=== PATIENT | male | born 1950 | race Caucasian/White ===

== ENCOUNTER 2017-10-23 15:07 | Observation (INO) | payer OTHER ==
[~2017-10-23] VITALS: Ht 180.3 cm; Wt 133.0 kg
[~2017-10-23 15:07] MED LIST: ASPEC325 PO; HYDR-3714 PO; IPRA1AER2 INH; METH500T37 PO; TAMS0.4C38 PO; TEMA30CA4 PO
--- NOTE | 2017-10-23 15:58 | DIAGNOSTIC IMAGING REPORT ---
CHEST ONE VIEW PORTABLE CLINICAL HISTORY: Atypical chest pain COMPARISON STUDY: 08/13/2015 FINDINGS: The heart is mildly enlarged. There is no focal pulmonary consolidation. Slight interstitial prominence is likely accentuated by the patient's large body habitus. There is no overt failure. There are no pleural effusions.[ IMPRESSION: Technically limited study due to the patient's large body habitus. No acute findings. Electronically signed by: Benitez Givens M.D. 10/23/2017 3:57 PM Dictated Date/Time: 10/23/2017 3:56 PM
[2017-10-23 16:03] LABS: BASO % 0.2 %; BASO ABS # 0.01 K/uL (0-0.2); EOS % 2.3 %; EOS ABS # 0.14 K/uL (0-0.5); HEMATOCRIT 43.6 % (42-52); HEMOGLOBIN 14.8 g/dL (14.0-18.0); IG# 0.01 K/uL (0.00-0.02); LYMPH % 30.2 %; LYMPH ABS # 1.87 K/uL (1.2-3.4); MEAN CORPUSCULAR HEMOGLOBIN 31.2 pg (25-34); MEAN CORPUSCULAR HGB CONC 33.9 g/dl (32-36); MEAN PLATELET VOLUME 11.4 fL (7.4-10.4); MONO % 8.1 %; NEUT ABS # 3.66 K/uL (1.4-6.5); PLATELET COUNT 179 K/uL (130-400); RED CELL DISTRIBUTION WIDTH CV 14.1 % (11.5-14.5); RED CELL DISTRIBUTION WIDTH SD 47.6 fL (36.4-46.3); WHITE BLOOD COUNT 6.19 K/uL (4.8-10.8)
[2017-10-23 16:21] LABS: BLOOD UREA NITROGEN 14 mg/dl (7-18); CALCIUM 8.6 mg/dl (8.5-10.1); CARBON DIOXIDE 26 mmol/L (21-32); GLUCOSE 87 mg/dl (70-99); POTASSIUM 4.2 mmol/L (3.5-5.1); SODIUM 138 mmol/L (136-145)
[2017-10-23 16:26] LABS: CKMB 2.1 ng/ml (0.5-3.6)
[2017-10-23] MEDS ORDERED: ALUMINUM/MAGNESIUM/SIMETH (MAALOX MAX) 30 ML UDC PO PRN (17:30)
[2017-10-23] MEDS ORDERED: ONDANSETRON INJ 2 MG/ML 2 ML VIAL IV PRN (17:30)
[2017-10-23] MEDS ORDERED: NITROGLYCERIN 0.4 MG SL PER TAB CHARGE SL PRN (17:30)
[2017-10-23] MEDS ORDERED: POLYETHYLENE (MIRALAX) 17 GM PACK PO PRN (17:30)
[2017-10-23] MEDS ORDERED: MAGNESIUM HYDROXIDE SUSP 30 ML UDC PO PRN (17:30)
[2017-10-23] MEDS ORDERED: ACETAMINOPHEN 325 MG TAB PO PRN (17:30)
[2017-10-23] MEDS ORDERED: METH500T PO (17:56)
[2017-10-23] MEDS ORDERED: ALBU18002 INH (17:56)
[2017-10-23] MEDS ORDERED: NYSS/ PO (17:56)
[2017-10-23] MEDS ORDERED: TRAM-10 PO (17:56)
[2017-10-23] MEDS ORDERED: IPRASOL4 INH (17:56)
[2017-10-23] MEDS ORDERED: ALBUT/IPRATROP 3MG/0.5MG NEB 3 ML VIAL INH PRN (18:00)
[2017-10-23] MEDS ORDERED: TRAMADOL HCL 50 MG TAB PO PRN (18:00)
[2017-10-23] MEDS ORDERED: METHOCARBAMOL 500 MG TAB PO PRN (18:00)
[2017-10-23] MEDS ORDERED: ALBUTEROL HFA 8 GM INHALER INH PRN (18:00)
[2017-10-23] MEDS ORDERED: FUROSEMIDE 40 MG TAB PO ONE (18:00)
--- NOTE | 2017-10-23 18:04 | History and Physical ---
History & Physical Date & Time of Service: Oct 23, 2017 at 17:57 Chief Complaint: Shortness Of Breath - Referred By Dr. Barker Primary Care Physician: Larry Saravia History of Present Illness Source: patient This is a 67-year-old male with a past medical history of CAD (s/p stent in 2011 ), COPD, morbid obesity, tobacco use disorder and other medical problems listed below who presents with worsening shortness of breath 1 month. Patient was evaluated by cardiology clinic today and was sent over for further workup. States that he was short of breath earlier this month, when he was diagnosed with bronchitis and treated with an IM steroid dose, a course of azithromycin and oral prednisone. Patient continued to experience worsening shortness of breath at rest as well as a productive cough with clear sputum. Endorses orthopnea and PND as well as a 15 lb weight gain over the past month. Has been sleeping upright in his recliner at night. Noticed swelling in his legs recently. Endorses a high sodium diet. Has over 50 pack years and continues to smoke 1 pack a day. Has a history of BRIAN but was not able to tolerate CPAP. Sleep study was performed over 6 years ago. Per girlfriend, patient is very tired during the day and sometimes falls asleep mid-conversation. Denies any history of DVT/PE. Denies fever, chills, headache, lightheadedness, chest pain , palpitations, abdominal pain, nausea, vomiting, bowel or bladder changes, or numbness numbness/tingling in extremities. Follows with Dr. Luciano for pulm and Dr. Barker for cardiology. In ED, CXR was without evidence of pulmonary edema or infiltrate. BNP was within normal limits at 440. D dimer was elevated to 990. Chest/thorax CTA pending. Past Medical/Surgical History Medical Problems: (1) BPH (benign prostatic hyperplasia) Status: Chronic (2) CAD (coronary artery disease) Permanent Comment: s/p stent in 2011 Status: Chronic (3) Chronic back pain Status: Chronic (4) COPD (chronic obstructive pulmonary disease) Status: Chronic (5) HLD (hyperlipidemia) Status: Chronic (6) Morbid obesity Status: Chronic (7) BRIAN (obstructive sleep apnea) Status: Chronic (8) Tobacco abuse disorder Status: Chronic Surgical Problems: (1) Presence of coronary angioplasty implant and graft Status: Chronic Family History Cancer Social History Smoking Status: Current Every Day Smoker Marital Status: in relationship Allergies Coded Allergies: Simvastatin (Verified Allergy, Mild, MUSCLE ACHES, 10/23/17) Home Medications Scheduled Nystatin (Nystatin Suspension), 5 ML PO QID Tamsulosin Hcl (Flomax), 0.4 MG PO QPM Scheduled PRN Albuterol Sulfate (Proair Respiclick), 2 PUFFS INH Q4 PRN for SOB/Wheezing Ipratropium-Albuterol (Duoneb), 1 TREATMENT INH Q4H PRN for SOB/Wheezing Methocarbamol (Robaxin), 1 TAB PO QID PRN for Muscle Spasms Tramadol (Ultram), 50 MG PO Q6 PRN for Pain Review of Systems Ten systems reviewed and negative except as noted in the HPI. Physical Exam Vital Signs Date Time Temp Pulse Resp B/P (MAP) Pulse Ox O2 Delivery O2 Flow Rate FiO2 10/23/17 17:37 72 28 98 10/23/17 17:07 60 18 95 10/23/17 16:37 68 21 95 10/23/17 16:28 64 10/23/17 16:07 65 19 97 10/23/17 15:55 93 Room Air 10/23/17 15:55 95 Room Air 10/23/17 15:15 36.6 56 19 148/75 95 Room Air General Appearance: no apparent distress, + obese Head: normocephalic, atraumatic Eyes: normal inspection, PERRL, sclerae normal ENT: normal ENT inspection, hearing grossly normal, pharynx normal, + nasal congestion Neck: thyroid normal, trachea midline Respiratory/Chest: chest non-tender, no respiratory distress, no accessory muscle use, + wheezing (scattered expiratory wheezes) Cardiovascular: regular rate, rhythm, no murmur, normal peripheral pulses, + pertinent finding (Trace BLE edema ) Abdomen/GI: non tender, soft, no organomegaly Back: normal inspection Extremities/Musculoskelatal: normal inspection, no calf tenderness, no pedal edema, non-tender Neurologic/Psych: no motor/sensory deficits, alert, normal mood/affect, oriented x 3 Skin: normal color, warm/dry Diagnostics Laboratory Results Results Past 24 Hours Test 10/23/17 15:45 Range/Units White Blood Count 6.19 4.8-10.8 K/uL Red Blood Count 4.74 4.7-6.1 M/uL Hemoglobin 14.8 14.0-18.0 g/dL Hematocrit 43.6 42-52 % Mean Corpuscular Volume 92.0 80-100 fL Mean Corpuscular Hemoglobin 31.2 25-34 pg Mean Corpuscular Hemoglobin Concent 33.9 32-36 g/dl Platelet Count 179 130-400 K/uL Mean Platelet Volume 11.4 7.4-10.4 fL Neutrophils (%) (Auto) 59.0 % Lymphocytes (%) (Auto) 30.2 % Monocytes (%) (Auto) 8.1 % Eosinophils (%) (Auto) 2.3 % Basophils (%) (Auto) 0.2 % Neutrophils # (Auto) 3.66 1.4-6.5 K/uL Lymphocytes # (Auto) 1.87 1.2-3.4 K/uL Monocytes # (Auto) 0.50 0.11-0.59 K/uL Eosinophils # (Auto) 0.14 0-0.5 K/uL Basophils # (Auto) 0.01 0-0.2 K/uL RDW Standard Deviation 47.6 36.4-46.3 fL RDW Coefficient of Variation 14.1 11.5-14.5 % Immature Granulocyte % (Auto) 0.2 % Immature Granulocyte # (Auto) 0.01 0.00-0.02 K/uL D-Dimer 990 0-500 ug/L FEU Sodium Level 138 136-145 mmol/L Potassium Level 4.2 3.5-5.1 mmol/L Chloride Level 106 98-107 mmol/L Carbon Dioxide Level 26 21-32 mmol/L Anion Gap 6.0 3-11 mmol/L Blood Urea Nitrogen 14 7-18 mg/dl Creatinine 0.80 0.60-1.40 mg/dl Est Creatinine Clear Calc Drug Dose 124.6 ml/min Estimated GFR () 106.4 Estimated GFR (Non- 91.8 BUN/Creatinine Ratio 17.5 10-20 Random Glucose 87 70-99 mg/dl Calcium Level 8.6 8.5-10.1 mg/dl Total Creatine Kinase 152 39-308 U/L Creatine Kinase MB 2.1 0.5-3.6 ng/ml Creatine Kinase MB Ratio 1.4 0-3.0 Troponin I < 0.015 0-0.045 ng/ml Pro-B-Type Natriuretic Peptide 440 0-900 pg/ml Diagnostic Radiology CXR: IMPRESSION: Technically limited study due to the patient's large body habitus. No acute findings. EKG Sinus rhythm with Premature atrial complexes Left anterior fascicular block Left axis deviation Abnormal ECG When compared with ECG of 09-FEB-2008 15:18, Premature atrial complexes are now Present Confirmed by cardiology Impression Assessment and Plan This is a 67-year-old male with a past medical history of CAD (s/p stent in 2011 ), COPD, morbid obesity, tobacco use disorder and other medical problems listed below who presents with worsening shortness of breath 1 month. SOB/dyspnea on exertion: -Productive cough, 15lb weight gain, orthopnea, fatigue -Likely multifactorial: COPD, obesity hypoventilation syndrome, BRIAN (cannot tolerate cpap) -Does not appear volume overloaded on exam -CXR without evidence of effusion or infiltrate -BNP normal at 440. Troponin negative -No leukocytosis -D dimer positive -Work up: -Chest/thorax CTA pending to r/o PE -Resting echo to assess for CHF -Nocturnal pulse ox to assess BRIAN -Consulted pulm, cardio -Low Na diet -Lasix 40mg daily -Strict weights, I&Os -Home nebs PRN CAD (s/p stent to RCA in 2011): -Denies chest pain -EKG with normal sinus with occasional PACs. Left anterior fascicular block previously noted -Initial troponin negative. Cycle enzymes COPD: -Scattered wheezing on exam -Cont home inhaler, nebs -O2 saturations in 90s on room air BRIAN: -Sleep study performed >6 yrs prior -Instructed to wear cpap but unable to tolerate -Nocurnal pulse ox -Plan for out-patient sleep study Tobacco use disorder: -Smoking cessation counseling provided Chronic back pain: -Cont methocarbamol, tramadol PRN -Encouraged ambulation Oral thrush: -2/2 recent antibiotics -Cont nystatin swish and swallow BPH: -Cont tamsulosin DVT Ppx: SQ heparin Code status: FULL PCP: Emanuel Dispo: Telemetry for observation. Plan to return home once medically stable. Patient seen in collaboration with Dr. Hudson. Please see addendum. ATTENDING ADDENDUM Patient seen and examined, care coordinated with Yesika Harper PA-C 67-year-old patient with history of tobacco abuse disorder [id number], history of chronic ischemic heart disease, was seen at cardiology officeDr. Barker today for symptoms of dyspnea on exertion/orthopnea/increased weight gain Chest x-ray in the ER shows no evidence of effusion or infiltrate ProBNP was within normal limit D-dimer was elevated to 990 CT chest with contrast ordered by ER physician report still pending PHYSICAL EXAM: Please refer physical exam done by Trice Harper PA-C ASSESSMENT AND PLAN 1. SHORTNESS OF BREATH/DYSPNEA ON EXERTION/ORTHOPNEA: -Patient does not appear to be in acute CHF Although very difficult to assess volume status secondary to morbid obesity/ body habitus -Images and lab proBNP negative for heart failure -Patient had left and right cardiac cath done in April 2012.at [facility] Normal left and right heart filling pressure noted -Patient reports of sleeping on a recliner, waking up multiple times at night gasping for air patient's reports, increased daytime somnolence, patient noted to fall asleep during conversation. -Had a sleep study done a few years back, was prescribed CPAP Which has been discontinued as-patient could not tolerate CPAP mask, -Pulmonology eval requested -Ordered for nocturnal pulse oximetry to assess for obstructive sleep apnea HISTORY OF CORONARY ARTERY DISEASE: History of RCA [place] with total proximal occlusion of right coronary arterychronic occlusion cardiac cath in 2011 Showed 50% stenosis of small obtuse marginal branch which was not amenable to PCI -Patient been on medical management -Denies of any anginal symptoms -Twelve-lead EKG shows normal sinus with occasional PAC, unchanged from prior -Initial cardiac marker negative -Serial troponin will be checked every 6 hours -Resting echo ordered -Cardiology requested TOBACCO ABUSE DISORDER Smoking cessation counseling provided Full code DVT prophylaxis: Moderate to high risk secondary to body habitus Subcu heparin Please refer to refer to documentation by Yesika Harper PA-C for discussion of other chronic issues Estefanía Hudson MD :: Resuscitation Status VTE Prophylaxis Will order VTE Prophylaxis: Yes
--- NOTE | 2017-10-23 18:08 | Progress Note ---
Progress Note Date of Service Oct 23, 2017. Progress Note ATTENDING ADDENDUM Patient seen and examined, care coordinated with Yesika Harper PA-C 67-year-old patient with history of tobacco abuse disorder [id number], history of chronic ischemic heart disease, was seen at cardiology officeDr. Barker today for symptoms of dyspnea on exertion/orthopnea/increased weight gain Chest x-ray in the ER shows no evidence of effusion or infiltrate ProBNP was within normal limit D-dimer was elevated to 990 CT chest with contrast ordered by ER physician report still pending PHYSICAL EXAM: Please refer physical exam done by Trice Harper PA-C ASSESSMENT AND PLAN 1. SHORTNESS OF BREATH/DYSPNEA ON EXERTION/ORTHOPNEA: -Patient does not appear to be in acute CHF Although very difficult to assess volume status secondary to morbid obesity/ body habitus -Images and lab proBNP negative for heart failure -Patient had left and right cardiac cath done in April 2012.at [facility] Normal left and right heart filling pressure noted -Patient reports of sleeping on a recliner, waking up multiple times at night gasping for air patient's reports, increased daytime somnolence, patient noted to fall asleep during conversation. -Had a sleep study done a few years back, was prescribed CPAP Which has been discontinued as-patient could not tolerate CPAP mask, -Pulmonology eval requested -Ordered for nocturnal pulse oximetry to assess for obstructive sleep apnea HISTORY OF CORONARY ARTERY DISEASE: History of RCA [place] with total proximal occlusion of right coronary arterychronic occlusion cardiac cath in 2011 Showed 50% stenosis of small obtuse marginal branch which was not amenable to PCI -Patient been on medical management -Denies of any anginal symptoms -Twelve-lead EKG shows normal sinus with occasional PAC, unchanged from prior -Initial cardiac marker negative -Serial troponin will be checked every 6 hours -Resting echo ordered -Cardiology requested TOBACCO ABUSE DISORDER Smoking cessation counseling provided Full code DVT prophylaxis: Moderate to high risk secondary to body habitus Subcu heparin Please refer to refer to documentation by Yesika Harper PA-C for discussion of other chronic issues Estefanía Hudson MD ::
[2017-10-23] MEDS ORDERED: OPTIRAY 320 IV PRN (18:15)
--- NOTE | 2017-10-23 18:41 | DIAGNOSTIC IMAGING REPORT ---
CT ANGIOGRAM OF THE CHEST CLINICAL HISTORY: Atypical chest pain and shortness of breath COMPARISON STUDY: Chest x-ray dated 10/23/2017, chest CT dated 01/09/2008 TECHNIQUE: Following the IV administration of 94 mL of Optiray-320, CT angiogram of the thorax was performed from the thoracic inlet to the lung bases utilizing the pulmonary embolus protocol. Images are reviewed in the axial, sagittal, and coronal planes. IV contrast was administered without complication. MIP imaging was performed. A dose lowering technique was utilized adhering to the principles of ALARA. CT DOSE: 835.10 mGy.cm FINDINGS: There is a stable thyroid goiter Minimally enlarged mediastinal lymph nodes remain stable. There was no evidence of thoracic aortic dilatation. There were no pulmonary artery filling defects to indicate acute pulmonary embolism. No pleural effusions are visualized. There are mild dependent atelectatic changes. There is mild respiratory motion artifact. There is no focal pulmonary consolidation. The trachea is favored shaped, and there is diffuse narrowing of the left mainstem bronchus. 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 There is a solid 8 mm right lower lobe pulmonary nodule as visualized in image #[id number]. This nodule measured 3 mm in 2008. A slowly growing neoplasm is the diagnosis of exclusion. Nonemergent pelvic consultation is recommended. IMPRESSION: 1. No evidence of acute pulmonary embolism 2. Slowly growing 8 mm solid right lower lobe pulmonary nodule. A slowly growing neoplasm is the diagnosis of exclusion 3. Stable mild mediastinal lymphadenopathy 4. Thyroid goiter 5. Saber shaped trachea. Narrowing of the AP diameter of the left mainstem bronchus, possibly secondary to bronchomalacia Electronically signed by: Benitez Givens M.D. 10/23/2017 6:39 PM Dictated Date/Time: 10/23/2017 6:27 PM
[2017-10-23 19:02] VITALS: BP 155/79; PULSE 55; TEMP 36.8; O2SAT 95
[2017-10-23 19:53] VITALS: BP 155/79; PULSE 55; TEMP 36.8; O2SAT 95; Ht 180.3 cm; Wt 133.0 kg
--- NOTE | 2017-10-23 19:54 | EMERGENCY ROOM VISIT NOTE ---
History Report prepared by Sonia: Trice Smart Under the Supervision of: Dr. Domo Pelayo D.O. First contact with patient: 15:11 Chief Complaint: SHORTNESS OF BREATH Stated Complaint: SHORTNESS OF BREATH - REFERRED BY DR. NUNEZ History of Present Illness The patient is a 67 year old male who presents to the Emergency Room with complaints of worsening shortness of breath for the past month. He has been following up with pulmonology and cardiology for his symptoms and they are unsure if the problem is his heart or his lungs. He was seen by the energy efficiency finance manager , Dr. Nunez, today and sent to the ED for further evaluation. The patient reports shortness of breath that is worsened with exertion. His symptoms are worsened with laying down and he states that he has been sleeping sitting up in his recliner because he cannot lay flat. He has had a recent 15 pound weight gain over the past two months. He also reports some swelling to his legs bilaterally. He has had a chronic cough for years and denies any changes to his cough or new sputum. The patient denies shortness of breath with rest. Pt denies headache, change in vision, fevers, chest pain, nausea, vomiting, diarrhea, pain with urination, and melena. The patient has a history of an NH with stents. He spokes 1 pack per day. Source of History: patient Onset: 1 month ago Position: chest Quality: other (shortness of breath) Timing: worsening Modifying Factors (Worsening): exertion, other (laying flat) Associated Symptoms: No fevers, No headache, No chest pain, No nausea, No vomiting, No melena, No diarrhea, No urinary symptoms Note: Pt notes recent weight gain. Pt c/o bilateral leg swelling. Review of Systems See HPI for pertinent positives & negatives. A total of 10 systems reviewed and were otherwise negative. Past Medical & Surgical Medical Problems: (1) BPH (benign prostatic hyperplasia) (2) CAD (coronary artery disease) (3) Chronic back pain (4) COPD (chronic obstructive pulmonary disease) (5) HLD (hyperlipidemia) (6) Morbid obesity (7) BRIAN (obstructive sleep apnea) (8) Tobacco abuse disorder Surgical Problems: (1) Presence of coronary angioplasty implant and graft Family History Cancer Social History Smoking Status: Current Every Day Smoker Marital Status: Housing Status: lives with significant other Occupation Status: retired Current/Historical Medications Scheduled Nystatin (Nystatin Suspension), 5 ML PO QID Tamsulosin Hcl (Flomax), 0.4 MG PO QPM Scheduled PRN Albuterol Sulfate (Proair Respiclick), 2 PUFFS INH Q4 PRN for SOB/Wheezing Ipratropium-Albuterol (Duoneb), 1 TREATMENT INH Q4H PRN for SOB/Wheezing Methocarbamol (Robaxin), 1 TAB PO QID PRN for Muscle Spasms Tramadol (Ultram), 50 MG PO Q6 PRN for Pain Allergies Coded Allergies: Simvastatin (Verified Allergy, Mild, MUSCLE ACHES, 10/23/17) Physical Exam Vital Signs Date Time Temp Pulse Resp B/P (MAP) Pulse Ox O2 Delivery O2 Flow Rate FiO2 10/23/17 17:07 60 18 95 10/23/17 16:37 68 21 95 10/23/17 16:28 64 10/23/17 16:07 65 19 97 10/23/17 15:55 93 Room Air 10/23/17 15:55 95 Room Air 10/23/17 15:15 36.6 56 19 148/75 95 Room Air Physical Exam GENERAL: Sitting up in bed, alert, well appearing, morbidly obese, no distress, non-toxic, talking in full sentences. EYE EXAM: normal conjunctiva. OROPHARYNX: no exudate, no erythema, lips, buccal mucosa, and tongue normal and mucous membranes are moist NECK: supple, no nuchal rigidity, no adenopathy, non-tender, no JVD. LUNGS: Diminished bilaterally. Normal chest wall mechanics HEART: no murmurs, S1 normal and S2 normal ABDOMEN: abdomen soft, non-tender, normo-active bowel sounds, no masses, no rebound or guarding. BACK: Back is symmetrical on inspection and there is no deformity, no midline tenderness, no CVA tenderness. SKIN: no rashes and no bruising UPPER EXTREMITIES: upper extremities are grossly normal. LOWER EXTREMITIES: Pedal edema bilaterally, calves equal bilaterally. NEURO EXAM: Normal sensorium, cranial nerves II-XII grossly intact, normal speech, no gross weakness of arms, no gross weakness of legs. Medical Decision & Procedures ER Provider Diagnostic Interpretation: Radiology results as stated below per my review and the radiologist's interpretation: CHEST ONE VIEW PORTABLE CLINICAL HISTORY: Atypical chest pain COMPARISON STUDY: 08/13/2015 FINDINGS: The heart is mildly enlarged. There is no focal pulmonary consolidation. Slight interstitial prominence is likely accentuated by the patient's large body habitus. There is no overt failure. There are no pleural effusions.[ IMPRESSION: Technically limited study due to the patient's large body habitus. No acute findings. Electronically signed by: Benitez Givens M.D. 10/23/2017 3:57 PM Dictated Date/Time: 10/23/2017 3:56 PM Laboratory Results 10/23/17 15:45 Red Blood Count 4.74, Mean Corpuscular Volume 92.0, Mean Corpuscular Hemoglobin 31.2, Mean Corpuscular Hemoglobin Concent 33.9, Mean Platelet Volume 11.4, Neutrophils (%) (Auto) 59.0, Lymphocytes (%) (Auto) 30.2, Monocytes (%) (Auto) 8.1, Eosinophils (%) (Auto) 2.3, Basophils (%) (Auto) 0.2, Neutrophils # (Auto) 3.66, Lymphocytes # (Auto) 1.87, Monocytes # (Auto) 0.50, Eosinophils # (Auto) 0.14, Basophils # (Auto) 0.01 10/23/17 15:45 Test 10/23/17 15:45 White Blood Count 6.19 K/uL (4.8-10.8) Red Blood Count 4.74 M/uL (4.7-6.1) Hemoglobin 14.8 g/dL (14.0-18.0) Hematocrit 43.6 % (42-52) Mean Corpuscular Volume 92.0 fL (80-100) Mean Corpuscular Hemoglobin 31.2 pg (25-34) Mean Corpuscular Hemoglobin Concent 33.9 g/dl (32-36) Platelet Count 179 K/uL (130-400) Mean Platelet Volume 11.4 fL (7.4-10.4) Neutrophils (%) (Auto) 59.0 % Lymphocytes (%) (Auto) 30.2 % Monocytes (%) (Auto) 8.1 % Eosinophils (%) (Auto) 2.3 % Basophils (%) (Auto) 0.2 % Neutrophils # (Auto) 3.66 K/uL (1.4-6.5) Lymphocytes # (Auto) 1.87 K/uL (1.2-3.4) Monocytes # (Auto) 0.50 K/uL (0.11-0.59) Eosinophils # (Auto) 0.14 K/uL (0-0.5) Basophils # (Auto) 0.01 K/uL (0-0.2) RDW Standard Deviation 47.6 fL (36.4-46.3) RDW Coefficient of Variation 14.1 % (11.5-14.5) Immature Granulocyte % (Auto) 0.2 % Immature Granulocyte # (Auto) 0.01 K/uL (0.00-0.02) Prothrombin Time 10.1 SECONDS (9.0-12.0) Prothromb Time International Ratio 1.0 (0.9-1.1) D-Dimer 990 ug/L FEU (0-500) Anion Gap 6.0 mmol/L (3-11) Est Creatinine Clear Calc Drug Dose 124.6 ml/min Estimated GFR () 106.4 Estimated GFR (Non- 91.8 BUN/Creatinine Ratio 17.5 (10-20) Calcium Level 8.6 mg/dl (8.5-10.1) Total Creatine Kinase 152 U/L (39-308) Creatine Kinase MB 2.1 ng/ml (0.5-3.6) Creatine Kinase MB Ratio 1.4 (0-3.0) Troponin I < 0.015 ng/ml (0-0.045) Pro-B-Type Natriuretic Peptide 440 pg/ml (0-900) Laboratory results per my review. ECG Per My Interpretation Indication: SOB/dyspnea Rate (beats per minute): 63 Rhythm: sinus rhythm Findings: PAC, Q waves (Inferior), left axis deviation ED Course ED COURSE: Vital signs were reviewed and showed normal vitals. The patients medical record was reviewed The above diagnostic studies were performed and reviewed. ED treatments and interventions as stated above. 1530: The patient was evaluated in room B2. A complete history and physical examination was performed. 1645: Upon reevaluation, the patient is resting comfortably. I discussed my findings with the patient and he understands and agrees with the treatment plan. Based on the patients age, coexisting illnesses, exam and lab findings the decision to treat as an inpatient was made. The patient remained stable while under my care. The patient will be evaluated for further management. 1659: I spoke with Dr. Hudson. We discussed the patient's case. [facility]. Medical Decision Differential diagnoses includes but is not limited to pneumonia, bronchitis, COPD/Asthma exacerbation, pneumothorax, pulmonary embolism, congestive heart failure, acute coronary syndrome. Patient is a 59-year-old male that presents to ER for dyspnea on exertion. Patient has been worked up extensively by pulmonology and cardiology. He was sent over by cardiology's office for admission and further workup. EKG appears to be a sinus rhythm with sinus arrhythmia. Upon presentation to the ER had no chest pain. He was asymptomatic at rest. CBC along with BMP, and troponin were negative. D-dimer was elevated consummately CT PE was performed just following admission. It did result and showed likely cancer. Medication Reconcilliation Current Medication List: was personally reviewed by me Blood Pressure Screening Patient's blood pressure: Normal blood pressure Consults Time Called: 1655 Consulting Physician: Dr. Hudson Returned Call: [address] Hudson. We discussed the patient's case. [facility]. Impression Primary Impression: WAY (dyspnea on exertion) Scribe Attestation The scribe's documentation has been prepared under my direction and personally reviewed by me in its entirety. I confirm that the note above accurately reflects all work, treatment, procedures, and medical decision making performed by me. Departure Information Dispostion Being Evaluated By Hospitalist Referrals De Castellanos M.D. (PCP) Patient Instructions My [facility]
[2017-10-23 20:00] VITALS: O2SAT 95
[2017-10-23] MEDS ORDERED: IV FLUIDS COMPLETED PRN (20:15)
--- NOTE | 2017-10-23 20:34 | Progress Note ---
Progress Note Date of Service Oct 23, 2017. Progress Note CT CHEST WITH CONTRAST RESULT REVIEWED : There is a solid 8 mm right lower lobe pulmonary nodule as visualized in image #[id number]. This nodule measured 3 mm in 2007. A slowly growing neoplasm is the diagnosis of exclusion -pulmonology consulted already -given hx of heaving smoking 50 pk/yr may benefit with bronchoscopic biopsy
[2017-10-23] MEDS ORDERED: TAMSULOSIN HCL 0.4 MG CAP PO SCH (21:00)
[2017-10-23] MEDS: NYSTATIN SUSP 500,000 U/5 ML UDC PO SCH (21:54)
[2017-10-23] MEDS: HEPARIN SOD 5000 UNIT/0.5 ML CARP SQ SCH (21:57)
[2017-10-23 23:11] VITALS: BP 134/73; PULSE 81; TEMP 36.4; O2SAT 91
[2017-10-24 02:45] VITALS: BP 106/67; PULSE 55; TEMP 36.5; O2SAT 96
[2017-10-24 05:27] LABS: HEMATOCRIT 45.7 % (42-52); HEMOGLOBIN 15.4 g/dL (14.0-18.0); MEAN CELL VOLUME 91.2 fL (80-100); MEAN CORPUSCULAR HEMOGLOBIN 30.7 pg (25-34); MEAN CORPUSCULAR HGB CONC 33.7 g/dl (32-36); MEAN PLATELET VOLUME 11.7 fL (7.4-10.4); PLATELET COUNT 169 K/uL (130-400); RED CELL DISTRIBUTION WIDTH CV 13.9 % (11.5-14.5); RED CELL DISTRIBUTION WIDTH SD 46.8 fL (36.4-46.3); WHITE BLOOD COUNT 5.87 K/uL (4.8-10.8)
[2017-10-24] MEDS: HEPARIN SOD 5000 UNIT/0.5 ML CARP SQ SCH ×2 (05:30→13:15)
[2017-10-24 05:34] VITALS: PULSE 58; O2SAT 94
[2017-10-24 05:53] LABS: BLOOD UREA NITROGEN 12 mg/dl (7-18); CALCIUM 8.4 mg/dl (8.5-10.1); CARBON DIOXIDE 27 mmol/L (21-32); CREATININE 0.78 mg/dl (0.60-1.40); GLUCOSE 95 mg/dl (70-99); POTASSIUM 3.7 mmol/L (3.5-5.1); SODIUM 137 mmol/L (136-145)
[2017-10-24 05:58] LABS: CHOLESTEROL 196 mg/dl (0-200); LDL CHOLESTEROL CALCULATED 122 mg/dl
[2017-10-24 06:02] VITALS: BP 128/93; PULSE 54; TEMP 36.6; O2SAT 92
[2017-10-24] MEDS: NYSTATIN SUSP 500,000 U/5 ML UDC PO SCH ×3 (08:41→17:00)
[2017-10-24] MEDS ORDERED: PERFLUTREN LIPID MICROSPHERE (DEFINITY) IV ONE (08:59)
[2017-10-24] MEDS ORDERED: FUROSEMIDE 40 MG TAB PO SCH (09:00)
[2017-10-24] MEDS ORDERED: ASPIRIN 81 MG ECTAB PO SCH (09:00)
[2017-10-24 11:22] VITALS: BP 119/80; PULSE 89; TEMP 36.6; O2SAT 93
--- NOTE | 2017-10-24 11:35 | Cardiology Consultation ---
Cardiology Consultation Date of Consultation: Oct 24, 2017 Requesting Physician: Tristan Attending Granite Setter: Piotr (Yaakov Garner PA-C) History of Present Illness Mr. Gunter is a 67-year-old male who is being seen at the request of Dr. Hudson. Reason for consultation is shortness of breath. Mr. Gunter notes chronic shortness of breath for at least the last 2 years. He notes previously following with Dr. Luciano, undergoing bronchoscopy as well as PFTs with only mild pulmonary disease reported. He is now being followed by Dr. Vincent. Patient describes having long-standing exertional dyspnea. He notes that there are days that he can walk around [employer] without any difficulty and there are other days it is not able to walk to the back of the store without having to stop and rest. 2 weeks ago he describes having a bad cold, symptoms sounding like a COPD exacerbation, requiring 2 courses of antibiotic and steroids with eventual improvement. Yesterday, he was evaluated by Dr. Barker and complained of progressive dyspnea for which he was referred to the ER for further evaluation and treatment. Should also be noted the patient's EKG was abnormal when evaluated by Dr. Barker, findings consistent with sinus rhythm with frequent premature atrial complexes. Chest x-ray was described as being technically limited though without acute findings. An elevated d-dimer led to a CT scan of the chest which was negative for acute PE. A slow-growing 8 mm solid right lower lobe pulmonary nodule was observed with stable mild mediastinal lymphadenopathy, thyroid goiter, and a saber- shaped trachea with narrowing of the AP diameter of the left mainstem bronchus, possibly secondary to bronchomalacia. EKG on presentation to the emergency room revealed sinus rhythm with premature atrial complexes, left anterior fascicular block. Complete blood count was without evidence of infection or significant anemia. Metabolic panel was within normal limits. Propine atretic peptide was normal at 440. Troponin I negative 3. Lipids demonstrated the following: Total cholesterol 196. LDL 122. HDL 39. Triglycerides 174. The patient denies chest pain. No palpitations. He has nocturnal symptoms suggestive of significant sleep apnea and not congestive heart failure. He denies abdominal bloating. He denies scrotal/penile edema. He denies lower extremity peripheral edema. (Yaakov Garner PA-C) Past Medical/Surgical History Problem List: ASCVD History of prior RCA infarct Total proximal RCA occlusion. Diagnostic cardiac catheterization last performed in April 2012 also revealed an 80% stenosis of the small obtuse marginal branch that was not felt to be amenable to PCI. Hemodynamic assessment at that time revealed normal left and right heart filling pressures Untreated obstructive sleep apnea, nocturnal hypoxemia COPD Chronic tobacco abuse Hypertension Dyslipidemia BPH Depression Anxiety (Yaakov Garner PA-C) Family History Cancer Mother of 89. Father at 67 from what the patient describes his complications of diabetes. One sister without cardiac issues. (Yaakov Garner PA-C) Cancer (Mayank Saldaña DO) Social History Smoker since his early teenage years, currently 1 pack per day. No smokeless tobacco use/abuse. Social alcohol, typically whiskey. 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 Smoking Status: Current Every Day Smoker Marital Status: Occupation: retired (Yaakov Garner PA-C) Review Of Systems Weight gain. Chronic back pain. Skin cancer. Colonic polyp. Complete review of system is otherwise as stated above, negative, noncontributory. (Yaakov Garner PA-C) Allergies Coded Allergies: Simvastatin (Verified Allergy, Mild, MUSCLE ACHES, 10/23/17) Medications Reported Home Medications Medications Dose Route/Sig Max Daily Dose Days Date Category Ultram (Tramadol HCl) 50 Mg Tab 50 Mg PO Q6 PRN 10/23/17 Reported Nystatin Suspension (Nystatin) 1 Ml Susp 5 Ml PO QID 10/23/17 Reported Robaxin (Methocarbamol) 500 Mg Tab 1 Tab PO QID PRN 30 10/23/17 Reported Duoneb (Ipratropium-Albuterol) 3 Ml Nebu 1 Treatment INH Q4H PRN 10/23/17 Reported Proair Respiclick (Albuterol Sulfate) 108 Mcg/Act Aer 2 Puffs INH Q4 PRN 10/23/17 Reported Flomax (Tamsulosin Hcl) 0.4 Mg Cap 0.4 Mg PO QPM 09/30/15 Reported (Yaakov Garner PA-C) Physical Exam Vital Signs (Last 8hrs): Last 8 Hrs Date Time Temp Pulse Resp B/P (MAP) Pulse Ox O2 Delivery O2 Flow Rate FiO2 10/24/17 08:00 Room Air 10/24/17 06:02 36.6 54 18 128/93 (105) 92 Room Air 10/24/17 05:34 58 16 94 Room Air 10/24/17 04:00 Room Air General Appearance: Alert and Oriented x3. NAD. Elevated BMI HEENT: Normocephalic Atraumatic. PER, EOMI, conjunctiva and sclera clear Neck: Quite thick. No carotid bruits. No JVD. No HJD. Respiratory: Diminished. Decreased. Expiratory wheezing. No rales. No dullness to percussion. Cardiovascular: Distant heart sounds. Irregular with ectopy. No murmurs appreciated. PMI not found. Abdomen: Obese. +BS. Soft. Nontender. Extremities: Trivial edema on the right. No edema on the left. No clubbing. No cyanosis. Distal pulses 1/4 bilaterally. Neuro: No focal deficits. Psychiatric: Normal affect. (Yaakov Garner, PAKellieC) Data Last 24 Hours Test 10/23/17 15:45 10/23/17 23:10 10/24/17 05:15 White Blood Count 6.19 K/uL 5.87 K/uL Red Blood Count 4.74 M/uL 5.01 M/uL Hemoglobin 14.8 g/dL 15.4 g/dL Hematocrit 43.6 % 45.7 % Mean Corpuscular Volume 92.0 fL 91.2 fL Mean Corpuscular Hemoglobin 31.2 pg 30.7 pg Mean Corpuscular Hemoglobin Concent 33.9 g/dl 33.7 g/dl Platelet Count 179 K/uL 169 K/uL Mean Platelet Volume 11.4 fL 11.7 fL Neutrophils (%) (Auto) 59.0 % Lymphocytes (%) (Auto) 30.2 % Monocytes (%) (Auto) 8.1 % Eosinophils (%) (Auto) 2.3 % Basophils (%) (Auto) 0.2 % Neutrophils # (Auto) 3.66 K/uL Lymphocytes # (Auto) 1.87 K/uL Monocytes # (Auto) 0.50 K/uL Eosinophils # (Auto) 0.14 K/uL Basophils # (Auto) 0.01 K/uL RDW Standard Deviation 47.6 fL 46.8 fL RDW Coefficient of Variation 14.1 % 13.9 % Immature Granulocyte % (Auto) 0.2 % Immature Granulocyte # (Auto) 0.01 K/uL Prothrombin Time 10.1 SECONDS Prothromb Time International Ratio 1.0 D-Dimer 990 ug/L FEU Sodium Level 138 mmol/L 137 mmol/L Potassium Level 4.2 mmol/L 3.7 mmol/L Chloride Level 106 mmol/L 103 mmol/L Carbon Dioxide Level 26 mmol/L 27 mmol/L Anion Gap 6.0 mmol/L 7.0 mmol/L Blood Urea Nitrogen 14 mg/dl 12 mg/dl Creatinine 0.80 mg/dl 0.78 mg/dl Est Creatinine Clear Calc Drug Dose 124.6 ml/min 127.6 ml/min Estimated GFR () 106.4 107.5 Estimated GFR (Non- 91.8 92.8 BUN/Creatinine Ratio 17.5 14.8 Random Glucose 87 mg/dl 95 mg/dl Calcium Level 8.6 mg/dl 8.4 mg/dl Total Creatine Kinase 152 U/L Creatine Kinase MB 2.1 ng/ml Creatine Kinase MB Ratio 1.4 Troponin I < 0.015 ng/ml < 0.015 ng/ml < 0.015 ng/ml Pro-B-Type Natriuretic Peptide 440 pg/ml Magnesium Level 2.4 mg/dl Triglycerides Level 174 mg/dl Cholesterol Level 196 mg/dl HDL Cholesterol 39 mg/dl LDL Cholesterol, Calculated 122 mg/dl VLDL Cholesterol, Calculated 35 mg/dl Cholesterol/HDL Ratio 5.0 Imaging: See above. EKG: See above. Telemetry: Sinus with frequent atrial ectopy in singles as well as couplets. Intermittent bradycardia down to 39 bpm during anticipated hours of sleep. Telemetry monitoring concerning for possible significant sleep apnea Nocturnal pulse oximetry demonstrated basal SPO2 of 94.4%. Time spent with SPO2 less than 88% was 24.1 minutes. There were 126 events less than 88%. Minimum SPO2 81%. Average to low SPO2 89.0%. Average low SPO2 less than 88% 85.5%. Low pulse rate 35 bpm. Average pulse rate 58.2 bpm. (Yaakov Garner PA-C) Assessment & Plan Admission with progressive exertional dyspnea. Symptoms suggest pulmonary etiology. Chest x-ray, BNP, and examination without evidence of acute decompensated heart failure. Chronic ASCVD, as detailed above. Frequent atrial ectopy, daytime and nocturnal bradycardia. COPD with ongoing tobacco abuse Untreated obstructive sleep apnea and nocturnal hypoxemia RECOMMENDATIONS: Await TTE interpretation Avoid beta-norm/rate lowering therapy. Trial Imdur 30 mg/day given symptoms and prior catheterization findings Add low dose Losartan, 12.5 mg/day given hypertension, ectopy, underlying CAD. No overt indication for permanent pacemaker implantation. Recommend further evaluation and treatment of the untreated sleep apnea and nocturnal hypoxemia (? BiPAP) Tobacco sensation (Yaakov Garner, ZAHIRA) Cardiology Attending Physician: Patient seen and examined at the bedside. Requesting discharge. No edema, orthopnea, or paroxysmal nocturnal dyspnea. Reports long-standing history of obstructive sleep apnea although he is intolerant to CPAP. Reports daytime somnolence and fatigue. Denies chest heaviness or tightness. Resting 2D transthoracic echo stable compared to prior study. No evidence of acute coronary syndrome. Patient reports lower extremity edema yesterday which is not apparent on exam currently. Daughter is present at bedside. Telemetry demonstrates sinus rhythm, PACs, short bursts of asymptomatic PAT as well as sinus bradycardia during presumed hours of sleep. No significant pauses or heart block recorded. PE: VSS. General: NAD, obese, awake alert oriented 3. Neck: Unable to assess JVD secondary to body habitus. Heart: Regular, normal S1, S2, no murmur, rub, gallop. Lungs: Clear bilateral, no rales, rhonchi, wheeze. Extremities: Trace pedal edema. A/P: Agree with above ZAHIRA history, physical exam, assessment and plan. Results of nocturnal pulse oximetry reviewed with patient. More than 24 minutes of hypoxia recorded. Recommend outpatient sleep medicine evaluation and possible repeat polysomnography. We will add low-dose ARB to improve blood pressure control in the setting of chronic coronary artery disease. Given nighttime bradycardia and hypoxemia will avoid beta-norm therapy currently. No further inpatient cardiac testing at this time. Thank you for allowing us to participate in the care of your patient. Vimal Saldaña DO, [facility] WITH [facility] (Mayank Saldaña DO)
[2017-10-24] MEDS ORDERED: ISOSORBIDE MONONITRATE 30 MG TABCR PO ONE (12:00)
--- NOTE | 2017-10-24 12:07 | ECHOCARDIOGRAM REPORT ---
*NOTICE TO RECEIVING [employer] This information is strictly Confidential and protected under [place] law. [place] law prohibits you from making any further disclosure of this information unless further disclosure is expressly permitted by the written consent of the person to whom it pertains or is authorized by law. A general authorization for the release of medical or other information is not sufficient for this purpose. Hospital accepts no responsibility if the information is made available to any other person, INCLUDING THE PATIENT. Interpretation Summary * Name: FELICITAS MEYER Study Date: 10/24/2017 07:46 AM BP: 128/93 mmHg * Patient Location: [facility]\S\N289\S\2 HR: 53 * : 1950 (M/d/yyyy) Gender: Male Height: 70 in * Age: 67 yrs Ethnicity: [place] Weight: 300 lb * Ordering Physician: Estefanía Hudson * Referring Physician: Donavan Barker D.O. * Performed By: Lucita Rodriguez RDCS * * Reason For Study: Dyspnea on Exertion * BSA: 2.5 m2 * The study was technically limited. * The study was technically difficult. * -- Conclusions -- * Ejection Fraction = 50-55%. * Regional wall motion abnormalities cannot be excluded due to limited visualization. * There is mild concentric left ventricular hypertrophy. * The right ventricular cavity size is normal (basal dimension <4.2 cm in right ventricular apical 4-chamber view). * The right ventricular systolic function is normal as assessed by tricuspid annular plane systolic excursion (TAPSE) (normal >1.5 cm). * Aortic valve sclerosis mild, without significant aortic valvular stenosis. * Diastolic dysfunction, Grade II (pseudonormalization pattern). Procedure Details * A complete two-dimensional transthoracic echocardiogram was performed (2D, M-mode, Doppler and color flow Doppler). * The study was technically difficult. * The study was technically difficult, but visualization was adequate with the administration of Definity ultrasound contrast. * There were technical limitations due to patient'sbody habitus * A contrast injection of Definity was performed to improve assessment of LV function. * Contrast was injected into an intravenous site in the right arm. * One vial of Definity ultrasound contrast was diluted in normal saline to a total volume of 10 ml. A total of '2' ml of solution was administered during imaging. * Lot # [id number] of Definity utilized for procedure. * Expiration date . * The attending nurse who injected the contrast agent was Francine Goldman RN. Left Ventricle * The left ventricle is normal in size. * There is no thrombus. * There is mild concentric left ventricular hypertrophy. * Ejection Fraction = 50-55%. * Left ventricular systolic function is normal. * Regional wall motion abnormalities cannot be excluded due to limited visualization. Right Ventricle * The right ventricular cavity size is normal (basal dimension <4.2 cm in right ventricular apical 4-chamber view). * The right ventricular systolic function is normal as assessed by tricuspid annular plane systolic excursion (TAPSE) (normal >1.5 cm). Atria * The left atrium is mildly dilated. * Right atrium not well visualized. * There is no evidence of atrial septal defect, but resolution does not allow assessment for a patent foramen ovale. Mitral Valve * There is mild to moderate mitral annular calcification. * There is no mitral valve stenosis. * Significant mitral regurgitation is absent. Tricuspid Valve * The tricuspid valve is not well visualized. * There is no tricuspid stenosis. * Significant tricuspid regurgitation is absent. Aortic Valve * The aortic valve is not well visualized. * Aortic valve sclerosis mild, without significant aortic valvular stenosis. * Aortic stenosis is absent. * There is no significant aortic regurgitation. Pulmonic Valve * The pulmonary valve is not well seen, but the Doppler examination is normal without significant regurgitation or stenosis. Great Vessels * The aortic root is normal size. Pericardium/Pleural * There is no pericardial effusion. Great Vessels * Normal inferior vena cava size and collapsability with sniff indicates a normal right atrial pressure of 3 mmHg Left Ventricular Diastolic Function * Diastolic dysfunction, Grade II (pseudonormalization pattern). MMode 2D Measurements and Calculations IVSd 1.2 cm IVSs 1.6 cm LVIDd 5.4 cm LVIDs 4.1 cm LVPWd 1.4 cm LVPWs 1.7 cm IVS/LVPW 0.91 FS 24.2 % EDV(Teich) 141.9 ml ESV(Teich) 74.1 ml EF(Teich) 47.8 % EDV(cubed) 158.2 ml ESV(cubed) 68.8 ml EF(cubed) 56.5 % % IVS thick 29.9 % % LVPW thick 25.8 % LV mass(C)d 300.3 grams LV mass(C)dI 121.1 grams/m\S\2 LV mass(C)s 287.5 grams LV mass(C)sI 116.0 grams/m\S\2 SV(Teich) 67.7 ml SI(Teich) 27.3 ml/m\S\2 SV(cubed) 89.5 ml SI(cubed) 36.1 ml/m\S\2 Ao root diam 3.6 cm Ao root area 10.0 cm\S\2 ACS 2.4 cm LA dimension 4.4 cm LA/Ao 1.2 LVAd ap4 41.1 cm\S\2 LVLd ap4 9.0 cm EDV(MOD-sp4) 156.0 ml EDV(sp4-el) 158.4 ml LVAs ap4 25.0 cm\S\2 LVLs ap4 8.2 cm ESV(MOD-sp4) 65.9 ml ESV(sp4-el) 64.8 ml EF(MOD-sp4) 57.7 % EF(sp4-el) 59.1 % LVAd ap2 38.5 cm\S\2 LVLd ap2 9.1 cm EDV(MOD-sp2) 136.8 ml EDV(sp2-el) 138.0 ml LVAs ap2 27.3 cm\S\2 LVLs ap2 7.7 cm ESV(MOD-sp2) 81.2 ml ESV(sp2-el) 82.0 ml EF(MOD-sp2) 40.6 % EF(sp2-el) 40.6 % LVLd %diff 1.1 % EDV(MOD-bp) 147.6 ml LVLs %diff -6.17 % ESV(MOD-bp) 74.9 ml EF(MOD-bp) 49.2 % SV(MOD-sp4) 90.0 ml SI(MOD-sp4) 36.3 ml/m\S\2 SV(MOD-sp2) 55.5 ml SI(MOD-sp2) 22.4 ml/m\S\2 SV(MOD-bp) 72.6 ml SI(MOD-bp) 29.3 ml/m\S\2 SV(sp4-el) 93.6 ml SI(sp4-el) 37.8 ml/m\S\2 SV(sp2-el) 56.0 ml SI(sp2-el) 22.6 ml/m\S\2 Doppler Measurements and Calculations MV E max licha 117.8 cm/sec MV A max licha 66.2 cm/sec MV E/A 1.8 MV dec time 0.22 sec Ao V2 max 153.6 cm/sec Ao max PG 9.4 mmHg Ao max PG (full) 6.5 mmHg LV V1 max PG 3.0 mmHg LV V1 max 86.2 cm/sec PA V2 max 99.2 cm/sec PA max PG 4.0 mmHg TR max licha 140.1 cm/sec
[2017-10-24 15:21] VITALS: BP 132/67; PULSE 68; TEMP 36.6; O2SAT 94
[2017-10-24] MEDS ORDERED: IMDSR30 PO (16:32)
[2017-10-24] MEDS ORDERED: ASPEC81 PO (16:32)
[2017-10-24] MEDS ORDERED: CZR25 PO (16:32)
--- NOTE | 2017-10-24 16:33 | Consultant Recommendations ---
Contracts Intern Recommendations Date of Service Oct 24, 2017. Contracts Intern Recommendations Pulmonary Follow up with Dr. Vincent November 26, 2017 at 3:30PM. [address], [place], [place]. [phone]
--- NOTE | 2017-10-24 16:33 | Discharge Instructions ---
Discharge Instructions Date of Service Oct 24, 2017. Admission Reason for Admission: WAY Discharge Discharge Diagnosis / Problem: Dyspnea on exertion Discharge Goals Goal(s): Therapeutic intervention Activity Recommendations Activity Limitations: resume your previous activity . Instructions / Follow-Up Instructions / Follow-Up Please follow up with Cardiology and Pulmonology as scheduled. Please see Dr. Jeong on October 31 at 2:15 PM for hospital follow up Please mention to your primary care physician the need for referral to a Sleep Medicine physician and to scheduled a polysomnogram/sleep study Current Hospital Diet Patient's current hospital diet: AHA Diet (Heart Healthy) Discharge Diet Recommended Diet: AHA Diet (Heart Healthy) Pending Studies Studies pending at discharge: no Laboratory Results Lipid Panel Test 10/24/17 05:15 Range/Units Triglycerides Level 174 H 0-150 mg/dl Cholesterol Level 196 0-200 mg/dl HDL Cholesterol 39 mg/dl Cholesterol/HDL Ratio 5.0 LDL Cholesterol, Calculated 122 mg/dl Medical Emergencies . Who to Call and When: Medical Emergencies: If at any time you feel your situation is an emergency, please call 911 immediately. . Non-Emergent Contact Non-Emergency issues call your: Primary Care Provider, [employer] . . "Provider Documentation" section prepared by Ruthy Vance. . Manager Mountain Recommendations Manager Mountain Recommendations: Pulmonary Follow up with Dr. Vincent November 26, 2017 at 3:30PM. [address], [place], [place]. [phone]
[2017-10-24 16:46] VITALS: BP 132/67; PULSE 68; TEMP 36.6; O2SAT 94
--- NOTE | 2017-10-24 18:45 | Pulmonary Consultation ---
History General Date of Service: Oct 24, 2017. Chief Complaint: Pulmonary nodule Stated Complaint: WAY HPI The patient is a 67 year old male who presents to [facility] with complaints of WAY. The patient's primary care provider is Larry Saravia. This is a pleasant male that presented with dyspnea with exertion. He has moderate to severe COPD and is followed with the pulmonary clinic outpatient. His last visit July [address] Vincent. He has had similar complaints of dyspnea with exertion that is chronic with progressive changes. Most recent FEV1 was 74% and patient was continued on Breo Ellipta. Patient was scheduled for follow-up within 4 months but was not in to see the pulmonary clinic in 2017. 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 We were consulted to comment on an 8 mm right lower lobe pulmonary nodule. Patient denies prior knowledge of a nodule. Review of CT scans show that there was a 3 mm nodule in the location of the right lower lobe in 2007. Patient did undergo bronchoscopy with Dr. Luciano in 2015 for shortness of breath. He was found to have considerable mucopurulent secretions in the left lung and also in the right lung but to a lesser extent. Pathology at that time was negative for malignancy. Patient has not undergone any further evaluation. The patient's home has never been tested for radon and he does not have a rate on mitigation system minutes at home. He also reports his home has never been tested for radon. He does have exposure to diesel fumes in addition to his chronic tobacco abuse. There is no family history of lung cancer however there is family history of breast cancer. The patient denies any prior history of thromboembolic disease or malignancy. 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 Luciano in 2016 Family History Cancer Social History Hx Tobacco Use In Past Year?: Yes Smoking Status: Current Every Day Smoker Drug Use: none Marital status: Housing status: lives with family, lives with significant other Occupational Status: retired History of MDRO History of MDRO: No Allergies Coded Allergies: Simvastatin (Verified Allergy, Mild, MUSCLE ACHES, 10/23/17) Current Medications Reported Home Medications Medications Dose Route/Sig Max Daily Dose Days Date Category Losartan Potassium 25 Mg Tab 12.5 Mg PO QPM 10/24/17 Rx Isosorbide Mononitrate ER (Isosorbide Mononitrate) 30 Mg Tabcr 30 Mg PO QAM 10/24/17 Rx Aspirin EC Low Dose (Aspirin) 81 Mg Ectab 81 Mg PO QAM 10/24/17 Rx Ultram (Tramadol HCl) 50 Mg Tab 50 Mg PO Q6 PRN 10/23/17 Reported Nystatin Suspension (Nystatin) 1 Ml Susp 5 Ml PO QID 10/23/17 Reported Robaxin (Methocarbamol) 500 Mg Tab 1 Tab PO QID PRN 30 10/23/17 Reported Duoneb (Ipratropium-Albuterol) 3 Ml Nebu 1 Treatment INH Q4H PRN 10/23/17 Reported Proair Respiclick (Albuterol Sulfate) 108 Mcg/Act Aer 2 Puffs INH Q4 PRN 10/23/17 Reported Flomax (Tamsulosin Hcl) 0.4 Mg Cap 0.4 Mg PO QPM 09/30/15 Reported Physical Physical Exam Vital Signs: Date Time Temp Pulse Resp B/P (MAP) Pulse Ox O2 Delivery O2 Flow Rate FiO2 10/24/17 16:46 36.6 68 20 94 Room Air 10/24/17 15:21 36.6 68 20 132/67 (88) 94 Room Air 10/24/17 12:00 Room Air 10/24/17 11:22 36.6 89 20 119/80 (93) 93 10/24/17 08:00 Room Air 10/24/17 06:02 36.6 54 18 128/93 (105) 92 Room Air 10/24/17 05:34 58 16 94 Room Air 10/24/17 04:00 Room Air 10/24/17 02:45 36.5 55 18 106/67 (80) 96 Room Air 10/24/17 00:00 Room Air 10/23/17 23:11 36.4 81 18 134/73 (93) 91 Room Air 10/23/17 20:00 95 Room Air 10/23/17 19:53 36.8 55 20 155/79 95 Room Air 10/23/17 19:02 36.8 55 20 155/79 (104) 95 Room Air Weight in Kilograms: 133 GENERAL : No acute distress EYES: No icterus, gaze conjugate NOSE: No evidence of epistaxis MOUTH: No lesions or candidiasis NECK: Supple LUNGS: Decreased breath sounds globally. Minimal wheezes. No significant rhonchi or rales HEART: Regular, rate controlled. No tachycardia or ectopy appreciated ABDOMEN: Soft, NT, ND, BS Present EXTREMITIES: No LE edema, pedal pulses intact NEURO: A&OX3 Diagnostics Labs Results Past 24 Hours Test 10/23/17 23:10 10/24/17 05:15 10/24/17 11:28 Range/Units Troponin I < 0.015 < 0.015 < 0.015 0-0.045 ng/ml White Blood Count 5.87 4.8-10.8 K/uL Red Blood Count 5.01 4.7-6.1 M/uL Hemoglobin 15.4 14.0-18.0 g/dL Hematocrit 45.7 42-52 % Mean Corpuscular Volume 91.2 80-100 fL Mean Corpuscular Hemoglobin 30.7 25-34 pg Mean Corpuscular Hemoglobin Concent 33.7 32-36 g/dl RDW Standard Deviation 46.8 36.4-46.3 fL RDW Coefficient of Variation 13.9 11.5-14.5 % Platelet Count 169 130-400 K/uL Mean Platelet Volume 11.7 7.4-10.4 fL Sodium Level 137 136-145 mmol/L Potassium Level 3.7 3.5-5.1 mmol/L Chloride Level 103 98-107 mmol/L Carbon Dioxide Level 27 21-32 mmol/L Anion Gap 7.0 3-11 mmol/L Blood Urea Nitrogen 12 7-18 mg/dl Creatinine 0.78 0.60-1.40 mg/dl Est Creatinine Clear Calc Drug Dose 127.6 ml/min Estimated GFR () 107.5 Estimated GFR (Non- 92.8 BUN/Creatinine Ratio 14.8 10-20 Random Glucose 95 70-99 mg/dl Calcium Level 8.4 8.5-10.1 mg/dl Magnesium Level 2.4 1.8-2.4 mg/dl Triglycerides Level 174 0-150 mg/dl Cholesterol Level 196 0-200 mg/dl HDL Cholesterol 39 mg/dl LDL Cholesterol, Calculated 122 mg/dl VLDL Cholesterol, Calculated 35 mg/dl Cholesterol/HDL Ratio 5.[address] ANGIOGRAM OF THE CHEST CLINICAL HISTORY: Atypical chest pain and shortness of breath COMPARISON STUDY: Chest x-ray dated 10/23/2017, chest CT dated 01/09/2008 TECHNIQUE: Following the IV administration of 94 mL of Optiray-320, CT angiogram of the thorax was performed from the thoracic inlet to the lung bases utilizing the pulmonary embolus protocol. Images are reviewed in the axial, sagittal, and coronal planes. IV contrast was administered without complication. MIP imaging was performed. A dose lowering technique was utilized adhering to the principles of ALARA. CT DOSE: 835.10 mGy.cm FINDINGS: There is a stable thyroid goiter Minimally enlarged mediastinal lymph nodes remain stable. There was no evidence of thoracic aortic dilatation. There were no pulmonary artery filling defects to indicate acute pulmonary embolism. No pleural effusions are visualized. There are mild dependent atelectatic changes. There is mild respiratory motion artifact. There is no focal pulmonary consolidation. The trachea is favored shaped, and there is diffuse narrowing of the left mainstem bronchus. 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 There is a solid 8 mm right lower lobe pulmonary nodule as visualized in image #[id number]. This nodule measured 3 mm in 2007. A slowly growing neoplasm is the diagnosis of exclusion. Nonemergent pelvic consultation is recommended. IMPRESSION: 1. No evidence of acute pulmonary embolism 2. Slowly growing 8 mm solid right lower lobe pulmonary nodule. A slowly growing neoplasm is the diagnosis of exclusion 3. Stable mild mediastinal lymphadenopathy 4. Thyroid goiter 5. Saber shaped trachea. Narrowing of the AP diameter of the left mainstem bronchus, possibly secondary to bronchomalacia Electronically signed by: Benitez Givens M.D. 10/23/2017 6:39 PM Impression Assessment and Plan 8 MM RIGHT LOWER LOBE LUNG NODULE * Previous CT scan with 3 mm right lower lobe nodule * Follows with Dr. Vincent in the [facility] [place] pulmonary office * Referred to the lung nodule program * Follow per Fleischner criteria * Follow-up with Dr. Vincent 11/26/2017 at 3:30 PM COPD * Follow-up with Dr. Vincent as above * Patient appears to be at baseline * Continue home bronchodilators TOBACCO ABUSE * Discussed need for cessation DVT PROPHYLAXIS * Anticipated discharge today * Ambulate as tolerated Thank you for including us in the care of this patient. There is no further pulmonary workup to do inpatient. Patient has been established with Dr. Vincent and has a follow-up appointment 11/26/2017 at 3:30 PM.
[2017-10-24] MEDS ORDERED: LOSARTAN POTASSIUM 25 MG TAB PO SCH (21:00)
[2017-10-25] MEDS ORDERED: ISOSORBIDE MONONITRATE 30 MG TABCR PO SCH (09:00)
== END 2017-10-24 17:12 | disposition home or self-care (01) ==
LOC: C.EDB 15:08 → C.MED 17:07 → ENRESERV 17:54
PROVIDERS: ADMIT Hospitalist; ATTEND Internal Medicine
DX: R06.00 Dyspnea, unspecified (principal); R91.1 Solitary pulmonary nodule; B37.0 Candidal stomatitis; R94.31 Abnormal electrocardiogram [ECG] [EKG]; J44.9 Chronic obstructive pulmonary disease, unspecified; F17.200 Nicotine dependence, unspecified, uncomplicated; N40.0 Benign prostatic hyperplasia without lower urinary tract symptoms; I25.10 Atherosclerotic heart disease of native coronary artery without angina pectoris; M54.9 Dorsalgia, unspecified; G89.29 Other chronic pain; E78.5 Hyperlipidemia, unspecified; E66.01 Morbid (severe) obesity due to excess calories; F32.9 Major depressive disorder, single episode, unspecified; Z68.41 Body mass index [BMI] 40.0-44.9, adult

== ENCOUNTER → 2017-12-11 | Outpatient (CLI) | payer OTHER ==
[~2017-12-11] MED LIST changes: +ALBU18002 INH; -ASPEC325 PO; +ASPI-320 PO; +CZR25 PO; -HYDR-3714 PO; +IMDSR30 PO; -IPRA1AER2 INH; +IPRASOL4 INH; +METH500T PO; -METH500T37 PO; +NYSS/ PO; -TEMA30CA4 PO; +TRAM-10 PO
--- NOTE | 2017-12-12 06:14 | SPLIT NIGHT TECHNICIAN REPORT ---
[facility] Split Night Polysomnogram - Director Product Report Study date: 12/11/2017 Referring Physician: Larry Durant M.D. Name: FELICITAS MEYER Director Product: [facility]. Date of : 1950 Height: 67 years, Height 5' 10" Sex: Male Weight: 293 lbs Age: 67 Neck Circum: 23 IN BMI: Medications: 42.04 ASPIRIN 325 MG, BREO ELLIPTA 200-25 MCG/INH, COMBIVENT 18-103 MCG/ACT, FLOMAX 0.4 MG, FUROSEMIDE 20 MG, HYDROCODONE-ACETAMINOPHEN 7.5-325 MG, IPRATROPIUM-ALBUTEROL, METHOCARBAMOL 500 MG, OMEPRAZOLE 20 MG, POTASSIUM CHLORIDE 20 MEQ, PREDNISONE 10 MG, SPRIVA RESPIMAT 2.5 MCG/ACT, TEMAZEPAM 30 MG Patient History 67 yr-old male here for a baseline/split study. He has had previous sleep testing was found to be positive for BRIAN. He was then set up with CPAP and eventually BiPAP but could not tolerate the treatment. He states he has been trying to but will rip the mask off in his sleep and throw it aside. He is back to try CPAP or BiPAP again. His Philadelphia scale is 10. He requested to get up at 5:10 am for work. The test was started on room air. ETOC2 testing was not utilized during this study. Room 1 Parameters Monitored NPSG: E1-M2, E2-M1, Fp1-M2, Fp2-M1, F3-M2, F4-M2, F4-M1, C3-M2, C4-M2, C4-M1, O1-M2, O2-M2, O2-M1, T3-M2, T4-M1, P3-M2, P4-M1, CHIN1, CHIN2, HR, EKG, Legs, PFLOW, SNOR, FLOW, CFLOW, Tidal Volume, THOR, ABDO, SpO2, PLTH, CPRESS, ETCO2 Wave, ETCO2, pH SLEEP SUMMARY DATA DIAGNOSTIC TREATMENT Lights Out: 9:54:35 PM 1:31:05 AM Lights On: 1:02:35 AM 4:55:05 AM Total Recording Time (TRT): 188.0 min. 204.0 min. Total Sleep Time (TST): 124.5 min. 172.5 min. NREM Time: 124.5 min. 146.0 min. REM Time: 0.0 min. 26.5 min. Sleep Period Time (SPT): 186.5 min. 190.0 min. Sleep Efficiency (SE): 66 % 85 % Sleep Latency: 1.5 min. 2.5 min. Arousal Index: 91.1 26.1 PAP Treatment Levels: 8/4, 9/5, 11/7, 12/8, 13/9, 15/9, 17/9 * Optimal Pressure(s) SLEEP STAGING DATA DIAGNOSTIC TREATMENT Duration (min) TST % Duration (min) TST % Stage Wake: 63.5 min. -- 31.5 min. -- WASO: 62.0 min. -- 17.5 min. -- NREM: 124.5 min. 100 % 146.0 min. 85 % Stage N1: 123.5 min. 99 % 48.0 min. 28 % Stage N2: 1.0 min. 1 % 77.5 min. 45 % Stage N3: 0.0 min. 0 % 20.5 min. 12 % REM: 0.0 min. 0 % 26.5 min. 15 % POSITIONAL DATA Event Count Index Event Count Index Supine: N/A N/A 24 31.6 Supine NREM: N/A N/A 24 31.6 Supine REM: N/A N/A N/A N/A Non-Supine: 174 80.0 53 22.5 Non-Supine NREM: 174 80.0 51 27.1 Non-Supine REM: N/A N/A 2 4.5 AROUSAL SUMMARY DATA: Event Count Index Event Count Index Apnea Arousals: 44 40.5 20 16.7 Hypopnea Arousals: 62 29.9 7 2.4 Snore Arousals: 30 14.5 6 2.1 PLM Arousals: 32 15.4 17 5.9 Non-Specific Arousals: 19 9.2 22 7.7 Total Arousals: 189 91.1 75 26.1 MYOCLONUS (PLM) Event Count Index Event Count Index PLM: 210 101.2 408 141.9 PLM AROUSAL: 32 15.4 17 5.9 PLM W/O AROUSAL 210 101.2 391 136.0 PLM W/RESP EVENT 39 0.0 33 0.0 MYOCLONUS (PLM) Event Count Index Event Count Index LM: 3 37.6 30 10.4 LM AROUSAL: 3 1.4 4 1.4 LM W/O AROUSAL LM W/RESP EVENT LM NON SPECIFIC 192 92.5 386 134.3 HEART RATE DATA DIAGNOSTIC TREATMENT Sleep (bpm): 62 55 REM (bpm): N/A 92 NREM (bpm): 94 93 Tachycardia Count: 0 0 Tachycardia Duration: 0.00 0 Bradycardia Count: 0 0 Bradycardia Duration: 0.00 0 DIAGNOSTIC PORTION TREATMENT PORTION RESPIRATORY DATA Event Count Index Event Count Index AHI: -- 80.0 -- 24.7 RDI: -- 83.9 -- 27 Obstructive Apnea: 62 29.9 42 14.6 Central Apnea: 18 8.7 6 2.1 Mixed Apnea: 4 1.9 0 0.0 Hypopnea: 82 39.5 23 8.0 RERA: 8 3.9 6 2.1 Total Apneas: 84 40.5 48 16.7 RESPIRATORY DATA REM NREM SLEEP REM NREM SLEEP Supine Position: Obstructive Apneas: N/A N/A N/A N/A 3 3 Central Apneas: N/A N/A N/A N/A 2 2 Mixed Apneas: N/A N/A N/A N/A 0 0 Hypopneas: N/A N/A N/A N/A 17 17 RERA N/A N/A N/A N/A 2 2 Total Supine Events: N/A N/A N/A N/A 24 24 Supine AHI: N/A N/A N/A N/A 31.6 31.6 Supine RDI: N/A N/A N/A N/A 34.5 34.5 REM NREM SLEEP REM NREM SLEEP Non-Supine Position: Obstructive Apneas: N/A 62 62 2 37 39 Central Apneas: N/A 18 18 0 4 4 Mixed Apneas: N/A 4 4 0 0 0 Hypopneas: N/A 82 82 0 6 6 RERA N/A 8 8 0 4 4 Total Supine Events: N/A 174 174 2 51 53 Supine AHI: N/A 80.0 80.0 4.5 27.1 22.5 Supine RDI: N/A 83.9 83.9 4.5 29.4 24.3 OXYGEN DESTAURATION DATA: Event Count Index Event Count Index REM Desaturations: N/A N/A 1 2.3 NREM Desaturations: 143 68.9 50 20.5 SNORE DATA DIAGNOSTIC TREATMENT Snore Time: 24.1 1:33:35 AM Snore TST%: 34 22 Snore Arousal Count: 30 6 Snore Arousal Index: 14.5 2.1 Desaturation Event Summary: Minimum %SpO2 Event Count Mean/Min/Max Duration(sec.) Desaturation Index % Time In Bed > 90 232 21.0 / 5.5 / 60.0 41.0 94.2 86 - 90 0 N/A 0.0 5.7 81 - 85 0 N/A 0.0 0.1 76 - 80 0 N/A 0.0 0.0 71 - 75 0 N/A 0.0 0.0 66 - 70 0 N/A 0.0 0.0 61 - 65 0 N/A 0.0 0.0 56 - 60 0 N/A 0.0 0.0 51 - 55 0 N/A 0.0 0.0 < 50 0 N/A 0.0 0.0 OXYGEN SATURATION DATA DIAGNOSTIC TREATMENT SpO2 Mean Sleep: 94 % 93 % SpO2 Mean REM: N/A % 92 % SpO2 Mean NREM: 94 % 93 % SpO2 Minimum Sleep: 87 % 85 % SpO2 Minimum REM: N/A % 90 % SpO2 Minimum NREM: 87 % 85 % Time Below 90% (TST): 5.4 3.5 Time Below 88% (TST): 0.4 0.3 Total REM NREM Awake <50% 0.0 min. 0.0 min. 0.0 min. 0.0 min. 51 - 60% 0.0 min. 0.0 min. 0.0 min. 0.0 min. 61 - 70% 0.0 min. 0.0 min. 0.0 min. 0.0 min. 71 - 80% 0.0 min. 0.0 min. 0.0 min. 0.0 min. 81 - 90% 20.9 min. 0.4 min. 18.1 min. 2.4 min. 91 - 100% 339.5 min. 26.1 min. 246.3 min. 67.1 min. Average 94 92 94 94 Minimum SpO2 85 90 85 85 Desaturation Event Index 35.5 2.3 42.8 26.5 # Desat. Events below 89% 24 N/A 23 1 Time(%) with Saturation below 89% 1.1 0.0 0.9 0.2 Time(min.) with Saturation below 89% 3.9 0.0 3.1 0.9 Recording Director Product Comments: Mr. Meyer slept in the right, left, and supine positions. Cardiac arrhythmias were noted in almost every epoch (please refer to the printouts). PLMs were noted at times when he was not having BRIAN. No bruxism noted. Snoring was noted and scored as a 3-4 on a scale of 1 through 5. (0=no snoring, 5=snoring loud enough to be heard through a closed door or down the goins way) At 1:29, he met specific Split-Night criteria during the diagnostic portion of this study. CPAP was initiated at +4 CMH2O and was then increased to +7 CMH2O at his request for more air. He started to feel anxious about the pressure, so he was switched to BiPAP at +8/4 CMH2O and up-titrated to a level of +17/9 CMH2O. He took his mask off while mostly asleep about three times. The last time he took the mask off, he stated that he was done with the test. A Dreamwear full face mask from [employer] was used during titration. He awoke to use the restroom two times during the night. Mr. Meyer stated that he thinks he got a little more sleep than usual. The final report will be interpreted and signed by a sleep physician. The completed physician report will then be placed in the patient medical record. Therapy Event: Therapy (cm H20) 0 03/09 04/10 06/12 07/13 13 159 17/9 Total Time at Pressure (min.) 188.0 11.0 19.9 26.4 47.6 53.1 31.4 14.6 TST at Pressure (min.) 124.5 6.5 11.4 25.9 47.6 48.1 29.9 3.1 # Periods 1 1 1 1 1 1 1 1 Sleep Onset (min.) 1.5 2.5 0.0 0.0 0.0 0.0 0.0 0.0 REM Onset (min.) N/A N/A N/A 21.6 0.0 33.6 N/A N/A Sleep Efficiency % 66 59 57 98 100 90 95 21 Wakefulness (%) 33.8 40.9 42.6 1.9 0.0 9.4 4.8 78.8 Wakefulness (min.) 63.5 4.5 8.5 0.5 0.0 5.0 1.5 11.5 NREM 1 (%) 65.7 59.1 47.3 19.2 11.6 16.9 38.2 3.4 NREM 1 (min.) 123.5 6.5 9.4 5.1 5.5 9.0 12.0 0.5 NREM 2 (%) 0.5 0.0 10.0 53.1 57.6 25.7 57.0 17.8 NREM 2 (min.) 1.0 0.0 2.0 14.0 27.4 13.6 17.9 2.6 NREM 3 (%) 0.0 0.0 0.0 7.6 0.0 34.8 0.0 0.0 NREM 3 (min.) 0.0 0.0 0.0 2.0 0.0 18.5 0.0 0.0 REM (%) 0.0 0.0 0.0 18.3 30.9 13.2 0.0 0.0 REM (min.) 0.0 0.0 0.0 4.8 14.7 7.0 0.0 0.0 # Arousals 189 9 12 8 12 13 20 1 Arousal Index 91.1 82.9 63.0 18.6 15.1 16.2 40.2 19.4 # Snore 682 37 78 251 476 83 121 26 Snore Index 328.7 340.8 409.3 582.2 600.2 103.5 243.0 504.7 AHI 80.0 92.1 63.0 23.2 18.9 11.2 30.1 0.0 AHI Supine N/A N/A N/A N/A N/A 47.6 30.1 0.0 AHI Non-Supine 80.0 92.1 63.0 23.2 18.9 3.1 N/A N/A NREM AHI 80.0 92.1 63.0 28.5 23.7 13.1 30.1 0.0 REM AHI N/A N/A N/A 0.0 8.2 0.0 N/A N/A RDI 83.9 92.1 73.5 25.5 20.2 11.2 34.1 0.0 # Obstructive 62 7 10 8 12 2 3 0 # Central Ap 18 2 1 1 0 1 1 0 # Mixed 4 0 0 0 0 0 0 0 # Hypopneas 82 1 1 1 3 6 11 0 RERAS 8 0 2 1 1 0 2 0 Total Respiratory Events 174 10 14 11 16 9 17 0 Time Below SpO2 89.00% (min.) 2.0 0.0 0.0 0.0 1.0 0.1 0.0 0.0 Mean NREM SpO2 (%) 94 95 95 93 92 94 94 92 Mean REM SpO2 (%) N/A N/A N/A 92 92 94 N/A N/A Mean Sleep SpO2 (%) 94 95 95 93 92 94 94 92 Min NREM SpO2 (%) 87 91 91 90 86 85 90 91 Min REM SpO2 (%) N/A N/A N/A 90 90 92 N/A N/A Position Supine (min.) 0.0 0.0 0.0 0.0 0.0 8.8 29.9 3.1 Position Non-supine (min.) 124.5 6.5 11.4 25.9 47.6 39.3 0.0 0.0 LM Index Sleep 138.8 156.6 162.7 187.9 155.1 172.0 92.4 38.8 LM Index NREM 138.8 156.6 162.7 210.9 189.7 169.2 92.4 38.8 LM Index REM N/A N/A N/A 87.2 77.6 188.6 N/A N/A Mean Heart Rate (bpm) 62 58 57 57 55 55 54 52 Min Heart Rate (bpm) 37 52 46 41 32 40 42 46 CPAP REPORT Therapy Detail Time / Page # Comment BiLevel 8/4 cm H2O Full Face Mask Flex Pressure Relief Humidifier on 1:29:56 AM / pg. 550 HE WAS ASLEEP FOR OVER 2 HOURS AND HIS AHI WAS ABOVE 40. TRIED TO START ON CPAP OF 4 AND HE STATED HE WAS NOT GETTING ENOUGH AIR SO IT WAS INCREASED TO 7 AND THEN HE STATED THAT HE COULD NOT BREATHE OUT AGAINST THE PRESSURE. HE WAS THEN PLACED ON BIPAP AT 8/4 BiLevel 9/5 cm H2O Full Face Mask Flex Pressure Relief Humidifier on 1:42:06 AM / pg. 575 INCREASED EPAP FOR OBSTRUCTIVE APNEAS AND INCREASED IPAP TO KEEP THE PRESSURE DIFFERENTIAL OF 4 BiLevel 11/7 cm H2O Full Face Mask Flex Pressure Relief Humidifier on 2:02:02 AM / pg. 614 INCREASED EPAP FOR OBSTRUCTIVE APNEAS AND INCREASED IPAP TO KEEP THE PRESSURE DIFFERNTIAL OF 4 BiLevel 12/8 cm H2O Full Face Mask Flex Pressure Relief Humidifier on 2:28:24 AM / pg. 667 INCREASED EPAP FOR OBSTRUCTIVE APNEAS AND INCREASED IPAP TO KEEP THE PRESSURE DIFFERENTIAL OF 4 BiLevel 13/9 cm H2O Full Face Mask Flex Pressure Relief Humidifier on 3:15:59 AM / pg. 762 INCREASED EPAP FOR OBSTRUCTIVE APNEAS AND INCREASED IPAP TO KEEP THE PRESSURE DIFFERENTIAL OF 4 BiLevel 15/9 cm H2O Full Face Mask Flex Pressure Relief Humidifier on 4:09:07 AM / pg. 869 INCREASED IPAP FOR HYPOPNEAS BiLevel 17/9 cm H2O Full Face Mask Flex Pressure Relief Humidifier on 4:40:30 AM / pg. 931 INCREASED IPAP FOR HYPOPNEAS
--- NOTE | 2017-12-13 11:49 | POLYSOMNOGRAPH REPORT ---
CLINICAL DATA: A 67-year-old male with BMI of [address] Jeong and myself for a split night sleep study. He had been diagnosed with sleep apnea and started CPAP and eventually BiPAP, but could not tolerate it. He is back to reassess his sleep apnea and his response to PAP therapy. His Truxton sleepiness score is 10/24. This was a split night study. SLEEP ARCHITECTURE: Total sleep period was 186.5 minutes. Total sleep time was 124.5 minutes all non-REM sleep. Sleep latency was 1.5 minutes. Sleep efficiency was 66%. Sleep consisted of stage N1 99% and stage N2 1%. During treatment, sleep period was 190 minutes. Total sleep time was 172.5 minutes divided 146 minutes of non-REM sleep and 26.5 minutes of REM sleep. Sleep latency was 2.5 minutes. Sleep efficiency was 85%. Sleep consisted of stage N1 28%, stage N2 45%, stage N3 12%, and REM 15%. AROUSAL DATA: Prior to treatment, 189 arousals were recorded for an index of 91.1 per hour. During treatment, 75 arousals were recorded for an index of 26.1 per hour. PLM DATA: Prior to treatment, 210 limb movements during sleep were noted for an index of 101 per hour. During treatment, 408 limb movements during sleep were noted for an index of 141.9 per hour. EKG: Heart rates ranged from 55-93 beats per minute. The patient was noted to have an irregular heart rhythm throughout the entire study possibly consistent with multifocal atrial tachycardia or atrial fibrillation. RESPIRATORY DATA: Very severe sleep apnea was documented prior to treatment. The AHI was 80. The RDI was 83.9. There were 62 obstructive, 18 central, and 4 mixed apneic episodes. There were 82 hypopneic episodes. There were 8 RERAs. The AHI during treatment was 24.7. There were 42 obstructive apneic episodes and 6 central apneic episodes. There were 23 hypopneic episodes. OXIMETRY DATA: Mild nocturnal hypoxemia was seen. Oxygen barney was 85% during non-REM sleep during treatment. Mean saturation during treatment was 93%. 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 PLMs were noted throughout the entire night even when the patient was not having sleep apnea. Snoring was severe rated 3-4 on a scale of 1-5. At 1:29 a.m., he met split night criteria. CPAP was started, but the patient was not getting enough air, so he was switched to BiPAP. He was started on 03/09 and was eventually titrated up to 17/. He took his mask off while asleep 3 different times. A DreamWear full face mask from [employer] was used. At his final pressure setting of BiPAP 17/9, the patient slept for 3.1 minutes with an AHI of 0. IMPRESSION: Very severe sleep apnea/hypopnea with diagnostic AHI of 80, improved with BiPAP 17/9 with the above noted interface. RECOMMENDATIONS: The patient should be seen back in followup to initiate PAP therapy. If he continues to have symptoms in spite of adequate treatment with BiPAP, treatment for PLMD may be of benefit. Consideration of a baseline EKG or a 24-hour Holter monitor may be of benefit due to the irregularly irregular rhythm seen during the patient's sleep study. LIDYA
== END | disposition home or self-care (01) ==
LOC: C.NEUR 21:00
PROVIDERS: ATTEND Internal Medicine Pulmonary Disease
DX: G47.33 Obstructive sleep apnea (adult) (pediatric) (principal); G47.61 Periodic limb movement disorder; E66.9 Obesity, unspecified

== ENCOUNTER 2020-10-28 21:02 | Inpatient (IN) ==
[2020-10-28 22:02] LABS: Basophils # (auto) 0.01 K/uL (0-0.2); Basophils % (auto) 0.1 %; Eosinophils # (auto) 0.11 K/uL (0-0.5); Eosinophils % (auto) 1.3 %; Hematocrit (blood only) 37.3 % (42-52); Hemoglobin 12.3 g/dL (14.0-18.0); Immature Granulocytes # (auto) 0.02 K/uL (0.00-0.02); Immature Granulocytes % (auto) 0.2 %; Lymphocytes # (auto) 1.35 K/uL (1.2-3.4); Lymphocytes % (auto) 16.3 %; Mean Corpuscular Hemoglobin 29.3 pg (25-34); Mean Corpuscular Volume 88.8 fL (80-100); Mean Platelet Volume 10.9 fL (7.4-10.4); Monocytes # (auto) 0.66 K/uL (0.11-0.59); Neutrophils # (auto) 6.12 K/uL (1.4-6.5); Neutrophils % (auto) 74.1 %; Platelet Count 270 K/uL (130-400); RDW Coefficient of Variation 15.8 % (11.5-14.5); RDW Standard Deviation 50.9 fL (36.4-46.3); White Blood Count 8.27 K/uL (4.8-10.8)
[2020-10-28 22:25] LABS: Partial Thromboplastin Time 25.7 Seconds (21.0-31.0)
[2020-10-28 22:26] LABS: Alanine Aminotransferase 25 U/L (12-78); Albumin Level 3.5 gm/dl (3.4-5.0); Aspartate Aminotransferase 17 U/L (15-37); BUN Creatinine Ratio 16.9 (10-20); Blood Urea Nitrogen 22 mg/dl (7-18); Calcium 9.2 mg/dl (8.5-10.1); Carbon Dioxide 30 mmol/L (21-32); Chloride 101 mmol/L (98-107); Creatinine Clr Calc Pharmacy 67.2 ml/min; Est GFR (African American) 64.8; Est GFR (Non-African American) 55.9; Glucose 93 mg/dl (70-99); Lipase 238 U/L (73-393); Magnesium 2.2 mg/dl (1.8-2.4); Potassium 3.4 mmol/L (3.5-5.1); Sodium 136 mmol/L (136-145)
[2020-10-28] MEDS ORDERED: POTASSIUM CHLORIDE CRTAB 20 MEQ TABCR PO STA (22:28)
[2020-10-28 22:31] LABS: Albumin Globulin Ratio 0.9 (0.9-2); Alkaline Phosphatase 83 U/L (45-117); Bilirubin,Total 0.5 mg/dl (0.2-1); NT Pro B Type Natriuretic Pept 1707 pg/ml (0-900); Total Protein 7.5 gm/dl (6.4-8.2); Troponin I < 0.015 ng/ml (0-0.045)
--- NOTE | 2020-10-28 22:38 | Emergency Department Note ---
ED Visit Note The patient was seen and examined with jana. I agree with the history, physical and findings. Please see the note for disposition and details. .
[2020-10-28 22:49] LABS: Influenza A virus by PCR Negative (Neg); Influenza B virus by PCR Negative (Neg); RSV by PCR Negative (Neg); SARS CoV2 RNA(COVID-19) InHosp NEGATIVE (Negative)
[2020-10-28] MEDS ORDERED: methylPREDNISolone 40 MG in SYRINGE 0 ML IV STA (23:04)
[2020-10-28] MEDS ORDERED: DOXYCYCLINE HYCLATE 100 MG in DEXTROSE 5% 100 ML IV STA (23:05)
[2020-10-28] MEDS ORDERED: XOPENEX/ATROVENT 1.25mg/0.5MG NEB COMBO NEB STA (23:05)
[2020-10-28] MEDS ORDERED: IPRATROPIUM BROMIDE NEB SOLN 0.02% 2.5 ML VIAL INH STA (23:10)
[2020-10-28] MEDS ORDERED: LEVALBUTEROL 1.25MG/0.5ML NEB INH STA (23:10)
[2020-10-28] MEDS ORDERED: METOPROLOL TARTRATE 50 MG TAB PO STA (23:19)
[2020-10-28] MEDS ORDERED: MELATONIN 3 MG TAB PO PRN (23:19)
--- NOTE | 2020-10-28 23:19 | History & Physical Report ---
Date of Service October 28, 2020 Assessment & Plan (1) COPD exacerbation: Complicated bronchitis chronic systolic heart failure secondary to ischemic cardiomyopathy (EF 20%, TTE 2020), mild congestion on x-ray hx CAD status post stent PVD status post surgery A. fib on Eliquis, rate slightly elevated Hypokalemia secondary diuretic Rx BRIAN (CPAP intolerance as per records) ongoing tobacco abuse anxiety/mood disorder, at baseline OBS PCU Doxycycline, steroid course, nebs RTC Inpatient Pulmonology consult if without improvement. Outpatient follow-up with patient [facility] food specialist. Continue home beta-norm for rate control Continue home diuretic Rx Cardiology consult Re: Follow-up eval for shortness of breath (Patient directed to the hospital by Dr. Barker.) PT OT eval Nicotine patch as needed DVT prophylaxis. Eliquis Full code Text document was generated using JetSuite voice recognition software. It may contain grammatical or spelling errors. Kindly contact undersigned for clarification of any documentation item in question. History of Present Illness Chief Complaint: Shortness of breath Primary Care Provider: Larry Saravia PA-C History obtained from patient, family, and records. Medical history significant for chronic systolic heart failure secondary to ischemic cardiomyopathy (EF 20%, TTE 2020), CAD status post stent, PVD status post surgery, A. fib on Eliquis, COPD, ongoing tobacco abuse, BRIAN (CPAP intolerance as per records), anxiety/mood disorder. Last confinement October 2017 for shortness of breath. Patient noted worsening shortness of breath on exertion, fatigue in the last month. No chest pain, weight stable as per patient. Stable CAD on cardiac catheterization done at [facility] 2 weeks ago. Worsening shortness of breath, junky cough symptoms in the last week without chest pain. No fever, no chills. No aspiration. No recent COVID-19 contacts. Patient seen at [facility] wire steward's office yesterday afternoon. Patient advised by wire steward to go to the hospital. 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 Allergies Allergy/AdvReac Type Severity Reaction Status Date / Time simvastatin Allergy Mild MUSCLE Verified 10/28/20 23:03 ACHES Home Medications Medication Instructions Recorded Confirmed Type clopidogrel 75 mg tablet 75 mg PO DAILY 05/04/19 10/28/20 History ipratropium 0.5 mg-albuterol 3 mg 3 ml INH QID PRN 05/04/19 10/28/20 History (2.5 mg base)/3 mL nebulization soln tamsulosin 0.4 mg capsule 0.4 mg PO DAILY 05/04/19 10/28/20 History apixaban [Eliquis] 5 mg PO BID 10/28/20 10/28/20 History evolocumab [Repatha SureClick] 140 mg SUBCUT MONTHLY 10/28/20 10/28/20 History ztxnjsilqbs-ykbojuufy-praewrth 1 inh INHALATION DAILY 10/28/20 10/28/20 History [Trelegy Ellipta] losartan 25 mg PO DAILY 10/28/20 10/28/20 History metoprolol succinate 100 mg PO DAILY 10/28/20 10/28/20 History montelukast 10 mg PO DAILY 10/28/20 10/28/20 History potassium chloride 20 meq PO DAILY 10/28/20 10/28/20 History quetiapine 25 mg PO HS 10/28/20 10/28/20 History spironolactone 25 mg PO DAILY 10/28/20 10/28/20 History torsemide 100 mg PO DAILY 10/28/20 10/28/20 History Past Med/Surg History Social History Smoking Status: Current every day smoker Second Hand Exposure: Yes; Do You Dip or Chew Tobacco: No; Hx Alcohol Use: Yes Hx Substance Use: No Preferred Language: Tuvaluan Communication Ability: Effective Solution Maker Required: No Beliefs That Will Affect Care: None Current Living Situation: Spouse Other Information That Helps Us Care for You: No Feels Safe at Home: Yes Safety Concerns: Feels Safe At This Time Assistive Devices: Glasses Review of Systems Review of Systems: As per HPI, all 10 systems reviewed, all other ROS negative Physical Exam Physical Exam: GENERAL: Slightly uncomfortable, episodic tachypnea, obese SKIN: Normal color, warm HEENT: [place] palpebral conjunctivae, no ptosis, moist buccal mucosa NECK : Supple, short neck, no tenderness CHEST : Decreased breath sounds, no tenderness HEART : Diminished S1-S2, irregular, no obvious murmurs ABDOMEN: Some distention, nontender EXTREMITIES : Minimal LE swelling, no LE tenderness, no other conspicuous deformities noted NEUROLOGIC : Coherent, no facial asymmetry, no other gross focality Results & Data Results & Data ([facility]) Vital Signs (Past 12 Hours) Vital Signs Temp Pulse Pulse Resp BP Pulse Ox 10/28/20 23:17 108 H 18 93 10/28/20 23:00 94 H 28 H 93 10/28/20 22:38 95 H 22 122/35 L 91 10/28/20 22:30 16 91 10/28/20 22:00 105 H 22 94 10/28/20 21:59 105 H 22 92 10/28/20 21:51 97 H 29 H 116/66 96 10/28/20 21:45 93 10/28/20 21:13 36.2 C L 102 H 22 94/61 L 98 Laboratory Results Laboratory Results WBC 8.27 K/uL (4.8-10.8) 10/28/20 21:40 RBC 4.20 M/uL (4.7-6.1) L 10/28/20 21:40 Hgb 12.3 g/dL (14.0-18.0) L 10/28/20 21:40 Hct 37.3 % (42-52) L 10/28/20 21:40 MCV 88.8 fL (80-100) 10/28/20 21:40 MCH 29.3 pg (25-34) 10/28/20 21:40 MCHC 33.0 g/dL (32-36) 10/28/20 21:40 RDW Std Deviation 50.9 fL (36.4-46.3) H 10/28/20 21:40 RDW Coeff of Minnie 15.8 % (11.5-14.5) H 10/28/20 21:40 Plt Count 270 K/uL (130-400) 10/28/20 21:40 MPV 10.9 fL (7.4-10.4) H 10/28/20 21:40 Immature Gran % (Auto) 0.2 % 10/28/20 21:40 Neut % (Auto) 74.1 % 10/28/20 21:40 Lymph % (Auto) 16.3 % 10/28/20 21:40 Whiteside % (Auto) 8.0 % 10/28/20 21:40 Eos % (Auto) 1.3 % 10/28/20 21:40 Baso % (Auto) 0.1 % 10/28/20 21:40 Neut # (Auto) 6.12 K/uL (1.4-6.5) 10/28/20 21:40 Lymph # (Auto) 1.35 K/uL (1.2-3.4) 10/28/20 21:40 Whiteside # (Auto) 0.66 K/uL (0.11-0.59) H 10/28/20 21:40 Eos # (Auto) 0.11 K/uL (0-0.5) 10/28/20 21:40 Baso # (Auto) 0.01 K/uL (0-0.2) 10/28/20 21:40 Immature Gran # (Auto) 0.02 K/uL (0.00-0.02) 10/28/20 21:40 APTT 25.7 Seconds (21.0-31.0) 10/28/20 21:40 PTT Ratio 1.0 10/28/20 21:40 Sodium 136 mmol/L (136-145) 10/28/20 21:40 Potassium 3.4 mmol/L (3.5-5.1) L 10/28/20 21:40 Chloride 101 mmol/L (98-107) 10/28/20 21:40 Carbon Dioxide 30 mmol/L (21-32) 10/28/20 21:40 Anion Gap 5.0 (3-11) 10/28/20 21:40 BUN 22 mg/dl (7-18) H 10/28/20 21:40 Creatinine 1.28 mg/dl (0.6-1.4) 10/28/20 21:40 Est Cr Clr Drug Dosing 67.2 ml/min 10/28/20 21:40 Est GFR ( Amer) 64.8 10/28/20 21:40 Est GFR (Non-Af Amer) 55.9 10/28/20 21:40 BUN/Creatinine Ratio 16.9 (10-20) 10/28/20 21:40 Glucose 93 mg/dl (70-99) 10/28/20 21:40 Calcium 9.2 mg/dl (8.5-10.1) 10/28/20 21:40 Magnesium 2.2 mg/dl (1.8-2.4) 10/28/20 21:40 Total Bilirubin 0.5 mg/dl (0.2-1) 10/28/20 21:40 AST 17 U/L (15-37) 10/28/20 21:40 ALT 25 U/L (12-78) 10/28/20 21:40 Alkaline Phosphatase 83 U/L (45-117) 10/28/20 21:40 Troponin I < 0.015 ng/ml (0-0.045) 10/28/20 21:40 NT-Pro-B Natriuret Pep 1707 pg/ml (0-900) H 10/28/20 21:40 Total Protein 7.5 gm/dl (6.4-8.2) 10/28/20 21:40 Albumin 3.5 gm/dl (3.4-5.0) 10/28/20 21:40 Globulin 4.0 gm/dl (2.5-4.0) 10/28/20 21:40 Albumin/Globulin Ratio 0.9 (0.9-2) 10/28/20 21:40 Lipase 238 U/L (73-393) 10/28/20 21:40 COVID-19 Eval Order CovFluRsv at [facility] 10/28/20 22:01 SARS-CoV-2 (PCR) NEGATIVE (Negative) 10/28/20 22:01 Influenza Type A (PCR) Negative (Neg) 10/28/20 22:01 Influenza Type B (PCR) Negative (Neg) 10/28/20 22:01 RSV (RT-PCR) Negative (Neg) 10/28/20 22:01 Diagnostic Findings Chest x-ray as per my interpretation cardiomegaly, minimal congestion EKG as per my interpretation : Rate 95, A. fib, LAD, LAFB, inferior infarct, T wave abnormalities lateral leads Code Status & VTE Plan VTE Prophylaxis Plan VTE Prophylaxis will be ordered: Yes
[2020-10-29] MEDS ORDERED: PROMETHAZINE HCL 12.5 MG in SODIUM CHLORIDE 0.9% 50 ML IV PRN (00:25)
[2020-10-29] MEDS ORDERED: ALBUMIN 25% 12.5 GM/50 ML VIAL IV ONE ×2 (00:25→02:00)
[2020-10-29] MEDS ORDERED: ACETAMINOPHEN 325 MG TAB PO PRN (00:25)
[2020-10-29] MEDS ORDERED: traMADol HCL 50 MG TABLET PO PRN (00:25)
[2020-10-29] MEDS: QUEtiapine FUMARATE 25 MG TABLET PO SCH ×2 (01:22→20:11)
[2020-10-29 04:50] LABS: Basophils # (auto) 0.01 K/uL (0-0.2); Basophils % (auto) 0.1 %; Eosinophils # (auto) 0.02 K/uL (0-0.5); Eosinophils % (auto) 0.3 %; Hematocrit (blood only) 35.8 % (42-52); Hemoglobin 11.9 g/dL (14.0-18.0); Lymphocytes # (auto) 0.48 K/uL (1.2-3.4); Lymphocytes % (auto) 6.6 %; Mean Corpuscular Hemoglobin 29.4 pg (25-34); Mean Corpuscular Hgb Conc 33.2 g/dL (32-36); Mean Corpuscular Volume 88.4 fL (80-100); Mean Platelet Volume 10.6 fL (7.4-10.4); Monocytes # (auto) 0.13 K/uL (0.11-0.59); Monocytes % (auto) 1.8 %; Neutrophils # (auto) 6.59 K/uL (1.4-6.5); Neutrophils % (auto) 91.2 %; Platelet Count 240 K/uL (130-400); RDW Coefficient of Variation 15.6 % (11.5-14.5); RDW Standard Deviation 50.3 fL (36.4-46.3); Red Blood Count 4.05 M/uL (4.7-6.1); White Blood Count 7.23 K/uL (4.8-10.8)
[2020-10-29 05:15] LABS: Calcium 8.8 mg/dl (8.5-10.1); Creatinine Clr Calc Pharmacy 73.7 ml/min; Est GFR (African American) 66.1; Potassium 4.3 mmol/L (3.5-5.1)
[2020-10-29] MEDS ORDERED: IPRATROPIUM BROMIDE NEB SOLN 0.02% 2.5 ML VIAL INH SCH (07:00)
[2020-10-29] MEDS ORDERED: LEVALBUTEROL 1.25MG/0.5ML NEB INH SCH (07:00)
[2020-10-29] MEDS ORDERED: XOPENEX/ATROVENT 1.25mg/0.5MG NEB COMBO NEB SCH (07:00)
--- NOTE | 2020-10-29 07:52 | XRay Report ---
XR chest 1V portable CLINICAL HISTORY: Atypical chest pain COMPARISON STUDY: 10/23/2017 FINDINGS: The heart is enlarged. There is slight elevation of interstitium suggesting mild pulmonary vascular congestion. There is no lobar consolidation. There are no significant pleural effusions[ IMPRESSION: Cardiomegaly and suspected mild pulmonary vascular congestion. No evidence of focal pulmo nary consolidation ACT 112: Negative or not required by law. Electronically signed by: Benitez Givens M.D. 10/29/2020 7:51 AM
[2020-10-29] MEDS: DOXYCYCLINE HYCLATE 100 MG CAP PO SCH ×2 (08:13→20:11)
[2020-10-29] MEDS: TAMSULOSIN HCL 0.4 MG CAP PO SCH (08:14)
[2020-10-29] MEDS: MONTELUKAST SODIUM 10 MG TABLET PO SCH (08:14)
[2020-10-29] MEDS: SPIRONOLACTONE 25 MG TAB PO SCH (08:14)
[2020-10-29] MEDS: METOPROLOL SUCC 50MG EXT REL TAB PO SCH (08:14)
[2020-10-29] MEDS: predniSONE 20 MG TAB PO SCH (08:14)
[2020-10-29] MEDS: POTASSIUM CHLORIDE CRTAB 20 MEQ TABCR PO SCH ×2 (08:14→20:11)
[2020-10-29] MEDS: LOSARTAN POTASSIUM 25 MG TAB PO SCH (08:15)
[2020-10-29] MEDS: CLOPIDOGREL BISULFATE 75 MG TAB PO SCH (08:15)
[2020-10-29] MEDS: APIXABAN 5 MG TABLET PO SCH ×2 (08:51→20:11)
[2020-10-29] MEDS ORDERED: TORSEMIDE 100 MG TAB PO SCH (09:00)
--- NOTE | 2020-10-29 11:52 | Cardiology Consultation ---
Date of Consultation October 29, 2020 Assessment & Plan (1) COPD exacerbation: (2) CAD (coronary artery disease): (3) NICM (nonischemic cardiomyopathy): (4) Atrial fibrillation with rapid ventricular response: (5) BRIAN (obstructive sleep apnea): He is responding very well to initial treatment for possible COPD exacerbation and I recommend this be continued. He does examine as little volume overloaded and his chest x-ray does reveal some interstitial edema so I will also start him on Lasix 40 mg IV twice daily for now. We will then continue to follow his volume status clinically. No other medication changes will be made at this time nor is any further cardiac testing necessary at this time. History of Present Illness Reason for Consultation: sob Requesting Physician: Dr. Jon Attending Physician: Xochitl Jon, History of Present Illness The patient is a very pleasant 70-year-old gentleman who normally follows with Dr. Barker of our Cardiology practice. He was seen in the office on the with Dr. Donavan Barker and he was complaining of still being short of breath with minimal exertion. He states he has had not had any energy ever since undergoing cardiac catheterization a little over week ago. He denies any chest pain or palpitations. He has been taking his medications as directed without issue. However, his Entresto was discontinued due to throat swelling. He was found to have new onset atrial fibrillation in September and is being treated for it since then. Recent echocardiogram did show a significant drop of his EF from 50 to 20%. Unfortunately does continue to smoke. Inpatient treatment was recommended yesterday however the patient declined the did present to the emergency department a ventrally. He states he is feeling much better now after receiving steroids and antibiotics for possible COPD exacerbation. Allergies Allergy/AdvReac Type Severity Reaction Status Date / Time simvastatin Allergy Mild MUSCLE Verified 10/28/20 23:03 ACHES Home Medications Medication Instructions Recorded Confirmed Type clopidogrel 75 mg tablet 75 mg PO DAILY 05/04/19 10/28/20 History ipratropium 0.5 mg-albuterol 3 mg 3 ml INH QID PRN 05/04/19 10/28/20 History (2.5 mg base)/3 mL nebulization soln tamsulosin 0.4 mg capsule 0.4 mg PO DAILY 05/04/19 10/28/20 History apixaban [Eliquis] 5 mg PO BID 10/28/20 10/28/20 History evolocumab [Repatha SureClick] 140 mg SUBCUT MONTHLY 10/28/20 10/28/20 History tynekolwbun-bmoguggjh-tepbkygc 1 inh INHALATION DAILY 10/28/20 10/28/20 History [Trelegy Ellipta] losartan 25 mg PO DAILY 10/28/20 10/28/20 History metoprolol succinate 100 mg PO DAILY 10/28/20 10/28/20 History montelukast 10 mg PO DAILY 10/28/20 10/28/20 History potassium chloride 20 meq PO DAILY 10/28/20 10/28/20 History quetiapine 25 mg PO HS 10/28/20 10/28/20 History spironolactone 25 mg PO DAILY 10/28/20 10/28/20 History torsemide 100 mg PO DAILY 10/28/20 10/28/20 History Patient History Social History Smoking Status: Current every day smoker Second Hand Exposure: Yes; Do You Dip or Chew Tobacco: No; Hx Alcohol Use: Yes Hx Substance Use: No Preferred Language: Turkmen Communication Ability: Effective Telecommunications Sales Representative Required: No Beliefs That Will Affect Care: None Current Living Situation: Spouse Other Information That Helps Us Care for You: No Feels Safe at Home: Yes Safety Concerns: Feels Safe At This Time Assistive Devices: Glasses Review of Systems Review of Systems: All systems reviewed & are unremarkable except as noted in HPI & below Physical Exam Physical Exam: General: Awake, alert and oriented x 3. No acute distress. HEENT: Normocephalic, atraumatic. Pupils equal, round and reactive to light and accommodation. Extraocular muscles are intact. Anicteric sclera. Moist mucous membranes. Neck: No JVD. No bruit. Cardiovascular: irregularly irregular, unable to appreciate murmur, rub or gallop. Pulmonary: Clear to auscultation bilaterally. No rales, rhonchi, or wheezing. Abdomen: Bowel sounds x 4, soft. No rebound, guarding or tenderness. No organomegaly. Extremities: No clubbing, cyanosis or edema. +2 pedal pulses bilaterally. Skin: Warm and dry. Results & Data ([facility]) Vital Signs (Past 12 Hours) Vital Signs Temp Pulse Pulse Resp BP BP Pulse Ox 10/29/20 11:12 10/29/20 08:02 119 H 17 125/67 96 10/29/20 08:00 36.8 C 91 H 10/29/20 07:22 103 H 20 94 10/29/20 04:00 36.9 C 101 H 22 137/84 94 Pulse Ox Pulse Ox 10/29/20 11:12 94 91 10/29/20 08:02 10/29/20 08:00 10/29/20 07:22 10/29/20 04:00
[2020-10-29] MEDS ORDERED: IPRATROPIUM BROMIDE NEB SOLN 0.02% 2.5 ML VIAL INH PRN (12:21)
[2020-10-29] MEDS ORDERED: LEVALBUTEROL 1.25MG/0.5ML NEB INH PRN (12:21)
[2020-10-29] MEDS: FUROSEMIDE 40 MG in SYRINGE 0 ML IV SCH ×2 (13:45→17:24)
--- NOTE | 2020-10-29 15:55 | Electrocardiogram Report ---
Test Reason : Blood Pressure : / mmHG Vent. Rate : 096 BPM Atrial Rate : 096 BPM P-R Int : 000 ms QRS Dur : 136 ms QT Int : 380 ms P-R-T Axes : 000 -57 091 degrees QTc Int : 480 ms Atrial fibrillation Left axis deviation Non-specific intra-ventricular conduction block Inferior infarct (cited on or before 28-OCT-2020) Cannot rule out Anterior infarct , age undetermined T wave abnormality, consider lateral ischemia Abnormal ECG When compared with ECG of 24-OCT-2017 06:09, Atrial fibrillation has replaced Sinus rhythm QRS duration has increased Minimal criteria for Anterior infarct are now Present Confirmed by Leonardo Green ([id number]) on 10/29/2020 3:55:01 PM Referred By: Donavan Barker Confirmed By:Raheel Green
[2020-10-29 20:35] LABS: BUN Creatinine Ratio 21.2 (10-20); Calcium 8.9 mg/dl (8.5-10.1); Creatinine Clr Calc Pharmacy 64.3 ml/min; Est GFR (African American) 56.2; Est GFR (Non-African American) 48.5; Magnesium 2.2 mg/dl (1.8-2.4); Potassium 4.1 mmol/L (3.5-5.1)
--- NOTE | 2020-10-29 21:51 | Hospitalist Progress Note ---
Date of Service October 29, 2020 Assessment & Plan (1) Acute on chronic systolic heart failure: Patient with worsening dyspnea and known low EF per recent echo. Diuretics started per Cardiology. Monitor daily weights, strict I/Os and continue low salt diet. (2) COPD exacerbation: ongoing tobacco use with chronic cough, no change in sputum purulence per his report today. Cont prednisone and doxycycline with nebs as needed. He is breathing well without wheezing on lung exam. Encouraged to quit smoking. (3) Atrial fibrillation with rapid ventricular response: cont Eliquis and beta norm. Heart rate is improved (4) CAD (coronary artery disease): stents received in 2019, cont medical management of coronary disease per home regimen. (5) Tobacco abuse disorder: still smoking, contemplative phase. (6) Morbid obesity: Lifestyle modifications advised (7) BRIAN (obstructive sleep apnea): CPAP intolerance per records. (8) DVT prophylaxis: Eliquis Full Code Dispo-to home when improved. DO Torres [facility] Hospitalist Admission and Anticipated Discharge Date Admission Date: October 28, 2020 Subjective 70 yo M who presented to the ER as a referral from Results & Data Results & Data ([facility]) Vital Signs (Past 12 Hours) Vital Signs Temp Pulse Pulse Resp BP Pulse Ox Pulse Ox 10/29/20 19:12 37.2 C 101 H 20 95/57 L 95 10/29/20 18:06 99 H 10/29/20 18:00 36.6 C 107 H 18 115/76 96 10/29/20 16:50 95 10/29/20 16:00 101 H 10/29/20 11:12 94 Pulse Ox 10/29/20 19:12 10/29/20 18:06 10/29/20 18:00 10/29/20 16:50 10/29/20 16:00 10/29/20 11:12 91 Laboratory Results Short CBC 10/28/20 10/29/20 Range/Units 21:40 04:37 WBC 8.27 7.23 (4.8-10.8) K/uL Hgb 12.3 L 11.9 L (14.0-18.0) g/dL Hct 37.3 L 35.8 L (42-52) % Plt Count 270 240 (130-400) K/uL BMP 10/28/20 10/29/20 10/29/20 21:40 04:37 20:02 Sodium 136 136 137 Potassium 3.4 L 4.3 D 4.1 Chloride 101 106 103 Carbon Dioxide 30 26 28 BUN 22 H 24 H 31 H Creatinine 1.28 1.26 1.44 H Glucose 93 154 H 124 H Calcium 9.2 8.8 8.9 Cardiac Enzymes 10/28/20 Range/Units 21:40 Troponin I < 0.015 (0-0.045) ng/ml Liver Function 10/28/20 Range/Units 21:40 Total Bilirubin 0.5 (0.2-1) mg/dl AST 17 (15-37) U/L ALT 25 (12-78) U/L Alkaline Phosphatase 83 (45-117) U/L Albumin 3.5 (3.4-5.0) gm/dl Medications Administered Current Inpatient Medications Acetaminophen (Acetaminophen 325 Mg Tab) 650 mg PO Q4H PRN PRN Reason: Pain or Fever Stop: 11/28/20 00:24 Apixaban (Apixaban 5 Mg Tablet) 5 mg PO BID [facility] Stop: 11/28/20 08:59 Last Admin: 10/29/20 20:11 Dose: 5 mg Documented by: Clopidogrel Bisulfate (Clopidogrel Bisulfate 75 Mg Tab) 75 mg PO DAILY [facility] Stop: 11/28/20 08:59 Last Admin: 10/29/20 08:15 Dose: 75 mg Documented by: Doxycycline Hyclate (Doxycycline Hyclate 100 Mg Cap) 100 mg PO BID [facility] Stop: 11/05/20 08:59 Last Admin: 10/29/20 20:11 Dose: 100 mg Documented by: Promethazine HCl 12.5 mg/ (Sodium Chloride) 50.5 mls @ 202 mls/hr IV Q6H PRN PRN Reason: Nausea And Vomiting Stop: 11/28/20 00:24 Furosemide 40 mg/ Syringe 4 mls @ 4 mls/min IV [id number] [facility] Stop: 11/28/20 13:09 Last Admin: 10/29/20 17:24 Dose: 4 mls/min Documented by: Ipratropium Mcmechen (Ipratropium [place] Neb Soln 0.02% 2.5 Ml Vial) 0.5 mg INH Q6R PRN PRN Reason: Shortness Of Breath Or Wheezin Stop: 11/28/20 06:59 Levalbuterol HCl (Levalbuterol 1.25mg/0.5ml Neb) 1.25 mg INH Q6R PRN PRN Reason: Shortness Of Breath Or Wheezin Stop: 11/28/20 06:59 Losartan Potassium (Losartan Potassium 25 Mg Tab) 25 mg PO DAILY BRITTANY Stop: 11/28/20 08:59 Last Admin: 10/29/20 08:15 Dose: 25 mg Documented by: Melatonin (Melatonin 3 Mg Tab) 3 mg PO HS PRN PRN Reason: Sleep Stop: 11/27/20 23:18 Last Admin: 10/29/20 01:21 Dose: 3 mg Documented by: Metoprolol Succinate (Metoprolol Succ 50mg Ext Rel Tab) 100 mg PO DAILY BRITTANY Stop: 11/28/20 08:59 Last Admin: 10/29/20 08:14 Dose: 100 mg Documented by: Montelukast Sodium (Montelukast Sodium 10 Mg Tablet) 10 mg PO DAILY BRITTANY Stop: 11/28/20 08:59 Last Admin: 10/29/20 08:14 Dose: 10 mg Documented by: Potassium Chloride (Potassium Chloride Crtab 20 Meq Tabcr) 20 meq PO BID BRITTANY Stop: 11/28/20 08:59 Last Admin: 10/29/20 20:11 Dose: 20 meq Documented by: Prednisone (Prednisone 20 Mg Tab) 40 mg PO DAILY BRITTANY Stop: 11/02/20 08:59 Last Admin: 10/29/20 08:14 Dose: 40 mg Documented by: Quetiapine Fumarate (Quetiapine Fumarate 25 Mg Tablet) 25 mg PO HS BRITTANY Stop: 11/28/20 20:59 Last Admin: 10/29/20 20:11 Dose: 25 mg Documented by: Spironolactone (Spironolactone 25 Mg Tab) 25 mg PO DAILY BRITTANY Stop: 11/28/20 08:59 Last Admin: 10/29/20 08:14 Dose: 25 mg Documented by: Tamsulosin HCl (Tamsulosin Hcl 0.4 Mg Cap) 0.4 mg PO DAILY BRITTANY Stop: 11/28/20 08:59 Last Admin: 10/29/20 08:14 Dose: 0.4 mg Documented by: Torsemide (Torsemide 100 Mg Tab) 100 mg PO DAILY BRITTANY Stop: 11/28/20 08:59 Last Admin: 10/29/20 08:14 Dose: 100 mg Documented by: Tramadol HCl (Tramadol Hcl 50 Mg Tablet) 25 - 50 mg PO Q4H PRN PRN Reason: Pain Stop: 11/28/20 00:24
[2020-10-30 07:15] LABS: Hemoglobin 12.5 g/dL (14.0-18.0); Mean Corpuscular Hemoglobin 29.1 pg (25-34); Mean Corpuscular Hgb Conc 32.9 g/dL (32-36); Mean Corpuscular Volume 88.4 fL (80-100); Mean Platelet Volume 10.6 fL (7.4-10.4); Platelet Count 268 K/uL (130-400); RDW Coefficient of Variation 15.8 % (11.5-14.5); RDW Standard Deviation 50.1 fL (36.4-46.3); White Blood Count 9.02 K/uL (4.8-10.8)
[2020-10-30 07:52] LABS: BUN Creatinine Ratio 25.6 (10-20); Creatinine Clr Calc Pharmacy 72.2 ml/min; Est GFR (African American) 65.4; Est GFR (Non-African American) 56.5; Potassium 3.6 mmol/L (3.5-5.1)
[2020-10-30] MEDS: DOXYCYCLINE HYCLATE 100 MG CAP PO SCH (08:30)
[2020-10-30] MEDS: METOPROLOL SUCC 50MG EXT REL TAB PO SCH (08:31)
[2020-10-30] MEDS: predniSONE 20 MG TAB PO SCH (08:31)
[2020-10-30] MEDS: POTASSIUM CHLORIDE CRTAB 20 MEQ TABCR PO SCH (08:31)
[2020-10-30] MEDS: APIXABAN 5 MG TABLET PO SCH (08:31)
[2020-10-30] MEDS: TAMSULOSIN HCL 0.4 MG CAP PO SCH (08:32)
[2020-10-30] MEDS: LOSARTAN POTASSIUM 25 MG TAB PO SCH (08:32)
[2020-10-30] MEDS: SPIRONOLACTONE 25 MG TAB PO SCH (08:32)
[2020-10-30] MEDS: MONTELUKAST SODIUM 10 MG TABLET PO SCH (08:32)
[2020-10-30] MEDS: CLOPIDOGREL BISULFATE 75 MG TAB PO SCH (08:33)
--- NOTE | 2020-10-30 11:19 | Cardiology Progress Note ---
Date of Service October 30, 2020 Assessment & Plan (1) COPD exacerbation: (2) CAD (coronary artery disease): (3) NICM (nonischemic cardiomyopathy): (4) Atrial fibrillation with rapid ventricular response: (5) BRIAN (obstructive sleep apnea): The patient is currently clinically stable. I believe if he wishes that he could return home at this time. I would continue his current medications and have him follow-up with Dr. Barker his outpatient loss prevention analyst. Admission and Anticipated Discharge Date Admission Date: October 29, 2020 Subjective Patient is anxious to return home. He does not understand why he needs to stay in the hospital. He feels well and has multiple visits of the run. Review of Systems Review of Systems: All systems reviewed & are unremarkable except as noted in Subjective Physical Exam Physical Exam: General: no acute distress and stated age Head: normocephalic, no masses, lesions, tenderness or abnormalities Eyes: conjunctiva are pink and non-injected, sclera clear Neck: supple, no adenopathy, no bruits, normal jugular venous pulse, no hepatojugular reflux Chest: normal shape and normal respiratory effort Lungs: clear to auscultation and percussion Cardiac Exam: - irregular rate & rhythm, no murmurs gallops or rubs - normal S1, normal S2 Pulses: 2(+) throughout Abdomen: abdomen soft, non-tender, no abnormal masses and no hepatosplenomegaly Musculoskeletal: no gait disturbance, no joint inflammation, no deforming arthritis Extremities: no edema and no cyanosis Neuro: grossly normal exam Results & Data ([facility]) Vital Signs (Past 12 Hours) Vital Signs Temp Pulse Pulse Resp BP Pulse Ox 10/30/20 07:13 36.3 C L 93 H 19 108/74 96 10/30/20 03:20 36.3 C L 85 25 H 100/50 L 94 10/30/20 00:15 80 10/29/20 23:33 36.7 C 96 H 16 119/68 91 Laboratory Results Laboratory Results - last 24 hr 10/29/20 10/30/20 10/30/20 20:02 06:41 06:41 WBC 9.02 RBC 4.30 L Hgb 12.5 L Hct 38.0 L MCV 88.4 MCH 29.1 MCHC 32.9 RDW Std Deviation 50.1 H RDW Coeff of Minnie 15.8 H Plt Count 268 MPV 10.6 H Sodium 137 139 Potassium 4.1 3.6 Chloride 103 104 Carbon Dioxide 28 29 Anion Gap 6.0 6.0 BUN 31 H 33 H Creatinine 1.44 H 1.27 Est Cr Clr Drug Dosing 64.3 72.2 Est GFR ( Amer) 56.2 65.4 Est GFR (Non-Af Amer) 48.5 56.5 BUN/Creatinine Ratio 21.2 H 25.6 H Glucose 124 H 102 H Calcium 8.9 9.0 Magnesium 2.2 Diagnostic Findings Telemetry indicates atrial fibrillation with controlled heart rates at rest. Some elevation with activity. Medications Administered Current Inpatient Medications Acetaminophen (Acetaminophen 325 Mg Tab) 650 mg PO Q4H PRN PRN Reason: Pain or Fever Stop: 11/28/20 00:24 Apixaban (Apixaban 5 Mg Tablet) 5 mg PO BID [facility] Stop: 11/28/20 08:59 Last Admin: 10/30/20 08:31 Dose: 5 mg Documented by: Clopidogrel Bisulfate (Clopidogrel Bisulfate 75 Mg Tab) 75 mg PO DAILY [facility] Stop: 11/28/20 08:59 Last Admin: 10/30/20 08:33 Dose: 75 mg Documented by: Doxycycline Hyclate (Doxycycline Hyclate 100 Mg Cap) 100 mg PO BID [facility] Stop: 11/05/20 08:59 Last Admin: 10/30/20 08:30 Dose: 100 mg Documented by: Promethazine HCl 12.5 mg/ (Sodium Chloride) 50.5 mls @ 202 mls/hr IV Q6H PRN PRN Reason: Nausea And Vomiting Stop: 11/28/20 00:24 Furosemide 40 mg/ Syringe 4 mls @ 4 mls/min IV [id number] [facility] Stop: 11/28/20 13:09 Last Admin: 10/29/20 17:24 Dose: 4 mls/min Documented by: Ipratropium [place] (Ipratropium [place] Neb Soln 0.02% 2.5 Ml Vial) 0.5 mg INH Q6R PRN PRN Reason: Shortness Of Breath Or Wheezin Stop: 11/28/20 06:59 Levalbuterol HCl (Levalbuterol 1.25mg/0.5ml Neb) 1.25 mg INH Q6R PRN PRN Reason: Shortness Of Breath Or Wheezin Stop: 11/28/20 06:59 Losartan Potassium (Losartan Potassium 25 Mg Tab) 25 mg PO DAILY BRITTAYN Stop: 11/28/20 08:59 Last Admin: 10/30/20 08:32 Dose: 25 mg Documented by: Melatonin (Melatonin 3 Mg Tab) 3 mg PO HS PRN PRN Reason: Sleep Stop: 11/27/20 23:18 Last Admin: 10/29/20 01:21 Dose: 3 mg Documented by: Metoprolol Succinate (Metoprolol Succ 50mg Ext Rel Tab) 100 mg PO DAILY BRITTANY Stop: 11/28/20 08:59 Last Admin: 10/30/20 08:31 Dose: 100 mg Documented by: Montelukast Sodium (Montelukast Sodium 10 Mg Tablet) 10 mg PO DAILY BRITTANY Stop: 11/28/20 08:59 Last Admin: 10/30/20 08:32 Dose: 10 mg Documented by: Potassium Chloride (Potassium Chloride Crtab 20 Meq Tabcr) 20 meq PO BID BRITTANY Stop: 11/28/20 08:59 Last Admin: 10/30/20 08:31 Dose: 20 meq Documented by: Prednisone (Prednisone 20 Mg Tab) 40 mg PO DAILY BRITTANY Stop: 11/02/20 08:59 Last Admin: 10/30/20 08:31 Dose: 40 mg Documented by: Quetiapine Fumarate (Quetiapine Fumarate 25 Mg Tablet) 25 mg PO HS BRITTANY Stop: 11/28/20 20:59 Last Admin: 10/29/20 20:11 Dose: 25 mg Documented by: Spironolactone (Spironolactone 25 Mg Tab) 25 mg PO DAILY BRITTANY Stop: 11/28/20 08:59 Last Admin: 10/30/20 08:32 Dose: 25 mg Documented by: Tamsulosin HCl (Tamsulosin Hcl 0.4 Mg Cap) 0.4 mg PO DAILY BRITTANY Stop: 11/28/20 08:59 Last Admin: 10/30/20 08:32 Dose: 0.4 mg Documented by: Torsemide (Torsemide 100 Mg Tab) 100 mg PO DAILY BRITTANY Stop: 11/28/20 08:59 Last Admin: 10/29/20 08:14 Dose: 100 mg Documented by: Tramadol HCl (Tramadol Hcl 50 Mg Tablet) 25 - 50 mg PO Q4H PRN PRN Reason: Pain Stop: 11/28/20 00:24
--- NOTE | 2020-10-30 12:13 | Discharge Summary ---
Date of Service October 30, 2020 Admission HPI Per Admitting Provider History obtained from patient, family, and records. Medical history significant for chronic systolic heart failure secondary to ischemic cardiomyopathy (EF 20%, TTE 2020), CAD status post stent, PVD status post surgery, A. fib on Eliquis, COPD, ongoing tobacco abuse, BRIAN (CPAP intolerance as per records), anxiety/mood disorder. Last confinement October 2017 for shortness of breath. Patient noted worsening shortness of breath on exertion, fatigue in the last month. No chest pain, weight stable as per patient. Stable CAD on cardiac catheterization done at [facility] 2 weeks ago. Worsening shortness of breath, junky cough symptoms in the last week without chest pain. No fever, no chills. No aspiration. No recent COVID-19 contacts. Patient seen at [facility] sterile processing manager's office yesterday afternoon. Patient advised by sterile processing manager to go to the hospital. 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 Admission Exam Per Admitting Provider GENERAL: Slightly uncomfortable, episodic tachypnea, obese SKIN: Normal color, warm HEENT: [place] palpebral conjunctivae, no ptosis, moist buccal mucosa NECK : Supple, short neck, no tenderness CHEST : Decreased breath sounds, no tenderness HEART : Diminished S1-S2, irregular, no obvious murmurs ABDOMEN: Some distention, nontender EXTREMITIES : Minimal LE swelling, no LE tenderness, no other conspicuous deformities noted NEUROLOGIC : Coherent, no facial asymmetry, no other gross focality Principal Diagnosis COPD exacerbation Acute on chronic systolic heart failure Atrial fibrillation with rapid ventricular response Tobacco dependence on cigarettes Discharge Exam CONSTITUTIONAL: obese, vitals as above, generally well-appearing, NAD EYES: normal conjunctivae, no scleral icterus ENT: external ear and nose normal, MMM RESPIRATORY: clear to auscultation bilaterally, no crackles, rales or wheezes, normal respiratory effort CARDIOVASCULAR: regular rate and rhythm, S1 and 2 heard without murmurs, gallops or rubs, no JVD, no peripheral edema GASTROINTESTINAL: soft, nontender, nondistended, no guarding MUSCULOSKELETAL: strength 5/5 throughout, head is normocephalic and atraumatic SKIN: warm and dry NEUROLOGIC: CN 2-12 grossly intact, normal cognition, normal speech, no gross focal deficits. PSYCHIATRIC: alert cooperative and oriented to person, place and time. Discharge Data Allergies Allergy/AdvReac Type Severity Reaction Status Date / Time sacubitril [From Entresto] Allergy Severe THROAT Verified 11/04/20 12:17 SWELLING valsartan [From Entresto] Allergy Severe THROAT Verified 11/04/20 12:17 SWELLING simvastatin AdvReac Mild MUSCLE Verified 11/04/20 12:16 ACHES Consultations 10/28/20 22:20 ED Decision to Admit Stat 10/29/20 00:25 Consult Cardiology Routine Hospital Course (1) COPD exacerbation: ongoing tobacco use with chronic cough, no change in sputum purulence per his report today. Cont prednisone and doxycycline with nebs as needed. He is breathing well without wheezing on lung exam. Encouraged to quit smoking. (2) Acute on chronic systolic heart failure: Received intravenous furosemide during his stay with good response. Denies significant shortness of breath or other symptoms at time of discharge and reports feeling well. Very anxious to get home. Noted to have EF 25% on recent echo at [facility]. Cardiology will follow up with him in next few weeks for repeat echocardiogram and evaluation. (3) Atrial fibrillation with rapid ventricular response: cont Eliquis and beta norm. Heart rate is in the 90s-low 100s today but he is asymptomatic and very anxious to return home. Advised to continue his beta norm. (4) CAD (coronary artery disease): stents received in 2019, cont medical management of c oronary disease per home regimen. (5) Tobacco abuse disorder: Contemplative phase (6) Morbid obesity: Lifestyle modifications recommended (7) BRIAN (obstructive sleep apnea): CPAP intolerance per records. Total Time Total Time Spent Total Time Spent (In Minutes): 60 Total Time Includes: Examination of the Patient, Discharge Planning, Medication Reconciliation and Communication With Other Providers Discharge Plan Discharge Items Patient Disposition: Home - Self-Care Reason For Visit: SOB, AF Discharge Diagnosis: COPD exacerbation Acute on chronic systolic heart failure Atrial fibrillation with rapid ventricular response Tobacco dependence on cigarettes Activity: Resume your previous activity Non-emergency contact: Primary Care Provider Call non-emergency contact if: you have any medication questions, your symptoms worsen, your pain is not controlled, your pain is worsening, your pain is unusual for you, your pain is concerning for you and you have a fever Follow-up/Referrals: Larry Saravia PA-C [Primary Care Provider] - 11/04/20 2:20 pm Diet: Heart Healthy Chao Attending Provider Instructions: Please take all medications as instructed on discharge list below. Please follow up with Dr. Barker in the [facility] Cardiology clinic within the next couple of months or as otherwise instructed. It is recommended that you follow-up with your primary care provider within one week of hospital discharge. This visit is important to ensure your breathing is improving, help you work on quitting smoking altogether, ensure you are doing well on all your medications and make sure things are generally going well post- hospital discharge. It is strongly recommended that you quit smoking completely as this is very bad for your health. [facility] has a smoking cessation course available, and other options include using a quit line for some additional counseling. The hotline number is 6-198 QUIT NOW. Please strongly consider lifestyle changes that will help you decrease your overall percent body fat and improve your lean muscle mass, as this will also lead to good health and feeling well. It was a pleasure taking care of you! Please call if you have any questions or problems. You can reach a [facility] hospitalist on duty at [facility] 24 hours a day by calling [phone]. Take care of yourself. Xochitl Jon DO [facility] [employer] Valve Technician Provider Instructions: Call 911 and go to the Emergency Room if: * You have tightness or pain in your chest that does not go away with rest or Nitroglycerin * You are very short of breath even with rest Call your doctor if any of the following symptoms or problems start or get worse: * Shortness of breath or difficulty breathing * Wake up at night short of breath * Chest pain * Cough * Swelling of your hands, fee, or legs * More fatigued or tired with your normal activity * Palpitations - sudden fast heart beats WEIGHT * Weigh yourself every morning after using the bathroom. * Use the same scale. * Wear the same amount of clothing. * Write your weight down on your chart. * Call your doctor if you gain more than 2-3 pounds in 1-2 days. MEDICATIONS * Use this discharge instruction sheet for instructions. * Take your medications at the time your doctor ordered. * Do not skip a dose of your medicines. * If you miss a dose of medicine, take as soon as possible, but DO NOT DOUBLE A DOSE. * Read your medicine information when you get home. * Know all of the side effects of your medicine. * Call your doctor's office if you have any side effects. * Be sure all of your doctors know what medicine and herbs you take (including cold, flu, and herbal medicine). * Pain Medicine: If you do not get relief from your pain, please call your doctor for help. Take the following with you to your follow-up doctor appointments: * Weight Chart * Medication List * List of questions Do not drink excessive alcohol, beer or wine. Pending Studies at Discharge: No Stand-Alone Forms: My [facility] [place], Smoking Cessation Medications and DC Order Prescriptions: Continued ipratropium-albuterol 0.5 mg-3 mg(2.5 mg base)/3 mL solution for nebulization 3 ml INH QID PRN (Reason: Shortness Of Breath Or Wheezing) RF: 0 tamsulosin [Flomax] 0.4 mg capsule 0.4 mg PO DAILY RF: 0 clopidogrel [Plavix] 75 mg tablet 75 mg PO DAILY RF: 0 quetiapine 25 mg tablet 25 mg PO HS PRN (Reason: Sleep) RF: 0 metoprolol succinate 100 mg tablet extended release 24 hr 100 mg PO DAILY RF: 0 potassium chloride 10 mEq tablet extended release 20 meq PO DAILY RF: 0 spironolactone 25 mg tablet 25 mg PO DAILY RF: 0 torsemide 100 mg tablet 100 mg PO DAILY RF: 0 losartan 25 mg tablet 25 mg PO DAILY RF: 0 montelukast 10 mg tablet 10 mg PO DAILY RF: 0 Eliquis 5 mg tablet 5 mg PO BID RF: 0 Trelegy Ellipta 100-62.5-25 mcg blister with device 1 inh INHALATION DAILY RF: 0 Repatha SureClick 140 mg/mL Pen Injector 140 mg SUBCUT MONTHLY RF: 0 Discharge Orders: Discharge Order (Routine); Ordered 10/30/20 Ordered By: Xochitl Jon Admission Data Admit Date/Time: 10/29/20 19:51 Attending Provider: Xochitl Jon Admit Provider: Armando San Primary Care Provider: Larry Saravia Other Providers: Armando San ; Wayne Bowie ; Jayesh Youngblood Other Interventions: Discharge Summary Assessment (RN) Last Done: 10/30/20 13:43
--- NOTE | 2020-11-15 03:57 | Emergency Department Note ---
History of Present Illness General Chief complaint: Shortness of Breath/Dyspnea Stated complaint: SOB Time Seen by Provider: 10/28/20 21:27 History of Present Illness This 70-year-old presents to the ER complaining of increasing shortness of breath who was referred by his manager shipping Location: Chest Quality: Hard to breathe Severity: Moderate Duration: Past few days Timing: Started few days ago Context: Patient was sent in by the manager shipping Modifying factors: better with rest; worse with exertion Patient denies fever, chills, abdominal pain, flulike illness. Home Medications Medication Instructions Recorded Confirmed Type clopidogrel 75 mg tablet 75 mg PO DAILY 05/04/19 11/04/20 History ipratropium 0.5 mg-albuterol 3 mg 3 ml INH QID PRN 05/04/19 11/04/20 History (2.5 mg base)/3 mL nebulization soln tamsulosin 0.4 mg capsule 0.4 mg PO DAILY 05/04/19 11/04/20 History Eliquis 5 mg PO BID 10/28/20 11/04/20 History Repatha SureClick 140 mg SUBCUT MONTHLY 10/28/20 11/04/20 History Trelegy Ellipta 1 inh INHALATION DAILY 10/28/20 11/04/20 History losartan 25 mg PO DAILY 10/28/20 11/04/20 History metoprolol succinate 100 mg PO DAILY 10/28/20 11/04/20 History montelukast 10 mg PO DAILY 10/28/20 11/04/20 History potassium chloride 20 meq PO DAILY 10/28/20 11/04/20 History quetiapine 25 mg PO HS PRN 10/28/20 11/04/20 History spironolactone 25 mg PO DAILY 10/28/20 11/04/20 History torsemide 100 mg PO DAILY 10/28/20 11/04/20 History Allergies Allergy/AdvReac Type Severity Reaction Status Date / Time sacubitril [From Entresto] Allergy Severe THROAT Verified 11/04/20 12:17 SWELLING valsartan [From Entresto] Allergy Severe THROAT Verified 11/04/20 12:17 SWELLING simvastatin AdvReac Mild MUSCLE Verified 11/04/20 12:16 ACHES Past Med/Surg History Medical History Atrial fibrillation NEW ONSET On Eliquis CAD (coronary artery disease) PCI of OM2 and diagonal February 2019 Chronic obstructive pulmonary disease Admitted for exacerbation 10/28/20-10/30/20 Chronic systolic heart failure secondary to ischemic cardiomyopathy (EF 20% on 2020 CLAIRE) Claustrophobia History of skin cancer Hyperlipidemia Hypertension Myocardial Infarction 1997 PVD (peripheral vascular disease) S/p AAA repair Restless leg syndrome Sleep apnea BIPAP (STATES DOES NOT USE) Surgical History Stephen's cyst of knee X 2 REMOVED H/O abdominal surgery INTESTINAL POLYP REMOVAL AT AGE 5 History of cardiac cath MULTIPLE (LAST ONE LAST WEEK AT [facility]/NO STENTS) History of cataract surgery RT/LEFT History of colonoscopy History of esophagogastroduodenoscopy (EGD) History of heart artery stent 1997 >2 STENTS PLACED TOTAL 4 STENTS (LAST ONE PLACED 1-2 YEARS AGO AT [facility]) History of open reduction and internal fixation (ORIF) procedure RT LEG (TIB/FIB) History of tooth extraction Hx of melanoma excision LEFT SHOULDER S/P AAA repair 2 YEARS AGO AT [facility] Family History Father Family history of diabetes mellitus Other No family history of adverse response to anesthesia Social History Smoking Status: Current every day smoker Cigarettes Per Day: 20 CIG DAILY; Second Hand Exposure: Yes; Do You Dip or Chew Tobacco: No; Tobacco Cessation Education Requested by Patient: No Hx Alcohol Use: Yes Alcohol type: beer and hard liquor Hx Substance Use: No Preferred Language: Faroese Communication Ability: Effective Vascular Surgery Physician Required: No Beliefs That Will Affect Care: None Current Living Situation: Spouse Feels Safe at Home: Yes Safety Concerns: Feels Safe At This Time Assistive Devices: Glasses and Hearing Aid - Bilateral Assistive Devices Comment: READING GLASSES Review of Systems A total of 10 systems reviewed and were otherwise negative Physical Exam VITALS: Vitals are noted on the nurse's note and reviewed by myself. Vital signs stable. GENERAL: Pleasant male, in no acute distress, nondiaphoretic, well-developed well-nourished. SKIN: Capillary reflex less than 2 seconds. HEENT: Normocephalic. PERRLA. EOMI. Nares patent. Mucous membranes moist. Neck is supple without nuchal rigidity. HEART: Regular rate and rhythm LUNGS: Bibasilar rales. No retractions or accessory muscle use. ABDOMEN: Positive bowel sounds x 4. Normal tympanic percussion. Soft, nontender, without masses or organomegaly. Dai sign negative. No guarding or rebound tenderness. MUSCULOSKELETAL: No gross musculoskeletal defects. NEURO: Patient was alert and oriented to person place and time. No focal neurological deficits. Course Administered Medications Discontinued Medications Apixaban (Apixaban 5 Mg Tablet) 5 mg PO BID BRITTANY Stop: 11/28/20 08:59 Last Admin: 10/30/20 08:31 Dose: 5 mg Documented by: [id number] Admin: 10/29/20 20:11 Dose: 5 mg Documented by: [id number] Admin: 10/29/20 08:51 Dose: 5 mg Documented by: [id number] Clopidogrel Bisulfate (Clopidogrel Bisulfate 75 Mg Tab) 75 mg PO DAILY BRITTANY Stop: 11/28/20 08:59 Last Admin: 10/30/20 08:33 Dose: 75 mg Documented by: [id number] Admin: 10/29/20 08:15 Dose: 75 mg Documented by: [id number] Doxycycline Hyclate (Doxycycline Hyclate 100 Mg Cap) 100 mg PO BID BRITTANY Stop: 11/05/20 08:59 Last Admin: 10/30/20 08:30 Dose: 100 mg Documented by: [id number] Admin: 10/29/20 20:11 Dose: 100 mg Documented by: [id number] Admin: 10/29/20 08:13 Dose: 100 mg Documented by: [id number] Methylprednisolone 40 mg/ (Syringe) 0.64 mls @ 1.5 mls/min IV NOW STA Stop: 10/28/20 23:05 Last Admin: 10/28/20 23:33 Dose: 1.5 mls/min Documented by: [id number] Doxycycline Hyclate 100 mg/ (Dextrose) 110 mls @ 50 mls/hr IV NOW STA Stop: 10/29/20 01:16 Last Infusion: 10/29/20 01:45 Dose: 0 mls/hr Documented by: [id number] Admin: 10/28/20 23:33 Dose: 50 mls/hr Documented by: [id number] Albumin Human (Albumin 25%) 12.5 gm in 50 mls @ 50 mls/hr IV Q1H ONE Stop: 10/29/20 01:24 Last Infusion: 10/29/20 02:22 Dose: 0 mls/hr Documented by: [id number] Admin: 10/29/20 01:22 Dose: 50 mls/hr Documented by: [id number] Albumin Human (Albumin 25%) 12.5 gm in 50 mls @ 50 mls/hr IV Q1H ONE Stop: 10/29/20 02:59 Last Infusion: 10/29/20 02:54 Dose: 0 mls/hr Documented by: [id number] Admin: 10/29/20 01:54 Dose: 50 mls/hr Documented by: [id number] Furosemide 40 mg/ Syringe 4 mls @ 4 mls/min IV [id number] BRITTANY Stop: 11/28/20 13:09 Last Admin: 10/29/20 17:24 Dose: 4 mls/min Documented by: [id number] Admin: 10/29/20 13:45 Dose: 4 mls/min Documented by: [id number] Ipratropium [place] (Ipratropium [place] Neb Soln 0.02% 2.5 Ml Vial) 0.5 mg INH NOW STA Stop: 10/28/20 23:11 Last Admin: 10/28/20 23:16 Dose: 0.5 mg Documented by: [id number] Ipratropium [place] (Ipratropium [place] Neb Soln 0.02% 2.5 Ml Vial) 0.5 mg INH Q6R BRITTANY Stop: 11/28/20 06:59 Last Admin: 10/29/20 07:21 Dose: 0.5 mg Documented by: [id number] Levalbuterol HCl (Levalbuterol 1.25mg/0.5ml Neb) 1.25 mg INH NOW STA Stop: 10/28/20 23:11 Last Admin: 10/28/20 23:16 Dose: 1.25 mg Documented by: [id number] Levalbuterol HCl (Levalbuterol 1.25mg/0.5ml Neb) 1.25 mg INH Q6R BRITTANY Stop: 11/28/20 06:59 Last Admin: 10/29/20 07:21 Dose: 1.25 mg Documented by: [id number] Losartan Potassium (Losartan Potassium 25 Mg Tab) 25 mg PO DAILY BRITTANY Stop: 11/28/20 08:59 Last Admin: 10/30/20 08:32 Dose: 25 mg Documented by: [id number] Admin: 10/29/20 08:15 Dose: 25 mg Documented by: [id number] Melatonin (Melatonin 3 Mg Tab) 3 mg PO HS PRN PRN Reason: Sleep Stop: 11/27/20 23:18 Last Admin: 10/29/20 01:21 Dose: 3 mg Documented by: [id number] Metoprolol Succinate (Metoprolol Succ 50mg Ext Rel Tab) 100 mg PO DAILY BRITTANY Stop: 11/28/20 08:59 Last Admin: 10/30/20 08:31 Dose: 100 mg Documented by: [id number] Admin: 10/29/20 08:14 Dose: 100 mg Documented by: [id number] Metoprolol Tartrate (Metoprolol Tartrate 50 Mg Tab) 12.5 mg PO NOW STA Stop: 10/28/20 23:20 Last Admin: 10/29/20 01:20 Dose: 12.5 mg Documented by: [id number] Montelukast Sodium (Montelukast Sodium 10 Mg Tablet) 10 mg PO DAILY BRITTANY Stop: 11/28/20 08:59 Last Admin: 10/30/20 08:32 Dose: 10 mg Documented by: [id number] Admin: 10/29/20 08:14 Dose: 10 mg Documented by: [id number] Potassium Chloride (Potassium Chloride Crtab 20 Meq Tabcr) 60 meq PO NOW STA Stop: 10/28/20 22:29 Last Admin: 10/28/20 22:38 Dose: 60 meq Documented by: [id number] Potassium Chloride (Potassium Chloride Crtab 20 Meq Tabcr) 20 meq PO BID BRITTANY Stop: 11/28/20 08:59 Last Admin: 10/30/20 08:31 Dose: 20 meq Documented by: [id number] Admin: 10/29/20 20:11 Dose: 20 meq Documented by: [id number] Admin: 10/29/20 08:14 Dose: 20 meq Documented by: [id number] Prednisone (Prednisone 20 Mg Tab) 40 mg PO DAILY BRITTANY Stop: 11/02/20 08:59 Last Admin: 10/30/20 08:31 Dose: 40 mg Documented by: [id number] Admin: 10/29/20 08:14 Dose: 40 mg Documented by: [id number] Quetiapine Fumarate (Quetiapine Fumarate 25 Mg Tablet) 25 mg PO HS BRITTANY Stop: 11/28/20 20:59 Last Admin: 10/29/20 20:11 Dose: 25 mg Documented by: [id number] Admin: 10/29/20 01:22 Dose: 25 mg Documented by: [id number] Spironolactone (Spironolactone 25 Mg Tab) 25 mg PO DAILY BRITTANY Stop: 11/28/20 08:59 Last Admin: 10/30/20 08:32 Dose: 25 mg Documented by: [id number] Admin: 10/29/20 08:14 Dose: 25 mg Documented by: [id number] Tamsulosin HCl (Tamsulosin Hcl 0.4 Mg Cap) 0.4 mg PO DAILY BRITTANY Stop: 11/28/20 08:59 Last Admin: 10/30/20 08:32 Dose: 0.4 mg Documented by: [id number] Admin: 10/29/20 08:14 Dose: 0.4 mg Documented by: [id number] Torsemide (Torsemide 100 Mg Tab) 100 mg PO DAILY BRITTANY Stop: 11/28/20 08:59 Last Admin: 10/29/20 08:14 Dose: 100 mg Documented by: [id number] Medical Decision Making Medical Records Attestation: I reviewed the patient's medical records. Home Medications Current Medication List: was personally reviewed by me Laboratory Data Attestation: I reviewed the patient's lab results. Result diagrams: 10/30/20 06:41 10/30/20 06:41 Lab Results 10/28/20 10/28/20 10/28/20 Range/Units 21:40 21:40 21:40 WBC 8.27 (4.8-10.8) K/uL RBC 4.20 L (4.7-6.1) M/uL Hgb 12.3 L (14.0-18.0) g/dL Hct 37.3 L (42-52) % MCV 88.8 (80-100) fL MCH 29.3 (25-34) pg MCHC 33.0 (32-36) g/dL RDW Std Deviation 50.9 H (36.4-46.3) fL RDW Coeff of Minnie 15.8 H (11.5-14.5) % Plt Count 270 (130-400) K/uL MPV 10.9 H (7.4-10.4) fL Immature Gran % (Auto) 0.2 % Neut % (Auto) 74.1 % Lymph % (Auto) 16.3 % [place] % (Auto) 8.0 % Eos % (Auto) 1.3 % Baso % (Auto) 0.1 % Neut # (Auto) 6.12 (1.4-6.5) K/uL Lymph # (Auto) 1.35 (1.2-3.4) K/uL [place] # (Auto) 0.66 H (0.11-0.59) K/uL Eos # (Auto) 0.11 (0-0.5) K/uL Baso # (Auto) 0.01 (0-0.2) K/uL Immature Gran # (Auto) 0.02 (0.00-0.02) K/uL APTT 25.7 (21.0-31.0) Seconds PTT Ratio 1.0 Sodium 136 (136-145) mmol/L Potassium 3.4 L (3.5-5.1) mmol/L Chloride 101 (98-107) mmol/L Carbon Dioxide 30 (21-32) mmol/L Anion Gap 5.0 (3-11) BUN 22 H (7-18) mg/dl Creatinine 1.28 (0.6-1.4) mg/dl Est Cr Clr Drug Dosing 67.2 ml/min Est GFR ( Amer) 64.8 Est GFR (Non-Af Amer) 55.9 BUN/Creatinine Ratio 16.9 (10-20) Glucose 93 (70-99) mg/dl Lactate (0.4-2.0) mmol/L Calcium 9.2 (8.5-10.1) mg/dl Magnesium 2.2 (1.8-2.4) mg/dl Total Bilirubin 0.5 (0.2-1) mg/dl AST 17 (15-37) U/L ALT 25 (12-78) U/L Alkaline Phosphatase 83 (45-117) U/L Troponin I < 0.015 (0-0.045) ng/ml NT-Pro-B Natriuret Pep 1707 H (0-900) pg/ml Total Protein 7.5 (6.4-8.2) gm/dl Albumin 3.5 (3.4-5.0) gm/dl Globulin 4.0 (2.5-4.0) gm/dl Albumin/Globulin Ratio 0.9 (0.9-2) Lipase 238 (73-393) U/L COVID-19 Eval Order SARS-CoV-2 (PCR) (Negative) Influenza Type A (PCR) (Neg) Influenza Type B (PCR) (Neg) RSV (RT-PCR) (Neg) 10/28/20 10/28/20 10/28/20 Range/Units 22:01 22:01 22:51 WBC (4.8-10.8) K/uL RBC (4.7-6.1) M/uL Hgb (14.0-18.0) g/dL Hct (42-52) % MCV (80-100) fL MCH (25-34) pg MCHC (32-36) g/dL RDW Std Deviation (36.4-46.3) fL RDW Coeff of Minnie (11.5-14.5) % Plt Count (130-400) K/uL MPV (7.4-10.4) fL Immature Gran % (Auto) % Neut % (Auto) % Lymph % (Auto) % [place] % (Auto) % Eos % (Auto) % Baso % (Auto) % Neut # (Auto) (1.4-6.5) K/uL Lymph # (Auto) (1.2-3.4) K/uL [place] # (Auto) (0.11-0.59) K/uL Eos # (Auto) (0-0.5) K/uL Baso # (Auto) (0-0.2) K/uL Immature Gran # (Auto) (0.00-0.02) K/uL APTT (21.0-31.0) Seconds PTT Ratio Sodium (136-145) mmol/L Potassium (3.5-5.1) mmol/L Chloride (98-107) mmol/L Carbon Dioxide (21-32) mmol/L Anion Gap (3-11) BUN (7-18) mg/dl Creatinine (0.6-1.4) mg/dl Est Cr Clr Drug Dosing ml/min Est GFR ( Amer) Est GFR (Non-Af Amer) BUN/Creatinine Ratio (10-20) Glucose (70-99) mg/dl Lactate 1.9 (0.4-2.0) mmol/L Calcium (8.5-10.1) mg/dl Magnesium (1.8-2.4) mg/dl Total Bilirubin (0.2-1) mg/dl AST (15-37) U/L ALT (12-78) U/L Alkaline Phosphatase (45-117) U/L Troponin I (0-0.045) ng/ml NT-Pro-B Natriuret Pep (0-900) pg/ml Total Protein (6.4-8.2) gm/dl Albumin (3.4-5.0) gm/dl Globulin (2.5-4.0) gm/dl Albumin/Globulin Ratio (0.9-2) Lipase (73-393) U/L COVID-19 Eval Order Cov[facility]Rsv at [facility] SARS-CoV-2 (PCR) NEGATIVE (Negative) Influenza Type A (PCR) Negative (Neg) Influenza Type B (PCR) Negative (Neg) RSV (RT-PCR) Negative (Neg) 10/29/20 10/29/20 Range/Units 04:37 04:37 WBC 7.23 (4.8-10.8) K/uL RBC 4.05 L (4.7-6.1) M/uL Hgb 11.9 L (14.0-18.0) g/dL Hct 35.8 L (42-52) % MCV 88.4 (80-100) fL MCH 29.4 (25-34) pg MCHC 33.2 (32-36) g/dL RDW Std Deviation 50.3 H (36.4-46.3) fL RDW Coeff of Minnie 15.6 H (11.5-14.5) % Plt Count 240 (130-400) K/uL MPV 10.6 H (7.4-10.4) fL Immature Gran % (Auto) 0.0 % Neut % (Auto) 91.2 % Lymph % (Auto) 6.6 % [place] % (Auto) 1.8 % Eos % (Auto) 0.3 % Baso % (Auto) 0.1 % Neut # (Auto) 6.59 H (1.4-6.5) K/uL Lymph # (Auto) 0.48 L (1.2-3.4) K/uL [place] # (Auto) 0.13 (0.11-0.59) K/uL Eos # (Auto) 0.02 (0-0.5) K/uL Baso # (Auto) 0.01 (0-0.2) K/uL Immature Gran # (Auto) 0.00 (0.00-0.02) K/uL APTT (21.0-31.0) Seconds PTT Ratio Sodium 136 (136-145) mmol/L Potassium 4.3 D (3.5-5.1) mmol/L Chloride 106 (98-107) mmol/L Carbon Dioxide 26 (21-32) mmol/L Anion Gap 4.0 (3-11) BUN 24 H (7-18) mg/dl Creatinine 1.26 (0.6-1.4) mg/dl Est Cr Clr Drug Dosing 73.7 ml/min Est GFR ( Amer) 66.1 Est GFR (Non-Af Amer) 57.0 BUN/Creatinine Ratio 19.0 (10-20) Glucose 154 H (70-99) mg/dl Lactate (0.4-2.0) mmol/L Calcium 8.8 (8.5-10.1) mg/dl Magnesium (1.8-2.4) mg/dl Total Bilirubin (0.2-1) mg/dl AST (15-37) U/L ALT (12-78) U/L Alkaline Phosphatase (45-117) U/L Troponin I (0-0.045) ng/ml NT-Pro-B Natriuret Pep (0-900) pg/ml Total Protein (6.4-8.2) gm/dl Albumin (3.4-5.0) gm/dl Globulin (2.5-4.0) gm/dl Albumin/Globulin Ratio (0.9-2) Lipase (73-393) U/L COVID-19 Eval Order SARS-CoV-2 (PCR) (Negative) Influenza Type A (PCR) (Neg) Influenza Type B (PCR) (Neg) RSV (RT-PCR) (Neg) Imaging Data Attestation: I personally reviewed and interpreted this imaging study as follows: MDM Narrative Prior records/ancillary studies reviewed. Triage Nursing notes reviewed. Additional history obtained from family. The patient's history was concerning for distal Differential diagnosis: Etiologies such as cardiac ischemia, aortic dissection, pulmonary embolism, pneumonia, pneumothorax, musculoskeletal, infections, pericarditis, myocarditis, esophageal rupture, gastrointestinal, as well as others were entertained. Physical examination: As above. ER treatment provided: An order was placed for continuous cardiac monitoring. The monitor shows a rate of 60-150 with a sinus rhythm. On reassessment the patient felt better. Diagnostic interpretation by me: The electrocardiogram was irregularly irregular with a left axis deviation rate of 96. Impression atrial fibrillation rate controlled left axis deviation interpreted by myself EKG ordered for dyspnea The labs revealed mild anemia, elevated BNP Imaging studies: Chest x-ray with mild pulmonary congestion per my interpretation Consultation: A consultation was placed with the hospitalist. The case was discussed and diagnostics were reviewed. The patient was evaluated in the ER for further treatment. Exam and history are concerning for CHF. Patient was sent in by the manager shipping for admission. Medicine was consulted. Patient is agreeable treatment plan of admission. By the evaluation outlined above emergent etiologies such as cardiac ischemia, aortic dissection, pulmonary embolism, pneumonia, pneumothorax, infections, pericarditis, myocarditis, gastrointestinal, as well as others were deemed relatively unlikely. The pt informed about the findings as listed above. All questions were answered and pleased with the treatment. The chart was completed utilizing [employer] Speech voice recognition software. Gr ammatical errors, random word insertions, pronoun errors, and incomplete sentences are an occassional consequence of this system due to software limitations, ambient noise, and hardware issues. Any formal questions or concerns about the content, text, or information contained within the body of this dictation should be directly addressed to the physician laundry assistant for clarification. Impression & Plan CHF (congestive heart failure), COPD exacerbation Discharge Plan Visit Data Chief Complaint: Shortness of Breath/Dyspnea Stated Complaint: SOB ED Provider: Marco Feliz ED Midlevel Provider: Comfort Clark Discharge Problem: CHF (congestive heart failure), COPD exacerbation Patient Disposition: Admitted As Inpatient Discharge Instructions Interventions: ED Discharge Assessment Last Done: 10/28/20 23:52
== END 2020-10-30 14:33 | disposition home or self-care (01) | DRG 190 ==
LOC: 1E 21:02 → ED 21:02 → 1E 23:52 → 2S 10-29 18:09

== ENCOUNTER 2020-12-06 11:09 | Inpatient (IN) ==
--- NOTE | 2020-12-06 12:15 | XRay Report ---
XR chest 1V portable CLINICAL HISTORY: Congestive failure COMPARISON STUDY: October 28, 2020 FINDINGS: The heart remains enlarged. There is persistent mild interstitial thickening. The findings likely represent mild chronic congestive failure or underlying interstitial lung disease.[There is no lobar consolidation. There are no pleural effusions. IMPRESSION: Cardiomegaly and stable mild interstitial thickening, likely representing mild chronic co ngestive failure or underlying interstitial lung disease. ACT 112: Negative or not required by law. Electronically signed by: Benitez Givens M.D. 12/06/2020 12:13 PM
--- NOTE | 2020-12-06 12:18 | History & Physical Report ---
Date of Service December 06, 2020 Assessment & Plan (1) Chronic HFrEF (heart failure with reduced ejection fraction): (2) CAD (coronary artery disease): (3) Atrial fibrillation: (4) COPD (chronic obstructive pulmonary disease): (5) Chronic back pain: Chronic HFref CAD LBBB Admit to PCU Consult cardiology discussed case with Dr. Barker prior to arrival Plan for BiV AICD device implantation on 12/[address] Avila Admitted for medical optimization ahead of procedure Continue metoprolol, torsemide, aldactone, losartan, plavix Daily weights, strict I and Os Heart healthy low sodium diet Echo 11/22 EF less than 20%, left ventricular cavity severely enlarged, left atrium severely enlarged, grade 3 diastolic dysfunction, mild aortic valve sclerosis, mild MR, mild pulmonary pretension, PASP 46 mmHg Heart Cath 10/20 due to interval decline in LV finding stable chronic CAD with no culprit lesion to explain reduced LVEF. He has chronic occlusion to RCA and previously placed stents to OM, patent. Afib s/p DCCV on 11/[address] Barker EKG Continue metoprolol for rate control Eliquis for stroke prevention - will await Dr. Avila recommendations for hold prior to procedure Monitor on tele L foot cellulitis improved, redness and pain subsided continue keflex, to complete end of day 12/08 COPD Tobacco abuse Follows Matt Mendoza Continue trelegy, duoneb, singulair Encourage incentive spirometry while in house Encourage smoking cessation Pt declines nicotine patch at this time BRIAN Pt intolerant to cpap/bipap PAD Continue Plavix, eliquis On repatha for HLD BPH Continue Flomax DVT ppx Eliquis - will await Dr. Avila recommendation for hold prior to procedure Dispo: PCU, plan for BiV AICD on 12/[address] Avila PCP: Larry Saravia PA-C FULL CODE Pt was seen and evaluated in collaboration with Dr. Underwood, please see addendum History of Present Illness Chief Complaint: Referred by cardiology for medical optimization for planned BiVAICD. Primary Care Provider: Larry Saravia PA-C This is a 70-year-old male who has significant past medical history for CAD, chronic HFrEF, L BBB,Afib on eliquis, BRIAN on BiPAP, COPD, tobacco abuse, abdominal aortic aneurysm and thoracic aortic aneurysm without rupture, PAD, BPH, depression with anxiety who presents to ED at recommendation of cardiology for medical optimization for biventricular AICD placement on 12/08. Patient has recent hospitalization in October 2020 secondary to COPD exacerbation as well as acute on chronic HFrEF. He was treated with IV steroids, doxycycline, nebs as well as IV diuretics. He was discharged home on torsemide 100 mg daily and spironolactone 25 mg daily. He also had episode of atrial fibrillation in which he underwent DCCV on 11/[address] Barker achieving NSR. Also of significance patient had recent cardiac catheterization on 10/20/2020 due to interval decline in LV systolic function with findings of stable chronic coronary artery disease with no culprit lesions for recent decline in LVEF. He has a chronic occlusion of the right coronary artery and a previously placed OM stents were patent. Patient has longstanding history of multifactorial is to be secondary to severe COPD, continued tobacco abuse and CAD. Due to decline in EF He was seen and evaluated by EP for device implant. He was last seen in cardiology clinic on 11/22 with a weight of 276 pounds which was -10 pounds since admission. Echocardiogram at that visit revealed persistently severely reduced LV systolic function despite medication. Also to note patient has been seen recently by [facility] ED and diagnosed with a left foot cellulitis. He was prescribed Keflex and. He was seen and followed by PCP on 12/03 and feels redness subsiding. In ED he feels well. He states ever since having cardioversion his shortness of breath has proved significantly. He is able to ambulate up to 22 steps without getting short of breath or stopping. He denies fever, chills, sweats, lightheadedness, chest pain, palpitations, WAY, nausea, vomiting, abdominal pain, change in bowel or urinary habits. His weight has been staying stable around 275 pounds. He does complain of dizziness described as a, "spinning sensation," with movement. He denies any falls or loss of consciousness. His is at bedside. He continues to smoke 1 pack a day. Allergies Allergy/AdvReac Type Severity Reaction Status Date / Time sacubitril [From Entresto] Allergy Severe THROAT Verified 12/06/20 11:48 SWELLING valsartan [From Entresto] Allergy Severe THROAT Verified 12/06/20 11:48 SWELLING simvastatin AdvReac Mild MUSCLE Verified 12/06/20 11:48 ACHES Home Medications Medication Instructions Recorded Confirmed Type clopidogrel 75 mg tablet 75 mg PO DAILY 05/04/19 12/06/20 History ipratropium 0.5 mg-albuterol 3 mg 3 ml INH QID PRN 05/04/19 12/06/20 History (2.5 mg base)/3 mL nebulization soln tamsulosin 0.4 mg capsule 0.4 mg PO DAILY 05/04/19 12/06/20 History Eliquis 5 mg PO BID 10/28/20 12/06/20 History Repatha SureClick 140 mg SUBCUT MONTHLY 10/28/20 12/06/20 History Trelegy Ellipta 1 inh INHALATION DAILY 10/28/20 12/06/20 History losartan 25 mg PO DAILY 10/28/20 12/06/20 History metoprolol succinate 100 mg PO DAILY 10/28/20 12/06/20 History montelukast 10 mg PO PM 10/28/20 12/06/20 History potassium chloride 20 meq PO DAILY 10/28/20 12/06/20 History quetiapine 25 mg PO HS PRN 10/28/20 12/06/20 History spironolactone 25 mg PO DAILY 10/28/20 12/06/20 History torsemide 100 mg PO DAILY 10/28/20 12/06/20 History cephalexin 500 mg PO QID 12/06/20 12/06/20 History famotidine 20 mg PO BID 12/06/20 12/06/20 History mometasone [Nasonex] 2 spray INTRANASAL DAILY 12/06/20 12/06/20 History senna 8.6 mg PO HS 12/06/20 12/06/20 History tramadol 50 mg PO Q6H PRN 12/06/20 12/06/20 History Past Med/Surg History Medical History Atrial fibrillation NEW ONSET On Eliquis CAD (coronary artery disease) PCI of OM2 and diagonal February 2019 Chronic obstructive pulmonary disease Admitted for exacerbation 10/28/20-10/30/20 Chronic systolic heart failure secondary to ischemic cardiomyopathy (EF 20% on 2020 CLAIRE) Claustrophobia History of skin cancer Hyperlipidemia Hypertension Myocardial Infarction 1997 PVD (peripheral vascular disease) S/p AAA repair Restless leg syndrome Sleep apnea BIPAP (STATES DOES NOT USE) Surgical History Stephen's cyst of knee X 2 REMOVED H/O abdominal surgery INTESTINAL POLYP REMOVAL AT AGE 5 History of cardiac cath MULTIPLE (LAST ONE LAST WEEK AT [facility]/NO STENTS) History of cataract surgery RT/LEFT History of colonoscopy History of esophagogastroduodenoscopy (EGD) History of heart artery stent 1997 >2 STENTS PLACED TOTAL 4 STENTS (LAST ONE PLACED 1-2 YEARS AGO AT [facility]) History of open reduction and internal fixation (ORIF) procedure RT LEG (TIB/FIB) History of tooth extraction Hx of melanoma excision LEFT SHOULDER S/P AAA repair 2 YEARS AGO AT [facility] Family History Father Family history of diabetes mellitus Other No family history of adverse response to anesthesia Social History Smoking Status: Current every day smoker Tobacco Type: Cigarettes Years Smoked: 50; Cigarettes Per Day: 20 CIG DAILY; Second Hand Exposure: Yes; Hx Alcohol Use: Yes Alcohol type: beer and hard liquor Alcohol Intake Freq uency: Monthly or Less Hx Substance Use: No Preferred Language: Syrian Communication Ability: Effective Structural Engineering Technician Required: No Beliefs That Will Affect Care: None marital status: Current Living Situation: Spouse Feels Safe at Home: Yes Assistive Devices: Glasses and Hearing Aid - Bilateral Review of Systems Review of Systems: All systems reviewed & are unremarkable except as noted in HPI & below Physical Exam Physical Exam: Constitutional: WD/WN, M, vitals as above, NAD, sitting up in bed, pleasant, conversing easily Head: Normocephalic, Atraumatic Eyes: PERRL, conjunctivae normal, anicteric sclerae ENMT: external ear and nose normal, oropharynx normal Neck: trachea midline, no thyromegaly normal visual inspection Respiratory: normal respiratory effort, lungs clear to auscultation, no wheeze, rales, rhonchi. Normal insp/exp effort, no accessory muscle use Cardiovascular: RRR, no murmur, no edema Vessels: no JVD or carotid bruit Chest: normal inspection of chest Abdomen: normal bowel sounds, soft, nontender, no hepatosplenomegaly Musculoskeletal: no cyanosis or clubbing, extremities motor strength 5/5 Skin: no rashes, warm and dry normal turgor, previous area of L foot dorsum cellulitis with residual pink hue no warmth or neil erythema Neurologic: PERRL, EOMI, accommodation nl, no face palsy, no dysarthria CN's II-XI intact bilaterally and moves all extremities Psychiatric: A+Ox3, euthymic affect Lymphatic: no cervical or axillary lymphadenopathy : deferred Results & Data Results & Data ([facility]) Vital Signs (Past 12 Hours) Vital Signs Temp Pulse Pulse Resp BP BP Pulse Ox 12/06/20 12:00 62 17 115/68 97 12/06/20 11:57 63 23 96 12/06/20 11:55 62 20 127/75 97 12/06/20 11:53 65 18 127/57 L 95 12/06/20 11:17 37.4 C 62 20 118/62 97 Diagnostic Findings Chest X-Ray 12/06/20 11:47 XR chest 1V portable CLINICAL HISTORY: Congestive failure COMPARISON STUDY: October 28, 2020 FINDINGS: The heart remains enlarged. There is persistent mild interstitial thickening. The findings likely represent mild chronic congestive failure or underlying interstitial lung disease.[There is no lobar consolidation. There are no pleural effusions. IMPRESSION: Cardiomegaly and stable mild interstitial thickening, likely representing mild chronic congestive failure or underlying interstitial lung disease. ACT 112: Negative or not required by law. Electronically signed by: Benitez Givens M.D. 12/06/2020 12:13 PM ECG Rate (beats per minute): 62 Rhythm: normal sinus Findings: + LBBB Code Status & VTE Plan Code Status Full Code VTE Prophylaxis Plan VTE Prophylaxis will be ordered: No Reason for no VTE drug order: Treatment not indicated Reason for no VTE mechanical prophylaxis: Treatment not indicated Supervising Physician Co-Signing Physician Notes I saw this patient with the physician statistical assistant, I participated in the history, physical, review of systems, and physical exam. I reviewed the medications with the patient and the physician statistical assistant and helped reconcile the medications. I helped take a detailed family and social history as well. I formulated the assessment and plan personally with the physician statistical assistant and went over it with the patient. ROS-No Headache, No Visual Changes, No Nausea, No Vomiting, No Fever, No Chills, No Neck Pain or Stiffness, No Chest Pain, No Palpitations, No SOB, No WAY, No Cough, No Sputum, No Wheezing, No Abdominal Pain, No Diarrhea, No Hematemesis, No Hemoptysis, No Unexpected Weight Loss, No Flank pain, No Melena, No Hematochezia, No Frequency, No Urgency, No Burning, No Hematuria, No Rashes, No Diaphoresis. Appetite is Normal Physical Exam Gen-AAO x 3, NAD, Afebrile Head-NCAT, EOMI, PERRLA, Anicteric Sclera, No Posterior Pharyngeal Erythema Neck-Supple, No JVD, No Thyromegaly, No Masses, No LAD, No Bruits Lungs-Clear to Auscultation Bilaterally, No Rales, No Rhonchi, No Wheezing, No Crepitus Chest-No S4, +S1, +S2, No S3, No Murmurs, No Rubs, No Gallops, No Ectopy Abdomen-Soft, Bowel Sounds Present, Non Tender, Non Distended, No Hepatomegaly, No Splenomegaly, No Palpable Masses, No Rebound, No Rigidity, No Guarding Musculoskeletal-Full Range of Motion Bilaterally, No CVAT Extremities-No Cyanosis, No Clubbing, No Edema Nuero-Cranial Nerves II-XII grossly intact, Motor WNL, DTRs WNL, Strength WNL, Non Focal Psych-Normal Mood
[2020-12-06 12:24] LABS: Basophils # (auto) 0.01 K/uL (0-0.2); Basophils % (auto) 0.1 %; Eosinophils # (auto) 0.14 K/uL (0-0.5); Hematocrit (blood only) 38.5 % (42-52); Hemoglobin 12.9 g/dL (14.0-18.0); Immature Granulocytes # (auto) 0.02 K/uL (0.00-0.02); Immature Granulocytes % (auto) 0.3 %; Lymphocytes # (auto) 1.48 K/uL (1.2-3.4); Lymphocytes % (auto) 21.1 %; Mean Corpuscular Hemoglobin 29.1 pg (25-34); Mean Corpuscular Hgb Conc 33.5 g/dL (32-36); Mean Corpuscular Volume 86.9 fL (80-100); Mean Platelet Volume 11.2 fL (7.4-10.4); Monocytes # (auto) 0.75 K/uL (0.11-0.59); Monocytes % (auto) 10.7 %; Neutrophils # (auto) 4.61 K/uL (1.4-6.5); Neutrophils % (auto) 65.8 %; Platelet Count 255 K/uL (130-400); RDW Coefficient of Variation 15.8 % (11.5-14.5); RDW Standard Deviation 50.2 fL (36.4-46.3); Red Blood Count 4.43 M/uL (4.7-6.1); White Blood Count 7.01 K/uL (4.8-10.8)
[2020-12-06 12:31] LABS: Partial Thromboplastin Time 26.4 Seconds (21.0-31.0); Prothrombin Time 10.4 Seconds (9.0-12.0)
[2020-12-06 12:41] LABS: Albumin Level 3.2 gm/dl (3.4-5.0); BUN Creatinine Ratio 15.7 (10-20); Calcium 9.3 mg/dl (8.5-10.1); Creatinine Clr Calc Pharmacy 87.5 ml/min; Est GFR (African American) 81.4; Est GFR (Non-African American) 70.3; Magnesium 2.3 mg/dl (1.8-2.4); Potassium 3.4 mmol/L (3.5-5.1)
[2020-12-06] MEDS ORDERED: POTASSIUM CHLORIDE CRTAB 20 MEQ TABCR PO STA (12:42)
[2020-12-06 12:44] LABS: Albumin Globulin Ratio 0.7 (0.9-2); Bilirubin,Total 0.6 mg/dl (0.2-1); Globulin 4.6 gm/dl (2.5-4.0); Total Protein 7.8 gm/dl (6.4-8.2)
--- NOTE | 2020-12-06 12:46 | Electrocardiogram Report ---
Test Reason : Blood Pressure : / mmHG Vent. Rate : 062 BPM Atrial Rate : 062 BPM P-R Int : 204 ms QRS Dur : 136 ms QT Int : 448 ms P-R-T Axes : 116 -53 070 degrees QTc Int : 454 ms Poor data quality, interpretation may be adversely affected Sinus rhythm with Premature atrial complexes Left axis deviation Left bundle branch block Abnormal ECG When compared with ECG of 09-NOV-2020 07:50, Premature ventricular complexes are no longer Present Vent. rate has decreased BY 31 BPM Confirmed by Abdirahman Em ([id number]) on 12/06/2020 12:46:05 PM Referred By: Confirmed By:Abdirahman Em
--- NOTE | 2020-12-06 12:52 | Cardiology Consultation ---
Date of Consultation December 06, 2020 Assessment & Plan (1) Chronic HFrEF (heart failure with reduced ejection fraction): (2) Ischemic cardiomyopathy: (3) First degree AV block: (4) LBBB (left bundle branch block): (5) Atrial fibrillation: Patient with longstanding history of severe underlying COPD, as well as progressive symptoms due to ischemic cardiomyopathy with severe left ventricular systolic dysfunction, left bundle branch block. EKG performed today reveals ongoing sinus rhythm having had direct current cardioversion about a month ago. Although he describes mild subjective improvement since cardioversion, his ejection fraction remains severely diminished. Patient [facility] be [facility] further [facility] prior to proposed ICD/ cardiac resynchronization capable device tentatively planned for Sunday12/08/2020. Will discuss case with electrophysiology refer with regards to plans for holding Eliquis pre procedure. Transition from oral torsemide to IV furosemide while hospitalized. Potassium to be replaced. Left foot cellulitis to be reassessed in person by the undersigned tomorrow 12/07/2020. History of Present Illness History of Present Illness Dago Gunter ( Bud) is a 70-year-old male seen in cardiology consultation per the request of Queta Martinez PA[facility] for ongoing managment of chronic systolic heart failure, persistent atrial fibrillation with recent direct current cardioversion, left bundle branch block. The patient is well known to the undersigned as I have followed him on an outpatient inpatient basis for several years now. He has a long-standing history of cigarette smoking, COPD, and chronic bronchitis. New onset severe systolic heart failure had been noted in September 2020, with transthoracic echocardiogram performed at [facility] 09/22/2020 revealing severe left ventricular systolic dysfunction, LVEF less than 20% at that time, with noted atrial fibrillation first documented on 09/17/2020. For assessment of systolic heart failure he underwent cardiac catheterization at [facility] on 10/21/2020 with findings of known 100% proximal chronic total occlusion of the right coronary artery, mild diffuse disease in the mid LAD, and patent OM 2 and diagonal stents. There is no culprit lesion identified to explain his decline in LVEF. He subsequently underwent direct current cardioversion performed by the undersigned at [facility] on 11/09/2020. Overall, he notes today that his breathing has been somewhat improved. Since his cardioversion, his torsemide dose had been increased from 100 milligrams p.o. daily in the morning, to an extra dose of 50 milligrams several days per week and then daily in the afternoon. About a week ago however the p.m. dose was discontinued per my advice as the patient experienced dizziness. He describes an interval improvement in his exercise capacity seemingly since cardioversion, he is able to walk the 22 steps to his bedroom without perceived limitation. He denies any wheezing. He had been seen twice at the [facility] Emergency Department on 11/14/2020 and that on 11/28/2020 for concerns of left foot cellulitis. He remains on a course of Keflex. He believes his foot is much improved. He denies any fevers or chills. Allergies Allergy/AdvReac Type Severity Reaction Status Date / Time sacubitril [From Entresto] Allergy Severe THROAT Verified 12/06/20 11:48 SWELLING valsartan [From Entresto] Allergy Severe THROAT Verified 12/06/20 11:48 SWELLING simvastatin AdvReac Mild MUSCLE Verified 12/06/20 11:48 ACHES Home Medications Medication Instructions Recorded Confirmed Type clopidogrel 75 mg tablet 75 mg PO DAILY 05/04/19 12/06/20 History ipratropium 0.5 mg-albuterol 3 mg 3 ml INH QID PRN 05/04/19 12/06/20 History (2.5 mg base)/3 mL nebulization soln tamsulosin 0.4 mg capsule 0.4 mg PO DAILY 05/04/19 12/06/20 History Eliquis 5 mg PO BID 10/28/20 12/06/20 History Repatha SureClick 140 mg SUBCUT MONTHLY 10/28/20 12/06/20 History Trelegy Ellipta 1 inh INHALATION DAILY 10/28/20 12/06/20 History losartan 25 mg PO DAILY 10/28/20 12/06/20 History metoprolol succinate 100 mg PO DAILY 10/28/20 12/06/20 History montelukast 10 mg PO PM 10/28/20 12/06/20 History potassium chloride 20 meq PO DAILY 10/28/20 12/06/20 History quetiapine 25 mg PO HS PRN 10/28/20 12/06/20 History spironolactone 25 mg PO DAILY 10/28/20 12/06/20 History torsemide 100 mg PO DAILY 10/28/20 12/06/20 History cephalexin 500 mg PO QID 12/06/20 12/06/20 History famotidine 20 mg PO BID 12/06/20 12/06/20 History mometasone [Nasonex] 2 spray INTRANASAL DAILY 12/06/20 12/06/20 History senna 8.6 mg PO HS 12/06/20 12/06/20 History tramadol 50 mg PO Q6H PRN 12/06/20 12/06/20 History Patient History Medical History Atrial fibrillation NEW ONSET On Eliquis CAD (coronary artery disease) PCI of OM2 and diagonal February 2019 Chronic obstructive pulmonary disease Admitted for exacerbation 10/28/20-10/30/20 Chronic systolic heart failure secondary to ischemic cardiomyopathy (EF 20% on 2020 CLAIRE) Claustrophobia History of skin cancer Hyperlipidemia Hypertension Myocardial Infarction 1997 PVD (peripheral vascular disease) S/p AAA repair Restless leg syndrome Sleep apnea BIPAP (STATES DOES NOT USE) Surgical History Stephen's cyst of knee X 2 REMOVED H/O abdominal surgery INTESTINAL POLYP REMOVAL AT AGE 5 History of cardiac cath MULTIPLE (LAST ONE LAST WEEK AT [facility]/NO STENTS) History of cataract surgery RT/LEFT History of colonoscopy History of esophagogastroduodenoscopy (EGD) History of heart artery stent 1997 >2 STENTS PLACED TOTAL 4 STENTS (LAST ONE PLACED 1-2 YEARS AGO AT [facility]) History of open reduction and internal fixation (ORIF) procedure RT LEG (TIB/FIB) History of tooth extraction Hx of melanoma excision LEFT SHOULDER S/P AAA repair 2 YEARS AGO AT [place] Family History Father Family history of diabetes mellitus Other No family history of adverse response to anesthesia Social History Smoking Status: Current every day smoker Tobacco Type: Cigarettes Years Smoked: 50; Cigarettes Per Day: 20 CIG DAILY; Second Hand Exposure: Yes; Hx Alcohol Use: Yes Alcohol type: beer and hard liquor Alcohol Intake Frequency: Monthly or Less Hx Substance Use: No Preferred Language: Mohawk Communication Ability: Effective Senior Attorney Required: No Beliefs That Will Affect Care: None marital status: Current Living Situation: Spouse Feels Safe at Home: Yes Assistive Devices: Glasses and Hearing Aid - Bilateral Review of Systems Review of Systems: All systems reviewed & are unremarkable except as noted in HPI & below Physical Exam Physical Exam: Temp Pulse Resp BP Pulse Ox 37.4 C 66 16 108/67 96 12/06/20 11:17 12/06/20 12:30 12/06/20 12:30 12/06/20 12:30 12/06/20 12:30 Constitutional: Chronically ill in appearance without acute distress Respiratory: normal respiratory effort, lungs clear to auscultation Cardiovascular: RRR, no murmur, no edema Skin: the patient was seen by the undersigned in the waiting room, he still had issues on, his skin could not be examined with regards to the cellulitis, no ankle edema noted Neurologic: PERRL, EOMI, accommodation nl, no face palsy, no dysarthria Results & Data ([facility]) Vital Signs (Past 12 Hours) Vital Signs Temp Pulse Pulse Resp BP BP Pulse Ox 12/06/20 12:30 66 16 108/67 96 12/06/20 12:00 62 17 115/68 97 12/06/20 11:57 63 23 96 12/06/20 11:55 62 20 127/75 97 12/06/20 11:53 65 18 127/57 L 95 12/06/20 11:17 37.4 C 62 20 118/62 97 Laboratory Results Cardiac Enzymes 12/06/20 Range/Units 12:00 AST 16 (15-37) U/L Coagulation 12/06/20 Range/Units 12:00 PT 10.4 (9.0-12.0) Seconds APTT 26.4 (21.0-31.0) Seconds CBC 12/06/20 Range/Units 12:00 WBC 7.01 (4.8-10.8) K/uL RBC 4.43 L (4.7-6.1) M/uL Hgb 12.9 L (14.0-18.0) g/dL Hct 38.5 L (42-52) % Plt Count 255 (130-400) K/uL Neut # (Auto) 4.61 (1.4-6.5) K/uL Lymph # (Auto) 1.48 (1.2-3.4) K/uL Ware # (Auto) 0.75 H (0.11-0.59) K/uL Eos # (Auto) 0.14 (0-0.5) K/uL Baso # (Auto) 0.01 (0-0.2) K/uL Comprehensive Metabolic Panel 12/06/20 Range/Units 12:00 Sodium 137 (136-145) mmol/L Potassium 3.4 L (3.5-5.1) mmol/L Chloride 103 (98-107) mmol/L Carbon Dioxide 27 (21-32) mmol/L BUN 17 (7-18) mg/dl Creatinine 1.06 (0.6-1.4) mg/dl Glucose 104 H (70-99) mg/dl Calcium 9.3 (8.5-10.1) mg/dl AST 16 (15-37) U/L ALT 21 (12-78) U/L Alkaline Phosphatase 85 (45-117) U/L Total Protein 7.8 (6.4-8.2) gm/dl Albumin 3.2 L (3.4-5.0) gm/dl Intake and Output 12/05/20 12/06/20 12/06/20 22:59 06:59 14:59 Other: Weight 128.9 kg Weight Measurement Method Built in [facility] Patient Weight 12/07/20 06:59 Weight 128.9 kg Diagnostic Findings EKG performed today 12/06/2020 reviewed independently 11:52 a.m. revealed sinus rhythm at 60 beats per minute with first-degree AV block, WA interval 204 milliseconds, occasional premature atrial contractions, left bundle branch block, QRS duration 136 milliseconds summary of transthoracic echocardiogram performed 11/22/2020 with images reviewed by the undersigned at that time: Sinus rhythm with frequent premature ventricular contraction was present during the echocardiogram. The left ventricular cavity size is severely enlarged. The remaining left ventricular wall segments are severely hypokinetic. The qualitative LV ejection fraction is <20% (severely reduced). The left atrium is severely enlarged. The left ventricular diastolic function is severely abnormal (grade III). Mild aortic valve sclerosis is present. Aortic stenosis is absent. Mild mitral regurgitation is present. Mild pulmonary hypertension is present. The estimated pulmonary artery systolic pressure is 46mm Hg. Compared to the prior study dated 09/22/20, there has been no significant interval change.
[2020-12-06 13:04] LABS: Influenza A virus by PCR Negative (Neg); Influenza B virus by PCR Negative (Neg); RSV by PCR Negative (Neg); SARS CoV2 RNA(COVID-19) InHosp NEGATIVE (Negative)
[2020-12-06] MEDS: cephALEXin 500 MG CAP PO SCH ×3 (13:15→21:07)
[2020-12-06] MEDS ORDERED: ALBUT/IPRATROP 3MG/0.5MG NEB 3 ML VIAL INH PRN (14:40)
[2020-12-06] MEDS ORDERED: MAGNESIUM HYDROXIDE SUSP 30 ML UDC PO PRN (14:40)
[2020-12-06] MEDS ORDERED: ONDANSETRON INJ 2 MG/ML 2 ML VIAL IV PRN (14:40)
[2020-12-06] MEDS ORDERED: FUROSEMIDE 40 MG/4 ML VIAL IV STA (14:40)
[2020-12-06] MEDS ORDERED: POLYETHYLENE (MIRALAX) 17 GM PACK PO PRN (14:40)
[2020-12-06] MEDS ORDERED: NON-FORMULARY MEDICATION (Fluticasone-Umeclidin-Vilanter [Trelegy Ellipta] 100-62.5-25 mcg INH SCH (14:40)
[2020-12-06] MEDS ORDERED: ALUMINUM/MAGNESIUM SUSP 30 ML UDC PO PRN (14:40)
[2020-12-06] MEDS ORDERED: traMADol HCL 50 MG TABLET PO PRN (14:40)
[2020-12-06] MEDS ORDERED: FUROSEMIDE 40 MG in SYRINGE 0 ML IV STA (14:58)
[2020-12-06] MEDS: UMECLIDINIUM BROMIDE 62.5MCG/BLISTER 7 PUFFS/INHALER INH SCH (16:00)
[2020-12-06] MEDS: FLUTICASONE/VILANTEROL 100/25MCG 14 PUFFS/INHALER INH SCH (16:01)
[2020-12-06] MEDS ORDERED: POTASSIUM CHLORIDE CRTAB 20 MEQ TABCR PO ONE (18:00)
[2020-12-06] MEDS ORDERED: APIXABAN 5 MG TABLET PO SCH (21:00)
[2020-12-06] MEDS: FAMOTIDINE 20 MG TAB PO SCH (21:07)
[2020-12-06] MEDS: QUEtiapine FUMARATE 25 MG TABLET PO PRN (21:07)
[2020-12-06] MEDS: MONTELUKAST SODIUM 10 MG TABLET PO SCH (21:08)
[2020-12-06] MEDS: SENNA 8.6 MG TAB PO SCH (21:08)
[2020-12-07 04:05] LABS: Basophils # (auto) 0.01 K/uL (0-0.2); Basophils % (auto) 0.2 %; Eosinophils # (auto) 0.15 K/uL (0-0.5); Eosinophils % (auto) 2.9 %; Hematocrit (blood only) 34.7 % (42-52); Hemoglobin 11.5 g/dL (14.0-18.0); Immature Granulocytes # (auto) 0.01 K/uL (0.00-0.02); Immature Granulocytes % (auto) 0.2 %; Lymphocytes # (auto) 1.43 K/uL (1.2-3.4); Lymphocytes % (auto) 27.3 %; Mean Corpuscular Hemoglobin 29.2 pg (25-34); Mean Corpuscular Hgb Conc 33.1 g/dL (32-36); Mean Corpuscular Volume 88.1 fL (80-100); Monocytes # (auto) 0.49 K/uL (0.11-0.59); Monocytes % (auto) 9.4 %; Neutrophils # (auto) 3.15 K/uL (1.4-6.5); Platelet Count 205 K/uL (130-400); RDW Coefficient of Variation 15.7 % (11.5-14.5); RDW Standard Deviation 50.7 fL (36.4-46.3); Red Blood Count 3.94 M/uL (4.7-6.1); White Blood Count 5.24 K/uL (4.8-10.8)
[2020-12-07 04:29] LABS: BUN Creatinine Ratio 18.7 (10-20); Blood Urea Nitrogen 20 mg/dl (7-18); Calcium 8.4 mg/dl (8.5-10.1); Carbon Dioxide 31 mmol/L (21-32); Chloride 108 mmol/L (98-107); Creatinine Clr Calc Pharmacy 84.2 ml/min; Est GFR (African American) 78.7; Est GFR (Non-African American) 67.9; Glucose 104 mg/dl (70-99); Magnesium 2.4 mg/dl (1.8-2.4); Potassium 3.7 mmol/L (3.5-5.1); Sodium 141 mmol/L (136-145)
[2020-12-07 04:34] LABS: Troponin I < 0.015 ng/ml (0-0.045)
[2020-12-07] MEDS ORDERED: SODIUM CHLORIDE 0.9% 500 ML IV SCH (05:15)
--- NOTE | 2020-12-07 06:46 | Hospitalist Progress Note ---
Date of Service December 07, 2020 Assessment & Plan Admission and Anticipated Discharge Date Admission Date: December 06, 2020 Subjective Patient having on and off bradycardia. At one time went to 20's. Happening when sleeping. When awoken patient asymptomatic and heart rates goes up. Does not like to use cpap. SBP high 80's and 90's. Labs ok. Gave 250cc fluid bolus. Held Toprol xl.Will notify am providers. Results & Data Results & Data ([facility]) Vital Signs (Past 12 Hours) Vital Signs Temp Pulse Resp BP Pulse Ox 12/07/20 05:51 109/67 12/07/20 04:52 36.5 C 59 L 18 89/36 L 99 12/07/20 03:18 99/58 L 12/06/20 23:32 36.5 C 55 L 18 104/44 L 95 12/06/20 19:57 36.7 C 64 18 117/66 95
[2020-12-07] MEDS: UMECLIDINIUM BROMIDE 62.5MCG/BLISTER 7 PUFFS/INHALER INH SCH (08:24)
[2020-12-07] MEDS: FLUTICASONE/VILANTEROL 100/25MCG 14 PUFFS/INHALER INH SCH (08:24)
[2020-12-07] MEDS: LOSARTAN POTASSIUM 25 MG TAB PO SCH (08:25)
[2020-12-07] MEDS: FAMOTIDINE 20 MG TAB PO SCH ×2 (08:25→21:13)
[2020-12-07] MEDS: SPIRONOLACTONE 25 MG TAB PO SCH (08:25)
[2020-12-07] MEDS: CLOPIDOGREL BISULFATE 75 MG TAB PO SCH (08:25)
[2020-12-07] MEDS: cephALEXin 500 MG CAP PO SCH ×4 (08:25→21:13)
[2020-12-07] MEDS: POTASSIUM CHLORIDE CRTAB 20 MEQ TABCR PO SCH (08:26)
[2020-12-07] MEDS: TAMSULOSIN HCL 0.4 MG CAP PO SCH (08:26)
[2020-12-07] MEDS: FLUTICASONE PROPIONATE NA SPR 16 GM BTL SCH (08:31)
--- NOTE | 2020-12-07 09:26 | Cardiology Progress Note ---
Date of Service December 07, 2020 Assessment & Plan (1) Chronic HFrEF (heart failure with reduced ejection fraction): (2) Ischemic cardiomyopathy: (3) First degree AV block: (4) LBBB (left bundle branch block): (5) Atrial fibrillation: Patient with longstanding history of severe underlying COPD, as well as progressive symptoms due to ischemic cardiomyopathy with severe left ventricular systolic dysfunction, left bundle branch block. The hospitalist on-call was asked to assist the patient earlier this morning due to intermittent bradycardia with ventricular rates ranging from 20 bpm to 40 bpm during sleep. Patient has known severe obstructive sleep apnea, but has been intolerant to positive pressure ventilation due to claustrophobia and therefore he is not treated. At present, EKG this morning reveals sinus rhythm at 66 bpm with first-degree AV block and left bundle branch block. Systolic blood pressure was mildly low this morning in the 80s, this is improved after a 250 mL fluid bolus. He did have significant urine output yesterday after 40 mg of IV furosemide. His morning metoprolol dose of metoprolol succinate 100 mg daily was held. At present, I think it is prudent to administer this medication in an effort to try to keep the patient from reverting back to atrial fibrillation. The noted issues with his bradycardia are chronic, and these are the precise indications for why he is to undergo [employer]/ICD device placement tomorrow. He is well compensated from both a COPD and heart failure standpoint. We will hold additional loop diuretic therapy today. Continue potassium supplementation and chronic spironolactone. Eliquis on hold as of this morning pending procedure. In terms of the recent concerns of left foot cellulitis. His foot is nonerythematous and nonswollen today. It is not painful, and there are no signs of infection on physical exam. N.p.o. after midnight. Admission and Anticipated Discharge Date Admission Date: December 06, 2020 Subjective Patient seen in follow-up of his chief complaint of exertional shortness of breath. He feels like his energy levels are little bit worse yesterday. His most significant subjective complaint is that he does not like being "closed" while in the hospital. He did go for a walk in the hallway of the unit yesterday with his mask. He typically smokes approximately 10 cigarettes/day. He does not feel he needs a nicotine patch. Events from overnight/this morning noted as described in the assessment and plan. Review of Systems Review of Systems: All systems reviewed & are unremarkable except as noted in HPI & below Physical Exam Physical Exam: Temp Pulse Resp BP Pulse Ox 36.5 C 52 L 21 115/68 97 12/07/20 08:08 12/07/20 08:34 12/07/20 08:08 12/07/20 08:08 12/07/20 08:34 Constitutional: WD/WN, vitals as above Respiratory: normal respiratory effort, lungs clear to auscultation Cardiovascular: RRR, no murmur, no edema Gastrointestinal (Abdomen): normal bowel sounds, soft, nontender, no hepatosplenomegaly Skin: no rashes, warm and dry Neurologic: PERRL, EOMI, accommodation nl, no face palsy, no dysarthria Results & Data ([facility]) Vital Signs (Past 12 Hours) Vital Signs Temp Pulse Pulse Resp BP Pulse Ox Pulse Ox 12/07/20 08:34 52 L 97 12/07/20 08:08 36.5 C 61 21 115/68 98 12/07/20 05:51 109/67 12/07/20 04:52 36.5 C 59 L 18 89/36 L 99 12/07/20 03:18 99/58 L 12/06/20 23:32 36.5 C 55 L 18 104/44 L 95
--- NOTE | 2020-12-07 09:31 | Electrocardiogram Report ---
Test Reason : Blood Pressure : / mmHG Vent. Rate : 066 BPM Atrial Rate : 066 BPM P-R Int : 202 ms QRS Dur : 130 ms QT Int : 458 ms P-R-T Axes : 088 -53 086 degrees QTc Int : 480 ms Sinus rhythm with Premature atrial complexes Left axis deviation Left bundle branch block Abnormal ECG When compared with ECG of 06-DEC-2020 11:52, No significant change was found Confirmed by Abdirahman Em ([id number]) on 12/07/2020 9:31:27 AM Referred By: Donavan Barker Confirmed By:Abdirahman Em
--- NOTE | 2020-12-07 09:55 | Communication Note ---
Date of Service: December 07, 2020 I called spouse, Ganesh, and updated her with regards to today's findings and plan.
--- NOTE | 2020-12-07 10:06 | Hospitalist Progress Note ---
Date of Service December 07, 2020 Assessment & Plan (1) Chronic HFrEF (heart failure with reduced ejection fraction): (2) CAD (coronary artery disease): (3) Atrial fibrillation: (4) COPD (chronic obstructive pulmonary disease): (5) Chronic back pain: Chronic HFref CAD LBBB Cardiology discussed case with Dr. Barker prior to arrival Plan for BiV AICD device implantation today c Dr. Avila Admitted for medical optimization ahead of procedure Continue metoprolol, torsemide, aldactone, losartan, plavix Daily weights, strict I and Os Heart healthy low sodium diet Echo 11/22 EF less than 20%, left ventricular cavity severely enlarged, left atrium severely enlarged, grade 3 diastolic dysfunction, mild aortic valve sclerosis, mild MR, mild pulmonary pretension, PASP 46 mmHg Heart Cath 10/20 due to interval decline in LV finding stable chronic CAD with no culprit lesion to explain reduced LVEF. He has chronic occlusion to RCA and previously placed stents to OM, patent. Had bradycardia during sleep last PM Afib s/p DCCV on 11/[address] Barker EKG Continue metoprolol for rate control Eliquis for stroke prevention - will await Dr. Avila recommendations for hold prior to procedure Monitor on tele L foot cellulitis improved, redness and pain subsided continue keflex, to complete end of day 12/08 COPD Tobacco abuse Follows Matt Mendoza Continue trelegy, manishaoneb, singulair Encourage incentive spirometry while in house Encourage smoking cessation Pt declines nicotine patch at this time BRIAN Pt intolerant to cpap/bipap PAD Continue Plavix, eliquis On repatha for HLD BPH Continue Flomax DVT ppx Eliquis - will await Dr. Avila recommendation periop Dispo: PCU, plan for BiV AICD today by Dr. Avila PCP: Larry Saravia PA-C FULL CODE Labs checked ROS-No Headache, No Visual Changes, No Nausea, No Vomiting, No Fever, No Chills, No Neck Pain or Stiffness, No Chest Pain, No Palpitations, No SOB, No WAY, No Cough, No Sputum, No Wheezing, No Abdominal Pain, No Diarrhea, No Hematemesis, No Hemoptysis, No Unexpected Weight Loss, No Flank pain, No Melena, No Hematochezia, No Frequency, No Urgency, No Burning, No Hematuria, No Rashes, No Diaphoresis. Appetite is Normal Physical Exam Gen-AAO x 3, NAD, Afebrile Head-NCAT, EOMI, PERRLA, Anicteric Sclera, No Posterior Pharyngeal Erythema Neck-Supple, No JVD, No Thyromegaly, No Masses, No LAD, No Bruits Lungs-Clear to Auscultation Bilaterally, No Rales, No Rhonchi, No Wheezing, No Crepitus Chest-No S4, +S1, +S2, No S3, No Murmurs, No Rubs, No Gallops, No Ectopy Abdomen-Soft, Bowel Sounds Present, Non Tender, Non Distended, No Hepatomegaly, No Splenomegaly, No Palpable Masses, No Rebound, No Rigidity, No Guarding Musculoskeletal-Full Range of Motion Bilaterally, No CVAT Extremities-No Cyanosis, No Clubbing, No Edema Nuero-Cranial Nerves II-XII grossly intact, Motor WNL, DTRs WNL, Strength WNL, Non Focal Psych-Normal Mood Admission and Anticipated Discharge Date Admission Date: December 06, 2020 Results & Data Results & Data ([facility]) Vital Signs (Past 12 Hours) Vital Signs Temp Pulse Pulse Resp BP Pulse Ox Pulse Ox 12/07/20 08:34 52 L 97 12/07/20 08:08 36.5 C 61 21 115/68 98 12/07/20 05:51 109/67 12/07/20 04:52 36.5 C 59 L 18 89/36 L 99 12/07/20 03:18 99/58 L 12/06/20 23:32 36.5 C 55 L 18 104/44 L 95
[2020-12-07] MEDS ORDERED: METOPROLOL SUCC 50MG EXT REL TAB PO STA (10:20)
--- NOTE | 2020-12-07 16:37 | Anesthesiology Consultation ---
Date of Service December 07, 2020 Assessment & Plan (1) Encounter for pre-operative examination: Chart Review Chart Review: Acceptable Risk for Surgery Consults Requested none ASA ASA4 History Surgery Operation Date: 12/08/20 10:00 Proposed Procedures p ICD Biventricular Implant Anesthesia - Ev Avila DO Height/Weight Height: 5 ft 11 in Weight: 125.3 kg Allergies Allergy/AdvReac Type Severity Reaction Status Date / Time sacubitril [From Entresto] Allergy Severe THROAT Verified 12/06/20 11:48 SWELLING valsartan [From Entresto] Allergy Severe THROAT Verified 12/06/20 11:48 SWELLING simvastatin AdvReac Mild MUSCLE Verified 12/06/20 11:48 ACHES Medications Home Medications Medication Instructions Recorded Confirmed Last Taken clopidogrel 75 mg tablet 75 mg PO DAILY 05/04/19 12/06/20 12/06/20 11:48 ipratropium 0.5 mg-albuterol 3 mg 3 ml INH QID PRN 05/04/19 12/06/20 Unknown (2.5 mg base)/3 mL nebulization soln tamsulosin 0.4 mg capsule 0.4 mg PO DAILY 05/04/19 12/06/20 12/06/20 11:50 Eliquis 5 mg PO BID 10/28/20 12/06/20 12/06/20 11:49 Repatha SureClick 140 mg SUBCUT MONTHLY 10/28/20 12/06/20 11/18/20 Trelegy Ellipta 1 inh INHALATION DAILY 10/28/20 12/06/20 12/05/20 losartan 25 mg PO DAILY 10/28/20 12/06/20 12/06/20 11:49 metoprolol succinate 100 mg PO DAILY 10/28/20 12/06/20 12/06/20 11:49 montelukast 10 mg PO PM 10/28/20 12/06/20 10/28/20 potassium chloride 20 meq PO DAILY 10/28/20 12/06/20 12/06/20 11:49 quetiapine 25 mg PO HS PRN 10/28/20 12/06/20 10/27/20 spironolactone 25 mg PO DAILY 10/28/20 12/06/20 12/06/20 11:50 torsemide 100 mg PO DAILY 10/28/20 12/06/20 12/06/20 11:50 cephalexin 500 mg PO QID 12/06/20 12/06/20 12/06/20 11:52 famotidine 20 mg PO BID 12/06/20 12/06/20 12/06/20 11:52 mometasone [Nasonex] 2 spray INTRANASAL DAILY 12/06/20 12/06/20 Unknown senna 8.6 mg PO HS 12/06/20 12/06/20 Unknown tramadol 50 mg PO Q6H PRN 12/06/20 12/06/20 Unknown Active Medications Generic Name Dose Route Start Last Admin Trade Name Freq PRN Reason Stop Dose Admin Cephalexin HCl 500 mg 12/06/20 13:00 12/07/20 14:21 Cephalexin 500 Mg Cap PO 12/08/20 21:01 500 mg QID BRITTANY Administration Clopidogrel Bisulfate 75 mg 12/07/20 09:00 12/07/20 08:25 Clopidogrel Bisulfate 75 Mg Tab PO 01/06/21 08:59 75 mg DAILY BRITTANY Administration Famotidine 20 mg 12/06/20 21:00 12/07/20 08:25 Famotidine 20 Mg Tab PO 01/05/21 20:59 20 mg BID BRITTANY Administration Fluticasone Propionate 2 sprays 12/07/20 09:00 12/07/20 08:31 Fluticasone Propionate Na Spr 16 Gm Btl NA 01/06/21 08:59 Not Given DAILY BRITTANY Fluticasone/Vilanterol 1 puffs 12/06/20 15:30 12/07/20 08:24 Fluticasone/Vilanterol 100/25mcg 14 Puffs/Inhaler INH 01/05/21 15:29 1 puffs DAILY BRITTANY Administration Losartan Potassium 25 mg 12/07/20 09:00 12/07/20 08:25 Losartan Potassium 25 Mg Tab PO 01/06/21 08:59 25 mg DAILY BRITTANY Administration Montelukast Sodium 10 mg 12/06/20 21:00 12/06/20 21:08 Montelukast Sodium 10 Mg Tablet PO 01/05/21 20:59 10 mg PM BRITTANY Administration Potassium Chloride 20 meq 12/07/20 09:00 12/07/20 08:26 Potassium Chloride Crtab 20 Meq Tabcr PO 01/06/21 08:59 20 meq DAILY BRITTANY Administration Quetiapine Fumarate 25 mg 12/06/20 14:40 12/06/20 21:07 Quetiapine Fumarate 25 Mg Tablet PO 01/05/21 14:39 25 mg HS PRN Administration Sleep Sennosides 8.6 mg 12/06/20 21:00 12/06/20 21:08 Senna 8.6 Mg Tab PO 01/05/21 20:59 8.6 mg HS BRITTANY Administration Spironolactone 25 mg 12/07/20 09:00 12/07/20 08:25 Spironolactone 25 Mg Tab PO 01/06/21 08:59 25 mg DAILY BRITTANY Administration Tamsulosin HCl 0.4 mg 12/07/20 09:00 12/07/20 08:26 Tamsulosin Hcl 0.4 Mg Cap PO 01/06/21 08:59 0.4 mg DAILY BRITTANY Administration Umeclidinium [place] 1 puffs 12/06/20 15:30 12/07/20 08:24 Umeclidinium [place] 62.5mcg/Blister 7 Puffs/Inhaler INH 01/05/21 15:29 1 puffs DAILY BRITTANY Administration Past Medical History Medical History Atrial fibrillation NEW [place]ET On Eliquis CAD (coronary artery disease) PCI of OM2 and diagonal February 2019 Chronic obstructive pulmonary disease Admitted for exacerbation 10/28/20-10/30/20 Chronic systolic heart failure secondary to ischemic cardiomyopathy (EF 20% on 2020 CLAIRE) Claustrophobia History of skin cancer Hyperlipidemia Hypertension Myocardial Infarction 1997 PVD (peripheral vascular disease) S/p AAA repair Restless leg syndrome Sleep apnea BIPAP (STATES DOES NOT USE) Exercise / Class Metabolic Activity II 4-5 Yardwork/Stairs/Walk up hill Past Family History Family History Father Family history of diabetes mellitus Other No family history of adverse response to anesthesia Past Surgical History Surgical History Stephen's cyst of knee X 2 REMOVED H/O abdominal surgery INTESTINAL POLYP REMOVAL AT AGE 5 History of cardiac cath MULTIPLE (LAST ONE LAST WEEK AT [facility]/NO STENTS) History of cataract surgery RT/LEFT History of colonoscopy History of esophagogastroduodenoscopy (EGD) History of heart artery stent 1997 >2 STENTS PLACED TOTAL 4 STENTS (LAST ONE PLACED 1-2 YEARS AGO AT [facility]) History of open reduction and internal fixation (ORIF) procedure RT LEG (TIB/FIB) History of tooth extraction Hx of melanoma excision LEFT SHOULDER S/P AAA repair 2 YEARS AGO AT [facility] Past Anesthesia History No Hx of Anesthesia Complications and No Family Hx of Anesthesia Complications History of PONV No Hx of PONV and No Hx of Motion Sickness Social History Smoking Status: Current every day smoker tobacco type: cigarettes Smoking cigarettes per day: 1PPD Hx Alcohol Use: Yes Alcohol type: beer and hard liquor alcohol intake frequency: holidays/special occasions only Hx Substance Use: No substance use type: does not use Physical Exam Vital Signs Last Vital Signs Temp 97.3 F L 12/07/20 15:57 Pulse 88 12/07/20 15:57 Resp 18 12/07/20 15:57 BP 135/64 12/07/20 15:57 Pulse Ox 95 12/07/20 15:57 ENMT Mouth: no dentition abnormality Thyromental Distance: > or= 3.5 Finger Breadths Mallampati Class: II Neck normal visual inspection Respiratory normal respiratory effort Auscultation: + diminished lung sounds Cardiovascular Rate/Rhythm: regular rate and regular rhythm Testing Laboratory Results 12/07/20 03:50 12/07/20 03:50 PT 10.4 Seconds (9.0-12.0) 12/06/20 12:00 INR 1.0 (0.9-1.1) 12/06/20 12:00 APTT 26.4 Seconds (21.0-31.0) 12/06/20 12:00 Electrocardiogram Date: 12/07/20 Sinus rhythm with Premature atrial complexes, rate 66 bpm Left axis deviation Left bundle branch block Abnormal ECG When compared with ECG of 06-DEC-2020 11:52, No significant change was found Confirmed by Abdirahman Em ([id number]) on 12/07/2020 9:31:27 AM Chest X-Ray Date: 12/06/20 IMPRESSION: Cardiomegaly and stable mild interstitial thickening, likely representing mild chronic congestive failure or underlying interstitial lung disease. Echocardiogram Date: 09/22/20 LV EF is <20%. LV cavity is severely enlarged. There is diffuse severe hypokinesis. No significant valvular disease is present. Cardiac Catheterization Date: 10/20/20 LM: No evidence of disease LAD: Mildly diseasedfirst diagonal is mildly diseased and has existing stent. Circumflex: Mid circumflex has existing stent. First marginal is moderately diseased. 60% lesion in first marginalthis vessel is jailed and has not changed since prior catheterization. Second marginal has an existing stent. RCA: 100% known lesion in proximal RCA with good [id number] collaterals. Conclusions: Did not find a culprit lesion to explain worsening LV dysfunction. Recommendations: Continue medical therapy for cardiomyopathy.
[2020-12-07] MEDS: QUEtiapine FUMARATE 25 MG TABLET PO PRN (21:11)
[2020-12-07] MEDS: NICOTINE 21 MG/24 HR TDSY TD SCH (21:11)
[2020-12-07] MEDS: MONTELUKAST SODIUM 10 MG TABLET PO SCH (21:13)
[2020-12-07] MEDS: SENNA 8.6 MG TAB PO SCH (21:13)
[2020-12-08 06:18] LABS: Hematocrit (blood only) 34.2 % (42-52); Hemoglobin 11.2 g/dL (14.0-18.0); Mean Corpuscular Hemoglobin 28.8 pg (25-34); Mean Corpuscular Hgb Conc 32.7 g/dL (32-36); Mean Corpuscular Volume 87.9 fL (80-100); Mean Platelet Volume 10.9 fL (7.4-10.4); Platelet Count 200 K/uL (130-400); RDW Coefficient of Variation 15.8 % (11.5-14.5); RDW Standard Deviation 50.8 fL (36.4-46.3); Red Blood Count 3.89 M/uL (4.7-6.1); White Blood Count 5.73 K/uL (4.8-10.8)
[2020-12-08 06:45] LABS: BUN Creatinine Ratio 18.8 (10-20); Bilirubin Direct 0.1 mg/dl (0-0.2); Calcium 8.9 mg/dl (8.5-10.1); Creatinine Clr Calc Pharmacy 101.2 ml/min; Est GFR (African American) 99.2; Est GFR (Non-African American) 85.6
[2020-12-08 06:48] LABS: Albumin Globulin Ratio 0.8 (0.9-2); Bilirubin,Total 0.4 mg/dl (0.2-1); Globulin 3.8 gm/dl (2.5-4.0); Total Protein 6.8 gm/dl (6.4-8.2)
[2020-12-08] MEDS: NICOTINE 21 MG/24 HR TDSY TD SCH (07:55)
[2020-12-08] MEDS: FAMOTIDINE 20 MG TAB PO SCH ×2 (07:56→20:44)
[2020-12-08] MEDS: cephALEXin 500 MG CAP PO SCH ×4 (07:56→20:44)
[2020-12-08] MEDS: TAMSULOSIN HCL 0.4 MG CAP PO SCH (07:57)
[2020-12-08] MEDS: POTASSIUM CHLORIDE CRTAB 20 MEQ TABCR PO SCH (07:57)
[2020-12-08] MEDS: CLOPIDOGREL BISULFATE 75 MG TAB PO SCH (07:58)
[2020-12-08] MEDS: FLUTICASONE PROPIONATE NA SPR 16 GM BTL SCH (08:00)
[2020-12-08] MEDS: SPIRONOLACTONE 25 MG TAB PO SCH (08:00)
[2020-12-08] MEDS: FLUTICASONE/VILANTEROL 100/25MCG 14 PUFFS/INHALER INH SCH (08:00)
[2020-12-08] MEDS: UMECLIDINIUM BROMIDE 62.5MCG/BLISTER 7 PUFFS/INHALER INH SCH (08:00)
[2020-12-08] MEDS: METOPROLOL SUCC 50MG EXT REL TAB PO SCH (08:34)
[2020-12-08] MEDS: LOSARTAN POTASSIUM 25 MG TAB PO SCH (08:34)
--- NOTE | 2020-12-08 09:06 | Electrocardiogram Report ---
Test Reason : Blood Pressure : / mmHG Vent. Rate : 057 BPM Atrial Rate : 057 BPM P-R Int : 242 ms QRS Dur : 128 ms QT Int : 478 ms P-R-T Axes : 072 -52 016 degrees QTc Int : 465 ms Sinus bradycardia with 1st degree A-V block with occasional Premature ventricular complexes Left axis deviation Left bundle branch block Abnormal ECG When compared with ECG of 07-DEC-2020 05:58, Premature ventricular complexes are now Present Premature atrial complexes are no longer Present CO interval has increased Confirmed by Abdirahman Em ([id number]) on 12/08/2020 9:06:49 AM Referred By: Donavan Barker Confirmed By:Abdirahman Em
[2020-12-08] MEDS ORDERED: LIDOCAINE HCL 2% 2 ML VIAL/AMP(20MG/ML) INFIL ONE (09:48)
[2020-12-08] MEDS ORDERED: PROPOFOL IV EMULSION 10 MG/ML 20 ML VIAL IV ONE (09:48)
[2020-12-08] MEDS ORDERED: fentaNYL citrate 100 MCG/2 ML VIAL ONE ×3 (09:48→14:03)
[2020-12-08] MEDS ORDERED: MIDAZOLAM HCL 1 MG/ML 2ML VIAL ONE (09:49)
--- NOTE | 2020-12-08 10:13 | Cardiology Progress Note ---
Date of Service December 08, 2020 Assessment & Plan (1) Chronic HFrEF (heart failure with reduced ejection fraction): (2) Ischemic cardiomyopathy: (3) First degree AV block: (4) LBBB (left bundle branch block): (5) Atrial fibrillation: Patient with longstanding history of severe underlying COPD, as well as progressive symptoms due to ischemic cardiomyopathy with severe left ventricular systolic dysfunction, left bundle branch block. Continue to hold oral/IV loop diuretic at present. Continue spironolactone and potassium chloride supplementation, kidney function and electrolyte levels stable today. Proceed with implantation of [employer] capable ICD device. Eliquis is on hold for the procedure. We will likely resume it tomorrow. We will avoid bridge therapy with Lovenox or IV heparin in order to reduce risk of pocket hematoma. Continue chronic clopidogrel given history of CAD, coronary stents, PAD with history of endovascular abdominal aortic aneurysm repair. Admission and Anticipated Discharge Date Admission Date: December 06, 2020 Subjective Mr Gunter is seen in cardiology follow-up of his chief complaint of exertional shortness of breath and easy fatigability. He had a restful night. Sinus rhythm with long first-degree AV block and left bundle branch block, frequent PVCs observed on telemetry. With sleep, as observed previously, he becomes bradycardic, with ventricular rates as low as 20 to 40 bpm, intermittent junctional bradycardia observed. He feels well and he is eager to proceed with EP procedure as planned today. Review of Systems Review of Systems: All systems reviewed & are unremarkable except as noted in HPI & below Physical Exam Physical Exam: Temp Pulse Resp BP Pulse Ox 36.3 C L 57 L 19 105/55 L 94 12/08/20 07:22 12/08/20 08:15 12/08/20 07:22 12/08/20 07:22 12/08/20 07:22 Constitutional: Chronically ill in appearance without acute distress Respiratory: normal respiratory effort, lungs clear to auscultation Cardiovascular: RRR, no murmur, no edema Skin: No left foot edema/erythema Neurologic: PERRL, EOMI, accommodation nl, no face palsy, no dysarthria Results & Data ([facility]) Vital Signs (Past 12 Hours) Vital Signs Temp Pulse Pulse Resp BP BP Pulse Ox 12/08/20 08:15 57 L 12/08/20 07:22 36.3 C L 55 L 19 105/55 L 94 12/08/20 03:32 36.4 C L 54 L 14 114/54 L 98 12/07/20 23:06 36.3 C L 67 18 112/55 L 97
[2020-12-08] MEDS ORDERED: ePHEDrine sulfate 50 MG/ML AMP IV PRN ×2 (11:30→16:16)
[2020-12-08] MEDS ORDERED: fentaNYL citrate 100 MCG/2 ML VIAL IV PRN ×2 (11:30→16:16)
[2020-12-08] MEDS ORDERED: ATROPINE SULFATE 0.1 MG/ML 10ML SYR IV PRN ×2 (11:30→16:16)
[2020-12-08] MEDS ORDERED: ONDANSETRON INJ 2 MG/ML 2 ML VIAL IV PRN ×2 (11:30→16:16)
[2020-12-08] MEDS ORDERED: BUPIVACAINE 0.25% 30 ML VIAL ONE (12:12)
[2020-12-08] MEDS ORDERED: LIDOCAINE HCL 1% 20 ML VIAL ONE (12:12)
[2020-12-08] MEDS ORDERED: BACITRACIN INJ 50,000 UNIT VIAL ONE ×3 (12:13→15:26)
--- NOTE | 2020-12-08 12:24 | History & Physical Bridge Note ---
Date of Service December 08, 2020 History & Physical Bridge Note I have examined the patient, reviewed the History & Physical and in the interval since the performance of the History & Physical I have noted the following changes of clinical significance: Pt with CHF, LBBB, ICM for a BIV ICD today; re-dicussed the procedure and the potential risks with the patient; consents signed
[2020-12-08] MEDS ORDERED: PHENYLEPHRINE HCL 10 MG/ML VIAL ONE (13:20)
[2020-12-08] MEDS ORDERED: ETOMIDATE 2 MG/ML 20 ML VIAL IV ONE (13:20)
[2020-12-08] MEDS ORDERED: ONDANSETRON INJ 2 MG/ML 2 ML VIAL ONE (13:20)
[2020-12-08] MEDS ORDERED: ePHEDrine sulfate 50 MG/ML AMP ONE (13:20)
[2020-12-08] MEDS ORDERED: PHENYLEPHRINE 100MCG/ML 5ML SYR ONE (13:20)
[2020-12-08] MEDS ORDERED: ePHEDrine sulfate 50 MG/ML SYR ONE (13:20)
--- NOTE | 2020-12-08 13:54 | Hospitalist Progress Note ---
Date of Service December 08, 2020 Assessment & Plan (1) Chronic HFrEF (heart failure with reduced ejection fraction): Planning for BiV ICD placement today. EF <20%. Patient appears euvolemic at this time. Holding lasix currently per cardiology. Daily weights, strict I and Os. Heart healthy low sodium diet. Continue metoprolol, torsemide, aldactone, losartan, plavix (2) CAD (coronary artery disease): Heart Cath 10/20 due to interval decline in LV finding stable chronic CAD with no culprit lesion to explain reduced LVEF. He has chronic occlusion to RCA and previously placed stents to OM, patent. Currently free of chest pain and appears stable. Cont medical management per home regimen including plavix, losartan, toprol XL. (3) Atrial fibrillation: s/p DCCV on 11/[address] Barker. Intermittent sinus bradycardia and atrial fibrillation on telemetry review. Cont Toprol. Eliquis on hold for procedure. (4) COPD (chronic obstructive pulmonary disease): chronic, stable. Patient is an active smoker- encouraged to quit. Follows with Matt Christensen-Dr. Mendoza. Cont Trelegy, Singulair. Not in exacerbation at this time. (5) LBBB (left bundle branch block): chronic. BiV ICD placement as above. (6) Cellulitis of left foot: completing a course of Keflex today. (7) Tobacco use: Nicoderm patch-encourage smoking cessation. (8) BRIAN (obstructive sleep apnea): Intolerant of CPAP (9) DVT prophylaxis: SCDs Eliquis on hold for procedure Full Code Dispo-cont PCU monitoring. To home post-procedure. [facility] Admission and Anticipated Discharge Date Admission Date: December 06, 2020 Subjective 70 yo M with exertional SOB and fatigue, admitted for placement of ICD, planned for today. He denies any SOB, chest pain or other issues today. He expresses a desire to go home cristy. Review of Systems Review of Systems: All systems reviewed & are unremarkable except as noted in Subjective Physical Exam Physical Exam: CONSTITUTIONAL: obese, vitals as above, generally well- appearing EYES: normal conjunctivae, no scleral icterus ENT: external ear and nose normal, MMM RESPIRATORY: clear to auscultation bilaterally, no crackles, rales or wheezes, normal respiratory effort CARDIOVASCULAR: regular rate and rhythm, S1 and 2 heard without murmurs, gallops or rubs, no JVD, no peripheral edema GASTROINTESTINAL: soft, nontender, obese, nondistended. MUSCULOSKELETAL: head NC/AT, moves all extremities with ease. SKIN: warm and dry NEUROLOGIC: CN 2-12 grossly intact, normal cognition, normal speech, no gross focal deficits. PSYCHIATRIC: alert cooperative and oriented to person, place and time. Results & Data Results & Data ([facility]) Vital Signs (Past 12 Hours) Vital Signs Temp Pulse Pulse Resp BP BP Pulse Ox 12/08/20 11:33 64 18 97 12/08/20 11:20 49 L 16 130/60 97 12/08/20 08:15 57 L 12/08/20 07:22 36.3 C L 55 L 19 105/55 L 94 12/08/20 03:32 36.4 C L 54 L 14 114/54 L 98 Laboratory Results Short CBC 12/08/20 Range/Units 05:48 WBC 5.73 (4.8-10.8) K/uL Hgb 11.2 L (14.0-18.0) g/dL Hct 34.2 L (42-52) % Plt Count 200 (130-400) K/uL BMP 12/08/20 05:48 Sodium 139 Potassium 4.0 Chloride 108 H Carbon Dioxide 29 BUN 17 Creatinine 0.90 Glucose 88 Calcium 8.9 Liver Function 12/08/20 Range/Units 05:48 Total Bilirubin 0.4 (0.2-1) mg/dl Direct Bilirubin 0.1 (0-0.2) mg/dl AST 15 (15-37) U/L ALT 19 (12-78) U/L Alkaline Phosphatase 71 (45-117) U/L Albumin 3.0 L (3.4-5.0) gm/dl Medications Administered Current Inpatient Medications Acetaminophen (Acetaminophen 325 Mg Tab) 650 mg PO Q4H PRN PRN Reason: Pain or Fever Stop: 01/05/21 14:39 Al Hydrox/Mg Hydrox/Simethicone (Aluminum/Magnesium Susp 30 Ml Udc) 15 ml PO Q4H PRN PRN Reason: Dyspepsia Stop: 01/05/21 14:39 Albuterol (Albut/Ipratrop 3mg/0.5mg Neb 3 Ml Vial) 3 ml INH QID PRN PRN Reason: Shortness Of Breath Or Wheezing Stop: 01/05/21 14:39 Last Admin: 12/08/20 11:34 Dose: 3 ml Documented by: Atropine Sulfate (Atropine Sulfate 0.1 Mg/Ml 10ml Syr) 0.5 mg IV Q1M PRN PRN Reason: PACU Use-HR<40 &/or Bradycardi Stop: 12/08/20 19:30 Cephalexin HCl (Cephalexin 500 Mg Cap) 500 mg PO QID [facility] Stop: 12/08/20 21:01 Last Admin: 12/08/20 07:56 Dose: 500 mg Documented by: Clopidogrel Bisulfate (Clopidogrel Bisulfate 75 Mg Tab) 75 mg PO DAILY [facility] Stop: 01/06/21 08:59 Last Admin: 12/08/20 07:58 Dose: 75 mg Documented by: Ephedrine Sulfate (Ephedrine Sulfate 50 Mg/Ml Amp) 5 mg IV Q5M PRN PRN Reason: PACU Use Only-SBP<90 mmHg Stop: 12/08/20 19:30 Famotidine (Famotidine 20 Mg Tab) 20 mg PO BID [facility] Stop: 01/05/21 20:59 Last Admin: 12/08/20 07:56 Dose: 20 mg Documented by: Fentanyl Citrate (Fentanyl Citrate 100 Mcg/2 Ml Vial) 25 mcg IV Q5M PRN PRN Reason: PACU Use Only-Pain Stop: 12/08/20 19:30 Fluticasone Propionate (Fluticasone Propionate Na Spr 16 Gm Btl) 2 sprays NA DAILY [facility] Stop: 01/06/21 08:59 Last Admin: 12/08/20 08:00 Dose: 2 sprays Documented by: Fluticasone/Vilanterol (Fluticasone/Vilanterol 100/25mcg 14 Puffs/Inhaler) 1 puffs INH DAILY [facility] Stop: 01/05/21 15:29 Last Admin: 12/08/20 08:00 Dose: 1 puffs Documented by: Losartan Potassium (Losartan Potassium 25 Mg Tab) 25 mg PO DAILY [facility] Stop: 01/06/21 08:59 Last Admin: 12/08/20 08:34 Dose: 25 mg Documented by: Magnesium Hydroxide (Magnesium Hydroxide Susp 30 Ml Udc) 30 ml PO Q12H PRN PRN Reason: Constipation Stop: 01/05/21 14:39 Metoprolol Succinate (Metoprolol Succ 50mg Ext Rel Tab) 100 mg PO DAILY [facility] Stop: 01/06/21 08:59 Last Admin: 12/08/20 08:34 Dose: Not Given Documented by: Miscellaneous (Remove Nicoderm Patch) 1 ea N/A DAILY@0859 [facility] Stop: 01/07/21 08:58 Last Admin: 12/08/20 07:58 Dose: 1 ea Documented by: Montelukast Sodium (Montelukast Sodium 10 Mg Tablet) 10 mg PO PM [facility] Stop: 01/05/21 20:59 Last Admin: 12/07/20 21:13 Dose: 10 mg Documented by: Nicotine (Nicotine 21 Mg/24 Hr Tdsy) 21 mg TD DAILY [facility] Stop: 01/06/21 20:39 Last Admin: 12/08/20 07:55 Dose: 21 mg Documented by: Ondansetron HCl (Ondansetron Inj 2 Mg/Ml 2 Ml Vial) 4 mg IV Q6H PRN PRN Reason: Nausea Stop: 01/05/21 14:39 Ondansetron HCl (Ondansetron Inj 2 Mg/Ml 2 Ml Vial) 4 mg IV ONCE PRN PRN Reason: PACU Use Only-Nausea/Vomiting Stop: 12/08/20 19:30 Polyethylene Glycol (Polyethylene (Miralax) 17 Gm Pack) 17 gm PO DAILY PRN PRN Reason: Constipation Stop: 01/05/21 14:39 Potassium Chloride (Potassium Chloride Crtab 20 Meq Tabcr) 20 meq PO DAILY [facility] Stop: 01/06/21 08:59 Last Admin: 12/08/20 07:57 Dose: 20 meq Documented by: Quetiapine Fumarate (Quetiapine Fumarate 25 Mg Tablet) 25 mg PO HS PRN PRN Reason: Sleep Stop: 01/05/21 14:39 Last Admin: 12/07/20 21:11 Dose: 25 mg Documented by: Sennosides (Senna 8.6 Mg Tab) 8.6 mg PO HS [facility] Stop: 01/05/21 20:59 Last Admin: 12/07/20 21:13 Dose: 8.6 mg Documented by: Spironolactone (Spironolactone 25 Mg Tab) 25 mg PO DAILY [facility] Stop: 01/06/21 08:59 Last Admin: 12/08/20 08:00 Dose: 25 mg Documented by: Tamsulosin HCl (Tamsulosin Hcl 0.4 Mg Cap) 0.4 mg PO DAILY [facility] Stop: 01/06/21 08:59 Last Admin: 12/08/20 07:57 Dose: 0.4 mg Documented by: Tramadol HCl (Tramadol Hcl 50 Mg Tablet) 50 mg PO Q6H PRN PRN Reason: Pain Stop: 01/05/21 14:39 Umeclidinium Lowell (Umeclidinium Lowell 62.5mcg/Blister 7 Puffs/Inhaler) 1 puffs INH DAILY [facility] Stop: 01/05/21 15:29 Last Admin: 12/08/20 08:00 Dose: 1 puffs Documented by:
--- NOTE | 2020-12-08 16:02 | Operative Report ---
Post Operative Report Pre & Post Diagnosis ICM, LBBB, CHF Operation Date: 12/08/20 10:00 <No data on this case meets the specified criteria> I identified the patient and participated in the time-out.: Yes Procedure Operation Date: 12/08/20 10:00 Actual Procedures BiV ICD- Ev Avila DO Surgeon Ev Avila, Certified Legal Secretary Specialist none Estimated Blood Loss 30 Findings Consistent with Post-Op Diagnosis Specimens none Description of Procedure see official report I attest to the content of the Intraoperative Record and any orders documented therein. Any exceptions are noted below.
[2020-12-08] MEDS ORDERED: FLUMAZENIL 0.1 MG/1 ML 10 ML VIAL IV PRN (16:16)
[2020-12-08] MEDS ORDERED: LABETALOL HCL IV 5 MG/ML 20ML IV PRN (16:16)
[2020-12-08] MEDS ORDERED: PROMETHAZINE HCL 12.5 MG in SODIUM CHLORIDE 0.9% 50 ML IV PRN (16:16)
[2020-12-08] MEDS ORDERED: NALOXONE HCL 0.4 MG/1 ML VIAL/CARP IV PRN (16:16)
[2020-12-08] MEDS: ACETAMINOPHEN 325 MG TAB PO PRN (16:48)
[2020-12-08] MEDS ORDERED: MoRPHine SULFATE 4 MG/ML 1 ML CARP\\VIAL IV PRN (20:04)
[2020-12-08] MEDS: oxyCODONE HCL IR 5 MG TAB (IMMEDIATE RELEASE) PO PRN (20:38)
[2020-12-08] MEDS: MONTELUKAST SODIUM 10 MG TABLET PO SCH (20:44)
[2020-12-08] MEDS: SENNA 8.6 MG TAB PO SCH (20:44)
--- NOTE | 2020-12-09 06:35 | Anesthesiology Progress Note ---
Date of Service December 09, 2020 Anesthesia Post Procedure Vital Signs Vital Signs: Temp Pulse Pulse Resp BP BP Pulse Ox 12/09/20 03:06 97.7 F 66 24 104/63 94 12/08/20 23:01 97.3 F L 67 13 107/64 92 12/08/20 18:59 97.5 F L 59 L 115/64 96 12/08/20 17:51 97.7 F 61 16 105/54 L 94 12/08/20 17:10 67 16 112/65 94 12/08/20 16:52 63 16 125/61 92 12/08/20 16:40 97.3 F L 70 18 103/54 L 94 12/08/20 16:30 62 18 124/64 95 12/08/20 16:13 97.9 F 70 18 129/62 98 12/08/20 11:33 64 18 97 12/08/20 11:20 49 L 16 130/60 97 12/08/20 08:15 57 L 12/08/20 07:22 97.3 F L 55 L 19 105/55 L 94 Transfer of Care Handoff Completed per policy Notes Mental Status: alert / awake / arousable and participated in evaluation Patient Amnestic to Procedure: Yes Nausea / Vomiting: adequately controlled Pain: adequately controlled Airway Patency, RR, SpO2: stable & adequate BP & HR: stable & adequate Hydration State: stable & adequate Anesthetic Complications: no major complications apparent and Pt Satisfied with anesthetic care
[2020-12-09] MEDS: ACETAMINOPHEN 325 MG TAB PO PRN (07:40)
[2020-12-09] MEDS: oxyCODONE HCL IR 5 MG TAB (IMMEDIATE RELEASE) PO PRN (07:40)
[2020-12-09] MEDS: TAMSULOSIN HCL 0.4 MG CAP PO SCH (07:41)
[2020-12-09] MEDS: POTASSIUM CHLORIDE CRTAB 20 MEQ TABCR PO SCH (07:41)
[2020-12-09] MEDS: LOSARTAN POTASSIUM 25 MG TAB PO SCH (07:41)
[2020-12-09] MEDS: FAMOTIDINE 20 MG TAB PO SCH (07:41)
[2020-12-09] MEDS: NICOTINE 21 MG/24 HR TDSY TD SCH (07:41)
[2020-12-09] MEDS: SPIRONOLACTONE 25 MG TAB PO SCH (07:41)
[2020-12-09] MEDS: METOPROLOL SUCC 50MG EXT REL TAB PO SCH (07:41)
[2020-12-09] MEDS: UMECLIDINIUM BROMIDE 62.5MCG/BLISTER 7 PUFFS/INHALER INH SCH (07:42)
[2020-12-09] MEDS: CLOPIDOGREL BISULFATE 75 MG TAB PO SCH (07:42)
[2020-12-09] MEDS: FLUTICASONE/VILANTEROL 100/25MCG 14 PUFFS/INHALER INH SCH (07:42)
--- NOTE | 2020-12-09 07:42 | XRay Report ---
XR chest 2V PA/lateral CLINICAL HISTORY: Chest x-ray status post pacemaker placement. COMPARISON STUDY: 12/06/2020 FINDINGS: The heart is enlarged. There is a left subclavian biventricular pacer/defibrillator. There is no pneumothorax. There is no failure. Increased basilar markings are likely atelectatic. These are most pronounced on the lateral view posteriorly. As other pathologic processes cannot be excluded, i t would seem prudent to obtain a follow-up chest x-ray in 2 months time.[There is partial visualizati on of aortic stent IMPRESSION: 1. No evidence of pneumothorax 2. Increased posterior basilar markings statistically atelectatic. A follow-up chest x-ray in 2 month s time is suggested. ACT 112: Negative or not required by law. Electronically signed by: Benitez Givens M.D. 12/09/2020 7:40 AM
[2020-12-09] MEDS: FLUTICASONE PROPIONATE NA SPR 16 GM BTL SCH (07:43)
--- NOTE | 2020-12-09 07:56 | Electrocardiogram Report ---
Test Reason : Blood Pressure : / mmHG Vent. Rate : 069 BPM Atrial Rate : 030 BPM P-R Int : 146 ms QRS Dur : 152 ms QT Int : 592 ms P-R-T Axes : 000 -81 063 degrees QTc Int : 634 ms AV dual-paced rhythm with frequent Premature ventricular complexes Biventricular pacemaker detected Abnormal ECG When compared with ECG of 08-DEC-2020 06:02, Electronic ventricular pacemaker has replaced Sinus rhythm Confirmed by Abdirahman Em ([id number]) on 12/09/2020 7:56:56 AM Referred By: Donavan Barker Confirmed By:Abdirahman Em
[2020-12-09] MEDS ORDERED: APIXABAN 5 MG TABLET PO SCH (09:00)
--- NOTE | 2020-12-09 10:17 | Cardiology Progress Note ---
Date of Service December 09, 2020 Assessment & Plan (1) Biventricular ICD (implantable cardioverter-defibrillator) in place: (2) Chronic HFrEF (heart failure with reduced ejection fraction): (3) Ischemic cardiomyopathy: (4) First degree AV block: (5) LBBB (left bundle branch block): (6) Atrial fibrillation: Patient with longstanding history of severe underlying COPD, as well as progressive symptoms due to ischemic cardiomyopathy with severe left ventricular systolic dysfunction, left bundle branch block. Patient underwent successful biventricular pacemaker ICD, device is functioning appropriately. He is stable for discharge from a cardiac perspective on his prior to hospital medications. Eliquis 5 mg twice daily has been resumed. He is already on chronic clopidogrel due to his history of coronary heart disease with past PCI, as well as peripheral arterial disease. Discharge on prior to hospital dose of torsemide 100 mg by mouth daily in the morning. For now, hold off on the previously prescribed extra dose of 50 mg of torsemide in the afternoon. Discharge on prior to hospital dose of spironolactone. Has follow up visit on 12/23/20 with Bella Albright PA-C at [facility]. I have contacted office to arrange wound check and device check within 10 days at [facility] and EP follow up. Wound care and instructions as per Dr Avila's note in the DC document. Admission and Anticipated Discharge Date Admission Date: December 06, 2020 Subjective Patient seen in follow-up of his history of exertional shortness of breath. He feels well today. He underwent implantation of a biventricular pacemaker ICD yesterday. Post procedure chest x-ray today reveals normal lead position and no evidence of pneumothorax. Device interrogation reveals stable findings, basal rate increased to 75 bpm, with hopes that overdrive pacing may suppress the frequent supraventricular and ventricular ectopy. Ongoing sinus rhythm noted. Review of Systems Review of Systems: All systems reviewed & are unremarkable except as noted in HPI & below Physical Exam Physical Exam: Temp Pulse Resp BP Pulse Ox 36.5 C 67 19 126/74 95 12/09/20 07:29 12/09/20 07:29 12/09/20 07:29 12/09/20 07:29 12/09/20 07:29 Constitutional: WD/WN, vitals as above Respiratory: normal respiratory effort, lungs clear to auscultation Cardiovascular: Left infraclavicular device site clean dry and intact, mild amount of dried blood noted on his bandage, with well approximated incision, no bleeding, no hematoma Gastrointestinal (Abdomen): normal bowel sounds, soft, nontender, no hepatosplenomegaly Neurologic: PERRL, EOMI, accommodation nl, no face palsy, no dysarthria Results & Data ([facility]) Vital Signs (Past 12 Hours) Vital Signs Temp Pulse Resp BP Pulse Ox 12/09/20 07:29 36.5 C 67 19 126/74 95 12/09/20 03:06 36.5 C 66 24 104/63 94 12/08/20 23:01 36.3 C L 67 13 107/64 92
--- NOTE | 2020-12-09 11:35 | Discharge Summary ---
Date of Service December 09, 2020 Admission HPI Per Admitting Provider This is a 70-year-old male who has significant past medical history for CAD, chronic HFrEF, L BBB,Afib on eliquis, BRIAN on BiPAP, COPD, tobacco abuse, abdominal aortic aneurysm and thoracic aortic aneurysm without rupture, PAD, BPH, depression with anxiety who presents to ED at recommendation of cardiology for medical optimization for biventricular AICD placement on 12/08. Patient has recent hospitalization in October 2020 secondary to COPD exacerbation as well as acute on chronic HFrEF. He was treated with IV steroids, doxycycline, nebs as well as IV diuretics. He was discharged home on torsemide 100 mg daily and sp ironolactone 25 mg daily. He also had episode of atrial fibrillation in which he underwent DCCV on 11/[address] Barker achieving NSR. Also of significance patient had recent cardiac catheterization on 10/20/2020 due to interval decline in LV systolic function with findings of stable chronic coronary artery disease with no culprit lesions for recent decline in LVEF. He has a chronic occlusion of the right coronary artery and a previously placed OM stents were patent. Patient has longstanding history of multifactorial is to be secondary to severe COPD, continued tobacco abuse and CAD. Due to decline in EF He was seen and evaluated by EP for device implant. He was last seen in cardiology clinic on 11/22 with a weight of 276 pounds which was -10 pounds since admission. Echocardiogram at that visit revealed persistently severely reduced LV systolic function despite medication. Also to note patient has been seen recently by [facility] ED and diagnosed with a left foot cellulitis. He was prescribed Keflex and. He was seen and followed by PCP on 12/03 and feels redness subsiding. In ED he feels well. He states ever since having cardioversion his shortness of breath has proved significantly. He is able to ambulate up to 22 steps without getting short of breath or stopping. He denies fever, chills, sweats, lightheadedness, chest pain, palpitations, WAY, nausea, vomiting, abdominal pain, change in bowel or urinary habits. His weight has been staying stable around 275 pounds. He does complain of dizziness described as a, "spinning sensation," with movement. He denies any falls or loss of consciousness. His is at bedside. He continues to smoke 1 pack a day. Admission Exam Per Admitting Provider Constitutional: WD/WN, M, vitals as above, NAD, sitting up in bed, pleasant, conversing easily Head: Normocephalic, Atraumatic Eyes: PERRL, conjunctivae normal, anicteric sclerae ENMT: external ear and nose normal, oropharynx normal Neck: trachea midline, no thyromegaly normal visual inspection Respiratory: normal respiratory effort, lungs clear to auscultation, no wheeze, rales, rhonchi. Normal insp/exp effort, no accessory muscle use Cardiovascular: RRR, no murmur, no edema Vessels: no JVD or carotid bruit Chest: normal inspection of chest Abdomen: normal bowel sounds, soft, nontender, no hepatosplenomegaly Musculoskeletal: no cyanosis or clubbing, extremities motor strength 5/5 Skin: no rashes, warm and dry normal turgor, previous area of L foot dorsum c ellulitis with residual pink hue no warmth or neil erythema Neurologic: PERRL, EOMI, accommodation nl, no face palsy, no dysarthria CN's II-XI intact bilaterally and moves all extremities Psychiatric: A+Ox3, euthymic affect Lymphatic: no cervical or axillary lymphadenopathy : deferred Principal Diagnosis Chronic heart failure with reduced ejection fraction Ischemic cardiomyopathy First-degree AV block Left bundle branch block Atrial fibrillation Status post biventricular ICD Discharge Exam CONSTITUTIONAL: obese, vitals as above, generally well-appearing EYES: normal conjunctivae, no scleral icterus ENT: external ear and nose normal, MMM RESPIRATORY: clear to auscultation bilaterally, no crackles, rales or wheezes, normal respiratory effort CARDIOVASCULAR: regular rate and rhythm, S1 and 2 heard without murmurs, gallops or rubs, no JVD, no peripheral edema GASTROINTESTINAL: soft, nontender, obese, nondistended. MUSCULOSKELETAL: head NC/AT, moves all extremities with ease. SKIN: warm and dry NEUROLOGIC: CN 2-12 grossly intact, normal cognition, normal speech, no gross f ocal deficits. PSYCHIATRIC: alert cooperative and oriented to person, place and time. Discharge Data Allergies Allergy/AdvReac Type Severity Reaction Status Date / Time sacubitril [From Entresto] Allergy Severe THROAT Verified 12/06/20 11:48 SWELLING valsartan [From Entresto] Allergy Severe THROAT Verified 12/06/20 11:48 SWELLING atorvastatin [From Lipitor] Allergy Unknown Verified 12/08/20 11:34 simvastatin AdvReac Mild MUSCLE Verified 12/06/20 11:48 ACHES Consultations 12/06/20 11:21 Consult Cardiology Routine Procedures Performed Operation Date: 12/08/20 10:00 Actual Procedures p ICD Insertion Single or Dual - Ev Avila DO s Lead LV (No Priopr Implant) - Ev Avila DO s Venogram, Unilateral - Ev Avila DO Ordered Studies Laboratory Results WBC 5.73 K/uL (4.8-10.8) 12/08/20 05:48 RBC 3.89 M/uL (4.7-6.1) L 12/08/20 05:48 Hgb 11.2 g/dL (14.0-18.0) L 12/08/20 05:48 Hct 34.2 % (42-52) L 12/08/20 05:48 MCV 87.9 fL (80-100) 12/08/20 05:48 MCH 28.8 pg (25-34) 12/08/20 05:48 MCHC 32.7 g/dL (32-36) 12/08/20 05:48 RDW Std Deviation 50.8 fL (36.4-46.3) H 12/08/20 05:48 RDW Coeff of Minnie 15.8 % (11.5-14.5) H 12/08/20 05:48 Plt Count 200 K/uL (130-400) 12/08/20 05:48 MPV 10.9 fL (7.4-10.4) H 12/08/20 05:48 Immature Gran % (Auto) 0.2 % 12/07/20 03:50 Neut % (Auto) 60.0 % 12/07/20 03:50 Lymph % (Auto) 27.3 % 12/07/20 03:50 Haines % (Auto) 9.4 % 12/07/20 03:50 Eos % (Auto) 2.9 % 12/07/20 03:50 Baso % (Auto) 0.2 % 12/07/20 03:50 Neut # (Auto) 3.15 K/uL (1.4-6.5) 12/07/20 03:50 Lymph # (Auto) 1.43 K/uL (1.2-3.4) 12/07/20 03:50 Haines # (Auto) 0.49 K/uL (0.11-0.59) 12/07/20 03:50 Eos # (Auto) 0.15 K/uL (0-0.5) 12/07/20 03:50 Baso # (Auto) 0.01 K/uL (0-0.2) 12/07/20 03:50 Immature Gran # (Auto) 0.01 K/uL (0.00-0.02) 12/07/20 03:50 PT 10.4 Seconds (9.0-12.0) 12/06/20 12:00 INR 1.0 (0.9-1.1) 12/06/20 12:00 APTT 26.4 Seconds (21.0-31.0) 12/06/20 12:00 PTT Ratio 1.0 12/06/20 12:00 Sodium 139 mmol/L (136-145) 12/08/20 05:48 Potassium 4.0 mmol/L (3.5-5.1) 12/08/20 05:48 Chloride 108 mmol/L (98-107) H 12/08/20 05:48 Carbon Dioxide 29 mmol/L (21-32) 12/08/20 05:48 Anion Gap 2.0 (3-11) L 12/08/20 05:48 BUN 17 mg/dl (7-18) 12/08/20 05:48 Creatinine 0.90 mg/dl (0.6-1.4) 12/08/20 05:48 Est Cr Clr Drug Dosing 101.2 ml/min 12/08/20 05:48 Est GFR ( Amer) 99.2 12/08/20 05:48 Est GFR (Non-Af Amer) 85.6 12/08/20 05:48 BUN/Creatinine Ratio 18.8 (10-20) 12/08/20 05:48 Glucose 88 mg/dl (70-99) 12/08/20 05:48 POC Glucose 108 mg/dl (70-99) H 12/08/20 17:58 Calcium 8.9 mg/dl (8.5-10.1) 12/08/20 05:48 Magnesium 2.4 mg/dl (1.8-2.4) 12/07/20 03:50 Total Bilirubin 0.4 mg/dl (0.2-1) 12/08/20 05:48 Direct Bilirubin 0.1 mg/dl (0-0.2) 12/08/20 05:48 AST 15 U/L (15-37) 12/08/20 05:48 ALT 19 U/L (12-78) 12/08/20 05:48 Alkaline Phosphatase 71 U/L (45-117) 12/08/20 05:48 Troponin I < 0.015 ng/ml (0-0.045) 12/07/20 03:50 Total Protein 6.8 gm/dl (6.4-8.2) 12/08/20 05:48 Albumin 3.0 gm/dl (3.4-5.0) L 12/08/20 05:48 Globulin 3.8 gm/dl (2.5-4.0) 12/08/20 05:48 Albumin/Globulin Ratio 0.8 (0.9-2) L 12/08/20 05:48 COVID-19 Eval Order CovFluRsv at [facility] 12/06/20 11:55 SARS-CoV-2 (PCR) NEGATIVE (Negative) 12/06/20 11:55 Influenza Type A (PCR) Negative (Neg) 12/06/20 11:55 Influenza Type B (PCR) Negative (Neg) 12/06/20 11:55 RSV (RT-PCR) Negative (Neg) 12/06/20 11:55 Impressions Chest X-Ray 12/09/20 07:00 XR chest 2V PA/lateral CLINICAL HISTORY: Chest x-ray status post pacemaker placement. COMPARISON STUDY: 12/06/2020 FINDINGS: The heart is enlarged. There is a left subclavian biventricular pacer/defibrillator. There is no pneumothorax. There is no failure. Increased basilar markings are likely atelectatic. These are most pronounced on the lateral view posteriorly. As other pathologic processes cannot be excluded, it would seem prudent to obtain a follow-up chest x-ray in 2 months time.[There is partial visualization of aortic stent IMPRESSION: 1. No evidence of pneumothorax 2. Increased posterior basilar markings statistically atelectatic. A follow-up chest x-ray in 2 months time is suggested. ACT 112: Negative or not required by law. Electronically signed by: Benitez Givens M.D. 12/09/2020 7:40 AM Hospital Course (1) Chronic HFrEF (heart failure with reduced ejection fraction): (2) Ischemic cardiomyopathy: (3) First degree AV block: (4) LBBB (left bundle branch block): (5) CAD (coronary artery disease): (6) Atrial fibrillation: (7) COPD (chronic obstructive pulmonary disease): (8) Cellulitis of left foot: (9) Tobacco use: Mr. Cornell is a 70-year-old man with a significant past medical history for coronary artery disease, chronic heart failure with reduced ejection fraction, chronic left bundle branch block, chronic atrial fibrillation on Eliquis, obstructive sleep apnea, COPD, ongoing tobacco abuse, peripheral arter ial disease who presented to this hospital at the recommendation of cardiology for medical optimization for biventricular ICD placement on 12/08. His Eliquis was held preprocedure and he was transitioned to oral torsemide to IV furosemide while hospitalized. Potassium was continually replaced as needed. He presented with left foot cellulitis which was present on admission and Keflex was continued per outpatient regimen. This ultimately resolved during his hospital stay and he completed his antibiotic course prior to discharge. He remained compensated from both of COPD and heart failure standpoint. He subsequently underwent placement of a BiV ICD by Dr. Avila on 12/08/2020 without complications. The following day the postoperative chest x-ray was unremarkable aside from bibasilar atelectasis. A follow-up CXR in two months for re-evaluation was considered as a suggestion by the radiologist. He was stable for discharge from a cardiac perspective. He was advised to avoid previously prescribed extra dose of 50 mg of torsemide in the afternoon. He verbalized understanding of this with intent to comply. Wound instructions and follow-ups were reviewed with him at time of discharge. Physical exam at time of discharge was unremarkable with complete resolution of left foot cellulitis. He was discharged home in stable condition with close primary care and cardiology follow-up recommended. Total Time Total Time Spent Total Time Spent (In Minutes): 60 Total Time Includes: Examination of the Patient, Discharge Planning, Medication Reconciliation and Communication With Other Providers Discharge Plan Discharge Items Patient Disposition: Home - Self-Care Reason For Visit: CHRONIC HFREF, AICD TO BE PLACED Discharge Diagnosis: Chronic heart failure with reduced ejection fraction Ischemic cardiomyopathy First-degree AV block Left bundle branch block Atrial fibrillation Status post biventricular ICD Left foot cellulitis-present on admission Tobacco use Condition on Discharge: Good Activity: As commented below Activity Comment: do not raise the left elbow over the left shoulder for 1 month Lifting: No more than 10 pounds Lifting Comment: do not lift more than 10 pounds with the left arm for 2 weeks Bathing: Keep incision dry Bathing Comment: keep dressing on and dry until wound check next week Sexual Activity: After two weeks Non-emergency contact: Primary Care Provider Call non-emergency contact if: you have any medication questions and your symptoms worsen Follow-up/Referrals: Larry Saravia PA-C [Primary Care Provider] - (Date & Time 12/13/2020 2:20 PM Provider Larry Saravia Jr., PA-C Department [facility] ([place], [place]) ) Diet: Heart Healthy and Low Sodium (2gm) Addtl Attending Provider Instructions: Please take all medications as instructed on discharge list below. Please follow-up with [facility] cardiology for device check and wound check in 7 to 10 days as instructed Please [facility] It is recommended that you follow-up with your primary care doctor within 1 week of this hospital stay to ensure you are still doing well after going home. It is recommended that you hold on taking any further torsemide in the afternoon and continue with the daily dose of 100 mg every morning. Please follow all activity restrictions and postoperative instructions as listed above by Dr. Saucedo. It is strongly recommended that you quit smoking as this is terrible for your h ealth and may increase your risk of a heart attack or stroke. You have been provided with nicotine supplementation in the form of NicoDerm patches to help you in this endeavor. It was a pleasure taking care of you! Please call if you have any questions or problems. You can reach a [facility] hospitalist on duty at [facility] 24 hours a day by calling [phone]. Take care of yourself. Xochitl Jon DO [facility] Hospitalist Addtl Life Skills Worker Provider Instructions: Device and wound check next week as scheduled at [facility] Cardiology Pending Studies at Discharge: No Stand-Alone Forms: My [facility], Smoking Cessation Medications and DC Order Prescriptions: New nicotine [Nicoderm CQ] 21 mg/24 hr Patch 24 Hour 21 mg transdermal DAILY Qty: 14 RF: 0 Continued ipratropium-albuterol 0.5 mg-3 mg(2.5 mg base)/3 mL solution for nebulization 3 ml INH QID PRN (Reason: Shortness Of Breath Or Wheezing) RF: 0 tamsulosin [Flomax] 0.4 mg capsule 0.4 mg PO DAILY RF: 0 clopidogrel [Plavix] 75 mg tablet 75 mg PO DAILY RF: 0 famotidine 20 mg Tablet 20 mg PO BID RF: 0 mometasone [Nasonex] 50 mcg/actuation [place],Non-Aerosol 2 spray INTRANASAL DAILY RF: 0 senna 8.6 mg Capsule 8.6 mg PO HS RF: 0 tramadol 50 mg Tablet 50 mg PO Q6H PRN (Reason: Pain) RF: 0 quetiapine 25 mg tablet 25 mg PO HS PRN (Reason: Sleep) RF: 0 metoprolol succinate 100 mg tablet extended release 24 hr 100 mg PO DAILY RF: 0 potassium chloride 10 mEq tablet extended release 20 meq PO DAILY RF: 0 spironolactone 25 mg tablet 25 mg PO DAILY RF: 0 torsemide 100 mg tablet 100 mg PO DAILY RF: 0 losartan 25 mg tablet 25 mg PO DAILY RF: 0 montelukast 10 mg tablet 10 mg PO PM RF: 0 Eliquis 5 mg tablet 5 mg PO BID RF: 0 Trelegy Ellipta 100-62.5-25 mcg blister with device 1 inh INHALATION DAILY RF: 0 Repatha SureClick 140 mg/mL Pen Injector 140 mg SUBCUT MONTHLY RF: 0 Discontinued cephalexin 500 mg Capsule 500 mg PO QID RF: 0 Discharge Orders: Discharge Order (Routine); Ordered 12/09/20 Ordered By: Xochitl Jon Admission Data Admit Date/Time: 12/06/20 11:21 Attending Provider: Xochitl Jon Admit Provider: Chapo Underwood Primary Care Provider: Larry Saravia Other Providers: Jayesh Youngblood Other Interventions: Discharge Summary Assessment (RN) Last Done: 12/09/20 12:01
--- NOTE | 2020-12-11 23:27 | Operative Report (OR) ---
DATE OF OPERATION: 12/08/2020 PREOPERATIVE DIAGNOSES: Ischemic cardiomyopathy, left bundle branch block, chronic heart failure. POSTOPERATIVE DIAGNOSES: Ischemic cardiomyopathy, left bundle branch block, chronic heart failure. PROCEDURE: Biventricular rate responsive implantable cardiac defibrillator along with peripheral and coronary sinus venogram. SURGEON: Ev Avila DO ASSISTANTS: None. ANESTHESIA: Monitored anesthetic care given by anesthesiology. Start time 1301, end time 1555. A total of 2 mg of Versed, 300 mcg of fentanyl. INTRAVENOUS FLUIDS: 350 mL. ANTIBIOTICS: 3 grams of Ancef. BLOOD LOSS: 30 mL. CONTRAST: 30 mL. URINE OUTPUT: Not applicable. SPECIMENS: None. FINDINGS: See below. DRAINS: None. INDICATIONS: This is a 70-year-old gentleman with a past medical history for ischemic cardiomyopathy, first degree AV block, left bundle branch block, paroxysmal atrial fibrillation, on Eliquis and high-dose metoprolol, chronic heart failure with reduced ejection fraction, coronary artery disease, status post an TX in 1997 as well as PCI to the OM and diagonal in 02/2019, hyperlipidemia, peripheral vascular disease, status post AAA repair, COPD, obstructive sleep apnea, on BiPAP and restless leg syndrome. The patient was recommended biventricular ICD given his worsening congestive heart failure, ischemic cardiomyopathy and left bundle branch block. CONSENT: Consent was obtained prior to the patient going into electrophysiology lab. The patient was informed of risks, benefits and alternative procedure. Risks include but not limited to sudden cardiac , cardiac arrhythmias, cerebrovascular accident, myocardial infarction, injury to the blood vessels, chamber of the heart, lung, bleeding, and infection. The patient understood these risks and agreed to procedure as planned. Informed consent was obtained. DESCRIPTION OF THE PROCEDURE: The patient was brought into the electrophysiology lab in a fasting state. He was connected to continuous manager monitoring. Timeout was performed to ensure patient identity and procedure correctly. He was prepped and draped over the left infraclavicular space in normal surgical standard fashion. Monitored anesthetic care was given throughout the procedure for patient's comfort level. Hunker precautions maintained throughout the procedure. He received prophylactic antibiotics prior to incision. 10 mL of 1% lidocaine, bupivacaine mixture were given in the left deltopectoral groove. Incision was made in left deltopectoral groove. Blunt dissection performed down to identify cephalic vein; however, none could be identified, so peripheral venogram was performed to identify the axillary vein. Venous axillary access was obtained through a needlestick 2 different times. In the more lateral needle stick, an 8-[place] sheath was inserted over the guidewire. The dilator was removed and a second guidewire was inserted through the sheath to allow for retained venous access. Sheath was removed. Then, a 9.5-[place] SafeSheath was advanced through one of the guidewires through the more lateral stick. The guidewire and dilator removed. The right ventricular lead was then advanced into right ventricle, positioned in intraventricular apex under fluoroscopic guidance. There was adequate pacing and sensing thresholds and no diaphragmatic stimulation in high output pacing. The 9.5-[place] sheath was peeled away and lead was fixated to pectoralis muscle using 0 silk suture. An 8-[place] SafeSheath was then advanced over the retained guidewire in the more lateral stick. The guidewire and dilator removed. The right atrial lead was advanced into right atrium and positioned in the interatrial appendage under fluoroscopic guidance. There was adequate pacing and sensing thresholds and no diaphragmatic stimulation after pacing. The 8-[place] sheath was peeled away and lead was fixated to pectoralis muscle using 0 silk suture. Through the more medial stick over the guidewire, a 9.5-[place] SafeSheath was advanced. The guidewire and dilator were removed. Then an MPX sheath was advanced over a Glidewire. The Glidewire and dilator were removed. Then the diagnostic coronary sinus Decapolar catheter was advanced and the coronary sinus was cannulated. It was more inferior than expected and there seemed to be a high turn or takeoff tortuosity at the CSF. I ultimately actually had to use an extended hook instead of an MPX. Venogram was then performed of the coronary sinus, which did show a nice posterolateral branch. I was able to wire this with a Whisper with the extended hook and I advanced the S-shaped pacing lead out; however, it ultimately pulled back when I had slit the extended hook as well as I had already peeled away the 9.5-[place] sheath. So what I did was, I put a wire back down through the lead, tracked the lead back and advanced an OptiSeal 9-[place] sheath down. Then, I tried first using the MPX sheath that we still had on the table to cannulate the coronary sinus. I was able to do this again and get a Whisper wire down the branch; however, I could not track the lead back down, so then I swapped the lead out for a straight, but I still had difficulties with this. Then, I added an inner 90 and I still had difficulty, so then I went back with a new extended hook and re-Whisper'd the branch and was able to get it without the inner 90. The Whisper wire went down and then I was able to track the straight lead down into the branch. There was adequate pacing and sensing thresholds and no diaphragmatic stimulation with high output pacing. Then, the extended hook was slit under fluoroscopic guidance and a 9-[place] OptiSeal sheath was peeled away. The lead was then fixated to pectoralis muscle using 0 silk suture. A pursestring was placed around the venous puncture site to prevent any further backbleeding. The pocket was created using blunt dissection over the pectoralis muscle within the pectoralis fascia. The pocket was flushed with copious amounts of bacitracin saline wash and inspected for hemostasis. Pulse generator was then attached to the leads making sure the pins were in appropriate position, passed set screw and set screws were all tightened. Pulse generator was then placed in antibiotic pouch followed then by being placed in the pocket, making sure that the leads were lying flat beneath the device. Incision was closed in a 3-layer fashion with 2-0 Vicryl interrupted suture followed by 3-0 Vicryl interrupted suture, followed by 4-0 Monocryl running stitch and Dermabond was applied followed by Telfa and micropore dressing. EQUIPMENT: 1. The generator is a Medtronic [id number] was the model number. The Q-Layer Quad [employer]ER [employer]-D SureScan, serial #[id number]. 2. Tyrx pouch is reference [id number], lot number [id number]. 3. Right atrial lead Medtronic 5076-53 cm, serial number [id number]. 4. Right ventricular lead, Medtronic 6935-62 cm, serial number #[id number]. 5. Coronary sinus lead is a 4398-88 cm, Medtronic, serial number #[id number]. INTRAOPERATIVE TESTIN. Right atrial lead: P wave is 1.2 millivolts, impedance 418 ohms, threshold 0.6 volts at 0.4 milliseconds. 2. Right ventricular lead: R wave is 5.2 millivolts, impedance 720 ohms, threshold 0.75 volts at 0.4 milliseconds. 3. Left bundle lead: Impedance 1845. It was programmed LV 1 to 2 and the threshold was 1.25 volts at 0.4 milliseconds. FINAL MEASUREMENTS THROUGH THE DEVICE: 1. Right atrial lead: P wave is 1.6 millivolts, impedance 437 ohms, threshold 0.5 volts at 0.4 milliseconds. 2. Right ventricular lead: R wave is 5 millivolts, impedance 589 ohms, threshold 0.5 volts at 0.4 milliseconds. 3. Left bundle lead impedance 361 ohms, threshold 0.5 volts at 0.4 milliseconds. Of note, it was programmed LV3 to RV coil. FINAL PARAMETERS: DDDR 60/120. Right atrial and right ventricular amplitude 3.5 volts, pulse width 0.4 milliseconds, sensitivity 0.3 millivolts. Left ventricular amplitude 3.5 volts, pulse width 0.4 milliseconds. VT monitor zone 150 beats per minute with a 32 detection interval, VT zone at 167 beats per minute for a 16 detection interval and a VF zone at 200 beats per minute for a 30/40 detection interval. IMPRESSION: Successful biventricular rate responsive implantable cardiac defibrillator along with peripheral venogram and coronary sinus venogram under fluoroscopic guidance secondary to ischemic cardiomyopathy, congestive heart failure, and left bundle branch block. PLAN: Monitor patient overnight, 12-lead ECG, chest x-ray. He cannot lift left elbow or left shoulder for 1 month. He cannot lift more than 10 pounds with the left arm for 2 weeks. He is to keep the dressing on and dry until his wound check next week. We will check it tomorrow as he is staying overnight in the hospital and he can start his Eliquis tomorrow and he will follow up with general cardiology as scheduled. I attest to the content of the Intraoperative Record and any orders documented therein. Any exception s are noted below.
== END 2020-12-09 13:40 | disposition home or self-care (01) | DRG 227 ==
LOC: ED 11:09 → 2S 11:21 → SUATTDRO 11:21 → 2S 14:24
PROC: EPB.ICD (2020-12-08 10:00)
DX: I73.9 Peripheral vascular disease, unspecified; Z79.01 Long term (current) use of anticoagulants; I25.10 Atherosclerotic heart disease of native coronary artery without angina pectoris; F17.210 Nicotine dependence, cigarettes, uncomplicated; J44.9 Chronic obstructive pulmonary disease, unspecified; G89.29 Other chronic pain; I48.20 Chronic atrial fibrillation, unspecified; N40.0 Benign prostatic hyperplasia without lower urinary tract symptoms; L03.116 Cellulitis of left lower limb; M54.9 Dorsalgia, unspecified; I50.22 Chronic systolic (congestive) heart failure; G47.33 Obstructive sleep apnea (adult) (pediatric); I25.5 Ischemic cardiomyopathy; I44.0 Atrioventricular block, first degree

== ENCOUNTER 2023-12-10 21:56 | Observation (INO) ==
[2023-12-10 22:28] LABS: Hematocrit (blood only) 30.4 % (42.0-52.0); Mean Corpuscular Hemoglobin 28.7 pg (25.0-34.0); Mean Corpuscular Hgb Conc 32.9 g/dL (32.0-36.0); Mean Corpuscular Volume 87.4 fL (80.0-100.0); Mean Platelet Volume 10.7 fL (9.4-12.4); Platelet Count 241 K/uL (130-400); RDW Coefficient of Variation 16.1 % (11.5-14.5); RDW Standard Deviation 51.2 fL (36.4-46.3); Red Blood Count 3.48 M/uL (4.70-6.10); White Blood Count 10.27 K/ul (4.8-10.8)
[2023-12-10 22:33] LABS: Appearance Urine Clear (Clear); Bilirubin Urine Negative (Negative); Blood Urine Negative (Negative); Color Urine Yellow; Glucose Urine UA Negative (Negative); Ketones Urine Trace (Negative); Leukocyte Esterase Urine Negative (Negative); Nitrite Urine Negative (Negative); Protein Urine Negative (Negative); Specific Gravity Urine 1.013 (1.000-1.030); Urobilinogen Urine Negative (Negative); pH Urine 5.5 (4.5-7.5)
[2023-12-10 22:43] LABS: INR 1.1 (0.9-1.1); Partial Thromboplastin Ratio 1.2; Partial Thromboplastin Time 31 Seconds (21-31)
[2023-12-10 23:18] LABS: Albumin Globulin Ratio 1.1 (0.9-2); Albumin Level 3.5 gm/dl (3.4-5.0); BUN Creatinine Ratio 12.4 (10-20); Bilirubin,Total 0.6 mg/dl (0.2-1.0); Calcium 8.5 mg/dl (8.6-10.3); Creatinine Clr Calc Pharmacy 54.5 ml/min; Est GFR (African American) 54.6 ml/min; Est GFR (Non-African American) 47.1 ml/min; Globulin 3.3 gm/dl (2.5-4.0); Magnesium 1.7 mg/dl (1.7-2.4); Potassium 3.9 mmol/L (3.5-5.1); Total Protein 6.8 gm/dl (6.0-8.3)
[2023-12-11] MEDS: OPTIRAY 320 100ml IV ONE (00:07)
--- NOTE | 2023-12-11 00:48 | CT Scan Report ---
Exam(s): CT HEAD Without Contrast EXAM: CT Head Without Intravenous Contrast CLINICAL HISTORY: Reason for exam: Confusion, falls. TECHNIQUE: Axial computed tomography images of the head/brain without intravenous contrast. CTDI is 35.51 mGy and DLP is 234.15 mGy-cm. Automated exposure control was utilized for the study. A dose lowering technique was utilized adhering to the principles of ALARA. Moderate to severe motion artifact COMPARISON: None. FINDINGS: Brain: No mass effect or acute infarct. No acute hemorrhage. Mild atrophy and chronic white matter disease. Ventricles: No hydrocephalus or midline shift. Bones/joints: No acute bony lesion. Soft tissues: No scalp hematoma. Visualized Sinuses: Clear. Mastoid air cells: No mastoid effusion. IMPRESSION: 1. Mild age-related findings. 2. No acute infarct, bleed, or acute intracranial abnormality. 3. Significant motion artifact limits evaluation. Electronically signed by: Sharri Loyd M.D. 12/11/23 00:47 AM
[2023-12-11] MEDS: SODIUM CHLORIDE 0.9% 1,000 ML IV SCH (00:49)
--- NOTE | 2023-12-11 01:00 | Emergency Department Note ---
Impression & Plan Acute hypotension, Acute alteration in mental status ED Provider Note NAME: FELICITAS MEYER AGE: 73 SEX: M : 1950 ARRIVES VIA: Walk-In INFORMANT: Patient, ED PROVIDER(S): Erin Sorto MD CHIEF COMPLAINT: Hypotension, confusion HPI: This is a 73-year-old male history of persistent atrial fibrillation, PVD, CHF, COPD presenting for hypotension and confusion. Patient is currently resting in the stretcher, mildly hypotensive. His provides most of the history stating that he was recently seen for hypotension in outside facility where he had a trauma workup that was negative. They are unclear why he had hypotension. He then presents here and states that he has had episodes where he just "spaces out ". He notes he is in no current pain except for his left upper extremity because he had fallen on it previously. This is new since his discharge from the hospital. Otherwise no recent fevers or chills. No nausea or vomiting. No pain in the rest of his body. ROS: See above HPI for pertinent positives & negatives. A total of 10 systems reviewed and were otherwise negative. PHYSICAL EXAMINATION: General: Chronically ill-appearing, morbidly obese, disheveled Head: Normocephalic delete Eyes: Normal inspection, extraocular muscles intact Ear, nose, throat: Normal external exam Neck: Normal range of motion Respiratory: Distant lung sounds Cardiovascular: Regular rate/rhythm GI: soft, nontender, no guarding or rebound Extremities: Left upper extremity swelling, scattered abrasions on all extremities Neuro: The patient awake and alert, appropriately conversive, no focal deficits, symmetric faces Skin: Warm, dry, and intact MEDICAL DECISION MAKING: This is a 73-year-old male history of atrial fibrillation, PVD, CHF, COPD presented for hypotension and confusion. Patient appears clinically well with reassuring neurologic exam however does have episodes where he is less responsive. Transiently for few seconds. Is not very consistent with absence seizure clinically. Otherwise he is hypotensive, will give fluid resuscitation. Low concern for sepsis without fever or tachycardia. However still consider cardiogenic shock, hypovolemic shock, sepsis -Lab reviewed showing no leukocytosis, show anemia. Normal electrolytes with creatinine around baseline. Overall patient appears well with reassuring CT imaging that shows no acute process head or abdomen. -Chest Xray independently interpreted by me showing no pneumothorax, focal opacity, or pleural effusions. -Elbow x-ray independently interpreted by me showing no acute fracture or dislocation. -Ultrasound report shows no DVT. -Will require admission for further etiology of patient's appendicitis and hypotension. Differential diagnosis: See above ER treatment provided: See below Diagnostics interpreted by me: ECG: ECG independently interpreted by me with ventricular paced rhythm, rate of 91, intraventricular conduction delay normal QTc, no ST segment elevations consistent with STEMI criteria Cardiac Monitoring: An order was placed for continuous cardiac monitoring. The monitor shows a rate of 87 with sinus rhythm. Laboratory studies: As stated above and show below. Imaging studies: See below. Past Med/Surg History Medical History On anticoagulant therapy Tobacco use Biventricular ICD (implantable cardioverter-defibrillator) in place LBBB (left bundle branch block) Ischemic cardiomyopathy PVD (peripheral vascular disease) S/p AAA repair - FEVAR with bilateral renal stents 2017 History of skin cancer Restless leg syndrome Atrial fibrillation On Eliquis Myocardial Infarction 1997, taken to [facility] Hypertension Hyperlipidemia Claustrophobia Sleep apnea BIPAP (STATES DOES NOT USE) Chronic systolic heart failure secondary to ischemic cardiomyopathy (EF 20% on 2020 CLAIRE)- s/p ICD placement 12/2020 EF 45-49% on 02/2023 ECHO NICM (nonischemic cardiomyopathy) Chronic back pain BPH (benign prostatic hyperplasia) COPD (chronic obstructive pulmonary disease) CAD (coronary artery disease) PSYCHOLOGIST COUNSELING of RCA 2011 PCI of OM2 and diagonal February 2019 Repeat cath October 2020- revealed patent stents with PSYCHOLOGIST COUNSELING of RCA with left to right collaterals Surgical History History of cardioversion 06/2022, [facility], f/u dr christine, s History of open reduction and internal fixation (ORIF) procedure RT LEG (TIB/FIB) Stephen's cyst of knee X 2 REMOVED History of esophagogastroduodenoscopy (EGD) History of colonoscopy H/O abdominal surgery INTESTINAL POLYP REMOVAL AT AGE 5 S/P AAA repair ~2019 AT [facility] Hx of melanoma excision LEFT SHOULDER History of tooth extraction History of cataract surgery RT/LEFT History of cardiac cath MULTIPLE History of heart artery stent 1997 >2 STENTS PLACED TOTAL 4 STENTS (LAST 2 PLACED ~2019 AT [facility]) Family History Father Family history of diabetes mellitus Other No family history of adverse response to anesthesia Social History Smoking Status: Never smoker Tobacco Type: Cigarettes Cigarettes Per Day: 20 per day - advised; Second Hand Exposure: Yes (in the past); Do You Dip or Chew Tobacco: No; Hx Alcohol Use: Yes Alcohol type: hard liquor Alcohol Intake Frequency: Monthly or Less Hx Substance Use: No Preferred Language: Serbian Communication Ability: Effective Vulcanizer Operator Required: No Beliefs That Will Affect Care: None marital status: Current Living Situation: Spouse Other Information That Helps Us Care for You: No Feels Safe at Home: Yes Safety Concerns: Feels Safe At This Time Assistive Devices: Nebulizer Allergies Allergies Allergy/AdvReac Type Severity Reaction Status Date / Time sacubitril [From Entresto] Allergy Severe THROAT Verified 12/10/23 23:28 SWELLING valsartan [From Entresto] Allergy Severe THROAT Verified 12/10/23 23:28 SWELLING atorvastatin [From Lipitor] AdvReac Intermediate Muscle Pain Verified 12/10/23 23:28 simvastatin AdvReac Intermediate Muscle Pain Verified 12/10/23 23:28 Home Meds Home Medications Medication Instructions Recorded Confirmed clopidogrel 75 mg tablet (Plavix) 75 mg PO QAM 05/04/19 12/10/23 tamsulosin 0.4 mg capsule (Flomax) 0.8 mg PO QPM 05/04/19 12/10/23 apixaban 5 mg tablet (Eliquis) 5 mg PO BID 10/28/20 12/10/23 losartan 25 mg tablet 25 mg PO QAM 10/28/20 12/10/23 metoprolol succinate 100 mg 100 mg PO QAM 10/28/20 12/10/23 tablet,extended release 24 hr potassium chloride 10 mEq 20 meq PO QAM 10/28/20 12/10/23 tablet,extended release spironolactone 25 mg tablet 25 mg PO QAM 10/28/20 12/10/23 famotidine 20 mg tablet 20 mg PO BID 12/06/20 12/10/23 evolocumab 140 mg/mL subcutaneous 140 mg subcut UD 06/23/22 12/10/23 pen injector (Matthew Tapia) fluticasone 250 mcg-salmeterol 50 1 inh inhalation Q12H 06/13/23 12/10/23 mcg/dose blistr powdr for inhalation aripiprazole 2 mg tablet 2 mg PO QAM 10/03/23 12/10/23 desvenlafaxine succinate 100 mg 100 mg PO QAM 10/03/23 12/10/23 tablet,extended release 24 hr digoxin 125 mcg (0.125 mg) tablet 125 mcg PO QAM 10/03/23 12/10/23 metoprolol succinate 50 mg 50 mg PO HS 10/03/23 12/10/23 tablet,extended release 24 hr albuterol sulfate 2.5 mg/3 mL 2.5 mg inhalation Q4H PRN Wheezing 12/10/23 12/10/23 (0.083 %) solution for nebulization allopurinol 100 mg tablet 200 mg PO QAM 12/10/23 12/10/23 ascorbic acid (vitamin C) 1,000 mg 1 g PO QAM 12/10/23 12/10/23 tablet (Vitamin C) baclofen 20 mg tablet 20 mg PO TID PRN MUSCLE SPASMS 12/10/23 12/10/23 hydrocodone 7.5 mg-acetaminophen 1 tab PO Q6H PRN Pain 12/10/23 12/10/23 325 mg tablet naloxone 4 mg/actuation nasal spray 4 mg intranasal DIRECTED PRN 12/10/23 12/10/23 Opioid Overdose omega-3 acid ethyl esters 1 gram 2 cap PO BID 12/10/23 12/10/23 capsule torsemide 10 mg tablet 50 mg PO QAM 12/10/23 12/10/23 Results & Data (ED) Vital Signs Vital Signs - 24 hr 12/10/23 22:01 12/10/23 22:27 12/10/23 22:52 Temperature 37.1 C Temperature Source Temporal Artery Scan Pulse Rate 95 H 86 Pulse Rate [Radial] 84 Pulse Rhythm Regular Pulse Strength Normal Respiratory Rate 18 18 Respiratory Effort / Characteristics Non-Labored Spontaneous Non-Labored Spontaneous Respiratory Depth Normal Normal Respiratory Pattern Regular Regular Blood Pressure 77/45 L Blood Pressure [Left Arm] 106/51 L Blood Pressure Mean 55 Blood Pressure Mean [Left Arm] 69 Blood Pressure Position Sitting Pulse Oximetry 96 98 Oxygen Delivery Method Room Air Room Air Sepsis Recent Fever Within 48 Hours No Sepsis New/Unexplained Change in Mental Status N/A Sepsis Action Taken by Nursing No Action Required Laboratory Data 12/12/23 05:20 12/12/23 05:20 Lab Results 12/10/23 12/10/23 12/10/23 Range/Units 22:11 22:12 22:23 WBC 10.27 (4.8-10.8) K/ul RBC 3.48 L (4.70-6.10) M/uL Hgb 10.0 L (14.0-18.0) g/dl Hct 30.4 L (42.0-52.0) % MCV 87.4 (80.0-100.0) fL MCH 28.7 (25.0-34.0) pg MCHC 32.9 (32.0-36.0) g/dL RDW Std Deviation 51.2 H (36.4-46.3) fL RDW Coeff of Minnie 16.1 H (11.5-14.5) % Plt Count 241 (130-400) K/uL MPV 10.7 (9.4-12.4) fL PT 12.0 (9.0-12.0) Seconds INR 1.1 (0.9-1.1) APTT 31 (21-31) Seconds PTT Ratio 1.2 Sodium 135 L (136-145) mmol/L Potassium 3.9 (3.5-5.1) mmol/L Chloride 98 (98-107) mmol/L Carbon Dioxide 26 (21-32) mmol/L Anion Gap 11 (3-11) BUN 18 (6-23) mg/dl Creatinine 1.45 H (0.6-1.4) mg/dl Est Cr Clr Drug Dosing 54.5 ml/min Est GFR ( Amer) 54.6 ml/min Est GFR (Non-Af Amer) 47.1 ml/min BUN/Creatinine Ratio 12.4 (10-20) Glucose 112 H (70-99(Fasting)) mg/dl POC Glucose 124 H (70-99) mg/dl Lactate (0.4-2.0) mmol/L Calcium 8.5 L (8.6-10.3) mg/dl Magnesium 1.7 (1.7-2.4) mg/dl Total Bilirubin 0.6 (0.2-1.0) mg/dl AST 13 (13-39) U/L ALT 11 (7-52) U/L Alkaline Phosphatase 52 (34-104) U/L Total Protein 6.8 (6.0-8.3) gm/dl Albumin 3.5 (3.4-5.0) gm/dl Globulin 3.3 (2.5-4.0) gm/dl Albumin/Globulin Ratio 1.1 (0.9-2) Vitamin B12 (180-914) pg/ml Folate (>5.38) ng/ml Random Cortisol mcg/dl Urine Color Yellow Urine Appearance Clear (Clear) Urine pH 5.5 (4.5-7.5) Ur Specific [place] 1.013 (1.000-1.030) Urine Protein Negative (Negative) Urine Glucose (UA) Negative (Negative) Urine Ketones Trace H (Negative) Urine Blood Negative (Negative) Urine Nitrite Negative (Negative) Urine Bilirubin Negative (Negative) Urine Urobilinogen Negative (Negative) Ur Leukocyte Esterase Negative (Negative) 12/10/23 12/11/23 Range/Units 23:06 02:38 WBC (4.8-10.8) K/ul RBC (4.70-6.10) M/uL Hgb (14.0-18.0) g/dl Hct (42.0-52.0) % MCV (80.0-100.0) fL MCH (25.0-34.0) pg MCHC (32.0-36.0) g/dL RDW Std Deviation (36.4-46.3) fL RDW Coeff of Minnie (11.5-14.5) % Plt Count (130-400) K/uL MPV (9.4-12.4) fL PT (9.0-12.0) Seconds INR (0.9-1.1) APTT (21-31) Seconds PTT Ratio Sodium (136-145) mmol/L Potassium (3.5-5.1) mmol/L Chloride (98-107) mmol/L Carbon Dioxide (21-32) mmol/L Anion Gap (3-11) BUN (6-23) mg/dl Creatinine (0.6-1.4) mg/dl Est Cr Clr Drug Dosing ml/min Est GFR ( Amer) ml/min Est GFR (Non-Af Amer) ml/min BUN/Creatinine Ratio (10-20) Glucose (70-99(Fasting)) mg/dl POC Glucose (70-99) mg/dl Lactate 1.7 (0.4-2.0) mmol/L Calcium (8.6-10.3) mg/dl Magnesium (1.7-2.4) mg/dl Total Bilirubin (0.2-1.0) mg/dl AST (13-39) U/L ALT (7-52) U/L Alkaline Phosphatase (34-104) U/L Total Protein (6.0-8.3) gm/dl Albumin (3.4-5.0) gm/dl Globulin (2.5-4.0) gm/dl Albumin/Globulin Ratio (0.9-2) Vitamin B12 228 (180-914) pg/ml Folate 8.01 (>5.38) ng/ml Random Cortisol 11.27 mcg/dl Urine Color Urine Appearance (Clear) Urine pH (4.5-7.5) Ur Specific [place] (1.000-1.030) Urine Protein (Negative) Urine Glucose (UA) (Negative) Urine Ketones (Negative) Urine Blood (Negative) Urine Nitrite (Negative) Urine Bilirubin (Negative) Urine Urobilinogen (Negative) Ur Leukocyte Esterase (Negative) Administered Medications Allopurinol (Allopurinol 100 Mg Tab) 200 mg PO [facility] Stop: 01/10/24 08:59 Last Admin: 12/12/23 08:56 Dose: 200 mg Documented By: Admin: 12/11/23 08:58 Dose: 200 mg Documented By: ADRIENNE Aripiprazole (Aripiprazole 1 Mg/Ml Oral Soln 150 Ml Btl) 2 mg PO [facility] Stop: 01/10/24 08:59 Last Admin: 12/12/23 08:56 Dose: 2 mg Documented By: Admin: 12/11/23 08:57 Dose: 2 mg Documented By: ADRIENNE Clopidogrel Bisulfate (Clopidogrel Bisulfate 75 Mg Tab) 75 mg PO [facility] Stop: 01/11/24 08:59 Last Admin: 12/12/23 08:56 Dose: 75 mg Documented By: AMANDO Famotidine (Famotidine 20 Mg Tab) 20 mg PO BID [facility] Stop: 01/10/24 08:59 Last Admin: 12/12/23 08:56 Dose: 20 mg Documented By: Admin: 12/11/23 20:47 Dose: 20 mg Documented By: Admin: 12/11/23 08:57 Dose: 20 mg Documented By: ADRIENNE Fluticasone/Vilanterol (Fluticasone/Vilanterol 100/25mcg 14 Puffs/Inhaler) 1 puffs INH DAILY [facility] Stop: 01/10/24 08:59 Last Admin: 12/12/23 08:56 Dose: 1 puffs Documented By: Admin: 12/11/23 08:59 Dose: 1 puffs Documented By: ADRIENNE Metoprolol Succinate (Metoprolol Succ 25mg Ext Rel Tab) 25 mg PO BID [facility] Stop: 01/10/24 08:59 Last Admin: 12/12/23 08:56 Dose: 25 mg Documented By: Admin: 12/11/23 20:47 Dose: 25 mg Documented By: Admin: 12/11/23 08:58 Dose: 25 mg Documented By: ADRIENNE Miscellaneous (*Desvenlafaxine*Order Awaiting Action) 1 each N/A QS [facility] Stop: 01/10/24 07:59 Last Admin: 12/12/23 07:52 Dose: Not Given Documented By: Admin: 12/12/23 00:08 Dose: Not Given Documented By: Admin: 12/11/23 15:46 Dose: Not Given Documented By: Admin: 12/11/23 07:09 Dose: Not Given Documented By: ADRIENNE Tamsulosin HCl (Tamsulosin Hcl 0.4 Mg Cap) 0.8 mg PO QPM [facility] Stop: 01/10/24 20:59 Last Admin: 12/11/23 20:47 Dose: 0.8 mg Documented By: GENARO Discontinued Medications Dexamethasone Sodium Phosphate (DexamethasonePf 10 Mg/Ml Vial) 4 mg IV NOW ONE Stop: 12/11/23 02:35 Last Admin: 12/11/23 02:55 Dose: 4 mg Documented By: CLEMENTE Sodium Chloride (Nss) 1,000 mls @ 999 mls/hr IV .Q1H1M [facility] Stop: 12/11/23 00:45 Last Infusion: 12/11/23 02:23 Dose: Infused Documented By: Admin: 12/11/23 01:20 Dose: 999 mls/hr Documented By: Infusion: 12/11/23 01:20 Dose: Infused Documented By: Admin: 12/11/23 00:49 Dose: 999 mls/hr Documented By: CLEMENTE Albumin Human (Albumin 25%) 25 gm in 100 mls @ 50 mls/hr IV ONE ONE Stop: 12/11/23 04:33 Last Infusion: 12/11/23 05:02 Dose: Infused Documented By: Admin: 12/11/23 02:57 Dose: 50 mls/hr Documented By: CLEMENTE Ioversol (Optiray 320 100ml) 92 ml IV ONCE ONE Stop: 12/11/23 00:06 Last Admin: 12/11/23 00:07 Dose: 92 ml Documented By: RAND Potassium Chloride (Potassium Chloride Crtab 20 Meq Tabcr) 40 meq PO NOW ONE Stop: 12/11/23 09:29 Last Admin: 12/11/23 10:06 Dose: 40 meq Documented By: ADRIENNE Imaging Data Radiologist's Impression: Head CT 12/10/23 22:45 Exam(s): CT HEAD Without Contrast EXAM: CT Head Without Intravenous Contrast CLINICAL HISTORY: Reason for exam: Confusion, falls. TECHNIQUE: Axial computed tomography images of the head/brain without intravenous contrast. CTDI is 35.51 mGy and DLP is 234.15 mGy-cm. Automated exposure control was utilized for the study. A dose lowering technique was utilized adhering to the principles of ALARA. Moderate to severe motion artifact COMPARISON: None. FINDINGS: Brain: No mass effect or acute infarct. No acute hemorrhage. Mild atrophy and chronic white matter disease. Ventricles: No hydrocephalus or midline shift. Bones/joints: No acute bony lesion. Soft tissues: No scalp hematoma. Visualized Sinuses: Clear. Mastoid air cells: No mastoid effusion. IMPRESSION: 1. Mild age-related findings. 2. No acute infarct, bleed, or acute intracranial abnormality. 3. Significant motion artifact limits evaluation. Electronically signed by: Sharri Loyd M.D. 12/11/23 00:47 AM Discharge Plan Visit Data Chief Complaint: Neuro Symptoms/Deficit Stated Complaint: HYPOTENTION, NUMBNESS IN HANDS ED Provider: Erin Sorto Discharge Problem: Acute hypotension, Acute alteration in mental status Patient Disposition: Admitted As Inpatient Discharge Instructions Interventions: ED Discharge Assessment Last Done: 12/11/23 14:58
--- NOTE | 2023-12-11 01:02 | CT Scan Report ---
Exam(s): CT ABDOMEN + PELVIS With Contrast IV Amt: 92 cc opti 320 EXAM: CT Abdomen and Pelvis With Intravenous Contrast CLINICAL HISTORY: Reason for exam: multiple falls, ecchymosis. TECHNIQUE: Axial computed tomography images of the abdomen and pelvis with intravenous contrast. CTDI is 28.14 mGy and DLP is 1471.68 mGy-cm. Automated exposure control was utilized for the study. A dose lowering technique was utilized adhering to the principles of ALARA. Moderate artifact from arms in the field of view, patient and breathing motion. CONTRAST: Patient received 92 cc opti 320 of IV contrast COMPARISON: CTA abdomen pelvis 12/17/18. FINDINGS: Lung bases: Clear. Moderate cardiomegaly. Liver: Mild fatty infiltration. Gallbladder and bile ducts: Cholecystectomy. No ductal dilation. Pancreas: No ductal dilation. Spleen: Unremarkable. Adrenals: Unremarkable. Kidneys and ureters: No pyelonephritis or hydronephrosis. Stomach and bowel: No obstruction. No diverticulosis or diverticulitis. Appendix: Normal. Intraperitoneal space: No free air or fluid. Bones/joints: No pelvic or vertebral fracture, with moderate motion artifact limiting evaluation. Soft tissues: Unremarkable. Vasculature: Endoluminal stent graft again noted transfixing mild diffuse abdominal aneurysm. No significant interval change. Lymph nodes: No enlarged lymph nodes. Bladder: Probable new or better seen/distended diverticulum of the bladder dome. No stones. Reproductive: Unremarkable as visualized. IMPRESSION: 1. New or better seen diverticulum of the bladder dome. 2. Stable endoluminal stent graft of the aorta. 3. Stable cardiomegaly, fatty liver, and cholecystectomy. 4. No definite acute abnormality or acute vertebral/pelvic fracture. 5. Moderate motion artifact limits evaluation. Electronically signed by: Sharri Loyd M.D. 12/11/23 01:01 AM
--- NOTE | 2023-12-11 01:10 | Ultrasound Report ---
Exam(s): US VENOUS LEFT UPPER EXTREMITY EXAM: US Duplex Left Upper Extremity Veins CLINICAL HISTORY: Reason for exam: DVT. TECHNIQUE: Real-time duplex ultrasound scan of the left upper extremity veins integrating B-mode two-dimensional vascular structure, Doppler spectral analysis, color flow Doppler imaging and compression. COMPARISON: No relevant prior studies available. FINDINGS: Deep veins: Unremarkable. No DVT in the internal jugular, subclavian, axillary, or brachial veins. The veins demonstrate normal color flow, are normally compressible, with normal phasic flow and/or augmentation response. Superficial veins: Unremarkable. No thrombus in the visualized basilic and cephalic veins. Soft tissues: Mild superficial edema. IMPRESSION: 1. Mild superficial edema. 2. No venous thrombosis. Electronically signed by: Sharri Loyd M.D. 12/11/23 01:09 AM
--- NOTE | 2023-12-11 02:47 | History & Physical Report ---
Date of Service December 11, 2023 Assessment & Plan (1) Hypotension: Plan: Multifactorial: Possible adrenal insufficiency, multiple steroid courses over the last 2 months for gout attack Blood loss, acute on chronic anemia, traumatic left forearm bruising secondary to fall from bed Multiple home medications contributory Encephalopathy Multifactorial low BP untreated BRIAN home medications such as baclofen and Vicodin possibly contributory chronic systolic heart failure secondary to ischemic cardiomyopathy (EF 35%, TTE 2023) status post ICD, fluid retention on exam hx CAD status post stent/ PVD status post surgery history LBBB A. fib on Eliquis COPD, lung status at baseline anxiety/mood disorder, stable Recurrent admissions/deconditioning ongoing tobacco abuse PCU Decadron 1 dose now Random cortisol level Cosyntropin stim test if hypotension recurs Appropriate to decrease maintenance beta-norm dose for now given relatively high doses for patient's BP since [facility] last week. Hold losartan and home diuretics for now Cardiology consult Re: Hypotension, cardiac medication management CT left forearm re: traumatic ecchymosis, worsening anemia Hold Eliquis for now until H&H stable Transfuse PRBC if hemoglobin less than 8 and or for symptomatic anemia Hold baclofen for now, utilize tramadol in place of Vicodin for pain not relieved by Tylenol Patient and counseled regarding increased risk for sedation by taking ba clofen and Vicodin together at the same time. outpatient follow-up evaluation with Sleep medicine PT OT eval once medically stable Nicotine patch as needed DVT prophylaxis. SCDs while Eliquis on hold given traumatic forearm ecchymosis Full code Patient requesting updates providers. Ms. Ganesh Gunter, contact #[phone]. Total critical time was 50 minutes. Text document was generated using [employer] voice recognition software. It may contain grammatical or spelling errors. Kindly contact undersigned for clarification of any documentation item in question. History of Present Illness Chief Complaint: Low BP, sleeping a lot as per Primary Care Provider: Buster Anguiano MD History obtained from patient, family, and records. Limited history from patient secondary to lethargy and hearing impairment. Medical history significant for chronic systolic heart failure secondary to ischemic cardiomyopathy (EF 35%, TTE 2023) status post ICD, CAD status post stent, trace TR, history LBBB, PVD status post surgery, A. fib on Eliquis, COPD, BRIAN (BiPAP intolerance as per records), chronic anemia (baseline hemoglobin of 11), anxiety/mood disorder, gout, sacroiliitis, skin cancer as per records, ongoing tobacco abuse Multiple admissions in the last 3 months. 10/03-10/04 [facility] confinement for COPD exacerbation, finger gout status post steroid Rx. 11/01-11/02 [facility] admission for gout attack. Patient discharged on steroid course. 12/04 -12/06 [facility] admission for hypotension, diarrhea, and weakness, and ARF. Serum creatinine on admission noted to be 2. Blood pressure and kidney function improved with IVF. Patient prednisone and Zaroxolyn discontinued on discharge. Patient discharged on new torsemide prescription. Patient intermittently sleepy and spacing out at home as per . Noted to be weak and pale by family. No witnessed seizures. Patient denies headache, chest pain, SOB, abdominal pain. Denies black/bloody stools. Chronic back pain for which patient takes baclofen. Fall from bed resulting in bruising on the left forearm. Patient taking leftover Vicodin and baclofen at home for left forearm pain as per . Patient combines medications without checking with the physicians as per . Intermittently sleepy and spacing out at home as per family. Patient still hypotensive at home as per home nurse account. Patient brought to ER for evaluation. SBP 70s upon arrival at the ER. 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 Allergies Allergy/AdvReac Type Severity Reaction Status Date / Time sacubitril [From Entresto] Allergy Severe THROAT Verified 12/10/23 23:28 SWELLING valsartan [From Entresto] Allergy Severe THROAT Verified 12/10/23 23:28 SWELLING atorvastatin [From Lipitor] AdvReac Intermediate Muscle Pain Verified 12/10/23 23:28 simvastatin AdvReac Intermediate Muscle Pain Verified 12/10/23 23:28 Home Medications Medication Instructions Recorded Confirmed Type clopidogrel 75 mg tablet (Plavix) 75 mg PO QAM 05/04/19 12/10/23 History tamsulosin 0.4 mg capsule (Flomax) 0.8 mg PO QPM 05/04/19 12/10/23 History apixaban 5 mg tablet (Eliquis) 5 mg PO BID 10/28/20 12/10/23 History losartan 25 mg tablet 25 mg PO QAM 10/28/20 12/10/23 History metoprolol succinate 100 mg 100 mg PO QAM 10/28/20 12/10/23 History tablet,extended release 24 hr potassium chloride 10 mEq 20 meq PO QAM 10/28/20 12/10/23 History tablet,extended release spironolactone 25 mg tablet 25 mg PO QAM 10/28/20 12/10/23 History famotidine 20 mg tablet 20 mg PO BID 12/06/20 12/10/23 History evolocumab 140 mg/mL subcutaneous 140 mg subcut UD 06/23/22 12/10/23 History pen injector (Matthew Tapia) fluticasone 250 mcg-salmeterol 50 1 inh inhalation Q12H 06/13/23 12/10/23 History mcg/dose blistr powdr for inhalation aripiprazole 2 mg tablet 2 mg PO QAM 10/03/23 12/10/23 History desvenlafaxine succinate 100 mg 100 mg PO QAM 10/03/23 12/10/23 History tablet,extended release 24 hr digoxin 125 mcg (0.125 mg) tablet 125 mcg PO QAM 10/03/23 12/10/23 History metoprolol succinate 50 mg 50 mg PO HS 10/03/23 12/10/23 History tablet,extended release 24 hr albuterol sulfate 2.5 mg/3 mL 2.5 mg inhalation Q4H PRN Wheezing 12/10/23 12/10/23 History (0.083 %) solution for nebulization allopurinol 100 mg tablet 200 mg PO QAM 12/10/23 12/10/23 History ascorbic acid (vitamin C) 1,000 mg 1 g PO QAM 12/10/23 12/10/23 History tablet (Vitamin C) baclofen 20 mg tablet 20 mg PO TID PRN MUSCLE SPASMS 12/10/23 12/10/23 History hydrocodone 7.5 mg-acetaminophen 1 tab PO Q6H PRN Pain 12/10/23 12/10/23 History 325 mg tablet naloxone 4 mg/actuation nasal spray 4 mg intranasal DIRECTED PRN 12/10/23 12/10/23 History Opioid Overdose omega-3 acid ethyl esters 1 gram 2 cap PO BID 12/10/23 12/10/23 History capsule torsemide 10 mg tablet 50 mg PO QAM 12/10/23 12/10/23 History Past Med/Surg History Medical History On anticoagulant therapy Tobacco use Biventricular ICD (implantable cardioverter-defibrillator) in place LBBB (left bundle branch block) Ischemic cardiomyopathy PVD (peripheral vascular disease) S/p AAA repair - FEVAR with bilateral renal stents 2017 History of skin cancer Restless leg syndrome Atrial fibrillation On Eliquis Myocardial Infarction 1997, taken to [place] Hypertension Hyperlipidemia Claustrophobia Sleep apnea BIPAP (STATES DOES NOT USE) Chronic systolic heart failure secondary to ischemic cardiomyopathy (EF 20% on 2020 CLAIRE)- s/p ICD placement 12/2020 EF 45-49% on 02/2023 ECHO NICM (nonischemic cardiomyopathy) Chronic back pain BPH (benign prostatic hyperplasia) COPD (chronic obstructive pulmonary disease) CAD (coronary artery disease) ACID PATROLLER of RCA 2011 PCI of OM2 and diagonal February 2019 Repeat cath October 2020- revealed patent stents with ACID PATROLLER of RCA with left to right collaterals Surgical History History of cardioversion 06/2022, [facility], f/u dr christine, s History of open reduction and internal fixation (ORIF) procedure RT LEG (TIB/FIB) Stephen's cyst of knee X 2 REMOVED History of esophagogastroduodenoscopy (EGD) History of colonoscopy H/O abdominal surgery INTESTINAL POLYP REMOVAL AT AGE 5 S/P AAA repair ~2019 AT [place] Hx of melanoma excision LEFT SHOULDER History of tooth extraction History of cataract surgery RT/LEFT History of cardiac cath MULTIPLE History of heart artery stent 1997 >2 STENTS PLACED TOTAL 4 STENTS (LAST 2 PLACED ~2019 AT [facility]) Family History Father Family history of diabetes mellitus Other No family history of adverse response to anesthesia Social History Smoking Status: Never smoker Tobacco Type: Cigarettes Cigarettes Per Day: 20 per day - advised; Second Hand Exposure: Yes (in the past); Do You Dip or Chew Tobacco: No; Hx Alcohol Use: Yes Alcohol type: hard liquor Alcohol Intake Frequency: Monthly or Less Hx Substance Use: No Preferred Language: Citizen Of [place] Communication Ability: Effective Drug Coordinator Required: No Beliefs That Will Affect Care: None marital status: Current Living Situation: Spouse Other Information That Helps Us Care for You: No Feels Safe at Home: Yes Safety Concerns: Feels Safe At This Time Assistive Devices: None Review of Systems Review of Systems: Could not be reliably obtained secondary to lethargy and hearing impairment. Physical Exam Physical Exam: GENERAL: Slightly uncomfortable, lethargic, restless, hard of hearing, morbidly obese SKIN: Pallor, warm HEENT: Alopecia, pale palpebral conjunctivae, no ptosis, dry buccal mucosa NECK : Supple, short neck, no tenderness CHEST : Decreased breath sounds, no tenderness HEART : Diminished S1-S2, RRR, no obvious murmurs ABDOMEN: Some distention, nontender RECTAL : Intact sphincter, dark stool (FOBT negative) EXTREMITIES : Bilateral l LE swelling, no LE tenderness, tender ecchymosis left forearm NEUROLOGIC : Lethargic, no facial asymmetry, hard of hearing, gait and stance not assessed Results & Data Results & Data Vital Signs (Past 12 Hours) Vital Signs Temp Pulse Pulse Resp BP BP Pulse Ox 12/11/23 02:00 84 18 130/81 94 12/11/23 00:00 81 18 124/91 95 12/10/23 22:52 84 18 106/51 L 98 12/10/23 22:27 86 12/10/23 22:01 37.1 C 95 H 18 77/45 L 96 O2 Del Method 12/11/23 02:00 Room Air 12/11/23 00:00 Room Air 12/10/23 22:52 Room Air 12/10/23 22:27 12/10/23 22:01 Room Air Laboratory Results Laboratory Results WBC 10.27 K/ul (4.8-10.8) 12/10/23 22:11 RBC 3.48 M/uL (4.70-6.10) L 12/10/23 22:11 Hgb 10.0 g/dl (14.0-18.0) L 12/10/23 22:11 Hct 30.4 % (42.0-52.0) L 12/10/23 22:11 MCV 87.4 fL (80.0-100.0) 12/10/23 22:11 MCH 28.7 pg (25.0-34.0) 12/10/23 22:11 MCHC 32.9 g/dL (32.0-36.0) 12/10/23 22:11 RDW Std Deviation 51.2 fL (36.4-46.3) H 12/10/23 22:11 RDW Coeff of Minnie 16.1 % (11.5-14.5) H 12/10/23 22:11 Plt Count 241 K/uL (130-400) 12/10/23 22:11 MPV 10.7 fL (9.4-12.4) 12/10/23 22:11 PT 12.0 Seconds (9.0-12.0) 12/10/23 22:11 INR 1.1 (0.9-1.1) 12/10/23 22:11 APTT 31 Seconds (21-31) 12/10/23 22:11 PTT Ratio 1.2 12/10/23 22:11 Sodium 135 mmol/L (136-145) L 12/10/23 22:11 Potassium 3.9 mmol/L (3.5-5.1) 12/10/23 22:11 Chloride 98 mmol/L (98-107) 12/10/23 22:11 Carbon Dioxide 26 mmol/L (21-32) 12/10/23 22:11 Anion Gap 11 (3-11) 12/10/23 22:11 BUN 18 mg/dl (6-23) 12/10/23 22:11 Creatinine 1.45 mg/dl (0.6-1.4) H 12/10/23 22:11 Est Cr Clr Drug Dosing 54.5 ml/min 12/10/23 22:11 Est GFR ( Amer) 54.6 ml/min 12/10/23 22:11 Est GFR (Non-Af Amer) 47.1 ml/min 12/10/23 22:11 BUN/Creatinine Ratio 12.4 (10-20) 12/10/23 22:11 Glucose 112 mg/dl (70-99(Fasting)) H 12/10/23 22:11 POC Glucose 124 mg/dl (70-99) H 12/10/23 22:23 Lactate 1.7 mmol/L (0.4-2.0) 12/10/23 23:06 Calcium 8.5 mg/dl (8.6-10.3) L 12/10/23 22:11 Magnesium 1.7 mg/dl (1.7-2.4) 12/10/23 22:11 Total Bilirubin 0.6 mg/dl (0.2-1.0) 12/10/23 22:11 AST 13 U/L (13-39) 12/10/23 22:11 ALT 11 U/L (7-52) 12/10/23 22:11 Alkaline Phosphatase 52 U/L (34-104) 12/10/23 22:11 Total Protein 6.8 gm/dl (6.0-8.3) 12/10/23 22:11 Albumin 3.5 gm/dl (3.4-5.0) 12/10/23 22:11 Globulin 3.3 gm/dl (2.5-4.0) 12/10/23 22:11 Albumin/Globulin Ratio 1.1 (0.9-2) 12/10/23 22:11 Urine Color Yellow 12/10/23 22:12 Urine Appearance Clear (Clear) 12/10/23 22:12 Urine pH 5.5 (4.5-7.5) 12/10/23 22:12 Ur Specific [place]arrison 1.013 (1.000-1.030) 12/10/23 22:12 Urine Protein Negative (Negative) 12/10/23 22:12 Urine Glucose (UA) Negative (Negative) 12/10/23 22:12 Urine Ketones Trace (Negative) H 12/10/23 22:12 Urine Blood Negative (Negative) 12/10/23 22:12 Urine Nitrite Negative (Negative) 12/10/23 22:12 Urine Bilirubin Negative (Negative) 12/10/23 22:12 Urine Urobilinogen Negative (Negative) 12/10/23 22:12 Ur Leukocyte Esterase Negative (Negative) 12/10/23 22:12 Impressions Abdomen/Pelvis CT 12/10/23 22:45 Exam(s): CT ABDOMEN + PELVIS With Contrast IV Amt: 92 cc opti 320 EXAM: CT Abdomen and Pelvis With Intravenous Contrast CLINICAL HISTORY: Reason for exam: multiple falls, ecchymosis. TECHNIQUE: Axial computed tomography images of the abdomen and pelvis with intravenous contrast. CTDI is 28.14 mGy and DLP is 1471.68 mGy-cm. Automated exposure control was utilized for the study. A dose lowering technique was utilized adhering to the principles of ALARA. Moderate artifact from arms in the field of view, patient and breathing motion. CONTRAST: Patient received 92 cc opti 320 of IV contrast COMPARISON: CTA abdomen pelvis 12/17/18. FINDINGS: Lung bases: Clear. Moderate cardiomegaly. Liver: Mild fatty infiltration. Gallbladder and bile ducts: Cholecystectomy. No ductal dilation. Pancreas: No ductal dilation. Spleen: Unremarkable. Adrenals: Unremarkable. Kidneys and ureters: No pyelonephritis or hydronephrosis. Stomach and bowel: No obstruction. No diverticulosis or diverticulitis. Appendix: Normal. Intraperitoneal space: No free air or fluid. Bones/joints: No pelvic or vertebral fracture, with moderate motion artifact limiting evaluation. Soft tissues: Unremarkable. Vasculature: Endoluminal stent graft again noted transfixing mild diffuse abdominal aneurysm. No significant interval change. Lymph nodes: No enlarged lymph nodes. Bladder: Probable new or better seen/distended diverticulum of the bladder dome. No stones. Reproductive: Unremarkable as visualized. IMPRESSION: 1. New or better seen diverticulum of the bladder dome. 2. Stable endoluminal stent graft of the aorta. 3. Stable cardiomegaly, fatty liver, and cholecystectomy. 4. No definite acute abnormality or acute vertebral/pelvic fracture. 5. Moderate motion artifact limits evaluation. Electronically signed by: Sharri Loyd M.D. 12/11/23 01:01 AM Extremity Venous Study 12/10/23 22:45 Exam(s): US VENOUS LEFT UPPER EXTREMITY EXAM: US Duplex Left Upper Extremity Veins CLINICAL HISTORY: Reason for exam: DVT. TECHNIQUE: Real-time duplex ultrasound scan of the left upper extremity veins integrating B-mode two-dimensional vascular structure, Doppler spectral analysis, color flow Doppler imaging and compression. COMPARISON: No relevant prior studies available. FINDINGS: Deep veins: Unremarkable. No DVT in the internal jugular, subclavian, axillary, or brachial veins. The veins demonstrate normal color flow, are normally compressible, with normal phasic flow and/or augmentation response. Superficial veins: Unremarkable. No thrombus in the visualized basilic and cephalic veins. Soft tissues: Mild superficial edema. IMPRESSION: 1. Mild superficial edema. 2. No venous thrombosis. Electronically signed by: Sharri Loyd M.D. 12/11/23 01:[address] 12/10/23 22:45 Exam(s): CT HEAD Without Contrast EXAM: CT Head Without Intravenous Contrast CLINICAL HISTORY: Reason for exam: Confusion, falls. TECHNIQUE: Axial computed tomography images of the head/brain without intravenous contrast. CTDI is 35.51 mGy and DLP is 234.15 mGy-cm. Automated exposure control was utilized for the study. A dose lowering technique was utilized adhering to the principles of ALARA. Moderate to severe motion artifact COMPARISON: None. FINDINGS: Brain: No mass effect or acute infarct. No acute hemorrhage. Mild atrophy and chronic white matter disease. Ventricles: No hydrocephalus or midline shift. Bones/joints: No acute bony lesion. Soft tissues: No scalp hematoma. Visualized Sinuses: Clear. Mastoid air cells: No mastoid effusion. IMPRESSION: 1. Mild age-related findings. 2. No acute infarct, bleed, or acute intracranial abnormality. 3. Significant motion artifact limits evaluation. Electronically signed by: Sharri Loyd M.D. 12/11/23 00:47 AM Diagnostic Findings Chest x-ray as per my interpretation cardiomegaly, minimal congestion EKG as per my interpretation : Rate 90, paced rhythm Code Status & VTE Plan VTE Prophylaxis Plan VTE Prophylaxis will be ordered: Yes
[2023-12-11] MEDS: dexAMETHasone**PF** 10 MG/ML VIAL IV ONE (02:55)
[2023-12-11] MEDS: ALBUMIN 25% 25 GM/100 ML VIAL IV ONE (02:57)
[2023-12-11 03:05] LABS: Base Excess VBG 2.9 mEq/L; HCO3 VBG 28 mmol/L; Oxygen Saturation VBG 92.3 %; PCO2 VBG 43 mmHg (38-50); PO2 VBG 61 mmHg; pH VBG 7.42 (7.36-7.41)
[2023-12-11 03:24] LABS: Cortisol Random 11.27 mcg/dl
[2023-12-11] MEDS ORDERED: PROMETHAZINE HCL 6.25 MG in SODIUM CHLORIDE 0.9% 50 ML IV PRN (03:25)
[2023-12-11] MEDS ORDERED: traMADol HCL 50 MG TABLET PO PRN (03:25)
[2023-12-11] MEDS ORDERED: ACETAMINOPHEN 325 MG TAB PO PRN (03:25)
[2023-12-11 03:26] LABS: BUN Creatinine Ratio 14.4 (10-20); Creatinine Clr Calc Pharmacy 66.9 ml/min; Est GFR (Non-African American) 60.4 ml/min; Potassium 3.5 mmol/L (3.5-5.1)
[2023-12-11 03:30] LABS: Basophils # (auto) 0.01 K/uL (0.00-0.20); Basophils % (auto) 0.1 %; Eosinophils # (auto) 0.07 K/uL (0.00-0.50); Eosinophils % (auto) 0.9 %; Hematocrit (blood only) 28.1 % (42.0-52.0); Hemoglobin 9.2 g/dl (14.0-18.0); Immature Granulocytes # (auto) 0.04 K/uL (0.01-0.20); Immature Granulocytes % (auto) 0.5 %; Lymphocytes # (auto) 1.17 K/uL (1.20-3.40); Lymphocytes % (auto) 14.8 %; Mean Corpuscular Hemoglobin 28.8 pg (25.0-34.0); Mean Corpuscular Hgb Conc 32.7 g/dL (32.0-36.0); Mean Corpuscular Volume 88.1 fL (80.0-100.0); Mean Platelet Volume 10.7 fL (9.4-12.4); Monocytes # (auto) 0.73 K/uL (0.11-0.59); Monocytes % (auto) 9.3 %; Neutrophils # (auto) 5.86 K/uL (1.40-6.50); Neutrophils % (auto) 74.4 %; Platelet Count 198 K/uL (130-400); RDW Coefficient of Variation 16.2 % (11.5-14.5); RDW Standard Deviation 52.1 fL (36.4-46.3); Red Blood Count 3.19 M/uL (4.70-6.10); White Blood Count 7.88 K/ul (4.8-10.8)
[2023-12-11 03:41] LABS: Thyroid Stimulating Hormone 0.736 uIu/ml (0.300-4.500)
[2023-12-11 03:47] LABS: Ferritin 995.5 ng/ml (8-388)
[2023-12-11 06:06] LABS: Folate (Folic Acid),Ser orPlas 8.01 ng/ml (>5.38)
--- NOTE | 2023-12-11 06:47 | CT Scan Report ---
Exam(s): CT EXTREMITY LEFT UPPER Without Contrast EXAM: CT Left Upper Extremity Without Intravenous Contrast CLINICAL HISTORY: Reason for exam: pain/swelling, eliquis. TECHNIQUE: Axial computed tomography images of the left upper extremity without intravenous contrast. Automated exposure control was utilized for the study. A dose lowering technique was utilized adhering to the principles of ALARA. COMPARISON: No relevant prior studies available. FINDINGS: Limitations: The study is limited due to motion artifact. Bones/joints: There is elbow joint effusion. No acute fracture. No dislocation. Soft tissues: Diffuse subcutaneous soft tissue edema demonstrated throughout the arm greatest along the dorsal aspect of the proximal forearm and elbow. There is no formed fluid collection. Vasculature: Some minor vascular calcifications are present. IMPRESSION: Moderate edema or possible nonformed blood product throughout the subcutaneous structures of the forearm. Joint effusion as well. Limited due to motion artifact. Electronically signed by: Magdi Orellana MD 12/11/23 06:46 AM
--- NOTE | 2023-12-11 06:58 | XRay Report ---
XR elbow LT 2V CLINICAL HISTORY: fall, trauma COMPARISON STUDY: None. FINDINGS: Soft tissue swelling within the left elbow. There is a left elbow effusion. No definite elb ow fractures. No dislocation. IMPRESSION: Left elbow effusion without definite fracture. This can be seen in the setting of an occ ult fracture. 2 week radiograph follow-up recommended for further evaluation. ACT 112: Negative or not required by law. Electronically signed by: Ethan Rodriguez M.D. 12/11/2023 6:57 AM
[2023-12-11] MEDS: [UNRECOGNIZED DRUG - OTHER] SCH (07:09)
--- NOTE | 2023-12-11 08:49 | Cardiology Consultation ---
Date of Consultation December 11, 2023 Assessment & Plan (1) Hypotension: (2) Persistent atrial fibrillation: (3) Tobacco abuse disorder: (4) Chronic systolic heart failure: (5) Ischemic cardiomyopathy with implantable cardioverter-defibrillator (ICD): Plan Complex 73-year-old male with multiple recent hospitalizations, presenting to [facility] on December 10, 2023 with weakness and intermittent confusion appearing to be multifactorial in etiology (medications, hypovolemia, ? underlying sepsis). Blood pressures have improved following initial fluid resuscitation. Patient maintaining oxygen saturation on 2 L/min via nasal cannula. Heart rates controlled on telemetry. Hypotension. Improved following fluid resuscitation. Volume status appears normovolemic to mildly hypovolemic. Continue to hold diuretics (torsemide, spironolactone). Hold losartan. Persistent atrial fibrillation. Rate controlled overnight. Utilize lower dose metoprolol succinate, 25 mg twice per day for now. No digoxin. Resume Eliquis anticoagulation when able from an anemia/bleeding standpoint. Maintain telemetry. Status post biventricular pacemaker defibrillator. Interrogate device (Medtronic) Ischemic cardiomyopathy. Catheterization in October 2023 with her chronic total occlusion of the RCA, patent stents, luminal irregularities. Resting echocardiography at [place] on December 06, 2023 was limited in quality, revealing moderately reduced LVEF, 35 to 39%, with mildly dilated RV with normal RV function. Resume clopidogrel when able. Recommend reducing/discontinuing medications with sedating effects (baclofen, Vicodin, Abilify, Pristiq) Supervising Physician Co-Signing Physician Notes Patient was seen and personally examined. Chart inpatient and outpatient reviewed. Full assessment and plan as outlined by advanced provider above. Agree and endorse with plans and recommendations At time of examination patient somnolent, confused. There are no signs of acute cardiac deterioration. No evidence of congestive heart failure or ischemia. No evidence of arrhythmia although pacemaker will be interrogated. Baseline atrial fibrillation present Medical evaluation as ongoing History of Present Illness Reason for Consultation: "Hypotension, med mx" Requesting Physician: Dr. San Attending Physician: Dr. Georgia Ambriz MD History of Present Illness 73-year-old female seen at the request of Dr. San. Reasons for consultation include "hypotension, med mx." Information obtained via chart review. Patient is not a reliable source of information at this time (confusion). Patient was brought to the hospital by his -fatigue, spacing out, weakness, pallor. Reported fall from bed with resultant left forearm ecchymosis. Patient reportedly took Vicodin and baclofen for the left forearm pain in addition to multiple other medications. Patient also prescribed Pristiq and Abilify Initial blood pressure at presentation to the [facility] was 77/45, receiving 1 L fluid resuscitation. White blood cell count was normal. Blood cultures obtained, pending. H&H were 10.0 and 30.4. Sodium was 135. Creatinine was 1.45. Glucose was 112. Patient recently hospitalized at [facility] earlier this month with hypotension, acute renal dysfunction, hypokalemia, and hyponatremia. Patient was hypovolemic following 2-day bout of significant stomach flu/massive diarrhea per report. Diuretics decreased on discharge with torsemide decreased to 50 mg/day, metolazone discontinued Patient denies chest pain, palpitations, unusual shortness of breath, orthopnea, PND, peripheral edema, or syncope. Problem list: Systolic congestive heart failure, ischemic cardiomyopathy, LVEF previously 20% Left bundle branch block status post Medtronic biventricular pacemaker defibrillator implantation on December 08, 2020 Status post February 2019 catheterization, PCI of the obtuse marginal branch and first diagonal branch October 08, 2023 [place] cardiac [place] [facility] [place] a chronic total occlusion of the RCA with left to right collaterals, patent prior stents, luminal irregularities. Past paroxysmal atrial fibrillation status post multiple cardioversions, currently with persistent atrial fibrillation Abdominal aortic aneurysm status post FEVAR in 2018 Severe COPD with ongoing tobacco use Untreated obstructive sleep apnea Hypertension Dyslipidemia BPH Gout Chronic back pain Family History: Father in his 60's with throat cancer. Social History: Every day smoker, 1 pack/day x 50+ years Allergies Allergy/AdvReac Type Severity Reaction Status Date / Time sacubitril [From Entresto] Allergy Severe THROAT Verified 12/10/23 23:28 SWELLING valsartan [From Entresto] Allergy Severe THROAT Verified 12/10/23 23:28 SWELLING atorvastatin [From Lipitor] AdvReac Intermediate Muscle Pain Verified 12/10/23 23:28 simvastatin AdvReac Intermediate Muscle Pain Verified 12/10/23 23:28 Home Medications Medication Instructions Recorded Confirmed Type clopidogrel 75 mg tablet (Plavix) 75 mg PO QAM 05/04/19 12/10/23 History tamsulosin 0.4 mg capsule (Flomax) 0.8 mg PO QPM 05/04/19 12/10/23 History apixaban 5 mg tablet (Eliquis) 5 mg PO BID 10/28/20 12/10/23 History losartan 25 mg tablet 25 mg PO QAM 10/28/20 12/10/23 History metoprolol succinate 100 mg 100 mg PO QAM 10/28/20 12/10/23 History tablet,extended release 24 hr potassium chloride 10 mEq 20 meq PO QAM 10/28/20 12/10/23 History tablet,extended release spironolactone 25 mg tablet 25 mg PO QAM 10/28/20 12/10/23 History famotidine 20 mg tablet 20 mg PO BID 12/06/20 12/10/23 History evolocumab 140 mg/mL subcutaneous 140 mg subcut UD 06/23/22 12/10/23 History pen injector (Matthew Tapia) fluticasone 250 mcg-salmeterol 50 1 inh inhalation Q12H 06/13/23 12/10/23 History mcg/dose blistr powdr for inhalation aripiprazole 2 mg tablet 2 mg PO QAM 10/03/23 12/10/23 History desvenlafaxine succinate 100 mg 100 mg PO QAM 10/03/23 12/10/23 History tablet,extended release 24 hr digoxin 125 mcg (0.125 mg) tablet 125 mcg PO QAM 10/03/23 12/10/23 History metoprolol succinate 50 mg 50 mg PO HS 10/03/23 12/10/23 History tablet,extended release 24 hr albuterol sulfate 2.5 mg/3 mL 2.5 mg inhalation Q4H PRN Wheezing 12/10/23 12/10/23 History (0.083 %) solution for nebulization allopurinol 100 mg tablet 200 mg PO QAM 12/10/23 12/10/23 History ascorbic acid (vitamin C) 1,000 mg 1 g PO QAM 12/10/23 12/10/23 History tablet (Vitamin C) baclofen 20 mg tablet 20 mg PO TID PRN MUSCLE SPASMS 12/10/23 12/10/23 History hydrocodone 7.5 mg-acetaminophen 1 tab PO Q6H PRN Pain 12/10/23 12/10/23 History 325 mg tablet naloxone 4 mg/actuation nasal spray 4 mg intranasal DIRECTED PRN 12/10/23 12/10/23 History Opioid Overdose omega-3 acid ethyl esters 1 gram 2 cap PO BID 12/10/23 12/10/23 History capsule torsemide 10 mg tablet 50 mg PO QAM 12/10/23 12/10/23 History Patient History Medical History On anticoagulant therapy Tobacco use Biventricular ICD (implantable cardioverter-defibrillator) in place LBBB (left bundle branch block) Ischemic cardiomyopathy PVD (peripheral vascular disease) S/p AAA repair - FEVAR with bilateral renal stents 2017 History of skin cancer Restless leg syndrome Atrial fibrillation On Eliquis Myocardial Infarction 1997, taken to [place] Hypertension Hyperlipidemia Claustrophobia Sleep apnea BIPAP (STATES DOES NOT USE) Chronic systolic heart failure secondary to ischemic cardiomyopathy (EF 20% on 2020 CLAIRE)- s/p ICD placement 12/2020 EF 45-49% on 02/2023 ECHO NICM (nonischemic cardiomyopathy) Chronic back pain BPH (benign prostatic hyperplasia) COPD (chronic obstructive pulmonary disease) CAD (coronary artery disease) DIE BAKER of RCA 2011 PCI of OM2 and diagonal February 2019 Repeat cath October 2020- revealed patent stents with DIE BAKER of RCA with left to right collaterals Surgical History History of cardioversion 06/2022, [facility], f/u dr christine, s History of open reduction and internal fixation (ORIF) procedure RT LEG (TIB/FIB) Stephen's cyst of knee X 2 REMOVED History of esophagogastroduodenoscopy (EGD) History of colonoscopy H/O abdominal surgery INTESTINAL POLYP REMOVAL AT AGE 5 S/P AAA repair ~2019 AT [place] Hx of melanoma excision LEFT SHOULDER History of tooth extraction History of cataract surgery RT/LEFT History of cardiac cath MULTIPLE History of heart artery stent 1997 >2 STENTS PLACED TOTAL 4 STENTS (LAST 2 PLACED ~2019 AT [facility]) Family History Father Family history of diabetes mellitus Other No family history of adverse response to anesthesia Social History Smoking Status: Never smoker Tobacco Type: Cigarettes Cigarettes Per Day: 20 per day - advised; Second Hand Exposure: Yes (in the past); Do You Dip or Chew Tobacco: No; Hx Alcohol Use: Yes Alcohol type: hard liquor Alcohol Intake Frequency: Monthly or Less Hx Substance Use: No Preferred Language: Serbian Communication Ability: Effective Power Grader Operator Required: No Beliefs That Will Affect Care: None marital status: Current Living Situation: Spouse Other Information That Helps Us Care for You: No Feels Safe at Home: Yes Safety Concerns: Feels Safe At This Time Assistive Devices: None Review of Systems Review of Systems: Complete review of systems: Unable to be obtained due to patient's current status, confusion Physical Exam Physical Exam: General: Alert to person but not to place ("I'm in [place]) or time. HENT: Normocephalic. Atraumatic. Eyes: PER. Conjunctiva pink, sclera pale. Neck: THick. No JVD. No HJR. Heart: Irregularly irregular at 80 bpm. No murmur appreciated. No rub. Lungs: Diminished. Clear to auscultation. No wheeze. Abdomen: +BS. Soft. Nontender. No masses or organomegaly. Extremities: No significant lower extremity edema. Neuro: Confused. No focal deficits. Pulses: posterior tibial=0-1/4. Results & Data Vital Signs (Past 12 Hours) Vital Signs Temp Pulse Pulse Resp BP BP Pulse Ox 12/11/23 07:36 77 12 117/66 93 12/11/23 07:07 81 12/11/23 06:03 78 20 119/73 92 12/11/23 03:41 85 12/11/23 03:34 12/11/23 03:34 85 20 93/59 L 95 12/11/23 03:06 81 12/11/23 02:00 84 18 130/81 94 12/11/23 00:00 81 18 124/91 95 12/10/23 22:52 84 18 106/51 L 98 12/10/23 22:27 86 12/10/23 22:01 37.1 C 95 H 18 77/45 L 96 Pulse Ox O2 Del Method O2 Del Method O2 Flow Rate 12/11/23 07:36 Nasal Cannula 2 12/11/23 07:07 12/11/23 06:03 Nasal Cannula 2 12/11/23 03:41 12/11/23 03:34 95 Room Air 12/11/23 03:34 Room Air 12/11/23 03:06 12/11/23 02:00 Room Air 12/11/23 00:00 Room Air 12/10/23 22:52 Room Air 12/10/23 22:27 12/10/23 22:01 Room Air Laboratory Results Cardiac Enzymes 12/10/23 Range/Units 22:11 AST 13 (13-39) U/L Coagulation 12/10/23 Range/Units 22:11 PT 12.0 (9.0-12.0) Seconds APTT 31 (21-31) Seconds CBC 12/10/23 12/11/23 Range/Units 22:11 02:58 WBC 10.27 7.88 (4.8-10.8) K/ul RBC 3.48 L 3.19 L (4.70-6.10) M/uL Hgb 10.0 L 9.2 L (14.0-18.0) g/dl Hct 30.4 L 28.1 L (42.0-52.0) % Plt Count 241 198 (130-400) K/uL Neut # (Auto) 5.86 (1.40-6.50) K/uL Lymph # (Auto) 1.17 L (1.20-3.40) K/uL [place] # (Auto) 0.73 H (0.11-0.59) K/uL Eos # (Auto) 0.07 (0.00-0.50) K/uL Baso # (Auto) 0.01 (0.00-0.20) K/uL Comprehensive Metabolic Panel 12/10/23 12/11/23 Range/Units 22:11 02:58 Sodium 135 L 137 (136-145) mmol/L Potassium 3.9 3.5 (3.5-5.1) mmol/L Chloride 98 101 (98-107) mmol/L Carbon Dioxide 26 27 (21-32) mmol/L BUN 18 17 (6-23) mg/dl Creatinine 1.45 H 1.18 (0.6-1.4) mg/dl Glucose 112 H 117 H (70-99(Fasting)) mg/dl Calcium 8.5 L 8.0 L (8.6-10.3) mg/dl AST 13 (13-39) U/L ALT 11 (7-52) U/L Alkaline Phosphatase 52 (34-104) U/L Total Protein 6.8 (6.0-8.3) gm/dl Albumin 3.5 (3.4-5.0) gm/dl Intake and Output 12/10/23 12/11/23 12/11/23 22:59 06:59 14:59 Intake Total 2099 Balance 2099 Intake: IV 2099 Albumin 25% 25 gm In 100 ml @ 100 / 100 50 mls/hr IV ONE ONE Rx#: [id number] Sodium Chloride 0.9% 1,000 ml @ 1999 / 1999 999 mls/hr IV .Q1H1M [facility] Rx#: [id number] Oral 0 / 0 Other: Weight 116.3 kg 116.3 kg Weight Measurement Method Chair Scale Built in [facility] Diagnostic Findings EKG on presentation revealed a ventricular paced rhythm with underlying atrial fibrillation, ventricular rate 91 bpm Telemetry: Ventricular paced, underlying atrial fibrillation with a controlled ventricular response
[2023-12-11] MEDS: FAMOTIDINE 20 MG TAB PO SCH (08:57)
[2023-12-11] MEDS: ARIPIprazole 1 MG/ML ORAL SOLN 150 ML BTL PO SCH (08:57)
[2023-12-11] MEDS: allopurinoL 100 MG TAB PO SCH (08:58)
[2023-12-11] MEDS: METOPROLOL SUCC 25MG EXT REL TAB PO SCH (08:58)
[2023-12-11] MEDS: FLUTICASONE/VILANTEROL 100/25MCG 14 PUFFS/INHALER INH SCH (08:59)
[2023-12-11] MEDS ORDERED: METOPROLOL SUCC 25MG EXT REL TAB PO SCH (09:00)
--- NOTE | 2023-12-11 09:08 | XRay Report ---
XR chest 1V portable CLINICAL HISTORY: stroke alert TECHNIQUE: Single frontal radiograph of the chest was obtained. Comparison: Comparison is made to chest radiograph 10/03/2023 FINDINGS: Pacemaker defibrillator is seen. Cardiomegaly is noted. The aortic arch is calcified. The lungs are c lear. No evidence of pleural effusion or pneumothorax. IMPRESSION: No acute chest disease. Cardiomegaly is noted. ACT 112: Negative or not required by law. Electronically signed by: Ruben Subramanian M.D. 12/11/2023 9:07 AM
[2023-12-11] MEDS: POTASSIUM CHLORIDE CRTAB 20 MEQ TABCR PO ONE (10:06)
--- NOTE | 2023-12-11 13:30 | Communication Note ---
Date of Service: December 11, 2023 Patient was seen and examined at bedside. 73-year-old male with PMH of CAD status post stent, ischemic cardiomyopathy[EF 35% TTE 2023] status post ICD, chronic systolic congestive heart failure, persistent atrial fibrillation on Eliquis, LBBB, HLD, COPD, ongoing tobacco use, obesity, BRIAN [BiPAP intolerance as per records], PAD status post surgery, anxiety/mood disorder, gout, sacroiliitis, skin cancer presented to the ED 12/10 with complaint of intermittently sleepy and is spacing out at home as per patient's at presentation. Noted to be weak and pale by the family. No witnessed seizure. No bloody or black stools noted. Had fall from the bed resulting in bruising on the left forearm. Patient noted to be hypotensive at home. SBP in 70s upon arrival at the ED. He is being managed for the following: Admitting labs: WBC WNL, hemoglobin 10.0 [baseline around 11], VBG fairly WNL, creatinine 1.45 [baseline around 1], iron profile suggestive of iron deficiency with low normal vitamin B12 and folate levels. UA negative for infection. Admitting imagings: CXR with no acute findings. CTAP: Diverticulum of the bladder dome. No acute findings. Left elbow x-ray:Left elbow effusion without definite fracture. This can be seen in the setting of an occult fracture. 2 week radiograph follow-up recommended for further evaluation. US venous left upper extremity : No DVT. Mild superficial edema. CT head: No acute finding. CT LUE: Moderate edema or possible nonformed blood product throughout the subcutaneous structures of the forearm. Joint effusion as well. Limited due to motion artifact. Likely metabolic encephalopathy Multifactorial, rule out adrenal insufficiency given multiple steroid courses in the recent past for gout flares; Hypotension; multiple home medications. Patient alert and oriented x 3 at bedside exam, seems to have improved Random cortisol level WNL, TSH WNL, ammonia level WNL, no source of infection. Follow admitting blood culture. Continue to manage underlying cause as able. Acute on chronic anemia Traumatic left forearm bruising secondary to fall from bed Baseline hemoglobin around 11, admitting hemoglobin of 10, hemoglobin dropped to 9.2 today. Imagings of the left upper extremity, see above. Repeat imaging in 2 weeks. Monitor H&H, pain management, PT/OT when able. Eliquis on hold until H&H deemed stable, likely resume tomorrow after H&H. Transfuse PRBC if hemoglobin less than 8 and or for symptomatic anemia Hold baclofen for now, utilize tramadol in place of Vicodin for pain not re lieved by Tylenol Patient and counseled regarding increased risk for sedation by taking baclofen and Vicodin together at the same time. Hypotension: patient noted to be encephalopathic and hypotensive at presentation. Various cardiac medications are on hold, cardiology to help with medication management. Losartan & Home diuretics on hold. Random cortisol level WNL,No source of infection so far. Continue to monitor off antibiotic. Home medications such as baclofen and Vicodin possibly contributory. BP improving. Other chronic medical conditions: Continue with/resume home meds as and when able. chronic systolic heart failure secondary to ischemic cardiomyopathy (EF 35%, TTE 2023) status post ICD, fluid retention on exam hx CAD status post stent/ PVD status post surgery history LBBB A. fib on Eliquis COPD, lung status at baseline anxiety/mood disorder, stable Recurrent admissions/deconditioning ongoing tobacco abuse, Tobacco cessation encouraged. Nicotine patch. BRIAN: outpatient follow-up evaluation with Sleep medicine DVT prophylaxis: SCDs while Eliquis on hold given traumatic forearm ecchymosis Full code Disposition: PT/OT, CM to assist with DC planning. Patient Ms. Ganesh Gunter, contact #[phone]. Text document was generated using [email or web address] voice recognition software. It may contain grammatical or spelling errors. Kindly contact undersigned for clarification of any documentation item in question.
--- OUTSIDE RECORDS SUMMARY | 2023-12-11 18:38 | External Medical Summary | Summary of Care ---
Author Name Unknown Organization [facility] Address [address] [place] [address] Phone [phone] Care Team Providers Care Apron Worker Name Role Phone Buster Jessica MD Primary Care P [facility] Reason for Visit * Reason Onset Date Comments [facility]: Maintenance 12/10/2023 Encounter Details Date Type Department Care Team (Late st Contact Info) Description 12/10/2023 Telephone [facility], [facility] [address] [place], [place] [phone] [facility], Nurse [facility] [address] [place] [address] [facility]: Maintenance Allergies Active Allergy Reactions Criticality Noted Date Comments Atorvastatin Muscle pain,Unknown 01/18/2015 Medication intolerance, not an allergy Sacubitril-Valsartan Other (Please comment) 09/17/2020 Throat swelled Sacubitril High 07/20/2023 Other Reaction(s): THROAT SWELLING Simvastatin Low 06/23/2022 Other reaction(s): MUSCLE ACHES Valsartan High 07/20/2023 Other Reaction(s): THROAT SWELLING documented as of this encounter (statuses as of 12/10/2023) Medications Medication Sig Dispensed Refills Start Date End Date Status Vitamin C 1000 MG Oral Tablet Take 1 Tablet by mouth in the morning. 0 Active Metoprolol Succinate ER 100 MG Oral Tablet Extended Release 24 Hour (toPROL XL) TAKE ONE TABLET BY MOUTH ONCE DAILY 90 Tablet 3 03/08/2023 Active Clopidogrel Bisulfate 75 MG Oral Tablet (pLAVix)Indications: PAD (peripheral artery disease) (HCC),Coronary artery disease involving wrangell coronary artery of wrangell heart without angina pectoris TAKE ONE TABLET BY MOUTH ONCE DAILY 90 Tablet 3 03/13/2023 Active Famotidine 20 MG Oral Tablet (Pepcid) TAKE 1 TABLET BY MOUTH TWICE DAILY (MORNING AND AT BEDTIME) 180 Tablet 3 04/30/2023 Active Spironolactone 25 MG Oral Tablet (Aldactone)Indicatio ns:Coronary artery disease involving wrangell coronary artery of wrangell heart without angina pectoris,Heart failure, systolic, due to CAD ([facility]),Chronic ischemic heart disease,HTN, goal below 140/90 TAKE ONE TABLET BY MOUTH ONCE DAILY 90 Tablet 3 05/14/2023 Active Losartan Potassium 25 MG Oral Tablet (Cozaar)Indications: PAD (peripheral artery disease) ([facility]),Coronary artery disease involving wrangell coronary artery of wrangell heart without angina pectoris TAKE ONE TABLET BY MOUTH ONCE DAILY 90 Tablet 3 06/04/2023 Active Baclofen 20 MG Oral TabletIndications:Ch ronic bilateral low back pain without sciatica Take 1 Tablet by mouth 3 times a day as needed for Muscle spasms. 90 Tablet 5 06/06/2023 Active Repatha SureClick 140 MG/ML Subcutaneous Solution Auto-injector (evolocumab)Indicati ons:Obstructive sleep apnea,Heart failure, systolic, due to CAD (HCC),Dyslipidemia, goal LDL below 70,Chronic ischemic heart disease,Tobacco use disorder,Coronary artery disease involving wrangell coronary artery of wrangell heart without angina pectoris Inject 140 mg (1 pen) under the skin every 14 days. 6 mL 3 07/02/2023 Active Metoprolol Succinate ER 50 MG Oral Tablet Extended Release 24 Hour (Toprol XL)Indications:Persi stent atrial fibrillation (HCC),Acute on chronic systolic (congestive) heart failure (HCC) One tablet by mouth daily at bedtime, this is in addition to the previous prescription for 100 milligrams daily in the morning. 90 Tablet 3 08/23/2023 Active Digoxin 125 MCG Oral Tablet (Lanoxin) Take 1 Tablet by mouth in the morning. 90 Tablet 3 08/23/2023 Active ARIPiprazole 2 MG Oral Tablet (Abilify)Indications :Moderate episode of recurrent major depressive disorder (HCC) Take 1 Tablet by mouth in the morning. 30 Tablet 1 09/06/2023 Active Naloxone HCl 4 MG/0.1ML Nasal Liquid (Narcan Nasal) Administer 1 spray into 1 nostril for suspected opioid overdose. Seek immediate medical attention. [email or web address] 1 Each 3 09/15/2023 Active Desvenlafaxine Succinate ER 100 MG Oral Tablet Extended Release 24 Hour (Pristiq)Indications :Moderate episode of recurrent major depressive disorder (HCC) Take 1 Tablet by mouth in the morning. 30 Tablet 11 09/21/2023 Active Fluticasone-Salmeter ol 250-50 MCG/ACT Inhalation Aerosol Powder Breath Activated (Wixela Inhub)Indications:CO PD, group D, by GOLD 2017 classification ([facility]) Inhale 1 Puff by mouth in the morning and 1 Puff before bedtime. 180 Each 12 10/29/2023 Active Albuterol Sulfate (2.5 MG/3ML) 0.083% Inhalation Nebulization Solution (Proventil)Indicatio ns:COPD, group D, by GOLD 2017 classification ([facility]) Inhale 1 Vial via nebulizer every 4 hours as needed for Wheezing. 75 mL 1 10/29/2023 Active Eliquis 5 MG Oral Tablet (Apixaban)Indication s:Persistent atrial fibrillation (HCC) TAKE 1 TABLET BY MOUTH TWICE DAILY 60 Tablet 11 10/30/2023 Active Tamsulosin HCl 0.4 MG Oral Capsule (Flomax)Indications: Benign prostatic hyperplasia (BPH) with post-void dribbling Take 2 Capsules by mouth every evening. 180 Capsule 1 10/31/2023 Active Allopurinol 100 MG Oral Tablet (Zyloprim)Indication s:Acute drug-induced gout of multiple sites Take 2 Tablets by mouth in the morning. 60 Tablet 5 11/14/2023 Active HYDROcodone-Acetamin ophen 7.5-325 MG Oral TabletIndications:Ch ronic bilateral low back pain without sciatica,Acute drug-induced gout of right ankle Take 1 Tablet by mouth every 6 hours as needed for Pain, Severe. 120 Tablet 0 11/14/2023 Active Qptfe-1-paad Ethyl Esters 1 GM Oral Capsule (Lovaza)Indications: Dyslipidemia, goal LDL below 70 Take 2 Capsules by mouth in the morning and 2 Capsules before bedtime. 120 Capsule 5 11/14/2023 Active Torsemide 10 MG Oral Tablet (Demadex) Take 5 Tablets by mouth in the morning. Do not start before December 08, 2023. 150 Tablet 0 12/08/2023 Active Potassium Chloride ER 10 MEQ Oral Tablet Extended ReleaseIndications:H TN, goal below 140/90,Paroxysmal atrial fibrillation (HCC),LBBB (left bundle branch block) Take 2 Tablets by mouth in the morning. 360 Tablet 1 12/07/2023 Active documented as of this encounter (statuses as of 12/10/2023) Active Problems Problem Noted Date Diagnosed Date WALDEMAR (acute kidney injury) 12/06/2023 Hypovolemia 12/06/2023 Hyponatremia 12/06/2023 Hypokalemia 12/06/2023 Leukocytosis 12/06/2023 Generalized weakness 12/06/2023 Hypotension 12/06/2023 Ambulatory dysfunction 11/03/2023 Leukocytosis 11/03/2023 Hypokalemia 11/03/2023 Hypertension 10/12/2023 Difficulty using continuous positive airway pressure (CPAP) device 10/12/2023 Chronic systolic congestive heart failure 2023 Cardiomyopathy 09/06/2023 Last Assessment & Plan: Torsemide- BB and barbara- Metolazone weekly Has DTP in place Neuropathic pain of both feet 09/06/2023 Positive colorectal cancer screening using Colog uard test 11/16/2022 Claustrophobia 09/11/2022 Presence of coronary angioplasty implant and gra ft 08/28/2022 Chronic bilateral low back pain without sciatica 08/28/2022 Juxtarenal abdominal aortic aneurysm (AAA) witho ut rupture 08/28/2022 Last Assessment & Plan: Stable Other persistent atrial fibrillation 08/28/2022 Alcohol consumption binge drinking 08/28/2022 Right lower lobe pulmonary nodule 05/25/2022 Moderate episode of recurrent major depressive d isorder 09/26/2021 Last Assessment & Plan: Controlled with abilify Having increased depressive mood from lack of pain control denies SI Elevated uric acid in blood 09/26/2021 Pulmonary emphysema 09/22/2021 PAF (paroxysmal atrial fibrillation) 09/22/2021 Atherosclerotic heart diseas e of wrangell coronary artery with other forms of angina pectoris 09/22/2021 Last Assessment & Plan: Rate controlled with digoxin Eliquis and plavix Has statin intolerance Tobacco dependence 03/07/2021 Last Assessment & Plan: Continues 1 PPD- not interested in cessation Adjustment disorder with anxious mood 03/07/2021 Biventricular ICD (implantab le cardioverter-defibrillator) in place 12/23/2020 LBBB (left bundle branch block) 11/22/2020 Controlled substance agreement signed 09/02/2020 PVD (peripheral vascular disease) 12/16/2019 Closed fracture of right ankle with routine heal ing 11/15/2019 Basal cell carcinoma (BCC) of right nasal tip COPD, group D, by GOLD 2017 classification 01/13 Overview: Per COPD GOLD Classification Last Assessment & Plan: Continues wixela and nebs PRN Basal cell carcinoma (BCC) of right ala nasi Squamous cell carcinoma of ala nasi 08/29/2018 Thoracic aortic aneurysm without rupture 018 Hx of nonmelanoma skin cancer 09/14/2016 Overview: basal cell carcinoma (R sideburn, L side of nose, R upper abdomen) H/O dysplastic nevus 09/14/2016 Overview: atypical nevus (L upper back) Obstructive sleep apnea 05/31/2010 Overview: 05/31/10 - untreated, BMI 43.71 kg/m, NECK: 21 inches, [place] 624, sent for bipap titration study 01/11/11 case per [facility] completed ICD-10 update of inactive term Last Assessment & Plan: Waiting for new bipap machine BMI 35-39 ISOLATED (SEE ACTUAL BMI) 01/17/2010 Overview: Per Obesity Protocol, #19 BPH without obstruction/lower urinary tract symp toms 08/19/2009 Dyslipidemia, goal LDL below 70 07/21/2009 Overview: Per Lipid Taxonomy. documented as of this encounter (statuses as of 12/10/2023) Resolved Problems Problem Noted Date Diagnosed Date Resolved Date Gout attack 11/03/2023 11/14/2023 Acute on chronic systolic (c ongestive) heart failure 09/06/2023 10/12/2023 Atrial fibrillation 08/14/2023 10/12/19 24 Body mass index (BMI) of 40. 0 to 44.9 in adult 02/12/2023 03/14/2023 Overview: Per Obesity protocol Class 2 severe obesity due t o excess calories with serious comorbidity and body mass index (BMI) of 38.0 to 38.9 in adult 08/28/2022 Overview: Per Obesity protocol Prediabetes 10/17/2021 08/16/2023 Overview: Per Prediabetes protocol Chronic systolic HF (heart failure) 11/22/2020 10/12/2023 Coronary artery disease invo lving wrangell coronary artery of wrangell heart without angina pectoris 07/06/2020 10/12/2023 Chronic systolic heart failure 07/06/2020 10/12/2023 Heart failure, systolic, due to CAD 06/04/2019 10/12/2023 Depression with anxiety 01/10/201809/07 Morbid (severe) obesity due to excess calories 05/17/2017 03/14/2023 Sacroiliitis, not elsewhere classified 05/17/2017 01/10/2018 COPD, severity to be determined 08/18/2015 01/15/2019 Overview: Per COPD GOLD Classification Encounter for surveillance of abnormal nevi 04/06/2015 05/17/2017 Osteoarthritis of knee 09/23/201305/17 Claudication 05/13/2013 10/12/2023 [employer] Other*[id number] 04/23/2012 09/12/2016 Overview: Study Title: Genomic Markers for Patients with Cardiovascular Disease Project # [id number] [place]etier: Comfort Aviles MD [phone] Impotence of organic origin 02/16/2011 01/10/2018 Shortness of breath 08/09/2010 05/17/20 17 Sleep apnea 05/24/2010 05/31/2010 Displacement of lumbar inter vertebral disc without myelopathy 08/19/2009 05/17/2017 Tobacco use disorder 10/02/2007 023 Benign prostatic hyperplasia 12/11/2001 08/19/2009 Overview: ICD-10 update of inactive term ICD-10 update of inactive term SCREEN MAL NEOP-RECTUM 12/11/200110/14 Overview: Resolved per Screening Diagnosis Protocol #6 Malignant neoplasm of skin of parts of face 05/09/2001 09/14/2016 Overview: ICD-10 update of inactive term Malignant neoplasm of scalp and skin of neck 1 05/17/2017 Overview: ICD-10 update of inactive term Dyslipidemia, goal to be determined 07/21/2009 Overview: Per Lipid Taxonomy. Major depressive disorder Overview: ICD-10 update of inactive term MALIG MELANOMA SKIN NEC 05/06 documented as of this encounter (statuses as of 12/10/2023) Immunizations Name Administration Dates Next Due COVID-19 mRNA, LNP-s, No Pre serve, 2-Dose Series (Moderna) 11/08/2020,10/08/2020 Pneumococcal Conjugate Vacc, 13 Valent (Prevnar) 12/02/2018 Pneumococcal Polysaccharide PPV23 (Pneumovax) 05/27/2020,09/10/2008 Season Influenza, Quad, PF, Adjuvanted, 65+ Yrs, IM (FLUAD) 04/13/2020 Seasonal Influenza, PF, 6 M & above, IM , (FluLaval or Fluzone) 05/08/2019 Seasonal Influenza, Quadriva lent Hd (Fluzone Hd) 05/11/2022,06/09/2021 Seasonal Influenza, Quadriva lent,with Preserve, 3 yr & above, IM 05/15/2016 Seasonal Influenza, Split, I IV3, With Preserve, Inj 06/02/2014,05/13/2013,06/12/2012,07/18,08/19/2009,09/10/2008(Deferred: Patient Refused - pt does not get flu) TDAP (age 11 and older)(Adacel) 08/19/19,09/10/2008(Deferred: Patient Refused) documented as of this encounter Social History Tobacco Use Types Packs/Day Years Used Date Smoking Tobacco: Every Day Cigarettes 1 52 Smokeless Tobacco: Never Comments:pack per day. 4 Alcohol Use Standard Drinks/Week Comments Yes 0 (1 standard drink = 0.6 oz pur e alcohol) rare PHQ-2 Answer Date Recorded PHQ Adult Total Score 13 08/29/2023 Hunger Vital Sign Answer Date Recorded Within the past 12 months, y ou worried that your food would run out before you got the money to buy more. Never true 08/29/19 24 Within the past 12 months, t he food you bought just didn't last and you didn't have money to get more. Never true 08/29/2023 Sex and Gender Information Value Date Recorded Sex Assigned at Male 11/05/2018 2:28 PM EDT Gender Identity Male 11/05/2018 2:28 PM EDT Sexual Orientation Straight 11/05/2018 2: 28 PM EDT Job Start Date Occupation Industry Not on file Not on file Not on file documented as of this encounter Functional Status Functional Status Response Date of Assess ment Are you deaf or do you have serious difficulty h earing? No 12/06/2023 Are you blind or do you have serious difficulty seeing, even when wearing glasses? No 12/06/2023 Do you have serious difficul ty walking or climbing stairs? (5 years old or older) No 12/06/2023 Do you have difficulty dress ing or bathing? (5 years old or older) No 12/06/2023 Because of a physical, menta l, or emotional condition, do you have difficulty doing errands alone such as visiting a doctor s office or shopping? (15 years old or older) No 12/06/19 24 Cognitive Status Response Date of Assessm ent Because of a physical, menta l, or emotional condition, do you have serious difficulty concentrating, remembering, or making decisions? 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 to schedule OCTAVIO RRs 18% documented in this encounter Plan of Treatment Upcoming Encounters Date Type Department Care Team ([facility] Contact Info) Description 12/12/2023 10:00 AM EDT Rehab Services Physical Therapy [address] [place] [address] Valorie Valdivia, DIMPLE [address] [place] [address] [address]imitri [address] [place] [address] 12/12/2023 12:15 PM EDT Home Visit [facility] [place] [address] [place] [address] Xochitl Marina, [facility] [address] [place] [address] 12/13/2023 9:50 AM EDT Office Visit Family Practice [address] [phone] Buster Jessica MD [address] [place] [address] 12/14/2023 11:30 AM EDT Rehab Services Physical Therapy [address] [phone] Valorie Valdivia, [address] [address] 12/17/2023 11:30 AM EDT Rehab Services Physical Therapy [address] [phone] Valorie Valdivia, DIESEL LUBE TECH [address] [place] [address] 12/19/2023 10:45 AM EDT Rehab Services [address] [phone] Valorie Valdivia, [address] [address] 12/20/2023 1:30 PM EDT Telemedicine [facility] [place] [address] [place] [address] Grisel Richter, MAYRA [address] [place] [address] Clary Eastman, [facility] Tray Line Worker [address] [place] [address] 12/24/2023 10:45 AM EDT Rehab Services Physical [address] [phone] Marleni Quarles, PT [address] [place] [address] 12/26/2023 10:00 AM EDT Rehab Services Physical Therapy [address] [phone] Valorie Valdivia, DIESEL LUBE TECH [address] [address] 01/01/2024 10:00 AM EDT Home Visit [facility] [place] [address] [place] [address] Lisa Tenorio RN [address] [place] [address] 01/02/2024 10:45 AM EDT Rehab Services Physical Therapy [address] [phone] Marleni Quarles, PT [address] [place] [address] 01/04/2024 8:25 AM EDT Hospital Encounter [facility], Operating Room [facility] [address] [place] [address] Freeman Beaulieu, [address] [place] [phone] 01/04/2024 8:25 AM EDT - 01/04/2024 8:50 AM EDT Surgery OR [facility], Operating Room [facility] [address] [place] [address] Freeman Beaulieu, [address] [place] [address] INJECTION SACROILIAC JOINT 01/04/2024 10:45 AM EDT Rehab Services Physical Therapy [address] [phone] Valorie Valdivia, DIESEL LUBE TECH [address] [address] 01/15/2024 10:40 AM EDT Office Visit Sleep Disorders Ctr [facility] [address] [facility] [place] [phone] Clair Quarles DO [address] [place] [address] 04/22/2024 9:30 AM EDT Cardiac Studies Cardiology, [facility] [address] [facility] [place] [address] [place], Pacer Clinic [facility] [address] [facility] [place] [address] 05/19/2024 9:30 AM EDT Appointment Radiology, [place] [address] [place] [address] Scheduled Procedures Name Priority Associated Diagnoses Date/Ti me INJECTION SACROILIAC JOINT Inflammation of sacroiliac joint (HCC) 01/04/2024 8:25 AM EDT COLONOSCOPY FLEXIBLE PROXIMAL DIAGNOSTIC Recall History of colon polyps Health Maintenance Due Date Last Done Comments Sigmoidoscopy 1994 Fecal Occult Blood Test 08/20/2010 08/20/2009 *ADVANCE DIRECTIVE NOT ON FILE 05/28/2019 COVID-19 Vaccine ( season) 2023 11/08/2020, 10/08/2020 DISCUSS TOBACCO CESSATION (REFER TO SMARTSET #0202) 06/02/2023 06/02/2022, 07/21/2020 Depression, Most Recent Score >= 10 (will fire each visit until score < 10) 08/30/2023 08/29/2023 Influenza Vaccine (FLU shot) (Season Ended) 2024 05/11/2022, 06/09/2021, 04/13/2020, Additional history exists GFR 12/06/2024 12/07/2023, 09/2023, 12/05/2023, Additional history exists O2 ASSESSMENT COMPLETED IN PAST YEAR FOR COPD 12/06/2024 12/07/2023 Cologuard 10/10/2025 10/10/2022, 3, 10/04/2022, Additional history exists Albumin/Creatinine Ratio 06/06/2026 06/06/2023 Colonoscopy 10/28/2027 10/27/2022, 04/06, 04/21/2014, Additional history exists Colorectal Cancer Screening 10/28/2027 DTaP,Tdap,and Td Vaccines (3 - Td or Tdap) 04/13/2030 04/13/2020 (Declined), 08/19/2009 Alpha-1 Antitrypsin Completed 02/19/2020 Pneumococcal Vaccine: 65+ Years Completed 05/27/2020, 12/02/2018, 09/10/2008 Lung Cancer Screening Completed 08/22/2022 , 05/22/2022, 02/21/2021, Additional history exists RETIRED - COLONOSCOPY-EVERY 5 YRS AGES 18-100 Discontinued 10/27/2022, 04/21/2014, 04/21/2014, Additional history exists GARDASIL-HPV IMMUNIZATION SERIES Aged Out No longer eligible based on patient's age to complete this topic Hepatitis B Aged Out No longer eligi ble based on patient's age to complete this topic MENINGOCOCCAL (MENACTRA/MENVEO) Aged Out No longer eligible based on patient's age to complete this topic Zoster Vaccines Discontinued documented as of this encounter Medical Devices Implanted Type Area Catalog Specialist Device Identifier Shelf Expiration Date Model / Serial / Lot 32mm X 109mm, Zenith Fenestrated Aaa Endovascular Proximal Body Graft, Two Proximal Internal Stent Implanted:Qty: 1 on 04/15/2018 by Eevns Hoyt MD [place] [facility] N/A: Aorta [employer] 03/20/2021 ZFEN-P-[id number]- [id number] / / [id number] Stent Graft [id number] - [id number] - [id number] Implanted:Qty: 1 on 04/15/2018 by Evens Hoyt MD at [place] [facility] Right: Renal Artery GETINGE : MAQUET 11/30/2020 [id number] / [id number] / [id number] Stent Graft [id number] - [id number] - [id number] Implanted:Qty: 1 on 04/15/2018 by Evens Hoyt MD at [place] [facility] Right: Renal Artery GETINGE : MAQUET 11/30/2020 [id number] / [id number] / [id number] 28mm X 76mm Distal, 12mm Ipsilateral Leg, Zenith Fenestrated Aaa Endovascular Distal Bifurcated Body Graft Implanted:Qty: 1 on 04/15/2018 by Evens Hoyt MD at [place] [facility] [place] N/A: Aorta [employer] 03/20/2021 [id number]-D-12 -[id number] / / [id number] Graft Iliac Leg Spirlz [id number] - [id number] Implanted:Qty: 1 on 04/15/2018 by Evens Hoyt MD at [place] [facility] Left: Iliac [employer] 09/14/2020 [id number] / / [id number] Graft Iliac Leg Spirlz [id number] - [id number] Implanted:Qty: 1 on 04/15/2018 by Evens Hoyt MD at [place] [facility] Right: Iliac [employer] 11/09/2020 [id number] / / [id number] Transfixation Pin 6mm 294.950 - [id number] Implanted:Qty: 1 on 11/14/2019 by Mayank Friedman MD at OR [facility] Right: Ankle SYNTHES 294.950 / / Description:transfixation pi n Screw Schanz [id number] - [id number] Implanted:Qty: 2 on 11/14/2019 by Mayank Friedman MD at OR [facility] Right: Leg Lower SYNTHES 294.786SH A / / Description:self drilling sh antz screws 5.0mm x 200mm [place] Trauma 2.7 Lock Screw 16mm Implanted:Qty: 2 on 11/27/2019 by Donavan Ramirez Jr., MD at [place] [facility] [place] Right: Ankle ESTHELA : TRAUMA [id number] / / Description:hardware set Esthela Trauma 2.7 Lock Screw 14mm Implanted:Qty: 1 on 11/27/2019 by Donavan Ramirez Jr., MD at [place] [facility] Right: Ankle ESTHELA : TRAUMA [id number] / / Esthela Trauma 3.5 Screw 14mm Implanted:Qty: 1 on 11/27/2019 by Donavan Ramirez Jr., MD at [place] [facility] [place] Right: Ankle ESTHELA : TRAUMA [id number] / / Description:hardware set Esthela Trauma 3.5 Screw 18mm Implanted:Qty: 1 on 11/27/2019 by Donavan Ramirez Jr., MD at [place] [facility] Right: Ankle ESTHELA : TRAUMA [id number] / / Description:hardware set Esthela 3.5 Lockscrew 16mm Implanted:Qty: 1 on 11/27/2019 by Donavan Ramirez Jr., MD at [place] [facility] Right: Ankle [id number] / / Esthela 2.0 Plate Implanted:Qty: 1 on 11/27/2019 by Donavan Ramirez Jr., MD at [place] [facility] Right: Ankle [id number] / / Esthela 2.0 Lock Screw Implanted:Qty: 2 on 11/27/2019 by Donavan Ramirez Jr., MD at [facility] Right: Ankle [id number] / / Esthela 2.0 Lock Screw Implanted:Qty: 1 on 11/27/2019 by Donavan Ramirez Jr., MD at [place] [facility] Right: Ankle [id number] / / [place] 2.0 Lock Screw Implanted:Qty: 1 on 11/27/2019 by Donavan Ramirez Jr., MD at [place] [facility] [place] Right: Ankle [id number] / / Plate Fib 5h 40 - [id number] Implanted:Qty: 1 on 11/27/2019 by Donavan Ramirez Jr., MD at [place] [facility] [place] Right: Ankle ESTHELA : TRAUMA / / Description:hardware set documented as of this encounter Additional Health Concerns Infection Onset Date Last Indicated Resolved Time Gastrointestinal Rule-Out 12/05/2023 12/05/2023 documented as of this encounter Advance Directives Latest Code Status on File Code Status Date Activated Date Inactivated Comments Full Code 12/06/2023 12:43 AM 12/07/2023 9:38 PM This o rder reflects the patients wishes and were consensually agreed upon. Question Answer Comments Discussion of Advance Directives occurred with: Patient Prior Does the patient have a Living Will? No Does the patient have Health Care Power of Engraving Supervisor? No Code Status History Code Status Date Activated Date Inactivated Comments Full Code 11/03/2023 12:54 AM 11/03/2023 9:39 PM This order reflects the patients wishes and were consensually agreed upon. Question Answer Comments Discussion of Advance Directives occurred with: Patient Does the patient have a Living Will? No Does the patient have Health Care Power of Engraving Supervisor? No Full Code 11/27/2019 11:36 AM 11/27/2019 4:45 PM Thi s order reflects the patients wishes and were consensually agreed upon. Full Code 11/14/2019 1:19 PM 11/17/2019 7:24 PM This order reflects the patients wishes and were consensually agreed upon. Full Code 11/14/2019 8:16 AM 11/14/2019 1:19 PM This order reflects the patients wishes and were consensually agreed upon. Question Answer Comments Discussion of Advance Directives occurred with: Patient Does the patient have a Living Will? No Does the patient have Health Care Power of Engraving Supervisor? No Care Teams Apron Worker Relationship Specialty Start Date End Date Buster Jessica MD [address] [place] [phone] PCP - General Family Medicine 09/11/22 documented as of this encounter
--- OUTSIDE RECORDS SUMMARY | 2023-12-11 18:38 | External Medical Summary | Summary of Care ---
Author Name Unknown Organization [facility] Address [address] [place] [address] Phone [phone] Care Team Providers Care Supervisor [place] Name Role Phone Buster Jessica MD Primary Care P [facility] Reason for Visit * Reason Onset Date Comments Appointment 12/10/2023 Encounter Details Date Type Department Care Team (Late st Contact Info) Description 12/10/2023 Telephone [facility] [place] [facility] [place] [address] Services, Scheduling [address] [place] [address] Appointment (//) Allergies Active Allergy Reactions Criticality Noted Date [...] Oral Tablet (pLAVix)Indications: PAD (peripheral artery disease) ([facility]),Coronary artery disease involving quileute coronary artery of quileute heart without angina pectoris TAKE ONE TABLET BY MOUTH ONCE DAILY 90 Tablet 3 03/13/2023 Active Famotidine 20 MG Oral Tablet (Pepcid) TAKE 1 TABLET BY MOUTH TWICE DAILY (MORNING AND AT BEDTIME) 180 Tablet 3 04/30/2023 Active Spironolactone 25 MG Oral Tablet (Aldactone)Indicatio ns:Coronary artery disease involving quileute coronary artery of quileute heart without angina pectoris,Heart failure, systolic, due to CAD ([facility]),Chronic ischemic heart disease,HTN, goal below 140/90 TAKE ONE TABLET BY MOUTH ONCE DAILY 90 Tablet 3 05/14/2023 Active Losartan Potassium 25 MG Oral Tablet (Cozaar)Indications: PAD (peripheral artery disease) ([facility]),Coronary artery disease involving quileute coronary artery of quileute heart without angina pectoris TAKE ONE TABLET BY MOUTH ONCE DAILY 90 Tablet 3 06/04/2023 Active Baclofen 20 MG Oral TabletIndications:Ch ronic bilateral low back pain without sciatica Take 1 Tablet by mouth 3 times a day as needed for Muscle spasms. 90 Tablet 5 06/06/2023 Active Repatha SureClick 140 MG/ML Subcutaneous Solution Auto-injector (evolocumab)Indicati ons:Obstructive sleep apnea,Heart failure, systolic, due to CAD ([facility]),Dyslipidemia, goal LDL below 70,Chronic ischemic heart disease,Tobacco use disorder,Coronary artery disease involving quileute coronary artery of quileute heart without angina pectoris Inject 140 mg [...] suspected opioid overdose. Seek immediate medical attention. [email or web address] 1 Each 3 09/15/2023 Active Desvenlafaxine Succinate ER 100 MG Oral Tablet Extended Release 24 Hour (Pristiq)Indications :Moderate episode of recurrent major depressive disorder (HCC) Take 1 Tablet by mouth in the morning. 30 Tablet 11 09/21/2023 Active Fluticasone-Salmeter ol 250-50 MCG/ACT Inhalation Aerosol Powder Breath Activated (Wixela Inhub)Indications:CO PD, group D, by GOLD 2017 classification ([facility]) Inhale 1 Puff by mouth in the morning and 1 Puff before bedtime. 180 Each 12 10/29/2023 Active Albuterol Sulfate (2.5 MG/3ML) 0.083% Inhalation Nebulization Solution (Proventil)Indicatio ns:COPD, group D, by GOLD 2017 classification ([facility]) Inhale 1 Vial via nebulizer every 4 [...] Pain, Severe. 120 Tablet 0 11/14/2023 Active Vslti-7-bumi Ethyl Esters 1 GM Oral Capsule (Lovaza)Indications: [...] fibrillation) 09/22/2021 Atherosclerotic heart diseas e of quileute coronary artery with other forms of angina [...] Last Assessment & Plan: Continues wixela and edils PRN Basal cell carcinoma (BCC) of right [...] untreated, BMI 43.71 kg/m, NECK: 21 inches, [place] 6/24, sent for bipap titration study 01/11/11 case [...] 11/22/2020 10/12/2023 Coronary artery disease invo lving quileute coronary artery of quileute heart without angina pectoris 07/06/2020 10/12/2023 Chronic [...] 09/23/201305/17 Claudication 05/13/2013 10/12/2023 [employer] Other*[id number] 04/23/2012 09/12/2016 Overview: Study Title: Genomic Markers for Patients with Cardiovascular Disease Project # [id number] Preassembler And Inspector: Comfort Aviles MD [phone] Impotence of organic origin 02/16/2011 01/10/2018 Shortness [...] neoplasm of scalp and skin of neck 05/17/2017 Overview: ICD-10 update of inactive term [...] get flu) TDAP (age 11 and older)(Adacel) 08/19/19 10,09/10/2008(Deferred: Patient Refused) documented as of this encounter [...] encounter Miscellaneous Notes * Telephone Encounter - Sabi Licona OSA - 12/10/2023 8:51 AM EDT Request to schedule OCTAVIO I called and he was able to accept appt today at 230 with [place] documented in this encounter Plan of Treatment Upcoming Encounters Date Type Department Care Team ([facility] Contact Info) Description 12/10/2023 2:30 PM EDT Home Visit [facility] [place] [address] [place] [address] Erlinda Clark PA-C [address] [place] [address] 12/12/2023 10:00 AM EDT Rehab Services Physical Therapy [address] [place] [phone] Valorie Valdivia, [address] [place] [address] 12/12/2023 12:15 PM EDT Home Visit [facility] [place] [address] [place] [address] Xochitl Marina, CELIO [address] [place] [address] 12/13/2023 9:50 AM EDT Office Visit Family [address] [phone] Buster Jessica MD [address] [place] [address] 12/14/2023 11:30 AM EDT Rehab Services Physical Therapy [address] [phone] Valorie Valdivia, OUTDOOR STUDIES PROFESSOR [address] [place] [address] 12/17/2023 11:30 AM EDT Rehab Services Physical Therapy [address] [phone] Valorie Valdivia, OUTDOOR STUDIES PROFESSOR [address] [place] [address] 12/19/2023 10:45 AM EDT Rehab Services Physical Therapy [address] [phone] Valorie Valdivia, OUTDOOR STUDIES PROFESSOR [address] [place] [address] 12/20/2023 1:30 PM EDT Telemedicine [facility] [place] [address] [place] [address] Grisel Richter CRNP [address] [place] [address] Clary Eastman, [facility] [address] [place] [address] 12/24/2023 10:45 AM EDT Rehab Services Physical Therapy [address] [phone] Marleni Quarles, PT [address] [place] [address] 12/26/2023 10:00 AM EDT Rehab Services Physical Therapy [address] [place] [phone] Valorie Valdivia, OUTDOOR STUDIES PROFESSOR [address] [facility] [address] [place] [address] 01/01/2024 10:00 AM EDT Home Visit [facility] [place] [address] [place] [address] Lisa Tenorio RN [address] [place] [address] 01/02/2024 10:45 AM EDT Rehab Services Physical [address] [phone] Marleni Quarles, PT [address] [place] [address] 01/04/2024 8:25 AM EDT Hospital Encounter OR [facility], Operating Room [facility] [address] [place] [phone] Freeman Beaulieu, DO [address] [place] [phone] 01/04/2024 8:25 AM EDT - 01/04/2024 8:50 AM EDT Surgery OR O[facility], Operating Room O[facility] [address] [place] [phone] Freeman Beaulieu, DO [address] [place] [phone] INJECTION SACROILIAC JOINT 01/04/2024 10:45 AM EDT Rehab Services Physical [address] [place] [phone] Valorie Valdivia, OUTDOOR STUDIES PROFESSOR [address] [facility] [address] [place] [address] 01/15/2024 10:40 AM EDT Office Visit [facility] [address] [facility] [place] [phone] Clair Quarles DO [address] [facility] [place] [address] 04/22/2024 9:30 AM EDT Cardiac Studies Cardiology, [facility] [address] [facility] [place] [address] [facility] [address] [facility] [address] 05/19/2024 9:30 AM EDT Appointment Radiology, [facility] [address] [place] [address] Scheduled Procedures Name Priority Associated [...] 10/08/2020 DISCUSS TOBACCO CESSATION (REFER TO SMARTSET #3291) 06/02/2023 06/02/2022, 07/21/2020 Depression, Most Recent Score >= 10 (will fire each visit until score < 10) 08/30/2023 08/29/2023 Influenza Vaccine (FLU shot) (Season Ended) 2024 05/11/2022, 06/09/2021, 04/13/2020, Additional history exists GFR 12/06/2024 12/07/2023, 09/2023, 12/05/2023, Additional history exists O2 ASSESSMENT COMPLETED IN PAST YEAR FOR COPD 12/06/2024 12/07/2023 Cologuard 10/10/2025 10/10/2022, 08/2022, 10/04/2022, Additional history exists Albumin/Creatinine Ratio 06/06/2026 [...] this encounter Medical Devices Implanted Type Area Waste Machine Tender Device Identifier Shelf Expiration Date Model / Serial / Lot 32mm X 109mm, Zenith Fenestrated Aaa Endovascular Proximal Body Graft, Two Proximal Internal Stent Implanted:Qty: 1 on 04/15/2018 by Evens Hoty MD [place] [facility]/A: Aorta [employer] 03/20/2021 ZFEN-P-2- [id number] / / [id number] Stent Graft [id number] - [id number] - [id number] Implanted:Qty: 1 on 04/15/2018 by Evens Hoyt MD at [place] [facility] Right: Renal Artery GETINGE : MAQUET 11/30/2020 [id number] / [id number] / [id number] Stent Graft [id number] - [id number] - [id number] Implanted:Qty: 1 on 04/15/2018 by Evens Hoyt MD at [place] [facility] Right: Renal Artery GETINGE : GENET 11/30/2020 [id number] / [id number] / [id number] 28mm X 76mm Distal, 12mm Ipsilateral Leg, Zenith Fenestrated Aaa Endovascular Distal Bifurcated Body Graft Implanted:Qty: 1 on 04/15/2018 by Evens Hoyt MD at [place] [facility] N/A: Aorta [employer] 03/20/2021 ZFEN-D-12 -28-76-C / / [id number] Graft Iliac Leg Spirlz [id number] - [id number] Implanted:Qty: 1 on 04/15/2018 by Evens Hoyt MD at [place] [facility] Left: Iliac [employer] 09/14/2020 [id number] / / [id number] Graft Iliac Leg Spirlz [id number] - [id number] Implanted:Qty: 1 on 04/15/2018 by Evens Hoyt MD at [place] [facility] Right: Iliac [employer] 11/09/2020 [id number] / / [id number] Transfixation Pin 6mm 294.950 - [id number] Implanted:Qty: 1 on 11/14/2019 by Mayank Friedman MD at OR [facility] Right: Ankle SYNTHES 294.950 / / Description:transfixation pi n Screw Schanz [id number] - [id number] Implanted:Qty: 2 on 11/14/2019 by Mayank Friedman MD at OR [facility] Right: Leg Lower SYNTHES 294.786SH A / / Description:self drilling sh antz screws 5.0mm x 200mm Esthela Trauma 2.7 Lock Screw 16mm Implanted:Qty: 2 on 11/27/2019 by Donavan Ramirez Jr., MD at [place] [facility] Right: Ankle ESTHELA : TRAUMA [id number] / / Description:hardware set Esthela Trauma 2.7 Lock Screw 14mm Implanted:Qty: 1 on 11/27/2019 by Donavan Ramirez Jr., MD at [place] [facility] Right: Ankle ESTHELA : TRAUMA [id number] / / Junior Trauma 3.5 Screw 14mm Implanted:Qty: 1 on 11/27/2019 by Donavan Ramirez Jr., MD at [place] [facility] Right: Ankle ESTHELA : TRAUMA [id number] / / Description:hardware set Esthela Trauma 3.5 Screw 18mm Implanted:Qty: 1 on 11/27/2019 by Donavan Ramirez Jr., MD at [place] [facility] Right: Ankle ESTHELA : TRAUMA [id number] / / Description:hardware set Junior 3.5 Lockscrew 16mm Implanted:Qty: 1 on 11/27/2019 by Donavan Ramirez Jr., MD at [place] [facility] Right: Ankle [id number] / / Junior 2.0 Plate Implanted:Qty: 1 on 11/27/2019 by Donavan Ramirez Jr., MD at [place] [facility] Right: Ankle [id number] / / Junior 2.0 Lock Screw Implanted:Qty: 2 on 11/27/2019 by Donavan Ramirez Jr., MD at [place] [facility] Right: Ankle [id number] / / Junior 2.0 Lock Screw Implanted:Qty: 1 on 11/27/2019 by Donavan Ramirez Jr., MD at [place] [facility] Right: Ankle [id number] / / Esthela 2.0 Lock Screw Implanted:Qty: 1 on 11/27/2019 by Donavan Ramirez Jr., MD at [place] [facility] Right: Ankle [id number] / / Plate Fib 5h - [id number] Implanted:Qty: 1 on 11/27/2019 by Donavan Ramirez Jr., MD at [place] [facility] Right: Ankle ESTHELA : TRAUMA / / [...] the patient have Health Care Power of Ornamental Machine Operator? No Code Status History Code Status Date Activated Date Inactivated Comments Full Code 11/03/2023 12:54 AM 11/03/2023 9:39 PM This order reflects the patients wishes and were consensually agreed upon. Question Answer Comments Discussion of Advance Directives occurred with: Patient Does the patient have a Living Will? No Does the patient have Health Care Power of Ornamental Machine Operator? No Full Code 11/27/2019 11:36 AM 11/27/2019 4:45 PM This order reflects the patients wishes [...] the patient have Health Care Power of Ornamental Machine Operator? No Care Teams Supervisor [place] Relationship Specialty Start Date End Date Buster Jessica MD [address] [place] [address] PCP - General Family Medicine 09/11/22 documented as of this encounter
--- OUTSIDE RECORDS SUMMARY | 2023-12-11 18:39 | External Medical Summary ---
Author Name Unknown Address Unknown Organization [id number]:[facility] - [address] [place] [phone] Laboratory Report Ordering Provider Test Date Status SEVEN HARMAN 12/06/2023 05:48:00 Final Observation Date Value Abnormality Reference (Units ) Status WBC, Total 12/06/2023 05:48:00 8.71 4.00-10.8 0 (K/uL) Final RBC 12/06/2023 05:48:00 4.07 4.50-5.25 (M/uL) Final Hemoglobin 12/06/2023 05:48:00 11.7 Below low normal 14 .0-16.8 (g/dL) Final HCT 12/06/2023 05:48:00 36.0 Below low normal 40. 0-48.4 (%) Final MCV 12/06/2023 05:48:00 88.5 82.0-99.5 (fL) Final MCH 12/06/2023 05:48:00 28.7 27.0-34.0 (pg) Final MCHC 12/06/2023 05:48:00 32.5 32.0-36.0 (g/dL) Final RDW 12/06/2023 05:48:00 16.1 11.5-15.5 (%) Final Platelets 12/06/2023 05:48:00 296 140-400 (K /uL) Final MPV 12/06/2023 05:48:00 10.5 6.6-11.1 ( fL) Final Performing Location [facility] [address] [facility] [phone]
--- OUTSIDE RECORDS SUMMARY | 2023-12-11 18:39 | External Medical Summary | Summary of Care ---
Author Name Unknown Organization [facility] Address [address] [place] [address] Phone [phone] Care Team Providers Care Handbell Choir Director Name Role Phone Buster Jessica MD Primary Care [facility] Reason for Referral * Evaluate & Treat - Unlimited Visits (Within 10 days (routine)) - Authorized Specialty Diagnoses / Procedures Referred By Contact Referred To Contact Cardiovascular Medicine / Cardiology Diagnoses Heart failure (HCC) Kalani Lynn MD [address] [place] [address] Referral ID Status Reason Start Date Expiration Date Visits Requested Visits Authorized [id number] Authorized Specialty Services Required 12/07/2023 999 [id number] Question Answer Referral Priority Within 10 days (routine) Where should this appointment be scheduled? [facility] To which of the following clinics are you referring your patient? General Cardiology Clinic Comments Discharge Order Reason for Visit * Reason Comments Hypotension * Auth/Cert Specialty Diagnoses / Procedures Referred By Contac t Referred To Contact [facility] [address] [place] [address] Phone: [phone] Emergency Medicine [address] [address] Referral ID Status Reason Start Date Expiration Date Visits Re quested Visits Authorized [id number] Encounter Details Date Type Department Care Team (Latest Contact Info) Description 12/05/2023 4:51 PM EDT - 12/07/2023 5:18 PM EDT Hospital Encounter CCU [facility], Critical Care Unit, [facility] 2nd Floor [address] [place] [address] María Castaneda DO [address] [place] [address] Kalani Lynn MD [address] [place], [place] [id number] Various: EKG,KRAVS Discharge Disposition: Home - Self Care Allergies Active Allergy Reactions Criticality Noted Date Comments Atorvastatin Muscle pain,Unknown 01/18/2015 Medication intolerance, not an allergy Sacubitril-Valsartan Other (Please comment) 09/17/2020 Throat swelled Sacubitril High 07/20/2023 Other Reaction(s): THROAT SWELLING Simvastatin Low 06/23/2022 Other reaction(s): MUSCLE ACHES Valsartan High 07/20/2023 Other Reaction(s): THROAT SWELLING documented as of this encounter (statuses as of 12/08/2023) Medications Medication Sig Dispensed Refills Start Date End Date Status Vitamin C 1000 MG Oral Tablet Take 1 Tablet by mouth in the morning. 0 Active Metoprolol Succinate ER 100 MG Oral Tablet Extended Release 24 Hour (toPROL XL) TAKE ONE TABLET BY MOUTH ONCE DAILY 90 Tablet 3 3 Active Clopidogrel Bisulfate 75 MG Oral Tablet (pLAVix)Indication s:PAD (peripheral artery disease) (HCC),Coronary artery disease involving zuni coronary artery of zuni heart without angina pectoris TAKE ONE TABLET BY MOUTH ONCE DAILY 90 Tablet 3 3 Active Famotidine 20 MG Oral Tablet (Pepcid) TAKE 1 TABLET BY MOUTH TWICE DAILY (MORNING AND AT BEDTIME) 180 Tablet 3 3 Active Spironolactone 25 MG Oral Tablet (Aldactone)Indicat ions:Coronary artery disease involving zuni coronary artery of zuni heart without angina pectoris,Heart failure, systolic, due to CAD ([facility]),Chronic ischemic heart disease,HTN, goal below 140/90 TAKE ONE TABLET BY MOUTH ONCE DAILY 90 Tablet 3 3 Active Losartan Potassium 25 MG Oral Tablet (Cozaar)Indication s:PAD (peripheral artery disease) ([facility]),Coronary artery disease involving zuni coronary artery of zuni heart without angina pectoris TAKE ONE TABLET BY MOUTH ONCE DAILY 90 Tablet 3 3 Active Baclofen 20 MG Oral TabletIndications: Chronic bilateral low back pain without sciatica Take 1 Tablet by mouth 3 times a day as needed for Muscle spasms. 90 Tablet 5 3 Active Repatha SureClick 140 MG/ML Subcutaneous Solution Auto-injector (evolocumab)Indica tions:Obstructive sleep apnea,Heart failure, systolic, due to CAD ([facility]),Dyslipidemia , goal LDL below 70,Chronic ischemic heart disease,Tobacco use disorder,Coronary artery disease involving zuni coronary artery of zuni heart without angina pectoris Inject 140 mg (1 pen) under the skin every 14 days. 6 mL 3 3 Active Metoprolol Succinate ER 50 MG Oral Tablet Extended Release 24 Hour (Toprol XL)Indications:Per sistent atrial fibrillation (HCC),Acute on chronic systolic (congestive) heart failure (HCC) One tablet by mouth daily at bedtime, this is in addition to the previous prescription for 100 milligrams daily in the morning. 90 Tablet 3 4 Active Digoxin 125 MCG Oral Tablet (Lanoxin) Take 1 Tablet by mouth in the morning. 90 Tablet 3 4 Active ARIPiprazole 2 MG Oral Tablet (Abilify)Indicatio ns:Moderate episode of recurrent major depressive disorder (HCC) Take 1 Tablet by mouth in the morning. 30 Tablet 1 4 Active Naloxone HCl 4 MG/0.1ML Nasal Liquid (Narcan Nasal) Administer 1 spray into 1 nostril for suspected opioid overdose. Seek immediate medical attention. [email or web address] 1 Each 3 4 Active Desvenlafaxine Succinate ER 100 MG Oral Tablet Extended Release 24 Hour (Pristiq)Indicatio ns:Moderate episode of recurrent major depressive disorder (HCC) Take 1 Tablet by mouth in the morning. 30 Tablet 11 4 Active Fluticasone-Salmet sixto 250-50 MCG/ACT Inhalation Aerosol Powder Breath Activated (Wixela Inhub)Indications: COPD, group D, by GOLD 2017 classification ([facility]) Inhale 1 Puff by mouth in the morning and 1 Puff before bedtime. 180 Each 12 4 Active Albuterol Sulfate (2.5 MG/3ML) 0.083% Inhalation Nebulization Solution (Proventil)Indicat ions:COPD, group D, by GOLD 2017 classification ([facility]) Inhale 1 Vial via nebulizer every 4 hours as needed for Wheezing. 75 mL 1 4 Active Eliquis 5 MG Oral Tablet (Apixaban)Indicati ons:Persistent atrial fibrillation (HCC) TAKE 1 TABLET BY MOUTH TWICE DAILY 60 Tablet 11 4 Active Tamsulosin HCl 0.4 MG Oral Capsule (Flomax)Indication s:Benign prostatic hyperplasia (BPH) with post-void dribbling Take 2 Capsules by mouth every evening. 180 Capsule 1 4 Active Allopurinol 100 MG Oral Tablet (Zyloprim)Indicati ons:Acute drug-induced gout of multiple sites Take 2 Tablets by mouth in the morning. 60 Tablet 5 4 Active HYDROcodone-Acetam inophen 7.5-325 MG Oral TabletIndications: Chronic bilateral low back pain without sciatica,Acute drug-induced gout of right ankle Take 1 Tablet by mouth every 6 hours as needed for Pain, Severe. 120 Tablet 0 4 Active Bscfc-4-gmoa Ethyl Esters 1 GM Oral Capsule (Lovaza)Indication s:Dyslipidemia, goal LDL below 70 Take 2 Capsules by mouth in the morning and 2 Capsules before bedtime. 120 Capsule 5 4 Active Torsemide 10 MG Oral Tablet (Demadex) Take 5 Tablets by mouth in the morning. Do not start before December 08, 2023. 150 Tablet 0 4 01/07/20 24 Active Potassium Chloride ER 10 MEQ Oral Tablet Extended ReleaseIndications :HTN, goal below 140/90,Paroxysmal atrial fibrillation (HCC),LBBB (left bundle branch block) Take 2 Tablets by mouth in the morning. 360 Tablet 1 4 Active metOLazone 2.5 MG Oral Tablet (Zaroxolyn)Indicat ions:Ischemic cardiomyopathy Take 1 Tablet by mouth once a week. take 30 minutes prior to torsemide 4 Tablet 5 4 12/07/19 24 Discontinued Potassium Chloride ER 10 MEQ Oral Tablet Extended ReleaseIndications :HTN, goal below 140/90,Paroxysmal atrial fibrillation (HCC),LBBB (left bundle branch block) Take 2 Tablets by mouth in the morning and 2 Tablets before bedtime. 360 Tablet 1 4 12/07/19 24 Discontinued predniSONE 20 MG Oral Tablet (Deltasone)Indicat ions:Acute drug-induced gout of multiple sites Take 2 Tablets by mouth daily for 5 days, THEN 1 Tablet daily for 7 days, THEN 0.5 Tablets daily for 8 days. 21 Tablet 0 4 12/07/19 24 Discontinued Cephalexin 500 MG Oral Capsule (Keflex)Indication s:COPD, group D, by GOLD 2017 classification ([facility]) Take 1 Capsule by mouth in the morning and 1 Capsule at noon and 1 Capsule before bedtime. Do all this for 10 days. COPD rescue kit. 30 Capsule 0 4 12/07/19 24 Discontinued Torsemide 100 MG Oral Tablet (Demadex)Indicatio ns:Heart failure, systolic, due to CAD ([facility]) Take 1 tablet by mouth every morning. Take an additional tablet on Sunday, Sunday and Sunday afternoon only. 150 Tablet 3 4 12/07/19 24 Discontinued documented as of this encounter (statuses as of 12/08/2023) Active Problems Problem Noted Date Diagnosed Date [...] fibrillation) 09/22/2021 Atherosclerotic heart diseas e of zuni coronary artery with other forms of angina [...] untreated, BMI 43.71 kg/m, NECK: 21 inches, [place] 01/27, sent for bipap titration study 01/11/11 case per [facility] completed ICD-10 update of inactive term Last Assessment & Plan: Waiting for new bipap machine BMI 35-39 ISOLATED (SEE ACTUAL BMI) 01/17/2010 Overview: Per Obesity Protocol, #19 BPH without obstruction/lower urinary tract symp toms 08/19/2009 Dyslipidemia, goal LDL below 70 07/21/2009 Overview: Per Lipid Taxonomy. documented as of this encounter (statuses as of 12/08/2023) Resolved Problems Problem Noted Date Diagnosed Date [...] 11/22/2020 10/12/2023 Coronary artery disease invo lving zuni coronary artery of zuni heart without angina pectoris 07/06/2020 10/12/2023 Chronic [...] 09/23/201305/17 Claudication 05/13/2013 10/12/2023 [employer] Other*[id number] 04/23/2012 09/12/2016 Overview: Study Title: Genomic Markers for Patients with Cardiovascular Disease Project # [id number] Youth Advocate: Comfort Aviles MD [phone] Impotence of organic origin 02/16/2011 01/10/2018 Shortness [...] as of this encounter (statuses as of 12/08/2023) Immunizations Name Administration Dates Next Due COVID-19 [...] on file documented as of this encounter Last Filed Vital Signs Vital Sign Reading Time Taken Comments Blood Pressure 116/90 12/07/2023 2:00 PM EDT Pulse 86 12/07/2023 2:00 PM EDT Temperature 36.4 C (97.6 F) 12/07/2023 1:00 PM ED T Respiratory Rate 17 12/07/2023 2:00 PM EDT Oxygen Saturation 96% 12/07/2023 2:00 PM EDT Inhaled Oxygen Concentration - - Weight 116.1 kg (255 lb 15.3 oz) 12/07/2023 7:20 AM EDT Height 170.2 cm (5' 7") 12/06/2023 2:00 PM EDT Body Mass Index 40.09 12/06/2023 2:00 PM EDT documented in this encounter Functional Status Functional Status Response [...] (15 years old or older) No 12/06/19 Cognitive Status Response Date of Assessm ent Because of a physical, menta l, or emotional condition, do you have serious difficulty concentrating, remembering, or making decisions? (5 years old or older) No 12/06/2023 documented as of this encounter Discharge Summaries * Kalani Lynn MD - 12/07/2023 4:54 PM EDT Images from the original note were not included. [place] [id number] [facility] [id number] Admission Date: 12/05/2023 Discharge Date: 12/07/2023 RECOMMENDED TO DO FOR NEXT PROVIDER(S): Post hospital follow-up for acute on chronic systolic heart failure with hypovolemia from diarrhea REASON(S) FOR MEDICATION CHANGE(S): Discharging on 50 mg dose of torsemide daily Discharging on 20 mEq of potassium daily Discontinuing metolazone, prednisone, and cephalexin. DISPOSITION ON DISCHARGE: Home - Self Care Active Hospital Problems Diagnosis *Principal Diagnosis - Hypotension WALDEMAR (acute kidney injury) (HCC) Hypovolemia Hyponatremia Hypokalemia Leukocytosis Generalized weakness Resolved Hospital Problems No resolved problems to display. ADMISSION HISTORY & PHYSICAL EXAM (focused): HPI: Patient is a 73-year-old male with significant past medical history of CAD, atrial fibrillation on Eliquis, HFmrEF, cardiomyopathy, biventricular AICD in- situ, LBBB, hypertension, hyperlipidemia, thoracic aortic aneurysm, BRIAN and COPD. He presents to our facility with complaints weakness and low blood pressure. Patient presents as described above. He tells me he was in his normal state of health until 3 days ago when he began feel weak and fatigued with generalized muscle aches and pains. He had a cough of brownish colored sputum and wheezing. He admitted to shortness of breath on exertion, but denied fevers or chills. He states he laid down to sleep Sunday afternoon proximally 3:00 p.m. and slept the rest of the day and all the way into the following evening. He reports that he has had poor oral intake due to a decreased appetite. He suggests an average of 40 oz of fluids in the last 2 days. He also notes a thick, loose stool for the past 2 days. There was no nausea or vomiting. There is no abdominal pain. Because of his ongoing symptoms, he called [facility] who sent a health nurse visit him. During this visit, his blood pressure was noted to be in the 70s systolic. He was brought tothe emergency room for further evaluation and treatment. Patient reports that he does not always take his prescribed medications as directed. He also continues to smoke. Activity and ambulation seem to worsen his symptoms while rest seems to relieve them. Aside from the above-mentioned symptoms, the patient has no further complaints. Subsequent workup at our facility included a chest x-ray that is pending at this time. Routine labsrevealed leukocytosis at 13.85. Initial lactic acid was 2.9, however, improved to 1.9 with fluid resuscitation. PH was alkalotic at 7.513. Procalcitonin and CRP are pending. There is an acute kidney injury with a BUN of 31, creatinine of 2.0 and GFR 34. Renal function is normal at baseline. There is mild hyponatremia at 129. There is mild hypokalemia at 3.0. Initial high sensitivity troponin is. BNP is. EKG suggests a ventricular paced rhythm at 80 beats per minute with frequent PVCs. [id number] is negative. Urinalysis is negative. Remaining workup is essentially unremarkable. Vital signs reveal an afebrile patient at 36.8 C. Heart rate has fluctuated from 45-90 and is currently 81 and ventricularly paced. Respirations have fluctuated from 14-28 and are currently 28 and nonlabored saturating 97% on room air. Blood pressure has fluctuated from 68/44 to 108/74 and is currently 103/36.MAP has fluctuated from the mid 50's to the high 60's. Most recent MAP is 53. While in the emergency room, the patient received 2 L of normal saline. Patient responds well whilefluid is running, however, tends to dip when fluids are stopped. HOSPITAL COURSE (focused): / At this time difficult to assess whether this is a cardiogenic induced hypotension versus a hypovolemic hypotension. We will continue to hydrate patient's as he stated he recently had a diarrheal episode and we will place a Cardiology consultation while we await echocardiogram to be done to evaluate patient's cardiac status. 5/3 Patient appears euvolemic any tolerated restarting metoprolol, we will restart losartan as well as his torsemide as lower dose. Patient required potassium repletion this morning in on repeat his potassium was 3.6 and he was given another dose of potassium prior to discharge. Discussed plan of care with Cardiology who agreed with changing of medications above and patient will follow up in the outpatient setting as he has had a decrease in his EF from 45% 10 months ago to 35% yesterday. Physical Exam General: Not in acute distress HEENT: Normocephalic, atraumatic. EOMI Cardiac: Normal rhythm and rate. Normal S1-S2. Murmur appreciated Respiratory: Coarse breath sounds heard bilaterally Abdomen: Soft flat abdomen without tenderness on palpation at all 4 quadrants. Normoactive bowel sounds Extremities: No pitting edema bilaterally noted Neuro/Psych: The patient is awake, alert and oriented to person, place, and time with normal speech. Appropriate mood and affect. Operations & Procedures: none Complications: none applicable Significant Lab and Imaging Results: As mentioned above Results Pending at Discharge: Lab Results Pending at Discharge: PT INR Routine BASIC METABOLIC PANEL Routine CBC Routine TROPONIN T, HIGH SENSITIVITY Routine GASTROINTESTINAL PATHOGEN PANEL, STOOL Routine See [facility] for full Linked Orders Report. GASTROINTESTINAL PATHOGEN PANEL PCR Routine GASTROINTESTINAL PATHOGEN PANEL CULTURE Routine MEDICATION UPDATES AT DISCHARGE START taking these medications INSTRUCTIONS naloxone 4 MG/0.1ML Liqd Commonly known as: Narcan Nasal Administer 1 spray into 1 nostril for suspected opioid overdose. Seek immediate medical attention. [email or web address] CHANGE how you take these medications INSTRUCTIONS potassium chloride ER 10 MEQ Tbcr What changed: when to take this Take 2 Tablets by mouth in the morning. Torsemide 10 MG Tablet Commonly known as: Demadex Start taking on: December 08, 2023 What changed: medication strength how much to take how to take this when to take this additional instructions Take 5 Tablets by mouth in the morning. Do not start before December 08, 2023. CONTINUE taking these medications INSTRUCTIONS Albuterol Sulfate (2.5 MG/3ML) 0.083% nebulizer solution Commonly known as: Proventil Notes to patient: Helps open airways Inhale 1 Vial via nebulizer every 4 hours as needed for Wheezing. Allopurinol 100 MG Tablet Commonly known as: Zyloprim Notes to patient: Reduces uric acid that may cause gout or kidney stones Take 2 Tablets by mouth in the morning. ARIPiprazole 2 MG Tablet Commonly known as: Abilify Notes to patient: Helps treat depression, bipolar disorder, and/or other mental health conditions. Take 1 Tablet by mouth in the morning. Baclofen 20 MG Tablet Notes to patient: Helps reduce muscle spasms. Take 1 Tablet by mouth 3 times a day as needed for Muscle spasms. clopidogrel 75 MG Tablet Commonly known as: pLAVix Notes to patient: Helps reduce risk of forming blood clots. TAKE ONE TABLET BY MOUTH ONCE DAILY Desvenlafaxine Succinate ER 100 MG Tb24 Commonly known as: Pristiq Notes to patient: Used to treat depression Take 1 Tablet by mouth in the morning. Digoxin 125 mcg Tablet Commonly known as: Lanoxin Notes to patient: Used to treat cardiac dysrhythmias and heart failure Take 1 Tablet by mouth in the morning. Eliquis 5 MG Tablet Generic drug: Apixaban Notes to patient: Used to minimize risk of forming blood clots TAKE 1 TABLET BY MOUTH TWICE DAILY Famotidine 20 MG Tablet Commonly known as: Pepcid Notes to patient: Helps reduce gastric reflux and treats ulcers. TAKE 1 TABLET BY MOUTH TWICE DAILY (MORNING AND AT BEDTIME) Fluticasone-Salmeterol 250-50 MCG/ACT inhaler Commonly known as: Wixela Inhub Notes to patient: Used to open airway, for the treatment of asthma. Inhale 1 Puff by mouth in the morning and 1 Puff before bedtime. HYDROcodone-Acetaminophen 7.5-325 MG per tablet Notes to patient: Helps reduce severe pain. Take 1 Tablet by mouth every 6 hours as needed for Pain, Severe. losartan 25 MG Tablet Commonly known as: Cozaar Notes to patient: Treats high blood pressure and can reduce the risk of stroke. TAKE ONE TABLET BY MOUTH ONCE DAILY * metoprolol succinate XL 100 MG Tb24 Commonly known as: toPROL XL Notes to patient: Used to treat high blood pressure. TAKE ONE TABLET BY MOUTH ONCE DAILY * metoprolol succinate XL 50 MG Tb24 Commonly known as: Toprol XL Notes to patient: Used to treat high blood pressure and heart failure One tablet by mouth daily at bedtime, this is in addition to the previous prescription for 100 milligrams daily in the morning. [id number] Ethyl Esters 1 g Capsule Commonly known as: Lovaza Notes to patient: supplement Take 2 Capsules by mouth in the morning and 2 Capsules before bedtime. Repatha SureClick 140 MG/ML Soaj Generic drug: evolocumab Notes to patient: Helps reduce risk of heart attack and stroke, lowers cholesterol Inject 140 mg (1 pen) under the skin every 14 days. Spironolactone 25 MG Tablet Commonly known as: Aldactone Notes to patient: Treatment of high blood pressure and fluid retention. TAKE ONE TABLET BY MOUTH ONCE DAILY tamsulosin 0.4 MG Capsule Commonly known as: Flomax Notes to patient: Treatment for enlarged prostate. Take 2 Capsules by mouth every evening. Vitamin C 1000 MG Tablet Notes to patient: supplement Take 1 Tablet by mouth in the morning. * This list has 2 medication(s) that are the same as other medications prescribed for you. Read thedirections carefully, and ask your doctor or other care provider to review them with you. STOP taking these medications Cephalexin 500 MG Capsule Commonly known as: Keflex metOLazone 2.5 MG Tablet Commonly known as: Zaroxolyn predniSONE 20 MG Tabs Tablet Commonly known as: Deltasone SCHEDULED FOLLOW-UP: Future Appointments Appt Date/Time Provider Department 12/12/2023 10:00 AM Valorie Valdivia, [facility] Physical Therapy [facility], [place] 12/12/2023 12:15 PM Xochitl Marina LCSW [facility], [facility] 12/13/2023 9:50 AM Buster Jessica MD [facility] 12/14/2023 11:30 AM Valorie Valdivia, [employer] Physical Therapy [facility], [place] 12/17/2023 11:30 AM Valorie Valdivia, [employer] Physical Therapy [facility], [place] 12/19/2023 10:45 AM Valorie Valdivia, [employer] Physical Therapy [facility], [place] 12/20/2023 1:30 PM Clary Eastman, [facility]; Grisel Richter CRNP [facility], [facility] 12/24/2023 10:45 AM Marleni Quarles, PT Physical Therapy [facility], [place] 12/26/2023 10:00 AM Valorie Valdivia, [employer] Physical Therapy [facility], [place] 01/01/2024 10:00 AM Lisa Tenorio RN [facility] 01/02/2024 10:45 AM Marleni Quarles, PT Physical Therapy [facility], [place] 01/04/2024 10:45 AM Valorie Valdivia, [employer] Physical Therapy [facility], [place] 01/15/2024 10:40 AM Clair Quarles DO [facility] 04/22/2024 9:30 AM [facility] Cardiology, [facility] 05/19/2024 9:30 AM CT1 [facility] Radiology, [facility] Outpatient Follow Up Cardiology Referral OP Other Information Indwelling Devices: LINES ALL Duration Peripheral Line Left;Lower;Posterior Arm 20 Gauge 1 day Vital Signs (last recorded): Most Recent Systolic BP: 103 mmHg (12/07/23 1300) Most Recent Diastolic BP: 49 mmHg (12/07/23 1300) Pulse: 90 (12/07/23 1300) Resp: 22 (12/07/23 1300) Most Recent Temperature: 36.44 C (12/07/23 1300) Weight: 116.1 kg (255 lb 15.3 oz) (12/07/23 0720) SpO2: 96 % (12/07/23 1300) Allergies: Sacubitril, Valsartan, Atorvastatin, Entresto [sacubitril-valsartan], and Simvastatin Activity: as tolerated Diet: age appropriate diet, cardiac diet, and with fluid restriction Code Status: Full Code Condition on Discharge: stable Isolation status: None Cognition: normal HOSPITAL CONSULTS ORDERED: ADULT PHYSICAL THERAPY CONSULT IP ADULT OCCUPATIONAL THERAPY CONSULT IP CARE MANAGEMENT CONSULT IP ADULT PHYSICAL THERAPY CONSULT IP ADULT OCCUPATIONAL THERAPY CONSULT IP CARE MANAGEMENT CONSULT IP CARDIOLOGY CONSULT IP REFERRING PHYSICIAN: Ref: [id number]] NO STREET ADDRESS AVAILABLE None (office) None (fax) PRIMARY CARE PROVIDER: PCP: Buster Anguiano MD [address] [place] [address] (office) [phone] (fax) Note: To contact a physician responsible for this patients hospital care, please call [facility] [phone]. I certify this patient is confined to the home and needs intermittent care home care, physical therapy and/or speech therapy, or continues to need occupational therapy. The patient is under my care and I have authorized services on this plan of care. The clinical findings of decrease in functional mobility secondary to decreased strength, decreased balance, and decreased endurance due to recent hospitalization and overall medical condition support the need for home health, and the patientdemonstrates a considerable and taxing effort when attempting to leave the home. The patient had a [id number] encounter with an allowed provider type on 12/07/2023 and the encounter was related to the primary reason for home health care. Under situations in which I am an acute/post acute facility physician who will not be following the patient's plan of care, I authorized services on this plan ofcare and I transfer the patient for plan of care certification to the primary care physician named below who will follow the patient and update the plan of care. Primary care physician Buster Anguiano MD I spent a total of 45 minutes coordinating, documenting, and providing care for this patient excluding time spent in the performance of separately billed services. documented in this encounter Discharge Instructions * Discharge Instr - AVS* Kalani Lynn MD - 12/07/2023 4:54 PM EDT Your Care Instructions One or more doctors have given you a physical exam, reviewed your symptoms, and asked about your past medical problems. You have had tests as needed. At this time, the doctors feel it is safe for you to go home. It is very important that you follow up with your doctor as directed. If you continue to have symptoms, you may need more tests or treatment. The doctor has checked you carefully, but problems can develop later. If you notice any problems ornew symptoms, get medical treatment right away. Follow-up care is a yip part of your treatment and safety. Be sure to make and go to all appointments, and call your doctor if you are having problems. It's also a good idea to know your test resultsand keep a list of the medicines you take. How can you care for yourself at home? Keep track of any new symptoms or changes in your symptoms. Rest until you feel better. Be safe with medicines. Take your medicines exactly as prescribed. Call your doctor if you think you are having a problem with your medicine. Do not drive after taking a prescription pain medicine. When should you call for help? Call 911 anytime you think you may need emergency care. For example, call if: You passed out (lost consciousness). Call your doctor now or seek immediate medical care if: You have new symptoms like fever, difficulty breathing, vomiting, or rash. You have new or different pain. You are confused and are having trouble thinking clearly. Your symptoms are getting worse. Watch closely for changes in your health, and be sure to contact your doctor if: You do not get better as expected. documented in this encounter H&P Notes * Sundar Temple PA-C - 12/06/2023 12:51 AM EDT Images from the original note were not included. [facility] PRESENTING PROBLEM: Weakness, low blood pressure HPI: Patient is a 73-year-old male with significant past medical history of CAD, atrial fibrillation on Eliquis, HFmrEF, cardiomyopathy, biventricular AICD in- situ, LBBB, hypertension, hyperlipidemia, thoracic aortic aneurysm, BRIAN and COPD. He presents to our facility with complaints weakness and low blood pressure. Patient presents as described above. He tells me he was in his normal state of health until 3 days ago when he began feel weak and fatigued with generalized muscle aches and pains. He had a cough of brownish colored sputum and wheezing. He admitted to shortness of breath on exertion, but denied fevers or chills. He states he laid down to sleep Sunday afternoon proximally 3:00 p.m. and slept the rest of the day and all the way into the following evening. He reports that he has had poor oral intake due to a decreased appetite. He suggests an average of 40 oz of fluids in the last 2 days. He also notes a thick, loose stool for the past 2 days. There was no nausea or vomiting. There is no abdominal pain. Because of his ongoing symptoms, he called [facility] who sent a health nurse visit him. During this visit, his blood pressure was noted to be in the 70s systolic. He was brought tot emergency room for further evaluation and treatment. Patient reports that he does not always take his prescribed medications as directed. He also continues to smoke. Activity and ambulation seem to worsen his symptoms while rest seems to relieve them. Aside from the above-mentioned symptoms, the patient has no further complaints. Subsequent workup at our facility included a chest x-ray that is pending at this time. Routine labsrevealed leukocytosis at 13.85. Initial lactic acid was 2.9, however, improved to 1.9 with fluid resuscitation. PH was alkalotic at 7.513. Procalcitonin and CRP are pending. There is an acute kidney injury with a BUN of 31, creatinine of 2.0 and GFR 34. Renal function is normal at baseline. There is mild hyponatremia at 129. There is mild hypokalemia at 3.0. Initial high sensitivity troponin is. BNP is. EKG suggests a ventricular paced rhythm at 80 beats per minute with frequent PVCs. TNMJ-LTPPD-4 is negative. Urinalysis is negative. Remaining workup is essentially unremarkable. Vital signs reveal an afebrile patient at 36.8 C. Heart rate has fluctuated from 45-90 and is currently 81 and ventricularly paced. Respirations have fluctuated from 14-28 and are currently 28 and nonlabored saturating 97% on room air. Blood pressure has fluctuated from 68/44 to 108/74 and is currently 103/36.MAP has fluctuated from the mid 50's to the high 60's. Most recent MAP is 53. While in the emergency room, the patient received 2 L of normal saline. Patient responds well whilefluid is running, however, tends to dip when fluids are stopped. Subjective Past Medical History: Diagnosis Date AAA (abdominal aortic aneurysm) ([facility]) Anxiety state claustraphobia Atrial fibrillation (HCC) Benign neoplasm of colon BPH (benign prostatic hyperplasia) CAD (coronary artery disease) Cardiomyopathy (HCC) COPD (chronic obstructive pulmonary disease) (HCC) Depressive disorder, not elsewhere classified Dyslipidemia, goal to be determined Heart failure with mildly reduced ejection fraction (HFmrEF) ([facility]) History of tobacco abuse HTN, goal to be determined LBBB (left bundle branch block) Lumbago Malignant melanoma of skin (HCC) Melanoma of Skin Obstructive sleep apnea (adult) (pediatric) severe with hypoxia Peripheral neuropathy Presence of biventricular AICD Pulmonary nodule PVD (peripheral vascular disease) ([facility]) Past Surgical History: Procedure Laterality Date APPLY BONE FIXATION DEVICE,UNIPLANE Right 11/14/2019 APPLICATION OF EXTERNAL FIXATOR UNIPLANE performed by Mayank Friedman MD at OR [facility] BIMALLEOLAR ANKLE FX W/ FIXATION Right 11/27/2019 OPEN TREATMENT BIMALLEOLAR ANKLE FRACTURE performed by Donavan Ramirez Jr., MD at OR [facility] COLONOSCOPY THRU STOMA, W/BIOPSY 03/06/2011 fair prep, polyps x4, path shows adenomatous tissue repeat in 3 years COLONOSCOPY, DIAGNOSTIC (RECTUM) 04/21/2014 hyperplastic polyp, multiple cecal AVM's, repeat 5 yrs/COLONOSCOPY FLEXIBLE PROXIMAL DIAGNOSTIC performed by Jake Montoya MD at ENDOSCOPY [facility] COLONOSCOPY, DIAGNOSTIC (RECTUM) N/A 10/27/2022 [facility], Colonoscopy, multi polyps in cecum, transverse, recto-sigmoid / biopsies benign adenomatous polyp and serrated adenomatous polyps / 3 year recall CORONARY ANGIOGRAPHY W/LEFT HEART CATH Right 02/17/2019 CORONARY ANGIOGRAPHY W/LEFT HEART CATH performed by Winston Mckeon MD at CARDIAC LABS [facility] CORONARY ANGIOGRAPHY W/LEFT HEART CATH Right 10/20/2020 CORONARY ANGIOGRAPHY W/LEFT HEART CATH performed by Winston Mckeon MD at CARDIAC LABS [facility] CORONARY ANGIOGRAPHY W/LEFT HEART CATH Right 10/08/2023 CORONARY ANGIOGRAPHY W/LEFT HEART CATH performed by Thea Wilkes MD at CARDIAC LABS [facility] CORONARY ANGIOGRAPHY W/RIGHT+LEFT CATH 04/23/2012 CORONARY ANGIOGRAPHY W/RIGHT+LEFT CATH performed by Donavan Egan MD at CARDIAC LABS [facility] ENDOVASCULAR REPAIR AORTA/INFRARENAL 2 PROSTHESES N/A 04/15/2018 fenestrated endovascular aortic aneurysm repair, 2 vessel fenestrations (bilateral renal) and SMA scallop performed by Evens Hoyt MD at [facility] INTRAVASCULAR STENT, PERC, FIRST VESSEL OPEN FEMORAL ARTERY EXPOSURE FOR ENDOVASCULAR PROSTHESIS, UNILAT Bilateral 04/15/2018 bilateral femoral artery cutdowns performed by Evens Hoyt MD at OR [facility] REMOVE BONE FIXATION DEVICE Right 11/27/2019 REMOVAL OF EXTERNAL FIXATION performed by Donavan Ramirez Jr., MD at [facility] SACROILIAC JOINT INJECT W/GUIDANCE 02/14/2023 INJECTION SACROILIAC JOINT performed by Rajinder Corado DO at OR [facility] SACROILIAC JOINT INJECT W/GUIDANCE 07/11/2023 INJECTION SACROILIAC JOINT performed by Rajinder Corado DO at OR [facility] Family History Problem Relation Age of Onset Cancer Mother basal cell Cancer Father throat Other (SLEEP) Sister BRIAN Social History Tobacco Use Smoking status: Every Day Current packs/day: 1.00 Average packs/day: 1 pack/day for 52.0 years (52.0 ttl pk-yrs) Types: Cigarettes Smokeless tobacco: Never Tobacco comments: pack per day.10/29/23 Vaping Use Vaping Use: Never used Substance Use Topics Alcohol use: Yes Comment: rare Drug use: No Review of patient's allergies indicates: Allergen Reactions Sacubitril Other Reaction(s): THROAT SWELLING Valsartan Other Reaction(s): THROAT SWELLING Atorvastatin Muscle pain and Unknown Medication intolerance, not an allergy Entresto [Sacubitril-Valsartan] Other (Please comment) Throat swelled Simvastatin Other reaction(s): MUSCLE ACHES MEDICATIONS Torsemide 100 MG Oral Tablet (Demadex) Take 1 tablet by mouth every morning. Take an additional tablet on Sunday, Sunday and Sunday afternoon only. Buster Jessica MD Needs Review Cephalexin 500 MG Oral Capsule (Keflex) Take 1 Capsule by mouth in the morning and 1 Capsule at noon and 1 Capsule before bedtime. Do all this for 10 days. COPD rescue kit. Buster Jessica MD Needs Review Patient not taking: Reported on 11/21/2023 Allopurinol 100 MG Oral Tablet (Zyloprim) Take 2 Tablets by mouth in the morning. Buster Jessica MD Needs Review HYDROcodone-Acetaminophen 7.5-325 MG Oral Tablet Take 1 Tablet by mouth every 6 hours as needed forPain, Severe. Buster Jessica MD Needs Review Igmks-[id number] Ethyl Esters 1 GM Oral Capsule (Lovaza) Take 2 Capsules by mouth in the morning and 2 Capsules before bedtime. Buster Jessica MD Needs Review predniSONE 20 MG Oral Tablet (Deltasone) Take 2 Tablets by mouth daily for 5 days, THEN 1 Tablet daily for 7 days, THEN 0.5 Tablets daily for 8 days. Buster Jessica MD Needs Review Potassium Chloride ER 10 MEQ Oral Tablet Extended Release Take 2 Tablets by mouth in the morning and 2 Tablets before bedtime. Buster Jessica MD Needs Review Tamsulosin HCl 0.4 MG Oral Capsule (Flomax) Take 2 Capsules by mouth every evening. Buster Jessica MD Needs Review Eliquis 5 MG Oral Tablet (Apixaban) TAKE 1 TABLET BY MOUTH TWICE DAILY Donavan Barker DO Needs Review Albuterol Sulfate (2.5 MG/3ML) 0.083% Inhalation Nebulization Solution (Proventil) Inhale 1 Vial via nebulizer every 4 hours as needed for Wheezing. jE Noble MD Needs Review Fluticasone-Salmeterol 250-50 MCG/ACT Inhalation Aerosol Powder Breath Activated (Wixela Inhub) Inhale 1 Puff by mouth in the morning and 1 Puff before bedtime. Ej Noble MD Needs Review metOLazone 2.5 MG Oral Tablet (Zaroxolyn) Take 1 Tablet by mouth once a week. take 30 minutes priorto torsemide Buster Jessica MD Needs Review Desvenlafaxine Succinate ER 100 MG Oral Tablet Extended Release 24 Hour (Pristiq) Take 1 Tablet by mouth in the morning. Buster Jessica MD Needs Review Naloxone HCl 4 MG/0.1ML Nasal Liquid (Narcan Nasal) Administer 1 spray into 1 nostril for suspectedopioid overdose. Seek immediate medical attention. [email or web address] Octavio Hawthorne MD Needs Review Patient not taking: Reported on 10/31/2023 ARIPiprazole 2 MG Oral Tablet (Abilify) Take 1 Tablet by mouth in the morning. Buster Jessica MD Needs Review Digoxin 125 MCG Oral Tablet (Lanoxin) Take 1 Tablet by mouth in the morning. Donavan Barker DO Needs Review Metoprolol Succinate ER 50 MG Oral Tablet Extended Release 24 Hour (Toprol XL) One tablet by mouth daily at bedtime, this is in addition to the previous prescription for 100 milligrams daily in the morning. Donavan Barker DO Needs Review Repatha SureClick 140 MG/ML Subcutaneous Solution Auto-injector (evolocumab) Inject 140 mg (1 pen) under the skin every 14 days. Donavan Barker, DO Needs Review Baclofen 20 MG Oral Tablet Take 1 Tablet by mouth 3 times a day as needed for Muscle spasms. Buster Jessica MD Needs Review Losartan Potassium 25 MG Oral Tablet (Cozaar) TAKE ONE TABLET BY MOUTH ONCE DAILY Mahi Albright PA-C Needs Review Spironolactone 25 MG Oral Tablet (Aldactone) TAKE ONE TABLET BY MOUTH ONCE DAILY Mahi Albright PA-C Needs Review Famotidine 20 MG Oral Tablet (Pepcid) TAKE 1 TABLET BY MOUTH TWICE DAILY (MORNING AND AT BEDTIME) Buster Jessica MD Needs Review Clopidogrel Bisulfate 75 MG Oral Tablet (pLAVix) TAKE ONE TABLET BY MOUTH ONCE DAILY Mahi Albright PA-C Needs Review Metoprolol Succinate ER 100 MG Oral Tablet Extended Release 24 Hour (toPROL XL) TAKE ONE TABLET BY MOUTH ONCE DAILY Buster Jessica MD Needs Review Vitamin C 1000 MG Oral Tablet Take 1 Tablet by mouth in the morning. Patient, History Per Needs Review Patient's past history, medications, and allergies were reviewed. Review of Systems Constitutional: Positive for activity change, appetite change and fatigue. Negative for chills and fever. HENT: Negative. Eyes: Negative. Respiratory: Positive for cough, shortness of breath and wheezing. Brownish colored phlegm Cardiovascular: Negative for chest pain. Gastrointestinal: Positive for diarrhea. Negative for abdominal pain, nausea and vomiting. Endocrine: Negative. Genitourinary: Negative. Musculoskeletal: Positive for arthralgias and myalgias. Skin: Negative. Allergic/Immunologic: Negative. Neurological: Positive for weakness. Hematological: Negative. Psychiatric/Behavioral: Negative. All other systems reviewed and are negative. Objective Physical Exam Most Recent Vital Signs: BP: 103 mmHg/36 mmHg (12/06/23 0000) Pulse: 81 (12/06/23 0000) Temp: 36.78 C (12/05/23 1652) Temp Summary: Temp Min: 36.8 C (98.2 F) Max: 36.8 C (98.2 F) SpO2: 97 % (12/06/23) O2 flow rate: Supplemental O2 Delivery: Room Air, None (12/06/23) Physical Exam Vitals and nursing note reviewed. Constitutional: Appearance: He is obese. He is ill-appearing. HENT: Head: Normocephalic and atraumatic. Right Ear: External ear normal. Left Ear: External ear normal. Nose: Nose normal. Mouth/Throat: Mouth: Mucous membranes are dry. Pharynx: Oropharynx is clear. Eyes: Extraocular Movements: Extraocular movements intact. Conjunctiva/sclera: Conjunctivae normal. Pupils: Pupils are equal, round, and reactive to light. Cardiovascular: Rate and Rhythm: Normal rate and regular rhythm. Pulses: Normal pulses. Heart sounds: Murmur heard. Pulmonary: Effort: Pulmonary effort is normal. Breath sounds: Wheezing present. No rhonchi. Comments: Lung sounds diminished occasional wheezes Abdominal: General: Bowel sounds are normal. Palpations: Abdomen is soft. Musculoskeletal: General: Normal range of motion. Cervical back: Neck supple. Right lower leg: No edema. Left lower leg: No edema. Skin: General: Skin is warm and dry. Neurological: General: No focal deficit present. Mental Status: He is alert and oriented to person, place, and time. Mental status is at baseline. Cranial Nerves: No cranial nerve deficit. Sensory: No sensory deficit. Psychiatric: Mood and Affect: Mood normal. Behavior: Behavior normal. Thought Content: Thought content normal. Judgment: Judgment normal. STUDIES: Encounter Orders Labs and other studies reviewed with pertinent findings noted below: Basic Metabolic Panel [[id number]] (Abnormal) Collected: 12/05/23 2344 Updated: 12/06/23 0005 Specimen Source: Blood, Venous BUN 29 High mg/dL Creatinine 1.7 High mg/dL Estimated Glomerular Filtration Rate 41 Low mL/min Sodium 129 Low mmol/L Potassium 3.0 Low mmol/L Chloride 89 Low mmol/L CO2 24 mmol/L Anion Gap 16 High mmol/L Glucose 112 mg/dL Calcium 7.9 Low mg/dL Lactate, Whole Blood [[id number]] (Normal) Collected: 12/05/23 2233 Updated: 12/05/23 2250 Specimen Source: Blood, Venous Lactate, Whole Blood 1.9 mmol/L Urinalysis with Microcopic Exam [[id number]] (Normal) Collected: 12/05/231999 Updated: 12/05/232027 Specimen Type: Urine Color, Urine Yellow Clarity, Urine Clear Glucose, Urine Negative mg/dL Bilirubin, Urine Negative Ketone, Urine Negative mg/dL Specific [place], Urine 1.009 Blood, Urine Negative pH, Urine 5.5 Units Protein, Urine Negative mg/dL Urobilinogen, Urine 0.2 mg/dL Nitrite, Urine Negative Esterase, Urine Negative RBC, Urine 0-2 /HPF WBC, Urine 0-2 /HPF Bacteria, Urine 0-25 /HPF SARS-CoV-2 (COVID-19), NAAT : [[id number]] (Normal) Collected: 12/05/231807 Updated: 12/05/231852 Specimen Type: Upper Respiratory Specimen Source: Nasal Turbinate SARS-CoV-2 (COVID-19) Result Negative Blood Gas, Venous [[id number]] (Abnormal) Collected: 12/05/231818 Updated: 12/05/23 184 Specimen Source: Blood, Venous Temperature 37.0 C pH, Venous 7.513 High units pCO2, Venous 36.8 Low mmHg pO2, Venous 62.3 High mmHg Base Excess, Venous 6.3 High mmol/L HGB 11.9 Low g/dL Oxyhemoglobin, Venous 86.8 High % total Hgb Carboxyhemoglobin, Whole Blood 4.2 High % total Hgb Methemoglobin, Whole Blood 0.6 % total Hgb Reduced Hemoglobin, Venous 8.4 % total Hgb O2 Content, Venous 14.6 %vol Bicarbonate, Whole Blood 29.5 mmol/L Comprehensive Metabolic Panel [[id number]] (Abnormal) Collected: 12/05/231722 Updated: 12/05/231751 Specimen Source: Blood, Venous BUN 31 High mg/dL Creatinine 2.0 High mg/dL Estimated Glomerular Filtration Rate 34 Low mL/min Sodium 127 Low mmol/L Potassium 3.1 Low mmol/L Chloride 83 Low mmol/L CO2 26 mmol/L Anion Gap 18 High mmol/L Glucose 134 High mg/dL Albumin 3.9 g/dL AST 15 U/L Alkaline Phosphatase 70 U/L Bilirubin, Total 0.6 mg/dL Calcium 9.2 mg/dL Protein 7.2 g/dL ALT 13 U/L Lipase [[id number]] (Normal) Collected: 12/05/231722 Updated: 12/05/231751 Specimen Source: Blood, Venous Lipase 37 U/L CBC with WBC Differential [[id number]] (Abnormal) Collected: 12/05/231722 Updated: 12/05/231737 Specimen Source: Blood, Venous Narrative: The following orders were created for panel order CBC WITH WBC DIFFERENTIAL. Procedure Abnormality Status --------- ------ CBC[[id number]] Abnormal Final result DIFFERENTIAL, AUTOMATED[[id number]] Abnormal Final result Please view results for these tests on the individual orders. CBC [[id number]] (Abnormal) Collected: 12/05/231722 Updated: 12/05/231737 Specimen Source: Blood, Venous WBC 13.85 High K/uL RBC 4.41 M/uL HGB 12.7 Low g/dL HCT 38.4 Low % MCV 87.1 fL MCH 28.8 pg MCHC 33.1 g/dL RDW 16.1 % PLT 348 K/uL MPV 10.3 fL Differential, Automated [[id number]] (Abnormal) Collected: 12/05/231722 Updated: 12/05/231737 Specimen Source: Blood, Venous WBC 13.85 High K/uL Neutrophils % 81.7 High % Lymphocytes % 9.0 Low % Monocytes % 8.8 % Eosinophils % 0.4 % Basophils % 0.1 % Absolute Neutrophils 11.32 High K/uL Absolute Lymphocytes 1.24 K/ul Absolute Monocytes 1.22 High K/uL Absolute Eosinophils 0.06 K/uL Absolute Basophils 0.01 K/uL Lactate, Whole Blood [[id number]] (Abnormal) Collected: 12/05/231722 Updated: 12/05/231735 Specimen Source: Blood, Venous Lactate, Whole Blood 2.9 High Assessment and Plan IMPRESSION: Principal Problem: Hypotension Active Problems: Hypovolemia WALDEMAR (acute kidney injury) (HCC) Hyponatremia Hypokalemia Leukocytosis Generalized weakness Resolved Problems: * No resolved hospital problems. * DIFFERENTIAL AND PLAN: Admit to inpatient, telemetry, CCU Hypotension with hypovolemia and acute kidney injury in the setting of HFmrEF -as per HPI -greater than 0.3 mg/dL worsening of renal function -renal function normal at baseline -current renal function BUN 31, creatinine 2.0 and GFR 34 -blood pressure remains soft, fluctuating from the 60s over 40s to 108/74. Currently 103/36 with a MAP of 53 status post 2LNS resuscitation -patient with HFmrEF and ejection fraction of 45%. Has evidence of inferior/posterior wall motion abnormality / hypokinesis consistent with his known occlusion of the RCA. Left atrium is moderately enlarged -continue with gentle IV fluid hydration for now -hold blood pressure medications for now. Restart when medically appropriate -given the patient's fluid resuscitation, he maybe diuresis -BNP 1080 -cardiac echo for the morning to guide therapy -heart failure quality measures -consider pressor support -q.1 hour vital signs -monitor urine output -daily weight -strict I&Os -consider Rangel catheter -monitor electrolytes -avoid nephrotoxic agents when possible Hyponatremia, hypokalemia -potassium 3.0, replenish -sodium 127 -urine osmolality, urine sodium, serum osmolality -monitor electrolytes -likely secondary to over-diuresis and poor oral intake Leukocytosis -WBCs 13.85 -initial lactic acid 2.9 with follow-up of 1.9 after fluid resuscitation -pH 7.5 -CRP 55 -afebrile -urinalysis negative for infection -chest x-ray pending -holding antibiotic coverage for now Generalized weakness -as per HPI -PT/OT -care management consult -cardiac echo for the morning -supportive care CHRONIC PROBLEMS CAD Paroxysmal atrial fibrillation HFmrEF Cardiomyopathy Biventricular AICD in-situ LBBB Hypertension Hyperlipidemia PVD Thoracic aortic aneurysm BRIAN Pulmonary nodule COPD History is tobacco use BPH Gout Osteoarthritis Chronic low back pain Peripheral neuropathy History skin cancer Anxiety Depression All other pre-hospital problems at baseline. Diet: Heart healthy, 1800 mL fluid restricted GI prophylaxis: Omeprazole DVT/PE prophylaxis: Continue Eliquis Code status: Full code Patient was seen and evaluated bedside. Plan of care established in collaboration with Dr. Lynn. I spent a total of 63 minutes coordinating, documenting, and providing care for this patient excluding time spent in the performance of separately billed services or time spent by another provider/QHP. PHARMACOLOGIC VTE PROPHYLAXIS: Eliquis Tabs CODE STATUS: Full Code EXPECTED DISCHARGE DATE: No information available Associated attestation - Kalani Lynn MD - 12/06/2023 6:22 PM EDT ASSESSMENT Hypotension Hypokalemia Acute kidney injury History CAD Atrial fibrillation on Eliquis Biventricular AICD Hypertension Hyperlipidemia Thoracic aortic aneurysm BRIAN COPD PLAN At this time difficult to assess whether this is a cardiogenic induced hypotension versus a hypovolemic hypotension. We will continue to hydrate patient's as he stated he recently had a diarrheal episode and we will place a Cardiology consultation while we await echocardiogram to be done to evaluate patient's cardiac status. documented in this encounter Procedure Notes * Marek Shell MD - 12/05/2023 5:18 PM EDTAssociated Order(s): EKG REASON FOR STUDY: Weakness CONCLUSIONS: Warning: interpretation of this ECG, although attempted, may be adversely affected by data quality Ventricular-paced rhythm with frequent Premature ventricular complexes Biventricular pacemaker detected Abnormal ECG When compared with ECG of 03-Nov-2023 02:02, Premature ventricular complexes are now Present Vent. rate has increased by 8 bpm Ventricular Rate: 88 Atrial Rate: 441 QRS Duration: 148 QT/QTc: 438/529 ms P-R-T [place]: 0 : -75 : 86 degrees documented in this encounter Consult Notes * Adelso Oh, PT - 12/06/2023 3:24 PM EDTAssociated Order(s): ADULT PHYSICAL THERAPY CONSULT IP; ADULT PHYSICAL THERAPY CONSULT IP GENERAL EVALUATION - Physical Therapy [address] [id number] Name: Dago Gunter Location: [facility] MH2 [id number] Date: 12/06/2023 Time: 4:58 PM Dago Gunter is a/an 73 year old male. Patient Status: Inpatient Insurance: Payor: MEDICARE Plan: MEDICARE A AND B Product Type: *No Product type* Payor: [employer] Plan: [id number] Product Type: *No Product type* Patient Seen: at bedside, nursing cleared patient for therapy Patient Identified By: Name, ID Band and Date Diagnosis: hypotension (12/06/231511) Status of treatment: Evaluation completed (12/06/231511) Orders: PT evaluation and treatment (12/06/231511) Weight Bearing Status: Weight bearing as tolerated (12/06/231511) Precautions: Safety (12/06/231511) Total Treatment Time--free text: 11 (12/06/231511) Past Medical History: Past Medical History: Diagnosis Date AAA (abdominal aortic aneurysm) (HCC) Anxiety state claustraphobia Atrial fibrillation (HCC) Benign neoplasm of colon BPH (benign prostatic hyperplasia) CAD (coronary artery disease) Cardiomyopathy (HCC) COPD (chronic obstructive pulmonary disease) (HCC) Depressive disorder, not elsewhere classified Dyslipidemia, goal to be determined Heart failure with mildly reduced ejection fraction (HFmrEF) (HCC) History of tobacco abuse HTN, goal to be determined LBBB (left bundle branch block) Lumbago Malignant melanoma of skin (HCC) Melanoma of Skin Obstructive sleep apnea (adult) (pediatric) severe with hypoxia Peripheral neuropathy Presence of biventricular AICD Pulmonary nodule PVD (peripheral vascular disease) (HCC) Past Surgical History: Past Surgical History: Procedure Laterality Date APPLY BONE FIXATION DEVICE,UNIPLANE Right 11/14/2019 APPLICATION OF EXTERNAL FIXATOR UNIPLANE performed by Mayank Friedman MD at [facility] BIMALLEOLAR ANKLE FX W/ FIXATION Right 11/27/2019 OPEN TREATMENT BIMALLEOLAR ANKLE FRACTURE performed by Donavan Ramirez Jr., MD at [place] [facility] COLONOSCOPY THRU STOMA, W/BIOPSY 03/06/2011 fair prep, polyps x4, path shows adenomatous tissue repeat in 3 years COLONOSCOPY, DIAGNOSTIC (RECTUM) 04/21/2014 hyperplastic polyp, multiple cecal AVM's, repeat 5 yrs/COLONOSCOPY FLEXIBLE PROXIMAL DIAGNOSTIC performed by Jake Montoya MD at ENDOSCOPY [facility] COLONOSCOPY, DIAGNOSTIC (RECTUM) N/A 10/27/2022 [facility], Colonoscopy, multi polyps in cecum, transverse, recto-sigmoid / biopsies benign adenomatous polyp and serrated adenomatous polyps / 3 year recall CORONARY ANGIOGRAPHY W/LEFT HEART CATH Right 02/17/2019 CORONARY ANGIOGRAPHY W/LEFT HEART CATH performed by Winston Mckeon MD at [facility] CORONARY ANGIOGRAPHY W/LEFT HEART CATH Right 10/20/2020 CORONARY ANGIOGRAPHY W/LEFT HEART CATH performed by Winston Mckeon MD at [facility] CORONARY ANGIOGRAPHY W/LEFT HEART CATH Right 10/08/2023 CORONARY ANGIOGRAPHY W/LEFT HEART CATH performed by Thea Wilkes MD at [facility] CORONARY ANGIOGRAPHY W/RIGHT+LEFT CATH 04/23/2012 CORONARY ANGIOGRAPHY W/RIGHT+LEFT CATH performed by Donavan Egan MD at [facility] ENDOVASCULAR REPAIR AORTA/INFRARENAL 2 PROSTHESES N/A 04/15/2018 fenestrated endovascular aortic aneurysm repair, 2 vessel fenestrations (bilateral renal) and SMA scallop performed by Evens Hoyt MD at OR [facility] INTRAVASCULAR STENT, PERC, FIRST VESSEL OPEN FEMORAL ARTERY EXPOSURE FOR ENDOVASCULAR PROSTHESIS, UNILAT Bilateral 04/15/2018 bilateral femoral artery cutdowns performed by Evens Hoyt MD at OR [facility] REMOVE BONE FIXATION DEVICE Right 11/27/2019 REMOVAL OF EXTERNAL FIXATION performed by Donavan Ramirez Jr., MD at OR [facility] SACROILIAC JOINT INJECT W/GUIDANCE 02/14/2023 INJECTION SACROILIAC JOINT performed by Rajinder Corado DO at OR [facility] SACROILIAC JOINT INJECT W/GUIDANCE 07/11/2023 INJECTION SACROILIAC JOINT performed by Rajinder Corado DO at OR [facility] Subjective: Dago is seen in room and is found sitting at edge of bed, awake, alert, willing to participate. He reports he is eager to go home. Social History/Disposition Lives with: Spouse (12/06/231511) Assistance available: Yes (12/06/231511) Dwelling type: Multi-story home (12/06/231511) Entry steps: Other - Describe (lives in 3rd floor of his hotel) (12/06/231511) Inside steps: 10 - 15 (12/06/231511) Bedroom location: 3rd floor (12/06/231511) Bath location: 2nd floor shower (donw 8 steps to get to bathroom.) (12/06/231511) Prior Level of Function Reported by: Patient (12/06/231511) Ambulation: Ambulatory without device (12/06/231511) Devices at home: No device (12/06/231511) Observations Consciousness: Alert (12/06/231511) Orientation: Oriented times 4 (12/06/231511) Psychosocial: Patient can communicate basic needs;Patient can converse in a social setting (12/06/231511) Sitting Posture: Forward head;Rounded shoulders (12/06/231511) Standing Posture: Forward head;Rounded shoulders (12/06/231511) Pain: No complaints of pain Range of Motion Range of Motion: WFL (12/06/231511) Strength Assessment Strength Assessment: WNL (12/06/231511) P.T. Bed Mobility Supine-Sit: Modified Independent (12/06/231511) Sit-Supine: Modified Independent (12/06/231511) Transfers Sit-Stand: Modified Independent (12/06/231511) Stand-Sit: Modified Independent (12/06/231511) W/C-Bed/Mat: Modified Independent (12/06/231511) Ambulation: Distance ambulated (feet): 30' Assistive Device: No device Assist: Modified Independent Balance Sit (Static): Normal (12/06/231511) Sit (Dynamic): Good (12/06/231511) Stand (Static): Normal (stable against sternal and lateral nudges. Negatvie posterior release test.) (12/06/231511) Stand (Dynamic): Good (able to reach across center of gravity without loss of balance.) (12/06/231511) Patient and or Family Goal(s): to get well and to return home Patient Education Safety Awareness: Patient verbalizes insight of current deficits;Patient demonstrates carryover of insight during functional tasks;Patient can communicate basic needs (12/06/231511) Topic of Education: Safety with mobility and Use of assistive device Method of Education: Verbal discussion and explanation provided to patient: demonstrated the exercise and or task Treatment Provided: Evaluation Low Complexity 12 minutes - 45213: Patient was cooperative, motivated, and alert during treatment session. Low complexity evaluation performed with indication of no personal factors or comorbidities that impact plan of care. Alarm Status Patient positioned in: Bed (12/06/231511) With: Call griffin in reach (12/06/231511) Treatment Status: Treatment at bedside (12/06/231511) Assessment: Dago is a 73 y.o. male who is admitted with hypoxia. He demonstrates independence with bed mobility, transfers and ambulation. He should be safe to return to his familiar home environment. No skilled inpatient PT services necessary at this time. Treatment Plan: Discontinue from Physical Therapy Services AM PAC Score with Stairs: 23 15:12 - 15:24 * Mayank Huang, OT - 12/06/2023 1:38 PM EDTAssociated Order(s): ADULT OCCUPATIONAL THERAPY CONSULT IP PROGRESS NOTE - OT Service [address] [id number] Name: Dago Gunter Location: [address] Date: 12/06/2023 Time: 1:38 PM Duplicate orders, OT eval has been completed. * Mayank Huang, OT - 12/06/2023 1:31 PM EDTAssociated Order(s): ADULT OCCUPATIONAL THERAPY CONSULT IP GENERAL EVALUATION - Occupational Therapy [address] [address] Name: Dago Gunter Location: [address] Date: 12/06/2023 Time: 1:31 PM Dago Gunter is a 73 year old male. Patient Status: Inpatient Insurance: Payor: MEDICARE Plan: MEDICARE A AND B Product Type: *No Product type* Payor: [employer] Plan: [id number] Product Type: *No Product type* Patient Seen: at bedside, nursing cleared patient for therapy Patient Identified By: Name, ID Band and Date Diagnosis: hypotension (12/06/23 1308) Status of treatment: Evaluation completed (12/06/23 1308) Orders: OT evaluation and treatment (12/06/23 1308) Weight Bearing Status: Weight bearing as tolerated (12/06/23 1308) Precautions: Safety (12/06/23 1308) Total Treatment Time: 16 (12/06/23 130) Past Medical History: Past Medical History: Diagnosis Date AAA (abdominal aortic aneurysm) ([facility]) Anxiety state claustraphobia Atrial fibrillation (HCC) Benign neoplasm of colon BPH (benign prostatic hyperplasia) CAD (coronary artery disease) Cardiomyopathy (HCC) COPD (chronic obstructive pulmonary disease) (HCC) Depressive disorder, not elsewhere classified Dyslipidemia, goal to be determined Heart failure with mildly reduced ejection fraction (HFmrEF) (HCC) History of tobacco abuse HTN, goal to be determined LBBB (left bundle branch block) Lumbago Malignant melanoma of skin (HCC) Melanoma of Skin Obstructive sleep apnea (adult) (pediatric) severe with hypoxia Peripheral neuropathy Presence of biventricular AICD Pulmonary nodule PVD (peripheral vascular disease) (HCC) Past Surgical History: Past Surgical History: Procedure Laterality Date APPLY BONE FIXATION DEVICE,UNIPLANE Right 11/14/2019 APPLICATION OF EXTERNAL FIXATOR UNIPLANE performed by Mayank Friedman MD at OR [facility] BIMALLEOLAR ANKLE FX W/ FIXATION Right 11/27/2019 OPEN TREATMENT BIMALLEOLAR ANKLE FRACTURE performed by Donavan Ramirez Jr., MD at OR [facility] COLONOSCOPY THRU STOMA, W/BIOPSY 03/06/2011 fair prep, polyps x4, path shows adenomatous tissue repeat in 3 years COLONOSCOPY, DIAGNOSTIC (RECTUM) 04/21/2014 hyperplastic polyp, multiple cecal AVM's, repeat 5 yrs/COLONOSCOPY FLEXIBLE PROXIMAL DIAGNOSTIC performed by Jake Montoya MD at [facility]OSCOPY [facility] COLONOSCOPY, DIAGNOSTIC (RECTUM) N/A 10/27/2022 [facility], Colonoscopy, multi polyps in cecum, transverse, recto-sigmoid / biopsies benign adenomatous polyp and serrated adenomatous polyps / 3 year recall CORONARY ANGIOGRAPHY W/LEFT HEART CATH Right 02/17/2019 CORONARY ANGIOGRAPHY W/LEFT HEART CATH performed by Winston Mckeon MD at [facility] CORONARY ANGIOGRAPHY W/LEFT HEART CATH Right 10/20/2020 CORONARY ANGIOGRAPHY W/LEFT HEART CATH performed by Winston Mckeon MD at [facility] CORONARY ANGIOGRAPHY W/LEFT HEART CATH Right 10/08/2023 CORONARY ANGIOGRAPHY W/LEFT HEART CATH performed by Thea Wilkes MD at [facility] CORONARY ANGIOGRAPHY W/RIGHT+LEFT CATH 04/23/2012 CORONARY ANGIOGRAPHY W/RIGHT+LEFT CATH performed by Donavan Egan MD at [facility] ENDOVASCULAR REPAIR AORTA/INFRARENAL 2 PROSTHESES N/A 04/15/2018 fenestrated endovascular aortic aneurysm repair, 2 vessel fenestrations (bilateral renal) and SMA scallop performed by Evens Hoyt MD at [facility] INTRAVASCULAR STENT, PERC, FIRST VESSEL OPEN FEMORAL ARTERY EXPOSURE FOR ENDOVASCULAR PROSTHESIS, UNILAT Bilateral 04/15/2018 bilateral femoral artery cutdowns performed by Evens Hoyt MD at OR [facility] REMOVE BONE FIXATION DEVICE Right 11/27/2019 REMOVAL OF EXTERNAL FIXATION performed by Donavan Ramirez Jr., MD at OR [facility] SACROILIAC JOINT INJECT W/GUIDANCE 02/14/2023 INJECTION SACROILIAC JOINT performed by Rajinder Corado DO at [facility] SACROILIAC JOINT INJECT W/GUIDANCE 07/11/2023 INJECTION SACROILIAC JOINT performed by Rajinder Corado DO at OR [facility] Social History/Disposition Lives with: Spouse (12/06/23 130) Assistance available: Yes (12/06/23 130) Dwelling type: Multi-story home (12/06/231307) Entry steps: Other - Describe (lives in 3rd floor of his hotel) (12/06/231307) Inside steps: 10 - 15 (12/06/231307) Bedroom location: 3rd floor (12/06/23 130) Bath location: 2nd floor shower (12/06/231307) Prior Level of Function Reported by: Patient (12/06/23 130) Ambulation: Ambulatory without device (12/06/23 130) Grooming: Independent (12/06/23 130) Bathing: Independent (12/06/231307) Dressing: Independent (12/06/231307) Feeding: Independent (12/06/231307) Toileting: Independent (12/06/231307) Meal Prep: Independent (12/06/23 130) Homemaking: Independent (12/06/231307) Shopping: Independent (12/06/23 130) Medication Management: Assistance (12/06/23 130) Money Management: Independent (12/06/23 130) Occupation/Leisure Skills: Employed (12/06/23 130) Driving: Yes (12/06/231307) Durable Medical Equipment at home: No device (12/06/231307) Subjective: patient seen for OT eval, dx hypotension Pain: No complaints of pain Observations Consciousness: Alert (12/06/23 130) Orientation: Oriented times 4 (12/06/23 130) Psychosocial: Patient can converse in a social setting (12/06/23 130) Sitting posture: Forward head (12/06/231307) Standing posture: Forward head (12/06/231307) Safety awareness: The Patient verbalizes insight of current deficits. (12/06/231307) Other Findings Endurance: Fair (12/06/231307) Light touch sensation: Intact (12/06/231307) Proprioception: Intact (12/06/231307) Coordination: Intact (12/06/231307) Tone: Normal tone (12/06/231307) Current Functional Status: Bilateral Upper Extremity Range of Motion: WNL (12/06/231307) Strength Assessment: WNL (12/06/231307) Self Care Feeding: Independent (12/06/231307) Dressing Lower Body: Supervision (Please comment) (12/06/231307) Functional Ambulation Assistive Device: No device (12/06/231307) Distance in feet:: 75 (12/06/231307) Level of Assistance: Modified Independent (12/06/231307) Bed Mobility Supine-Sit: Modified Independent (12/06/231307) Sit-Supine: Modified Independent (12/06/231307) OT Transfers Sit-Stand: Modified Independent (12/06/231307) Stand-Sit: Modified Independent (12/06/231307) Balance Sit (Static): Good (12/06/231307) Sit (Dynamic): Good (12/06/231307) Stand (Static): Good (12/06/231307) Stand (Dynamic): Not Tested (12/06/231307) Alarm Status Patient positioned in: Bed (12/06/231307) With: Call griffin in reach (12/06/231307) Patient and Family Goals: to get well and to return home Patient Education Education Topic: Role of OT (12/06/231307) Method of Education: Verbalized to patient (12/06/231307) Education Provided to: Patient (12/06/231307) Response to Education: Receptive and agreeable to education (12/06/231307) Preferred learning method: Combination (12/06/231307) Treatment Provided: Evaluation Moderate Complexity 16 minutes - 86622: Patient was cooperative and pleasant during treatment session. Moderate complexity evaluation performed and 3-5 activity limitations were identified, including no current needs. Minimal or moderate modification of the functionaltask was necessary to complete the evaluation. Deficits Requiring O.T. Treatment: Goals: 1x eval Goal Time Frame: 1x eval Assessment: patient seen for OT reinier, dx hypotension. Patient was able to complete bed mobility andtransfers without assistance. He was able to don grippy socks. He ambulated approximately 75 feet without assistance. UE strength and AROM are intact. Patient states that he is at his baseline for functional tasks. No OT needs at this time. Would consider home with post-acute care services which may include outpatient therapy or home health. The level of care will be determined in collaboration with the patient, family/caregiver, and care team members. Treatment Plan: Discontinue Occupational Therapy services Anticipated Frequency (on eval): 1 to 3 times per week (12/06/231307) AM-PAC Help From Another Person Eating Meals: None (12/06/231307) Help From Another Person Taking Care of Personal Grooming: None (12/06/231307) Help From Another Person To Put On/Take Off Upper Body Clothing: None (12/06/231307) Help From Another Person To Put On/Take Off Lower Body Clothing: None (12/06/231307) Help From Another Person Toileting: None (12/06/231307) Help From Another Person Bathing: A little (12/06/23 130) OT AM-PAC Score: 23 (12/06/23 130) OT AM-PAC t-Scale Score: 51.12 (12/06/231307) HLM (Highest Level of Mobility) Goal: Level 7 walk 25 feet or more (12/06/23 0800) A portion of this AM-PAC assessment not scored based on functional assessment due to full ADL not assessed upon evaluation; rather clinical decision making utilized based on current findings and/or prior level of function. Please refer to future AM-PAC calculations of functional ability as they become available. documented in this encounter Nursing Notes * Manolo Thompson RN - 12/06/2023 2:02 AM EDT Dual Licensed Skin Assessment completed by Manolo LIMA and Glo RN. The patient is/has a N/A Skin Breakdown (includes non blanchable erythema): No Patient refused to take his shorts off. Bruising of different stages of healing on his upper extremities. Old Abrasion on right elbow. documented in this encounter ED Notes * María Castaneda DO - 12/06/2023 1:23 AM EDT HISTORY OF PRESENT ILLNESS Dago Gunter is a 73 year old male who presents to the ED for evaluation of Hypotension. The patient was seen at 12/05/23 165. The patient is a 73-year-old male with a extensive past medical history including AAA, AFib, CAD, COPD, heart failure with mildly reduced EF, hypertension, LBBB presenting to the ED via his daughter after home health nurse found to be hypotensive. The patient endorses he has had diarrhea over the past couple of days. The patient reported generalized fatigue. Otherwise, the patient denied any other acute symptoms. The patient denies headaches, lightheadedness, dizziness, visual changes, chest pain, nausea, vomiting, abdominal pain, melena, hematochezia, recentillness or fevers. No recent antibiotics. Review of Systems Constitutional: Positive for fatigue. Negative for appetite change, chills, diaphoresis and fever. HENT: Negative for congestion. Eyes: Negative for visual disturbance. Respiratory: Negative for chest tightness and shortness of breath. Cardiovascular: Negative for chest pain and palpitations. Gastrointestinal: Positive for diarrhea. Negative for abdominal distention, abdominal pain, blood in stool, nausea and vomiting. Genitourinary: Negative for dysuria. Musculoskeletal: Negative for neck pain and neck stiffness. Skin: Negative for color change and pallor. Neurological: Negative for weakness, light-headedness and headaches. Hematological: Negative for adenopathy. The patient's allergies, past history, and medications were reviewed. PHYSICAL EXAM Initial Vitals (see all): BP 88/56 | Pulse 80 | Resp 18 | Temp 98.2 | O2 95 %, Room Air, None | Weight 112.04 kg | Height 180.3 cm | BMI 34.45 kg/m2 Initial Pain Assessment (see all): 0 (no pain)/10 ([facility] Adult Scale 0-10) Physical Exam Vitals and nursing note reviewed. Constitutional: General: He is not in acute distress. Appearance: Normal appearance. He is not ill-appearing, toxic-appearing or diaphoretic. HENT: Head: Normocephalic and atraumatic. Right Ear: External ear normal. Left Ear: External ear normal. Nose: Nose normal. Mouth/Throat: Mouth: Mucous membranes are dry. Eyes: General: Right eye: No discharge. Left eye: No discharge. Conjunctiva/sclera: Conjunctivae normal. Cardiovascular: Rate and Rhythm: Normal rate. Pulses: Normal pulses. Heart sounds: No friction rub. Pulmonary: Effort: Pulmonary effort is normal. Breath sounds: Normal breath sounds. Abdominal: General: Abdomen is protuberant. There is no distension. Tenderness: There is no abdominal tenderness. There is no guarding or rebound. Musculoskeletal: General: No swelling or tenderness. Normal range of motion. Cervical back: Normal range of motion and neck supple. Right lower leg: No edema. Left lower leg: No edema. Skin: General: Skin is warm. Capillary Refill: Capillary refill takes less than 2 seconds. Neurological: General: No focal deficit present. Mental Status: He is alert and oriented to person, place, and time. Psychiatric: Mood and Affect: Mood normal. Behavior: Behavior normal. PROCEDURES AND TREATMENTS ED Orders | ED Results MEDICAL DECISION MAKING Nursing notes and vital signs were reviewed. ED consults were placed. ED Course as of 12/06/23 0136 SunDecember 05, 2023 171 EKG revealed a ventricular paced rhythm at 88bpm, frequent PVCs. Left axis deviation, no acuteischemic changes. When compared to prior EKG PVCs are now present, otherwise no acute changes. [BC] 1744 Lactate, Whole Blood(!) Elevated at 2.9 [BC] 1744 CBC with WBC Differential(!) Mild leukocytosis, hgb 12.7, normal platelets. No acute change from prior labs. [BC] 1758 Lipase normal [BC] 1759 Comprehensive Metabolic Panel(!) Acute kidney injury present, hyponatremia at 127 , hypochloremia at 83, anion gap elevated at 18, no transaminitis, normal bilirubin. [BC] 1854 Blood Gas, Venous(!) Respiratory alkalosis noted on VBG presented [BC] 1999 CT Chest/Abdomen/Pelvis without IV Contrast without Oral Contrast 1. No acute findings on noncontrast imaging. 2. Mild cardiomegaly, similar to prior. 3. 11 mm superior segment right lower lobe nodule is stable since recent imaging however increased since the PET-CT in 2017, continued follow-up recommended. 4. Additional findings as described. [BC] 2035 Called transfer center to speak with hospitalist at [facility], for transfer to [facility]. [BC] 2036 Urinalysis with Microcopic Exam No signs of infection [BC] 2301 Lactate, Whole Blood normal [BC] ED Course User Index [BC] Son Desouza PA-C Differential Diagnoses Based on my history, physical exam, and evaluation, the differential includes, but is not limited, to the following diagnoses: anemia, dehydration, dysrhythmia, electrolyte disorder, orthostatic hypotension and Diarrhea illness, acute kidney injury, sepsis, pneumonia, UTI. The patient is a 73-year-old male with a extensive past medical history including AAA, AFib, CAD, COPD, heart failure with mildly reduced EF, hypertension, LBBB presenting to the ED via his daughter after home health nurse found to be hypotensive. The patient endorses he has had diarrhea over the past couple of days. Upon exam the patient was in no acute distress. The patient was hypotensive but otherwise had stable vitals. Initial blood pressure 88/56. He was afebrile at this time. Physical exam was largely unremarkable. Please see physical exam as above. Labs and imaging were obtained to assess for acute pathology regarding the patient's hypotension. EKG revealed a ventricular paced rhythm at 88bpm, frequent PVCs. Left axis deviation, no acute ischemic changes. When compared to prior EKG PVCs are now present, otherwise no acute changes. CT Chest/Abdomen/Pelvis revealed: 1. No acute findings on noncontrast imaging. 2. Mild cardiomegaly, similar to prior. 3. 11 mm superior segment right lower lobe nodule is stable since recent imaging however increased since the PET-CT in 2017, continued follow-up recommended. Mild leukocytosis, hgb 12.7, normal platelets. No acute change from prior labs 1 month ago. The patient also had acute kidney injury with electrolyte derangements including hyponatremia with her 27, hypokalemia hypokalemia at 3.1 and hypochloremia at 83, no transaminitis, normal bilirubin. In the ED the patient received 2 L of IV fluids and started on 75 mL IV fluids per hour. Initial lactate was elevated at 2.9, repeat lactate had improved to 1.9 after fluids. Blood pressure also showed modest improvement after the administration of the fluids. Based on the patient's history of present illness and workup thus far it appears the patient has a prerenal kidney injury and hypotension subsequent to hypovolemia via GI losses. The patient was discussed with the hospitalist Sundar Temple PA-C who was agreeable to admit the patient to the CCU. Patient was agreeable with the plan and all questions were answered prior to the patient. Amount and/or Complexity of Data Reviewed Labs: ordered. Decision-making details documented in ED Course. Radiology: ordered. Decision-making details documented in ED Course. ECG/medicine tests: ordered. Risk Decision regarding hospitalization. Clinical Impressions Hypovolemia WALDEMAR (acute kidney injury) (HCC) Disposition Admitted. I discussed the management of this patient with the admitting provider and I made a decision to admit the patient. Admission Order Ordered Status . 12/06/23 0030 Admit for Inpatient Services (incl ZPO) ONCE Ordered María Castaneda was the attending physician who supervised the care of this patient. Son Desouza PA-C ATTENDING ATTESTATION I have discussed the patient's management with the provider listed above and agree with the note, findings, and plan of care. I personally made/approved the management plan and take responsibility for patient management. * Moshe Lee RN - 12/05/2023 4:53 PM EDT Patient sent by home health nurse for hypotension documented in this encounter Miscellaneous Notes * Pt Handout (on AVS) - Charlette Sol RN - 12/07/2023 4:59 PM EDT Images from the original note were not included. [id number] Naloxone Nasal [place] [employer]: Kloxxado, Narcan Uses For drug overdose. Instructions Alternate nostrils each time you use the medicine. Keep the medicine at room temperature. Avoid heat and direct light. This medicine should only be used by a person who has been trained to recognize when and how it should be used. Ask your doctor, nurse or pharmacist to show you how to use this medicine correctly. Family, friends, and coworkers should all learn how to give this medicine to the patient. Read and carefully follow package instructions for preparing, using and cleaning the pump. Leave the container in the box until a dose is needed. Get medical help right away after giving the first dose. If symptoms return, use another dose in the other nostril every 2-3 minutes. Change sides of the nose with each dose. Drug interactions can change how medicines work or increase risk for side effects. Tell your healthcare providers about all medicines taken. Include prescription and grih-agd-njajijb medicines, vitamins, and herbal medicines. Speak with your doctor or pharmacist before starting or stopping any medicine. Do not share this medicine with anyone who has not been prescribed this medicine. Cautions Tell your doctor and pharmacist if you ever had an allergic reaction to a medicine. Your ability to stay alert or to react quickly may be impaired by this medicine. Do not drive or operate machinery until you know how this medicine will affect you. Do not drink beverages with alcohol while on this medicine. Tell the doctor or pharmacist if you are , planning to be , or . Side Effects The following is a list of some common side effects from this medicine. Please speak with your doctor about what you should do if you experience these or other side effects. diarrhea dry nose fever or chills headaches high blood pressure pain in the joints irritation inside the nose nausea rapid heartbeat runny nose shakiness sneezing stomach pain Call your doctor or get medical help right away if you notice any of these more serious side effects: seizures A few people may have an allergic reaction to this medicine. Symptoms can include difficulty breathing, skin rash, itching, swelling, or severe dizziness. If you notice any of these symptoms, seek medical help quickly. Extra Please speak with your doctor, nurse, or pharmacist if you have any questions about this medicine. [email or web address] IMPORTANT NOTE: This document tells you briefly how to take your medicine, but it does not tell youall there is to know about it. Your doctor or pharmacist may give you other documents about your medicine. Please talk to them if you have any questions. Always follow their advice. There is a more complete description of this medicine available in [place]. Scan this code on your smartphone or tablet or use the web address below. You can also ask your pharmacist for a printout. If you have any questions, please ask your pharmacist. The display and use of this drug information is subject to Terms of Use. Copyright(c) 2023 [employer]. The [employer]. All rights reserved. This information is not intended as a substitute for professional medical care. Always follow your healthcare professional's instructions. * Communication - Tulio Aguilar MD - 12/07/2023 4:22 PM EDT Mr. Gunter is a 73-year-old male with significant past medical history of CAD, atrial fibrillation on Eliquis, HFrEF, biventricular AICD, hypertension, hyperlipidemia, thoracic aortic aneurysm, OSAand COPD. He presented with complaints of weakness and low blood pressure accompanied by acute renal insufficiency. This episode was preceded by diarrheal illness and non compliance with meds. Since his admission he has received IVF and his renal function and hypotension have improved. And he has no angina or other cardiac symptoms per review of chart. Review of recent cardiac investigations: Echo from 12/06/23 showed unchanged LVEF with similar WMA as study from 09/2023. Differences in reported LVEF are part of interobserver variability but actual imaging is similar. 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 Debby are 48 and 46 The patient likely had dehydration-induced hypotension and SILVIA that has now resolved with fluids. His vitals are stable and there are no data that suggest that he is in cardiogenic shock. Once he is euvolemic, his home HF medications can be resumed. Please arrange outpatient cardiology follow up. Ipaged the attending provider to discuss these recommendations. * Ancillary Progress Note - Sophia Sheffield BSW - 12/07/2023 4:15 PM EDT CARE MANAGEMENT - ADULT DISCHARGE NOTE [facility] [address] [facility] [address] Name: Dago Gunter Location: [place] [address] CCU- Date: 12/07/2023 Time: 4:15 PM The following coordination of care and discharge plan has been coordinated with the care team, patient, family and/or caregiver according to the patients needs and preferences. Discharge Discharge Second Notice Important Message from Medicare delivered: No (12/07/231540) Discharge Transportation: Family/Friends drive (12/07/231540) Date of scheduled discharge transportation: 12/07/23 (12/07/23 154) Time of scheduled discharge transportation: 1630 (12/07/23 154) Patient declined post-hospital transition of care recommendation: N/A (12/07/23 154) Final Discharge Plan (Complete only at time of Discharge): Home - Self Care (12/07/23 154) Per discussion with Hospitalist, pt is slated to DC home this date with no new needs identified by the Tx Team for justowriter operator to arrange. Pt reports to owning a CPAP/BIPAP but not utilizing. Pt report to owning and using a nebulizer. Pt is expected to resume same at discharge. [employer] will be mailing a rolling walker directly to the Pt's home. Pt reports to being active with OP PT of which is provided by [facility] and is expected to resume same upon DC. Pt has an appointment scheduled for 12/11. Pt is aware of the DC plans and is in agreement with same. Utility Lineman will continue to follow for any additional DC needs not yet identified. * Pt Handout (on AVS) - Gina Cuevas RN - 12/07/2023 3:04 PM EDT [id number] Discharge Instructions for Low Blood Pressure (Hypotension) You have been diagnosed with low blood pressure (hypotension). When you have hypotension, your blood pressure is lower than normal. Low blood pressure can make you feel dizzy or faint. This conditionis sometimes a side effect of taking certain medicines, including medicines for high blood pressure(hypertension). It can also result from medical conditions such as dehydration. Hypotension has many possible causes. Sometimes the cause is unknown, and you will need follow- up visits and tests. Home care These steps can help manage your condition: Follow your healthcare provider?s instructions. Go to all your follow up appointments. Rest in bed and ask for help with daily activities until you feel better. You may need to slowlyincrease the amount of time you spend sitting or doing light activity. Don?t drive while your blood pressure is not controlled. Be careful when you get up from sitting or lying down. o Take your time. Sudden movements can cause dizziness or fainting. o When you first sit up after lying down, be sure to sit up for at least 30 seconds or so before getting up to walk. o Place your feet on the floor before standing. Tell your healthcare provider about the medicines you are taking. Many kinds of medicines trigger low blood pressure. Limit your alcohol intake to no more than 2 drinks a day for men and 1 drink a day for women. Alcohol can dehydrate you even further. It can also interfere with the effectiveness of medicines. Prevent dehydration by drinking plenty of fluids, unless otherwise instructed by your healthcareprovider. Learn to take your own blood pressure. Keep a record of your results. Ask your healthcare provider which readings mean that you need medical attention. Tell your family members to call an ambulance if you become unconscious. Ask them to learn CPR. Follow-up care Make a follow-up appointment, or as advised. Call 911 Call 911 right away if you have: Chest pain Shortness of breath When to call your healthcare provider Call your healthcare provider right away if you have any of the following: Dizziness or fainting spells Black, maroon, or tarry stools Irregular heartbeat Neck pain or stiffness Severe upper back pain Diarrhea or vomiting that doesn?t go away Inability to eat or drink Burning sensation when you pee Urine with a strong, unpleasant odor Fainting with exercise Last Reviewed Date: 10/04/202119996381-2537 The [employer]. All rights reserved. This information is not intended as a substitute for professional medical care. Always follow your healthcare professional's instructions. * Pt Handout (on AVS) - Gina Cuevas RN - 12/07/2023 3:01 PM EDT Images from the original note were not included. 54982 Coping with Heart Failure It?s normal to feel sad or down at times when you?re living with heart failure. Some medicines can also affect your mood. Following your treatment plan may seem difficult at times. If you feel overwhelmed, just focus on one day at a time. Don?t be afraid to ask others for help when you need it. Ways to feel better Try not to withdraw from family and friends, even if you're finding it hard to talk to them. They can still be a good source of support. To feel better, you can also: Spend time doing things you enjoy. This may include taking part in a favorite hobby, meditating,praying, or spending time with people you care about. Find activities that make you happy. And makethose a priority. Share what you learn about heart failure with the people in your life. Invite family members along when you visit your healthcare provider. This will help you feel supported. And it will help you discuss the care plan you've agreed upon with your provider. Think about joining a support group for people with heart failure. It may be easier to talk to people who know firsthand what you?re going through. They can offer advice and share stories. You maywant to ask loved ones to join you for a meeting. Asking for help Having heart failure doesn?t mean that you have to feel bad all the time. Think about talking to your healthcare provider or a therapist if: You feel worthless or helpless, or are thinking about suicide. These are warning signs of depression. Treatment can help you feel better. When depression is under control, your overall health may also improve. You feel anxious about what will happen to your loved ones if your health gets worse. Taking care of legal arrangements, such as a living will and durable power of insurance attorney, can help you feel moresecure about the future. You feel stressed or alone. Social support helps reduce stress and helps you stick with your healthy lifestyle changes. Without social support, you may end up back in the hospital. Last Reviewed Date: 11/05/202319990528-2041 The [employer]. All rights reserved. This information is not intended as a substitute for professional medical care. Always follow your healthcare professional's instructions. * Ancillary Progress Note - Dunia Easton RDN - 12/07/2023 9:31 AM EDT CLINICAL NUTRITION ADULT RISK ASSESSMENT [place] [id number] [facility] [address] Name: Dago Gunter Location: [address] Date: 12/07/2023 Time: 9:31 AM How patient was identified (select 2): date and Name BRENDA Gunter is a 73 year old male being assessed for clinical nutrition risk related to reduced dietary intake and unintentional weight loss Primary diagnosis: Hypotension Other pertinent information: Patient was seen during rounds, per MST interview , decreased po intake and weight loss. The patients po intake has improved. Tolerating 75% of meals per I & O flow sheet. No significant weight loss.Reports does not care for heart healthy diet. No nutritional intervention is indicated at this time. Anthropometrics Measurements Admission weight (for dietitians): 255 lb 15.3 oz. Height: 170.2 cm (5' 7") (12/06/23 1400) Weight: 116.1 kg (255 lb 15.3 oz) (12/07/23 0720) BMI: 40.32 (12/06/23 1400) Usual Body Weight or EDW for Dialysis Patients: 255 - 260 lb Diet: Heart Healthy, 2 gm Sodium Previously followed diet: Regular Food Allergies/Intolerances: none Oral Nutrition Supplement (ONS): N/A Pertinent medications/vitamins/minerals/supplements: pertinent medications reviewed RISK FACTORS: Adult Energy Intake: No significant decrease Interpretation of Weight Change: No recent/significant weight change Skin: Intact- per skin integumentary / NUTRITION RISK CATEGORY: Nutrition Risk Category: Low/Moderate (0-1 factors) Clinical Nutrition Recommendations: Diet: Continue current nutrition plan NUTRITION INTERVENTION/PLAN: Continue current care plan Will follow and adjust nutritional plan as medical condition requires. Please contact for change(s)in patient condition requiring earlier intervention. Dunia Easton RDN,LDN Clinical Dietitian II [facility][note 3] * Care Plan - Promise Tenorio RN - 12/07/2023 6:52 AM EDT Clinical Goal(s): Patient will maintain SBP of 90 or greater this shift. (12/06/23 2300) Possible barriers to meeting goal(s)/advancing plan of care: hypotension; hypovolemia; hypertensivemeds Stability of the patient: Moderately stable - low risk of patient condition declining or worsening Summary regarding today's goal(s): Not Met: Only once was SBP < 90 @ 85/55 with recheck 125/81. Patient was given Toprol XL last evening, so BP was affected by that. Recommendations: Continue to monitor VS as ordered. Restart meds as tolerated. * Care Plan - Gina Cuevas RN - 12/06/2023 6:46 PM EDT Clinical Goal(s): Pt will remain free from falls during this shift. (12/06/23 0700) Possible barriers to meeting goal(s)/advancing plan of care: decline in condition Stability of the patient: Moderately stable - low risk of patient condition declining or worsening Summary regarding today's goal(s): Met: . Recommendations: Continue fall risk interventions. * Ancillary Progress Note - Hailey Manjarrez RN - 12/06/2023 1:47 PM EDT CARE MANAGEMENT - ADULT INITIAL SCREENING [place] [id number] [facility] [address] Name: Dago Gunter Location: [address] Date: 12/06/2023 Time: 1:47 PM Discussed patient with the interdisciplinary care team. This Flight Operations Engineer performed a chart review and met with patient at bedside to complete admission screen and assessed needs for transition planning. The account executive healthcare role and services were explained and emotional support was provided. Chief Complaint: Hypotension Pt describes having an intact family support system. Pt's medical decision maker has been identified as being Ganesh, who is involved with the DC planning process. Pt denies a Hx of MH. Pt denies being followed by psychiatrist or any prior Hx of behavioral health. Pt denies any current or prior Hx of substance abuse. Pt reports being able to read and write. Pt denies difficulty managing own medications. Pt's primary pharmacy has been identified as being [facility]. Pt denies difficulty completing ADLs prior to admission. Pt reports to owning a CPAP/BIPAP but not utilizing. Pt report to owning and using a nebulizer. Pt is expected to resume same at discharge. Prior Living Arrangements What was your living situation prior to admission/observation?: With Spouse (12/06/23139) Living Quarters: House (12/06/231322) Number of steps to enter living quarters:: 20 (12/06/231322) Do you have serious difficulty walking or climbing stairs? (5 years old or older): No (12/06/23139) History of falling: No (12/06/23 0800) Prior Level of Functioning Describe the patient's ability prior to admission/observation to perform ADLs: Performs independently (12/06/23139) Describe the patient's mobility status prior to admission: Patient ambulates independently (12/06/23139) Patient uses assistive device: No (12/06/23139) Caregiver Information Patient Contacts Name Relation Home Work Mobile Ganesh Gunter S Spouse [phone] Lili Gunter Adult Child [phone] Mary Gunter Adult Child [phone] Risk Stratification/Psychosocial/Care Gaps Risk Stratification Psycho Social / Medical Concerns Identified: Adjustment to illness/injury;Multiple Comorbidities (12/06/231322) Accessed Neighborly to connect patients to social care resources: No (12/06/231322) OBRA or OPTIONS needed for placement: No (12/06/231322) Readmission Risk Score: 16.52 (12/06/23 1201) AM-PAC Score With Stairs : 23 (12/06/23 0800) Prior to Admission Services Services Prior to Admission SILK OPENER Services (Services received within the last 30 days with exception, Psych within last two years): Durable Medical Equipment;[facility] (12/06/23 132) SILK OPENER Durable Medical Equipment (DME) in home: CPAP/BiPAP/Home Vent;Nebulizer;Other - Comment (Urinal) (12/06/23 132) DME Name: [facility] (12/06/23 132) [place] Dept[employer] of Aging (PDA) Waiver Program: N/A (12/06/231322) SILK OPENER Transportation (Services received within the last 30 days): Patient drives self;Family/Friends Personal Vehicle (12/06/231322) Outpatient Flight Operations Engineer: Patient Care Team: Lisa Tenorio RN as Er Physician ([facility]) Patient/Family Expectations: To return home Once deemed medically appropriate, it is anticipated patient will DC home with needs pending continued medical work-up/evaluations/findings. Pt reports to owning a CPAP/BIPAP but not utilizing. Pt report to owning and using a nebulizer. Pt is expected to resume same at discharge. Per the recommendation of the Tx Team, the Pt is agreeable to HH/PT/OT services of which the Pt wasagreeable and chose [facility]. [facility] will be mailing a rolling walker directly to the Pt's home. Utility Lineman will continue to meet with treatment team in order to discuss DC planning/needs. Utility Lineman will continue to follow for any identified needs and or concerns which may arise. For further screening information, please refer to the Care Management flow document. * Care Plan - Manolo Thompson RN - 12/06/2023 3:03 AM EDT Clinical Goal(s): Patient will remain free from falls (12/06/23 0145) Possible barriers to meeting goal(s)/advancing plan of care: Patient moves a lot independently, Stability of the patient: Moderately stable - low risk of patient condition declining or worsening Summary regarding today's goal(s): Met: Recommendations: use three side rails at all times, Remind patient to use call griffin when he needs something * Ancillary Progress Note - Toro Regan. CHRISTINA Oden - 12/06/2023 2:44 AM EDT PATIENT DRIVEN PROTOCOL - Respiratory Care Services [facility] [address] [facility] [address] Name: Dago Gunter Location: [place] [address] CCU- Date: 12/06/2023 Time: 2:44 AM Patient Driven Protocol Summary: Initial evaluation performed. This Treatment Plan and medications will be reviewed by the Primary Care Team for any contraindications. Respiratory Care Treatment Plan Aerosol Therapy Treatment:: Hand Held Nebulizer Tx PRN with Albuterol Sulfate: Unit dose 0.083%. to reduce work of breathing and improve pulmonary gas exchange. Additional Aerosolized Treatments: Inhaler(s) PRN with Breo Ellipta (Fluticasone furoate 200 mcg and Vilanterol 25 mcg inhalation powder) / 1 inhalation . to suppress bronchial inflammation and edema by the use of systemic steroid sparing therapy. . The patient will be re-evaluated: within 48 hours. The Triage Level is: (Assessment Score = 6 -10) Level 4. Triage Level Definitions: Level 1 Severe Respiratory/Airway Compromise Level 2 Moderate Respiratory/Airway Compromise or high risk for pulmonary complications Level 3 Mild Respiratory/Airway Compromise or moderate risk for pulmonary complications Level 4 Episodic Respiratory/Airway Compromise or low risk for pulmonary complications Level 5 No Respiratory/Airway Compromise Triage 1 Triage 2 Triage 3 Triage 4 Triage 5 greater than 20 16 - 20 11 - 15 6 - 10 0 - 5 Medical Record Assessment Clinical Findings Pulmonary Status: 2 - Smoking more than or equal to 1 pack/day Surgical Status: 0 - No Surgical History Chest X-Ray: 1 - Chronic Changes or CHF Assessment Score: 3 Patient Assessment Clinical Findings Respiratory Pattern: 0 - RR 12 - 20; Patient only gets breathless with strenuous exercise. Breath Sounds: 2 - Diminished bilaterally Cough Effectiveness: 0 - Strong non-productive Sputum Production: 0 - No sputum production Level of Activity: 1 - Ambulatory with assist O2 needed to keep SpO2 greater than or equal to 92%: 0 - Room Air Assessment Score: 3 Total Assessment Score: 6 Breath Sounds: Inspiratory and expiratory diminished bilaterally.. Cough and Sputum: No cough was present.. CXR: IMPRESSION: 1. No acute findings on noncontrast imaging. 2. Mild cardiomegaly, similar to prior. 3. 11 mm superior segment right lower lobe nodule is stable since recent imaging however increased since the PET-CT in 2017, continued follow-up recommended. 4. Additional findings as described. Vital Signs: Resp: 15 (12/06/23139) Pulse: 86 (12/06/23139) Temp: 36.4 C (97.5 F) (12/06/23139) BP: 102/56 (12/06/23139) SpO2: 97 % (12/06/23139) Primary Service: Hospitalists. Admitting Diagnosis: Hypovolemia [E86.1] Pulmonary Diagnosis: COPD. Prescriptions/Home Medications/Durable Medical Equipment: Patient takes Albuterol mdi prn and wixela 250/ 50 ordered bid for patient . Recommended New home medications/durable medical equipment/outpatient pulmonary/sleep referral tbd. * ED Scrap Iron Loader Note - Kae Mccann RN - 12/06/2023 12:31 AM EDT Pt is admitted but the inpatient ccu bed is not ready * ED Scrap Iron Loader Note - Hannah Li RN - 12/05/2023 5:31 PM EDT Pt aware a urine sample is ordered and will make staff aware when he can void. documented in this encounter Plan of Treatment Upcoming Encounters Date Type Department Care Team (Late st Contact Info) Description 12/12/2023 10:00 AM EDT Rehab Services Physical Therapy [address] [phone] Valorie Valdivia, SILK OPENER [address] [place] [phone] 12/12/2023 12:15 PM EDT Home Visit [facility], [facility] [address] [place] [address] Xochitl Mraina, [facility] [address] [place] [address] 12/13/2023 9:50 AM EDT Office Visit [address] [phone] Buster Jessica MD [address] [place] [phone] 12/14/2023 11:30 AM EDT Rehab Services Physical Therapy [address] [phone] Valorie Valdivia, SILK OPENER [address] [place] [phone] 12/17/2023 11:30 AM EDT Rehab Services Physical Therapy [address] [phone] Valorie Valdivia, SILK OPENER [address] [place] [address] 12/19/2023 10:45 AM EDT Rehab Services Physical Therapy [address] [phone] Valorie Valdivia, SILK OPENER [address] [place] [address] 12/20/2023 1:30 PM EDT Telemedicine [facility], [address] [place] [address] Grisel Richter CRNP [address] [place] [address] Clary Eastman, Community Health Floor Renovator [address] [place] [address] 12/24/2023 10:45 AM EDT Rehab Services Physical Therapy [address] [phone] Marleni Quarles, PT [address] [place] [phone] 12/26/2023 10:00 AM EDT Rehab Services Physical Therapy [address] [phone] Valorie Valdivia, SILK OPENER [address] [place] [address] 01/01/2024 10:00 AM EDT Home [facility], [facility] [address] [place] [address] Lisa Tenorio RN [address] [place] [address] 01/02/2024 10:45 AM EDT Rehab Services Physical Therapy [address] [phone] Marleni Quarles, PT [address] [place] [address] 01/04/2024 8:25 AM EDT Hospital Encounter OR [facility], Operating Room [facility] [address] [place] [phone] Freeman Beaulieu DO [address] [place] [phone] 01/04/2024 8:25 AM EDT - 01/04/2024 8:50 AM EDT Surgery OR [facility], Operating Room [facility] [address] [place] [phone] Freeman Beaulieu, DO [address] [place] [phone] INJECTION SACROILIAC JOINT 01/04/2024 10:45 AM EDT Rehab Services Physical Therapy [address] [place] [phone] Valorie Valdivia, [address] [place] [address] 01/15/2024 10:40 AM EDT Office Visit [facility] [address] [place] [phone] Clair Quarles, DO [address] [place] [address] 04/22/2024 9:30 AM EDT Cardiac Studies Cardiology, [facility] [address] [place] [address] [facility] [address] [place] [address] 05/19/2024 9:30 AM EDT Appointment Radiology, [id number] [place] [address] Scheduled Orders Name Type Priority Associated Diagnoses Orde r Schedule GASTROINTESTINAL PATHOGEN PANEL, STOOL Lab Routine One Time for 1 Occurrences starting 12/05/2023 until 12/05/2023 GASTROINTESTINAL PATHOGEN PANEL PCR Lab Routine Once for 1 Occur rences starting 12/05/2023 until 12/05/2023 GASTROINTESTINAL PATHOGEN PANEL CULTURE Lab Routine Once for 1 Occur rences starting 12/05/2023 until 12/05/2023 TROPONIN T, HIGH SENSITIVITY Lab Routine Perform Now for 1 Occurrences starting 12/05/2023 until 12/05/2023 Scheduled Procedures Name Priority Associated Diagnoses Date/Ti me INJECTION SACROILIAC JOINT Inflammation of sacroiliac joint (HCC) 01/04/2024 8:25 AM EDT COLONOSCOPY FLEXIBLE PROXIMAL DIAGNOSTIC Recall History of colon polyps Scheduled Referrals Name Type Priority Associated Diagnoses Orde r Schedule CARDIOLOGY REFERRAL OP Referral Within 10 days (routine) Heart failure (HCC) Ordered: 12/07/2023 Health Maintenance Due Date Last Done Comments Sigmoidoscopy 1994 Fecal Occult Blood Test 08/20/2010 08/20/2009 *ADVANCE DIRECTIVE NOT ON FILE 05/28/2019 COVID-19 Vaccine ( season) 2023 11/08/2020, 10/08/2020 DISCUSS TOBACCO CESSATION (REFER TO SMARTSET #1710) 06/02/2023 06/02/2022, 07/21/2020 Depression, Most Recent Score >= 10 (will fire each visit until score < 10) 08/30/2023 08/29/2023 Influenza Vaccine (FLU shot) (Season Ended) 2024 05/11/2022, 06/09/2021, 04/13/2020, Additional history exists GFR 12/06/2024 12/07/2023, 09/2023, 12/05/2023, Additional history exists O2 ASSESSMENT COMPLETED IN PAST YEAR FOR COPD 12/06/2024 12/07/2023 Cologuard 10/10/2025 10/10/2022, 0308/2022, 10/04/2022, Additional history exists Albumin/Creatinine Ratio 06/06/2026 [...] this encounter Medical Devices Implanted Type Area Distributed Generation Project Manager Device Identifier Shelf Expiration Date Model / Serial / Lot 32mm X 109mm, Zenith Fenestrated Aaa Endovascular Proximal Body Graft, Two Proximal Internal Stent Implanted:Qty: 1 on 04/15/2018 by Evens Hoyt MD at [place] [facility] N/A: Aorta [facility] 03/20/2021 LISA-P-2- [id number] / / [id number] Stent Graft [id number] - [id number] - [id number] Implanted:Qty: 1 on 04/15/2018 by Evens Hoyt MD at OR [facility] Right: Renal Artery GETINGE : MAQUET 11/30/2020 [id number] / [id number] / [id number] Stent Graft [id number] - [id number] - [id number] Implanted:Qty: 1 on 04/15/2018 by Evens Hoyt MD at OR [facility] Right: Renal Artery GETINGE : MAQUET 11/30/2020 [id number] / [id number] / [id number] 28mm X 76mm Distal, 12mm Ipsilateral Leg, Zenith Fenestrated Aaa Endovascular Distal Bifurcated Body Graft Implanted:Qty: 1 on 04/15/2018 by Evens Hoyt MD at OR [facility] N/A: Aorta [employer] 03/20/2021 LISA-D-12 -28-76-C / / [id number] Graft Iliac Leg Spirlz [id number] - [id number] Implanted:Qty: 1 on 04/15/2018 by Evens Hoyt MD at OR [facility] Left: Iliac [employer] 09/14/2020 [id number] / / [id number] Graft Iliac Leg Spirlz [id number] - [id number] Implanted:Qty: 1 on 04/15/2018 by Evens Hoyt MD at OR [facility] Right: Iliac [employer] 11/09/2020 [id number] / / [id number] Transfixation Pin 6mm 294.950 - [id number] Implanted:Qty: 1 on 11/14/2019 by Mayank Friedman MD at OR [facility] Right: Ankle SYNTHES 294.950 / / Description:transfixation pi n Screw Schanz [id number] - [id number] Implanted:Qty: 2 on 11/14/2019 by Mayank Friedman MD at OR [facility] Right: Leg Lower SYNTHES 294.786SH A / / Description:self drilling sh antz screws 5.0mm x 200mm [place] Trauma 2.7 Lock Screw 16mm Implanted:Qty: 2 on 11/27/2019 by Donavan Ramirez Jr., MD at OR [facility] Right: Ankle ESTHELA : TRAUMA [id number] / / Description:hardware set Esthela Trauma 2.7 Lock Screw 14mm Implanted:Qty: 1 on 11/27/2019 by Donavan Ramirez Jr., MD at OR [facility] Right: Ankle ESTHELA : TRAUMA [id number] / / [place]hela Trauma 3.5 Screw 14mm Implanted:Qty: 1 on 11/27/2019 by Donavan Ramirez Jr., MD at OR [facility] Right: Ankle ESTHELA : TRAUMA [id number] / / Description:hardware set [place] Trauma 3.5 Screw 18mm Implanted:Qty: 1 on 11/27/2019 by Donavan Ramirez Jr., MD at OR [facility] Right: Ankle ESTHELA : TRAUMA [id number] / / Description:hardware set [place] 3.5 Lockscrew 16mm Implanted:Qty: 1 on 11/27/2019 by oDnavan Ramirez Jr., MD at OR [facility] Right: Ankle [id number] / / Esthela 2.0 Plate Implanted:Qty: 1 on 11/27/2019 by Donavan Ramirez Jr., MD at OR [facility] Right: Ankle [id number] / / [place] 2.0 Lock Screw Implanted:Qty: 2 on 11/27/2019 by Donavan Ramirez Jr., MD at OR [facility] Right: Ankle [id number] / / [place] 2.0 Lock Screw Implanted:Qty: 1 on 11/27/2019 by Donavan Ramirez Jr., MD at OR [facility] Right: Ankle [id number] / / Esthela 2.0 Lock Screw Implanted:Qty: 1 on 11/27/2019 by Donavan Ramirez Jr., MD at OR [facility] Right: Ankle [id number] / / Plate Fib 5h - [id number] Implanted:Qty: 1 on 11/27/2019 by Donavan Ramirez Jr., MD at OR [facility] Right: Ankle ESTHELA : TRAUMA / / Description:hardware set documented as of this encounter Procedures Procedure Name Priority Date/Time Associated Diagnosis Comments POTASSIUM Routine 12/07/2023 12:50 PM EDT BASIC METABOLIC PANEL Routine 12/07/2023 6:05 AM EDT PT INR Routine 12/07/2023 6:05 AM EDT CBC Routine 12/07/2023 6:05 AM EDT ECHO, COMPLETE (2D), TRANS-THORACIC Routine 12/06/2023 2:58 PM EDT Heart failure (HCC) TROPONIN T, HIGH SENSITIVITY Routine 12/06/2023 5:48 AM EDT BASIC METABOLIC PANEL Routine 12/06/2023 5:48 AM EDT PT INR Routine 12/06/2023 5:48 AM EDT PHOSPHORUS Routine 12/06/2023 5:48 AM EDT CBC Routine 12/06/2023 5:48 AM EDT MAGNESIUM Routine 12/06/2023 5:48 AM EDT XR CHEST 1 VIEW STAT 12/06/2023 4:52 AM EDT OSMOLALITY, SERUM Routine 12/06/2023 1:2 0 AM EDT TROPONIN T, HIGH SENSITIVITY Add-on 12/05/2023 11:44 PM EDT PROCALCITONIN Add-on 12/05/2023 11:44 PM EDT CRP (INFLAMMATORY MARKER) Add-on 12/05/2023 11:44 PM EDT BNP (NT-PROBNP) Add-on 12/05/2023 11:44 PM EDT HEPATIC FUNCTION PANEL Add-on 11:44 PM EDT BASIC METABOLIC PANEL STAT 12/05/2023 11:44 PM EDT CK Add-on 12/05/2023 11:44 PM EDT PHOSPHORUS Add-on 12/05/2023 11:44 PM EDT TSH Add-on 12/05/2023 11:44 PM EDT MAGNESIUM Add-on 12/05/2023 11:44 PM EDT DIGOXIN LEVEL Add-on 12/05/2023 11:44 PM EDT LACTATE,WHOLE BLOOD STAT 12/05/2023 1 0:33 PM EDT URINALYSIS WITH MICROSCOPIC EXAM STAT 12/05/2023 8:00 PM EDT SODIUM, RANDOM URINE Add-on 12/05/2023 8:00 PM EDT OSMOLALITY, URINE Add-on 12/05/2023 8:[address] CHEST/ABDOMEN/PELVIS WITHOUT IV CONTRAST WITHOUT ORAL CONTRAST Routine 12/05/2023 7:10 PM EDT BLOOD GAS, VENOUS STAT 12/05/2023 6:1 9 PM EDT SARS-COV-2 (COVID-19), NAAT STAT 12/05/2023 6:08 PM EDT DIFFERENTIAL, AUTOMATED STAT 12/05/2023 5:23 PM EDT COMPREHENSIVE METABOLIC PANEL STAT 12/05/2023 5:23 PM EDT CBC STAT 12/05/2023 5:23 PM EDT LIPASE STAT 12/05/2023 5:23 PM EDT LACTATE,WHOLE BLOOD Routine 12/05/2023 5 :23 PM EDT CBC STAT 12/05/2023 5:23 PM EDT HC ECG TRACING ONLY STAT 12/05/2023 5 :18 PM EDT documented in this encounter Results * POTASSIUM (12/07/2023 12:50 PM EDT) [facility] Potassium 3.6 3.5 - 5.1 mmol/L 12/07/2023 1:42 PM EDT LABORATORY [facility] Blood Venous blood specimen / Unknown Venipuncture / Unknown 12/07/2023 12:50 PM EDT 12/07/2023 1:26 PM EDT Kalani Lynn MD LAB BLOOD ORDERABLES LABORATORY [address] [address] * PT INR (12/07/2023 6:05 AM EDT) Prothrombin Time 14.5 11.6 - 15.2 seconds 12/07/2023 6:58 AM EDT LABORATORY [facility] INR 1.1 0.8 - 1.2 12/07/2023 6:58 AM EDT LAB[facility]ATORY [facility] Blood Venous blood specimen / Unknown Venipuncture / Unknown 12/07/2023 6:05 AM EDT 12/07/2023 6:46 AM EDT Narrative LABORATORY [facility] - 12/07/2023 6:58 AM EDT Warfarin Therapy INR: 2.0-3.0 conventional anticoagulation INR: 2.5-3.5 high intensity anticoagulation Sundar Temple PA-C LAB BLOOD ORDERABLE S LABORATORY [address] [address] * (ABNORMAL) BASIC METABOLIC PANEL (12/07/2023 6:05 AM EDT) Pathologist [facility] BUN 19 6 - 20 mg/dL 12/07/2023 7:15 AM EDT LABORATORY [facility] Creatinine 0.9 0.6 - 1.2 mg/dL 12/07/2023 7:15 AM EDT LAB[facility]ATORY [facility] Estimated Glomerular Filtration Rate 86 >=60 mL/min 12/07/2023 7:15 AM EDT LAB[facility]ATORY [facility] Comment:eGFR is calculated b ased on the CKD-EPI 2020 equation Sodium 135 135 - 146 mmol/L 12/07/2023 7:15 AM EDT LAB[facility]ATORY [facility] Potassium 3.3(L) 3.5 - 5.1 mmol/L 12/07/2023 7:15 AM EDT [facility] Chloride 96(L) 98 - 107 mmol/L 12/07/2023 7:15 AM EDT [facility]ATORY [facility] CO2 25 22 - 32 mmol/L 12/07/2023 7:15 AM EDT [facility] Anion Gap 14 7 - 15 mmol/L 12/07/2023 7:15 AM EDT [facility] Glucose 145(H) 70 - 120 mg/dL 12/07/2023 7:15 AM EDT [facility] Calcium 8.9 8.4 - 10.2 mg/dL 12/07/2023 7:15 AM EDT [facility]ORY [facility] Blood Venous blood specimen / Unknown Venipuncture / Unknown 12/07/2023 6:05 AM EDT 12/07/2023 6:47 AM EDT Sundar Temple PA-C LAB BLOOD ORDERABLE S LABORATORY [place] [id number] [place] [address] * (ABNORMAL) CBC (12/07/2023 6:05 AM EDT) [facility] WBC 8.02 4.00 - 10.80 K/uL 12/07/2023 6:58 AM EDT LAB[facility]ATORY [facility] RBC 3.79 4.50 - 5.25 M/uL 12/07/2023 6:58 AM EDT LAB[facility]ATORY [facility] HGB 11.0(L) 14.0 - 16.8 g/dL 12/07/2023 6:58 AM EDT [facility] HCT 34.0(L) 40.0 - 48.4 % 12/07/2023 6:58 AM EDT LAB[facility]ATORY [facility] MCV 89.7 82.0 - 99.5 fL 12/07/2023 6:58 AM EDT LAB[facility]ATORY [facility] MCH 29.0 27.0 - 34.0 pg 12/07/2023 6:58 AM EDT LAB[facility]ATORY [facility] MCHC 32.4 32.0 - 36.0 g/dL 12/07/2023 6:58 AM EDT LAB[facility]ORY [facility] RDW 15.9 11.5 - 15.5 % 12/07/2023 6:58 AM EDT LAB[facility]ATORY [facility] PLT 251 140 - 400 K/uL 12/07/2023 6:58 AM EDT LAB[facility]ATORY [facility] MPV 10.7 6.6 - 11.1 fL 12/07/2023 6:58 AM EDT LAB[facility]ORY [facility] Blood Venous blood specimen / Unknown Venipuncture / Unknown 12/07/2023 6:05 AM EDT 12/07/2023 6:46 AM EDT Sundar Temple PA-C LAB BLOOD ORDERABLE S Performing Organization Address [facility] Co de Phone Number LABORATORY [address] [address] * ECHO, COMPLETE (2D), TRANS-THORACIC (12/06/2023 2:58 PM EDT) Pathologist [facility] LEFT VENTRICULAR EJECTION FRACTION 35 % [facility] CARDIOLOGY 12/06/2023 2:23 PM EDT Sundar Temple PA-C ECHOCARDIOLOGY Performing Organization Address [facility] de Phone Number [facility] CARDIOLOGY * PT INR (12/06/2023 5:48 AM EDT) Pathologist [facility] Prothrombin Time 14.7 11.6 - 15.2 seconds 12/06/2023 7:19 AM EDT LAB[facility]ATORY [facility] INR 1.1 0.8 - 1.2 12/06/2023 7:19 AM EDT LAB[facility] Blood Venous blood specimen / Unknown Venipuncture / Unknown 12/06/2023 5:48 AM EDT 12/06/2023 6:26 AM EDT Narrative LABORATORY [facility] - 12/06/2023 7:19 AM EDT Warfarin Therapy INR: 2.0-3.0 conventional anticoagulation INR: 2.5-3.5 high intensity anticoagulation Sundar Temple PA-C LAB BLOOD ORDERABLE S Performing Organization Address [facility]/ZIP Co de Phone Number LABORATORY [address] [address] * (ABNORMAL) BASIC METABOLIC PANEL (12/06/2023 5:48 AM EDT) Pathologist [facility] BUN 30(H) 6 - 20 mg/dL 12/06/2023 7:00 AM EDT LAB[facility]ATORY [facility] Creatinine 1.6(H) 0.6 - 1.2 mg/dL 12/06/2023 7:00 AM EDT LAB[facility]ATORY [facility] Estimated Glomerular Filtration Rate 45(L) >=60 mL/min 12/06/2023 7:00 AM EDT LAB[facility]ORY [facility] Comment:eGFR is calculated b ased on the CKD-EPI 2020 equation Sodium 133(L) 135 - 146 mmol/L 12/06/2023 7:00 AM EDT LAB[facility]ATORY [facility] Potassium 3.0(L) 3.5 - 5.1 mmol/L 12/06/2023 7:00 AM EDT LAB[facility]ORY [facility] Chloride 92(L) 98 - 107 mmol/L 12/06/2023 7:00 AM EDT LAB[facility]ATORY [facility] CO2 28 22 - 32 mmol/L 12/06/2023 7:00 AM EDT LAB[facility]ORY [facility] Anion Gap 13 7 - 15 mmol/L 12/06/2023 7:00 AM EDT LAB[facility]ORY [facility] Glucose 113 70 - 120 mg/dL 12/06/2023 7:00 AM EDT LAB[facility] Calcium 8.7 8.4 - 10.2 mg/dL 12/06/2023 7:00 AM EDT LAB[facility]ORY [facility] Blood Venous blood specimen / Unknown Venipuncture / Unknown 12/06/2023 5:48 AM EDT 12/06/2023 6:26 AM EDT Sundar Temple PA-C LAB BLOOD ORDERABLE S Performing Organization Address City/State/[facility] Co de Phone Number LABORATORY [place] [id number] [place] [address] * (ABNORMAL) CBC (12/06/2023 5:48 AM EDT) WBC 8.71 4.00 - 10.80 K/uL 12/06/2023 6:32 AM EDT LABORATORY [facility] RBC 4.07 4.50 - 5.25 M/uL 12/06/2023 6:32 AM EDT LAB[facility]ATORY [facility] HGB 11.7(L) 14.0 - 16.8 g/dL 12/06/2023 6:32 AM EDT LAB[facility]ORY [facility] HCT 36.0(L) 40.0 - 48.4 % 12/06/2023 6:32 AM EDT LABORATORY [facility] MCV 88.5 82.0 - 99.5 fL 12/06/2023 6:32 AM EDT LAB[facility]ATORY [facility] MCH 28.7 27.0 - 34.0 pg 12/06/2023 6:32 AM EDT LAB[facility]ATORY [facility] MCHC 32.5 32.0 - 36.0 g/dL 12/06/2023 6:32 AM EDT LAB[facility]ATORY [facility] RDW 16.1 11.5 - 15.5 % 12/06/2023 6:32 AM EDT LAB[facility]ATORY [facility] PLT 296 140 - 400 K/uL 12/06/2023 6:32 AM EDT LAB[facility]ATORY [facility] MPV 10.5 6.6 - 11.1 fL 12/06/2023 6:32 AM EDT LAB[facility]ORY [facility] Blood Venous blood specimen / Unknown Venipuncture / Unknown 12/06/2023 5:48 AM EDT 12/06/2023 6:26 AM EDT Sundar Temple PA-C LAB BLOOD ORDERABLE S Performing Organization Address City/[facility]/ZIP Co de Phone Number LABORATORY [address] [address] * (ABNORMAL) TROPONIN T, HIGH SENSITIVITY (12/06/2023 5:48 AM EDT) Troponin T, High Sensitivity 46(H) <=22 ng/L 12/06/2023 7:14 AM EDT LAB[facility]ORY [facility] Blood Venous blood specimen / Unknown Venipuncture / Unknown 12/06/2023 5:48 AM EDT 12/06/2023 6:26 AM EDT Sundar Temple PA-C LAB BLOOD ORDERABLE S LABORATORY [address] [address] * PHOSPHORUS (12/06/2023 5:48 AM EDT) Phosphorus 3.1 2.5 - 4.8 mg/dL 12/06/2023 7:00 AM EDT LAB[facility]ATORY [facility] Blood Venous blood specimen / Unknown Venipuncture / Unknown 12/06/2023 5:48 AM EDT 12/06/2023 6:26 AM EDT Sundar Temple PA-C LAB BLOOD ORDERABLE S Performing Organization Address City/[facility]/ZIP Co de Phone Number LABORATORY [facility] [address] [place] [address] * MAGNESIUM (12/06/2023 5:48 AM EDT) Magnesium 2.2 1.5 - 2.6 mg/dL 12/06/2023 7:00 AM EDT LAB[facility]ORY [facility] Blood Venous blood specimen / Unknown Venipuncture / Unknown 12/06/2023 5:48 AM EDT 12/06/2023 6:26 AM EDT Sundar Temple PA-C LAB BLOOD ORDERABLE S Performing Organization Address [facility] Co de Phone Number LABORATORY [address] [address] * XR CHEST 1 VIEW (12/06/2023 4:52 AM EDT) Anatomical Region Laterality Modality Chest Computed Radiogr aphy 12/06/2023 4:46 AM EDT Impressions 12/06/2023 6:44 AM EDT IMPRESSION: Increasing heart size THIS DOCUMENT HAS BEEN ELECTRONICALLY SIGNED BY BONNY TROTTER MD Narrative 12/06/2023 6:44 AM EDT PROCEDURE INFORMATION: Exam: XR Chest Exam date and time: 12/06/2023 4:46 AM Age: 73 years old Clinical indication: Cough; Prior surgery; Surgery date: 6+ months; Surgery type: Pacemaker; Additional info: Wheezing, productive cough brown sputum, leukocytosis TECHNIQUE: Imaging protocol: Radiologic exam of the chest. Views: 1 view. COMPARISON: CT CHEST/ABDOMEN/PELVIS WO IV CONTRAST WO ORAL CONTRAST 12/05/2023 7:02 PM FINDINGS: Tubes, catheters and devices: A cardiac pacemaker is identified Lungs: There is some nonspecific ground-glass density within the lungs Pleural spaces: No pleural effusion is identified Heart/Mediastinum: There is mild cardiomegaly. The heart size has increased since September Bones/joints: No acute abnormality is seen within the bones Procedure Note Bonny Trotter MD - 12/06/2023 PROCEDURE INFORMATION: Exam: XR Chest Exam date and time: 12/06/2023 4:46 AM Age: 73 years old Clinical indication: Cough; Prior surgery; Surgery date: 6+ months;Surgery type: Pacemaker; Additional info: Wheezing, productive cough brown sputum, leukocytosis TECHNIQUE: Imaging protocol: Radiologic exam of the chest. Views: 1 view. COMPARISON: CT CHEST/ABDOMEN/PELVIS WO IV CONTRAST WO ORAL CONTRAST 12/05/2023 7:02 PM FINDINGS: Tubes, catheters and devices: A cardiac pacemaker is identified Lungs: There is some nonspecific ground-glass density within the lungs Pleural spaces: No pleural effusion is identified Heart/Mediastinum: There is mild cardiomegaly. The heart size hasincreased since September Bones/joints: No acute abnormality is seen within the bones IMPRESSION IMPRESSION: Increasing heart size THIS DOCUMENT HAS BEEN ELECTRONICALLY SIGNED BY BONNY TROTTER MD Sundar Temple PA-C RADIOLOGY ([facility]) * OSMOLALITY, SERUM (12/06/2023 1:20 AM EDT) Osmolality, Serum 282 278 - 305 mOsm/kg 12/06/2023 11:21 AM EDT LABORATORY [facility] Blood Venous blood specimen / Unknown Venipuncture / Unknown 12/06/2023 1:20 AM EDT 12/06/2023 1:29 AM EDT Sundar Temple PA-C LAB BLOOD ORDERABLE S LABORATORY [facility] [address] [place] [address] * (ABNORMAL) TROPONIN T, HIGH SENSITIVITY (12/05/2023 11:44 PM EDT) Troponin T, High Sensitivity 48(H) <=22 ng/L 12/06/2023 1:58 AM EDT LAB[facility]ORY [facility] Blood Venous blood specimen / Unknown Venipuncture / Unknown 12/05/2023 11:44 PM EDT 12/05/2023 11:47 PM EDT Sundar Temple PA-C LAB BLOOD ORDERABLE S Performing Organization Address [facility] Co de Phone Number LABORATORY [address] [phone] * (ABNORMAL) HEPATIC FUNCTION PANEL (12/05/2023 11:44 PM EDT) Albumin 3.2(L) 3.8 - 5.0 g/dL 12/06/2023 1:14 AM EDT LAB[facility]ATORY [facility] AST 12 10 - 50 U/L 12/06/2023 1:14 AM EDT LABORATORY [facility] Alkaline Phosphatase 55 35 - 130 U/L 12/06/2023 1:14 AM EDT [facility] ALT 11 10 - 50 U/L 12/06/2023 1:14 AM EDT LABORATORY [facility] Bilirubin, Total 0.5 <=1.2 mg/dL 12/06/2023 1:14 AM EDT [facility] Bilirubin, Direct <0.2 0.0 - 0.3 mg/dL 12/06/2023 1:14 AM EDT [facility] Protein 5.8(L) 6.0 - 8.3 g/dL 12/06/2023 1:14 AM EDT LAB[facility]ATORY [facility] Blood Venous blood specimen / Unknown Venipuncture / Unknown 12/05/2023 11:44 PM EDT 12/05/2023 11:47 PM EDT Sundar Temple PA-C LAB BLOOD ORDERABLE S Performing Organization Address City/[facility]/ZIP Co de Phone Number LABORATORY [address] [address] * (ABNORMAL) CRP (INFLAMMATORY MARKER) (12/05/2023 11:44 PM EDT) Pathologist [facility] CRP (Inflammatory Marker) 55(H) <=5 mg/L 12/06/2023 1:14 AM EDT LAB[facility]ATORY [facility] Blood Venous blood specimen / Unknown Venipuncture / Unknown 12/05/2023 11:44 PM EDT 12/05/2023 11:47 PM EDT Sundar Temple PA-C LAB BLOOD ORDERABLE S LABORATORY [facility] [address] [place] [address] * (ABNORMAL) PROCALCITONIN (12/05/2023 11:44 PM EDT) Procalcitonin 0.13(H) <0.10 ng/mL 12/06/2023 11:32 AM EDT LABORATORY [facility] Blood Venous blood specimen / Unknown Venipuncture / Unknown 12/05/2023 11:44 PM EDT 12/05/2023 11:47 PM EDT Narrative LABORATORY [facility] - 12/06/2023 11:32 AM EDT Less than 0.5 ng/mL: Low risk for progression to sepsis. Review patients condition for localized infections. 0.5 to 2.0 ng/mL: Intermediate risk for progresion to sepsis. Review underlying conditions. Recommend repeat PCT after 6 hours has elapsed. Greater than 2.0 ng/mL: high risk for progression to sepsis unless other causes are known. Sundar Temple PA-C LAB BLOOD ORDERABLE S Performing Organization Address [facility]/ZIP Co de Phone Number LABORATORY [facility] [address] [place] [address] * CK (12/05/2023 11:44 PM EDT) Pathologist [facility] CK 56 39 - 308 U/L 12/06/2023 1:01 AM EDT LAB[facility]ATORY [facility] Blood Venous blood specimen / Unknown Venipuncture / Unknown 12/05/2023 11:44 PM EDT 12/05/2023 11:47 PM EDT Sundar Temple PA-C LAB BLOOD ORDERABLE S Performing Organization Address City/[facility]/ZIP Co de Phone Number LABORATORY [facility] [address] [place] [address] * TSH (12/05/2023 11:44 PM EDT) TSH 0.79 0.27 - 4.20 uIU/mL 12/06/2023 1:04 AM EDT LABORATORY [facility] Blood Venous blood specimen / Unknown Venipuncture / Unknown 12/05/2023 11:44 PM EDT 12/05/2023 11:47 PM EDT Sundar Temple PA-C LAB BLOOD ORDERABLE S Performing Organization Address City/[facility]/ZIP Co de Phone Number LABORATORY [address] [phone] * (ABNORMAL) BNP, NT-PRO (12/05/2023 11:44 PM EDT) Pathologist [facility] [place] BNP, NT-Pro 1,080(H) <300 pg/mL 12/06/2023 1:04 AM EDT LABORATORY [facility] Blood Venous blood specimen / Unknown Venipuncture / Unknown 12/05/2023 11:44 PM EDT 12/05/2023 11:47 PM EDT Narrative LABORATORY [facility] - 12/06/2023 1:04 AM EDT Exclude Heart Failure: <300 pg/mL Diagnose Heart Failure: Age <50 yr: >450 pg/mL 50-75 yr: >900 pg/mL >75 yr: >1800 pg/mL GFR is 30-59 mL/min: >1200 pg/mL or Age-adjusted values GFR <30 mL/min: do not use, not reliable Prognostic threshold: 1000 pg/mL Sundar Temple PA-C LAB BLOOD ORDERABLE S Performing Organization Address City/[facility]/ZIP Co de Phone Number LABORATORY [address] [phone] * DIGOXIN LEVEL (12/05/2023 11:44 PM EDT) Digoxin Level 1.0 0.5 - 1.1 ng/mL 12/06/2023 11:32 AM EDT LABORATORY [facility] Blood Venous blood specimen / Unknown Venipuncture / Unknown 12/05/2023 11:44 PM EDT 12/05/2023 11:47 PM EDT Narrative LABORATORY [facility] - 12/06/2023 11:32 AM EDT Recommended trough therapeutic ranges: 0.5 to 0.8 for heart failure 0.5 to 1.1 for atrial fibrillation Sundar Temple PA-C LAB BLOOD ORDERABLE S LABORATORY [facility] [address] [place] [address] * PHOSPHORUS (12/05/2023 11:44 PM EDT) Phosphorus 3.5 2.5 - 4.8 mg/dL 12/06/2023 1:01 AM EDT LABORATORY [facility] Blood Venous blood specimen / Unknown Venipuncture / Unknown 12/05/2023 11:44 PM EDT 12/05/2023 11:47 PM EDT Sundar Temple PA-C LAB BLOOD ORDERABLE S Performing Organization Address [facility]/ZIP Co de Phone Number LABORATORY [address] [address] * MAGNESIUM (12/05/2023 11:44 PM EDT) Magnesium 1.7 1.5 - 2.6 mg/dL 12/06/2023 1:01 AM EDT LABORATORY [facility] Blood Venous blood specimen / Unknown Venipuncture / Unknown 12/05/2023 11:44 PM EDT 12/05/2023 11:47 PM EDT Sundar Temple PA-C LAB BLOOD ORDERABLE S Performing Organization Address City/[facility]/ZIP Co de Phone Number LABORATORY [address] [address] * (ABNORMAL) BASIC METABOLIC PANEL (12/05/2023 11:44 PM EDT) BUN 29(H) 6 - 20 mg/dL 12/06/2023 12:05 AM EDT LABORATORY [facility] Creatinine 1.7(H) 0.6 - 1.2 mg/dL 12/06/2023 12:05 AM EDT LABORATORY [facility] Estimated Glomerular Filtration Rate 41(L) >=60 mL/min 12/06/2023 12:05 AM EDT LABORATORY [facility] Comment:eGFR is calculated b ased on the CKD-EPI 2020 equation Sodium 129(L) 135 - 146 mmol/L 12/06/2023 12:05 AM EDT LABORATORY [facility] Potassium 3.0(L) 3.5 - 5.1 mmol/L 12/06/2023 12:05 AM EDT LABORATORY [facility] Chloride 89(L) 98 - 107 mmol/L 12/06/2023 12:05 AM EDT LABORATORY [facility] CO2 24 22 - 32 mmol/L 12/06/2023 12:05 AM EDT LABORATORY [facility] Anion Gap 16(H) 7 - 15 mmol/L 12/06/2023 12:05 AM EDT LABORATORY SH Glucose 112 70 - 120 mg/dL 12/06/2023 12:05 AM EDT LABORATORY [facility] Calcium 7.9(L) 8.4 - 10.2 mg/dL 12/06/2023 12:05 AM EDT LABORATORY [facility] Blood Venous blood specimen / Unknown Venipuncture / Unknown 12/05/2023 11:44 PM EDT 12/05/2023 11:47 PM EDT Son Desouza PA-C LAB BLOOD ORDERA BLES LABORATORY [address] [address] * LACTATE,WHOLE BLOOD (12/05/2023 10:33 PM EDT) [facility] Lactate, Whole Blood 1.9 0.4 - 2.0 mmol/L 12/05/2023 10:50 PM EDT LABORATORY [facility] Blood Venous blood specimen / Unknown Venipuncture / Unknown 12/05/2023 10:33 PM EDT 12/05/2023 10:37 PM EDT Son Desouza PA-C LAB BLOOD ORDERA BLES LABORATORY [facility] [address] [place] [address] * SODIUM, RANDOM URINE (12/05/2023 8:00 PM EDT) Sodium, Random Urine 42 mmol/L 12/06/2023 11:31 AM EDT LABORATORY [facility] Urine Non-blood Collection / Unknown 12/05/2023 8:00 PM EDT 12/05/2023 8:14 PM EDT Sundar Temple PA-C LAB URINE ORDERABLE S Performing Organization Address [facility]/ZIP Co de Phone Number LABORATORY [facility] [address] [place] [address] * OSMOLALITY, URINE (12/05/2023 8:00 PM EDT) Osmolality, Urine 259 50 - 1,200 mOsm/kg 12/06/2023 11:22 AM EDT LABORATORY [facility] Urine Non-blood Collection / Unknown 12/05/2023 8:00 PM EDT 12/05/2023 8:14 PM EDT Sundar Temple PA-C LAB URINE ORDERABLE S Performing Organization Address [facility]/ZIP Co de Phone Number LABORATORY [place] [address] [place] [address] * URINALYSIS WITH MICROSCOPIC EXAM (12/05/2023 8:00 PM EDT) Color, Urine Yellow Light Yellow, Yellow, Dark Yellow 12/05/2023 8:28 PM EDT LABORATORY [facility] Clarity, Urine Clear Clear 12/05/2023 8:28 PM EDT LABORATORY [facility] Glucose, Urine Negative Negative mg/dL 12/05/2023 8:28 PM EDT LABORATORY [facility] Bilirubin, Urine Negative Negative 12/05/2023 8:28 PM EDT LABORATORY [facility] Ketone, Urine Negative Negative mg/dL 12/05/2023 8:28 PM EDT LABORATORY [facility] Specific [place], Urine 1.009 1.003 - 1.030 12/05/2023 8:28 PM EDT LABORATORY [facility] Blood, Urine Negative Negative 12/05/2023 8:28 PM EDT LABORATORY [facility] pH, Urine 5.5 5.0 - 7.5 Units 12/05/2023 8:28 PM EDT LABORATORY [facility] Protein, Urine Negative Negative mg/dL 12/05/2023 8:28 PM EDT LABORATORY [facility] Urobilinogen, Urine 0.2 0.2, 1.0 mg/dL 12/05/2023 8:28 PM EDT LABORATORY SH Nitrite, Urine Negative Negative 12/05/2023 8:28 PM EDT LABORATORY SH Esterase, Urine Negative Negative 12/05/2023 8:28 PM EDT LABORATORY [facility] RBC, Urine 0-2 0 - 2 /HPF 12/05/2023 8:28 PM EDT LABORATORY [facility] WBC, Urine 0-2 0 - 2 /HPF 12/05/2023 8:28 PM EDT LABORATORY [facility] Bacteria, Urine 0-25 0 - 25 /HPF 12/05/2023 8:28 PM EDT LABORATORY [facility] Urine Non-blood Collection / Unknown 12/05/2023 8:00 PM EDT 12/05/2023 8:14 PM EDT Son Desouza PA-C LAB URINE ORDERA BLES LABORATORY [place] [id number] [place] [address] * CT CHEST/ABDOMEN/PELVIS WO IV CONTRAST WO ORAL CONTRAST (12/05/2023 7:10 PM EDT) Anatomical Region Laterality Modality Body, Chest, Abdomen, Pelvis, Cardio Computed Tomography 12/05/2023 7:02 PM EDT Impressions 12/05/2023 7:45 PM EDT IMPRESSION: 1. No acute findings on noncontrast imaging. 2. Mild cardiomegaly, similar to prior. 3. 11 mm superior segment right lower lobe nodule is stable since recent imaging however increased since the PET-CT in 2017, continued follow-up recommended. 4. Additional findings as described. PROCEDURE INFORMATION: Exam: CT Abdomen And Pelvis Without Contrast Exam date and time: 12/05/2023 19:02 Age: 73 years old Clinical indication: Other: Low BP; Cough; Additional info: Cough, diarrhea, elevated lactate, acute kidney injury, leukocytosis TECHNIQUE: Imaging protocol: Computed tomography of the abdomen and pelvis without contrast. 3D rendering (Not supervised by radiologist): MIP and/or 3D reconstructed images were created by the technologist. Radiation optimization: All CT scans at this facility use at least one of these dose optimization techniques: automated exposure control; mA and/or kV adjustment per patient size (includes targeted exams where dose is matched to clinical indication); or iterative reconstruction. COMPARISON: CT PET^[facility] (Adult) 08/22/2022 08:38 FINDINGS: Lungs: There are benign, calcified pulmonary granulomas. Liver: 11 mm right hepatic lesion probably new since prior PET-CT indeterminate on these noncontrast images. Gallbladder and bile ducts: Cholecystectomy. Pancreas: No gross pathology in the pancreas on noncontrast imaging. Spleen: No splenomegaly or focal lesions. Adrenal glands: No mass. Kidneys and ureters: No nephrolithiasis or collecting system obstruction. Stomach and bowel: Submucosal fat deposition in the colon, likely habitus and or diet related. No colitis or diverticular disease. Scattered left-sided small bowel air-fluid levels, mild dilation of the few bowel loops, no transition point. No significant small bowel wall thickening is appreciated on noncontrast imaging. Appendix: No evidence of appendicitis. Intraperitoneal space: No free air. No significant fluid collection. Vasculature: Aortic bi-iliac stent graft, satisfactory appearance. Right and left renal arteries stents satisfactory noncontrast appearance. Excluded infrarenal 39 mm aortic aneurysm is stable Lymph nodes: No significantly enlarged lymph nodes. Urinary bladder: Probable chronic outlet obstructive changes of the urinary bladder, similar to prior. Reproductive: diminutive prostate gland, similar to prior. . Bones/joints: Mild lumbar levoscoliosis. Degenerative changes in the spine. No acute fracture or subluxation. Soft tissues: No suspicious lesions. IMPRESSION: 1. Minor left-sided small bowel ileus or dysmotility. 2. 11 mm right hepatic lesion probably new since prior PET-CT indeterminate on these noncontrast images. Pre- and post-contrast, multiphasic MRI of the abdomen is recommended for further characterization when clinically appropriate. 3. Aortic bi-iliac stent graft, satisfactory noncontrast appearance. 4. Incidental findings as described. THIS DOCUMENT HAS BEEN ELECTRONICALLY SIGNED BY LIZET COLE MD Narrative 12/05/2023 7:45 PM EDT PROCEDURE INFORMATION: Exam: CT Chest Without Contrast; Diagnostic Exam date and time: 12/05/2023 19:02 Age: 73 years old Clinical indication: Other: Low BP; Cough; Additional info: Cough, diarrhea, elevated lactate, acute kidney injury, leukocytosis TECHNIQUE: Imaging protocol: Diagnostic computed tomography of the chest without contrast. 3D rendering (Not supervised by radiologist): MIP and/or 3D reconstructed images were created by the technologist. Radiation optimization: All CT scans at this facility use at least one of these dose optimization techniques: automated exposure control; mA and/or kV adjustment per patient size (includes targeted exams where dose is matched to clinical indication); or iterative reconstruction. COMPARISON: CT LOW DOSE SCREENING(Adult) 10/29/2023 14:18 FINDINGS: Tubes, catheters and devices: Left chest wall pacemaker, satisfactory appearance. Thyroid: Click panic 0 mild thyromegaly, similar to prior. Lungs: Motion artifact in the lungs. 11 mm superior segment right lower lobe nodule is stable. No airspace consolidation. Pleural spaces: No pneumothorax. No pleural effusion. Heart: Mild cardiomegaly, similar to prior. Coronary arteries: Coronary artery calcification typical for age. Lymph nodes: No enlarged lymph nodes. Vasculature: No aortic aneurysm. Bones/joints: No acute fracture or subluxation. Soft tissues: No suspicious lesions. Procedure Note Lizet Cole MD - 12/05/2023 PROCEDURE INFORMATION: Exam: CT Chest Without Contrast; Diagnostic Exam date and time: 12/05/2023 19:02 Age: 73 years old Clinical indication: Other: Low BP; Cough; Additional info: Cough,diarrhea, elevated lactate, acute kidney injury, leukocytosis TECHNIQUE: Imaging protocol: Diagnostic computed tomography of the chest withoutcontrast. 3D rendering (Not supervised by radiologist): MIP and/or 3D reconstructed images were created by the technologist. Radiation optimization: All CT scans at this facility use at least one ofthese dose optimization techniques: automated exposure control; mA and/or kV adjustment per patient size (includes targeted exams where dose is matchedto clinical indication); or iterative reconstruction. COMPARISON: CT LOW DOSE SCREENING(Adult) 10/29/2023 14:18 FINDINGS: Tubes, catheters and devices: Left chest wall pacemaker, satisfactory appearance. Thyroid: Click panic 0 mild thyromegaly, similar to prior. Lungs: Motion artifact in the lungs. 11 mm superior segment right lowerlobe nodule is stable. No airspace consolidation. Pleural spaces: No pneumothorax. No pleural effusion. Heart: Mild cardiomegaly, similar to prior. Coronary arteries: Coronary artery calcification typical for age. Lymph nodes: No enlarged lymph nodes. Vasculature: No aortic aneurysm. Bones/joints: No acute fracture or subluxation. Soft tissues: No suspicious lesions. IMPRESSION IMPRESSION: 1. No acute findings on noncontrast imaging. 2. Mild cardiomegaly, similar to prior. 3. 11 mm superior segment right lower lobe nodule is stable since recent imaging however increased since the PET-CT in 2017, continued follow-up recommended. 4. Additional findings as described. PROCEDURE INFORMATION: Exam: CT Abdomen And Pelvis Without Contrast Exam date and time: 12/05/2023 19:02 Age: 73 years old Clinical indication: Other: Low BP; Cough; Additional info: Cough,diarrhea, elevated lactate, acute kidney injury, leukocytosis TECHNIQUE: Imaging protocol: Computed tomography of the abdomen and pelvis without contrast. 3D rendering (Not supervised by radiologist): MIP and/or 3D reconstructed images were created by the technologist. Radiation optimization: All CT scans at this facility use at least one ofthese dose optimization techniques: automated exposure control; mA and/or kV adjustment per patient size (includes targeted exams where dose is matchedto clinical indication); or iterative reconstruction. COMPARISON: [facility] (Adult) 08/22/2022 08:38 FINDINGS: Lungs: There are benign, calcified pulmonary granulomas. Liver: 11 mm right hepatic lesion probably new since prior PET-CTindeterminate on these noncontrast images. Gallbladder and bile ducts: Cholecystectomy. Pancreas: No gross pathology in the pancreas on noncontrast imaging. Spleen: No splenomegaly or focal lesions. Adrenal glands: No mass. Kidneys and ureters: No nephrolithiasis or collecting system obstruction. Stomach and bowel: Submucosal fat deposition in the colon, likely habitusand or diet related. No colitis or diverticular disease. Scattered left-sidedsmall bowel air-fluid levels, mild dilation of the few bowel loops, notransition point. No significant small bowel wall thickening is appreciated onnoncontrast imaging. Appendix: No evidence of appendicitis. Intraperitoneal space: No free air. No significant fluid collection. Vasculature: Aortic bi-iliac stent graft, satisfactory appearance. Rightand left renal arteries stents satisfactory noncontrast appearance. Excluded infrarenal 39 mm aortic aneurysm is stable Lymph nodes: No significantly enlarged lymph nodes. Urinary bladder: Probable chronic outlet obstructive changes of theurinary bladder, similar to prior. Reproductive: diminutive prostate gland, similar to prior. . Bones/joints: Mild lumbar levoscoliosis. Degenerative changes in thespine. No acute fracture or subluxation. Soft tissues: No suspicious lesions. IMPRESSION: 1. Minor left-sided small bowel ileus or dysmotility. 2. 11 mm right hepatic lesion probably new since prior PET-CTindeterminate on these noncontrast images. Pre- and post-contrast, multiphasic MRI ofthe abdomen is recommended for further characterization when clinically appropriate. 3. Aortic bi-iliac stent graft, satisfactory noncontrast appearance. 4. Incidental findings as described. THIS DOCUMENT HAS BEEN ELECTRONICALLY SIGNED BY LIZET COLE MD Son SIEGEL-Raegan RAD CT * (ABNORMAL) BLOOD GAS, VENOUS (12/05/2023 6:19 PM EDT) Temperature 37.0 C 12/05/2023 6:41 PM EDT LABORATORY [facility] pH, Venous 7.513(H) 7.320 - 7.430 units 12/05/2023 6:41 PM EDT LABORATORY [facility] pCO2, Venous 36.8(L) 40.0 - 60.0 mmHg 12/05/2023 6:41 PM EDT LABORATORY [facility] pO2, Venous 62.3(H) 25.0 - 50.0 mmHg 12/05/2023 6:41 PM EDT LABORATORY [facility] Base Excess, Venous 6.3(H) -2.0 - 2.0 mmol/L 12/05/2023 6:41 PM EDT LABORATORY [facility] HGB 11.9(L) 14.0 - 16.8 g/dL 12/05/2023 6:41 PM EDT LABORATORY [facility] Oxyhemoglobin, Venous 86.8(H) 40.0 - 85.0 % total Hgb 12/05/2023 6:41 PM EDT LABORATORY [facility] Carboxyhemoglobi n, Whole Blood 4.2(H) <=1.5 % total Hgb 12/05/2023 6:41 PM EDT LABORATORY [facility] Comment:Smokers: 0-9.0 % Methemoglobin, Whole Blood 0.6 <=1.5 % total Hgb 12/05/2023 6:41 PM EDT LABORATORY [facility] Reduced Hemoglobin, Venous 8.4 % total Hgb 12/05/2023 6:41 PM EDT LABORATORY [facility] O2 Content, Venous 14.6 7.0 - 18.0 %vol 12/05/2023 6:41 PM EDT LABORATORY [facility] Bicarbonate, Whole Blood 29.5 23.0 - 31.0 mmol/L 12/05/2023 6:41 PM EDT LABORATORY [facility] Blood Venous blood specimen / Unknown Venipuncture / Unknown 12/05/2023 6:19 PM EDT 12/05/2023 6:38 PM EDT Son Desouza PA-C LAB BLOOD ORDERA BLES LABORATORY [address] [address] * SARS-COV-2 (COVID-19), NAAT (12/05/2023 6:08 PM EDT) SARS-CoV-2 (COVID-19) Result Negative Negative 12/05/2023 6:53 PM EDT LABORATORY [facility] Comment: 2019 Novel Coronavirus not detected. This express test was developed and its performance characteristics determined by [facility]. It has not been cleared or approved by the U.S. Food and Drug Administration (FDA). FDA does not require this test to go thru premarket FDA review. This test is used for clinical purposes. It should not be regarded as investigational or for research. This laboratory is certified under the Clinical Laboratory Improvement Amendments (CLIA) as qualified to perform high complexity clinical laboratory testing. This test is a nucleic acid amplification test (NAAT), a reverse transcriptase polymerase chain reaction (RT-PCR) test, or a Centers for Disease Control- acceptable equivalent. The test is performed in a high complexity Clinical Laboratory Improvement Amendments-(CLIA) certified laboratory. The test is acceptable for SARS-CoV-2 diagnosis, surveillance, and travel within the [place] and to most countries. Please check with local testing authorities about requirements before travel. The validation of bronchial specimens, tracheal aspirates, and sputum for this assay was developed and performance characteristics determined by [facility]. The validation of alternate specimen types has not been cleared or approved by the U.S. Food and Drug Administration (FDA). It has been determined that such clearance is not necessary. Upper Respiratory Mid-turbinate nasal swab / Unknown Non-blood Collection / Unknown 12/05/2023 6:08 PM EDT 12/05/2023 6:10 PM EDT Son Desouza PA-C LAB MICRO - GENE [facility] ORDERABLES LABORATORY [place] [address] [place] [address] * (ABNORMAL) DIFFERENTIAL, AUTOMATED (12/05/2023 5:23 PM EDT) WBC 13.85(H) 4.00 - 10.80 K/uL 12/05/2023 5:38 PM EDT LABORATORY [facility] Neutrophils % 81.7(H) 40.0 - 75.0 % 12/05/2023 5:38 PM EDT LABORATORY [facility] Lymphocytes % 9.0(L) 18.0 - 42.0 % 12/05/2023 5:38 PM EDT LABORATORY [facility] Monocytes % 8.8 1.0 - 11.0 % 12/05/2023 5:38 PM EDT LABORATORY [facility] Eosinophils % 0.4 0.0 - 6.0 % 12/05/2023 5:38 PM EDT LABORATORY [facility] Basophils % 0.1 0.0 - 2.0 % 12/05/2023 5:38 PM EDT LABORATORY [facility] Absolute Neutrophils 11.32(H) 1.80 - 7.70 K/uL 12/05/2023 5:38 PM EDT LABORATORY [facility] Absolute Lymphocytes 1.24 1.00 - 4.80 K/ul 12/05/2023 5:38 PM EDT LABORATORY [facility] Absolute Monocytes 1.22(H) 0.00 - 1.10 K/uL 12/05/2023 5:38 PM EDT LABORATORY [facility] Absolute Eosinophils 0.06 0.00 - 0.70 K/uL 12/05/2023 5:38 PM EDT LABORATORY [facility] Absolute Basophils 0.01 0.00 - 0.20 K/uL 12/05/2023 5:38 PM EDT LABORATORY [facility] Blood Venous blood specimen / Unknown Venipuncture / Unknown 12/05/2023 5:23 PM EDT 12/05/2023 5:33 PM EDT Son Desouza PA-C LAB BLOOD ORDERA BLES LABORATORY [place] [address] [place] [address] * (ABNORMAL) CBC (12/05/2023 5:23 PM EDT) WBC 13.85(H) 4.00 - 10.80 K/uL 12/05/2023 5:38 PM EDT LABORATORY [facility] RBC 4.41 4.50 - 5.25 M/uL 12/05/2023 5:38 PM EDT LABORATORY [facility] HGB 12.7(L) 14.0 - 16.8 g/dL 12/05/2023 5:38 PM EDT LABORATORY [facility] HCT 38.4(L) 40.0 - 48.4 % 12/05/2023 5:38 PM EDT LABORATORY [facility] MCV 87.1 82.0 - 99.5 fL 12/05/2023 5:38 PM EDT LABORATORY [facility] MCH 28.8 27.0 - 34.0 pg 12/05/2023 5:38 PM EDT LABORATORY [facility] MCHC 33.1 32.0 - 36.0 g/dL 12/05/2023 5:38 PM EDT LABORATORY [facility] RDW 16.1 11.5 - 15.5 % 12/05/2023 5:38 PM EDT LABORATORY [facility] PLT 348 140 - 400 K/uL 12/05/2023 5:38 PM EDT LABORATORY [facility] MPV 10.3 6.6 - 11.1 fL 12/05/2023 5:38 PM EDT LABORATORY [facility] Blood Venous blood specimen / Unknown Venipuncture / Unknown 12/05/2023 5:23 PM EDT 12/05/2023 5:33 PM EDT Son Desouza PA-C LAB BLOOD ORDERA BLES Performing Organization Address City/[facility]/ZIP Co de Phone Number LABORATORY [address] [address] * (ABNORMAL) LACTATE,WHOLE BLOOD (12/05/2023 5:23 PM EDT) Lactate, Whole Blood 2.9(H) 0.4 - 2.0 mmol/L 12/05/2023 5:36 PM EDT LABORATORY [facility] Blood Venous blood specimen / Unknown Venipuncture / Unknown 12/05/2023 5:23 PM EDT 12/05/2023 5:33 PM EDT Son Desouza PA-C LAB BLOOD ORDERA BLES LABORATORY [address] [address] * LIPASE (12/05/2023 5:23 PM EDT) Lipase 37 13 - 60 U/L 12/05/2023 5:52 PM EDT LABORATORY [facility] Blood Venous blood specimen / Unknown Venipuncture / Unknown 12/05/2023 5:23 PM EDT 12/05/2023 5:33 PM EDT Son Desouza PA-C LAB BLOOD ORDERA BLES LABORATORY [facility] [address] [place] [address] * (ABNORMAL) COMPREHENSIVE METABOLIC PANEL (12/05/2023 5:23 PM EDT) BUN 31(H) 6 - 20 mg/dL 12/05/2023 5:52 PM EDT LABORATORY [facility] Creatinine 2.0(H) 0.6 - 1.2 mg/dL 12/05/2023 5:52 PM EDT LABORATORY [facility] Estimated Glomerular Filtration Rate 34(L) >=60 mL/min 12/05/2023 5:52 PM EDT LABORATORY [facility] Comment:eGFR is calculated b ased on the CKD-EPI 2020 equation Sodium 127(L) 135 - 146 mmol/L 12/05/2023 5:52 PM EDT LABORATORY [facility] Potassium 3.1(L) 3.5 - 5.1 mmol/L 12/05/2023 5:52 PM EDT LABORATORY [facility] Chloride 83(L) 98 - 107 mmol/L 12/05/2023 5:52 PM EDT LABORATORY [facility] CO2 26 22 - 32 mmol/L 12/05/2023 5:52 PM EDT LABORATORY [facility] Anion Gap 18(H) 7 - 15 mmol/L 12/05/2023 5:52 PM EDT LABORATORY [facility] Glucose 134(H) 70 - 120 mg/dL 12/05/2023 5:52 PM EDT LABORATORY [facility] Albumin 3.9 3.8 - 5.0 g/dL 12/05/2023 5:52 PM EDT LABORATORY [facility] AST 15 10 - 50 U/L 12/05/2023 5:52 PM EDT LABORATORY [facility] Alkaline Phosphatase 70 35 - 130 U/L 12/05/2023 5:52 PM EDT LABORATORY [facility] Bilirubin, Total 0.6 <=1.2 mg/dL 12/05/2023 5:52 PM EDT LABORATORY [facility] Calcium 9.2 8.4 - 10.2 mg/dL 12/05/2023 5:52 PM EDT LABORATORY [facility] Protein 7.2 6.0 - 8.3 g/dL 12/05/2023 5:52 PM EDT LABORATORY [facility] ALT 13 10 - 50 U/L 12/05/2023 5:52 PM EDT LABORATORY [facility] Blood Venous blood specimen / Unknown Venipuncture / Unknown 12/05/2023 5:23 PM EDT 12/05/2023 5:33 PM EDT Son Desouza PA-C LAB BLOOD ORDERA BLES Performing Organization Address [facility] Co de Phone Number LABORATORY [facility] [address] [place] [address] * EKG (12/05/2023 5:18 PM EDT) 12/05/2023 5:18 PM EDT Narrative Procedure Note Marek hSell MD - 12/05/2023 5:18 PM EDT REASON FOR STUDY: Weakness CONCLUSIONS: Warning: interpretation of this ECG, although attempted, may be adverselyaffected by data quality Ventricular-paced rhythm with frequent Premature ventricular complexes Biventricular pacemaker detected Abnormal ECG When compared with ECG of 03-Nov-2023 02:02, Premature ventricular complexes are now Present Vent. rate has increased by 8 bpm Ventricular Rate: 88 Atrial Rate: 441 QRS Duration: 148 QT/QTc: 438/529 ms P-R-T [place]: 0 : -75 : 86 degrees Son Desouza PA-C EKG Performing Organization Address [facility] Co de Phone Number [facility] documented in this encounter Visit Diagnoses Diagnosis Hypotension- Primary Hypotension, unspecified Hypovolemia WALDEMAR (acute kidney injury) (HCC) Acute kidney failure, unspecified Chest pain Chest pain, unspecified Heart failure (HCC) Heart failure, unspecified Other ill-defined heart diseases HTN, goal below 140/90 Unspecified essential hypertension Paroxysmal atrial fibrillation (HCC) Atrial fibrillation LBBB (left bundle branch block) Other left bundle branch block Hypotension due to hypovolemia WALDEMAR (acute kidney injury) (HCC) Acute kidney failure, unspecified Hypovolemia Hyponatremia Hyposmolality and/or hyponatremia Hypokalemia Hypopotassemia Leukocytosis Leukocytosis, unspecified Generalized weakness Other malaise and fatigue Inflammation of sacroiliac joint (HCC) Sacroiliitis, not elsewhere classified documented in this encounter Administered Medications Inactive Administered Medications - up to 3 most recent administrations Medication Order MAR Action Action Date Dose Rate Site Albuterol Sulfate (Proventil) (2.5 MG/3ML) 0.083% inhalation solution 2.5 mg 2.5 mg, Nebulizer, Q4H PRN Dyspnea, Starting on Sun12/06/23 at 0255, Until Sun12/07/23 at 2138 Allopurinol (Zyloprim) tab 200 mg 200 mg, Oral, Daily(AM), First dose on Sun12/07/23 at 0900, Until Discontinued Given 12/07/2023 8:28 AM EDT 200 mg Apixaban (Eliquis) tab 5 mg 5 mg, Oral, BID (.AM/PM), First dose on Sun12/06/23 at 2100, Until Discontinued Given 12/07/2023 8:25 AM EDT 5 mg Given 12/06/2023 7:49 PM EDT 5 mg ARIPiprazole (Abilify) tab 2 mg 2 mg, Oral, Daily(AM), First dose on Sun12/07/23 at 0900, Until Discontinued Given 12/07/2023 8:30 AM EDT 2 mg clopidogrel (pLAVix) tab 75 mg 75 mg, Oral, Daily(AM), First dose on Sun12/07/23 at 0900, Until Discontinued Given 12/07/2023 8:25 AM EDT 75 mg Famotidine (Pepcid) tab 20 mg 20 mg, Oral, Q12H, First dose on Sun12/06/23 at 2100, Until Discontinued Given 12/07/2023 8:25 AM EDT 20 mg Given 12/06/2023 7:49 PM EDT 20 mg fluticasone furoate-vilanterol (BREO ellipta) 200-25 MCG/ACT inhaler 1 Puff 1 Puff, Inhalation, RESPDAILY, First dose on Sun12/06/23 at 0800, Until Discontinued Given 12/07/2023 7:23 AM EDT 1 Puf f Given 12/06/2023 1:34 PM EDT 1 Puff losartan (Cozaar) tab 25 mg 25 mg, Oral, Daily(AM), First dose on Sun12/07/23 at 0930, Until Discontinued Given 12/07/2023 9:46 AM EDT 25 mg magnesium sulfate 1 g in d5w 100mL LOCKED DOSE 1 g, IV Piggyback, ONCE, 1 dose, On Sun12/06/23 at 0145, Administer over 60 Minutes New Bag 12/06/2023 1:27 AM EDT 1 g 100 mL/hr melatonin tab 3 mg 3 mg, Oral, HS PRN Sleep, Starting on Sun12/06/23 at 2049, Until Sun12/07/23 at 2138 Given 12/06/2023 9:18 PM EDT 3 mg metoprolol succinate XL (toPROL XL) tab 50 mg 50 mg, Oral, BID (.AM/PM), First dose on Sun12/06/23 at 2100, Until Discontinued, Hold for HR less than 60 or SBP below 100 and notify service if dose is held This med should NOT be Crushed or Chewed. Given 12/07/2023 8:25 AM EDT 50 mg Given 12/06/2023 7:49 PM EDT 50 mg metoprolol succinate XL (toPROL XL) tab 50 mg 50 mg, Oral, ONCE, On Sun12/07/23 at 0915, For 1 dose, Hold for HR less than 60 or SBP below 100 and notify service if dose is held This med should NOT be Crushed or Chewed. Given 12/07/2023 9:46 AM EDT 50 mg NSS 0.9% 1,000 mL bolus infusion Intravenous, at 1,000 mL/hr Administer over 60 Minutes, Administer entire volume within 60 minutes or less., ONCE, 1 dose, On Sun12/05/23 at 2115 New Bag 12/05/2023 8:43 PM EDT 1,000 mL 1000 mL/hr NSS 0.9% 500 mL bolus infusion Intravenous, at 500 mL/hr Administer over 60 Minutes, Administer entire volume within 60 minutes or less., ONCE, 1 dose, On Sun12/05/23 at 1745 Rate Verify 12/05/2023 6:14 PM EDT 500 mL/hr New Bag 12/05/2023 5:22 PM EDT 500 mL 500 mL/hr NSS 0.9% 500 mL bolus infusion Intravenous, at 500 mL/hr Administer over 60 Minutes, Administer entire volume within 60 minutes or less., ONCE, 1 dose, On Sun12/05/23 at 1830 Rate Verify 12/05/2023 7:02 PM EDT 500 mL/hr New Bag 12/05/2023 6:20 PM EDT 500 mL 500 mL/hr NSS infusion Intravenous, at 75 mL/hr, CONTINUOUS, Starting on Sun12/06/23 at 0030, Until Sun12/06/23 at 0051 New Bag 12/05/2023 11:51 PM EDT 75 mL/hr NSS infusion Intravenous, at 75 mL/hr, CONTINUOUS, Starting on Sun12/06/23 at 0130, Until Sun12/06/23 at 1129 New Bag 12/06/2023 1:21 AM EDT 75 mL/hr perflutren lipid microsphere inj SUSP 1.956 mg 1.956 mg, Intravenous, ONCE PRN Other, For Echo Only - Suboptimal Echo Images, Starting on Sun12/06/23 at 1445, Until Sun12/06/23 at 1644, For 2 hours, Administer IVP over 45 seconds, Cardiac Studies_HODHOV Given 12/06/2023 2:46 PM EDT 1.956 mg potassium chloride ER tab 20 mEq 20 mEq, Oral, ONCE, On Sun12/07/23 at 1700, For 1 dose, This med should NOT be Crushed or Chewed Given 12/07/2023 4:33 PM EDT 20 mEq potassium chloride ER tab 40 mEq 40 mEq, Oral, ONCE, On Sun12/06/23 at 0115, For 1 dose, This med should NOT be Crushed or Chewed Given 12/06/2023 12:49 AM EDT 40 mEq potassium chloride ER tab 40 mEq 40 mEq, Oral, ONCE, On Sun12/06/23 at 0930, For 1 dose, This med should NOT be Crushed or Chewed Given 12/06/2023 9:55 AM EDT 40 mEq potassium chloride ER tab 40 mEq 40 mEq, Oral, ONCE, On Sun12/07/23 at 0930, For 1 dose, This med should NOT be Crushed or Chewed Given 12/07/2023 9:45 AM EDT 40 mEq sodium chloride 0.9 % flush peripheral maria fernanda 3 mL 3 mL, IV Push, Q8H, First dose on Sun12/06/23 at 0600, Until Discontinued, Do not flush if lock, PICC, or central line not in place; IV infusing or unable to flush. Given 12/07/2023 6:14 AM EDT 3 mL Given 12/06/2023 9:18 PM EDT 3 mL Given 12/06/2023 1:51 PM EDT 3 mL tamsulosin (Flomax) cap 0.8 mg 0.8 mg, Oral, QPM-1999, First dose on Sun12/06/23 at 1999, Until Discontinued, Administer 30 min after meal. This med should NOT be Crushed or Chewed or opened! ORAL administration only!! Given 12/06/2023 7:49 PM EDT 0.8 mg Torsemide (Demadex) tab 100 mg 100 mg, Oral, Daily(AM), First dose on Sun12/07/23 at 0930, Until Discontinued Given 12/07/2023 9:45 AM EDT 100 mg Torsemide (Demadex) tab 50 mg 50 mg, Oral, Daily(AM), First dose (after last modification) on Sun12/08/23 at 0900, Until Discontinued Vitamin C (Ascorbic Acid) tab 1,000 mg 1,000 mg, Oral, Daily(AM), First dose on Sun12/07/23 at 0900, Until Discontinued Given 12/07/2023 8:26 AM EDT 1,000 mg documented in this encounter Active and Recently Administered Medications Times are shown in EDT. Scheduled Medication Order 12/05/2023 12/06/2023 12/07/2023 Allopurinol (Zyloprim) tab 200 mg 200 mg, Oral, Daily(AM), First dose on Sun12/07/23 at 0900, Until Discontinued 827 (Given - Provider: Gina Cuevas, CLARENCE) Apixaban (Eliquis) tab 5 mg 5 mg, Oral, BID (.AM/PM), First dose on Sun12/06/23 at 2100, Until Discontinued 1948 (Given - Provider: Promise Tenorio, CLARENCE) 824 (Given - Provider: Gina Cuevas, CLARENCE) ARIPiprazole (Abilify) tab 2 mg 2 mg, Oral, Daily(AM), First dose on Sun12/07/23 at 0900, Until Discontinued 829 (Given - Provider: Gina Cuevas RN) clopidogrel (pLAVix) tab 75 mg 75 mg, Oral, Daily(AM), First dose on Sun12/07/23 at 0900, Until Discontinued 824 (Given - Provider: Gina Cuevas RN) Digoxin (Lanoxin) tab 125 mcg 125 mcg, Oral, Daily(AM), First dose on Sun12/08/23 at 0900, Until Discontinued, Hold For HR Less than 60 and notify service if dose is held Famotidine (Pepcid) tab 20 mg 20 mg, Oral, Q12H, First dose on Sun12/06/23 at 2100, Until Discontinued 1948 (Given - Provider: Promise Tenorio, CLARENCE) 824 (Given - Provider: Gina Cuevas RN) fluticasone furoate-vilanterol (BREO ellipta) 200-25 MCG/ACT inhaler 1 Puff 1 Puff, Inhalation, RESPDAILY, First dose on Sun12/06/23 at 0800, Until Discontinued 1333 (Given - Provider: Leeann Rai, CHRISTINA) 722 (Given - Provider: Lena Teague, CHRISTINA) losartan (Cozaar) tab 25 mg 25 mg, Oral, Daily(AM), First dose on Sun12/07/23 at 0930, Until Discontinued 945 (Given - Provider: Gina Cuevas RN) magnesium sulfate 1 g in d5w 100mL LOCKED DOSE (COMPLETED) 1 g, IV Piggyback, ONCE, 1 dose, On Naomi 12/06/23 at 0145, Administer over 60 Minutes 0127 (New Bag - Provider: Miryam Mcneal LPN) metoprolol succinate XL (toPROL XL) tab 50 mg 50 mg, Oral, BID (.AM/PM), First dose on Sun12/06/23 at 2100, Until Discontinued, Hold for HR less than 60 or SBP below 100 and notify service if dose is held This med should NOT be Crushed or Chewed. 1948 (Given - Provider: Promise Tenorio, CLARENCE) 824 (Given - Provider: Gnia Cuevas RN) metoprolol succinate XL (toPROL XL) tab 50 mg (COMPLETED) 50 mg, Oral, ONCE, On Sun12/07/23 at 0915, For 1 dose, Hold for HR less than 60 or SBP below 100 and notify service if dose is held This med should NOT be Crushed or Chewed. 0946 (Given - Provider: Gina Cuevas RN) NSS 0.9% 1,000 mL bolus infusion (COMPLETED) Intravenous, at 1,000 mL/hr Administer over 60 Minutes, Administer entire volume within 60 minutes or less., ONCE, 1 dose, On Sun12/05/23 at 2115 2043 (New Bag - Provider: Hannah Li RN)2200 (Stopped - Provider: Hannah Li RN) NSS 0.9% 500 mL bolus infusion (COMPLETED) Intravenous, at 500 mL/hr Administer over 60 Minutes, Administer entire volume within 60 minutes or less., ONCE, 1 dose, On Sun12/05/23 at 1745 1722 (New Bag - Provider: Hannah Li RN)1814 (Rate Verify - Provider: Alejandra Jimenez LPN)1820 (Stopped - Provider: Alejandra Jimenez LPN) NSS 0.9% 500 mL bolus infusion (COMPLETED) Intravenous, at 500 mL/hr Administer over 60 Minutes, Administer entire volume within 60 minutes or less., ONCE, 1 dose, On Sun12/05/23 at 1830 1820 (New Bag - Provider: Alejandra Jimenez LPN)1902 (Rate Verify - Provider: Alejandra Jimenez LPN)1921 (Stopped - Provider: Hannah Li RN) potassium chloride ER tab 20 mEq (COMPLETED) 20 mEq, Oral, ONCE, On Sun12/07/23 at 1700, For 1 dose, This med should NOT be Crushed or Chewed 1633 (Given - Provider: Charlette Sol RN) potassium chloride ER tab 40 mEq (COMPLETED) 40 mEq, Oral, ONCE, On Sun12/06/23 at 0115, For 1 dose, This med should NOT be Crushed or Chewed 0049 (Given - Provider: Miryam Mcneal LPN) potassium chloride ER tab 40 mEq (COMPLETED) 40 mEq, Oral, ONCE, On Sun12/06/23 at 0930, For 1 dose, This med should NOT be Crushed or Chewed 0955 (Given - Provider: Rochelle Davidson LPN) potassium chloride ER tab 40 mEq (COMPLETED) 40 mEq, Oral, ONCE, On Sun12/07/23 at 0930, For 1 dose, This med should NOT be Crushed or Chewed 0945 (Given - Provider: Gina Cuevas RN) sodium chloride 0.9 % flush peripheral maria fernanda 3 mL 3 mL, IV Push, Q8H, First dose on Naomi 12/06/23 at 0600, Until Discontinued, Do not flush if lock, PICC, or central line not in place; IV infusing or unable to flush. 0600 (Not Given - Provider: Manolo Thompson RN - Reason: Parameter(s) Not Met - Comment: fluids infusing)1351 (Given - Provider: Rochelle Davidson LPN)2118 (Given - Provider: Promise Tenorio RN) 0614 (Given - Provider: Promise Tenorio RN)1400 (Not Given - Provider: Gina Cuevas RN - Reason: Other-Notify Provider - Comment: pt being discharged.) Spironolactone (Aldactone) tab 25 mg 25 mg, Oral, Daily(AM), First dose on 12/08/23 at 0900, Until Discontinued tamsulosin (Flomax) cap 0.8 mg 0.8 mg, Oral, QPM-1999, First dose on Naomi 12/06/23 at 2000, Until Discontinued, Administer 30 min after meal. This med should NOT be Crushed or Chewed or opened! ORAL administration only!! 194 (Given - Provider: Promise Tenoiro, CLARENCE) Torsemide (Demadex) tab 100 mg (CANCELED) 100 mg, Oral, Daily(AM), First dose on Sun12/07/23 at 0930, Until Discontinued 0945 (Given - Provider: Gina Cuevas, CLARENCE) Torsemide (Demadex) tab 50 mg 50 mg, Oral, Daily(AM), First dose (after last modification) on 12/08/23 at 0900, Until Discontinued Vitamin C (Ascorbic Acid) tab 1,000 mg 1,000 mg, Oral, Daily(AM), First dose on Sun12/07/23 at 0900, Until Discontinued 0826 (Given - Provider: Gina Cuevas, CLARENCE) Continuous Medication Order 12/05/2023 12/06/2023 12/07/2023 NSS infusion (CANCELED) Intravenous, at 75 mL/hr, CONTINUOUS, Starting on Naomi 12/06/23 at 0030, Until Naomi 12/06/23 at 0051 2351 (New Bag - Provider: Miryam Mcneal LPN) 0121 (Stopped - Provider: Miryam Mcneal LPN) NSS infusion () Intravenous, at 75 mL/hr, CONTINUOUS, Starting on Naomi 12/06/23 at 0130, Until Naomi 12/06/23 at 1129 0121 (New Bag - Provider: Miryam Mcneal LPN) PRN Medication Order 12/05/2023 12/06/2023 12/07/2023 Albuterol Sulfate (Proventil) (2.5 MG/3ML) 0.083% inhalation solution 2.5 mg 2.5 mg, Nebulizer, Q4H PRN Dyspnea, Starting on Naomi 12/06/23 at 0255, Until Sun12/07/23 at 2138 melatonin tab 3 mg 3 mg, Oral, HS PRN Sleep, Starting on Naomi 12/06/23 at 2049, Until Sun12/07/23 at 2138 2118 (Given - Provider: Virginie Tenorio RN) perflutren lipid microsphere inj SUSP 1.956 mg () 1.956 mg, Intravenous, ONCE PRN Other, For Echo Only - Suboptimal Echo Images, Starting on Naomi 12/06/23 at 1445, Until Naomi 12/06/23 at 1644, For 2 hours, Administer IVP over 45 seconds, Cardiac Studies_HODHOV 1446 (Given - Provider: Cherelle Thompson LPN - Comment: 5,5ml) documented in this encounter Additional Health Concerns Infection Onset Date Last Indicated Resolved Time Gastrointestinal Rule-Out 12/05/2023 12/05/2023 C. difficile Rule-Out 12/05/2023 12/05/20232023 7:07 AM EDT documented as of this encounter Advance Directives [...] the patient have Health Care Power of Kerrick Kleaner Operator? No Code Status History Code Status Date Activated Date Inactivated Comments Full Code 11/03/2023 12:54 AM 11/03/2023 9:39 PM This order reflects the patients wishes and were consensually agreed upon. Question Answer Comments Discussion of Advance Directives occurred with: Patient Does the patient have a Living Will? No Does the patient have Health Care Power of Kerrick Kleaner Operator? No Full Code 11/27/2019 11:36 AM [...] the patient have Health Care Power of Kerrick Kleaner Operator? No Care Teams [employer] Director Relationship Specialty Start Date End Date Buster Jessica MD [address] [place] [address] PCP - General Family Medicine 09/11/22 documented as of this encounter
--- OUTSIDE RECORDS SUMMARY | 2023-12-11 18:39 | External Medical Summary ---
Author Name Unknown Address Unknown Organization K1G:LABORATORY [facility] - [address] [place] [id number] Laboratory Report Ordering Provider Test Date Status SEVEN HARMAN 12/07/2023 06:05:00 Final Observation Date Value Abnormality Reference (Units ) Status WBC, Total 12/07/2023 06:05:00 8.02 4.00-10.8 0 (K/uL) Final RBC 12/07/2023 06:05:00 3.79 4.50-5.25 (M/uL) Final Hemoglobin 12/07/2023 06:05:00 11.0 Below low normal 14 .0-16.8 (g/dL) Final HCT 12/07/2023 06:05:00 34.0 Below low normal 40. 0-48.4 (%) Final MCV 12/07/2023 06:05:00 89.7 82.0-99.5 (fL) Final MCH 12/07/2023 06:05:00 29.0 27.0-34.0 (pg) Final MCHC 12/07/2023 06:05:00 32.4 32.0-36.0 (g/dL) Final RDW 12/07/2023 06:05:00 15.9 11.5-15.5 (%) Final Platelets 12/07/2023 06:05:00 251 140-400 (K /uL) Final MPV 12/07/2023 06:05:00 10.7 6.6-11.1 ( fL) Final Performing Location LABORATORY [facility] - [facility] [address]
--- OUTSIDE RECORDS SUMMARY | 2023-12-11 18:39 | External Medical Summary ---
Author Name Unknown Address Unknown Organization K1G:LABORATORY [facility] - [address] [place] [id number] Laboratory Report Ordering Provider Test Date Status SEVEN HARMAN 12/05/2023 23:44:45 Final Observation Date Value Abnormality Reference (Units ) Status TSH 12/05/2023 23:44:45 0.79 0.27-4.20 (uIU/mL) Final Performing Location LABORATORY [facility] - [address] [facility] [address]
--- OUTSIDE RECORDS SUMMARY | 2023-12-11 18:39 | External Medical Summary ---
Author Name Unknown Address Unknown Organization K01:LABORATORY [facility] [place] [place] - [address] [address] Laboratory Report Ordering Provider Test Date Status SEVEN HARMAN 12/05/2023 23:44:45 Final Recommended trough therapeut ic ranges:
0.5 to 0.8 for heart failure
0.5 to 1.1 for atrial fibrillation Observation Date Value Abnormality Reference (Units ) Status Digoxin 12/05/2023 23:44:45 1.0 0.5-1.1 (n g/mL) Final Performing Location LABORATORY [facility] [place], [place] - [address] [place] [address]
--- OUTSIDE RECORDS SUMMARY | 2023-12-11 18:39 | External Medical Summary ---
Author Name Unknown Address Unknown Organization K1G:LABORATORY [facility] - [address] [facility] [address] Laboratory Report Ordering Provider Test Date Status SEVEN HARMAN 12/07/2023 06:05:00 Final Warfarin Therapy
INR: 2 .0-3.0 conventional anticoagulation
INR: 2.5- 3.5 high intensity anticoagulation Observation Date Value Abnormality Reference (Units ) Status PT 12/07/2023 06:05:00 14.5 11.6-15.2 (seconds) Final INR 12/07/2023 06:05:00 1.1 0.8-1.2 Final Performing Location LABORATORY [facility] - [address] [facility] [address]
--- OUTSIDE RECORDS SUMMARY | 2023-12-11 18:39 | External Medical Summary ---
Author Name Unknown Address Unknown Organization K1G:LABORATORY [facility] - [address] [facility] [address] Laboratory Report Ordering Provider Test Date Status SEVEN HARMAN 12/06/2023 05:48:00 Final Warfarin Therapy
INR: 2 .0-3.0 conventional anticoagulation
INR: 2.5- 3.5 high intensity anticoagulation Observation Date Value Abnormality Reference (Units ) Status PT 12/06/2023 05:48:00 14.7 11.6-15.2 (seconds) Final INR 12/06/2023 05:48:00 1.1 0.8-1.2 Final Performing Location LABORATORY [facility] - [address] [facility] [address]
--- OUTSIDE RECORDS SUMMARY | 2023-12-11 18:39 | External Medical Summary ---
Author Name Unknown Address Unknown Organization K1G:LABORATORY [facility] - [address] [place] [id number] Laboratory Report Ordering Provider Test Date Status SEVEN HARMAN 12/06/2023 05:48:00 Final Observation Date Value Abnormality Reference (Units ) Status BUN 12/06/2023 05:48:00 30 Above high normal 6-20 (mg/dL) Final Creatinine 12/06/2023 05:48:00 1.6 Above high normal 0.6-1.2 (mg/dL) Final Glomerular filtration rate/1.73 sq M.predicted [Volume Rate/Area] in Serum, Plasma or Blood by Creatinine-based formula (CKD-EPI) 12/06/2023 05:48:00 45 Below low normal >=60 (mL/min) Final eGFR is calculated based on the CKD-EPI 2020 equation Sodium 12/06/2023 05:48:00 133 Below low normal 135 -146 (mmol/L) Final Potassium 12/06/2023 05:48:00 3.0 Below low normal 3.5 -5.1 (mmol/L) Final Cl 12/06/2023 05:48:00 92 Below low normal 98- 107 (mmol/L) Final CO2 12/06/2023 05:48:00 28 22-32 (mmo l/L) Final Anion gap 12/06/2023 05:48:00 13 7-15 (mmol /L) Final Glucose 12/06/2023 05:48:00 113 70-120 (mg /dL) Final Calcium 12/06/2023 05:48:00 8.7 8.4-10.2 ( mg/dL) Final Performing Location LABORATORY [facility] - [address] [facility] [address]
--- OUTSIDE RECORDS SUMMARY | 2023-12-11 18:39 | External Medical Summary | Summary of Care ---
Author Name Unknown Organization [facility] Address [address] [place] [address] Phone [phone] Care Team Providers Care Farm Operations Technical Director Name Role Phone Buster Jessica MD Primary Care P formerly [facility] Reason for Visit * Reason Onset Date Comments [facility]: Maintenance 12/05/2023 Encounter Details Date Type Department Care Team (Late st Contact Info) Description 12/05/2023 Telephone [facility], [facility] Region [address] [place] [address] Region, Nurse [address] [place] [address] [facility]: Maintenance Allergies Active Allergy Reactions Criticality Noted Date Comments Atorvastatin Muscle pain,Unknown 01/18/2015 Medication intolerance, not an allergy Sacubitril-Valsartan Other (Please comment) 09/17/2020 Throat swelled Sacubitril High 07/20/2023 Other Reaction(s): THROAT SWELLING Simvastatin Low 06/23/2022 Other reaction(s): MUSCLE ACHES Valsartan High 07/20/2023 Other Reaction(s): THROAT SWELLING documented as of this encounter (statuses as of 12/06/2023) Medications Medication Sig Dispensed Refills Start Date End Date Status Vitamin C 1000 MG Oral Tablet Take 1 Tablet by mouth in the morning. 0 Suspended Metoprolol Succinate ER 100 MG Oral Tablet Extended Release 24 Hour (toPROL XL) TAKE ONE TABLET BY MOUTH ONCE DAILY 90 Tablet 3 3 Suspended Additional Information Clopidogrel Bisulfate 75 MG Oral Tablet (pLAVix)Indications :PAD (peripheral artery disease) ([facility]),Coronary artery disease involving lower brule coronary artery of lower brule heart without angina pectoris TAKE ONE TABLET BY MOUTH ONCE DAILY 90 Tablet 3 3 Suspended Additional Information Famotidine 20 MG Oral Tablet (Pepcid) TAKE 1 TABLET BY MOUTH TWICE DAILY (MORNING AND AT BEDTIME) 180 Tablet 3 3 Suspended Additional Information Spironolactone 25 MG Oral Tablet (Aldactone)Indicati ons:Coronary artery disease involving lower brule coronary artery of lower brule heart without angina pectoris,Heart failure, systolic, due to CAD ([facility]),Chronic ischemic heart disease,HTN, goal below 140/90 TAKE ONE TABLET BY MOUTH ONCE DAILY 90 Tablet 3 3 Suspended Additional Information Losartan Potassium 25 MG Oral Tablet (Cozaar)Indications :PAD (peripheral artery disease) ([facility]),Coronary artery disease involving lower brule coronary artery of lower brule heart without angina pectoris TAKE ONE TABLET BY MOUTH ONCE DAILY 90 Tablet 3 3 Suspended Additional Information Baclofen 20 MG Oral TabletIndications:C hronic bilateral low back pain without sciatica Take 1 Tablet by mouth 3 times a day as needed for Muscle spasms. 90 Tablet 5 3 Suspended Additional Information Matthew Truongick 140 MG/ML Subcutaneous Solution Auto-injector (evolocumab)Indicat ions:Obstructive sleep apnea,Heart failure, systolic, due to CAD ([facility]),Dyslipidemia, goal LDL below 70,Chronic ischemic heart disease,Tobacco use disorder,Coronary artery disease involving lower brule coronary artery of lower brule heart without angina pectoris Inject 140 mg (1 pen) under the skin every 14 days. 6 mL 3 3 Suspended Additional Information Metoprolol Succinate ER 50 MG Oral Tablet Extended Release 24 Hour (Toprol XL)Indications:Pers istent atrial fibrillation (HCC),Acute on chronic systolic (congestive) heart failure (HCC) One tablet by mouth daily at bedtime, this is in addition to the previous prescription for 100 milligrams daily in the morning. 90 Tablet 3 4 Suspended Additional Information Digoxin 125 MCG Oral Tablet (Lanoxin) Take 1 Tablet by mouth in the morning. 90 Tablet 3 4 Suspended Additional Information ARIPiprazole 2 MG Oral Tablet (Abilify)Indication s:Moderate episode of recurrent major depressive disorder (HCC) Take 1 Tablet by mouth in the morning. 30 Tablet 1 4 Suspended Additional Information Naloxone HCl 4 MG/0.1ML Nasal Liquid (Narcan Nasal) Administer 1 spray into 1 nostril for suspected opioid overdose. Seek immediate medical attention. [email or web address] 1 Each 3 4 Suspended Additional Information Patient not taking.Reported on 10/31/2023 Desvenlafaxine Succinate ER 100 MG Oral Tablet Extended Release 24 Hour (Pristiq)Indication s:Moderate episode of recurrent major depressive disorder (HCC) Take 1 Tablet by mouth in the morning. 30 Tablet 11 4 Suspended Additional Information metOLazone 2.5 MG Oral Tablet (Zaroxolyn)Indicati ons:Ischemic cardiomyopathy Take 1 Tablet by mouth once a week. take 30 minutes prior to torsemide 4 Tablet 5 4 Suspended Additional Information Fluticasone-Salmete rol 250-50 MCG/ACT Inhalation Aerosol Powder Breath Activated (Wixela Inhub)Indications:C OPD, group D, by GOLD 2017 classification ([facility]) Inhale 1 Puff by mouth in the morning and 1 Puff before bedtime. 180 Each 12 4 Suspended Additional Information Albuterol Sulfate (2.5 MG/3ML) 0.083% Inhalation Nebulization Solution (Proventil)Indicati ons:COPD, group D, by GOLD 2017 classification ([facility]) Inhale 1 Vial via nebulizer every 4 hours as needed for Wheezing. 75 mL 1 4 Suspended Additional Information Eliquis 5 MG Oral Tablet (Apixaban)Indicatio ns:Persistent atrial fibrillation (HCC) TAKE 1 TABLET BY MOUTH TWICE DAILY 60 Tablet 11 4 Suspended Additional Information Tamsulosin HCl 0.4 MG Oral Capsule (Flomax)Indications :Benign prostatic hyperplasia (BPH) with post-void dribbling Take 2 Capsules by mouth every evening. 180 Capsule 1 4 Suspended Additional Information Potassium Chloride ER 10 MEQ Oral Tablet Extended ReleaseIndications: HTN, goal below 140/90,Paroxysmal atrial fibrillation (HCC),LBBB (left bundle branch block) Take 2 Tablets by mouth in the morning and 2 Tablets before bedtime. 360 Tablet 1 4 Suspended Additional Information Allopurinol 100 MG Oral Tablet (Zyloprim)Indicatio ns:Acute drug-induced gout of multiple sites Take 2 Tablets by mouth in the morning. 60 Tablet 5 4 Suspended Additional Information HYDROcodone-Acetami nophen 7.5-325 MG Oral TabletIndications:C hronic bilateral low back pain without sciatica,Acute drug-induced gout of right ankle Take 1 Tablet by mouth every 6 hours as needed for Pain, Severe. 120 Tablet 0 4 Suspended Additional Information Nivdf-7-lkmh Ethyl Esters 1 GM Oral Capsule (Lovaza)Indications :Dyslipidemia, goal LDL below 70 Take 2 Capsules by mouth in the morning and 2 Capsules before bedtime. 120 Capsule 5 4 Suspended Additional Information Torsemide 100 MG Oral Tablet (Demadex)Indication s:Heart failure, systolic, due to CAD (HCC) Take 1 tablet by mouth every morning. Take an additional tablet on Sunday, Sunday and Sunday afternoon only. 150 Tablet 3 4 Suspended Additional Information documented as of this encounter (statuses as of 12/06/2023) Active Problems Problem Noted Date Diagnosed Date [...] fibrillation) 09/22/2021 Atherosclerotic heart diseas e of lower brule coronary artery with other forms of angina [...] untreated, BMI 43.71 kg/m, NECK: 21 inches, [place] 6/24, sent for bipap titration study 01/11/11 case per [facility] completed ICD-10 update of inactive term Last Assessment & Plan: Waiting for new bipap machine BMI 35-39 ISOLATED (SEE ACTUAL BMI) 01/17/2010 Overview: Per Obesity Protocol, #19 BPH without obstruction/lower urinary tract symp toms 08/19/2009 Dyslipidemia, goal LDL below 70 07/21/2009 Overview: Per Lipid Taxonomy. documented as of this encounter (statuses as of 12/06/2023) Resolved Problems Problem Noted Date Diagnosed Date [...] 11/22/2020 10/12/2023 Coronary artery disease invo lving lower brule coronary artery of lower brule heart without angina pectoris 07/06/2020 10/12/2023 Chronic [...] 09/23/201305/17 Claudication 05/13/2013 10/12/2023 [employer] Other*[id number] 04/23/2012 09/12/2016 Overview: Study Title: Genomic Markers for Patients with Cardiovascular Disease Project # [id number] Web Pressman: Comfort Aviles MD [phone] Impotence of organic origin 02/16/2011 01/10/2018 Shortness [...] as of this encounter (statuses as of 12/06/2023) Immunizations Name Administration Dates Next Due COVID-19 [...] Patient Refused - pt does not get flu),07/22/2002 TDAP (age 11 and older)(Adacel) 08/19/19 10,09/10/2008(Deferred: [...] deaf or do you have serious difficulty hearing? Yes-very [place] 11/03/2023 Are you blind or do you have serious difficulty seeing, even when wearing glasses? No 11/03/2023 Do you have serious difficul ty walking or climbing stairs? (5 years old or older) Yes 11/03/2023 Do you have difficulty dress ing or bathing? (5 years old or older) No 11/03/2023 Because of a physical, menta l, or emotional condition, do you have difficulty doing errands alone such as visiting a doctor s office or shopping? (15 years old or older) No 11/03/19 Cognitive Status Response Date of Assessm ent Because of a physical, menta l, or emotional condition, do you have serious difficulty concentrating, remembering, or making decisions? (5 years old or older) No 11/03/2023 documented as of this encounter Miscellaneous Notes * Telephone Encounter - Bridget Ray RN - 12/06/2023 7:09 AM EDT [facility] ED [facility] Notification Date: 12/06/2023 Time: 7:09 AM [facility] Subprogram: Focused Care Management (3-9 months) [facility] Episode Start Date: No linked episodes [facility] Enrollment Status: Currently Enrolled Action Taken on [employer] Alert and Outcome of ED Visit: Review ONLY: Admitted to Inpatient Bridget Ray RN * Telephone Encounter - Miryam Patel RN - 12/05/2023 4:49 PM EDT TT notification of patient arrival to [facility] ED, Increased weakness and Fatigue Pending Dx and Disposition Follow up call set Sabi Patel RN, BSN [facility] Intake Triage Coordinator [phone] documented in this encounter Plan of Treatment Upcoming Encounters Date Type Department Care Team (Late st Contact Info) Description 12/10/2023 9:15 AM EDT Hospital Encounter [facility], Operating Room [facility] [address] [place] [phone] Freeman Beaulieu, DO [address] [place] [phone] 12/10/2023 9:15 AM EDT - 12/10/2023 9:40 AM EDT Surgery OR [facility], Operating Room [facility] [address] [place] [phone] Freeman Beaulieu, DO [address] [place] [phone] INJECTION SACROILIAC JOINT 12/12/2023 10:00 AM EDT Rehab Services Physical Therapy [address] [place] [phone] Valorie Valdivia, [address] Dimitri [address] [place] [address] 12/12/2023 12:15 PM EDT [facility] [place] [address] [place] [address] Xochitl Marina, [facility] [address] [place] [address] 12/13/2023 9:50 AM EDT Office Visit Family Practice [address] [phone] Buster Jessica MD [address] [place] [address] 12/14/2023 11:30 AM EDT Rehab Services Physical Therapy [address] [phone] Valorie Valdivia, [address] [address] 12/17/2023 11:30 AM EDT Rehab Services Physical Therapy [address] [phone] Valorie Valdivia, ELECTRIC METER TECHNICIAN [address] [place] [address] 12/19/2023 10:45 AM EDT Rehab Services [address] [phone] Valorie Valdivia, [address] [address] 12/20/2023 1:30 PM EDT Telemedicine [facility] [place], [place] [address] [place] [address] Grisel Richter, MAYRA [address] [place] [address] Clary Eastman, Community Health Programming Manager [address] [place] [address] 12/24/2023 10:45 AM EDT Rehab Services [address] [phone] Marleni Quarles, PT [address] [place] [address] 12/26/2023 10:00 AM EDT Rehab Services Physical Therapy [address] [phone] Valorie Valdivia, ELECTRIC METER TECHNICIAN 68 [facility] [address] [place] [address] 01/01/2024 10:00 AM EDT Home Visit [facility] [place], [facility] [address] [place] [address] Lisa Tenorio RN [address] [place] [address] 01/02/2024 10:45 AM EDT Rehab Services Physical Therapy [facility] [address] [phone] Marleni Quarles, PT [address] [place] [address] 01/04/2024 10:45 AM EDT Rehab Services Physical Therapy [facility] [address] [phone] Valorie Valdivia, ELECTRIC METER TECHNICIAN [address] [address] 01/15/2024 10:40 AM EDT Office Visit Sleep Disorders Ctr [facility] 132 [facility] [place] [phone] Clair Quarles DO 132 [facility] [place] [address] 04/22/2024 9:30 AM EDT Cardiac Studies Cardiology, [facility] [address] [facility] [place] [address] [facility] [address] [facility] [place] [address] 05/19/2024 9:30 AM EDT Appointment Radiology, [facility] [address] [phone] Scheduled Procedures Name Priority Associated Diagnoses Date/Ti me INJECTION SACROILIAC JOINT Inflammation of sacroiliac joint (HCC) 12/10/2023 9:15 AM EDT COLONOSCOPY FLEXIBLE PROXIMAL DIAGNOSTIC Recall History of colon polyps Health Maintenance Due Date Last Done Comments Sigmoidoscopy 1994 Fecal Occult Blood Test 08/20/2010 08/20/2009 *ADVANCE DIRECTIVE NOT ON FILE 05/28/2019 COVID-19 Vaccine ( - season) 2023 11/08/2020, 10/08/2020 DISCUSS TOBACCO CESSATION (REFER TO SMARTSET #3298) 06/02/2023 06/02/2022, 07/21/2020 Depression, Most Recent Score >= 10 (will fire each visit until score < 10) 08/30/2023 08/29/2023 Influenza Vaccine (FLU shot) (Season Ended) 2024 05/11/2022, 06/09/2021, 04/13/2020, Additional history exists GFR 12/05/2024 12/06/2023, 08/2023, 12/05/2023, Additional history exists O2 ASSESSMENT COMPLETED IN PAST YEAR FOR COPD 12/05/2024 12/06/2023 Cologuard 10/10/2025 10/10/2022, 08/2022, 10/04/2022, Additional history [...] this encounter Medical Devices Implanted Type Area Belt Picker Device Identifier Shelf Expiration Date Model / Serial / Lot 32mm X 109mm, Zenith Fenestrated Aaa Endovascular Proximal Body Graft, Two Proximal Internal Stent Implanted:Qty: 1 on 04/15/2018 by Evens Hoyt MD at OR [facility] N/A: Aorta [employer] 03/20/2021 LISA-P-2- 32-109-R / / [id number] Stent Graft [id number] - [id number] - [id number] Implanted:Qty: 1 on 04/15/2018 by Evens Hoyt MD at OR [facility] Right: Renal Artery GETINGE : MAQUET 11/30/2020 33247 / [id number] / [id number] Stent Graft [id number] - [id number] - [id number] Implanted:Qty: 1 on 04/15/2018 by Evens Hoyt MD at OR [facility] Right: Renal Artery GETINGE : MAQUET 11/30/2020 94308 / [id number] / [id number] 28mm X 76mm Distal, 12mm Ipsilateral Leg, Zenith Fenestrated Aaa Endovascular Distal Bifurcated Body Graft Implanted:Qty: 1 on 04/15/2018 by Evens Hoyt MD at OR [facility] N/A: Aorta [employer] 03/20/2021 LISA-D-12 -28-76-C / / [id number] Graft Iliac Leg Spirlz [id number] - [id number] Implanted:Qty: 1 on 04/15/2018 by Evens Hoyt MD at OR [facility] Left: Iliac [employer] 09/14/2020 [id number] / / [id number] Graft Iliac Leg Spirlz 93j48ge - [id number] Implanted:Qty: 1 on 04/15/2018 by Evens Hoyt MD at OR [facility] Right: Iliac [employer] 11/09/2020 [id number] / / [id number] Transfixation Pin 6mm 294.950 - [id number] Implanted:Qty: 1 on 11/14/2019 by Mayank Friedman MD at OR [facility] Right: Ankle SYNTHES 294.950 / / Description:transfixation pi n Screw Schanz 5.7hrb962kg - [id number] Implanted:Qty: 2 on 11/14/2019 by Mayank Friedman MD at OR [facility] Right: Leg Lower SYNTHES 294.786SH A / / Description:self drilling sh antz screws 5.0mm x 200mm [place] Trauma 2.7 Lock Screw 16mm Implanted:Qty: 2 on 11/27/2019 by Donavan Ramirez Jr., MD at OR [facility] Right: Ankle ESTHELA : TRAUMA [id number] / / Description:hardware set [place] Trauma 2.7 Lock Screw 14mm Implanted:Qty: 1 on 11/27/2019 by Donavan Ramirez Jr., MD at OR [facility] Right: Ankle ESTHELA : TRAUMA [id number] / / [place] Trauma 3.5 Screw 14mm Implanted:Qty: 1 on 11/27/2019 by Donavan Ramirez Jr., MD at OR [facility] Right: Ankle ESTHELA : TRAUMA [id number] / / Description:hardware set [place] Trauma 3.5 Screw 18mm Implanted:Qty: 1 on 11/27/2019 by Donavan Ramirez Jr., MD at OR [facility] Right: Ankle ESTHELA : TRAUMA [id number] / / Description:hardware set [place] 3.5 Lockscrew 16mm Implanted:Qty: 1 on 11/27/2019 by Donavan Ramirez Jr., MD at OR [facility] Right: Ankle [id number] / / [place]hela 2.0 Plate Implanted:Qty: 1 on 11/27/2019 by Donavan Ramirez Jr., MD at OR [facility] Right: Ankle [id number] / / [place] 2.0 Lock Screw Implanted:Qty: 2 on 11/27/2019 by Donavan Ramirez Jr., MD at OR [facility] Right: Ankle [id number] / / [place]a 2.0 Lock Screw Implanted:Qty: 1 on 11/27/2019 by Donavan Ramirez Jr., MD at OR [facility] Right: Ankle [id number] / / [place] 2.0 Lock Screw Implanted:Qty: 1 on 11/27/2019 by Donavan Ramirez Jr., MD at OR [facility] Right: Ankle [id number] / / Plate Fib 5h - [id number] Implanted:Qty: 1 on 11/27/2019 by Donavan Ramirez Jr., MD at OR [facility] Right: Ankle ESTHELA : TRAUMA / / Description:hardware set documented as of this encounter Additional Health Concerns Infection Onset Date Last Indicated Resolved Time Gastrointestinal Rule-Out 12/05/2023 12/05/2023 C. difficile Rule-Out 12/05/2023 12/05/2023 documented as of this encounter Advance Directives Latest Code Status on File Code Status Date Activated Date Inactivated Comments Full Code 12/06/2023 12:43 AM This order reflects the patients wishes and were consensually agreed upon. Question Answer Comments Discussion of Advance Directives occurred with: Patient Prior Does the patient have a Living Will? No Does the patient have Health Care Power of Die Designer? No Code Status History Code Status Date Activated Date Inactivated Comments Full Code 11/03/2023 12:54 AM 11/03/2023 9:39 PM This order reflects the patients wishes and were consensually agreed upon. Question Answer Comments Discussion of Advance Directives occurred with: Patient Does the patient have a Living Will? No Does the patient have Health Care Power of Die Designer? No Full Code 11/27/2019 11:36 AM 11/27/2019 [...] the patient have Health Care Power of Die Designer? No Care Teams Farm Operations Technical Director Relationship Specialty Start Date End Date Buster Jessica MD [address] [place] [address] PCP - General Family Medicine 09/11/22 documented as of this encounter
--- OUTSIDE RECORDS SUMMARY | 2023-12-11 18:39 | External Medical Summary ---
Author Name Unknown Address Unknown Organization K1G:LABORATORY [facility] - [facility] [address] Laboratory Report Ordering Provider Test Date Status SEVEN HARMAN 12/06/2023 05:48:00 Final Observation Date Value Abnormality Reference (Units ) Status Phosphate 12/06/2023 05:48:00 3.1 2.5-4.8 (m g/dL) Final Performing Location LABORATORY [facility] - [address] [facility] [address]
--- OUTSIDE RECORDS SUMMARY | 2023-12-11 18:39 | External Medical Summary ---
Author Name Unknown Address Unknown Organization K1G:LABORATORY [facility] - [address] [place] [phone] Laboratory Report Ordering Provider Test Date Status LINSEY LEON 12/07/2023 12:50:00 Final Observation Date Value Abnormality Reference (Units ) Status Potassium 12/07/2023 12:50:00 3.6 3.5-5.1 (m mol/L) Final Performing Location LABORATORY [facility] - [address] [facility] [phone]
--- OUTSIDE RECORDS SUMMARY | 2023-12-11 18:39 | External Medical Summary | Summary of Care ---
Author Name Unknown Organization [facility] Address [address] [place] [address] Phone [phone] Care Team Providers Care Arresting Gear Operator Name Role Phone Buster Jessica MD Primary Care P [facility] Encounter Details Date Type Department Care Team (Late st Contact Info) Description 12/10/2023 Population Health External Data Unspecified Department Allergies Active Allergy Reactions Criticality Noted Date [...] Oral Tablet (pLAVix)Indications: PAD (peripheral artery disease) ([facility]),Coronary artery disease involving cherokee coronary artery of cherokee heart without angina pectoris TAKE ONE TABLET BY MOUTH ONCE DAILY 90 Tablet 3 03/13/2023 Active Famotidine 20 MG Oral Tablet (Pepcid) TAKE 1 TABLET BY MOUTH TWICE DAILY (MORNING AND AT BEDTIME) 180 Tablet 3 04/30/2023 Active Spironolactone 25 MG Oral Tablet (Aldactone)Indicatio ns:Coronary artery disease involving cherokee coronary artery of cherokee heart without angina pectoris,Heart failure, systolic, due to CAD ([facility]),Chronic ischemic heart disease,HTN, goal below 140/90 TAKE ONE TABLET BY MOUTH ONCE DAILY 90 Tablet 3 05/14/2023 Active Losartan Potassium 25 MG Oral Tablet (Cozaar)Indications: PAD (peripheral artery disease) ([facility]),Coronary artery disease involving cherokee coronary artery of cherokee heart without angina pectoris TAKE ONE TABLET BY MOUTH ONCE DAILY 90 Tablet 3 06/04/2023 Active Baclofen 20 MG Oral TabletIndications:Ch ronic bilateral low back pain without sciatica Take 1 Tablet by mouth 3 times a day as needed for Muscle spasms. 90 Tablet 5 06/06/2023 Active Repatha SureClick 140 MG/ML Subcutaneous Solution Auto-injector (evolocumab)Indicati ons:Obstructive sleep apnea,Heart failure, systolic, due to CAD ([facility]),Dyslipidemia, goal LDL below 70,Chronic ischemic heart disease,Tobacco use disorder,Coronary artery disease involving cherokee coronary artery of cherokee heart without angina pectoris Inject 140 mg (1 pen) under the skin every 14 days. 6 mL 3 07/02/2023 Active Metoprolol Succinate ER 50 MG Oral Tablet Extended Release 24 Hour (Toprol XL)Indications:Persi stent atrial fibrillation ([facility]),Acute on chronic systolic (congestive) heart failure ([facility]) One tablet by mouth daily at bedtime, this is in addition to the previous prescription for 100 milligrams daily in the morning. 90 Tablet 3 08/23/2023 Active Digoxin 125 MCG Oral Tablet (Lanoxin) Take 1 Tablet by mouth in the morning. 90 Tablet 3 08/23/2023 Active ARIPiprazole 2 MG Oral Tablet (Abilify)Indications :Moderate episode of recurrent major depressive disorder ([facility]) Take 1 Tablet by mouth in the morning. 30 Tablet 1 09/06/2023 Active Naloxone HCl 4 MG/0.1ML Nasal Liquid (Narcan Nasal) Administer 1 spray into 1 nostril for suspected opioid overdose. Seek immediate medical attention. [email or web address] 1 Each 3 09/15/2023 Active Desvenlafaxine Succinate ER 100 MG Oral Tablet Extended Release 24 Hour (Pristiq)Indications :Moderate episode of recurrent major depressive disorder (HCC) Take 1 Tablet by mouth in the morning. 30 Tablet 11 09/21/2023 Active Fluticasone-Salmeter ol 250-50 MCG/ACT Inhalation Aerosol Powder Breath Activated (Wixela Inhub)Indications:CO PD, group D, by GOLD 2017 classification ([facility]) Inhale 1 Puff by mouth in the morning and 1 Puff before bedtime. 180 Each 12 10/29/2023 Active Albuterol Sulfate (2.5 MG/3ML) 0.083% Inhalation Nebulization Solution (Proventil)Indicatio ns:COPD, group D, by GOLD 2017 classification ([facility]) Inhale 1 Vial via nebulizer every [...] Pain, Severe. 120 Tablet 0 11/14/2023 Active Zcnyz-1-boks Ethyl Esters 1 GM Oral Capsule (Lovaza)Indications: [...] fibrillation) 09/22/2021 Atherosclerotic heart diseas e of cherokee coronary artery with other forms of angina [...] untreated, BMI 43.71 kg/m, NECK: 21 inches, [place] 6/24, sent for bipap titration study 01/11/11 [...] failure 09/06/2023 10/12/2023 Atrial fibrillation 08/14/2023 10/12/19 Body mass index (BMI) of 40. 0 [...] 11/22/2020 10/12/2023 Coronary artery disease invo lving cherokee coronary artery of cherokee heart without angina pectoris 07/06/2020 10/12/2023 Chronic [...] 09/23/201305/17 Claudication 05/13/2013 10/12/2023 [employer] Other*[id number] 04/23/2012 09/12/2016 Overview: Study Title: Genomic Markers for Patients with Cardiovascular Disease Project # [id number] Graphic Design Teacher: Comfort Aviles MD [phone] Impotence of organic origin 02/16/2011 01/10/2018 Shortness [...] money to buy more. Never true 08/29/19 Within the past 12 months, t he [...] No 12/06/2023 documented as of this encounter Plan of Treatment Upcoming Encounters Date Type Department Care Team ([facility] Contact Info) Description 12/12/2023 10:00 AM EDT Rehab Services Physical Therapy [address] [phone] Valorie Valdivia, [address] [address] 12/12/2023 12:15 PM EDT [facility] [place] [address] [place] [address] Xochitl Marina, [facility] [address] [place] [address] 12/13/2023 9:50 AM EDT Office Visit Family [address] [phone] Buster Jessica MD [address] [place] [address] 12/14/2023 11:30 AM EDT Rehab Services Physical [address] [phone] Valorie Valdivia, [address] [address] 12/17/2023 11:30 AM EDT Rehab Services Physical [address] [phone] Valorie Valdivia, ZIPPER SETTER LOCKSTITCH [address] [place] [address] 12/19/2023 10:45 AM EDT Rehab Services Physical Therapy [address] [phone] Valorie Valdivia, ZIPPER SETTER LOCKSTITCH [address] [place] [address] 12/20/2023 1:30 PM EDT Telemedicine [facility], [facility] [address] [place] [address] Grisel Richter CRNP [address] [place] [address] Clary Eastman, [facility] Grinder [facility][note 2] [place] [address] 12/24/2023 10:45 AM EDT Rehab Services Physical [address] [phone] Marleni Quarles, PT [address] [place] [address] 12/26/2023 10:00 AM EDT Rehab Services Physical [address] [phone] Valorie Valdivia, ZIPPER SETTER LOCKSTITCH [address] [place] [address] 01/01/2024 10:00 AM EDT Home Visit [facility], [facility] [address] [place] [address] Lisa Tenorio, [place] [address] [place] [address] 01/02/2024 10:45 AM EDT Rehab Services Physical [address] [phone] Marleni Quarles, PT [address] [place] [address] 01/04/2024 8:25 AM EDT Hospital Encounter [facility], Operating Room [facility] [address] [place] [phone] Freeman Beaulieu, DO [address] [place] [phone] 01/04/2024 8:25 AM EDT - 01/04/2024 8:50 AM EDT Surgery OR [facility], Operating Room [facility] [address] [place] [phone] Freeman Beaulieu, DO [address] [place] [phone] INJECTION SACROILIAC JOINT 01/04/2024 10:45 AM EDT Rehab Services Physical Therapy [facility] [address] [facility] [address] [place] [address] Valorie Valdivia, ZIPPER SETTER LOCKSTITCH [address] [facility] [address] [place] [address] 01/15/2024 10:40 AM EDT Office Visit [facility] [address] [place] [phone] Clair Quarles, DO [address] [place] [address] 04/22/2024 9:30 AM EDT Cardiac Studies Cardiology, [facility] [address] [place] [address] [facility] [address] [place] [address] 05/19/2024 9:30 AM EDT Appointment Radiology, [facility] [address] [place] [address] Scheduled Procedures Name Priority Associated [...] 04/13/2020, Additional history exists GFR 12/06/2024 12/07/2023, 05/0 09/2023, 12/05/2023, Additional history exists O2 ASSESSMENT COMPLETED IN PAST YEAR FOR COPD 12/06/2024 12/07/2023 Cologuard 10/10/2025 10/10/2022, 03/0 08/2022, 10/04/2022, Additional history exists Albumin/Creatinine Ratio [...] this encounter Medical Devices Implanted Type Area Oracle Erp Developer Device Identifier Shelf Expiration Date Model / Serial / Lot 32mm X 109mm, Zenith Fenestrated Aaa Endovascular Proximal Body Graft, Two Proximal Internal Stent Implanted:Qty: 1 on 04/15/2018 by Evens Hoyt MD at OR [facility] N/A: Aorta [employer] 03/20/2021 ZFKEDAR-P-2- 32-109-R / / [id number] Stent Graft [id number] - [id number] - [id number] Implanted:Qty: 1 on 04/15/2018 by Evens Hoyt MD at OR [facility] Right: Renal Artery GETINGE : MAQUET 11/30/2020 [id number] / [id number] / [id number] Stent Graft [id number] - [id number] - [id number] Implanted:Qty: 1 on 04/15/2018 by Evens Hoyt MD at OR [facility] Right: Renal Artery GETINGE : MAQUET 11/30/2020 [id number] / [id number] / [id number] 28mm X 76mm Distal, 12mm Ipsilateral Leg, Zenith Fenestrated Aaa Endovascular Distal Bifurcated Body Graft Implanted:Qty: 1 on 04/15/2018 by Evens Hoyt MD at OR [facility] N/A: Aorta [employer] 03/20/2021 ZFKEDAR-D-12 -28-76-C / / [id number] Graft Iliac Leg Spirlz [id number] - [id number] Implanted:Qty: 1 on 04/15/2018 by Evens Hoyt MD at OR [facility] Left: Iliac [employer] 09/14/2020 [id number] / / [id number] Graft Iliac Leg Spirlz [id number] - [id number] Implanted:Qty: 1 on 04/15/2018 by Evens Hoyt MD at OR [facility] Right: Iliac [employer] 11/09/2020 [id number] / / [id number] Transfixation Pin 6mm 294.950 - [id number] Implanted:Qty: 1 on 11/14/2019 by Mayank Friedman MD at OR [facility] Right: Ankle SYNTHES 294.950 / / Description:transfixation pi n Screw Schanz 5.7lzn456kb - [id number] Implanted:Qty: 2 on 11/14/2019 by Mayank Friedman MD at OR [facility] Right: Leg Lower SYNTHES 294.786SH A / / Description:self drilling sh antz screws 5.0mm x 200mm Esthela Trauma 2.7 Lock Screw 16mm Implanted:Qty: 2 on 11/27/2019 by Donavan Ramirez Jr., MD at OR [facility] Right: Ankle ESTHELA : TRAUMA [id number] / / Description:hardware set [place] Trauma 2.7 Lock Screw 14mm Implanted:Qty: 1 on 11/27/2019 by Donavan Ramirez Jr., MD at OR [facility] Right: Ankle ESTHELA : TRAUMA [id number] / / Esthela Trauma 3.5 Screw 14mm Implanted:Qty: 1 on 11/27/2019 by Donavan Ramirez Jr., MD at OR [facility] Right: Ankle ESTHELA : TRAUMA [id number] / / Description:hardware set [place] Trauma 3.5 Screw 18mm Implanted:Qty: 1 on 11/27/2019 by Donavan Ramirez Jr., MD at OR [facility] Right: Ankle ESTHELA : TRAUMA [id number] / / Description:hardware set [place] 3.5 Lockscrew 16mm Implanted:Qty: 1 on 11/27/2019 by Donavan Ramirez Jr., MD at OR [facility] Right: Ankle [id number] / / [place] 2.0 Plate Implanted:Qty: 1 on 11/27/2019 by Donavan Ramirez Jr., MD at OR [facility] Right: Ankle [id number] / / [place] 2.0 Lock Screw Implanted:Qty: 2 on 11/27/2019 by Donavan Ramirez Jr., MD at OR [facility] Right: Ankle [id number] / / [place] 2.0 Lock Screw Implanted:Qty: 1 on 11/27/2019 by Donavan Ramirez Jr., MD at [facility] Right: Ankle [id number] / / [place] 2.0 Lock Screw Implanted:Qty: 1 on 11/27/2019 by Donavan Ramirez Jr., MD at OR [facility] Right: Ankle [id number] / / Plate Fib 5h - [id number] Implanted:Qty: 1 on 11/27/2019 by Donavan Ramirez Jr., MD at OR [facility] Right: Ankle ESTHELA : TRAUMA [...] the patient have Health Care Power of Handmade Tile Artist? No Code Status History Code Status Date Activated Date Inactivated Comments Full Code 11/03/2023 12:54 AM 11/03/2023 9:39 PM This order reflects the patients wishes and were consensually agreed upon. Question Answer Comments Discussion of Advance Directives occurred with: Patient Does the patient have a Living Will? No Does the patient have Health Care Power of Handmade Tile Artist? No Full Code 11/27/2019 11:36 AM 11/27/2019 [...] the patient have Health Care Power of Handmade Tile Artist? No Care Teams Arresting Gear Operator Relationship Specialty Start Date End Date Buster Jessica MD [address] [place] [address] [place] [address] PCP - General Family Medicine 09/11/22 documented as of this encounter
--- OUTSIDE RECORDS SUMMARY | 2023-12-11 18:39 | External Medical Summary ---
Author Name Unknown Address Unknown Organization [id number]:LABORATORY [facility] - [address] [place] [id number] Laboratory Report Ordering Provider Test Date Status SEVEN HARMAN 12/07/2023 06:05:00 Final Observation Date Value Abnormality Reference (Units ) Status BUN 12/07/2023 06:05:00 19 6-20 (mg/dL) Final Creatinine 12/07/2023 06:05:00 0.9 0.6-1.2 (mg/dL) Final Glomerular filtration rate/1.73 sq M.predicted [Volume Rate/Area] in Serum, Plasma or Blood by Creatinine-based formula (CKD-EPI) 12/07/2023 06:05:00 86 >=60 (mL/min) Final eGFR is calculated based on the CKD-EPI 2020 equation Sodium 12/07/2023 06:05:00 135 135-146 (m mol/L) Final Potassium 12/07/2023 06:05:00 3.3 Below low normal 3.5 -5.1 (mmol/L) Final Cl 12/07/2023 06:05:00 96 Below low normal 98- 107 (mmol/L) Final CO2 12/07/2023 06:05:00 25 22-32 (mmo l/L) Final Anion gap 12/07/2023 06:05:00 14 7-15 (mmol /L) Final Glucose 12/07/2023 06:05:00 145 Above high normal 70 -120 (mg/dL) Final Calcium 12/07/2023 06:05:00 8.9 8.4-10.2 ( mg/dL) Final Performing Location LABORATORY [facility] - [address] [facility] [address]
--- OUTSIDE RECORDS SUMMARY | 2023-12-11 18:39 | External Medical Summary ---
Author Name Unknown Address Unknown Organization [id number]:[facility] [address] [place] [address] Laboratory Report Ordering Provider Test Date Status SEVEN HARMAN 12/06/2023 01:20:47 Final Observation Date Value Abnormality Reference (Units ) Status Osmolality 12/06/2023 01:20:47 282 278-305 ( mOsm/kg) Final Performing Location LABORATORY [facility] - [address] [place] [address]
--- OUTSIDE RECORDS SUMMARY | 2023-12-11 18:39 | External Medical Summary | Summary of Care ---
Author Name Unknown Organization [facility] Address [address] [place] [address] Phone [phone] Care Team Providers Care Solar Energy Sales Specialist Name Role Phone Buster Jessica MD Primary Care P [facility] Encounter Details Date Type Department Care Team (Late st Contact Info) Description 12/06/2023 Population Health External Data Unspecified Department Allergies [...] Oral Tablet (pLAVix)Indications :PAD (peripheral artery disease) ([facility]),Coronary artery disease involving alatna coronary artery of alatna heart without angina pectoris TAKE ONE TABLET BY MOUTH ONCE DAILY 90 Tablet 3 3 Suspended Additional Information Famotidine 20 MG Oral Tablet (Pepcid) TAKE 1 TABLET BY MOUTH TWICE DAILY (MORNING AND AT BEDTIME) 180 Tablet 3 3 Suspended Additional Information Spironolactone 25 MG Oral Tablet (Aldactone)Indicati ons:Coronary artery disease involving alatna coronary artery of alatna heart without angina pectoris,Heart failure, systolic, due to CAD ([facility]),Chronic ischemic heart disease,HTN, goal below 140/90 TAKE ONE TABLET BY MOUTH ONCE DAILY 90 Tablet 3 3 Suspended Additional Information Losartan Potassium 25 MG Oral Tablet (Cozaar)Indications :PAD (peripheral artery disease) ([facility]),Coronary artery disease involving alatna coronary artery of alatna heart without angina pectoris TAKE ONE TABLET BY MOUTH ONCE DAILY 90 Tablet 3 3 Suspended Additional Information Baclofen 20 MG Oral TabletIndications:C hronic bilateral low back pain without sciatica Take 1 Tablet by mouth 3 times a day as needed for Muscle spasms. 90 Tablet 5 3 Suspended Additional Information Repatha SureClick 140 MG/ML Subcutaneous Solution Auto-injector (evolocumab)Indicat ions:Obstructive sleep apnea,Heart failure, systolic, due to CAD ([facility]),Dyslipidemia, goal LDL below 70,Chronic ischemic heart disease,Tobacco use disorder,Coronary artery disease involving alatna coronary artery of alatna heart without angina pectoris Inject 140 mg (1 pen) under the skin every 14 days. 6 mL 3 3 Suspended Additional Information Metoprolol Succinate ER 50 MG Oral Tablet Extended Release 24 Hour (Toprol XL)Indications:Pers istent atrial fibrillation ([facility]),Acute on chronic systolic (congestive) heart failure ([facility]) One tablet by mouth daily at bedtime, this is in addition to the previous prescription for 100 milligrams daily in the morning. 90 Tablet 3 4 Suspended Additional Information Digoxin 125 MCG Oral Tablet (Lanoxin) Take 1 Tablet by mouth in the morning. 90 Tablet 3 4 Suspended Additional Information ARIPiprazole 2 MG Oral Tablet (Abilify)Indication s:Moderate episode of recurrent major depressive disorder ([facility]) Take 1 Tablet by mouth in the morning. 30 Tablet 1 4 Suspended Additional Information Naloxone HCl 4 MG/0.1ML Nasal Liquid (Narcan Nasal) Administer 1 spray into 1 nostril for suspected opioid overdose. Seek immediate medical attention. [email or web address] 1 Each 3 4 Suspended Additional Information [...] OPD, group D, by GOLD 2017 classification ([facility]) Inhale 1 Puff by mouth in the morning and 1 Puff before bedtime. 180 Each 12 4 Suspended Additional Information Albuterol Sulfate (2.5 MG/3ML) 0.083% Inhalation Nebulization Solution (Proventil)Indicati ons:COPD, group D, by GOLD 2017 classification ([facility]) Inhale 1 Vial via nebulizer every 4 hours as needed for Wheezing. 75 mL 1 4 Suspended Additional Information Eliquis 5 MG Oral Tablet (Apixaban)Indicatio ns:Persistent atrial fibrillation (HCC) TAKE 1 TABLET BY MOUTH TWICE DAILY 60 Tablet 4 Suspended Additional Information Tamsulosin HCl 0.4 [...] 120 Tablet 0 4 Suspended Additional Information Drybe-4-vhcb Ethyl Esters 1 GM Oral Capsule (Lovaza)Indications [...] fibrillation) 09/22/2021 Atherosclerotic heart diseas e of alatna coronary artery with other forms of angina [...] untreated, BMI 43.71 kg/m, NECK: 21 inches, [place] 6/24, sent for bipap titration study 01/11/11 [...] 11/22/2020 10/12/2023 Coronary artery disease invo lving alatna coronary artery of alatna heart without angina pectoris 07/06/2020 10/12/2023 Chronic [...] 09/23/201305/17 Claudication 05/13/2013 10/12/2023 [employer] Other*[id number] 04/23/2012 09/12/2016 Overview: Study Title: Genomic Markers for Patients with Cardiovascular Disease Project # [id number] Spool Fixer: Comfort Aviles MD [phone] Impotence of organic origin 02/16/2011 01/10/2018 Shortness [...] 12/10/2023 9:15 AM EDT Hospital Encounter [facility], Operating Room [facility] [address] [place] [address] Freeman Beaulieu, DO [address] [place] [address] 12/10/2023 9:15 AM EDT - 12/10/2023 9:40 AM EDT Surgery OR [facility], Operating Room [facility] [address] [place] [address] Freeman Beaulieu, [address] [place] [address] INJECTION SACROILIAC JOINT 12/12/2023 10:00 AM EDT Rehab Services Physical Therapy [address] [place] [phone] Valorie Valdivia, [address] [place] [address] 12/12/2023 12:15 PM EDT [facility] [place] [address] [place] [address] [place] [address] Xochitl Marina, CELIO [address] [place] [address] 12/13/2023 9:50 AM EDT Office Visit [address] [phone] Buster Jessica MD [address] [place] [address] 12/14/2023 11:30 AM EDT Rehab Services Physical Therapy [address] [phone] Valorie Valdivia, [address] [address] 12/17/2023 11:30 AM EDT Rehab Services Physical Therapy [address] [phone] Valorie Valdivia, MACHINE MAINTENANCE SERVICER [address] [place] [address] 12/19/2023 10:45 AM EDT Rehab Services Physical [address] [phone] Valorie Valdivia, MACHINE MAINTENANCE SERVICER [address] [place] [address] 12/20/2023 1:30 PM EDT Telemedicine [facility] [place] [address] [place] [address] Grisel Richter CRNP [address] [place] [address] Clary Eastman, [employer] [facility] [employer] Ax Developer [address] [place] [address] 12/24/2023 10:45 AM EDT Rehab Services Physical Therapy [address] [address] Marleni Quarles, PT [address] [place] [address] 12/26/2023 10:00 AM EDT Rehab Services Physical Therapy [address] [address] Valorie Valdivia, MACHINE MAINTENANCE SERVICER [address] [place] [address] 01/01/2024 10:00 AM EDT Home Visit [facility] [place], [facility] [address] [place] [address] Lisa Tenorio RN [address] [place] [address] 01/02/2024 10:45 AM EDT Rehab Services Physical Therapy [address] [address] Marleni Quarles, PT [address] [place] [address] 01/04/2024 10:45 AM EDT Rehab Services Physical Therapy [address] [address] Valorie Valdivia, MACHINE MAINTENANCE SERVICER [address] [place] [address] 01/15/2024 10:40 AM EDT Office Visit [facility] [place] [phone] Clair Quarles, DO [address] [place] [address] 04/22/2024 9:30 AM EDT Cardiac Studies Cardiology, [facility] [address] [place] [address] [place], Pac[facility] [address] [place] [address] 05/19/2024 9:30 AM EDT Appointment Radiology, [place] [address] [place] [address] Scheduled Procedures Name Priority Associated [...] this encounter Medical Devices Implanted Type Area Cipher Expert Device Identifier Shelf Expiration Date Model / Serial / Lot 32mm X 109mm, Zenith Fenestrated Aaa Endovascular Proximal Body Graft, Two Proximal Internal Stent Implanted:Qty: 1 on 04/15/2018 by Evens Hoyt MD at OR [facility] [place] [place] N/A: Aorta [employer] 03/20/2021 ZFEN-P-2- [id number] / / [id number] Stent Graft [id number] - [id number] - [id number] Implanted:Qty: 1 on 04/15/2018 by Evens Hoyt MD at OR [facility] [place] [place] Right: Renal Artery GETINGE : MAQUET 11/30/2020 89843 / [id number] / [id number] Stent Graft [id number] - [id number] - [id number] Implanted:Qty: 1 on 04/15/2018 by Evens Hoyt MD at OR [facility] [place] [place] Right: Renal Artery GETINGE : MAQUET 11/30/2020 32969 / [id number] / [id number] 28mm X 76mm Distal, 12mm Ipsilateral Leg, Zenith Fenestrated Aaa Endovascular Distal Bifurcated Body Graft Implanted:Qty: 1 on 04/15/2018 by Evens Hoyt MD at OR [facility] [place] [place] N/A: Aorta [employer] 03/20/2021 ZFEN-D-12 -28-76-C / / [id number] Graft Iliac Leg Spirlz 82l60mz - [id number] Implanted:Qty: 1 on 04/15/2018 by Evens Hoyt MD at OR [facility] [place] [place] Left: Iliac [employer] 09/14/2020 [id number] / / [id number] Graft Iliac Leg Spirlz [id number] - [id number] Implanted:Qty: 1 on 04/15/2018 by Evens Hoyt MD at OR [facility] [place] [place] Right: Iliac [employer] 11/09/2020 [id number] / / [id number] Transfixation Pin 6mm 294.950 - [id number] Implanted:Qty: 1 on 11/14/2019 by Mayank Friedman MD at OR [facility] Right: Ankle SYNTHES 294.950 / / Description:transfixation pi n Screw Schanz [id number] - [id number] Implanted:Qty: 2 on 11/14/2019 by Mayank Friedman MD at OR [facility] Right: Leg Lower SYNTHES 294.786SH A / / Description:self drilling sh antz screws 5.0mm x 200mm [place] Trauma 2.7 Lock Screw 16mm Implanted:Qty: 2 on 11/27/2019 by Donavan Ramirez Jr., MD at OR [facility] [place] [place] Right: Ankle ESTHELA : TRAUMA [id number] / / Description:hardware set [place] Trauma 2.7 Lock Screw 14mm Implanted:Qty: 1 on 11/27/2019 by Donavan Ramirez Jr., MD at OR [facility] [place] [place] Right: Ankle ESTHELA : TRAUMA [id number] / / Esthela Trauma 3.5 Screw 14mm Implanted:Qty: 1 on 11/27/2019 by Donavan Ramirez Jr., MD at OR [facility] [place] [place] Right: Ankle ESTHELA : TRAUMA [id number] / / Description:hardware set Esthela Trauma 3.5 Screw 18mm Implanted:Qty: 1 on 11/27/2019 by Donavan Ramirez Jr., MD at OR [facility] [place] [place] Right: Ankle ESTHELA : TRAUMA [id number] / / Description:hardware set [place] 3.5 Lockscrew 16mm Implanted:Qty: 1 on 11/27/2019 by Donavan Ramirez Jr., MD at [facility] Right: Ankle [id number] / / Esthela 2.0 Plate Implanted:Qty: 1 on 11/27/2019 by Donavan Ramirez Jr., MD at [facility] Right: Ankle [id number] / / Esthela 2.0 Lock Screw Implanted:Qty: 2 on 11/27/2019 by Donavan Ramirez Jr., MD at [facility] Right: Ankle [id number] / / Esthela 2.0 Lock Screw Implanted:Qty: 1 on 11/27/2019 by Donavan Ramirez Jr., MD at [facility] Right: Ankle [id number] / / Esthela 2.0 Lock Screw Implanted:Qty: 1 on 11/27/2019 by Donavan Ramirez Jr., MD at OR [facility] [place] [place] Right: Ankle [id number] / / Plate Fib 5h - [id number] Implanted:Qty: 1 on 11/27/2019 by Donavan Ramirez Jr., MD at OR [facility] [place] [place] Right: Ankle ESTHELA : TRAUMA / / [...] the patient have Health Care Power of Data Sme? No Code Status History Code Status Date Activated Date Inactivated Comments Full Code 11/03/2023 12:54 AM 11/03/2023 9:39 PM This order reflects the patients wishes and were consensually agreed upon. Question Answer Comments Discussion of Advance Directives occurred with: Patient Does the patient have a Living Will? No Does the patient have Health Care Power of Data Sme? No Full Code 11/27/2019 11:36 AM 11/27/2019 [...] the patient have Health Care Power of Data Sme? No Care Teams Solar Energy Sales Specialist Relationship Specialty Start Date End Date Buster Jessica MD [address] [place] [phone] PCP - General Family Medicine 09/11/22 documented as of this encounter
--- OUTSIDE RECORDS SUMMARY | 2023-12-11 18:39 | External Medical Summary ---
Author Name Unknown Address Unknown Organization K1G:LABORATORY [facility] - [facility] [address] Laboratory Report Ordering Provider Test Date Status SEVEN HARMAN 12/06/2023 05:48:00 Final Observation Date Value Abnormality Reference (Units ) Status Magnesium 12/06/2023 05:48:00 2.2 1.5-2.6 (m g/dL) Final Performing Location LABORATORY [facility] - [address] [facility] [address]
--- OUTSIDE RECORDS SUMMARY | 2023-12-11 18:40 | External Medical Summary ---
Author Name Unknown Address Unknown Organization K1G:LABORATORY [facility] - [facility] [address] Laboratory Report Ordering Provider Test Date Status SWETA ENGLISH 12/05/2023 23:44:45 Final Observation Date Value Abnormality Reference (Units ) Status BUN 12/05/2023 23:44:45 29 Above high normal 6-20 (mg/dL) Final Creatinine 12/05/2023 23:44:45 1.7 Above high normal 0.6-1.2 (mg/dL) Final Glomerular filtration rate/1.73 sq M.predicted [Volume Rate/Area] in Serum, Plasma or Blood by Creatinine-based formula (CKD-EPI) 12/05/2023 23:44:45 41 Below low normal >=60 (mL/min) Final eGFR is calculated based on the CKD-EPI 2020 equation Sodium 12/05/2023 23:44:45 129 Below low normal 135 -146 (mmol/L) Final Potassium 12/05/2023 23:44:45 3.0 Below low normal 3.5 -5.1 (mmol/L) Final Cl 12/05/2023 23:44:45 89 Below low normal 98- 107 (mmol/L) Final CO2 12/05/2023 23:44:45 24 22-32 (mmo l/L) Final Anion gap 12/05/2023 23:44:45 16 Above high normal 7- 15 (mmol/L) Final Glucose 12/05/2023 23:44:45 112 70-120 (mg /dL) Final Calcium 12/05/2023 23:44:45 7.9 Below low normal 8.4 -10.2 (mg/dL) Final Performing Location LABORATORY [facility] - [address] [facility] [address]
--- OUTSIDE RECORDS SUMMARY | 2023-12-11 18:40 | External Medical Summary ---
Author Name Unknown Address Unknown Organization K01:LABORATORY [facility] [place] - [address] [place] [address] Laboratory Report Ordering Provider Test Date Status SEVEN HARMAN 12/05/2023 23:44:45 Final Less than 0.5 ng/mL: Low ris k for progression to sepsis. Review patients condition for localized infections.

0.5 to 2.0 ng/mL: Intermediate risk for progresion to sepsis. Review underlying conditions. Recommend repeat PCT after 6 hours has elapsed.

Greater than 2.0 ng/mL: high risk for progression to sepsis unless other causes are known. Observation Date Value Abnormality Reference (Units ) Status Procalcitonin [Mass/volume] in Serum or Plasma by Immunoassay 12/05/2023 23:44:45 0.13 Above high normal <0.10 (ng/mL) Final Performing Location LABORATORY [facility] - [address] [place] [address]
--- OUTSIDE RECORDS SUMMARY | 2023-12-11 18:40 | External Medical Summary ---
Author Name Unknown Address Unknown Organization K1G:LABORATORY [facility] - [address] [place] [phone] Laboratory Report Ordering Provider Test Date Status SEVEN HARMAN 12/05/2023 23:44:45 Final Observation Date Value Abnormality Reference (Units ) Status LORETTA 12/05/2023 23:44:45 56 39-308 (U/ L) Final Performing Location LABORATORY [facility] - [address] [facility] [address]
--- OUTSIDE RECORDS SUMMARY | 2023-12-11 18:40 | External Medical Summary ---
Author Name Unknown Address Unknown Organization K1G:LABORATORY [facility] - [address] [facility] [address] Laboratory Report Ordering Provider Test Date Status GHAZALSEVEN 12/05/2023 23:44:45 Final Observation Date Value Abnormality Reference (Units ) Status Albumin 12/05/2023 23:44:45 3.2 Below low normal 3.8-5.0 (g/dL) Final AST (Aspartate aminotransferase) 12/05/2023 23:44:45 12 10-50 (U/L) Final Alk Phos 12/05/2023 23:44:45 55 35-130 (U/L) Final ALT (Alanine aminotransferase) 12/05/2023 23:44:45 11 10-50 (U/L) Final Bilirubin, Total 12/05/2023 23:44:45 0.5 <=1.2 (mg/dL) Final Bilirubin, Direct 12/05/2023 23:44:45 <0.2 0.0-0.3 (mg/dL) Final Protein 12/05/2023 23:44:45 5.8 Below low normal 6.0-8.3 (g/dL) Final Performing Location LABORATORY [facility] [address] [facility] [address]
--- OUTSIDE RECORDS SUMMARY | 2023-12-11 18:40 | External Medical Summary ---
Author Name Unknown Address Unknown Organization K1G:LABORATORY [facility] - [address] [place] [id number] Laboratory Report Ordering Provider Test Date Status SEVEN HARMAN 12/05/2023 23:44:45 Final Exclude Heart Failure: <300 pg/mL
Diagnose Heart Failure:
Age <50 yr: >450 pg/mL
50-75 yr: >900 pg/mL
>75 yr: >1800 pg/mL
GFR is 30-59 mL/min: >1200 pg/mL or Age- adjusted values
GFR <30 mL/min: do not use, not reliable

Prognostic threshold: 1000 pg/mL Observation Date Value Abnormality Reference (Units ) Status BNP, Pro-hormone 12/05/2023 23:44:45 1080 Above high no rmal <300 (pg/mL) Final Performing Location LABORATORY [facility] - [address] [place] [address]
--- OUTSIDE RECORDS SUMMARY | 2023-12-11 18:40 | External Medical Summary ---
Author Name Unknown Address Unknown Organization K1G:LABORATORY [facility] - [address] [place] [address] Laboratory Report Ordering Provider Test Date Status SEVEN HARMAN 12/05/2023 23:44:45 Final Observation Date Value Abnormality Reference (Units ) Status Troponin T 12/05/2023 23:44:45 48 Above high normal < =22 (ng/L) Final Performing Location LABORATORY [facility] - [address] [place] [address]
--- OUTSIDE RECORDS SUMMARY | 2023-12-11 18:40 | External Medical Summary ---
Author Name Unknown Address Unknown Organization K1G:LABORATORY [facility] - [facility] [address] Laboratory Report Ordering Provider Test Date Status SEVEN HARMAN 12/05/2023 23:44:45 Final Observation Date Value Abnormality Reference (Units ) Status Magnesium 12/05/2023 23:44:45 1.7 1.5-2.6 (m g/dL) Final Performing Location LABORATORY [facility] - [address] [facility] [address]
--- OUTSIDE RECORDS SUMMARY | 2023-12-11 18:40 | External Medical Summary | Summary of Care ---
Author Name Unknown Organization [facility] Address [address] [place] [address] Phone [phone] Care Team Providers Care Certified Medical Assistant Name Role Phone Buster Jessica MD Primary Care [facility] Reason for Visit * Reason Onset Date Comments [facility]: Maintenance 12/05/2023 Encounter Details Date Type Department Care Team (Late st Contact Info) Description 12/05/2023 Telephone [facility], [facility] [address] [place] [address] [place], Nurse [address] [place] [address] [facility]: Maintenance Allergies Active Allergy Reactions Criticality Noted Date Comments Atorvastatin Muscle pain,Unknown 01/18/2015 Medication intolerance, not an allergy Sacubitril-Valsartan Other (Please comment) 09/17/2020 Throat swelled Sacubitril High 07/20/2023 Other Reaction(s): THROAT SWELLING Simvastatin Low 06/23/2022 Other reaction(s): MUSCLE ACHES Valsartan High 07/20/2023 Other Reaction(s): THROAT SWELLING documented as of this encounter (statuses as of 12/05/2023) Medications Medication Sig Dispensed Refills Start Date [...] (peripheral artery disease) (HCC),Coronary artery disease involving yomba shoshone coronary artery of yomba shoshone heart without angina pectoris TAKE ONE TABLET BY MOUTH ONCE DAILY 90 Tablet 3 03/13/2023 Active Famotidine 20 MG Oral Tablet (Pepcid) TAKE 1 TABLET BY MOUTH TWICE DAILY (MORNING AND AT BEDTIME) 180 Tablet 3 04/30/2023 Active Spironolactone 25 MG Oral Tablet (Aldactone)Indicatio ns:Coronary artery disease involving yomba shoshone coronary artery of yomba shoshone heart without angina pectoris,Heart failure, systolic, due to CAD ([facility]),Chronic ischemic heart disease,HTN, goal below 140/90 TAKE ONE TABLET BY MOUTH ONCE DAILY 90 Tablet 3 05/14/2023 Active Losartan Potassium 25 MG Oral Tablet (Cozaar)Indications: PAD (peripheral artery disease) ([facility]),Coronary artery disease involving yomba shoshone coronary artery of yomba shoshone heart without angina pectoris TAKE ONE TABLET [...] heart disease,Tobacco use disorder,Coronary artery disease involving yomba shoshone coronary artery of yomba shoshone heart without angina pectoris Inject 140 mg [...] suspected opioid overdose. Seek immediate medical attention. [email or web address] 1 Each 3 09/15/2023 Active Additional Information Patient not taking.Reported on 10/31/2023 Desvenlafaxine Succinate ER 100 MG Oral Tablet Extended Release 24 Hour (Pristiq)Indications :Moderate episode of recurrent major depressive disorder (HCC) Take 1 Tablet by mouth in the morning. 30 Tablet 11 09/21/2023 Active metOLazone 2.5 MG Oral Tablet (Zaroxolyn)Indicatio ns:Ischemic cardiomyopathy Take 1 Tablet by mouth once a week. take 30 minutes prior to torsemide 4 Tablet 5 10/22/2023 Active Fluticasone-Salmeter ol 250-50 MCG/ACT Inhalation Aerosol Powder Breath Activated (Wixela Inhub)Indications:CO PD, group D, by GOLD 2017 classification ([facility]) Inhale 1 Puff by mouth in the morning and 1 Puff before bedtime. 180 Each 12 10/29/2023 Active Albuterol Sulfate (2.5 MG/3ML) 0.083% Inhalation Nebulization Solution (Proventil)Indicatio ns:COPD, group D, by GOLD 2017 classification ([facility]) Inhale 1 Vial via nebulizer [...] every evening. 180 Capsule 1 10/31/2023 Active Potassium Chloride ER 10 MEQ Oral Tablet Extended ReleaseIndications:H TN, goal below 140/90,Paroxysmal atrial fibrillation (HCC),LBBB (left bundle branch block) Take 2 Tablets by mouth in the morning and 2 Tablets before bedtime. 360 Tablet 1 10/31/2023 Active Allopurinol 100 MG Oral [...] Pain, Severe. 120 Tablet 0 11/14/2023 Active Hcodt-9-rken Ethyl Esters 1 GM Oral Capsule (Lovaza)Indications: Dyslipidemia, goal LDL below 70 Take 2 Capsules by mouth in the morning and 2 Capsules before bedtime. 120 Capsule 5 11/14/2023 Active Torsemide 100 MG Oral Tablet (Demadex)Indications :Heart failure, systolic, due to CAD (HCC) Take 1 tablet by mouth every morning. Take an additional tablet on Sunday, Sunday and Sunday afternoon only. 150 Tablet 3 11/22/2023 Active documented as of this encounter (statuses as of 12/05/2023) Active Problems Problem Noted Date Diagnosed Date Ambulatory dysfunction 11/03/2023 Leukocytosis 11/03/2023 Hypokalemia 11/03/2023 [...] fibrillation) 09/22/2021 Atherosclerotic heart diseas e of yomba shoshone coronary artery with other forms of angina [...] untreated, BMI 43.71 kg/m, NECK: 21 inches, [place] 01/27, sent for bipap titration study 01/11/11 case per [facility] completed ICD-10 update of inactive term Last Assessment & Plan: Waiting for new bipap machine BMI 35-39 ISOLATED (SEE ACTUAL BMI) 01/17/2010 Overview: Per Obesity Protocol, #19 BPH without obstruction/lower urinary tract symp toms 08/19/2009 Dyslipidemia, goal LDL below 70 07/21/2009 Overview: Per Lipid Taxonomy. documented as of this encounter (statuses as of 12/05/2023) Resolved Problems Problem Noted Date Diagnosed Date [...] 11/22/2020 10/12/2023 Coronary artery disease invo lving yomba shoshone coronary artery of yomba shoshone heart without angina pectoris 07/06/2020 10/12/2023 Chronic [...] 09/23/201305/17 Claudication 05/13/2013 10/12/2023 [employer] Other*[id number] 04/23/2012 09/12/2016 Overview: Study Title: Genomic Markers for Patients with Cardiovascular Disease Project # [id number] Toddler Lead Teacher: Comfort Aviles MD [phone] Impotence of organic origin 02/16/2011 01/10/2018 Shortness [...] as of this encounter (statuses as of 12/05/2023) Immunizations Name Administration Dates Next Due COVID-19 [...] do you have serious difficulty hearing? Yes-very YUHAAVIATAM 11/03/2023 Are you blind or do you [...] (15 years old or older) No 11/03/19 24 Cognitive Status Response Date of Assessm ent Because of a physical, menta l, or emotional condition, do you have serious difficulty concentrating, remembering, or making decisions? (5 years old or older) No 11/03/2023 documented as of this encounter Miscellaneous Notes * Telephone Encounter - Miryam Patel, CLARENCE - 12/05/2023 4:49 PM EDT TT notification of patient arrival to [facility] ED, Increased weakness and Fatigue Pending Dx and Disposition Follow up call set Sabi Patel RN, BSN [facility] Intake Triage Coordinator [phone] documented in this encounter Plan of Treatment Upcoming Encounters Date Type Department Care Team (Late st Contact Info) Description 12/06/2023 12:30 PM EDT Scheduled Telephone [facility], [facility] [address] [place] [address] Coordinator, [facility] [address] [place] [address] 12/06/2023 5:15 PM EDT Scheduled Telephone [facility], [facility] [address] [place] [address] Coordinator, [facility] [address] [place] [address] 12/10/2023 9:15 AM EDT Hospital Encounter [facility], Operating Room [facility] [address] [place] [phone] Freeman Beaulieu DO [address] [place] [address] 12/10/2023 9:15 AM EDT - 12/10/2023 9:40 AM EDT Surgery OR [facility], Operating Room [facility] [address] [place] [phone] Freeman Beaulieu, DO [address] [place] [address] INJECTION SACROILIAC JOINT 12/12/2023 10:00 AM EDT Rehab Services Physical Therapy [address] [phone] Valorie Valdivia, [address] [address] 12/12/2023 12:15 PM EDT Home Visit [facility] [place], [facility] [address] [place] [address] Xochitl Marina, [facility] [address] [place] [address] 12/13/2023 9:50 AM EDT Office Visit Family [address] [phone] Buster Jessica MD [address] [place] [address] 12/14/2023 11:30 AM EDT Rehab Services Physical Therapy [address] [phone] Valorie Valdivia, [employer] [address] [place] [address] 12/17/2023 11:30 AM EDT Rehab Services Physical Therapy [address] [phone] Valorei Valdivia, [employer] [address] [place] [address] 12/19/2023 10:45 AM EDT Rehab Services Physical Therapy [address] [phone] Valorie Valdivia, [employer] [address] [place] [address] 12/20/2023 1:30 PM EDT Telemedicine [facility], [facility] [address] [place] [address] Grisel Richter CRNP [address] [place] [address] Clary Eastman, [facility] Work[facility] [address] [place] [address] 12/24/2023 10:45 AM EDT Rehab Services Physical Therapy [address] [phone] Marleni Quarles, PT [address] [place] [address] 12/26/2023 10:00 AM EDT Rehab Services Physical Therapy [address] [phone] Valorie Valdivia, [address] [address] 01/01/2024 10:00 AM EDT Home Visit [facility], [facility] [address] [place] [address] Lisa Tenorio RN [address] [place] [address] 01/02/2024 10:45 AM EDT Rehab Services Physical Therapy [facility] 68 [facility] [address] [place] [phone] Marleni Quarles, PT [address] [place] [address] 01/04/2024 10:45 AM EDT Rehab Services Physical Therapy [facility] 68 [facility] [address] [place] [address] Valorie Valdivia, [employer] 68 [facility] [address] [place] [address] 01/15/2024 10:40 AM EDT Office Visit [facility] [phone] Clair Quarles DO 132 [facility] [place] [address] 04/22/2024 9:30 AM EDT Cardiac Studies Cardiology, [facility] 132 [facility] [place] [address] [facility] 132 [facility] [place] [address] 05/19/2024 9:30 AM EDT Appointment Radiology, [id number] [place] [address] Scheduled Procedures Name Priority Associated Diagnoses Date/Ti me INJECTION SACROILIAC JOINT Inflammation of sacroiliac joint (HCC) 12/10/2023 9:15 AM EDT COLONOSCOPY FLEXIBLE PROXIMAL DIAGNOSTIC Recall History of colon polyps Health Maintenance Due Date Last Done Comments Sigmoidoscopy 1994 Fecal Occult Blood Test 08/20/2010 08/20/2009 *ADVANCE DIRECTIVE NOT ON FILE 05/28/2019 COVID-19 Vaccine (3 - season) 2023 11/08/2020, 10/08/2020 DISCUSS TOBACCO CESSATION (REFER TO SMARTSET #4779) 06/02/2023 06/02/2022, 07/21/2020 Depression, Most Recent Score >= 10 (will fire each visit until score < 10) 08/30/2023 08/29/2023 Influenza Vaccine (FLU shot) (Season Ended) 2024 05/11/2022, 06/09/2021, 04/13/2020, Additional history exists GFR 11/02/2024 11/03/2023, 10/05, 10/30/2023, Additional history exists O2 ASSESSMENT COMPLETED IN PAST YEAR FOR COPD 12/04/2024 12/05/2023 Cologuard 10/10/2025 10/10/2022, 03/0 08/2022, 10/04/2022, Additional [...] this encounter Medical Devices Implanted Type Area Activities Assistant Device Identifier Shelf Expiration Date Model / Serial / Lot 32mm X 109mm, Zenith Fenestrated Aaa Endovascular Proximal Body Graft, Two Proximal Internal Stent Implanted:Qty: 1 on 04/15/2018 by Evens Hoyt MD at [facility] N/A: Aorta [employer] 03/20/2021 ZFEN-P-2- [id number] / / [id number] Stent Graft [id number] - [id number] - [id number] Implanted:Qty: 1 on 04/15/2018 by Evens Hoyt MD at OR [facility] Right: Renal Artery GETINGE : MAQUET 11/30/2020 34452 / [id number] / [id number] Stent Graft [id number] - [id number] - [id number] Implanted:Qty: 1 on 04/15/2018 by Evens Hoyt MD at OR [facility] Right: Renal Artery GETINGE : MAQUET 11/30/2020 45206 / [id number] / [id number] 28mm X 76mm Distal, 12mm Ipsilateral Leg, Zenith Fenestrated Aaa Endovascular Distal Bifurcated Body Graft Implanted:Qty: 1 on 04/15/2018 by Evens Hoyt MD at OR [facility] N/A: Aorta [employer] 03/20/2021 [id number]-D-12 -28-76-C / / [id number] Graft Iliac Leg Spirlz 45s27rl - [id number] Implanted:Qty: 1 on 04/15/2018 by Evens Hoyt MD at OR [facility] Left: Iliac [employer] 09/14/2020 [id number] / / [id number] Graft Iliac Leg Spirlz 79n90zu - [id number] Implanted:Qty: 1 on 04/15/2018 by Evens Hoyt MD at OR [facility] Right: Iliac [employer] 11/09/2020 [id number] / / [id number] Transfixation Pin 6mm 294.950 - [id number] Implanted:Qty: 1 on 11/14/2019 by Mayank Friedman MD at OR [facility] Right: Ankle SYNTHES 294.950 / / Description:transfixation pi n Screw Schanz [id number] - [id number] Implanted:Qty: 2 on 11/14/2019 by Mayank Friedman MD at OR [facility] Right: Leg Lower SYNTHES 294.786SH A / / Description:self drilling sh antz screws 5.0mm x 200mm Thornton Trauma 2.7 Lock Screw 16mm Implanted:Qty: 2 on 11/27/2019 by Donavan Ramirez Jr., MD at OR [facility] Right: Ankle ESTHELA : TRAUMA [id number] / / Description:hardware set Esthela Trauma 2.7 Lock Screw 14mm Implanted:Qty: 1 on 11/27/2019 by Donavan Ramirez Jr., MD at OR [facility] Right: Ankle ESTHELA : TRAUMA [id number] / / Thornton Trauma 3.5 Screw 14mm Implanted:Qty: 1 on 11/27/2019 by Donavan Ramirez Jr., MD at OR [facility] Right: Ankle ESTHELA : TRAUMA [id number] / / Description:hardware set Thornton Trauma 3.5 Screw 18mm Implanted:Qty: 1 on 11/27/2019 by Donavan Ramirez Jr., MD at OR [facility] Right: Ankle ESTHELA : TRAUMA [id number] / / Description:hardware set Esthela 3.5 Lockscrew 16mm Implanted:Qty: 1 on 11/27/2019 by Donavan Ramirez Jr., MD at OR [facility] Right: Ankle [id number] / / Thornton 2.0 Plate Implanted:Qty: 1 on 11/27/2019 by Donavan Ramirez Jr., MD at OR [facility] Right: Ankle [id number] / / Esthela 2.0 Lock Screw Implanted:Qty: 2 on 11/27/2019 by Donavan Ramirez Jr., MD at OR [facility] Right: Ankle [id number] / / Thornton 2.0 Lock Screw Implanted:Qty: 1 on 11/27/2019 by Donavan Ramirez Jr., MD at OR [facility] Right: Ankle [id number] / / Esthela 2.0 Lock Screw Implanted:Qty: 1 on 11/27/2019 by Donavan Ramirez Jr., MD at OR [facility] Right: Ankle [id number] / / Plate Fib - [id number] Implanted:Qty: 1 on 11/27/2019 by James Espino, Donavan Carlin MD at [facility] Right: Ankle ESTHELA : TRAUMA / / Description:hardware set documented as of this encounter Advance Directives [...] the patient have Health Care Power of Contact Center Manager? No Code Status History Code Status Date Activated Date Inactivated Comments Full Code 11/27/2019 11:36 AM 11/27/2019 4:45 [...] the patient have Health Care Power of Contact Center Manager? No Full Code 02/17/2019 12:06 PM 02/18/2019 1:09 PM This order reflects the patients wishes and were consensually agreed upon. Question Answer Comments Discussion of Advance Directives occurred with: Not Discussed Does the patient have a Living Will? No Does the patient have Health Care Power of Contact Center Manager? No Care Teams Certified Medical Assistant Relationship Specialty Start Date End Date Buster Jessica MD [address] [place] [address] PCP - General Family Medicine 09/11/22 documented as of this encounter
--- OUTSIDE RECORDS SUMMARY | 2023-12-11 18:40 | External Medical Summary ---
Author Name Unknown Address Unknown Organization K1G:LABORATORY [facility] - [facility] [address] Laboratory Report Ordering Provider Test Date Status SEVEN HARMAN 12/05/2023 23:44:45 Final Observation Date Value Abnormality Reference (Units ) Status Phosphate 12/05/2023 23:44:45 3.5 2.5-4.8 (m g/dL) Final Performing Location [facility] [address]
--- OUTSIDE RECORDS SUMMARY | 2023-12-11 18:40 | External Medical Summary | Summary of Care ---
Author Name Unknown Organization [facility] Address [address] [place] [address] Phone [phone] Care Team Providers Care Painter Hand Name Role Phone Buster Jessica MD Primary Care P formerly [facility] Encounter Details Date Type Department Care Team (Late st Contact Info) Description 12/05/2023 3:30 PM EDT Home Visit Care Coordination and Integration [address], [place] [phone] Kaitlyn Ivy, Community Health Metal Engraver [address], [place] [phone] Allergies Active Allergy Reactions Criticality Noted Date [...] Oral Tablet (pLAVix)Indications: PAD (peripheral artery disease) ([facility]),Coronary artery disease involving [place] coronary artery of [place] heart without angina pectoris TAKE ONE TABLET BY MOUTH ONCE DAILY 90 Tablet 3 03/13/2023 Active Famotidine 20 MG Oral Tablet (Pepcid) TAKE 1 TABLET BY MOUTH TWICE DAILY (MORNING AND AT BEDTIME) 180 Tablet 3 04/30/2023 Active Spironolactone 25 MG Oral Tablet (Aldactone)Indicatio ns:Coronary artery disease involving [place] coronary artery of [place] heart without angina pectoris,Heart failure, systolic, due to CAD ([facility]),Chronic ischemic heart disease,HTN, goal below 140/90 TAKE ONE TABLET BY MOUTH ONCE DAILY 90 Tablet 3 05/14/2023 Active Losartan Potassium 25 MG Oral Tablet (Cozaar)Indications: PAD (peripheral artery disease) ([facility]),Coronary artery disease involving [place] coronary artery of [place] heart without angina pectoris TAKE ONE TABLET BY MOUTH ONCE DAILY 90 Tablet 3 06/04/2023 Active Baclofen 20 MG Oral TabletIndications:Ch ronic bilateral low back pain without sciatica Take 1 Tablet by mouth 3 times a day as needed for Muscle spasms. 90 Tablet 5 06/06/2023 Active Repatha SureClick 140 MG/ML Subcutaneous Solution Auto-injector (evolocumab)Indicati ons:Obstructive sleep apnea,Heart failure, systolic, due to CAD ([facility]),Dyslipidemia, goal LDL below 70,Chronic ischemic heart disease,Tobacco use disorder,Coronary artery disease involving [place] coronary artery of [place] heart without angina pectoris Inject 140 mg (1 pen) under the skin every 14 days. 6 mL 3 07/02/2023 Active Metoprolol Succinate ER 50 MG Oral Tablet Extended Release 24 Hour (Toprol XL)Indications:Persi stent atrial fibrillation (HCC),Acute on chronic systolic (congestive) heart failure ([facility]) One tablet by mouth daily at bedtime, [...] suspected opioid overdose. Seek immediate medical attention. [email or web address] 1 Each 3 09/15/2023 Active Additional Information [...] PD, group D, by GOLD 2017 classification ([facility]) Inhale 1 Puff by mouth in the morning and 1 Puff before bedtime. 180 Each 12 10/29/2023 Active Albuterol Sulfate (2.5 MG/3ML) 0.083% Inhalation Nebulization Solution (Proventil)Indicatio ns:COPD, group D, by GOLD 2017 classification ([facility]) Inhale 1 Vial via nebulizer every 4 [...] Pain, Severe. 120 Tablet 0 11/14/2023 Active Vhxlr-8-rcgs Ethyl Esters 1 GM Oral Capsule (Lovaza)Indications: [...] fibrillation) 09/22/2021 Atherosclerotic heart diseas e of [place] coronary artery with other forms of angina [...] untreated, BMI 43.71 kg/m, NECK: 21 inches, [place] 6/24, sent for bipap titration study 01/11/11 case per P completed ICD-10 update of inactive term Last [...] 11/22/2020 10/12/2023 Coronary artery disease invo lving [place] coronary artery of [place] heart without angina pectoris 07/06/2020 10/12/2023 Chronic [...] 09/23/201305/17 Claudication 05/13/2013 10/12/2023 [employer] Other*[id number] 04/23/2012 09/12/2016 Overview: Study Title: Genomic Markers for Patients with Cardiovascular Disease Project # [id number] Care Technician: Comfort Aviles MD [phone] Impotence of organic origin 02/16/2011 01/10/2018 Shortness [...] Sign Reading Time Taken Comments Blood Pressure 78/40 12/05/2023 4:02 PM EDT Pulse 60 12/05/2023 4:01 PM EDT Temperature - - Respiratory Rate 16 12/05/2023 4:01 PM EDT Oxygen Saturation 99% 12/05/2023 4:01 PM EDT Inhaled Oxygen Concentration - - Weight - - Height - - Body Mass Index - - documented in this encounter Functional Status Functional Status Response Date of Assess ment Are you deaf or do you have serious difficulty hearing? Yes-very [place] 11/03/2023 Are you blind or do you [...] No 11/03/2023 documented as of this encounter Progress Notes * Kaitlyn Ivy, Community Health Metal Engraver - 12/05/2023 4:03 PM EDT Telemedicine visit: No Community Health Metal Engraver (JESSICA) documentation: Arrived at pts home. Checked pt bp. BP 78/40 (BP Site: Left Arm, BP Position: Sitting, BP Cuff Size: Large) | Pulse 60 | Resp 16 | SpO2 99% TT to RN, advised pt to go to ED for fluids and labs. Pt will go pov Pt is feeling weak and has diarrhea x 2 days. Kaitlyn Ivy Community Health Worker [phone] [email or web address] documented in this encounter Plan of Treatment Upcoming Encounters Date Type Department Care Team (Late st Contact Info) Description 12/06/2023 5:15 PM EDT Scheduled Telephone [facility] at Home, [place] [address] [place] [phone] Coordinator, [facility] [address] [place] [address] 12/10/2023 9:15 AM EDT Hospital Encounter OR [facility], Operating Room [facility] [address] [place] [phone] Freeman Beaulieu, DO [address] [place] [phone] 12/10/2023 9:15 AM EDT - 12/10/2023 9:40 AM EDT Surgery OR O[facility], Operating Room [facility] [address] [place] [phone] Freeman Beaulieu, DO [address] [place] [phone] INJECTION SACROILIAC JOINT 12/12/2023 10:00 AM EDT Rehab Services Physical Therapy [address] [phone] Valorie Valdivia, RUBBER PRODUCTION MACHINE OPERATOR [address] [place] [address] 12/12/2023 12:15 PM EDT Home Visit [facility], [place] [address] [place] [address] Xochitl Marina, [facility] [address] [place] [address] 12/13/2023 9:50 AM EDT Office Visit Family [address] [phone] Buster Jessica MD [address] [place] [address] 12/14/2023 11:30 AM EDT Rehab Services Physical Therapy [address] [phone] Valorie Valdivia, RUBBER PRODUCTION MACHINE OPERATOR [address] [place] [address] 12/17/2023 11:30 AM EDT Rehab Services Physical Therapy [address] [phone] Valorie Valdivia, RUBBER PRODUCTION MACHINE OPERATOR [address] [place] [address] 12/19/2023 10:45 AM EDT Rehab Services Physical [address] [phone] Valorie Valdivia, [address] [address] 12/20/2023 1:30 PM EDT Telemedicine [facility], [place] [address] [place] [address] Grisel Richter CRNP [address] [place] [address] Clary Eastman, Community Health Metal Engraver [address] [place] [address] 12/24/2023 10:45 AM EDT Rehab Services [facility] Therapy [address] [phone] Marleni Quarles, PT [address] [place] [address] 12/26/2023 10:00 AM EDT Rehab Services Physical Therapy [address] [phone] Valorie Valdivia, RUBBER PRODUCTION MACHINE OPERATOR [address] [place] [address] 01/01/2024 10:00 AM EDT Home Visit [facility], [place] [address] [place] [address] Lisa Tenorio RN [address] [place] [address] 01/02/2024 10:45 AM EDT Rehab Services Physical Therapy [facility] [address] [facility] [address] [place] [phone] Marleni Quarles, PT [address] [place] [address] 01/04/2024 10:45 AM EDT Rehab Services Physical Therapy [facility] [address] [facility] [address] [place] [phone] Valorie Valdivia, RUBBER PRODUCTION MACHINE OPERATOR 68 [facility] [address] [place] [address] 01/15/2024 10:40 AM EDT Office Visit [facility] [phone] Clair Quarles DO [facility] [phone] 04/22/2024 9:30 AM EDT Cardiac Studies Cardiology, [facility] [address] [facility] [place] [address] [facility] 132 [facility] [place] [address] 05/19/2024 9:30 AM EDT Appointment Radiology, Matt [address] [phone] Scheduled Procedures Name Priority Associated Diagnoses Date/Ti [...] this encounter Medical Devices Implanted Type Area Sample Tailor Device Identifier Shelf Expiration Date Model / Serial / Lot 32mm X 109mm, Zenith Fenestrated Aaa Endovascular Proximal Body Graft, Two Proximal Internal Stent Implanted:Qty: 1 on 04/15/2018 by Evens Hoyt MD at OR [facility] N/A: Aorta [employer] 03/20/2021 LISA-P-2- 32-109-R / / [id number] Stent Graft [id number] - [id number] - [id number] Implanted:Qty: 1 on 04/15/2018 by Evens Hoyt MD at OR [facility] Right: Renal Artery GETINGE : MAQUET 11/30/2020 62012 / [id number] / [id number] Stent Graft [id number] - [id number] - [id number] Implanted:Qty: 1 on 04/15/2018 by Evens Hoyt MD at OR [facility] Right: Renal Artery GETINGE : MAQUET 11/30/2020 08447 / [id number] / [id number] 28mm X 76mm Distal, 12mm Ipsilateral Leg, Zenith Fenestrated Aaa Endovascular Distal Bifurcated Body Graft Implanted:Qty: 1 on 04/15/2018 by Evens Hoyt MD at OR [facility] N/A: Aorta [employer] 03/20/2021 LISA-D-12 -28-76-C / / [id number] Graft Iliac Leg Spirlz 87g31dp - [id number] Implanted:Qty: 1 on 04/15/2018 by Evens Hoyt MD at OR [facility] Left: Iliac [employer] 09/14/2020 [id number] / / [id number] Graft Iliac Leg Spirlz 97g00zt - [id number] Implanted:Qty: 1 on 04/15/2018 by Evens Hoyt MD at OR [facility] Right: Iliac [employer] 11/09/2020 [id number] / / [id number] Transfixation Pin 6mm 294.950 - [id number] Implanted:Qty: 1 on 11/14/2019 by Mayank Friedman MD at OR [facility] Right: Ankle SYNTHES 294.950 / / Description:transfixation pi n Screw Schanz 5.0ido271gj - [id number] Implanted:Qty: 2 on 11/14/2019 by Mayank Friedman MD at OR [facility] Right: Leg Lower SYNTHES 294.786SH A / / Description:self drilling sh antz screws 5.0mm x 200mm Esthela Trauma 2.7 Lock Screw 16mm Implanted:Qty: 2 on 11/27/2019 by Donavan Ramirez Jr., MD at OR [facility] Right: Ankle ESTHELA : TRAUMA [id number] / / Description:hardware set [place] Trauma 2.7 Lock Screw 14mm Implanted:Qty: 1 on 11/27/2019 by Donavan Ramirez Jr., MD at OR [facility] Right: Ankle ESTHELA : TRAUMA [id number] / / [place] Trauma 3.5 Screw 14mm Implanted:Qty: 1 on 11/27/2019 by Donavan Ramirez Jr., MD at OR [facility] Right: Ankle ESTHELA : TRAUMA 199936 / / Description:hardware set Esthela Trauma 3.5 Screw 18mm Implanted:Qty: 1 on 11/27/2019 by Donavan Ramirez Jr., MD at OR [facility] Right: Ankle ESTHELA : TRAUMA [id number] / / Description:hardware set Esthela 3.5 Lockscrew 16mm Implanted:Qty: 1 on 11/27/2019 by Donavan Ramirez Jr., MD at OR [facility] Right: Ankle [id number] / / Esthela 2.0 Plate Implanted:Qty: 1 on 11/27/2019 by Donavan Ramirez Jr., MD at OR [facility] Right: Ankle [id number] / / Esthela 2.0 Lock Screw Implanted:Qty: 2 on 11/27/2019 by Donavan Ramirez Jr., MD at OR [facility] Right: Ankle [id number] / / [place] 2.0 Lock Screw Implanted:Qty: 1 on 11/27/2019 by Donavan Rmairez Jr., MD at OR [facility] Right: Ankle [id number] / / Esthela 2.0 Lock Screw Implanted:Qty: 1 on 11/27/2019 by Donavan Ramirez Jr., MD at OR [facility] Right: Ankle [id number] / / Plate Fib 5h - [id number] Implanted:Qty: 1 on 11/27/2019 by Donavan Ramirez Jr., MD at OR [facility] Right: Ankle ESTHELA : TRAUMA / / [...] the patient have Health Care Power of Sales Attendant Building Materials? No Code Status History Code Status Date [...] the patient have Health Care Power of Sales Attendant Building Materials? No Full Code 02/17/2019 12:06 PM 02/18/2019 1:09 PM This order reflects the patients wishes and were consensually agreed upon. Question Answer Comments Discussion of Advance Directives occurred with: Not Discussed Does the patient have a Living Will? No Does the patient have Health Care Power of Sales Attendant Building Materials? No Care Teams Painter Hand Relationship Specialty Start Date End Date Buster Jessica MD [address] [place] [phone] PCP - General Family Medicine 09/11/22 documented as of this encounter"
--- OUTSIDE RECORDS SUMMARY | 2023-12-11 18:40 | External Medical Summary ---
Author Name Unknown Address Unknown Organization [id number]:LABORATORY [facility] - [address] [place] [phone] Laboratory Report Ordering Provider Test Date Status TAMEKASWETA 12/05/2023 22:33:45 Final Observation Date Value Abnormality Reference (Units ) Status Lactic Acid, Whole Blood 12/05/2023 22:33:45 1.9 0.4-2.0 (mmol/L) Final Performing Location LABORATORY [facility] - [address] [facility] [phone]
--- OUTSIDE RECORDS SUMMARY | 2023-12-11 18:41 | External Medical Summary ---
Author Name Unknown Address Unknown Organization K1G:LABORATORY [facility] - [address] [place] [phone] Laboratory Report Ordering Provider Test Date Status SWETA ENGLISH 12/05/2023 17:23:14 Final Observation Date Value Abnormality Reference (Units ) Status Lactic Acid, Whole Blood 12/05/2023 17:23:14 2.9 Above high normal 0.4-2.0 (mmol/L) Final Performing Location LABORATORY [facility] - [address] [facility] [phone]
--- OUTSIDE RECORDS SUMMARY | 2023-12-11 18:41 | External Medical Summary ---
Author Name Unknown Address Unknown Organization K01:LABORATORY [facility] - [address] [place] [address] Laboratory Report Ordering Provider Test Date Status SEVEN HARMAN 12/05/2023 20:00:21 Final Observation Date Value Abnormality Reference (Units ) Status Sodium, Urine 12/05/2023 20:00:21 42 (mmol/ L) Final Performing Location [facility] - [address] [place] [address]
--- OUTSIDE RECORDS SUMMARY | 2023-12-11 18:41 | External Medical Summary ---
Author Name Unknown Address Unknown Organization K1G:LABORATORY [facility] - [address] [facility] [phone] Laboratory Report Ordering Provider Test Date Status SWETA ENGLISH 12/05/2023 20:00:21 Final Observation Date Value Abnormality Reference (Units ) Status Color of Urine by Auto 12/05/2023 20:00:21 Yellow Light Yellow, Yellow, Dark Yellow Final Clarity, Urine 12/05/2023 20:00:21 Clear Clear Final Glucose [Mass/volume] in Urine by Automated test strip 12/05/2023 20:00:21 Negative Negative (mg/dL) Final Bilirubin.total [Presence] in Urine by Automated test strip 12/05/2023 20:00:21 Negative Negative Final Ketones [Mass/volume] in Urine by Automated test strip 12/05/2023 20:00:21 Negative Negative (mg/dL) Final Specific gravity, Urine 12/05/2023 20:00:21 1.009 1.003-1.030 Final Hemoglobin [Presence] in Urine by Automated test strip 12/05/2023 20:00:21 Negative Negative Final pH, Urine 12/05/2023 20:00:21 5.5 5.0-7.5 (Units) Final Protein [Mass/volume] in Urine by Automated test strip 12/05/2023 20:00:21 Negative Negative (mg/dL) Final Urobilinogen [Mass/volume] in Urine by Automated test strip 12/05/2023 20:00:21 0.2 0.2, 1.0 (mg/dL) Final Nitrite [Presence] in Urine by Automated test strip 12/05/2023 20:00:21 Negative Negative Final Leukocyte esterase [Presence] in Urine by Automated test strip 12/05/2023 20:00:21 Negative Negative Final RBC, Urine 12/05/2023 20:00:21 0-2 0-2 (/HPF) Final WBC, Urine 12/05/2023 20:00:21 0-2 0-2 (/HPF) Final Bacteria [#/area] in Urine sediment by Microscopy high power field 12/05/2023 20:00:21 0-25 0-25 (/HPF) Final Performing Location LABORATORY [facility] - [address] [facility] [address]
--- OUTSIDE RECORDS SUMMARY | 2023-12-11 18:41 | External Medical Summary | Summary of Care ---
Author Name Unknown Organization [facility] Address [address] [place] [address] Phone [phone] Care Team Providers Care Waxing Machine Operator Helper Name Role Phone Buster Jsesica MD Primary [facility] Reason for Visit * Reason Onset Date Comments [facility]: Acute 12/05/2023 Encounter Details Date Type Department Care Team (Late st Contact Info) Description 12/05/2023 Telephone [facility], [facility] [address] [place], [place] [phone] [facility], Nurse [facility] [address] [place] [address] [facility]: Acute Allergies Active Allergy Reactions Criticality Noted Date [...] (peripheral artery disease) (HCC),Coronary artery disease involving nome coronary artery of nome heart without angina pectoris TAKE ONE TABLET BY MOUTH ONCE DAILY 90 Tablet 3 03/13/2023 Active Famotidine 20 MG Oral Tablet (Pepcid) TAKE 1 TABLET BY MOUTH TWICE DAILY (MORNING AND AT BEDTIME) 180 Tablet 3 04/30/2023 Active Spironolactone 25 MG Oral Tablet (Aldactone)Indicatio ns:Coronary artery disease involving nome coronary artery of nome heart without angina pectoris,Heart failure, systolic, due to CAD ([facility]),Chronic ischemic heart disease,HTN, goal below 140/90 TAKE ONE TABLET BY MOUTH ONCE DAILY 90 Tablet 3 05/14/2023 Active Losartan Potassium 25 MG Oral Tablet (Cozaar)Indications: PAD (peripheral artery disease) ([facility]),Coronary artery disease involving nome coronary artery of nome heart without angina pectoris TAKE ONE TABLET [...] heart disease,Tobacco use disorder,Coronary artery disease involving nome coronary artery of nome heart without angina pectoris Inject 140 mg [...] suspected opioid overdose. Seek immediate medical attention. [email or web address] 1 Each 3 09/15/2023 Active Additional Information [...] PD, group D, by GOLD 2017 classification ([facility]) Inhale 1 Puff by mouth in the morning and 1 Puff before bedtime. 180 Each 12 10/29/2023 Active Albuterol Sulfate (2.5 MG/3ML) 0.083% Inhalation Nebulization Solution (Proventil)Indicatio ns:COPD, group D, by GOLD 2017 classification ([facility]) Inhale 1 Vial via nebulizer [...] Pain, Severe. 120 Tablet 0 11/14/2023 Active Exykh-9-bics Ethyl Esters 1 GM Oral Capsule (Lovaza)Indications: [...] fibrillation) 09/22/2021 Atherosclerotic heart diseas e of nome coronary artery with other forms of angina [...] untreated, BMI 43.71 kg/m, NECK: 21 inches, Carey 01/27, sent for bipap titration study 01/11/11 [...] 11/22/2020 10/12/2023 Coronary artery disease invo lving nome coronary artery of nome heart without angina pectoris 07/06/2020 10/12/2023 Chronic [...] 09/23/201305/17 Claudication 05/13/2013 10/12/2023 [employer] Other*[id number] 04/23/2012 09/12/2016 Overview: Study Title: Genomic Markers for Patients with Cardiovascular Disease Project # [id number] Physical Education Department Chair: Comfort Aviles MD [phone] Impotence of organic origin 02/16/2011 01/10/2018 Shortness [...] do you have serious difficulty hearing? Yes-very TRIBE 11/03/2023 Are you blind or do you [...] encounter Miscellaneous Notes * Telephone Encounter - Cherelle Corey RN - 12/05/2023 4:10 PM EDT Per CHW. Pt's daughter will take pt to the ED at [facility] via personal vehicle . FC call scheduled for tomorrow for ED follow up * Telephone Encounter - Donavan Roberts MD - 12/05/2023 4:03 PM EDT CHW reports BP 74/40. This plus patients other sx concerning for serious acute illness (eg sepsis) No RN/MIH available today Recommend ED visit today Donavan Roberts MD, [facility], [facility], [facility] ([facility]) [facility] Available on [employer] * Telephone Encounter - Cherelle Corey RN - 12/05/2023 12:57 PM EDT Communication Note Name: Dago Gunter Situation: 73 yr old pt lives in [place]. [facility] requesting home visit today Background: PMHX: thoracic aortic aneurysm, PVD, LBBB, biventricular ICD, coronary implant & graft, AAA, a-fib, HF, cardiomyopathy, HTN, COPD, BRIAN, RLL pulmonary nodule, chronic back pain, basal cell carcinoma, squamous cell carcinoma of ala nasi, BPH, neuropathic pain in both feet, tobacco dependence, anxiety, alcohol use Assessment: Pt reports not feeling well today. Reports increased fatigue and body aches. Pt states that he went to sleep at 3:30 yesterday afternoon and did not wake up until his woke him up this am. Slept through dinner and did not take his pm meds last night. Pt denies fever or chills. States that he has no energy. Denies lightheadedness or dizziness. Reports a decreased appetite. Drinking fluids ok. Reports about 48 oz of fluid yesterday and 24 oz today so far. Urinating well. Had 1 episode of diarrhea yesterday which he states he was incontinentof stool. Reports a 2nd episode this am which he did make it to bathroom. Denies nausea or vomiting. Pt denies SOB of chest tightness. Some wheezing on exertion which is his baseline. Denies sore throat, runny nose or sinus pain/pressure. Coughing up brown phlegm. Pt denies chest pain. Weight today 249.5. no BP or pulse ox available. Wt Readings from Last 5 Encounters: 11/21/23 114.8 kg (253 lb) 11/14/23 116.8 kg (257 lb 8 oz) 11/03/23 117.8 kg (259 lb 11.2 oz) 10/29/23 117.9 kg (260 lb) 10/24/23 119.7 kg (264 lb) Recommendation: Home visit today TT message sent to the care team with HV request- no RN available today. Home visit scheduled with Kaitlyn Ivy [facility] for a vital sign check. FC call scheduled for tomorrow for follow up * Telephone Encounter - Donavan Roberts MD - 12/05/2023 12:35 PM EDT If RN cannot see him today, then I'd recommend CHW visit for vital signs at least. 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 PMHX: thoracic aortic aneurysm, PVD, LBBB, biventricular ICD, coronary implant & graft, AAA, a-fib, HF, cardiomyopathy, HTN, COPD, BRIAN, RLL pulmonary nodule, chronic back pain, basal cell carcinoma, squamous cell carcinoma of ala nasi, BPH, neuropathic pain in both feet, tobacco dependence, anxiety, alcohol use Nursing Assessment: Patient's chief complaint for this call: Pt reports not feeling well today. Reports increased fatigue and body aches. Pt states that he wentto sleep at 3:30 yesterday afternoon and did not wake up until his woke him up this am. Slept through dinner and did not take his pm meds last night. Pt denies fever or chills. States that he has no energy. Denies lightheadedness or dizziness. Reports a decreased appetite. Drinking fluids ok. Reports about 48 oz of fluid yesterday and 24 oz today so far. Urinating well. Had 1 episode of diarrhea yesterday which he states he was incontinentof stool. Reports a 2nd episode this am which he did make it to bathroom. Denies nausea or vomiting. Pt denies SOB of chest tightness. Some wheezing on exertion which is his baseline. Denies sore throat, runny nose or sinus pain/pressure. Coughing up brown phlegm. Pt denies chest pain. Weight today 249.5. no BP or pulse ox available. Wt Readings from Last 5 Encounters: 11/21/23 114.8 kg (253 lb) 11/14/23 116.8 kg (257 lb 8 oz) 11/03/23 117.8 kg (259 lb 11.2 oz) 10/29/23 117.9 kg (260 lb) 10/24/23 119.7 kg (264 lb) Pain Denies pain Baseline Assessment Able to performing ADLs at baseline (walking, daily tasks, etc.): No Chief Complaint is related to a chronic condition: No Patient prescribed oxygen? No Patient has been ordered DME equipment (assistive devices, respiratory equipment, etc.): Yes Describe DME devices: nebulizer Patient is using DME device as directed: Yes Medication Reconciliation: (See medication list) Received flu shot this season: Unknown Taking medication as ordered: Yes Medications ordered/taking to treat reason for call: No Heart failure symptoms: No COPD exacerbation symptoms: No Reinforcement Education: Increase po fluid intake If temp develops can take tylenol per package instructions. Treatment/Plan: (need to report) Level of call: Non-Acute Recommended treatment plan: Clinical advice given over the phone Call back instructions provided to patient. documented in this encounter Plan of Treatment Upcoming Encounters Date Type Department Care Team ([facility] Contact Info) Description 12/06/2023 5:15 PM EDT Scheduled Telephone [facility], [place] [address] [place] [address] Coordinator, [facility] [address] [place] [address] 12/10/2023 9:15 AM EDT Hospital Encounter OR [facility], Operating Room [facility] [address] [place] [phone] Freeman Beaulieu DO [address] [place] [phone] 12/10/2023 9:15 AM EDT - 12/10/2023 9:40 AM EDT Surgery OR [facility], Operating Room [facility] [address] [place] [phone] Freeman Beaulieu DO [address] [place] [phone] INJECTION SACROILIAC JOINT 12/12/2023 10:00 AM EDT Rehab Services Physical Therapy [address] [phone] Valorie Valdivia, [address] [address] 12/12/2023 12:15 PM EDT [facility] [place] [address] [place] [address] Xochitl Marina, [facility] [address] [place] [address] 12/13/2023 9:50 AM EDT Office Visit [address] [phone] Buster Jessica MD [address] [place] [address] 12/14/2023 11:30 AM EDT Rehab Services Physical Therapy [address] [phone] Valorie Valdivia, [address] [address] 12/17/2023 11:30 AM EDT Rehab Services Physical [address] [phone] Valorie Valdivia, [address] [address] 12/19/2023 10:45 AM EDT Rehab Services Physical Therapy [address] [phone] Valorie Valdivia, [address] [address] 12/20/2023 1:30 PM EDT Telemedicine [facility], [facility] [address] [place] [address] Grisel Richter CRNP [address] [place] [address] Clary Eastman, [facility] Lathe Spotter [address] [place] [address] 12/24/2023 10:45 AM EDT Rehab Services Physical [address] [phone] Marleni Quarles, PT [address] [place] [address] 12/26/2023 10:00 AM EDT Rehab Services [address] [phone] Valorie Valdivia, SPECIAL PROCEDURES TECHNOLOGIST [address] [place] [address] 01/01/2024 10:00 AM EDT Home Visit [facility], [facility] [address] [place] [address] Lisa Tenorio RN [address] [place] [address] 01/02/2024 10:45 AM EDT Rehab Services Physical [address] [phone] Marleni Quarles, PT [address] [place] [address] 01/04/2024 10:45 AM EDT Rehab Services Physical [address] [phone] Valorie Valdivia, SPECIAL PROCEDURES TECHNOLOGIST [address] [facility] [address] [place] [address] 01/15/2024 10:40 AM EDT [facility] [address] [facility] [place] [phone] Clair Quarles DO [address] [place] [address] 04/22/2024 9:30 AM EDT Cardiac Studies Cardiology, [facility] [address] [place] [address] [facility] [address] [place] [address] 05/19/2024 9:30 AM EDT Appointment Radiology, [facility] [address] [place] [address] Scheduled Procedures Name Priority Associated [...] ASSESSMENT COMPLETED IN PAST YEAR FOR COPD 11/30/2024 12/01/2023 Cologuard 10/10/2025 10/10/2022, 08/2022, 10/04/2022, Additional history [...] this encounter Medical Devices Implanted Type Area Public Relations Coordinator Device Identifier Shelf Expiration Date Model / Serial / Lot 32mm X 109mm, Zenith Fenestrated Aaa Endovascular Proximal Body Graft, Two Proximal Internal Stent Implanted:Qty: 1 on 04/15/2018 by Evens Hoyt MD [place] [facility] N/A: Aorta [employer] 03/20/2021 ZFEN-P-2- 32-109-[id number] / / [id number] Stent Graft [id number] - [id number] - [id number] Implanted:Qty: 1 on 04/15/2018 by Evens Hoyt MD [place] [facility] Right: Renal Artery GETINGE : MAQUET 11/30/2020 95644 / [id number] / [id number] Stent Graft [id number] - [id number] - [id number] Implanted:Qty: 1 on 04/15/2018 by Evens Hoyt MD [place] [facility] Right: Renal Artery GETINGE : HELIOQUET 11/30/2020 10372 / [id number] / [id number] 28mm X 76mm Distal, 12mm Ipsilateral Leg, Zenith Fenestrated Aaa Endovascular Distal Bifurcated Body Graft Implanted:Qty: 1 on 04/15/2018 by Evens Hoyt MD [place] [facility] N/A: Aorta [employer] 03/20/2021 ZFEN-D-12 -28-76-C / / [id number] Graft Iliac Leg Spirlz [id number] - [id number] Implanted:Qty: 1 on 04/15/2018 by Evens Hoyt MD at [place] [facility] Left: Iliac [employer] 09/14/2020 [id number] / / [id number] Graft Iliac Leg Spirlz [id number] - [id number] Implanted:Qty: 1 on 04/15/2018 by Evens Hoyt MD [place] [facility] Right: Iliac [employer] 11/09/2020 [id number] / / [id number] Transfixation Pin 6mm 294.950 - [id number] Implanted:Qty: 1 on 11/14/2019 by Mayank Friedman MD at OR [facility] Right: Ankle SYNTHES 294.950 / / Description:transfixation pi n Screw Schanz [id number] - [id number] Implanted:Qty: 2 on 11/14/2019 by Mayank Friedman MD at OR [facility] Right: Leg Lower SYNTHES 294.786SH A / / Description:self drilling sh antz screws 5.0mm x 200mm [place] Trauma 2.7 Lock Screw 16mm Implanted:Qty: 2 on 11/27/2019 by Donavan Ramirez Jr., MD [place] [facility] [place]: Ankle ESTHELA : TRAUMA [id number] / / Description:hardware set [place] Trauma 2.7 Lock Screw 14mm Implanted:Qty: 1 on 11/27/2019 by Donavan Ramirez Jr., MD at [place] [facility] Right: Ankle ESTHELA : TRAUMA [id number] / / [place]hela Trauma 3.5 Screw 14mm Implanted:Qty: 1 on 11/27/2019 by Donavan Ramirez Jr., MD at [place] [facility] Right: Ankle ESTHELA : TRAUMA [id number] / / Description:hardware set [place] Trauma 3.5 Screw 18mm Implanted:Qty: 1 on 11/27/2019 by Donavan Ramirez Jr., MD at [place] [facility] Right: Ankle ESTHELA : TRAUMA [id number] / / Description:hardware set Esthela 3.5 Lockscrew 16mm Implanted:Qty: 1 on 11/27/2019 by Donavan Ramirez Jr., MD at [place] [facility] Right: Ankle [id number] / / Esthela 2.0 Plate Implanted:Qty: 1 on 11/27/2019 by Donavan Ramirez Jr., MD [place] [facility] [place]: Ankle [id number] / / Esthela 2.0 Lock Screw Implanted:Qty: 2 on 11/27/2019 by Donavan Ramirez Jr., MD [place] [facility] Right: Ankle [id number] / / [place] 2.0 Lock Screw Implanted:Qty: 1 on 11/27/2019 by Donavan Ramirez Jr., MD [place] [facility] Right: Ankle [id number] / / Esthela 2.0 Lock Screw Implanted:Qty: 1 on 11/27/2019 by Donavan Ramirez Jr., MD [place] [facility] Right: Ankle [id number] / / Plate Fib 5h - [id number] Implanted:Qty: 1 on 11/27/2019 by Donavan Ramirez Jr., MD [place] [facility] Right: Ankle ESTHELA : TRAUMA / / [...] the patient have Health Care Power of Size Maker? No Code Status History Code Status Date [...] the patient have Health Care Power of Size Maker? No Full Code 02/17/2019 12:06 PM 02/18/2019 1:09 PM This order reflects the patients wishes and were consensually agreed upon. Question Answer Comments Discussion of Advance Directives occurred with: Not Discussed Does the patient have a Living Will? No Does the patient have Health Care Power of Size Maker? No Care Teams Waxing Machine Operator Helper Relationship Specialty Start Date End Date Buster Jessica MD [address] [place], [place] [address] [address] PCP - General Family Medicine 09/11/22 documented as of this encounter
--- OUTSIDE RECORDS SUMMARY | 2023-12-11 18:41 | External Medical Summary | Summary of Care ---
Author Name Unknown Organization [facility] Address [address] [place] [address] Phone [phone] Care Team Providers Care Monotype Machinist Name Role Phone Buster Jessica MD Primary Care [facility] Reason for Visit * Reason Onset Date Comments [facility]: Acute 12/05/2023 Encounter Details Date Type Department Care Team (Late st Contact Info) Description 12/05/2023 Telephone [facility], [facility] [address] [place], [place] [phone] [facility], Nurse [facility] [address] [place] [address] [facility]: Acute Allergies [...] (peripheral artery disease) (HCC),Coronary artery disease involving [place] coronary artery of [place] heart without angina pectoris TAKE ONE TABLET BY MOUTH ONCE DAILY 90 Tablet 3 03/13/2023 Active Famotidine 20 MG Oral Tablet (Pepcid) TAKE 1 TABLET BY MOUTH TWICE DAILY (MORNING AND AT BEDTIME) 180 Tablet 3 04/30/2023 Active Spironolactone 25 MG Oral Tablet (Aldactone)Indicatio ns:Coronary artery disease involving [place] coronary artery of [place] heart without angina pectoris,Heart failure, systolic, due to CAD ([facility]),Chronic ischemic heart disease,HTN, goal below 140/90 TAKE ONE TABLET BY MOUTH ONCE DAILY 90 Tablet 3 05/14/2023 Active Losartan Potassium 25 MG Oral Tablet (Cozaar)Indications: PAD (peripheral artery disease) ([facility]),Coronary artery disease involving [place] coronary artery of [place] heart without angina pectoris TAKE ONE TABLET [...] heart disease,Tobacco use disorder,Coronary artery disease involving [place] coronary artery of [place] heart without angina pectoris Inject 140 mg [...] suspected opioid overdose. Seek immediate medical attention. [email or web address]?[email or web address] 1 Each 3 09/15/2023 Active Additional Information [...] PD, group D, by GOLD 2017 classification ([facility]) Inhale 1 Puff by mouth in the morning and 1 Puff before bedtime. 180 Each 12 10/29/2023 Active Albuterol Sulfate (2.5 MG/3ML) 0.083% Inhalation Nebulization Solution (Proventil)Indicatio ns:COPD, group D, by GOLD 2017 classification ([facility]) Inhale 1 Vial via nebulizer [...] Pain, Severe. 120 Tablet 0 11/14/2023 Active Kvlyk-4-kzms Ethyl Esters 1 GM Oral Capsule (Lovaza)Indications: [...] fibrillation) 09/22/2021 Atherosclerotic heart diseas e of [place] coronary artery with other forms of angina [...] untreated, BMI 43.71 kg/m, NECK: 21 inches, [place] 01/27, sent for bipap titration study 01/11/11 [...] 11/22/2020 10/12/2023 Coronary artery disease invo lving mil[place] coronary artery of [place] heart without angina pectoris 07/06/2020 10/12/2023 Chronic [...] 09/23/201305/17 Claudication 05/13/2013 10/12/2023 [employer] Other*[id number] 04/23/2012 09/12/2016 Overview: Study Title: Genomic Markers for Patients with Cardiovascular Disease Project # [id number] Medical Aide: Comfort Aviles MD [phone] Impotence of organic origin 02/16/2011 01/10/2018 Shortness [...] do you have serious difficulty hearing? Yes-very [place] 11/03/2023 Are you blind or do you [...] - 12/05/2023 4:10 PM EDT Per CHW. Pt will go to the ED via personal vehicle. FC call scheduled for tomorrow for ED follow up * Telephone Encounter - Donavan Roberts MD - 12/05/2023 4:03 PM EDT CHW reports BP 74/40. This plus patients other sx concerning for serious acute illness (eg sepsis) No RN/MIH available today Recommend ED visit today Donavan Roberts MD, [facility] [facility], [facility] Remote Medical Command [place] [facility] Available on 1010data * Telephone Encounter - Cherelle Corey RN - 12/05/2023 12:57 PM EDT Communication Note Name: Dago Gunter Situation: 73 yr old pt lives in [place] [facility] [place] visit today Background: PMHX: thoracic [...] 12/05/2023 11:09 AM EDT [facility] research investigator Acute Call Date: 12/05/2023 Time: 11:09 AM Name: Dago Gunter : 1950 Caller: patient Chief Complaint Patient presents with [facility]: Acute HPI: Dago Gunter is a 73 year old male that is calling [facility] to report increase in [...] Upcoming Encounters Date Type Department Care Team ([facility] Contact Info) Description 12/06/2023 5:15 PM EDT Scheduled Telephone [facility], [facility] [address] [place] [place] [address] Coordinator, [facility] [address] [place] [address] 12/10/2023 9:15 AM EDT Hospital Encounter OR [facility], Operating Room [facility] [address] [place] [phone] Freeman Beaulieu DO [address] [place] [address] 12/10/2023 9:15 AM EDT - 12/10/2023 9:40 AM EDT Surgery OR [facility], Operating Room [facility] [address] [place] [phone] Freeman Beaulieu, [address] [place] [address] INJECTION SACROILIAC JOINT 12/12/2023 10:00 AM EDT Rehab Services Physical [address] [place] [address] Valorie Valdivia, [address] [address] 12/12/2023 12:15 PM EDT Home Visit [facility], [facility] [address] [place] [address] Xochitl Marina, [facility] [address] [place] [address] 12/13/2023 9:50 AM EDT Office Visit [address] [phone] Buster Jessica MD [address] [place] [address] 12/14/2023 11:30 AM EDT Rehab Services Physical Therapy [address] [phone] Valorie Valdivia, [address] [address] 12/17/2023 11:30 AM EDT Rehab Services Physical [address] [address] Valorie Valdivia, [address] [address] 12/19/2023 10:45 AM EDT Rehab Services Physical Therapy [address] [phone] Valorie Valdivia, [address] [address] 12/20/2023 1:30 PM EDT Telemedicine [facility], [facility] [address] [place] [address] Grisel Richter CRNP [address] [place] [address] Clary Eastman, [facility] [address] [place] [address] 12/24/2023 10:45 AM EDT Rehab Services Physical Therapy [address] [phone] Marleni Quarles, PT [address] [place] [address] 12/26/2023 10:00 AM EDT Rehab Services Physical [address] [phone] Valorie Valdivia, THREE DIMENSIONAL MAP MODELER [address] [place] [address] 01/01/2024 10:00 AM EDT Home Visit [facility], [facility] [address] [place] [address] Lisa Tenorio RN [address] [place] [address] 01/02/2024 10:45 AM EDT Rehab Services Physical Therapy [address] [phone] Marleni Quarles, PT [address] [place] [address] 01/04/2024 10:45 AM EDT Rehab Services Physical [address] [phone] Valorie Valdivia, THREE DIMENSIONAL MAP MODELER 68 [facility] [address] [place] [address] 01/15/2024 10:40 AM EDT Office Visit Sleep Disorders [facility] [address] [facility] [place] [phone] Clair Quarles, [address] [place] [address] 04/22/2024 9:30 AM EDT Cardiac Studies Cardiology, [facility] [address] [facility] [place] [address] [facility] [address] [place] [address] 05/19/2024 9:30 AM EDT Appointment Radiology, [place] [address] [place] [address] Scheduled Procedures Name Priority Associated [...] this encounter Medical Devices Implanted Type Area Pulp Making Plant Operator Device Identifier Shelf Expiration Date Model / Serial / Lot 32mm X 109mm, Zenith Fenestrated Aaa Endovascular Proximal Body Graft, Two Proximal Internal Stent Implanted:Qty: 1 on 04/15/2018 by Evens Hoyt MD at OR [facility] [place] [place] N/A: Aorta [employer] 03/20/2021 ZFEN-P-2- 32-109-[id number] / / [id number] Stent Graft [id number] - [id number] - [id number] Implanted:Qty: 1 on 04/15/2018 by Evens Hoyt MD at OR [facility] [place] [place] Right: Renal Artery GETINGE : MAQUET 11/30/2020 [id number] / [id number] / [id number] Stent Graft [id number] - [id number] - [id number] Implanted:Qty: 1 on 04/15/2018 by Evens Hoyt MD at OR [facility] [place] [place] Right: Renal Artery GETINGE : HELIOQUET 11/30/2020 98859 / [id number] / [id number] 28mm X 76mm Distal, 12mm Ipsilateral Leg, Zenith Fenestrated Aaa Endovascular Distal Bifurcated Body Graft Implanted:Qty: 1 on 04/15/2018 by Evens Hoyt MD at OR [facility] [place] [place] N/A: Aorta [employer] 03/20/2021 ZFEN-D-12 -28-76-C / / [id number] Graft Iliac Leg Spirlz [id number] - [id number] Implanted:Qty: 1 on 04/15/2018 by Evens Hoyt MD at OR [facility] [place] [place] Left: Iliac [employer] 09/14/2020 [id number] / / [id number] Graft Iliac Leg Spirlz [id number] - [id number] Implanted:Qty: 1 on 04/15/2018 by Evens Hoyt MD at OR [facility] [place] [place] Right: Iliac [employer] 11/09/2020 [id number] / / [id number] Transfixation Pin 6mm 294.950 - [id number] Implanted:Qty: 1 on 11/14/2019 by Mayank Friedman MD at OR [facility] Right: Ankle SYNTHES 294.950 / / Description:transfixation pi n Screw Schanz [id number] - [id number] Implanted:Qty: 2 on 11/14/2019 by Mayank Friedman MD at OR [facility] Right: Leg Lower SYNTHES 294.786SH A / / Description:self drilling sh antz screws 5.0mm x 200mm Satsuma Trauma 2.7 Lock Screw 16mm Implanted:Qty: 2 on 11/27/2019 by Donavan Ramirez Jr., MD at OR [facility] [place] [place] Right: Ankle ESTHELA : TRAUMA [id number] / / Description:hardware set Esthela Trauma 2.7 Lock Screw 14mm Implanted:Qty: 1 on 11/27/2019 by Donavan Ramirez Jr., MD at OR [facility] [place] [place] Right: Ankle ESTHELA : TRAUMA [id number] / / Satsuma Trauma 3.5 Screw 14mm Implanted:Qty: 1 on 11/27/2019 by Donavan Ramirez Jr., MD at OR [facility] [place] [place] Right: Ankle ESTHELA : TRAUMA [id number] / / Description:hardware set Satsuma Trauma 3.5 Screw 18mm Implanted:Qty: 1 on 11/27/2019 by Donavan Ramirez Jr., MD at OR [facility] [place] [place] Right: Ankle ESTHELA : TRAUMA [id number] / / Description:hardware set Esthela 3.5 Lockscrew 16mm Implanted:Qty: 1 on 11/27/2019 by Donavan Ramirez Jr., MD at OR [facility] [place] [place] Right: Ankle [id number] / / Esthela 2.0 Plate Implanted:Qty: 1 on 11/27/2019 by Donavan Ramirez Jr., MD at OR [facility] [place] [place] Right: Ankle [id number] / / Esthela 2.0 Lock Screw Implanted:Qty: 2 on 11/27/2019 by Donavan Ramirez Jr., MD at [facility] Right: Ankle [id number] / / Esthela 2.0 Lock Screw Implanted:Qty: 1 on 11/27/2019 by Donavan Ramirez Jr., MD at OR [facility] [place] [place] Right: Ankle [id number] / / Esthela 2.0 Lock Screw Implanted:Qty: 1 on 11/27/2019 by Donavan Ramirez Jr., MD at OR [facility] [place] [place] Right: Ankle [id number] / / Plate Fib 5h - - [id number] Implanted:Qty: 1 on 11/27/2019 by Donavan Ramirez [...] patient have Health Care Power of Die Tester? No Code Status History Code Status Date [...] patient have Health Care Power of Die Tester? No Full Code 02/17/2019 12:06 PM 02/18/2019 1:09 PM This order reflects the patients wishes and were consensually agreed upon. Question Answer Comments Discussion of Advance Directives occurred with: Not Discussed Does the patient have a Living Will? No Does the patient have Health Care Power of Die Tester? No Care Teams Monotype Machinist Relationship Specialty Start Date End Date Buster Jessica MD [address] [place] [phone] PCP - General Family Medicine 09/11/22 documented as of this encounter
--- OUTSIDE RECORDS SUMMARY | 2023-12-11 18:41 | External Medical Summary ---
Author Name Unknown Address Unknown Organization [id number]:[facility]ORATORY [facility] - [address] [place] [id number] Laboratory Report Ordering Provider Test Date Status SWETA ENGLISH 12/05/2023 17:23:14 Final Observation Date Value Abnormality Reference (Units ) Status WBC, Total 12/05/2023 17:23:14 13.85 Above high normal 4 .00-10.80 (K/uL) Final RBC 12/05/2023 17:23:14 4.41 4.50-5.25 (M/uL) Final Hemoglobin 12/05/2023 17:23:14 12.7 Below low normal 14 .0-16.8 (g/dL) Final HCT 12/05/2023 17:23:14 38.4 Below low normal 40. 0-48.4 (%) Final MCV 12/05/2023 17:23:14 87.1 82.0-99.5 (fL) Final MCH 12/05/2023 17:23:14 28.8 27.0-34.0 (pg) Final MCHC 12/05/2023 17:23:14 33.1 32.0-36.0 (g/dL) Final RDW 12/05/2023 17:23:14 16.1 11.5-15.5 (%) Final Platelets 12/05/2023 17:23:14 348 140-400 (K /uL) Final MPV 12/05/2023 17:23:14 10.3 6.6-11.1 ( fL) Final Performing Location [facility] - [address] [place] [phone]
--- OUTSIDE RECORDS SUMMARY | 2023-12-11 18:41 | External Medical Summary ---
Author Name Unknown Address Unknown Organization K01:[facility] [place] [address] [place] [address] Laboratory Report Ordering Provider Test Date Status SEVEN HARMAN 12/05/2023 20:00:21 Final Observation Date Value Abnormality Reference (Units ) Status Osmolality, Urine 12/05/2023 20:00:21 259 50 -1200 (mOsm/kg) Final Performing Location [facility] [place] [address] [place] [address]
--- OUTSIDE RECORDS SUMMARY | 2023-12-11 18:41 | External Medical Summary ---
Author Name Unknown Address Unknown Organization K1G:LABORATORY [facility] - [address] [facility] [address] Laboratory Report Ordering Provider Test Date Status SWETA ENGLISH 12/05/2023 18:08:26 Final SCREENING Observation Date Value Abnormality Reference (Units ) Status SARS Coronavirus 2 12/05/2023 18:08:26 Negative N egative Final 2019 Novel Coronavirus not d etected.

This express test was developed and its performance characteristics determined by [employer]. It has not been cleared or approved [...] (RT-PCR) test, or a Centers for Disease Control-acceptable equivalent. The test is performed in a high complexity Clinical Laboratory Improvement Amendments-(CLIA) certified laboratory. The test is acceptable for SARS-CoV-2 diagnosis, surveillance, and travel within the [place] and to most countries. Please check with local testing authorities about requirements before travel.

The validation of bronchial specimens, tracheal aspirates, and sputum for this assay was developed and performance characteristics determined by [employer]. The validation of alternate specimen types has not been cleared or approved by the U.S. Food and Drug Administration (FDA). It has been determined that such clearance is not necessary. Performing Location LAB[facility]ATORY [facility] - [address] [facility] [facility] [address]
--- OUTSIDE RECORDS SUMMARY | 2023-12-11 18:41 | External Medical Summary | Summary of Care ---
Author Name Unknown Organization [facility] Address [address] [place] [address] Phone [phone] Care Team Providers Care Edge Worker Name Role Phone Buster Jessica MD Primary Care P [facility] Reason for Visit * Reason Onset Date Comments [facility]: Acute 12/05/2023 Encounter Details Date Type Department Care Team (Late st Contact Info) Description 12/05/2023 Telephone [facility], [facility] [address] [place], [place] [id number] [facility], Nurse [facility] [address] [place] [address] [facility]: Acute Allergies [...] (peripheral artery disease) (HCC),Coronary artery disease involving cahuilla coronary artery of cahuilla heart without angina pectoris TAKE ONE TABLET BY MOUTH ONCE DAILY 90 Tablet 3 03/13/2023 Active Famotidine 20 MG Oral Tablet (Pepcid) TAKE 1 TABLET BY MOUTH TWICE DAILY (MORNING AND AT BEDTIME) 180 Tablet 3 04/30/2023 Active Spironolactone 25 MG Oral Tablet (Aldactone)Indicatio ns:Coronary artery disease involving cahuilla coronary artery of cahuilla heart without angina pectoris,Heart failure, systolic, due to CAD ([facility]),Chronic ischemic heart disease,HTN, goal below 140/90 TAKE ONE TABLET BY MOUTH ONCE DAILY 90 Tablet 3 05/14/2023 Active Losartan Potassium 25 MG Oral Tablet (Cozaar)Indications: PAD (peripheral artery disease) ([facility]),Coronary artery disease involving cahuilla coronary artery of cahuilla heart without angina pectoris TAKE ONE TABLET [...] heart disease,Tobacco use disorder,Coronary artery disease involving cahuilla coronary artery of cahuilla heart without angina pectoris Inject 140 mg [...] suspected opioid overdose. Seek immediate medical attention. [email or web address] 1 Each 3 09/15/2023 Active Additional Information [...] group D, by GOLD 2017 classification ([facility]) Inhale 1 Puff by mouth in the morning and 1 Puff before bedtime. 180 Each 12 10/29/2023 Active Albuterol Sulfate (2.5 MG/3ML) 0.083% Inhalation Nebulization Solution (Proventil)Indicatio ns:COPD, group D, by GOLD 2017 classification ([facility]) Inhale 1 Vial via nebulizer [...] Pain, Severe. 120 Tablet 0 11/14/2023 Active Yksai-6-xpyt Ethyl Esters 1 GM Oral Capsule (Lovaza)Indications: [...] fibrillation) 09/22/2021 Atherosclerotic heart diseas e of cahuilla coronary artery with other forms of angina [...] untreated, BMI 43.71 kg/m, NECK: 21 inches, [place] 01/27, sent for bipap titration study 01/11/11 [...] 11/22/2020 10/12/2023 Coronary artery disease invo lving cahuilla coronary artery of cahuilla heart without angina pectoris 07/06/2020 10/12/2023 Chronic [...] 09/23/201305/17 Claudication 05/13/2013 10/12/2023 [employer] Other*[id number] 04/23/2012 09/12/2016 Overview: Study Title: Genomic Markers for Patients with Cardiovascular Disease Project # [id number] Hose Tubing Backer: Comfort Aviles MD [phone] Impotence of organic origin 02/16/2011 01/10/2018 Shortness [...] do you have serious difficulty hearing? Yes-very MATCH-E-BE-NASH-SHE-WISH BAND 11/03/2023 Are you blind or do you [...] Situation: 73 yr old pt lives in [place]. [facility] requesting home visit today Background: PMHX: thoracic [...] Corey RN - 12/05/2023 11:09 AM EDT [facility] special education case manager Acute Call Date: 12/05/2023 Time: 11:09 AM Name: Dago Gunter : 1950 Caller: patient Chief Complaint Patient presents with [facility]: Acute HPI: Dgao Gunter is a 73 year old male that is calling [facility] Intake to report increase in [...] Upcoming Encounters Date Type Department Care Team (Latest Contact Info) Description 12/05/2023 3:30 PM EDT Home Visit Care Coordination and Integration [address] [place] [address] Kaitlyn Ivy, Community Health File Clerk Data Entry [address] [place], [place] [address] 12/06/2023 5:15 PM EDT Scheduled Telephone [facility], [facility] [address] [place] [address] Coordinator, [facility] [address] [place] [address] 12/10/2023 9:15 AM EDT Hospital Encounter [facility], Operating Room [facility] [address] [place] [phone] Freeman Beaulieu, DO [address] [place] [phone] 12/10/2023 9:15 AM EDT - 12/10/2023 9:40 AM EDT Surgery OR [facility], Operating Room [facility] [address] [place] [phone] Freeman Beaulieu, DO [address] [place] [phone] INJECTION SACROILIAC JOINT 12/12/2023 10:00 AM EDT Rehab Services Physical Therapy [address] [phone] Valorie Valdivia, [address] [place] [address] 12/12/2023 12:15 PM EDT Home Visit [facility], [facility] [address] [place] [address] Xochitl Marina, [facility] [address] [place] [address] 12/13/2023 9:50 AM EDT Office Visit Family [address] [phone] Buster Jessica MD [address] [place] [address] 12/14/2023 11:30 AM EDT Rehab Services Physical [address] [phone] Valorie Valdivia, MANAGER HARDWARE [address] [place] [address] 12/17/2023 11:30 AM EDT Rehab Services [address] [phone] Valorie Valdivia, [address] [address] 12/19/2023 10:45 AM EDT Rehab Services [address] [phone] Valorie Valdivia, [address] [address] 12/20/2023 1:30 PM EDT Telemedicine [facility] [place] [place] [facility] [address] [place] [address] Grisel Richter CRNP [address] [place] [address] Clary Eastman, Community Health File Clerk Data Entry [address] [place] [address] 12/24/2023 10:45 AM EDT Rehab Services Physical [address] [phone] Marleni Quarles, PT [address] [place] [address] 12/26/2023 10:00 AM EDT Rehab Services Physical Therapy [address] [phone] Valorie Valdivia, MANAGER HARDWARE [address] [address] 01/01/2024 10:00 AM EDT Home Visit [facility], [facility] [address] [place] [address] Lisa Tenorio RN [address] [place] [address] 01/02/2024 10:45 AM EDT Rehab Services Physical Therapy [address] [phone] Marleni Quarles, PT [address] [place] [address] 01/04/2024 10:45 AM EDT Rehab Services Physical Therapy [address] [phone] Valorie Valdivia, MANAGER HARDWARE [address] [place] [address] 01/15/2024 10:40 AM EDT Office Visit Sleep Disorders Ctr [facility] [address] [facility] [place] [phone] Clair Quarles DO [address] [facility] [place] [address] 04/22/2024 9:30 AM EDT Cardiac Studies Cardiology, [facility] 132 [facility] [place] [address] [facility] [address] [place] [address] 05/19/2024 9:30 AM EDT Appointment Radiology, [place] [id number] [place] [address] Scheduled Procedures Name Priority Associated [...] FOR COPD 11/30/2024 12/01/2023 Cologuard 10/10/2025 10/10/2022, 03/0 08/2022, 10/04/2022, Additional [...] this encounter Medical Devices Implanted Type Area Rag Production Worker Device Identifier Shelf Expiration Date Model / Serial / Lot 32mm X 109mm, Zenith Fenestrated Aaa Endovascular Proximal Body Graft, Two Proximal Internal Stent Implanted:Qty: 1 on 04/15/2018 by Evens Hoyt MD at OR [facility] N/A: Aorta [facility] 03/20/2021 LISA-P-2- 32-109-R / / [id number] Stent Graft [id number] - [id number] - [id number] Implanted:Qty: 1 on 04/15/2018 by Evens Hoyt MD at OR [facility] Right: Renal Artery GETINGE : MAQUET 11/30/2020 15398 / [id number] / [id number] Stent Graft [id number] - [id number] - [id number] Implanted:Qty: 1 on 04/15/2018 by Evens Hoyt MD at OR [facility] Right: Renal Artery GETINGE : MAQUET 11/30/2020 85688 / [id number] / [id number] 28mm X 76mm Distal, 12mm Ipsilateral Leg, Zenith Fenestrated Aaa Endovascular Distal Bifurcated Body Graft Implanted:Qty: 1 on 04/15/2018 by Evens Hoyt MD at OR [facility] N/A: Aorta [employer] 03/20/2021 LISA-D-12 -28-76-C / / [id number] Graft Iliac Leg Spirlz 60t06sh - [id number] Implanted:Qty: 1 on 04/15/2018 by Evens Hoyt MD at OR [facility] Left: Iliac [employer] 09/14/2020 [id number] / / [id number] Graft Iliac Leg Spirlz 09k12qv - [id number] Implanted:Qty: 1 on 04/15/2018 by Evens Hoyt MD at OR [facility] Right: Iliac [employer] 11/09/2020 [id number] / / [id number] Transfixation Pin 6mm 294.950 - [id number] Implanted:Qty: 1 on 11/14/2019 by Mayank Friedman MD at OR [facility] Right: Ankle SYNTHES 294.950 / / Description:transfixation pi n Screw Schanz 5.9nxn995oe - [id number] Implanted:Qty: 2 on 11/14/2019 by Mayank Friedman MD at OR [facility] Right: Leg Lower SYNTHES 294.786SH A / / Description:self drilling sh antz screws 5.0mm x 200mm Esthela Trauma 2.7 Lock Screw 16mm Implanted:Qty: 2 on 11/27/2019 by Donavan Ramirez Jr., MD at OR [facility] Right: Ankle ESTHELA : TRAUMA [id number] / / Description:hardware set Esthela Trauma 2.7 Lock Screw 14mm Implanted:Qty: 1 on 11/27/2019 by Donavan Ramirez Jr., MD at OR [facility] Right: Ankle ESTHELA : TRAUMA [id number] / / Esthela Trauma 3.5 Screw 14mm Implanted:Qty: 1 on 11/27/2019 by Donavan Ramirez Jr., MD at OR [facility] Right: Ankle ESTHELA : TRAUMA [id number] / / Description:hardware set Esthela Trauma 3.5 Screw 18mm Implanted:Qty: 1 on 11/27/2019 by Donavan Ramirez Jr., MD at OR [facility] Right: Ankle ESTHELA : TRAUMA [id number] / / Description:hardware set [place] 3.5 Lockscrew 16mm Implanted:Qty: 1 on 11/27/2019 by Donavan Ramirez Jr., MD at OR [facility] Right: Ankle [id number] / / [place] 2.0 Plate Implanted:Qty: 1 on 11/27/2019 by Donavan Ramirez Jr., MD at [facility] Right: Ankle [id number] / / Esthela 2.0 Lock Screw Implanted:Qty: 2 on 11/27/2019 by Donavan Ramirez Jr., MD at [facility] Right: Ankle [id number] / / [place] 2.0 Lock Screw Implanted:Qty: 1 on 11/27/2019 by Donavan Ramirez Jr., MD at [facility] Right: Ankle 500272 / / Esthela 2.0 Lock Screw Implanted:Qty: 1 on 11/27/2019 by Donavan Ramirez Jr., MD at OR [facility] Right: Ankle [id number] / / Plate Fib 5h - [id number] Implanted:Qty: 1 on 11/27/2019 by Donavan Ramirez Jr., MD at OR [facility] Right: Ankle ESTHELA : TRAUMA / / [...] the patient have Health Care Power of Box Coverer Hand? No Code Status History Code Status Date [...] the patient have Health Care Power of Box Coverer Hand? No Full Code 02/17/2019 12:06 PM 02/18/2019 1:09 PM This order reflects the patients wishes and were consensually agreed upon. Question Answer Comments Discussion of Advance Directives occurred with: Not Discussed Does the patient have a Living Will? No Does the patient have Health Care Power of Box Coverer Hand? No Care Teams Edge Worker Relationship Specialty Start Date End Date Buster Jessica MD [address] [place] [id number] PCP - General Family Medicine 09/11/22 documented as of this encounter
--- OUTSIDE RECORDS SUMMARY | 2023-12-11 18:41 | External Medical Summary ---
Author Name Unknown Address Unknown Organization K1[facility] - [address] [place] [phone] Laboratory Report Ordering Provider Test Date Status SWETA ENGLISH 12/05/2023 17:23:14 Final Observation Date Value Abnormality Reference (Units ) Status SYNC LEUKOCYTES IN BLOOD BY AUTOMATED COUNT 12/05/2023 17:23:14 13.85 Above high normal 4.00-10.80 (K/uL) Final Segs 12/05/2023 17:23:14 81.7 Above high normal 40.0-75.0 (%) Final Lymphs % 12/05/2023 17:23:14 9.0 Below low normal 18.0-42.0 (%) Final Monos 12/05/2023 17:23:14 8.8 1.0-11.0 (%) Final Eosinophils 12/05/2023 17:23:14 0.4 0.0-6.0 (%) Final Basos 12/05/2023 17:23:14 0.1 0.0-2.0 (%) Final Absolute Segs 12/05/2023 17:23:14 11.32 Above high normal 1.80-7.70 (K/uL) Final Lymphs, absolute 12/05/2023 17:23:14 1.24 1.00-4.80 (K/ul) Final Monos, Abs 12/05/2023 17:23:14 1.22 Above high normal 0.00-1.10 (K/uL) Final Eos, Abs 12/05/2023 17:23:14 0.06 0.00-0.70 (K/uL) Final Basos, Abs 12/05/2023 17:23:14 0.01 0.00-0.20 (K/uL) Final Performing Location [facility] - [address] [facility] [phone]
--- OUTSIDE RECORDS SUMMARY | 2023-12-11 18:41 | External Medical Summary | Summary of Care ---
Author Name Unknown Organization [facility] Address [address] [place] [address] Phone [phone] Care Team Providers Care Mover Name Role Phone Buster Jessica MD Primary Care P [facility] Reason for Visit * Reason Onset Date Comments [facility]: Acute 12/05/2023 Encounter Details Date Type Department Care Team (Late st Contact Info) Description 12/05/2023 Telephone [facility], [facility] [address] [place], [place] [phone] [facility], Nurse [employer] [address] [place] [address] [facility]: Acute Allergies [...] (peripheral artery disease) (HCC),Coronary artery disease involving ute mountain coronary artery of ute mountain heart without angina pectoris TAKE ONE TABLET BY MOUTH ONCE DAILY 90 Tablet 3 03/13/2023 Active Famotidine 20 MG Oral Tablet (Pepcid) TAKE 1 TABLET BY MOUTH TWICE DAILY (MORNING AND AT BEDTIME) 180 Tablet 3 04/30/2023 Active Spironolactone 25 MG Oral Tablet (Aldactone)Indicatio ns:Coronary artery disease involving ute mountain coronary artery of ute mountain heart without angina pectoris,Heart failure, systolic, due to CAD ([facility]),Chronic ischemic heart disease,HTN, goal below 140/90 TAKE ONE TABLET BY MOUTH ONCE DAILY 90 Tablet 3 05/14/2023 Active Losartan Potassium 25 MG Oral Tablet (Cozaar)Indications: PAD (peripheral artery disease) ([facility]),Coronary artery disease involving ute mountain coronary artery of ute mountain heart without angina pectoris TAKE ONE TABLET [...] heart disease,Tobacco use disorder,Coronary artery disease involving ute mountain coronary artery of ute mountain heart without angina pectoris Inject 140 mg [...] suspected opioid overdose. Seek immediate medical attention. [email or web address] 1 Each 3 09/15/2023 Active Additional Information [...] PD, group D, by GOLD 2017 classification ([facility]) Inhale 1 Puff by mouth in the morning and 1 Puff before bedtime. 180 Each 12 10/29/2023 Active Albuterol Sulfate (2.5 MG/3ML) 0.083% Inhalation Nebulization Solution (Proventil)Indicatio ns:COPD, group D, by GOLD 2017 classification ([facility]) Inhale 1 Vial via nebulizer every [...] Pain, Severe. 120 Tablet 0 11/14/2023 Active Zcpoe-8-jhes Ethyl Esters 1 GM Oral Capsule (Lovaza)Indications: [...] fibrillation) 09/22/2021 Atherosclerotic heart diseas e of ute mountain coronary artery with other forms of angina [...] untreated, BMI 43.71 kg/m, NECK: 21 inches, [place] 01/27, sent for bipap titration study 01/11/11 [...] 11/22/2020 10/12/2023 Coronary artery disease invo lving ute mountain coronary artery of ute mountain heart without angina pectoris 07/06/2020 10/12/2023 Chronic [...] 09/23/201305/17 Claudication 05/13/2013 10/12/2023 [employer] Other*[id number] 04/23/2012 09/12/2016 Overview: Study Title: Genomic Markers for Patients with Cardiovascular Disease Project # [id number] Pole Frame Construction Worker: Comfort Aviles MD [phone] Impotence of organic origin 02/16/2011 01/10/2018 Shortness [...] do you have serious difficulty hearing? Yes-very [place] 11/03/2023 Are you blind or do you [...] encounter Miscellaneous Notes * Telephone Encounter - Donavan Roberts MD - 12/05/2023 4:03 PM EDT CHW reports BP 74/40. This plus patients other sx concerning for serious acute illness (eg sepsis) No RN/MIH available today Recommend ED visit today Donavan Roberts MD, [facility] [facility], [facility] Remote Medical Command [place] [facility] Available on [employer] * Telephone Encounter - Cherelle Corey RN - 12/05/2023 12:57 PM EDT Communication Note Name: Dago Gunter Situation: 73 yr old pt lives in [place]. [facility] [place] Background: PMHX: thoracic [...] 12/05/2023 11:09 AM EDT [facility] video control engineer Acute Call Date: 12/05/2023 Time: 11:09 AM Name: Dago Gunter : 1950 Caller: patient Chief Complaint Patient presents with [facility]: Acute HPI: Dago Gunter is a 73 year old male that is calling [facility] Intake to report increase in [...] Upcoming Encounters Date Type Department Care Team ([facility] Contact Info) Description 12/06/2023 5:15 PM EDT Scheduled Telephone [facility], [facility] [address] [place] [address] Coordinator, [facility] [address] [place] [address] 12/10/2023 9:15 AM EDT Hospital Encounter OR [facility], Operating Room [facility] [address] [place] [phone] Freeman Beaulieu, [address] [place] [address] 12/10/2023 9:15 AM EDT - 12/10/2023 9:40 AM EDT Surgery OR O[facility], Operating Room O[facility] [address] [place] [phone] Freeman Beaul[place], [address] [place] [phone] INJECTION SACROILIAC JOINT 12/12/2023 10:00 AM EDT Rehab Services Physical Therapy [address] [place] [phone] Valorie Valdivia, [address] [place] [address] 12/12/2023 12:15 PM EDT Home Visit [facility], [facility] [address] [place] [address] Xochitl Marina, BATTERY TEST ENGINEER [address] [place] [address] 12/13/2023 9:50 AM EDT Office Visit [address] [phone] Buster Jessica MD [address] [place] [address] 12/14/2023 11:30 AM EDT Rehab Services Physical Therapy [address] [phone] Valorie Valdivia, PROVIDER RELATIONS REPRESENTATIVE [address] [place] [address] 12/17/2023 11:30 AM EDT Rehab Services Physical Therapy [address] [phone] Valorie Valdivia, PROVIDER RELATIONS REPRESENTATIVE [address] [place] [address] 12/19/2023 10:45 AM EDT Rehab Services Physical [address] [phone] Valorie Valdivia, PROVIDER RELATIONS REPRESENTATIVE [address] [place] [address] 12/20/2023 1:30 PM EDT Telemedicine [facility], [facility] [address] [place] [address] Grisel Richter CRNP [address] [place] [address] Clary Eastman, Community Health Mechanical Developer [employer] [address] [place], [place] [address] 12/24/2023 10:45 AM EDT Re[facility] Services Physical Therapy [address] [phone] Marleni Quarles, PT [address] [place] [address] 12/26/2023 10:00 AM EDT Re[facility] Services Physical Therapy [address] [phone] Valorie Valdivia, PROVIDER RELATIONS REPRESENTATIVE [address] [place] [address] 01/01/2024 10:00 AM EDT Home Visit [facility] [address] [place] [address] Lisa Tenorio RN [address] [place] [address] 01/02/2024 10:45 AM EDT Rehab Services Physical Therapy [address] [phone] Marleni Quarles, PT [address] [place] [address] 01/04/2024 10:45 AM EDT Rehab Services Physical Therapy [address] [phone] Valorie Valdivia, PROVIDER RELATIONS REPRESENTATIVE [address] [place] [address] 01/15/2024 10:40 AM EDT Office Visit [facility] [address] [place] [phone] Clair Quarles, DO [address] [place] [address] 04/22/2024 9:30 AM EDT Cardiac Studies Cardiology, [facility] [address] [place] [address] [place], Pacer Clinic [facility] [address] [place] [address] 05/19/2024 9:30 AM EDT Appointment Radiology, [place] [id number] [place] [address] Scheduled Procedures Name Priority Associated [...] 10/08/2020 DISCUSS TOBACCO CESSATION (REFER TO SMARTSET #4332) 06/02/2023 06/02/2022, 07/21/2020 Depression, Most Recent Score [...] this encounter Medical Devices Implanted Type Area Hand Dry Cleaner Device Identifier Shelf Expiration Date Model / Serial / Lot 32mm X 109mm, Zenith Fenestrated Aaa Endovascular Proximal Body Graft, Two Proximal Internal Stent Implanted:Qty: 1 on 04/15/2018 by Evens Hoyt MD at OR [facility] N/A: Aorta [employer] 03/20/2021 ZFEN-P-2- 32-109-R / / [id number] Stent Graft [id number] - [id number] - [id number] Implanted:Qty: 1 on 04/15/2018 by Evens Hoyt MD at OR [facility] Right: Renal Artery GETINGE : MAQUET 11/30/2020 70587 / [id number] / [id number] Stent Graft [id number] [id number] - [id number] - [id number] Implanted:Qty: 1 on 04/15/2018 by Evens Hoyt MD at OR [facility] Right: Renal Artery GETINGE : MAQUET 11/30/2020 69069 / [id number] / [id number] 28mm X 76mm Distal, 12mm Ipsilateral Leg, Zenith Fenestrated Aaa Endovascular Distal Bifurcated Body Graft Implanted:Qty: 1 on 04/15/2018 by Evens Hoyt MD at OR [facility] N/A: Aorta [employer] 03/20/2021 ZFEN-D-12 -28-76-C / / [id number] Graft Iliac Leg Spirlz [id number] - [id number] Implanted:Qty: 1 on 04/15/2018 by Evens Hoyt MD at OR [facility] Left: Iliac [employer] 09/14/2020 [id number] / / [id number] Graft Iliac Leg Spirlz 82z69wd - [id number] Implanted:Qty: 1 on 04/15/2018 by Evens Hoyt MD at OR [facility] Right: Iliac [employer] 11/09/2020 [id number] / / [id number] Transfixation Pin 6mm 294.950 - [id number] Implanted:Qty: 1 on 11/14/2019 by Mayank Friedman MD at OR [facility] Right: Ankle SYNTHES 294.950 / / Description:transfixation pi n Screw Schanz 5.4nrn627iy - [id number] Implanted:Qty: 2 on 11/14/2019 by Mayank Friedman MD at OR [facility] Right: Leg Lower SYNTHES 294.786SH A / / Description:self drilling sh antz screws 5.0mm x 200mm [place] Trauma 2.7 Lock Screw 16mm Implanted:Qty: 2 on 11/27/2019 by Donavan Ramirez Jr., MD at OR [facility] Right: Ankle ESTHELA : TRAUMA [id number] / / Description:hardware set [place] Trauma 2.7 Lock Screw 14mm Implanted:Qty: 1 on 11/27/2019 by Donavan Ramirez Jr., MD at OR [facility] Right: Ankle ESTHELA : TRAUMA [id number] / / [place] Trauma 3.5 Screw 14mm Implanted:Qty: 1 on 11/27/2019 by Donavan Ramirez Jr., MD at OR [facility] Right: Ankle ESTHELA : TRAUMA [id number] / / Description:hardware set [place] Trauma 3.5 Screw 18mm Implanted:Qty: 1 on 11/27/2019 by Donavan Ramirez Jr., MD at OR [facility] Right: Ankle ESTHELA : TRAUMA 188856 / / Description:hardware set [place]hel[place] 3.5 Lockscrew 16mm Implanted:Qty: 1 on 11/27/2019 by Donavan Ramirez Jr., MD at [facility] Right: Ankle [id number] / / [place]hel[place] 2.0 Plate Implanted:Qty: 1 on 11/27/2019 by Donavan Ramirez Jr., MD at [facility] Right: Ankle [id number] / / [place] 2.0 Lock Screw Implanted:Qty: 2 on 11/27/2019 by Donavan Ramirez Jr., MD at [facility] Right: Ankle [id number] / / [place] 2.0 Lock Screw Implanted:Qty: 1 on 11/27/2019 by Donavan Ramirez Jr., MD at [facility] Right: Ankle [id number] / / [place]a 2.0 Lock Screw Implanted:Qty: 1 on 11/27/2019 by Donavan Ramirez Jr., MD at OR [facility] Right: Ankle 812895 / / Plate Fib 5h - [id number] Implanted:Qty: 1 on 11/27/2019 by Donavan Ramirez Jr., MD at OR [facility] Right: Ankle ESTHELA : TRAUMA / / [...] the patient have Health Care Power of Forestry Laborer? No Code Status History Code Status Date [...] the patient have Health Care Power of Forestry Laborer? No Full Code 02/17/2019 12:06 PM 02/18/2019 1:09 PM This order reflects the patients wishes and were consensually agreed upon. Question Answer Comments Discussion of Advance Directives occurred with: Not Discussed Does the patient have a Living Will? No Does the patient have Health Care Power of Forestry Laborer? No Care Teams Mover Relationship Specialty Start Date End Date Buster Jessica MD [address] [place] [address] PCP - General Family Medicine 09/11/22 documented as of this encounter
--- OUTSIDE RECORDS SUMMARY | 2023-12-11 18:41 | External Medical Summary ---
Author Name Unknown Address Unknown Organization K1G:LABORATORY [facility] - [address] [facility] [address] Laboratory Report Ordering Provider Test Date Status SWETA ENGLISH 12/05/2023 18:19:11 Final Observation Date Value Abnormality Reference (Units ) Status Body temperature 12/05/2023 18:19:11 37.0 (C) Final pH of Venous blood 12/05/2023 18:19:11 7.513 Above high normal 7.320-7.430 (units) Final Carbon dioxide [Partial pressure] in Venous blood 12/05/2023 18:19:11 36.8 Below low normal 40.0-60.0 (mmHg) Final Oxygen [Partial pressure] in Venous blood 12/05/2023 18:19:11 62.3 Above high normal 25.0-50.0 (mmHg) Final Base excess, Capillary 12/05/2023 18:19:11 6.3 Above high normal -2.0-2.0 (mmol/L) Final Hemoglobin [Mass/volume] in Blood by Oximetry 12/05/2023 18:19:11 11.9 Below low normal 14.0-16.8 (g/dL) Final Oxyhemoglobin, Venous (FO2HB) 12/05/2023 18:19:11 86.8 Above high normal 40.0-85.0 (% total Hgb) Final Carboxyhemoglobin 12/05/2023 18:19:11 4.2 Above high normal <=1.5 (% total Hgb) Final Smokers: 0-9.0 % Methemoglobin 12/05/2023 18:19:11 0.6 <=1.5 (% total Hgb) Final Deoxyhemoglobin/Hemoglobin.t otal in Venous blood 12/05/2023 18:19:11 8.4 (% total Hgb) Rubi l Oxygen content in Venous blood 12/05/2023 18:19:11 14.6 7.0-18.0 (%vol) Final Bicarbonate, Venous, POC (i-STAT) 12/05/2023 18:19:11 29.5 23.0-31.0 (mmol/L) nal Performing Location LAB[facility]ORY [facility] - [address] [facility] [address]
--- OUTSIDE RECORDS SUMMARY | 2023-12-11 18:41 | External Medical Summary ---
Author Name Unknown Address Unknown Organization K1G:LABORATORY [facility] - [address] [place] [id number] Laboratory Report Ordering Provider Test Date Status SWETA ENGLISH 12/05/2023 17:23:14 Final Observation Date Value Abnormality Reference (Units ) Status Lipase 12/05/2023 17:23:14 37 13-60 (U/L ) Final Performing Location LABORATORY [facility] - [address] [place] [address]
--- OUTSIDE RECORDS SUMMARY | 2023-12-11 18:42 | External Medical Summary | Summary of Care ---
Author Name Unknown Organization [facility] Address [address] [place] [address] Phone [phone] Care Team Providers Care Lay Brother Name Role Phone Buster Jessica MD Primary Care P [facility] Reason for Visit * Reason Onset Date Comments [facility]: Acute 12/05/2023 Encounter Details Date Type Department Care Team (Late st Contact Info) Description 12/05/2023 Telephone [facility], [facility] [address] [place], [place] [phone] [facility], Nurse [facility] [address] [place] [address] [facility]: Acute Allergies [...] (peripheral artery disease) (HCC),Coronary artery disease involving [place] coronary artery of [place] heart without angina pectoris TAKE ONE TABLET BY MOUTH ONCE DAILY 90 Tablet 3 03/13/2023 Active Famotidine 20 MG Oral Tablet (Pepcid) TAKE 1 TABLET BY MOUTH TWICE DAILY (MORNING AND AT BEDTIME) 180 Tablet 3 04/30/2023 Active Spironolactone 25 MG Oral Tablet (Aldactone)Indicatio ns:Coronary artery disease involving [place] coronary artery of [place] heart without angina pectoris,Heart failure, systolic, due to CAD ([facility]),Chronic ischemic heart disease,HTN, goal below 140/90 TAKE ONE TABLET BY MOUTH ONCE DAILY 90 Tablet 3 05/14/2023 Active Losartan Potassium 25 MG Oral Tablet (Cozaar)Indications: PAD (peripheral artery disease) ([facility]),Coronary artery disease involving [place] coronary artery of [place] heart without angina pectoris TAKE ONE TABLET [...] heart disease,Tobacco use disorder,Coronary artery disease involving [place] coronary artery of [place] heart without angina pectoris Inject 140 mg [...] suspected opioid overdose. Seek immediate medical attention. [email or web address] 1 Each 3 09/15/2023 Active Additional Information [...] D, by GOLD 2017 classification ([facility]) Inhale 1 Puff by mouth in the morning and 1 Puff before bedtime. 180 Each 12 10/29/2023 Active Albuterol Sulfate (2.5 MG/3ML) 0.083% Inhalation Nebulization Solution (Proventil)Indicatio ns:COPD, group D, by GOLD 2017 classification ([facility]) Inhale 1 Vial via nebulizer every 4 [...] Pain, Severe. 120 Tablet 0 11/14/2023 Active Lgift-9-nkbs Ethyl Esters 1 GM Oral Capsule (Lovaza)Indications: [...] fibrillation) 09/22/2021 Atherosclerotic heart diseas e of [place] coronary artery with other forms of angina [...] untreated, BMI 43.71 kg/m, NECK: 21 inches, [place] 01/27, sent for bipap titration study 01/11/11 [...] 11/22/2020 10/12/2023 Coronary artery disease invo lving [place] coronary artery of [place] heart without angina pectoris 07/06/2020 10/12/2023 Chronic [...] 09/23/201305/17 Claudication 05/13/2013 10/12/2023 [employer] Other*[id number] 04/23/2012 09/12/2016 Overview: Study Title: Genomic Markers for Patients with Cardiovascular Disease Project # [id number] Steward/Stewardess Wine: Comfort Aviles MD [phone] Impotence of organic origin 02/16/2011 01/10/2018 Shortness [...] Situation: 73 yr old pt lives in [place]. [facility] requesting home visit today Background: PMHX: thoracic [...] sent to the care team with HV request * Telephone Encounter - Donavan Roberts MD - 12/05/2023 12:35 PM EDT If RN cannot see him today, then I'd recommend CHW visit for vital signs at least. * Telephone Encounter - Cherelle Corey RN - 12/05/2023 11:09 AM EDT [facility] traveling engineer Acute Call Date: 12/05/2023 Time: 11:09 AM Name: Dago Gunter : 1950 Caller: patient Chief Complaint Patient presents with [employer] [facility] [employer] At Home: Acute HPI: Dago Gunter is a 73 year old male that is calling [facility] Intake to report increase in [...] [facility], Operating Room [facility] [address] [place] [phone] Freeman Beaulieu DO [address] [place] [address] 12/10/2023 9:15 AM EDT - 12/10/2023 9:40 AM EDT Surgery OR [facility], Operating Room [facility] [address] [place] [address] Freeman Beaulieu, [address] [place] [phone] INJECTION SACROILIAC JOINT 12/12/2023 10:00 AM EDT Rehab Services Physical Therapy [address] [phone] Valorie Valdivia, [address] [address] 12/12/2023 12:15 PM EDT [facility] [address] [place] [address] Xochitl Marina, [facility] [address] [place] [address] 12/13/2023 9:50 AM EDT Office Visit Family [address] [phone] Buster Jessica MD [address] [place] [address] 12/14/2023 11:30 AM EDT Rehab Services Physical Therapy [address] [phone] Valorie Valdivia, MANAGER NEW PRODUCT [address] [place] [address] 12/17/2023 11:30 AM EDT Rehab Services Physical Therapy [address] [address] Valorie Valdivia, MANAGER NEW PRODUCT [address] [place] [address] 12/19/2023 10:45 AM EDT Rehab Services Physical Therapy [address] [address] Valorie Valdivia, MANAGER NEW PRODUCT [address] [place] [address] 12/20/2023 1:30 PM EDT Telemedicine [facility], [facility] [address] [place] [address] Grisel Richter CRNP [address] [place] [address] Clary Eastman, Community [facility] Ironworker Foreman [address] [place] [address] 12/24/2023 10:45 AM EDT Rehab Services Physical Therapy [address] [address] Marleni Quarles, PT [address] [place] [address] 12/26/2023 10:00 AM EDT Rehab Services Physical Therapy [address] [address] Valorie Valdivia, MANAGER NEW PRODUCT [address] [place] [address] 01/01/2024 10:00 AM EDT Home Visit [facility], [facility] [address] [place] [address] Lisa Tenorio, RN [address] [place] [address] 01/02/2024 10:45 AM EDT Rehab Services Physical Therapy [facility] [address] [facility] [address] [place] [address] Marleni Quarles, PT [address] [place] [address] 01/04/2024 10:45 AM EDT Rehab Services Physical Therapy [facility] 68 [facility] [address] [place] [phone] Valorie Valdivia, MANAGER NEW PRODUCT 68 [facility] [address] [place] [address] 01/15/2024 10:40 AM EDT Office Visit [facility] [place] [phone] Clair Quarles DO 132 [facility] [place] [address] 04/22/2024 9:30 AM EDT Cardiac Studies Cardiology, [facility] 132 [facility] [place] [address] [facility] [address] 05/19/2024 9:30 AM EDT Appointment Radiology, [facility] [address] [place] [address] Scheduled Procedures Name Priority Associated [...] 10/08/2020 DISCUSS TOBACCO CESSATION (REFER TO SMARTSET #4276) 06/02/2023 06/02/2022, 07/21/2020 Depression, Most Recent Score [...] this encounter Medical Devices Implanted Type Area Director Of Radiology Device Identifier Shelf Expiration Date Model / Serial / Lot 32mm X 109mm, Zenith Fenestrated Aaa Endovascular Proximal Body Graft, Two Proximal Internal Stent Implanted:Qty: 1 on 04/15/2018 by Evens Hoyt MD at OR [facility] N/A: Aorta [employer] 03/20/2021 ZFKEDAR-P-2- 32-109-R / / [id number] Stent Graft [id number] - [id number] - [id number] Implanted:Qty: 1 on 04/15/2018 by Evens Hoyt MD at OR [facility] Right: Renal Artery GETINGE : MAQUET 11/30/2020 62757 / [id number] / [id number] Stent Graft [id number] - [id number] - [id number] Implanted:Qty: 1 on 04/15/2018 by Evens Hoyt MD at OR [facility] Right: Renal Artery GETINGE : MAQUET 11/30/2020 87176 / [id number] / [id number] 28mm X 76mm Distal, 12mm Ipsilateral Leg, Zenith Fenestrated Aaa Endovascular Distal Bifurcated Body Graft Implanted:Qty: 1 on 04/15/2018 by Evens Hoyt MD at OR [facility] N/A: Aorta [employer] 03/20/2021 ZFKEDAR-D-12 -28-76-C / / [id number] Graft Iliac Leg Spirlz 55n70im - [id number] Implanted:Qty: 1 on 04/15/2018 by Evens Hoyt MD at OR [facility] Left: Iliac [employer] 09/14/2020 [id number] / / [id number] Graft Iliac Leg Spirlz 11t38gi - [id number] Implanted:Qty: 1 on 04/15/2018 by Evens Hoyt MD at OR [facility] Right: Iliac [employer] 11/09/2020 [id number] / / [id number] Transfixation Pin 6mm 294.950 - [id number] Implanted:Qty: 1 on 11/14/2019 by Mayank Friedman MD at OR [facility] Right: Ankle SYNTHES 294.950 / / Description:transfixation pi n Screw Schanz 5.5trh327cp - [id number] Implanted:Qty: 2 on 11/14/2019 by Mayank Friedman MD at OR [facility] Right: Leg Lower SYNTHES 294.786SH A / / Description:self drilling sh antz screws 5.0mm x 200mm Esthela Trauma 2.7 Lock Screw 16mm Implanted:Qty: 2 on 11/27/2019 by Donavan Ramirez Jr., MD at OR [facility] Right: Ankle ESTHELA : TRAUMA [id number] / / Description:hardware set Esthela Trauma 2.7 Lock Screw 14mm Implanted:Qty: 1 on 11/27/2019 by Donavan Ramirez Jr., MD at OR [facility] Right: Ankle ESTHELA : TRAUMA [id number] / / Esthela Trauma 3.5 Screw 14mm Implanted:Qty: 1 on 11/27/2019 by Donavan Ramirez Jr., MD at OR [facility] Right: Ankle ESTHELA : TRAUMA [id number] / / Description:hardware set Esthela Trauma 3.5 Screw 18mm Implanted:Qty: 1 on 11/27/2019 by Donavan Ramirez Jr., MD at OR [facility] Right: Ankle ESTHELA : TRAUMA [id number] / / Description:hardware set Esthela 3.5 Lockscrew 16mm Implanted:Qty: 1 on 11/27/2019 by Donavan Ramirez Jr., MD at OR [facility] Right: Ankle [id number] / / Esthela 2.0 Plate Implanted:Qty: 1 on 11/27/2019 by Donavan Raimrez Jr., MD at OR [facility] Right: Ankle [id number] / / Esthela 2.0 Lock Screw Implanted:Qty: 2 on 11/27/2019 by Donavan Ramirez Jr., MD at OR [facility] Right: Ankle [id number] / / Esthela 2.0 Lock Screw Implanted:Qty: 1 on 11/27/2019 by Donavan Ramirez Jr., MD at OR [facility] Right: Ankle [id number] / / Esthela 2.0 Lock Screw Implanted:Qty: 1 on 11/27/2019 by Donavan Ramirez Jr., MD at OR [facility] Right: Ankle 601484 / / Plate Fib - [id number] Implanted:Qty: 1 on 11/27/2019 by Donavan Ramirez Jr., MD at [facility] Right: Ankle ESTHELA : TRAUMA / / [...] the patient have Health Care Power of Radio Assembler? No Code Status History Code Status Date [...] the patient have Health Care Power of Radio Assembler? No Full Code 02/17/2019 12:06 PM 02/18/2019 1:09 PM This order reflects the patients wishes and were consensually agreed upon. Question Answer Comments Discussion of Advance Directives occurred with: Not Discussed Does the patient have a Living Will? No Does the patient have Health Care Power of Radio Assembler? No Care Teams Lay Brother Relationship Specialty Start Date End Date Buster Jessica MD [address] [place] [address] PCP - General Family Medicine 09/11/22 documented as of this encounter
--- OUTSIDE RECORDS SUMMARY | 2023-12-11 18:42 | External Medical Summary | Summary of Care ---
Author Name Unknown Organization [facility] Address [address] [place] [address] Phone [phone] Care Team Providers Care Oceanographer Physical Name Role Phone Buster Jessica MD Primary Care P [facility] Reason for Visit * Reason Onset Date Comments [facility]: Acute 12/05/2023 Encounter Details Date Type Department Care Team (Late st Contact Info) Description 12/05/2023 Telephone [facility], [facility] [address] [place], [place] [phone] [facility], Nurse [facility] [address] [place] [address] [facility]: Acute Allergies [...] (peripheral artery disease) (HCC),Coronary artery disease involving [place] coronary artery of [place] heart without angina pectoris TAKE ONE TABLET BY MOUTH ONCE DAILY 90 Tablet 3 03/13/2023 Active Famotidine 20 MG Oral Tablet (Pepcid) TAKE 1 TABLET BY MOUTH TWICE DAILY (MORNING AND AT BEDTIME) 180 Tablet 3 04/30/2023 Active Spironolactone 25 MG Oral Tablet (Aldactone)Indicatio ns:Coronary artery disease involving [place] coronary artery of [place] heart without angina pectoris,Heart failure, systolic, due to CAD ([facility]),Chronic ischemic heart disease,HTN, goal below 140/90 TAKE ONE TABLET BY MOUTH ONCE DAILY 90 Tablet 3 05/14/2023 Active Losartan Potassium 25 MG Oral Tablet (Cozaar)Indications: PAD (peripheral artery disease) ([facility]),Coronary artery disease involving [place] coronary artery of [place] heart without angina pectoris TAKE ONE TABLET [...] heart disease,Tobacco use disorder,Coronary artery disease involving [place] coronary artery of [place] heart without angina pectoris Inject 140 mg [...] suspected opioid overdose. Seek immediate medical attention. [email or web address] 1 Each 3 09/15/2023 Active Additional Information [...] D, by GOLD 2017 classification ([facility]) Inhale 1 Puff by mouth in the morning and 1 Puff before bedtime. 180 Each 12 10/29/2023 Active Albuterol Sulfate (2.5 MG/3ML) 0.083% Inhalation Nebulization Solution (Proventil)Indicatio ns:COPD, group D, by GOLD 2017 classification ([facility]) Inhale 1 Vial via nebulizer [...] Pain, Severe. 120 Tablet 0 11/14/2023 Active Txgwg-5-zlss Ethyl Esters 1 GM Oral Capsule (Lovaza)Indications: [...] fibrillation) 09/22/2021 Atherosclerotic heart diseas e of [place] coronary artery with other forms of angina [...] untreated, BMI 43.71 kg/m, NECK: 21 inches, [place] 01/27, sent for bipap titration study 01/11/11 [...] 11/22/2020 10/12/2023 Coronary artery disease invo lving [place] coronary artery of [place] heart without angina pectoris 07/06/2020 10/12/2023 Chronic [...] 09/23/201305/17 Claudication 05/13/2013 10/12/2023 Gen[employer] Other*[id number] 04/23/2012 09/12/2016 Overview: Study Title: Genomic Markers for Patients with Cardiovascular Disease Project # [id number] Sanitation Engineer: Comfort Aviles MD [phone] Impotence of organic origin 02/16/2011 01/10/2018 Shortness [...] do you have serious difficulty hearing? 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 At Home: Acute HPI: Dago Gunter is a 73 year old male that is calling Radiate Mediaer at Home Intake to report increase in [...] EDT Hospital Encounter OR [facility], Operating Room [facility] [place] [address] Freeman Beaulieu, DO [address] [place] [phone] 12/10/2023 9:15 AM EDT - 12/10/2023 9:40 AM EDT Surgery OR [facility], Operating Room [facility] [address] [place] [phone] Freeman Beaulieu, DO [address] [place] [address] INJECTION SACROILIAC JOINT 12/12/2023 10:00 AM EDT Rehab Services Physical Therapy [address] [phone] Valorie Valdivia, INDOOR SPORTS CENTRE MANAGER [address] [place] [address] 12/12/2023 12:15 PM EDT [facility], [place] [facility] [address] [place] [address] Xochitl Marina, [facility] [address] [place] [address] 12/13/2023 9:50 AM EDT Office Visit Family Practice [address] [place] [address] Buster Jessica MD [address] [place] [address] 12/14/2023 11:30 AM EDT Rehab Services Physical Therapy [address] [phone] Valorie Valdivia, INDOOR SPORTS CENTRE MANAGER [address] [place] [address] 12/17/2023 11:30 AM EDT Rehab Services Physical Therapy [address] [address] Valorie Valdivia, INDOOR SPORTS CENTRE MANAGER [address] [place] [address] 12/19/2023 10:45 AM EDT Rehab Services Physical Therapy [address] [address] Valorie Valdivia, INDOOR SPORTS CENTRE MANAGER [address] [place] [address] 12/20/2023 1:30 PM EDT Telemedicine [facility], [facility] [address] [place] [address] Grisel Richter CRNP [address] [place] [address] Clary Eastman, Community Health Certified Alcohol Drug Counselor [address] [place] [address] 12/24/2023 10:45 AM EDT Rehab Services Physical Therapy [address] [address] Marleni Quarles, PT [address] [place] [address] 12/26/2023 10:00 AM EDT Rehab Services Physical Therapy [address] [phone] Valorie Valdivia, [address] [address] 01/01/2024 10:00 AM EDT [facility] Visit [facility], [facility] [address] [place] [address] Lisa Tenorio, RN [address] [place] [address] 01/02/2024 10:45 AM EDT Rehab Services Physical Therapy [facility] 68 [facility] [address] [place] [address] Marleni Quarles, PT [address] [place] [address] 01/04/2024 10:45 AM EDT Rehab Services Physical Therapy [facility] 68 [facility] [address] [place] [address] Valorie Valdivia, INDOOR SPORTS CENTRE MANAGER 68 [facility] Dimitri [address] [place] [address] 01/15/2024 10:40 AM EDT Office Visit [facility] [place] [phone] Clair Quarles DO 132 [facility] [address] 04/22/2024 9:30 AM EDT Cardiac Studies Cardiology, [facility] 132 [place] [address] Val[facility] [address] [facility] [place] [address] 05/19/2024 9:30 AM EDT Appointment Radiology, [place] [phone] [place] [address] Scheduled Procedures Name Priority Associated [...] 10/08/2020 DISCUSS TOBACCO CESSATION (REFER TO SMARTSET #1307) 06/02/2023 06/02/2022, 07/21/2020 Depression, Most Recent Score >= 10 (will fire each visit until score < 10) 08/30/2023 08/29/2023 Influenza Vaccine (FLU shot) (Season Ended) 2024 05/11/2022, 06/09/2021, 04/13/2020, Additional history exists GFR 11/02/2024 11/03/2023, 10/05, 10/30/2023, Additional history exists O2 ASSESSMENT COMPLETED IN PAST YEAR FOR COPD 11/30/2024 12/01/2023 Cologuard 10/10/2025 10/10/2022, 0308/2022, 10/04/2022, Additional history [...] this encounter Medical Devices Implanted Type Area Machine Cloth Trimmer Device Identifier Shelf Expiration Date Model / Serial / Lot 32mm X 109mm, Zenith Fenestrated Aaa Endovascular Proximal Body Graft, Two Proximal Internal Stent Implanted:Qty: 1 on 04/15/2018 by Evens Hoyt MD at OR [facility] N/A: Aorta [employer] 03/20/2021 ZFEN-P-2- 32-109-R / / [id number] Stent Graft [id number] - [id number] - [id number] Implanted:Qty: 1 on 04/15/2018 by Evens Hoyt MD at OR [facility] Right: Renal Artery GETINGE : MAQUET 11/30/2020 06657 / [id number] / [id number] Stent Graft [id number] - [id number] - [id number] Implanted:Qty: 1 on 04/15/2018 by Evens Hoyt MD at OR [facility] Right: Renal Artery GETINGE : MAQUET 11/30/2020 08807 / [id number] / [id number] 28mm X 76mm Distal, 12mm Ipsilateral Leg, Zenith Fenestrated Aaa Endovascular Distal Bifurcated Body Graft Implanted:Qty: 1 on 04/15/2018 by Evens Hoyt MD at OR [facility] N/A: Aorta [employer] 03/20/2021 ZFEN-D-12 -28-76-C / / [id number] Graft Iliac Leg Spirlz [id number] - [id number] Implanted:Qty: 1 on 04/15/2018 by Evens Hoyt MD at OR [facility] Left: Iliac [employer] 09/14/2020 [id number] / / [id number] Graft Iliac Leg Spirlz 81j81mb - [id number] Implanted:Qty: 1 on 04/15/2018 by Evens Hoyt MD at OR [facility] Right: Iliac [employer] 11/09/2020 [id number] / / [id number] Transfixation Pin 6mm 294.950 - [id number] Implanted:Qty: 1 on 11/14/2019 by Mayank Friedman MD at OR [facility] Right: Ankle SYNTHES 294.950 / / Description:transfixation pi n Screw Schanz 5.0wkl285ql - [id number] Implanted:Qty: 2 on 11/14/2019 by Mayank Friedman MD at OR [facility] Right: Leg Lower SYNTHES 294.786SH A / / Description:self drilling sh antz screws 5.0mm x 200mm [place] Trauma 2.7 Lock Screw 16mm Implanted:Qty: 2 on 11/27/2019 by Donavan Ramirez Jr., MD at OR [facility] Right: Ankle ESTHELA : TRAUMA [id number] / / Description:hardware set [place] Trauma 2.7 Lock Screw 14mm Implanted:Qty: 1 on 11/27/2019 by Donavan Ramirez Jr., MD at OR [facility] Right: Ankle ESTHELA : TRAUMA [id number] / / [place] Trauma 3.5 Screw 14mm Implanted:Qty: 1 on 11/27/2019 by Donavan Ramirez Jr., MD at OR [facility] Right: Ankle ESTHELA : TRAUMA [id number] / / Description:hardware set Esthela Trauma 3.5 Screw 18mm Implanted:Qty: 1 on 11/27/2019 by Donavan Ramirez Jr., MD at OR [facility] Right: Ankle ESTHELA : TRAUMA [id number] / / Description:hardware set [place] 3.5 Lockscrew 16mm Implanted:Qty: 1 on 11/27/2019 by Donavan Ramirez Jr., MD at OR [facility] Right: Ankle [id number] / / [place] 2.0 Plate Implanted:Qty: 1 on 11/27/2019 by Donavan Ramirez Jr., MD at OR [facility] Right: Ankle [id number] / / [place] 2.0 Lock Screw Implanted:Qty: 2 on 11/27/2019 by Donavan Ramirez Jr., MD at OR [facility] Right: Ankle [id number] / / Esthela 2.0 Lock Screw Implanted:Qty: 1 on 11/27/2019 by Donavan Ramirez Jr., MD at OR [facility] Right: Ankle 164101 / / [place] 2.0 Lock Screw Implanted:Qty: 1 on 11/27/2019 by Donavan Ramirez Jr., MD at OR [facility] Right: Ankle 640367 / / Plate Fib - [id number] Implanted:Qty: 1 on 11/27/2019 by Donavan Ramirez Jr., MD at OR [facility] Right: Ankle ESTHELA : TRAUMA / / [...] the patient have Health Care Power of Aircraft Pneudraulic Systems Mechanic? No Code Status History Code Status Date [...] the patient have Health Care Power of Aircraft Pneudraulic Systems Mechanic? No Full Code 02/17/2019 12:06 PM 02/18/2019 1:09 PM This order reflects the patients wishes and were consensually agreed upon. Question Answer Comments Discussion of Advance Directives occurred with: Not Discussed Does the patient have a Living Will? No Does the patient have Health Care Power of Aircraft Pneudraulic Systems Mechanic? No Care Teams Oceanographer Physical Relationship Specialty Start Date End Date Buster Jessica MD [address] [place] [address] PCP - General Family Medicine 09/11/22 documented as of this encounter
--- OUTSIDE RECORDS SUMMARY | 2023-12-11 18:42 | External Medical Summary | Summary of Care ---
Author Name Unknown Organization [facility] Address [address] [place] [address] Phone [phone] Care Team Providers Care Senior Applications Architect Name Role Phone Buster Jessica MD Primary Care P [facility] Reason for Visit * Reason Onset Date Comments [facility]: Acute 12/05/2023 Encounter Details Date Type Department Care Team (Late st Contact Info) Description 12/05/2023 Telephone [facility], [facility] [address] [place], [place] [id number] [facility], Nurse [facility] [address] [place] [address] [facility]: Acute Allergies [...] (peripheral artery disease) (HCC),Coronary artery disease involving [place] coronary artery of [place] heart without angina pectoris TAKE ONE TABLET BY MOUTH ONCE DAILY 90 Tablet 3 03/13/2023 Active Famotidine 20 MG Oral Tablet (Pepcid) TAKE 1 TABLET BY MOUTH TWICE DAILY (MORNING AND AT BEDTIME) 180 Tablet 3 04/30/2023 Active Spironolactone 25 MG Oral Tablet (Aldactone)Indicatio ns:Coronary artery disease involving [place] coronary artery of [place] heart without angina pectoris,Heart failure, systolic, due to CAD ([facility]),Chronic ischemic heart disease,HTN, goal below 140/90 TAKE ONE TABLET BY MOUTH ONCE DAILY 90 Tablet 3 05/14/2023 Active Losartan Potassium 25 MG Oral Tablet (Cozaar)Indications: PAD (peripheral artery disease) ([facility]),Coronary artery disease involving [place] coronary artery of [place] heart without angina pectoris TAKE ONE TABLET [...] heart disease,Tobacco use disorder,Coronary artery disease involving [place] coronary artery of [place] heart without angina pectoris Inject 140 mg [...] suspected opioid overdose. Seek immediate medical attention. [email or web address] 1 Each 3 09/15/2023 Active Additional Information [...] D, by GOLD 2017 classification ([facility]) Inhale 1 Puff by mouth in the morning and 1 Puff before bedtime. 180 Each 12 10/29/2023 Active Albuterol Sulfate (2.5 MG/3ML) 0.083% Inhalation Nebulization Solution (Proventil)Indicatio ns:COPD, group D, by GOLD 2017 classification ([facility]) Inhale 1 Vial via nebulizer [...] Pain, Severe. 120 Tablet 0 11/14/2023 Active Tdxkg-0-nkqc Ethyl Esters 1 GM Oral Capsule (Lovaza)Indications: [...] fibrillation) 09/22/2021 Atherosclerotic heart diseas e of [place] coronary artery with other forms of angina [...] untreated, BMI 43.71 kg/m, NECK: 21 inches, [place] 01/27, sent for bipap titration study 01/11/11 [...] 11/22/2020 10/12/2023 Coronary artery disease invo lving [place] coronary artery of [place] heart without angina pectoris 07/06/2020 10/12/2023 Chronic [...] 09/23/201305/17 Claudication 05/13/2013 10/12/2023 [employer] Other*[id number] 04/23/2012 09/12/2016 Overview: Study Title: Genomic Markers for Patients with Cardiovascular Disease Project # [id number] Thread Drawer: Comfort Aviles MD [phone] Impotence of organic origin 02/16/2011 01/10/2018 Shortness [...] do you have serious difficulty hearing? 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 Acute Call Date: 12/05/2023 Time: 11:09 AM Name: Dago Gunter : 1950 Caller: patient Chief Complaint Patient presents with [facility]: Acute HPI: Dago Gunter is a 73 year old male that is calling [facility] [employer] Intake to report increase in [...] 12/10/2023 9:15 AM EDT Hospital Encounter [facility], Operating Room [facility] [address] [phone] Freeman Beaulieu DO [address] [address] 12/10/2023 9:15 AM EDT - 12/10/2023 9:40 AM EDT Surgery OR [facility], Operating Room [facility] [address] [place] [phone] Christofer Freeman Gonzalez, [address] [place] [phone] INJECTION SACROILIAC JOINT 12/12/2023 10:00 AM EDT Rehab Services Physical Therapy [address] [phone] Valorie Valdivia, ANIMAL HUSBANDMAN [address] [place] [address] 12/12/2023 12:15 PM EDT Home Visit [facility], [place] [address] [place] [address] Xochitl Marina, [facility] [address] [place] [address] 12/13/2023 9:50 AM EDT Office Visit Family Practice [address] [phone] Buster Jessica MD [address] [place] [address] 12/14/2023 11:30 AM EDT Rehab Services Physical Therapy [address] [phone] Valorie Valdivia, ANIMAL HUSBANDMAN [address] [place] [address] 12/17/2023 11:30 AM EDT Rehab Services Physical Therapy [address] [phone] Valorie Valdivia, ANIMAL HUSBANDMAN [address] [place] [address] 12/19/2023 10:45 AM EDT Rehab Services Physical [address] [phone] Valorie Valdivia, [address] [address] 12/20/2023 1:30 PM EDT Telemedicine [facility], [facility] [address] [place] [address] Grisel Richter CRNP [address] [place] [address] Clary Eastman, Community Health Computer Network Specialist [facility] [place] [address] 12/24/2023 10:45 AM EDT Rehab Services [address] [phone] Marleni Quarles, PT [address] [place] [address] 12/26/2023 10:00 AM EDT Rehab Services [address] [phone] Valorie Valdivia, [address] [address] 01/01/2024 10:00 AM EDT Home Visit [facility], [facility] [address] [place] [address] Lisa Tenorio RN [address] [place] [address] 01/02/2024 10:45 AM EDT Rehab Services Physical [address] [phone] Marleni Quarles, PT [address] [facility] [address] [place] [address] 01/04/2024 10:45 AM EDT Rehab Services Physical Therapy [facility], Niharika Mijares [address] [facility] [address] [place] [phone] Valorie Valdivia, ANIMAL HUSBANDMAN [address] [facility] [address] [address] 01/15/2024 10:40 AM EDT Office Visit Sleep Disorders Ctr [facility] [address] [phone] Clair Quarles DO [address] [facility] [address] [place] [address] 04/22/2024 9:30 AM EDT Cardiac Studies Cardiology, [facility] [address] [facility] [address] [place] [address] [facility] [address] [facility] [address] [place] [address] 05/19/2024 9:30 AM EDT Appointment Radiology, [address] [phone] Scheduled Procedures Name Priority Associated [...] this encounter Medical Devices Implanted Type Area Coordinating Producer Device Identifier Shelf Expiration Date Model / Serial / Lot 32mm X 109mm, Zenith Fenestrated Aaa Endovascular Proximal Body Graft, Two Proximal Internal Stent Implanted:Qty: 1 on 04/15/2018 by Evens Hoyt MD [place] [facility] N/A: Aorta [employer] 03/20/2021 LISA-P-2- 32-109-R / / [id number] Stent Graft [id number] - [id number] - [id number] Implanted:Qty: 1 on 04/15/2018 by Evens Hoyt MD at [place] [facility] Right: Renal Artery GETINGE : MAQUET 11/30/2020 57219 / [id number] / [id number] Stent Graft [id number] - [id number] - [id number] Implanted:Qty: 1 on 04/15/2018 by Evens Hoyt MD at [place] [facility] Right: Renal Artery GETINGE : MAQUET 11/30/2020 09163 / [id number] / [id number] 28mm X 76mm Distal, 12mm Ipsilateral Leg, Zenith Fenestrated Aaa Endovascular Distal Bifurcated Body Graft Implanted:Qty: 1 on 04/15/2018 by Evens Hoyt MD at [place] [facility] N/A: Aorta [employer] 03/20/2021 LISA-D-12 -28-76-C / / [id number] Graft Iliac Leg Spirlz 03i17mo - [id number] Implanted:Qty: 1 on 04/15/2018 by Evens Hoyt MD at [place] [facility] Left: Iliac [employer] 09/14/2020 [id number] / / [id number] Graft Iliac Leg Spirlz [id number] - [id number] Implanted:Qty: 1 on 04/15/2018 by Evens Hoyt MD at [place] [facility] Right: Iliac [employer] 11/09/2020 [id number] / / [id number] Transfixation Pin 6mm 294.950 - [id number] Implanted:Qty: 1 on 11/14/2019 by Mayank Friedman MD at OR [facility] Right: Ankle SYNTHES 294.950 / / Description:transfixation pi n Screw Schanz [id number] - [id number] Implanted:Qty: 2 on 11/14/2019 by Mayank Friedman MD at OR [facility] Right: Leg Lower SYNTHES 294.786SH A / / Description:self drilling sh antz screws 5.0mm x 200mm [place] Trauma 2.7 Lock Screw 16mm Implanted:Qty: 2 on 11/27/2019 by Donavan Ramirez Jr., MD at [place] [facility] Right: Ankle ESTHELA : TRAUMA [id number] / / Description:hardware set [place] Trauma 2.7 Lock Screw 14mm Implanted:Qty: 1 on 11/27/2019 by Donavan Ramirez Jr., MD at [place] [facility] Right: Ankle ESTHELA : TRAUMA [id number] / / [place] Trauma 3.5 Screw 14mm Implanted:Qty: 1 on 11/27/2019 by Donavan Ramirez Jr., MD at [place] [facility] Right: Ankle ESTHELA : TRAUMA [id number] / / Description:hardware set [place] Trauma 3.5 Screw 18mm Implanted:Qty: 1 on 11/27/2019 by Donavan Ramirez Jr., MD at [place] [facility] Right: Ankle ESTHELA : TRAUMA [id number] / / Description:hardware set [place] 3.5 Lockscrew 16mm Implanted:Qty: 1 on 11/27/2019 by Donavan Ramirez Jr., MD at [place] [facility] Right: Ankle [id number] / / [place] 2.0 Plate Implanted:Qty: 1 on 11/27/2019 by Donavan Ramirez Jr., MD at [place] [facility] Right: Ankle [id number] / / [place] 2.0 Lock Screw Implanted:Qty: 2 on 11/27/2019 by Donavan Ramirez Jr., MD at [place] [facility] Right: Ankle [id number] / / [place] 2.0 Lock Screw Implanted:Qty: 1 on 11/27/2019 by Donavan Ramirez Jr., MD at [place] [facility] Right: Ankle [id number] / / [place] 2.0 Lock Screw Implanted:Qty: 1 on 11/27/2019 by Donavan Ramirez Jr., MD at [place] [facility] Right: Ankle [id number] / / Plate Fib 5h - [id number] Implanted:Qty: 1 on 11/27/2019 by Doanvan Ramirez Jr., MD at [place] [facility] Right: Ankle ESTHELA : TRAUMA / / [...] the patient have Health Care Power of Chief Investment Officer? No Code Status History Code Status Date [...] the patient have Health Care Power of Chief Investment Officer? No Full Code 02/17/2019 12:06 PM 02/18/2019 1:09 PM This order reflects the patients wishes and were consensually agreed upon. Question Answer Comments Discussion of Advance Directives occurred with: Not Discussed Does the patient have a Living Will? No Does the patient have Health Care Power of Chief Investment Officer? No Care Teams Senior Applications Architect Relationship Specialty Start Date End Date Buster Jessica MD [address] [place] [address] PCP - General Family Medicine 09/11/22 documented as of this encounter
--- OUTSIDE RECORDS SUMMARY | 2023-12-11 18:42 | External Medical Summary | Summary of Care ---
Author Name Unknown Organization [facility] Address [address] [place] [address] Phone [phone] Care Team Providers Care Door Closer Mechanic Name Role Phone Buster Jessica MD Primary Care P rovider Reason for Visit * Reason Comments Pain R ankle Limited Range Of Motion B LEs Muscle Weakness B LEs * Evaluate & Treat - Unlimited Visits (Within 10 days (routine)) - Authorized Specialty Diagnoses / Procedures Referred By Satinder vázquez Referred To Contact Physical Medicine And Rehab Diagnoses Ambulatory dysfunction Israel Schofield MD [address] [place] [id number] Referral ID Status Reason Start Date Expiration Date Visits Requested Visits Authorized [id number] Authorized Specialty Services Required 11/23/2023 08/05/[phone] Encounter Details Date Type Department Care Team (Latest Contact Info) Description 12/03/2023 10:00 AM EDT Rehab Services Physical Therapy [address] [place] [address] Marleni Quarles, PT [address] [place] [address] Ambulatory dysfunction*; Muscle weakness; Impaired functional mobility, balance, gait, and endurance Allergies Active Allergy Reactions Criticality Noted Date Comments Atorvastatin Muscle pain,Unknown 01/18/2015 Medication intolerance, not an allergy Sacubitril-Valsartan Other (Please comment) 09/17/2020 Throat swelled Sacubitril High 07/20/2023 Other Reaction(s): THROAT SWELLING Simvastatin Low 06/23/2022 Other reaction(s): MUSCLE ACHES Valsartan High 07/20/2023 Other Reaction(s): THROAT SWELLING documented as of this encounter (statuses as of 12/03/2023) Medications Medication Sig Dispensed Refills Start Date End Date Status Vitamin C 1000 MG Oral Tablet Take 1 Tablet by mouth in the morning. 0 Active Metoprolol Succinate ER 100 MG Oral Tablet Extended Release 24 Hour (toPROL XL) TAKE ONE TABLET BY MOUTH ONCE DAILY 90 Tablet 3 03/08/2023 Active Clopidogrel Bisulfate 75 MG Oral Tablet (pLAVix)Indications: PAD (peripheral artery disease) ([facility]),Coronary artery disease involving [place] coronary artery of [place] heart without angina pectoris TAKE ONE TABLET BY MOUTH ONCE DAILY 90 Tablet 3 03/13/2023 Active Famotidine 20 MG Oral Tablet (Pepcid) TAKE 1 TABLET BY MOUTH TWICE DAILY (MORNING AND AT BEDTIME) 180 Tablet 3 04/30/2023 Active Spironolactone 25 MG Oral Tablet (Aldactone)Indicatio ns:Coronary artery disease involving [place] coronary artery of [place] heart without angina pectoris,Heart failure, systolic, due to CAD ([facility]),Chronic ischemic heart disease,HTN, goal below 140/90 TAKE ONE TABLET BY MOUTH ONCE DAILY 90 Tablet 3 05/14/2023 Active Losartan Potassium 25 MG Oral Tablet (Cozaar)Indications: PAD (peripheral artery disease) ([facility]),Coronary artery disease involving [place] coronary artery of [place] heart without angina pectoris TAKE ONE TABLET [...] heart disease,Tobacco use disorder,Coronary artery disease involving [place] coronary artery of [place] heart without angina pectoris Inject 140 mg (1 pen) under the skin every 14 days. 6 mL 3 07/02/2023 Active Metoprolol Succinate ER 50 MG Oral Tablet Extended Release 24 Hour (Toprol XL)Indications:Persi stent atrial fibrillation ([facility]),Acute on chronic systolic (congestive) heart failure ([facility]) One tablet by mouth daily at [...] suspected opioid overdose. Seek immediate medical attention. [email or web address] 1 Each 3 09/15/2023 Active Additional Information [...] D, by GOLD 2017 classification ([facility]) Inhale 1 Puff by mouth in the morning and 1 Puff before bedtime. 180 Each 12 10/29/2023 Active Albuterol Sulfate (2.5 MG/3ML) 0.083% Inhalation Nebulization Solution (Proventil)Indicatio ns:COPD, group D, by GOLD 2017 classification ([facility]) Inhale 1 Vial via nebulizer every [...] before bedtime. 360 Tablet 1 10/31/2023 Active predniSONE 20 MG Oral Tablet (Deltasone)Indicatio ns:Acute drug-induced gout of multiple sites Take 2 Tablets by mouth daily for 5 days, THEN 1 Tablet daily for 7 days, THEN 0.5 Tablets daily for 8 days. 21 Tablet 0 11/14/2023 Active Allopurinol 100 MG Oral Tablet (Zyloprim)Indication s:Acute drug-induced gout of multiple sites Take 2 Tablets by mouth in the morning. 60 Tablet 5 11/14/2023 Active HYDROcodone-Acetamin ophen 7.5-325 MG Oral TabletIndications:Ch ronic bilateral low back pain without sciatica,Acute drug-induced gout of right ankle Take 1 Tablet by mouth every 6 hours as needed for Pain, Severe. 120 Tablet 0 11/14/2023 Active Veaxn-5-pjeq Ethyl Esters 1 GM Oral Capsule (Lovaza)Indications: Dyslipidemia, goal LDL below 70 Take 2 Capsules by mouth in the morning and 2 Capsules before bedtime. 120 Capsule 5 11/14/2023 Active Torsemide 100 MG Oral Tablet (Demadex)Indications :Heart failure, systolic, due to CAD ([facility]) Take 1 tablet by mouth every morning. Take an additional tablet on Sunday, Sunday and Sunday afternoon only. 150 Tablet 3 11/22/2023 Active documented as of this encounter (statuses as of 12/03/2023) Active Problems Problem Noted Date Diagnosed Date [...] fibrillation) 09/22/2021 Atherosclerotic heart diseas e of [place] coronary artery with other forms of angina [...] untreated, BMI 43.71 kg/m, NECK: 21 inches, [place] 6/24, sent for bipap titration study 01/11/11 case per [facility] completed ICD-10 update of inactive term Last Assessment & Plan: Waiting for new bipap machine BMI 35-39 ISOLATED (SEE ACTUAL BMI) 01/17/2010 Overview: Per Obesity Protocol, #19 BPH without obstruction/lower urinary tract symp toms 08/19/2009 Dyslipidemia, goal LDL below 70 07/21/2009 Overview: Per Lipid Taxonomy. documented as of this encounter (statuses as of 12/03/2023) Resolved Problems Problem Noted Date Diagnosed Date [...] 11/22/2020 10/12/2023 Coronary artery disease invo lving [place] coronary artery of [place] heart without angina pectoris 07/06/2020 10/12/2023 Chronic [...] 09/23/201305/17 Claudication 05/13/2013 10/12/2023 [employer] Other*[id number] 04/23/2012 09/12/2016 Overview: Study Title: Genomic Markers for Patients with Cardiovascular Disease Project # [id number] Ios Programmer: Comfort Aviles MD [phone] Impotence of organic origin 02/16/2011 01/10/2018 Shortness [...] as of this encounter (statuses as of 12/03/2023) Immunizations Name Administration Dates Next Due COVID-19 [...] do you have serious difficulty hearing? Yes-very NENANA 11/03/2023 Are you blind or do you [...] as of this encounter Progress Notes * Marleni Quarles, PT - 12/03/2023 10:10 AM EDT Outpatient Physical Therapy Daily Progress Note Physical Therapy [address] [place] [phone] Patient Name: Dago Gunter Date of : 1950 Age: [age] year old Date: 12/03/2023 Start of Care: 11/23/23 Plan of Care Expiration Date: 01/04/24 Visit Number: 4 Subjective: Patient reports that he was taken to the [facility] ER on Sunday due to R hip and knee pain. Upon chart review of ER visit, he was not diagnosed with any pathology and was considered exacerbation of chronic pain due to increased activity level that day. He notes that he has his usual R ankle pain this morning, rated at 7/10. He denies knee or hip pain. 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 He does not feel that this contributed to the pain that he experienced on Sunday. Objective: Pt performed 38 minutes of B LE strengthening and balance training. See below for details. Pt returned to performance of CKC exercises. Resistance added for LAQ and side stepping. Performed today Exercise Sets/repetitions Part of HEP Comments Y Standing hip abduction: B 2x10 Y Y Standing marches: B 20x Y Y Toe raises standing 20x Y Y Heel Raises standing 20x N N Romberg stance: EO/EC 30sec each N Y Modified tandem stance: EO, each foot ahead [id number] Y Y Sit to stand 10x Y N Regular stance on foam [id number] N Y Romberg stance on foam: EO/EC [id number] each N N Weight shift L/R on foam 10x N Y Standing gastroc stretch on slant board: B [id number] N Y Side stepping at countertop Green, 6x10' N Y Seated hamstring stretch: B [id number] N Y LAQ 2#, 2 x 10 N Y Seated hamstring curls 2x10, green N N Seated hip abd 2 x 10, green N N Stationary bicycling N Assessment: Patient is making good progress with standing balance with less postural sway during standing with more narrow base of support. He is more challenged with system biases, including eyes closed and standing on foam. He had an ER visit over the weekend, but this does not seem to be relatedto any treatment that he has been receiving recently. No diagnosis was determined for this pain. Hewas able to return to standing, functional strengthening exercises today with minimal progressions. Plan: Continue 2 times/week with B LE strengthening and balance training as tolerated. UNTIMED SERVICES: 0 MINUTES TIMED SERVICES: 38 MINUTES TOTAL TIMES: 38 MINUTES Marleni Quarles, PT 12/03/2023 12:04 PM documented in this encounter Plan of Treatment Upcoming Encounters Date Type Department Care Team ([facility] Contact Info) Description 12/03/2023 1:00 PM EDT Scheduled Telephone [facility], [place] [address] [place] [address] Coordinator, [facility] [address] [place] [address] 12/05/2023 10:00 AM EDT Rehab Services Physical Therapy [address] [place] [phone] Valorie Valdivia, [address] [place] [address] 12/10/2023 9:15 AM EDT Hospital Encounter [facility], Operating Room [facility] [address] [place] [phone] Freeman Beaulieu, DO [address] [place] [phone] 12/10/2023 9:15 AM EDT - 12/10/2023 9:40 AM EDT Surgery OR [facility], Operating Room [facility] [address] [place] [phone] Freeman Beaulieu, DO [address] [place] [address] INJECTION SACROILIAC JOINT 12/12/2023 12:15 PM EDT Home Visit [facility], [facility] [address] [place] [address] Xochitl Marina, ENGRAVER LETTERING [address] [place] [address] 12/13/2023 9:50 AM EDT Office Visit Family [facility] [address] [place] [phone] Buster Jessica MD [address] [place] [address] 12/20/2023 1:30 PM EDT Telemedicine [facility], [facility] [address] [place] [address] Grisel Richter CRNP [address] [place] [address] Clary Eastman, Community Health Cafeteria Assistant [address] [place] [address] 01/01/2024 10:00 AM EDT Home Visit [facility], [facility] [address] [place] [address] Lisa Tenorio RN [address] [place] [address] 01/15/2024 10:40 AM EDT Office Visit [facility] [address] [place] [phone] Clair Quarles DO 132 [place] [address] 04/22/2024 9:30 AM EDT Cardiac Studies Cardiology, [facility] [address] [place] [address] [facility] [address] [facility] [address] 05/19/2024 9:30 AM EDT Appointment Radiology, [place] [address] [place] [address] Scheduled Procedures Name Priority Associated [...] this encounter Medical Devices Implanted Type Area Box Car Checker Device Identifier Shelf Expiration Date Model / Serial / Lot 32mm X 109mm, Zenith Fenestrated Aaa Endovascular Proximal Body Graft, Two Proximal Internal Stent Implanted:Qty: 1 on 04/15/2018 by Evens Hoyt MD [place] [facility] [place]/A: Aorta [employer] 03/20/2021 ZFEN-P-2- 32-109-R / / [id number] Stent Graft [id number] - [id number] - [id number] Implanted:Qty: 1 on 04/15/2018 by Evens Hoyt MD [place] [facility] Right: Renal Artery GETINGE : MAQUET 11/30/2020 [id number] / [id number] / [id number] Stent Graft [id number] - [id number] - [id number] Implanted:Qty: 1 on 04/15/2018 by Evens Hoyt MD [place] [facility] Right: Renal Artery GETINGE : MAQUET 11/30/2020 76012 / [id number] / [id number] 28mm X 76mm Distal, 12mm Ipsilateral Leg, Zenith Fenestrated Aaa Endovascular Distal Bifurcated Body Graft Implanted:Qty: 1 on 04/15/2018 by Evens Hoyt MD [place] [facility] N/A: Aorta [employer] 03/20/2021 LISA-D-12 -28-76-C / / [id number] Graft Iliac Leg Spirlz [id number] - [id number] Implanted:Qty: 1 on 04/15/2018 by Evens Hoyt MD [place] [facility] Left: Iliac [employer] 09/14/2020 [id number] / / [id number] Graft Iliac Leg Spirlz [id number] - [id number] Implanted:Qty: 1 on 04/15/2018 by Evens Hoyt MD [place] [facility] Right: Iliac [employer] 11/09/2020 [id number] / / [id number] Transfixation Pin 6mm 294.950 - [id number] Implanted:Qty: 1 on 11/14/2019 by Mayank Friedman MD at OR [facility] Right: Ankle SYNTHES 294.950 / / Description:transfixation pi n Screw Schanz [id number] - [id number] Implanted:Qty: 2 on 11/14/2019 by Mayank Friedman MD at OR [facility] Right: Leg Lower SYNTHES 294.786SH A / / Description:self drilling sh antz screws 5.0mm x 200mm Esthela Trauma 2.7 Lock Screw 16mm Implanted:Qty: 2 on 11/27/2019 by Donavan Ramirez Jr., MD [place] [facility] [place]: Ankle ESTHELA : TRAUMA [id number] / / Description:hardware set [place] Trauma 2.7 Lock Screw 14mm Implanted:Qty: 1 on 11/27/2019 by Donavan Ramirez Jr., MD [place] [facility] [place]: Ankle ESTHELA : TRAUMA [id number] / / [place] Trauma 3.5 Screw 14mm Implanted:Qty: 1 on 11/27/2019 by Donavan Rmairez Jr., MD at [place] [facility] Right: Ankle ESTHELA : TRAUMA [id number] / / Description:hardware set [place] Trauma 3.5 Screw 18mm Implanted:Qty: 1 on 11/27/2019 by Donavan Ramirez Jr., MD at [place] [facility] Right: Ankle ESTHELA : TRAUMA [id number] / / Description:hardware set [place] 3.5 Lockscrew 16mm Implanted:Qty: 1 on 11/27/2019 by Donavan Ramirez Jr., MD at [place] [facility] [place]: Ankle [id number] / / [place] 2.0 Plate Implanted:Qty: 1 on 11/27/2019 by Donavan Ramirez Jr., MD at [place] [facility] Right: Ankle [id number] / / [place] 2.0 Lock Screw Implanted:Qty: 2 on 11/27/2019 by Donavan Ramirez Jr., MD at [place] [facility] [place]: Ankle [id number] / / [place] 2.0 Lock Screw Implanted:Qty: 1 on 11/27/2019 by Donavan Ramirez Jr., MD at [place] [facility] Right: Ankle [id number] / / [place] 2.0 Lock Screw Implanted:Qty: 1 on 11/27/2019 by Donavan Ramirez Jr., MD at [place] [facility] Right: Ankle [id number] / / Plate Fib 5h - [id number] Implanted:Qty: 1 on 11/27/2019 by Donavan Ramirez Jr., MD at [place] [facility] Right: Ankle ESTHELA : TRAUMA / / Description:hardware set documented as of this encounter Visit Diagnoses Diagnosis Ambulatory dysfunction- Primary Muscle weakness Muscle weakness (generalized) Impaired functional mobility, balance, gait, and endurance Inflammation of sacroiliac joint (HCC) Sacroiliitis, not elsewhere classified documented in this encounter Advance Directives Latest Code Status on File Code Status Date Activated Date Inactivated Comments Full Code 11/03/2023 12:54 AM 11/03/2023 9:39 PM This order reflects the patients wishes and were consensually agreed upon. Question Answer Comments Discussion of Advance Directives occurred with: Patient Does the patient have a Living Will? No Does the patient have Health Care Power of [place]? No Code Status History Code Status Date [...] the patient have Health Care Power of [place]? No Full Code 02/17/2019 12:06 PM 02/18/2019 1:09 PM This order reflects the patients wishes and were consensually agreed upon. Question Answer Comments Discussion of Advance Directives occurred with: Not Discussed Does the patient have a Living Will? No Does the patient have Health Care Power of [place]? No Care Teams Door Closer Mechanic Relationship Specialty Start Date End Date Buster Jessica MD [address] [place] [address] PCP - General Family Medicine 09/11/22 documented as of this encounter
--- OUTSIDE RECORDS SUMMARY | 2023-12-11 18:42 | External Medical Summary | Summary of Care ---
Author Name Unknown Organization [facility] Address [address] [place] [address] Phone [phone] Care Team Providers Care Audiovisual Production Specialist Name Role Phone Buster Jessica MD Primary Care P [facility] Reason for Visit * Reason Onset Date Comments [facility]: Maintenance 12/03/2023 Encounter Details Date Type Department Care Team (Late st Contact Info) Description 12/03/2023 Telephone [facility], [facility] [address] [place], [place] [phone] [facility], Nurse [facility] [address] [place] [address] [facility]: Maintenance Allergies [...] (peripheral artery disease) (HCC),Coronary artery disease involving cheesh-na coronary artery of cheesh-na heart without angina pectoris TAKE ONE TABLET BY MOUTH ONCE DAILY 90 Tablet 3 03/13/2023 Active Famotidine 20 MG Oral Tablet (Pepcid) TAKE 1 TABLET BY MOUTH TWICE DAILY (MORNING AND AT BEDTIME) 180 Tablet 3 04/30/2023 Active Spironolactone 25 MG Oral Tablet (Aldactone)Indicatio ns:Coronary artery disease involving cheesh-na coronary artery of cheesh-na heart without angina pectoris,Heart failure, systolic, due to CAD ([facility]),Chronic ischemic heart disease,HTN, goal below 140/90 TAKE ONE TABLET BY MOUTH ONCE DAILY 90 Tablet 3 05/14/2023 Active Losartan Potassium 25 MG Oral Tablet (Cozaar)Indications: PAD (peripheral artery disease) ([facility]),Coronary artery disease involving cheesh-na coronary artery of cheesh-na heart without angina pectoris TAKE ONE TABLET [...] heart disease,Tobacco use disorder,Coronary artery disease involving cheesh-na coronary artery of cheesh-na heart without angina pectoris Inject 140 mg [...] suspected opioid overdose. Seek immediate medical attention. [email or web address] 1 Each 3 09/15/2023 Active Additional Information [...] 2017 classification ([facility]) Inhale 1 Puff by mouth in the morning and 1 Puff before bedtime. 180 Each 12 10/29/2023 Active Albuterol Sulfate (2.5 MG/3ML) 0.083% Inhalation Nebulization Solution (Proventil)Indicatio ns:COPD, group D, by GOLD 2017 classification ([facility]) Inhale 1 Vial via nebulizer every [...] Pain, Severe. 120 Tablet 0 11/14/2023 Active Yosqz-0-itgz Ethyl Esters 1 GM Oral Capsule (Lovaza)Indications: [...] fibrillation) 09/22/2021 Atherosclerotic heart diseas e of cheesh-na coronary artery with other forms of angina [...] BMI 43.71 kg/m, NECK: 21 inches, [place] 6/24, sent for bipap titration study 01/11/11 [...] 11/22/2020 10/12/2023 Coronary artery disease invo lving cheesh-na coronary artery of cheesh-na heart without angina pectoris 07/06/2020 10/12/2023 Chronic [...] 09/23/201305/17 Claudication 05/13/2013 10/12/2023 [employer] Other*[id number] 04/23/2012 09/12/2016 Overview: Study Title: Genomic Markers for Patients with Cardiovascular Disease Project # [id number] Application Services Manager: Comfort Aviles MD [phone] Impotence of organic origin 02/16/2011 01/10/2018 Shortness [...] do you have serious difficulty hearing? Yes-very ELIM IRA 11/03/2023 Are you blind or do you [...] Telephone Encounter - Erlinda Virk LPN - 12/03/2023 9:15 AM EDT Noted on OCTAVIO list Follow up call is scheduled documented in this encounter Plan of Treatment Upcoming Encounters Date Type Department Care Team ([facility] Contact Info) Description 12/03/2023 10:00 AM EDT Rehab Services Physical Therapy [address] [place] [phone] Marleni Quarles, PT [address] [place] [address] 12/03/2023 1:00 PM EDT Scheduled Telephone [facility] [address] [place] [address] Coordinator, [facility] [address] [place] [address] 12/05/2023 10:00 AM EDT Rehab Services Physical Therapy [facility] [address] [facility] [address] [place] [address] Valorie Valdivia, DIMPLE 68 [facility] Dimitri [address] [place] [address] 12/10/2023 9:15 AM EDT Hospital Encounter [facility], Operating Room [facility] [address] [place], [place] [phone] Freeman Beaulieu, DO [address] [place] [address] 12/10/2023 9:15 AM EDT - 12/10/2023 9:40 AM EDT Surgery OR [facility], Operating Room [facility] [address] [place] [phone] Freeman Beaulieu, DO [address] [place] [phone] INJECTION SACROILIAC JOINT 12/12/2023 12:15 PM EDT Home Visit [facility] [address] [place] [address] Xochitl Marina LCSW [address] [place] [address] 12/13/2023 9:50 AM EDT Office Visit Family Practice [facility] [address] [place] [phone] Buster Jessica MD [address] [place] [address] 12/20/2023 1:30 PM EDT Telemedicine [facility], [facility] [address] [place] [address] Grisel Richter CRNP [address] [place] [address] Clary Eastman, Community Health Repairer [employer] [address] [place] [address] 01/01/2024 10:00 AM EDT [facility] Visit [facility] [place] [facility] [address] [place] [address] Lisa Tenorio RN [address] [place] [address] 01/15/2024 10:40 AM EDT Office Visit [facility] [address] [facility] [phone] Clair Quarles DO [address] [facility] [address] 04/22/2024 9:30 AM EDT Cardiac Studies Cardiology, [facility] 132 [place] [address] [facility] 132 [facility] [place] [address] 05/19/2024 9:30 AM EDT Appointment Radiology, [address] [address] Scheduled Procedures Name Priority Associated [...] this encounter Medical Devices Implanted Type Area Production Sound Mixer Device Identifier Shelf Expiration Date Model / Serial / Lot 32mm X 109mm, Zenith Fenestrated Aaa Endovascular Proximal Body Graft, Two Proximal Internal Stent Implanted:Qty: 1 on 04/15/2018 by Evens Hoyt MD at OR [facility] N/A: Aorta [employer] 03/20/2021 LISA-P-2- 32-109-R / / [id number] Stent Graft [id number] - [id number] - [id number] Implanted:Qty: 1 on 04/15/2018 by Evens Hoyt MD at OR [facility] Right: Renal Artery GETINGE : MAQUET 11/30/2020 52633 / [id number] / [id number] Stent Graft [id number] - [id number] - [id number] Implanted:Qty: 1 on 04/15/2018 by Evens Hoyt MD at OR [facility] Right: Renal Artery GETINGE : MAQUET 11/30/2020 99554 / [id number] / [id number] 28mm X 76mm Distal, 12mm Ipsilateral Leg, Zenith Fenestrated Aaa Endovascular Distal Bifurcated Body Graft Implanted:Qty: 1 on 04/15/2018 by Evens Hoyt MD at OR [facility] N/A: Aorta [employer] 03/20/2021 LISA-D-12 -28-76-C / / [id number] Graft Iliac Leg Spirlz 83t39ix - [id number] Implanted:Qty: 1 on 04/15/2018 by Evens Hoyt MD at OR [facility] Left: Iliac [employer] 09/14/2020 [id number] / / [id number] Graft Iliac Leg Spirlz 62s23km - [id number] Implanted:Qty: 1 on 04/15/2018 by Evens Hoyt MD at OR [facility] Right: Iliac [employer] 11/09/2020 [id number] / / [id number] Transfixation Pin 6mm 294.950 - [id number] Implanted:Qty: 1 on 11/14/2019 by Mayank Friedman MD at OR [facility] Right: Ankle SYNTHES 294.950 / / Description:transfixation pi n Screw Schanz 5.3eru778lb - [id number] Implanted:Qty: 2 on 11/14/2019 by Mayank Friedman MD at OR [facility] Right: Leg Lower SYNTHES 294.786SH A / / Description:self drilling sh antz screws 5.0mm x 200mm Esthela Trauma 2.7 Lock Screw 16mm Implanted:Qty: 2 on 11/27/2019 by Donavan Ramirez Jr., MD at OR [facility] Right: Ankle ESTHELA : TRAUMA [id number] / / Description:hardware set Breese Trauma 2.7 Lock Screw 14mm Implanted:Qty: 1 on 11/27/2019 by Donavan Ramirez Jr., MD at OR [facility] Right: Ankle ESTHELA : TRAUMA [id number] / / Esthela Trauma 3.5 Screw 14mm Implanted:Qty: 1 on 11/27/2019 by Donavan Ramirez Jr., MD at OR [facility] Right: Ankle ESTHELA : TRAUMA [id number] / / Description:hardware set Breese Trauma 3.5 Screw 18mm Implanted:Qty: 1 on 11/27/2019 by Donavan Ramirez Jr., MD at OR [facility] Right: Ankle ESTHELA : TRAUMA [id number] / / Description:hardware set Breese 3.5 Lockscrew 16mm Implanted:Qty: 1 on 11/27/2019 by Donavan Ramirez Jr., MD at OR [facility] Right: Ankle [id number] / / Breese 2.0 Plate Implanted:Qty: 1 on 11/27/2019 by Donavan Ramirez Jr., MD at OR [facility] Right: Ankle [id number] / / Breese 2.0 Lock Screw Implanted:Qty: 2 on 11/27/2019 by Donavan Ramirez Jr., MD at OR [facility] Right: Ankle [id number] / / Breese 2.0 Lock Screw Implanted:Qty: 1 on 11/27/2019 by Donavan Ramirez Jr., MD at OR [facility] Right: Ankle [id number] / / Esthela 2.0 Lock Screw Implanted:Qty: 1 on 11/27/2019 by Donavan Ramirez Jr., MD at OR [facility] Right: Ankle [id number] / / Plate Fib 5h - [id number] Implanted:Qty: 1 on 11/27/2019 by Donavan Ramirez Jr., MD at OR [facility] Right: Ankle ESTHELA : TRAUMA / / [...] the patient have Health Care Power of Metal Room Dental Technician? No Code Status History Code Status Date [...] the patient have Health Care Power of Metal Room Dental Technician? No Full Code 02/17/2019 12:06 PM 02/18/2019 1:09 PM This order reflects the patients wishes and were consensually agreed upon. Question Answer Comments Discussion of Advance Directives occurred with: Not Discussed Does the patient have a Living Will? No Does the patient have Health Care Power of Metal Room Dental Technician? No Care Teams Audiovisual Production Specialist Relationship Specialty Start Date End Date Buster Jessica MD [address] [place] [address] PCP - General Family Medicine 09/11/22 documented as of this encounter
--- OUTSIDE RECORDS SUMMARY | 2023-12-11 18:42 | External Medical Summary | Summary of Care ---
Author Name Unknown Organization [facility] Address [address] [place] [address] Phone [phone] Care Team Providers Care Manager English Name Role Phone Buster Jessica MD Primary Care [facility] Encounter Details Date Type Department Care Team (Late st Contact Info) Description 12/03/2023 Population Health External Data Unspecified Department Allergies [...] Oral Tablet (pLAVix)Indications: PAD (peripheral artery disease) ([facility]),Coronary artery disease involving [place] coronary artery of [place] heart without angina pectoris TAKE ONE TABLET BY MOUTH ONCE DAILY 90 Tablet 3 03/13/2023 Active Famotidine 20 MG Oral Tablet (Pepcid) TAKE 1 TABLET BY MOUTH TWICE DAILY (MORNING AND AT BEDTIME) 180 Tablet 3 04/30/2023 Active Spironolactone 25 MG Oral Tablet (Aldactone)Indicatio ns:Coronary artery disease involving [place] coronary artery of [place] heart without angina pectoris,Heart failure, systolic, due to CAD ([facility]),Chronic ischemic heart disease,HTN, goal below 140/90 TAKE ONE TABLET BY MOUTH ONCE DAILY 90 Tablet 3 05/14/2023 Active Losartan Potassium 25 MG Oral Tablet (Cozaar)Indications: PAD (peripheral artery disease) ([facility]),Coronary artery disease involving [place] coronary artery of [place] heart without angina pectoris TAKE ONE TABLET BY MOUTH ONCE DAILY 90 Tablet 3 06/04/2023 Active Baclofen 20 MG Oral TabletIndications:Ch ronic bilateral low back pain without sciatica Take 1 Tablet by mouth 3 times a day as needed for Muscle spasms. 90 Tablet 5 06/06/2023 Active Repatha SureClick 140 MG/ML Subcutaneous Solution Auto-injector (evolocumab)Indicati ons:Obstructive sleep apnea,Heart failure, systolic, due to CAD ([facility]),Dyslipidemia, goal LDL below 70,Chronic ischemic heart disease,Tobacco use disorder,Coronary artery disease involving [place] coronary artery of [place] heart without angina pectoris Inject 140 mg (1 pen) under the skin every 14 days. 6 mL 3 07/02/2023 Active Metoprolol Succinate ER 50 MG Oral Tablet Extended Release 24 Hour (Toprol XL)Indications:Persi stent atrial fibrillation ([facility]),Acute on chronic systolic (congestive) heart failure ([facility]) One tablet by mouth daily at bedtime, this is in addition to the previous prescription for 100 milligrams daily in the morning. 90 Tablet 3 08/23/2023 Active Digoxin 125 MCG Oral Tablet (Lanoxin) Take 1 Tablet by mouth in the morning. 90 Tablet 3 08/23/2023 Active ARIPiprazole 2 MG Oral Tablet (Abilify)Indications :Moderate episode of recurrent major depressive disorder ([facility]) Take 1 Tablet by mouth in the morning. 30 Tablet 1 09/06/2023 Active Naloxone HCl 4 MG/0.1ML Nasal Liquid (Narcan Nasal) Administer 1 spray into 1 nostril for suspected opioid overdose. Seek immediate medical attention. [email or web address] 1 Each 3 09/15/2023 Active Additional Information Patient not taking.Reported on 10/31/2023 Desvenlafaxine Succinate ER 100 MG Oral Tablet Extended Release 24 Hour (Pristiq)Indications :Moderate episode of recurrent major depressive disorder (HCC) Take 1 Tablet by mouth in the morning. 30 Tablet 09/21/2023 Active metOLazone 2.5 MG Oral Tablet (Zaroxolyn)Indicatio ns:Ischemic cardiomyopathy Take 1 Tablet by mouth once a week. take 30 minutes prior to torsemide 4 Tablet 5 10/22/2023 Active Fluticasone-Salmeter ol 250-50 MCG/ACT Inhalation Aerosol Powder Breath Activated (Wixela Inhub)Indications:CO PD, group D, by GOLD 2017 classification ([facility]) Inhale 1 Puff by mouth in the morning and 1 Puff before bedtime. 180 Each 12 10/29/2023 Active Albuterol Sulfate (2.5 MG/3ML) 0.083% Inhalation Nebulization Solution (Proventil)Indicatio ns:COPD, group D, by GOLD 2017 classification ([facility]) Inhale 1 Vial via nebulizer every 4 hours as needed for Wheezing. 75 mL 10/29/2023 Active Eliquis 5 MG Oral Tablet (Apixaban)Indication s:Persistent atrial fibrillation (HCC) TAKE 1 TABLET BY MOUTH TWICE DAILY 60 Tablet 10/30/2023 Active Tamsulosin HCl 0.4 MG Oral Capsule (Flomax)Indications: Benign prostatic hyperplasia (BPH) with post-void dribbling Take 2 Capsules by mouth every evening. 180 Capsule 10/31/2023 Active Potassium Chloride ER 10 MEQ Oral Tablet Extended ReleaseIndications:H TN, goal below 140/90,Paroxysmal atrial fibrillation (HCC),LBBB (left bundle branch block) Take 2 Tablets by mouth in the morning and 2 Tablets before bedtime. 360 Tablet 10/31/2023 Active predniSONE 20 MG Oral Tablet [...] Pain, Severe. 120 Tablet 0 11/14/2023 Active Sferd-8-iktf Ethyl Esters 1 GM Oral Capsule (Lovaza)Indications: [...] fibrillation) 09/22/2021 Atherosclerotic heart diseas e of [place] coronary artery with other forms of angina [...] untreated, BMI 43.71 kg/m, NECK: 21 inches, [employer] 6/24, sent for bipap titration study 01/11/11 [...] 11/22/2020 10/12/2023 Coronary artery disease invo lving [place] coronary artery of [place] heart without angina pectoris 07/06/2020 10/12/2023 Chronic [...] 09/23/201305/17 Claudication 05/13/2013 10/12/2023 [employer] Other*[id number] 04/23/2012 09/12/2016 Overview: Study Title: Genomic Markers for Patients with Cardiovascular Disease Project # [id number] Radiology Nurse: Comfort Aviles MD [phone] Impotence of organic origin 02/16/2011 01/10/2018 Shortness [...] do you have serious difficulty hearing? Yes-very [place]ET[place] 11/03/2023 Are you blind or do you [...] No 11/03/2023 documented as of this encounter Plan of Treatment Upcoming Encounters Date Type Department Care Team ([facility] Contact Info) Description 12/03/2023 10:00 AM EDT Rehab Services Physical Therapy [address] [place] [address] Marleni Quarles, PT [address] [place], [place] [address] [place] [address] 12/03/2023 1:00 PM EDT Scheduled Telephone [facility] [place] [facility] [address] [place] [address] Coordinator, [facility] [address] [place] [address] 12/05/2023 10:00 AM EDT Rehab Services Physical Therapy [address] [address] Valorie Valdivia, [place] [address] [place] [address] 12/10/2023 9:15 AM EDT Hospital Encounter [facility], Operating Room [facility] [address] [place] [phone] Freeman Beaulieu DO [address] [place] [address] 12/10/2023 9:15 AM EDT - 12/10/2023 9:40 AM EDT Surgery [facility], Operating Room [facility] [address] [place] [phone] Freeman Beaulieu DO [address] [place] [phone] INJECTION SACROILIAC JOINT 12/12/2023 12:15 PM EDT Home Visit [facility] [address] [place] [address] Xochitl Marina, [facility] [address] [place] [address] 12/13/2023 9:50 AM EDT Office Visit [address] [phone] Buster Jessica MD [address] [place] [address] 12/20/2023 1:30 PM EDT Telemedicine [facility] [address] [place] [address] Grisel Richter CRNP [address] [place] [address] Clary Eastman, Community Health Police Officer [address] [place] [address] 01/01/2024 10:00 AM EDT Home Visit [facility] [address] [place] [address] Lisa Tenorio, RN [address] [place] [address] 01/15/2024 10:40 AM EDT Office Visit Sleep Disorders Ctr [facility] [address] [place] [phone] Clair Quarles, [address] [place] [address] 04/22/2024 9:30 AM EDT Cardiac Studies Cardiology, [facility] [address] [place] [address] [place], [facility] [address] [place] [address] 05/19/2024 9:30 AM EDT Appointment Radiology, [address] [address] Scheduled Procedures Name Priority Associated [...] this encounter Medical Devices Implanted Type Area Dowel Pointer Device Identifier Shelf Expiration Date Model / Serial / Lot 32mm X 109mm, Zenith Fenestrated Aaa Endovascular Proximal Body Graft, Two Proximal Internal Stent Implanted:Qty: 1 on 04/15/2018 by Evens Hoyt MD at OR [facility] N/A: Aorta [employer] 03/20/2021 ZFEN-P-2- 32-109-R / / [id number] Stent Graft [id number] - [id number] - [id number] Implanted:Qty: 1 on 04/15/2018 by Evens Hoyt MD at OR [facility] Right: Renal Artery GETINGE : MAQUET 11/30/2020 09847 / [id number] / [id number] Stent Graft [id number] - [id number] - [id number] Implanted:Qty: 1 on 04/15/2018 by Evens Hoyt MD at OR [facility] Right: Renal Artery GETINGE : MAQUET 11/30/2020 07039 / [id number] / [id number] 28mm X 76mm Distal, 12mm Ipsilateral Leg, Zenith Fenestrated Aaa Endovascular Distal Bifurcated Body Graft Implanted:Qty: 1 on 04/15/2018 by Evens Hoyt MD at OR [facility] N/A: Aorta [employer] 03/20/2021 ZFEN-D-12 -28-76-C / / [id number] Graft Iliac Leg Spirlz [id number] - [id number] Implanted:Qty: 1 on 04/15/2018 by Evens Hoyt MD at OR [facility] Left: Iliac [employer] 09/14/2020 [id number] / / [id number] Graft Iliac Leg Spirlz 48z80ru - [id number] Implanted:Qty: 1 on 04/15/2018 by Evens Hoyt MD at OR [facility] Right: Iliac [employer] 11/09/2020 [id number] / / [id number] Transfixation Pin 6mm 294.950 - [id number] Implanted:Qty: 1 on 11/14/2019 by Mayank Friedman MD at OR [facility] Right: Ankle SYNTHES 294.950 / / Description:transfixation pi n Screw Schanz 5.1bjy312ep - [id number] Implanted:Qty: 2 on 11/14/2019 by Mayank Friedman MD at OR [facility] Right: Leg Lower SYNTHES 294.786SH A / / Description:self drilling sh antz screws 5.0mm x 200mm Esthela Trauma 2.7 Lock Screw 16mm Implanted:Qty: 2 on 11/27/2019 by Donavan Ramirez Jr., MD at OR [facility] Right: Ankle ESTHELA : TRAUMA [id number] / / Description:hardware set Quapaw Trauma 2.7 Lock Screw 14mm Implanted:Qty: 1 on 11/27/2019 by Donavan Ramirez Jr., MD at OR [facility] Right: Ankle ESTHELA : TRAUMA [id number] / / Esthela Trauma 3.5 Screw 14mm Implanted:Qty: 1 on 11/27/2019 by Donavan Ramirez Jr., MD at OR [facility] Right: Ankle ESTHELA : TRAUMA [id number] / / Description:hardware set Esthela Trauma 3.5 Screw 18mm Implanted:Qty: 1 on 11/27/2019 by Donavan Ramirez Jr., MD at OR [facility] Right: Ankle ESTHELA : TRAUMA 704297 / / Description:hardware set Quapaw 3.5 Lockscrew 16mm Implanted:Qty: 1 on 11/27/2019 by Donavan Ramirez Jr., MD at OR [facility] Right: Ankle 240386 / / Quapaw 2.0 Plate Implanted:Qty: 1 on 11/27/2019 by Donavan Ramirez Jr., MD at OR [facility] Right: Ankle [id number] / / Esthela 2.0 Lock Screw Implanted:Qty: 2 on 11/27/2019 by Donavan Ramirez Jr., MD at OR [facility] Right: Ankle [id number] / / Esthela 2.0 Lock Screw Implanted:Qty: 1 on 11/27/2019 by Donavan Ramirez Jr., MD at OR [facility] Right: Ankle [id number] / / Quapaw 2.0 Lock Screw Implanted:Qty: 1 on 11/27/2019 by Donavan Ramirez Jr., MD at OR [facility] Right: Ankle 008002 / / Plate Fib 5h - [id number] Implanted:Qty: 1 on 11/27/2019 by Donavan Ramirez Jr., MD at OR [facility] Right: Ankle ESTHELA : TRAUMA / / [...] the patient have Health Care Power of Block Making Machine Operator? No Code Status History Code [...] the patient have Health Care Power of Block Making Machine Operator? No Full Code 02/17/2019 12:06 PM 02/18/2019 1:09 PM This order reflects the patients wishes and were consensually agreed upon. Question Answer Comments Discussion of Advance Directives occurred with: Not Discussed Does the patient have a Living Will? No Does the patient have Health Care Power of Block Making Machine Operator? No Care Teams Manager English Relationship Specialty Start Date End Date Buster Jessica MD [address] [place] [address] PCP - General Family Medicine 09/11/22 documented as of this encounter
--- OUTSIDE RECORDS SUMMARY | 2023-12-11 18:42 | External Medical Summary | Summary of Care ---
Author Name Unknown Organization [facility] Address [address] [place] [address] Phone [phone] Care Team Providers Care Masonry Installer Name Role Phone Buster Jessica MD Primary Care P [facility] [place] Reason for Visit * Reason Onset Date Comments Follow Up 12/03/2023 Encounter Details Date Type Department Care Team (Late st Contact Info) Description 12/03/2023 1:00 PM EDT Scheduled Telephone [facility] [place] [address] [place] [address] Coordinator, [facility] [address] [place] [address] Allergies Active Allergy Reactions Criticality Noted Date [...] Oral Tablet (pLAVix)Indications: PAD (peripheral artery disease) ([facility]),Coronary artery disease involving eagle coronary 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 pectoris TAKE ONE TABLET BY MOUTH ONCE DAILY 90 Tablet 3 03/13/2023 Active Famotidine 20 MG Oral Tablet (Pepcid) TAKE 1 TABLET BY MOUTH TWICE DAILY (MORNING AND AT BEDTIME) 180 Tablet 3 04/30/2023 Active Spironolactone 25 MG Oral Tablet (Aldactone)Indicatio ns:Coronary artery disease involving eagle coronary 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 pectoris,Heart failure, systolic, due to CAD ([facility]),Chronic ischemic heart disease,HTN, goal below 140/90 TAKE ONE TABLET BY MOUTH ONCE DAILY 90 Tablet 3 05/14/2023 Active Losartan Potassium 25 MG Oral Tablet (Cozaar)Indications: PAD (peripheral artery disease) ([facility]),Coronary artery 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 90 Tablet 5 06/06/2023 Active Repatha SureClick 140 MG/ML Subcutaneous Solution Auto-injector (evolocumab)Indicati ons:Obstructive sleep apnea,Heart failure, systolic, due to CAD ([facility]),Dyslipidemia, goal LDL below 70,Chronic ischemic heart disease,Tobacco use disorder,Coronary artery disease involving eagle coronary 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 pectoris Inject 140 mg [...] suspected opioid overdose. Seek immediate medical attention. [email or web address] 1 Each 3 09/15/2023 Active Additional Information [...] D, by GOLD 2017 classification ([facility]) Inhale 1 Puff by mouth in the morning and 1 Puff before bedtime. 180 Each 12 10/29/2023 Active Albuterol Sulfate (2.5 MG/3ML) 0.083% Inhalation Nebulization Solution (Proventil)Indicatio ns:COPD, group D, by GOLD 2017 classification ([facility]) Inhale 1 Vial via nebulizer [...] Pain, Severe. 120 Tablet 0 11/14/2023 Active Linox-0-ertf Ethyl Esters 1 GM Oral Capsule (Lovaza)Indications: [...] fibrillation) 09/22/2021 Atherosclerotic heart diseas e of eagle coronary artery with other forms of angina [...] untreated, BMI 43.71 kg/m, NECK: 21 inches, [place] 6/24, sent for bipap titration study 01/11/11 [...] 11/22/2020 10/12/2023 Coronary artery disease invo lving eagle coronary 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 pectoris 07/06/2020 10/12/2023 Chronic [...] 09/23/201305/17 Claudication 05/13/2013 10/12/2023 [employer] Other*[id number] 04/23/2012 09/12/2016 Overview: Study Title: Genomic Markers for Patients with Cardiovascular Disease Project # [id number] Medical Officer: Comfort Aviles MD [phone] Impotence of organic origin 02/16/2011 01/10/2018 Shortness [...] do you have serious difficulty hearing? Yes-very LYTTON 11/03/2023 Are you blind or do you [...] encounter Miscellaneous Notes * Telephone Encounter - Chan Nagy RN - 12/03/2023 9:12 AM EDT [facility] ED Follow Up Patient Overview: Patient Name: Dago Gunter Discharging Facility: [facility] Current [facility] Status: Currently Enrolled - Focused Care Management Outpatient Risk of Hospital Admission and ED Visit: 49 % ED Clinical Background: ED Discharge Diagnosis: Other: Right lower extremity pain Objective Data 12/01/2023 12:11 PM 12/01/2023 11:18 AM 12/01/2023 11:14 AM 12/01/2023 11:13 AM 12/01/2023 11:10 AM VITALS ACROSS ENCOUNTERS BP 122/68 105/60 91/62 98/56 98/58 Pulse 80 86 82 87 81 Disposition Overview: Remote Patient Monitoring Given: NO Remote Patient Monitoring Oxygen Requirements: NO supplemental oxygen needs identified with status of: NO DME needs identified DME Needs: NO DME needs identified with status of: NO DME needs identified Medication Review: New medication(s) added: steroid taper Current Concerns: Spoke to Dago, he states he is doing ok, right hip, right leg pain has resolved. He completed steroid taper. Patient encouraged to call [facility] intake phone number for all urgent, non-emergent health issues. [facility] contact information provided. Scheduled follow-up includes: ED to Home follow up complete with appropriate follow up scheduled. Future Visits Scheduled: Future Appointments-next 60 days Date/Time Provider Specialty Dept Phone 12/03/2023 10:00 AM (Arrive by 9:45 AM) Marleni Quarles, PT [facility] Re[facility] [phone] 12/03/2023 1:00 PM Coordinator, [facility] [phone] 12/05/2023 10:00 AM (Arrive by 9:45 AM) Valorie Valdivia SOCIAL SERVICE LIAISON [facility] [phone] 12/12/2023 12:15 PM Xochitl Marina, FOUNDRY ENGINEER [facility] [phone] 12/13/2023 9:50 AM (Arrive by 9:35 AM) Buster Jessica MD Family Medicine [phone] 12/20/2023 1:30 PM Clary Eastman, [facility] Shell Press Operator; Grisel Richter CRNP [facility] [phone] 01/01/2024 10:00 AM Lisa Tenorio RN [facility] [phone] 01/15/2024 10:40 AM (Arrive by 10:25 AM) Clair Quarles, DO Sleep Disorders [phone] 04/22/2024 9:30 AM (Arrive by 9:15 AM) Fredy Shaw [facility] Cardiology [phone] 05/19/2024 9:30 [facility] [phone] Chan Nagy, [facility] Telehealth Scheduling Guidelines Current Health Monitor Ordering Guidelines documented in this encounter Plan of Treatment Upcoming Encounters Date Type Department Care Team ([facility] st Contact Info) Description 12/03/2023 10:00 AM EDT Rehab Services Physical Therapy [address] [address] Marleni Quarles, PT [address] [place] [address] 12/05/2023 10:00 AM EDT Rehab Services Physical Therapy [facility] [address] [facility] [address] [place] [phone] Valorie Valdivia, SOCIAL SERVICE LIAISON [address] [facility] [address] [place] [address] 12/10/2023 9:15 AM EDT Hospital Encounter [facility], Operating Room [facility] [address] [place] [phone] Freeman Beaulieu, DO [address] [place] [phone] 12/10/2023 9:15 AM EDT - 12/10/2023 9:40 AM EDT Surgery OR [facility], Operating Room [facility] [address] [place] [phone] Freeman Beaulieu, DO [address] [place] [phone] INJECTION SACROILIAC JOINT 12/12/2023 12:15 PM EDT Home Visit [facility] [place] [address] [place] [address] Xochitl Marina, [facility] [address] [place] [address] 12/13/2023 9:50 AM EDT Office Visit Family [facility] [address] [place] [phone] Buster Jessica MD [address] [place] [address] 12/20/2023 1:30 PM EDT Telemedicine [facility] [place] [address] [place] [address] Grisel Richter CRNP [address] [place] [address] Clary Eastman, [facility] Shell Press Operator [address] [place] [address] 01/01/2024 10:00 AM EDT Home Visit [facility], [facility] [address] [place] [address] Lisa Tenorio RN [address] [place] [address] 01/15/2024 10:40 AM EDT Office Visit Sleep Disorders [facility] [address] [place] [phone] Clair Quarles DO [address] [place] [address] 04/22/2024 9:30 AM EDT Cardiac Studies Cardiology, [facility] [address] [place] [address] [facility] [address] [place] [address] 05/19/2024 9:30 AM EDT Appointment Radiology, [place] [id number] [place] [address] Scheduled Procedures Name Priority Associated [...] 10/08/2020 DISCUSS TOBACCO CESSATION (REFER TO SMARTSET #4026) 06/02/2023 06/02/2022, 07/21/2020 Depression, Most Recent Score [...] this encounter Medical Devices Implanted Type Area Professor Of Forest Planning Device Identifier Shelf Expiration Date Model / Serial / Lot 32mm X 109mm, Zenith Fenestrated Aaa Endovascular Proximal Body Graft, Two Proximal Internal Stent Implanted:Qty: 1 on 04/15/2018 by Evens Hoyt MD at OR [facility] N/A: Aorta [employer] 03/20/2021 ZFEN-P-2- 32-109-R / / [id number] Stent Graft [id number] - [id number] - [id number] Implanted:Qty: 1 on 04/15/2018 by Evens Hoyt MD at OR [facility] Right: Renal Artery GETINGE : MAQUET 11/30/2020 [id number] / [id number] / [id number] Stent Graft [id number] - [id number] - [id number] Implanted:Qty: 1 on 04/15/2018 by Evens Hoyt MD at OR [facility] Right: Renal Artery GETINGE : MAQUET 11/30/2020 [id number] / [id number] / [id number] 28mm X 76mm Distal, 12mm Ipsilateral Leg, Zenith Fenestrated Aaa Endovascular Distal Bifurcated Body Graft Implanted:Qty: 1 on 04/15/2018 by Evens Hoyt MD at OR [facility] N/A: Aorta [employer] 03/20/2021 ZFEN-D-12 -28-76-C / / [id number] Graft Iliac Leg Spirlz [id number] - [id number] Implanted:Qty: 1 on 04/15/2018 by Evens Hoyt MD at OR [facility] Left: Iliac [employer] 09/14/2020 [id number] / / [id number] Graft Iliac Leg Spirlz 48w36di - [id number] Implanted:Qty: 1 on 04/15/2018 by Evens Hoyt MD at OR [facility] Right: Iliac [employer] 11/09/2020 [id number] / / [id number] Transfixation Pin 6mm 294.950 - [id number] Implanted:Qty: 1 on 11/14/2019 by Mayank Friedman MD at OR [facility] Right: Ankle SYNTHES 294.950 / / Description:transfixation pi n Screw Schanz 5.0qob852qf - [id number] Implanted:Qty: 2 on 11/14/2019 by Mayank Friedman MD at OR [facility] Right: Leg Lower SYNTHES 294.786SH A / / Description:self drilling sh antz screws 5.0mm x 200mm [place] Trauma 2.7 Lock Screw 16mm Implanted:Qty: 2 on 11/27/2019 by Donavan Ramirez Jr., MD at OR [facility] Right: Ankle ESTHELA : TRAUMA [id number] / / Description:hardware set Esthela Trauma 2.7 Lock Screw 14mm Implanted:Qty: 1 on 11/27/2019 by Donavan Ramirez Jr., MD at OR [facility] Right: Ankle ESTHELA : TRAUMA [id number] / / [place] Trauma 3.5 Screw 14mm Implanted:Qty: 1 on 11/27/2019 by Donavan Ramirez Jr., MD at OR [facility] Right: Ankle ESTHELA : TRAUMA [id number] / / Description:hardware set [place] Trauma 3.5 Screw 18mm Implanted:Qty: 1 on 11/27/2019 by Donavan Ramirez Jr., MD at OR [facility] Right: Ankle ESTHELA : TRAUMA [id number] / / Description:hardware set Esthela 3.5 Lockscrew 16mm Implanted:Qty: 1 on 11/27/2019 by Donavan Ramirez Jr., MD at OR [facility] Right: Ankle [id number] / / [place] 2.0 Plate Implanted:Qty: 1 on 11/27/2019 by Donavan Ramirez Jr., MD at OR [facility] Right: Ankle [id number] / / Esthela 2.0 Lock Screw Implanted:Qty: 2 on 11/27/2019 by Donavan Ramirez Jr., MD at OR [facility] Right: Ankle [id number] / / Esthela 2.0 Lock Screw Implanted:Qty: 1 on 11/27/2019 by Donavan Ramirez Jr., MD at OR [facility] Right: Ankle [id number] / / Esthela 2.0 Lock Screw Implanted:Qty: 1 on 11/27/2019 by Donavan Ramirez Jr., MD at OR [facility] Right: Ankle [id number] / / Plate Fib - [id number] Implanted:Qty: 1 on 11/27/2019 by Donavan Ramirez Jr., MD at [facility] Right: Ankle ESTHELA : TRAUMA / / [...] the patient have Health Care Power of Exhaust And Muffler Fitter? No Code Status History Code Status Date [...] the patient have Health Care Power of Exhaust And Muffler Fitter? No Full Code 02/17/2019 12:06 PM 02/18/2019 1:09 PM This order reflects the patients wishes and were consensually agreed upon. Question Answer Comments Discussion of Advance Directives occurred with: Not Discussed Does the patient have a Living Will? No Does the patient have Health Care Power of Exhaust And Muffler Fitter? No Care Teams Masonry Installer Relationship Specialty Start Date End Date Buster Jessica MD [address] [place] [address] PCP - General Family Medicine 09/11/22 documented as of this encounter
--- OUTSIDE RECORDS SUMMARY | 2023-12-11 18:43 | External Medical Summary | Summary of Care ---
Author Name Unknown Organization [facility] Address [address] [place] [address] Phone [phone] Care Team Providers Care Mortician Investigator Name Role Phone Buster Jessica MD Primary Care P rovider Reason for Visit * Reason Comments Pain R LE Limited Range Of Motion R LE Muscle Weakness R LE * Evaluate & Treat - Unlimited Visits (Within 10 days (routine)) - Authorized Specialty Diagnoses / Procedures Referred By Satinder vázquez Referred To Contact Physical Therapy / Physical Medicine And Rehab Diagnoses Ambulatory dysfunction Israel Schofield MD [address] [place] [id number] Referral ID Status Reason Start Date Expiration Date Visits Requested Visits Authorized [id number] Authorized Specialty Services Required 11/03/2023 08/05/2024 [id number] Encounter Details Date Type Department Care Team (Latest Contact Info) Description 11/28/2023 10:00 AM EDT Rehab Services Physical Therapy [address] [place] [address] Valorie Valdivia, [facility] 68 [facility] [address] [place], [place] [id number] Ambulatory dysfunction*; Muscle weakness; Impaired functional mobility, [...] as of this encounter (statuses as of 11/28/2023) Medications Medication Sig Dispensed Refills Start Date [...] (pLAVix)Indications: PAD (peripheral artery disease) ([facility]),Coronary artery disease involving [place] coronary artery of [place] heart without angina pectoris TAKE ONE TABLET BY MOUTH ONCE DAILY 90 Tablet 3 03/13/2023 Active Famotidine 20 MG Oral Tablet (Pepcid) TAKE 1 TABLET BY MOUTH TWICE DAILY (MORNING AND AT BEDTIME) 180 Tablet 3 04/30/2023 Active Spironolactone 25 MG Oral Tablet (Aldactone)Indicatio ns:Coronary artery disease involving [place] coronary artery of [place] heart without angina pectoris,Heart failure, systolic, due to CAD ([facility]),Chronic ischemic heart disease,HTN, goal below 140/90 TAKE ONE TABLET BY MOUTH ONCE DAILY 90 Tablet 3 05/14/2023 Active Losartan Potassium 25 MG Oral Tablet (Cozaar)Indications: PAD (peripheral artery disease) ([facility]),Coronary artery disease involving [place] coronary artery of [place] heart without angina pectoris TAKE ONE TABLET [...] heart disease,Tobacco use disorder,Coronary artery disease involving [place] coronary artery of [place] heart without angina pectoris Inject 140 mg [...] suspected opioid overdose. Seek immediate medical attention. [email or web address] 1 Each 3 09/15/2023 Active Additional Information [...] D, by GOLD 2017 classification ([facility]) Inhale 1 Puff by mouth in the morning and 1 Puff before bedtime. 180 Each 12 10/29/2023 Active Albuterol Sulfate (2.5 MG/3ML) 0.083% Inhalation Nebulization Solution (Proventil)Indicatio ns:COPD, group D, by GOLD 2017 classification ([facility]) Inhale 1 Vial via nebulizer [...] 10/31/2023 Active predniSONE 20 MG Oral Tablet (Deltasone)Yevgeniytio ns:Acute drug-induced gout of multiple sites Take [...] Pain, Severe. 120 Tablet 0 11/14/2023 Active Qbusz-0-dcfe Ethyl Esters 1 GM Oral Capsule (Lovaza)Indications: Dyslipidemia, goal LDL below 70 Take 2 Capsules by mouth in the morning and 2 Capsules before bedtime. 120 Capsule 5 11/14/2023 Active Torsemide 100 MG Oral Tablet (Demadex)Indications :Heart failure, systolic, due to CAD ([facility]) Take 1 tablet by mouth every morning. Take an additional tablet on Sunday, Sunday and Sunday afternoon only. 150 Tablet 3 11/22/2023 Active documented as of this encounter (statuses as of 11/28/2023) Active Problems Problem Noted Date Diagnosed Date [...] fibrillation) 09/22/2021 Atherosclerotic heart diseas e of [place] coronary artery with other forms of angina [...] untreated, BMI 43.71 kg/m, NECK: 21 inches, [place] 24, sent for bipap titration study 01/11/11 case per P completed ICD-10 update of inactive term Last Assessment & Plan: Waiting for new bipap machine BMI 35-39 ISOLATED (SEE ACTUAL BMI) 01/17/2010 Overview: Per Obesity Protocol, #19 BPH without obstruction/lower urinary tract symp toms 08/19/2009 Dyslipidemia, goal LDL below 70 07/21/2009 Overview: Per Lipid Taxonomy. documented as of this encounter (statuses as of 11/28/2023) Resolved Problems Problem Noted Date Diagnosed Date [...] 11/22/2020 10/12/2023 Coronary artery disease invo lving [place] coronary artery of [place] heart without angina pectoris 07/06/2020 10/12/2023 Chronic [...] 09/23/201305/17 Claudication 05/13/2013 10/12/2023 [employer] Other*[id number] 04/23/2012 09/12/2016 Overview: Study Title: Genomic Markers for Patients with Cardiovascular Disease Project # [id number] Assembly Worker: Comfort Aviles MD [phone] Impotence of organic origin 02/16/2011 01/10/2018 Shortness [...] as of this encounter (statuses as of 11/28/2023) Immunizations Name Administration Dates Next Due COVID-19 [...] do you have serious difficulty hearing? Yes-very INUPIAT 11/03/2023 Are you blind or do you [...] as of this encounter Progress Notes * Valorie Valdivia, DIMPLE - 11/28/2023 10:02 AM EDT Outpatient Physical Therapy Daily Progress Note Physical Therapy [address] [facility] [address] Patient Name: Dago Gunter Date of : 1950 Age: [age] year old Date: 11/28/2023 Start of Care: 11/23/23 Plan of Care Expiration Date: 01/04/24 Visit Number: 3 Subjective: Patient states he has been in a lot of pain since starting PT. Pt complains of 7/10 pain to the right knee and ankle. States he can only stand and walk for short periods of time. States he has not been doing the exercises at home due to flare up with pain. States he is unsure what he will be able to do exercise gabriel today. Objective: Pt performed 25 minutes of B LE strengthening and balance training as per below exerciselog. Performed today Exercise Sets/repetitions Part of HEP Comments N Standing hip abduction: B 15x Y Y Seated marches: B 2 x 10 Y Y Toe raises seated 20x Y Y Heel Raises seated 15x N N Romberg stance: EO/EC 30sec each N N Modified tandem stance: EO, each foot ahead [id number] Y N Sit to stand 5x Y N Regular stance on foam 1k10sef N N Romberg stance on foam 4m10djz N N Weight shift L/R on foam 10x N Y Standing gastroc stretch on slant board: B [id number] N N Side stepping at countertop 4x10' N Y Seated hamstring stretch: B 0h73epm N Y LAQ 2 x 10 N Y Seated hamstring curls 10x, green N Y Seated hip abd 2 x 10, green N N Stationary bicycling N Treatment completed under the direct supervision of Marleni Quarles PT. Assessment: Patient returns to PT with increased right knee and ankle pain. Pt has had increased pain since starting PT. Pt is ambulating with antalgic gait pattern and limp. Pt deferred standing exercises today as they have been causing increased pain. Pt has decreased strength of the R LE that can contribute to pain and difficulties with activities. Pts program consisted of seated exercises to increase strength of the R>L LE. Pt did have increased pain with exercises today but was able to complete the exercise program. Pt required rest breaks due to fatigue. Pt did not feel any difference at the end of treatment. Pt will benefit from continued skilled PT to increase strength and mobility to improve function. Plan: Continue with B LE strengthening and balance training as tolerated. UNTIMED SERVICES: 0 MINUTES TIMED SERVICES: 25 MINUTES TOTAL TIMES: 25 MINUTES Valorie Valdivia PTA 11/28/2023 10:03 AM documented in this encounter Plan of Treatment Upcoming Encounters Date Type Department Care Team ([facility] st Contact Info) Description 12/03/2023 10:00 AM EDT Rehab Services Physical Therapy [facility] 68 [facility] [address] [place] [phone] Marleni Quarles, PT [address] [place] [address] 12/05/2023 10:00 AM EDT Rehab Services Physical Therapy [facility] 68 [facility] [address] [place] [phone] Valroie Valdivia, CRIMINAL ANALYST [address] [phone] 12/10/2023 9:15 AM EDT Hospital Encounter [facility], Operating Room [facility] [address] [place] [phone] Freeman Beaulieu, DO [address] [place] [phone] 12/10/2023 9:15 AM EDT - 12/10/2023 9:40 AM EDT Surgery [facility], Operating Room [facility] [address] [place] [phone] Freeman Beaulieu, DO [address] [place] [phone] INJECTION SACROILIAC JOINT 12/12/2023 9:00 AM EDT Home Visit [facility] [place] [address] [place] [address] Xochitl Marina, AUTO LOCATOR [address] [place] [address] 12/13/2023 9:50 AM EDT Office Visit Family [facility] [address] [place] [phone] Buster Jessica MD [address] [place] [address] 12/20/2023 1:30 PM EDT Telemedicine [facility] [address] [place] [address] Grisel Richter CRNP [address] [place] [address] Clary Eastman, [facility] Financial Report Service Sales Agent [address] [place] [address] 01/01/2024 10:00 AM EDT Home Visit [facility], [facility] [address] [place] [address] Lisa Tenorio RN [address] [place] [address] 01/15/2024 10:40 AM EDT Office Visit [facility] 132 [place] [phone] Clair Quarles DO 132 [place] [address] 04/22/2024 9:30 AM EDT Cardiac Studies Cardiology, [facility] [address] [facility] 132 [facility] [place] [address] 05/19/2024 9:30 AM EDT Appointment Radiology, [place] [address] [place] [phone] Scheduled Procedures Name Priority Associated Diagnoses Date/Ti me INJECTION SACROILIAC JOINT Inflammation of sacroiliac joint (HCC) 12/10/2023 9:15 AM EDT COLONOSCOPY FLEXIBLE PROXIMAL DIAGNOSTIC Recall History of colon polyps Health Maintenance Due Date Last Done Comments *ADVANCE DIRECTIVE NOT ON FILE 05/28/2019 COVID-19 [...] ASSESSMENT COMPLETED IN PAST YEAR FOR COPD 11/20/2024 11/21/2023 Albumin/Creatinine Ratio 06/06/2026 06/06/2023 COLONOSCOPY-EVERY 5 YRS AGES 18-100 10/28/2027 10/27/2022, 04/21/2014, 04/21/2014, Additional history exists DTaP,Tdap,and Td Vaccines (3 - Td or Tdap) 04/13/2030 04/13/2020 (Declined), 08/19/2009 Alpha-1 Antitrypsin Completed 02/19/2020 Pneumococcal Vaccine: 65+ Years Completed 05/27/2020, 12/02/2018, 09/10/2008 Lung Cancer Screening Completed 08/22/2022 , 05/22/2022, 02/21/2021, Additional history exists GARDASIL-HPV IMMUNIZATION SERIES Aged Out No longer eligible based on patient's age to complete this topic Hepatitis B Aged Out No longer eligi ble based on patient's age to complete this topic MENINGOCOCCAL (MENACTRA/MENVEO) Aged Out No longer eligible based on patient's age to complete this topic Zoster Vaccines Discontinued documented as of this encounter Medical Devices Implanted Type Area Road Roller Operator Hot Mix Device Identifier Shelf Expiration Date Model / Serial / Lot 32mm X 109mm, Zenith Fenestrated Aaa Endovascular Proximal Body Graft, Two Proximal Internal Stent Implanted:Qty: 1 on 04/15/2018 by Evens Hoyt MD at OR [facility] N/A: Aorta [employer] 03/20/2021 ZFEN-P-2- [id number] / / [id number] Stent Graft [id number] - [id number] - [id number] Implanted:Qty: 1 on 04/15/2018 by Evens Hoyt MD at OR [facility] Right: Renal Artery GETINGE : MAQUET 11/30/2020 [id number] / [id number] / [id number] Stent Graft [id number] - [id number] - [id number] Implanted:Qty: 1 on 04/15/2018 by Evens Hoyt MD at OR [facility] Right: Renal Artery GETINGE : MAQUET 11/30/2020 [id number] / [id number] / [id number] 28mm X 76mm Distal, 12mm Ipsilateral Leg, Zenith Fenestrated Aaa Endovascular Distal Bifurcated Body Graft Implanted:Qty: 1 on 04/15/2018 by Evens Hoyt MD at OR [facility] N/A: Aorta [employer] 03/20/2021 [id number]-D-12 -28-76-C / / [id number] Graft Iliac Leg Spirlz [id number] - [id number] Implanted:Qty: 1 on 04/15/2018 by Evens Hoyt MD at OR [facility] Left: Iliac [employer] 09/14/2020 [id number] / / [id number] Graft Iliac Leg Spirlz [id number] - [id number] Implanted:Qty: 1 on 04/15/2018 by Evens Hoyt MD at OR [facility] Right: Iliac [employer] 11/09/2020 [id number] / / [id number] Transfixation Pin 6mm 294.950 - [id number] Implanted:Qty: 1 on 11/14/2019 by Mayank Friedman MD at OR [facility] Right: Ankle SYNTHES 294.950 / / Description:transfixation pi n Screw Schanz [id number] - [id number] Implanted:Qty: 2 on 11/14/2019 by Mayank Friedman MD at OR [facility] Right: Leg Lower SYNTHES 294.786SH A / / Description:self drilling sh antz screws 5.0mm x 200mm [place] Trauma 2.7 Lock Screw 16mm Implanted:Qty: 2 on 11/27/2019 by Donavan Ramirez Jr., MD at OR [facility] Right: Ankle ESTHELA : TRAUMA [id number] / / Description:hardware set [place] Trauma 2.7 Lock Screw 14mm Implanted:Qty: 1 on 11/27/2019 by Donavan Ramirez Jr., MD at OR [facility] Right: Ankle ESTHELA : TRAUMA [id number] / / [place] Trauma 3.5 Screw 14mm Implanted:Qty: 1 on 11/27/2019 by Donavan Ramirez Jr., MD at OR [facility] Right: Ankle ESTHELA : TRAUMA [id number] / / Description:hardware set [place] Trauma 3.5 Screw 18mm Implanted:Qty: 1 on 11/27/2019 by Donavan Ramirez Jr., MD at OR [facility] Right: Ankle ESTHELA : TRAUMA [id number] / / Description:hardware set [place] 3.5 Lockscrew 16mm Implanted:Qty: 1 on 11/27/2019 by Donavan Ramirez Jr., MD at OR [facility] Right: Ankle [id number] / / [place]hel[place] 2.0 Plate Implanted:Qty: 1 on 11/27/2019 by Donavan Ramirez Jr., MD at OR [facility] Right: Ankle [id number] / / [place] 2.0 Lock Screw Implanted:Qty: 2 on 11/27/2019 by Donavan Ramirez Jr., MD at OR [facility] Right: Ankle [id number] / / [place] 2.0 Lock Screw Implanted:Qty: 1 on 11/27/2019 by Donavan Ramirez Jr., MD at OR [facility] Right: Ankle [id number] / / [place] 2.0 Lock Screw Implanted:Qty: 1 on 11/27/2019 by Donavan Ramirez Jr., MD at OR [facility] Right: Ankle [id number] / / Plate [facility] [id number] - [id number] Implanted:Qty: 1 on 11/27/2019 by Donavan Ramirez Jr., MD at [facility] Right: Ankle ESTHELA : TRAUMA [id number] / / Description:hardware set documented as of [...] the patient have Health Care Power of Splitting Machine Feeder? No Code Status History Code Status Date [...] the patient have Health Care Power of Splitting Machine Feeder? No Full Code 02/17/2019 12:06 PM 02/18/2019 1:09 PM This order reflects the patients wishes and were consensually agreed upon. Question Answer Comments Discussion of Advance Directives occurred with: Not Discussed Does the patient have a Living Will? No Does the patient have Health Care Power of Splitting Machine Feeder? No Care Teams Mortician Investigator Relationship Specialty Start Date End Date Buster Jessica MD [address] [place] [address] PCP - General Family Medicine 09/11/22 documented as of this encounter
--- OUTSIDE RECORDS SUMMARY | 2023-12-11 18:43 | External Medical Summary | Summary of Care ---
Author Name Unknown Organization [facility] Address [address] [place] [address] Phone [phone] Care Team Providers Care Steam Generating Powerplant Mechanic Name Role Phone Buster Jessica MD Primary Care P [facility] Reason for Visit * Reason Onset Date Comments [facility]: Maintenance 12/03/2023 Encounter Details Date Type Department Care Team (Late st Contact Info) Description 12/03/2023 Telephone [facility], [facility] [address] [place], [place] [id number] [facility] [address] [place] [address] [facility]: Maintenance Allergies [...] (peripheral artery disease) (HCC),Coronary artery disease involving tulalip coronary artery of tulalip heart without angina pectoris TAKE ONE TABLET BY MOUTH ONCE DAILY 90 Tablet 3 03/13/2023 Active Famotidine 20 MG Oral Tablet (Pepcid) TAKE 1 TABLET BY MOUTH TWICE DAILY (MORNING AND AT BEDTIME) 180 Tablet 3 04/30/2023 Active Spironolactone 25 MG Oral Tablet (Aldactone)Indicatio ns:Coronary artery disease involving tulalip coronary artery of tulalip heart without angina pectoris,Heart failure, systolic, due to CAD ([facility]),Chronic ischemic heart disease,HTN, goal below 140/90 TAKE ONE TABLET BY MOUTH ONCE DAILY 90 Tablet 3 05/14/2023 Active Losartan Potassium 25 MG Oral Tablet (Cozaar)Indications: PAD (peripheral artery disease) ([facility]),Coronary artery disease involving tulalip coronary artery of tulalip heart without angina pectoris TAKE ONE TABLET [...] heart disease,Tobacco use disorder,Coronary artery disease involving tulalip coronary artery of tulalip heart without angina pectoris Inject 140 mg [...] suspected opioid overdose. Seek immediate medical attention. [email or web address] 1 Each 3 09/15/2023 Active Additional Information [...] PD, group D, by GOLD 2017 classification ([facility]) Inhale 1 Puff by mouth in the morning and 1 Puff before bedtime. 180 Each 12 10/29/2023 Active Albuterol Sulfate (2.5 MG/3ML) 0.083% Inhalation Nebulization Solution (Proventil)Indicatio ns:COPD, group D, by GOLD 2017 classification ([facility]) Inhale 1 Vial via nebulizer every [...] Pain, Severe. 120 Tablet 0 11/14/2023 Active Mckkn-9-oxdj Ethyl Esters 1 GM Oral Capsule (Lovaza)Indications: [...] fibrillation) 09/22/2021 Atherosclerotic heart diseas e of tulalip coronary artery with other forms of angina [...] untreated, BMI 43.71 kg/m, NECK: 21 inches, [place] 6/24, sent for bipap titration study 01/11/11 [...] 11/22/2020 10/12/2023 Coronary artery disease invo lving tulalip coronary artery of tulalip heart without angina pectoris 07/06/2020 10/12/2023 Chronic [...] 09/23/201305/17 Claudication 05/13/2013 10/12/2023 [employer] Other*[id number] 04/23/2012 09/12/2016 Overview: Study Title: Genomic Markers for Patients with Cardiovascular Disease Project # [id number] Rn Cardiac: Comfort Aviles MD [phone] Impotence of organic origin 02/16/2011 01/10/2018 Shortness [...] do you have serious difficulty hearing? Yes-very CHILKAT 11/03/2023 Are you blind or do you [...] Miscellaneous Notes * Telephone Encounter - Miryam Patel RN - 12/03/2023 7:31 AM EDT [facility] ED [facility] Notification Date: 12/03/2023 Time: 7:31 AM [facility] Subprogram: Focused Care Management (3-9 months) [facility] Episode Start Date: No linked episodes [facility] Enrollment Status: Currently Enrolled Action Taken on [employer] Alert and Outcome of ED Visit: Review ONLY: Phone Call Follow Up ONLY Scheduled Miryam Patel RN documented in this encounter Plan of Treatment Upcoming Encounters Date Type Department Care Team ([facility] st Contact Info) Description 12/03/2023 10:00 AM EDT Rehab Services Physical Therapy [address] [place] [address] Marleni Quarles, PT [address] [facility] [place] [address] 12/03/2023 1:00 PM EDT Scheduled Telephone [facility], [address] [place] [address] Coordinator, [facility] [address] [place] [address] 12/05/2023 10:00 AM EDT Rehab Services Physical Therapy [facility] [address] [facility] [address] [place] [address] Valorie Valdivia, [address] [place] [address] 12/10/2023 9:15 AM EDT Hospital Encounter [facility], Operating Room [facility] [address] [place] [phone] Freeman Beaulieu, DO [address] [place] [phone] 12/10/2023 9:15 AM EDT - 12/10/2023 9:40 AM EDT Surgery OR [facility], Operating Room [facility] [address] [place] [phone] Freeman Beaulieu, DO [address] [place] [phone] INJECTION SACROILIAC JOINT 12/12/2023 12:15 PM EDT Home Visit [facility], [facility] [address] [place] [address] Xochitl Marina, [facility] [address] [facility] [address] 12/13/2023 9:50 AM EDT Office Visit Family [facility] [address] [facility] [place] [phone] Buster Jessica MD [address] [place] [address] [place] [address] 12/20/2023 1:30 PM EDT Telemedicine [facility], [facility] [address] [place] [address] Grisel Richter CRNP [address] [place] [address] Clary Eastman, Community [facility]uer [address] [place] [address] 01/01/2024 10:00 AM EDT Home Visit [facility], [facility] [address] [place] [address] Lisa Tenorio RN [address] [place] [address] 01/15/2024 10:40 AM EDT Office Visit Sleep Disorders Ctr [facility] [address] [place] [phone] Clair Quarles DO [address] [place] [address] 04/22/2024 9:30 AM EDT Cardiac Studies Cardiology, [facility] [address] [facility] [address] [facility] [address] [place] [address] 05/19/2024 9:30 AM EDT Appointment Radiology, [place] [address] [place] [address] Scheduled Procedures Name Priority Associated [...] 10/08/2020 DISCUSS TOBACCO CESSATION (REFER TO SMARTSET #[id number]) 06/02/2023 06/02/2022, 07/21/2020 Depression, Most Recent Score [...] this encounter Medical Devices Implanted Type Area Admissions Director Device Identifier Shelf Expiration Date Model / Serial / Lot 32mm X 109mm, Zenith Fenestrated Aaa Endovascular Proximal Body Graft, Two Proximal Internal Stent Implanted:Qty: 1 on 04/15/2018 by Evens Hoyt MD [place] [facility] [place]A: Aorta [employer] 03/20/2021 ZFEN-P-2- [id number] / / [id number] Stent Graft [id number] - [id number] - [id number] Implanted:Qty: 1 on 04/15/2018 by Evens Hoyt MD [place] [facility] Right: Renal Artery [employer]INGE : MAQUET 11/30/2020 [id number] / [id number] / [id number] Stent Graft [id number] - [id number] - [id number] Implanted:Qty: 1 on 04/15/2018 by Evens Hoyt MD at [place] [facility] Right: Renal Artery [employer]E : MAQUET 11/30/2020 [id number] / [id number] / [id number] 28mm X 76mm Distal, 12mm Ipsilateral Leg, Zenith Fenestrated Aaa Endovascular Distal Bifurcated Body Graft Implanted:Qty: 1 on 04/15/2018 by Evens Hoyt MD at [place] [facility] [place]/A: Aorta [employer] 03/20/2021 ZFEN-D-12 -28-76-C / / [id number] Graft Iliac Leg Spirlz 55u10fy - [id number] Implanted:Qty: 1 on 04/15/2018 by Evens Hoyt MD at [place] [facility] Left: Iliac [employer] 09/14/2020 [id number] / / [id number] Graft Iliac Leg Spirlz 35o28md - [id number] Implanted:Qty: 1 on 04/15/2018 by Evens Hoyt MD at [place] [facility] Right: Iliac [employer] 11/09/2020 [id number] / / [id number] Transfixation Pin 6mm 294.950 - [id number] Implanted:Qty: 1 on 11/14/2019 by Mayank Friedman MD at OR [facility] Right: Ankle SYNTHES 294.950 / / Description:transfixation pi n Screw Schanz 5.0cas860fr - [id number] Implanted:Qty: 2 on 11/14/2019 by Mayank Friedman MD at OR [facility] Right: Leg Lower SYNTHES 294.786SH A / / Description:self drilling sh antz screws 5.0mm x 200mm Esthela Trauma 2.7 Lock Screw 16mm Implanted:Qty: 2 on 11/27/2019 by Donavan Ramirez Jr., MD at [place] [facility] [place]: Ankle ESTHELA : TRAUMA [id number] / / Description:hardware set Saline Trauma 2.7 Lock Screw 14mm Implanted:Qty: 1 on 11/27/2019 by Donavan Ramirez Jr., MD at [place] [facility] [place]: Ankle ESTHELA : TRAUMA [id number] / / Esthela Trauma 3.5 Screw 14mm Implanted:Qty: 1 on 11/27/2019 by Donavan Ramirez Jr., MD at [place] [facility] [place]: Ankle ESTHELA : TRAUMA [id number] / / Description:hardware set Esthela Trauma 3.5 Screw 18mm Implanted:Qty: 1 on 11/27/2019 by Donavan Ramirez Jr., MD at [place] [facility] [place]: Ankle ESTHELA : TRAUMA [id number] / / Description:hardware set Saline 3.5 Lockscrew 16mm Implanted:Qty: 1 on 11/27/2019 by Donavan Ramirez Jr., MD at [place] [facility] [place]: Ankle [id number] / / Esthela 2.0 Plate Implanted:Qty: 1 on 11/27/2019 by Donavan Ramirez Jr., MD at [place] [facility] [place]: Ankle [id number] / / Esthela 2.0 Lock Screw Implanted:Qty: 2 on 11/27/2019 by Donavan Ramirez Jr., MD at [place] [facility] [place]: Ankle [id number] / / Esthela 2.0 Lock Screw Implanted:Qty: 1 on 11/27/2019 by Donavan Ramirez Jr., MD at [facility] Right: Ankle [id number] / / Saline 2.0 Lock Screw Implanted:Qty: 1 on 11/27/2019 by Donavan Ramirez Jr., MD at [place] [facility] [place]: Ankle [id number] / / Plate Fib - [id number] Implanted:Qty: 1 on 11/27/2019 by James Espino, Donavan Carlin MD [place] [facility] [place]: Ankle ESTHELA : TRAUMA [...] the patient have Health Care Power of Engine Lathe Operator? No Code Status History Code Status [...] the patient have Health Care Power of Engine Lathe Operator? No Full Code 02/17/2019 12:06 PM 02/18/2019 1:09 PM This order reflects the patients wishes and were consensually agreed upon. Question Answer Comments Discussion of Advance Directives occurred with: Not Discussed Does the patient have a Living Will? No Does the patient have Health Care Power of Engine Lathe Operator? No Care Teams Steam Generating Powerplant Mechanic Relationship Specialty Start Date End Date Buster Jessica MD [address] [place] [address] PCP - General Family Medicine 09/11/22 documented as of this encounter
--- OUTSIDE RECORDS SUMMARY | 2023-12-11 18:43 | External Medical Summary | Summary of Care ---
Author Name Unknown Organization [facility] Address [address] [place] [address] Phone [phone] Care Team Providers Care Internet Webmaster Name Role Phone Buster Jessica MD [facility] Reason for Visit * Reason Comments Pain R ankle Muscle Weakness LEs Abnormal Gait * Evaluate & Treat - Unlimited Visits (Within 10 days (routine)) - Pending Review Specialty Diagnoses / Procedures Referred By Satinder vázquez Referred To Contact Physical Therapy / Physical Medicine And Rehab Diagnoses Ambulatory dysfunction Israel Schofield MD [address] [place] [id number] Referral ID Status Reason Start Date Expiration Date Visits Requested Visits Authorized [id number] Pending Review Specialty Services Required 11/03/2023 08/05/[phone] Encounter Details Date Type Department Care Team (Latest Contact Info) Description 11/26/2023 10:00 AM EDT Rehab Services Physical Therapy [address] [place] [address] Marleni Quarles, PT [address] [place] [address] Ambulatory dysfunction*; Muscle weakness; Impaired functional mobility, [...] as of this encounter (statuses as of 11/26/2023) Medications Medication Sig Dispensed Refills Start Date End Date Status Vitamin C 1000 MG Oral Tablet Take 1 Tablet by mouth in the morning. 0 Active Metoprolol Succinate ER 100 MG Oral Tablet Extended Release 24 Hour (toPROL XL) TAKE ONE TABLET BY MOUTH ONCE DAILY 90 Tablet 3 03/08/2023 Active Clopidogrel Bisulfate 75 MG Oral Tablet (pLAVix)Indications: PAD (peripheral artery disease) ([facility]),Coronary artery disease involving hoopa coronary artery of hoopa heart without angina pectoris TAKE ONE TABLET BY MOUTH ONCE DAILY 90 Tablet 3 03/13/2023 Active Famotidine 20 MG Oral Tablet (Pepcid) TAKE 1 TABLET BY MOUTH TWICE DAILY (MORNING AND AT BEDTIME) 180 Tablet 3 04/30/2023 Active Spironolactone 25 MG Oral Tablet (Aldactone)Indicatio ns:Coronary artery disease involving hoopa coronary artery of hoopa heart without angina pectoris,Heart failure, systolic, due to CAD ([facility]),Chronic ischemic heart disease,HTN, goal below 140/90 TAKE ONE TABLET BY MOUTH ONCE DAILY 90 Tablet 3 05/14/2023 Active Losartan Potassium 25 MG Oral Tablet (Cozaar)Indications: PAD (peripheral artery disease) ([facility]),Coronary artery disease involving hoopa coronary artery of 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 Seek immediate medical attention. [email or web address] 1 Each 3 09/15/2023 Active Additional Information [...] PD, group D, by GOLD 2017 classification ([facility]) Inhale 1 Puff by mouth in the morning and 1 Puff before bedtime. 180 Each 12 10/29/2023 Active Albuterol Sulfate (2.5 MG/3ML) 0.083% Inhalation Nebulization Solution (Proventil)Indicatio ns:COPD, group D, by GOLD 2017 classification ([facility]) Inhale 1 Vial via nebulizer every 4 [...] Pain, Severe. 120 Tablet 0 11/14/2023 Active Thwni-3-vale Ethyl Esters 1 GM Oral Capsule (Lovaza)Indications: Dyslipidemia, goal LDL below 70 Take 2 Capsules by mouth in the morning and 2 Capsules before bedtime. 120 Capsule 5 11/14/2023 Active Torsemide 100 MG Oral Tablet (Demadex)Indications :Heart failure, systolic, due to CAD ([facility]) Take 1 tablet by mouth every morning. Take an additional tablet on Sunday, Sunday and Sunday afternoon only. 150 Tablet 3 11/22/2023 Active documented as of this encounter (statuses as of 11/26/2023) Active Problems Problem Noted Date Diagnosed Date [...] fibrillation) 09/22/2021 Atherosclerotic heart diseas e of hoopa coronary artery with other forms of angina [...] untreated, BMI 43.71 kg/m, NECK: 21 inches, [place] 624, sent for bipap titration study 01/11/11 case per [facility] completed ICD-10 update of inactive term Last Assessment & Plan: Waiting for new bipap machine BMI 35-39 ISOLATED (SEE ACTUAL BMI) 01/17/2010 Overview: Per Obesity Protocol, #19 BPH without obstruction/lower urinary tract symp toms 08/19/2009 Dyslipidemia, goal LDL below 70 07/21/2009 Overview: Per Lipid Taxonomy. documented as of this encounter (statuses as of 11/26/2023) Resolved Problems Problem Noted Date Diagnosed Date [...] 11/22/2020 10/12/2023 Coronary artery disease invo lving hoopa coronary artery of hoopa heart without angina pectoris 07/06/2020 10/12/2023 Chronic [...] 09/23/201305/17 Claudication 05/13/2013 10/12/2023 [employer] Other*[id number] 04/23/2012 09/12/2016 Overview: Study Title: Genomic Markers for Patients with Cardiovascular Disease Project # [id number] Credit Union Teller: Comfort Aviles MD [phone] Impotence of organic origin 02/16/2011 01/10/2018 Shortness [...] as of this encounter (statuses as of 11/26/2023) Immunizations Name Administration Dates Next Due COVID-19 [...] do you have serious difficulty hearing? Yes-very [place] 11/03/2023 Are you blind or do you [...] Progress Notes * Marleni Quarles, PT - 11/26/2023 10:01 AM EDT Outpatient Physical Therapy Daily Progress Note Physical Therapy [address] [place] [phone] Patient Name: Dago Gunter Date of : 1950 Age: [age] year old Date: 11/26/2023 Start of Care: 11/23/23 Plan of Care Expiration Date: 01/04/24 Visit Number: 2 Subjective: Patient reports that he has had exacerbation of R ankle since beginning exercise program, rated at 7/10 this morning. He had increased pain all weekend and wasn't able to leave the house on Sunday. He is limping upon arrival to PT today. Objective: Pt performed 34 minutes of B LE strengthening and balance training as per below exerciselog. Added Romberg stance on foam, weight shifting on foam, side stepping, and hamstring and gastroc stretching. Performed today Exercise Sets/repetitions Part of HEP Comments Y Standing hip abduction: B 15x Y Y Standing marches: B 15x Y N Toe raises 20x Y N Romberg stance: EO/EC 30sec each N N Modified tandem stance: EO, each foot ahead [id number] Y Y Sit to stand 5x Y Y Regular stance on foam 1y10cal N Y Romberg stance on foam [id number] N Y Weight shift L/R on foam 10x N Y Standing gastroc stretch on slant board: B 1h09jtr N Y Side stepping at countertop 4x10' N Y Seated hamstring stretch: B [id number] N N Stationary bicycling Assessment: Pt was able to perform most exercises today, including progression to standing on foam balance pad. He c/o moderate pain of R ankle during exercise performance but did not limit him from functioning. He continued to have antalgic gait pattern at end of treatment. Stationary bicycling was not yet started because of increased pain. Plan: Continue with B LE strengthening and balance training as tolerated. UNTIMED SERVICES: 0 MINUTES TIMED SERVICES: 34 MINUTES TOTAL TIMES: 34 MINUTES Marleni Quarles, PT 11/26/2023 10:01 AM documented in this encounter Plan of Treatment Upcoming Encounters Date Type Department Care Team ([facility] st Contact Info) Description 11/28/2023 10:00 AM EDT Rehab Services Physical Therapy [address] [place] [phone] Valorie Valdivia, [address] [place] [address] 11/28/2023 10:15 AM EDT Scheduled Telephone [facility], [address] [place] [address] Coordinator, [facility] [address] [facility] [address] 12/03/2023 10:00 AM EDT Rehab Services Physical Therapy [facility] [address] [facility] [address] [place] [phone] Marleni Quarles, PT [address] [place] [address] 12/05/2023 10:00 AM EDT Rehab Services Physical Therapy [facility] [address] [facility] [address] [place] [phone] Valorie Valdivia, PSYCH TECH [address] [facility] [address] [place] [address] 12/10/2023 9:15 AM EDT Hospital Encounter [facility], Operating Room [facility] [address] [place] [address] Freeman Beaulieu, [address] [place] [address] 12/10/2023 9:15 AM EDT - 12/10/2023 9:40 AM EDT Surgery OR [facility], Operating Room [facility] [address] [place] [address] Freeman Beaulieu, DO [address] [place] [address] INJECTION SACROILIAC JOINT 12/12/2023 9:00 AM EDT Home Visit [facility], [facility] [address] [place] [address] Xochitl Marina, NURSE LEADER [address] [address] 12/13/2023 9:50 AM EDT Office Visit Family [facility] [address] [place] [address] Buster Jessica MD [address] [place] [address] 12/20/2023 1:30 PM EDT Telemedicine [facility], [facility] [address] [place] [address] Grisel Richter CRNP [address] [place] [address] Clary Eastman, [facility] Crate Opener [address] [place] [address] 01/01/2024 10:00 AM EDT Home Visit [facility], [facility] [address] [place] [address] Lisa Tenorio RN [address] [place] [address] 01/15/2024 10:40 AM EDT Office Visit [facility] [address] [facility] [place] [address] Clair Quarles DO [address] [place] [address] 04/22/2024 9:30 AM EDT Cardiac Studies Cardiology, [facility] [address] [facility] [place] [address] [facility] [address] [facility] [place] [address] 05/19/2024 9:30 AM EDT Appointment Radiology, [facility] [address] [address] Scheduled Procedures Name Priority Associated [...] this encounter Medical Devices Implanted Type Area Volumetric Weigher Device Identifier Shelf Expiration Date Model / Serial / Lot 32mm X 109mm, Zenith Fenestrated Aaa Endovascular Proximal Body Graft, Two Proximal Internal Stent Implanted:Qty: 1 on 04/15/2018 by Evens Hoyt MD at OR [facility] N/A: Aorta [employer] 03/20/2021 ZFEN-P-2- 32-109-R / / [id number] Stent Graft [id number] - [id number] - [id number] Implanted:Qty: 1 on 04/15/2018 by Evens Hoyt MD at OR [facility] Right: Renal Artery GETINGE : MAQUET 11/30/2020 [id number] / [id number] / [id number] Stent Graft [id number] - [id number] - [id number] Implanted:Qty: 1 on 04/15/2018 by Evens Hoyt MD at OR [facility] Right: Renal Artery GETINGE : MAQUET 11/30/2020 30789 / [id number] / [id number] 28mm X 76mm Distal, 12mm Ipsilateral Leg, Zenith Fenestrated Aaa Endovascular Distal Bifurcated Body Graft Implanted:Qty: 1 on 04/15/2018 by Evens Hoyt MD at OR [facility] N/A: Aorta [employer] 03/20/2021 ZFEN-D-12 -28-76-C / / [id number] Graft Iliac Leg Spirlz [id number] - [id number] Implanted:Qty: 1 on 04/15/2018 by Evens Hoyt MD at OR [facility] Left: Iliac [employer] 09/14/2020 [id number] / / [id number] Graft Iliac Leg Spirlz 56z90yf - [id number] Implanted:Qty: 1 on 04/15/2018 by Evesn Hoyt MD at OR [facility] Right: Iliac [employer] 11/09/2020 [id number] / / [id number] Transfixation Pin 6mm 294.950 - [id number] Implanted:Qty: 1 on 11/14/2019 by Mayank Friedman MD at OR [facility] Right: Ankle SYNTHES 294.950 / / Description:transfixation pi n Screw Schanz 5.2wir744ov - [id number] Implanted:Qty: 2 on 11/14/2019 by Mayank Friedman MD at OR [facility] Right: Leg Lower SYNTHES 294.786SH A / / Description:self drilling sh antz screws 5.0mm x 200mm [place]ajo Trauma 2.7 Lock Screw 16mm Implanted:Qty: 2 on 11/27/2019 by Donavan Ramirez Jr., MD at OR [facility] Right: Ankle ESTHELA : TRAUMA [id number] / / Description:hardware set Esthela Trauma 2.7 Lock Screw 14mm Implanted:Qty: 1 on 11/27/2019 by Donavan Ramirez Jr., MD at OR [facility] Right: Ankle ESTHELA : TRAUMA [id number] / / Navajo Trauma 3.5 Screw 14mm Implanted:Qty: 1 on 11/27/2019 by Donavan Ramirez Jr., MD at OR [facility] Right: Ankle ESTHELA : TRAUMA [id number] / / Description:hardware set Esthela Trauma 3.5 Screw 18mm Implanted:Qty: 1 on 11/27/2019 by Donavan Ramirez Jr., MD at OR [facility] Right: Ankle ESTHELA : TRAUMA [id number] / / Description:hardware set Navajo 3.5 Lockscrew 16mm Implanted:Qty: 1 on 11/27/2019 by Donavan Ramirez Jr., MD at OR [facility] Right: Ankle [id number] / / Navajo 2.0 Plate Implanted:Qty: 1 on 11/27/2019 by Donavan Ramirez Jr., MD at OR [facility] Right: Ankle [id number] / / Esthela 2.0 Lock Screw Implanted:Qty: 2 on 11/27/2019 by Donavan Ramirez Jr., MD at OR [facility] Right: Ankle [id number] / / Esthela 2.0 Lock Screw Implanted:Qty: 1 on 11/27/2019 by Donavan Ramirez Jr., MD at OR [facility] Right: Ankle [id number] / / Navajo 2.0 Lock Screw Implanted:Qty: 1 on 11/27/2019 by Donavan Ramirez Jr., MD at OR [facility] Right: Ankle [id number] / / Plate Fib - [id number] Implanted:Qty: 1 on 11/27/2019 by James Espino, Donavan Carlin MD at OR [facility] Right: Ankle ETSHELA : TRAUMA / / Description:hardware set documented [...] the patient have Health Care Power of Emergency Medicine Physician? No Code Status History Code Status Date [...] the patient have Health Care Power of Emergency Medicine Physician? No Full Code 02/17/2019 12:06 PM 02/18/2019 1:09 PM This order reflects the patients wishes and were consensually agreed upon. Question Answer Comments Discussion of Advance Directives occurred with: Not Discussed Does the patient have a Living Will? No Does the patient have Health Care Power of Emergency Medicine Physician? No Care Teams Internet Webmaster Relationship Specialty Start Date End Date Buster Jessica MD [address] [place] [phone] PCP - General Family Medicine 09/11/22 documented as of this encounter
--- OUTSIDE RECORDS SUMMARY | 2023-12-11 18:43 | External Medical Summary | Summary of Care ---
Author Name Unknown Organization [facility] Address [address] [place] [address] Phone [phone] Care Team Providers Care Complex Director Name Role Phone Buster Jessica MD Primary Care P [facility] Reason for Visit * Reason Comments Pain Right hip and knee * Auth/Cert Specialty Diagnoses / Procedures Referred By Contac t Referred To Contact [facility] [address] [place] [address] Phone: [phone] Emergency Medicine [id number] [place] [address] Referral ID Status Reason Start Date Expiration Date Visits Re quested Visits Authorized [id number] Encounter Details Date Type Department Care Team (Late st Contact Info) Description 12/01/2023 11:04 AM EDT - 12/01/2023 12:17 PM EDT Emergency [facility] ([facility]) [facility] [place] [address] Octavio Hawthorne MD [address] [place] [address] Pain of right lower extremity (Primary Dx) Discharge Disposition: Home - Self Care Allergies Active Allergy Reactions Criticality Noted Date Comments Atorvastatin Muscle pain,Unknown 01/18/2015 Medication intolerance, not an allergy Sacubitril-Valsartan Other (Please comment) 09/17/2020 Throat swelled Sacubitril High 07/20/2023 Other Reaction(s): THROAT SWELLING Simvastatin Low 06/23/2022 Other reaction(s): MUSCLE ACHES Valsartan High 07/20/2023 Other Reaction(s): THROAT SWELLING documented as of this encounter (statuses as of 12/02/2023) Medications Medication Sig Dispensed Refills Start Date End Date Status Vitamin C 1000 MG Oral Tablet Take 1 Tablet by mouth in the morning. 0 Active Metoprolol Succinate ER 100 MG Oral Tablet Extended Release 24 Hour (toPROL XL) TAKE ONE TABLET BY MOUTH ONCE DAILY 90 Tablet 3 03/08/2023 Active Clopidogrel Bisulfate 75 MG Oral Tablet (pLAVix)Indications: PAD (peripheral artery disease) ([facility]),Coronary artery disease involving [place] coronary artery of [place] heart without angina pectoris TAKE ONE TABLET BY MOUTH ONCE DAILY 90 Tablet 3 03/13/2023 Active Famotidine 20 MG Oral Tablet (Pepcid) TAKE 1 TABLET BY MOUTH TWICE DAILY (MORNING AND AT BEDTIME) 180 Tablet 3 04/30/2023 Active Spironolactone 25 MG Oral Tablet (Aldactone)Indicatio ns:Coronary artery disease involving [place] coronary artery of [place] heart without angina pectoris,Heart failure, systolic, due to CAD ([facility]),Chronic ischemic heart disease,HTN, goal below 140/90 TAKE ONE TABLET BY MOUTH ONCE DAILY 90 Tablet 3 05/14/2023 Active Losartan Potassium 25 MG Oral Tablet (Cozaar)Indications: PAD (peripheral artery disease) ([facility]),Coronary artery disease involving [place] coronary artery of [place]e heart without angina pectoris TAKE ONE TABLET BY MOUTH ONCE DAILY 90 Tablet 3 06/04/2023 Active Baclofen 20 MG Oral TabletIndications:Ch ronic bilateral low back pain without sciatica Take 1 Tablet by mouth 3 times a day as needed for Muscle spasms. 90 Tablet 5 06/06/2023 Active Repatha SureClick 140 MG/ML Subcutaneous Solution Auto-injector (evolocumab)Indicati ons:Obstructive sleep apnea,Heart failure, systolic, due to CAD ([facility]),Dyslipidemia, goal LDL below 70,Chronic ischemic heart disease,Tobacco use disorder,Coronary artery disease involving mic[place]ukee coronary artery of [place]e heart without angina pectoris Inject 140 mg [...] suspected opioid overdose. Seek immediate medical attention. [email or web address]?[email or web address] 1 Each 3 09/15/2023 Active Additional Information [...] group D, by GOLD 2017 classification ([facility]) Inhale 1 Puff by mouth in the morning and 1 Puff before bedtime. 180 Each 12 10/29/2023 Active Albuterol Sulfate (2.5 MG/3ML) 0.083% Inhalation Nebulization Solution (Proventil)Indicatio ns:COPD, group D, by GOLD 2017 classification ([facility]) Inhale 1 Vial via nebulizer every 4 [...] Pain, Severe. 120 Tablet 0 11/14/2023 Active [id number] Ethyl Esters 1 GM Oral Capsule (Lovaza)Indications: [...] as of this encounter (statuses as of 12/02/2023) Active Problems Problem Noted Date Diagnosed Date [...] fibrillation) 09/22/2021 Atherosclerotic heart diseas e of miccos[place]e coronary artery with other forms of angina [...] untreated, BMI 43.71 kg/m, NECK: 21 inches, Ida 01/27, sent for bipap titration study 01/11/11 case per [facility] completed ICD-10 update of inactive term Last Assessment & Plan: Waiting for new bipap machine BMI 35-39 ISOLATED (SEE ACTUAL BMI) 01/17/2010 Overview: Per Obesity Protocol, #19 BPH without obstruction/lower urinary tract symp toms 08/19/2009 Dyslipidemia, goal LDL below 70 07/21/2009 Overview: Per Lipid Taxonomy. documented as of this encounter (statuses as of 12/02/2023) Resolved Problems Problem Noted Date Diagnosed Date [...] 11/22/2020 10/12/2023 Coronary artery disease invo lving miccosukee coronary artery of miccosukee heart without angina pectoris 07/06/2020 10/12/2023 Chronic [...] 09/23/201305/17 Claudication 05/13/2013 10/12/2023 [employer] Other*[id number] 04/23/2012 09/12/2016 Overview: Study Title: Genomic Markers for Patients with Cardiovascular Disease Project # [id number] Manager Local: Comfort Aviles MD [phone] Impotence of organic origin 02/16/2011 01/10/2018 Shortness [...] as of this encounter (statuses as of 12/02/2023) Immunizations Name Administration Dates Next Due COVID-19 [...] Sign Reading Time Taken Comments Blood Pressure 122/68 12/01/2023 12:11 PM EDT Pulse 80 12/01/2023 12:11 PM EDT Temperature - - Respiratory Rate 18 12/01/2023 12:11 PM EDT Oxygen Saturation 99% 12/01/2023 12:11 PM EDT Inhaled Oxygen Concentration - - Weight - - Height - - Body Mass Index - - documented in this encounter Functional Status Functional Status Response Date of Assess ment Are you deaf or do you have serious difficulty hearing? Yes-very [place] 11/03/2023 Are you blind or do you [...] No 11/03/2023 documented as of this encounter Discharge Instructions * Discharge Instructions* Son Desouza PA-C - 12/01/2023 11:46 AM EDT You have been seen and evaluated in the Emergency Department of [facility]. Please readthe discharge instructions below regarding your care. Summary Of Today's Visit: You were seen today for right hip/knee and ankle pain. New Prescriptions/Medication Changes: Please continue your Vicodin at home as prescribed. You may also take Tylenol 500mg every 6 hours as needed for pain. Follow Up/Continuation Of Care: Please follow up with your family doctor as needed. Other Important Information/Return Instructions: Return to the Emergency Department or seek medical attention if you notice or have worsening of anyof the following problems: severe headache , changes in your vision, feel like you may pass out, chest pain, chest pressure, chest tightness, difficulty breathing, or any worsening of your condition. Thank you for allowing us to care for you. Our goal is to provide you the best care. If you have any emergency needs in the future we will be glad to help you again. We are here to serve you! documented in this encounter ED Notes * Lisa Landa RN - 12/01/2023 11:16 AM EDT Patient reports chronic pain to right hip, knee and leg. Reports he took his prescribed pain medicine this am with no relief. Reports taking 2, 7.5mg vicodin at 0530 and 2 more at 0930. * Octavio Hawthorne MD - 12/01/2023 11:08 AM EDT HISTORY OF PRESENT ILLNESS Dago Gunter is a 73 year old male who presents to the ED for evaluation of Pain (Right hip and knee ). The patient was seen at 12/01/23 1106. Patient is a 73-year-old male with significant past medical history of CAD, atrial fibrillation, HFmrEF, cardiomyopathy, biventricular AICD in-situ, LBBB, hypertension, hyperlipidemia, thoracic aortic aneurysm, BRIAN, COPD, lumbago, osteoarthritis, gout and peripheral neuropathy. The patient presents to the ED via EMS for a chief complaint of acute on chronic right lower extremity pain. The patient reports right hip, knee and ankle pain. The patient reports he was working on renovating his house yesterday which he believes flared up his right leg. The patient denied any recent falls or trauma. The patient reports taking Vicodin prior to arrival which he reports has greatly relieved his pain from when he first noticed it this morning. The patient denied any swelling, redness, new numbness/tingling, back pain, recent illness, fever, chills or other acute distress. The patient reports he is almost finished with his steroid taper which he was prescribed for his gout flare. On chart review the patient was last admitted to [facility] on 11/02/23 due to multifocal joint pain in setting of known hx of gout, likely representing gout flare. He was started on steroids which appearedto improve his pain greatly. Workup was remarkable for increased uric acid, CRP 210, white count 16.02, which downtrended to 13.25. Pt remained afebrile during admission. Later in the day, he was considered stable for discharge to home to complete steroid taper. Review of Systems Constitutional: Negative for chills, diaphoresis, fatigue and fever. HENT: Negative for congestion. Eyes: Negative for visual disturbance. Respiratory: Negative for apnea and shortness of breath. Cardiovascular: Negative for chest pain. Gastrointestinal: Negative for abdominal pain, diarrhea, nausea and vomiting. Genitourinary: Negative for dysuria. Musculoskeletal: Negative for back pain, joint swelling, neck pain and neck stiffness. Skin: Negative for color change, pallor and rash. Neurological: Negative for headaches. Hematological: Negative for adenopathy. Psychiatric/Behavioral: Negative for agitation. The patient's allergies, past history, and medications were reviewed. PHYSICAL EXAM Initial Vitals (see all): BP 98/58 | Pulse 81 | Resp 20 | O2 96 %Weight 114.76 kg | Height 180.3 cm | BMI 35.29 kg/m2 Initial Pain Assessment (see all): 5 (moderate pain)/10, Throbbing , Stabbing , Aching, location: right hip, knee, leg ([facility] Adult Scale 0-10) Physical Exam Vitals and nursing note reviewed. Constitutional: General: He is not in acute distress. Appearance: Normal appearance. He is not ill-appearing, toxic-appearing or diaphoretic. HENT: Head: Normocephalic and atraumatic. Right Ear: External ear normal. Left Ear: External ear normal. Nose: Nose normal. Mouth/Throat: Mouth: Mucous membranes are moist. Eyes: General: Right eye: No discharge. Left eye: No discharge. Conjunctiva/sclera: Conjunctivae normal. Cardiovascular: Rate and Rhythm: Normal rate. Pulses: Normal pulses. Heart sounds: No friction rub. Pulmonary: Effort: Pulmonary effort is normal. Breath sounds: Normal breath sounds. Abdominal: General: Abdomen is flat. Palpations: Abdomen is soft. Musculoskeletal: General: Tenderness present. Cervical back: Normal range of motion and neck supple. Comments: Right lower extremity pain involving the right lateral hip, anterior knee and dorsal aspect of right ankle. No gross overlying swelling, ecchymosis, erythema, gross deformity/dislocation present. No limb length discrepancy. 2+ PT pulses, normal sensation, normal ROM. Skin: General: Skin is warm and dry. Capillary Refill: Capillary refill takes less than 2 seconds. Neurological: General: No focal deficit present. Mental Status: He is alert. Psychiatric: Mood and Affect: Mood normal. Behavior: Behavior normal. PROCEDURES AND TREATMENTS ED Orders | ED Results MEDICAL DECISION MAKING Nursing notes and vital signs were reviewed. Differential Diagnoses Based on my history, physical exam, and evaluation, the differential includes, but is not limited, to the following diagnoses: Osteoarthritis, bursitis, gout, pseudogout, general joint inflammation. Patient is a 73-year-old male with significant past medical history of CAD, atrial fibrillation, HFmrEF, cardiomyopathy, biventricular AICD in-situ, LBBB, hypertension, hyperlipidemia, thoracic aortic aneurysm, BRIAN, COPD, lumbago, osteoarthritis, gout and peripheral neuropathy. The patient presents to the ED via EMS for a chief complaint of acute on chronic right lower extremity pain. The patient reports right hip, knee and ankle pain. The patient reports he was working on renovating his house yesterday which he believes flared up his right leg. Upon exam the patient was in no acute distress and reported since taking his Vicodin at home his pain has greatly improved. There was right lower extremity pain involving the right lateral hip, anterior knee and dorsal aspect of right ankle. No gross overlying swelling, ecchymosis, erythema, gross deformity/dislocation present. No limb length discrepancy. 2+ PT pulses, normal sensation, normal ROM. In the ED the patient received IM Decadron and Toradol. The patient was instructed to continue taking his Vicodin at home as prescribed as well as finishing his prednisone taper. The patient was instructed to follow up with his family doctor and pain management as indicated. The patient was given return precautions regarding any new or worsening signs or symptoms. The patientwas agreeable to the plan and all questions were answered prior to discharge. Risk Prescription drug management. Clinical Impressions Pain of right lower extremity Disposition Discharged. The patient's condition at disposition was: stable. Octavio Hawthorne was the attending physician who supervised the care of this patient. Son Desouza PA-C ATTENDING ATTESTATION I was readily available and reviewed care of this patient. I was available for immediate imeo-ri-byal consultation and assistance. I have reviewed the care of the patient with the provider listed above. documented in this encounter Plan of Treatment Upcoming Encounters Date Type Department Care Team ([facility] Contact Info) Description 12/03/2023 10:00 AM EDT Rehab Services Physical Therapy [address] [address] Marleni Quarles, PT [address] [place] [address] 12/05/2023 10:00 AM EDT Rehab Services Physical Therapy [address] [phone] Valorie Valdivia, RESEARCH CONSULTANT [address] [place] [address] 12/10/2023 9:15 AM EDT Hospital Encounter OR [facility], Operating Room [facility] [address] [place] [id number] Freeman Beaulieu DO [address] [place] [address] 12/10/2023 9:15 AM EDT - 12/10/2023 9:40 AM EDT Surgery OR [facility], Operating Room [facility] [address] [place] [phone] Freeman Beaulieu, DO [address] [place] [phone] INJECTION SACROILIAC JOINT 12/12/2023 12:15 PM EDT Home Visit [facility], [facility] [address] [place] [address] Xochitl Marina, CLINICAL PHARMACY TECHNICIAN [address] [place] [address] 12/13/2023 9:50 AM EDT Office Visit [address] [phone] Buster Jessica MD [address] [place] [address] 12/20/2023 1:30 PM EDT Telemedicine [facility], [facility] [address] [place] [address] Grisel Richter CRNP [address] [place] [address] Clary Eastman, Community Health Agricultural Research Technician [address] [place] [address] 01/01/2024 10:00 AM EDT Home Visit [facility], [facility] [address] [place] [address] Lisa Tenorio, RN [address] [place] [address] 01/15/2024 10:40 AM EDT Office Visit [facility] [address] [facility] [place] [phone] Clair Quarles, DO [address] [place] [address] 04/22/2024 9:30 AM EDT Cardiac Studies Cardiology, [facility] [address] [place] [address] [place], [facility] [address] [place] [address] 05/19/2024 9:30 AM EDT Appointment Radiology, [id number] [place] [address] Scheduled Procedures Name Priority Associated [...] this encounter Medical Devices Implanted Type Area Vegetable Scullion Device Identifier Shelf Expiration Date Model / Serial / Lot 32mm X 109mm, Zenith Fenestrated Aaa Endovascular Proximal Body Graft, Two Proximal Internal Stent Implanted:Qty: 1 on 04/15/2018 by Evens Hoyt MD at OR [facility] N/A: Aorta [employer] 03/20/2021 ZFEN-P-2- [id number] / / [id number] Stent Graft [id number] - [id number] - [id number] Implanted:Qty: 1 on 04/15/2018 by Evens Hoyt MD at OR [facility] Right: Renal Artery GETINGE : MAQUET 11/30/2020 22457 / [id number] / [id number] Stent Graft [id number] - [id number] - [id number] Implanted:Qty: 1 on 04/15/2018 by Evens Hoyt MD at OR [facility] Right: Renal Artery GETINGE : MAQUET 11/30/2020 56838 / [id number] / [id number] 28mm X 76mm Distal, 12mm Ipsilateral Leg, Zenith Fenestrated Aaa Endovascular Distal Bifurcated Body Graft Implanted:Qty: 1 on 04/15/2018 by Evens Hoyt MD at OR [facility] N/A: Aorta [employer] 03/20/2021 [id number]-D-12 -28-76-C / / [id number] Graft Iliac Leg Spirlz [id number] - [id number] Implanted:Qty: 1 on 04/15/2018 by Evens Hoyt MD at OR [facility] Left: Iliac [employer] 09/14/2020 [id number] / / [id number] Graft Iliac Leg Spirlz [id number] - [id number] Implanted:Qty: 1 on 04/15/2018 by Evens Hoyt MD at OR [facility] Right: Iliac [employer] 11/09/2020 [id number] / / [id number] Transfixation Pin 6mm 294.950 - [id number] Implanted:Qty: 1 on 11/14/2019 by Mayank Friedman MD at OR [facility] Right: Ankle SYNTHES 294.950 / / Description:transfixation pi n Screw Schanz [id number] - [id number] Implanted:Qty: 2 on 11/14/2019 by Mayank Friedman MD at OR [facility] Right: Leg Lower SYNTHES 294.786SH A / / Description:self drilling sh antz screws 5.0mm x 200mm [place] Trauma 2.7 Lock Screw 16mm Implanted:Qty: 2 on 11/27/2019 by Donavan Ramirez Jr., MD at OR [facility] Right: Ankle ESTHELA : TRAUMA [id number] / / Description:hardware set [place]a Trauma 2.7 Lock Screw 14mm Implanted:Qty: 1 on 11/27/2019 by Donavan Ramirez Jr., MD at OR [facility] Right: Ankle ESTHELA : TRAUMA [id number] / / [place] Trauma 3.5 Screw 14mm Implanted:Qty: 1 on 11/27/2019 by Donavan Ramirez Jr., MD at [facility] Right: Ankle ESTHELA : TRAUMA [id number] / / Description:hardware set [place]a Trauma 3.5 Screw 18mm Implanted:Qty: 1 on 11/27/2019 by Donavan Ramirez Jr., MD at [facility] Right: Ankle ESTHELA : TRAUMA [id number] / / Description:hardware set [place]a 3.5 Lockscrew 16mm Implanted:Qty: 1 on 11/27/2019 by Donavan Ramirez Jr., MD at [facility] Right: Ankle [id number] / / [place]hela 2.0 Plate Implanted:Qty: 1 on 11/27/2019 by Donavan Ramirez Jr., MD at [facility] Right: Ankle [id number] / / [place]a 2.0 Lock Screw Implanted:Qty: 2 on 11/27/2019 by Donavan Ramirez Jr., MD at [facility] Right: Ankle [id number] / / [place] 2.0 Lock Screw Implanted:Qty: 1 on 11/27/2019 by Donavan Ramirez Jr., MD at [facility] Right: Ankle [id number] / / [place] 2.0 Lock Screw Implanted:Qty: 1 on 11/27/2019 by Donavan Ramirez Jr., MD at [facility] Right: Ankle [id number] / / Plate Fib 5h - [id number] Implanted:Qty: 1 on 11/27/2019 by Donavan Ramirez Jr., MD at [facility] Right: Ankle ESTHELA : TRAUMA / / Description:hardware set documented as of this encounter Visit Diagnoses Diagnosis Pain of right lower extremity- Primary Inflammation of sacroiliac joint (HCC) Sacroiliitis, not elsewhere classified documented in this encounter Administered Medications Inactive Administered Medications - up to 3 most recent administrations Medication Order MAR Action Action Date Dose Rate Site dexamethasone sod phosphate PF (Decadron) 10 MG/ML inj 10 mg 10 mg, Intramuscular, ONCE, On 12/01/23 at 1215, For 1 dose, PROTECT FROM LIGHT Given 12/01/2023 11:56 AM EDT 10 mg Deltoid Left Upper ketorolac (Toradol) 15 MG/ML inj 15 mg 15 mg, Intramuscular, ONCE, On 12/01/23 at 1215, For 1 dose Given 12/01/2023 11:55 AM EDT 15 mg Deltoid Right Upper documented in this encounter Active and Recently Administered Medications Times are shown in EDT. Scheduled Medication Order 11/29/2023 11/30/2023 12/01/2023 dexamethasone sod phosphate PF (Decadron) 10 MG/ML inj 10 mg (COMPLETED) 10 mg, Intramuscular, ONCE, On 12/01/23 at 1215, For 1 dose, PROTECT FROM LIGHT 1156 (Given - Provid er: Lisa Landa RN) ketorolac (Toradol) 15 MG/ML inj 15 mg (COMPLETED) 15 mg, Intramuscular, ONCE, On 12/01/23 at 1215, For 1 dose 1155 (Given - Provid er: Lisa Landa RN) documented in this encounter Advance Directives Latest Code Status on File Code Status Date Activated Date Inactivated Comments Full Code 11/03/2023 12:54 AM 11/03/2023 9:39 PM This order reflects the patients wishes and were consensually agreed upon. Question Answer Comments Discussion of Advance Directives occurred with: Patient Does the patient have a Living Will? No Does the patient have Health Care Power of Field Services Director? No Code Status History Code Status Date [...] the patient have Health Care Power of Field Services Director? No Full Code 02/17/2019 12:06 PM 02/18/2019 1:09 PM This order reflects the patients wishes and were consensually agreed upon. Question Answer Comments Discussion of Advance Directives occurred with: Not Discussed Does the patient have a Living Will? No Does the patient have Health Care Power of Field Services Director? No Care Teams Complex Director Relationship Specialty Start Date End Date Buster Jessica MD [address] [place] [id number] PCP - General Family Medicine 09/11/22 documented as of this encounter"
--- OUTSIDE RECORDS SUMMARY | 2023-12-11 18:43 | External Medical Summary | Summary of Care ---
Author Name Unknown Organization [facility] Address [address] [place] [address] Phone [phone] Care Team Providers Care Latex Fashions Designer Name Role Phone Buster Jessica MD Primary Care P [facility] Reason for Visit * Reason Comments Muscle Weakness LEs Abnormal Gait * Evaluate & Treat - Unlimited Visits (Within 10 days (routine)) - Pending Review Specialty Diagnoses / Procedures Referred By Satinder vázquez Referred To Contact Physical Therapy / Physical Medicine And Rehab Diagnoses Ambulatory dysfunction Israel Schofield MD [address] [place] [address] [place] [address] Referral ID Status Reason Start Date Expiration Date Visits Requested Visits Authorized [id number] Pending Review Specialty Services Required 11/03/2023 08/05/[phone] Encounter Details Date Type Department Care Team (Latest Contact Info) Description 11/23/2023 1:45 PM EDT Rehab Services Physical Therapy [address] [place] [address] Marleni Quarles, PT [address] [place] [address] Ambulatory dysfunction*; Muscle weakness; Impaired functional mobility, [...] as of this encounter (statuses as of 11/23/2023) Medications Medication Sig Dispensed Refills Start Date End Date Status Vitamin C 1000 MG Oral Tablet Take 1 Tablet by mouth in the morning. 0 Active Metoprolol Succinate ER 100 MG Oral Tablet Extended Release 24 Hour (toPROL XL) TAKE ONE TABLET BY MOUTH ONCE DAILY 90 Tablet 3 03/08/2023 Active Clopidogrel Bisulfate 75 MG Oral Tablet (pLAVix)Indications: PAD (peripheral artery disease) ([facility]),Coronary artery disease involving [place] coronary artery of [place] heart without angina pectoris TAKE ONE TABLET BY MOUTH ONCE DAILY 90 Tablet 3 03/13/2023 Active Famotidine 20 MG Oral Tablet (Pepcid) TAKE 1 TABLET BY MOUTH TWICE DAILY (MORNING AND AT BEDTIME) 180 Tablet 3 04/30/2023 Active Spironolactone 25 MG Oral Tablet (Aldactone)Indicatio ns:Coronary artery disease involving [place] coronary artery of [place] heart without angina pectoris,Heart failure, systolic, due to CAD ([facility]),Chronic ischemic heart disease,HTN, goal below 140/90 TAKE ONE TABLET BY MOUTH ONCE DAILY 90 Tablet 3 05/14/2023 Active Losartan Potassium 25 MG Oral Tablet (Cozaar)Indications: PAD (peripheral artery disease) ([facility]),Coronary artery disease involving n[place] coronary artery of [place] heart without angina pectoris TAKE ONE TABLET BY MOUTH ONCE DAILY 90 Tablet 3 06/04/2023 Active Baclofen 20 MG Oral TabletIndications:Ch ronic bilateral low back pain without sciatica Take 1 Tablet by mouth 3 times a day as needed for Muscle spasms. 90 Tablet 5 06/06/2023 Active Repatha SureClick 140 MG/ML Subcutaneous Solution Auto-injector (evolocumab)Indicati ons:Obstructive sleep apnea,Heart failure, systolic, due to CAD ([facility]),Dyslipidemia, goal LDL below 70,Chronic ischemic heart disease,Tobacco use disorder,Coronary artery disease involving n[place] coronary artery of [place] heart without angina pectoris Inject 140 mg (1 pen) under the skin every 14 days. 6 mL 3 07/02/2023 Active Metoprolol Succinate ER 50 MG Oral Tablet Extended Release 24 Hour (Toprol XL)Indications:Persi stent atrial fibrillation ([facility]),Acute on chronic systolic (congestive) heart failure ([facility]) One tablet by mouth daily at bedtime, [...] suspected opioid overdose. Seek immediate medical attention. [email or web address] 1 Each 3 09/15/2023 Active Additional Information [...] PD, group D, by GOLD 2017 classification ([facility]) Inhale 1 Puff by mouth in the morning and 1 Puff before bedtime. 180 Each 12 10/29/2023 Active Albuterol Sulfate (2.5 MG/3ML) 0.083% Inhalation Nebulization Solution (Proventil)Indicatio ns:COPD, group D, by GOLD 2017 classification ([facility]) Inhale 1 Vial via nebulizer [...] for 8 days. 21 Tablet 0 11/14/2023 4 Active Allopurinol 100 MG Oral Tablet (Zyloprim)Indication s:Acute drug-induced gout of multiple sites Take 2 Tablets by mouth in the morning. 60 Tablet 5 11/14/2023 Active HYDROcodone-Acetamin ophen 7.5-325 MG Oral TabletIndications:Ch ronic bilateral low back pain without sciatica,Acute drug-induced gout of right ankle Take 1 Tablet by mouth every 6 hours as needed for Pain, Severe. 120 Tablet 0 11/14/2023 Active Plyvd-2-yxco Ethyl Esters 1 GM Oral Capsule (Lovaza)Indications: Dyslipidemia, goal LDL below 70 Take 2 Capsules by mouth in the morning and 2 Capsules before bedtime. 120 Capsule 5 11/14/2023 Active Cephalexin 500 MG Oral Capsule (Keflex)Indications: COPD, group D, by GOLD 2017 classification ([facility]) Take 1 Capsule by mouth in the morning and 1 Capsule at noon and 1 Capsule before bedtime. Do all this for 10 days. COPD rescue kit. 30 Capsule 0 11/15/2023 4 Active Additional Information Patient not taking.Reported on 11/21/2023 Torsemide 100 MG Oral Tablet (Demadex)Indications :Heart failure, systolic, due to CAD (HCC) Take 1 tablet by mouth every morning. Take an additional tablet on Sunday, Sunday and Sunday afternoon only. 150 Tablet 3 11/22/2023 Active documented as of this encounter (statuses as of 11/23/2023) Active Problems Problem Noted Date Diagnosed Date [...] fibrillation) 09/22/2021 Atherosclerotic heart diseas e of n[place]il[place] coronary artery with other forms of angina [...] untreated, BMI 43.71 kg/m, NECK: 21 inches, [place] 6/24, sent for bipap titration study 01/11/11 case per [facility] completed ICD-10 update of inactive term Last Assessment & Plan: Waiting for new bipap machine BMI 35-39 ISOLATED (SEE ACTUAL BMI) 01/17/2010 Overview: Per Obesity Protocol, #19 BPH without obstruction/lower urinary tract symp toms 08/19/2009 Dyslipidemia, goal LDL below 70 07/21/2009 Overview: Per Lipid Taxonomy. documented as of this encounter (statuses as of 11/23/2023) Resolved Problems Problem Noted Date Diagnosed Date [...] 11/22/2020 10/12/2023 Coronary artery disease invo lving ninilchik coronary artery of [place] heart without angina pectoris 07/06/2020 10/12/2023 Chronic [...] 09/23/201305/17 Claudication 05/13/2013 10/12/2023 [employer] Other*[id number] 04/23/2012 09/12/2016 Overview: Study Title: Genomic Markers for Patients with Cardiovascular Disease Project # [id number] Recooperer: Comfort Aviles MD [phone] Impotence of organic origin 02/16/2011 01/10/2018 Shortness [...] as of this encounter (statuses as of 11/23/2023) Immunizations Name Administration Dates Next Due COVID-19 [...] do you have serious difficulty hearing? Yes-very [place] 11/03/2023 Are you blind or do you [...] Upcoming Encounters Date Type Department Care Team ([facility] st Contact Info) Description 11/26/2023 10:00 AM EDT Rehab Services Physical Therapy [facility] [address] [place] [phone] Marleni Quarles, PT [address] [facility] [place] [address] 11/28/2023 10:00 AM EDT Rehab Services Physical Therapy [facility] [address] [phone] Valorie Valdivia, SELLING MANAGER [address] [place] [address] 11/28/2023 10:15 AM EDT Scheduled Telephone [facility], [facility] [address] [place] [address] Coordinator, [facility] [address] [place] [address] 12/03/2023 10:00 AM EDT Rehab Services Physical Therapy [address] [phone] Marleni Quarles, PT [address] [place] [address] 12/05/2023 10:00 AM EDT Rehab Services Physical Therapy [address] [phone] Valorie Valdivia, SELLING MANAGER [address] [place] [address] 12/10/2023 9:15 AM EDT Hospital Encounter [facility], Operating Room [facility] [address] [place] [phone] Freeman Beaulieu DO [address] [place] [address] 12/10/2023 9:15 AM EDT - 12/10/2023 9:40 AM EDT Surgery [facility], Operating Room [facility] [address] [place] [address] Freeman Beaulieu, DO [address] [place] [address] INJECTION SACROILIAC JOINT 12/12/2023 9:00 AM EDT Home Visit [facility], [facility] [address] [place] [address] Xochitl Marina, VALUE ANALYST [address] [place] [address] 12/13/2023 9:50 AM EDT Office Visit [address] [phone] Buster Jessica MD [address] [place] [address] 12/20/2023 1:30 PM EDT Telemedicine [facility], [facility] [address] [place] [address] Grisel Richter CRNP [address] [place] [address] Clary Eastman, Community Health Training And Documentation Specialist [address] [place] [address] 01/01/2024 10:00 AM EDT Home Visit [facility], [facility] [address] [place] [address] Lisa Tenorio, RN [address] [place] [address] 01/15/2024 10:40 AM EDT Office Visit [facility] [address] [facility] [place] [address] Clair Quarles, DO [address] [place] [address] 04/22/2024 9:30 AM EDT Cardiac Studies [facility]iology, [facility] [address] [place] [address] [place], [facility] [address] [place] [address] 05/19/2024 9:30 AM EDT Appointment Radiology, [id number] [place] [address] Scheduled Procedures Name Priority Associated Diagnoses Date/Ti me INJECTION SACROILIAC JOINT Inflammation of sacroiliac joint (HCC) 12/10/2023 9:15 AM EDT COLONOSCOPY FLEXIBLE PROXIMAL DIAGNOSTIC Recall History of colon polyps Scheduled Referrals Name Type Priority Associated Diagnoses Orde r Schedule PHYSICAL THERAPY REFERRAL OP Referral Within 10 days (routine) Ambulatory dysfunction Ordered: 11/03/2023 Health Maintenance Due Date Last Done Comments *ADVANCE DIRECTIVE NOT ON FILE 05/28/2019 COVID-19 Vaccine ( season) 2023 11/08/2020, 10/08/2020 DISCUSS TOBACCO CESSATION (REFER TO SMARTSET #7090) 06/02/2023 06/02/2022, 07/21/2020 Depression, Most Recent Score [...] Medical Devices Implanted Type Area Director Of Special Education Device Identifier Shelf Expiration Date Model / Serial / Lot 32mm X 109mm, Zenith Fenestrated Aaa Endovascular Proximal Body Graft, Two Proximal Internal Stent Implanted:Qty: 1 on 04/15/2018 by Evens Hoyt MD at OR [facility] N/A: Aorta [facility] 03/20/2021 LISA-P-2- 32-109-[id number] / / [id number] Stent Graft [id number] - [id number] - [id number] Implanted:Qty: 1 on 04/15/2018 by Evens Hoyt MD at OR [facility] Right: Renal Artery GETINGE : MAQUET 11/30/2020 [id number] / [id number] / [id number] Stent Graft [id number] - [id number] - [id number] Implanted:Qty: 1 on 04/15/2018 by Evens Hoyt MD at OR [facility] Right: Renal Artery GETINGE : MAQUET 11/30/2020 54576 / [id number] / [id number] 28mm X 76mm Distal, 12mm Ipsilateral Leg, Zenith Fenestrated Aaa Endovascular Distal Bifurcated Body Graft Implanted:Qty: 1 on 04/15/2018 by Evens Hoyt MD at OR [facility] N/A: Aorta [employer] 03/20/2021 ZFKEDAR-D-12 -28-76-C / / [id number] Graft Iliac Leg Spirlz 68c85uw - [id number] Implanted:Qty: 1 on 04/15/2018 by Evens Hoyt MD at OR [facility] Left: Iliac [employer] 09/14/2020 [id number] / / [id number] Graft Iliac Leg Spirlz 51p09xx - [id number] Implanted:Qty: 1 on 04/15/2018 by Evens Hoyt MD at OR [facility] Right: Iliac [employer] 11/09/2020 [id number] / / [id number] Transfixation Pin 6mm 294.950 - [id number] Implanted:Qty: 1 on 11/14/2019 by Mayank Friedman MD at OR [facility] Right: Ankle SYNTHES 294.950 / / Description:transfixation pi n Screw Schanz [id number] - [id number] Implanted:Qty: 2 on 11/14/2019 by Mayank Friedman MD at OR [facility] Right: Leg Lower SYNTHES 294.786SH A / / Description:self drilling sh antz screws 5.0mm x 200mm Maramec Trauma 2.7 Lock Screw 16mm Implanted:Qty: 2 on 11/27/2019 by Donavan Ramirez Jr., MD at OR [facility] Right: Ankle ESTHELA : TRAUMA [id number] / / Description:hardware set Maramec Trauma 2.7 Lock Screw 14mm Implanted:Qty: 1 on 11/27/2019 by Donavan Ramirez Jr., MD at OR [facility] Right: Ankle ESTHELA : TRAUMA [id number] / / Esthela Trauma 3.5 Screw 14mm Implanted:Qty: 1 on 11/27/2019 by Donavan Ramirez Jr., MD at OR [facility] Right: Ankle ESTHELA : TRAUMA [id number] / / Description:hardware set Maramec Trauma 3.5 Screw 18mm Implanted:Qty: 1 on 11/27/2019 by Donavan Ramirez Jr., MD at [facility] Right: Ankle ESTHELA : TRAUMA [id number] / / Description:hardware set Esthela 3.5 Lockscrew 16mm Implanted:Qty: 1 on 11/27/2019 by Donavan Ramirez Jr., MD at OR [facility] Right: Ankle [id number] / / Maramec 2.0 Plate Implanted:Qty: 1 on 11/27/2019 by Donavan Ramirez Jr., MD at [facility] Right: Ankle [id number] / / Esthela 2.0 Lock Screw Implanted:Qty: 2 on 11/27/2019 by Donavan Ramirez Jr., MD at [facility] Right: Ankle [id number] / / Maramec 2.0 Lock Screw Implanted:Qty: 1 on 11/27/2019 by Donavan Ramirez Jr., MD at [facility] Right: Ankle [id number] / / Maramec 2.0 Lock Screw Implanted:Qty: 1 on 11/27/2019 by Donavan Ramirez Jr., MD at [facility] Right: Ankle [id number] / / Plate Fib 5h - [id number] Implanted:Qty: 1 on 11/27/2019 by Donavan Ramirez Jr., MD at OR [facility] Right: Ankle ESTHELA : TRAUMA / / [...] the patient have Health Care Power of Platen Drier Operator? No Code Status History Code Status [...] the patient have Health Care Power of Platen Drier Operator? No Full Code 02/17/2019 12:06 PM 02/18/2019 1:09 PM This order reflects the patients wishes and were consensually agreed upon. Question Answer Comments Discussion of Advance Directives occurred with: Not Discussed Does the patient have a Living Will? No Does the patient have Health Care Power of Platen Drier Operator? No Care Teams Latex Fashions Designer Relationship Specialty Start Date End Date Buster Jessica MD [address] [place] [id number] PCP - General Family Medicine 09/11/22 documented as of this encounter
--- OUTSIDE RECORDS SUMMARY | 2023-12-11 18:44 | External Medical Summary | Summary of Care ---
Author Name Unknown Organization [facility] Address [address] [place] [address] Phone [phone] Care Team Providers Care Rouge Presser Name Role Phone Buster Jessica MD Primary Care [facility] Reason for Visit * Reason Onset Date Comments Appointment 11/21/2023 Encounter Details Date Type Department Care Team (Late st Contact Info) Description 11/21/2023 Telephone [facility] [place] [facility] [place] [address] Services, Scheduling [address] [place] [address] Appointment (/) Allergies Active Allergy Reactions Criticality Noted Date Comments Atorvastatin Muscle pain,Unknown 01/18/2015 Medication intolerance, not an allergy Sacubitril-Valsartan Other (Please comment) 09/17/2020 Throat swelled Sacubitril High 07/20/2023 Other Reaction(s): THROAT SWELLING Simvastatin Low 06/23/2022 Other reaction(s): MUSCLE ACHES Valsartan High 07/20/2023 Other Reaction(s): THROAT SWELLING documented as of this encounter (statuses as of 11/21/2023) Medications Medication Sig Dispensed Refills Start Date End Date Status Torsemide 100 MG Oral Tablet (Demadex)Indications :Heart failure, systolic, due to CAD ([facility]) Take 1 tablet by mouth every morning. Take 1 tab on Sunday, Sunday and Sunday afternoon. 150 Tablet 3 08/28/2022 Active Additional Information Patient taking differently: Take 1 tablet by mouth every morning. Take an additional tablet on Sunday, Sunday and Sunday afternoon only., Reported on 09/18/2023 Vitamin C 1000 MG Oral Tablet Take 1 Tablet by mouth in the morning. 0 Active Metoprolol Succinate ER 100 MG Oral Tablet Extended Release 24 Hour (toPROL XL) TAKE ONE TABLET BY MOUTH ONCE DAILY 90 Tablet 3 03/08/2023 Active Clopidogrel Bisulfate 75 MG Oral Tablet (pLAVix)Indications: PAD (peripheral artery disease) ([facility]),Coronary artery disease involving eastern shoshone coronary artery of eastern sh[place]one heart without angina pectoris TAKE ONE TABLET BY MOUTH ONCE DAILY 90 Tablet 3 03/13/2023 Active Famotidine 20 MG Oral Tablet (Pepcid) TAKE 1 TABLET BY MOUTH TWICE DAILY (MORNING AND AT BEDTIME) 180 Tablet 3 04/30/2023 Active Spironolactone 25 MG Oral Tablet (Aldactone)Indicatio ns:Coronary artery disease involving eastern shoshone coronary artery of eastern sh[place] heart without angina pectoris,Heart failure, systolic, due to CAD ([facility]),Chronic ischemic heart disease,HTN, goal below 140/90 TAKE ONE TABLET BY MOUTH ONCE DAILY 90 Tablet 3 05/14/2023 Active Losartan Potassium 25 MG Oral Tablet (Cozaar)Indications: PAD (peripheral artery disease) ([facility]),Coronary artery disease involving eastern [place]oshone coronary artery of eastern shoshone heart without angina pectoris TAKE ONE [...] failure, systolic, due to CAD ([facility]),Dyslipidemia, goal LDL below 70,Chronic ischemic heart disease,Tobacco use disorder,Coronary artery disease involving eastern shoshone coronary artery of eastern shoshone heart without angina pectoris Inject 140 [...] suspected opioid overdose. Seek immediate medical attention. [email or web address] 1 Each 3 09/15/2023 Active Additional Information [...] D, by GOLD 2017 classification ([facility]) Inhale 1 Puff by mouth in the morning and 1 Puff before bedtime. 180 Each 12 10/29/2023 Active Albuterol Sulfate (2.5 MG/3ML) 0.083% Inhalation Nebulization Solution (Proventil)Indicatio ns:COPD, group D, by GOLD 2017 classification ([facility]) Inhale 1 Vial via nebulizer every [...] Pain, Severe. 120 Tablet 0 11/14/2023 Active Exxbm-6-zdpe Ethyl Esters 1 GM Oral Capsule (Lovaza)Indications: Dyslipidemia, goal LDL below 70 Take 2 Capsules by mouth in the morning and 2 Capsules before bedtime. 120 Capsule 5 11/14/2023 Active Cephalexin 500 MG Oral Capsule (Keflex)Indications: COPD, group D, by GOLD 2017 classification ([facility]) Take 1 Capsule by mouth in the morning and 1 Capsule at noon and 1 Capsule before bedtime. Do all this for 10 days. COPD rescue kit. 30 Capsule 0 11/15/2023 4 Active documented as of this encounter (statuses as of 11/21/2023) Active Problems Problem Noted Date Diagnosed Date [...] fibrillation) 09/22/2021 Atherosclerotic heart diseas e of eastern shosh[place] coronary artery with other forms of [...] untreated, BMI 43.71 kg/m, NECK: 21 inches, Carbon 01/27, sent for bipap titration study 01/11/11 case per [facility] completed ICD-10 update of inactive term Last Assessment & Plan: Waiting for new bipap machine BMI 35-39 ISOLATED (SEE ACTUAL BMI) 01/17/2010 Overview: Per Obesity Protocol, #19 BPH without obstruction/lower urinary tract symp toms 08/19/2009 Dyslipidemia, goal LDL below 70 07/21/2009 Overview: Per Lipid Taxonomy. documented as of this encounter (statuses as of 11/21/2023) Resolved Problems Problem Noted Date Diagnosed Date [...] 11/22/2020 10/12/2023 Coronary artery disease invo lving eastern shoshone coronary artery of eastern shoshone heart without angina pectoris 07/06/2020 10/12/2023 [...] 09/23/201305/17 Claudication 05/13/2013 10/12/2023 [employer] Other*[id number] 04/23/2012 09/12/2016 Overview: Study Title: Genomic Markers for Patients with Cardiovascular Disease Project # [id number] Boat Ride Operator: Comfort Aviles MD [phone] Impotence of organic origin 02/16/2011 01/10/2018 Shortness [...] as of this encounter (statuses as of 11/21/2023) Immunizations Name Administration Dates Next Due COVID-19 [...] do you have serious difficulty hearing? Yes-very [place] 11/03/2023 Are you blind or do you [...] encounter Miscellaneous Notes * Telephone Encounter - María Ghotra OSA - 11/21/2023 4:13 PM EDT Request to set appt, appt set for 12/19, reminder set documented in this encounter Plan of Treatment Upcoming Encounters Date Type Department Care Team ([facility] st Contact Info) Description 11/23/2023 1:45 PM EDT Rehab Services Physical Therapy [address] [place] [address] Marleni Quarles, PT [address] [place] [address] 12/10/2023 9:15 AM EDT Hospital Encounter [facility], Operating Room [facility] [address] [place] [phone] Freeman Beaulieu, DO [address] [place] [address] 12/10/2023 9:15 AM EDT - 12/10/2023 9:40 AM EDT Surgery OR [facility], Operating Room [facility] [address] [place] [phone] Freeman Beaulieu, DO [address] [place] [phone] INJECTION SACROILIAC JOINT 12/12/2023 9:00 AM EDT Home Visit [facility] [address] [place] [address] Xochitl Marina LCSW [address] [place] [address] 12/13/2023 9:50 AM EDT Office Visit [address] [phone] Buster Jessica MD [address] [place] [address] 12/20/2023 1:30 PM EDT Telemedicine [facility] [address] [place] [address] Grisel Richter CRNP [address] [place] [address] Clary Eastman, Community Health Senior Business Development Analyst [address] [place] [address] 01/15/2024 10:40 AM EDT Office Visit [facility] [address] [place] [phone] Clair Quarles, [address] [place] [address] 04/22/2024 9:30 AM EDT Cardiac Studies Cardiology, [facility] [address] [place] [address] [facility] [address] [place] [address] 05/19/2024 9:30 AM EDT Appointment Radiology, [address] [phone] Scheduled Procedures Name Priority Associated Diagnoses Date/Ti me INJECTION SACROILIAC JOINT Inflammation of sacroiliac joint (HCC) 12/10/2023 9:15 AM EDT COLONOSCOPY FLEXIBLE PROXIMAL DIAGNOSTIC Recall History of colon polyps Health Maintenance Due Date Last Done Comments *ADVANCE DIRECTIVE NOT ON FILE 05/28/2019 COVID-19 Vaccine ( season) 2023 11/08/2020, 10/08/2020 DISCUSS TOBACCO CESSATION (REFER TO SMARTSET #4463) 06/02/2023 06/02/2022, 07/21/2020 Depression, Most Recent Score >= 10 (will fire each visit until score < 10) 08/30/2023 08/29/2023 Influenza Vaccine (FLU shot) (Season Ended) 2024 05/11/2022, 06/09/2021, 04/13/2020, Additional history exists GFR 11/02/2024 11/03/2023, 10/05, 10/30/2023, Additional history exists O2 ASSESSMENT COMPLETED IN PAST YEAR FOR COPD 11/15/2024 11/16/2023 Albumin/Creatinine Ratio 06/06/2026 06/06/2023 COLONOSCOPY-EVERY 5 YRS [...] this encounter Medical Devices Implanted Type Area Pot Fluxer Device Identifier Shelf Expiration Date Model / Serial / Lot 32mm X 109mm, Zenith Fenestrated Aaa Endovascular Proximal Body Graft, Two Proximal Internal Stent Implanted:Qty: 1 on 04/15/2018 by Evens Hoyt MD at OR [facility] N/A: Aorta [facility] 03/20/2021 LISA-P-2- [id number] / / [id number] Stent Graft [id number] - [id number] - [id number] Implanted:Qty: 1 on 04/15/2018 by Evens Hoyt MD at OR [facility] Right: Renal Artery GETINGE : MAQUET 11/30/2020 [id number] / [id number] / [id number] Stent Graft [id number] - [id number] - [id number] Implanted:Qty: 1 on 04/15/2018 by Evens Hoyt MD at OR [facility] Right: Renal Artery GETINGE : MAQUET 11/30/2020 [id number] / [id number] / [id number] 28mm X 76mm Distal, 12mm Ipsilateral Leg, Zenith Fenestrated Aaa Endovascular Distal Bifurcated Body Graft Implanted:Qty: 1 on 04/15/2018 by Evens Hoyt MD at OR [facility] N/A: Aorta [employer] 03/20/2021 [id number]-D-12 -28-76-C / / [id number] Graft Iliac Leg Spirlz [id number] - [id number] Implanted:Qty: 1 on 04/15/2018 by Evens Hoyt MD at OR [facility] Left: Iliac [employer] 09/14/2020 [id number] / / [id number] Graft Iliac Leg Spirlz 27x20id - [id number] Implanted:Qty: 1 on 04/15/2018 by Evens Hoyt MD at OR [facility] Right: Iliac [employer] 11/09/2020 [id number] / / [id number] Transfixation Pin 6mm 294.950 - [id number] Implanted:Qty: 1 on 11/14/2019 by Mayank Friedman MD at OR [facility] Right: Ankle SYNTHES 294.950 / / Description:transfixation pi n Screw Schanz [id number] - [id number] Implanted:Qty: 2 on 11/14/2019 by Mayank Friedman MD at OR [facility] Right: Leg Lower SYNTHES 294.786SH A / / Description:self drilling sh antz screws 5.0mm x 200mm Marana Trauma 2.7 Lock Screw 16mm Implanted:Qty: 2 on 11/27/2019 by Donavan Ramirez Jr., MD at OR [facility] Right: Ankle ESTHELA : TRAUMA [id number] / / Description:hardware set Esthela Trauma 2.7 Lock Screw 14mm Implanted:Qty: 1 on 11/27/2019 by Donavan Ramirez Jr., MD at OR [facility] Right: Ankle ESTHELA : TRAUMA [id number] / / Esthela Trauma 3.5 Screw 14mm Implanted:Qty: 1 on 11/27/2019 by Donavan Ramirez Jr., MD at OR [facility] Right: Ankle ESTHELA : TRAUMA [id number] / / Description:hardware set Marana Trauma 3.5 Screw 18mm Implanted:Qty: 1 on 11/27/2019 by Donavan Ramirez Jr., MD at OR [facility] Right: Ankle ESTHELA : TRAUMA [id number] / / Description:hardware set Marana 3.5 Lockscrew 16mm Implanted:Qty: 1 on 11/27/2019 by Donavan Ramirez Jr., MD at OR [facility] Right: Ankle [id number] / / Esthela 2.0 Plate Implanted:Qty: 1 on 11/27/2019 by Donavan Ramirez Jr., MD at OR [facility] Right: Ankle [id number] / / Esthela 2.0 Lock Screw Implanted:Qty: 2 on 11/27/2019 by Donavan Ramirez Jr., MD at OR [facility] Right: Ankle [id number] / / Esthela 2.0 Lock Screw Implanted:Qty: 1 on 11/27/2019 by Donavan Ramirez Jr., MD at OR [facility] Right: Ankle [id number] / / Marana 2.0 Lock Screw Implanted:Qty: 1 on 11/27/2019 by Donavan Ramirez Jr., MD at OR [facility] Right: Ankle [id number] / / Plate Fib 5h - [id number] Implanted:Qty: 1 on 11/27/2019 by Donavan Ramirez Jr., MD at OR [facility] Right: Ankle ESTHELA [...] the patient have Health Care Power of Tearer? No Code Status History Code Status Date [...] the patient have Health Care Power of Tearer? No Full Code 02/17/2019 12:06 PM 02/18/2019 1:09 PM This order reflects the patients wishes and were consensually agreed upon. Question Answer Comments Discussion of Advance Directives occurred with: Not Discussed Does the patient have a Living Will? No Does the patient have Health Care Power of Tearer? No Care Teams Rouge Presser Relationship Specialty Start Date End Date Buster Jessica MD [address] [place] [phone] PCP - General Family Medicine 09/11/22 documented as of this encounter
--- OUTSIDE RECORDS SUMMARY | 2023-12-11 18:44 | External Medical Summary | Summary of Care ---
Author Name Unknown Organization [facility] Address [address] [place] [address] Phone [phone] Care Team Providers Care Lead Front End Developer Name Role Phone Buster Jessica MD [facility] Reason for Visit * Reason Onset Date Comments Follow Up 11/20/2023 Encounter Details Date Type Department Care Team (Late st Contact Info) Description 11/20/2023 3:15 PM EDT Scheduled Telephone [facility], [facility] [address] [place] [address] Coordinator, [facility] [address] [place] [address] Allergies Active Allergy Reactions Criticality Noted Date Comments Atorvastatin Muscle pain,Unknown 01/18/2015 Medication intolerance, not an allergy Sacubitril-Valsartan Other (Please comment) 09/17/2020 Throat swelled Sacubitril High 07/20/2023 Other Reaction(s): THROAT SWELLING Simvastatin Low 06/23/2022 Other reaction(s): MUSCLE ACHES Valsartan High 07/20/2023 Other Reaction(s): THROAT SWELLING documented as of this encounter (statuses as of 11/20/2023) Medications Medication Sig Dispensed Refills Start Date End Date Status Torsemide 100 MG Oral Tablet (Demadex)Indications :Heart failure, systolic, due to CAD ([facility]) Take 1 tablet by mouth every morning. [...] Oral Tablet (pLAVix)Indications: PAD (peripheral artery disease) ([facility]),Coronary artery disease involving menominee coronary artery of menominee heart without angina pectoris TAKE ONE TABLET BY MOUTH ONCE DAILY 90 Tablet 3 03/13/2023 Active Famotidine 20 MG Oral Tablet (Pepcid) TAKE 1 TABLET BY MOUTH TWICE DAILY (MORNING AND AT BEDTIME) 180 Tablet 3 04/30/2023 Active Spironolactone 25 MG Oral Tablet (Aldactone)Indicatio ns:Coronary artery disease involving menominee coronary artery of menominee heart without angina pectoris,Heart failure, systolic, due to CAD ([facility]),Chronic ischemic heart disease,HTN, goal below 140/90 TAKE ONE TABLET BY MOUTH ONCE DAILY 90 Tablet 3 05/14/2023 Active Losartan Potassium 25 MG Oral Tablet (Cozaar)Indications: PAD (peripheral artery disease) ([facility]),Coronary artery disease involving menominee coronary artery of menominee heart without angina pectoris TAKE ONE TABLET BY MOUTH ONCE DAILY 90 Tablet 3 06/04/2023 Active Baclofen 20 MG Oral TabletIndications:Ch ronic bilateral low back pain without sciatica Take 1 Tablet by mouth 3 times a day as needed for Muscle spasms. 90 Tablet 5 06/06/2023 Active Repatha SureClick 140 MG/ML Subcutaneous Solution Auto-injector (evolocumab)Indicati ons:Obstructive sleep apnea,Heart failure, systolic, due to CAD ([facility]),Dyslipidemia, goal LDL below 70,Chronic ischemic heart disease,Tobacco use disorder,Coronary artery disease involving menominee coronary artery of menominee heart without angina pectoris Inject 140 mg [...] suspected opioid overdose. Seek immediate medical attention. [email or web address] 1 Each 3 09/15/2023 Active Additional Information [...] group D, by GOLD 2017 classification ([facility]) Inhale 1 Puff by mouth in the morning and 1 Puff before bedtime. 180 Each 12 10/29/2023 Active Albuterol Sulfate (2.5 MG/3ML) 0.083% Inhalation Nebulization Solution (Proventil)Indicatio ns:COPD, group D, by GOLD 2017 classification ([facility]) Inhale 1 Vial via nebulizer every 4 [...] Pain, Severe. 120 Tablet 0 11/14/2023 Active Ngsyt-0-rptq Ethyl Esters 1 GM Oral Capsule (Lovaza)Indications: Dyslipidemia, goal LDL below 70 Take 2 Capsules by mouth in the morning and 2 Capsules before bedtime. 120 Capsule 5 11/14/2023 Active Cephalexin 500 MG Oral Capsule (Keflex)Indications: COPD, group D, by GOLD 2017 classification ([facility]) Take 1 Capsule by mouth in the morning and 1 Capsule at noon and 1 Capsule before bedtime. Do all this for 10 days. COPD rescue kit. 30 Capsule 0 11/15/2023 4 Active documented as of this encounter (statuses as of 11/20/2023) Active Problems Problem Noted Date Diagnosed Date [...] fibrillation) 09/22/2021 Atherosclerotic heart diseas e of menominee coronary artery with other forms of angina [...] untreated, BMI 43.71 kg/m, NECK: 21 inches, [place] 01/27, sent for bipap titration study 01/11/11 case per [facility] completed ICD-10 update of inactive term Last Assessment & Plan: Waiting for new bipap machine BMI 35-39 ISOLATED (SEE ACTUAL BMI) 01/17/2010 Overview: Per Obesity Protocol, #19 BPH without obstruction/lower urinary tract symp toms 08/19/2009 Dyslipidemia, goal LDL below 70 07/21/2009 Overview: Per Lipid Taxonomy. documented as of this encounter (statuses as of 11/20/2023) Resolved Problems Problem Noted Date Diagnosed Date [...] 11/22/2020 10/12/2023 Coronary artery disease invo lving menominee coronary artery of menominee heart without angina pectoris 07/06/2020 10/12/2023 Chronic [...] 09/23/201305/17 Claudication 05/13/2013 10/12/2023 Genomics Card[employer] Other*[id number] 04/23/2012 09/12/2016 Overview: Study Title: Genomic Markers for Patients with Cardiovascular Disease Project # [id number] Washer Blanket: Comfort Aviles MD [phone] Impotence of organic origin 02/16/2011 01/10/2018 Shortness [...] as of this encounter (statuses as of 11/20/2023) Immunizations Name Administration Dates Next Due COVID-19 [...] do you have serious difficulty hearing? Yes-very [place] 11/03/2023 Are you blind or do you [...] Telephone Encounter - Chan Nagy RN - 11/20/2023 10:33 AM EDT Follow up phone call to patient, spoke to [place], he states gout pain is greatly improved. He states he started taking prednisone and pain is 50% improved from last night. He is able to stand and walk now. Patient encouraged to call [facility] intake phone number for all urgent, non-emergent health issues. [facility] contact information provided. documented in this encounter Plan of Treatment Upcoming Encounters Date Type Department Care Team (Latest Contact Info) Description 11/21/2023 9:45 AM EDT Scheduled Telephone [facility], [facility] [address] [place] [address] Coordinator, [facility] [address] [facility] [address] 11/22/2023 10:00 AM EDT Home Visit [facility], [facility] [address] [place] [address] Lisa Tenorio RN [address] [place] [address] 11/23/2023 1:45 PM EDT Rehab Services Physical Therapy [address] [place] [phone] Marleni Quarles, PT [address] [place] [address] 12/10/2023 9:15 AM EDT Hospital Encounter [facility], Operating Room [facility] [address] [place] [address] Freeman Beaulieu, DO [address] [place] [address] 12/10/2023 9:15 AM EDT - 12/10/2023 9:40 AM EDT Surgery OR [facility], Operating Room OSS [address] [place] [address] Freeman Beaulieu, DO [address] [place] [address] INJECTION SACROILIAC JOINT 12/12/2023 9:00 AM EDT Home Visit [facility], [facility] [address] [place] [address] Xochitl Marina, CELIO [address] [place] [facility] [address] 12/13/2023 9:50 AM EDT Office Visit Family [facility] [address] [place] [address] Buster Jessica MD [address] [place] [address] 01/15/2024 10:40 AM EDT Office Visit [facility] [address] [facility] [phone] Clair Quarles DO [address] [facility] [address] 04/22/2024 9:30 AM EDT Cardiac Studies Cardiology, [facility] 132 [place] [address] [facility] 132 [place] [address] 05/19/2024 9:30 AM EDT Appointment Radiology, [place] [place] [address] Scheduled Procedures Name Priority Associated [...] this encounter Medical Devices Implanted Type Area Council Member Device Identifier Shelf Expiration Date Model / Serial / Lot 32mm X 109mm, Zenith Fenestrated Aaa Endovascular Proximal Body Graft, Two Proximal Internal Stent Implanted:Qty: 1 on 04/15/2018 by Evens Hoyt MD at OR [facility] N/A: Aorta [employer] 03/20/2021 ZFEN-P-2- 32-109-R / / [id number] Stent Graft [id number] - [id number] - [id number] Implanted:Qty: 1 on 04/15/2018 by Evens Hoyt MD at OR [facility] Right: Renal Artery GETINGE : MAQUET 11/30/2020 27595 / [id number] / [id number] Stent Graft [id number] - [id number] - [id number] Implanted:Qty: 1 on 04/15/2018 by Evens Hoyt MD at OR [facility] Right: Renal Artery GETINGE : MAQUET 11/30/2020 64001 / [id number] / [id number] 28mm X 76mm Distal, 12mm Ipsilateral Leg, Zenith Fenestrated Aaa Endovascular Distal Bifurcated Body Graft Implanted:Qty: 1 on 04/15/2018 by Evens Hoyt MD at OR [facility] N/A: Aorta [place] GROUP 03/20/2021 ZFEN-D-12 -28-76-C / / [id number] Graft Iliac Leg Spirlz 96a73po - [id number] Implanted:Qty: 1 on 04/15/2018 by Evens Hoyt MD at OR [facility] Left: Iliac [employer] 09/14/2020 [id number] / / [id number] Graft Iliac Leg Spirlz 74s84sp - [id number] Implanted:Qty: 1 on 04/15/2018 by Evens Hoyt MD at OR [facility] Right: Iliac [employer]OOK [employer] 11/09/2020 [id number] / / [id number] Transfixation Pin 6mm 294.950 - [id number] Implanted:Qty: 1 on 11/14/2019 by Mayank Friedman MD at OR [facility] Right: Ankle SYNTHES 294.950 / / Description:transfixation pi n Screw Schanz 5.9ewi208gl - [id number] Implanted:Qty: 2 on 11/14/2019 by Mayank Friedman MD at OR [facility] Right: Leg Lower SYNTHES 294.786SH A / / Description:self drilling sh antz screws 5.0mm x 200mm Tollhouse Trauma 2.7 Lock Screw 16mm Implanted:Qty: 2 on 11/27/2019 by Donavan Ramirez Jr., MD at OR [facility] Right: Ankle ESTHELA : TRAUMA [id number] / / Description:hardware set Esthela Trauma 2.7 Lock Screw 14mm Implanted:Qty: 1 on 11/27/2019 by Donavan Ramirez Jr., MD at OR [facility] Right: Ankle ESTHELA : TRAUMA [id number] / / Tollhouse Trauma 3.5 Screw 14mm Implanted:Qty: 1 on 11/27/2019 by Donavan Ramirez Jr., MD at OR [facility] Right: Ankle ESTHELA : TRAUMA [id number] / / Description:hardware set Esthela Trauma 3.5 Screw 18mm Implanted:Qty: 1 on 11/27/2019 by Donavan Ramirez Jr., MD at OR [facility] Right: Ankle ESTHELA : TRAUMA [id number] / / Description:hardware set Esthela 3.5 Lockscrew 16mm Implanted:Qty: 1 on 11/27/2019 by Donavan Ramirez Jr., MD at OR [facility] Right: Ankle [id number] / / Tollhouse 2.0 Plate Implanted:Qty: 1 on 11/27/2019 by Donavan Ramirez Jr., MD at OR [facility] Right: Ankle [id number] / / Esthela 2.0 Lock Screw Implanted:Qty: 2 on 11/27/2019 by Donavan Ramirez Jr., MD at OR [facility] Right: Ankle [id number] / / [place] 2.0 Lock Screw Implanted:Qty: 1 on 11/27/2019 by Donavan Ramirez Jr., MD at OR [facility] Right: Ankle [id number] / / Esthela 2.0 Lock Screw Implanted:Qty: 1 on 11/27/2019 by Donavan Ramirez Jr., MD at OR [facility] Right: Ankle [id number] / / Plate Fib 5h - [id number] Implanted:Qty: 1 on 11/27/2019 by Donavan Ramirez Jr., MD at OR [facility] Right: Ankle ESTHELA [...] the patient have Health Care Power of Patching Machine Operator? No Code Status History Code [...] the patient have Health Care Power of Patching Machine Operator? No Full Code 02/17/2019 12:06 PM 02/18/2019 1:09 PM This order reflects the patients wishes and were consensually agreed upon. Question Answer Comments Discussion of Advance Directives occurred with: Not Discussed Does the patient have a Living Will? No Does the patient have Health Care Power of Patching Machine Operator? No Care Teams Lead Front End Developer Relationship Specialty Start Date End Date Buster Jessica MD [address] [place] [address] PCP - General Family Medicine 09/11/22 documented as of this encounter
--- OUTSIDE RECORDS SUMMARY | 2023-12-11 18:44 | External Medical Summary | Summary of Care ---
Author Name Unknown Organization [facility] Address [address] [place] [address] Phone [phone] Care Team Providers Care Director Advertising Name Role Phone Buster Jessica MD Primary Care P [facility] Reason for Visit * Reason Onset Date Comments [facility]: Maintenance 11/20/2023 Encounter Details Date Type Department Care Team (Late st Contact Info) Description 11/20/2023 Telephone [facility], [facility] [address] [place], [place] [phone] [facility], Nurse [facility] [address] [place] [address] [facility]: Maintenance Allergies [...] :Heart failure, systolic, due to CAD ([facility]) Take 1 tablet by mouth every morning. [...] Tablet (pLAVix)Indications: PAD (peripheral artery disease) ([facility]),Coronary artery disease involving [place] coronary artery of [place] heart without angina pectoris TAKE ONE TABLET BY MOUTH ONCE DAILY 90 Tablet 3 03/13/2023 Active Famotidine 20 MG Oral Tablet (Pepcid) TAKE 1 TABLET BY MOUTH TWICE DAILY (MORNING AND AT BEDTIME) 180 Tablet 3 04/30/2023 Active Spironolactone 25 MG Oral Tablet (Aldactone)Indicatio ns:Coronary artery disease involving [place] coronary artery of [place] heart without angina pectoris,Heart failure, systolic, due to CAD ([facility]),Chronic ischemic heart disease,HTN, goal below 140/90 TAKE ONE TABLET BY MOUTH ONCE DAILY 90 Tablet 3 05/14/2023 Active Losartan Potassium 25 MG Oral Tablet (Cozaar)Indications: PAD (peripheral artery disease) ([facility]),Coronary artery disease involving [place] coronary artery of [place] heart without angina pectoris TAKE ONE TABLET [...] apnea,Heart failure, systolic, due to CAD ([facility]),Dyslipidemia, goal LDL below 70,Chronic ischemic heart disease,Tobacco use disorder,Coronary artery disease involving [place] coronary artery of [place] heart without angina pectoris Inject 140 mg [...] suspected opioid overdose. Seek immediate medical attention. [email or web address] 1 Each 3 09/15/2023 Active Additional Information [...] group D, by GOLD 2017 classification ([facility]) Inhale 1 Puff by mouth in the morning and 1 Puff before bedtime. 180 Each 12 10/29/2023 Active Albuterol Sulfate (2.5 MG/3ML) 0.083% Inhalation Nebulization Solution (Proventil)Indicatio ns:COPD, group D, by GOLD 2017 classification ([facility]) Inhale 1 Vial via nebulizer every 4 [...] Pain, Severe. 120 Tablet 0 11/14/2023 Active Qjwch-1-pmnw Ethyl Esters 1 GM Oral Capsule (Lovaza)Indications: Dyslipidemia, goal LDL below 70 Take 2 Capsules by mouth in the morning and 2 Capsules before bedtime. 120 Capsule 5 11/14/2023 Active Cephalexin 500 MG Oral Capsule (Keflex)Indications: COPD, group D, by GOLD 2017 classification ([facility]) Take 1 Capsule by mouth in the [...] Atherosclerotic heart diseas e of [place] coronary artery with other forms of angina [...] untreated, BMI 43.71 kg/m, NECK: 21 inches, [place] 01/27, sent for bipap titration study 01/11/11 [...] Coronary artery disease invo lving [place] coronary artery of [place] heart without angina pectoris 07/06/2020 10/12/2023 Chronic [...] 09/23/201305/17 Claudication 05/13/2013 10/12/2023 Genomics Card[employer] Other*[id number] 04/23/2012 09/12/2016 Overview: Study Title: Genomic Markers for Patients with Cardiovascular Disease Project # [id number] Parquet Floor Layer: Comfort Aviles MD [phone] Impotence of organic origin 02/16/2011 01/10/2018 Shortness [...] do you have serious difficulty hearing? Yes-very [place] 11/03/2023 Are you blind or do you [...] encounter Miscellaneous Notes * Telephone Encounter - Jena Nevarez RN - 11/20/2023 3:17 PM EDT Phone call from patient requesting to reschedule appt with RNCM on 11/22/23 due to schedule conflictwith spouses MRI. RNCM HV rescheduled to 11/21/23 at 2:30 pm. Patient agreeable to date/time. Jena Nevarez RN, BSN [facility] security compliance specialist Navigator documented in this encounter Plan of Treatment Upcoming Encounters Date Type Department Care Team (Latest Contact Info) Description 11/21/2023 9:45 AM EDT Scheduled Telephone [facility] [address] [place] [address] Coordinator, [facility] [address] [facility] [address] [address] 11/21/2023 2:30 PM EDT Home Visit [facility], [facility] [address] [place] [address] Lisa Tenorio RN [address] [place] [address] 11/23/2023 1:45 PM EDT Rehab Services Physical Therapy [address] [phone] Marleni Quarles, PT [address] [place] [address] 12/10/2023 9:15 AM EDT Hospital Encounter [facility], Operating Room OSS [address] [place] [address] Freeman Beaulieu, [address] [place] [address] 12/10/2023 9:15 AM EDT - 12/10/2023 9:40 AM EDT Surgery OR [facility], Operating Room OSS [address] [place] [address] Freeman Beaulieu, DO [address] [place] [address] INJECTION SACROILIAC JOINT 12/12/2023 9:00 AM EDT Home Visit [facility], [facility] [address] [place] [address] Xochitl Marina LCSW [address] [facility] [place] [address] 12/13/2023 9:50 AM EDT Office Visit Family Practice [facility] [address] [place] [address] Buster Jessica MD [address] [place] [address] 01/15/2024 10:40 AM EDT [facility] [address] [facility] [phone] Clair Quarles [facility] [place] [address] 04/22/2024 9:30 AM EDT Cardiac Studies Cardiology, [facility] [address] [place] [address] [facility] [address] [facility] [place] [address] 05/19/2024 9:30 AM EDT Appointment Radiology, [address] [place] [place] [address] Scheduled Procedures Name Priority Associated [...] this encounter Medical Devices Implanted Type Area Senior Web Architect Device Identifier Shelf Expiration Date Model / Serial / Lot 32mm X 109mm, Zenith Fenestrated Aaa Endovascular Proximal Body Graft, Two Proximal Internal Stent Implanted:Qty: 1 on 04/15/2018 by Evens Hoyt MD at OR [facility] N/A: Aorta [employer] 03/20/2021 ZFEN-P-2- 32-109-R / / [id number] Stent Graft [id number] - [id number] - [id number] Implanted:Qty: 1 on 04/15/2018 by Evens Hoyt MD at OR [facility] Right: Renal Artery GETINGE : MAQUET 11/30/2020 51866 / [id number] / [id number] Stent Graft [id number] 45616 - [id number] - [id number] Implanted:Qty: 1 on 04/15/2018 by Evens Hoyt MD at OR [facility] Right: Renal Artery GETINGE : MAQUET 11/30/2020 92610 / [id number] / [id number] 28mm X 76mm Distal, 12mm Ipsilateral Leg, Zenith Fenestrated Aaa Endovascular Distal Bifurcated Body Graft Implanted:Qty: 1 on 04/15/2018 by Evens Hoyt MD at OR [facility] N/A: Aorta [employer] 03/20/2021 ZFEN-D-12 -28-76-C / / [id number] Graft Iliac Leg Spirlz [id number] - [id number] Implanted:Qty: 1 on 04/15/2018 by Evens Hoyt MD at OR [facility] Left: Iliac [employer] 09/14/2020 [id number] / / [id number] Graft Iliac Leg Spirlz 94f04in - [id number] Implanted:Qty: 1 on 04/15/2018 by Evens Hoyt MD at OR [facility] Right: Iliac [employer] 11/09/2020 [id number] / / [id number] Transfixation Pin 6mm 294.950 - [id number] Implanted:Qty: 1 on 11/14/2019 by Mayank Friedman MD at OR [facility] Right: Ankle SYNTHES 294.950 / / Description:transfixation pi n Screw Schanz 5.8jwq550so - [id number] Implanted:Qty: 2 on 11/14/2019 by Mayank Friedman MD at OR [facility] Right: Leg Lower SYNTHES 294.786SH A / / Description:self drilling sh antz screws 5.0mm x 200mm Esthela Trauma 2.7 Lock Screw 16mm Implanted:Qty: 2 on 11/27/2019 by Donavan Ramirez Jr., MD at OR [facility] Right: Ankle ESTHELA : TRAUMA [id number] / / Description:hardware set Esthela Trauma 2.7 Lock Screw 14mm Implanted:Qty: 1 on 11/27/2019 by Donavan Ramirez Jr., MD at OR [facility] Right: Ankle ESTHELA : TRAUMA [id number] / / [place] Trauma 3.5 Screw 14mm Implanted:Qty: 1 on 11/27/2019 by Donavan Ramirez Jr., MD at OR [facility] Right: Ankle ESTHELA : TRAUMA [id number] / / Description:hardware set [place] Trauma 3.5 Screw 18mm Implanted:Qty: 1 on 11/27/2019 by Donavan Ramirez Jr., MD at OR [facility] Right: Ankle ESTHELA : TRAUMA [id number] / / Description:hardware set [place] 3.5 Lockscrew 16mm Implanted:Qty: 1 on 11/27/2019 by Donavan Ramirez Jr., MD at OR [facility] Right: Ankle [id number] / / [place] 2.0 Plate Implanted:Qty: 1 on 11/27/2019 by Donavan Ramirez Jr., MD at OR [facility] Right: Ankle 320851 / / [place] 2.0 Lock Screw Implanted:Qty: 2 on 11/27/2019 by Donavan Ramirez Jr., MD at [facility] Right: Ankle [id number] / / Esthela 2.0 Lock Screw Implanted:Qty: 1 on 11/27/2019 by Donavan Ramirez Jr., MD at OR [facility] Right: Ankle [id number] / / [place] 2.0 Lock Screw Implanted:Qty: 1 on 11/27/2019 by Donavan Ramirez Jr., MD at OR [facility] Right: Ankle 833131 / / Plate Fib 5h - [id number] Implanted:Qty: 1 on 11/27/2019 by Donavan Ramirez Jr., MD at OR [facility] Right: Ankle ESTHELA : TRAUMA / / [...] the patient have Health Care Power of Railroad Car Cleaning Supervisor? No Code Status History Code Status [...] the patient have Health Care Power of Railroad Car Cleaning Supervisor? No Full Code 02/17/2019 12:06 PM 02/18/2019 1:09 PM This order reflects the patients wishes and were consensually agreed upon. Question Answer Comments Discussion of Advance Directives occurred with: Not Discussed Does the patient have a Living Will? No Does the patient have Health Care Power of Railroad Car Cleaning Supervisor? No Care Teams Director Advertising Relationship Specialty Start Date End Date Buster Jessica MD [address] [place] [phone] PCP - General Family Medicine 09/11/22 documented as of this encounter
--- OUTSIDE RECORDS SUMMARY | 2023-12-11 18:44 | External Medical Summary | Summary of Care ---
Author Name Unknown Organization [facility] Address [address] [place] [address] Phone [phone] Care Team Providers Care Field Map Editor Name Role Phone Buster Jessica MD Primary Care P [facility] Reason for Visit * Reason Comments [facility]: Maintenance Encounter Details Date Type Department Care Team (Late st Contact Info) Description 11/21/2023 2:30 PM EDT Home Visit [facility] [place] [address] [place] [address] Lisa Tenorio RN [address] [place] [address] Allergies Active Allergy Reactions Criticality Noted Date Comments Atorvastatin Muscle pain,Unknown 01/18/2015 Medication intolerance, not an allergy Sacubitril-Valsartan Other (Please comment) 09/17/2020 Throat swelled Sacubitril High 07/20/2023 Other Reaction(s): THROAT SWELLING Simvastatin Low 06/23/2022 Other reaction(s): MUSCLE ACHES Valsartan High 07/20/2023 Other Reaction(s): THROAT SWELLING documented as of this encounter (statuses as of 11/22/2023) Medications Medication Sig Dispensed Refills Start Date End Date Status Torsemide 100 MG Oral Tablet (Demadex)Indications :Heart failure, systolic, due to CAD ([facility]) Take 1 tablet by mouth every morning. [...] Oral Tablet (pLAVix)Indications: PAD (peripheral artery disease) ([facility]),Coronary artery disease involving [place] coronary artery of [place] heart without angina pectoris TAKE ONE TABLET BY MOUTH ONCE DAILY 90 Tablet 3 03/13/2023 Active Famotidine 20 MG Oral Tablet (Pepcid) TAKE 1 TABLET BY MOUTH TWICE DAILY (MORNING AND AT BEDTIME) 180 Tablet 3 04/30/2023 Active Spironolactone 25 MG Oral Tablet (Aldactone)Indicatio ns:Coronary artery disease involving [place] coronary artery of [place] heart without angina pectoris,Heart failure, systolic, due to CAD ([facility]),Chronic ischemic heart disease,HTN, goal below 140/90 TAKE ONE TABLET BY MOUTH ONCE DAILY 90 Tablet 3 05/14/2023 Active Losartan Potassium 25 MG Oral Tablet (Cozaar)Indications: PAD (peripheral artery disease) ([facility]),Coronary artery disease involving [place] coronary artery of [place] heart without angina pectoris TAKE ONE TABLET BY MOUTH ONCE DAILY 90 Tablet 3 06/04/2023 Active Baclofen 20 MG Oral TabletIndications:Ch ronic bilateral low back pain without sciatica Take 1 Tablet by mouth 3 times a day as needed for Muscle spasms. 90 Tablet 5 06/06/2023 Active Repatha SureClick 140 MG/ML Subcutaneous Solution Auto-injector (evolocumab)Indicati ons:Obstructive sleep apnea,Heart failure, systolic, due to CAD ([facility]),Dyslipidemia, goal LDL below 70,Chronic ischemic heart disease,Tobacco use disorder,Coronary artery disease involving [place] coronary artery of [place] heart without angina pectoris Inject 140 mg [...] suspected opioid overdose. Seek immediate medical attention. [email or web address] 1 Each 3 09/15/2023 Active Additional Information [...] PD, group D, by GOLD 2017 classification ([facility]) Inhale 1 Puff by mouth in the morning and 1 Puff before bedtime. 180 Each 12 10/29/2023 Active Albuterol Sulfate (2.5 MG/3ML) 0.083% Inhalation Nebulization Solution (Proventil)Indicatio ns:COPD, group D, by GOLD 2017 classification ([facility]) Inhale 1 Vial via nebulizer every 4 [...] Pain, Severe. 120 Tablet 0 11/14/2023 Active [id number]-[id number]-edkc Ethyl Esters 1 GM Oral Capsule (Lovaza)Indications: Dyslipidemia, goal LDL below 70 Take 2 Capsules by mouth in the morning and 2 Capsules before bedtime. 120 Capsule 5 11/14/2023 Active Cephalexin 500 MG Oral Capsule (Keflex)Indications: COPD, group D, by GOLD 2017 classification ([facility]) Take 1 Capsule by mouth in the morning and 1 Capsule at noon and 1 Capsule before bedtime. Do all this for 10 days. COPD rescue kit. 30 Capsule 0 11/15/2023 Active Additional Information Patient not taking.Reported on 11/21/2023 documented as of this encounter (statuses as of 11/22/2023) Active Problems Problem Noted Date Diagnosed Date [...] fibrillation) 09/22/2021 Atherosclerotic heart diseas e of [place] coronary artery with other forms of angina [...] untreated, BMI 43.71 kg/m, NECK: 21 inches, [place] 01/27, sent for bipap titration study 01/11/11 case per [facility] completed ICD-10 update of inactive term Last Assessment & Plan: Waiting for new bipap machine BMI 35-39 ISOLATED (SEE ACTUAL BMI) 01/17/2010 Overview: Per Obesity Protocol, #19 BPH without obstruction/lower urinary tract symp toms 08/19/2009 Dyslipidemia, goal LDL below 70 07/21/2009 Overview: Per Lipid Taxonomy. documented as of this encounter (statuses as of 11/22/2023) Resolved Problems Problem Noted Date Diagnosed Date [...] 11/22/2020 10/12/2023 Coronary artery disease invo lving [place] coronary artery of [place] heart without angina pectoris 07/06/2020 10/12/2023 Chronic [...] 09/23/201305/17 Claudication 05/13/2013 10/12/2023 [employer] Other*[id number] 04/23/2012 09/12/2016 Overview: Study Title: Genomic Markers for Patients with Cardiovascular Disease Project # [id number] Accessioner: Comfort Aviles MD [phone] Impotence of organic origin 02/16/2011 01/10/2018 Shortness [...] as of this encounter (statuses as of 11/22/2023) Immunizations Name Administration Dates Next Due COVID-19 [...] Sign Reading Time Taken Comments Blood Pressure 118/62 11/21/2023 4:01 PM EDT Pulse 68 11/21/2023 4:01 PM EDT Temperature 36.8 C (98.2 F) 11/21/2023 4:01 PM ED T Respiratory Rate - - Oxygen Saturation 97% 11/21/2023 4:01 PM EDT room air Inhaled Oxygen Concentration - - Weight 114.8 kg (253 lb) 11/21/2023 4:01 PM EDT Height - - Body Mass Index 35.29 11/03/2023 1:00 AM EDT documented in this encounter Functional Status Functional Status Response Date of Assess ment Are you deaf or do you have serious difficulty hearing? Yes-very [place] 11/03/2023 Are you blind or do you [...] as of this encounter Progress Notes * Lisa Tenorio RN - 11/21/2023 3:57 PM EDT Images from the original note were not included. 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 PMHX: thoracic aortic aneurysm, PVD, LBBB, biventricular ICD, coronary implant & graft, AAA, a-fib, HF, cardiomyopathy, HTN, COPD, BRIAN, RLL pulmonary nodule, chronic back pain, basal cell carcinoma, squamous cell carcinoma of ala nasi, BPH, neuropathic pain in both feet, tobacco dependence, anxiety, alcohol use PC placed to pt, agreeable for visit. Arrived & was directed to dinning area. Pt was in his office & ambulated out to dinning area. Pt able to ambulate slowly. He is a little unsteady at first on his feet. Has 22 steps up into his apartment & has difficulty at times. He reports pain management had him stop taking prednisone r/t his back. Sunday couldn't get out of bed r/t ankle & knees hurt. He started prednisone - he is on day 4 of taper. Pt was to have back injection on 11.16.23 & was cx r/t being on prednisone. Per pain management note; 11.15.23 Did get refill of keflex for COPD rescue kit. 11.14.23 Has omega 3 - acid caps - has not started yet. 11.14.23 allopurinol 200 mg daily. Uric acid level on 11.02.23 was 11.4 BIPAP ordered by pcp on 10.19.23 - has not heard anything or received yet - not sure if he has to see sleep med again for it. Sleep med referral placed on 10.19.23 Walker ordered on 11.03.23 Sleep med apt on 01.15.24 Starts out patient therapy for balance on 11.23.23. Weight today 253 - is down from 264 at last visit. Physical Exam: BP 118/62 (BP Site: Left Arm, BP Position: Sitting) | Pulse 68 | Temp 36.8 C (98.2 F) (Tympanic) | Wt 114.8 kg (253 lb) | SpO2 97% Comment: room air | BMI 35.29 kg/m | BSA 2.4 m Pain 4 Physical Exam Constitutional: General: He is awake. HENT: Mouth/Throat: Mouth: Mucous membranes are moist. Cardiovascular: Rate and Rhythm: Normal rate. Pulmonary: Effort: Pulmonary effort is normal. Breath sounds: Normal breath sounds. Abdominal: General: Abdomen is flat. Bowel sounds are normal. Musculoskeletal: General: Swelling (right elbow - swollen - soft. non red.) present. Normal range of motion. Cervical back: Normal range of motion. Right lower leg: No edema. Left lower leg: No edema. Comments: Ambulated during visit. A little unsteady when first started but then was steady on feet Skin: General: Skin is warm and dry. Neurological: Mental Status: He is alert and oriented to person, place, and time. GCS: GCS eye subscore is 4. GCS verbal subscore is 5. GCS motor subscore is 6. Gait: Gait abnormal. Psychiatric: Attention and Perception: Attention normal. Mood and Affect: Mood is depressed. Behavior: Behavior normal. Behavior is cooperative. Thought Content: Thought content normal. Cognition and Memory: Cognition normal. Judgment: Judgment normal. Problems/Symptoms: Review of Systems HENT: Positive for hearing loss (is to hearing aides but he will no wear them). Respiratory: Positive for cough (NPC - chronic - smoker). Gastrointestinal: LBM today Endocrine: Positive for cold intolerance. Musculoskeletal: Positive for arthralgias, back pain (chronic - sees pain management) and joint swelling (having some joint pain r/t gout taking allpurinol. right elbow is swollen - reports decreasedsince starting on prednisone autumn). Medication Reconciliation: (See medication list) Does patient take medications as ordered: Yes Patient Well Being: PHQ2/9: No questionnaires available. [facility]-10 Completed this Visit: No. Routine visit and No falls since last visit Advanced Care Planning: No documentation, not discussed. Patient's Goals of Care: Live at least 2 more years to 50th anniversary Get out on boat again or water ski Stay out of hospital Reinforcement/Education: Educated on home safety: Create a fall proof home Clear floors of clutter, loose wires, throw rugs, and cords. Make sure halls, stairways, and entrances are well lit. Install a nightlight in your bedroom, hallway and bathroom. Install grab bars or handrails in the bathroom and on stairs. Use a non-skid tub/shower mat. Avoid climbing on a chair; instead use a step stool with a high handrail. Keep sidewalks and steps in good repair Keep steps and sidewalks free of snow and ice. Using aids to support and prevent falls If you have poor balance or have fallen in the past, consider additional support such as a cane or walker. Use a cane with good support and that is the proper length for you. Use a walker if a cane doesnt provide enough support. Avoid medications that increase the risk of falling by causing dizziness, change in sensation or slowed reflexes. Certain medicines may cause falls - blood pressure pills, heart medicines, water pills, or sleepingpills. Be sure to understand each medicine that you are taking and any side effects that may occur. Improve your balance and flexibility with muscle strengthening exercises. Ask your health care provider for some exercises that will be right for you. Reinforced safety education and fall prevention. and Reinforced medication regimen. Timing., Dosing., and Purspose. Treatment/Plan: Right elbow edema - picture obtained & sent to Erlinda Clark PA-C. - possible olecranon bursitis - need to see ortho - could drain it or he can try conservative measures with an elbow protector, aka spider pad -pt defers any of the suggested options. Reports he will let [facility] know if it gets worse or he would like to pursue any of the suggested tx options. -routed chart to scheduling to assist in coordinating walker & BIPAP that was ordered last month. -discussed importance of going to sleep med apt in January HF Reviewed HF symptom monitoring: -Weigh self daily in am, post-void and record -Do not add salt to food, avoid foods high in sodium -Limit fluids to 2 liters per day -Report the following: ->2 lb weight gain in one day or 5 lbs in a week to PCP -increased edema in feet, abdomen or hands -increased SOB and cough, especially if at night -increased fatigue or vertigo --Tobacco: Assess readiness to quit - not ready to quit Discussed health risks of smoking: Smoking is the number one cause of preventable in the [place] almost a half a million people every year in the [place] from smoking-related diseases. Benefits from Quitting: Decreased risk for heart attack, improved blood circulation and improved lung function, decreased risk for developing CAD, decreased risk for stroke, decreased risk for lung cancer, and other cancers like mouth, esophagus, bladder, cervix and pancreas. Food tastes better, sense of smell and taste improve. Your breath, clothes, hair and nails do not smell of cigarettes. You save money. More energy. Identify barriers to quitting -- does not want to quit Home Interventions Provided: Reinforced current Plan of Care, including self-management and medication regimen Patient's 'Red Flags': Weight gain 2-3lbs in one day & 5lbs in one week Increased trouble breathing Swelling in feet or legs - shoes get tight Patient Needs to Remember: Call [facility] or PCP with red flags or urgent medical need Referrals Needed: Other nine Follow Up: Is there cellular connectivity/connectivity in the home? Yes Does the patient have internet in the home? Yes Patient encouraged to call the intake phone number for all urgent but not emergent issues. Is the patient new to [facility] within the last 30 days? No, Assess appropriateness for upcoming telehealth visits. Cancel telehealth visits & schedule home visit with care team supervisor(s)as indicated. Provider is in agreement with Plan of Care: Yes Scheduled to follow up with patient in ~4-6 weeks. Lisa Tenorio RN 11/21/2023 3:57 PM documented in this encounter Plan of Treatment Upcoming Encounters Date Type Department Care Team ([facility] Contact Info) Description 11/23/2023 1:45 PM EDT Rehab Services Physical Therapy [facility] [address] [place] [phone] Marleni Quarles, PT [address] [place] [address] 11/28/2023 10:15 AM EDT Scheduled Telephone [facility] [place] [address] [place] [address] Coordinator, [facility] [place] [address] [place] [address] 12/10/2023 9:15 AM EDT Hospital Encounter [facility], Operating Room [facility] [address] [place], [place] [phone] Freeman Beaulieu, DO [address] [place], [place] [phone] 12/10/2023 9:15 AM EDT - 12/10/2023 9:40 AM EDT Surgery [facility], Operating Room [facility] [address] [place], [place] [phone] Freeman Beaulieu, DO [address] [place], [place] [phone] INJECTION SACROILIAC JOINT 12/12/2023 9:00 AM EDT Home Visit [facility], [facility] [address] [place] [address] Xochitl Marina LCSW [address] [place] [address] 12/13/2023 9:50 AM EDT Office Visit [address] [phone] Buster Jessica MD [address] [place] [address] 12/20/2023 1:30 PM EDT Telemedicine [facility], [facility] [address] [place] [address] Grisel Richter CRNP [address] [place] [address] Clary Eastman, Community Health Client Finance Analyst [facility] [place] [address] 01/01/2024 10:00 AM EDT Home Visit [facility] [place] [address] [place] [address] Lisa Tenorio RN [address] [facility] [address] 01/15/2024 10:40 AM EDT Office Visit [facility] [address] [facility] [place] [address] Clair Quarles DO [address] [place] [address] 04/22/2024 9:30 AM EDT Cardiac Studies [facility], [facility] [address] [place] [address] [facility] [address] [facility] [phone] 05/19/2024 9:30 AM EDT Appointment Radiology, [address] [phone] Scheduled Procedures Name Priority Associated Diagnoses Date/Ti me INJECTION SACROILIAC JOINT Inflammation of sacroiliac joint (HCC) 12/10/2023 9:15 AM EDT COLONOSCOPY FLEXIBLE PROXIMAL DIAGNOSTIC Recall History of colon polyps Health Maintenance Due Date Last Done Comments *ADVANCE DIRECTIVE NOT ON FILE 05/28/2019 COVID-19 Vaccine ( season) 2023 11/08/2020, 10/08/2020 DISCUSS TOBACCO CESSATION (REFER TO SMARTSET #1895) 06/02/2023 06/02/2022, 07/21/2020 Depression, Most Recent Score [...] this encounter Medical Devices Implanted Type Area Phys Ther Device Identifier Shelf Expiration Date Model / Serial / Lot 32mm X 109mm, Zenith Fenestrated Aaa Endovascular Proximal Body Graft, Two Proximal Internal Stent Implanted:Qty: 1 on 04/15/2018 by Evens Hoyt MD at [place] [facility] N/A: Aorta [employer] 03/20/2021 ZFEN-P-2- [id number] / / [id number] Stent Graft [id number] - [id number] - [id number] Implanted:Qty: 1 on 04/15/2018 by Evens Hoyt MD at [place] [facility] Right: Renal Artery GETINGE : JULIANNE 11/30/2020 [id number] / [id number] / [id number] Stent Graft [id number] - [id number] - [id number] Implanted:Qty: 1 on 04/15/2018 by Evens Hoyt MD at [place] [facility] Right: Renal Artery GETINGE : MAQUEAugustin 11/30/2020 [id number] / [id number] / [id number] 28mm X 76mm Distal, 12mm Ipsilateral Leg, Zenith Fenestrated Aaa Endovascular Distal Bifurcated Body Graft Implanted:Qty: 1 on 04/15/2018 by Evens Hoyt MD at [place] [facility] N/A: Aorta [employer] 03/20/2021 ZFEN-D-12 -28-76-C / / [id number] Graft Iliac Leg Spirlz 18l79rz - [id number] Implanted:Qty: 1 on 04/15/2018 by Evens Hoyt MD at [place] [facility] Left: Iliac [employer] 09/14/2020 [id number] / / [id number] Graft Iliac Leg Spirlz 48q88rh - [id number] Implanted:Qty: 1 on 04/15/2018 by Evens Hoyt MD at [place] [facility] Right: Iliac [employer] 11/09/2020 [id number] / / [id number] Transfixation Pin 6mm 294.950 - [id number] Implanted:Qty: 1 on 11/14/2019 by Mayank Friedman MD at OR [facility] Right: Ankle SYNTHES 294.950 / / Description:transfixation pi n Screw Schanz 5.2isp731kg - [id number] Implanted:Qty: 2 on 11/14/2019 by Mayank Friedman MD at OR [facility] Right: Leg Lower SYNTHES 294.786SH A / / Description:self drilling sh antz screws 5.0mm x 200mm [place] Trauma 2.7 Lock Screw 16mm Implanted:Qty: 2 on 11/27/2019 by Donavan Ramirez Jr., MD at [place] [facility] Right: Ankle ESTHELA : TRAUMA [id number] / / Description:hardware set [place] Trauma 2.7 Lock Screw 14mm Implanted:Qty: 1 on 11/27/2019 by Donavan Ramirez Jr., MD at [place] [facility] Right: Ankle ESTHELA : TRAUMA [id number] / / [place] Trauma 3.5 Screw 14mm Implanted:Qty: 1 on 11/27/2019 by Donavan Ramirez Jr., MD at [place] [facility] Right: Ankle ESTHELA : TRAUMA [id number] / / Description:hardware set [place] Trauma 3.5 Screw 18mm Implanted:Qty: 1 on 11/27/2019 by Donavan Ramirez Jr., MD at [place] [facility] Right: Ankle ESTHELA : TRAUMA [id number] / / Description:hardware set [place] 3.5 Lockscrew 16mm Implanted:Qty: 1 on 11/27/2019 by Donavan Ramirez Jr., MD at [place] [facility] Right: Ankle [id number] / / [place] 2.0 Plate Implanted:Qty: 1 on 11/27/2019 by Donavan Ramirez Jr., MD at [place] [facility] Right: Ankle [id number] / / [place]hel[place] 2.0 Lock Screw Implanted:Qty: 2 on 11/27/2019 by Donavan Ramirez Jr., MD at [place] [facility] Right: Ankle [id number] / / [place] 2.0 Lock Screw Implanted:Qty: 1 on 11/27/2019 by Donavan Ramirez Jr., MD at [place] [facility] Right: Ankle [id number] / / [place] 2.0 Lock Screw Implanted:Qty: 1 on 11/27/2019 by Donavan Ramirez Jr., MD at [place] [facility] Right: Ankle [id number] / / Plate Fib 5h - [id number] Implanted:Qty: 1 on 11/27/2019 by Donavan Ramirez Jr., MD at [place] [facility] Right: Ankle ESTHELA : TRAUMA / / [...] the patient have Health Care Power of Materials Associate? No Code Status History Code Status Date [...] the patient have Health Care Power of Materials Associate? No Full Code 02/17/2019 12:06 PM 02/18/2019 1:09 PM This order reflects the patients wishes and were consensually agreed upon. Question Answer Comments Discussion of Advance Directives occurred with: Not Discussed Does the patient have a Living Will? No Does the patient have Health Care Power of Materials Associate? No Care Teams Field Map Editor Relationship Specialty Start Date End Date Buster Jessica MD [address] [place] [address] PCP - General Family Medicine 09/11/22 documented as of this encounter"
--- OUTSIDE RECORDS SUMMARY | 2023-12-11 18:44 | External Medical Summary | Summary of Care ---
Author Name Unknown Organization [facility] Address [address] [place] [address] Phone [phone] Care Team Providers Care Liquefaction Supervisor Name Role Phone Buster Jessica MD Primary Care P [facility] Reason for Visit * Reason Onset Date Comments [facility]: Maintenance 11/21/2023 Encounter Details Date Type Department Care Team (Late st Contact Info) Description 11/21/2023 9:45 AM EDT Scheduled Telephone [facility], [place] [address] [place] [address] Coordinator, [facility] [address] [place] [address] Allergies Active Allergy Reactions Criticality Noted Date [...] (Demadex)Indications :Heart failure, systolic, due to CAD ([facility]) Take 1 tablet by mouth [...] Oral Tablet (pLAVix)Indications: PAD (peripheral artery disease) ([facility]),Coronary artery disease involving [place] coronary artery of [place] heart without angina pectoris TAKE ONE TABLET BY MOUTH ONCE DAILY 90 Tablet 3 03/13/2023 Active Famotidine 20 MG Oral Tablet (Pepcid) TAKE 1 TABLET BY MOUTH TWICE DAILY (MORNING AND AT BEDTIME) 180 Tablet 3 04/30/2023 Active Spironolactone 25 MG Oral Tablet (Aldactone)Indicatio ns:Coronary artery disease involving [place] coronary artery of [place] heart without angina pectoris,Heart failure, systolic, due to CAD ([facility]),Chronic ischemic heart disease,HTN, goal below 140/90 TAKE ONE TABLET BY MOUTH ONCE DAILY 90 Tablet 3 05/14/2023 Active Losartan Potassium 25 MG Oral Tablet (Cozaar)Indications: PAD (peripheral artery disease) ([facility]),Coronary artery disease involving [place] coronary artery of [place] heart without angina pectoris TAKE ONE [...] sleep apnea,Heart failure, systolic, due to CAD ([facility]),Dyslipidemia, goal LDL below 70,Chronic ischemic heart disease,Tobacco use disorder,Coronary artery disease involving [place] coronary artery of [place] heart without angina pectoris Inject 140 [...] suspected opioid overdose. Seek immediate medical attention. [email or web address] 1 Each 3 09/15/2023 Active Additional Information [...] PD, group D, by GOLD 2017 classification ([facility]) Inhale 1 Puff by mouth in the morning and 1 Puff before bedtime. 180 Each 12 10/29/2023 Active Albuterol Sulfate (2.5 MG/3ML) 0.083% Inhalation Nebulization Solution (Proventil)Indicatio ns:COPD, group D, by GOLD 2017 classification ([facility]) Inhale 1 Vial via nebulizer [...] Pain, Severe. 120 Tablet 0 11/14/2023 Active Gzypk-5-cwmq Ethyl Esters 1 GM Oral Capsule (Lovaza)Indications: Dyslipidemia, goal LDL below 70 Take 2 Capsules by mouth in the morning and 2 Capsules before bedtime. 120 Capsule 5 11/14/2023 Active Cephalexin 500 MG Oral Capsule (Keflex)Indications: COPD, group D, by GOLD 2017 classification ([facility]) Take 1 Capsule by mouth [...] fibrillation) 09/22/2021 Atherosclerotic heart diseas e of [place] coronary artery with other forms of [...] untreated, BMI 43.71 kg/m, NECK: 21 inches, [place] 01/27, sent for bipap titration study 01/11/11 [...] 11/22/2020 10/12/2023 Coronary artery disease invo lving [place] coronary artery of [place] heart without angina pectoris 07/06/2020 10/12/2023 [...] 09/23/201305/17 Claudication 05/13/2013 10/12/2023 [employer] Other*[id number] 04/23/2012 09/12/2016 Overview: Study Title: Genomic Markers for Patients with Cardiovascular Disease Project # [id number] Manager Media: Comfort Aviles MD [phone] Impotence of organic origin 02/16/2011 01/10/2018 Shortness [...] 2:28 PM EDT Sexual Orientation Straight 11/05/2018 2 :28 PM EDT Job Start Date Occupation Industry Not on file Not on file Not on file documented as of this encounter Functional Status Functional Status Response Date of Assess ment Are you deaf or do you have serious difficulty hearing? Yes-very [place]MAHA 11/03/2023 Are you blind or do you [...] encounter Miscellaneous Notes * Telephone Encounter - Yen Bell RN - 11/21/2023 11:20 AM EDT [facility] Telephonic Nurse Follow-Up Call [facility] Subprogram: Focused Care Management (3-9 months) Follow Up Call Type: 48 hour follow up Acute issue requiring follow-up call: Other: 24/ 48 hr f/u severe pain from gout- did the pt go to the ED on 11/18? Objective: 11/16/2023 10:11 AM 11/14/2023 9:27 AM 11/03/2023 3:30 PM 11/03/2023 9:00 AM 11/03/2023 8:18 AM VITALS ACROSS ENCOUNTERS BP 119/67 116/74 94/56 107/76 Pulse 82 93 76 77 75 Weight 116.8 kg BMI 35.91 kg/m2 Remote Patient Monitoring: NONE Oxygen Needs: NO supplemental oxygen needs identified DME Needs: NO DME needs identified Medications: New medication(s) added: Keflex, Allopurinol, Hydrocodone, Prednisone taper Subjective: Condition Status: Improvement in symptoms but not at baseline Current Concerns: Spoke with pt who states that his joints which are affected by the gout are not red, not hot, not swollen. His finger is warm but not much heat. He only needed to take one Hydrocodone yesterday for the pain. Prednisone has been effective with providing the pt relief. Pain 11/13 today. Disposition: RNCM visit scheduled- RNCM appt for today had been previously scheduled Future Visits Scheduled: Future Appointments-next 60 days Date/Time Provider Specialty Dept Phone 11/21/2023 2:30 PM Lisa Tenorio RN [facility] [phone] 11/23/2023 1:45 PM (Arrive by 1:30 PM) Marleni Quarles, IBETH [facility] [phone] 12/12/2023 9:00 AM Xochitl Marina LCSW [facility] [phone] 12/13/2023 9:50 AM (Arrive by 9:35 AM) Buster Jessica MD Family Medicine [phone] 01/15/2024 10:40 AM (Arrive by 10:25 AM) Clair Quarles DO Sleep Disorders [phone] 04/22/2024 9:30 AM (Arrive by 9:15 AM) [facility] Cardiology [phone] 05/19/2024 9:[facility] [phone] Yen Bell RN documented in this encounter Plan of Treatment Upcoming Encounters Date Type Department Care Team (Latest Contact Info) Description 11/21/2023 2:30 PM EDT Home Visit [facility], [address] [place] [address] Lisa Tenorio RN [address] [place] [address] 11/23/2023 1:45 PM EDT Rehab Services [facility] [address] [facility] [address] [place] [address] Marleni Quarles, PT [address] [place] [address] 12/10/2023 9:15 AM EDT Hospital Encounter [facility], Operating Room [facility] [address] [place] [phone] Freeman Beaulieu, DO [address] [place] [phone] 12/10/2023 9:15 AM EDT - 12/10/2023 9:40 AM EDT Surgery OR [facility], Operating Room [facility] [address] [place] [phone] Freeman Beaulieu, DO [address] [place] [phone] INJECTION SACROILIAC JOINT 12/12/2023 9:00 AM EDT Home Visit [facility], [place] [address] [place] [address] Xochitl Marina, [facility] [address] [place] [address] 12/13/2023 9:50 AM EDT Office Visit Family [facility] [address] [place] [address] Buster Jessica MD [address] [place] [address] 01/15/2024 10:40 AM EDT Office Visit Sleep Disorders Ctr [facility] [address] [place] [phone] Clair Quarles DO [address] [place] [address] 04/22/2024 9:30 AM EDT Cardiac Studies Cardiology, [facility] [address] [place] [address] [place], Pac[facility] [address] [place] [address] 05/19/2024 9:30 AM EDT Appointment Radiology, [id number] [place] [address] Scheduled Procedures Name Priority Associated Diagnoses Date/Ti me INJECTION SACROILIAC JOINT Inflammation of sacroiliac joint (HCC) 12/10/2023 9:15 AM EDT COLONOSCOPY FLEXIBLE PROXIMAL DIAGNOSTIC Recall History of colon polyps Health Maintenance Due Date Last Done Comments *ADVANCE DIRECTIVE NOT ON FILE 05/28/2019 COVID-19 Vaccine ( season) 2023 11/08/2020, 10/08/2020 DISCUSS TOBACCO CESSATION (REFER TO SMARTSET #5376) 06/02/2023 06/02/2022, 07/21/2020 Depression, Most Recent Score [...] this encounter Medical Devices Implanted Type Area Store Worker Device Identifier Shelf Expiration Date Model / Serial / Lot 32mm X 109mm, Zenith Fenestrated Aaa Endovascular Proximal Body Graft, Two Proximal Internal Stent Implanted:Qty: 1 on 04/15/2018 by Evens oHyt MD at OR [facility] N/A: Aorta [facility] 03/20/2021 ZFEN-P-2- [id number] / / [id number] Stent Graft [id number] - [id number] - [id number] Implanted:Qty: 1 on 04/15/2018 by Evens Hoyt MD at OR [facility] Right: Renal Artery GETINGE : MAQUET 11/30/2020 15969 / [id number] / [id number] Stent Graft [id number] - [id number] - [id number] Implanted:Qty: 1 on 04/15/2018 by Evens Hoyt MD at OR [facility] Right: Renal Artery GETINGE : MAQUET 11/30/2020 [id number] / [id number] / [id number] 28mm X 76mm Distal, 12mm Ipsilateral Leg, Zenith Fenestrated Aaa Endovascular Distal Bifurcated Body Graft Implanted:Qty: 1 on 04/15/2018 by Evens Hoyt MD at OR [facility] N/A: Aorta [employer] 03/20/2021 ZFEN-D-12 -28-76-C / / [id number] Graft Iliac Leg Spirlz 10x25zu - [id number] Implanted:Qty: 1 on 04/15/2018 by Evens Hoyt MD at OR [facility] Left: Iliac [employer] 09/14/2020 [id number] / / [id number] Graft Iliac Leg Spirlz [id number] - [id number] Implanted:Qty: 1 on 04/15/2018 by Evens Hoyt MD at OR [facility] Right: Iliac [employer] 11/09/2020 [id number] / / [id number] Transfixation Pin 6mm 294.950 - [id number] Implanted:Qty: 1 on 11/14/2019 by Mayank Friedman MD at OR [facility] Right: Ankle SYNTHES 294.950 / / Description:transfixation pi n Screw Schanz [id number] - [id number] Implanted:Qty: 2 on 11/14/2019 by Mayank Friedman MD at OR [facility] Right: Leg Lower SYNTHES 294.786SH A / / Description:self drilling sh antz screws 5.0mm x 200mm [place] Trauma 2.7 Lock Screw 16mm Implanted:Qty: 2 on 11/27/2019 by Donavan Ramirez Jr., MD at OR [facility] Right: Ankle ESTHELA : TRAUMA [id number] / / Description:hardware set Esthela Trauma 2.7 Lock Screw 14mm Implanted:Qty: 1 on 11/27/2019 by Donavan Ramirez Jr., MD at OR [facility] Right: Ankle ESTHELA : TRAUMA [id number] / / Esthela Trauma 3.5 Screw 14mm Implanted:Qty: 1 on 11/27/2019 by Donavan Ramirez Jr., MD at OR [facility] Right: Ankle ESTHELA : TRAUMA [id number] / / Description:hardware set Esthela Trauma 3.5 Screw 18mm Implanted:Qty: 1 on 11/27/2019 by Donavan Ramirez Jr., MD at [facility] Right: Ankle ESTHELA : TRAUMA [id number] / / Description:hardware set Esthela 3.5 Lockscrew 16mm Implanted:Qty: 1 on 11/27/2019 by Donavan Ramirez Jr., MD at OR [facility] Right: Ankle [id number] / / [place] 2.0 Plate Implanted:Qty: 1 on 11/27/2019 by Donavan Ramirez Jr., MD at OR [facility] Right: Ankle [id number] / / [place] 2.0 Lock Screw Implanted:Qty: 2 on 11/27/2019 by Donavan Ramirez Jr., MD at [facility] Right: Ankle [id number] / / [place] 2.0 Lock Screw Implanted:Qty: 1 on 11/27/2019 by Donavan Ramirez Jr., MD at OR [facility] Right: Ankle [id number] / / [place] 2.0 Lock Screw Implanted:Qty: 1 on 11/27/2019 by Donavan Ramirez Jr., MD at OR [facility] Right: Ankle [id number] / / Plate Fib 5h - [id number] Implanted:Qty: 1 on 11/27/2019 by Donavan Ramirez Jr., MD at OR [facility] Right: Ankle ESTHELA [...] the patient have Health Care Power of Turning Sander Tender? No Code Status History Code Status Date [...] the patient have Health Care Power of Turning Sander Tender? No Full Code 02/17/2019 12:06 PM 02/18/2019 1:09 PM This order reflects the patients wishes and were consensually agreed upon. Question Answer Comments Discussion of Advance Directives occurred with: Not Discussed Does the patient have a Living Will? No Does the patient have Health Care Power of Turning Sander Tender? No Care Teams Liquefaction Supervisor Relationship Specialty Start Date End Date Buster Jessica MD [address] [place] [address] PCP - General Family Medicine 09/11/22 documented as of this encounter
--- OUTSIDE RECORDS SUMMARY | 2023-12-11 18:44 | External Medical Summary | Summary of Care ---
Author Name Unknown Organization [facility] Address [address] [place] [address] Phone [phone] Care Team Providers Care Night Clerk Name Role Phone Buster Montgomery MD Primary Care P rovider Reason for Visit * Reason Comments eRx-Medication Refill Encounter Details Date Type Department Care Team (Late st Contact Info) Description 11/19/2023 Refill Family Practice [address] [phone] Buster Montgomery MD [address] [place] [id number] Heart failure, systolic, due to CAD (HCC) Allergies Active Allergy Reactions Criticality Noted Date [...] Oral Tablet (pLAVix)Indication s:PAD (peripheral artery disease) ([facility]),Coronary artery disease involving [place] coronary artery of [place] heart without angina pectoris TAKE ONE TABLET BY MOUTH ONCE DAILY 90 Tablet 3 3 Active Famotidine 20 MG Oral Tablet (Pepcid) TAKE 1 TABLET BY MOUTH TWICE DAILY (MORNING AND AT BEDTIME) 180 Tablet 3 3 Active Spironolactone 25 MG Oral Tablet (Aldactone)Indicat ions:Coronary artery disease involving [place] coronary artery of [place] heart without angina pectoris,Heart failure, systolic, due to CAD ([facility]),Chronic ischemic heart disease,HTN, goal below 140/90 TAKE ONE TABLET BY MOUTH ONCE DAILY 90 Tablet 3 3 Active Losartan Potassium 25 MG Oral Tablet (Cozaar)Indication s:PAD (peripheral artery disease) ([facility]),Coronary artery disease involving [place] coronary artery of [place] heart without angina pectoris TAKE ONE TABLET BY MOUTH ONCE DAILY 90 Tablet 3 3 Active Baclofen 20 MG Oral TabletIndications: Chronic bilateral low back pain without sciatica Take 1 Tablet by mouth 3 times a day as needed for Muscle spasms. 90 Tablet 5 3 Active Repatha SureClick 140 MG/ML Subcutaneous Solution Auto-injector (evolocumab)Indica tions:Obstructive sleep apnea,Heart failure, systolic, due to CAD ([facility]),Dyslipidemia , goal LDL below 70,Chronic ischemic heart disease,Tobacco use disorder,Coronary artery disease involving [place] coronary artery of [place] heart without angina pectoris Inject 140 mg (1 pen) under the skin every 14 days. 6 mL 3 3 Active Metoprolol Succinate ER 50 MG Oral Tablet Extended Release 24 Hour (Toprol XL)Indications:Per sistent atrial fibrillation (HCC),Acute on chronic systolic (congestive) heart failure ([facility]) One tablet by mouth daily [...] suspected opioid overdose. Seek immediate medical attention. [email or web address] 1 Each 3 4 Active Additional Information Patient not taking.Reported on 10/31/2023 Desvenlafaxine Succinate ER 100 MG Oral Tablet Extended Release 24 Hour (Pristiq)Indicatio ns:Moderate episode of recurrent major depressive disorder (HCC) Take 1 Tablet by mouth in the morning. 30 Tablet 11 4 Active metOLazone 2.5 MG Oral Tablet (Zaroxolyn)Indicat ions:Ischemic cardiomyopathy Take 1 Tablet by mouth once a week. take 30 minutes prior to torsemide 4 Tablet 5 4 Active Fluticasone-Salmet sixto 250-50 MCG/ACT Inhalation Aerosol Powder Breath Activated (Wixela Inhub)Indications: COPD, group D, by GOLD 2017 classification ([facility]) Inhale 1 Puff by mouth in the morning and 1 Puff before bedtime. 180 Each 12 4 Active Albuterol Sulfate (2.5 MG/3ML) 0.083% Inhalation Nebulization Solution (Proventil)Indicat ions:COPD, group D, by GOLD 2017 classification ([facility]) Inhale 1 Vial via [...] every evening. 180 Capsule 1 4 Active Potassium Chloride ER 10 MEQ Oral Tablet Extended ReleaseIndications :HTN, goal below 140/90,Paroxysmal atrial fibrillation (HCC),LBBB (left bundle branch block) Take 2 Tablets by mouth in the morning and 2 Tablets before bedtime. 360 Tablet 1 4 Active predniSONE 20 MG Oral Tablet (Deltasone)Indicat ions:Acute drug-induced gout of multiple sites Take 2 Tablets by mouth daily for 5 days, THEN 1 Tablet daily for 7 days, THEN 0.5 Tablets daily for 8 days. 21 Tablet 0 4 12/04/19 24 Active Allopurinol 100 MG Oral Tablet (Zyloprim)Indicati ons:Acute drug-induced gout of multiple sites Take 2 Tablets by mouth in the morning. 60 Tablet 5 4 Active HYDROcodone-Acetam inophen 7.5-325 MG Oral TabletIndications: Chronic bilateral low back pain without sciatica,Acute drug-induced gout of right ankle Take 1 Tablet by mouth every 6 hours as needed for Pain, Severe. 120 Tablet 0 4 Active Lypea-0-myll Ethyl Esters 1 GM Oral Capsule (Lovaza)Indication s:Dyslipidemia, goal LDL below 70 Take 2 Capsules by mouth in the morning and 2 Capsules before bedtime. 120 Capsule 5 4 Active Cephalexin 500 MG Oral Capsule (Keflex)Indication s:COPD, group D, by GOLD 2017 classification ([facility]) Take 1 Capsule by mouth in the morning and 1 Capsule at noon and 1 Capsule before bedtime. Do all this for 10 days. COPD rescue kit. 30 Capsule 0 4 11/25/19 24 Active Additional Information Patient not taking.Reported on 11/21/2023 Torsemide 100 MG Oral Tablet (Demadex)Indicatio ns:Heart failure, systolic, due to CAD ([facility]) Take 1 tablet by mouth every morning. Take an additional tablet on Sunday, Sunday and Sunday afternoon only. 150 Tablet 3 4 Active Torsemide 100 MG Oral Tablet (Demadex)Indicatio ns:Heart failure, systolic, due to CAD (HCC) Take 1 tablet by mouth every morning. Take 1 tab on Sunday, Sunday and Sunday afternoon. 150 Tablet 3 3 11/22/19 24 Discontinued documented as of this encounter [...] fibrillation) 09/22/2021 Atherosclerotic heart diseas e of [place] coronary artery with other forms of angina [...] untreated, BMI 43.71 kg/m, NECK: 21 inches, [place] 01/27, sent for bipap titration study 01/11/11 [...] 11/22/2020 10/12/2023 Coronary artery disease invo lving [place] coronary artery of [place] heart without angina pectoris 07/06/2020 10/12/2023 Chronic [...] 09/23/201305/17 Claudication 05/13/2013 10/12/2023 [employer] Other*[id number] 04/23/2012 09/12/2016 Overview: Study Title: Genomic Markers for Patients with Cardiovascular Disease Project # [id number] Securities Attorney: Comfort Aviles MD [phone] Impotence of organic origin 02/16/2011 01/10/2018 Shortness [...] do you have serious difficulty hearing? Yes-very [place] 11/03/2023 Are you blind or do [...] encounter Miscellaneous Notes * Telephone Encounter - Buster Montgomery MD - 11/22/2023 7:24 PM EDTSigned Prescriptions: Disp Refills Torsemide 100 MG Oral Tablet (Demadex) 150 Ta*3 Sig: Take 1 tablet by mouth every morning. Take an additional tablet on Sunday, Sunday and Sunday afternoon only. Authorizing Provider: BUSTER MONTGOMERY * Telephone Encounter - Tg Foster [facility] - 11/21/2023 6:31 AM EDT Pending Prescriptions: Disp Refills Torsemide 100 MG Oral Tablet (Demadex) 150 Ta*3 Sig: Take 1 tablet by mouth every morning. Take an additional tablet on Sunday, Sunday and Sunday afternoon only. * Telephone Encounter - Tg Foster RP - 11/21/2023 6:31 AM EDT NA Date Value Ref Range Status 11/03/2023 133 (L) 135 - 146 mmol/L Final 11/02/2023 130 (L) 135 - 146 mmol/L Final documented in this encounter Plan of Treatment Upcoming Encounters Date Type Department Care Team ([facility] st Contact Info) Description 11/23/2023 1:45 PM EDT Rehab Services Physical Therapy [address] [place] [phone] Marleni Quarles, PT [address] [place] [address] 11/28/2023 10:15 AM EDT Scheduled Telephone [facility] [place] [address] [place] [address] Coordinator, [facility] [address] [place] [address] 12/10/2023 9:15 AM EDT Hospital Encounter [facility], Operating Room [facility] [address] [place], [place] [phone] Freeman Beaulieu, DO [address] [place], [place] [phone] 12/10/2023 9:15 AM EDT - 12/10/2023 9:40 AM EDT Surgery OR [facility], Operating Room [facility] [address] [place] [phone] Freeman Beaulieu, DO [address] [place] [phone] INJECTION SACROILIAC JOINT 12/12/2023 9:00 AM EDT Home Visit [facility], [facility] [address] [place] [address] Xochitl Marina LCSW [address] [place] [address] 12/13/2023 9:50 AM EDT Office Visit [address] [phone] Buster Montgomery MD [address] [place] [address] 12/20/2023 1:30 PM EDT Telemedicine [facility] [address] [place] [address] Grisel Richter CRNP [address] [place] [address] Clary Eastman, [facility] [employer] [address] [place] [address] 01/01/2024 10:00 AM EDT Home Visit [facility] [place] [address] [place] [address] Lisa Tenorio RN [address] [place] [address] 01/15/2024 10:40 AM EDT Office Visit [facility] [address] [place] [facility] [place] [phone] Clair Quarles DO [address] [place] [address] 04/22/2024 9:30 AM EDT Cardiac Studies Cardiology, [facility] [address] [facility] [place] [address] [facility] [address] [address] 05/19/2024 9:30 AM EDT Appointment Radiology, [address] [address] Scheduled Procedures Name Priority Associated [...] this encounter Medical Devices Implanted Type Area Interventional Radiology Technologist Device Identifier Shelf Expiration Date Model / Serial / Lot 32mm X 109mm, Zenith Fenestrated Aaa Endovascular Proximal Body Graft, Two Proximal Internal Stent Implanted:Qty: 1 on 04/15/2018 by Evens Hoyt MD at OR [facility] N/A: Aorta [employer] 03/20/2021 ZFEN-P-2- [id number] / / [id number] Stent Graft [id number] - [id number] - [id number] Implanted:Qty: 1 on 04/15/2018 by Evens Hoyt MD at OR [facility] Right: Renal Artery GETINGE : MAEMERITAT 11/30/2020 [id number] / [id number] / [id number] Stent Graft [id number] - [id number] - [id number] Implanted:Qty: 1 on 04/15/2018 by Evens Hoyt MD at OR [facility] Right: Renal Artery GETINGE : MAQUET 11/30/2020 [id number] / [id number] / [id number] 28mm X 76mm Distal, 12mm Ipsilateral Leg, Zenith Fenestrated Aaa Endovascular Distal Bifurcated Body Graft Implanted:Qty: 1 on 04/15/2018 by Evens Hoyt MD at OR [facility] N/A: Aorta [employer] 03/20/2021 ZFEN-D-12 -28-76-C / / [id number] Graft Iliac Leg Spirlz 62o24tc - [id number] Implanted:Qty: 1 on 04/15/2018 by Evens Hoyt MD at OR [facility] Left: Iliac [employer] 09/14/2020 [id number] / / [id number] Graft Iliac Leg Spirlz 61y34ru - [id number] Implanted:Qty: 1 on 04/15/2018 by Evens Hoyt MD at OR [facility] Right: Iliac [employer] 11/09/2020 [id number] / / [id number] Transfixation Pin 6mm 294.950 - [id number] Implanted:Qty: 1 on 11/14/2019 by Mayank Friedman MD at OR [facility] Right: Ankle SYNTHES 294.950 / / Description:transfixation pi n Screw Schanz 5.0sjc767re - [id number] Implanted:Qty: 2 on 11/14/2019 by Mayank Friedman MD at OR [facility] Right: Leg Lower SYNTHES 294.786SH A / / Description:self drilling sh antz screws 5.0mm x 200mm Estheal Trauma 2.7 Lock Screw 16mm Implanted:Qty: 2 on 11/27/2019 by Donavan Ramirez Jr., MD at OR [facility] Right: Ankle ESTHELA : TRAUMA [id number] / / Description:hardware set [place] Trauma 2.7 Lock Screw 14mm Implanted:Qty: 1 on 11/27/2019 by Donavan Ramirez Jr., MD at OR [facility] Right: Ankle ESTHELA : TRAUMA [id number] / / Esthela Trauma 3.5 Screw 14mm Implanted:Qty: 1 on 11/27/2019 by Donavan Ramirez Jr., MD at OR [facility] Right: Ankle ESTHELA : TRAUMA [id number] / / Description:hardware set Esthela Trauma 3.5 Screw 18mm Implanted:Qty: 1 on 11/27/2019 by Donavan Ramirez Jr., MD at OR [facility] Right: Ankle ESTHELA : TRAUMA [id number] / / Description:hardware set [place] 3.5 Lockscrew 16mm Implanted:Qty: 1 on 11/27/2019 by Donavan Ramirze Jr., MD at OR [facility] Right: Ankle [id number] / / Esthela 2.0 Plate Implanted:Qty: 1 on 11/27/2019 by Donavan Ramirez Jr., MD at [facility] Right: Ankle [id number] / / [place] 2.0 Lock Screw Implanted:Qty: 2 on 11/27/2019 by Donavan Ramirez Jr., MD at [facility] Right: Ankle [id number] / / [place] 2.0 Lock Screw Implanted:Qty: 1 on 11/27/2019 by Donavan Ramirez Jr., MD at [facility] Right: Ankle [id number] / / [place] 2.0 Lock Screw Implanted:Qty: 1 on 11/27/2019 by Donavan Ramirez Jr., MD at OR [facility] Right: Ankle [id number] / / Plate Fib 5h - [id number] Implanted:Qty: 1 on 11/27/2019 by Donavan Ramirez Jr., MD at OR [facility] Right: Ankle ESTHELA : TRAUMA / / Description:hardware set documented as of this encounter Visit Diagnoses Diagnosis Heart failure, systolic, due to CAD (HCC) Unspecified systolic heart failure Inflammation of sacroiliac joint (HCC) Sacroiliitis, not [...] the patient have Health Care Power of Supervisor [employer]? No Code Status History Code Status Date [...] the patient have Health Care Power of Supervisor [employer]? No Full Code 02/17/2019 12:06 PM 02/18/2019 1:09 PM This order reflects the patients wishes and were consensually agreed upon. Question Answer Comments Discussion of Advance Directives occurred with: Not Discussed Does the patient have a Living Will? No Does the patient have Health Care Power of Supervisor [employer]? No Care Teams Night Clerk Relationship Specialty Start Date End Date Buster Montgomery MD [address] [place] [phone] PCP - General Family Medicine 09/11/22 documented as of this encounter
--- OUTSIDE RECORDS SUMMARY | 2023-12-11 18:45 | External Medical Summary | Summary of Care ---
Author Name Unknown Organization [facility] Address [address] [place] [address] Phone [phone] Care Team Providers Care Ingot Stripper Name Role Phone Buster Jessica MD [facility] Reason for Visit * Reason Onset Date Comments [facility]: Acute 11/19/2023 Encounter Details Date Type Department Care Team (Late st Contact Info) Description 11/19/2023 Telephone [facility], [facility] [address] [place] [address] [place], Nurse [address] [place] [address] [facility]: Acute Allergies Active Allergy Reactions Criticality Noted Date Comments Atorvastatin Muscle pain,Unknown 01/18/2015 Medication intolerance, not an allergy Sacubitril-Valsartan Other (Please comment) 09/17/2020 Throat swelled Sacubitril High 07/20/2023 Other Reaction(s): THROAT SWELLING Simvastatin Low 06/23/2022 Other reaction(s): MUSCLE ACHES Valsartan High 07/20/2023 Other Reaction(s): THROAT SWELLING documented as of this encounter (statuses as of 11/19/2023) Medications Medication Sig Dispensed Refills Start Date End Date Status Torsemide 100 MG Oral Tablet (Demadex)Indications :Heart failure, systolic, due to CAD ([facility]) Take 1 tablet by mouth every morning. [...] (pLAVix)Indications: PAD (peripheral artery disease) ([facility]),Coronary artery disease involving [place] coronary artery of [place] heart without angina pectoris TAKE ONE TABLET BY MOUTH ONCE DAILY 90 Tablet 3 03/13/2023 Active Famotidine 20 MG Oral Tablet (Pepcid) TAKE 1 TABLET BY MOUTH TWICE DAILY (MORNING AND AT BEDTIME) 180 Tablet 3 04/30/2023 Active Spironolactone 25 MG Oral Tablet (Aldactone)Indicatio ns:Coronary artery disease involving [place] coronary artery of [place] heart without angina pectoris,Heart failure, systolic, due to CAD ([facility]),Chronic ischemic heart disease,HTN, goal below 140/90 TAKE ONE TABLET BY MOUTH ONCE DAILY 90 Tablet 3 05/14/2023 Active Losartan Potassium 25 MG Oral Tablet (Cozaar)Indications: PAD (peripheral artery disease) ([facility]),Coronary artery disease involving [place] coronary artery of [place] heart without angina pectoris TAKE ONE TABLET [...] failure, systolic, due to CAD ([facility]),Dyslipidemia, goal LDL below 70,Chronic ischemic heart disease,Tobacco use disorder,Coronary artery disease involving [place] coronary artery of [place] heart without angina pectoris Inject 140 mg [...] suspected opioid overdose. Seek immediate medical attention. [email or web address] 1 Each 3 09/15/2023 Active Additional Information [...] D, by GOLD 2017 classification ([facility]) Inhale 1 Puff by mouth in the morning and 1 Puff before bedtime. 180 Each 12 10/29/2023 Active Albuterol Sulfate (2.5 MG/3ML) 0.083% Inhalation Nebulization Solution (Proventil)Indicatio ns:COPD, group D, by GOLD 2017 classification ([facility]) Inhale 1 Vial via nebulizer every 4 [...] Pain, Severe. 120 Tablet 0 11/14/2023 Active Ffgtw-2-bcft Ethyl Esters 1 GM Oral Capsule (Lovaza)Indications: Dyslipidemia, goal LDL below 70 Take 2 Capsules by mouth in the morning and 2 Capsules before bedtime. 120 Capsule 5 11/14/2023 Active Cephalexin 500 MG Oral Capsule (Keflex)Indications: COPD, group D, by GOLD 2017 classification ([facility]) Take 1 Capsule by mouth in the morning and 1 Capsule at noon and 1 Capsule before bedtime. Do all this for 10 days. COPD rescue kit. 30 Capsule 0 11/15/2023 4 Active documented as of this encounter (statuses as of 11/19/2023) Active Problems Problem Noted Date Diagnosed Date [...] fibrillation) 09/22/2021 Atherosclerotic heart diseas e of [place] coronary artery with other forms of angina [...] untreated, BMI 43.71 kg/m, NECK: 21 inches, [place] 01/27, sent for bipap titration study 01/11/11 case per [facility] completed ICD-10 update of inactive term Last Assessment & Plan: Waiting for new bipap machine BMI 35-39 ISOLATED (SEE ACTUAL BMI) 01/17/2010 Overview: Per Obesity Protocol, #19 BPH without obstruction/lower urinary tract symp toms 08/19/2009 Dyslipidemia, goal LDL below 70 07/21/2009 Overview: Per Lipid Taxonomy. documented as of this encounter (statuses as of 11/19/2023) Resolved Problems Problem Noted Date Diagnosed Date [...] 11/22/2020 10/12/2023 Coronary artery disease invo lving [place] coronary artery of [place] heart without angina pectoris 07/06/2020 10/12/2023 Chronic [...] 09/23/201305/17 Claudication 05/13/2013 10/12/2023 [employer] Other*[id number] 04/23/2012 09/12/2016 Overview: Study Title: Genomic Markers for Patients with Cardiovascular Disease Project # [id number] Painter And Decorator Apprentice: Comfort Aviles MD [phone] Impotence of organic origin 02/16/2011 01/10/2018 Shortness [...] as of this encounter (statuses as of 11/19/2023) Immunizations Name Administration Dates Next Due COVID-19 [...] do you have serious difficulty hearing? Yes-very [place] 11/03/2023 Are you blind or do you [...] Telephone Encounter - Yen Bell RN - 11/19/2023 5:50 PM EDT [facility] time study observer Acute Call Date: 11/19/2023 Time: 5:51 PM Name: Dago Gunter : 1950 Caller: Dago Relationship to pt- self Chief Complaint Patient presents with [facility]: Acute HPI: Dago Gunter is a 73 year old male that is calling [facility] Int[facility] to report that heis in terrible pain from gout. Nursing Assessment: Patient's chief complaint for this call: Pt called to report that he is having severe pain from the gout that is affecting his right foot, left knee and right hand. He is taking Allopurinol and Hydrocodone/acetaminophen and he is not havingany relief. He stayed in bed until 3pm today and he is having difficulty walking due to the pain and how it is effecting his joints. His right hand is so swollen he cannot hold onto things. This has been ongoingfor 2 weeks but it is worse today. The pt has not taken the Prednisone that was prescribed by his PCP as he was supposed to have an injection in his back from pain management but they did not do it and rescheduled as the pt was supposed to be taking the Prednisone. The pt understood this to mean he was not supposed to take the Prednisone now for his gout. Advised the pain management Provider would have seen that the Prednisone taper was just prescribed and why, he know the pt should be taking it and that is why the injection wasscheduled then for December. Pain Has pain Pain level: 10 Location: right foot, left knee, right hand Quality of Pain: constantly thumping Does the pain radiate: Unknown Baseline Assessment Able to performing ADLs at baseline (walking, daily tasks, etc.): No Chief Complaint is related to a chronic condition: Unknown Patient prescribed oxygen? No Patient has been ordered DME equipment (assistive devices, respiratory equipment, etc.): Unknown Medication Reconciliation: (See medication list) Received flu shot this season: Unknown Taking medication as ordered: No, The pt has the Prednisone that was prescribed by his PCP on 11/13 but he has not taken any of it. Medications ordered/taking to treat reason for call: Yes, PRN medication(s) Hydrocodone/acetaminophen is not effective Heart failure symptoms: No COPD exacerbation symptoms: No Reinforcement Education: Take all medications as prescribed, including the Prednisone taper Stay hydrated to the maximum of fluid restriction Safety with all transfers and ambulation Monitor for worsening symptoms to report: fever, chills, increased pain, decreased mobility, increased swelling Treatment/Plan: (need to report) Level of call: Acute Appointment scheduled for same day: No- it is the end of the day Treatment plan until appointment: as above The pt plans to discuss with his and he may go to a [facility] ED this evening due to severe pain. Will schedule 24/ 48 hr f/u calls Call back instructions provided to patient. Yen RAVI, RN [facility] Intake Triage Coordinator [phone] documented in this encounter Plan of Treatment Upcoming Encounters Date Type Department Care Team (Latest Contact Info) Description 11/20/2023 3:15 PM EDT Scheduled Telephone [facility], [facility] [address] [place] [address] Coordinator, [facility] [address] [place] [address] 11/21/2023 9:45 AM EDT Scheduled Telephone [facility], [facility] [address] [place] [address] Coordinator, [facility] [address] [place] [address] 11/22/2023 10:00 AM EDT Home Visit [facility], [facility] [address] [place] [address] Lisa Tenorio RN [address] [place] [address] 11/23/2023 1:45 PM EDT Rehab Services Physical Therapy [address] [phone] Marleni Quarles, PT [address] [place] [address] 12/10/2023 9:15 AM EDT Hospital Encounter [facility], Operating [facility] [address] [place] [phone] Freeman Beaulieu DO [address] [place] [phone] 12/10/2023 9:15 AM EDT - 12/10/2023 9:40 AM EDT Surgery [facility], Operating Room [facility] [address] [place] [phone] Freeman Beaulieu, DO [address] [place] [phone] INJECTION SACROILIAC JOINT 12/12/2023 9:00 AM EDT Home Visit [facility] [place], [facility] [address] [place] [address] Xochitl Marina, [facility] [address] [place] [address] 12/13/2023 9:50 AM EDT Office Visit [address] [phone] Buster Jessica MD [address] [place] [address] 01/15/2024 10:40 AM EDT Office Visit [facility] [address] [place] [phone] Clair Quarles, DO [address] [place] [address] 04/22/2024 9:30 AM EDT Cardiac Studies Cardiology, [facility] [address] [facility] [place] [address] [facility] [address] [facility] [place] [address] 05/19/2024 9:30 AM EDT Appointment Radiology, [facility] [address] [phone] Scheduled Procedures Name Priority Associated [...] this encounter Medical Devices Implanted Type Area Chief Wharfinger Device Identifier Shelf Expiration Date Model / Serial / Lot 32mm X 109mm, Zenith Fenestrated Aaa Endovascular Proximal Body Graft, Two Proximal Internal Stent Implanted:Qty: 1 on 04/15/2018 by Evens Hoyt MD [place] [facility] [place]/A: Aorta [employer] 03/20/2021 ZFEN-P-2- [id number] / / [id number] Stent Graft [id number] - [id number] - [id number] Implanted:Qty: 1 on 04/15/2018 by Evens Hoyt MD at [place] [facility] [place] Right: Renal Artery GETINGE : MAQUET 11/30/2020 [id number] / [id number] / [id number] Stent Graft [id number] - [id number] - [id number] Implanted:Qty: 1 on 04/15/2018 by Evens Hoyt MD at [place] [facility] [place] Right: Renal Artery GETINGE : MAQUET 11/30/2020 [id number] / [id number] / [id number] 28mm X 76mm Distal, 12mm Ipsilateral Leg, Zenith Fenestrated Aaa Endovascular Distal Bifurcated Body Graft Implanted:Qty: 1 on 04/15/2018 by Evens Hoyt MD at [place] [facility] [place] N/A: Aorta [employer] 03/20/2021 LISA-D-12 -28-76-C / / [id number] Graft Iliac Leg Spirlz [id number] - [id number] Implanted:Qty: 1 on 04/15/2018 by Evens Hoyt MD at [place] [facility] [place] Left: Iliac [employer] 09/14/2020 [id number] / / [id number] Graft Iliac Leg Spirlz [id number] - [id number] Implanted:Qty: 1 on 04/15/2018 by Evens Hoyt MD at [place] [facility] [place] Right: Iliac [employer] 11/09/2020 [id number] / / [id number] Transfixation Pin 6mm 294.950 - [id number] Implanted:Qty: 1 on 11/14/2019 by Mayank Friedman MD at OR [facility] Right: Ankle SYNTHES 294.950 / / Description:transfixation pi n Screw Schanz [id number] - [id number] Implanted:Qty: 2 on 11/14/2019 by Mayank Friedman MD at OR [facility] Right: Leg Lower SYNTHES 294.786SH A / / Description:self drilling sh antz screws 5.0mm x 200mm Esthela Trauma 2.7 Lock Screw 16mm Implanted:Qty: 2 on 11/27/2019 by Donavan Ramirez Jr., MD at [place] [facility] [place] Right: Ankle ESTHELA : TRAUMA [id number] / / Description:hardware set [place] Trauma 2.7 Lock Screw 14mm Implanted:Qty: 1 on 11/27/2019 by Donavan Ramirez Jr., MD at [place] [facility] [place] Right: Ankle ESTHELA : TRAUMA [id number] / / Esthela Trauma 3.5 Screw 14mm Implanted:Qty: 1 on 11/27/2019 by Donavan Ramirez Jr., MD at [place] [facility] [place] Right: Ankle ESTHELA : TRAUMA [id number] / / Description:hardware set [place] Trauma 3.5 Screw 18mm Implanted:Qty: 1 on 11/27/2019 by Donavan Ramirez Jr., MD at [place] [facility] [place] Right: Ankle ESTHELA : TRAUMA [id number] / / Description:hardware set [place] 3.5 Lockscrew 16mm Implanted:Qty: 1 on 11/27/2019 by Donavan Ramirez Jr., MD at [place] [facility] [place] Right: Ankle [id number] / / Esthela 2.0 Plate Implanted:Qty: 1 on 11/27/2019 by Donavan Ramirez Jr., MD at [place] [facility] [place] Right: Ankle [id number] / / [place] 2.0 Lock Screw Implanted:Qty: 2 on 11/27/2019 by Donavan Ramirez Jr., MD at [place] [facility] [place] Right: Ankle [id number] / / [place] 2.0 Lock Screw Implanted:Qty: 1 on 11/27/2019 by Donavan Ramirez Jr., MD at [place] [facility] [place] Right: Ankle [id number] / / [place] 2.0 Lock Screw Implanted:Qty: 1 on 11/27/2019 by Donavan Ramirez Jr., MD at [place] [facility] [place] Right: Ankle [id number] / / Plate Fib - [id number] Implanted:Qty: 1 on 11/27/2019 by Donavan Ramirez Jr., MD at [place] [facility] [place] Right: Ankle ESTHELA : TRAUMA / / [...] the patient have Health Care Power of Nuclear Auxiliary Operator? No Code Status History Code Status [...] the patient have Health Care Power of Nuclear Auxiliary Operator? No Full Code 02/17/2019 12:06 PM 02/18/2019 1:09 PM This order reflects the patients wishes and were consensually agreed upon. Question Answer Comments Discussion of Advance Directives occurred with: Not Discussed Does the patient have a Living Will? No Does the patient have Health Care Power of Nuclear Auxiliary Operator? No Care Teams Ingot Stripper Relationship Specialty Start Date End Date Buster Jessica MD [address] [place] [address] PCP - General Family Medicine 09/11/22 documented as of this encounter
--- OUTSIDE RECORDS SUMMARY | 2023-12-11 18:45 | External Medical Summary | Summary of Care ---
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] Procedures SACROILIAC JOINT INJECT W/GUIDANCE INJECTION SACROILIAC JOINT Freeman Beaulieu DO [address] [place] [address] [facility] [address] [place] [address] Referral ID Status Reason Start Date Expiration Date Visits Re quested Visits Authorized [id number] Encounter Details Date Type Department Care Team (Latest Contact Info) Description 11/16/2023 9:52 AM EDT - 11/16/2023 11:16 AM EDT Hospital Encounter [facility], Operating Room [facility] [address] [place] [phone] Freeman Beaulieu DO [address] [place] [address] Discharge Disposition: Home - Self Care Allergies Active Allergy Reactions Criticality Noted Date Comments Atorvastatin Muscle pain,Unknown 01/18/2015 Medication intolerance, not an allergy Sacubitril-Valsartan Other (Please comment) 09/17/2020 Throat swelled Sacubitril High 07/20/2023 Other Reaction(s): THROAT SWELLING Simvastatin Low 06/23/2022 Other reaction(s): MUSCLE ACHES Valsartan High 07/20/2023 Other Reaction(s): THROAT SWELLING documented as of this encounter (statuses as of 11/16/2023) Medications Medication Sig Dispensed Refills Start Date End Date Status Torsemide 100 MG Oral Tablet (Demadex)Indications :Heart failure, systolic, due to CAD ([facility]) Take 1 tablet by mouth every [...] (pLAVix)Indications: PAD (peripheral artery disease) ([facility]),Coronary artery disease involving [place] coronary artery of [place] heart without angina pectoris TAKE ONE TABLET BY MOUTH ONCE DAILY 90 Tablet 3 03/13/2023 Active Famotidine 20 MG Oral Tablet (Pepcid) TAKE 1 TABLET BY MOUTH TWICE DAILY (MORNING AND AT BEDTIME) 180 Tablet 3 04/30/2023 Active Spironolactone 25 MG Oral Tablet (Aldactone)Indicatio ns:Coronary artery disease involving [place] coronary artery of [place] heart without angina pectoris,Heart failure, systolic, due to CAD ([facility]),Chronic ischemic heart disease,HTN, goal below 140/90 TAKE ONE TABLET BY MOUTH ONCE DAILY 90 Tablet 3 05/14/2023 Active Losartan Potassium 25 MG Oral Tablet (Cozaar)Indications: PAD (peripheral artery disease) ([facility]),Coronary artery disease involving [place] coronary artery of [place] heart without angina pectoris TAKE ONE TABLET [...] failure, systolic, due to CAD ([facility]),Dyslipidemia, goal LDL below 70,Chronic ischemic heart disease,Tobacco use disorder,Coronary artery disease involving [place] coronary artery of [place] heart without angina pectoris Inject 140 mg (1 pen) under the skin every 14 days. 6 mL 3 07/02/2023 Active Metoprolol Succinate ER 50 MG Oral Tablet Extended Release 24 Hour (Toprol XL)Indications:Persi stent atrial fibrillation ([facility]),Acute on chronic systolic (congestive) heart failure ([facility]) One tablet by mouth daily at bedtime, this is in addition to the previous prescription for 100 milligrams daily in the morning. 90 Tablet 3 08/23/2023 Active Digoxin 125 MCG Oral Tablet (Lanoxin) Take 1 Tablet by mouth in the morning. 90 Tablet 3 08/23/2023 Active ARIPiprazole 2 MG Oral Tablet (Abilify)Indications :Moderate episode of recurrent major depressive disorder ([facility]) Take 1 Tablet by mouth in the morning. 30 Tablet 1 09/06/2023 Active Desvenlafaxine Succinate ER 100 MG Oral [...] D, by GOLD 2017 classification ([facility]) Inhale 1 Puff by mouth in the morning and 1 Puff before bedtime. 180 Each 12 10/29/2023 Active Albuterol Sulfate (2.5 MG/3ML) 0.083% Inhalation Nebulization Solution (Proventil)Indicatio ns:COPD, group D, by GOLD 2017 classification ([facility]) Inhale 1 Vial via nebulizer [...] Pain, Severe. 120 Tablet 0 11/14/2023 Active Hamrt-4-ctde Ethyl Esters 1 GM Oral Capsule (Lovaza)Indications: Dyslipidemia, goal LDL below 70 Take 2 Capsules by mouth in the morning and 2 Capsules before bedtime. 120 Capsule 5 11/14/2023 Active documented as of this encounter (statuses as of 11/16/2023) Active Problems Problem Noted Date Diagnosed Date [...] fibrillation) 09/22/2021 Atherosclerotic heart diseas e of bear [place] coronary artery with other forms of angina [...] untreated, BMI 43.71 kg/m, NECK: 21 inches, [place] 01/27, sent for bipap titration study 01/11/11 case per [facility] completed ICD-10 update of inactive term Last Assessment & Plan: Waiting for new bipap machine BMI 35-39 ISOLATED (SEE ACTUAL BMI) 01/17/2010 Overview: Per Obesity Protocol, #19 BPH without obstruction/lower urinary tract symp toms 08/19/2009 Dyslipidemia, goal LDL below 70 07/21/2009 Overview: Per Lipid Taxonomy. documented as of this encounter (statuses as of 11/16/2023) Resolved Problems Problem Noted Date Diagnosed Date [...] 11/22/2020 10/12/2023 Coronary artery disease invo lving bear river coronary artery of [place] heart without angina pectoris 07/06/2020 10/12/2023 Chronic [...] 09/23/201305/17 Claudication 05/13/2013 10/12/2023 [employer] Other*[id number] 04/23/2012 09/12/2016 Overview: Study Title: Genomic Markers for Patients with Cardiovascular Disease Project # [id number] Curtain Cleaner: Comfort Aviles MD [phone] Impotence of organic origin 02/16/2011 01/10/2018 Shortness [...] as of this encounter (statuses as of 11/16/2023) Immunizations Name Administration Dates Next Due COVID-19 [...] Sign Reading Time Taken Comments Blood Pressure 119/67 11/16/2023 10:11 AM EDT Pulse 82 11/16/2023 10:11 AM EDT Temperature 36.1 C (96.9 F) 11/16/2023 10:11 AM E DT Respiratory Rate 16 11/16/2023 10:11 AM EDT Oxygen Saturation 97% 11/16/2023 10:11 AM EDT Inhaled Oxygen Concentration - - Weight - - Height - - Body Mass Index - - documented in this encounter Functional Status Functional Status Response Date of Assess ment Are you deaf or do you have serious difficulty h earing? No-REDDING 11/14/2019 Are you blind or do you have serious difficulty seeing, even when wearing glasses? No 11/14/2019 Do you have serious difficul ty walking or climbing stairs? (5 years old or older) No 11/14/2019 Do you have difficulty dress ing or bathing? (5 years old or older) No 11/14/2019 Because of a physical, menta l, or emotional condition, do you have difficulty doing errands alone such as visiting a doctor s office or shopping? (15 years old or older) No 11/14/19 20 Cognitive Status Response Date of Assessm ent Because of a physical, menta l, or emotional condition, do you have serious difficulty concentrating, remembering, or making decisions? (5 years old or older) No 11/14/2019 documented as of this encounter H&P Notes * Freeman Beaulieu, DO - 11/16/2023 10:22 AM EDT Interventional Pain H&P Subjective: History of Present Illness: Dago Gunter is a 73 year old year-old male with a past medical history significant for chronic bilateral SIJ pain who is presenting for bilateral SIJ corticosteroid injection to improve his pain and function. his pain is essentially unchanged since our last office visit with him. ASA 3 AW nml Review of Systems: A focused 12-pt ROS were of reviewed with the patient including difficulty with sleep, snoring, aspiration history, dysphagia, stomach pain, nausea and vomiting, severe headaches, confusion, open skin lesions or wounds, chest pain, shortness of breath, excessive thirst, somnolence, dysuria, incomplete bladder emptying, easy bruising, recent clotting problems or bleeding, depression or rushed thoughts unless noted previously. Review of patient's allergies indicates: Allergen Reactions Sacubitril Other Reaction(s): THROAT SWELLING Valsartan Other Reaction(s): THROAT SWELLING Atorvastatin Muscle pain and Unknown Medication intolerance, not an allergy Entresto [Sacubitril-Valsartan] Other (Please comment) Throat swelled Simvastatin Other reaction(s): MUSCLE ACHES Medications, Past Medical History, Past Surgical History reviewed and documented in Epic. See detailed report if needed. Pertinent Labs/Test Results: INR Date Value 11/03/2023 1.3 (H) 05/22/2020 1.07 Creatinine, U (mg/dL) Date Value 06/06/2023 36 Hemoglobin A1C (%) Date Value 06/06/2023 5.6 02/18/2019 5.7 (H) Lab Results Component Value Date/Time AMPHETAMINES SCREEN - [facility] Negative 06/06/2023 10:12 AM BENZODIAZEPINES SCREEN - [facility] Negative 06/06/2023 10:12 AM METHADONE METABOLITE - [facility] Negative 06/06/2023 10:12 AM OXYCODONE / OXYMORPHONE - [facility] Negative 06/06/2023 10:12 AM OXYCODONE, CONFIRM - [facility] Negative 03/07/2021 11:35 AM CANNABINOIDS SCREEN - [facility] Negative 06/06/2023 10:12 AM Imaging: I personally reviewed the imaging and my findings were . CT CHEST LUNG CANCER SCREEN 3 OR 6 MONTH FOLLOW UP Narrative: EXAM: CT CHEST LUNG CANCER SCREEN 3 OR 6 MONTH FOLLOW UP - 10/29/2023 2:26 pm HISTORY: f/u pulmonary nodules TECHNIQUE: Noncontrast low-dose CT (LDCT) chest per standard departmental protocol COMPARISON: CT scans dated 08/27/2013 and 02/19/2023 FINDINGS: Lung Screening Specific (LungRADS): As noted previously, a 1 cm nodule in the right lower lobe is unchanged from 02/19/2023 but slightly increased in size from more remote exams. The previously described new irregular nodules in the right lower lobe have resolved, consistent with an infectious/inflammatory process on the prior exam. No new nodules are seen. Potentially Significant Incidentals (LungRADS Category S): None. Pulmonary incidentals: Probable mild bronchiolitis. Also noted is a saber sheath trachea. Other Incidentals: A left-sided ICD an abdominal aortic endograft are again noted. There are severe coronary artery calcifications. Bilateral gynecomastia is again noted as well. Further note is made of stable nodularity of the thyroid, likely multinodular goiter. The patient is status post cholecystectomy. There is scoliosis of the spine with multilevel degenerative changes. Impression: IMPRESSION: 1. LungRADS Category 2: Negative, benign appearance or behavior. 2. LungRADS Category S: Negative. No new/unknown potentially significant incidental findings requiring additional evaluation. 3. Incidental findings as above. RECOMMENDATIONS: Next exam to be arranged by the Lung Cancer Screening Program. XR KNEE 1-2 VIEWS Narrative: PROCEDURE INFORMATION: Exam: XR Left Knee Exam date and time: 11/02/2023 11:18 PM Age: 73 years old Clinical indication: Patient HX: Left knee pain, swelling, anterior redness. questionable gout. no injury. ; Additional info: Knee pain TECHNIQUE: Imaging protocol: Radiologic exam of the left knee. Views: 1 or 2 views. COMPARISON: DX XR KNEE 4 OR MORE VIEWS 01/10/2023 9:58 AM FINDINGS: Bones/joints: No acute fracture or dislocation in the left knee. Mild narrowing of the tibiofemoral and patellofemoral joint spaces with minimal spurring. Soft tissues: Mild prepatellar soft tissue swelling. No joint effusion. Impression: IMPRESSION: Mild prepatellar soft tissue swelling. No acute fractures. THIS DOCUMENT HAS BEEN ELECTRONICALLY SIGNED BY SHELBIE RILEY MD Objective Physical Exam: Vital Signs: BP 119/67 | Pulse 82 | Temp 36.1 C (96.9 F) (Tympanic) | Resp 16 | SpO2 97% There is no height or weight on file to calculate BMI. General: No apparent distress. Eyes: pupils equal and round, sclera white, pupils midsize. ENT: mucous membranes moist Resp: Non-labored breathing CV: Extremities warm and well-perfused. Psych: Oriented; affect warm, insight good. Skin: No rashes or lesions appreciated on exposed skin Neuromuscular Exam: Bilateral SIJ TTP Assessment: Dago is a 73 year old year-old male with: Osteoarthritis of both SIJs Bilateral sacroiliac joint pain (chronic) Plan: The patient is undergoing bilateral SIJ corticosteroid injections today to alleviate his pain and improve his function. The risks, benefits and alternatives to the procedure were reviewed at length and the patient was provided the opportunity to ask questions which were answered to their voiced understanding. Following this comprehensive discussion, the patient opted to proceed. The patient was consented to the procedure following this comprehensive conversation. Freeman Beaulieu DO OR [facility], Operating Room [facility] [address] [facility] [place] [address] documented in this encounter Nursing Notes * Teri Ramos, RN - 11/16/2023 10:51 AM EDT Procedure cancelled by Dr. Beaulieu due to pt being on Prednisone 20mg PO currently. Pt states his PCP prescribed the prednisone for a gout flare and he has been on it for 1-[address] Beaulieu assisted ingetting the pt rescheduled and pt encouraged to call if he is on steroids prior to next procedure date. Pt taken to vehicle with wheelchair. documented in this encounter Plan of Treatment Upcoming Encounters Date Type Department Care Team (Latest Contact Info) Description 11/22/2023 10:00 AM EDT Home Visit [facility] [place] [address] [place] [address] Lisa Tenorio RN [address] [place] [address] 11/23/2023 1:45 PM EDT Rehab Services Physical Therapy [address] [phone] Marleni Quarles, PT [address] [place] [phone] 12/10/2023 9:15 AM EDT Hospital Encounter [facility], Operating Room [facility] [address] [place], [place] [phone] Freeman Beaulieu, DO [address] [place] [phone] 12/10/2023 9:15 AM EDT - 12/10/2023 9:40 AM EDT Surgery [facility], Operating Room [facility] [address] [place] [phone] Freeman Beaulieu, DO [address] [place] [phone] INJECTION SACROILIAC JOINT 12/12/2023 9:00 AM EDT Home Visit [facility] [place] [address] [place] [address] Xochitl Marina, [facility] [address] [place] [address] 12/13/2023 9:50 AM EDT Office Visit [address] [phone] Buster Jessica MD [address] [place] [address] 01/15/2024 10:40 AM EDT Office Visit [facility] [address] [place] [phone] Clair Quarles, [address] [place] [address] 04/22/2024 9:30 AM EDT [facility] [address] [place] [address] [facility] [address] [facility] [place] [address] 05/19/2024 9:30 AM EDT Appointment Radiology, [place] [address] [facility] [address] Scheduled Orders Name Type Priority Associated Diagnoses Order Schedule FLUORO INTERVENTIONAL PAIN PROCEDURE NONBILLABLE Medical Imaging Routine One Time for 1 Occurrences starting 11/16/2023 until 11/16/2023 Scheduled Procedures Name Priority Associated Diagnoses Date/Ti [...] Vaccine: 65+ Years Completed 05/27/2020, 12/02/2018, 09/10/2008 LUNG CANCER SCREENING - USE SMARTSET 70159 Completed 08/22/2022, 05/22/2022, 02/21/2021, Additional history exists GARDASIL-HPV IMMUNIZATION [...] this encounter Medical Devices Implanted Type Area Judge Device Identifier Shelf Expiration Date Model / Serial / Lot 32mm X 109mm, Zenith Fenestrated Aaa Endovascular Proximal Body Graft, Two Proximal Internal Stent Implanted:Qty: 1 on 04/15/2018 by Evens Hoyt MD at [place] [facility] N/A: Aorta [employer] 03/20/2021 [id number]-[id number] / / [id number] Stent Graft [id number] - [id number] - [id number] Implanted:Qty: 1 on 04/15/2018 by Evens Hoyt MD at OR [facility] Right: Renal Artery GETINGE : MAQUET 11/30/2020 [id number] / [id number] / [id number] Stent Graft [id number] - [id number] - [id number] Implanted:Qty: 1 on 04/15/2018 by Evens Hoyt MD at OR [facility] Right: Renal Artery GETINGE : MAQUET 11/30/2020 [id number] / [id number] / [id number] 28mm X 76mm Distal, 12mm Ipsilateral Leg, Zenith Fenestrated Aaa Endovascular Distal Bifurcated Body Graft Implanted:Qty: 1 on 04/15/2018 by Evens Hoyt MD at OR [facility] N/A: Aorta [employer] 03/20/2021 [id number]-D-12 -28-76-C / / [id number] Graft Iliac Leg Spirlz 96t69ua - [id number] Implanted:Qty: 1 on 04/15/2018 by Evens Hoyt MD at OR [facility] Left: Iliac [employer] 09/14/2020 [id number] / / [id number] Graft Iliac Leg Spirlz 38h62le - [id number] Implanted:Qty: 1 on 04/15/2018 by Evens Hoyt MD at OR [facility] Right: Iliac [employer] 11/09/2020 [id number] / / [id number] Transfixation Pin 6mm 294.950 - [id number] Implanted:Qty: 1 on 11/14/2019 by Mayank Friedman MD at OR [facility] Right: Ankle SYNTHES 294.950 / / Description:transfixation pi n Screw Schanz 5.0hwa803mf - [id number] Implanted:Qty: 2 on 11/14/2019 by Mayank Friedman MD at OR [facility] Right: Leg Lower SYNTHES 294.786SH A / / Description:self drilling sh antz screws 5.0mm x 200mm Esthela Trauma 2.7 Lock Screw 16mm Implanted:Qty: 2 on 11/27/2019 by Donavan Ramirez Jr., MD at OR [facility] Right: Ankle ESTHELA : TRAUMA [id number] / / Description:hardware set Esthela Trauma 2.7 Lock Screw 14mm Implanted:Qty: 1 on 11/27/2019 by Donavan Ramirez Jr., MD at OR [facility] Right: Ankle ESTHELA : TRAUMA [id number] / / [place] Trauma 3.5 Screw 14mm Implanted:Qty: 1 on 11/27/2019 by Donavan Ramirez Jr., MD at OR [facility] Right: Ankle ESTHELA : TRAUMA [id number] / / Description:hardware set [place] Trauma 3.5 Screw 18mm Implanted:Qty: 1 on 11/27/2019 by Donavan Ramirez Jr., MD at OR [facility] Right: Ankle ESTHELA : TRAUMA [id number] / / Description:hardware set [place] 3.5 Lockscrew 16mm Implanted:Qty: 1 on 11/27/2019 by Donavan Ramirez Jr., MD at OR [facility] Right: Ankle [id number] / / Esthela 2.0 Plate Implanted:Qty: 1 on 11/27/2019 by Donavan Ramirez Jr., MD at OR [facility] Right: Ankle [id number] / / [place] 2.0 Lock Screw Implanted:Qty: 2 on 11/27/2019 by Donavan Ramirez Jr., MD at OR [facility] Right: Ankle [id number] / / Esthela 2.0 Lock Screw Implanted:Qty: 1 on 11/27/2019 by Donavan Ramirez Jr., MD at [facility] Right: Ankle [id number] / / Esthela 2.0 Lock Screw Implanted:Qty: 1 on 11/27/2019 by Donavan Ramirez Jr., MD at [facility] Right: Ankle [id number] / / Plate Fib 5h - [id number] Implanted:Qty: 1 on 11/27/2019 by Donavan Ramirez Jr., MD at [facility] Right: Ankle ESTHELA : TRAUMA / / Description:hardware set documented as of this encounter Active and Recently Administered Medications Times are shown in EDT. Scheduled Medication Order 11/14/2023 11/15/2023 11/16/2023 Iohexol (Omnipaque 180) inj 1 mL 1 mL, Intravenous, ONCE, On Sun11/16/23 at 1045, For 1 dose 1045 (Due) lidocaine 1 % inj 20 mg 20 mg (2 mL), Subcutaneous, ONCE, On Sun11/16/23 at 1045, For 1 dose 1045 (Due) Triamcinolone Acetonide (Kenalog) 40 MG/ML inj 40 mg 40 mg, Intra-Articular, ONCE, On Sun11/16/23 at 1045, For 1 dose 1045 (Due) documented in this encounter Advance Directives Latest Code Status on File Code Status Date Activated Date Inactivated Comments Full Code 11/03/2023 12:54 AM 11/03/2023 9:39 PM This order reflects the patients wishes and were consensually agreed upon. Question Answer Comments Discussion of Advance Directives occurred with: Patient Does the patient have a Living Will? No Does the patient have Health Care Power of Director Hris? No Code Status History Code Status Date [...] the patient have Health Care Power of Director Hris? No Full Code 02/17/2019 12:06 PM 02/18/2019 1:09 PM This order reflects the patients wishes and were consensually agreed upon. Question Answer Comments Discussion of Advance Directives occurred with: Not Discussed Does the patient have a Living Will? No Does the patient have Health Care Power of Director Hris? No Care Teams Lang Path Therapist Relationship Specialty Start Date End Date Buster Jessica MD [address] [place] [id number] PCP - General Family Medicine 09/11/22 documented as of this encounter"
--- OUTSIDE RECORDS SUMMARY | 2023-12-11 18:45 | External Medical Summary | Summary of Care ---
Author Name Unknown Organization [facility] Address [address] [place] [address] Phone [phone] Care Team Providers Care Lime Mixer Name Role Phone Buster Montgomery MD Primary Care P rovider Reason for Visit * Reason Onset Date Comments Med Request 11/15/2023 Encounter Details Date Type Department Care Team ([facility] st Contact Info) Description 11/15/[address] [phone] Buster Montgomery MD [address] [place] [phone] Med Request Allergies Active Allergy Reactions Criticality Noted Date Comments Atorvastatin Muscle pain,Unknown 01/18/2015 Medication intolerance, not an allergy Sacubitril-Valsartan Other (Please comment) 09/17/2020 Throat swelled Sacubitril High 07/20/2023 Other Reaction(s): THROAT SWELLING Simvastatin Low 06/23/2022 Other reaction(s): MUSCLE ACHES Valsartan High 07/20/2023 Other Reaction(s): THROAT SWELLING documented as of this encounter (statuses as of 11/15/2023) Medications Medication Sig Dispensed Refills Start Date End Date Status Torsemide 100 MG Oral Tablet (Demadex)Indications :Heart failure, systolic, due to CAD ([facility]) Take 1 tablet by mouth every [...] (peripheral artery disease) (HCC),Coronary artery disease involving [place] coronary artery of [place] heart without angina pectoris TAKE ONE TABLET BY MOUTH ONCE DAILY 90 Tablet 3 03/13/2023 Active Famotidine 20 MG Oral Tablet (Pepcid) TAKE 1 TABLET BY MOUTH TWICE DAILY (MORNING AND AT BEDTIME) 180 Tablet 3 04/30/2023 Active Spironolactone 25 MG Oral Tablet (Aldactone)Indicatio ns:Coronary artery disease involving [place] coronary artery of [place] heart without angina pectoris,Heart failure, systolic, due to CAD ([facility]),Chronic ischemic heart disease,HTN, goal below 140/90 TAKE ONE TABLET BY MOUTH ONCE DAILY 90 Tablet 3 05/14/2023 Active Losartan Potassium 25 MG Oral Tablet (Cozaar)Indications: PAD (peripheral artery disease) ([facility]),Coronary artery disease involving [place] coronary artery of [place] heart without angina pectoris TAKE ONE TABLET [...] failure, systolic, due to CAD ([facility]),Dyslipidemia, goal LDL below 70,Chronic ischemic heart disease,Tobacco use disorder,Coronary artery disease involving [place] coronary artery of [place] heart without angina pectoris Inject 140 mg [...] suspected opioid overdose. Seek immediate medical attention. [email or web address] 1 Each 3 09/15/2023 Active Additional Information [...] D, by GOLD 2017 classification ([facility]) Inhale 1 Puff by mouth in the morning and 1 Puff before bedtime. 180 Each 12 10/29/2023 Active Albuterol Sulfate (2.5 MG/3ML) 0.083% Inhalation Nebulization Solution (Proventil)Indicatio ns:COPD, group D, by GOLD 2017 classification ([facility]) Inhale 1 Vial via nebulizer every [...] Pain, Severe. 120 Tablet 0 11/14/2023 Active Klqrp-6-ipfr Ethyl Esters 1 GM Oral Capsule (Lovaza)Indications: Dyslipidemia, goal LDL below 70 Take 2 Capsules by mouth in the morning and 2 Capsules before bedtime. 120 Capsule 5 11/14/2023 Active Cephalexin 500 MG Oral Capsule (Keflex)Indications: COPD, group D, by GOLD 2017 classification ([facility]) Take 1 Capsule by mouth in the morning and 1 Capsule at noon and 1 Capsule before bedtime. Do all this for 10 days. COPD rescue kit. 30 Capsule 0 11/15/2023 4 Active documented as of this encounter (statuses as of 11/15/2023) Active Problems Problem Noted Date Diagnosed Date [...] fibrillation) 09/22/2021 Atherosclerotic heart diseas e of [place] coronary artery with other forms of angina [...] GOLD Classification Last Assessment & Plan: Continues ethan and markus PRN Basal cell carcinoma (BCC) of right [...] as of this encounter (statuses as of 11/15/2023) Resolved Problems Problem Noted Date Diagnosed Date [...] 11/22/2020 10/12/2023 Coronary artery disease invo lving [place] coronary artery of [place] heart without angina pectoris 07/06/2020 10/12/2023 Chronic [...] 09/23/201305/17 Claudication 05/13/2013 10/12/2023 [employer] Other*[id number] 04/23/2012 09/12/2016 Overview: Study Title: Genomic Markers for Patients with Cardiovascular Disease Project # [id number] Vascular Tech: Comfort Aviles MD [phone] Impotence of organic origin 02/16/2011 01/10/2018 Shortness [...] as of this encounter (statuses as of 11/15/2023) Immunizations Name Administration Dates Next Due COVID-19 [...] get flu),07/22/2002 TDAP (age 11 and older)(Adacel) 08/19/19,09/10/2008(Deferred: Patient [...] do you have serious difficulty hearing? Yes-very [place] 11/03/2023 Are you blind or do you [...] as of this encounter Miscellaneous Notes * Addendum Note - Buster Montgomery MD - 11/15/2023 8:22 PM EDT Addended by: BUSTER MONTGOMERY on: 11/15/2023 08:22 PM Modules accepted: Orders * Telephone Encounter - Buster Montgomery MD - 11/15/2023 8:20 PM EDT Cephalexin was electronically prescribed for patient. I refer the patient to sleep medicine on 10/19/2023. Please help patient schedule appointment with sleep medicine for BiPAP trial and new settings. * Telephone Encounter - Courtney Bernal MED ASSIST - 11/15/2023 4:46 PM EDT Please advise. * Telephone Encounter - Emmy Keys CPhT - 11/15/2023 12:52 PM EDT Pt states a Bipap was also supposed to be ordered for him and he has not heard back from anyone regarding the status of the order. Patient requesting refills for Cephalexin 500 MG Oral Capsule . Upon chart review, medication is listed as discontinued, with discontinuation reason as "pt preference". Please advise if you wish to continue this therapy for the patient. Thank you, Rehana Keys CPhT Loading Machine Tool Setter II [facility] ([facility] (Formerly Telepharmacy) 11/15/2023,12:52 PM documented in this encounter Plan of Treatment Upcoming Encounters Date Type Department Care Team (Latest Contact Info) Description 11/16/2023 10:30 AM EDT Hospital Encounter OR [facility], Operating Room [facility] [address] [place] [phone] Freeman Beaulieu DO [address] [place] [phone] 11/16/2023 10:30 AM EDT - 11/16/2023 10:55 AM EDT Surgery OR [facility], Operating Room [facility] [address] [place] [phone] Freeman Beaulieu DO [address] [place] [phone] INJECTION SACROILIAC JOINT 11/22/2023 10:00 AM EDT Home Visit [facility], [address] [place] [address] Lisa Tenorio, RN [address] [place] [address] 11/23/2023 1:45 PM EDT Rehab Services Physical Therapy [facility] [address] [facility] [address] [place] [phone] Marleni Quarles, PT [address] [place] [address] 12/12/2023 9:00 AM EDT Home Visit [facility], [facility] [address] [place] [address] Xochitl [place], [facility] [address] [place] [address] 12/13/2023 9:50 AM EDT Office Visit Family Practice [facility] [address] [place] [phone] Buster Montgomery MD [address] [place] [address] 01/15/2024 10:40 AM EDT Office Visit Sleep Disorders Ctr [facility] [address] [facility] [place] [phone] Clair Quarles DO [address] [facility] [place] [address] 04/22/2024 9:30 AM EDT Cardiac Studies Cardiology, [facility] [address] [facility] [place] [address] [facility] [address] [facility] [place] [address] 05/19/2024 9:30 AM EDT Appointment Radiology, [id number] [place] [address] Scheduled Procedures Name Priority Associated Diagnoses Date/Ti me INJECTION SACROILIAC JOINT Inflammation of sacroiliac joint (HCC) 11/16/2023 10:30 AM EDT COLONOSCOPY FLEXIBLE PROXIMAL DIAGNOSTIC Recall History of colon polyps Health Maintenance Due Date Last Done Comments *ADVANCE DIRECTIVE NOT ON FILE 05/28/2019 COVID-19 Vaccine ( season) 2023 11/08/2020, 10/08/2020 DISCUSS TOBACCO CESSATION (REFER TO SMARTSET #0492) 06/02/2023 06/02/2022, 07/21/2020 Depression, Most Recent Score >= 10 (will fire each visit until score < 10) 08/30/2023 08/29/2023 Influenza Vaccine (FLU shot) (Season Ended) 2024 05/11/2022, 06/09/2021, 04/13/2020, Additional history exists GFR 11/02/2024 11/03/2023, 10/05, 10/30/2023, Additional history exists O2 ASSESSMENT COMPLETED IN PAST YEAR FOR COPD 11/13/2024 11/14/2023 Albumin/Creatinine Ratio 06/06/2026 06/06/2023 COLONOSCOPY-EVERY 5 YRS AGES 18-100 10/28/2027 10/27/2022, 04/21/2014, 04/21/2014, Additional history exists DTaP,Tdap,and Td Vaccines (3 - Td or Tdap) 04/13/2030 04/13/2020 (Declined), 08/19/2009 Alpha-1 Antitrypsin Completed 02/19/2020 Pneumococcal Vaccine: 65+ Years Completed 05/27/2020, 12/02/2018, 09/10/2008 LUNG CANCER SCREENING - USE SMARTSET 21270 Completed 08/22/2022, 05/22/2022, 02/21/2021, Additional history exists [...] this encounter Medical Devices Implanted Type Area Food Packer Device Identifier Shelf Expiration Date Model / Serial / Lot 32mm X 109mm, Zenith Fenestrated Aaa Endovascular Proximal Body Graft, Two Proximal Internal Stent Implanted:Qty: 1 on 04/15/2018 by Evens Hoyt MD [place] [facility] N/A: Aorta [employer] 03/20/2021 ZFEN-P-2- [id number] / / [id number] Stent Graft [id number] - [id number] - [id number] Implanted:Qty: 1 on 04/15/2018 by Evens Hoyt MD at [place] [facility] Right: Renal Artery GETINGE : MAQUET 11/30/2020 [id number] / [id number] / [id number] Stent Graft [id number] - [id number] - [id number] Implanted:Qty: 1 on 04/15/2018 by Evens Hoyt MD at [place] [facility] Right: Renal Artery GETINGE : MAQUET 11/30/2020 27522 / [id number] / [id number] 28mm X 76mm Distal, 12mm Ipsilateral Leg, Zenith Fenestrated Aaa Endovascular Distal Bifurcated Body Graft Implanted:Qty: 1 on 04/15/2018 by Evens Hoyt MD at [place] [facility] N/A: Aorta [employer] 03/20/2021 ZFEN-D-12 -28-76-C / / [id number] Graft Iliac Leg Spirlz [id number] - [id number] Implanted:Qty: 1 on 04/15/2018 by Evens Hoyt MD at [place] [facility] Left: Iliac [employer] 09/14/2020 [id number] / / [id number] Graft Iliac Leg Spirlz 81f16ss - [id number] Implanted:Qty: 1 on 04/15/2018 by Evens Hoyt MD at [place] [facility] Right: Iliac [employer] 11/09/2020 [id number] / / [id number] Transfixation Pin 6mm 294.950 - [id number] Implanted:Qty: 1 on 11/14/2019 by Mayank Friedman MD at OR [facility] Right: Ankle SYNTHES 294.950 / / Description:transfixation pi n Screw Schanz [id number] - [id number] Implanted:Qty: 2 on 11/14/2019 by Mayank Friedman MD at OR [facility] Right: Leg Lower SYNTHES 294.786SH A / / Description:self drilling sh antz screws 5.0mm x 200mm Esthela Trauma 2.7 Lock Screw 16mm Implanted:Qty: 2 on 11/27/2019 by Donavan Ramirez Jr., MD at [place] [facility] Right: Ankle ESTHELA : TRAUMA [id number] / / Description:hardware set Esthela Trauma 2.7 Lock Screw 14mm Implanted:Qty: 1 on 11/27/2019 by Donavan Ramirez Jr., MD at [place] [facility] Right: Ankle ESTHELA : TRAUMA [id number] / / Esthela Trauma 3.5 Screw 14mm Implanted:Qty: 1 on 11/27/2019 by Donavan Ramirez Jr., MD at [place] [facility] Right: Ankle ESTHELA : TRAUMA [id number] / / Description:hardware set Esthela Trauma 3.5 Screw 18mm Implanted:Qty: 1 on 11/27/2019 by Donavan Ramirez Jr., MD at [place] [facility] Right: Ankle ESTHELA : TRAUMA [id number] / / Description:hardware set Esthela 3.5 Lockscrew 16mm Implanted:Qty: 1 on 11/27/2019 by Donavan Ramirez Jr., MD at [place] [facility] Right: Ankle [id number] / / [place] 2.0 Plate Implanted:Qty: 1 on 11/27/2019 by Donavan Ramirez Jr., MD at [place] [facility] Right: Ankle [id number] / / [place] 2.0 Lock Screw Implanted:Qty: 2 on 11/27/2019 by Donavan Ramirez Jr., MD at [place] [facility] Right: Ankle [id number] / / [place] 2.0 Lock Screw Implanted:Qty: 1 on 11/27/2019 by Donavan Ramirez Jr., MD at [place] [facility] Right: Ankle [id number] / / [place] 2.0 Lock Screw Implanted:Qty: 1 on 11/27/2019 by Donavan Ramirez Jr., MD at [place] [facility] Right: Ankle [id number] / / Plate Fib - [id number] Implanted:Qty: 1 on 11/27/2019 by Donavan Ramirez Jr., MD at [place] [facility] Right: Ankle ESTHELA : TRAUMA / / Description:hardware set documented as of this encounter Visit Diagnoses Diagnosis COPD, group D, by GOLD 2017 classification (HCC)- Primary Inflammation of sacroiliac joint (HCC) Sacroiliitis, [...] the patient have Health Care Power of [place]? No Code Status History Code Status Date [...] the patient have Health Care Power of [place]? No Full Code 02/17/2019 12:06 PM 02/18/2019 1:09 PM This order reflects the patients wishes and were consensually agreed upon. Question Answer Comments Discussion of Advance Directives occurred with: Not Discussed Does the patient have a Living Will? No Does the patient have Health Care Power of [place]? No Care Teams Lime Mixer Relationship Specialty Start Date End Date Buster Montgomery MD [address] [place] [address] PCP - General Family Medicine 09/11/22 documented as of this encounter
--- OUTSIDE RECORDS SUMMARY | 2023-12-11 18:45 | External Medical Summary | Summary of Care ---
Author Name Unknown Organization [facility] Address [address] [place] [address] Phone [phone] Care Team Providers Care Public Health Name Role Phone Buster Montgomery MD Primary Care P rovider Reason for Visit * Reason Onset Date Comments Med Request 11/15/2023 Encounter Details Date Type Department Care Team ([facility] st Contact Info) Description 11/15/[address] [address] Buster Montgomery MD [address] [place] [address] Med Request Allergies Active Allergy Reactions [...] (Demadex)Indications :Heart failure, systolic, due to CAD ([facility]) Take 1 tablet by mouth every [...] (peripheral artery disease) (HCC),Coronary artery disease involving coquille coronary artery of coqu[place] heart without angina pectoris TAKE ONE TABLET BY MOUTH ONCE DAILY 90 Tablet 3 03/13/2023 Active Famotidine 20 MG Oral Tablet (Pepcid) TAKE 1 TABLET BY MOUTH TWICE DAILY (MORNING AND AT BEDTIME) 180 Tablet 3 04/30/2023 Active Spironolactone 25 MG Oral Tablet (Aldactone)Indicatio ns:Coronary artery disease involving coquille coronary artery of [place]qu[place] heart without angina pectoris,Heart failure, systolic, due to CAD ([facility]),Chronic ischemic heart disease,HTN, goal below 140/90 TAKE ONE TABLET BY MOUTH ONCE DAILY 90 Tablet 3 05/14/2023 Active Losartan Potassium 25 MG Oral Tablet (Cozaar)Indications: PAD (peripheral artery disease) ([facility]),Coronary artery disease involving coquille coronary artery of coquille heart without angina pectoris TAKE ONE TABLET BY MOUTH ONCE DAILY 90 Tablet 3 06/04/2023 Active Baclofen 20 MG Oral TabletIndications:Ch ronic bilateral low back pain without sciatica Take 1 Tablet by mouth 3 times a day as needed for Muscle spasms. 90 Tablet 5 06/06/2023 Active Repatha SureClick 140 MG/ML Subcutaneous Solution Auto-injector (evolocumab)Indicati ons:Obstructive sleep apnea,Heart failure, systolic, due to CAD ([facility]),Dyslipidemia, goal LDL below 70,Chronic ischemic heart disease,Tobacco use disorder,Coronary artery disease involving coquille coronary artery of coquille heart without angina pectoris Inject 140 mg [...] suspected opioid overdose. Seek immediate medical attention. [email or web address] 1 Each 3 09/15/2023 Active Additional Information [...] PD, group D, by GOLD 2017 classification ([facility]) Inhale 1 Puff by mouth in the morning and 1 Puff before bedtime. 180 Each 12 10/29/2023 Active Albuterol Sulfate (2.5 MG/3ML) 0.083% Inhalation Nebulization Solution (Proventil)Indicatio ns:COPD, group D, by GOLD 2017 classification ([facility]) Inhale 1 Vial via nebulizer every [...] Pain, Severe. 120 Tablet 0 11/14/2023 Active Gybja-6-yzcl Ethyl Esters 1 GM Oral Capsule (Lovaza)Indications: Dyslipidemia, goal LDL below 70 Take 2 Capsules by mouth in the morning and 2 Capsules before bedtime. 120 Capsule 5 11/14/2023 Active Cephalexin 500 MG Oral Capsule (Keflex)Indications: COPD, group D, by GOLD 2017 classification ([facility]) Take 1 Capsule by mouth in the [...] fibrillation) 09/22/2021 Atherosclerotic heart diseas e of coquille coronary artery with other forms of angina [...] untreated, BMI 43.71 kg/m, NECK: 21 inches, [place] 01/27, sent for bipap titration study 01/11/11 [...] 11/22/2020 10/12/2023 Coronary artery disease invo lving coquille coronary artery of coquille heart without angina pectoris 07/06/2020 10/12/2023 Chronic [...] 09/23/201305/17 Claudication 05/13/2013 10/12/2023 [employer] Other*[id number] 04/23/2012 09/12/2016 Overview: Study Title: Genomic Markers for Patients with Cardiovascular Disease Project # [id number] University Librarian: Comfort Aviles MD [phone] Impotence of organic origin 02/16/2011 01/10/2018 Shortness [...] have serious difficulty hearing? Yes-very [place] 11/03/2023 Are you blind or do you [...] encounter Miscellaneous Notes * Telephone Encounter - Queta Moore LPN - 11/16/2023 11:48 AM EDT Patient has an appointment with Sleep med in January. * Addendum Note - Buster Montgomery MD [...] the patient. Thank you, Rehana Keys CPhT Rpg Developer II Centralized Clinical Pharmacy Services (CCPS) (Formerly Telepharmacy) 11/15/2023,12:52 PM documented in this encounter Plan of Treatment Upcoming Encounters Date Type Department Care Team (Latest Contact Info) Description 11/22/2023 10:00 AM EDT [facility] [place] [address] [place] [address] Lisa Tenorio RN [address] [place] [address] 11/23/2023 1:45 PM EDT Rehab Services Physical Therapy [address] [place] [address] Marleni Quarles, PT [address] [place] [address] 12/10/2023 9:15 AM EDT Hospital Encounter [facility], Operating Room [facility] [address] [place], [place] [phone] Freeman Beaulieu, DO [address] [place] [phone] 12/10/2023 9:15 AM EDT - 12/10/2023 9:40 AM EDT Surgery OR [facility], Operating Room [facility] [address] [place] [phone] Freeman Beaulieu, DO [address] [place] [phone] INJECTION SACROILIAC JOINT 12/12/2023 9:00 AM EDT [facility] [place] [address] [place] [address] Xochitl Marina, [facility] [address] [place] [address] 12/13/2023 9:50 AM EDT Office Visit Family [facility] [address] [place] [phone] Buster Montgomery MD [address] [place] [address] 01/15/2024 10:40 AM EDT Office Visit Sleep Disorders [facility] [address] [place] [phone] Clair Quarles, DO [address] [place] [address] 04/22/2024 9:30 AM EDT Cardiac Studies Cardiology, [facility] [address] [facility] [place] [address] Valeria Pacer [facility] [address] [place] [address] 05/19/2024 9:30 AM EDT Appointment Radiology, [address] [address] Scheduled Procedures Name Priority Associated Diagnoses Date/Ti me INJECTION SACROILIAC JOINT Inflammation of sacroiliac joint (HCC) 12/10/2023 9:15 AM EDT COLONOSCOPY FLEXIBLE PROXIMAL DIAGNOSTIC Recall History of colon polyps Health Maintenance Due Date Last Done Comments *ADVANCE DIRECTIVE NOT ON FILE 05/28/2019 COVID-19 Vaccine ( - season) 2023 11/08/2020, 10/08/2020 DISCUSS TOBACCO CESSATION (REFER TO SMARTSET #1521) 06/02/2023 06/02/2022, 07/21/2020 Depression, Most Recent Score [...] 09/10/2008 LUNG CANCER SCREENING - USE SMARTSET 72974 Completed 08/22/2022, 05/22/2022, 02/21/2021, Additional history exists [...] this encounter Medical Devices Implanted Type Area Coordinator Cardiopulmonary Services Device Identifier Shelf Expiration Date Model / Serial / Lot 32mm X 109mm, Zenith Fenestrated Aaa Endovascular Proximal Body Graft, Two Proximal Internal Stent Implanted:Qty: 1 on 04/15/2018 by Evens Hoyt MD at OR [facility] N/A: Aorta [employer] 03/20/2021 LISA-P-2- 32-109-R / / [id number] Stent Graft [id number] - [id number] - [id number] Implanted:Qty: 1 on 04/15/2018 by Evens Hoyt MD at OR [facility] Right: Renal Artery GETINGE : MAQUET 11/30/2020 14969 / [id number] / [id number] Stent Graft [id number] - [id number] - [id number] Implanted:Qty: 1 on 04/15/2018 by Evens Hoyt MD at OR [facility] Right: Renal Artery GETINGE : MAQUET 11/30/2020 75649 / [id number] / [id number] 28mm X 76mm Distal, 12mm Ipsilateral Leg, Zenith Fenestrated Aaa Endovascular Distal Bifurcated Body Graft Implanted:Qty: 1 on 04/15/2018 by Evens Hoyt MD at OR [facility] N/A: Aorta [employer] 03/20/2021 LISA-D-12 -28-76-C / / [id number] Graft Iliac Leg Spirlz 48f68mo - [id number] Implanted:Qty: 1 on 04/15/2018 by Evens Hoyt MD at OR [facility] Left: Iliac [employer] 09/14/2020 [id number] / / [id number] Graft Iliac Leg Spirlz 14r29ph - [id number] Implanted:Qty: 1 on 04/15/2018 by Evens Hoyt MD at OR [facility] Right: Iliac [employer] 11/09/2020 [id number] / / [id number] Transfixation Pin 6mm 294.950 - [id number] Implanted:Qty: 1 on 11/14/2019 by Mayank Friedman MD at OR [facility] Right: Ankle SYNTHES 294.950 / / Description:transfixation pi n Screw Schanz 5.9ybt140dd - [id number] Implanted:Qty: 2 on 11/14/2019 by Mayank Friedman MD at OR [facility] Right: Leg Lower SYNTHES 294.786SH A / / Description:self drilling sh antz screws 5.0mm x 200mm Esthela Trauma 2.7 Lock Screw 16mm Implanted:Qty: 2 on 11/27/2019 by Donavan Ramirez Jr., MD at OR [facility] Right: Ankle ESTHELA : TRAUMA [id number] / / Description:hardware set Esthela Trauma 2.7 Lock Screw 14mm Implanted:Qty: 1 on 11/27/2019 by Donavan Ramirez Jr., MD at OR [facility] Right: Ankle ESTHELA : TRAUMA [id number] / / Esthela Trauma 3.5 Screw 14mm Implanted:Qty: 1 on 11/27/2019 by Donavan Ramirez Jr., MD at OR [facility] Right: Ankle ESTHELA : TRAUMA [id number] / / Description:hardware set Esthela Trauma 3.5 Screw 18mm Implanted:Qty: 1 on 11/27/2019 by Donavan Ramirez Jr., MD at OR [facility] Right: Ankle ESTHELA : TRAUMA [id number] / / Description:hardware set Esthela 3.5 Lockscrew 16mm Implanted:Qty: 1 on 11/27/2019 by Donavan Ramirez Jr., MD at OR [facility] Right: Ankle [id number] / / Esthela 2.0 Plate Implanted:Qty: 1 on 11/27/2019 by Donavan Ramirez Jr., MD at OR [facility] Right: Ankle [id number] / / Esthela 2.0 Lock Screw Implanted:Qty: 2 on 11/27/2019 by Donavan Ramirez Jr., MD at [facility] Right: Ankle [id number] / / [place] 2.0 Lock Screw Implanted:Qty: 1 on 11/27/2019 by Donavan Ramirez Jr., MD at [facility] Right: Ankle [id number] / / [place] 2.0 Lock Screw Implanted:Qty: 1 on 11/27/2019 by Donavan Ramirez Jr., MD at OR [facility] Right: Ankle [id number] / / Plate Fib 5h - [id number] Implanted:Qty: 1 on 11/27/2019 by Donavan Ramirez Jr., MD at OR [facility] Right: Ankle ESTHELA : TRAUMA / / [...] the patient have Health Care Power of Machine Operator Assistant? No Code Status History Code Status Date [...] the patient have Health Care Power of Machine Operator Assistant? No Full Code 02/17/2019 12:06 PM 02/18/2019 1:09 PM This order reflects the patients wishes and were consensually agreed upon. Question Answer Comments Discussion of Advance Directives occurred with: Not Discussed Does the patient have a Living Will? No Does the patient have Health Care Power of Machine Operator Assistant? No Care Teams Public Health Relationship Specialty Start Date End Date [facility] [address] PCP - General Family Medicine 09/11/22 documented as of this encounter
--- OUTSIDE RECORDS SUMMARY | 2023-12-11 18:45 | External Medical Summary | Summary of Care ---
Author Name Unknown Organization [facility] Address [address] [place] [address] Phone [phone] Care Team Providers Care Spinneret Person Name Role Phone Buster Jessica MD Primary Care P rovider Reason for Visit * Reason Onset Date Comments Med Request 11/15/2023 Encounter Details Date Type Department Care Team ([facility] st Contact Info) Description 11/15/[address] [address] Buster Jessica MD [address] [place] [address] Med Request Allergies Active Allergy Reactions [...] (Demadex)Indications :Heart failure, systolic, due to CAD ([facility]) Take 1 tablet by mouth [...] (peripheral artery disease) (HCC),Coronary artery disease involving [place] coronary artery of [place] heart without angina pectoris TAKE ONE TABLET BY MOUTH ONCE DAILY 90 Tablet 3 03/13/2023 Active Famotidine 20 MG Oral Tablet (Pepcid) TAKE 1 TABLET BY MOUTH TWICE DAILY (MORNING AND AT BEDTIME) 180 Tablet 3 04/30/2023 Active Spironolactone 25 MG Oral Tablet (Aldactone)Indicatio ns:Coronary artery disease involving [place] coronary artery of [place] heart without angina pectoris,Heart failure, systolic, due to CAD ([facility]),Chronic ischemic heart disease,HTN, goal below 140/90 TAKE ONE TABLET BY MOUTH ONCE DAILY 90 Tablet 3 05/14/2023 Active Losartan Potassium 25 MG Oral Tablet (Cozaar)Indications: PAD (peripheral artery disease) ([facility]),Coronary artery disease involving [place] coronary artery of [place] heart without angina pectoris TAKE ONE TABLET BY MOUTH ONCE DAILY 90 Tablet 3 06/04/2023 Active Baclofen 20 MG Oral TabletIndications:Ch ronic bilateral low back pain without sciatica Take 1 Tablet by mouth 3 times a day as needed for Muscle spasms. 90 Tablet 5 06/06/2023 Active Repatha SureClick 140 MG/ML Subcutaneous Solution Auto-injector (evolocumab)Indicati ons:Obstructive sleep apnea,Heart failure, systolic, due to CAD ([facility]),Dyslipidemia, goal LDL below 70,Chronic ischemic heart disease,Tobacco use disorder,Coronary artery disease involving [place] coronary artery of [place] heart without angina pectoris Inject 140 mg [...] suspected opioid overdose. Seek immediate medical attention. [email or web address] 1 Each 3 09/15/2023 Active Additional Information [...] PD, group D, by GOLD 2017 classification ([facility]) Inhale 1 Puff by mouth in the morning and 1 Puff before bedtime. 180 Each 12 10/29/2023 Active Albuterol Sulfate (2.5 MG/3ML) 0.083% Inhalation Nebulization Solution (Proventil)Indicatio ns:COPD, group D, by GOLD 2017 classification ([facility]) Inhale 1 Vial via nebulizer [...] Pain, Severe. 120 Tablet 0 11/14/2023 Active Faxoo-7-sbco Ethyl Esters 1 GM Oral Capsule (Lovaza)Indications: [...] fibrillation) 09/22/2021 Atherosclerotic heart diseas e of [place] coronary artery with other forms of angina [...] Last Assessment & Plan: Continues ethan and nebs PRN Basal cell carcinoma (BCC) [...] untreated, BMI 43.71 kg/m, NECK: 21 inches, [place] 624, sent for bipap titration study 01/11/11 [...] 11/22/2020 10/12/2023 Coronary artery disease invo lving [place] coronary artery of [place] heart without angina pectoris 07/06/2020 10/12/2023 Chronic [...] 09/23/201305/17 Claudication 05/13/2013 10/12/2023 [employer] Other*[id number] 04/23/2012 09/12/2016 Overview: Study Title: Genomic Markers for Patients with Cardiovascular Disease Project # [id number] Roller Helper: Comfort Aviles MD [phone] Impotence of organic origin 02/16/2011 01/10/2018 Shortness [...] do you have serious difficulty hearing? Yes-very [place] 11/03/2023 Are you blind or do you [...] encounter Miscellaneous Notes * Telephone Encounter - Courtney Bernal MED [...] the patient. Thank you, Rehana Keys CPhT Rn Physician Office II Centralized Clinical Pharmacy Services (CCPS) (Formerly Telepharmacy) 11/15/2023,12:52 PM documented in this encounter Plan of Treatment Upcoming Encounters Date Type Department Care Team (Latest Contact Info) Description 11/16/2023 10:30 AM EDT Hospital Encounter [facility], Operating Room [facility] [address] [place] [phone] Freeman Beaulieu, DO [address] [place] [address] 11/16/2023 10:30 AM EDT - 11/16/2023 10:55 AM EDT Surgery OR [facility], Operating Room [facility] [address] [place] [phone] Freeman Beaulieu, DO [address] [place] [phone] INJECTION SACROILIAC JOINT 11/22/2023 10:00 AM EDT [facility] Visit [facility] [address] [place] [address] Lisa Tenorio RN [address] [place] [address] 11/23/2023 1:45 PM EDT Rehab Services Physical Therapy [address] [place] [phone] Marleni Quarles, PT [address] [place] [address] 12/12/2023 9:00 AM EDT [facility] Visit [facility], [facility] [address] [place] [address] Xochitl Marina, CELIO [address] [place] [address] 12/13/2023 9:50 AM EDT Office Visit Family Practice [address] [phone] Buster Jessica MD [address] [place] [address] 01/15/2024 10:40 AM EDT Office Visit Sleep Disorders Ctr [facility] [address] [place] [phone] Clair Quarles DO [address] [place] [address] 04/22/2024 9:30 AM EDT Cardiac Studies Cardiology, [facility] [address] [place] [address] [facility] [address] [place] [address] 05/19/2024 9:30 AM EDT Appointment Radiology, [address] [place] [place] [address] Scheduled Procedures Name Priority Associated [...] 09/10/2008 LUNG CANCER SCREENING - USE SMARTSET 93316 Completed 08/22/2022, 05/22/2022, 02/21/2021, Additional history exists [...] this encounter Medical Devices Implanted Type Area Factory Assembler Device Identifier Shelf Expiration Date Model / Serial / Lot 32mm X 109mm, Zenith Fenestrated Aaa Endovascular Proximal Body Graft, Two Proximal Internal Stent Implanted:Qty: 1 on 04/15/2018 by Evens Hoyt MD at OR [facility] N/A: Aorta [employer] 03/20/2021 ZFEN-P-2- 32-109-R / / [id number] Stent Graft [id number] - [id number] - [id number] Implanted:Qty: 1 on 04/15/2018 by Evens Hoyt MD at OR [facility] Right: Renal Artery GETINGE : MAQUET 11/30/2020 93539 / [id number] / [id number] Stent Graft [id number] 89627 - [id number] - [id number] Implanted:Qty: 1 on 04/15/2018 by Evens Hoyt MD at OR [facility] Right: Renal Artery GETINGE : MAQUET 11/30/2020 70274 / [id number] / [id number] 28mm X 76mm Distal, 12mm Ipsilateral Leg, Zenith Fenestrated Aaa Endovascular Distal Bifurcated Body Graft Implanted:Qty: 1 on 04/15/2018 by Evens Hoyt MD at OR [facility] N/A: Aorta [employer] 03/20/2021 ZFEN-D-12 -28-76-C / / [id number] Graft Iliac Leg Spirlz 03s22xx - [id number] Implanted:Qty: 1 on 04/15/2018 by Evens Hoyt MD at OR [facility] Left: Iliac [employer] 09/14/2020 [id number] / / [id number] Graft Iliac Leg Spirlz 35z57eo - [id number] Implanted:Qty: 1 on 04/15/2018 by Evens Hoyt MD at OR [facility] Right: Iliac [employer] 11/09/2020 [id number] / / [id number] Transfixation Pin 6mm 294.950 - [id number] Implanted:Qty: 1 on 11/14/2019 by Mayank Friedman MD at OR [facility] Right: Ankle SYNTHES 294.950 / / Description:transfixation pi n Screw Schanz [id number] - [id number] Implanted:Qty: 2 on 11/14/2019 by Mayank Friedman MD at OR [facility] Right: Leg Lower SYNTHES 294.786SH A / / Description:self drilling sh antz screws 5.0mm x 200mm Esthela Trauma 2.7 Lock Screw 16mm Implanted:Qty: 2 on 11/27/2019 by Donavan Ramirez Jr., MD at OR [facility] Right: Ankle ESTHELA : TRAUMA [id number] / / Description:hardware set Esthela Trauma 2.7 Lock Screw 14mm Implanted:Qty: 1 on 11/27/2019 by Donavan Ramirez Jr., MD at OR [facility] Right: Ankle ESTHELA : TRAUMA [id number] / / [place] Trauma 3.5 Screw 14mm Implanted:Qty: 1 on 11/27/2019 by Donavan Ramirez Jr., MD at OR [facility] Right: Ankle ESTHELA : TRAUMA [id number] / / Description:hardware set Esthela Trauma 3.5 Screw 18mm Implanted:Qty: 1 on 11/27/2019 by Donavan Ramirez Jr., MD at OR [facility] Right: Ankle ESTHELA : TRAUMA [id number] / / Description:hardware set [place] 3.5 Lockscrew 16mm Implanted:Qty: 1 on 11/27/2019 by Donavan Ramirez Jr., MD at [facility] Right: Ankle [id number] / / [place]hel[place] 2.0 Plate Implanted:Qty: 1 on 11/27/2019 by Donavan Ramirez Jr., MD at [facility] Right: Ankle [id number] / / [place] 2.0 Lock Screw Implanted:Qty: 2 on 11/27/2019 by Donavan Ramirez Jr., MD at [facility] Right: Ankle [id number] / / [place] 2.0 Lock Screw Implanted:Qty: 1 on 11/27/2019 by Donavan Ramirez Jr., MD at [facility] Right: Ankle [id number] / / [place]hel[place] 2.0 Lock Screw Implanted:Qty: 1 on 11/27/2019 by Donavan Ramirez Jr., MD at OR [facility] Right: Ankle [id number] / / Plate Fib 5h - [id number] Implanted:Qty: 1 on 11/27/2019 by Donavan Ramirez Jr., MD at OR [facility] Right: Ankle ESTHELA : TRAUMA / / [...] the patient have Health Care Power of Telesales Team Leader? No Code Status History Code Status Date [...] the patient have Health Care Power of Telesales Team Leader? No Full Code 02/17/2019 12:06 PM 02/18/2019 1:09 PM This order reflects the patients wishes and were consensually agreed upon. Question Answer Comments Discussion of Advance Directives occurred with: Not Discussed Does the patient have a Living Will? No Does the patient have Health Care Power of Telesales Team Leader? No Care Teams Spinneret Person Relationship Specialty Start Date End Date Buster Jessica MD [address] [place] [address] PCP - General Family Medicine 09/11/22 documented as of this encounter
--- OUTSIDE RECORDS SUMMARY | 2023-12-11 18:46 | External Medical Summary | Summary of Care ---
Author Name Unknown Organization [facility] Address [address] [place] [address] Phone [phone] Care Team Providers Care Roof Mechanic Name Role Phone Buster Jessica MD Primary Care P rovider Reason for Visit * Reason Onset Date Comments Med Request 11/15/2023 Encounter Details Date Type Department Care Team ([facility] st Contact Info) Description 11/15/[address] [phone] Buster Jessica MD [address] [place] [phone] Med Request Allergies Active Allergy Reactions [...] failure, systolic, due to CAD ([facility]) Take 1 tablet by mouth every [...] (peripheral artery disease) (HCC),Coronary artery disease involving chitina coronary artery of chitina heart without angina pectoris TAKE ONE TABLET BY MOUTH ONCE DAILY 90 Tablet 3 03/13/2023 Active Famotidine 20 MG Oral Tablet (Pepcid) TAKE 1 TABLET BY MOUTH TWICE DAILY (MORNING AND AT BEDTIME) 180 Tablet 3 04/30/2023 Active Spironolactone 25 MG Oral Tablet (Aldactone)Indicatio ns:Coronary artery disease involving chitina coronary artery of chitina heart without angina pectoris,Heart failure, systolic, due to CAD ([facility]),Chronic ischemic heart disease,HTN, goal below 140/90 TAKE ONE TABLET BY MOUTH ONCE DAILY 90 Tablet 3 05/14/2023 Active Losartan Potassium 25 MG Oral Tablet (Cozaar)Indications: PAD (peripheral artery disease) ([facility]),Coronary artery disease involving chitina coronary artery of chitina heart without angina pectoris TAKE ONE TABLET [...] failure, systolic, due to CAD ([facility]),Dyslipidemia, goal LDL below 70,Chronic ischemic heart disease,Tobacco use disorder,Coronary artery disease involving chitina coronary artery of chitina heart without angina pectoris Inject 140 mg [...] suspected opioid overdose. Seek immediate medical attention. [email or web address] 1 Each 3 09/15/2023 Active Additional Information [...] D, by GOLD 2017 classification ([facility]) Inhale 1 Puff by mouth in the morning and 1 Puff before bedtime. 180 Each 12 10/29/2023 Active Albuterol Sulfate (2.5 MG/3ML) 0.083% Inhalation Nebulization Solution (Proventil)Indicatio ns:COPD, group D, by GOLD 2017 classification ([facility]) Inhale 1 Vial via nebulizer every [...] Pain, Severe. 120 Tablet 0 11/14/2023 Active Iqgvf-0-lykz Ethyl Esters 1 GM Oral Capsule (Lovaza)Indications: [...] fibrillation) 09/22/2021 Atherosclerotic heart diseas e of chitina coronary artery with other forms of angina [...] untreated, BMI 43.71 kg/m, NECK: 21 inches, [place] 624, sent for bipap titration study 01/11/11 [...] 11/22/2020 10/12/2023 Coronary artery disease invo lving chitina coronary artery of chitina heart without angina pectoris 07/06/2020 10/12/2023 Chronic [...] 09/23/201305/17 Claudication 05/13/2013 10/12/2023 [employer] Other*[id number] 04/23/2012 09/12/2016 Overview: Study Title: Genomic Markers for Patients with Cardiovascular Disease Project # [id number] Medical Scheduler: Comfort Aviles MD [phone] Impotence of organic origin 02/16/2011 01/10/2018 Shortness [...] do you have serious difficulty hearing? Yes-very [place] 11/03/2023 Are you blind or do you [...] encounter Miscellaneous Notes * Telephone Encounter - Emmy Keys CPhT [...] the patient. Thank you, Rehana Keys CPhT Incident Engineer II [facility] ([facility]) (Formerly Telepharmacy) 11/15/2023,12:52 PM documented in this encounter Plan of Treatment Upcoming Encounters Date Type Department Care Team (Latest Contact Info) Description 11/21/2023 10:55 AM EDT Hospital Encounter [facility] Operating [facility] [address] [phone] Freeman Beaulieu DO [address] [place] [phone] 11/21/2023 10:55 AM EDT - 11/21/2023 11:20 AM EDT Surgery [facility], Operating Room [facility] [address] [place] [phone] Freeman Beaulieu, DO [address] [place] [address] INJECTION SACROILIAC JOINT 11/22/2023 10:00 AM EDT Home Visit [facility] [place] [facility] [address] [place] [address] Lisa Tenorio RN [address] [place] [address] 11/23/2023 1:45 PM EDT Rehab Services Physical Therapy [facility] 68 [facility] [address] [place] [phone] Marleni Quarles, PT [address] [place] [address] 12/13/2023 9:50 AM EDT Office Visit Family Practice [facility] [address] [place] [phone] Buster Jessica MD [address] [place] [address] 01/15/2024 10:40 AM EDT Office Visit Sleep Disorders Ctr [facility] [address] [place] [phone] Clair Quarles, DO [address] [place] [address] 04/22/2024 9:30 AM EDT Cardiac Studies [facility] 132 [facility] [place] [address] [facility] [address] [place] [address] 05/19/2024 9:30 AM EDT Appointment Radiology, [place] [address] [place] [address] Scheduled Procedures Name Priority Associated Diagnoses Date/Ti me INJECTION SACROILIAC JOINT Inflammation of sacroiliac joint (HCC) 11/21/2023 10:55 AM EDT COLONOSCOPY FLEXIBLE PROXIMAL DIAGNOSTIC Recall [...] 09/10/2008 LUNG CANCER SCREENING - USE SMARTSET 59906 Completed 08/22/2022, 05/22/2022, 02/21/2021, Additional history exists [...] this encounter Medical Devices Implanted Type Area Sr. Media Manager Device Identifier Shelf Expiration Date Model / Serial / Lot 32mm X 109mm, Zenith Fenestrated Aaa Endovascular Proximal Body Graft, Two Proximal Internal Stent Implanted:Qty: 1 on 04/15/2018 by Evens Hoyt MD [place] [facility] [place]/A: Aorta [employer] 03/20/2021 ZFKEDAR-P-2- 32-109-R / / [id number] Stent Graft [id number] - [id number] - [id number] Implanted:Qty: 1 on 04/15/2018 by Evens Hoyt MD [place] [facility] Right: Renal Artery GETINGE : MAQUET 11/30/2020 20934 / [id number] / [id number] Stent Graft [id number] - [id number] - [id number] Implanted:Qty: 1 on 04/15/2018 by Evens Hoyt MD at [place] [facility] [place]: Renal Artery GETINGE : MAQUET 11/30/2020 16620 / [id number] / [id number] 28mm X 76mm Distal, 12mm Ipsilateral Leg, Zenith Fenestrated Aaa Endovascular Distal Bifurcated Body Graft Implanted:Qty: 1 on 04/15/2018 by Evens Hoyt MD at [place] [facility] [place]/A: Aorta [employer] 03/20/2021 LISA-D-12 -28-76-C / / [id number] Graft Iliac Leg Spirlz [id number] - [id number] Implanted:Qty: 1 on 04/15/2018 by Evens Hoyt MD at [place] [facility] Left: Iliac [employer] 09/14/2020 [id number] / / [id number] Graft Iliac Leg Spirlz 14i45qg - [id number] Implanted:Qty: 1 on 04/15/2018 by Evens Hoyt MD at [place] [facility] Right: Iliac [employer] 11/09/2020 [id number] / / [id number] Transfixation Pin 6mm 294.950 - [id number] Implanted:Qty: 1 on 11/14/2019 by Mayank Friedman MD at OR [facility] Right: Ankle SYNTHES 294.950 / / Description:transfixation pi n Screw Schanz 5.5ouy864qx - [id number] Implanted:Qty: 2 on 11/14/2019 by Mayank Friedman MD at OR [facility] Right: Leg Lower SYNTHES 294.786SH A / / Description:self drilling sh antz screws 5.0mm x 200mm Hinckley Trauma 2.7 Lock Screw 16mm Implanted:Qty: 2 on 11/27/2019 by Donavan Ramirez Jr., MD at [place] [facility] [place]: Ankle ESTHELA : TRAUMA [id number] / / Description:hardware set Esthela Trauma 2.7 Lock Screw 14mm Implanted:Qty: 1 on 11/27/2019 by Donavan Ramirez Jr., MD at [place] [facility] Right: Ankle ESTHELA : TRAUMA [id number] / / Esthela Trauma 3.5 Screw 14mm Implanted:Qty: 1 on 11/27/2019 by Donavan Ramirez Jr., MD at [place] [facility] Right: Ankle ESTHELA : TRAUMA [id number] / / Description:hardware set Esthela Trauma 3.5 Screw 18mm Implanted:Qty: 1 on 11/27/2019 by Donavan Ramirez Jr., MD at [place] [facility] Right: Ankle ESTHELA : TRAUMA [id number] / / Description:hardware set Esthela 3.5 Lockscrew 16mm Implanted:Qty: 1 on 11/27/2019 by Donavan Ramirez Jr., MD at [place] [facility] Right: Ankle [id number] / / [place] 2.0 Plate Implanted:Qty: 1 on 11/27/2019 by Donavan Ramirez Jr., MD at [place] [facility] Right: Ankle [id number] / / Esthela 2.0 Lock Screw Implanted:Qty: 2 on 11/27/2019 by Donavan Ramirez Jr., MD at [place] [facility] Right: Ankle [id number] / / [place] 2.0 Lock Screw Implanted:Qty: 1 on 11/27/2019 by Donavan Ramirez Jr., MD at [facility] Right: Ankle [id number] / / Esthela 2.0 Lock Screw Implanted:Qty: 1 on 11/27/2019 by Donavan Ramirez Jr., MD at [place] [facility] [place]: Ankle [id number] / / Plate Fib 5h - [id number] Implanted:Qty: 1 on 11/27/2019 by Donavan Ramirez Jr., MD at [place] [facility] [place]: Ankle ESTHELA : TRAUMA / / [...] the patient have Health Care Power of Assembler Golf Wood Head? No Code Status History Code Status Date [...] the patient have Health Care Power of Assembler [place]? No Full Code 02/17/2019 12:06 PM 02/18/2019 1:09 PM This order reflects the patients wishes and were consensually agreed upon. Question Answer Comments Discussion of Advance Directives occurred with: Not Discussed Does the patient have a Living Will? No Does the patient have Health Care Power of Assembler Golf [place]? No Care Teams Roof Mechanic Relationship Specialty Start Date End Date Buster Jessica MD [address] [place] [address] PCP - General Family Medicine 09/11/22 documented as of this encounter
--- OUTSIDE RECORDS SUMMARY | 2023-12-11 18:46 | External Medical Summary | Summary of Care ---
Author Name Unknown Organization [facility] Address [address] [place] [address] Phone [phone] Care Team Providers Care Porcelain Enamel Sprayer Name Role Phone Buster Jessica MD [facility] Reason for Visit * Reason Onset Date Comments Precert Approved 08/10/2023 Repatha 140mg/m L sureclick pen Encounter Details Date Type Department Care Team (Late st Contact Info) Description 08/10/2023 Telephone Cardiology, [facility] [address] [place] [address] Donavan Barker, DO [address] [place] [address] Precert Approved (Repatha 140mg/mL surecli... Allergies Active Allergy Reactions Criticality Noted Date Comments Atorvastatin Muscle pain,Unknown 01/18/2015 Medication intolerance, not an allergy Sacubitril-Valsartan Other (Please comment) 09/17/2020 Throat swelled Sacubitril High 07/20/2023 Other Reaction(s): THROAT SWELLING Simvastatin Low 06/23/2022 Other reaction(s): MUSCLE ACHES Valsartan High 07/20/2023 Other Reaction(s): THROAT SWELLING documented as of this encounter (statuses as of 11/09/2023) Medications Medication Sig Dispensed Refills Start Date End Date Status Torsemide 100 MG Oral Tablet (Demadex)Indicatio ns:Heart failure, systolic, due to CAD ([facility]) Take 1 tablet by mouth every morning. Take 1 tab on Sunday, Sunday and Sunday afternoon. 150 Tablet 3 3 Active Additional Information Patient taking differently: Take [...] Oral Tablet (pLAVix)Indication s:PAD (peripheral artery disease) ([facility]),Coronary artery disease involving washoe coronary artery of washoe heart without angina pectoris TAKE ONE TABLET BY MOUTH ONCE DAILY 90 Tablet 3 3 Active Famotidine 20 MG Oral Tablet (Pepcid) TAKE 1 TABLET BY MOUTH TWICE DAILY (MORNING AND AT BEDTIME) 180 Tablet 3 3 Active Spironolactone 25 MG Oral Tablet (Aldactone)Indicat ions:Coronary artery disease involving washoe coronary artery of washoe heart without angina pectoris,Heart failure, systolic, due to CAD ([facility]),Chronic ischemic heart disease,HTN, goal below 140/90 TAKE ONE TABLET BY MOUTH ONCE DAILY 90 Tablet 3 3 Active Losartan Potassium 25 MG Oral Tablet (Cozaar)Indication s:PAD (peripheral artery disease) ([facility]),Coronary artery disease involving washoe coronary artery of washoe heart without angina pectoris TAKE ONE TABLET BY MOUTH ONCE DAILY 90 Tablet 3 3 Active Baclofen 20 MG Oral TabletIndications: Chronic bilateral low back pain without sciatica Take 1 Tablet by mouth 3 times a day as needed for Muscle spasms. 90 Tablet 5 3 Active Repatha SureClick 140 MG/ML Subcutaneous Solution Auto-injector (evolocumab)Indica tions:Obstructive sleep apnea,Heart failure, systolic, due to CAD (HCC),Dyslipidemia , goal LDL below 70,Chronic ischemic heart disease,Tobacco use disorder,Coronary artery disease involving washoe coronary artery of washoe heart without angina pectoris Inject 140 mg (1 pen) under the skin every 14 days. 6 mL 3 3 Active Tamsulosin HCl 0.4 MG Oral Capsule (Flomax) TAKE 1 CAPSULE BY MOUTH ONCE DAILY IN THE MORNING 30 Capsule 11 3 024 Discontinued Eliquis 5 MG Oral Tablet (Apixaban) TAKE 1 TABLET BY MOUTH TWICE DAILY 60 Tablet 11 3 024 Discontinued Potassium Chloride ER 10 MEQ Oral Tablet Extended ReleaseIndications :HTN, goal below 140/90,Paroxysmal atrial fibrillation (HCC),LBBB (left bundle branch block) TAKE 2 TABLETS BY MOUTH ONCE DAILY IN THE MORNING AND ONE TAB IN THE EVENING 270 Tablet 3 3 024 Discontinued(Re fill) Desvenlafaxine Succinate ER 50 MG Oral Tablet Extended Release 24 Hour (Pristiq)Indicatio ns:Chronic bilateral low back pain without sciatica,Moderate episode of recurrent major depressive disorder (HCC) TAKE 1 TABLET BY MOUTH ONCE DAILY IN THE MORNING 30 Tablet 5 3 024 Discontinued(Me dication/Dose Changed) Albuterol Sulfate (2.5 MG/3ML) 0.083% Inhalation Nebulization Solution (Proventil)Indicat ions:COPD, group D, by GOLD 2017 classification ([facility]) Inhale 1 Vial via nebulizer every 4 hours as needed for Wheezing. 75 mL 1 3 024 Discontinued(Re fill) Fluticasone-Salmet sixto 250-50 MCG/ACT Inhalation Aerosol Powder Breath Activated (Wixela Inhub)Indications: COPD, group D, by GOLD 2017 classification ([facility]) Inhale 1 Puff by mouth in the morning and 1 Puff before bedtime. 60 Each 12 3 024 Discontinued(Re fill) documented as of this encounter (statuses as of 11/09/2023) Active Problems Problem Noted Date Diagnosed Date Gout attack 11/03/2023 Ambulatory dysfunction 11/03/2023 Leukocytosis 11/03/2023 Hypokalemia 11/03/2023 [...] fibrillation) 09/22/2021 Atherosclerotic heart diseas e of washoe coronary artery with other forms of angina [...] untreated, BMI 43.71 kg/m, NECK: 21 inches, [place] 01/27, sent for bipap titration study 01/11/11 case per [facility] completed ICD-10 update of inactive term Last Assessment & Plan: Waiting for new bipap machine BMI 35-39 ISOLATED (SEE ACTUAL BMI) 01/17/2010 Overview: Per Obesity Protocol, #19 BPH without obstruction/lower urinary tract symp toms 08/19/2009 Dyslipidemia, goal LDL below 70 07/21/2009 Overview: Per Lipid Taxonomy. documented as of this encounter (statuses as of 11/09/2023) Resolved Problems Problem Noted Date Diagnosed Date Resolved Date Acute on chronic systolic (c ongestive) heart [...] 11/22/2020 10/12/2023 Coronary artery disease invo lving washoe coronary artery of washoe heart without angina pectoris 07/06/2020 10/12/2023 Chronic [...] 09/23/201305/17 Claudication 05/13/2013 10/12/2023 [employer] Other*[id number] 04/23/2012 09/12/2016 Overview: Study Title: Genomic Markers for Patients with Cardiovascular Disease Project # [id number] Culturist: Comfort Aviles MD [phone] Impotence of organic origin 02/16/2011 01/10/2018 Shortness [...] as of this encounter (statuses as of 11/09/2023) Immunizations Name Administration Dates Next Due COVID-19 [...] 1 52 Smokeless Tobacco: Never Comments:pack per day Alcohol Use Standard Drinks/Week Comments Yes 0 [...] do you have serious difficulty h earing? No-ALEKNAGIK 11/14/2019 Are you blind or do you [...] No 11/14/2019 documented as of this encounter Miscellaneous Notes * Telephone Encounter - Mary Anne Sanon CPhT - 08/10/2023 3:40 PM EST New or re-auth: New Patient Dago Gunter needs a prior authorization for their Repatha through their [facility] insurance. ID: [id number] BIN:[id number] PCN:[id number] Target ship date is 08/16. Thank you very much, Mary Anne Sanon CPhT Food Photographer [employer] 08/10/2023,3:41 PM documented in this encounter Plan of Treatment Upcoming Encounters Date Type Department Care Team (Latest Contact Info) Description 11/14/2023 9:10 AM EDT Office Visit [address] [place] [address] Buster Jessica MD [address] [place] [address] 11/21/2023 10:55 AM EDT Hospital Encounter [facility], Operating Room [facility] [address] [place] [phone] Freeman Beaulieu, DO [address] [place] [phone] 11/21/2023 10:55 AM EDT - 11/21/2023 11:20 AM EDT Surgery OR [facility], Operating Room [facility] [address] [place] [phone] Freeman Beaulieu, DO [address] [place] [phone] INJECTION SACROILIAC JOINT 11/22/2023 10:00 AM EDT Home Visit [facility] [address] [place] [address] Lisa Tenorio RN [address] [place] [address] 11/23/2023 1:45 PM EDT Rehab Services Physical Therapy [facility] 68 [facility] [address] [place] [address] Marleni Quarles, PT [address] [place] [address] 01/15/2024 10:40 AM EDT Office Visit Sleep Disorders Ctr [facility] [address] [place] [phone] Clair Quarles, DO [address] [place] [address] 04/22/2024 9:30 AM EDT Cardiac Studies Cardiology, [facility] 132 [facility] [place] [address] [facility] [address] [place] [address] 05/19/2024 9:30 AM EDT Appointment Radiology, [facility] [address] [place] [address] Scheduled Procedures Name Priority Associated [...] ASSESSMENT COMPLETED IN PAST YEAR FOR COPD 11/02/2024 11/03/2023 Albumin/Creatinine Ratio 06/06/2026 06/06/2023 COLONOSCOPY-EVERY 5 YRS AGES 18-100 10/28/2027 10/27/2022, 04/21/2014, 04/21/2014, Additional history exists DTaP,Tdap,and Td Vaccines (3 - Td or Tdap) 04/13/2030 04/13/2020 (Declined), 08/19/2009 Alpha-1 Antitrypsin Completed 02/19/2020 Pneumococcal Vaccine: 65+ Years Completed 05/27/2020, 12/02/2018, 09/10/2008 LUNG CANCER SCREENING - USE SMARTSET 81376 Completed 08/22/2022, 05/22/2022, 02/21/2021, Additional history exists [...] this encounter Medical Devices Implanted Type Area Bottler Device Identifier Shelf Expiration Date Model / Serial / Lot 32mm X 109mm, Zenith Fenestrated Aaa Endovascular Proximal Body Graft, Two Proximal Internal Stent Implanted:Qty: 1 on 04/15/2018 by Evens Hoyt MD [place] [facility] N/A: Aorta [facility] 03/20/2021 ZFKEDAR-P-2- 32-109-R / / [id number] Stent Graft [id number] - [id number] - [id number] Implanted:Qty: 1 on 04/15/2018 by Evens Hoyt MD at [place] [facility] Right: Renal Artery GETINGE : MAQUET 11/30/2020 11555 / [id number] / [id number] Stent Graft [id number] - [id number] - [id number] Implanted:Qty: 1 on 04/15/2018 by Evens Hoyt MD at [place] [facility] Right: Renal Artery GETINGE : MAQUET 11/30/2020 07498 / [id number] / [id number] 28mm X 76mm Distal, 12mm Ipsilateral Leg, Zenith Fenestrated Aaa Endovascular Distal Bifurcated Body Graft Implanted:Qty: 1 on 04/15/2018 by Evens Hoyt MD at OR [facility] N/A: Aorta [employer] 03/20/2021 LISA-D-12 -28-76-C / / [id number] Graft Iliac Leg Spirlz [id number] - [id number] Implanted:Qty: 1 on 04/15/2018 by Evens Hoyt MD at OR [facility] Left: Iliac [employer] 09/14/2020 [id number] / / [id number] Graft Iliac Leg Spirlz 20p77lb - [id number] Implanted:Qty: 1 on 04/15/2018 by Evens Hoyt MD at OR [facility] Right: Iliac [employer] 11/09/2020 [id number] / / [id number] Transfixation Pin 6mm 294.950 - [id number] Implanted:Qty: 1 on 11/14/2019 by Mayank Friedman MD at OR [facility] Right: Ankle SYNTHES 294.950 / / Description:transfixation pi n Screw Schanz 5.9zkm468nn - [id number] Implanted:Qty: 2 on 11/14/2019 by Mayank Friedman MD at OR [facility] Right: Leg Lower SYNTHES 294.786SH A / / Description:self drilling sh antz screws 5.0mm x 200mm Esthela Trauma 2.7 Lock Screw 16mm Implanted:Qty: 2 on 11/27/2019 by Donavan Ramirez Jr., MD at [place] [facility] Right: Ankle ESTHELA : TRAUMA [id number] / / Description:hardware set Esthela Trauma 2.7 Lock Screw 14mm Implanted:Qty: 1 on 11/27/2019 by Donavan Ramirez Jr., MD at OR [facility] Right: Ankle ESTHELA : TRAUMA [id number] / / [place] Trauma 3.5 Screw 14mm Implanted:Qty: 1 on 11/27/2019 by Donavan Ramirez Jr., MD at OR [facility] Right: Ankle ESTHELA : TRAUMA [id number] / / Description:hardware set [place] Trauma 3.5 Screw 18mm Implanted:Qty: 1 on 11/27/2019 by Donavan Ramirez Jr., MD at [place] [facility] Right: Ankle ESTHELA : TRAUMA [id number] / / Description:hardware set [place] 3.5 Lockscrew 16mm Implanted:Qty: 1 on 11/27/2019 by Donavan Ramirez Jr., MD at [place] [facility] Right: Ankle [id number] / / Esthela 2.0 Plate Implanted:Qty: 1 on 11/27/2019 by Donavan Ramirez Jr., MD at [place] [facility] Right: Ankle [id number] / / [place] 2.0 Lock Screw Implanted:Qty: 2 on 11/27/2019 by Donavan Ramirez Jr., MD at OR [facility] Right: Ankle [id number] / / Esthela 2.0 Lock Screw Implanted:Qty: 1 on 11/27/2019 by Donavan Ramirez Jr., MD at [place] [facility] Right: Ankle [id number] / / [place] 2.0 Lock Screw Implanted:Qty: 1 on 11/27/2019 by Donavan Ramirez Jr., MD at OR [facility] Right: Ankle [id number] / / Plate Fib 5h - [id number] Implanted:Qty: 1 on 11/27/2019 by Donavan Ramirez Jr., MD at [place] [facility] Right: Ankle ESTHELA : TRAUMA / [...] the patient have Health Care Power of Automotive Technician Instructor? No Code Status History Code Status Date [...] the patient have Health Care Power of Automotive Technician Instructor? No Full Code 02/17/2019 12:06 PM 02/18/2019 1:09 PM This order reflects the patients wishes and were consensually agreed upon. Question Answer Comments Discussion of Advance Directives occurred with: Not Discussed Does the patient have a Living Will? No Does the patient have Health Care Power of Automotive Technician Instructor? No Care Teams Porcelain Enamel Sprayer Relationship Specialty Start Date End Date Buster Jessica MD [facility] [place] [id number] PCP - General Family Medicine 09/11/22 documented as of this encounter
--- OUTSIDE RECORDS SUMMARY | 2023-12-11 18:46 | External Medical Summary | Summary of Care ---
Author Name Unknown Organization [facility] Address [address] [place] [address] Phone [phone] Care Team Providers Care Assistant Name Role Phone Buster Jessica MD Primary Care [facility] Reason for Visit * Reason Onset Date Comments [facility]: Maintenance 11/15/2023 Encounter Details Date Type Department Care Team (Late st Contact Info) Description 11/15/2023 Telephone [facility] [place] [address] [place] [address] Xochitl Marina, [facility] [address] [place] [address] [facility]: Maintenance Allergies Active Allergy [...] failure, systolic, due to CAD ([facility]) Take 1 tablet by mouth every [...] (pLAVix)Indications: PAD (peripheral artery disease) ([facility]),Coronary artery disease involving [place] coronary artery of [place] heart without angina pectoris TAKE ONE TABLET BY MOUTH ONCE DAILY 90 Tablet 3 03/13/2023 Active Famotidine 20 MG Oral Tablet (Pepcid) TAKE 1 TABLET BY MOUTH TWICE DAILY (MORNING AND AT BEDTIME) 180 Tablet 3 04/30/2023 Active Spironolactone 25 MG Oral Tablet (Aldactone)Indicatio ns:Coronary artery disease involving [place] coronary artery of [place] heart without angina pectoris,Heart failure, systolic, due to CAD ([facility]),Chronic ischemic heart disease,HTN, goal below 140/90 TAKE ONE TABLET BY MOUTH ONCE DAILY 90 Tablet 3 05/14/2023 Active Losartan Potassium 25 MG Oral Tablet (Cozaar)Indications: PAD (peripheral artery disease) ([facility]),Coronary artery disease involving [place] coronary artery of [place] heart without angina pectoris TAKE ONE TABLET [...] failure, systolic, due to CAD ([facility]),Dyslipidemia, goal LDL below 70,Chronic ischemic heart disease,Tobacco use disorder,Coronary artery disease involving [place] coronary artery of [place] heart without angina pectoris Inject 140 mg [...] suspected opioid overdose. Seek immediate medical attention. [email or web address] 1 Each 3 09/15/2023 Active Additional Information [...] D, by GOLD 2017 classification ([facility]) Inhale 1 Puff by mouth in the morning and 1 Puff before bedtime. 180 Each 12 10/29/2023 Active Albuterol Sulfate (2.5 MG/3ML) 0.083% Inhalation Nebulization Solution (Proventil)Indicatio ns:COPD, group D, by GOLD 2017 classification ([facility]) Inhale 1 Vial via nebulizer every [...] Pain, Severe. 120 Tablet 0 11/14/2023 Active [id number]-6-[id number] Ethyl Esters 1 GM Oral Capsule (Lovaza)Indications: [...] fibrillation) 09/22/2021 Atherosclerotic heart diseas e of [place] coronary artery with other forms of angina [...] untreated, BMI 43.71 kg/m, NECK: 21 inches, [place] 624, sent for bipap titration study 01/11/11 [...] 11/22/2020 10/12/2023 Coronary artery disease invo lving [place] coronary artery of [place] heart without angina pectoris 07/06/2020 10/12/2023 Chronic [...] 09/23/201305/17 Claudication 05/13/2013 10/12/2023 [employer] Other*[id number] 04/23/2012 09/12/2016 Overview: Study Title: Genomic Markers for Patients with Cardiovascular Disease Project # [id number] Electrical Design Technologist: Comfort Aviles MD [phone] Impotence of organic origin 02/16/2011 01/10/2018 Shortness [...] have serious difficulty hearing? Yes-very [place] 11/03/2023 Are you blind or do you [...] encounter Miscellaneous Notes * Telephone Encounter - Xochitl Marina LCSW - 11/15/2023 2:56 PM EDT Matt at [facility] Team Telephone Contact 11/15/23: CELIO IRBY 'Lynn" to offer [facility] therapy services. Lynn accepted offer of services and agreed to first available appt for 12/12/23 at 12:15PM. CELIO Tsai at [facility] documented in this encounter Plan of Treatment Upcoming Encounters Date Type Department Care Team (Latest Contact Info) Description 11/16/2023 10:30 AM EDT Hospital Encounter [facility], Operating Room [facility] [address] [place] [address] Freeman Beaulieu, [address] [place] [place] [phone] 11/16/2023 10:30 AM EDT - 11/16/2023 10:55 AM EDT Surgery OR [facility], Operating Room [facility] [address] [place] [address] Freeman Beaulieu, DO [address] [place] [place] [id number] INJECTION SACROILIAC JOINT 11/22/2023 10:00 AM EDT Home Visit [facility], [facility] [address] [place] [address] Lisa Tenorio RN [address] [place] [address] 11/23/2023 1:45 PM EDT Rehab Services Physical Therapy [address] [place] [phone] Marleni Quarles, PT [address] [place] [address] 12/12/2023 9:00 AM EDT Home Visit [facility], [facility] [address] [place] [address] Xochitl Marina, [employer]TER [address] [place] [address] 12/13/2023 9:50 AM EDT Office Visit Family Practice [facility] [address] [place] [phone] Buster Jessica MD [address] [place] [address] 01/15/2024 10:40 AM EDT Office Visit Sleep Disorders Ctr [facility] [address] [place] [phone] Clair Quarles, DO [address] [place] [place] [address] 04/22/2024 9:30 AM EDT Cardiac Studies Cardiology, [facility] [address] [place] [address] [place], Pacer Clinic [facility] [address] [place] [address] 05/19/2024 9:30 AM EDT Appointment Radiology, [place] [id number] [place] [address] Scheduled Procedures Name Priority Associated Diagnoses Date/Ti me INJECTION SACROILIAC JOINT Inflammation of sacroiliac joint (HCC) 11/16/2023 10:30 AM EDT COLONOSCOPY FLEXIBLE PROXIMAL DIAGNOSTIC Recall History of colon polyps Health Maintenance Due Date Last Done Comments *ADVANCE DIRECTIVE NOT ON FILE 05/28/2019 COVID-19 Vaccine ( - season) 2023 11/08/2020, 10/08/2020 DISCUSS TOBACCO CESSATION (REFER TO SMARTSET #6594) 06/02/2023 06/02/2022, 07/21/2020 Depression, Most Recent Score [...] 09/10/2008 LUNG CANCER SCREENING - USE SMARTSET 87902 Completed 08/22/2022, 05/22/2022, 02/21/2021, Additional history exists [...] this encounter Medical Devices Implanted Type Area Spark Tester Device Identifier Shelf Expiration Date Model / Serial / Lot 32mm X 109mm, Zenith Fenestrated Aaa Endovascular Proximal Body Graft, Two Proximal Internal Stent Implanted:Qty: 1 on 04/15/2018 by Evens Hoyt MD at OR [facility] N/A: Aorta [facility] 03/20/2021 ZFKEDAR-P-2- 32-109-R / / [id number] Stent Graft [id number] - [id number] - [id number] Implanted:Qty: 1 on 04/15/2018 by Evens Hoyt MD at OR [facility] Right: Renal Artery GETINGE : MAQUET 11/30/2020 [id number] / [id number] / [id number] Stent Graft [id number] - [id number] - [id number] Implanted:Qty: 1 on 04/15/2018 by Evens Hoyt MD at OR [facility] Right: Renal Artery GETINGE : MAQUET 11/30/2020 [id number] / [id number] / [id number] 28mm X 76mm Distal, 12mm Ipsilateral Leg, Zenith Fenestrated Aaa Endovascular Distal Bifurcated Body Graft Implanted:Qty: 1 on 04/15/2018 by Evens Hoyt MD at OR [facility] N/A: Aorta [facility] 03/20/2021 ZFKEDAR-D-12 -28-76-C / / [id number] Graft Iliac Leg Spirlz 13g15zl - [id number] Implanted:Qty: 1 on 04/15/2018 by Evens Hoyt MD at OR [facility] Left: Iliac [employer] 09/14/2020 [id number] / / [id number] Graft Iliac Leg Spirlz 61h52ay - [id number] Implanted:Qty: 1 on 04/15/2018 by Evens Hoyt MD at OR [facility] Right: Iliac [employer] 11/09/2020 [id number] / / [id number] Transfixation Pin 6mm 294.950 - [id number] Implanted:Qty: 1 on 11/14/2019 by Mayank Friedman MD at OR [facility] Right: Ankle SYNTHES 294.950 / / Description:transfixation pi n Screw Schanz 5.3ajn176nt - [id number] Implanted:Qty: 2 on 11/14/2019 by Mayank Friedman MD at OR [facility] Right: Leg Lower SYNTHES 294.786SH A / / Description:self drilling sh antz screws 5.0mm x 200mm Esthela Trauma 2.7 Lock Screw 16mm Implanted:Qty: 2 on 11/27/2019 by Donavan Ramirez Jr., MD at OR [facility] Right: Ankle ESTHELA : TRAUMA [id number] / / Description:hardware set [place] Trauma 2.7 Lock Screw 14mm Implanted:Qty: 1 on 11/27/2019 by Donavan Ramirez Jr., MD at OR [facility] Right: Ankle ESTHELA : TRAUMA [id number] / / Esthela Trauma 3.5 Screw 14mm Implanted:Qty: 1 on 11/27/2019 by Donavan Ramirez Jr., MD at OR [facility] Right: Ankle ESTHELA : TRAUMA [id number] / / Description:hardware set Esthela Trauma 3.5 Screw 18mm Implanted:Qty: 1 on 11/27/2019 by Donavan Ramirez Jr., MD at OR [facility] Right: Ankle ESTHELA : TRAUMA [id number] / / Description:hardware set Esthela 3.5 Lockscrew 16mm Implanted:Qty: 1 on 11/27/2019 by Donavan Ramirez Jr., MD at OR [facility] Right: Ankle [id number] / / [place] 2.0 Plate Implanted:Qty: 1 on 11/27/2019 by Donavan Ramirez Jr., MD at OR [facility] Right: Ankle [id number] / / [place] 2.0 Lock Screw Implanted:Qty: 2 on 11/27/2019 by Donavan Ramirez Jr., MD at [facility] Right: Ankle [id number] / / [place] 2.0 Lock Screw Implanted:Qty: 1 on 11/27/2019 by Donavan Ramirez Jr., MD at [facility] Right: Ankle [id number] / / Esthela 2.0 Lock Screw Implanted:Qty: 1 on 11/27/2019 by Donavan Ramirez Jr., MD at OR [facility] Right: Ankle [id number] / / Plate Fib 5h - [id number] Implanted:Qty: 1 on 11/27/2019 by Donavan Ramirez Jr., MD at OR [facility] Right: Ankle ESTHELA : TRAUMA / / [...] patient have Health Care Power of Director Packaging? No Code Status History Code Status Date [...] patient have Health Care Power of Director Packaging? No Full Code 02/17/2019 12:06 PM 02/18/2019 1:09 PM This order reflects the patients wishes and were consensually agreed upon. Question Answer Comments Discussion of Advance Directives occurred with: Not Discussed Does the patient have a Living Will? No Does the patient have Health Care Power of Director Packaging? No Care Teams Assistant Relationship Specialty Start Date End Date Buster Jessica MD [address] [place] [address] [place] [phone] PCP - General Family Medicine 09/11/22 documented as of this encounter
--- OUTSIDE RECORDS SUMMARY | 2023-12-11 18:46 | External Medical Summary | Summary of Care ---
Author Name Unknown Organization [facility] Address [address] [place] [address] Phone [phone] Care Team Providers Care Quartz Cutter Name Role Phone Buster Jessica MD Primary [facility] Reason for Visit * Reason Onset Date Comments Hospital Follow-Up Patient state s he is here today for a hospital discharge appointment.Patient would like to discuss his diagnosis of goutPatient would also like to discuss medication refills Hospital Follow-Up 11/14/2023 Encounter Details Date Type Department Care Team ([facility] Contact Info) Description 11/14/2023 9:10 AM EDT Office Visit [address] [phone] Buster Jessica MD [address] [place] [address] Hospital discharge follow-up*; Acute drug-induced gout of multiple sites; Chronic bilateral low back pain without sciatica; Acute drug-induced gout of right ankle; Dyslipidemia, goal LDL below 70 Allergies Active Allergy Reactions Criticality Noted Date Comments Atorvastatin Muscle pain,Unknown 01/18/2015 Medication intolerance, not an allergy Sacubitril-Valsartan Other (Please comment) 09/17/2020 Throat swelled Sacubitril High 07/20/2023 Other Reaction(s): THROAT SWELLING Simvastatin Low 06/23/2022 Other reaction(s): MUSCLE ACHES Valsartan High 07/20/2023 Other Reaction(s): THROAT SWELLING documented as of this encounter (statuses as of 11/14/2023) Medications Medication Sig Dispensed Refills Start Date End Date Status Torsemide 100 MG Oral Tablet (Demadex)Indication s:Heart failure, systolic, due to CAD ([facility]) Take 1 tablet by mouth every morning. [...] Active Clopidogrel Bisulfate 75 MG Oral Tablet (pLAVix)Indications :PAD (peripheral artery disease) ([facility]),Coronary artery disease involving [place] croix coronary artery of [place] cro[place] heart without angina pectoris TAKE ONE TABLET BY MOUTH ONCE DAILY 90 Tablet 3 3 Active Famotidine 20 MG Oral Tablet (Pepcid) TAKE 1 TABLET BY MOUTH TWICE DAILY (MORNING AND AT BEDTIME) 180 Tablet 3 3 Active Spironolactone 25 MG Oral Tablet (Aldactone)Indicati ons:Coronary artery disease involving [place] croix coronary artery of [place] croix heart without angina pectoris,Heart failure, systolic, due to CAD ([facility]),Chronic ischemic heart disease,HTN, goal below 140/90 TAKE ONE TABLET BY MOUTH ONCE DAILY 90 Tablet 3 3 Active Losartan Potassium 25 MG Oral Tablet (Cozaar)Indications :PAD (peripheral artery disease) ([facility]),Coronary artery disease involving [place] croix coronary artery of [place] croix heart without angina pectoris TAKE ONE TABLET BY MOUTH ONCE DAILY 90 Tablet 3 3 Active Baclofen 20 MG Oral TabletIndications:C hronic bilateral low back pain without sciatica Take 1 Tablet by mouth 3 times a day as needed for Muscle spasms. 90 Tablet 5 3 Active Repatha SureClick 140 MG/ML Subcutaneous Solution Auto-injector (evolocumab)Indicat ions:Obstructive sleep apnea,Heart failure, systolic, due to CAD (HCC),Dyslipidemia, goal LDL below 70,Chronic ischemic heart disease,Tobacco use disorder,Coronary artery disease involving [place] croix coronary artery of [place] croix heart without angina pectoris Inject 140 mg [...] 4 Active ARIPiprazole 2 MG Oral Tablet (Abilify)Indication s:Moderate episode of recurrent major depressive disorder (HCC) Take 1 Tablet by mouth in the morning. 30 Tablet 1 4 Active Naloxone HCl 4 MG/0.1ML Nasal Liquid (Narcan Nasal) Administer 1 spray into 1 nostril for suspected opioid overdose. Seek immediate medical attention. [email or web address] 1 Each 3 4 Active Additional Information Patient not taking.Reported on 10/31/2023 Desvenlafaxine Succinate ER 100 MG Oral Tablet Extended Release 24 Hour (Pristiq)Indication s:Moderate episode of recurrent major depressive disorder (HCC) Take 1 Tablet by mouth in the morning. 30 Tablet 11 4 Active metOLazone 2.5 MG Oral Tablet (Zaroxolyn)Indicati ons:Ischemic cardiomyopathy Take 1 Tablet by mouth once a week. take 30 minutes prior to torsemide 4 Tablet 5 4 Active Fluticasone-Salmete rol 250-50 MCG/ACT Inhalation Aerosol Powder Breath Activated (Wixela Inhub)Indications:C OPD, group D, by GOLD 2017 classification ([facility]) Inhale 1 Puff by mouth in the morning and 1 Puff before bedtime. 180 Each 12 4 Active Albuterol Sulfate (2.5 MG/3ML) 0.083% Inhalation Nebulization Solution (Proventil)Indicati ons:COPD, group D, by GOLD 2017 classification ([facility]) Inhale 1 Vial via nebulizer every 4 hours as needed for Wheezing. 75 mL 1 4 Active Eliquis 5 MG Oral Tablet (Apixaban)Indicatio ns:Persistent atrial fibrillation (HCC) TAKE 1 TABLET BY MOUTH TWICE DAILY 60 Tablet 11 4 Active Tamsulosin HCl 0.4 MG Oral Capsule (Flomax)Indications [...] 4 Active predniSONE 20 MG Oral Tablet (Deltasone)Indicati ons:Acute drug-induced gout of multiple sites Take 2 Tablets by mouth daily for 5 days, THEN 1 Tablet daily for 7 days, THEN 0.5 Tablets daily for 8 days. 21 Tablet 0 4 12/04/19 24 Active Allopurinol 100 MG Oral Tablet (Zyloprim)Indicatio ns:Acute drug-induced gout of multiple sites Take 2 Tablets by mouth in the morning. 60 Tablet 5 4 Active HYDROcodone-Acetami nophen 7.5-325 MG Oral TabletIndications:C hronic bilateral low back pain without sciatica,Acute drug-induced gout of right ankle Take 1 Tablet by mouth every 6 hours as needed for Pain, Severe. 120 Tablet 0 4 Active Ugove-2-qkrh Ethyl Esters 1 GM Oral Capsule (Lovaza)Indications :Dyslipidemia, goal LDL below 70 Take 2 Capsules by mouth in the morning and 2 Capsules before bedtime. 120 Capsule 5 4 Active HYDROcodone-Acetami nophen 7.5-325 MG Oral TabletIndications:C hronic bilateral low back pain without sciatica,Acute drug-induced gout of right ankle Take 1 Tablet by mouth every 6 hours as needed for Pain, Severe. 30 Tablet 0 4 11/14/19 24 Discontinu ed(Refill) predniSONE 20 MG Oral Tablet (Deltasone) Take 2 Tablets by mouth daily for 5 days, THEN 1 Tablet daily for 5 days, THEN 0.5 Tablets daily for 5 days. 18 Tablet 0 4 11/14/19 24 Discontinu ed(Refill) Allopurinol 100 MG Oral Tablet (Zyloprim)Indicatio ns:Acute gout of right hand, unspecified cause Take 2 Tablets by mouth in the morning. 60 Tablet 0 4 11/14/19 24 Discontinu ed(Refill) documented as of this encounter (statuses as of 11/14/2023) Active Problems Problem Noted Date Diagnosed Date [...] fibrillation) 09/22/2021 Atherosclerotic heart diseas e of [place] croix coronary artery with other forms of angina [...] untreated, BMI 43.71 kg/m, NECK: 21 inches, [place] 6/24, sent for bipap titration study 01/11/11 case per [facility] completed ICD-10 update of inactive term Last Assessment & Plan: Waiting for new bipap machine BMI 35-39 ISOLATED (SEE ACTUAL BMI) 01/17/2010 Overview: Per Obesity Protocol, #19 BPH without obstruction/lower urinary tract symp toms 08/19/2009 Dyslipidemia, goal LDL below 70 07/21/2009 Overview: Per Lipid Taxonomy. documented as of this encounter (statuses as of 11/14/2023) Resolved Problems Problem Noted Date Diagnosed Date [...] 11/22/2020 10/12/2023 Coronary artery disease invo lving [place]. croix coronary artery of [place] croix heart without angina pectoris 07/06/2020 10/12/2023 Chronic [...] 09/23/201305/17 Claudication 05/13/2013 10/12/2023 [employer] Other*[id number] 04/23/2012 09/12/2016 Overview: Study Title: Genomic Markers for Patients with Cardiovascular Disease Project # [id number] Registered Dietician: Comfort Aviles MD [phone] Impotence of organic origin 02/16/2011 01/10/2018 Shortness [...] as of this encounter (statuses as of 11/14/2023) Immunizations Name Administration Dates Next Due COVID-19 [...] Sign Reading Time Taken Comments Blood Pressure 116/74 11/14/2023 9:27 AM EDT Pulse 93 11/14/2023 9:27 AM EDT Temperature 36 C (96.8 F) 11/14/2023 9:27 AM EDT Respiratory Rate 18 11/14/2023 9:27 AM EDT Oxygen Saturation 99% 11/14/2023 9:27 AM EDT Inhaled Oxygen Concentration - - Weight 116.8 kg (257 lb 8 oz) 11/14/2023 9:27 AM EDT Height - - Body Mass Index 35.91 11/03/2023 1:00 AM EDT documented in this encounter Functional Status Functional Status Response Date of Assess ment Are you deaf or do you have serious difficulty hearing? Yes-very [place] 11/03/2023 Are you blind or do you [...] as of this encounter Progress Notes * Buster Jessica MD - 11/14/2023 9:37 AM EDT SUBJECTIVE: Dago Gunter is a 73 year old male. Chief Complaint Patient presents with Hospital Follow-Up Patient states he is here today for a hospital discharge appointment. Patient would like to discuss his diagnosis of gout Patient would also like to discuss medication refills Hospital Follow-Up Recent Admission: Patient was recently admitted to [facility] on 11/02/2023. The date of discharge was 11/03/2023. Discharge report received and reviewed. Patient was admitted with ambulatory dysfunction due to gout attack on the right lower extremity. He was started on prednisone and allopurinol dose was increased. HPI: At home he is still having pain on his left knee and right ankle. Has warmth but denies any swelling or redness. Has been taking hydrocodone 7.5/325 1 to 2 tablets every 12 hours, no more than 4 per day. Denies any constipation or diarrhea. Denies chest pain, palpitations or shortness of breath. Asked about changes in diet. He enjoys lugo Pepsi. Advised to decrease fructose corn syrup. Finish prednisone and felt better. He feels the pain is coming back. Patient Active Problem List Diagnosis Code Dyslipidemia, goal LDL below 70 E78.5 BPH without obstruction/lower urinary tract symptoms N40.0 BMI 35-39 ISOLATED (SEE ACTUAL BMI) E66.9 Obstructive sleep apnea G47.33 Hx of nonmelanoma skin cancer Z85.828 H/O dysplastic nevus Z86.018 Thoracic aortic aneurysm without rupture ([facility]) I71.20 Basal cell carcinoma (BCC) of right ala nasi C44.311 Squamous cell carcinoma of ala nasi C44.321 COPD, group D, by GOLD 2017 classification ([facility]) J44.9 Basal cell carcinoma (BCC) of right nasal tip C44.311 Closed fracture of right ankle with routine healing S82.891D PVD (peripheral vascular disease) ([facility]) I73.9 Controlled substance agreement signed Z79.899 LBBB (left bundle branch block) I44.7 Biventricular ICD (implantable cardioverter-defibrillator) in place Z95.810 Tobacco dependence F17.200 Adjustment disorder with anxious mood F43.22 Pulmonary emphysema ([facility]) J43.9 PAF (paroxysmal atrial fibrillation) ([facility]) I48.0 Atherosclerotic heart disease of [place] croix coronary artery with other forms of angina pectoris ([facility]) I25.118 Moderate episode of recurrent major depressive disorder ([facility]) F33.1 Elevated uric acid in blood E79.0 Right lower lobe pulmonary nodule R91.1 Presence of coronary angioplasty implant and graft Z95.5 Chronic bilateral low back pain without sciatica M54.50, G89.29 Juxtarenal abdominal aortic aneurysm (AAA) without rupture ([facility]) I71.42 Other persistent atrial fibrillation ([facility]) I48.19 Alcohol consumption binge drinking F10.10 Claustrophobia F40.240 Positive colorectal cancer screening using Cologuard test R19.5 Chronic systolic congestive heart failure ([facility]) I50.22 Cardiomyopathy ([facility]) I42.9 Neuropathic pain of both feet G57.93 Hypertension I10 Difficulty using continuous positive airway pressure (CPAP) device Z78.9 Ambulatory dysfunction R26.2 Leukocytosis D72.829 Hypokalemia E87.6 Current Outpatient Medications Medication Sig Dispense Refill Torsemide 100 MG Oral Tablet (Demadex) Take 1 tablet by mouth every morning. Take 1 tab on Sunday, Sunday and Sunday afternoon. (Patient taking differently: Take 1 tablet by mouth every morning. Take an additional tablet on Sunday, Sunday and Sunday afternoon only.) 150 Tablet 3 Vitamin C 1000 MG Oral Tablet Take 1 Tablet by mouth in the morning. Metoprolol Succinate ER 100 MG Oral Tablet Extended Release 24 Hour (toPROL XL) TAKE ONE TABLET BY MOUTH ONCE DAILY 90 Tablet 3 Clopidogrel Bisulfate 75 MG Oral Tablet (pLAVix) TAKE ONE TABLET BY MOUTH ONCE DAILY 90 Tablet 3 Famotidine 20 MG Oral Tablet (Pepcid) TAKE 1 TABLET BY MOUTH TWICE DAILY (MORNING AND AT BEDTIME) 180 Tablet 3 Spironolactone 25 MG Oral Tablet (Aldactone) TAKE ONE TABLET BY MOUTH ONCE DAILY 90 Tablet 3 Losartan Potassium 25 MG Oral Tablet (Cozaar) TAKE ONE TABLET BY MOUTH ONCE DAILY 90 Tablet 3 Baclofen 20 MG Oral Tablet Take 1 Tablet by mouth 3 times a day as needed for Muscle spasms. 90 Tablet 5 Repatha SureClick 140 MG/ML Subcutaneous Solution Auto-injector (evolocumab) Inject 140 mg (1 pen) under the skin every 14 days. 6 mL 3 Metoprolol Succinate ER 50 MG Oral Tablet Extended Release 24 Hour (Toprol XL) One tablet by mouth daily at bedtime, this is in addition to the previous prescription for 100 milligrams daily in the morning. 90 Tablet 3 Digoxin 125 MCG Oral Tablet (Lanoxin) Take 1 Tablet by mouth in the morning. 90 Tablet 3 ARIPiprazole 2 MG Oral Tablet (Abilify) Take 1 Tablet by mouth in the morning. 30 Tablet 1 Desvenlafaxine Succinate ER 100 MG Oral Tablet Extended Release 24 Hour (Pristiq) Take 1 Tablet by mouth in the morning. 30 Tablet 11 metOLazone 2.5 MG Oral Tablet (Zaroxolyn) Take 1 Tablet by mouth once a week. take 30 minutes priorto torsemide 4 Tablet 5 Fluticasone-Salmeterol 250-50 MCG/ACT Inhalation Aerosol Powder Breath Activated (Junaidela Inhub) Inhale 1 Puff by mouth in the morning and 1 Puff before bedtime. 180 Each 12 Albuterol Sulfate (2.5 MG/3ML) 0.083% Inhalation Nebulization Solution (Proventil) Inhale 1 Vial via nebulizer every 4 hours as needed for Wheezing. 75 mL 1 Eliquis 5 MG Oral Tablet (Apixaban) TAKE 1 TABLET BY MOUTH TWICE DAILY 60 Tablet 11 Tamsulosin HCl 0.4 MG Oral Capsule (Flomax) Take 2 Capsules by mouth every evening. 180 Capsule 1 Potassium Chloride ER 10 MEQ Oral Tablet Extended Release Take 2 Tablets by mouth in the morning and 2 Tablets before bedtime. 360 Tablet 1 predniSONE 20 MG Oral Tablet (Deltasone) Take 2 Tablets by mouth daily for 5 days, THEN 1 Tablet daily for 7 days, THEN 0.5 Tablets daily for 8 days. 21 Tablet 0 Allopurinol 100 MG Oral Tablet (Zyloprim) Take 2 Tablets by mouth in the morning. 60 Tablet 5 HYDROcodone-Acetaminophen 7.5-325 MG Oral Tablet Take 1 Tablet by mouth every 6 hours as needed forPain, Severe. 120 Tablet 0 Pilpq-0-zezr Ethyl Esters 1 GM Oral Capsule (Lovaza) Take 2 Capsules by mouth in the morning and 2 Capsules before bedtime. 120 Capsule 5 Naloxone HCl 4 MG/0.1ML Nasal Liquid (Narcan Nasal) Administer 1 spray into 1 nostril for suspectedopioid overdose. Seek immediate medical attention. [email or web address] (Patient not taking: Reported on 10/31/2023) 1 Each 3 No current facility-administered medications for this visit. Current and discharge medications have been reconciled. Review of patient's allergies indicates: Allergen Reactions Sacubitril Other Reaction(s): THROAT SWELLING Valsartan Other Reaction(s): THROAT SWELLING Atorvastatin Muscle pain and Unknown Medication intolerance, not an allergy Entresto [Sacubitril-Valsartan] Other (Please comment) Throat swelled Simvastatin Other reaction(s): MUSCLE ACHES OBJECTIVE: BP 116/74 | Pulse 93 | Temp 36 C (96.8 F) (Tympanic) | Resp 18 | Wt 116.8 kg (257 lb 8 oz) | SpO2 99% | BMI 35.91 kg/m | BSA 2.42 m REVIEW OF SYSTEMS: PHYSICAL EXAM: BP 116/74 | Pulse 93 | Temp 36 C (96.8 F) (Tympanic) | Resp 18 | Wt 116.8 kg (257 lb 8 oz) | SpO2 99% | BMI 35.91 kg/m | BSA 2.42 m Physical Exam Constitutional: General: He is not in acute distress. Appearance: Normal appearance. He is obese. He is not ill-appearing or toxic-appearing. HENT: Mouth/Throat: Mouth: Mucous membranes are dry. Eyes: Conjunctiva/sclera: Conjunctivae normal. Cardiovascular: Rate and Rhythm: Normal rate. Pulmonary: Effort: Pulmonary effort is normal. Breath sounds: Normal breath sounds. Abdominal: General: Bowel sounds are normal. Palpations: Abdomen is soft. There is no mass. Tenderness: There is no abdominal tenderness. Lymphadenopathy: Cervical: No cervical adenopathy. Neurological: General: No focal deficit present. Mental Status: He is alert and oriented to person, place, and time. Psychiatric: Mood and Affect: Mood normal. Behavior: Behavior normal. ASSESSMENT: Hospital discharge follow-up (Primary) - DISCH MED RECON CUR MED LIS Acute drug-induced gout of multiple sites - predniSONE 20 MG Oral Tablet (Deltasone); Take 2 Tablets by mouth daily for 5 days, THEN 1 Tabletdaily for 7 days, THEN 0.5 Tablets daily for 8 days. - Allopurinol 100 MG Oral Tablet (Zyloprim); Take 2 Tablets by mouth in the morning. Chronic bilateral low back pain without sciatica - HYDROcodone-Acetaminophen 7.5-325 MG Oral Tablet; Take 1 Tablet by mouth every 6 hours as needed for Pain, Severe. Acute drug-induced gout of right ankle - HYDROcodone-Acetaminophen 7.5-325 MG Oral Tablet; Take 1 Tablet by mouth every 6 hours as needed for Pain, Severe. Dyslipidemia, goal LDL below 70 - Wkvyy-4-vuiv Ethyl Esters 1 GM Oral Capsule (Lovaza); Take 2 Capsules by mouth in the morning and2 Capsules before bedtime. Repeat prednisone taper. Refill hydrocodone 7.5/325 up to 4 times a day. Handout on gout diet provided. Try to cut back on high fructose corn syrup products. Drink at least64 oz of water daily. Continue allopurinol 200 mg daily. Start Lovaza 1 g 2 capsules twice daily. Follow Up: Return in about 4 weeks (around 12/12/2023), or if symptoms worsen or fail to improve, forf/u chronic problems. | For: f/u chronic problems Buster Anguiano MD documented in this encounter Nursing Notes * Faith Villalba CCMA - 11/14/2023 9:31 AM EDT The patient has been properly identified by confirmation of name and date of . Chief Complaint Patient presents with Hospital Follow-Up Patient states he is here today for a hospital discharge appointment. Patient would like to discuss his diagnosis of gout Patient would also like to discuss medication refills documented in this encounter Plan of Treatment Upcoming Encounters Date Type Department Care Team (Latest Contact Info) Description 11/21/2023 10:55 AM EDT Hospital Encounter [facility], Operating Room [facility] [address] [place] [phone] Freeman Beaulieu, DO [address] [place] [address] 11/21/2023 10:55 AM EDT - 11/21/2023 11:20 AM EDT Surgery OR [facility], Operating Room [facility] [address] [place] [phone] Freeman Beaulieu, [address] [place] [phone] INJECTION SACROILIAC JOINT 11/22/2023 10:00 AM EDT Home Visit [facility] [place] [address] [place] [address] Lisa Tenorio RN [address] [place] [address] 11/23/2023 1:45 PM EDT Rehab Services Physical Therapy [address] [place] [address] Marleni Quarles, PT [address] [place] [address] 12/13/2023 9:50 AM EDT Office Visit [facility] [address] [place] [phone] Buster Jessica MD [address] [place] [address] 01/15/2024 10:40 AM EDT Office Visit [facility] [address] [place] [phone] Clair Quarles DO [address] [place] [address] 04/22/2024 9:30 AM EDT Cardiac Studies Cardiology, [facility] [address] [place] [address] [place], Pacer Clinic [facility] [address] [facility] [place] [address] 05/19/2024 9:30 AM EDT Appointment Radiology, [address] [address] Scheduled Procedures Name Priority Associated Diagnoses Date/Ti me INJECTION SACROILIAC JOINT Inflammation of sacroiliac joint (HCC) 11/21/2023 10:55 AM EDT COLONOSCOPY FLEXIBLE PROXIMAL DIAGNOSTIC Recall History of colon polyps Health Maintenance Due Date Last Done Comments *ADVANCE DIRECTIVE NOT ON FILE 05/28/2019 COVID-19 Vaccine ( season) 2023 11/08/2020, 10/08/2020 DISCUSS TOBACCO CESSATION (REFER TO SMARTSET #1443) 06/02/2023 06/02/2022, 07/21/2020 Depression, Most Recent Score [...] 09/10/2008 LUNG CANCER SCREENING - USE SMARTSET 39841 Completed 08/22/2022, 05/22/2022, 02/21/2021, Additional history exists [...] this encounter Medical Devices Implanted Type Area Wood Science Professor Device Identifier Shelf Expiration Date Model / Serial / Lot 32mm X 109mm, Zenith Fenestrated Aaa Endovascular Proximal Body Graft, Two Proximal Internal Stent Implanted:Qty: 1 on 04/15/2018 by Evens Hoyt MD at OR [facility] N/A: Aorta [employer] 03/20/2021 ZFEN-P-2- [id number] / / [id number] Stent Graft [id number] - [id number] - [id number] Implanted:Qty: 1 on 04/15/2018 by Evens Hoyt MD at OR [facility] Right: Renal Artery GETINGE : JULIANNE 11/30/2020 [id number] / [id number] / [id number] Stent Graft [id number] - [id number] - [id number] Implanted:Qty: 1 on 04/15/2018 by Evens Hoyt MD at OR [facility] Right: Renal Artery GETINGE : MAQUET 11/30/2020 [id number] / [id number] / [id number] 28mm X 76mm Distal, 12mm Ipsilateral Leg, Zenith Fenestrated Aaa Endovascular Distal Bifurcated Body Graft Implanted:Qty: 1 on 04/15/2018 by Evens Hoyt MD at OR [facility] N/A: Aorta [employer] 03/20/2021 ZFEN-D-12 -28-76-C / / [id number] Graft Iliac Leg Spirlz [id number] - [id number] Implanted:Qty: 1 on 04/15/2018 by Evens Hoyt MD at OR [facility] Left: Iliac [employer] 09/14/2020 [id number] / / [id number] Graft Iliac Leg Spirlz 64i96em - [id number] Implanted:Qty: 1 on 04/15/2018 by Evens Hoyt MD at OR [facility] Right: Iliac [employer] 11/09/2020 [id number] / / [id number] Transfixation Pin 6mm 294.950 - [id number] Implanted:Qty: 1 on 11/14/2019 by Mayank Friedman MD at OR [facility] Right: Ankle SYNTHES 294.950 / / Description:transfixation pi n Screw Schanz 5.5ium590py - [id number] Implanted:Qty: 2 on 11/14/2019 by Mayank Friedman MD at OR [facility] Right: Leg Lower SYNTHES 294.786SH A / / Description:self drilling sh antz screws 5.0mm x 200mm Esthela Trauma 2.7 Lock Screw 16mm Implanted:Qty: 2 on 11/27/2019 by oDnavan Ramirez Jr., MD at OR [facility] Right: Ankle ESTHELA : TRAUMA [id number] / / Description:hardware set Esthela Trauma 2.7 Lock Screw 14mm Implanted:Qty: 1 on 11/27/2019 by Donavan Ramirez Jr., MD at OR [facility] Right: Ankle ESTHELA : TRAUMA [id number] / / [place] Trauma 3.5 Screw 14mm Implanted:Qty: 1 on 11/27/2019 by Donavan Ramirez Jr., MD at OR [facility] Right: Ankle ESTHELA : TRAUMA [id number] / / Description:hardware set Esthela Trauma 3.5 Screw 18mm Implanted:Qty: 1 on 11/27/2019 by Donavan Ramirez Jr., MD at OR [facility] Right: Ankle ESTHELA : TRAUMA [id number] / / Description:hardware set Esthela 3.5 Lockscrew 16mm Implanted:Qty: 1 on 11/27/2019 by Donavan Ramirez Jr., MD at OR [facility] Right: Ankle [id number] / / Esthela 2.0 Plate Implanted:Qty: 1 on 11/27/2019 by Donavan Ramirez Jr., MD at OR [facility] Right: Ankle [id number] / / [place] 2.0 Lock Screw Implanted:Qty: 2 on 11/27/2019 by Donavan Ramirez Jr., MD at [facility] Right: Ankle [id number] / / Esthela 2.0 Lock Screw Implanted:Qty: 1 on 11/27/2019 by Donavan Ramirez Jr., MD at [facility] Right: Ankle [id number] / / Esthela 2.0 Lock Screw Implanted:Qty: 1 on 11/27/2019 by Donavan Ramirez Jr., MD at OR [facility] Right: Ankle [id number] / / Plate Fib 5h - [id number] Implanted:Qty: 1 on 11/27/2019 by Donavan Ramirez Jr., MD at OR [facility] Right: Ankle ESTHELA : TRAUMA / / Description:hardware set documented as of this encounter Visit Diagnoses Diagnosis Hospital discharge follow-up- Primary Other follow-up examination Acute drug-induced gout of multiple sites Chronic bilateral low back pain without sciatica Acute drug-induced gout of right ankle Dyslipidemia, goal LDL below 70 Other and unspecified hyperlipidemia Inflammation of sacroiliac joint (HCC) Sacroiliitis, not [...] the patient have Health Care Power of Hearing Aid Repairer? No Code Status History Code Status Date [...] the patient have Health Care Power of Hearing Aid Repairer? No Full Code 02/17/2019 12:06 PM 02/18/2019 1:09 PM This order reflects the patients wishes and were consensually agreed upon. Question Answer Comments Discussion of Advance Directives occurred with: Not Discussed Does the patient have a Living Will? No Does the patient have Health Care Power of Hearing Aid Repairer? No Care Teams Quartz Cutter Relationship Specialty Start Date End Date Buster Jessica MD [address] [place] [phone] PCP - General Family Medicine 09/11/22 documented as of this encounter"
--- OUTSIDE RECORDS SUMMARY | 2023-12-11 18:47 | External Medical Summary | Summary of Care ---
Author Name Unknown Organization [facility] Address [address] [place] [address] Phone [phone] Care Team Providers Care Bone Cooking Operator Name Role Phone Buster Jessica MD Primary Care P rovider Reason for Visit * Reason Onset Date Comments Referral 11/06/2023 Needs a referral for Physical Therapy Encounter Details Date Type Department Care Team (Late st Contact Info) Description 11/06/[address] [phone] Buster Jessica MD [address] [place] [phone] Referral (Needs a referral for Physical Th... Allergies Active Allergy Reactions Criticality Noted Date Comments Atorvastatin Muscle pain,Unknown 01/18/2015 Medication intolerance, not an allergy Sacubitril-Valsartan Other (Please comment) 09/17/2020 Throat swelled Sacubitril High 07/20/2023 Other Reaction(s): THROAT SWELLING Simvastatin Low 06/23/2022 Other reaction(s): MUSCLE ACHES Valsartan High 07/20/2023 Other Reaction(s): THROAT SWELLING documented as of this encounter (statuses as of 11/06/2023) Medications Medication Sig Dispensed Refills Start Date End Date Status Torsemide 100 MG Oral Tablet (Demadex)Indications :Heart failure, systolic, due to CAD ([facility]) Take 1 tablet by mouth [...] (pLAVix)Indications: PAD (peripheral artery disease) ([facility]),Coronary artery disease involving [place] coronary artery of [place] tribe heart without angina pectoris TAKE ONE TABLET BY MOUTH ONCE DAILY 90 Tablet 3 03/13/2023 Active Famotidine 20 MG Oral Tablet (Pepcid) TAKE 1 TABLET BY MOUTH TWICE DAILY (MORNING AND AT BEDTIME) 180 Tablet 3 04/30/2023 Active Spironolactone 25 MG Oral Tablet (Aldactone)Indicatio ns:Coronary artery disease involving [place] coronary artery of [place] tribe heart without angina pectoris,Heart failure, systolic, due to CAD ([facility]),Chronic ischemic heart disease,HTN, goal below 140/90 TAKE ONE TABLET BY MOUTH ONCE DAILY 90 Tablet 3 05/14/2023 Active Losartan Potassium 25 MG Oral Tablet (Cozaar)Indications: PAD (peripheral artery disease) ([facility]),Coronary artery disease involving [place] tribe coronary artery of [place] tribe heart without angina pectoris TAKE ONE TABLET [...] failure, systolic, due to CAD ([facility]),Dyslipidemia, goal LDL below 70,Chronic ischemic heart disease,Tobacco use disorder,Coronary artery disease involving [place] tribe coronary artery of [place] tribe heart without angina pectoris Inject 140 mg [...] suspected opioid overdose. Seek immediate medical attention. [email or web address] 1 Each 3 09/15/2023 Active Additional Information [...] D, by GOLD 2017 classification ([facility]) Inhale 1 Puff by mouth in the morning and 1 Puff before bedtime. 180 Each 12 10/29/2023 Active Albuterol Sulfate (2.5 MG/3ML) 0.083% Inhalation Nebulization Solution (Proventil)Indicatio ns:COPD, group D, by GOLD 2017 classification ([facility]) Inhale 1 Vial via nebulizer [...] before bedtime. 360 Tablet 1 10/31/2023 Active HYDROcodone-Acetamin ophen 7.5-325 MG Oral TabletIndications:Ch ronic bilateral low back pain without sciatica,Acute drug-induced gout of right ankle Take 1 Tablet by mouth every 6 hours as needed for Pain, Severe. 30 Tablet 0 10/31/2023 Active predniSONE 20 MG Oral Tablet (Deltasone) Take 2 Tablets by mouth daily for 5 days, THEN 1 Tablet daily for 5 days, THEN 0.5 Tablets daily for 5 days. 18 Tablet 0 11/03/2023 4 Active Allopurinol 100 MG Oral Tablet (Zyloprim)Indication s:Acute gout of right hand, unspecified cause Take 2 Tablets by mouth in the morning. 60 Tablet 0 11/03/2023 4 Active documented as of this encounter (statuses as of 11/06/2023) Active Problems Problem Noted Date Diagnosed Date [...] fibrillation) 09/22/2021 Atherosclerotic heart diseas e of [place] tribe coronary artery with other forms of angina [...] untreated, BMI 43.71 kg/m, NECK: 21 inches, [place] 6/24, sent for bipap titration study 01/11/11 case per [facility] completed ICD-10 update of inactive term Last Assessment & Plan: Waiting for new bipap machine BMI 35-39 ISOLATED (SEE ACTUAL BMI) 01/17/2010 Overview: Per Obesity Protocol, #19 BPH without obstruction/lower urinary tract symp toms 08/19/2009 Dyslipidemia, goal LDL below 70 07/21/2009 Overview: Per Lipid Taxonomy. documented as of this encounter (statuses as of 11/06/2023) Resolved Problems Problem Noted Date Diagnosed Date [...] 11/22/2020 10/12/2023 Coronary artery disease invo lving [place] tribe coronary artery of [place] tribe heart without angina pectoris 07/06/2020 10/12/2023 Chronic [...] 09/23/201305/17 Claudication 05/13/2013 10/12/2023 [employer] Other*[id number] 04/23/2012 09/12/2016 Overview: Study Title: Genomic Markers for Patients with Cardiovascular Disease Project # [id number] Echo Technician: Comfort Aviles MD [phone] Impotence of organic origin 02/16/2011 01/10/2018 Shortness [...] as of this encounter (statuses as of 11/06/2023) Immunizations Name Administration Dates Next Due COVID-19 [...] do you have serious difficulty hearing? Yes-very ELY SHOSHONE 11/03/2023 Are you blind or do [...] encounter Miscellaneous Notes * Telephone Encounter - Cecille Tenorio OSA - 11/06/2023 1:07 PM EDT Will send msg to [facility] therapy to call pt I called to let him know but had to lmom sending to pool * Telephone Encounter - Angelique Valdovinos LPN - 11/06/2023 12:33 PM ED[address]erral in place. Please assist with scheduling. * Telephone Encounter - Chantell Dejesus OSA - 11/06/2023 12:25 PM EDT Queta with [facility] calling , Pt is not admitted to Home health , he is not home bound and is requesting a referral for physical therapy. DX is gout and ambulation dysfunction Needs to be scheduled close to his home. If you have any questions you can call Queta at [phone], pt is not under her care, but she will help if you have any questions. documented in this encounter Plan of Treatment Upcoming Encounters Date Type Department Care Team (Latest Contact Info) Description 11/14/2023 9:10 AM EDT Office Visit [facility] [address] [place] [phone] Buster Jessica MD [address] [place] [phone] 11/21/2023 10:55 AM EDT Hospital Encounter [facility] Operating [facility] [address] [place] [address] Freeman Beaulieu, DO [address] [place] [phone] 11/21/2023 10:55 AM EDT - 11/21/2023 11:20 AM EDT Surgery [facility] [address] [place] [phone] Freeman Beaulieu, DO [address] [place] [phone] INJECTION SACROILIAC JOINT 11/22/2023 10:00 AM EDT Home Visit [facility] [address] [place] [address] Lisa Tenorio RN [address] [place] [address] 01/15/2024 10:40 AM EDT [facility] [address] [place] [phone] Clair Quarles, [address] [place] [address] 04/22/2024 9:30 AM EDT Cardiac Studies Cardiology, [facility] [address] [facility] [place] [address] [facility] [address] [place] [address] 05/19/2024 9:30 AM EDT Appointment Radiology, [place] [address] [place] [address] Scheduled Procedures Name Priority Associated Diagnoses Date/Ti me INJECTION SACROILIAC JOINT Inflammation of sacroiliac joint (HCC) 11/21/2023 10:55 AM EDT COLONOSCOPY FLEXIBLE PROXIMAL DIAGNOSTIC Recall History of colon polyps Health Maintenance Due Date Last Done Comments *ADVANCE DIRECTIVE NOT ON FILE 05/28/2019 COVID-19 Vaccine ( season) 2023 11/08/2020, 10/08/2020 DISCUSS TOBACCO CESSATION (REFER TO SMARTSET #8094) 06/02/2023 06/02/2022, 07/21/2020 Depression, Most Recent Score [...] 09/10/2008 LUNG CANCER SCREENING - USE SMARTSET 84406 Completed 08/22/2022, 05/22/2022, 02/21/2021, Additional history exists [...] this encounter Medical Devices Implanted Type Area Fish Salter Device Identifier Shelf Expiration Date Model / Serial / Lot 32mm X 109mm, Zenith Fenestrated Aaa Endovascular Proximal Body Graft, Two Proximal Internal Stent Implanted:Qty: 1 on 04/15/2018 by Evens Hoyt MD at OR [facility] N/A: Aorta [employer] 03/20/2021 LISA-P-2- 32-109-R / / [id number] Stent Graft [id number] - [id number] - [id number] Implanted:Qty: 1 on 04/15/2018 by Evens Hoyt MD at OR [facility] Right: Renal Artery GETINGE : MAQUET 11/30/2020 [id number] / [id number] / [id number] Stent Graft [id number] - [id number] - [id number] Implanted:Qty: 1 on 04/15/2018 by Evens Hoyt MD at OR [facility] Right: Renal Artery GETINGE : MAQUET 11/30/2020 63094 / [id number] / [id number] 28mm X 76mm Distal, 12mm Ipsilateral Leg, Zenith Fenestrated Aaa Endovascular Distal Bifurcated Body Graft Implanted:Qty: 1 on 04/15/2018 by Evens Hoyt MD at OR [facility] N/A: Aorta [employer] 03/20/2021 LISA-D-12 -28-76-C / / [id number] Graft Iliac Leg Spirlz [id number] - [id number] Implanted:Qty: 1 on 04/15/2018 by Evens Hoyt MD at OR [facility] Left: Iliac [employer] 09/14/2020 [id number] / / [id number] Graft Iliac Leg Spirlz [id number] - [id number] Implanted:Qty: 1 on 04/15/2018 by Evens Hoyt MD at OR [facility] Right: Iliac [employer] 11/09/2020 [id number] / / [id number] Transfixation Pin 6mm 294.950 - [id number] Implanted:Qty: 1 on 11/14/2019 by Mayank Friedman MD at OR [facility] Right: Ankle SYNTHES 294.950 / / Description:transfixation pi n Screw Schanz [id number] - [id number] Implanted:Qty: 2 on 11/14/2019 by Mayank Friedman MD at OR [facility] Right: Leg Lower SYNTHES 294.786SH A / / Description:self drilling sh antz screws 5.0mm x 200mm Esthela Trauma 2.7 Lock Screw 16mm Implanted:Qty: 2 on 11/27/2019 by Donavan Ramirez Jr., MD at OR [facility] Right: Ankle ESTHELA : TRAUMA [id number] / / Description:hardware set Dillon Trauma 2.7 Lock Screw 14mm Implanted:Qty: 1 on 11/27/2019 by Donavan Ramirez Jr., MD at OR [facility] Right: Ankle ESTHELA : TRAUMA [id number] / / Esthela Trauma 3.5 Screw 14mm Implanted:Qty: 1 on 11/27/2019 by Donavan Ramirez Jr., MD at OR [facility] Right: Ankle ESTHELA : TRAUMA [id number] / / Description:hardware set Esthela Trauma 3.5 Screw 18mm Implanted:Qty: 1 on 11/27/2019 by Donavan Ramirez Jr., MD at OR [facility] Right: Ankle ESTHELA : TRAUMA [id number] / / Description:hardware set Esthela 3.5 Lockscrew 16mm Implanted:Qty: 1 on 11/27/2019 by Donavan Ramirez Jr., MD at OR [facility] Right: Ankle [id number] / / Esthela 2.0 Plate Implanted:Qty: 1 on 11/27/2019 by Donavan Ramirez Jr., MD at OR [facility] Right: Ankle [id number] / / Esthela 2.0 Lock Screw Implanted:Qty: 2 on 11/27/2019 by Donavan Ramirez Jr., MD at OR [facility] Right: Ankle [id number] / / Dillon 2.0 Lock Screw Implanted:Qty: 1 on 11/27/2019 by Donavan Ramirez Jr., MD at [facility] Right: Ankle [id number] / / Dillon 2.0 Lock Screw Implanted:Qty: 1 on 11/27/2019 by Dnoavan Ramirez Jr., MD at OR [facility] Right: Ankle [id number] / / Plate Fib 5h - [id number] Implanted:Qty: 1 on 11/27/2019 by Donavan Ramirez Jr., MD at OR [facility] Right: Ankle ESTHELA : TRAUMA / / [...] the patient have Health Care Power of Production Support Developer? No Code Status History Code Status Date [...] the patient have Health Care Power of Production Support Developer? No Full Code 02/17/2019 12:06 PM 02/18/2019 1:09 PM This order reflects the patients wishes and were consensually agreed upon. Question Answer Comments Discussion of Advance Directives occurred with: Not Discussed Does the patient have a Living Will? No Does the patient have Health Care Power of Production Support Developer? No Care Teams Bone Cooking Operator Relationship Specialty Start Date End Date Buster Jessica MD [address] [place] [phone] PCP - General Family Medicine 09/11/22 documented as of this encounter
--- OUTSIDE RECORDS SUMMARY | 2023-12-11 18:47 | External Medical Summary | Summary of Care ---
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 Name Role Phone Buster Jessica MD Primary Care [facility] Reason for Referral * Evaluate & Treat - Unlimited Visits (Within 10 days (routine)) - Authorized Specialty Diagnoses / Procedures Referred By Satinder vázquez Referred To Contact Physical Therapy / Physical Medicine And Rehab Diagnoses Ambulatory dysfunction Israel Schofield MD [address] [place] [id number] Referral ID Status Reason Start Date Expiration Date Visits Requested Visits Authorized [id number] Authorized Specialty Services Required 11/03/2023 999 [id number] Question Answer Referral Priority Within 10 days (routine) Where should this appointment be scheduled? [facility] Comments Discharge Order Reason for Visit * Reason Comments Leg Pain Weakness, Generalized * Auth/Cert Specialty Diagnoses / Procedures Referred By Satinder vázquez Referred To Contact [facility] [address] [place] [address] Phone: [phone] [place] [address] Referral ID Status Reason Start Date Expiration Date Visits Re quested Visits Authorized [id number] Encounter Details Date Type Department Care Team (Late st Contact Info) Description 11/02/2023 10:26 PM EDT - 11/03/2023 4:30 PM EDT Emergency [facility], Acute Care Unit, [facility] 2nd Floor [address] [place] [address] Wayne Vergara DO [address] [place] [address] Kalani Lynn MD [address] [place] [address] Israel Schofield MD [address] [place] [address] Pt Handout (on AVS) Discharge Disposition: Home - Self Care Allergies Active Allergy Reactions Criticality Noted Date Comments Atorvastatin Muscle pain,Unknown 01/18/2015 Medication intolerance, not an allergy Sacubitril-Valsartan Other (Please comment) 09/17/2020 Throat swelled Sacubitril High 07/20/2023 Other Reaction(s): THROAT SWELLING Simvastatin Low 06/23/2022 Other reaction(s): MUSCLE ACHES Valsartan High 07/20/2023 Other Reaction(s): THROAT SWELLING documented as of this encounter (statuses as of 11/04/2023) Medications Medication Sig Dispensed Refills Start Date [...] Oral Tablet (pLAVix)Indication s:PAD (peripheral artery disease) ([facility]),Coronary artery disease involving habematolel coronary artery of habematolel heart without angina pectoris TAKE ONE TABLET BY MOUTH ONCE DAILY 90 Tablet 3 3 Active Famotidine 20 MG Oral Tablet (Pepcid) TAKE 1 TABLET BY MOUTH TWICE DAILY (MORNING AND AT BEDTIME) 180 Tablet 3 3 Active Spironolactone 25 MG Oral Tablet (Aldactone)Indicat ions:Coronary artery disease involving habematolel coronary artery of habematolel heart without angina pectoris,Heart failure, systolic, due to CAD ([facility]),Chronic ischemic heart disease,HTN, goal below 140/90 TAKE ONE TABLET BY MOUTH ONCE DAILY 90 Tablet 3 3 Active Losartan Potassium 25 MG Oral Tablet (Cozaar)Indication s:PAD (peripheral artery disease) ([facility]),Coronary artery disease involving habematolel coronary artery of habematolel heart without angina pectoris TAKE ONE TABLET [...] systolic, due to CAD ([facility]),Dyslipidemia , goal LDL below 70,Chronic ischemic heart disease,Tobacco use disorder,Coronary artery disease involving habematolel coronary artery of habematolel heart without angina pectoris Inject 140 mg (1 pen) under the skin every 14 days. 6 mL 3 3 Active Metoprolol Succinate ER 50 MG Oral Tablet Extended Release 24 Hour (Toprol XL)Indications:Per sistent atrial fibrillation ([facility]),Acute on chronic systolic (congestive) heart failure ([facility]) One tablet by mouth daily at [...] suspected opioid overdose. Seek immediate medical attention. [email or web address]?[email or web address] 1 Each 3 4 Active Additional Information [...] by GOLD 2017 classification ([facility]) Inhale 1 Puff by mouth in the morning and 1 Puff before bedtime. 180 Each 12 4 Active Albuterol Sulfate (2.5 MG/3ML) 0.083% Inhalation Nebulization Solution (Proventil)Indicat ions:COPD, group D, by GOLD 2017 classification ([facility]) Inhale 1 Vial via nebulizer every 4 hours as needed for Wheezing. 75 mL 4 Active Eliquis 5 MG Oral Tablet [...] before bedtime. 360 Tablet 1 4 Active HYDROcodone-Acetam inophen 7.5-325 MG Oral TabletIndications: Chronic bilateral low back pain without sciatica,Acute drug-induced gout of right ankle Take 1 Tablet by mouth every 6 hours as needed for Pain, Severe. 30 Tablet 0 4 Active predniSONE 20 MG Oral Tablet (Deltasone) Take 2 Tablets by mouth daily for 5 days, THEN 1 Tablet daily for 5 days, THEN 0.5 Tablets daily for 5 days. 18 Tablet 0 4 11/18/19 24 Active Allopurinol 100 MG Oral Tablet (Zyloprim)Indicati ons:Acute gout of right hand, unspecified cause Take 2 Tablets by mouth in the morning. 60 Tablet 0 4 12/03/19 24 Active Benzonatate 100 MG Oral CapsuleIndications :COPD, group D, by GOLD 2017 classification ([facility]) Take 1 Capsule by mouth 3 times a day as needed for Cough. 30 Capsule 3 4 11/03/19 24 Discontinued hydrOXYzine HCl 25 MG Oral TabletIndications: Insomnia due to medical condition Take 0.5 Tablets by mouth at bedtime as needed for Other (sleep). 30 Tablet 1 4 11/03/19 24 Discontinued Allopurinol 100 MG Oral Tablet (Zyloprim)Indicati ons:Acute gout of right hand, unspecified cause Take 1 Tablet by mouth in the morning. 30 Tablet 11 4 11/03/19 24 Discontinued Colchicine 0.6 MG Oral TabletIndications: Acute drug-induced gout of right ankle Take 1 Tablet by mouth in the morning and 1 Tablet before bedtime. 30 Tablet 1 4 11/03/19 24 Discontinued documented as of this encounter (statuses as of 11/04/2023) Active Problems Problem Noted Date Diagnosed Date [...] fibrillation) 09/22/2021 Atherosclerotic heart diseas e of habematolel coronary artery with other forms of angina [...] nasi 08/29/2018 Thoracic aortic aneurysm without rupture 09/27/2 018 Hx of nonmelanoma skin cancer 09/14/2016 Overview: basal cell carcinoma (R sideburn, L side of nose, R upper abdomen) H/O dysplastic nevus 09/14/2016 Overview: atypical nevus (L upper back) Obstructive sleep apnea 05/31/2010 Overview: 05/31/10 - untreated, BMI 43.71 kg/m, NECK: 21 inches, [place] 01/27, sent for bipap titration study 01/11/11 case per [facility] completed ICD-10 update of inactive term Last Assessment & Plan: Waiting for new bipap machine BMI 35-39 ISOLATED (SEE ACTUAL BMI) 01/17/2010 Overview: Per Obesity Protocol, #19 BPH without obstruction/lower urinary tract symp toms 08/19/2009 Dyslipidemia, goal LDL below 70 07/21/2009 Overview: Per Lipid Taxonomy. documented as of this encounter (statuses as of 11/04/2023) Resolved Problems Problem Noted Date Diagnosed Date [...] 11/22/2020 10/12/2023 Coronary artery disease invo lving habematolel coronary artery of habematolel heart without angina pectoris 07/06/2020 10/12/2023 Chronic [...] 09/23/201305/17 Claudication 05/13/2013 10/12/2023 [employer] Other*[id number] 04/23/2012 09/12/2016 Overview: Study Title: Genomic Markers for Patients with Cardiovascular Disease Project # [id number] Retail Furniture Sales: Comfort Aviles MD [phone] Impotence of organic origin 02/16/2011 01/10/2018 Shortness [...] as of this encounter (statuses as of 11/04/2023) Immunizations Name Administration Dates Next Due COVID-19 [...] Sign Reading Time Taken Comments Blood Pressure 94/56 11/03/2023 3:30 PM EDT Pulse 76 11/03/2023 3:30 PM EDT Temperature 36.3 C (97.3 F) 11/03/2023 3:30 PM ED T Respiratory Rate 18 11/03/2023 3:30 PM EDT Oxygen Saturation 95% 11/03/2023 3:30 PM EDT Inhaled Oxygen Concentration - - Weight 117.8 kg (259 lb 11.2 oz) 11/03/2023 1:00 AM EDT Height 180.3 cm (5' 11") 11/03/2023 1:00 AM EDT Body Mass Index 36.22 11/03/2023 1:00 AM EDT documented in this encounter Functional Status Functional Status Response Date of Assess ment Are you deaf or do you have serious difficulty hearing? Yes-very PAUMA 11/03/2023 Are you blind or do you [...] 11/03/2023 documented as of this encounter Discharge Summaries * Israel Schofield MD - 11/03/2023 3:48 PM EDT Images from the original note were not included. [address] [address] Admission Date: 11/02/2023 Discharge Date: RECOMMENDED TO DO FOR NEXT PROVIDER(S): Reassess for joint pain Interval CBC/BMP/CRP REASON(S) FOR MEDICATION CHANGE(S): -Prednisone on discharge -allopurinol increased DISPOSITION ON DISCHARGE: Home with Services Active Hospital Problems Diagnosis *Principal Diagnosis - Ambulatory dysfunction Gout attack Leukocytosis Hypokalemia Resolved Hospital Problems No resolved problems to display. ADMISSION HISTORY & PHYSICAL EXAM (per ZAHIRA Temple): Patient is a 73-year-old male with significant past medical history of CAD, atrial fibrillation, HFmrEF, cardiomyopathy, biventricular AICD in-situ, LBBB, hypertension, hyperlipidemia, thoracic aortic aneurysm, BRIAN, COPD, lumbago, osteoarthritis, gout and peripheral neuropathy. He presents to our facility with complaints of leg pain and weakness. Patient presents as described above. At the time of my examination he was found sleeping, prone in his bed. He is difficult to arouse, but does wake up to verbal stimuli. He answers some questions, but generally drifts right back to sleep. The information he provided is corroborated by review of the electronic medical record and discussion with the emergency room provider. He was not a great historian at this time due to somnolence, and is therefore deemed a full code for now. As the patient's history would suggest, the patient reports that he has pain in his left knee. He tells me this has been going on for a few weeks. He was able to confirm for me that he took steroids provided by his primary care which seemed to help, but finished the course. He reported that he was started on other medications that have not helped. He has actually found it more difficult to ambulate because of pain since taking the medications. According to documentation, the patient was unable to ambulate at his baseline and required multiple persons to help him get in a vehicle to come to the emergency room. Based on review of the EMR and discussion with the ER provider, there have been noother symptoms. He apparently has not been eating or drinking as much. Upon review of the patient's recent PCP visits and telephone calls, I am able to clarify information regarding his recent gout treatment. Apparently, the patient was started on a Medrol Dosepak and allopurinol on 10/25/2023. According to documentation, the patient seemed to do well in the immediateterm, put progressively worsened. He complained of continued gouty pain on a visit 10/31/2023 for which the PCP attributed to the allopurinol. A script for p.o. hydrocodone was provided. He was seen again on 11/01/2023 where he was started on colchicine. Unfortunately, it appears that the new combination has not provided him any relief. In addition to his primary complaint for which he presented, the recent PCP visits suggest that thepatient has been complaining of not feeling well for quite some time. He stated that all he wanted to do is sleep. He had been denying chest pain but continued to endorse dyspnea on exertion. He continues to smoke 1 pack of cigarettes per day and stated he does not want to quit. Breathing was reported to be a little rough, however, he did not complain of this in the emergency room during his ED visit today. On 11/03/2023 his weight was 260 lb and it was noted that his baseline is between 250-162 lb. He did not exhibit any significant edema or abdominal distention, and does things are also not present today. He is not using his BiPAP because he is unwilling to try a new machine. Physician chart confirms that he does take losartan 25 mg daily, metoprolol succinate 100 mg daily, digoxin 125 mcg daily as well as Plavix and Eliquis. Patient takes 100 mg of torsemide in the morning and 100 mg of torsemide in the afternoon on Wednesdays and Fridays as well as spironolactone 25 mg daily and metolazone 2.5 mg once a week on Fridays. Potassium was recently increased to 20 mEq inthe morning and 20 mEq in the evening. Subsequent workup at our facility included a knee x-ray suggesting mild prepatellar soft tissue swelling. No fracture or dislocation appreciated. Routine labs revealed leukocytosis at 16 and hypokalemia at 3.3. Glucose was elevated to 170 in a nondiabetic patient who just received steroids. Urinalysis is negative for infection. Uric acid is pending. CRP, procalcitonin, ESR and lactic acid are pending. EKG is pending. DEVI-HWCUR-2, RVP and digoxin level are pending. Remaining labs are essentially unremarkable. Vital signs reveal an afebrile patient 36.8 C. Heart rate is 89. Respirations are 18 and nonlabored saturating 98% on room air. Blood pressure is 113/66 Because of the patient's somnolence, nursing has been unable to obtain an accurate and up-to-date medication list for this patient. I will continue the medications that were addressed in his PCP visit several days ago, however, the remaining medications w Physical Exam Vitals and nursing note reviewed. Constitutional: Appearance: He is obese. Comments: Somnolent but arouses to verbal stimuli. Drifts back to sleep. Follows commands appropriately. HENT: Head: Normocephalic and atraumatic. Right Ear: External ear normal. Left Ear: External ear normal. Nose: Nose normal. Mouth/Throat: Mouth: Mucous membranes are dry. Pharynx: Oropharynx is clear. Eyes: Extraocular Movements: Extraocular movements intact. Conjunctiva/sclera: Conjunctivae normal. Pupils: Pupils are equal, round, and reactive to light. Cardiovascular: Rate and Rhythm: Normal rate. Pulses: Normal pulses. Heart sounds: Normal heart sounds. Comments: Paced rhythm Pulmonary: Effort: Pulmonary effort is normal. Breath sounds: Normal breath sounds. Abdominal: General: Bowel sounds are normal. Palpations: Abdomen is soft. Musculoskeletal: General: Normal range of motion. Cervical back: Normal range of motion and neck supple. Skin: General: Skin is warm and dry. Capillary Refill: Capillary refill takes less than 2 seconds. Neurological: General: No focal deficit present. Mental Status: He is alert. Psychiatric: Mood and Affect: Mood normal. Behavior: Behavior normal. Thought Content: Thought content normal. Judgment: Judgment normal. HOSPITAL COURSE (focused): 73yo male admitted with multifocal joint pain in setting of known hx of gout, likely representing gout flare. Was started on steroids which appear to have improved his paingreatly. Workup was remarkable for increased uric acid, CRP 210, white count 16.02, which downtrended to 13.25. Pt remained afebrile during admission. Later in the day, he was considered stable for discharge to home to complete steroid taper Operations & Procedures: none Complications: none significant Significant Lab and Imaging Results: As mentioned above Results Pending at Discharge: Lab Results Pending at Discharge: None MEDICATION UPDATES AT DISCHARGE START taking these medications INSTRUCTIONS predniSONE 20 MG Tabs Tablet Commonly known as: Deltasone Start taking on: November 03, 2023 Take 2 Tablets by mouth daily for 5 days, THEN 1 Tablet daily for 5 days, THEN 0.5 Tablets daily for 5 days. CHANGE how you take these medications INSTRUCTIONS Allopurinol 100 MG Tablet Commonly known as: Zyloprim What changed: how much to take Take 2 Tablets by mouth in the morning. Torsemide 100 MG Tablet Commonly known as: Demadex What changed: additional instructions Take 1 tablet by mouth every morning. Take 1 tab on Sunday, Sunday and Sunday afternoon. CONTINUE taking these medications INSTRUCTIONS Albuterol Sulfate (2.5 MG/3ML) 0.083% nebulizer solution Commonly known as: Proventil Inhale 1 Vial via nebulizer every 4 hours as needed for Wheezing. ARIPiprazole 2 MG Tablet Commonly known as: Abilify Take 1 Tablet by mouth in the morning. Baclofen 20 MG Tablet Take 1 Tablet by mouth 3 times a day as needed for Muscle spasms. clopidogrel 75 MG Tablet Commonly known as: pLAVix TAKE ONE TABLET BY MOUTH ONCE DAILY Desvenlafaxine Succinate ER 100 MG Tb24 Commonly known as: Pristiq Take 1 Tablet by mouth in the morning. Digoxin 125 mcg Tablet Commonly known as: Lanoxin Take 1 Tablet by mouth in the morning. Eliquis 5 MG Tablet Generic drug: Apixaban TAKE 1 TABLET BY MOUTH TWICE DAILY Famotidine 20 MG Tablet Commonly known as: Pepcid TAKE 1 TABLET BY MOUTH TWICE DAILY (MORNING AND AT BEDTIME) Fluticasone-Salmeterol 250-50 MCG/ACT inhaler Commonly known as: Wixela Inhub Inhale 1 Puff by mouth in the morning and 1 Puff before bedtime. HYDROcodone-Acetaminophen 7.5-325 MG per tablet Take 1 Tablet by mouth every 6 hours as needed for Pain, Severe. losartan 25 MG Tablet Commonly known as: Cozaar TAKE ONE TABLET BY MOUTH ONCE DAILY metOLazone 2.5 MG Tablet Commonly known as: Zaroxolyn Take 1 Tablet by mouth once a week. take 30 minutes prior to torsemide * metoprolol succinate XL 100 MG Tb24 Commonly known as: toPROL XL TAKE ONE TABLET BY MOUTH ONCE DAILY * metoprolol succinate XL 50 MG Tb24 Commonly known as: Toprol XL One tablet by mouth daily at bedtime, this is in addition to the previous prescription for 100 milligrams daily in the morning. potassium chloride ER 10 MEQ Tbcr Take 2 Tablets by mouth in the morning and 2 Tablets before bedtime. Repatha SureClick 140 MG/ML Soaj Generic drug: evolocumab Inject 140 mg (1 pen) under the skin every 14 days. Spironolactone 25 MG Tablet Commonly known as: Aldactone TAKE ONE TABLET BY MOUTH ONCE DAILY tamsulosin 0.4 MG Capsule Commonly known as: Flomax Take 2 Capsules by mouth every evening. Vitamin C 1000 MG Tablet Take 1 Tablet by mouth in the morning. * This list has 2 medication(s) that are the same as other medications prescribed for you. Read thedirections carefully, and ask your doctor or other care provider to review them with you. STOP taking these medications Benzonatate 100 MG Capsule Commonly known as: Tessalon Perles colchicine 0.6 MG Tablet hydrOXYzine HCl 25 MG tablet CONTINUE taking these medications but follow up with your Primary Care Physician (PCP). INSTRUCTIONS naloxone 4 MG/0.1ML Liqd Commonly known as: Narcan Nasal Administer 1 spray into 1 nostril for suspected opioid overdose. Seek immediate medical attention. [email or web address]?[email or web address] SCHEDULED FOLLOW-UP: Future Appointments Appt Date/Time Provider Department 11/14/2023 9:10 AM Buster Jessica MD [facility] 11/22/2023 10:00 AM Lisa Tenorio RN [facility] 01/15/2024 10:40 AM Clair Quarles, DO [facility] 04/22/2024 9:30 AM [facility] Cardiology, [facility] 05/19/2024 9:[address] Radiology, [facility] Outpatient Follow Up PHYSICAL THERAPY REFERRAL OP Other Information Indwelling Devices: LINES None Vital Signs (last recorded): Most Recent Systolic BP: 94 mmHg (11/03/23 1530) Most Recent Diastolic BP: 56 mmHg (11/03/23 1530) Pulse: 76 (11/03/23 1530) Resp: 18 (11/03/23 1530) Most Recent Temperature: 36.28 C (11/03/23 1530) Weight: 117.8 kg (259 lb 11.2 oz) (11/03/23 0100) SpO2: 95 % (11/03/23 1530) Allergies: Sacubitril, Valsartan, Atorvastatin, Entresto [sacubitril-valsartan], and Simvastatin Activity: as tolerated Diet: age appropriate diet Code Status: Full Code Condition on Discharge: stable Isolation status: None Cognition: normal HOSPITAL CONSULTS ORDERED: ADULT PHYSICAL THERAPY CONSULT IP ADULT OCCUPATIONAL THERAPY CONSULT IP CARE MANAGEMENT CONSULT IP REFERRING PHYSICIAN: Ref: [id number]] NO STREET ADDRESS AVAILABLE None (office) None (fax) PRIMARY CARE PROVIDER: PCP: Buster Anguiano MD [address] [place] [address] (office) [phone] (fax) Note: To contact a physician responsible for this patients hospital care, please call [facility] [phone]. I certify this patient is confined to the home and needs intermittent detention care, physical therapy and/or speech therapy, or [...] leave the home. The patient had a [id number] encounter with an allowed provider type on 11/03/23 and the encounter was related to the primary reason for home health care. Under situations in whichI am an acute/post acute facility physician who will not be following the patient's plan of care, Iauthorized services on this plan of care and I transfer the patient for plan [...] Discharge Instructions * Discharge Instr - AVS* Israel Schofield MD - 11/03/2023 2:22 PM EDT Discharge Date: 11/03/2023 The information below provides you with the instructions and the list of medications you need to betaking following discharge from the hospital. If you have any questions, please ask before leaving. If you have questions after leaving, you can reach us at the numbers below. YOUR HOSPITAL PROVIDERS: Discharging Provider: Israel Schofield MD Provider Department: Hospital Medicine To reach this Provider Sunday through Sunday (8:00 AM to 4:30 PM) for any questions or test results: Call [phone] For after-hours concerns: Call [phone] and have your provider paged, or the provider online journalist for the Department of Hospital Medicine paged. Please note, the discharging provider will not be able to provide you with any medications refills.Please discuss these with your primary care provider. Worsening Symptoms: If you have new symptoms, or your symptoms get worse, please contact your Discharge Provider or Primary Care Provider (PCP). If these providers are not available, you can go to your local [facility] hospital or Urgent Care Clinic during their business hours. In an EMERGENCY situation: Call [phone] or go to the nearest emergency room. A BRIEF SUMMARY OF YOUR HOSPITAL STAY: You came to the hospital with: joint pain Your main diagnosis at discharge was: joint pain, likely gout flare Operations & Procedures performed: none Complications: none significant Inpatient test results that are pending at discharge: none Advance Directive Documented: Advance Directive Does the Patient have an Advance Directive? No YOUR FOLLOW UP APPOINTMENTS: Primary Care Provider Information: PCP: Buster Anguiano MD [address] [place] [address] (office) [phone] (fax) An appointment was requested with your PCP (Buster Anguiano MD) within 7 days. (Please take this form to this visit with your primary care physician.) You need the following studies in the future: repeat CBC/BMP/CRP INSTRUCTIONS: Diet: Heart healthy diet Activity: As tolerated Additional Instructions: - Call your primary care physician or seek medical attention if you experience worsening shortness of breath, chest pain, lightheadedness, dizziness. * Donal [facility] Sw[facility] John* Elvia Hassan RN - 11/03/2023 1:49 PM EDT Patient Care Team: Lisa Tenorio, RN as [employer] [facility] ([facility]) Dear Dago Gunter, [facility] Care Management is here to assist in your transition from hospital to home. It was very nice to meet and talk with you during your stay. The following items have been identified and set up for your discharge: Begin your home health services with [facility], for physical therapy. [facility] will contact you before your initial visit. If you have any questions, please contact them directly at [phone]. Begin use of your rolling walker, being sent to your home by [email or web address]. You should receive your rolling walker by Sunday or Sunday of next week. If you have any questions, you may contact [employer] directly at [phone]. Please resume use of your nebulizer as directed by your physician. Thank you for allowing us to participate in your care. If you have any questions or concerns, please contact me directly at [phone]. Wishing you good health in the future. Elvia Hassan RN alarm service technician [facility] F: [phone] documented in this encounter H&P Notes * Sundar Temple PA-C - 11/03/2023 12:54 AM EDT Images from the original note were not included. [facility] MH2 ACU-232/01 PRESENTING PROBLEM: Leg pain, weakness HPI: Patient is a 73-year-old male with significant past medical history of CAD, atrial fibrillation, HFmrEF, cardiomyopathy, biventricular AICD in-situ, LBBB, hypertension, hyperlipidemia, thoracic aortic aneurysm, BRIAN, COPD, lumbago, osteoarthritis, gout and peripheral neuropathy. He presents to our facility with complaints of leg pain and weakness. Patient presents as described above. At the time of my examination he was found sleeping, prone in his bed. He is difficult to arouse, but does wake up to verbal stimuli. He answers some questions, but generally drifts right back to sleep. The information he provided is corroborated by review of the electronic medical record and discussion with the emergency room provider. He was not a great historian at this time due to somnolence, and is therefore deemed a full code for now. As the patient's history would suggest, the patient reports that he has pain in his left knee. He tells me this has been going on for a few weeks. He was able to confirm for me that he took steroids provided by his primary care which seemed to help, but finished the course. He reported that he was started on other medications that have not helped. He has actually found it more difficult to ambulate because of pain since taking the medications. According to documentation, the patient was unable to ambulate at his baseline and required multiple persons to help him get in a vehicle to come to the emergency room. Based on review of the EMR and discussion with the ER provider, there have been noother symptoms. He apparently has not been eating or drinking as much. Upon review of the patient's recent PCP visits and telephone calls, I am able to clarify information regarding his recent gout treatment. Apparently, the patient was started on a Medrol Dosepak and allopurinol on 10/25/2023. According to documentation, the patient seemed to do well in the immediateterm, put progressively worsened. He complained of continued gouty pain on a visit 10/31/2023 for which the PCP attributed to the allopurinol. A script for p.o. hydrocodone was provided. He was seen again on 11/01/2023 where he was started on colchicine. Unfortunately, it appears that the new combination has not provided him any relief. In addition to his primary complaint for which he presented, the recent PCP visits suggest that thepatient has been complaining of not feeling well for quite some time. He stated that all he wanted to do is sleep. He had been denying chest pain but continued to endorse dyspnea on exertion. He continues to smoke 1 pack of cigarettes per day and stated he does not want to quit. Breathing was reported to be a little rough, however, he did not complain of this in the emergency room during his ED visit today. On 11/03/2023 his weight was 260 lb and it was noted that his baseline is between 250-162 lb. He did not exhibit any significant edema or abdominal distention, and does things are also not present today. He is not using his BiPAP because he is unwilling to try a new machine. Physician chart confirms that he does take losartan 25 mg daily, metoprolol succinate 100 mg daily, digoxin 125 mcg daily as well as Plavix and Eliquis. Patient takes 100 mg of torsemide in the morning and 100 mg of torsemide in the afternoon on Wednesdays and Fridays as well as spironolactone 25 mg daily and metolazone 2.5 mg once a week on Fridays. Potassium was recently increased to 20 mEq inthe morning and 20 mEq in the evening. Subsequent workup at our facility included a knee x-ray suggesting mild prepatellar soft tissue swelling. No fracture or dislocation appreciated. Routine labs revealed leukocytosis at 16 and hypokalemia at 3.3. Glucose was elevated to 170 in a nondiabetic patient who just received steroids. Urinalysis is negative for infection. Uric acid is pending. CRP, procalcitonin, ESR and lactic acid are pending. EKG is pending. [id number], RVP and digoxin level are pending. Remaining labs are essentially unremarkable. Vital signs reveal an afebrile patient 36.8 C. Heart rate is 89. Respirations are 18 and nonlabored saturating 98% on room air. Blood pressure is 113/66 Because of the patient's somnolence, nursing has been unable to obtain an accurate and up-to-date medication list for this patient. I will continue the medications that were addressed in his PCP visit several days ago, however, the remaining medications will be left to the daylight team for verification. Subjective Past Medical History: Diagnosis Date AAA (abdominal aortic aneurysm) ([facility]) Anxiety state claustraphobia Atrial fibrillation (HCC) [...] nodule PVD (peripheral vascular disease) ([facility]) Past Surgical History: Procedure Laterality Date APPLY BONE FIXATION DEVICE,UNIPLANE Right 11/14/2019 APPLICATION OF EXTERNAL FIXATOR UNIPLANE performed by Mayank Friedman MD at OR [facility] BIMALLEOLAR ANKLE FX W/ FIXATION Right 11/27/2019 OPEN TREATMENT BIMALLEOLAR ANKLE FRACTURE performed by Donavan Ramirez Jr., MD at [facility] COLONOSCOPY THRU STOMA, W/BIOPSY 03/06/2011 fair prep, polyps x4, path shows adenomatous tissue repeat in 3 years COLONOSCOPY, DIAGNOSTIC (RECTUM) 04/21/2014 hyperplastic polyp, multiple cecal AVM's, repeat 5 yrs/COLONOSCOPY FLEXIBLE PROXIMAL DIAGNOSTIC performed by Jake Montoya MD at [facility] COLONOSCOPY, DIAGNOSTIC (RECTUM) N/A 10/27/2022 [facility], Colonoscopy, multi polyps in cecum, transverse, recto-sigmoid / biopsies benign adenomatous polyp and serrated adenomatous polyps / 3 year recall CORONARY ANGIOGRAPHY W/LEFT HEART CATH Right 02/17/2019 CORONARY ANGIOGRAPHY W/LEFT HEART CATH [place] Mcke[place] [facility]GIOGR[place]HY W/LEFT HEART CATH Right 10/20/2020 CORONARY ANGIOGRAPHY W/LEFT HEART CATH performed by Winston Mckeon MD [place] [facility] [place]ONARY ANGIOGRAPHY W/LEFT HEART CATH Right 10/08/2023 CORONARY ANGIOGRAPHY W/LEFT HEART CATH performed by Thea Wilkes MD [place] [facility]ONARY ANGIOGRAPHY W/RIGHT+LEFT CATH 04/23/2012 CORONARY ANGIOGRAPHY W/RIGHT+LEFT CATH performed [place] Donavan Egan [place] [facility]OVASCULAR REPAIR AORTA/INFRARENAL 2 PROSTHESES N/A 04/15/2018 fenestrated endovascular aortic aneurysm repair, 2 vessel fenestrations (bilateral renal) and SMA scallop performed by Evens Hoyt MD at [facility] INTRAVASCULAR STENT, PERC, FIRST VESSEL OPEN FEMORAL ARTERY EXPOSURE FOR ENDOVASCULAR PROSTHESIS, UNILAT Bilateral 04/15/2018 bilateral femoral artery cutdowns performed by Evens Hoyt MD at [facility] REMOVE BONE FIXATION DEVICE Right 11/27/2019 REMOVAL OF EXTERNAL FIXATION performed by Donavan Ramirez Jr., MD at [facility] SACROILIAC JOINT INJECT W/GUIDANCE 02/14/2023 INJECTION SACROILIAC JOINT performed by Rajinder Corado DO at [facility] SACROILIAC JOINT INJECT W/GUIDANCE 07/11/2023 INJECTION SACROILIAC JOINT performed by Cousinjohn, Rajinder Darden DO at OR [facility] Family History Problem Relation Age of Onset [...] swelled Simvastatin Other reaction(s): MUSCLE ACHES MEDICATIONS Colchicine 0.6 MG Oral Tablet Take 1 Tablet by mouth in the morning and 1 Tablet before bedtime. Buster Jessica MD Needs Review HYDROcodone-Acetaminophen 7.5-325 MG Oral Tablet Take 1 Tablet by mouth every 6 hours as needed forPain, Severe. Buster Jessica MD Needs Review Potassium Chloride [...] every 4 hours as needed for Wheezing. Ej Noble MD Needs Review Fluticasone-Salmeterol 250-50 MCG/ACT Inhalation Aerosol Powder Breath Activated (Wixela Inhub) Inhale 1 Puff by mouth in the morning and 1 Puff before bedtime. RealEj rios MD Needs Review metOLazone 2.5 MG Oral Tablet (Zaroxolyn) Take 1 Tablet by mouth once a week. take 30 minutes priorto torsemide Buster Jessica MD Needs Review Allopurinol 100 MG Oral Tablet (Zyloprim) Take 1 Tablet by mouth in the morning. Buster Jessica MD Needs Review hydrOXYzine HCl 25 MG Oral Tablet Take 0.5 Tablets by mouth at bedtime as needed for Other (sleep).Buster Jessica MD Needs Review Desvenlafaxine Succinate ER 100 MG Oral Tablet Extended Release 24 Hour (Pristiq) Take 1 Tablet by mouth in the morning. Buster Jessica MD Needs Review Naloxone HCl 4 MG/0.1ML Nasal Liquid (Narcan Nasal) Administer 1 spray into 1 nostril for suspectedopioid overdose. Seek immediate medical attention. [email or web address] Octavio Hawthorne MD Needs Review Patient not taking: Reported on 10/31/2023 ARIPiprazole 2 MG Oral Tablet (Abilify) Take 1 Tablet by mouth in the morning. Buster Jessica MD Needs Review Benzonatate 100 MG Oral Capsule Take 1 Capsule by mouth 3 times a day as needed for Cough. Buster Jessica MD Needs Review Digoxin 125 [...] the skin every 14 days. Donavan Barker, Needs Review Baclofen 20 MG Oral Tablet [...] the morning. Patient, History Per Needs Review Torsemide 100 MG Oral Tablet (Demadex) Take 1 tablet by mouth every morning. Take 1 tab on Sunday, Sunday and Sunday afternoon. Buster Jessica MD Needs Review Patient taking differently: Take 1 tablet by mouth every morning. Take an additional tablet on Sunday, Sunday and Sunday afternoon only. Patient's past history, medications, and allergies were reviewed. Review of Systems Constitutional: Negative. HENT: Negative. Eyes: Negative. Respiratory: Negative. Cardiovascular: Negative. Gastrointestinal: Negative. Endocrine: Negative. Genitourinary: Negative. Musculoskeletal: Positive for arthralgias. Left knee pain Skin: Negative. Allergic/Immunologic: Negative. Neurological: Positive for weakness. Hematological: Negative. Psychiatric/Behavioral: Negative. All other systems reviewed and are negative. Objective Physical Exam Most Recent Vital Signs: BP: 125 mmHg/61 mmHg (11/03/2399) Pulse: 84 (11/03/2399) Temp: 37.17 C (11/03/2399) Temp Summary: Temp Min: 36.8 C (98.3 F) Max: 37.2 C (98.9 F) SpO2: 96 % (11/03/2399) O2 flow rate: Supplemental O2 Delivery: Room Air, None (11/03/2399) Physical Exam Vitals and nursing note reviewed. Constitutional: Appearance: He is obese. Comments: Somnolent but arouses to verbal stimuli. Drifts back to sleep. Follows commands appropriately. HENT: Head: Normocephalic and atraumatic. Right Ear: External ear normal. Left Ear: External ear normal. Nose: Nose normal. Mouth/Throat: Mouth: Mucous membranes are dry. Pharynx: Oropharynx is clear. Eyes: Extraocular Movements: Extraocular movements intact. Conjunctiva/sclera: Conjunctivae normal. Pupils: Pupils are equal, round, and reactive to light. Cardiovascular: Rate and Rhythm: Normal rate. Pulses: Normal pulses. Heart sounds: Normal heart sounds. Comments: Paced rhythm Pulmonary: Effort: Pulmonary effort is normal. Breath sounds: Normal breath sounds. Abdominal: General: Bowel sounds are normal. Palpations: Abdomen is soft. Musculoskeletal: General: Normal range of motion. Cervical back: Normal range of motion and neck supple. Skin: General: Skin is warm and dry. Capillary Refill: Capillary refill takes less than 2 seconds. Neurological: General: No focal deficit present. Mental Status: He is alert. Psychiatric: Mood and Affect: Mood normal. Behavior: Behavior normal. Thought Content: Thought content normal. Judgment: Judgment normal. Peripheral Line Lower;Right 20 Gauge (Active) Number of days: 1 STUDIES: Encounter Orders Labs and other studies reviewed with pertinent findings noted below: Basic Metabolic Panel [[id number]] (Abnormal) Collected: 11/02/232252 Updated: 11/02/232325 Specimen Source: Blood, Venous BUN 18 mg/dL Creatinine 1.2 mg/dL Estimated Glomerular Filtration Rate 63 mL/min Sodium 130 Low mmol/L Potassium 3.3 Low mmol/L Chloride 87 Low mmol/L CO2 27 mmol/L Anion Gap 16 High mmol/L Glucose 170 High mg/dL Calcium 8.9 mg/dL Urinalysis, Reflex to Culture [[id number]] (Abnormal) Collected: 11/02/23 2310 Updated: 11/02/23 232 Specimen Source: Urine, Clean Catch Narrative: The following orders were created for panel order URINALYSIS, REFLEX TO CULTURE (NOT FOR NEUTROPENIC PATIENTS). Procedure Abnormality Status --------- ------ URINALYSIS, REFLEX TO CU...[[id number]] Final result URINALYSIS, REFLEX TO CU...[[id number]] Abnormal Final result Please view results for these tests on the individual orders. Urinalysis, Reflex to Culture [[id number]] (Abnormal) Collected: 11/02/232309 Updated: 11/02/232320 Specimen Source: Urine, Clean Catch Color, Urine Yellow Clarity, Urine Clear Glucose, Urine Negative mg/dL Bilirubin, Urine Negative Ketone, Urine Negative mg/dL Specific [place], Urine 1.013 Blood, Urine Negative pH, Urine 6.0 Units Protein, Urine Negative mg/dL Urobilinogen, Urine 1.0 mg/dL Nitrite, Urine Negative Esterase, Urine Negative RBC, Urine 0-2 /HPF WBC, Urine 0-2 /HPF Bacteria, Urine 0-25 /HPF Hyaline, Cast, Urine 1-4 Abnormal /LPF Culture, Urine -- Urinalysis, Reflex to Culture (Cup Only) [[id number]] Collected: 11/02/232309 Updated: 11/02/232314 Specimen Source: Urine, Clean Catch Urinalysis, Reflex to Culture Specimen specimen collected and received CBC with WBC Differential [[id number]] (Abnormal) Collected: 11/02/232252 Updated: 11/02/232303 Specimen Source: Blood, Venous Narrative: The following orders were created for panel order CBC WITH WBC DIFFERENTIAL. Procedure Abnormality Status --------- ------ CBC[[id number]] Abnormal Final result DIFFERENTIAL, AUTOMATED[[id number]] Abnormal Final result Please view results for these tests on the individual orders. CBC [[id number]] (Abnormal) Collected: 11/02/232252 Updated: 11/02/232303 Specimen Source: Blood, Venous WBC 16.02 High K/uL RBC 4.47 M/uL HGB 12.9 Low g/dL HCT 39.8 Low % MCV 89.0 fL MCH 28.9 pg MCHC 32.4 g/dL RDW 15.3 % PLT 261 K/uL MPV 11.3 fL Differential, Automated [[id number]] (Abnormal) Collected: 11/02/232252 Updated: 11/02/232303 Specimen Source: Blood, Venous WBC 16.02 High K/uL Neutrophils % 85.9 High % Lymphocytes % 4.6 Low % Monocytes % 9.4 % Eosinophils % 0.0 % Basophils % 0.1 % Absolute Neutrophils 13.75 High K/uL Absolute Lymphocytes 0.74 Low K/ul Absolute Monocytes 1.51 High K/uL Absolute Eosinophils 0.00 K/uL Absolute Basophils 0.02 K/uL Radiology Reports (Last 300 days) 11/02/23 2327 XR KNEE 1-2 VIEWS Final result Details Impression: IMPRESSION: Mild prepatellar soft tissue swelling. No acute fractures. Assessment and Plan IMPRESSION: Principal Problem: Ambulatory dysfunction Active Problems: Gout attack Leukocytosis Hypokalemia Resolved Problems: * No resolved hospital problems. * DIFFERENTIAL AND PLAN: Admit to observation Ambulatory dysfunction in the setting of gouty attack -as per HPI -patient did well on Medrol Dosepak and allopurinol combination. However, after completion of Dosepak, pain returned and worsened. -started on hydrocodone which offered no relief -started on colchicine which offered no relief -patient takes digoxin which is known to elevate the levels of both colchicine and digoxin when taken together. Would recommend discontinuing colchicine at this time. -start prednisone taper. 40 mg times 4 days, then 30 mg x 2 days, then 20 mg x 2 days, then 10 mg x2 days then 5 mg x 2 days then stop -p.r.n. Ibuprofen 400 mg q.8 hours. Would not take for longer than 2 days -restart allopurinol once flare pain has subsided -patient will require outpatient labs to monitor uric acid levels. Titrate allopurinol level to approximately 6 for ongoing control. -CK, CRP, ESR and lactic acid -PT/OT -care management consult -EKG for baseline Leukocytosis -white count 16 -patient just completed outpatient steroid pack and received 10 mg IV Decadron in the emergency -potentially reactive due to gouty attack -afebrile -CRP, ESR, procalcitonin and lactic acid pending -hold antibiotic coverage at this time Hypokalemia -mild -potassium 3.3 -received 40 mEq p.o. potassium in the emergency room -monitor electrolytes -telemetry -EKG History of Atrial fibrillation -EKG for baseline -digoxin level -continue Eliquis 5 mg p.o. twice daily -continue metoprolol as prescribed -monitor electrolytes CAD, hypertension, hyperlipidemia -continue metoprolol as prescribed -continue Eliquis -continue losartan -continue Plavix -EKG for baseline HFmrEF -not currently in exacerbation -continue metoprolol -continue metolazone -continue torsemide CHRONIC PROBLEMS CAD Paroxysmal atrial fibrillation HFmrEF Cardiomyopathy Biventricular AICD in-situ LBBB Hypertension Hyperlipidemia PVD Thoracic aortic aneurysm BRIAN Pulmonary nodule COPD History is tobacco use BPH Gout Osteoarthritis Chronic low back pain Peripheral neuropathy History skin cancer Anxiety Depression All other pre-hospital problems at baseline. Diet: Heart healthy GI prophylaxis: Omeprazole DVT/PE prophylaxis: Continue Eliquis Code status: Full code Patient was seen and evaluated bedside. Plan of care established in collaboration with Dr. Schofield. I spent a total of 59 minutes coordinating, documenting, and providing care for this patient excluding time spent in the performance of separately billed services or time spent by another provider/QHP. PHARMACOLOGIC VTE PROPHYLAXIS: Eliquis Tabs CODE STATUS: Full Code EXPECTED DISCHARGE DATE: No information available documented in this encounter Consult Notes * Erika Rachel, STEVEN - 11/03/2023 8:50 AM EDTAssociated Order(s): ADULT OCCUPATIONAL THERAPY CONSULT IP GENERAL EVALUATION - Occupational Therapy [address] [id number] Name: Dago Gunter Location: [facility] MH2 ACU-232/01 Date: 11/03/2023 Time: 8:50 AM Dago Gunter is a 73 year old male. Patient Status: Observation Insurance: Payor: MEDICARE Plan: MEDICARE A AND B Product Type: *No Product type* Payor: [employer] Plan: [employer] HM-SL Product Type: *No Product type* Patient Seen: at bedside, nursing cleared patient for therapy Patient Identified By: Name, ID Band and Date Diagnosis: Ambulatory Dysfunction (11/03/23753) Status of treatment: Evaluation completed (11/03/23753) Orders: OT evaluation and treatment (11/03/23753) Weight Bearing Status: Weight bearing as tolerated (11/03/23753) Precautions: Alarms;Falls;Safety (11/03/23753) Total Treatment Time: 8 (0802) (11/03/234) Past Medical History: Past Medical History: Diagnosis [...] UNIPLANE performed by Mayank Friedman MD at [facility] BIMALLEOLAR ANKLE FX W/ FIXATION Right 11/27/2019 OPEN TREATMENT BIMALLEOLAR ANKLE FRACTURE performed by Donavan Ramirez Jr., MD at [facility] COLONOSCOPY THRU STOMA, W/BIOPSY 03/06/2011 fair prep, polyps x4, path shows adenomatous tissue repeat in 3 years COLONOSCOPY, DIAGNOSTIC (RECTUM) 04/21/2014 hyperplastic polyp, multiple cecal AVM's, repeat 5 yrs/COLONOSCOPY FLEXIBLE PROXIMAL DIAGNOSTIC performed by Jake Montoya MD at [facility] COLONOSCOPY, DIAGNOSTIC (RECTUM) N/A 10/27/2022 [facility], Colonoscopy, multi polyps in cecum, transverse, recto-sigmoid / biopsies benign adenomatous polyp and serrated adenomatous polyps / 3 year recall CORONARY ANGIOGRAPHY W/LEFT HEART CATH Right 02/17/2019 CORONARY ANGIOGRAPHY W/LEFT HEART CATH performed [place] Mcke[place] [facility] [place]ONARY ANGIOGRAPHY W/LEFT HEART CATH Right 10/20/2020 CORONARY ANGIOGRAPHY W/LEFT HEART CATH performed by Winston Mckeon MD [place] [facility]ONARY ANGIOGRAPHY W/LEFT HEART CATH Right 10/08/2023 CORONARY ANGIOGRAPHY W/LEFT HEART CATH performed by Thea Wilkes MD [place] [facility] [place] CORONARY ANGIOGRAPHY W/RIGHT+LEFT CATH 04/23/2012 CORONARY ANGIOGRAPHY W/RIGHT+LEFT CATH performed by Donavan Egan [place] [facility] ENDOVASCULAR REPAIR AORTA/INFRARENAL 2 PROSTHESES N/A 04/15/2018 fenestrated endovascular aortic aneurysm repair, 2 vessel fenestrations (bilateral renal) and SMA scallop performed by Evens Hoyt [place] [facility] [place]TRAVASCULAR STENT, PERC, FIRST VESSEL OPEN FEMORAL ARTERY EXPOSURE FOR ENDOVASCULAR PROSTHESIS, UNILAT Bilateral 04/15/2018 bilateral femoral artery cutdowns performed by Evens Hoyt MD [place] [facility] [place] REMOVE BONE FIXATION DEVICE Right 11/27/2019 REMOVAL OF EXTERNAL FIXATION performed by Donavan Ramirez Jr., [place] [facility] [place] SACROILIAC JOINT INJECT W/GUIDANCE 02/14/2023 INJECTION SACROILIAC JOINT performed by Rajinder Corado DO at OR [facility] SACROILIAC JOINT INJECT W/GUIDANCE 07/11/2023 INJECTION SACROILIAC JOINT performed by Rajinder Corado DO at OR [facility] Social History/Disposition Lives with: Spouse (11/03/23753) Assistance available: Yes (11/03/23753) Dwelling type: Apartment (11/03/23753) Entry steps: None (11/03/23753) Inside steps: None (11/03/23753) Bedroom location: 1st floor (11/03/23753) Bath location: 1st floor shower (11/03/23753) Prior Level of Function Reported by: Patient (11/03/23 075) Ambulation: Ambulatory without device (11/03/23 075) Grooming: Independent (11/03/23753) Bathing: Independent (11/03/23753) Dressing: Independent (11/03/23753) Feeding: Independent (11/03/23753) Toileting: Independent (11/03/23753) Meal Prep: Independent (11/03/23753) Homemaking: Independent (11/03/23753) Shopping: Independent (11/03/23753) Medication Management: Independent (11/03/23753) Money Management: Independent (11/03/23753) Occupation/Leisure Skills: Retired (11/03/23753) Driving: Yes (11/03/23753) Durable Medical Equipment at home: No device (11/03/23753) Subjective: Patient drowsy but able to wake up enough to answer questions and participate in today's evaluation Pain: Patient has complaints of pain. Pain located left knee. 09/15 Observations Consciousness: Alert;Eyes open (11/03/23753) Orientation: Person;Time (11/03/23753) Psychosocial: Patient can communicate basic needs;Patient can converse in a social setting (11/03/23753) Sitting posture: Forward head;Rounded shoulders (11/03/23753) Standing posture: Forward head;Rounded shoulders (11/03/23753) Safety awareness: The Patient verbalizes insight of current deficits.;The Patient demonstrates carryover of insight during functional tasks.;The Patient can communicate basic needs.;Needs cueing supervision. (11/03/23753) Other Findings Endurance: Sitting tolerance;Standing tolerance;Functional activity;Good (11/03/23753) Edema: Not assessed (11/03/23753) Current Functional Status: Bilateral Upper Extremity Hand Dominance: Right (11/03/23753) Range of Motion: WNL (11/03/23753) Strength Assessment: WNL (11/03/23753) Self Care Able to provide self care: Yes (11/03/23753) Feeding: Modified Independent (11/03/23753) Dressing Lower Body: Modified Independent (11/03/23753) Functional Ambulation Assistive Device: Rolling walker (11/03/23753) Distance in feet:: 20 (11/03/23753) Level of Assistance: Contact Guard (11/03/23753) Bed Mobility Supine-Sit: Contact Guard (11/03/23753) OT Transfers Sit-Stand: Contact Guard (11/03/23753) Stand-Sit: Contact Guard (11/03/23753) Balance Sit (Static): Good (11/03/23753) Sit (Dynamic): Good (11/03/23753) Stand (Static): Good (11/03/23753) Stand (Dynamic): Fair (11/03/23753) Alarm Status Patient positioned in: Bed (11/03/23753) With: Pressure pad alarm intact and functioning and call griffin in reach (11/03/23753) Patient and Family Goals: to get well and to return home Patient Education Education Topic: Role of OT;Plan of care goals;Energy conservation;Deep breathing techniques (11/03/23753) Review of Precautions: Safety;Fall (11/03/23753) Review of Exercises: Verbal Exercises Provided (11/03/23753) Method of Education: Verbalized to patient (11/03/23753) Education Provided to: Patient (11/03/23753) Response to Education: Receptive and agreeable to education (11/03/23753) Barriers to learning: Hearing (11/03/23753) Preferred learning method: Combination (11/03/23753) Treatment Provided: Evaluation Low Complexity 8 minutes - 48011: Patient was cooperative and pleasant during treatment session. Low complexity evaluation performed and functional mobility deficit, bed mobility deficit, decreased strength, and decreased endurance deficits were identified that resultin activity limitation. The patient does not have any comorbidities that affect occupational performance. There were no modifications necessary to complete the evaluation. Deficits Requiring O.T. Treatment: Deficits requiring O.T. treatment needs: ADL/self-care;Endurance;Safety;Functional mobility;Weakness (11/03/23753) Goals: Bathing: Upper: independent (pt does 100%). Lower: independent (pt does 100%) Dressing: Upper: independent (pt does 100%). Lower: independent (pt does 100%). Bed Mobility with: Supine to Sit: independent (pt does 100%) Sit to supine: independent (pt does 100%). Transfers with: Sit to Stand: independent (pt does 100%) Stand to Sit: independent (pt does 100%). Functional Ambulation: level of Assistance: independent (pt does 100%) . Demonstrates toileting at independent (pt does 100%) Goal Time Frame: 1-3 Sessions Assessment: Patient lives with spouse in a multistory home with 13 steps to enter and 22 steps to get to his bedroom. Patient reports at baseline he has no difficulty with steps. Patient is independent at baseline with ADL tasks. Patient drowsy but oriented to person and time. Patient completed donand doffing of socks with MOD I. Patient completed bed mobility with CGA x 1 and increased effort. Patient completed sit-stand with CGA x 1 and use of RW. Patient ambulated within room for a total of20ft with RW and CGA x 1. Patient had complaints of left knee pain rated as a 2/10. Patient stated he feels he could complete his steps and return home today if he were able to. Patient may benefit from continued skilled occupational therapy services to further increase overall strength and endurance to maximize independence and safety with ADLs prior to discharge. Would consider post-acute care services which may include home health or outpatient services. The level of care will be determined in collaboration with the patient, family/caregiver, and care team members. Treatment Plan: Energy Conservation, Safety, Bed mobility training, Functional Ambulation, Transfertraining, Upper extremity strengthening, and Endurance Anticipated Frequency (on eval): 1 to 3 times per week (11/03/23753) AM-PAC Help From Another Person Eating Meals: None (11/03/23753) Help From Another Person Taking Care of Personal Grooming: None (11/03/23753) Help From Another Person To Put On/Take Off Upper Body Clothing: None (11/03/23753) Help From Another Person To Put On/Take Off Lower Body Clothing: None (11/03/23753) Help From Another Person Toileting: A little (11/03/23753) Help From Another Person Bathing: A little (11/03/23753) OT AM-PAC Score: 22 (11/03/23753) OT AM-PAC t-Scale Score: 47.1 (11/03/23753) HLM (Highest Level of Mobility) Goal: Level 5 standing (1 or more minutes) (11/03/23753) * Queta Belcher, PT - 11/03/2023 7:54 AM EDTAssociated Order(s): ADULT PHYSICAL THERAPY CONSULT IP GENERAL EVALUATION - Physical Therapy [address] [address] Name: Dago Gunter Location: [facility] [id number] Date: 11/03/2023 Time: 10:03 AM Dago Gunter is a/an 73 year old male. Patient Status: Observation Insurance: Payor: MEDICARE Plan: MEDICARE A AND B Product Type: *No Product type* Payor: [employer] Plan: [employer] HM-SL Product Type: *No Product type* Patient Seen: at bedside, nursing cleared patient for therapy Patient Identified By: Name, ID Band and Date Diagnosis: Ambulatory Dysfunction (11/03/23753) Status of treatment: Evaluation completed (11/03/23753) Orders: PT evaluation and treatment (11/03/23753) Weight Bearing Status: Weight bearing as tolerated (11/03/23753) Precautions: Safety;Falls (11/03/23753) Total Treatment Time--free text: 15 (07:54-8:02; 8:55-9:02) (11/03/23753) Past Medical History: Past Medical History: Diagnosis [...] performed by Mayank Friedman MD at OR [facility] BIMALLEOLAR ANKLE FX W/ FIXATION Right 11/27/2019 OPEN TREATMENT BIMALLEOLAR ANKLE FRACTURE performed by Donavan Ramirez Jr., [place] [facility] [place] TH[place]OMA, W/BIOPSY 03/06/2011 fair prep, polyps x4, path shows adenomatous tissue repeat in 3 years COLONOSCOPY, DIAGNOSTIC (RECTUM) 04/21/2014 hyperplastic polyp, multiple cecal AVM's, repeat 5 yrs/COLONOSCOPY FLEXIBLE PROXIMAL DIAGNOSTIC performed by Jake Montoya MD at ENDOSCOPY [facility] COLONOSCOPY, DIAGNOSTIC (RECTUM) N/A 10/27/2022 [facility], Colonoscopy, multi polyps in cecum, transverse, recto-sigmoid / biopsies benign adenomatous polyp and serrated adenomatous polyps / 3 year recall CORONARY ANGIOGRAPHY W/LEFT HEART CATH Right 02/17/2019 CORONARY ANGIOGRAPHY W/LEFT HEART CATH performed [place] Winston Mckeon [place] [facility] [place]GIOGR[place] W/LEFT HEART CATH Right 10/20/2020 CORONARY ANGIOGRAPHY W/LEFT HEART CATH performed by Winston Mckeon MD [place] [facility] [place]ONARY ANGIOGRAPHY W/LEFT HEART CATH Right 10/08/2023 CORONARY ANGIOGRAPHY W/LEFT HEART CATH performed by Thea Wilkes MD [place] [facility] [facility] [place]ONARY ANGIOGRAPHY W/RIGHT+LEFT CATH 04/23/2012 CORONARY ANGIOGRAPHY W/RIGHT+LEFT CATH performed by Donavan Egan [place] [facility] [place]OVASCULAR REPAIR AORTA/INFRARENAL 2 PROSTHESES N/A 04/15/2018 fenestrated endovascular aortic aneurysm repair, 2 vessel fenestrations (bilateral renal) and SMA scallop performed by Evens Hoyt MD at [facility] INTRAVASCULAR STENT, PERC, FIRST VESSEL OPEN FEMORAL ARTERY EXPOSURE FOR ENDOVASCULAR PROSTHESIS, UNILAT Bilateral 04/15/2018 bilateral femoral artery cutdowns performed by Evens Hoyt MD at [facility] REMOVE BONE FIXATION DEVICE Right 11/27/2019 REMOVAL OF EXTERNAL FIXATION performed by Donavan Ramirez Jr., MD at [facility] SACROILIAC JOINT INJECT W/GUIDANCE 02/14/2023 INJECTION SACROILIAC JOINT performed by Rajinder Corado DO at [facility] SACROILIAC JOINT INJECT W/GUIDANCE 07/11/2023 INJECTION SACROILIAC JOINT performed by Rajinder Corado DO at [facility] Subjective: Sandy was agreeable to participating. He feels he can return home. Social History/Disposition Lives with: Spouse (11/03/23 075) Assistance available: Yes (11/03/23 075) Dwelling type: Apartment (11/03/23 075) Entry steps: Other - Describe (13) (11/03/23 075) Inside steps: Other - Describe (22) (11/03/23 075) Bedroom location: 1st floor (11/03/23 075) Bath location: 1st floor shower (11/03/23753) Prior Level of Function Reported by: Patient (11/03/23753) Ambulation: Ambulatory without device (11/03/23753) Devices at home: No device (11/03/23753) Observations Consciousness: Alert (11/03/23753) Orientation: Person;Time (11/03/23753) Psychosocial: Patient can communicate basic needs (11/03/23753) Sitting Posture: Forward head;Rounded shoulders (11/03/23753) Standing Posture: Forward head;Rounded shoulders (11/03/23753) Pain: Patient has complaints of pain. Pain located left knee. 09/15. Staff Notified Range of Motion Range of Motion: WFL (11/03/23753) Strength Assessment Strength Assessment: WNL (11/03/23753) P.T. Bed Mobility Supine-Sit: Contact Guard (11/03/23753) Transfers Sit-Stand: Contact Guard (11/03/23753) Stand-Sit: Contact Guard (11/03/23753) Ambulation: Distance ambulated (feet): 20 feet, 75 feet x 1 Assistive Device: Rolling walker Assist: Contact Guard Stair Training: Number of stairs: 8 Number of handrails: single handrail Level of Assistance: CGA Balance Sit (Static): Good (11/03/23753) Sit (Dynamic): Good (11/03/23753) Stand (Static): Good (11/03/23753) Stand (Dynamic): Fair (11/03/23753) Patient and or Family Goal(s): to get well and to return home Patient Education Review of Precautions: Fall;Safety (11/03/23753) Preferred learning method: Combination (11/03/23753) Barriers to learning: Hearing (11/03/23753) Method of Education: Verbalized to patient (11/03/23753) Topic of Education: Goals/plan of care Method of Education: Verbal discussion and explanation provided to patient on current status and recommendations: verbalized understanding and or agreement of this information Treatment Provided: Evaluation Low Complexity 15 minutes - 44819: Patient was cooperative and pleasant during treatment session. Low complexity evaluation performed with indication of no personal factors or comorbidities that impact plan of care. Patient presents with limitations in bed mobility, transfers, gait, balance, endurance, and safety, which will impact plan of care. These limitations will be addressed by the goals set for this patient. Alarm Status Patient positioned in: Bed (11/03/23753) With: Call griffin in reach (11/03/23753) Treatment Status: Treatment at bedside (11/03/23753) Goals: Demonstrate Bed Mobility with: Supine to Sit: modified independent (with device or slow) Sit to supine: modified independent (with device or slow) Demonstrate Transfers with: Sit to stand: modified independent (with device or slow) Stand to sit: modified independent (with device or slow) Demonstrate Ambulation: assistive device: rolling walker distance in feet: 100 level of assistance on level surface: modified independent (with device or slow) Demonstrate Stairclimbing: Number of steps: 22, single handrail, and Level of Assistance: supervision (with cues) Increase Balance: Good Time Frame: 1-3 visits Assessment: Sandy participated in PT consult. He had left knee pain and did benefit from rolling walker due to pain as it promoting mobility. He did not previously use a rolling walker at home. He completed bed mobility with CGA and transfers with CGA and rolling walker. He ambulated up to 75 feet with rolling walker and CGA. He completed 8 steps with single handrail and CGA. He sequenced stairs appropriately considering pain in left knee. Discussed having transport walker up/down stairs forhim or borrowing a device so he could have a device on each level of his home. He declined to complete 22 steps stating he felt he could complete the steps following completion of 8. He will benefit from PT intervention while admitted to promote endurance, tolerance of mobility and independence with all mobility. Would consider home with post-acute care services which may include outpatient therapy or home health. The level of care will be determined in collaboration with the patient, family/caregiver, and care team members. Deficits requiring P.T. treatment needs: Safety;Mobility;Balance;Weakness (11/03/23753) Equipment Needs: Rolling walker Treatment Plan: Bed mobility training, Transfer training, Gait training, Strengthening exercises, and Balance activities Anticipated Frequency (on eval): 1 to 3 times per week (11/03/23753) AM PAC Score with Stairs: 18 07:54-08:02 07:55-9:02 documented in this encounter Nursing Notes * Jolanta Tipton LPN - 11/03/2023 3:51 AM EDT Unable to do med rec on admission d/t patient not knowing his meds and too drowsy to stay awake to answer. Sundar SIEGEL aware. * Glo May RN - 11/03/2023 1:28 AM EDT Dual Licensed Skin Assessment completed by MARTIN Stover and CLARENCE Cody. The patient is/has a N/A Skin Breakdown (includes non blanchable erythema): No Scattered scabs and bruises. Scar on nose. Dry skin * Manolo Thompson RN - 11/02/2023 10:39 PM EDT Patient was not able to ambulate on his own. Patient needed full assistance x 2 to get out of wheelchair and into stretcher. Patient states it took four people to carry him down the stairs of his house. documented in this encounter ED Notes * Elayne Barnes RN - 11/02/2023 10:26 PM EDT L knee, R ankle, R finger pain has been worsening. Pt last took oxycodone 5mg around 1300. * Wayne Vergara DO - 11/02/2023 10:24 PM EDT HISTORY OF PRESENT ILLNESS Dago Gunter is a 73 year old male who presents to the ED for evaluation of Leg Pain and Weakness, Generalized. The patient was seen at . According to the patient he states he has a history of gout. He states over approximately the last week he believes he has been having a gout flare. He states he initially had pain in his right ankle and right knee. He was started on steroids at and some improvement. He states since stopping those steroids his pain has worsened mainly in his left knee and his right MCP joints. He states he was started on colchicine and allopurinol without significant improvement of the symptoms. He states this worsening pain his stopped him from walking or ambulating around in his house and he has not been eating or drinking as much. He states today the pain became so bad that he was unable to get out of his house. For people reportedly had carry him out of his house to bring him to the ER for further evaluation. He denies any associated fevers or chills. The patient's allergies, past history, and medications were reviewed. PHYSICAL EXAM Initial Vitals (see all): BP 116/64 | Pulse 89 | Resp 16 | Temp 98.3 | O2 95 %, Room Air, None | Weight 117.94 kg | Height 180.3 cm | BMI 36.26 kg/m2 Initial Pain Assessment (see all): 8 (severe pain)/10, Aching, location: L knee, R ankle, R fingers ([facility] Adult Scale 0-10) Physical Exam Vitals and nursing note reviewed. Constitutional: General: He is not in acute distress. Appearance: He is well-developed. He is not diaphoretic. HENT: Nose: Nose normal. Eyes: Pupils: Pupils are equal, round, and reactive to light. Cardiovascular: Rate and Rhythm: Normal rate and regular rhythm. Heart sounds: Normal heart sounds. No murmur heard. No friction rub. No gallop. Pulmonary: Effort: Pulmonary effort is normal. Breath sounds: Normal breath sounds. No rales. Abdominal: General: Bowel sounds are normal. Palpations: Abdomen is soft. Tenderness: There is no abdominal tenderness. Musculoskeletal: Cervical back: Normal range of motion and neck supple. Comments: Small left knee effusion with mild prepatellar swelling. Erythema present. Mild erythema and swelling in right MCP joints Neurological: Mental Status: He is alert and oriented to person, place, and time. PROCEDURES AND TREATMENTS ED Orders | ED Results MEDICAL DECISION MAKING Nursing notes and vital signs were reviewed. ED Course as of 11/03/23 0045 Fri Nov 02, 2023 2305 WBC(!): 16.02 [DM] 2322 UA unremarkable [DM] Sat Nov 03, 2023 0015 X-ray knee shows no signs of acute bony pathology by my interpretation. [DM] ED Course User Index [DM] Wayne Vergara DO Differential Diagnoses Based on my history, physical exam, and evaluation, the differential includes, but is not limited, to the following diagnoses: Gout flare, septic joint, arrhythmia, electrolyte abnormality. Patient found to be well appearing in no significant distress but was uncomfortable secondary to pain in his left knee and right hand. Findings consistent with likely gout. Patient denies any fevers or chills recently. No significant risk factors for septic joint otherwise. Subsequent labs performed that showed mild leukocytosis. X-ray showed no signs of acute bony pathology. Urinalysis was unremarkable. Likely gout flare causing ambulatory dysfunction. Patient given pain control with 8 mg of morphine total and patient still with significant difficulty walking. Patient reportedly has more than 20 stairs at home that he needs to get up to be able to get home. Internal Medicine contacted who agreed to admit the patient for further evaluation and treatment. Patient given Toradol and Decadronwhile in the ER for management of his symptoms as well. Amount and/or Complexity of Data Reviewed Labs: ordered. Decision-making details documented in ED Course. Radiology: ordered. Risk Prescription drug management. Decision regarding hospitalization. Clinical Impressions Gout attack Ambulatory dysfunction Disposition Admitted. I discussed the management of this patient with the admitting provider and I made a decision to admit the patient. Admission Order Ordered Status . 11/03/23 0037 Assign to Observation ONCE Acknowledged Wayne Vergara documented in this encounter Miscellaneous Notes * Communication - Magalis Villar RN - 11/03/2023 4:29 PM EDT VIRTUAL RN [facility]-[address] [address] Name: Dago Gunter [address] Date: 11/03/2023 Time: 4:29 PM I completed the Discharge Navigator. The patient was in the hospital. I was in a private office space at a [facility] location. After connecting through [employer], the patient was identified by name and date of and / or wristband checked. Patient (or authorized legal union representative) was then in formed that this was a Virtual Nurse visit and was being conducted confidentially over secure lines. My office door was closed. No one else was in the room with me. Patient acknowledged consent and understanding of privacy and security of the Virtual Nurse visit. I presented the opportunity for thepatient or authorized legal union representative to ask any questions regarding the visit today. The patient or authorized legal union representative agreed to participate. Pt denied any questions concerning dc instructions, meds, appt * Pt Handout (on AVS) - Magalis Villar RN - 11/03/2023 3:48 PM EDT Images from the original note were not included. [id number] Prednisone Oral Tablet Brands: Deltasone Uses This medicine is used for the following purposes: allergic reaction autoimmune disorder blood disorder endocrine disorder inflammatory disease immune suppression cancer COVID-19 (coronavirus) Instructions Take the medicine with food. Store at room temperature away from heat, light, and moisture. Do not keep in the bathroom. It is important that you keep taking each dose of this medicine on time even if you are feeling well. If you forget to take a dose on time, take it as soon as you remember. If it is almost time for thenext dose, do not take the missed dose. Return to your normal schedule. Do not take 2 doses at one time. Drug interactions can change how medicines work or increase risk for side effects. Tell your healthcare providers about all medicines taken. Include prescription and [id number] medicines, vitamins, and herbal medicines. Speak with your doctor or pharmacist before starting or stopping any medicine. Tell your doctor if symptoms do not get better or if they get worse. This medicine may affect your blood sugar levels. If you have diabetes, talk to your doctor before changing the dose of your diabetes medicine. This medicine may affect the strength of your bones. If you have or are at increased risk for osteoporosis (weakening of the bones), your doctor may recommend foods with calcium and vitamin D. Keep all appointments for medical exams and tests while on this medicine. Cautions Tell your doctor and pharmacist if you ever had an allergic reaction to a medicine. This medicine may cause serious bleeding from the stomach or bowels. Stop this medicine and call your doctor immediately if you see any signs of bleeding. Bleeding can cause pain in the stomach, vomiting up liquid that looks like coffee grounds, and red or dark tarry stools. Do not use the medication any more than instructed. Please check with your doctor before drinking alcohol while on this medicine. Avoid smoking while on this medicine. Smoking may increase your risk for stomach bleeding. This medicine may reduce your body's ability to fight infections. Avoid contact with people with colds, flu or other infections. Contact your doctor if you develop fever, cough, sore throat, or chills. Speak with your health care provider before receiving any vaccinations. This medicine passes into breast milk. Ask your doctor before . During , this medicine should be used only when clearly needed. Talk to your doctor about the risks and benefits. Always carry an ID card or wear a medical alert bracelet indicating your medical condition. Do not share this medicine with anyone who has not been prescribed this medicine. Side Effects The following is a list of some common side effects from this medicine. Please speak with your doctor about what you should do if you experience these or other side effects. acne agitated feeling or trouble sleeping decreased appetite high blood sugar high blood pressure nausea and vomiting stomach upset or abdominal pain Call your doctor or get medical help right away if you notice any of these more serious side effects: bleeding or bruising bone pain coughing up blood or vomit that looks like coffee grounds depression or feeling sad swelling of the legs, feet, and hands fever or chills fast or irregular heart beats menstruation changes (missed or fewer periods) mood changes muscle pain or cramps seizures thinning of the skin severe stomach or bowel pain dark, tarry stool unusual or unexplained tiredness or weakness increased urinary frequency blurring or changes of vision sudden or unexplained weight gain slow wound healing A few people may have an allergic reaction to this medicine. Symptoms can include difficulty breathing, skin rash, itching, swelling, or severe dizziness. If you notice any of these symptoms, seek medical help quickly. Extra Please speak with your doctor, nurse, or pharmacist if you have any questions about this medicine. [email or web address] IMPORTANT NOTE: This document tells you briefly how to take your medicine, but it does not tell youall there is to know about it. Your doctor or pharmacist may give you other documents about your medicine. Please talk to them if you have any questions. Always follow their advice. There is a more complete description of this medicine available in Danish. Scan this code on your smartphone or tablet or use the web address below. You can also ask your pharmacist for a printout. If you have any questions, please ask your pharmacist. The display and use of this drug information is subject to Terms of Use. Copyright(c) 2022 [employer]. 3219-9092 [employer]. All rights reserved. This information is not intended as a substitute for professional medical care. Always follow your healthcare professional's instructions. * Care Plan - Matt Bloom RN - 11/03/2023 2:59 PM EDT Clinical Goal(s): Patient will remain free of fall and injuries during this shift. (11/03/23 0700) Possible barriers to meeting goal(s)/advancing plan of care: left knee pain Stability of the patient: Moderately stable - low risk of patient condition declining or worsening Summary regarding today's goal(s): Met: Goal met Recommendations: Continue with home health PT/OT. * Ancillary Progress Note - Elvia Hassan RN - 11/03/2023 2:09 PM EDT CARE MANAGEMENT - ADULT DISCHARGE NOTE [facility] [address] [facility] [id number] Name: Dago Gunter Location: [address] Date: 11/03/2023 Time: 2:09 PM The following coordination of care and discharge plan has been coordinated with the care team, patient, family and/or caregiver according to the patients needs and preferences. Discharge Discharge Second Notice Important Message from Medicare delivered: Not Applicable (11/03/23 1358) Discharge Transportation: Personal Vehicle;Family/Friends drive (11/03/23 1358) Date of scheduled discharge transportation: 11/03/23 (11/03/23 1358) Time of scheduled discharge transportation: 1600 (11/03/23 1358) Patient declined post-hospital transition of care recommendation: N/A (11/03/23 135) Final Discharge Plan (Complete only at time of Discharge): Home with Services (11/03/23 1358) Durable Medical Equipment - Admitted Since 11/02/2023 Service Provider Selected Services Address Phone Fax Patient Preferred Last Updated [facility] Supp[facility] Durable Medical Equipment [address] [address] -- Elvia Hassan, [place] 11/03/2023 1409 Durable Medical Equipment - Episodes Includes Durable Medical Equipment providers with selected services from the active episodes listed below JESSICA Management Episode start date: 11/01/2023 There are no active outsourced providers for this episode. [facility] Episode start date: 10/09/2023 There are no active outsourced providers for this episode. Non-Specialty Episode start date: 08/06/2019 There are no active outsourced providers for this episode. Level 2 Complex Case Management Episode start date: 04/16/2018 There are no active outsourced providers for this episode. Home Medical Care - Admitted Since 11/02/2023 Service Provider Selected Services Address Phone Fax Patient Preferred Last Updated [facility] Home Health Services [facility] [address] [address] -- Elvia Hassan, [place] 11/03/2023 1353 Home Medical Care - Episodes Includes Home Medical Care providers with selected services from the active episodes listed below JESSICA Management Episode start date: 11/01/2023 There are no active outsourced providers for this episode. [facility] Episode start date: 10/09/2023 There are no active outsourced providers for this episode. Non-Specialty Episode start date: 08/06/2019 There are no active outsourced providers for this episode. Level 2 Complex Case Management Episode start date: 04/16/2018 There are no active outsourced providers for this episode. Per discussion with Hospitalist, pt was medically cleared for DC to home this date. Per discussion with the Tx Team, PT was agreeable to the Pt and a rolling walker will be supplied by [facility]. Resume use of nebulizer as directed. Per discussion with the Tx Team, there are no additional needs for Care Management to arrange at time of DC. Pt is aware of the DC plans and in agreement with same. Director Stage will continue to follow for any additional DC needs not yet identified. * Ancillary Progress Note - Elvia Hassan RN - 11/03/2023 2:00 PM EDT Care Management Discharge Planning Note: Per discussion with the Tx team, PT was recommended of which the Pt was agreeable. Director Stage provided choices to the Pt and their preference was [facility]. Director Stage released a referral in [place] and Marcelino at [facility] was made aware. Marcelino informed remote mortgage underwriter he would be in contact with the Pt later today or tomorrow to schedule SOC. Director Stage also faxed order for a rolling walker to [facility] in [place] per Pt's preference. [facility] said it would be mailed to the Pt and should be received Sunday or Sunday. Pt made aware. * Ancillary Progress Note - Elvia Hassan RN - 11/03/2023 1:35 PM EDT CARE MANAGEMENT - ADULT INITIAL SCREENING [facility] [id number] [facility] [address] Name: Dago Gunter [address] Date: 11/03/2023 Time: 1:35 PM Discussed patient with the interdisciplinary care team. This [facility] performed a chart review and met with Pt via phone to complete admission screen and assessed needs for transition planning. The healthcare network consultant role and services were explained and emotional support was provided. Director Stage met with Pt in order to complete care management assessment and to discuss DC planning. Pt was admitted to observation on 11/02/2023 from home after presenting with S/S of Gout attack . Pt describes having an intact family support [...] primary pharmacy has been identified as being [facility]. Pt denies difficulty completing ADLs prior to admission. Pt reports to owning a CPAP/BIPAP but not utilizing. Pt report to owning and using a nebulizer. Pt is expected to resume same at discharge. Chief Complaint: Leg Pain and Weakness, Generalized Prior Living Arrangements What was your living situation prior to admission/observation?: With Spouse (11/03/23 1324) Living Quarters: House (11/03/23 1324) Number of steps to enter living quarters:: 22 (11/03/23 1324) Do you have serious difficulty walking or climbing stairs? (5 years old or older): Yes (11/03/23 0114) History of falling: No (11/03/23 0900) Prior Level of Functioning Describe the patient's ability prior to admission/observation to perform ADLs: Performs independently (11/03/23 1324) Describe the patient's mobility status prior to admission: Patient ambulates independently (11/03/23 1324) Patient uses assistive device: No (11/03/23 132) Caregiver Information Patient Contacts Name Relation Home Work Mobile Ganesh Gunter Spouse [phone] Lili Gunter Adult Child [phone] Mary Gunter Adult Child [phone] Risk Stratification/Psychosocial/Care Gaps Risk Stratification Psycho Social / Medical Concerns Identified: Adjustment to illness/injury;Multiple Comorbidities (11/03/231323) Accessed Neighborly to connect patients to social care resources: No (11/03/23 132) OBRA or OPTIONS needed for placement: No (11/03/23 132) Readmission Risk Score: 13.43 (11/03/23 1200) AM-PAC Score With Stairs : 18 (11/03/23 0754) Prior to Admission Services Services Prior to Admission INHALATION THERAPIST Services (Services received within the last 30 days with exception, Psych within last two years): Durable Medical Equipment (11/03/231323) INHALATION THERAPIST Durable Medical Equipment (DME) in home: CPAP/BiPAP/Home Vent;Nebulizer (11/03/231323) INHALATION THERAPIST Transportation (Services received within the last 30 days): Family/Friends Personal Vehicle;Medical Transportation;Patient drives self (11/03/231323) Outpatient [facility]: Patient Care Team: Lisa Tenorio RN as [employer] Aid Labor ([facility]) Patient/Family Expectations: Return Home Once deemed medically appropriate, it is anticipated [...] the Pt wasagreeable and chose [facility]. [facility] will be mailing a rolling walker directly to the Pt's home. Director Stage will continue to meet with treatment team in order to discuss DC planning/needs. Director Stage will continue to follow for any identified needs and or concerns which may arise. For further screening information, please refer to the Care Management flow document. * Communication - Elizabeth Baig RN - 11/03/2023 8:39 AM EDT Outgoing call to John and verified name and of kartik. Reviewed patients meds and they are aurate. Dr. Schofield notified * Care Plan - Jolanta Tipton LPN - 11/03/2023 4:43 AM EDT Clinical Goal(s): patient will remain free from falls (11/03/23 0113) Possible barriers to meeting goal(s)/advancing plan of care: severe pain Stability of the patient: Moderately stable - low risk of patient condition declining or worsening Summary regarding today's goal(s): Met: Recommendations: poc * Ancillary Progress Note - Thompson. Cecille Regan RRT - 11/03/2023 2:02 AM EDT PATIENT DRIVEN PROTOCOL - Respiratory Care Services [address] [address] Name: Dago Gunter Location: [place] [address] [address] Date: 11/03/2023 Time: 2:02 AM Patient Driven Protocol Summary: Initial evaluation performed. This Treatment Plan and medications will be reviewed by the Primary Care Team for any contraindications. Respiratory Care Treatment Plan Aerosol Therapy Treatment:: Hand Held Nebulizer Tx PRN with Albuterol Sulfate: Unit dose 0.083%. to reduce work of breathing and improve pulmonary gas exchange. Additional Aerosolized Treatments: Inhaler(s) QDAY with Breo Ellipta (Fluticasone furoate 200 mcg and Vilanterol 25 mcg inhalation powder) / 1 inhalation . to suppress bronchial inflammation and edema by the use of systemic steroid sparing therapy. . The patient will be re-evaluated: No re-evaluation needed. Indications for treatment met. The Triage Level is: (Assessment Score = [...] 0 - No Surgical History Chest X-Ray: 0 - Not Performed or performed greater than 3 days ago Assessment Score: 2 Patient Assessment Clinical Findings Respiratory Pattern: 0 - RR 12 - 20; Patient only gets breathless with strenuous exercise. Breath Sounds: 3 - Crackles, mild wheezes, coarse bronchial, upper airway noises Cough Effectiveness: 0 - Strong non-productive Sputum Production: 0 - No sputum production Level of Activity: 1 - Ambulatory with assist O2 needed to keep SpO2 greater than or equal to 92%: 0 - Room Air Assessment Score: 4 Total Assessment Score: 6 Breath Sounds: Inspiratory and expiratory rhonchi bilaterally in the apex / apices.. Cough and Sputum: No cough was present.. CXR: none available . Vital Signs: Resp: 20 (11/03/23 010) Pulse: 84 (11/03/2399) Temp: 37.2 C (98.9 F) (11/03/2399) BP: 125/61 (11/03/2399) SpO2: 96 % (11/03/2399) Primary Service: Hospitalists. Admitting Diagnosis: Gout attack [M10.9] Pulmonary Diagnosis: COPD and BRIAN. Prescriptions/Home Medications/Durable Medical Equipment: Patient uses Wixela ellipta and a prn nebulizer . No bipap machine at home. . Recommended New home medications/durable medical equipment/outpatient pulmonary/sleep referral tbd. * ED Aquacultural Worker Supervisor Note - Reyes Leon, RN - 11/03/2023 12:31 AM EDT Attempted to walk patient with a walker. Patient was able to take a few steps but states that he does not feel like he is walking well enough to go home though. Dr Vergara aware and at bedside documented in this encounter Plan of Treatment Upcoming Encounters Date Type Department Care Team (Latest Contact Info) Description 11/14/2023 9:10 AM EDT Office Visit [facility] [address] [place] [phone] Buster Jessica MD [address] [facility] [place] [id number] 11/21/2023 10:55 AM EDT Hospital Encounter [facility], Operating Room [facility] [address] [place] [phone] Freeman Beaulieu, DO [address] [place] [phone] 11/21/2023 10:55 AM EDT - 11/21/2023 11:20 AM EDT Surgery OR [facility], Operating Room [facility] [address] [place] [phone] Freeman Beaulieu, DO [address] [place] [phone] INJECTION SACROILIAC JOINT 11/22/2023 10:00 AM EDT Home Visit [facility] [place] [facility] [address] [place] [address] Lisa Tenorio RN [address] [place] [address] 01/15/2024 10:40 AM EDT Office Visit [facility] [address] [place] [phone] Clair Quarles, DO [address] [place] [address] 04/22/2024 9:30 AM EDT Cardiac Studies Cardiology, [facility] [address] [place] [address] [facility] [address] [place] [address] 05/19/2024 9:30 AM EDT Appointment Radiology, [place] [id number] [facility] [address] Scheduled Orders Name Type Priority Associated Diagnoses Orde r Schedule EKG EKG STAT Electrolyte abnormality One Time for 1 Occurrences starting 11/03/2023 until 11/03/2023 Scheduled Procedures Name Priority Associated Diagnoses Date/Ti [...] COVID-19 Vaccine ( season) 2023 11/08/2020, 10/08/2020 Influenza Vaccine (FLU shot) (#1) 2023 05/11/2022, 06/09/2021, 04/13/2020, Additional history exists DISCUSS TOBACCO CESSATION (REFER TO SMARTSET #3291) 06/02/2023 06/02/2022, 07/21/2020 Depression, Most Recent Score >= 10 (will fire each visit until score < 10) 08/30/2023 08/29/2023 GFR 11/02/2024 11/03/2023, 10/05, 10/30/2023, Additional history [...] 09/10/2008 LUNG CANCER SCREENING - USE SMARTSET 57428 Completed 08/22/2022, 05/22/2022, 02/21/2021, Additional history exists [...] this encounter Medical Devices Implanted Type Area Clinical Nurse Specialist Device Identifier Shelf Expiration Date Model / Serial / Lot 32mm X 109mm, Zenith Fenestrated Aaa Endovascular Proximal Body Graft, Two Proximal Internal Stent Implanted:Qty: 1 on 04/15/2018 by [place] [facility] [place] Aorta [facility] 03/20/2021 ZFKEDAR-P-2- [id number] / / [id number] Stent Graft [id number] - [id number] - [id number] Implanted:Qty: 1 on 04/15/2018 by Evens Hoyt [place] [facility] [place]: Renal Artery GETINGE : MAQUET 11/30/2020 [id number] / [id number] / [id number] Stent Graft [id number] - [id number] - [id number] Implanted:Qty: 1 on 04/15/2018 by Evens Hoyt [place] [facility] [place]: Renal Artery GETINGE : MAQUET 11/30/2020 03588 / [id number] / [id number] 28mm X 76mm Distal, 12mm Ipsilateral Leg, Zenith Fenestrated Aaa Endovascular Distal Bifurcated Body Graft Implanted:Qty: 1 on 04/15/2018 by Evens Hoyt [place] [facility] [place]A: Aorta [employer] 03/20/2021 [id number]-D-12 -28-76-C / / [id number] Graft Iliac Leg Spirlz [id number] - [id number] Implanted:Qty: 1 on 04/15/2018 by Evens Hoyt [place] [facility] [place]: Iliac [employer] 09/14/2020 [id number] / / [id number] Graft Iliac Leg Spirlz [id number] - [id number] Implanted:Qty: 1 on 04/15/2018 by Evens Hoyt [place] [facility] [place]: Iliac [employer] 11/09/2020 [id number] / / [id number] Transfixation Pin 6mm 294.950 - [id number] Implanted:Qty: 1 on 11/14/2019 by Mayank Friedman MD at OR [facility] Right: Ankle SYNTHES 294.950 / / Description:transfixation pi n Screw Schanz [id number] - [id number] Implanted:Qty: 2 on 11/14/2019 by Mayank Friedman MD at OR [facility] Right: Leg Lower SYNTHES 294.786SH A / / Description:self drilling sh antz screws 5.0mm x 200mm [place] Trauma 2.7 Lock Screw 16mm Implanted:Qty: 2 on 11/27/2019 by Donavan Ramirez Jr., [place] [facility] [place]: Ankle ESTHELA : TRAUMA [id number] / / Description:hardware set Esthela Trauma 2.7 Lock Screw 14mm Implanted:Qty: 1 on 11/27/2019 by Donavan Ramirez Jr., [place] [facility] [place]: Ankle ESTHELA : TRAUMA [id number] / / Esthela Trauma 3.5 Screw 14mm Implanted:Qty: 1 on 11/27/2019 by Donavan Ramirez Jr., [place] [facility] [place]: Ankle ESTHELA : TRAUMA [id number] / / Description:hardware set [place] Trauma 3.5 Screw 18mm Implanted:Qty: 1 on 11/27/2019 by Donavan Ramirez Jr., [place] [facility] [place]: Ankle ESTHELA : TRAUMA [id number] / / Description:hardware set Esthela 3.5 Lockscrew 16mm Implanted:Qty: 1 on 11/27/2019 by Donavan Ramirez Jr., MD at [facility] Right: Ankle [id number] / / Esthela 2.0 Plate Implanted:Qty: 1 on 11/27/2019 by Donavan Ramirez Jr., [place] [facility] [place]: Ankle [id number] / / Esthela 2.0 Lock Screw Implanted:Qty: 2 on 11/27/2019 by Donavan Ramirez Jr., [place] [facility] [place]: Ankle [id number] / / Esthela 2.0 Lock Screw Implanted:Qty: 1 on 11/27/2019 by Donavan Ramirez Jr., [place] [facility] [place]: Ankle [id number] / / Esthela 2.0 Lock Screw Implanted:Qty: 1 on 11/27/2019 by Donavan Ramirez Jr., [place] [facility] [place]: Ankle [id number] / / Plate Fib 5h - [id number] Implanted:Qty: 1 on 11/27/2019 by Donavan Ramirez Jr., [place] [facility] [place]: Ankle ESTHELA : TRAUMA / / Description:hardware set documented as of this encounter Procedures Procedure Name Priority Date/Time Associated Diagnosis Comments BASIC METABOLIC PANEL Routine 11/03/2023 6:38 AM EDT PT INR Routine 11/03/2023 6:38 AM EDT PHOSPHORUS Routine 11/03/2023 6:38 AM EDT CBC Routine 11/03/2023 6:38 AM EDT MAGNESIUM Routine 11/03/2023 6:38 AM EDT LACTATE STAT 11/03/2023 1:13 AM EDT SARS-COV-2 (COVID-19), NAAT STAT 11/03/2023 12:36 AM EDT XR KNEE 1-2 VIEWS Routine 11/02/2023 11: 27 PM EDT URINALYSIS, REFLEX TO CULTURE STAT 11/02/2023 11:10 PM EDT URINALYSIS, REFLEX TO CULTURE (CUP ONLY) STAT 11/02/2023 11:10 PM EDT URINALYSIS, REFLEX TO CULTURE (NOT FOR NEUTROPENIC PATIENTS) STAT 11/02/2023 11:10 PM EDT DIFFERENTIAL, AUTOMATED STAT 11/02/2023 10:53 PM EDT CRP (INFLAMMATORY MARKER) Add-on 11/02/2023 10:53 PM EDT BASIC METABOLIC PANEL STAT 11/02/2023 10:53 PM EDT CK Add-on 11/02/2023 10:53 PM EDT CBC STAT 11/02/2023 10:53 PM EDT PHOSPHORUS Add-on 11/02/2023 10:53 PM EDT ERYTHROCYTE SEDIMENTATION RATE (ESR) Add-on 11/02/2023 10:53 PM EDT CBC STAT 11/02/2023 10:53 PM EDT URIC ACID STAT 11/02/2023 10:53 PM EDT MAGNESIUM Add-on 11/02/2023 10:53 PM EDT DIGOXIN LEVEL Add-on 11/02/2023 10:53 PM EDT EXTRA SYRINGE Routine 11/02/2023 10:52 PM EDT EXTRA GREEN TOP WITH GEL Routine 11/02/2023 10:52 PM EDT EXTRA LIGHT BLUE TOP Routine 11/02/2023 10:52 PM EDT EXTRA TUBES Routine 11/02/2023 10:52 PM EDT PROCALCITONIN Add-on 11/02/2023 10:52 PM EDT documented in this encounter Results * PHOSPHORUS (11/03/2023 6:38 AM EDT) Phosphorus 3.0 2.5 - 4.8 mg/dL 11/03/2023 7:06 AM EDT LABORATORY [facility] Blood Venous blood specimen / Unknown Venipuncture / Unknown 11/03/2023 6:38 AM EDT 11/03/2023 6:46 AM EDT Sundar SIEGEL-C LAB BLOOD ORDERABLE S Performing Organization Address City/[facility]/ZIP Co de Phone Number LABORATORY [address] [address] * MAGNESIUM (11/03/2023 6:38 AM EDT) Magnesium 2.2 1.5 - 2.6 mg/dL 11/03/2023 7:06 AM EDT LABORATORY [facility] Blood Venous blood specimen / Unknown Venipuncture / Unknown 11/03/2023 6:38 AM EDT 11/03/2023 6:46 AM EDT Sundar KELLERC LAB BLOOD ORDERABLE S Performing Organization Address [facility]/ZIP Co de Phone Number LABORATORY [address] [address] * (ABNORMAL) CBC (11/03/2023 6:38 AM EDT) WBC 13.25(H) 4.00 - 10.80 K/uL 11/03/2023 6:52 AM EDT LABORATORY [facility] RBC 4.03 4.50 - 5.25 M/uL 11/03/2023 6:52 AM EDT LABORATORY [facility] HGB 11.7(L) 14.0 - 16.8 g/dL 11/03/2023 6:52 AM EDT LABORATORY [facility] HCT 36.2(L) 40.0 - 48.4 % 11/03/2023 6:52 AM EDT LABORATORY [facility] MCV 89.8 82.0 - 99.5 fL 11/03/2023 6:52 AM EDT LABORATORY [facility] MCH 29.0 27.0 - 34.0 pg 11/03/2023 6:52 AM EDT LABORATORY [facility] MCHC 32.3 32.0 - 36.0 g/dL 11/03/2023 6:52 AM EDT LABORATORY [facility] RDW 15.4 11.5 - 15.5 % 11/03/2023 6:52 AM EDT LABORATORY [facility] PLT 231 140 - 400 K/uL 11/03/2023 6:52 AM EDT LABORATORY [facility] MPV 10.5 6.6 - 11.1 fL 11/03/2023 6:52 AM EDT LAB[facility]ATORY [facility] Blood Venous blood specimen / Unknown Venipuncture / Unknown 11/03/2023 6:38 AM EDT 11/03/2023 6:46 AM EDT Sundar Temple PA-C LAB BLOOD ORDERABLE S Performing Organization Address [facility] de Phone Number LABORATORY [address] [address] * (ABNORMAL) PT INR (11/03/2023 6:38 AM EDT) Prothrombin Time 16.5(H) 11.6 - 15.2 seconds 11/03/2023 6:56 AM EDT LABORATORY [facility] INR 1.3(H) 0.8 - 1.2 11/03/2023 6:56 AM EDT LABORATORY [facility] Blood Venous blood specimen / Unknown Venipuncture / Unknown 11/03/2023 6:38 AM EDT 11/03/2023 6:46 AM EDT Narrative LABORATORY [facility] - 11/03/2023 6:56 AM EDT Warfarin Therapy INR: 2.0-3.0 conventional anticoagulation INR: 2.5-3.5 high intensity anticoagulation Sundar Temple PA-C LAB BLOOD ORDERABLE S Performing Organization Address [facility] de Phone Number LABORATORY [address] [phone] * (ABNORMAL) BASIC METABOLIC PANEL (11/03/2023 6:38 AM EDT) BUN 19 6 - 20 mg/dL 11/03/2023 7:06 AM EDT LABORATORY [facility] Creatinine 1.1 0.6 - 1.2 mg/dL 11/03/2023 7:06 AM EDT LABORATORY [facility] Estimated Glomerular Filtration Rate 69 >=60 mL/min 11/03/2023 7:06 AM EDT LABORATORY [facility] Comment:eGFR is calculated b ased on the CKD-EPI 2020 equation Sodium 133(L) 135 - 146 mmol/L 11/03/2023 7:06 AM EDT LABORATORY [facility] Potassium 3.6 3.5 - 5.1 mmol/L 11/03/2023 7:06 AM EDT LABORATORY [facility] Chloride 93(L) 98 - 107 mmol/L 11/03/2023 7:06 AM EDT LABORATORY SH CO2 29 22 - 32 mmol/L 11/03/2023 7:06 AM EDT LABORATORY SH Anion Gap 11 7 - 15 mmol/L 11/03/2023 7:06 AM EDT LAB[facility]ORY [facility] Glucose 167(H) 70 - 120 mg/dL 11/03/2023 7:06 AM EDT LAB[facility]ORY [facility] Calcium 8.5 8.4 - 10.2 mg/dL 11/03/2023 7:06 AM EDT LABORATORY [facility] Blood Venous blood specimen / Unknown Venipuncture / Unknown 11/03/2023 6:38 AM EDT 11/03/2023 6:46 AM EDT Sundar Temple PA-C LAB BLOOD ORDERABLE S Performing Organization Address City/[facility]/ZIP Co de Phone Number LABORATORY [address] [phone] * LACTATE (11/03/2023 1:13 AM EDT) Lactate 1.4 0.4 - 2.0 mmol/L 11/03/2023 1:40 AM EDT LABORATORY [facility] Blood Venous blood specimen / Unknown Venipuncture / Unknown 11/03/2023 1:13 AM EDT 11/03/2023 1:23 AM EDT Sundar Temple PA-C LAB BLOOD ORDERABLE S LABORATORY [facility] [address] [place] [address] * SARS-COV-2 (COVID-19), NAAT (11/03/2023 12:36 AM EDT) SARS-CoV-2 (COVID-19) Result Negative Negative 11/03/2023 2:03 AM EDT LABORATORY [facility] Comment: 2019 Novel Coronavirus not detected. This express test was developed and its performance characteristics determined by [facility]. It has not been cleared or approved [...] was developed and performance characteristics determined by [facility]. The validation of alternate specimen types has not been cleared or approved by the U.S. Food and Drug Administration (FDA). It has been determined that such clearance is not necessary. Upper Respiratory Mid-turbinate nasal swab / Unknown Non-blood Collection / Unknown 11/03/2023 12:36 AM EDT 11/03/2023 1:23 AM EDT Wayne Vergara DO LAB MICRO - GENERA L ORDERABLES LAB[facility]ATORY [place] [id number] [place] [address] * XR KNEE 1-2 VIEWS (11/02/2023 11:27 PM EDT) Anatomical Region Laterality Modality Knee, Lower Extremity Computed R adiography 11/02/2023 11:1 8 PM EDT Impressions 11/03/2023 12:07 AM EDT IMPRESSION: Mild prepatellar soft tissue swelling. No acute fractures. THIS DOCUMENT HAS BEEN ELECTRONICALLY SIGNED BY MD Jayant AMADOR 11/03/2023 12:07 AM EDT PROCEDURE INFORMATION: Exam: XR Left Knee Exam [...] prepatellar soft tissue swelling. No joint effusion. Procedure Note Shelbie Riley MD - 11/03/2023 PROCEDURE INFORMATION: Exam: XR Left Knee Exam date and time: 11/02/2023 11:18 PM Age: 73 years old Clinical indication: Patient HX: Left knee pain, swelling, anteriorredness. questionable gout. no injury. ; Additional info: Knee pain TECHNIQUE: Imaging protocol: Radiologic exam of the left knee. Views: 1 or 2 views. COMPARISON: DX XR KNEE 4 OR MORE VIEWS 01/10/2023 9:58 AM FINDINGS: Bones/joints: No acute fracture or dislocation in the left knee. Mildnarrowing of the tibiofemoral and patellofemoral joint spaces with minimal spurring. Soft tissues: Mild prepatellar soft tissue swelling. No joint effusion. IMPRESSION IMPRESSION: Mild prepatellar soft tissue swelling. No acute fractures. THIS DOCUMENT HAS BEEN ELECTRONICALLY SIGNED BY SHELBIE RILEY MD Wayne Vergara DO RADIOLOGY (RAD GEN ERAL) * (ABNORMAL) URINALYSIS, REFLEX TO CULTURE (11/02/2023 11:10 PM EDT) Color, Urine Yellow Light Yellow, Yellow, Dark Yellow 11/02/2023 11:21 PM EDT LABORATORY [facility] Clarity, Urine Clear Clear 11/02/2023 11:21 PM EDT LABORATORY [facility] Glucose, Urine Negative Negative mg/dL 11/02/2023 11:21 PM EDT LABORATORY [facility] Bilirubin, Urine Negative Negative 11/02/2023 11:21 PM EDT LABORATORY [facility] Ketone, Urine Negative Negative mg/dL 11/02/2023 11:21 PM EDT LABORATORY [facility] Specific [place], Urine 1.013 1.003 - 1.030 11/02/2023 11:21 PM EDT LAB[facility]ORY [facility] Blood, Urine Negative Negative 11/02/2023 11:21 PM EDT [facility] [facility] pH, Urine 6.0 5.0 - 7.5 Units 11/02/2023 11:21 PM EDT [facility] Protein, Urine Negative Negative mg/dL 11/02/2023 11:21 PM EDT [facility] Urobilinogen, Urine 1.0 0.2, 1.0 mg/dL 11/02/2023 11:21 PM EDT [facility] Nitrite, Urine Negative Negative 11/02/2023 11:21 PM EDT LAB[facility]ATORY [facility] Esterase, Urine Negative Negative 11/02/2023 11:21 PM EDT [facility] RBC, Urine 0-2 0 - 2 /HPF 11/02/2023 11:21 PM EDT [facility] WBC, Urine 0-2 0 - 2 /HPF 11/02/2023 11:21 PM EDT [facility] Bacteria, Urine 0-25 0 - 25 /HPF 11/02/2023 11:21 PM EDT [facility] Hyaline, Cast, Urine 1-4(A) None /LPF 11/02/2023 11:21 PM EDT [facility] Culture, Urine 11/02/2023 11:21 PM EDT [facility] Comment:Culture not indicate d by urinalysis results Urine Urine specimen obtained by clean catch procedure / Unknown Non-blood Collection / Unknown 11/02/2023 11:10 PM EDT 11/02/2023 11:14 PM EDT Wayne Vergara DO LAB URINE ORDERABL ES LABORATORY [address] [id number] * URINALYSIS, REFLEX TO CULTURE (CUP ONLY) (11/02/2023 11:10 PM EDT) Pathologist [facility] Urinalysis, Reflex to Culture Specimen specimen collected and received 11/02/2023 11:15 PM EDT [facility] Urine Urine specimen obtained by clean catch procedure / Unknown Non-blood Collection / Unknown 11/02/2023 11:10 PM EDT 11/02/2023 11:14 PM EDT Wayne Vergara DO LAB URINE ORDERABL ES Performing Organization Address [facility]/ZIP Co de Phone Number LABORATORY [address] [phone] * DIGOXIN LEVEL (11/02/2023 10:53 PM EDT) Pathologist [facility] Digoxin Level 0.9 0.5 - 1.1 ng/mL 11/03/2023 1:48 PM EDT [facility] [place] Venous blood specimen / Unknown Venipuncture / Unknown 11/02/2023 10:53 PM EDT 11/02/2023 10:59 PM EDT Narrative [facility] [place] 11/03/2023 1:48 PM EDT Recommended trough therapeutic ranges: 0.5 to 0.8 for heart failure 0.5 to 1.1 for atrial fibrillation Sundar Temple PA-C LAB BLOOD ORDERABLE S [facility] [address] [place] [address] * (ABNORMAL) ERYTHROCYTE SEDIMENTATION RATE (ESR) (11/02/2023 10:53 PM EDT) Pathologist [facility] ESR 65(H) <20 mm/hour 11/03/2023 2:15 PM EDT [facility] Blood Venous blood specimen / Unknown Venipuncture / Unknown 11/02/2023 10:53 PM EDT 11/02/2023 10:59 PM EDT Sundar Temple PA-C LAB BLOOD ORDERABLE S [facility] [address] [place] [address] * CK (11/02/2023 10:53 PM EDT) CK 49 39 - 308 U/L 11/03/2023 1:36 AM EDT [facility] Blood Venous blood specimen / Unknown Venipuncture / Unknown 11/02/2023 10:53 PM EDT 11/02/2023 10:59 PM EDT Sundar Temple PA-C LAB BLOOD ORDERABLE S Performing Organization Address City/[facility]/ZIP Co de Phone Number LABORATORY [address] [phone] * (ABNORMAL) CRP (INFLAMMATORY MARKER) (11/02/2023 10:53 PM EDT) Pathologist [facility] CRP (Inflammatory Marker) 210(H) <=5 mg/L 11/03/2023 1:36 AM EDT [facility] Blood Venous blood specimen / Unknown Venipuncture / Unknown 11/02/2023 10:53 PM EDT 11/02/2023 10:59 PM EDT Sundar Temple PA-C LAB BLOOD ORDERABLE S Performing Organization Address City/[facility]/ZIP Co de Phone Number LABORATORY [address] [phone] * PHOSPHORUS (11/02/2023 10:53 PM EDT) Phosphorus 2.9 2.5 - 4.8 mg/dL 11/03/2023 1:36 AM EDT [facility] Blood Venous blood specimen / Unknown Venipuncture / Unknown 11/02/2023 10:53 PM EDT 11/02/2023 10:59 PM EDT Sundar Temple PA-C LAB BLOOD ORDERABLE S LABORATORY [address] [phone] * MAGNESIUM (11/02/2023 10:53 PM EDT) [facility] Magnesium 2.1 1.5 - 2.6 mg/dL 11/03/2023 1:36 AM EDT [facility] Blood Venous blood specimen / Unknown Venipuncture / Unknown 11/02/2023 10:53 PM EDT 11/02/2023 10:59 PM EDT Sundar Temple PA-C LAB BLOOD ORDERABLE S Performing Organization Address [facility]/ZIP Co de Phone Number LABORATORY [address] [phone] * (ABNORMAL) DIFFERENTIAL, AUTOMATED (11/02/2023 10:53 PM EDT) [facility] WBC 16.02(H) 4.00 - 10.80 K/uL 11/02/2023 11:04 PM EDT [facility] Neutrophils % 85.9(H) 40.0 - 75.0 % 11/02/2023 11:04 PM EDT [facility] Lymphocytes % 4.6(L) 18.0 - 42.0 % 11/02/2023 11:04 PM EDT [facility] Monocytes % 9.4 1.0 - 11.0 % 11/02/2023 11:04 PM EDT [facility] Eosinophils % 0.0 0.0 - 6.0 % 11/02/2023 11:04 PM EDT LAB[facility]ATORY [facility] Basophils % 0.1 0.0 - 2.0 % 11/02/2023 11:04 PM EDT [facility] Absolute Neutrophils 13.75(H) 1.80 - 7.70 K/uL 11/02/2023 11:04 PM EDT [facility] Absolute Lymphocytes 0.74(L) 1.00 - 4.80 K/ul 11/02/2023 11:04 PM EDT [facility] Absolute Monocytes 1.51(H) 0.00 - 1.10 K/uL 11/02/2023 11:04 PM EDT [facility] Absolute Eosinophils 0.00 0.00 - 0.70 K/uL 11/02/2023 11:04 PM EDT [facility] Absolute Basophils 0.02 0.00 - 0.20 K/uL 11/02/2023 11:04 PM EDT [facility] Blood Venous blood specimen / Unknown Venipuncture / Unknown 11/02/2023 10:53 PM EDT 11/02/2023 10:59 PM EDT Wayne Vergara DO LAB BLOOD ORDERABL ES LABORATORY [place] [id number] [place] [address] * (ABNORMAL) CBC (11/02/2023 10:53 PM EDT) WBC 16.02(H) 4.00 - 10.80 K/uL 11/02/2023 11:04 PM EDT [facility] RBC 4.47 4.50 - 5.25 M/uL 11/02/2023 11:04 PM EDT [facility] HGB 12.9(L) 14.0 - 16.8 g/dL 11/02/2023 11:04 PM EDT [facility] HCT 39.8(L) 40.0 - 48.4 % 11/02/2023 11:04 PM EDT [facility] MCV 89.0 82.0 - 99.5 fL 11/02/2023 11:04 PM EDT [facility] MCH 28.9 27.0 - 34.0 pg 11/02/2023 11:04 PM EDT [facility] MCHC 32.4 32.0 - 36.0 g/dL 11/02/2023 11:04 PM EDT [facility] RDW 15.3 11.5 - 15.5 % 11/02/2023 11:04 PM EDT [facility] PLT 261 140 - 400 K/uL 11/02/2023 11:04 PM EDT [facility] MPV 11.3 6.6 - 11.1 fL 11/02/2023 11:04 PM EDT [facility] Blood Venous blood specimen / Unknown Venipuncture / Unknown 11/02/2023 10:53 PM EDT 11/02/2023 10:59 PM EDT Wayne Vergara DO LAB BLOOD ORDERABL ES [facility] [address] [place] [address] * (ABNORMAL) URIC ACID (11/02/2023 10:53 PM EDT) Uric Acid 11.4(H) 3.4 - 7.0 mg/dL 11/03/2023 1:48 PM EDT [facility] [place] Venous blood specimen / Unknown Venipuncture / Unknown 11/02/2023 10:53 PM EDT 11/02/2023 10:59 PM EDT Wayne Vergara DO LAB BLOOD ORDERABL ES Performing Organization Address City/[facility]/ZIP Co de Phone Number [facility] [address] [place] [address] * (ABNORMAL) BASIC METABOLIC PANEL (11/02/2023 10:53 PM EDT) BUN 18 6 - 20 mg/dL 11/02/2023 11:26 PM EDT [facility] Creatinine 1.2 0.6 - 1.2 mg/dL 11/02/2023 11:26 PM EDT [facility] Estimated Glomerular Filtration Rate 63 >=60 mL/min 11/02/2023 11:26 PM EDT [facility] Comment:eGFR is calculated b ased on the CKD-EPI 2020 equation Sodium 130(L) 135 - 146 mmol/L 11/02/2023 11:26 PM EDT [facility] Potassium 3.3(L) 3.5 - 5.1 mmol/L 11/02/2023 11:26 PM EDT [facility] Chloride 87(L) 98 - 107 mmol/L 11/02/2023 11:26 PM EDT [facility] CO2 27 22 - 32 mmol/L 11/02/2023 11:26 PM EDT [facility] Anion Gap 16(H) 7 - 15 mmol/L 11/02/2023 11:26 PM EDT [facility] Glucose 170(H) 70 - 120 mg/dL 11/02/2023 11:26 PM EDT [facility] Calcium 8.9 8.4 - 10.2 mg/dL 11/02/2023 11:26 PM EDT [facility] Blood Venous blood specimen / Unknown Venipuncture / Unknown 11/02/2023 10:53 PM EDT 11/02/2023 10:59 PM EDT Wayne Vergara DO LAB BLOOD ORDERABL ES LABORATORY [place] [id number] [place] [address] * (ABNORMAL) PROCALCITONIN (11/02/2023 10:52 PM EDT) Procalcitonin 0.20(H) <0.10 ng/mL 11/03/2023 2:12 PM EDT [facility] [place] Venous blood specimen / Unknown 11/02/2023 10:52 PM EDT 11/02/2023 11:01 PM EDT Narrative [facility] [place] 11/03/2023 2:12 PM EDT Less than 0.5 ng/mL: Low risk for progression to sepsis. Review patients condition for localized infections. 0.5 to 2.0 ng/mL: Intermediate risk for progresion to sepsis. Review underlying conditions. Recommend repeat PCT after 6 hours has elapsed. Greater than 2.0 ng/mL: high risk for progression to sepsis unless other causes are known. Sundar Temple PA-C LAB BLOOD ORDERABLE S [facility] [address] [place] [address] * EXTRA SYRINGE (11/02/2023 10:52 PM EDT) Blood Blood specimen / Unknown 11/02/2023 10:52 PM EDT 11/02/2023 11:31 PM EDT Wayne Vergara DO LAB BLOOD ORDERABL ES Performing Organization Address [facility] de Phone Number [facility]ATORY [facility] [address] [place] [phone] * EXTRA GREEN TOP WITH GEL (11/02/2023 10:52 PM EDT) Blood Venous blood specimen / Unknown 11/02/2023 10:52 PM EDT 11/02/2023 11:01 PM EDT Wayne Vergara DO LAB BLOOD ORDERABL ES Performing Organization Address [facility] de Phone Number LABORATORY [address] [phone] * EXTRA LIGHT BLUE TOP (11/02/2023 10:52 PM EDT) Blood Venous blood specimen / Unknown 11/02/2023 10:52 PM EDT 11/02/2023 11:01 PM EDT Wayne Vergara DO LAB BLOOD ORDERABL ES Performing Organization Address [facility] Phone Number LABORATORY [address] [phone] documented in this encounter Visit Diagnoses Diagnosis Ambulatory dysfunction- Primary Gout attack Acute gouty arthropathy Ambulatory dysfunction Chest pain Chest pain, unspecified Electrolyte abnormality Electrolyte and fluid disorders not elsewhere classified Acute gout of right hand, unspecified cause Gout attack Acute gouty arthropathy Leukocytosis Leukocytosis, unspecified Hypokalemia Hypopotassemia Inflammation of sacroiliac joint (HCC) Sacroiliitis, not elsewhere classified documented in this encounter Administered Medications Inactive Administered Medications - up to 3 most recent administrations Medication Order MAR Action Action Date Dose Rate Site Acetaminophen (Tylenol) tab 650 mg 650 mg, Oral, Q6H PRN Pain, Mild, Fever >38C(100.5F), Headache, Starting on 11/03/23 at 0052, Until 11/03/23 at 2134, Maximum of 4 grams (4000 mg) per day. Given 11/03/2023 2:14 PM EDT 650 mg Albuterol Sulfate (Proventil) (2.5 MG/3ML) 0.083% inhalation solution 2.5 mg 2.5 mg, Nebulizer, Q4H PRN Dyspnea, Starting on Sun11/03/23 at 0208, Until Sun11/03/23 at 2133 Apixaban (Eliquis) tab 5 mg 5 mg, Oral, BID (.AM/PM), First dose on Sun11/03/23 at 0900, Until Discontinued Given 11/03/2023 8:35 AM EDT 5 mg clopidogrel (pLAVix) tab 75 mg 75 mg, Oral, Daily(AM), First dose on Sun11/03/23 at 0900, Until Discontinued Given 11/03/2023 8:35 AM EDT 75 mg dexamethasone sod phosphate PF (Decadron) 10 MG/ML inj 10 mg 10 mg, IV Push, ONCE, On Sun11/02/23 at 2330, For 1 dose, PROTECT FROM LIGHT Given 11/02/2023 11:04 PM EDT 10 mg Digoxin (Lanoxin) tab 125 mcg 125 mcg, Oral, Daily(AM), First dose on Sun11/03/23 at 0900, Until Discontinued, Hold For HR Less than 60 and notify service if dose is held Given 11/03/2023 8:35 AM EDT 125 mcg fluticasone furoate-vilanterol (BREO ellipta) 200-25 MCG/ACT inhaler 1 Puff 1 Puff, Inhalation, RESPDAILY, First dose on Sun11/03/23 at 0800, Until Discontinued Given 11/03/2023 9:20 AM EDT 1 Puff Ibuprofen (Motrin) tab 400 mg 400 mg, Oral, Q8H PRN Pain, Severe, Pain, Moderate, Starting on Sun11/03/23 at 0114, Until Sun11/03/23 at 2133, For 2 days Given 11/03/2023 10:59 AM EDT 400 mg ketorolac (Toradol) 15 MG/ML inj 15 mg 15 mg, IV Push, ONCE, On Sun11/02/23 at 2330, For 1 dose Given 11/02/2023 11:05 PM EDT 15 mg melatonin tab 3 mg 3 mg, Oral, HS PRN Insomnia, Starting on Sun11/03/23 at 0053, Until Sun11/03/23 at 2133 metoprolol succinate XL (toPROL XL) tab 100 mg 100 mg, Oral, Daily(AM), First dose on Sun11/03/23 at 0900, Until Discontinued, Hold for HR less than 60 or SBP below 100 and notify service if dose is held This med should NOT be Crushed or Chewed. Given 11/03/2023 8:52 AM EDT 100 mg Morphine Sulfate (PF) inj 4 mg 4 mg, Intravenous, ONCE, On Sun11/02/23 at 2330, For 1 dose Given 11/02/2023 11:04 PM EDT 4 mg Morphine Sulfate (PF) inj 4 mg 4 mg, Intravenous, ONCE, On Sun11/03/23 at 0030, For 1 dose Given 11/03/2023 12:01 AM EDT 4 mg NSS 0.9% 1,000 mL bolus infusion Peripheral IV, at 1,000 mL/hr Administer over 60 Minutes, Administer entire volume within 60 minutes or less., ONCE, 1 dose, On Sun11/02/23 at 2330 New Bag 11/02/2023 11:02 PM EDT 1,000 mL 1000 mL/hr NSS infusion Intravenous, at 75 mL/hr, CONTINUOUS, Starting on Sun11/03/23 at 0130, Until Sun11/03/23 at 0455 New Bag 11/03/2023 1:53 AM EDT 75 mL/hr potassium chloride ER tab 20 mEq 20 mEq, Oral, BID (.AM/PM), First dose on Sun11/03/23 at 0900, Until Discontinued Given 11/03/2023 8:35 AM EDT 20 mEq potassium chloride ER tab 40 mEq 40 mEq, Oral, ONCE, On Sun11/03/23 at 0115, For 1 dose, This med should NOT be Crushed or Chewed Given 11/03/2023 12:39 AM EDT 40 mEq predniSONE (Deltasone) tab 10 mg 10 mg, Oral, Daily(AM), First dose on Sun11/11/23 at 0900, Last dose on Sun11/12/23 at 0900, For 2 days predniSONE (Deltasone) tab 20 mg 20 mg, Oral, Daily(AM), First dose on Sun11/09/23 at 0900, Last dose on Sun11/10/23 at 0900, For 2 days predniSONE (Deltasone) tab 30 mg 30 mg, Oral, Daily(AM), First dose on Sun11/07/23 at 0900, Last dose on Sun11/08/23 at 0900, For 2 days predniSONE (Deltasone) tab 40 mg 40 mg, Oral, Daily(AM), First dose on Sun11/03/23 at 0900, Last dose on Sun11/06/23 at 0900, For 4 days Given 11/03/2023 8:35 AM EDT 40 mg predniSONE (Deltasone) tab 5 mg 5 mg, Oral, Daily(AM), First dose on Sun11/13/23 at 0900, Last dose on Sun11/14/23 at 0900, For 2 days sodium chloride 0.9 % flush peripheral maria fernanda 3 mL 3 mL, IV Push, QSHIFT, First dose on Sun11/03/23 at 0130, Until Discontinued, Do not flush if lock, PICC, or central line not in place; IV infusing or unable to flush. Given 11/03/2023 8:43 AM EDT 3 mL Given 11/03/2023 1:30 AM EDT 3 mL sodium chloride 0.9 % flush/inj 3 mL 3 mL, IV Push, PRN Other, Line Patency, Starting on Sun11/03/23 at 0049, Until Sun11/03/23 at 2134, Do not flush if lock, PICC, or central line not in place, IV infusing or unable to flush Torsemide (Demadex) tab 100 mg 100 mg, Oral, Daily(AM), First dose on Sun11/03/23 at 0900, Until Discontinued Given 11/03/2023 8:51 AM EDT 100 mg Torsemide (Demadex) tab 100 mg 100 mg, Oral, [id number], First dose (after last modification) on Sun11/05/23 at 2100, Until Discontinued trimethobenzamide (Tigan) inj 100 mg 100 mg, Intramuscular, Q6H PRN Nausea, Vomiting, Starting on Sun11/03/23 at 0053, Until 11/03/23 at 2134 documented in this encounter Active and Recently Administered Medications Times are shown in EDT. Scheduled Medication Order 11/01/2023 11/02/2023 11/03/2023 Apixaban (Eliquis) tab 5 mg 5 mg, Oral, BID (.AM/PM), First dose on Sun11/03/23 at 0900, Until Discontinued 08 (Given - Provid er: Matt Bloom RN) clopidogrel (pLAVix) tab 75 mg 75 mg, Oral, Daily(AM), First dose on Sun11/03/23 at 0900, Until Discontinued 834 (Given - Provid er: Matt Bloom RN) dexamethasone sod phosphate PF (Decadron) 10 MG/ML inj 10 mg (COMPLETED) 10 mg, IV Push, ONCE, On Sun11/02/23 at 2330, For 1 dose, PROTECT FROM LIGHT 2304 (Given - Provider: Elayne Barnes RN) Digoxin (Lanoxin) tab 125 mcg 125 mcg, Oral, Daily(AM), First dose on Sun11/03/23 at 0900, Until Discontinued, Hold For HR Less than 60 and notify service if dose is held 08 (Given - Provid er: Matt Bloom RN) fluticasone furoate-vilanterol (BREO ellipta) 200-25 MCG/ACT inhaler 1 Puff 1 Puff, Inhalation, RESPDAILY, First dose on Sun11/03/23 at 0800, Until Discontinued 919 (Given - Provid er: Leeann Rai, CHRISTINA) ketorolac (Toradol) 15 MG/ML inj 15 mg (COMPLETED) 15 mg, IV Push, ONCE, On Sun11/02/23 at 2330, For 1 dose 2305 (Given - Provider: Elayne Barnes RN) losartan (Cozaar) tab 25 mg 25 mg, Oral, Daily(AM), First dose on Sun11/03/23 at 0900, Until Discontinued 899 (Not Given - Provider: Matt Bloom RN - Reason: Other- Please add reason in Comments - Comment: holding per Dr. Schofield) metOLazone (Zaroxolyn) tab 2.5 mg 2.5 mg, Oral, QWEEK, First dose on Sun11/05/23 at 0900, Until Discontinued metoprolol succinate XL (toPROL XL) tab 100 mg 100 mg, Oral, Daily(AM), First dose on Sun11/03/23 at 0900, Until Discontinued, Hold for HR less than 60 or SBP below 100 and notify service if dose is held This med should NOT be Crushed or Chewed. 0852 (Given - Provid er: Matt Bloom RN) Morphine Sulfate (PF) inj 4 mg (COMPLETED) 4 mg, Intravenous, ONCE, On Sun11/02/23 at 2330, For 1 dose 2304 (Given - Provider: Elayne Barnes RN) Morphine Sulfate (PF) inj 4 mg (COMPLETED) 4 mg, Intravenous, ONCE, On 11/03/23 at 0030, For 1 dose 0001 (Given - Provid er: Cammie Berger RN) NSS 0.9% 1,000 mL bolus infusion (COMPLETED) Peripheral IV, at 1,000 mL/hr Administer over 60 Minutes, Administer entire volume within 60 minutes or less., ONCE, 1 dose, On Sun11/02/23 at 2330 2302 (New Bag - Provider: Elayne Barnes RN) 0032 (Stopped - Provider: Reyes Leon RN) potassium chloride ER tab 20 mEq 20 mEq, Oral, BID (.AM/PM), First dose on Sun11/03/23 at 0900, Until Discontinued 0835 (Given - Provid er: Matt Bloom RN) potassium chloride ER tab 40 mEq (COMPLETED) 40 mEq, Oral, ONCE, On 11/03/23 at 0115, For 1 dose, This med should NOT be Crushed or Chewed 0039 (Given - Provid er: Cammie Berger RN) predniSONE (Deltasone) tab 10 mg(Linked Group 1) 10 mg, Oral, Daily(AM), First dose on Sun11/11/23 at 0900, Last dose on Sun11/12/23 at 0900, For 2 days predniSONE (Deltasone) tab 20 mg(Linked Group 1) 20 mg, Oral, Daily(AM), First dose on Sun11/09/23 at 0900, Last dose on Sun11/10/23 at 0900, For 2 days predniSONE (Deltasone) tab 30 mg(Linked Group 1) 30 mg, Oral, Daily(AM), First dose on Sun11/07/23 at 0900, Last dose on Sun11/08/23 at 0900, For 2 days predniSONE (Deltasone) tab 40 mg(Linked Group 1) 40 mg, Oral, Daily(AM), First dose on Sun11/03/23 at 0900, Last dose on Sun11/06/23 at 0900, For 4 days 0835 (Given - Provid er: Matt Bloom RN) predniSONE (Deltasone) tab 5 mg(Linked Group 1) 5 mg, Oral, Daily(AM), First dose on Sun11/13/23 at 0900, Last dose on Sun11/14/23 at 0900, For 2 days sodium chloride 0.9 % flush peripheral maria fernanda 3 mL 3 mL, IV Push, QSHIFT, First dose on 11/03/23 at 0130, Until Discontinued, Do not flush if lock, PICC, or central line not in place; IV infusing or unable to flush. 0130 (Given - Provid er: Jolanta Tipton LPN)0843 (Given - Provider: Matt Bloom RN)1600 (Not Given - Provider: Matt Bloom RN - Reason: Parameter(s) Not Met - Comment: being dc doesnt have an IV) Spironolactone (Aldactone) tab 25 mg 25 mg, Oral, Daily(AM), First dose on Sun11/03/23 at 0900, Until Discontinued 0835 (Not Given - Provider: Matt Bloom RN - Reason: Other-Notify Provider - Comment: holding per Dr. Schofield) Torsemide (Demadex) tab 100 mg 100 mg, Oral, Daily(AM), First dose on Sun11/03/23 at 0900, Until Discontinued 0851 (Given - Provid er: Matt Bloom RN) Torsemide (Demadex) tab 100 mg 100 mg, Oral, [id number], First dose (after last modification) on Sun11/05/23 at 2100, Until Discontinued Continuous Medication Order 11/01/2023 11/02/2023 11/03/2023 NSS infusion (CANCELED) Intravenous, at 75 mL/hr, CONTINUOUS, Starting on Sun11/03/23 at 0130, Until Sun11/03/23 at 0455 0153 (New Bag - Prov ider: Jolanta Tipton LPN)0455 (Stopped - Provider: Jolanta Tipton LPN) PRN Medication Order 11/01/2023 11/02/2023 11/03/2023 Acetaminophen (Tylenol) tab 650 mg 650 mg, Oral, Q6H PRN Pain, Mild, Fever >38C(100.5F), Headache, Starting on 11/03/23 at 0052, Until 11/03/23 at 2133, Maximum of 4 grams (4000 mg) per day. 1414 (Given - Provid er: Matt Bloom RN) Albuterol Sulfate (Proventil) (2.5 MG/3ML) 0.083% inhalation solution 2.5 mg 2.5 mg, Nebulizer, Q4H PRN Dyspnea, Starting on 11/03/23 at 0208, Until 11/03/23 at 2133 Ibuprofen (Motrin) tab 400 mg 400 mg, Oral, Q8H PRN Pain, Severe, Pain, Moderate, Starting on 11/03/23 at 0114, Until 11/03/23 at 2133, For 2 days 1059 (Given - Provid er: Matt Bloom RN) melatonin tab 3 mg 3 mg, Oral, HS PRN Insomnia, Starting on 11/03/23 at 005, Until 11/03/23 at 2133 oxyCODONE-acetaminophen 5-325 mg per tab (Percocet) 1 Tablet 1 Tablet, Oral, Q6H PRN Pain, Moderate, Pain, Severe, Starting on 11/03/23 at 0440, Until 11/03/23 at 2133 sodium chloride 0.9 % flush/inj 3 mL 3 mL, IV Push, PRN Other, Line Patency, Starting on 11/03/23 at 0049, Until 11/03/23 at 2133, Do not flush if lock, PICC, or central line not in place, IV infusing or unable to flush trimethobenzamide (Tigan) inj 100 mg 100 mg, Intramuscular, Q6H PRN Nausea, Vomiting, Starting on 11/03/23 at 0053, Until 11/03/23 at 2133 Linked Groups Order Group 1: predniSONE (Deltasone) tab 40 mgJump to med 40 mg, Oral, Daily(AM), First dose on Sun11/03/23 at 0900, Last dose on Sun11/06/23 at 0900, For 4 days Followed by predniSONE (Deltasone) tab 30 mgJump to med 30 mg, Oral, Daily(AM), First dose on Sun11/07/23 at 0900, Last dose on Sun11/08/23 at 0900, For 2 days Followed by predniSONE (Deltasone) tab 20 mgJump to med 20 mg, Oral, Daily(AM), First dose on Sun11/09/23 at 0900, Last dose on Sun11/10/23 at 0900, For 2 days Followed by predniSONE (Deltasone) tab 10 mgJump to med 10 mg, Oral, Daily(AM), First dose on 11/11/23 at 0900, Last dose on Sun11/12/23 at 0900, For 2 days Followed by predniSONE (Deltasone) tab 5 mgJump to med 5 mg, Oral, Daily(AM), First dose on Sun11/13/23 at 0900, Last dose on Sun11/14/23 at 0900, For 2 days documented in this encounter Advance Directives Latest Code Status on File Code Status Date Activated Date Inactivated Comments Full Code 11/03/2023 12:54 AM 11/03/2023 9:39 PM This order reflects the patients wishes and were consensually agreed upon. Question Answer Comments Discussion of Advance Directives occurred with: Patient Does the patient have a Living Will? No Does the patient have Health Care Power of Office Machinery Or Equipment Installer? No Code Status History Code Status Date [...] the patient have Health Care Power of Office Machinery Or Equipment Installer? No Full Code 02/17/2019 12:06 PM 02/18/2019 1:09 PM This order reflects the patients wishes and were consensually agreed upon. Question Answer Comments Discussion of Advance Directives occurred with: Not Discussed Does the patient have a Living Will? No Does the patient have Health Care Power of Office Machinery Or Equipment Installer? 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
--- OUTSIDE RECORDS SUMMARY | 2023-12-11 18:47 | External Medical Summary | Summary of Care ---
Author Name Unknown Organization [facility] Address [address] [place] [address] Phone [phone] Care Team Providers Care Shoe Fitter Name Role Phone Buster Jessica MD Primary Care [facility] Reason for Referral * (Within 10 days (routine)) - Authorized Specialty Diagnoses / Procedures Referred By Contac t Referred To Contact Radiology Diagnoses History of tobacco abuse Procedures LUNG CANCER SCREENING PROGRAM REFERRAL Jing Riley CRNP [address] [place] [address] Referral ID Status Reason Start Date Expiration Date V isits Requested Visits Authorized [id number] Authorized 10/28/2024 [id number] Encounter Details Date Type Department Care Team (Late st Contact Info) Description 11/06/2023 Orders Only STAIR LUNG NODULE [address], [place] [id number] Jing Riley CRNP [address] [place] [address] History of tobacco abuse* Allergies Active Allergy Reactions Criticality Noted Date [...] systolic, due to CAD ([facility]) Take 1 tablet by mouth every [...] PAD (peripheral artery disease) ([facility]),Coronary artery disease involving [place] coronary artery of [place] heart without angina pectoris TAKE ONE TABLET BY MOUTH ONCE DAILY 90 Tablet 3 03/13/2023 Active Famotidine 20 MG Oral Tablet (Pepcid) TAKE 1 TABLET BY MOUTH TWICE DAILY (MORNING AND AT BEDTIME) 180 Tablet 3 04/30/2023 Active Spironolactone 25 MG Oral Tablet (Aldactone)Indicatio ns:Coronary artery disease involving [place] coronary artery of [place] heart without angina pectoris,Heart failure, systolic, due to CAD ([facility]),Chronic ischemic heart disease,HTN, goal below 140/90 TAKE ONE TABLET BY MOUTH ONCE DAILY 90 Tablet 3 05/14/2023 Active Losartan Potassium 25 MG Oral Tablet (Cozaar)Indications: PAD (peripheral artery disease) ([facility]),Coronary artery disease involving [place] coronary artery of [place] heart without angina pectoris TAKE ONE TABLET [...] disease,Tobacco use disorder,Coronary artery disease involving [place] coronary artery of [place] heart without angina pectoris Inject 140 mg [...] suspected opioid overdose. Seek immediate medical attention. [email or web address] 1 Each 3 09/15/2023 Active Additional Information [...] by GOLD 2017 classification ([facility]) Inhale 1 Puff by mouth in the morning and 1 Puff before bedtime. 180 Each 12 10/29/2023 Active Albuterol Sulfate (2.5 MG/3ML) 0.083% Inhalation Nebulization Solution (Proventil)Indicatio ns:COPD, group D, by GOLD 2017 classification ([facility]) Inhale 1 Vial via nebulizer every [...] 09/22/2021 Atherosclerotic heart diseas e of [place] coronary artery with other forms of angina [...] untreated, BMI 43.71 kg/m, NECK: 21 inches, [place] 01/27, sent for bipap titration study 01/11/11 [...] 10/12/2023 Coronary artery disease invo lving [place] coronary artery of [place] heart without angina pectoris 07/06/2020 10/12/2023 Chronic systolic heart failure 07/06/2020 10/12/2023 Heart failure, systolic, due to CAD 06/04/2019 10/12/2023 Depression with anxiety 01/10/2018 0208/2021 Morbid (severe) obesity due to excess calories 05/17/2017 03/14/2023 Sacroiliitis, not elsewhere classified 05/17/2017 01/10/2018 COPD, severity to be determined 08/18/2015 01/15/2019 Overview: Per COPD GOLD Classification Encounter for surveillance of abnormal nevi 04/06/2015 05/17/2017 Osteoarthritis of knee 09/23/201305/17 Claudication 05/13/2013 10/12/2023 [employer] Other*[id number] 04/23/2012 09/12/2016 Overview: Study Title: Genomic Markers for Patients with Cardiovascular Disease Project # [id number] Civil Engineering Teacher: Comfort Aviles MD [phone] Impotence of organic origin 02/16/2011 01/10/2018 Shortness [...] do you have serious difficulty hearing? Yes-very [place] 11/03/2023 Are you blind or do you [...] Description 11/14/2023 9:10 AM EDT Office Visit [address] [phone] Buster Jessica MD [address] [place] [address] 11/21/2023 10:55 AM EDT Hospital Encounter [facility], Operating Room [facility] [address] [place] [address] Freeman Beaulieu, [address] [place] [phone] 11/21/2023 10:55 AM EDT - 11/21/2023 11:20 AM EDT Surgery [facility], Operating Room [facility] [address] [place] [phone] Freeman Beaulieu, DO [address] [place] [phone] INJECTION SACROILIAC JOINT 11/22/2023 10:00 AM EDT Home Visit [facility] [place] [address] [place] [address] Lisa Tenorio RN [address] [place] [address] 01/15/2024 10:40 AM EDT Office Visit [facility] [address] [facility] [place] [phone] Clair Quarles, DO [address] [place] [address] 04/22/2024 9:30 AM EDT Cardiac Studies Cardiology, [facility] [address] [facility] [place] [address] [facility] [address] [facility] [place] [address] 05/19/2024 9:30 AM EDT Appointment Radiology, [place] [address] [place] [address] Scheduled Orders Name Type Priority Associated Diagnoses Orde r Schedule LUNG CANCER SCREENING PROGRAM REFERRAL Medical Imaging Routine History of tobacco abuse Expected: 10/28/2024, Expires: 11/05/2025 Scheduled Procedures Name Priority Associated Diagnoses Date/Ti me INJECTION SACROILIAC JOINT Inflammation of sacroiliac joint (HCC) 11/21/2023 10:55 AM EDT COLONOSCOPY FLEXIBLE PROXIMAL DIAGNOSTIC Recall History of colon polyps Health Maintenance Due Date Last Done Comments *ADVANCE DIRECTIVE NOT ON FILE 05/28/2019 COVID-19 Vaccine ( season) 2023 11/08/2020, 10/08/2020 DISCUSS TOBACCO CESSATION (REFER TO SMARTSET #2218) 06/02/2023 06/02/2022, 07/21/2020 Depression, Most Recent Score [...] 09/10/2008 LUNG CANCER SCREENING - USE SMARTSET 95664 Completed 08/22/2022, 05/22/2022, 02/21/2021, Additional history exists [...] this encounter Medical Devices Implanted Type Area Epic Beacon Analyst Device Identifier Shelf Expiration Date Model / Serial / Lot 32mm X 109mm, Zenith Fenestrated Aaa Endovascular Proximal Body Graft, Two Proximal Internal Stent Implanted:Qty: 1 on 04/15/2018 by Evens Hoyt [place] [facility] [place] Aorta [employer] 03/20/2021 ZFEN-P-2- 32-109-R / / [id number] Stent Graft [id number] - [id number] - [id number] Implanted:Qty: 1 on 04/15/2018 by Evens Hoyt [place] [facility] [place]: Renal Artery GETINGE : JULIANNE 11/30/2020 [id number] / [id number] / [id number] Stent Graft [id number] - [id number] - [id number] Implanted:Qty: 1 on 04/15/2018 by Evens Hoyt [place] [facility] [place]: Renal Artery GETINGE : HELIOQUET 11/30/2020 29145 / [id number] / [id number] 28mm X 76mm Distal, 12mm Ipsilateral Leg, Zenith Fenestrated Aaa Endovascular Distal Bifurcated Body Graft Implanted:Qty: 1 on 04/15/2018 by Evens Hoyt [place] [facility] [place]: Aorta [employer] 03/20/2021 ZFEN-D-12 -28-76-C / / [id number] Graft Iliac Leg Spirlz 67c91zp - [id number] Implanted:Qty: 1 on 04/15/2018 by Evens Hoyt [place] [facility] [place]: Iliac [employer] 09/14/2020 [id number] / / [id number] Graft Iliac Leg Spirlz [id number] - [id number] Implanted:Qty: 1 on 04/15/2018 by Evens Hoyt [place] [facility] [place]: Iliac [employer] 11/09/2020 [id number] / / [id number] Transfixation Pin 6mm 294.950 - [id number] Implanted:Qty: 1 on 11/14/2019 by Mayank Friedman MD at OR [facility] Right: Ankle SYNTHES 294.950 / / Description:transfixation pi n Screw Schanz 5.6xom627ct - [id number] Implanted:Qty: 2 on 11/14/2019 by Mayank Friedman MD at OR [facility] Right: Leg Lower SYNTHES 294.786SH A / / Description:self drilling sh antz screws 5.0mm x 200mm [place]hela Trauma 2.7 Lock Screw 16mm Implanted:Qty: 2 on 11/27/2019 by Donavan Ramirez Jr., [place] [facility] [place]: Ankle ESTHELA : TRAUMA [id number] / / Description:hardware set Esthela Trauma 2.7 Lock Screw 14mm Implanted:Qty: 1 on 11/27/2019 by Donavan Ramirez Jr., [place] [facility] [place]: Ankle ESTHELA : TRAUMA [id number] / / [place] Trauma 3.5 Screw 14mm Implanted:Qty: 1 on 11/27/2019 by Donavan Ramirez Jr., [place] [facility] [place]: Ankle ESTHELA : TRAUMA [id number] / / Description:hardware set Esthela Trauma 3.5 Screw 18mm Implanted:Qty: 1 on 11/27/2019 by Donavan Ramirez Jr., [place] [facility] [place]: Ankle ESTHELA : TRAUMA [id number] / / Description:hardware set Esthela 3.5 Lockscrew 16mm Implanted:Qty: 1 on 11/27/2019 by Donavan Ramirez Jr., [place] [facility] [place]: Ankle [id number] / / Esthela 2.0 Plate Implanted:Qty: 1 on 11/27/2019 by Donavan Ramirez Jr., [place] [facility] [place]: Ankle [id number] / / Esthela 2.0 Lock Screw Implanted:Qty: 2 on 11/27/2019 by Donavan Ramirez Jr., [place] [facility] [place]: Ankle [id number] / / Esthela 2.0 Lock Screw Implanted:Qty: 1 on 11/27/2019 by Donavan Ramirez Jr., [place] [facility] [place]: Ankle [id number] / / [place] 2.0 Lock Screw Implanted:Qty: 1 on 11/27/2019 by Donavan Ramirez Jr., [place] [facility] [place]: Ankle [id number] / / Plate Fib 5h - - [id number] Implanted:Qty: 1 on 11/27/2019 by Donavan Ramirez Jr., [place] [facility] [place]: Ankle ESTHELA : TRAUMA / / Description:hardware set documented as of this encounter Visit Diagnoses Diagnosis History of tobacco abuse- Primary Personal history of tobacco use, presenting hazards to health Inflammation of sacroiliac joint (HCC) Sacroiliitis, not [...] the patient have Health Care Power of Food Production Manager? No Code Status History Code Status [...] the patient have Health Care Power of Food Production Manager? No Full Code 02/17/2019 12:06 PM 02/18/2019 1:09 PM This order reflects the patients wishes and were consensually agreed upon. Question Answer Comments Discussion of Advance Directives occurred with: Not Discussed Does the patient have a Living Will? No Does the patient have Health Care Power of Food Production Manager? No Care Teams Shoe Fitter Relationship Specialty Start Date End Date Buster Jessica MD [address] [place] [address] PCP - General Family Medicine 09/11/22 documented as of this encounter
--- OUTSIDE RECORDS SUMMARY | 2023-12-11 18:47 | External Medical Summary | Summary of Care ---
Author Name Unknown Organization [facility] Address [address] [place] [address] Phone [phone] Care Team Providers Care Prop Maker Name Role Phone Buster Jessica MD Primary Care P rovider Reason for Visit * Reason Onset Date Comments Referral 11/06/2023 Needs a referral for Physical Therapy Encounter Details Date Type Department Care Team (Late st Contact Info) Description 11/06/[address] [phone] Buster Jessica MD [address] [place] [address] Referral (Needs a referral for Physical [...] [facility]),Coronary artery disease involving [place] coronary artery of [place] heart without angina pectoris TAKE ONE TABLET BY MOUTH ONCE DAILY 90 Tablet 3 03/13/2023 Active Famotidine 20 MG Oral Tablet (Pepcid) TAKE 1 TABLET BY MOUTH TWICE DAILY (MORNING AND AT BEDTIME) 180 Tablet 3 04/30/2023 Active Spironolactone 25 MG Oral Tablet (Aldactone)Indicatio ns:Coronary artery disease involving [place] coronary artery of [place] heart without angina pectoris,Heart failure, systolic, due to CAD ([facility]),Chronic ischemic heart disease,HTN, goal below 140/90 TAKE ONE TABLET BY MOUTH ONCE DAILY 90 Tablet 3 05/14/2023 Active Losartan Potassium 25 MG Oral Tablet (Cozaar)Indications: PAD (peripheral artery disease) ([facility]),Coronary artery disease involving [place] coronary artery of [place] heart without angina pectoris TAKE ONE TABLET [...] due to CAD ([facility]),Dyslipidemia, goal LDL below 70,Chronic ischemic heart disease,Tobacco use disorder,Coronary artery disease involving [place] coronary artery of [place] heart without angina pectoris Inject 140 mg [...] suspected opioid overdose. Seek immediate medical attention. [email or web address] 1 Each 3 09/15/2023 Active Additional Information [...] fibrillation) 09/22/2021 Atherosclerotic heart diseas e of [place] coronary artery with other forms of angina [...] untreated, BMI 43.71 kg/m, NECK: 21 inches, [place] 6/24, sent for bipap titration study 01/11/11 [...] 11/22/2020 10/12/2023 Coronary artery disease invo lving [place] coronary artery of [place] heart without angina pectoris 07/06/2020 10/12/2023 Chronic [...] 09/23/201305/17 Claudication 05/13/2013 10/12/2023 [employer] Other*[id number] 04/23/2012 09/12/2016 Overview: Study Title: Genomic Markers for Patients with Cardiovascular Disease Project # [id number] Milk Treater: Comfort Aviles MD [phone] Impotence of organic origin 02/16/2011 01/10/2018 Shortness [...] do you have serious difficulty hearing? Yes-very [place] 11/03/2023 Are you blind or do you [...] encounter Miscellaneous Notes * Telephone Encounter - Angelique Valdovinos LPN [...] any questions you can call Queta at [phone], pt is not under her care, but she will help if you have any questions. documented in this encounter Plan of Treatment Upcoming Encounters Date Type Department Care Team (Latest Contact Info) Description 11/14/2023 9:10 AM EDT Office Visit [address] [phone] Buster Jessica MD [address] [place] [address], [place] [address] 11/21/2023 10:55 AM EDT Hospital Encounter [facility], Operating Room [facility] [address] [place] [phone] Freeman Beauleiu, DO [address] [place] [phone] 11/21/2023 10:55 AM EDT - 11/21/2023 11:20 AM EDT Surgery OR [facility], Operating Room [facility] [address] [place] [phone] Freeman Beaulieu, DO [address] [place] [phone] INJECTION SACROILIAC JOINT 11/22/2023 10:00 AM EDT Home Visit [facility] [address] [place] [address] Lisa Tenorio RN [address] [place] [address] 01/15/2024 10:40 AM EDT Office Visit Sleep Disorders Ctr [facility] [address] [place] [phone] Clair Quarles, DO [address] [place] [address] 04/22/2024 9:30 AM EDT Cardiac Studies Cardiology, [facility] [address] [place] [address] [facility] [address] [place] [address] 05/19/2024 9:30 AM EDT Appointment Radiology, [place] [place] [address] Scheduled Procedures Name Priority Associated Diagnoses Date/Ti me INJECTION SACROILIAC JOINT Inflammation of sacroiliac joint (HCC) 11/21/2023 10:55 AM EDT COLONOSCOPY FLEXIBLE PROXIMAL DIAGNOSTIC Recall History of colon polyps Health Maintenance Due Date Last Done Comments *ADVANCE DIRECTIVE NOT ON FILE 05/28/2019 COVID-19 Vaccine ( season) 2023 11/08/2020, 10/08/2020 DISCUSS TOBACCO CESSATION (REFER TO SMARTSET #4053) 06/02/2023 06/02/2022, 07/21/2020 Depression, Most Recent Score [...] 09/10/2008 LUNG CANCER SCREENING - USE SMARTSET 93162 Completed 08/22/2022, 05/22/2022, 02/21/2021, Additional history exists [...] this encounter Medical Devices Implanted Type Area Vp Public Relations Device Identifier Shelf Expiration Date Model / Serial / Lot 32mm X 109mm, Zenith Fenestrated Aaa Endovascular Proximal Body Graft, Two Proximal Internal Stent Implanted:Qty: 1 on 04/15/2018 [place] H[place] [facility] [place] Aorta [employer] 03/20/2021 ZFEN-P-2- 32-109-R / / [id number] Stent Graft [id number] - [id number] - [id number] Implanted:Qty: 1 on 04/15/2018 by Evens Hoyt [place] [facility] [place]: Renal Artery GETINGE : MAQUET 11/30/2020 69344 / [id number] / [id number] Stent Graft [id number] 13588 - [id number] - [id number] Implanted:Qty: 1 on 04/15/2018 by Evens Hoyt [place] [facility] [place]: Renal Artery GETINGE : MAQUET 11/30/2020 82131 / [id number] / [id number] 28mm X 76mm Distal, 12mm Ipsilateral Leg, Zenith Fenestrated Aaa Endovascular Distal Bifurcated Body Graft Implanted:Qty: 1 on 04/15/2018 by Evens Hoyt [place] [facility] [place]: Aorta [employer] 03/20/2021 ZFEN-D-12 -28-76-C / / [id number] Graft Iliac Leg Spirlz 76l75pz - [id number] Implanted:Qty: 1 on 04/15/2018 by Evens Hoyt [place] [facility] [place]: Iliac [employer] 09/14/2020 [id number] / / [id number] Graft Iliac Leg Spirlz 10e36db - [id number] Implanted:Qty: 1 on 04/15/2018 by Evens Hoyt [place] [facility] [place]: Iliac [employer] 11/09/2020 [id number] / / [id number] Transfixation Pin 6mm 294.950 - [id number] Implanted:Qty: 1 on 11/14/2019 by Mayank Friedman MD at OR [facility] Right: Ankle SYNTHES 294.950 / / Description:transfixation pi n Screw Schanz 5.3rrs748dq - [id number] Implanted:Qty: 2 on 11/14/2019 by Mayank Friedman MD at OR [facility] Right: Leg Lower SYNTHES 294.786SH A / / Description:self drilling sh antz screws 5.0mm x 200mm [place] Trauma 2.7 Lock Screw 16mm Implanted:Qty: 2 on 11/27/2019 by Donavan Ramirez Jr., [place] [facility] [place]: Ankle ESTHELA : TRAUMA [id number] / / Description:hardware set [place] Trauma 2.7 Lock Screw 14mm Implanted:Qty: 1 on 11/27/2019 by Donavan Ramirez Jr., [place] [facility] [place]: Ankle ESTHELA : TRAUMA [id number] / / [place] Trauma 3.5 Screw 14mm Implanted:Qty: 1 on 11/27/2019 by Donavan Ramirez Jr., [place] [facility] [place]: Ankle ESTHELA : TRAUMA [id number] / / Description:hardware set [place] Trauma 3.5 Screw 18mm Implanted:Qty: 1 on 11/27/2019 by Donavan Ramirez Jr., [place] [facility] [place]: Ankle ESTHELA : TRAUMA [id number] / / Description:hardware set [place] 3.5 Lockscrew 16mm Implanted:Qty: 1 on 11/27/2019 by Donavan Ramirez Jr., [place] [facility] [place]: Ankle [id number] / / [place]hela 2.0 Plate Implanted:Qty: 1 on 11/27/2019 by Donavan Ramirez Jr., [place] [facility] [place]: Ankle [id number] / / [place] 2.0 Lock Screw Implanted:Qty: 2 on 11/27/2019 by Donavan Ramirez Jr., [place] [facility] [place]: Ankle [id number] / / [place]hela 2.0 Lock Screw Implanted:Qty: 1 on 11/27/2019 by Donavan Ramirez Jr., [place] [facility] [place]: Ankle [id number] / / [place] 2.0 Lock Screw Implanted:Qty: 1 on 11/27/2019 by Donavan Ramirez Jr., [place] [facility] [place]: Ankle [id number] / / Plate Fib - [id number] Implanted:Qty: 1 on 11/27/2019 by Donavan Ramirez Jr., [place] [facility] [place]: Ankle ESTHELA : TRAUMA / / [...] the patient have Health Care Power of Wealth Management Director? No Code Status History Code Status [...] the patient have Health Care Power of Wealth Management Director? No Full Code 02/17/2019 12:06 PM 02/18/2019 1:09 PM This order reflects the patients wishes and were consensually agreed upon. Question Answer Comments Discussion of Advance Directives occurred with: Not Discussed Does the patient have a Living Will? No Does the patient have Health Care Power of Wealth Management Director? No Care Teams Prop Maker Relationship Specialty Start Date End Date Buster Jessica MD [address] [place] [address] PCP - General Family Medicine 09/11/22 documented as of this encounter
--- OUTSIDE RECORDS SUMMARY | 2023-12-11 18:47 | External Medical Summary | Summary of Care ---
Author Name Unknown Organization [facility] Address [address] [place] [address] Phone [phone] Care Team Providers Care Legal Clerk Name Role Phone Buster Jessica MD [facility] Reason for Visit * Reason Onset Date Comments [facility]: Maintenance 11/05/2023 Encounter Details Date Type Department Care Team (Late st Contact Info) Description 11/05/2023 Telephone [facility], [facility] [address] [place], [place] [id number] [facility], Nurse [facility] [address] [place] [address] [facility]: Maintenance Allergies Active Allergy Reactions Criticality Noted Date Comments Atorvastatin Muscle pain,Unknown 01/18/2015 Medication intolerance, not an allergy Sacubitril-Valsartan Other (Please comment) 09/17/2020 Throat swelled Sacubitril High 07/20/2023 Other Reaction(s): THROAT SWELLING Simvastatin Low 06/23/2022 Other reaction(s): MUSCLE ACHES Valsartan High 07/20/2023 Other Reaction(s): THROAT SWELLING documented as of this encounter (statuses as of 11/05/2023) Medications Medication Sig Dispensed Refills Start Date End Date Status Torsemide 100 MG Oral Tablet (Demadex)Indications :Heart failure, systolic, due to CAD ([facility]) Take 1 tablet by mouth every [...] (pLAVix)Indications: PAD (peripheral artery disease) ([facility]),Coronary artery disease involving cahto coronary artery of cahto heart without angina pectoris TAKE ONE TABLET BY MOUTH ONCE DAILY 90 Tablet 3 03/13/2023 Active Famotidine 20 MG Oral Tablet (Pepcid) TAKE 1 TABLET BY MOUTH TWICE DAILY (MORNING AND AT BEDTIME) 180 Tablet 3 04/30/2023 Active Spironolactone 25 MG Oral Tablet (Aldactone)Indicatio ns:Coronary artery disease involving cahto coronary artery of cahto heart without angina pectoris,Heart failure, systolic, due to CAD ([facility]),Chronic ischemic heart disease,HTN, goal below 140/90 TAKE ONE TABLET BY MOUTH ONCE DAILY 90 Tablet 3 05/14/2023 Active Losartan Potassium 25 MG Oral Tablet (Cozaar)Indications: PAD (peripheral artery disease) ([facility]),Coronary artery disease involving cahto coronary artery of cahto heart without angina pectoris TAKE ONE TABLET [...] failure, systolic, due to CAD ([facility]),Dyslipidemia, goal LDL below 70,Chronic ischemic heart disease,Tobacco use disorder,Coronary artery disease involving cahto coronary artery of cahto heart without angina pectoris Inject 140 mg [...] suspected opioid overdose. Seek immediate medical attention. [email or web address] 1 Each 3 09/15/2023 Active Additional Information [...] D, by GOLD 2017 classification ([facility]) Inhale 1 Puff by mouth in the morning and 1 Puff before bedtime. 180 Each 12 10/29/2023 Active Albuterol Sulfate (2.5 MG/3ML) 0.083% Inhalation Nebulization Solution (Proventil)Indicatio ns:COPD, group D, by GOLD 2017 classification ([facility]) Inhale 1 Vial via nebulizer every [...] as of this encounter (statuses as of 11/05/2023) Active Problems Problem Noted Date Diagnosed Date [...] fibrillation) 09/22/2021 Atherosclerotic heart diseas e of cahto coronary artery with other forms of angina [...] untreated, BMI 43.71 kg/m, NECK: 21 inches, [place] 6/24, sent for bipap titration study 01/11/11 case per [facility] completed ICD-10 update of inactive term Last Assessment & Plan: Waiting for new bipap machine BMI 35-39 ISOLATED (SEE ACTUAL BMI) 01/17/2010 Overview: Per Obesity Protocol, #19 BPH without obstruction/lower urinary tract symp toms 08/19/2009 Dyslipidemia, goal LDL below 70 07/21/2009 Overview: Per Lipid Taxonomy. documented as of this encounter (statuses as of 11/05/2023) Resolved Problems Problem Noted Date Diagnosed Date [...] 11/22/2020 10/12/2023 Coronary artery disease invo lving cahto coronary artery of cahto heart without angina pectoris 07/06/2020 10/12/2023 Chronic [...] 09/23/201305/17 Claudication 05/13/2013 10/12/2023 [employer] Other*[id number] 04/23/2012 09/12/2016 Overview: Study Title: Genomic Markers for Patients with Cardiovascular Disease Project # [id number] Industrial Engineering Intern: Comfort Aviles MD [phone] Impotence of organic origin 02/16/2011 01/10/2018 Shortness [...] as of this encounter (statuses as of 11/05/2023) Immunizations Name Administration Dates Next Due COVID-19 [...] do you have serious difficulty hearing? Yes-very SOLOMON 11/03/2023 Are you blind or do you [...] Telephone Encounter - Bridget Ray RN - 11/05/2023 11:42 AM EDT Phone call from patient wanting to know if his colchicine was stopped as he read that it interacts with his cholesterol medication. Per [facility] chart review, patient was discharged on 11/02/23 from [facility].Per d/c physician, he was seen again on 11/01/2023 where he was started on colchicine. Unfortunately, it appears that the new combination has not provided him any relief. Colchicine was discontinued prior to patient reading side effects of colchicine that he picked up at pharmacy. Patient instructed to not take colchicine, verbalized understanding. TRAV Garcia Tobacco Sizer [facility] documented in this encounter Plan of Treatment Upcoming Encounters Date Type Department Care Team (Latest Contact Info) Description 11/14/2023 9:10 AM EDT Office Visit [address] [phone] Buster Jessica MD [address] [place] [address] 11/21/2023 10:55 AM EDT Hospital Encounter [facility], Operating Room [facility] [address] [place] [address] Freeman Beaulieu, DO [address] [place] [phone] 11/21/2023 10:55 AM EDT - 11/21/2023 11:20 AM EDT Surgery OR [facility], Operating Room [facility] [address] [place] [phone] Freeman Beaulieu, DO [address] [place] [phone] INJECTION SACROILIAC JOINT 11/22/2023 10:00 AM EDT Home Visit [facility], [facility] [address] [place] [address] Lisa Tenorio RN [address] [place] [address] 01/15/2024 10:40 AM EDT Office Visit [facility] [address] [place] [phone] Clair Quarles, [address] [place] [address] 04/22/2024 9:30 AM EDT Cardiac Studies Cardiology, [facility] [address] [place] [address] [facility] [address] [place] [address] 05/19/2024 9:30 AM EDT Appointment Radiology, [address] [address] Scheduled Procedures Name Priority Associated Diagnoses Date/Ti me INJECTION SACROILIAC JOINT Inflammation of sacroiliac joint (HCC) 11/21/2023 10:55 AM EDT COLONOSCOPY FLEXIBLE PROXIMAL DIAGNOSTIC Recall History of colon polyps Health Maintenance Due Date Last Done Comments *ADVANCE DIRECTIVE NOT ON FILE 05/28/2019 COVID-19 Vaccine ( season) 2023 11/08/2020, 10/08/2020 DISCUSS TOBACCO CESSATION (REFER TO SMARTSET #6777) 06/02/2023 06/02/2022, 07/21/2020 Depression, Most Recent Score [...] 09/10/2008 LUNG CANCER SCREENING - USE SMARTSET 05897 Completed 08/22/2022, 05/22/2022, 02/21/2021, Additional history exists [...] this encounter Medical Devices Implanted Type Area Compensation Consulting Manager Device Identifier Shelf Expiration Date Model / Serial / Lot 32mm X 109mm, Zenith Fenestrated Aaa Endovascular Proximal Body Graft, Two Proximal Internal Stent Implanted:Qty: 1 on 04/15/2018 by Evens Hoyt MD at OR [facility] [place] [place] N/A: Aorta [employer] 03/20/2021 ZFEN-P-2- [id number] / / [id number] Stent Graft [id number] - [id number] - [id number] Implanted:Qty: 1 on 04/15/2018 by Evens Hoyt MD at OR [facility] [place] [place] Right: Renal Artery GETINGE : MAQUET 11/30/2020 [id number] / [id number] / [id number] Stent Graft [id number] - [id number] - [id number] Implanted:Qty: 1 on 04/15/2018 by Evens Hoyt MD at OR [facility] [place] [place] Right: Renal Artery GETINGE : MAQUET 11/30/2020 12532 / [id number] / [id number] 28mm X 76mm Distal, 12mm Ipsilateral Leg, Zenith Fenestrated Aaa Endovascular Distal Bifurcated Body Graft Implanted:Qty: 1 on 04/15/2018 by Evens Hoyt MD at OR [facility] [place] [place] N/A: Aorta [place] [employer] 03/20/2021 ZFEN-D-12 -28-76-C / / [id number] Graft Iliac Leg Spirlz [id number] - [id number] Implanted:Qty: 1 on 04/15/2018 by Evens Hoyt MD at OR [facility] [place] [place] Left: Iliac [employer] 09/14/2020 [id number] / / [id number] Graft Iliac Leg Spirlz [id number] - [id number] Implanted:Qty: 1 on 04/15/2018 by Evens Hoyt MD at OR [facility] [place] [place] Right: Iliac [employer] 11/09/2020 [id number] / / [id number] Transfixation Pin 6mm 294.950 - [id number] Implanted:Qty: 1 on 11/14/2019 by Mayank Friedman MD at OR [facility] Right: Ankle SYNTHES 294.950 / / Description:transfixation pi n Screw Schanz [id number] - [id number] Implanted:Qty: 2 on 11/14/2019 by Mayank Friedman MD at OR [facility] Right: Leg Lower SYNTHES 294.786SH A / / Description:self drilling sh antz screws 5.0mm x 200mm [place] Trauma 2.7 Lock Screw 16mm Implanted:Qty: 2 on 11/27/2019 by Donavan Ramirez Jr., MD at OR [facility] [place] [place] Right: Ankle ESTHELA : TRAUMA [id number] / / Description:hardware set [place] Trauma 2.7 Lock Screw 14mm Implanted:Qty: 1 on 11/27/2019 by Donavan Rmairez Jr., MD at OR [facility] [place] [place] Right: Ankle ESTHELA : TRAUMA [id number] / / [place] Trauma 3.5 Screw 14mm Implanted:Qty: 1 on 11/27/2019 by Donavan Ramirez Jr., MD at OR [facility] [place] [place] Right: Ankle ESTHELA : TRAUMA [id number] / / Description:hardware set [place] Trauma 3.5 Screw 18mm Implanted:Qty: 1 on 11/27/2019 by Donavan Ramirez Jr., MD at OR [facility] [place] [place] Right: Ankle ESTHELA : TRAUMA [id number] / / Description:hardware set Esthela 3.5 Lockscrew 16mm Implanted:Qty: 1 on 11/27/2019 by Donavan Ramirez Jr., MD at OR [facility] [place] [place] Right: Ankle [id number] / / [place] 2.0 Plate Implanted:Qty: 1 on 11/27/2019 by Donavan Ramirez Jr., MD at OR [facility] [place] [place] Right: Ankle [id number] / / [place] 2.0 Lock Screw Implanted:Qty: 2 on 11/27/2019 by Donavan Ramirez Jr., MD at OR [facility] [place] [place] Right: Ankle [id number] / / Esthela 2.0 Lock Screw Implanted:Qty: 1 on 11/27/2019 by Donavan Ramirez Jr., MD at OR [facility] [place] [place] Right: Ankle [id number] / / Esthela 2.0 Lock Screw Implanted:Qty: 1 on 11/27/2019 by Donavan Ramirez Jr., MD at OR [facility] [place] [place] Right: Ankle [id number] / / Plate [facility] [id number] - [id number] Implanted:Qty: 1 on 11/27/2019 by Donavan Ramirez Jr., MD at [facility] Right: Ankle ESTHELA : TRAUMA [id number] / / Description:hardware set documented as of [...] the patient have Health Care Power of Duplicating Machine Servicer? No Code Status History Code Status Date [...] the patient have Health Care Power of Duplicating Machine Servicer? No Full Code 02/17/2019 12:06 PM 02/18/2019 1:09 PM This order reflects the patients wishes and were consensually agreed upon. Question Answer Comments Discussion of Advance Directives occurred with: Not Discussed Does the patient have a Living Will? No Does the patient have Health Care Power of Duplicating Machine Servicer? No Care Teams Legal Clerk Relationship Specialty Start Date End Date Buster Jessica MD [address] [place] [address] PCP - General Family Medicine 09/11/22 documented as of this encounter
--- OUTSIDE RECORDS SUMMARY | 2023-12-11 18:47 | External Medical Summary | Summary of Care ---
Author Name Unknown Organization [facility] Address [address] [place] [address] Phone [phone] Care Team Providers Care Second Hand Name Role Phone Buster Jessica MD Primary Care P [facility] Reason for Visit * Reason Onset Date Comments [facility]: Maintenance 11/03/2023 Encounter Details Date Type Department Care Team (Late st Contact Info) Description 11/03/2023 Telephone [facility], [facility] [address] [place], [place] [phone] [facility], Nurse [facility] [address] [place] [address] [facility]: Maintenance Allergies Active Allergy Reactions Criticality Noted Date Comments Atorvastatin Muscle pain,Unknown 01/18/2015 Medication intolerance, not an allergy Sacubitril-Valsartan Other (Please comment) 09/17/2020 Throat swelled Sacubitril High 07/20/2023 Other Reaction(s): THROAT SWELLING Simvastatin Low 06/23/2022 Other reaction(s): MUSCLE ACHES Valsartan High 07/20/2023 Other Reaction(s): THROAT SWELLING documented as of this encounter (statuses as of 11/03/2023) Medications Medication Sig Dispensed Refills Start Date End Date Status Torsemide 100 MG Oral Tablet (Demadex)Indication s:Heart failure, systolic, due to CAD ([facility]) Take 1 tablet by mouth every morning. Take 1 tab on Sunday, Sunday and Sunday afternoon. 150 Tablet 3 3 Suspended Additional Information Patient taking differently: Take 1 [...] Oral Tablet (pLAVix)Indications :PAD (peripheral artery disease) ([facility]),Coronary artery disease involving eagle coronary 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 pectoris TAKE ONE TABLET BY MOUTH ONCE DAILY 90 Tablet 3 3 Suspended Additional Information Famotidine 20 MG Oral Tablet (Pepcid) TAKE 1 TABLET BY MOUTH TWICE DAILY (MORNING AND AT BEDTIME) 180 Tablet 3 3 Suspended Additional Information Spironolactone 25 MG Oral Tablet (Aldactone)Indicati ons:Coronary artery disease involving eagle coronary 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 pectoris,Heart failure, systolic, due to CAD ([facility]),Chronic ischemic heart disease,HTN, goal below 140/90 TAKE ONE TABLET BY MOUTH ONCE DAILY 90 Tablet 3 3 Suspended Additional Information Losartan Potassium 25 MG Oral Tablet (Cozaar)Indications :PAD (peripheral artery disease) ([facility]),Coronary artery disease involving eagle coronary artery of [...] due to CAD ([facility]),Dyslipidemia, goal LDL below 70,Chronic ischemic heart [...] 90 Tablet 3 4 Suspended Additional Information Benzonatate 100 MG Oral CapsuleIndications: COPD, group D, by GOLD 2017 classification ([facility]) Take 1 Capsule by mouth 3 times a day as needed for Cough. 30 Capsule 3 4 Suspended Additional Information ARIPiprazole 2 MG Oral Tablet (Abilify)Indication s:Moderate episode of recurrent major depressive disorder (HCC) Take 1 Tablet by mouth in the morning. 30 Tablet 1 4 Suspended Additional Information Naloxone HCl 4 MG/0.1ML Nasal Liquid (Narcan Nasal) Administer 1 spray into 1 nostril for suspected opioid overdose. Seek immediate medical attention. [email or web address] 1 Each 3 4 Suspended Additional Information Patient not taking.Reported on 10/31/2023 Desvenlafaxine Succinate ER 100 MG Oral Tablet Extended Release 24 Hour (Pristiq)Indication s:Moderate episode of recurrent major depressive disorder (HCC) Take 1 Tablet by mouth in the morning. 30 Tablet 11 4 Suspended Additional Information hydrOXYzine HCl 25 MG Oral TabletIndications:I nsomnia due to medical condition Take 0.5 Tablets by mouth at bedtime as needed for Other (sleep). 30 Tablet 1 4 Suspended Additional Information Allopurinol [...] OPD, group D, by GOLD 2017 classification ([facility]) Inhale 1 Puff by mouth in the morning and 1 Puff before bedtime. 180 Each 12 4 Suspended Additional Information Albuterol Sulfate (2.5 MG/3ML) 0.083% Inhalation Nebulization Solution (Proventil)Indicati ons:COPD, group D, by GOLD 2017 classification ([facility] [...] 360 Tablet 1 4 Suspended Additional Information HYDROcodone-Acetami nophen 7.5-325 MG Oral TabletIndications:C hronic bilateral low back pain without sciatica,Acute drug-induced gout of right ankle Take 1 Tablet by mouth every 6 hours as needed for Pain, Severe. 30 Tablet 0 4 Suspended Additional Information Colchicine 0.6 MG Oral TabletIndications:A cute drug-induced gout of right ankle Take 1 Tablet by mouth in the morning and 1 Tablet before bedtime. 30 Tablet 1 4 Suspended Additional Information documented as of this encounter (statuses as of 11/03/2023) Active Problems Problem Noted Date Diagnosed Date [...] untreated, BMI 43.71 kg/m, NECK: 21 inches, [place] 01/27, sent for bipap titration study 01/11/11 case per [facility] completed ICD-10 update of inactive term Last Assessment & Plan: Waiting for new bipap machine BMI 35-39 ISOLATED (SEE ACTUAL BMI) 01/17/2010 Overview: Per Obesity Protocol, #19 BPH without obstruction/lower urinary tract symp toms 08/19/2009 Dyslipidemia, goal LDL below 70 07/21/2009 Overview: Per Lipid Taxonomy. documented as of this encounter (statuses as of 11/03/2023) Resolved Problems Problem Noted Date Diagnosed Date [...] 09/23/201305/17 Claudication 05/13/2013 10/12/2023 [employer] Other*[id number] 04/23/2012 09/12/2016 Overview: Study Title: Genomic Markers for Patients with Cardiovascular Disease Project # [id number] Tag Marker: Comfort Aviles MD [phone] Impotence of organic origin 02/16/2011 01/10/2018 Shortness [...] as of this encounter (statuses as of 11/03/2023) Immunizations Name Administration Dates Next Due COVID-19 [...] do you have serious difficulty hearing? Yes-very KASHIA 11/03/2023 Are you blind or do you [...] Telephone Encounter - Miryam Patel RN - 11/03/2023 7:43 AM EDT [facility] ED [facility] Notification Date: 11/03/2023 Time: 7:43 AM [facility] Subprogram: Focused Care Management (3-9 months) [facility] Episode Start Date: No linked episodes [facility] Enrollment Status: Currently Enrolled Action Taken on [employer] Alert and Outcome of ED Visit: Review ONLY: Admitted to Inpatient Miryam Patel RN documented in this encounter Plan of Treatment Upcoming Encounters Date Type Department Care Team (Latest Contact Info) Description 11/14/2023 9:10 AM EDT Office Visit Family Practice [address] [place] [address] [place] [phone] Buster Jessica MD [address] [place] [address] 11/21/2023 10:55 AM EDT Hospital Encounter [facility], Operating Room [facility] [address] [place] [phone] Freeman Beaulieu, DO [address] [place] [phone] 11/21/2023 10:55 AM EDT - 11/21/2023 11:20 AM EDT Surgery [facility], Operating Room [facility] [address] [place] [phone] Freeman Beaulieu, DO [address] [place] [phone] INJECTION SACROILIAC JOINT 11/22/2023 10:00 AM EDT Home Visit [facility], [place] [address] [place] [address] Lisa Tenorio RN [address] [place] [address] 01/15/2024 10:40 AM EDT Office Visit Sleep Disorders Ctr [facility] [address] [place] [phone] Clair Quarles, DO [address] [place] [address] 04/22/2024 9:30 AM EDT Cardiac Studies Cardiology, [facility] [address] [place] [address] [facility] [address] [place] [address] 05/19/2024 9:30 AM EDT Appointment Radiology, [place] [address] [facility] [address] Scheduled Procedures Name Priority Associated Diagnoses [...] exists DISCUSS TOBACCO CESSATION (REFER TO SMARTSET #6568) 06/02/2023 06/02/2022, 07/21/2020 Depression, Most Recent Score [...] 09/10/2008 LUNG CANCER SCREENING - USE SMARTSET 04896 Completed 08/22/2022, 05/22/2022, 02/21/2021, Additional history exists [...] this encounter Medical Devices Implanted Type Area Sheet Metal Former Device Identifier Shelf Expiration Date Model / Serial / Lot 32mm X 109mm, Zenith Fenestrated Aaa Endovascular Proximal Body Graft, Two Proximal Internal Stent Implanted:Qty: 1 on 04/15/2018 by Evens Hoyt MD at [place] [facility] N/A: Aorta [employer] 03/20/2021 ZFKEDAR-P-2- 32-109-R / / [id number] Stent Graft [id number] - [id number] - [id number] Implanted:Qty: 1 on 04/15/2018 by Evens Hoyt MD at OR [facility] Right: Renal Artery GETINGE : MAQUET 11/30/2020 05947 / [id number] / [id number] Stent Graft [id number] 85789 - [id number] - [id number] Implanted:Qty: 1 on 04/15/2018 by Evens Hoyt MD at OR [facility] Right: Renal Artery GETINGE : MAQUET 11/30/2020 28090 / [id number] / [id number] 28mm X 76mm Distal, 12mm Ipsilateral Leg, Zenith Fenestrated Aaa Endovascular Distal Bifurcated Body Graft Implanted:Qty: 1 on 04/15/2018 by Evens Hoyt MD at OR [facility] N/A: Aorta [employer] 03/20/2021 LISA-D-12 -28-76-C / / [id number] Graft Iliac Leg Spirlz 95q28fa - [id number] Implanted:Qty: 1 on 04/15/2018 by vEens Hoyt MD at OR [facility] Left: Iliac [employer] 09/14/2020 [id number] / / [id number] Graft Iliac Leg Spirlz 42h13mu - [id number] Implanted:Qty: 1 on 04/15/2018 by Evens Hoyt MD at OR [facility] Right: Iliac [employer] 11/09/2020 [id number] / / [id number] Transfixation Pin 6mm 294.950 - [id number] Implanted:Qty: 1 on 11/14/2019 by Mayank Friedman MD at OR [facility] Right: Ankle SYNTHES 294.950 / / Description:transfixation pi n Screw Schanz 5.8sko888tb - [id number] Implanted:Qty: 2 on 11/14/2019 by Mayank Friedman MD at OR [facility] Right: Leg Lower SYNTHES 294.786SH A / / Description:self drilling sh antz screws 5.0mm x 200mm [place] Trauma 2.7 Lock Screw 16mm Implanted:Qty: 2 on 11/27/2019 by Donavan Ramirez Jr., MD at OR [facility] Right: Ankle ESTHELA : TRAUMA [id number] / / Description:hardware set [place]hela Trauma 2.7 Lock Screw 14mm Implanted:Qty: 1 on 11/27/2019 by Donavan Ramirez Jr., MD at OR [facility] Right: Ankle ESTHELA : TRAUMA [id number] / / [place]on Trauma 3.5 Screw 14mm Implanted:Qty: 1 on 11/27/2019 by Donavan Ramirez Jr., MD at OR [facility] Right: Ankle ESTHELA : TRAUMA [id number] / / Description:hardware set [place] Trauma 3.5 Screw 18mm Implanted:Qty: 1 on 11/27/2019 by Donavan Ramirez Jr., MD at OR [facility] Right: Ankle ESTHELA : TRAUMA [id number] / / Description:hardware set [place] 3.5 Lockscrew 16mm Implanted:Qty: 1 on 11/27/2019 by Donavan Ramirez Jr., MD at OR [facility] Right: Ankle [id number] / / [place] 2.0 Plate Implanted:Qty: 1 on 11/27/2019 by Donavan Ramirez Jr., MD at OR [facility] Right: Ankle [id number] / / [place] 2.0 Lock Screw Implanted:Qty: 2 on 11/27/2019 by Donavan Ramirez Jr., MD at OR [facility] Right: Ankle [id number] / / Esthela 2.0 Lock Screw Implanted:Qty: 1 on 11/27/2019 by Donavan Ramirez Jr., MD at [facility] Right: Ankle [id number] / / Esthela 2.0 Lock Screw Implanted:Qty: 1 on 11/27/2019 by Donavan Ramirez Jr., MD at [facility] Right: Ankle [id number] / / Plate Fib 5h - [id number] Implanted:Qty: 1 on 11/27/2019 by Donavan Ramirez Jr., MD at [place] [facility] Right: Ankle ESTHELA : TRAUMA / / Description:hardware set documented as of this encounter Advance Directives Latest Code Status on File Code Status Date Activated Date Inactivated Comments Full Code 11/03/2023 12:54 AM This orde r reflects the patients wishes and were consensually agreed upon. Question Answer Comments Discussion of Advance Directives occurred with: Patient Does the patient have a Living Will? No Does the patient have Health Care Power of Store Sales Manager? No Code Status History Code Status [...] the patient have Health Care Power of Store Sales Manager? No Full Code 02/17/2019 12:06 PM 02/18/2019 1:09 PM This order reflects the patients wishes and were consensually agreed upon. Question Answer Comments Discussion of Advance Directives occurred with: Not Discussed Does the patient have a Living Will? No Does the patient have Health Care Power of Store Sales Manager? No Care Teams Second Hand Relationship Specialty Start Date End Date Buster Jessica MD [address] [place] [address] PCP - General Family Medicine 09/11/22 documented as of this encounter
--- OUTSIDE RECORDS SUMMARY | 2023-12-11 18:47 | External Medical Summary | Summary of Care ---
Author Name Unknown Organization [facility] Address [address] [place] [address] Phone [phone] Care Team Providers Care Marketing Database Consultant Name Role Phone Buster Jessica MD Primary Care P rovider Reason for Visit * Reason Onset Date Comments Referral 11/06/2023 Needs a referral for Physical Therapy Encounter Details Date Type Department Care Team (Late st Contact Info) Description 11/06/[address] [phone] Buster Jessica MD [address] [place] [phone] Referral (Needs a referral for Physical [...] [facility] [place] [place]),Coronary artery disease involving [place] coronary artery of [place] heart without angina pectoris TAKE ONE TABLET BY MOUTH ONCE DAILY 90 Tablet 3 03/13/2023 Active Famotidine 20 MG Oral Tablet (Pepcid) TAKE 1 TABLET BY MOUTH TWICE DAILY (MORNING AND AT BEDTIME) 180 Tablet 3 04/30/2023 Active Spironolactone 25 MG Oral Tablet (Aldactone)Indicatio ns:Coronary artery disease involving [place] coronary artery of [place] heart without angina pectoris,Heart failure, systolic, due to CAD ([facility]),Chronic ischemic heart disease,HTN, goal below 140/90 TAKE ONE TABLET BY MOUTH ONCE DAILY 90 Tablet 3 05/14/2023 Active Losartan Potassium 25 MG Oral Tablet (Cozaar)Indications: PAD (peripheral artery disease) ([facility]),Coronary artery disease involving [place] coronary artery of [place] heart without angina pectoris TAKE ONE TABLET [...] heart disease,Tobacco use disorder,Coronary artery disease involving [place] coronary artery of [place] heart without angina pectoris Inject 140 mg [...] suspected opioid overdose. Seek immediate medical attention. [email or web address] 1 Each 3 09/15/2023 Active Additional Information [...] fibrillation) 09/22/2021 Atherosclerotic heart diseas e of [place] coronary artery with other forms of angina [...] untreated, BMI 43.71 kg/m, NECK: 21 inches, [place] 6/24, sent for bipap titration study 01/11/11 [...] 11/22/2020 10/12/2023 Coronary artery disease invo lving [place] coronary artery of [place] heart without angina pectoris 07/06/2020 10/12/2023 Chronic [...] 09/23/201305/17 Claudication 05/13/2013 10/12/2023 [employer] Other*[id number] 04/23/2012 09/12/2016 Overview: Study Title: Genomic Markers for Patients with Cardiovascular Disease Project # [id number] Managed Services Consultant: Comfort Aviles MD [phone] Impotence of organic origin 02/16/2011 01/10/2018 Shortness [...] do you have serious difficulty hearing? Yes-very NATIVE 11/03/2023 Are you blind or do you [...] any questions you can call Queta at [phone], pt is not under her care, but she will help if you have any questions. documented in this encounter Plan of Treatment Upcoming Encounters Date Type Department Care Team (Latest Contact Info) Description 11/14/2023 9:10 AM EDT Office Visit [address] [address] Buster Jessica MD [address] [place] [address], [place] [address] 11/21/2023 10:55 AM EDT Hospital Encounter [facility], Operating Room [facility] [address] [place] [phone] Freeman Beaulieu, DO [address] [place] [address] 11/21/2023 10:55 AM EDT - 11/21/2023 11:20 AM EDT Surgery OR [facility], Operating Room [facility] [address] [place] [phone] Freeman Beaulieu, DO [address] [place] [phone] INJECTION SACROILIAC JOINT 11/22/2023 10:00 AM EDT Home Visit [facility] [address] [place] [address] Lisa Tenorio RN [address] [place] [address] 01/15/2024 10:40 AM EDT Office Visit Sleep Disorders Ctr [facility] [address] [place] [phone] Clair Quarles, DO [address] [place] [address] 04/22/2024 9:30 AM EDT Cardiac Studies Cardiology, [facility] [address] [place] [address] [facility] [address] [place] [address] 05/19/2024 9:30 AM EDT Appointment Radiology, [place] [id number] [place] [address] Scheduled Procedures Name Priority Associated Diagnoses Date/Ti me INJECTION SACROILIAC JOINT Inflammation of sacroiliac joint (HCC) 11/21/2023 10:55 AM EDT COLONOSCOPY FLEXIBLE PROXIMAL DIAGNOSTIC Recall History of colon polyps Health Maintenance Due Date Last Done Comments *ADVANCE DIRECTIVE NOT ON FILE 05/28/2019 COVID-19 Vaccine ( season) 2023 11/08/2020, 10/08/2020 DISCUSS TOBACCO CESSATION (REFER TO SMARTSET #4531) 06/02/2023 06/02/2022, 07/21/2020 Depression, Most Recent Score [...] 09/10/2008 LUNG CANCER SCREENING - USE SMARTSET 35637 Completed 08/22/2022, 05/22/2022, 02/21/2021, Additional history exists [...] this encounter Medical Devices Implanted Type Area Insurance Processing Clerk Device Identifier Shelf Expiration Date Model / Serial / Lot 32mm X 109mm, Zenith Fenestrated Aaa Endovascular Proximal Body Graft, Two Proximal Internal Stent Implanted:Qty: 1 on 04/15/2018 by Evens Hoyt MD at [place] [facility] N/A: Aorta [employer] 03/20/2021 ZFEN-P-2- 32-109-R / / [id number] Stent Graft [id number] - [id number] - [id number] Implanted:Qty: 1 on 04/15/2018 by Evens Hoyt MD at OR [facility] Right: Renal Artery GETINGE : MAQUET 11/30/2020 57044 / [id number] / [id number] Stent Graft [id number] - [id number] - [id number] Implanted:Qty: 1 on 04/15/2018 by Evens Hoyt MD at OR [facility] Right: Renal Artery GETINGE : MAQUET 11/30/2020 04614 / [id number] / [id number] 28mm X 76mm Distal, 12mm Ipsilateral Leg, Zenith Fenestrated Aaa Endovascular Distal Bifurcated Body Graft Implanted:Qty: 1 on 04/15/2018 by Evens Hoyt MD at OR [facility] N/A: Aorta [employer] 03/20/2021 ZFEN-D-12 -28-76-C / / [id number] Graft Iliac Leg Spirlz 79g88fv - [id number] Implanted:Qty: 1 on 04/15/2018 by Evens Hoyt MD at OR [facility] Left: Iliac [employer] 09/14/2020 [id number] / / [id number] Graft Iliac Leg Spirlz 21n34sd - [id number] Implanted:Qty: 1 on 04/15/2018 by Evens Hoyt MD at OR [facility] Right: Iliac [employer] 11/09/2020 [id number] / / [id number] Transfixation Pin 6mm 294.950 - [id number] Implanted:Qty: 1 on 11/14/2019 by Mayank Friedman MD at OR [facility] Right: Ankle SYNTHES 294.950 / / Description:transfixation pi n Screw Schanz 5.5azq426uq - [id number] Implanted:Qty: 2 on 11/14/2019 by Mayank Friedman MD at OR [facility] Right: Leg Lower SYNTHES 294.786SH A / / Description:self drilling sh antz screws 5.0mm x 200mm [place] Trauma 2.7 Lock Screw 16mm Implanted:Qty: 2 on 11/27/2019 by Donavan Ramirez Jr., MD at OR [facility] Right: Ankle ESTHELA : TRAUMA [id number] / / Description:hardware set [place] Trauma 2.7 Lock Screw 14mm Implanted:Qty: 1 on 11/27/2019 by Donavan Ramirez Jr., MD at OR [facility] Right: Ankle ESTHELA : TRAUMA [id number] / / [place] Trauma 3.5 Screw 14mm Implanted:Qty: 1 on 11/27/2019 by Donavan Ramirez Jr., MD at OR [facility] Right: Ankle ESTHELA : TRAUMA [id number] / / Description:hardware set [place] Trauma 3.5 Screw 18mm Implanted:Qty: 1 on 11/27/2019 by Donavan Ramirez Jr., MD at OR [facility] Right: Ankle ESTHELA : TRAUMA [id number] / / Description:hardware set [place] 3.5 Lockscrew 16mm Implanted:Qty: 1 on 11/27/2019 by Donavan Ramirez Jr., MD at OR [facility] Right: Ankle [id number] / / Esthela 2.0 Plate Implanted:Qty: 1 on 11/27/2019 by Donavan Ramirez Jr., MD at OR [facility] Right: Ankle [id number] / / [place] 2.0 Lock Screw Implanted:Qty: 2 on 11/27/2019 by Donavan Ramirez Jr., MD at OR [facility] Right: Ankle [id number] / / Esthela 2.0 Lock Screw Implanted:Qty: 1 on 11/27/2019 by Donavan Ramirez Jr., MD at OR [facility] Right: Ankle [id number] / / [place] 2.0 Lock Screw Implanted:Qty: 1 on 11/27/2019 by Donavan Ramirez Jr., MD at OR [facility] Right: Ankle 439710 / / Plate Fib - [id number] Implanted:Qty: 1 on 11/27/2019 by Donavan Ramirez Jr., MD at OR [facility] Right: Ankle ESTHELA : TRAUMA [...] the patient have Health Care Power of Pulmonary Physical Therapist? No Code Status History Code Status Date [...] the patient have Health Care Power of Pulmonary Physical Therapist? No Full Code 02/17/2019 12:06 PM 02/18/2019 1:09 PM This order reflects the patients wishes and were consensually agreed upon. Question Answer Comments Discussion of Advance Directives occurred with: Not Discussed Does the patient have a Living Will? No Does the patient have Health Care Power of Pulmonary Physical Therapist? No Care Teams Marketing Database Consultant Relationship Specialty Start Date End Date Bsuter Jessica MD [address] [place] [address] PCP - General Family Medicine 09/11/22 documented as of this encounter
--- OUTSIDE RECORDS SUMMARY | 2023-12-11 18:48 | External Medical Summary ---
Author Name Unknown Address Unknown Organization K01:LABORATORY [facility] - [address] [place] [address] Laboratory Report Ordering Provider Test Date Status SEVEN HARMAN 11/02/2023 22:52:00 Final Less than 0.5 ng/mL: Low ris [...] [Mass/volume] in Serum or Plasma by Immunoassay 11/02/2023 22:52:00 0.20 Above high normal <0.10 (ng/mL) Final Performing Location LABORATORY [facility] - [facility] [address] [place] [address]
--- OUTSIDE RECORDS SUMMARY | 2023-12-11 18:48 | External Medical Summary ---
Author Name Unknown Address Unknown Organization [id number]:LABORATORY [facility] - [address] [place] [id number] Laboratory Report Ordering Provider Test Date Status PARAMJIT SALAS 11/02/2023 22:53:37 Final Observation Date Value Abnormality Reference (Units ) Status BUN 11/02/2023 22:53:37 18 6-20 (mg/dL) Final Creatinine 11/02/2023 22:53:37 1.2 0.6-1.2 (mg/dL) Final Glomerular filtration rate/1.73 sq M.predicted [Volume Rate/Area] in Serum, Plasma or Blood by Creatinine-based formula (CKD-EPI) 11/02/2023 22:53:37 63 >=60 (mL/min) Final eGFR is calculated based on the CKD-EPI 2020 equation Sodium 11/02/2023 22:53:37 130 Below low normal 135 -146 (mmol/L) Final Potassium 11/02/2023 22:53:37 3.3 Below low normal 3.5 -5.1 (mmol/L) Final Cl 11/02/2023 22:53:37 87 Below low normal 98- 107 (mmol/L) Final CO2 11/02/2023 22:53:37 27 22-32 (mmo l/L) Final Anion gap 11/02/2023 22:53:37 16 Above high normal 7- 15 (mmol/L) Final Glucose 11/02/2023 22:53:37 170 Above high normal 70 -120 (mg/dL) Final Calcium 11/02/2023 22:53:37 8.9 8.4-10.2 ( mg/dL) Final Performing Location LABORATORY [facility] - [address] [facility] [address]
--- OUTSIDE RECORDS SUMMARY | 2023-12-11 18:48 | External Medical Summary ---
Author Name Unknown Address Unknown Organization K1G:LABORATORY [facility] - [address] [place] [id number] Laboratory Report Ordering Provider Test Date Status PARAMJIT SALAS 11/03/2023 00:36:18 Final SCREENING Observation Date Value Abnormality Reference (Units ) Status SARS Coronavirus 2 11/03/2023 00:36:18 Negative N egative Final 2019 Novel Coronavirus not d etected.

This express test was developed and its performance characteristics determined by [employer]. It has not been cleared or approved [...] SARS-CoV-2 diagnosis, surveillance, and travel within the [place] and to most countries. Please check with local testing authorities about requirements before travel.

The validation of bronchial specimens, tracheal aspirates, and sputum for this assay was developed and performance characteristics determined by [employer]. The validation of alternate specimen types has not been cleared or approved by the U.S. Food and Drug Administration (FDA). It has been determined that such clearance is not necessary. Performing Location LABORATORY [facility] - [address] [facility] [address]
--- OUTSIDE RECORDS SUMMARY | 2023-12-11 18:48 | External Medical Summary ---
Author Name Unknown Address Unknown Organization K1G:LABORATORY [facility] - [address] [place] [id number] Laboratory Report Ordering Provider Test Date Status SEVEN HARMAN 11/03/2023 06:38:00 Final Observation Date Value Abnormality Reference (Units ) Status BUN 11/03/2023 06:38:00 19 6-20 (mg/dL) Final Creatinine 11/03/2023 06:38:00 1.1 0.6-1.2 (mg/dL) Final Glomerular filtration rate/1.73 sq M.predicted [Volume Rate/Area] in Serum, Plasma or Blood by Creatinine-based formula (CKD-EPI) 11/03/2023 06:38:00 69 >=60 (mL/min) Final eGFR is calculated based on the CKD-EPI 2020 equation Sodium 11/03/2023 06:38:00 133 Below low normal 135 -146 (mmol/L) Final Potassium 11/03/2023 06:38:00 3.6 3.5-5.1 (m mol/L) Final Cl 11/03/2023 06:38:00 93 Below low normal 98- 107 (mmol/L) Final CO2 11/03/2023 06:38:00 29 22-32 (mmo l/L) Final Anion gap 11/03/2023 06:38:00 11 7-15 (mmol /L) Final Glucose 11/03/2023 06:38:00 167 Above high normal 70 -120 (mg/dL) Final Calcium 11/03/2023 06:38:00 8.5 8.4-10.2 ( mg/dL) Final Performing Location LABORATORY [facility] - [address] [facility] [address]
--- OUTSIDE RECORDS SUMMARY | 2023-12-11 18:48 | External Medical Summary ---
Author Name Unknown Address Unknown Organization K1G:LABORATORY [facility] - [facility]0 [facility] [address] Laboratory Report Ordering Provider Test Date Status PARAMJIT SALAS 11/02/2023 22:53:37 Final Observation Date Value Abnormality Reference (Units ) Status SYNC LEUKOCYTES IN BLOOD BY AUTOMATED COUNT 11/02/2023 22:53:37 16.02 Above high normal 4.00-10.80 (K/uL) Final Segs 11/02/2023 22:53:37 85.9 Above high normal 40.0-75.0 (%) Final Lymphs % 11/02/2023 22:53:37 4.6 Below low normal 18.0-42.0 (%) Final Monos 11/02/2023 22:53:37 9.4 1.0-11.0 (%) Final Eosinophils 11/02/2023 22:53:37 0.0 0.0-6.0 (%) Final Basos 11/02/2023 22:53:37 0.1 0.0-2.0 (%) Final Absolute Segs 11/02/2023 22:53:37 13.75 Above high normal 1.80-7.70 (K/uL) Final Lymphs, absolute 11/02/2023 22:53:37 0.74 Below low normal 1.00-4.80 (K/ul) Final Monos, Abs 11/02/2023 22:53:37 1.51 Above high normal 0.00-1.10 (K/uL) Final Eos, Abs 11/02/2023 22:53:37 0.00 0.00-0.70 (K/uL) Final Basos, Abs 11/02/2023 22:53:37 0.02 0.00-0.20 (K/uL) Final Performing Location LABORATORY [facility] - [address] [facility] [phone]
--- OUTSIDE RECORDS SUMMARY | 2023-12-11 18:48 | External Medical Summary ---
Author Name Unknown Address Unknown Organization K1G:LABORATORY [facility] - [facility]0 [facility] [address] Laboratory Report Ordering Provider Test Date Status SEVEN HARMAN 11/02/2023 22:53:37 Final Observation Date Value Abnormality Reference (Units ) Status Phosphate 11/02/2023 22:53:37 2.9 2.5-4.8 (m g/dL) Final Performing Location LABORATORY [facility] - [address] [facility] [address]
--- OUTSIDE RECORDS SUMMARY | 2023-12-11 18:48 | External Medical Summary ---
Author Name Unknown Address Unknown Organization K1G:LABORATORY [facility] - [facility]0 [place] [facility] [address] Laboratory Report Ordering Provider Test Date Status SEVEN HARMAN 11/03/2023 06:38:00 Final Observation Date Value Abnormality Reference (Units ) Status Phosphate 11/03/2023 06:38:00 3.0 2.5-4.8 (m g/dL) Final Performing Location LABORATORY [facility] - [address] [facility] [address]
--- OUTSIDE RECORDS SUMMARY | 2023-12-11 18:48 | External Medical Summary ---
Author Name Unknown Address Unknown Organization K1G:LABORATORY [facility] - [address] [facility] [address] Laboratory Report Ordering Provider Test Date Status SEVEN HARMAN 11/03/2023 06:38:00 Final Warfarin Therapy
INR: 2 .0-3.0 conventional anticoagulation
INR: 2.5- 3.5 high intensity anticoagulation Observation Date Value Abnormality Reference (Units ) Status PT 11/03/2023 06:38:00 16.5 Above high normal 11 .6-15.2 (seconds) Final INR 11/03/2023 06:38:00 1.3 Above high normal 0. 8-1.2 Final Performing Location LABORATORY [facility] - [address] [facility] [address]
--- OUTSIDE RECORDS SUMMARY | 2023-12-11 18:48 | External Medical Summary ---
Author Name Unknown Address Unknown Organization K1G:LABORATORY [facility] - [address] [place] [phone] Laboratory Report Ordering Provider Test Date Status SEVEN HARMAN 11/03/2023 06:38:00 Final Observation Date Value Abnormality Reference (Units ) Status WBC, Total 11/03/2023 06:38:00 13.25 Above high normal 4 .00-10.80 (K/uL) Final RBC 11/03/2023 06:38:00 4.03 4.50-5.25 (M/uL) Final Hemoglobin 11/03/2023 06:38:00 11.7 Below low normal 14 .0-16.8 (g/dL) Final HCT 11/03/2023 06:38:00 36.2 Below low normal 40. 0-48.4 (%) Final MCV 11/03/2023 06:38:00 89.8 82.0-99.5 (fL) Final MCH 11/03/2023 06:38:00 29.0 27.0-34.0 (pg) Final MCHC 11/03/2023 06:38:00 32.3 32.0-36.0 (g/dL) Final RDW 11/03/2023 06:38:00 15.4 11.5-15.5 (%) Final Platelets 11/03/2023 06:38:00 231 140-400 (K /uL) Final MPV 11/03/2023 06:38:00 10.5 6.6-11.1 ( fL) Final Performing Location LABORATORY [facility] - [address] [place] [phone]
--- OUTSIDE RECORDS SUMMARY | 2023-12-11 18:48 | External Medical Summary ---
Author Name Unknown Address Unknown Organization K1G:LABORATORY [facility] - [employer] [facility] [address] Laboratory Report Ordering Provider Test Date Status SEVEN HARMAN 11/03/2023 06:38:00 Final Observation Date Value Abnormality Reference (Units ) Status Magnesium 11/03/2023 06:38:00 2.2 1.5-2.6 (m g/dL) Final Performing Location [facility] [address] [facility] [address]
--- OUTSIDE RECORDS SUMMARY | 2023-12-11 18:48 | External Medical Summary ---
Author Name Unknown Address Unknown Organization K01:LABORATORY [facility] - [address] [place] [address] Laboratory Report Ordering Provider Test Date Status PARAMJIT SALAS 11/02/2023 22:53:37 Final Observation Date Value Abnormality Reference (Units ) Status Uric Acid 11/02/2023 22:53:37 11.4 Above high normal 3. 4-7.0 (mg/dL) Final Performing Location LABORATORY [facility] - [address] [place] [address]
--- OUTSIDE RECORDS SUMMARY | 2023-12-11 18:48 | External Medical Summary ---
Author Name Unknown Address Unknown Organization K1G:LABORATORY [facility] - [address] [place] [address] Laboratory Report Ordering Provider Test Date Status SEVEN HARMAN 11/02/2023 22:53:37 Final Observation Date Value Abnormality Reference (Units ) Status LORETTA 11/02/2023 22:53:37 49 39-308 (U/ L) Final Performing Location LABORATORY [facility] - [address] [facility] [address]
--- OUTSIDE RECORDS SUMMARY | 2023-12-11 18:48 | External Medical Summary ---
Author Name Unknown Address Unknown Organization K01:LABORATORY [facility] - [address] [place] [address] Laboratory Report Ordering Provider Test Date Status SEVEN HARMAN 11/02/2023 22:53:37 Final Observation Date Value Abnormality Reference (Units ) Status Erythrocyte sedimentation rate by Photometric method 11/02/2023 22:53:37 65 Above high normal <20 (mm/hour) Final Performing Location LABORATORY [facility] - [address] [place] [address]
--- OUTSIDE RECORDS SUMMARY | 2023-12-11 18:48 | External Medical Summary ---
Author Name Unknown Address Unknown Organization K1G:LABORATORY [facility] - [facility]0 [facility] [address] Laboratory Report Ordering Provider Test Date Status SEVEN HARMAN 11/02/2023 22:53:37 Final Observation Date Value Abnormality Reference (Units ) Status CRP, low-sensitivity 11/02/2023 22:53:37 210 Above high normal <=5 (mg/L) Final Performing Location LABORATORY [facility] [address] [facility] [address]
--- OUTSIDE RECORDS SUMMARY | 2023-12-11 18:48 | External Medical Summary ---
Author Name Unknown Address Unknown Organization K1G:LABORATORY [facility] - [address] [place] [address] Laboratory Report Ordering Provider Test Date Status PARAMJIT SALAS 11/02/2023 22:53:37 Final Observation Date Value Abnormality Reference (Units ) Status WBC, Total 11/02/2023 22:53:37 16.02 Above high normal 4 .00-10.80 (K/uL) Final RBC 11/02/2023 22:53:37 4.47 4.50-5.25 (M/uL) Final Hemoglobin 11/02/2023 22:53:37 12.9 Below low normal 14 .0-16.8 (g/dL) Final HCT 11/02/2023 22:53:37 39.8 Below low normal 40. 0-48.4 (%) Final MCV 11/02/2023 22:53:37 89.0 82.0-99.5 (fL) Final MCH 11/02/2023 22:53:37 28.9 27.0-34.0 (pg) Final MCHC 11/02/2023 22:53:37 32.4 32.0-36.0 (g/dL) Final RDW 11/02/2023 22:53:37 15.3 11.5-15.5 (%) Final Platelets 11/02/2023 22:53:37 261 140-400 (K /uL) Final MPV 11/02/2023 22:53:37 11.3 6.6-11.1 ( fL) Final Performing Location LABORATORY [facility] - [address] [facility] [address]
--- OUTSIDE RECORDS SUMMARY | 2023-12-11 18:48 | External Medical Summary ---
Author Name Unknown Address Unknown Organization K1G:LABORATORY [facility] - [facility] [address] Laboratory Report Ordering Provider Test Date Status SEVEN HARMAN 11/02/2023 22:53:37 Final Observation Date Value Abnormality Reference (Units ) Status Magnesium 11/02/2023 22:53:37 2.1 1.5-2.6 (m g/dL) Final Performing Location [facility] [address] [facility] [address]
--- OUTSIDE RECORDS SUMMARY | 2023-12-11 18:48 | External Medical Summary ---
Author Name Unknown Address Unknown Organization K01:LABORATORY [facility] [place] - [address] [place] [address] Laboratory Report Ordering Provider Test Date Status SEVEN HARMAN 11/02/2023 22:53:37 Final Recommended trough therapeut ic ranges:
0.5 to 0.8 for heart failure
0.5 to 1.1 for atrial fibrillation Observation Date Value Abnormality Reference (Units ) Status Digoxin 11/02/2023 22:53:37 0.9 0.5-1.1 (n g/mL) Final Performing Location LABORATORY [facility] - [address] [place] [address]
--- OUTSIDE RECORDS SUMMARY | 2023-12-11 18:48 | External Medical Summary ---
Author Name Unknown Address Unknown Organization K1G:LABORATORY [facility] - [address] [place] [address] Laboratory Report Ordering Provider Test Date Status SEVEN HARMAN 11/03/2023 01:13:02 Final Observation Date Value Abnormality Reference (Units ) Status Lactic Acid 11/03/2023 01:13:02 1.4 0.4-2.0 (mmol/L) Final Performing Location LABORATORY [facility] - [address] [facility] [address]
--- OUTSIDE RECORDS SUMMARY | 2023-12-11 18:49 | External Medical Summary | Summary of Care ---
Author Name Unknown Organization [facility] Address [address] [place] [address] Phone [phone] Care Team Providers Care Home Therapy Clinician Name Role Phone Buster Jessica MD Primary Care [facility] Reason for Visit * Reason Onset Date Comments Medication Pre-auth 10/31/2023 HYDROCODONE- ACETAMIN 7.5-325 Encounter Details Date Type Department Care Team ([facility] Contact Info) Description 10/31/[address] [phone] Buster Jessica MD [address] [place] [address] [phone] Medication Pre-auth (HYDROCODONE-ACETAMIN ... Allergies Active Allergy Reactions Criticality Noted Date Comments Atorvastatin Muscle pain,Unknown 01/18/2015 Medication intolerance, not an allergy Sacubitril-Valsartan Other (Please comment) 09/17/2020 Throat swelled Sacubitril High 07/20/2023 Other Reaction(s): THROAT SWELLING Simvastatin Low 06/23/2022 Other reaction(s): MUSCLE ACHES Valsartan High 07/20/2023 Other Reaction(s): THROAT SWELLING documented as of this encounter (statuses as of 10/31/2023) Medications Medication Sig Dispensed Refills Start Date End Date Status Torsemide 100 MG Oral Tablet (Demadex)Indications :Heart failure, systolic, due to CAD ([facility]) Take 1 tablet by mouth every morning. [...] (pLAVix)Indications: PAD (peripheral artery disease) ([facility]),Coronary artery disease involving [place] coronary artery of [place] heart without angina pectoris TAKE ONE TABLET BY MOUTH ONCE DAILY 90 Tablet 3 03/13/2023 Active Famotidine 20 MG Oral Tablet (Pepcid) TAKE 1 TABLET BY MOUTH TWICE DAILY (MORNING AND AT BEDTIME) 180 Tablet 3 04/30/2023 Active Spironolactone 25 MG Oral Tablet (Aldactone)Indicatio ns:Coronary artery disease involving [place] coronary artery of [place] heart without angina pectoris,Heart failure, systolic, due to CAD ([facility]),Chronic ischemic heart disease,HTN, goal below 140/90 TAKE ONE TABLET BY MOUTH ONCE DAILY 90 Tablet 3 05/14/2023 Active Losartan Potassium 25 MG Oral Tablet (Cozaar)Indications: PAD (peripheral artery disease) ([facility]),Coronary artery disease involving [place] coronary artery of [place] heart without angina pectoris TAKE ONE TABLET [...] failure, systolic, due to CAD ([facility]),Dyslipidemia, goal LDL below 70,Chronic ischemic heart disease,Tobacco use disorder,Coronary artery disease involving [place] coronary artery of [place] heart without angina pectoris Inject 140 mg [...] milligrams daily in the morning. 90 Tablet 08/23/2023 Active Digoxin 125 MCG Oral Tablet (Lanoxin) Take 1 Tablet by mouth in the morning. 90 Tablet 08/23/2023 Active Benzonatate 100 MG Oral CapsuleIndications:C OPD, group D, by GOLD 2017 classification ([facility]) Take 1 Capsule by mouth 3 times a day as needed for Cough. 30 Capsule 3 08/29/2023 Active ARIPiprazole 2 MG Oral Tablet (Abilify)Indications :Moderate episode of recurrent major depressive disorder (HCC) Take 1 Tablet by mouth in the morning. 30 Tablet 1 09/06/2023 Active Naloxone HCl 4 MG/0.1ML Nasal Liquid (Narcan Nasal) Administer 1 spray into 1 nostril for suspected opioid overdose. Seek immediate medical attention. [email or web address] 1 Each 09/15/2023 Active Additional Information Patient not taking.Reported on 10/31/2023 Desvenlafaxine Succinate ER 100 MG Oral Tablet Extended Release 24 Hour (Pristiq)Indications :Moderate episode of recurrent major depressive disorder (HCC) Take 1 Tablet by mouth in the morning. 30 Tablet 09/21/2023 Active hydrOXYzine HCl 25 MG Oral TabletIndications:In somnia due to medical condition Take 0.5 Tablets by mouth at bedtime as needed for Other (sleep). 30 Tablet 1 10/12/2023 Active Additional Information Patient not taking.Reported on 10/31/2023 Allopurinol 100 MG Oral Tablet (Zyloprim)Indication s:Acute gout of right hand, unspecified cause Take 1 Tablet by mouth in the morning. 30 Tablet 10/19/2023 Active metOLazone 2.5 MG Oral Tablet (Zaroxolyn)Indicatio ns:Ischemic cardiomyopathy Take 1 Tablet by mouth once a week. take 30 minutes prior to torsemide 4 Tablet 5 10/22/2023 Active Fluticasone-Salmeter ol 250-50 MCG/ACT Inhalation Aerosol Powder Breath Activated (Wixela Inhub)Indications:CO PD, group D, by GOLD 2017 classification ([facility]) Inhale 1 Puff by mouth in the morning and 1 Puff before bedtime. 180 Each 12 10/29/2023 Active Albuterol Sulfate (2.5 MG/3ML) 0.083% Inhalation Nebulization Solution (Proventil)Indicatio ns:COPD, group D, by GOLD 2017 classification ([facility]) Inhale 1 Vial via nebulizer every 4 [...] Pain, Severe. 30 Tablet 0 10/31/2023 Active documented as of this encounter (statuses as of 10/31/2023) Active Problems Problem Noted Date Diagnosed Date Hypertension 10/12/2023 Difficulty using continuous positive airway pressure (CPAP) device 10/12/2023 Chronic systolic congestive heart failure 2023 Cardiomyopathy 09/06/2023 Neuropathic pain of both feet 09/06/2023 Positive colorectal cancer screening using Colog uard test 11/16/2022 Claustrophobia 09/11/2022 Presence of coronary angioplasty implant and gra ft 08/28/2022 Chronic bilateral low back pain without sciatica 08/28/2022 Juxtarenal abdominal aortic aneurysm (AAA) witho ut rupture 08/28/2022 Other persistent atrial fibrillation 08/28/2022 Alcohol consumption binge drinking 08/28/2022 Right lower lobe pulmonary nodule 05/25/2022 Moderate episode of recurrent major depressive d isorder 09/26/2021 Elevated uric acid in blood 09/26/2021 Pulmonary emphysema 09/22/2021 PAF (paroxysmal atrial fibrillation) 09/22/2021 Atherosclerotic heart diseas e of [place] coronary artery with other forms of angina pectoris 09/22/2021 Tobacco dependence 03/07/2021 Adjustment disorder with anxious mood 03/07/2021 Biventricular ICD (implantab le cardioverter-defibrillator) in place 12/23/2020 LBBB (left bundle branch block) 11/22/2020 Controlled substance agreement signed 09/02/2020 PVD (peripheral vascular disease) 12/16/2019 Closed fracture of right ankle with routine heal ing 11/15/2019 Basal cell carcinoma (BCC) of right nasal tip COPD, group D, by GOLD 2017 classification 01/13 Overview: Per COPD GOLD Classification Basal cell carcinoma (BCC) of right ala [...] untreated, BMI 43.71 kg/m, NECK: 21 inches, Depue 01/27, sent for bipap titration study 01/11/11 case per [facility] completed ICD-10 update of inactive term BMI 35-39 ISOLATED (SEE ACTUAL BMI) 01/17/2010 Overview: Per Obesity Protocol, #19 BPH without obstruction/lower urinary tract symp toms 08/19/2009 Dyslipidemia, goal LDL below 70 07/21/2009 Overview: Per Lipid Taxonomy. documented as of this encounter (statuses as of 10/31/2023) Resolved Problems Problem Noted Date Diagnosed Date [...] 11/22/2020 10/12/2023 Coronary artery disease invo lving [place] coronary artery of [place] heart without angina pectoris 07/06/2020 10/12/2023 Chronic [...] 09/23/201305/17 Claudication 05/13/2013 10/12/2023 [employer] Other*[id number] 04/23/2012 09/12/2016 Overview: Study Title: Genomic Markers for Patients with Cardiovascular Disease Project # [id number] Density Control Puncher: Comfort Aviles MD [phone] Impotence of organic origin 02/16/2011 01/10/2018 Shortness [...] as of this encounter (statuses as of 10/31/2023) Immunizations Name Administration Dates Next Due COVID-19 [...] do you have serious difficulty h earing? No-MOHEGAN 11/14/2019 Are you blind or do you [...] (15 years old or older) No 11/14/19 Cognitive Status Response Date of Assessm ent Because of a physical, menta l, or emotional condition, do you have serious difficulty concentrating, remembering, or making decisions? (5 years old or older) No 11/14/2019 documented as of this encounter Miscellaneous Notes * Telephone Encounter - Ham Mondragon CPhT - 10/31/2023 12:45 PM EDT Patients insurance would like to inform the office that HYDROCODONE-ACETAMIN 7.5-325 is not requiring review because No review needed. Test claim approves. Rx released Thank you, Oh Mondragon (Lachelle) Food Science Technician III [facility] ([facility] (formerly Telepharm[facility]) 10/31/2023, 12:45 PM documented in this encounter Plan of Treatment Upcoming Encounters Date Type Department Care Team (Late st Contact Info) Description 11/01/2023 1:30 PM EDT Telemedicine [facility] [place] [place] [address] [place] [address] Grisel Richter CRNP [address] [place] [address] Clary Eastman, Community Health Hopper Operator [address] [place] [address] 11/21/2023 10:55 AM EDT Hospital Encounter [facility], Operating Room [facility] [address] [place] [phone] [place], [address] [place] [phone] 11/21/2023 10:55 AM EDT - 11/21/2023 11:20 AM EDT Surgery OR [facility], Operating Room [facility] [address] [place] [phone] [place], [address] [place] [phone] INJECTION SACROILIAC JOINT 11/22/2023 10:00 AM EDT Home Visit [facility] [place] [address] [place] [address] Lisa Tenorio RN [address] [facility] [place] [address] 01/15/2024 10:40 AM EDT Office Visit Sleep Disorders Ctr [facility] [address] [facility] [place] [phone] Clair Quarles DO [address] [facility] [address] 04/22/2024 9:30 AM EDT Cardiac Studies Cardiology, [facility] [address] [place] [address] [facility] [address] [facility] [place] [address] 05/19/2024 9:30 AM EDT Appointment Radiology, [address] [address] Scheduled Procedures Name Priority Associated [...] exists DISCUSS TOBACCO CESSATION (REFER TO SMARTSET #5718) 06/02/2023 06/02/2022, 07/21/2020 Depression, Most Recent Score >= 10 (will fire each visit until score < 10) 08/30/2023 08/29/2023 GFR 10/29/2024 10/30/2023, 10/04, 10/08/2023, Additional history exists O2 ASSESSMENT COMPLETED IN PAST YEAR FOR COPD 10/30/2024 10/31/2023 Albumin/Creatinine Ratio 06/06/2026 06/06/2023 COLONOSCOPY-EVERY 5 YRS AGES 18-100 10/28/2027 10/27/2022, 04/21/2014, 04/21/2014, Additional history exists DTaP,Tdap,and Td Vaccines (3 - Td or Tdap) 04/13/2030 04/13/2020 (Declined), 08/19/2009 Alpha-1 Antitrypsin Completed 02/19/2020 Pneumococcal Vaccine: 65+ Years Completed 05/27/2020, 12/02/2018, 09/10/2008 LUNG CANCER SCREENING - USE SMARTSET 31683 Completed 08/22/2022, 05/22/2022, 02/21/2021, Additional history exists [...] this encounter Medical Devices Implanted Type Area Computer Recycling Worker Device Identifier Shelf Expiration Date Model / Serial / Lot 32mm X 109mm, Zenith Fenestrated Aaa Endovascular Proximal Body Graft, Two Proximal Internal Stent Implanted:Qty: 1 on 04/15/2018 by Evens Hoyt MD [place] [facility] [place]/A: Aorta [employer] 03/20/2021 [id number]-P-[id number]- [id number] / / [id number] Stent Graft [id number] - [id number] - [id number] Implanted:Qty: 1 on 04/15/2018 by Evens Hoyt MD [place] [facility] Right: Renal Artery GETINGE : JULIANNE 11/30/2020 [id number] / [id number] / [id number] Stent Graft [id number] - [id number] - [id number] Implanted:Qty: 1 on 04/15/2018 by Evens Hoyt MD [place] [facility] Right: Renal Artery GETINGE : MAQUET 11/30/2020 [id number] / [id number] / [id number] 28mm X 76mm Distal, 12mm Ipsilateral Leg, Zenith Fenestrated Aaa Endovascular Distal Bifurcated Body Graft Implanted:Qty: 1 on 04/15/2018 by Evens Hoyt MD [place] [facility] N/A: Aorta [employer] 03/20/2021 [id number]-D-[id number] -[id number] / / [id number] Graft Iliac Leg Spirlz [id number] - [id number] Implanted:Qty: 1 on 04/15/2018 by Evens Hoyt MD [place] [facility] Left: Iliac [employer]OOK GROUP 09/14/2020 [id number] / / [id number] Graft Iliac Leg Spirlz [id number] - [id number] Implanted:Qty: 1 on 04/15/2018 by Evens Hoyt MD [place] [facility] Right: Iliac [employer] 11/09/2020 [id number] / / [id number] Transfixation Pin 6mm 294.950 - [id number] Implanted:Qty: 1 on 11/14/2019 by Mayank Friedman MD at OR [facility] Right: Ankle SYNTHES 294.950 / / Description:transfixation pi n Screw Schanz 5.9plz008gm - [id number] Implanted:Qty: 2 on 11/14/2019 by Mayank Friedman MD at OR [facility] Right: Leg Lower SYNTHES 294.786SH A / / Description:self drilling sh antz screws 5.0mm x 200mm Esthela Trauma 2.7 Lock Screw 16mm Implanted:Qty: 2 on 11/27/2019 by Donavan Ramirez Jr., MD [place] [facility] [place]: Ankle ESTHELA : TRAUMA [id number] / / Description:hardware set Esthela Trauma 2.7 Lock Screw 14mm Implanted:Qty: 1 on 11/27/2019 by Donavan Ramirez Jr., MD at [place] [facility] [place]: Ankle ESTHELA : TRAUMA [id number] / / Esthela Trauma 3.5 Screw 14mm Implanted:Qty: 1 on 11/27/2019 by Donavan Ramirez Jr., MD at [place] [facility] Right: Ankle ESTHLEA : TRAUMA [id number] / / Description:hardware set [place] Trauma 3.5 Screw 18mm Implanted:Qty: 1 on 11/27/2019 by Donavan Ramirez Jr., MD at [place] [facility] Right: Ankle ESTHELA : TRAUMA [id number] / / Description:hardware set [place] 3.5 Lockscrew 16mm Implanted:Qty: 1 on 11/27/2019 by Donavan Ramirez Jr., MD at [place] [facility] Right: Ankle [id number] / / Esthela 2.0 Plate Implanted:Qty: 1 on 11/27/2019 by Donavan Ramirez Jr., MD at [place] [facility] Right: Ankle [id number] / / [place] 2.0 Lock Screw Implanted:Qty: 2 on 11/27/2019 by Donavan Ramirez Jr., MD at [place] [facility] [place]: Ankle [id number] / / Esthela 2.0 Lock Screw Implanted:Qty: 1 on 11/27/2019 by Donavan Ramirez Jr., MD at [place] [facility] [place]: Ankle [id number] / / Esthela 2.0 Lock Screw Implanted:Qty: 1 on 11/27/2019 by Donavan Ramirez Jr., MD at [place] [facility] [place]: Ankle [id number] / / Plate Fib 5h - [id number] Implanted:Qty: 1 on 11/27/2019 by Donavan Ramirez Jr., MD at [place] [facility] Right: Ankle ESTHELA : TRAUMA / / Description:hardware set documented as of this encounter Advance Directives Latest Code Status on File Code Status Date Activated Date Inactivated Comments Full Code 11/27/2019 11:36 AM 11/27/2019 4:45 PM This order reflects the patients wishes and were consensually agreed upon. Code Status History Code Status Date Activated Date Inactivated Comments Full Code 11/14/2019 1:19 PM 11/17/2019 7:24 [...] the patient have Health Care Power of Parlor Chaperone? No Full Code 02/17/2019 12:06 PM 02/18/2019 1:09 PM This order reflects the patients wishes and were consensually agreed upon. Question Answer Comments Discussion of Advance Directives occurred with: Not Discussed Does the patient have a Living Will? No Does the patient have Health Care Power of Parlor Chaperone? No Full Code 04/15/2018 12:43 PM 04/16/2018 2:43 PM This order reflects the patients wishes and were consensually agreed upon. Care Teams Home Therapy Clinician Relationship Specialty Start Date End Date Buster Jessica MD [address] [place] [id number] PCP - General Family Medicine 09/11/22 documented as of this encounter
--- OUTSIDE RECORDS SUMMARY | 2023-12-11 18:49 | External Medical Summary | Summary of Care ---
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)*; Ischemic cardiomyopathy; Juxtarenal abdominal aortic aneurysm (AAA) without rupture (HCC); COPD, group D, by GOLD 2017 classification (HCC); Obstructive sleep apnea; Moderate episode of recurrent major depressive disorder (HCC); Tobacco dependence Allergies Active Allergy Reactions Criticality Noted Date Comments Atorvastatin Muscle pain,Unknown 01/18/2015 Medication intolerance, not an allergy Sacubitril-Valsartan Other (Please comment) 09/17/2020 Throat swelled Sacubitril High 07/20/2023 Other Reaction(s): THROAT SWELLING Simvastatin Low 06/23/2022 Other reaction(s): MUSCLE ACHES Valsartan High 07/20/2023 Other Reaction(s): THROAT SWELLING documented as of this encounter (statuses as of 11/01/2023) Medications Medication Sig Dispensed Refills Start Date End Date Status Torsemide 100 MG Oral Tablet (Demadex)Indications :Heart failure, systolic, due to CAD ([facility]) Take 1 tablet by mouth [...] disease) ([facility]),Coronary artery disease involving pit [place] coronary artery of [place] heart without angina pectoris TAKE ONE TABLET BY MOUTH ONCE DAILY 90 Tablet 3 03/13/2023 Active Famotidine 20 MG Oral Tablet (Pepcid) TAKE 1 TABLET BY MOUTH TWICE DAILY (MORNING AND AT BEDTIME) 180 Tablet 3 04/30/2023 Active Spironolactone 25 MG Oral Tablet (Aldactone)Indicatio ns:Coronary artery disease involving [place] coronary artery of [place] heart without angina pectoris,Heart failure, systolic, due to CAD ([facility]),Chronic ischemic heart disease,HTN, goal below 140/90 TAKE ONE TABLET BY MOUTH ONCE DAILY 90 Tablet 3 05/14/2023 Active Losartan Potassium 25 MG Oral Tablet (Cozaar)Indications: PAD (peripheral artery disease) ([facility]),Coronary artery disease involving [place] coronary artery of [place] heart without angina pectoris TAKE ONE [...] heart disease,Tobacco use disorder,Coronary artery disease involving [place] coronary artery of [place] heart without angina pectoris Inject 140 [...] the morning. 90 Tablet 3 08/23/2023 Active Benzonatate 100 MG Oral CapsuleIndications:C OPD, group D, by GOLD 2017 classification ([facility]) Take 1 Capsule by mouth 3 times [...] suspected opioid overdose. Seek immediate medical attention. [email or web address]://[email or web address] [email or web address]/[email or web address]?v=[email or web address] 1 Each 3 09/15/2023 Active Additional Information Patient not taking.Reported on 10/31/2023 Desvenlafaxine Succinate ER 100 MG Oral Tablet Extended Release 24 Hour (Pristiq)Indications :Moderate episode of recurrent major depressive disorder (HCC) Take 1 Tablet by mouth in the morning. 30 Tablet 11 09/21/2023 Active hydrOXYzine HCl 25 MG Oral TabletIndications:In somnia due to medical condition Take 0.5 Tablets by mouth at bedtime as needed for Other (sleep). 30 Tablet 1 10/12/2023 Active Allopurinol 100 MG Oral Tablet (Zyloprim)Indication s:Acute gout of right hand, unspecified cause Take 1 Tablet by mouth in the morning. 30 Tablet 11 10/19/2023 Active metOLazone 2.5 MG Oral Tablet [...] as of this encounter (statuses as of 11/01/2023) Active Problems Problem Noted Date Diagnosed Date [...] fibrillation) 09/22/2021 Atherosclerotic heart diseas e of pit [place] coronary artery with other forms of [...] untreated, BMI 43.71 kg/m, NECK: 21 inches, [place] 01/27, sent for bipap titration study 01/11/11 case per [facility] completed ICD-10 update of inactive term Last Assessment & Plan: Waiting for new bipap machine BMI 35-39 ISOLATED (SEE ACTUAL BMI) 01/17/2010 Overview: Per Obesity Protocol, #19 BPH without obstruction/lower urinary tract symp toms 08/19/2009 Dyslipidemia, goal LDL below 70 07/21/2009 Overview: Per Lipid Taxonomy. documented as of this encounter (statuses as of 11/01/2023) Resolved Problems Problem Noted Date Diagnosed Date [...] 11/22/2020 10/12/2023 Coronary artery disease invo lving pit river coronary artery of [place] heart without angina pectoris 07/06/2020 10/12/2023 [...] 09/23/201305/17 Claudication 05/13/2013 10/12/2023 [employer] Other*[id number] 04/23/2012 09/12/2016 Overview: Study Title: Genomic Markers for Patients with Cardiovascular Disease Project # [id number] Clarifier Operator Helper: Comfort Aviles MD [phone] Impotence of organic origin 02/16/2011 01/10/2018 Shortness [...] as of this encounter (statuses as of 11/01/2023) Immunizations Name Administration Dates Next Due COVID-19 [...] Sign Reading Time Taken Comments Blood Pressure 120/60 11/01/2023 1:47 PM EDT Pulse 87 11/01/2023 1:47 PM EDT Temperature 36.3 C (97.3 F) 11/01/2023 1:47 PM ED T Respiratory Rate - - Oxygen Saturation 96% 11/01/2023 1:47 PM EDT Inhaled Oxygen Concentration - - Weight - - Height - - Body Mass Index - - documented in this encounter Functional Status Functional Status Response Date of Assess ment Are you deaf or do you have serious difficulty h earing? No-TELLER 11/14/2019 Are you blind or do you [...] No 11/14/2019 documented as of this encounter Progress Notes * Clary Eastman [facility] [employer] - 11/01/2023 1:41 PM EDT Telemedicine visit: Yes Patient location: HOME. I was not in a hospital or clinic location. After connecting through televideo, patient was verified with two unique identifiers. Patient (or authorized legal patient accounting representative) was then informed that this was a Telemedicine visit and being conducted confidentially over secure lines. Methods to assure confidentiality were taken. Patient acknowledged consent and understanding of privacy and security of the Telemedicine visit. The patient agreed to participate. [facility] [employer] (JESSICA) documentation: CHW assisted Grisel NUNEZ with telehealth visit Electronically signed by Clary Eastman [facility] [employer] at 11/01/2023 2:07 PM EDT * Grisel Richter CRNP - 11/01/2023 1:30 PM EDT Images from the original note were not included. [facility] Problem Oriented Charting Provider Visit Date: 11/01/2023 Time: 12:11 PM [facility] Sub-Program: No data was found Assessment and Plan #1 Atherosclerotic heart disease of pit [place] coronary artery with other forms of angina pectoris (HCC) (Primary) Assessment & Plan: Rate controlled with digoxin Eliquis and plavix Has statin intolerance #2 Ischemic cardiomyopathy Assessment & Plan: Torsemide- BB and barbara- Metolazone weekly Has DTP in place #3 Juxtarenal abdominal aortic aneurysm (AAA) without rupture (HCC) Assessment & Plan: Stable #4 COPD, group D, by GOLD 2017 classification (HCC) Overview: Per COPD GOLD Classification Assessment & Plan: Continues wixela and nebs PRN #5 Obstructive sleep apnea Overview: 05/31/10 - untreated, BMI 43.71 kg/m, NECK: 21 inches, [place] 6/24, sent for bipap titration study 01/11/11 case per [facility] completed ICD-10 update of inactive term Assessment & Plan: Waiting for new bipap machine #6 Moderate episode of recurrent major depressive disorder (HCC) Assessment & Plan: Controlled with abilify Having increased depressive mood from lack of pain control denies SI #7 Tobacco dependence Assessment & Plan: Continues 1 PPD- not interested in cessation Additional Medical Decision Making: 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 Has DTP . Discussed GA does not manage chronic pain and that he will need to continue with PCP management . Euvolemic on exam - labs reassuring Check-out note: Please help in scheduling the recommended follow up as listed below: UtJaziel AP (see care team) within approx 3 months for Telemedicine Visit Scheduled appointments in the next 60 days: Future Appointments-next 60 days Date/Time Provider Specialty Dept Phone 11/01/2023 1:30 PM Clary Eastman, [facility]; Grisel Richter CRNP [facility] [phone] 11/14/2023 9:10 AM (Arrive by 8:55 AM) Buster Jessica MD Family Medicine [phone] 11/22/2023 10:00 AM Lisa Tenorio RN [facility] [phone] 01/15/2024 10:40 AM (Arrive by 10:25 AM) Clair Quarles, DO Sleep Disorders [phone] 04/22/2024 9:30 AM (Arrive by 9:15 AM) [facility] [phone] 05/19/2024 9:30 AM [address] Radiology [phone] Subjective Subjective Is this a Telemedicine Visit? Yes, Patient location: HOME. I was not in a hospital or clinic location. After connecting through televideo, patient was verified with two unique identifiers. Patient (or authorized legal patient accounting representative) was then informed that this was a Telemedicine visit and being conducted confidentially over secure lines. Methods to assure confidentiality were taken. Patient acknowledged consent and understanding of privacy and security of the Telemedicine visit. The patient agreed to participate. Reason For [facility] Visit: Enrollment Current Concerns: Dago Gunter is a 73 year old male seen today for a [facility] provider visit. Recent utilization- 02/21/23- [facility] ED- shoulder pain- trigger point injection 07/11/23- SI joint injection via OR 09/15/23- [facility] ED- right hand arthritis - oxy and prednisone 10/03-10/04- [facility] Admit - COPD vs CHF 10-08-23 - [facility] - heart cath 10/11- PCP- Hosp follow up visit- Cardiac catheterization revealed coronary artery disease that is hemodynamically insignificant. Prior stents patent. Mild luminal irregularities. 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 Patient not feeling better- spouse concerned with constant fatigue and confusion - hydroxyzine for sleep and oxy increased for pain - labs ordered - DTP initiated- metolazone to 2.5 mg starting tomorrow morning and take 3 times this week for the next 7 days. 3/15- PCP- continues fatigue- having dizziness - metOLazone 2.5 MG Oral Tablet (Zaroxolyn); Take 1 Tablet by mouth once a week. - sleep med referral - new bipap ordered - start allopurinol - GOUT- 10/23 - RN enrollment- living at [facility] until home remodeled- continues depression - continues unsteadiness with ambulation- declined PT referral - does not wear bipap does not like it - 10/24- medrol dose kayleigh for gout of knee 10/28- pulmonary- Repeat CT scan chest shows interval resolution of right lower lobe nodular diseasenoted in August 2023. Other Previously noted scattered parenchymal nodules remain unchange - repeat CT q 3 months - continue wixela 10/30- PCP- hydrocodone for ankle gout- and chronic back pain - kidney function controlled- - increase potassium to 20 mew BID- increase tamsulosin to 0.8mg for BPH- Today's concerns are: Patient sitting at bar in hotel States feels "terrible" can't walk Pain down right leg- approx 1 week ago getting swelling problems of knee arms and knuckles - told it was gout- was told by PCP allopurinol may be cause of increased pain Has w/c for ambulation from bar stool to bathroom - able to stand and pivot Using hydrocodone - has oxy for PRN- has not need in cpl days- Breathing is " little rugged " past few days- getting increased SOB. + cough at baseline- clear phlegm Weight- did not check today- yesterday 260lbs this is baseline 258-262 No increased edema of legs - denies abd distention States not going to go for upcoming pain injection because he is upset they couldn't get him in for6 weeks- BiPap - not using- did not get new machine- willing to try new machine Smoking- 1 PPD cigarettes Etoh- very little No drug use Last neb use 2 days ago Additional Review of Systems Constitutional: Positive for activity change (unable to ambulate requires w/c 2/2 pain) and appetite change (decreased per past few days). Negative for chills and fever. Respiratory: Positive for cough and shortness of breath. Gastrointestinal: Positive for constipation (had bm today after 4 days of no BM). Negative for diarrhea, nausea and vomiting. Genitourinary: Negative for difficulty urinating, dysuria and hematuria. Musculoskeletal: Positive for arthralgias (r leg - worsened over last week- PCP managing). Skin: Negative for rash and wound. Neurological: Negative for speech difficulty, light-headedness and headaches. Psychiatric/Behavioral: Negative for confusion. Objective Objective Vitals: 11/01/23 1347 Temp: 36.3 C (97.3 F) Pulse: 87 SpO2: 96% BP: 120/60 BP Readings from Last 3 Encounters: 11/01/23 120/60 10/31/23 104/66 10/29/23 120/60 Wt Readings from Last 3 Encounters: 10/29/23 117.9 kg (260 lb) 10/24/23 119.7 kg (264 lb) 10/19/23 118.2 kg (260 lb 9.6 oz) Last Weights: Wt Readings from Last 3 Encounters: 10/29/23 117.9 kg (260 lb) 10/24/23 119.7 kg (264 lb) 10/19/23 118.2 kg (260 lb 9.6 oz) Last BPs: BP Readings from Last 4 Encounters: 11/01/23 120/60 10/31/23 104/66 10/29/23 120/60 10/24/23 128/62 Physical Exam Constitutional: General: He is not in acute distress. Appearance: He is obese. Cardiovascular: Rate and Rhythm: Normal rate and regular rhythm. Pulmonary: Effort: Pulmonary effort is normal. Breath sounds: Wheezing present. No rhonchi or rales. Comments: Inspiratory and exp wheezes throughout posterior Diminished bases posterior Musculoskeletal: Right lower leg: No edema. Left lower leg: No edema. Skin: General: Skin is dry. Neurological: Mental Status: He is alert and oriented to person, place, and time. Psychiatric: Mood and Affect: Mood normal. Lab Review: I have reviewed the following results: BMP results Recent Labs Units 10/30/23 1112 10/19/23 1601 10/08/23 0739 SODIUM - [facility] mmol/L 137 138 137 POTASSIUM - [facility] mmol/L 3.2* 3.1* 3.9 CHLORIDE - [facility] mmol/L 88* 91* 98 CO2 - [facility] mmol/L 34* 31 28 CREATININE - [facility] mg/dL 1.2 1.6* 1.3* BUN - [facility] mg/dL 34* 45* 44* Lipid panel results Recent Labs Units 06/06/23 1012 07/12/22 0944 03/09/22 0853 CHOLESTEROL - [facility] mg/dL 150 80 179 LDL CHOLESTEROL (CALCULATED) - [facility] mg/dL -- 21 106 HDL CHOLESTEROL - [facility] mg/dL 33* 36* 32* TRIGLYCERIDES - [facility] mg/dL 250* 114 206* CBC results Recent Labs Units 10/08/23 0739 09/18/23 1235 07/17/23 1451 WBC K/uL 11.59* 8.54 8.59 HGB g/dL 12.0* 12.3* 13.3* HCT % 37.6* 38.1* 41.2 PLT K/uL 228 276 288 HbA1c results Recent Labs Units 06/06/23 1012 03/09/22 0853 HEMOGLOBIN A1C - [facility] % 5.6 5.5 TSH results Recent Labs Units 03/09/22 0853 TSH - [facility] uIU/mL 1.07 Vitamin D results No results for input(s): "25OHVITAMIND" in the last 86800 hours. Medication Review "Bottles Out" medication review performed today and medication list in EMR updated MAYRA Burnett 12:11 PM *Communication sent to PCP (via autofax if non[facility]), [facility] Care Team members,relevant Specialty Care Physicians* documented in this encounter Miscellaneous Notes * ACP (Advance Care Planning) - Grisel Richter CRNP - 11/01/2023 2:05 PM EDT Images from the original note were not included. Advance Care Planning Patient-centered Communication 11/01/2023 Location: Home Individual(s) present for conversation: Patient and Spouse Decisions Synopsis SmartLink Most Recent Value Past ~10 years 11/01/2023 14:04 Decisions CPR decision: Patient chooses CPR 11/01/2023 Patient chooses CPR Intubation/Mechanical Ventilation decision: Patient chooses Intubation/mechanical ventilation short term- if no quality of life remove 11/01/2023 Patient chooses Intubation/mechanical ventilation short term- if no quality of life remove Additional Comments Synopsis SmartLink Most Recent Value Past ~10 years 11/01/2023 14:04 Additional Comments Additional Comments: no AD in place- not interested in doing at this time- 11/01/[address]- not interested in doing at this time- Discerning What Matters Most to the Patient: Synopsis SmartLink Most Recent Value Past ~10 years 11/01/2023 13:57 Discerning What Matters Most to the Patient In their own words, patient's UNDERSTANDING of their illness is: this pain in my leg is my biggest issue. 11/01/2023 this pain in my leg is my biggest issue. The patient's HOPES are: Maintain current functional abilities 11/01/2023 Maintain current functional abilities Source: Content from [employer]osing [employer] Program Aligning Care With What Matters Most: Synopsis SmartVisto Most Recent Value Past ~10 years 11/01/2023 14:04 Aligning Care With What Matters Most Interventions/Choices: CPR;Intubation/mechanical ventilation 11/01/2023 CPR;Intubation/mechanical ventilation Rationale for Decisions Source: Content from [employer] Program MAYRA Burnett * Assessment & Plan Note - Grisel Richter CRNP - 11/01/2023 1:59 PM EDT Associated Problem(s): Tobacco dependence Continues 1 PPD- not interested in cessation * Assessment & Plan Note - Grisel Richter CRNP - 11/01/2023 1:56 PM EDT Associated Problem(s): Moderate episode of recurrent major depressive disorder (HCC) Controlled with abilify Having increased depressive mood from lack of pain control denies SI * Assessment & Plan Note - Grisel Richter CRNP - 11/01/2023 1:56 PM EDT Associated Problem(s): Obstructive sleep apnea Waiting for new bipap machine * Assessment & Plan Note - Grisel Richter CRNP - 11/01/2023 1:55 PM EDT Associated Problem(s): COPD, group D, by GOLD 2017 classification (HCC) Continues wixela and nebs PRN * Assessment & Plan Note - Grisel Richter CRNP - 11/01/2023 1:54 PM EDT Associated Problem(s): Juxtarenal abdominal aortic aneurysm (AAA) without rupture (HCC) Stable * Assessment & Plan Note - Grisel Richter CRNP - 11/01/2023 1:54 PM EDT Associated Problem(s): Cardiomyopathy (HCC) Torsemide- BB and barbara- Metolazone weekly Has DTP in place * Assessment & Plan Note - Grisel Richter CRNP - 11/01/2023 1:53 PM EDT Associated Problem(s): Atherosclerotic heart disease of [place] coronary artery with other forms of angina pectoris (HCC) Rate controlled with digoxin Eliquis and plavix Has statin intolerance documented in this encounter Plan of Treatment Upcoming Encounters Date Type Department Care Team (Latest Contact Info) Description 11/14/2023 9:10 AM EDT Office Visit [address] [address] Buster Jessica MD [address] [place] [address] [place] [address] 11/21/2023 10:55 AM EDT Hospital Encounter [facility], Operating Room [facility] [address] [place] [phone] Freeman Beaulieu, DO [address] [place] [phone] 11/21/2023 10:55 AM EDT - 11/21/2023 11:20 AM EDT Surgery OR [facility], Operating Room [facility] [address] [place] [phone] Freeman Beaulieu, DO [address] [place] [phone] INJECTION SACROILIAC JOINT 11/22/2023 10:00 AM EDT Home Visit [facility] [address] [place] [address] Lisa Tenorio RN [address] [place] [address] 01/15/2024 10:40 AM EDT Office Visit [facility] [address] [place] [phone] Clair Quarles, DO [address] [place] [address] 04/22/2024 9:30 AM EDT [facility] [address] [place] [address] [facility] [address] [place] [address] 05/19/2024 9:30 AM EDT Appointment Radiology, [address] [address] Scheduled Procedures Name Priority Associated [...] exists DISCUSS TOBACCO CESSATION (REFER TO SMARTSET #2224) 06/02/2023 06/02/2022, 07/21/2020 Depression, Most Recent Score >= 10 (will fire each visit until score < 10) 08/30/2023 08/29/2023 GFR 10/29/2024 10/30/2023, 10/04, 10/08/2023, Additional history exists O2 ASSESSMENT COMPLETED IN PAST YEAR FOR COPD 10/31/2024 11/01/2023 Albumin/Creatinine Ratio 06/06/2026 06/06/2023 COLONOSCOPY-EVERY 5 YRS AGES 18-100 10/28/2027 10/27/2022, 04/21/2014, 04/21/2014, Additional history exists DTaP,Tdap,and Td Vaccines (3 - Td or Tdap) 04/13/2030 04/13/2020 (Declined), 08/19/2009 Alpha-1 Antitrypsin Completed 02/19/2020 Pneumococcal Vaccine: 65+ Years Completed 05/27/2020, 12/02/2018, 09/10/2008 LUNG CANCER SCREENING - USE SMARTSET 53030 Completed 08/22/2022, 05/22/2022, 02/21/2021, Additional history exists [...] this encounter Medical Devices Implanted Type Area Edge Blacker Device Identifier Shelf Expiration Date Model / Serial / Lot 32mm X 109mm, Zenith Fenestrated Aaa Endovascular Proximal Body Graft, Two Proximal Internal Stent Implanted:Qty: 1 on 04/15/2018 by Evens Hoyt MD at [place] [facility] N/A: Aorta [employer] 03/20/2021 ZFKEDAR-P-2- [id number] / / [id number] Stent Graft [id number] - [id number] - [id number] Implanted:Qty: 1 on 04/15/2018 by Evens Hoyt MD at [place] [facility] Right: Renal Artery GETINGE : MAQUET 11/30/2020 [id number] / [id number] / [id number] Stent Graft [id number] - [id number] - [id number] Implanted:Qty: 1 on 04/15/2018 by Evens Hoyt MD at [place] [facility] Right: Renal Artery GETINGE : MAQUET 11/30/2020 [id number] / [id number] / [id number] 28mm X 76mm Distal, 12mm Ipsilateral Leg, Zenith Fenestrated Aaa Endovascular Distal Bifurcated Body Graft Implanted:Qty: 1 on 04/15/2018 by Evens Hoyt MD at [place] [facility] N/A: Aorta [employer] 03/20/2021 ZFKEDAR-D-12 -28-76-C / / [id number] Graft Iliac Leg Spirlz [id number] - [id number] Implanted:Qty: 1 on 04/15/2018 by Evens Hoyt MD at [place] [facility] Left: Iliac [employer] 09/14/2020 [id number] / / [id number] Graft Iliac Leg Spirlz [id number] - [id number] Implanted:Qty: 1 on 04/15/2018 by Evens Hoyt MD at [place] [facility] Right: Iliac [employer] 11/09/2020 [id number] / / [id number] Transfixation Pin 6mm 294.950 - [id number] Implanted:Qty: 1 on 11/14/2019 by Mayank Friedman MD at OR [facility] Right: Ankle SYNTHES 294.950 / / Description:transfixation pi n Screw Schanz [id number] - [id number] Implanted:Qty: 2 on 11/14/2019 by Mayank Friedman MD at OR [facility] Right: Leg Lower SYNTHES 294.786SH A / / Description:self drilling sh antz screws 5.0mm x 200mm Esthela Trauma 2.7 Lock Screw 16mm Implanted:Qty: 2 on 11/27/2019 by Donavan Ramirez Jr., MD at [place] [facility] Right: Ankle ESTHELA : TRAUMA [id number] / / Description:hardware set Esthela Trauma 2.7 Lock Screw 14mm Implanted:Qty: 1 on 11/27/2019 by Donavan Ramirez Jr., MD at [place] [facility] Right: Ankle ESTHELA : TRAUMA [id number] / / [place] Trauma 3.5 Screw 14mm Implanted:Qty: 1 on 11/27/2019 by Donavan Ramirez Jr., MD at [place] [facility] Right: Ankle ESTHELA : TRAUMA [id number] / / Description:hardware set [place] Trauma 3.5 Screw 18mm Implanted:Qty: 1 on 11/27/2019 by Donavan Ramirez Jr., MD at [place] [facility] Right: Ankle ESTHELA : TRAUMA [id number] / / Description:hardware set Esthela 3.5 Lockscrew 16mm Implanted:Qty: 1 on 11/27/2019 by Donavan Ramirez Jr., MD at [place] [facility] Right: Ankle [id number] / / [place] 2.0 Plate Implanted:Qty: 1 on 11/27/2019 by Donavan Ramirez Jr., MD at [place] [facility] Right: Ankle [id number] / / Esthela 2.0 Lock Screw Implanted:Qty: 2 on 11/27/2019 by Donavan Ramirez Jr., MD at [place] [facility] Right: Ankle [id number] / / Esthela 2.0 Lock Screw Implanted:Qty: 1 on 11/27/2019 by Donavan Ramirez Jr., MD at [place] [facility] Right: Ankle [id number] / / Esthela 2.0 Lock Screw Implanted:Qty: 1 on 11/27/2019 by Donavan Ramirez Jr., MD at [place] [facility] Right: Ankle [id number] / / Plate Fib 5h - [id number] Implanted:Qty: 1 on 11/27/2019 by Donavan Ramirez Jr., MD at [facility] [facility] Right: Ankle ESTHELA : TRAUMA / / Description:hardware set documented as of this encounter Visit Diagnoses Diagnosis Atherosclerotic heart disease of [place] coronary artery with other forms of angina pectoris (HCC)- Primary Ischemic cardiomyopathy Other specified forms of chronic ischemic heart disease Juxtarenal abdominal aortic aneurysm (AAA) without rupture (HCC) COPD, group D, by GOLD 2017 classification (HCC) Obstructive sleep apnea Obstructive sleep apnea (adult) (pediatric) Moderate episode of recurrent major depressive disorder (HCC) Tobacco dependence Tobacco use disorder Inflammation of sacroiliac joint (HCC) Sacroiliitis, not [...] the patient have Health Care Power of Rehab Trainer? No Full Code 02/17/2019 12:06 PM 02/18/2019 1:09 PM This order reflects the patients wishes and were consensually agreed upon. Question Answer Comments Discussion of Advance Directives occurred with: Not Discussed Does the patient have a Living Will? No Does the patient have Health Care Power of Rehab Trainer? No Full Code 04/15/2018 12:43 PM 04/16/2018 2:43 PM This order reflects the patients wishes and were consensually agreed upon. Care Teams Land Acquisition Specialist Relationship Specialty Start Date End Date Buster Jessica MD [address] [place] [address] PCP - General Family Medicine 09/11/22 documented as of this encounter
--- OUTSIDE RECORDS SUMMARY | 2023-12-11 18:49 | External Medical Summary | Summary of Care ---
Author Name Unknown Organization [facility] Address [address] [place] [address] Phone [phone] Care Team Providers Care Performance Improvement Director Name Role Phone Buster Jessica MD Primary Care P rovider Reason for Referral * Medication Prior Authorization - Pending Review Specialty Diagnoses / Procedures Referred By Contac t Referred To Contact Diagnoses Chronic bilateral low back pain without sciatica Acute drug-induced gout of right ankle Buster Jessica MD [address] [place] [phone] Referral ID Status Reason Start Date Expiration Date V isits Requested Visits Authorized [id number] Pending Review 999 999 Reason for Visit * Reason Comments Status Check Lab work completed. Encounter Details Date Type Department Care Team ([facility] st Contact Info) Description 10/31/2023 11:10 AM EDT Office Visit [address] [phone] Buster Jessica MD [address] [place] [phone] Ischemic cardiomyopathy*; Acute drug-induced gout of right ankle; Olecranon bursitis, right elbow; Chronic bilateral low back pain without sciatica; Hyperglycemia; Benign prostatic hyperplasia (BPH) with post-void dribbling; HTN, goal below 140/90; Paroxysmal atrial fibrillation ([facility]); LBBB (left bundle branch block); PAF (paroxysmal atrial fibrillation) ([facility]) Allergies Active Allergy Reactions Criticality Noted Date [...] (Demadex)Indication s:Heart failure, systolic, due to CAD ([facility]) Take 1 tablet by mouth [...] Oral Tablet (pLAVix)Indications :PAD (peripheral artery disease) ([facility]),Coronary artery disease involving the [place] coronary artery of [place] heart without angina pectoris TAKE ONE TABLET BY MOUTH ONCE DAILY 90 Tablet 3 3 Active Famotidine 20 MG Oral Tablet (Pepcid) TAKE 1 TABLET BY MOUTH TWICE DAILY (MORNING AND AT BEDTIME) 180 Tablet 3 3 Active Spironolactone 25 MG Oral Tablet (Aldactone)Indicati ons:Coronary artery disease involving the [place] coronary artery of [place] heart without angina pectoris,Heart failure, systolic, due to CAD ([facility]),Chronic ischemic heart disease,HTN, goal below 140/90 TAKE ONE TABLET BY MOUTH ONCE DAILY 90 Tablet 3 3 Active Losartan Potassium 25 MG Oral Tablet (Cozaar)Indications :PAD (peripheral artery disease) ([facility]),Coronary artery disease involving the [place] coronary artery of [place] heart without angina pectoris TAKE ONE TABLET [...] failure, systolic, due to CAD ([facility]),Dyslipidemia, goal LDL below 70,Chronic ischemic heart disease,Tobacco use disorder,Coronary artery disease involving the [place] coronary artery of [place] heart without angina pectoris Inject 140 mg (1 pen) under the skin every 14 days. 6 mL 3 3 Active Metoprolol Succinate ER 50 MG Oral Tablet Extended Release 24 Hour (Toprol XL)Indications:Pers istent atrial fibrillation ([facility]),Acute on chronic systolic (congestive) heart failure ([facility]) One tablet by mouth daily at bedtime, this is in addition to the previous prescription for 100 milligrams daily in the morning. 90 Tablet 3 4 Active Digoxin 125 MCG Oral Tablet (Lanoxin) Take 1 Tablet by mouth in the morning. 90 Tablet 3 4 Active Benzonatate 100 MG Oral CapsuleIndications: COPD, group D, by GOLD 2017 classification ([facility]) Take 1 Capsule by mouth 3 times a day as needed for Cough. 30 Capsule 3 4 Active ARIPiprazole 2 MG Oral Tablet (Abilify)Indication s:Moderate episode of recurrent major depressive disorder ([facility]) Take 1 Tablet by mouth in the morning. 30 Tablet 1 4 Active Naloxone HCl 4 MG/0.1ML Nasal Liquid (Narcan Nasal) Administer 1 spray into 1 nostril for suspected opioid overdose. Seek immediate medical attention. [email or web address]://www.youtu [email or web address]/watch?v=[email or web address] 1 Each 3 4 Active Additional Information Patient not taking.Reported on 10/31/2023 Desvenlafaxine Succinate ER 100 MG Oral Tablet Extended Release 24 Hour (Pristiq)Indication s:Moderate episode of recurrent major depressive disorder (HCC) Take 1 Tablet by mouth in the morning. 30 Tablet 4 Active hydrOXYzine HCl 25 MG Oral TabletIndications:I nsomnia due to medical condition Take 0.5 Tablets by mouth at bedtime as needed for Other (sleep). 30 Tablet 4 Active Additional Information Patient not taking.Reported on 10/31/2023 Allopurinol 100 MG Oral Tablet (Zyloprim)Indicatio ns:Acute gout of right hand, unspecified cause Take 1 Tablet by mouth in the morning. 30 Tablet 4 Active metOLazone 2.5 MG Oral Tablet (Zaroxolyn)Indicati ons:Ischemic cardiomyopathy Take 1 Tablet by mouth once a week. take 30 minutes prior to torsemide 4 Tablet 5 4 Active Fluticasone-Salmete rol 250-50 MCG/ACT Inhalation Aerosol Powder Breath Activated (Wixela Inhub)Indications:C OPD, group D, by GOLD 2017 classification ([facility]) Inhale 1 Puff by mouth in the morning and 1 Puff before bedtime. 180 Each 4 Active Albuterol Sulfate (2.5 MG/3ML) 0.083% Inhalation Nebulization Solution (Proventil)Indicati ons:COPD, group D, by GOLD 2017 classification ([facility]) Inhale 1 Vial via nebulizer every 4 hours as needed for Wheezing. 75 mL 4 Active Eliquis 5 MG Oral Tablet (Apixaban)Indicatio ns:Persistent atrial fibrillation (HCC) TAKE 1 TABLET BY MOUTH TWICE DAILY 60 Tablet 4 Active Tamsulosin HCl 0.4 MG Oral Capsule (Flomax)Indications :Benign prostatic hyperplasia (BPH) with post-void dribbling Take 2 Capsules by mouth every evening. 180 Capsule 4 Active Potassium Chloride ER 10 MEQ Oral Tablet Extended ReleaseIndications: HTN, goal below 140/90,Paroxysmal atrial fibrillation (HCC),LBBB (left bundle branch block) Take 2 Tablets by mouth in the morning and 2 Tablets before bedtime. 360 Tablet 4 Active HYDROcodone-Acetami nophen 7.5-325 MG Oral TabletIndications:C hronic bilateral low back pain without sciatica,Acute drug-induced gout of right ankle Take 1 Tablet by mouth every 6 hours as needed for Pain, Severe. 30 Tablet 0 4 Active Potassium Chloride ER 10 MEQ Oral Tablet Extended ReleaseIndications: HTN, goal below 140/90,Paroxysmal atrial fibrillation (HCC),LBBB (left bundle branch block) TAKE 2 TABLETS BY MOUTH ONCE DAILY IN THE MORNING AND ONE TAB IN THE EVENING 270 Tablet 3 3 10/31/19 24 Discontinu ed(Refill) Tamsulosin HCl 0.4 MG Oral Capsule (Flomax) TAKE 1 CAPSULE BY MOUTH ONCE DAILY IN THE MORNING 90 Capsule 3 4 10/31/19 24 Discontinu ed(Refill) methylPREDNISolone 4 MG Oral Tablet Therapy Pack (Medrol Dosepack) Take as per instructions on package. 21 Each 0 4 10/31/19 24 Discontinu ed(Patient preference /discontin uation) oxyCODONE-Acetamino phen 10-325 MG Oral TabletIndications:C hronic bilateral low back pain without sciatica Take 1 Tablet by mouth every 6 hours as needed for Pain, Severe. 30 Tablet 0 4 10/31/19 24 Discontinu ed(Patient preference /discontin uation) documented as of this encounter (statuses as [...] fibrillation) 09/22/2021 Atherosclerotic heart diseas e of the [place] coronary artery with other forms of angina [...] untreated, BMI 43.71 kg/m, NECK: 21 inches, [place] 6/24, sent for bipap titration study 01/11/11 case per [facility] completed ICD-10 update of inactive term BMI [...] 11/22/2020 10/12/2023 Coronary artery disease invo lving the [place] coronary artery of [place] heart without angina pectoris 07/06/2020 10/12/2023 Chronic [...] 09/23/201305/17 Claudication 05/13/2013 10/12/2023 [employer] Other*[id number] 04/23/2012 09/12/2016 Overview: Study Title: Genomic Markers for Patients with Cardiovascular Disease Project # [id number] Lineman A Class: Comfort Aviles MD [phone] Impotence of organic origin 02/16/2011 01/10/2018 Shortness [...] Day Cigarettes 1 52 Smokeless Tobacco: Never Tobacco Cessation:Ready to Q uit: Not Asked; Counseling Given: Not Answered Comments:pack per day.10/29/23 Alcohol Use Standard Drinks/Week Comments Yes 0 [...] Sign Reading Time Taken Comments Blood Pressure 104/66 10/31/2023 10:58 AM EDT Pulse 88 10/31/2023 10:58 AM EDT Temperature 36.8 C (98.2 F) 10/31/2023 10:58 AM E DT Respiratory Rate 20 10/31/2023 10:58 AM EDT Oxygen Saturation 94% 10/31/2023 10:58 AM EDT Inhaled Oxygen Concentration - - Weight - - Height - - Body Mass Index - - documented in this encounter Functional Status Functional Status Response Date of Assess ment Are you deaf or do you have serious difficulty h earing? No-FORT MCDERMITT 11/14/2019 Are you blind or do you [...] Progress Notes * Buster Jessica MD - 10/31/2023 11:12 AM EDT Subjective: Dago Gunter is a 73 year old male. Chief Complaint Patient presents with Status Check Lab work completed. HPI: Patient is in the office for 2 week follow-up of chronic problems. Regarding ischemic cardiomyopathy: Reports he is still does not feel good. Denies any chest pain but continues to have dyspnea on exertion. Continues to smoke 1 pack of cigarettes daily. He does not want to quit smoking. All he wants to do is "sleep". Feels exhausted. Denies palpitations or skippedbeats. Was able to start allopurinol 100 mg daily. C/o R lateral ankle pain since last week. Denies any injury or falls. Also complains of right elbow swelling. Denies redness or warmth. Oxycodone 5 mg doesnot seem to help him. Needs RF on hydrocodone. He finished prednisone yesterday. Taking losartan 25 mg daily and metoprolol succinate 100 mg daily. Also takes digoxin 125 mcg daily. Anticoagulated with Plavix and Eliquis. Taking torsemide 100 mg every morning and 100 mg every afternoon on day, Wednesdays and Fridays. Also taking spironolactone 25 mg daily and metolazone 2.5 mg once a week on Fridays. Using [id number] mEq in the morning and 10 mEq in the evening. Weight down to 260# 2 days ago. Serum creatinine 1.2, GFR has improved to 62. Potassium is low at 3.2. Glucose is elevated at 237. Last hemoglobin A1c was 5.6% on 06/06/2023. Hemoglobin was low at 12.0 3 weeks ago, therefore his possible that the hemoglobin A1c done in June was falsely low due to presence of anemia. Reports he is 1not urinating well while taking tamsulosin 0.4 mg every day. Complains of postvoid dribbling. Has to go frequently. On Repatha every 2 weeks. PMH: Patient Active Problem List Diagnosis Code Dyslipidemia, goal LDL below 70 E78.5 BPH without obstruction/lower urinary tract symptoms N40.0 BMI 35-39 ISOLATED (SEE ACTUAL BMI) E66.9 Obstructive sleep apnea G47.33 Hx of nonmelanoma skin cancer Z85.828 H/O dysplastic nevus Z86.018 Thoracic aortic aneurysm without rupture ([facility]) I71.20 Basal cell carcinoma (BCC) of right ala nasi C44.311 Squamous cell carcinoma of ala nasi C44.321 COPD, group D, by GOLD 2017 classification ([facility]) J44.9 Basal cell carcinoma (BCC) of right nasal tip C44.311 Closed fracture of right ankle with routine healing S82.891D PVD (peripheral vascular disease) ([facility]) I73.9 Controlled substance agreement signed Z79.899 LBBB (left bundle branch block) I44.7 Biventricular ICD (implantable cardioverter-defibrillator) in place Z95.810 Tobacco dependence F17.200 Adjustment disorder with anxious mood F43.22 Pulmonary emphysema ([facility]) J43.9 PAF (paroxysmal atrial fibrillation) ([facility]) I48.0 Atherosclerotic heart disease of the [place] coronary artery with other forms of angina pectoris ([facility]) I25.118 Moderate episode of recurrent major depressive disorder ([facility]) F33.1 Elevated uric acid in blood E79.0 Right lower lobe pulmonary nodule R91.1 Presence of coronary angioplasty implant and graft Z95.5 Chronic bilateral low back pain without sciatica M54.50, G89.29 Juxtarenal abdominal aortic aneurysm (AAA) without rupture ([facility]) I71.42 Other persistent atrial fibrillation (HCC) I48.19 Alcohol consumption binge drinking F10.10 Claustrophobia F40.240 Positive colorectal cancer screening using Cologuard test R19.5 Chronic systolic congestive heart failure (HCC) I50.22 Cardiomyopathy (HCC) I42.9 Neuropathic pain of both feet G57.93 Hypertension I10 Difficulty using continuous positive airway pressure (CPAP) device Z78.9 Current Outpatient Medications Medication Sig Dispense Refill [...] mouth in the morning. 90 Tablet 3 Benzonatate 100 MG Oral Capsule Take 1 Capsule by mouth 3 times a day as needed for Cough. 30 Capsule 3 ARIPiprazole 2 MG Oral Tablet (Abilify) Take 1 Tablet by mouth in the morning. 30 Tablet 1 Desvenlafaxine Succinate ER 100 MG Oral Tablet Extended Release 24 Hour (Pristiq) Take 1 Tablet by mouth in the morning. 30 Tablet 11 Allopurinol 100 MG Oral Tablet (Zyloprim) Take [...] 2 Tablets before bedtime. 360 Tablet 1 HYDROcodone-Acetaminophen 7.5-325 MG Oral Tablet Take 1 Tablet by mouth every 6 hours as needed forPain, Severe. 30 Tablet 0 Naloxone HCl 4 MG/0.1ML Nasal Liquid (Narcan Nasal) Administer 1 spray into 1 nostril for suspectedopioid overdose. Seek immediate medical attention. [email or web address]://[email or web address]/[email or web address] (Patient not taking: Reported on 10/31/2023) 1 Each 3 hydrOXYzine HCl 25 MG Oral Tablet Take 0.5 Tablets by mouth at bedtime as needed for Other (sleep).(Patient not taking: Reported on 10/31/2023) 30 Tablet 1 No current facility-administered medications for this visit. Past Medical History: Diagnosis Date Anxiety state claustraphobia Benign neoplasm of colon Closed fracture of right ankle with routine healing 11/15/2019 Depressive disorder, not elsewhere classified Dyslipidemia, goal to be determined HTN, goal to be determined Malignant melanoma of skin (HCC) Melanoma of Skin Obstructive sleep apnea (adult) (pediatric) severe with hypoxia Sleep apnea, obstructive Past Surgical History: Procedure Laterality Date APPLY BONE FIXATION DEVICE,UNIPLANE Right 11/14/2019 APPLICATION OF EXTERNAL FIXATOR UNIPLANE performed by Mayank Friedman MD at OR [facility] BIMALLEOLAR ANKLE FX W/ FIXATION Right 11/27/2019 OPEN TREATMENT BIMALLEOLAR ANKLE FRACTURE performed by Donavan Ramirez Jr., [place] [facility] [place]ONOSCOPY THRU STOMA, W/BIOPSY 03/06/2011 fair prep, polyps x4, path shows adenomatous tissue repeat in 3 years COLONOSCOPY, DIAGNOSTIC (RECTUM) 04/21/2014 hyperplastic polyp, multiple cecal AVM's, repeat 5 yrs/COLONOSCOPY FLEXIBLE PROXIMAL DIAGNOSTIC performed by Jake Montoya MD at ENDOSCOPY [facility] COLONOSCOPY, DIAGNOSTIC (RECTUM) N/A 10/27/2022 [facility], Colonoscopy, multi polyps in cecum, transverse, recto-sigmoid / biopsies benign adenomatous polyp and serrated adenomatous polyps / 3 year recall CORONARY ANGIOGRAPHY W/LEFT HEART CATH Right 02/17/2019 CORONARY ANGIOGRAPHY W/LEFT HEART CATH performed by Winston Mckeon MD at [facility] CORONARY ANGIOGRAPHY W/LEFT HEART CATH Right 10/20/2020 CORONARY ANGIOGRAPHY W/LEFT HEART CATH performed by Winston Mckeon MD at [facility] CORONARY ANGIOGRAPHY W/LEFT HEART CATH Right 10/08/2023 CORONARY ANGIOGRAPHY W/LEFT HEART CATH performed by Thea Wilkes MD at [facility] CORONARY ANGIOGRAPHY W/RIGHT+LEFT CATH 04/23/2012 CORONARY ANGIOGRAPHY W/RIGHT+LEFT CATH performed by Donavan Egan MD at [facility] ENDOVASCULAR REPAIR AORTA/INFRARENAL 2 PROSTHESES N/A 04/15/2018 fenestrated endovascular aortic aneurysm repair, 2 vessel fenestrations (bilateral renal) and SMA scallop performed by Evens Hoyt MD at [facility] INTRAVASCULAR STENT, PERC, FIRST VESSEL OPEN FEMORAL ARTERY EXPOSURE FOR ENDOVASCULAR PROSTHESIS, UNILAT Bilateral 04/15/2018 bilateral femoral artery cutdowns performed by Evens Hoyt MD at [facility] REMOVE BONE FIXATION DEVICE Right 11/27/2019 REMOVAL OF EXTERNAL FIXATION performed by Donavan Ramirez Jr., MD at [facility] SACROILIAC JOINT INJECT W/GUIDANCE 02/14/2023 INJECTION SACROILIAC JOINT performed by Rajinder Corado DO at [facility] SACROILIAC JOINT INJECT W/GUIDANCE 07/11/2023 INJECTION SACROILIAC JOINT performed by Rajinder Corado DO at [facility] Review of patient's allergies indicates: Allergen Reactions Sacubitril Other Reaction(s): THROAT SWELLING Valsartan Other Reaction(s): THROAT SWELLING Atorvastatin Muscle pain and Unknown Medication intolerance, not an allergy Entresto [Sacubitril-Valsartan] Other (Please comment) Throat swelled Simvastatin Other reaction(s): MUSCLE ACHES Family History Problem Relation Age of Onset Cancer Mother basal cell Cancer Father throat Other (SLEEP) Sister BRIAN Family Status Relation Status Mo Fa at age 67 Sis Alive Carmen Alive Carmen Alive Social History Socioeconomic History Marital status: Spouse name: Ganesh Number of children: 2 Years of education: Not on file Highest education level: Not on file Occupational History 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 Employer: [employer] 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 Tobacco Use Smoking status: Every Day Current packs/day: 1.00 Average packs/day: 1 pack/day for 52.0 years (52.0 ttl pk-yrs) Types: Cigarettes Smokeless tobacco: Never Tobacco comments: pack per day.10/29/23 Vaping Use Vaping Use: Never used Substance and Sexual Activity Alcohol use: Yes Comment: rare Drug use: No Sexual activity: Yes Partners: Female Other Topics Concern Not on file Social History Narrative [employer] 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 Constitutional: General: He is not in acute distress. Appearance: He is morbidly obese. Comments: Visibly frustrated HENT: Mouth/Throat: Mouth: Mucous membranes are moist. Eyes: Conjunctiva/sclera: Conjunctivae normal. Cardiovascular: Rate and Rhythm: Normal rate. Rhythm irregular. Pulmonary: Effort: Pulmonary effort is normal. No respiratory distress. Breath sounds: Normal breath sounds. No wheezing, rhonchi or rales. Neurological: Mental Status: He is alert. Psychiatric: Mood and Affect: Affect is blunt and angry. Speech: Speech normal. Behavior: Behavior is slowed. Behavior is not agitated, aggressive or hyperactive. Behavior is cooperative. ASSESSMENT: Ischemic cardiomyopathy (Primary) Acute drug-induced gout of right ankle - HYDROcodone-Acetaminophen 7.5-325 MG Oral Tablet; Take 1 Tablet by mouth every 6 hours as needed for Pain, Severe. Olecranon bursitis, right elbow Chronic bilateral low back pain without sciatica - HYDROcodone-Acetaminophen 7.5-325 MG Oral Tablet; Take 1 Tablet by mouth every 6 hours as needed for Pain, Severe. Hyperglycemia Benign prostatic hyperplasia (BPH) with post-void dribbling - Tamsulosin HCl 0.4 MG Oral Capsule (Flomax); Take 2 Capsules by mouth every evening. HTN, goal below 140/90 - Potassium Chloride ER 10 MEQ Oral Tablet Extended Release; Take 2 Tablets by mouth in the morningand 2 Tablets before bedtime. Paroxysmal atrial fibrillation (HCC) - Potassium Chloride ER 10 MEQ Oral Tablet Extended Release; Take 2 Tablets by mouth in the morningand 2 Tablets before bedtime. LBBB (left bundle branch block) - Potassium Chloride ER 10 MEQ Oral Tablet Extended Release; Take 2 Tablets by mouth in the morningand 2 Tablets before bedtime. PAF (paroxysmal atrial fibrillation) (HCC) Kidney function has improved. BPH not well controlled. Increase tamsulosin to 0.8 mg every evening. Appropriate medication use and potential medication side effects discussed with patient. Increase potassium chloride to 20 mEq twice daily. Continue other medications Refilled hydrocodone 7.5/325 every 6 hours as needed for severe pain. Continue allopurinol 100 mg daily. Follow Up: Return in about 2 weeks (around 11/14/2023), or if symptoms worsen or fail to improve, for f/u chronic problems. | For: f/u chronic problems Buster Anguiano MD documented in this encounter Nursing Notes * Home Munoz LPN - 10/31/2023 10:55 AM EDT The patient has been properly identified by confirmation of name and date of . Chief Complaint Patient presents with Status Check Lab work completed. Has question regarding Cozaar. documented in this encounter Plan of Treatment Upcoming Encounters Date Type Department Care Team (Late st Contact Info) Description 11/01/2023 1:30 PM EDT Telemedicine [facility] [place] [address] [place], [place] [phone] Grisel Richter CRNP [address] [place] [address] [address], Community Health Avionics Technician [address] [facility] [place] [address] 11/21/2023 10:55 AM EDT Hospital Encounter [facility], Operating Room [facility] [address] [place] [phone] Freeman Beaulieu, DO [address] [place] [phone] 11/21/2023 10:55 AM EDT - 11/21/2023 11:20 AM EDT Surgery OR [facility], Operating Room [facility] [address] [place] [phone] Freeman Beaulieu, DO [address] [place] [phone] INJECTION SACROILIAC JOINT 11/22/2023 10:00 AM EDT Home Visit [facility] [place] [address] [place] [address] Lisa Tenorio RN [address] [place] [address] 01/15/2024 10:40 AM EDT Office Visit [facility] [address] [place] [phone] Clair Quarles, DO [address] [place] [address] 04/22/2024 9:30 AM EDT Cardiac Studies Cardiology, [facility] [address] [place] [address] [facility] [address] [place] [address] 05/19/2024 9:30 AM EDT Appointment Radiology, [address] [phone] Scheduled Procedures Name Priority Associated [...] exists DISCUSS TOBACCO CESSATION (REFER TO SMARTSET #4799) 06/02/2023 06/02/2022, 07/21/2020 Depression, Most Recent Score [...] 09/10/2008 LUNG CANCER SCREENING - USE SMARTSET 33920 Completed 08/22/2022, 05/22/2022, 02/21/2021, Additional history exists [...] this encounter Medical Devices Implanted Type Area Primer Inserting Machine Adjuster Device Identifier Shelf Expiration Date Model / Serial / Lot 32mm X 109mm, Zenith Fenestrated Aaa Endovascular Proximal Body Graft, Two Proximal Internal Stent Implanted:Qty: 1 on 04/15/2018 by Evens Hoyt [place] [facility] N/A: Aorta [employer] 03/20/2021 LISA-P-2- [id number] / / [id number] Stent Graft [id number] - [id number] - [id number] Implanted:Qty: 1 on 04/15/2018 by Evens Hoyt MD [place] [facility] Right: Renal Artery GETINGE : MAQUET 11/30/2020 [id number] / [id number] / [id number] Stent Graft [id number] - [id number] - [id number] Implanted:Qty: 1 on 04/15/2018 by Evens Hoyt MD [place] [facility] Right: Renal Artery GETINGE : MAQUET 11/30/2020 [id number] / [id number] / [id number] 28mm X 76mm Distal, 12mm Ipsilateral Leg, Zenith Fenestrated Aaa Endovascular Distal Bifurcated Body Graft Implanted:Qty: 1 on 04/15/2018 by Evens Hoyt MD [place] [facility] N/A: Aorta [employer] 03/20/2021 LISA-D-12 -28-76-[id number] / / [id number] Graft Iliac Leg Spirlz [id number] - [id number] Implanted:Qty: 1 on 04/15/2018 by Evens Hoyt MD [place] [facility] Left: Iliac [employer] 09/14/2020 [id number] / / [id number] Graft Iliac Leg Spirlz [id number] - [id number] Implanted:Qty: 1 on 04/15/2018 by Evens Hoyt MD at OR [facility] [place]: Iliac [employer] 11/09/2020 [id number] / / [id number] Transfixation Pin 6mm 294.950 - [id number] Implanted:Qty: 1 on 11/14/2019 by Mayank Friedman MD at OR [facility] Right: Ankle SYNTHES 294.950 / / Description:transfixation pi n Screw Schanz 5.9bax325ev - [id number] Implanted:Qty: 2 on 11/14/2019 by Mayank Friedman MD at OR [facility] Right: Leg Lower SYNTHES 294.786SH A / / Description:self drilling sh antz screws 5.0mm x 200mm [place] [employer] 2.7 Lock Screw 16mm Implanted:Qty: 2 on 11/27/2019 by Donavan Ramirez Jr., MD [place] [facility] [place]: Ankle ESTHELA : TRAUMA [id number] / / Description:hardware set [place] Trauma 2.7 Lock Screw 14mm Implanted:Qty: 1 on 11/27/2019 by Donavan Ramirez Jr., MD [place] [facility] [place]: Ankle ESTHELA : TRAUMA [id number] / / [place] Trauma 3.5 Screw 14mm Implanted:Qty: 1 on 11/27/2019 by Donavan Ramirez Jr., MD [place] [facility] [place]: Ankle ESTHELA : TRAUMA [id number] / / Description:hardware set Esthel[place] Trauma 3.5 Screw 18mm Implanted:Qty: 1 on 11/27/2019 by Donavan Ramirez Jr., MD [place] [facility] [place]: Ankle ESTHELA : TRAUMA [id number] / / Description:hardware set Esthela 3.5 Lockscrew 16mm Implanted:Qty: 1 on 11/27/2019 by Donavan Ramirez Jr., MD [place] [facility] [place]: Ankle [id number] / / [place] 2.0 Plate Implanted:Qty: 1 on 11/27/2019 by Donavan Ramirez Jr., MD [place] [facility] [place]: Ankle [id number] / / [place] 2.0 Lock Screw Implanted:Qty: 2 on 11/27/2019 by Donavan Ramirez Jr., MD [place] [facility] [place]: Ankle [id number] / / Esthela 2.0 Lock Screw Implanted:Qty: 1 on 11/27/2019 by Donavan Ramirez Jr., MD at OR [facility] Right: Ankle [id number] / / [place] 2.0 Lock Screw Implanted:Qty: 1 on 11/27/2019 by Donavan Ramirez Jr., MD [place] [facility] [place]: Ankle [id number] / / Plate Fib 5h - [id number] Implanted:Qty: 1 on 11/27/2019 by Donavan Ramirez Jr., MD [place] [facility] [place]: Ankle ESTHELA : TRAUMA / / Description:hardware set documented as of this encounter Visit Diagnoses Diagnosis Ischemic cardiomyopathy- Primary Other specified forms of chronic ischemic heart disease Acute drug-induced gout of right ankle Olecranon bursitis, right elbow Chronic bilateral low back pain without sciatica Hyperglycemia Other abnormal glucose Benign prostatic hyperplasia (BPH) with post-void dribbling HTN, goal below 140/90 Unspecified essential hypertension Paroxysmal atrial fibrillation (HCC) Atrial fibrillation LBBB (left bundle branch block) Other left bundle branch block PAF (paroxysmal atrial fibrillation) (HCC) Atrial fibrillation Inflammation of sacroiliac joint (HCC) Sacroiliitis, not [...] the patient have Health Care Power of Public Relations Consultant? No Full Code 02/17/2019 12:06 PM 02/18/2019 1:09 PM This order reflects the patients wishes and were consensually agreed upon. Question Answer Comments Discussion of Advance Directives occurred with: Not Discussed Does the patient have a Living Will? No Does the patient have Health Care Power of Public Relations Consultant? No Full Code 04/15/2018 12:43 PM 04/16/2018 2:43 PM This order reflects the patients wishes and were consensually agreed upon. Care Teams Performance Improvement Director Relationship Specialty Start Date End Date [place] [address] PCP - General Family Medicine 09/11/22 documented as of this encounter
--- OUTSIDE RECORDS SUMMARY | 2023-12-11 18:49 | External Medical Summary | Summary of Care ---
Author Name Unknown Organization [facility] Address [address] [place] [address] Phone [phone] Care Team Providers Care Branch Lending Manager Name Role Phone Buster Jessica MD Primary Care P rovider Reason for Visit * Reason Onset Date Comments Medication Refill 10/25/2023 Encounter Details Date Type Department Care Team ([facility] st Contact Info) Description 10/25/[address] [phone] Buster Jessica MD [address] [place] [phone] Medication Refill Allergies Active Allergy Reactions Criticality Noted Date [...] Sunday and Sunday afternoon. 150 Tablet 3 08/28/19 23 Active Additional Information Patient taking differently: Take [...] BY MOUTH ONCE DAILY 90 Tablet 3 03/08/20 23 Active Clopidogrel Bisulfate 75 MG Oral Tablet (pLAVix)Indication s:PAD (peripheral artery disease) ([facility]),Coronary artery disease involving [place] coronary artery of [place] heart without angina pectoris TAKE ONE TABLET BY MOUTH ONCE DAILY 90 Tablet 3 03/13/20 23 Active Famotidine 20 MG Oral Tablet (Pepcid) TAKE 1 TABLET BY MOUTH TWICE DAILY (MORNING AND AT BEDTIME) 180 Tablet 3 04/30/20 23 Active Spironolactone 25 MG Oral Tablet (Aldactone)Indicat ions:Coronary artery disease involving [place] coronary artery of [place] heart without angina pectoris,Heart failure, systolic, due to CAD ([facility]),Chronic ischemic heart disease,HTN, goal below 140/90 TAKE ONE TABLET BY MOUTH ONCE DAILY 90 Tablet 3 05/14/20 23 Active Losartan Potassium 25 MG Oral Tablet (Cozaar)Indication s:PAD (peripheral artery disease) ([facility]),Coronary artery disease involving [place] coronary artery of [place] heart without angina pectoris TAKE ONE TABLET BY MOUTH ONCE DAILY 90 Tablet 3 06/04/20 23 Active Baclofen 20 MG Oral TabletIndications: Chronic bilateral low back pain without sciatica Take 1 Tablet by mouth 3 times a day as needed for Muscle spasms. 90 Tablet 5 06/06/20 23 Active Repatha SureClick 140 MG/ML Subcutaneous Solution Auto-injector (evolocumab)Indica tions:Obstructive sleep apnea,Heart failure, systolic, due to CAD ([facility]),Dyslipidemia , goal LDL below 70,Chronic ischemic heart disease,Tobacco use disorder,Coronary artery disease involving [place] coronary artery of [place] heart without angina pectoris Inject 140 mg (1 pen) under the skin every 14 days. 6 mL 3 07/02/20 23 Active Metoprolol Succinate ER 50 MG Oral Tablet Extended Release 24 Hour (Toprol XL)Indications:Per sistent atrial fibrillation (HCC),Acute on chronic systolic (congestive) heart failure (HCC) One tablet by mouth daily at bedtime, this is in addition to the previous prescription for 100 milligrams daily in the morning. 90 Tablet 08/23/19 24 Active Digoxin 125 MCG Oral Tablet (Lanoxin) Take 1 Tablet by mouth in the morning. 90 Tablet 08/23/19 24 Active Benzonatate 100 MG Oral CapsuleIndications :COPD, group D, by GOLD 2017 classification ([facility]) Take 1 Capsule by mouth 3 times a day as needed for Cough. 30 Capsule 08/29/19 24 Active ARIPiprazole 2 MG Oral Tablet (Abilify)Indicatio ns:Moderate episode of recurrent major depressive disorder (HCC) Take 1 Tablet by mouth in the morning. 30 Tablet 1 09/06/19 24 Active Naloxone HCl 4 MG/0.1ML Nasal Liquid (Narcan Nasal) Administer 1 spray into 1 nostril for suspected opioid overdose. Seek immediate medical attention. [email or web address] 1 Each 09/15/19 24 Active Additional Information Patient not taking.Reported on 10/31/2023 Desvenlafaxine Succinate ER 100 MG Oral Tablet Extended Release 24 Hour (Pristiq)Indicatio ns:Moderate episode of recurrent major depressive disorder (HCC) Take 1 Tablet by mouth in the morning. 30 Tablet 09/21/19 24 Active hydrOXYzine HCl 25 MG Oral TabletIndications: Insomnia due to medical condition Take 0.5 Tablets by mouth at bedtime as needed for Other (sleep). 30 Tablet 1 10/12/19 24 Active Additional Information Patient not taking.Reported on 10/31/2023 Allopurinol 100 MG Oral Tablet (Zyloprim)Indicati ons:Acute gout of right hand, unspecified cause Take 1 Tablet by mouth in the morning. 30 Tablet 10/19/19 24 Active metOLazone 2.5 MG Oral Tablet (Zaroxolyn)Indicat ions:Ischemic cardiomyopathy Take 1 Tablet by mouth once a week. take 30 minutes prior to torsemide 4 Tablet 5 10/22/19 24 Active Eliquis 5 MG Oral Tablet (Apixaban) TAKE 1 TABLET BY MOUTH TWICE DAILY 60 Tablet 11 10/18/19 23 024 Discontinued Potassium Chloride ER 10 MEQ Oral Tablet Extended ReleaseIndications :HTN, goal below 140/90,Paroxysmal atrial fibrillation (HCC),LBBB (left bundle branch block) TAKE 2 TABLETS BY MOUTH ONCE DAILY IN THE MORNING AND ONE TAB IN THE EVENING 270 Tablet 3 02/08/20 23 024 Discontinued(Re fill) Albuterol Sulfate (2.5 MG/3ML) 0.083% Inhalation Nebulization Solution (Proventil)Indicat ions:COPD, group D, by GOLD 2017 classification ([facility]) Inhale 1 Vial via nebulizer every 4 hours as needed for Wheezing. 75 mL 1 04/23/20 23 024 Discontinued(Re fill) Fluticasone-Salmet sixto 250-50 MCG/ACT Inhalation Aerosol Powder Breath Activated (Wixela Inhub)Indications: COPD, group D, by GOLD 2017 classification ([facility]) Inhale 1 Puff by mouth in the morning and 1 Puff before bedtime. 60 Each 12 09/06/19 24 024 Discontinued(Re fill) Tamsulosin HCl 0.4 MG Oral Capsule (Flomax) TAKE 1 CAPSULE BY MOUTH ONCE DAILY IN THE MORNING 90 Capsule 3 09/21/19 24 024 Discontinued(Re fill) oxyCODONE HCl 7.5 MG Oral TabletIndications: Chronic bilateral low back pain without sciatica Take 1 Tablet by mouth every 6 hours as needed for Pain, Severe. 28 Tablet 0 10/19/19 24 024 Discontinued(Fo rmulary/Cost) methylPREDNISolone 4 MG Oral Tablet Therapy Pack (Medrol Dosepack) Take as per instructions on package. 21 Each 0 10/25/19 24 024 Discontinued(Lennox david preference/disc ontinuation) oxyCODONE-Acetamin ophen 10-325 MG Oral TabletIndications: Chronic bilateral low back pain without sciatica Take 1 Tablet by mouth every 6 hours as needed for Pain, Severe. 30 Tablet 0 10/25/19 24 024 Discontinued(Lennox david preference/disc ontinuation) documented as of this encounter (statuses as [...] fibrillation) 09/22/2021 Atherosclerotic heart diseas e of [place] coronary artery with other forms of angina [...] untreated, BMI 43.71 kg/m, NECK: 21 inches, [place] 01/27, sent for bipap titration study 01/11/11 case per P completed ICD-10 update of inactive term BMI [...] 11/22/2020 10/12/2023 Coronary artery disease invo lving [place] coronary artery of [place] heart without angina pectoris 07/06/2020 10/12/2023 Chronic [...] 09/23/201305/17 Claudication 05/13/2013 10/12/2023 [employer] Other*[id number] 04/23/2012 09/12/2016 Overview: Study Title: Genomic Markers for Patients with Cardiovascular Disease Project # [id number] Tie Puller: Comfort Aviles MD [phone] Impotence of organic origin 02/16/2011 01/10/2018 Shortness [...] do you have serious difficulty h earing? No-[place] 11/14/2019 Are you blind or do you [...] Miscellaneous Notes * Telephone Encounter - Buster Jessica MD - 10/31/2023 6:22 PM EDT Noted. Oxycodone was discontinued. This encounter can be closed. * Telephone Encounter - Mary Anne Pierce LPN - 10/29/2023 3:38 PM EDT Please see message below. Insurance is rejecting [place] on oxycodone * Telephone Encounter - Erika Harris PHARM Tech - 10/29/2023 2:35 PM EDT Pharmacy calling stating the insurance is rejecting the authorization for OXYCODONE-ACETAMINOPHEN 10-325mg because pt is above the maximum morphine equivalent. Thank you, Erika Harris, Superintendent Stations [facility] ([facility]) (Formerly Tele[facility]) 10/29/2023,2:36 PM * Telephone Encounter - Mi Dai CCMA - 10/26/2023 9:37 AM EDT Questions answered through [employer] saved. PRISCILLA attached. Please verify that all information you needis correct. * Telephone Encounter - Ham Mondragon CPhT - 10/26/2023 8:41 AM EDT Patients insurance would like to inform the office that OXYCODONE-ACETAMINOPHEN 10-325 is requiringadditional information: SUPPORTING CLINICAL NOTES. Prior authorization entered in [employer] at [facility]# [id number] Please fax to [phone] before 2pm today 10/25. Thank you, Oh Mondragon ([facility]) Poultry Hatchery Laborer III [facility] ([facility]) (formerly Telepharmacy) 10/26/2023, 8:41 AM * Telephone Encounter - Buster Jessica MD - 10/25/2023 7:54 PM EDT Received communication from [facility] at [place] regarding patient complaining of pain and requesting prescription for pain medication. Oxycodone 10 mg electronically prescribed with instructions. documented in this encounter Plan of Treatment Upcoming Encounters Date Type Department Care Team ([facility] st Contact Info) Description 11/01/2023 1:30 PM EDT Telemedicine [facility] [place] [place] [address] [place] [address] Grisel Richter CRNP [address] [place] [address] Clary Eastman, Community Health Defence Intelligence Analyst [address] [place] [address] 11/14/2023 9:10 AM EDT Office Visit [address] [phone] Buster Jessica MD [address] [place] [address], [place] [address] 11/21/2023 10:55 AM EDT Hospital Encounter [facility] Operating [facility] [address] [place] [phone] Freeman Beaulieu, DO [address] [place] [phone] 11/21/2023 10:55 AM EDT - 11/21/2023 11:20 AM EDT Surgery OR [facility], Operating Room [facility] [address] [place] [phone] Freeman Beaulieu, DO [address] [place] [phone] INJECTION SACROILIAC JOINT 11/22/2023 10:00 AM EDT Home Visit [facility] at [facility] [address] [place] [address] Lisa Tenorio RN [address] [place] [address] 01/15/2024 10:40 AM EDT Office Visit [facility] [address] [place] [phone] Clair Quarles, DO [address] [place] [address] 04/22/2024 9:30 AM EDT Cardiac Studies Cardiology, [facility] [address] [place] [address] [facility] [address] [place] [address] 05/19/2024 9:30 AM EDT Appointment Radiology, [place] [id number] [place] [address] Scheduled Procedures Name Priority Associated [...] exists DISCUSS TOBACCO CESSATION (REFER TO SMARTSET #3253) 06/02/2023 06/02/2022, 07/21/2020 Depression, Most Recent Score [...] 09/10/2008 LUNG CANCER SCREENING - USE SMARTSET 29298 Completed 08/22/2022, 05/22/2022, 02/21/2021, Additional history exists [...] this encounter Medical Devices Implanted Type Area Spot Checker Device Identifier Shelf Expiration Date Model / Serial / Lot 32mm X 109mm, Zenith Fenestrated Aaa Endovascular Proximal Body Graft, Two Proximal Internal Stent Implanted:Qty: 1 on 04/15/2018 by Evens Hoyt MD at [place] [facility] [place] N/A: Aorta [employer] 03/20/2021 ZFEN-P-2- 32-109-R / / [id number] Stent Graft [id number] [id number] - [id number] - [id number] Implanted:Qty: 1 on 04/15/2018 by Evens Hoyt MD at [place] [facility] Right: Renal Artery GETINGE : MAQUET 11/30/2020 71083 / [id number] / [id number] Stent Graft [id number] 75920 - [id number] - [id number] Implanted:Qty: 1 on 04/15/2018 by Evens Hoyt MD at [place] [facility] Right: Renal Artery GETINGE : MAQUET 11/30/2020 18949 / [id number] / [id number] 28mm X 76mm Distal, 12mm Ipsilateral Leg, Zenith Fenestrated Aaa Endovascular Distal Bifurcated Body Graft Implanted:Qty: 1 on 04/15/2018 by Evens Hoyt MD at [place] [facility] N/A: Aorta [employer] 03/20/2021 ZFEN-D-12 -28-76-C / / [id number] Graft Iliac Leg Spirlz 32f18je - [id number] Implanted:Qty: 1 on 04/15/2018 by Evens Hoyt MD at [place] [facility] Left: Iliac [employer] 09/14/2020 [id number] / / [id number] Graft Iliac Leg Spirlz 47j16xt - [id number] Implanted:Qty: 1 on 04/15/2018 by Evens Hoyt MD at [place] [facility] Right: Iliac [employer] 11/09/2020 [id number] / / [id number] Transfixation Pin 6mm 294.950 - [id number] Implanted:Qty: 1 on 11/14/2019 by Mayank Friedman MD at OR [facility] Right: Ankle SYNTHES 294.950 / / Description:transfixation pi n Screw Schanz 5.7zub824lt - [id number] Implanted:Qty: 2 on 11/14/2019 by Mayank Friedman MD at OR [facility] Right: Leg Lower SYNTHES 294.786SH A / / Description:self drilling sh antz screws 5.0mm x 200mm [place] Trauma 2.7 Lock Screw 16mm Implanted:Qty: 2 on 11/27/2019 by Donavan Ramirez Jr., MD at [place] [facility] Right: Ankle ESTHELA : TRAUMA [id number] / / Description:hardware set [place] Trauma 2.7 Lock Screw 14mm Implanted:Qty: 1 on 11/27/2019 by Donavan Ramirez Jr., MD at [place] [facility] Right: Ankle ESTHELA : TRAUMA [id number] / / [place] Trauma 3.5 Screw 14mm Implanted:Qty: 1 on 11/27/2019 by Donavan Ramirez Jr., MD at [place] [facility] Right: Ankle ESTHELA : TRAUMA [id number] / / Description:hardware set [place]hela Trauma 3.5 Screw 18mm Implanted:Qty: 1 on 11/27/2019 by Donavan Ramirez Jr., MD at [place] [facility] Right: Ankle ESTHELA : TRAUMA [id number] / / Description:hardware set [place] 3.5 Lockscrew 16mm Implanted:Qty: 1 on 11/27/2019 by Donavan Ramirez Jr., MD at [place] [facility] Right: Ankle [id number] / / [place] 2.0 Plate Implanted:Qty: 1 on 11/27/2019 by Donavan Ramirez Jr., MD at [place] [facility] Right: Ankle [id number] / / [place] 2.0 Lock Screw Implanted:Qty: 2 on 11/27/2019 by Donavan Ramirez Jr., MD at [place] [facility] Right: Ankle [id number] / / [place] 2.0 Lock Screw Implanted:Qty: 1 on 11/27/2019 by Donavan Ramirez Jr., MD at [place] [facility] Right: Ankle [id number] / / [place] 2.0 Lock Screw Implanted:Qty: 1 on 11/27/2019 by Donavan Ramirez Jr., MD at [place] [facility] Right: Ankle 047157 / / Plate Fib - [id number] Implanted:Qty: 1 on 11/27/2019 by Donavan Ramirez Jr., MD at [facility] Right: Ankle ESTHELA : TRAUMA / / Description:hardware set documented as of this encounter Visit Diagnoses Diagnosis Chronic bilateral low back pain without sciatica- Primary Inflammation of sacroiliac joint (HCC) Sacroiliitis, [...] the patient have Health Care Power of Tmr Teacher? No Full Code 02/17/2019 12:06 PM 02/18/2019 1:09 PM This order reflects the patients wishes and were consensually agreed upon. Question Answer Comments Discussion of Advance Directives occurred with: Not Discussed Does the patient have a Living Will? No Does the patient have Health Care Power of Tmr Teacher? No Full Code 04/15/2018 12:43 PM 04/16/2018 2:43 PM This order reflects the patients wishes and were consensually agreed upon. Care Teams Branch Lending Manager Relationship Specialty Start Date End Date Buster Jessica MD [address] [place] [address] PCP - General Family Medicine 09/11/22 documented as of this encounter
--- OUTSIDE RECORDS SUMMARY | 2023-12-11 18:49 | External Medical Summary | Summary of Care ---
Author Name Unknown Organization [facility] Address [address] [place] [address] Phone [phone] Care Team Providers Care Nursing Assoc Name Role Phone Buster Jessica MD [facility] Reason for Visit * Reason Onset Date Comments Advice 11/02/2023 Encounter Details Date Type Department Care Team (Late st Contact Info) Description 11/02/2023 Telephone Care Coordination and Integration [address], [place] [phone] [facility] Dump Attendant [address], [place] [phone] Advice Allergies Active Allergy Reactions Criticality Noted Date Comments Atorvastatin Muscle pain,Unknown 01/18/2015 Medication intolerance, not an allergy Sacubitril-Valsartan Other (Please comment) 09/17/2020 Throat swelled Sacubitril High 07/20/2023 Other Reaction(s): THROAT SWELLING Simvastatin Low 06/23/2022 Other reaction(s): MUSCLE ACHES Valsartan High 07/20/2023 Other Reaction(s): THROAT SWELLING documented as of this encounter (statuses as of 11/02/2023) Medications Medication Sig Dispensed Refills Start Date [...] (peripheral artery disease) (HCC),Coronary artery disease involving mi'kmaq coronary artery of mi'kmaq heart without angina pectoris TAKE ONE TABLET BY MOUTH ONCE DAILY 90 Tablet 3 03/13/2023 Active Famotidine 20 MG Oral Tablet (Pepcid) TAKE 1 TABLET BY MOUTH TWICE DAILY (MORNING AND AT BEDTIME) 180 Tablet 3 04/30/2023 Active Spironolactone 25 MG Oral Tablet (Aldactone)Indicatio ns:Coronary artery disease involving mi'kmaq coronary artery of mi'kmaq heart without angina pectoris,Heart failure, systolic, due to CAD ([facility]),Chronic ischemic heart disease,HTN, goal below 140/90 TAKE ONE TABLET BY MOUTH ONCE DAILY 90 Tablet 3 05/14/2023 Active Losartan Potassium 25 MG Oral Tablet (Cozaar)Indications: PAD (peripheral artery disease) ([facility]),Coronary artery disease involving mi'kmaq coronary artery of mi'kmaq heart without angina pectoris TAKE ONE TABLET [...] heart disease,Tobacco use disorder,Coronary artery disease involving mi'kmaq coronary artery of mi'kmaq heart without angina pectoris Inject 140 mg [...] OPD, group D, by GOLD 2017 classification (HCC) Take 1 Capsule by mouth 3 times [...] suspected opioid overdose. Seek immediate medical attention. [email or web address] Each 3 09/15/2023 Active Additional Information [...] Pain, Severe. 30 Tablet 0 10/31/2023 Active Colchicine 0.6 MG Oral TabletIndications:Ac jon drug-induced gout of right ankle Take 1 Tablet by mouth in the morning and 1 Tablet before bedtime. 30 Tablet 1 11/02/2023 Active documented as of this encounter (statuses as of 11/02/2023) Active Problems Problem Noted Date Diagnosed Date [...] fibrillation) 09/22/2021 Atherosclerotic heart diseas e of mi'kmaq coronary artery with other forms of angina [...] untreated, BMI 43.71 kg/m, NECK: 21 inches, Kimberly 6/24, sent for bipap titration study 01/11/11 case per [facility] completed ICD-10 update of inactive term Last Assessment & Plan: Waiting for new bipap machine BMI 35-39 ISOLATED (SEE ACTUAL BMI) 01/17/2010 Overview: Per Obesity Protocol, #19 BPH without obstruction/lower urinary tract symp toms 08/19/2009 Dyslipidemia, goal LDL below 70 07/21/2009 Overview: Per Lipid Taxonomy. documented as of this encounter (statuses as of 11/02/2023) Resolved Problems Problem Noted Date Diagnosed Date [...] 11/22/2020 10/12/2023 Coronary artery disease invo lving mi'kmaq coronary artery of mi'kmaq heart without angina pectoris 07/06/2020 10/12/2023 Chronic [...] 09/23/201305/17 Claudication 05/13/2013 10/12/2023 [employer] Other*[id number] 04/23/2012 09/12/2016 Overview: Study Title: Genomic Markers for Patients with Cardiovascular Disease Project # [id number] Clinical Medical Assistant: Comfort Aviles MD [phone] Impotence of organic origin 02/16/2011 01/10/2018 Shortness [...] as of this encounter (statuses as of 11/02/2023) Immunizations Name Administration Dates Next Due COVID-19 [...] do you have serious difficulty h earing? No-KIVALINA 11/14/2019 Are you blind or do you [...] Telephone Encounter - Buster Jessica MD - 11/02/2023 6:16 PM EDT Spoke to the patient on the phone. Neither hydrocodone or oxycodone has helped. I suspect his pain on ankle and knee are related to acute gout flare-up due to recent start of allopurinol. Will prescribe colchicine 0.6 mg twice daily. He can continue use hydrocodone as needed. * Telephone Encounter - Cl[facility] Community [facility] Assistant - 11/02/2023 10:35 AM EDT Pt. Called questioning increased pain now in his left knee. Previously in right ankle. Pt. Reportedhe is taking 2 oxy, not getting relief. Could nurse from office please call him back? documented in this encounter Plan of Treatment Upcoming Encounters Date Type Department Care Team (Latest Contact Info) Description 11/14/2023 9:10 AM EDT Office Visit [address] [place] [phone] Buster Jessica MD [address] [facility] [place] [address] 11/21/2023 10:55 AM EDT Hospital Encounter [facility], Operating Room [facility] [address] [place] [phone] Freeman Beaulieu, DO [address] [place] [phone] 11/21/2023 10:55 AM EDT - 11/21/2023 11:20 AM EDT Surgery OR [facility], Operating Room [facility] [address] [place] [phone] Freeman Beaulieu, DO [address] [place] [phone] INJECTION SACROILIAC JOINT 11/22/2023 10:00 AM EDT Home Visit [facility] [place] [address] [place] [address] Lisa Tenorio RN [address] [place] [address] 01/15/2024 10:40 AM EDT Office Visit [facility] [address] [place] [phone] Clair Quarles, DO [address] [place] [address] 04/22/2024 9:30 AM EDT Cardiac Studies Cardiology, [facility] [address] [place] [address] [facility] [address] [place] [address] 05/19/2024 9:30 AM EDT Appointment Radiology, Matt [address] [phone] Scheduled Procedures Name Priority Associated Diagnoses Date/Ti me INJECTION SACROILIAC JOINT Inflammation of sacroiliac joint (HCC) 11/21/2023 10:55 AM EDT COLONOSCOPY FLEXIBLE PROXIMAL DIAGNOSTIC Recall History of colon polyps Health Maintenance Due Date Last Done Comments *ADVANCE DIRECTIVE NOT ON FILE 05/28/2019 COVID-19 Vaccine ( - 2022- season) 2023 11/08/2020, 10/08/2020 Influenza Vaccine (FLU shot) (#1) 2023 05/11/2022, 06/09/2021, 04/13/2020, Additional history exists DISCUSS TOBACCO CESSATION (REFER TO SMARTSET #3880) 06/02/2023 06/02/2022, 07/21/2020 Depression, Most Recent Score [...] 09/10/2008 LUNG CANCER SCREENING - USE SMARTSET 64330 Completed 08/22/2022, 05/22/2022, 02/21/2021, Additional history exists [...] this encounter Medical Devices Implanted Type Area Head Control Clerk Device Identifier Shelf Expiration Date Model / Serial / Lot 32mm X 109mm, Zenith Fenestrated Aaa Endovascular Proximal Body Graft, Two Proximal Internal Stent Implanted:Qty: 1 on 04/15/2018 by Evens Hoyt [place] [facility] [place]A: Aorta [employer] 03/20/2021 LISA-P-2- [id number] / / [id number] Stent Graft [id number] - [id number] - [id number] Implanted:Qty: 1 on 04/15/2018 by Evens Hoyt MD [place] [facility] Right: Renal Artery GETINGE : MAQUET 11/30/2020 [id number] / [id number] / [id number] Stent Graft [id number] - [id number] - [id number] Implanted:Qty: 1 on 04/15/2018 by Evens Hoyt MD [place] [facility] [place]: Renal Artery GETINGE : MAQUET 11/30/2020 [id number] / [id number] / [id number] 28mm X 76mm Distal, 12mm Ipsilateral Leg, Zenith Fenestrated Aaa Endovascular Distal Bifurcated Body Graft Implanted:Qty: 1 on 04/15/2018 by Evens Hoyt MD [place] [facility] [place]/A: Aorta [employer] 03/20/2021 [id number]-D-12 -28-76-[id number] / / [id number] Graft Iliac Leg Spirlz 21o57mo - [id number] Implanted:Qty: 1 on 04/15/2018 by Evens Hoyt MD [place] [facility] Left: Iliac [employer] 09/14/2020 [id number] / / [id number] Graft Iliac Leg Spirlz 35o01tv - [id number] Implanted:Qty: 1 on 04/15/2018 by Evens Hoyt MD [place] [facility] Right: Iliac [employer] 11/09/2020 [id number] / / [id number] Transfixation Pin 6mm 294.950 - [id number] Implanted:Qty: 1 on 11/14/2019 by Mayank Friedman MD at OR [facility] Right: Ankle SYNTHES 294.950 / / Description:transfixation pi n Screw Schanz [id number] - [id number] Implanted:Qty: 2 on 11/14/2019 by Mayank Friedman MD at OR [facility] Right: Leg Lower SYNTHES 294.786SH A / / Description:self drilling sh antz screws 5.0mm x 200mm [place] Trauma 2.7 Lock Screw 16mm Implanted:Qty: 2 on 11/27/2019 by Donavan Ramirez Jr., MD [place] [facility] [place]: Ankle ESTHELA : TRAUMA [id number] / / Description:hardware set [place] Trauma 2.7 Lock Screw 14mm Implanted:Qty: 1 on 11/27/2019 by Donavan Ramirez Jr., MD [place] [facility] [place]: Ankle ESTHELA : TRAUMA [id number] / / Esthela Trauma 3.5 Screw 14mm Implanted:Qty: 1 on 11/27/2019 by Donavan Ramirez Jr., MD [place] [facility] [place]: Ankle ESTHELA : TRAUMA [id number] / / Description:hardware set Esthela Trauma 3.5 Screw 18mm Implanted:Qty: 1 on 11/27/2019 by Donavan Ramirez Jr., MD [place] [facility] [place]: Ankle ESTHELA : TRAUMA [id number] / / Description:hardware set [place] 3.5 Lockscrew 16mm Implanted:Qty: 1 on 11/27/2019 by Donavan Ramirez Jr., MD [place] [facility] [place]: Ankle [id number] / / Esthela 2.0 Plate Implanted:Qty: 1 on 11/27/2019 by Donavan Ramirez Jr., MD [place] [facility] [place]: Ankle [id number] / / [place] 2.0 Lock Screw Implanted:Qty: 2 on 11/27/2019 by Donavan Ramirez Jr., MD [place] [facility] [place]: Ankle [id number] / / [place] 2.0 Lock Screw Implanted:Qty: 1 on 11/27/2019 by Donavan Ramirez Jr., MD [place] [facility] [place]: Ankle [id number] / / [place] 2.0 Lock Screw Implanted:Qty: 1 on 11/27/2019 by Donavan Ramirez Jr., MD [place] [facility] [place]: Ankle [id number] / / Plate Fib 5h - [id number] Implanted:Qty: 1 on 11/27/2019 by Donavan Ramirez Jr., MD [place] [facility] [place]: Ankle ESTHELA : TRAUMA / / Description:hardware set documented as of this encounter Visit Diagnoses Diagnosis Acute drug-induced gout of right ankle- Primary Inflammation of sacroiliac joint (HCC) Sacroiliitis, [...] the patient have Health Care Power of Associate Professor Of History? No Full Code 02/17/2019 12:06 PM 02/18/2019 1:09 PM This order reflects the patients wishes and were consensually agreed upon. Question Answer Comments Discussion of Advance Directives occurred with: Not Discussed Does the patient have a Living Will? No Does the patient have Health Care Power of Associate Professor Of History? No Full Code 04/15/2018 12:43 PM 04/16/2018 2:43 PM This order reflects the patients wishes and were consensually agreed upon. Care Teams Nursing Assoc Relationship Specialty Start Date End Date Buster Jessica MD [address] [place] [id number] PCP - General Family Medicine 09/11/22 documented as of this encounter
--- OUTSIDE RECORDS SUMMARY | 2023-12-11 18:50 | External Medical Summary | Summary of Care ---
Author Name Unknown Organization [facility] Address [address] [place] [address] Phone [phone] Care Team Providers Care Epic Director Name Role Phone Buster Jessica MD Primary Care P rovider Reason for Referral * Medication Prior Authorization - Pending Review Specialty Diagnoses / Procedures Referred By Contac t Referred To Contact Diagnoses Chronic bilateral low back pain without sciatica Acute drug-induced gout of right ankle Buster Jessica MD [address] [place] [address] Referral ID Status Reason Start Date Expiration Date V isits Requested Visits Authorized [id number] Pending Review 999 999 Reason for Visit * Reason Comments Status Check Lab work completed. Encounter Details Date Type Department Care Team ([facility] st Contact Info) Description 10/31/2023 11:10 AM EDT Office Visit [address] [phone] Buster Jessica MD [address] [place] [phone] Ischemic cardiomyopathy*; Acute drug-induced gout of right ankle; Olecranon bursitis, right elbow; Chronic bilateral low back pain without sciatica; Hyperglycemia; Benign prostatic hyperplasia (BPH) with post-void dribbling; HTN, goal below 140/90; Paroxysmal atrial fibrillation ([facility]); LBBB (left bundle branch block); PAF (paroxysmal atrial fibrillation) ([facility]) Allergies Active Allergy Reactions Criticality Noted Date [...] (Demadex)Indication s:Heart failure, systolic, due to CAD ([facility]) Take 1 tablet by mouth every morning. [...] Oral Tablet (pLAVix)Indications :PAD (peripheral artery disease) ([facility]),Coronary artery disease involving [place] coronary artery of [place] heart without angina pectoris TAKE ONE TABLET BY MOUTH ONCE DAILY 90 Tablet 3 3 Active Famotidine 20 MG Oral Tablet (Pepcid) TAKE 1 TABLET BY MOUTH TWICE DAILY (MORNING AND AT BEDTIME) 180 Tablet 3 3 Active Spironolactone 25 MG Oral Tablet (Aldactone)Indicati ons:Coronary artery disease involving [place] coronary artery of [place] heart without angina pectoris,Heart failure, systolic, due to CAD ([facility]),Chronic ischemic heart disease,HTN, goal below 140/90 TAKE ONE TABLET BY MOUTH ONCE DAILY 90 Tablet 3 3 Active Losartan Potassium 25 MG Oral Tablet (Cozaar)Indications :PAD (peripheral artery disease) ([facility]),Coronary artery disease involving [place] coronary artery of [place] heart without angina pectoris TAKE ONE TABLET BY MOUTH ONCE DAILY 90 Tablet 3 3 Active Baclofen 20 MG Oral TabletIndications:C hronic bilateral low back pain without sciatica Take 1 Tablet by mouth 3 times a day as needed for Muscle spasms. 90 Tablet 5 3 Active Repatha SureClick 140 MG/ML Subcutaneous Solution Auto-injector (evolocumab)Indicat ions:Obstructive sleep apnea,Heart failure, systolic, due to CAD ([facility]),Dyslipidemia, goal LDL below 70,Chronic ischemic heart disease,Tobacco use disorder,Coronary artery disease involving [place] coronary artery of [place] heart without angina pectoris Inject 140 mg (1 pen) under the skin every 14 days. 6 mL 3 3 Active Metoprolol Succinate ER 50 MG Oral Tablet Extended Release 24 Hour (Toprol XL)Indications:Pers istent atrial fibrillation ([facility]),Acute on chronic systolic (congestive) heart failure ([facility]) One tablet by mouth daily at bedtime, this is in addition to the previous prescription for 100 milligrams daily in the morning. 90 Tablet 3 4 Active Digoxin 125 MCG Oral Tablet (Lanoxin) Take 1 Tablet by mouth in the morning. 90 Tablet 3 4 Active Benzonatate 100 MG Oral CapsuleIndications: COPD, group D, by GOLD 2017 classification ([facility]) Take 1 Capsule by mouth 3 times a day as needed for Cough. 30 Capsule 3 4 Active ARIPiprazole 2 MG Oral Tablet (Abilify)Indication s:Moderate episode of recurrent major depressive disorder ([facility]) Take 1 Tablet by mouth in the morning. 30 Tablet 1 4 Active Naloxone HCl 4 MG/0.1ML Nasal Liquid (Narcan Nasal) Administer 1 spray into 1 nostril for suspected opioid overdose. Seek immediate medical attention. [email or web address]://[email or web address]/[email or web address]?[email or web address] 1 Each 3 4 Active Additional Information [...] OPD, group D, by GOLD 2017 classification ([facility]) Inhale 1 Puff by mouth in the morning and 1 Puff before bedtime. 180 Each 4 Active Albuterol Sulfate (2.5 MG/3ML) 0.083% Inhalation Nebulization Solution (Proventil)Indicati ons:COPD, group D, by GOLD 2017 classification ([facility]) Inhale 1 Vial via nebulizer every [...] fibrillation) 09/22/2021 Atherosclerotic heart diseas e of [place] coronary artery with other forms of angina [...] untreated, BMI 43.71 kg/m, NECK: 21 inches, [place] 6/24, sent for bipap titration study 01/11/11 case per [facility] completed ICD-10 update of inactive term BMI [...] 11/22/2020 10/12/2023 Coronary artery disease invo lving [place] coronary artery of [place] heart without angina pectoris 07/06/2020 10/12/2023 Chronic [...] 09/23/201305/17 Claudication 05/13/2013 10/12/2023 [employer] Other*[id number] 04/23/2012 09/12/2016 Overview: Study Title: Genomic Markers for Patients with Cardiovascular Disease Project # [id number] Glass Lined Tank Repairer: Comfort Aviles MD [phone] Impotence of organic origin 02/16/2011 01/10/2018 Shortness [...] do you have serious difficulty h earing? No-[place] 11/14/2019 Are you blind or do you [...] mg once a week on Fridays. Using potassium 20 mEq in the morning and 10 mEq [...] nevus Z86.018 Thoracic aortic aneurysm without rupture ([facility]) I71.20 Basal cell carcinoma (BCC) of right ala nasi C44.311 Squamous cell carcinoma of ala nasi C44.321 COPD, group D, by GOLD 2017 classification ([facility]) J44.9 Basal cell carcinoma (BCC) of right nasal tip C44.311 Closed fracture of right ankle with routine healing S82.891D PVD (peripheral vascular disease) ([facility]) I73.9 Controlled substance agreement signed Z79.899 LBBB (left bundle branch block) I44.7 Biventricular ICD (implantable cardioverter-defibrillator) in place Z95.810 Tobacco dependence F17.200 Adjustment disorder with anxious mood F43.22 Pulmonary emphysema ([facility]) J43.9 PAF (paroxysmal atrial fibrillation) ([facility]) I48.0 Atherosclerotic heart disease of [place] coronary artery with other forms of angina pectoris ([facility]) I25.118 Moderate episode of recurrent major depressive disorder ([facility]) F33.1 Elevated uric acid in blood E79.0 Right lower lobe pulmonary nodule R91.1 Presence of coronary angioplasty implant and graft Z95.5 Chronic bilateral low back pain without sciatica M54.50, G89.29 Juxtarenal abdominal aortic aneurysm (AAA) without rupture ([facility]) I71.42 Other persistent atrial fibrillation (HCC) I48.19 [...] for suspectedopioid overdose. Seek immediate medical attention. https://[email or web address] Game [email or web address]/watch?v=[email or web address] (Patient not taking: Reported on 10/31/2023) 1 [...] performed by Mayank Friedman MD at OR [facility] BIMALLEOLAR ANKLE FX W/ FIXATION Right 11/27/2019 OPEN TREATMENT BIMALLEOLAR ANKLE FRACTURE performed by Donavan Ramirez Jr., MD at OR [facility] COLONOSCOPY THRU STOMA, W/BIOPSY 03/06/2011 fair prep, polyps x4, path shows adenomatous tissue repeat in 3 years COLONOSCOPY, DIAGNOSTIC (RECTUM) 04/21/2014 hyperplastic polyp, multiple cecal AVM's, repeat 5 yrs/COLONOSCOPY FLEXIBLE PROXIMAL DIAGNOSTIC performed by Jake Montoya MD at ENDOSCOPY [facility] COLONOSCOPY, DIAGNOSTIC (RECTUM) N/A 10/27/2022 [facility], Colonoscopy, multi polyps in cecum, transverse, recto-sigmoid / biopsies benign adenomatous polyp and serrated adenomatous polyps / 3 year recall CORONARY ANGIOGRAPHY W/LEFT HEART CATH Right 02/17/2019 CORONARY ANGIOGRAPHY W/LEFT HEART CATH performed by Winston Mckeon MD at CARDIAC LABS [facility] CORONARY ANGIOGRAPHY W/LEFT HEART CATH Right 10/20/2020 CORONARY ANGIOGRAPHY W/LEFT HEART CATH performed by Winston Mckeon MD at CARDIAC LABS [facility] CORONARY ANGIOGRAPHY W/LEFT HEART CATH Right 10/08/2023 CORONARY ANGIOGRAPHY W/LEFT HEART CATH performed by Thea Wilkes MD at CARDIAC LABS [facility] CORONARY ANGIOGRAPHY W/RIGHT+LEFT CATH 04/23/2012 CORONARY ANGIOGRAPHY W/RIGHT+LEFT CATH performed by Donavan Egan MD at CARDIAC LABS [facility] ENDOVASCULAR REPAIR AORTA/INFRARENAL 2 PROSTHESES N/A 04/15/2018 fenestrated endovascular aortic aneurysm repair, 2 vessel fenestrations (bilateral renal) and SMA scallop performed by Evens Hoyt MD at [facility] INTRAVASCULAR STENT, PERC, FIRST VESSEL OPEN FEMORAL ARTERY EXPOSURE FOR ENDOVASCULAR PROSTHESIS, UNILAT Bilateral 04/15/2018 bilateral femoral artery cutdowns performed by Evens Hoyt MD at [facility] REMOVE BONE FIXATION DEVICE Right 11/27/2019 REMOVAL OF EXTERNAL FIXATION performed by Donavan Ramirez Jr., MD at [facility] SACROILIAC JOINT INJECT W/GUIDANCE 02/14/2023 INJECTION SACROILIAC JOINT performed by Rajinder Corado DO at [facility] SACROILIAC JOINT INJECT W/GUIDANCE 07/11/2023 INJECTION SACROILIAC JOINT performed by Rajinder Corado DO at [facility] Review of patient's allergies indicates: Allergen Reactions [...] History 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 Employer: [employer] 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 Tobacco Use Smoking status: Every Day Current packs/day: 1.00 Average packs/day: 1 pack/day for 52.0 years (52.0 ttl pk-yrs) Types: Cigarettes Smokeless tobacco: Never Tobacco comments: pack per day.10/29/23 Vaping Use Vaping Use: Never used Substance and Sexual Activity Alcohol use: Yes Comment: rare Drug use: No Sexual activity: Yes Partners: Female Other Topics Concern Not on file Social History Narrative 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 Social Determinants of Health Financial [...] Info) Description 11/01/2023 1:30 PM EDT Telemedicine [facility] [place] [address] [place], [place] [phone] Grisel Richter CRNP [address] [place] [address] [address] Clary Eastman, Community Health Temperer [address] [facility] [place] [address] 11/21/2023 10:55 AM EDT Hospital Encounter [facility], Operating Room [facility] [address] [place] [phone] Freeman Beaulieu, DO [address] [place] [phone] 11/21/2023 10:55 AM EDT - 11/21/2023 11:20 AM EDT Surgery OR [facility], Operating Room [facility] [address] [place] [phone] Freeman Beaulieu, DO [address] [place] [phone] INJECTION SACROILIAC JOINT 11/22/2023 10:00 AM EDT Home Visit [facility] [place] [address] [place] [address] Lisa Tenorio RN [address] [place] [address] 01/15/2024 10:40 AM EDT Office Visit [facility] [address] [place] [phone] Clair Quarles, DO [address] [place] [address] 04/22/2024 9:30 AM EDT Cardiac Studies Cardiology, [facility] [address] [place] [address] [facility] [address] [place] [address] 05/19/2024 9:30 AM EDT Appointment Radiology, [address] [phone] Scheduled Procedures Name Priority Associated [...] exists DISCUSS TOBACCO CESSATION (REFER TO SMARTSET #9353) 06/02/2023 06/02/2022, 07/21/2020 Depression, Most Recent Score [...] 09/10/2008 LUNG CANCER SCREENING - USE SMARTSET 05431 Completed 08/22/2022, 05/22/2022, 02/21/2021, Additional history exists [...] this encounter Medical Devices Implanted Type Area Customer Solutions Specialist Device Identifier Shelf Expiration Date Model / Serial / Lot 32mm X 109mm, Zenith Fenestrated Aaa Endovascular Proximal Body Graft, Two Proximal Internal Stent Implanted:Qty: 1 on 04/15/2018 by Evens Hoyt MD at OR [facility] N/A: Aorta [employer] 03/20/2021 LISA-P-2- 32-109-R / / [id number] Stent Graft [id number] - [id number] - [id number] Implanted:Qty: 1 on 04/15/2018 by Evens Hoyt MD at OR [facility] Right: Renal Artery GETINGE : MAQUET 11/30/2020 [id number] / [id number] / [id number] Stent Graft [id number] - [id number] - [id number] Implanted:Qty: 1 on 04/15/2018 by Evens Hoyt MD at OR [facility] Right: Renal Artery GETINGE : MAQUET 11/30/2020 67942 / [id number] / [id number] 28mm X 76mm Distal, 12mm Ipsilateral Leg, Zenith Fenestrated Aaa Endovascular Distal Bifurcated Body Graft Implanted:Qty: 1 on 04/15/2018 by Evens Hoyt MD at OR [facility] N/A: Aorta [employer] 03/20/2021 LISA-D-12 -28-76-C / / [id number] Graft Iliac Leg Spirlz 63q60ht - [id number] Implanted:Qty: 1 on 04/15/2018 by Evens Hoyt MD at OR [facility] Left: Iliac [employer] 09/14/2020 [id number] / / [id number] Graft Iliac Leg Spirlz 16f63mu - [id number] Implanted:Qty: 1 on 04/15/2018 by Evens Hoyt MD at OR [facility] Right: Iliac [employer] 11/09/2020 [id number] / / [id number] Transfixation Pin 6mm 294.950 - [id number] Implanted:Qty: 1 on 11/14/2019 by Mayank Friedman MD at OR [facility] Right: Ankle SYNTHES 294.950 / / Description:transfixation pi n Screw Schanz [id number] - [id number] Implanted:Qty: 2 on 11/14/2019 by Mayank Friedman MD at OR [facility] Right: Leg Lower SYNTHES 294.786SH A / / Description:self drilling sh antz screws 5.0mm x 200mm [place] Trauma 2.7 Lock Screw 16mm Implanted:Qty: 2 on 11/27/2019 by Donavan Ramirez Jr., MD at OR [facility] Right: Ankle ESTHELA : TRAUMA [id number] / / Description:hardware set [place] Trauma 2.7 Lock Screw 14mm Implanted:Qty: 1 on 11/27/2019 by Donavan Ramirez Jr., MD at OR [facility] Right: Ankle ESTHELA : TRAUMA [id number] / / [place] Trauma 3.5 Screw 14mm Implanted:Qty: 1 on 11/27/2019 by Donavan Ramirez Jr., MD at OR [facility] Right: Ankle ESTHELA : TRAUMA [id number] / / Description:hardware set [place] Trauma 3.5 Screw 18mm Implanted:Qty: 1 on 11/27/2019 by Donavan Ramirez Jr., MD at OR [facility] Right: Ankle ESTHELA : TRAUMA [id number] / / Description:hardware set [place] 3.5 Lockscrew 16mm Implanted:Qty: 1 on 11/27/2019 by Donavan Ramirez Jr., MD at OR [facility] Right: Ankle [id number] / / [place] 2.0 Plate Implanted:Qty: 1 on 11/27/2019 by Donavan Ramirez Jr., MD at OR [facility] Right: Ankle [id number] / / [place] 2.0 Lock Screw Implanted:Qty: 2 on 11/27/2019 by Donavan Ramirez Jr., MD at OR [facility] Right: Ankle [id number] / / [place] 2.0 Lock Screw Implanted:Qty: 1 on 11/27/2019 by Donavan Ramirez Jr., MD at OR [facility] Right: Ankle [id number] / / [place] 2.0 Lock Screw Implanted:Qty: 1 on 11/27/2019 by Donavan Ramirez Jr., MD at OR [facility] Right: Ankle [id number] / / Plate Fib 5h - [id number] Implanted:Qty: 1 on 11/27/2019 by Donavan Ramirez Jr., MD at OR [facility] Right: Ankle ESTHELA : TRAUMA / / [...] the patient have Health Care Power of Gun Repair Clerk? No Full Code 02/17/2019 12:06 PM 02/18/2019 1:09 PM This order reflects the patients wishes and were consensually agreed upon. Question Answer Comments Discussion of Advance Directives occurred with: Not Discussed Does the patient have a Living Will? No Does the patient have Health Care Power of Gun Repair Clerk? No Full Code 04/15/2018 12:43 PM 04/16/2018 2:43 PM This order reflects the patients wishes and were consensually agreed upon. Care Teams Epic Director Relationship Specialty Start Date End Date [place] [address] PCP - General Family Medicine 09/11/22 documented as of this encounter
--- OUTSIDE RECORDS SUMMARY | 2023-12-11 18:50 | External Medical Summary | Summary of Care ---
Author Name Unknown Organization [facility] Address [address] [place] [address] Phone [phone] Care Team Providers Care Loan Interviewer Name Role Phone Buster Jessica MD Primary Care P lisbethder Reason for Visit * Reason Comments eRx-Medication Refill Encounter Details Date Type Department Care Team (Late st Contact Info) Description 10/30/2023 Refill Cardiology, [facility] [address] [place] [phone] Mahi Albright PA-C [address] [place] [address] Persistent atrial fibrillation (HCC)* Allergies Active Allergy Reactions Criticality Noted Date Comments Atorvastatin Muscle pain,Unknown 01/18/2015 Medication intolerance, not an allergy Sacubitril-Valsartan Other (Please comment) 09/17/2020 Throat swelled Sacubitril High 07/20/2023 Other Reaction(s): THROAT SWELLING Simvastatin Low 06/23/2022 Other reaction(s): MUSCLE ACHES Valsartan High 07/20/2023 Other Reaction(s): THROAT SWELLING documented as of this encounter (statuses as of 10/30/2023) Medications Medication Sig Dispensed Refills Start Date End Date Status Torsemide 100 MG Oral Tablet (Demadex)Indicatio ns:Heart failure, systolic, due to CAD ([facility]) Take 1 tablet by mouth [...] by mouth in the morning. 0 Active Potassium Chloride ER 10 MEQ Oral Tablet Extended ReleaseIndications :HTN, goal below 140/90,Paroxysmal atrial fibrillation (HCC),LBBB (left bundle branch block) TAKE 2 TABLETS BY MOUTH ONCE DAILY IN THE MORNING AND ONE TAB IN THE EVENING 270 Tablet 3 3 Active Metoprolol Succinate ER 100 MG Oral Tablet Extended Release 24 Hour (toPROL XL) TAKE ONE TABLET BY MOUTH ONCE DAILY 90 Tablet 3 3 Active Clopidogrel Bisulfate 75 MG Oral Tablet (pLAVix)Indication s:PAD (peripheral artery disease) ([facility]),Coronary artery disease involving [place] coronary artery of [place] heart without angina pectoris TAKE ONE TABLET BY MOUTH ONCE DAILY 90 Tablet 3 3 Active Famotidine 20 MG Oral Tablet (Pepcid) TAKE 1 TABLET BY MOUTH TWICE DAILY (MORNING AND AT BEDTIME) 180 Tablet 3 3 Active Spironolactone 25 MG Oral Tablet (Aldactone)Indicat ions:Coronary artery disease involving [place] coronary artery of [place] heart without angina pectoris,Heart failure, systolic, due to CAD ([facility]),Chronic ischemic heart disease,HTN, goal below 140/90 TAKE ONE TABLET BY MOUTH ONCE DAILY 90 Tablet 3 3 Active Losartan Potassium 25 MG Oral Tablet (Cozaar)Indication s:PAD (peripheral artery disease) ([facility]),Coronary artery disease involving [place] coronary artery of [place] heart without angina pectoris TAKE ONE TABLET [...] heart disease,Tobacco use disorder,Coronary artery disease involving [place] coronary artery of [place] heart without angina pectoris Inject 140 mg [...] 3 4 Active Benzonatate 100 MG Oral CapsuleIndications :COPD, group D, by GOLD 2017 classification ([facility]) Take 1 Capsule by mouth [...] suspected opioid overdose. Seek immediate medical attention. [email or web address] 1 Each 3 4 Active Tamsulosin HCl 0.4 MG Oral Capsule (Flomax) TAKE 1 CAPSULE BY MOUTH ONCE DAILY IN THE MORNING 90 Capsule 3 4 Active Desvenlafaxine Succinate ER 100 MG Oral Tablet Extended Release 24 Hour (Pristiq)Indicatio ns:Moderate episode of recurrent major depressive disorder (HCC) Take 1 Tablet by mouth in the morning. 30 Tablet 11 4 Active hydrOXYzine HCl 25 MG Oral TabletIndications: Insomnia due to medical condition Take 0.5 Tablets by mouth at bedtime as needed for Other (sleep). 30 Tablet 1 4 Active Allopurinol 100 MG Oral Tablet (Zyloprim)Indicati ons:Acute gout of right hand, unspecified cause Take 1 Tablet by mouth in the morning. 30 Tablet 11 4 Active metOLazone 2.5 MG Oral Tablet (Zaroxolyn)Indicat ions:Ischemic cardiomyopathy Take 1 Tablet by mouth once a week. take 30 minutes prior to torsemide 4 Tablet 5 4 Active methylPREDNISolone 4 MG Oral Tablet Therapy Pack (Medrol Dosepack) Take as per instructions on package. 21 Each 0 4 Active oxyCODONE-Acetamin ophen 10-325 MG Oral TabletIndications: Chronic bilateral low back pain without sciatica Take 1 Tablet by mouth every 6 hours as needed for Pain, Severe. 30 Tablet 0 4 Active Fluticasone-Salmet sixto 250-50 MCG/ACT Inhalation Aerosol Powder Breath Activated (Wixela Inhub)Indications: COPD, group D, by GOLD 2017 classification ([facility]) Inhale 1 Puff by mouth in the morning and 1 Puff before bedtime. 180 Each 12 4 Active Albuterol Sulfate (2.5 MG/3ML) 0.083% Inhalation Nebulization Solution (Proventil)Indicat ions:COPD, group D, by GOLD 2017 classification ([facility]) Inhale 1 Vial via nebulizer every 4 hours as needed for Wheezing. 75 mL 1 4 Active Eliquis 5 MG Oral Tablet (Apixaban)Indicati ons:Persistent atrial fibrillation (HCC) TAKE 1 TABLET BY MOUTH TWICE DAILY 60 Tablet 11 4 Active Eliquis 5 MG Oral Tablet (Apixaban) TAKE 1 TABLET BY MOUTH TWICE DAILY 60 Tablet 11 3 10/30/19 24 Discontinued documented as of this encounter (statuses as of 10/30/2023) Active Problems Problem Noted Date Diagnosed Date [...] acid in blood 09/26/2021 Pulmonary emphysema 09/22/2021 Atherosclerotic heart diseas e of [place] coronary artery with other forms of angina [...] untreated, BMI 43.71 kg/m, NECK: 21 inches, Anthon 6/24, sent for bipap titration study 01/11/11 case per [facility] completed ICD-10 update of inactive term BMI 35-39 ISOLATED (SEE ACTUAL BMI) 01/17/2010 Overview: Per Obesity Protocol, #19 BPH without obstruction/lower urinary tract symp toms 08/19/2009 Dyslipidemia, goal LDL below 70 07/21/2009 Overview: Per Lipid Taxonomy. documented as of this encounter (statuses as of 10/30/2023) Resolved Problems Problem Noted Date Diagnosed Date [...] Prediabetes 10/17/2021 08/16/2023 Overview: Per Prediabetes protocol Paroxysmal atrial fibrillation 09/22/2021 10/12/2023 Chronic systolic HF (heart failure) 11/22/2020 10/12/2023 Coronary artery disease invo lving [place] coronary artery of [place] heart without angina pectoris 07/06/2020 10/12/2023 Chronic [...] 09/23/201305/17 Claudication 05/13/2013 10/12/2023 [employer] Other*[id number] 04/23/2012 09/12/2016 Overview: Study Title: Genomic Markers for Patients with Cardiovascular Disease Project # [id number] Airframe Technical Officer: Comfort Aviles MD [phone] Impotence of organic origin 02/16/2011 01/10/2018 Shortness [...] as of this encounter (statuses as of 10/30/2023) Immunizations Name Administration Dates Next Due COVID-19 [...] do you have serious difficulty h earing? No-[place] 11/14/2019 Are you blind or do [...] encounter Miscellaneous Notes * Telephone Encounter - Sarah Nunez DO - 10/30/2023 11:44 AM EDTSigned Prescriptions: Disp Refills Eliquis 5 MG Oral Tablet (Apixaban) 60 Tab*11 Sig: TAKE 1 TABLET BY MOUTH TWICE DAILY Authorizing Provider: SARAH NUNEZ * Telephone Encounter - [facility] - 10/30/2023 10:12 AM EDTPending Prescriptions: Disp Refills Eliquis 5 MG Oral Tablet (Apixaban) 60 Tab*11 Sig: TAKE 1 TABLET BY MOUTH TWICE DAILY * Telephone Encounter - Fariba Gottlieb N[facility] - 10/30/2023 10:07 AM EDT Pending Prescriptions: Disp Refills Eliquis 5 MG Oral Tablet (Apixaban) [Phar*60 Tab*11 Sig: TAKE 1 TABLET BY MOUTH TWICE DAILY Patient Active Problem List Diagnosis Code Dyslipidemia, goal LDL below 70 E78.5 BPH without obstruction/lower urinary tract symptoms N40.0 BMI 35-39 ISOLATED (SEE ACTUAL BMI) E66.9 Obstructive sleep apnea G47.33 Hx of nonmelanoma skin cancer Z85.828 H/O dysplastic nevus Z86.018 Thoracic aortic aneurysm without rupture (HCC) I71.20 Basal cell carcinoma (BCC) of right ala nasi C44.311 Squamous cell carcinoma of ala nasi C44.321 COPD, group D, by GOLD 2017 classification ([facility]) J44.9 Basal cell carcinoma (BCC) of right nasal tip C44.311 Closed fracture of right ankle with routine healing S82.891D PVD (peripheral vascular disease) ([facility]) I73.9 Controlled substance agreement signed Z79.899 LBBB (left bundle branch block) I44.7 Biventricular ICD (implantable cardioverter-defibrillator) in place Z95.810 Tobacco dependence F17.200 Adjustment disorder with anxious mood F43.22 Pulmonary emphysema ([facility]) J43.9 Atherosclerotic heart disease of [place] coronary artery with other forms of angina pectoris ([facility]) I25.118 Moderate episode of recurrent major depressive disorder ([facility]) F33.1 Elevated uric acid in blood E79.0 Right lower lobe pulmonary nodule R91.1 Presence of coronary angioplasty implant and graft Z95.5 Chronic bilateral low back pain without sciatica M54.50, G89.29 Juxtarenal abdominal aortic aneurysm (AAA) without rupture ([facility]) I71.42 Other persistent atrial fibrillation ([facility]) I48.19 Alcohol consumption binge drinking F10.10 Claustrophobia F40.240 Positive colorectal cancer screening using Cologuard test R19.5 Chronic systolic congestive heart failure ([facility]) I50.22 Cardiomyopathy ([facility]) I42.9 Neuropathic pain of both feet G57.93 Hypertension I10 Difficulty using continuous positive airway pressure (CPAP) device Z78.9 Last Visit: 09/18/2023 (in office), 11/25/2019 (telemedicine) Next Visit: 04/22/2024 Results for orders placed or performed in visit on 10/19/23 RENAL FUNCTION PANEL Result Value Ref Range BUN 45 (H) 6 - 20 mg/dL Creatinine 1.6 (H) 0.6 - 1.2 mg/dL Estimated Glomerular Filtration Rate 44 (L) >=60 mL/min Sodium 138 135 - 146 mmol/L Potassium 3.1 (L) 3.5 - 5.1 mmol/L Chloride 91 (L) 98 - 107 mmol/L CO2 31 22 - 32 mmol/L Anion Gap 16 (H) 7 - 15 mmol/L Glucose 157 (H) 70 - 120 mg/dL Calcium 9.3 8.4 - 10.2 mg/dL Albumin 4.3 3.8 - 5.0 g/dL Phosphorus 2.7 2.5 - 4.8 mg/dL *Note: Due to a large number of results and/or encounters for the requested time period, some results have not been displayed. A complete set of results can be found in Results Review. documented in this encounter Plan of Treatment Upcoming Encounters Date Type Department Care Team ([facility] st Contact Info) Description 10/31/2023 11:10 AM EDT Office Visit [facility] [address] [place] [phone] Buster Jessica MD [address] [place] [address] 11/01/2023 1:30 PM EDT Telemedicine [facility] [place] [place] [address] [place] [address] Grisel Richter CRNP [address] [place] [address] Clary Eastman, Community Health Art Conservator [address] [place] [address] 11/21/2023 10:55 AM EDT Hospital Encounter [facility], Operating Room [facility] [address] [place] [phone] Freeman Beaulieu, DO [address] [place] [phone] 11/21/2023 10:55 AM EDT - 11/21/2023 11:20 AM EDT Surgery [facility], Operating Room [facility] [address] [place] [phone] Freeman Beaulieu, [address] [place] [address] INJECTION SACROILIAC JOINT 11/22/2023 10:00 AM EDT Home Visit [facility] [place] [place] [address] [place] [address] Lisa Tenorio RN [address] [place] [address] 01/15/2024 10:40 AM EDT Office Visit [facility] [address] [place] [phone] Clair Quarles DO [address] [place] [address] 04/22/2024 9:30 AM EDT Cardiac Studies Cardiology, [facility] [address] [facility] [place] [address] [facility] [address] [place] [address] 05/19/2024 9:30 AM EDT Appointment Radiology, [address] [phone] Scheduled Procedures Name Priority Associated [...] exists DISCUSS TOBACCO CESSATION (REFER TO SMARTSET #3431) 06/02/2023 06/02/2022, 07/21/2020 Depression, Most Recent Score >= 10 (will fire each visit until score < 10) 08/30/2023 08/29/2023 GFR 10/18/2024 10/19/2023, 03/11/2023, 09/27/2023, Additional history exists O2 ASSESSMENT COMPLETED IN PAST YEAR FOR COPD 10/28/2024 10/29/2023 Albumin/Creatinine Ratio 06/06/2026 06/06/2023 COLONOSCOPY-EVERY 5 YRS AGES 18-100 10/28/2027 10/27/2022, 04/21/2014, 04/21/2014, Additional history exists DTaP,Tdap,and Td Vaccines (3 - Td or Tdap) 04/13/2030 04/13/2020 (Declined), 08/19/2009 Alpha-1 Antitrypsin Completed 02/19/2020 Pneumococcal Vaccine: 65+ Years Completed 05/27/2020, 12/02/2018, 09/10/2008 LUNG CANCER SCREENING - USE SMARTSET 78679 Completed 08/22/2022, 05/22/2022, 02/21/2021, Additional history exists [...] this encounter Medical Devices Implanted Type Area Teasel Setter Device Identifier Shelf Expiration Date Model / Serial / Lot 32mm X 109mm, Zenith Fenestrated Aaa Endovascular Proximal Body Graft, Two Proximal Internal Stent Implanted:Qty: 1 on 04/15/2018 by Evens Hoyt [place] [facility] [place]A: Aorta [employer] 03/20/2021 ZFEN-P-2- [id number] / / [id number] Stent Graft [id number] - [id number] - [id number] Implanted:Qty: 1 on 04/15/2018 by Evens Hoyt MD [place] [facility] Right: Renal Artery GETINGE : MAQUET 11/30/2020 00910 / [id number] / [id number] Stent Graft [id number] - [id number] - [id number] Implanted:Qty: 1 on 04/15/2018 by Evens Hoyt MD [place] [facility] Right: Renal Artery GETINGE : MAQUET 11/30/2020 36419 / [id number] / [id number] 28mm X 76mm Distal, 12mm Ipsilateral Leg, Zenith Fenestrated Aaa Endovascular Distal Bifurcated Body Graft Implanted:Qty: 1 on 04/15/2018 by Evens Hoyt MD at [place] [facility] N/A: Aorta [employer] 03/20/2021 ZFEN-D-12 -28-76-C / / [id number] Graft Iliac Leg Spirlz [id number] - [id number] Implanted:Qty: 1 on 04/15/2018 by Evens Hoyt MD at [place] [facility] Left: Iliac [employer] 09/14/2020 [id number] / / [id number] Graft Iliac Leg Spirlz [id number] - [id number] Implanted:Qty: 1 on 04/15/2018 by Evens Hoyt MD [place] [facility] Right: Iliac [employer] 11/09/2020 [id number] / / [id number] Transfixation Pin 6mm 294.950 - [id number] Implanted:Qty: 1 on 11/14/2019 by Mayank Friedman MD at OR [facility] Right: Ankle SYNTHES 294.950 / / Description:transfixation pi n Screw Schanz [id number] - [id number] Implanted:Qty: 2 on 11/14/2019 by Mayank Friedman MD at OR [facility] Right: Leg Lower SYNTHES 294.786SH A / / Description:self drilling sh antz screws 5.0mm x 200mm Superior Trauma 2.7 Lock Screw 16mm Implanted:Qty: 2 on 11/27/2019 by Sarah Ramirez Jr., MD at [place] [facility] Right: Ankle ESTHELA : TRAUMA [id number] / / Description:hardware set Superior Trauma 2.7 Lock Screw 14mm Implanted:Qty: 1 on 11/27/2019 by Sarah Ramirez Jr., MD at [place] [facility] [place]: Ankle ESTHELA : TRAUMA [id number] / / Superior Trauma 3.5 Screw 14mm Implanted:Qty: 1 on 11/27/2019 by Sarah Ramirez Jr., MD at [place] [facility] Right: Ankle ESTHELA : TRAUMA [id number] / / Description:hardware set Superior Trauma 3.5 Screw 18mm Implanted:Qty: 1 on 11/27/2019 by Sarah Ramirez Jr., MD at [place] [facility] Right: Ankle ESTHELA : TRAUMA [id number] / / Description:hardware set Esthela 3.5 Lockscrew 16mm Implanted:Qty: 1 on 11/27/2019 by Sarah Ramirez Jr., MD at [place] [facility] Right: Ankle [id number] / / Superior 2.0 Plate Implanted:Qty: 1 on 11/27/2019 by Sarah Ramirez Jr., MD at [facility] Right: Ankle [id number] / / Superior 2.0 Lock Screw Implanted:Qty: 2 on 11/27/2019 by Sarah Ramirez Jr., MD at [facility] Right: Ankle [id number] / / Superior 2.0 Lock Screw Implanted:Qty: 1 on 11/27/2019 by Sarah Ramirez Jr., MD at [place] [facility] [place]: Ankle [id number] / / Esthela 2.0 Lock Screw Implanted:Qty: 1 on 11/27/2019 by Sarah Ramirez Jr., MD at [place] [facility] Right: Ankle [id number] / / Plate Fib 5h 40- - [id number] Implanted:Qty: 1 on 11/27/2019 by Sarah Ramirez Jr., MD [place] [facility] Right: Ankle ESTHELA : TRAUMA / / Description:hardware set documented as of this encounter Visit Diagnoses Diagnosis Persistent atrial fibrillation (HCC)- Primary Atrial fibrillation Inflammation of sacroiliac joint (HCC) [...] the patient have Health Care Power of Sanitation Laborer? No Full Code 02/17/2019 12:06 PM 02/18/2019 1:09 PM This order reflects the patients wishes and were consensually agreed upon. Question Answer Comments Discussion of Advance Directives occurred with: Not Discussed Does the patient have a Living Will? No Does the patient have Health Care Power of Sanitation Laborer? No Full Code 04/15/2018 12:43 PM 04/16/2018 2:43 PM This order reflects the patients wishes and were consensually agreed upon. Care Teams Loan Interviewer Relationship Specialty Start Date End Date Buster Jessica MD [address] [place] [phone] PCP - General Family Medicine 09/11/22 documented as of this encounter
--- OUTSIDE RECORDS SUMMARY | 2023-12-11 18:50 | External Medical Summary ---
Author Name Unknown Address Unknown Organization [id number]:[facility] [address] [place] [address] Laboratory Report Ordering Provider Test Date Status HUMERA PATINO 10/30/2023 11:12:29 Final Observation Date Value Abnormality Reference (Units ) Status BUN 10/30/2023 11:12:29 34 Above high normal 6-20 (mg/dL) Final Creatinine 10/30/2023 11:12:29 1.2 0.6-1.2 (mg/dL) Final Glomerular filtration rate/1.73 sq M.predicted [Volume Rate/Area] in Serum, Plasma or Blood by Creatinine-based formula (CKD-EPI) 10/30/2023 11:12:29 62 >=60 (mL/min) Final eGFR is calculated based on the CKD-EPI 2020 equation Sodium 10/30/2023 11:12:29 137 135-146 (m mol/L) Final Potassium 10/30/2023 11:12:29 3.2 Below low normal 3.5 -5.1 (mmol/L) Final Cl 10/30/2023 11:12:29 88 Below low normal 98- 107 (mmol/L) Final CO2 10/30/2023 11:12:29 34 Above high normal 22 -32 (mmol/L) Final Anion gap 10/30/2023 11:12:29 15 7-15 (mmol /L) Final Glucose 10/30/2023 11:12:29 237 Above high normal 70 -120 (mg/dL) Final Calcium 10/30/2023 11:12:29 9.4 8.4-10.2 ( mg/dL) Final Albumin 10/30/2023 11:12:29 4.1 3.8-5.0 (g /dL) Final Phosphate 10/30/2023 11:12:29 3.1 2.5-4.8 (m g/dL) Final Performing Location [facility] [place] [address] [place] [address]
--- OUTSIDE RECORDS SUMMARY | 2023-12-11 18:50 | External Medical Summary | Summary of Care ---
Author Name Unknown Organization [facility] Address [address] [place] [address] Phone [phone] Care Team Providers Care Airplane Pilot Name Role Phone Buster Jessica MD Primary Care P rovider Reason for Visit * Reason Comments Outpatient Testing Encounter Details Date Type Department Care Team (Late st Contact Info) Description 10/30/2023 11:10 AM EDT Laboratory Laboratory Patient Service [address] [phone] [address] Ischemic cardiomyopathy Allergies Active Allergy Reactions Criticality Noted Date [...] (Demadex)Indications :Heart failure, systolic, due to CAD ([facility]) Take 1 tablet by mouth every morning. Take 1 tab on Sunday, Sunday and Sunday afternoon. 150 Tablet 3 08/28/2022 Active Additional Information Patient taking differently: Take 1 tablet by mouth every morning. Take an additional tablet on Sunday, Sunday and Sunday afternoon only., Reported on 09/18/2023 Eliquis 5 MG Oral Tablet (Apixaban) TAKE 1 TABLET BY MOUTH TWICE DAILY 60 Tablet 11 10/17/2022 Active Vitamin C 1000 MG Oral Tablet Take 1 Tablet by mouth in the morning. 0 Active Potassium Chloride ER 10 MEQ Oral Tablet Extended ReleaseIndications:H TN, goal below 140/90,Paroxysmal atrial fibrillation ([facility]),LBBB (left bundle branch block) TAKE 2 TABLETS BY MOUTH ONCE DAILY IN THE MORNING AND ONE TAB IN THE EVENING 270 Tablet 3 02/07/2023 Active Metoprolol Succinate ER 100 MG Oral Tablet Extended Release 24 Hour (toPROL XL) TAKE ONE TABLET BY MOUTH ONCE DAILY 90 Tablet 3 03/08/2023 Active Clopidogrel Bisulfate 75 MG Oral Tablet (pLAVix)Indications: PAD (peripheral artery disease) ([facility]),Coronary artery disease involving squaxin coronary artery of squaxin heart without angina pectoris TAKE ONE TABLET BY MOUTH ONCE DAILY 90 Tablet 3 03/13/2023 Active Famotidine 20 MG Oral Tablet (Pepcid) TAKE 1 TABLET BY MOUTH TWICE DAILY (MORNING AND AT BEDTIME) 180 Tablet 3 04/30/2023 Active Spironolactone 25 MG Oral Tablet (Aldactone)Indicatio ns:Coronary artery disease involving squaxin coronary artery of squaxin heart without angina pectoris,Heart failure, systolic, due to CAD ([facility]),Chronic ischemic heart disease,HTN, goal below 140/90 TAKE ONE TABLET BY MOUTH ONCE DAILY 90 Tablet 3 05/14/2023 Active Losartan Potassium 25 MG Oral Tablet (Cozaar)Indications: PAD (peripheral artery disease) ([facility]),Coronary artery disease involving squaxin coronary artery of squaxin heart without angina pectoris TAKE ONE TABLET [...] heart disease,Tobacco use disorder,Coronary artery disease involving squaxin coronary artery of squaxin heart without angina pectoris Inject 140 mg [...] OPD, group D, by GOLD 2017 classification ([facility]) Take 1 Capsule by mouth 3 [...] suspected opioid overdose. Seek immediate medical attention. [email or web address]?[email or web address] 1 Each 3 09/15/2023 Active Tamsulosin HCl 0.4 MG Oral Capsule (Flomax) TAKE 1 CAPSULE BY MOUTH ONCE DAILY IN THE MORNING 90 Capsule 3 09/21/2023 Active Desvenlafaxine Succinate ER 100 MG Oral [...] to torsemide 4 Tablet 5 10/22/2023 Active methylPREDNISolone 4 MG Oral Tablet Therapy Pack (Medrol Dosepack) Take as per instructions on package. 21 Each 0 10/25/2023 Active oxyCODONE-Acetaminop hen 10-325 MG Oral TabletIndications:Ch ronic bilateral low back pain without sciatica Take 1 Tablet by mouth every 6 hours as needed for Pain, Severe. 30 Tablet 0 10/25/2023 Active Fluticasone-Salmeter ol 250-50 MCG/ACT Inhalation Aerosol Powder Breath Activated (Wixela Inhub)Indications:CO PD, group D, by GOLD 2017 classification ([facility]) Inhale 1 Puff by mouth in the morning and 1 Puff before bedtime. 180 Each 12 10/29/2023 Active Albuterol Sulfate (2.5 MG/3ML) 0.083% Inhalation Nebulization Solution (Proventil)Indicatio ns:COPD, group D, by GOLD 2017 classification ([facility]) Inhale 1 Vial via nebulizer every 4 hours as needed for Wheezing. 75 mL 1 10/29/2023 Active documented as of this encounter (statuses [...] emphysema 09/22/2021 Atherosclerotic heart diseas e of squaxin coronary artery with other forms of angina [...] untreated, BMI 43.71 kg/m, NECK: 21 inches, [place] 6/24, sent for bipap titration study 01/11/11 case per [facility] completed ICD-10 update of inactive term BMI [...] 11/22/2020 10/12/2023 Coronary artery disease invo lving squaxin coronary artery of squaxin heart without angina pectoris 07/06/2020 10/12/2023 Chronic [...] 09/23/201305/17 Claudication 05/13/2013 10/12/2023 [employer] Other*[id number] 04/23/2012 09/12/2016 Overview: Study Title: Genomic Markers for Patients with Cardiovascular Disease Project # [id number] Gum Rolling Machine Tender: Comfort Aviles MD [phone] Impotence of organic origin 02/16/2011 01/10/2018 Shortness [...] do you have serious difficulty h earing? No-CHEFORNAK 11/14/2019 Are you blind or do you [...] No 11/14/2019 documented as of this encounter Plan of Treatment Upcoming Encounters Date Type Department Care Team (Late st Contact Info) Description 10/31/2023 11:10 AM EDT Office Visit [facility] [address] [place] [address] Buster Jessica MD [address] [place] [address] 11/01/2023 1:30 PM EDT Telemedicine [facility], [facility] [address] [place] [address] Grisel Richter CRNP [address] [place] [address] Clary Eastman, [facility] [address] [place] [address] 11/21/2023 10:55 AM EDT Hospital Encounter [facility], Operating Room [facility] [address] [place] [phone] Freeman Beaulieu, [address] [place] [phone] 11/21/2023 10:55 AM EDT - 11/21/2023 11:20 AM EDT Surgery [facility], Operating Room [facility] [address] [place] [phone] Freeman Beaulieu, [address] [place] [phone] INJECTION SACROILIAC JOINT 11/22/2023 10:00 AM EDT Home Visit [facility], [facility] [address] [place] [address] Lisa Tenorio RN [address] [place] [address] 01/15/2024 10:40 AM EDT Office Visit [facility] [address] [place] [phone] Clair Quarles, [address] [place] [address] 04/22/2024 9:30 AM EDT Cardiac Studies Cardiology, [facility] [address] [place] [address] [place], Pacer Clinic [facility] [address] [place] [address] 05/19/2024 9:30 AM EDT Appointment Radiology, [address] [address] Pending Results Name Type Priority Associated Diagnoses Date /Time RENAL FUNCTION PANEL Lab Routine Ischemic cardiomyopathy 10/30/2023 11:12 AM EDT Scheduled Procedures Name Priority Associated Diagnoses Date/Ti [...] < 10) 08/30/2023 08/29/2023 GFR 10/18/2024 10/19/2023, 11/2023, 09/27/2023, Additional history exists O2 ASSESSMENT COMPLETED IN PAST YEAR FOR COPD 10/28/2024 10/29/2023 Albumin/Creatinine Ratio 06/06/2026 06/06/2023 COLONOSCOPY-EVERY 5 YRS AGES 18-100 10/28/2027 10/27/2022, 04/21/2014, 04/21/2014, Additional history exists DTaP,Tdap,and Td Vaccines (3 - Td or Tdap) 04/13/2030 04/13/2020 (Declined), 08/19/2009 Alpha-1 Antitrypsin Completed 02/19/2020 Pneumococcal Vaccine: 65+ Years Completed 05/27/2020, 12/02/2018, 09/10/2008 LUNG CANCER SCREENING - USE SMARTSET [id number] Completed 08/22/2022, 05/22/2022, 02/21/2021, Additional history exists [...] this encounter Medical Devices Implanted Type Area Card Player Device Identifier Shelf Expiration Date Model / Serial / Lot 32mm X 109mm, Zenith Fenestrated Aaa Endovascular Proximal Body Graft, Two Proximal Internal Stent Implanted:Qty: 1 on 04/15/2018 [place]ens Hoyt [place] [facility] [place]: [place]orta [facility] 03/20/2021 ZFEN-P-2- [id number] / / [id number] Stent Graft [id number] - [id number] - [id number] Implanted:Qty: 1 on 04/15/2018 by Evens Hoyt [place] [facility] [place]: Renal Artery GETINGE : MAEMERITAT 11/30/2020 [id number] / [id number] / [id number] Stent Graft [id number] - [id number] - [id number] Implanted:Qty: 1 on 04/15/2018 by Evens Hoyt MD [place] [facility] [place]: Renal Artery GETINGE : MAQUET 11/30/2020 [id number] / [id number] / [id number] 28mm X 76mm Distal, 12mm Ipsilateral Leg, Zenith Fenestrated Aaa Endovascular Distal Bifurcated Body Graft Implanted:Qty: 1 on 04/15/2018 by Evens Hoyt MD [place] [facility] [place]: Aorta [employer] 03/20/2021 ZFEN-D-12 -28-76-C / / [id number] Graft Iliac Leg Spirlz [id number] - [id number] Implanted:Qty: 1 on 04/15/2018 by Evens Hoyt MD [place] [facility] [place]: Iliac [employer] 09/14/2020 [id number] / / [id number] Graft Iliac Leg Spirlz 68r92zs - [id number] Implanted:Qty: 1 on 04/15/2018 by Evens Hoyt MD [place] [facility] [place]: Iliac [employer] 11/09/2020 [id number] / / [id number] Transfixation Pin 6mm 294.950 - [id number] Implanted:Qty: 1 on 11/14/2019 by Mayank Friedman MD at OR [facility] Right: Ankle SYNTHES 294.950 / / Description:transfixation pi n Screw Schanz 5.4lgg630kc - [id number] Implanted:Qty: 2 on 11/14/2019 by Mayank Friedman MD at OR [facility] Right: Leg Lower SYNTHES 294.786SH A / / Description:self drilling sh antz screws 5.0mm x 200mm Esthela Trauma 2.7 Lock Screw 16mm Implanted:Qty: 2 on 11/27/2019 by Donavan Ramirez Jr., MD at [facility] Right: Ankle ESTHELA : TRAUMA [id number] / / Description:hardware set Esthela Trauma 2.7 Lock Screw 14mm Implanted:Qty: 1 on 11/27/2019 by Donavan Ramirez Jr., [place] [facility] [place]: Ankle ESTHELA : TRAUMA [id number] / / Chavies Trauma 3.5 Screw 14mm Implanted:Qty: 1 on 11/27/2019 by Donavan Ramirez Jr., [place] [facility] [place]: Ankle ESTHELA : TRAUMA [id number] / / Description:hardware set Chavies Trauma 3.5 Screw 18mm Implanted:Qty: 1 on 11/27/2019 by Donavan Ramirez Jr., MD at [facility] Right: Ankle ESTHELA : TRAUMA [id number] / / Description:hardware set Chavies 3.5 Lockscrew 16mm Implanted:Qty: 1 on 11/27/2019 by Donavan Ramirez Jr., [place] [facility] [place]: Ankle [id number] / / Chavies 2.0 Plate Implanted:Qty: 1 on 11/27/2019 by Donavan Ramirez Jr., [place] [facility] [place]: Ankle [id number] / / Esthela 2.0 Lock Screw Implanted:Qty: 2 on 11/27/2019 by Donavan Ramirez Jr., [place] [facility] [place]: Ankle [id number] / / Chavies 2.0 Lock Screw Implanted:Qty: 1 on 11/27/2019 by Donavan Ramirez Jr., [place] [facility] [place]: Ankle [id number] / / Chavies 2.0 Lock Screw Implanted:Qty: 1 on 11/27/2019 by Donavan Ramirez Jr., [place] [facility] [place]: Ankle [id number] / / Plate Fib 5h [id number] - [id number] Implanted:Qty: 1 on 11/27/2019 by Donavan Ramirez Jr., [place] [facility] [place]: Ankle ESTHELA : TRAUMA / / Description:hardware set documented as of this encounter Visit Diagnoses Diagnosis Ischemic cardiomyopathy Other specified forms of chronic ischemic heart disease Inflammation of sacroiliac joint (HCC) Sacroiliitis, not [...] the patient have Health Care Power of Orthodontic Assistant? No Full Code 02/17/2019 12:06 PM 02/18/2019 1:09 PM This order reflects the patients wishes and were consensually agreed upon. Question Answer Comments Discussion of Advance Directives occurred with: Not Discussed Does the patient have a Living Will? No Does the patient have Health Care Power of Orthodontic Assistant? No Full Code 04/15/2018 12:43 PM 04/16/2018 2:43 PM This order reflects the patients wishes and were consensually agreed upon. Care Teams Airplane Pilot Relationship Specialty Start Date End Date Buster Jessica MD [address] [place] [address] [phone] PCP - General Family Medicine 09/11/22 documented as of this encounter
--- OUTSIDE RECORDS SUMMARY | 2023-12-11 18:50 | External Medical Summary | Summary of Care ---
Author Name Unknown Organization [facility] Address [address] [place] [address] Phone [phone] Care Team Providers Care Special Tax Auditor Name Role Phone Buster Jessica MD Primary Care P rovider Reason for Visit * Reason Comments Follow Up Here return pulm. Encounter Details Date Type Department Care Team (Latest Contact Info) Description 10/29/2023 3:00 PM EDT Office Visit Pulmonary Medicine, [facility] [address] [facility] [place] [phone] Ej Noble [facility] [address] [facility] [id number] Nodule of right lung*; COPD, group D, by GOLD 2017 classification ([facility]) Allergies Active Allergy Reactions Criticality Noted Date Comments Atorvastatin Muscle pain,Unknown 01/18/2015 Medication intolerance, not an allergy Sacubitril-Valsartan Other (Please comment) 09/17/2020 Throat swelled Sacubitril High 07/20/2023 Other Reaction(s): THROAT SWELLING Simvastatin Low 06/23/2022 Other reaction(s): MUSCLE ACHES Valsartan High 07/20/2023 Other Reaction(s): THROAT SWELLING documented as of this encounter (statuses as of 10/29/2023) Medications Medication Sig Dispensed Refills Start Date [...] Oral Tablet (pLAVix)Indications :PAD (peripheral artery disease) ([facility]),Coronary artery disease involving anvik coronary artery of anvik heart without angina pectoris TAKE ONE TABLET BY MOUTH ONCE DAILY 90 Tablet 3 03/13/2023 Active Famotidine 20 MG Oral Tablet (Pepcid) TAKE 1 TABLET BY MOUTH TWICE DAILY (MORNING AND AT BEDTIME) 180 Tablet 3 04/30/2023 Active Spironolactone 25 MG Oral Tablet (Aldactone)Indicati ons:Coronary artery disease involving anvik coronary artery of anvik heart without angina pectoris,Heart failure, systolic, due to CAD (HCC),Chronic ischemic heart disease,HTN, goal below 140/90 TAKE ONE TABLET BY MOUTH ONCE DAILY 90 Tablet 3 05/14/2023 Active Losartan Potassium 25 MG Oral Tablet (Cozaar)Indications :PAD (peripheral artery disease) ([facility]),Coronary artery disease involving anvik coronary artery of anvik heart without angina pectoris TAKE ONE TABLET BY MOUTH ONCE DAILY 90 Tablet 3 06/04/2023 Active Baclofen 20 MG Oral TabletIndications:C hronic bilateral low back pain without sciatica Take 1 Tablet by mouth 3 times a day as needed for Muscle spasms. 90 Tablet 5 06/06/2023 Active Repatha SureClick 140 MG/ML Subcutaneous Solution Auto-injector (evolocumab)Indicat ions:Obstructive sleep apnea,Heart failure, systolic, due to CAD (HCC),Dyslipidemia, goal LDL below 70,Chronic ischemic heart disease,Tobacco use disorder,Coronary artery disease involving anvik coronary artery of anvik heart without angina pectoris Inject 140 mg (1 pen) under the skin every 14 days. 6 mL 3 07/02/2023 Active Metoprolol Succinate ER 50 MG Oral Tablet Extended Release 24 Hour (Toprol XL)Indications:Pers istent atrial fibrillation ([facility]),Acute on chronic systolic (congestive) heart failure ([facility]) One tablet by mouth daily at bedtime, this is in addition to the previous prescription for 100 milligrams daily in the morning. 90 Tablet 3 08/23/2023 Active Digoxin 125 MCG Oral Tablet (Lanoxin) Take 1 Tablet by mouth in the morning. 90 Tablet 08/23/2023 Active Benzonatate 100 MG Oral CapsuleIndications: COPD, group D, by GOLD 2017 classification ([facility]) Take 1 Capsule by mouth 3 times a day as needed for Cough. 30 Capsule 3 08/29/2023 Active ARIPiprazole 2 MG Oral Tablet (Abilify)Indication s:Moderate episode of recurrent major depressive disorder (HCC) Take 1 Tablet by mouth in the morning. 30 Tablet 1 09/06/2023 Active Naloxone HCl 4 MG/0.1ML Nasal Liquid (Narcan Nasal) Administer 1 spray into 1 nostril for suspected opioid overdose. Seek immediate medical attention. [email or web address] 1 Each 3 09/15/2023 Active Tamsulosin HCl [...] 09/21/2023 Active hydrOXYzine HCl 25 MG Oral TabletIndications:I nsomnia due to medical condition Take 0.5 Tablets by mouth at bedtime as needed for Other (sleep). 30 Tablet 1 10/12/2023 Active Allopurinol 100 MG Oral Tablet (Zyloprim)Indicatio ns:Acute gout of right hand, unspecified cause Take 1 Tablet by mouth in the morning. 30 Tablet 11 10/19/2023 Active metOLazone 2.5 MG Oral Tablet (Zaroxolyn)Indicati ons:Ischemic cardiomyopathy Take 1 Tablet by mouth once a week. take 30 minutes prior to torsemide 4 Tablet 5 10/22/2023 Active methylPREDNISolone 4 MG Oral Tablet Therapy Pack (Medrol Dosepack) Take as per instructions on package. 21 Each 0 10/25/2023 Active oxyCODONE-Acetamino phen 10-325 MG Oral TabletIndications:C hronic bilateral low back pain without sciatica Take 1 Tablet by mouth every 6 hours as needed for Pain, Severe. 30 Tablet 0 10/25/2023 Active Fluticasone-Salmete rol 250-50 MCG/ACT Inhalation Aerosol Powder Breath Activated (Wixela Inhub)Indications:C OPD, group D, by GOLD 2017 classification ([facility]) Inhale 1 Puff by mouth in the morning and 1 Puff before bedtime. 180 Each 12 10/29/2023 Active Albuterol Sulfate (2.5 MG/3ML) 0.083% Inhalation Nebulization Solution (Proventil)Indicati ons:COPD, group D, by GOLD 2017 classification ([facility]) Inhale 1 Vial via nebulizer every 4 hours as needed for Wheezing. 75 mL 1 10/29/2023 Active Albuterol Sulfate (2.5 MG/3ML) 0.083% Inhalation Nebulization Solution (Proventil)Indicati ons:COPD, group D, by GOLD 2017 classification ([facility]) Inhale 1 Vial via nebulizer every 4 hours as needed for Wheezing. 75 mL 1 04/23/2023 10/29/19 24 Discontinu ed(Refill) Fluticasone-Salmete rol 250-50 MCG/ACT Inhalation Aerosol Powder Breath Activated (Wixela Inhub)Indications:C OPD, group D, by GOLD 2017 classification ([facility]) Inhale 1 Puff by mouth in the morning and 1 Puff before bedtime. 60 Each 12 09/06/2023 10/29/19 24 Discontinu ed(Refill) documented as of this encounter (statuses as of 10/29/2023) Active Problems Problem Noted Date Diagnosed Date [...] emphysema 09/22/2021 Atherosclerotic heart diseas e of anvik coronary artery with other forms of angina [...] untreated, BMI 43.71 kg/m, NECK: 21 inches, [place] 6/24, sent for bipap titration study 01/11/11 case per P completed ICD-10 update of inactive term BMI 35-39 ISOLATED (SEE ACTUAL BMI) 01/17/2010 Overview: Per Obesity Protocol, #19 BPH without obstruction/lower urinary tract symp toms 08/19/2009 Dyslipidemia, goal LDL below 70 07/21/2009 Overview: Per Lipid Taxonomy. documented as of this encounter (statuses as of 10/29/2023) Resolved Problems Problem Noted Date Diagnosed Date [...] 11/22/2020 10/12/2023 Coronary artery disease invo lving anvik coronary artery of anvik heart without angina pectoris 07/06/2020 10/12/2023 Chronic systolic heart failure 07/06/2020 10/12/2023 Heart failure, systolic, due to CAD 06/04/2019 10/12/2023 Depression with anxiety 01/10/2018 02/2 08/2021 Morbid (severe) obesity due to excess calories 05/17/2017 03/14/2023 Sacroiliitis, not elsewhere classified 05/17/2017 01/10/2018 COPD, severity to be determined 08/18/2015 01/15/2019 Overview: Per COPD GOLD Classification Encounter for surveillance of abnormal nevi 04/06/2015 05/17/2017 Osteoarthritis of knee 09/23/201305/17 Claudication 05/13/2013 10/12/2023 [employer] Other*[id number] 04/23/2012 09/12/2016 Overview: Study Title: Genomic Markers for Patients with Cardiovascular Disease Project # [id number] Denture Technician: Comfort Aviles MD [phone] Impotence of organic origin 02/16/2011 01/10/2018 Shortness [...] as of this encounter (statuses as of 10/29/2023) Immunizations Name Administration Dates Next Due COVID-19 [...] Reading Time Taken Comments Blood Pressure 120/60 10/29/2023 2:37 PM EDT Pulse 102 10/29/2023 2:37 PM EDT Temperature 35.9 C (96.7 F) 10/29/2023 2:37 PM ED T Respiratory Rate 16 10/29/2023 2:37 PM EDT Oxygen Saturation 96% 10/29/2023 2:37 PM EDT ra-rest Inhaled Oxygen Concentration - - Weight 117.9 kg (260 lb) 10/29/2023 2:37 PM EDT Height 180.3 cm (5' 11") 10/29/2023 2:37 PM EDT Body Mass Index 36.26 10/29/2023 2:37 PM EDT documented in this encounter Functional Status Functional Status Response Date of Assess ment Are you deaf or do you have serious difficulty h earing? 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 Patient describes semi compliant status with Wixela inhaler, denies interval hospitalization. Episodic smoker's cough, continues to smoke. Smoking cessation counseling was discussed. Repeat CT scan chest shows interval resolution of right lower lobe nodular disease noted in August2023. Other Previously noted scattered parenchymal nodules remain unchanged. DATA CT scan chest 10/29/2023 shows resolution of previously noted right lower lobe nodules. Additional historical nodules remain unchanged. : LUNG SCREENING CT THORAX 08/2023: HISTORY: follow nodules - indolent growth RLL nodule since 2018 TECHNIQUE: Noncontrast low-dose CT (LDCT) chest per standard departmental protocol. COMPARISON: 02/19/2023 CT. FINDINGS: Lung Screening Specific (LungRADS): Redemonstration of a 1 cm nodule in the right lower lobe on image 173 of series 10. No significant change from recent studies. Marginal increase in size when compared to old studies. The nodule measured approximately 6 x 8 mm on 02/27/2018 CT. There is a new 8 x 10 mm nodule in the right lower lobe on image 242 of series 10. There is a new 8x 11 mm nodule in the right lower lobe on image 251 of series 10. Potentially Significant Incidentals (LungRADS Category S): None. Pulmonary incidentals: Atelectatic changes. Other Incidentals: Stable enlargement of the thyroid gland. Cardiomegaly. Bilateral gynecomastia. The spleen is mildly enlarged measuring 13.7 cm in AP dimension. Cholecystectomy. Vascular stents. Degenerative osseous changes. IMPRESSION IMPRESSION: 1. LungRADS Category 0: Incomplete. New right lower lobe nodules are probably infectious/inflammatory in nature. 2. LungRADS Category S: Negative, no new/unknown potentially significant incidental findings requiring additional evaluation. 3. Incidental findings as above. RECOMMENDATIONS: Follow-up low-dose CT in 3 months COVID nasopharyngeal swab from 06/24/2020 was negative. Alpha-1 antitrypsin level him 20 normal at 168 Pulmonary Function Test Results: 02/2020 my interpretation: BMI 40. Flow loops normal. Spirometry with restriction. There is no significant bronchodilator response. Lung volumes with normal TLC ruling out true restriction and there is air trapping. DLCO uncorrected for hemoglobi is normal.Overall: pseudorestriction with air trapping and normal DLCO. Suspected airways disease either COPD or asthma CT chest without contrast from 02/2019 per my interpretation there is mild upper lung field ground-glass opacities, there is minimal basilar atelectasis, there is a stable 8 mm right lower lobe nodule when compared to CT scan from 02/2018. There is calcified aorta and coronary arteries. There are no effusions. There is no mediastinal adenopathy. There are stents in the abdominal aorta and bilateral proximal renal arteries. There is a 2 cm nodule in the thyroid isthmus which is stable compared to CT scan from 02/2018. PSG 11/2005 showed severe BRIAN with AHI 60 Assessment COPD , smoking-related, emphysematous and chronic bronchitic phenotype, multiple exacerbations in the past year, M MRC 1, CT score 22 Tobacco dependence 2 packs per day since age 17 trying to quit but not yet ready to set a quit datedown to under 1 pack per day. Multiple pulmonary nodules measuring up to 8 mm in the abdomen stable Chronic heart failure reduced EF euvolemic by history today History of squamous cell carcinoma and basal cell carcinoma of the nose BRIAN intolerant of CPAP Morbid obesity with BMI 41.42 Lung nodule, right lower lobe Right lower lobe nodules noted in August 2023 have resolved. Additional historical nodules remain unchanged. Smoking cessation counseling was provided. Continue with LDCT surveillance COPD, group D, MMRC 4, CAT 27 Continue Wixela and prn albuterol-- he is semi compliant with his Wixela. Encourage continued use Tobacco use disorder Encourage cessation BRIAN, non compliant with CPAP Encouraged sleep medicine visit Allergic rhinitis Continue nasal sprays Obesity, Body mass index is 38.22 kg/m. Follow-up: Return in about 1 year (around 10/28/2024). | Check-out note: Lung Nodules COPD Active Smoker Hx of skin ca (sq cell) OSAS, not on CPAP Mobesity, BMI 36 Current BD Rx: Wixela + Albuterol neb Plan: RLL Nodules (new on 08/2023 CT) are RESOLVED C/w LDCT protocol Smoking cessation F/u 1 year Ej Noble MD Subjective CC: Chief Complaint Patient presents with Follow Up Here return pulm. HPI: Nursing Notes: Joanna York LPN 10/29/23 1441 Signed Chief Complaint Patient presents with Follow Up Here return pulm. Interm History/Respiratory Symptoms Cough: yes. Clear. Hemoptysis: no Sinus Symptoms: yes. Drainage. Hospitalizations: no ED Trips: no Triggers: no Nocturnal: sleeps with head elevated. CPAP/BiPAP/O2: no. Has bipap doesn't use it. Flu Vaccine: 2020 Pneumovax: 2020 Prevnar: 2017 COVID 19: x2. Travel Screening Question 10/29/2023 2:15 PM EDT - Filed by Patient Do you have any of the following new or worsening symptoms? Cough Shortness of breath Have you recently been in contact with someone who was sick? No / Unsure Mmrc Cat Question 10/29/2023 2:35 PM EDT - Filed by Joanna York LPN When do you become breathless? (1) I get short of breath when hurrying on level ground How frequently do you cough? (3) Do you have phlegm in your chest? (3) Is your chest tight? (0) - My chest does not feel tight at all How breathless do you become when walking up a hill or steps? (4) How limited are you doing activities at home? (5) - I am very limited doing activities at home How confident are you leaving home with your lung condition? (0) - I am confident leaving my home despite my condition How soundly do you sleep? (5) - I don't sleep soundly because of my lung condition How much energy do you have? (5) - I have no energy at all Total MMRC Score (range: 0 - 4) 1 Total CAT Score (range: 0 - 40) 25 Copd Rescue Question 10/29/2023 2:36 PM EDT - Filed by Joanna York LPN Have you used an antibiotic (e.g., azithromycin, doxycycline, augmentin) in the last 12 months because of your breathing or lung problem? No Have you added or increased the dose of a steroid (e.g., prednisone, solumedrol) in the last 12 months because of your breathing or lung problem? No Did you go to the ED, or were you hospitalized in the last 12 months because of your breathing or lung problem? No Myc Visit Accident Related Question Question 10/29/2023 2:36 PM EDT - Filed by Joanna Yokr LPN Is this visit related to an accident? (i.e work, motor vehicle) No Objective Filed Vitals: 03/25/24 1437 BP: 120/60 Pulse: 102 Resp: 16 Temp: 35.9 C (96.7 F) TempSrc: Tympanic SpO2: 96% Weight: 117.9 kg (260 lb) Height: 1.803 m (5' 11") Exam: Const: No signs of acute distress present. Head/Face: Normal on inspection. Eyes: Conjunctivae clear. Pupils equal round and reactive to light. ENMT: Oropharynx: No erythema, exudate or masses. Posterior pharynx is normal. Neck: Supple and symmetric. Resp: Respiratory examination as outlined above CV: Rate is regular. Rhythm is regular. No heart murmur appreciated. Extremities: No edema of the lower limbs bilaterally. Skin: Skin is warm and dry. Neuro: Coordination normal. No involuntary movement. Psych: Patient's attitude is cooperative. Mood is normal. Affect is normal. Tests reviewed with the patient: XR CHEST 2 VIEWS Result Date: 09/19/2023 IMPRESSION: Pulmonary vascular prominence suggesting pulmonary vascular congestion. No focal consolidation XR HAND 3 OR MORE VIEWS Result Date: 09/15/2023 IMPRESSION: Extra-articular fracture of the proximal phalanx of the small finger with palmar displacement of the distal fracture fragment 1 cortical width. THIS DOCUMENT HAS BEEN ELECTRONICALLY SIGNED BY JOSUE PATTERSON MD CT CHEST LUNG CANCER SCREEN 3 OR 6 MONTH FOLLOW UP Result Date: 08/28/2023 IMPRESSION: 1. LungRADS Category 0: Incomplete. New right lower lobe nodules are probably infectious/inflammatory in nature. 2. LungRADS Category S: Negative, no new/unknown potentially significant incidental findings requiring additional evaluation. 3. Incidental findings as above. RECOMMENDATIONS: Follow-up low-dose CT in 3 months INCOMPLETE REASON: New right lower lobe nodules are probably infe ctious/inflammatory in nature. XR CHEST 2 VIEWS Result Date: 07/19/2023 IMPRESSION No acute cardiopulmonary disease. CTA ABD/PELVIS Result Date: 05/08/2023 IMPRESSION Status post EVAR. No stent graft migration or endoleak. Continued decrease in size of aneurysm sac. Patent bilateral renal artery fenestrations. CT RECON ENDOVASC ANEURYSM REPAIR SURGERY PLAN Result Date: 05/08/2023 IMPRESSION Status post EVAR. No stent graft migration or endoleak. Continued decrease in size of aneurysm sac. Patent bilateral renal artery fenestrations. VASC ANKLE BRACHIAL INDICES WITHOUT PPG (PAD) Result Date: 05/08/2023 : MINDA at rest is 0.82 on the right and 0.95 on the left. For the right lower extremity: Lower extremity Doppler Evaluation is consistent with mild arterial occlusive disease. For the left lower extremity: Lower extremity Doppler Evaluation is normal at rest with no evidence of significant arterial occlusive disease. Available Radiologic data was reviewed by me in PACS. The images were shown to the patient and findings were discussed with the patient. HOME MEDICATIONS: Albuterol Sulfate (2.5 MG/3ML) 0.083% Inhalation Nebulization Solution (Proventil) Fluticasone-Salmeterol 250-50 MCG/ACT Inhalation Aerosol Powder Breath Activated (Wixela Inhub) methylPREDNISolone 4 MG Oral Tablet Therapy Pack (Medrol Dosepack) oxyCODONE-Acetaminophen 10-325 MG Oral Tablet metOLazone 2.5 MG Oral Tablet (Zaroxolyn) Allopurinol 100 MG Oral Tablet (Zyloprim) hydrOXYzine HCl 25 MG Oral Tablet Desvenlafaxine Succinate ER 100 MG Oral Tablet Extended Release 24 Hour (Pristiq) Tamsulosin HCl 0.4 MG Oral Capsule (Flomax) Naloxone HCl 4 MG/0.1ML Nasal Liquid (Narcan Nasal) ARIPiprazole 2 MG Oral Tablet (Abilify) Benzonatate 100 MG Oral Capsule Digoxin 125 MCG Oral Tablet (Lanoxin) Metoprolol Succinate ER 50 MG Oral Tablet Extended Release 24 Hour (Toprol XL) Repatha SureClick 140 MG/ML Subcutaneous Solution Auto-injector (evolocumab) Baclofen 20 MG Oral Tablet Losartan Potassium 25 MG Oral Tablet (Cozaar) Spironolactone 25 MG Oral Tablet (Aldactone) Famotidine 20 MG Oral Tablet (Pepcid) Clopidogrel Bisulfate 75 MG Oral Tablet (pLAVix) Metoprolol Succinate ER 100 MG Oral Tablet Extended Release 24 Hour (toPROL XL) Potassium Chloride ER 10 MEQ Oral Tablet Extended Release Vitamin C 1000 MG Oral Tablet Eliquis 5 MG Oral Tablet (Apixaban) Torsemide 100 MG Oral Tablet (Demadex) ROS: No reported history of Hemoptysis, Hematemesis, Melena No reported history of Dysuria, Hematuria, Flank Pain No reported history of chronic headache, seizures No reported history of Fall or trauma . No reported history of recent change in weight or appetite. Past Medical History: Diagnosis Date Anxiety state [...] performed by Mayank Friedman MD at OR [facility] BIMALLEOLAR ANKLE FX W/ FIXATION Right 11/27/2019 OPEN TREATMENT BIMALLEOLAR ANKLE FRACTURE performed by Donavan Ramirez Jr., MD at [facility] COLONOSCOPY THRU STOMA, W/BIOPSY 03/06/2011 fair prep, polyps x4, path shows adenomatous tissue repeat in 3 years COLONOSCOPY, DIAGNOSTIC (RECTUM) 04/21/2014 hyperplastic polyp, multiple cecal AVM's, repeat 5 yrs/COLONOSCOPY FLEXIBLE PROXIMAL DIAGNOSTIC performed by Jake Montoya MD at ENDOSCOPY [facility] COLONOSCOPY, DIAGNOSTIC (RECTUM) N/A 10/27/2022 [facility], Colonoscopy, multi polyps in cecum, transverse, recto-sigmoid / biopsies benign adenomatous polyp and serrated adenomatous polyps / 3 year recall CORONARY ANGIOGRAPHY W/LEFT HEART CATH Right 02/17/2019 CORONARY ANGIOGRAPHY W/LEFT HEART CATH performed by Winston Mckeon MD at [facility] CORONARY ANGIOGRAPHY W/LEFT HEART CATH Right 10/20/2020 CORONARY ANGIOGRAPHY W/LEFT HEART CATH performed by Winston Mckeon MD at [facility] CORONARY ANGIOGRAPHY W/LEFT HEART CATH Right 10/08/2023 CORONARY ANGIOGRAPHY W/LEFT HEART CATH performed by Thea Wilkes MD at [facility] CORONARY ANGIOGRAPHY W/RIGHT+LEFT CATH 04/23/2012 CORONARY ANGIOGRAPHY W/RIGHT+LEFT CATH performed by Donavan Egan MD at [facility] ENDOVASCULAR REPAIR AORTA/INFRARENAL 2 PROSTHESES N/A 04/15/2018 fenestrated endovascular aortic aneurysm repair, 2 vessel fenestrations (bilateral renal) and SMA scallop performed by Evens Hoyt MD at [facility] INTRAVASCULAR STENT, PERC, FIRST VESSEL OPEN FEMORAL ARTERY EXPOSURE FOR ENDOVASCULAR PROSTHESIS, UNILAT Bilateral 04/15/2018 bilateral femoral artery cutdowns performed by Evens Hoyt MD at OR [facility] REMOVE BONE FIXATION DEVICE Right 11/27/2019 REMOVAL OF EXTERNAL FIXATION performed by Donavan Ramirez Jr., MD at [facility] SACROILIAC JOINT INJECT W/GUIDANCE 02/14/2023 INJECTION SACROILIAC JOINT performed by Rajinder Corado DO at OR [facility] SACROILIAC JOINT INJECT W/GUIDANCE 07/11/2023 INJECTION SACROILIAC JOINT performed by Rajinder Corado DO at OR [facility] Social History Socioeconomic History Marital status: Spouse name: Ganesh Number of children: 2 Occupational History 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 Employer: [employer] 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 Tobacco Use Smoking status: Every Day Current packs/day: 1.00 Average packs/day: 1 pack/day for 52.0 years (52.0 ttl pk-yrs) Types: Cigarettes Smokeless tobacco: Never Tobacco comments: pack per day.10/29/23 Vaping Use Vaping Use: Never used Substance and Sexual Activity Alcohol use: Yes Comment: rare Drug use: No Sexual activity: Yes Partners: Female Social History Narrative 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 Social Determinants of Health Food Insecurity: No Food Insecurity (08/29/2023) Hunger Vital Sign Worried About Running Out of Food in the Last Year: Never true Ran Out of Food in the Last Year: Never true Family History Problem Relation Age of Onset Cancer Mother basal cell Cancer Father throat Other (SLEEP) Sister BRIAN Review of patient's allergies indicates: Allergen Reactions Sacubitril Other Reaction(s): THROAT SWELLING Valsartan Other Reaction(s): THROAT SWELLING Atorvastatin Muscle pain and Unknown Medication intolerance, not an allergy Entresto [Sacubitril-Valsartan] Other (Please comment) Throat swelled Simvastatin Other reaction(s): MUSCLE ACHES documented in this encounter Nursing Notes * Joanna York LPN - 10/29/2023 2:39 PM EDT Chief Complaint Patient presents with Follow Up Here return pulm. Interm History/Respiratory Symptoms Cough: yes. Clear. Hemoptysis: no Sinus Symptoms: yes. Drainage. Hospitalizations: no ED Trips: no Triggers: no Nocturnal: sleeps with head elevated. CPAP/BiPAP/O2: no. Has bipap doesn't use it. Flu Vaccine: 2020 Pneumovax: 2020 Prevnar: 2017 COVID 19: x2. Travel Screening Question 10/29/2023 2:15 PM EDT - Filed by Patient Do you have any of the following new or worsening symptoms? Cough Shortness of breath Have you recently been in contact with someone who was sick? No / Unsure Mmrc Cat Question 10/29/2023 2:35 PM EDT - Filed by Joanna York LPN When do you become breathless? (1) I get short of breath when hurrying on level ground How frequently do you cough? (3) Do you have phlegm in your chest? (3) Is your chest tight? (0) - My chest does not feel tight at all How breathless do you become when walking up a hill or steps? (4) How limited are you doing activities at home? (5) - I am very limited doing activities at home How confident are you leaving home with your lung condition? (0) - I am confident leaving my home despite my condition How soundly do you sleep? (5) - I don't sleep soundly because of my lung condition How much energy do you have? (5) - I have no energy at all Total MMRC Score (range: 0 - 4) 1 Total CAT Score (range: 0 - 40) 25 Copd Rescue Question 10/29/2023 2:36 PM EDT - Filed by Joanna York LPN Have you used an antibiotic (e.g., azithromycin, doxycycline, augmentin) in the last 12 months because of your breathing or lung problem? No Have you added or increased the dose of a steroid (e.g., prednisone, solumedrol) in the last 12 months because of your breathing or lung problem? No Did you go to the ED, or were you hospitalized in the last 12 months because of your breathing or lung problem? No Myc Visit Accident Related Question Question 10/29/2023 2:36 PM EDT - Filed by Joanna York LPN Is this visit related to an accident? (i.e work, motor vehicle) No documented in this encounter Plan of Treatment Upcoming Encounters Date Type Department Care Team (Late st Contact Info) Description 10/31/2023 11:10 AM EDT Office Visit [facility] [address] [place] [phone] Buster Jessica MD [address] [place] [address] 11/01/2023 1:30 PM EDT Telemedicine [facility], [facility] [address] [place] [address] Grisel Richter CRNP [address] [place] [address] Clary Eastman, Community Health Clerical Assigner [address] [place] [address] 11/21/2023 10:55 AM EDT Hospital Encounter [facility], Operating Room [facility] [address] [place] [phone] Freeman Beaulieu, [address] [place] [phone] 11/21/2023 10:55 AM EDT - 11/21/2023 11:20 AM EDT Surgery [facility], Operating Room [facility] [address] [place] [phone] Freeman Beaulieu DO [address] [place] [phone] INJECTION SACROILIAC JOINT 11/22/2023 10:00 AM EDT Home Visit [facility], [facility] [address] [place] [address] Lisa Tenorio, RN [address] [place] [address] 01/15/2024 10:40 AM EDT Office Visit [facility]tr [facility] [address] [facility] [place] [phone] Clair Quarles DO [address] [place] [address] 04/22/2024 9:30 AM EDT Cardiac Studies Cardiology, [facility] [address] [facility] [place] [address] [facility] [address] [facility] [place] [address] 05/19/2024 9:30 AM EDT Appointment Radiology, [place] [id number] [place] [address] Scheduled Procedures Name Priority Associated [...] 09/10/2008 LUNG CANCER SCREENING - USE SMARTSET [id number] Completed 08/22/2022, 05/22/2022, 02/21/2021, Additional history exists [...] encounter Medical Devices Implanted Type Area Fish Processing Supervisor Device Identifier Shelf Expiration Date Model / Serial / Lot 32mm X 109mm, Zenith Fenestrated Aaa Endovascular Proximal Body Graft, Two Proximal Internal Stent Implanted:Qty: 1 on 04/15/2018 by Evens Hoyt MD at [place] [facility] N/A: Aorta [employer] 03/20/2021 ZFEN-P-2- 32-109-R / / [id number] Stent Graft [id number] - [id number] - [id number] Implanted:Qty: 1 on 04/15/2018 by Evens Hoyt MD at OR [facility] Right: Renal Artery GETINGE : MAQUET 11/30/2020 25660 / [id number] / [id number] Stent Graft [id number] - [id number] - [id number] Implanted:Qty: 1 on 04/15/2018 by Evens Hoyt MD at OR [facility] Right: Renal Artery GETINGE : MAQUET 11/30/2020 70811 / [id number] / [id number] 28mm X 76mm Distal, 12mm Ipsilateral Leg, Zenith Fenestrated Aaa Endovascular Distal Bifurcated Body Graft Implanted:Qty: 1 on 04/15/2018 by Evens Hoyt MD at OR [facility] N/A: Aorta [employer] 03/20/2021 ZFEN-D-12 -28-76-C / / [id number] Graft Iliac Leg Spirlz 16b02zd - [id number] Implanted:Qty: 1 on 04/15/2018 by Evens Hoyt MD at OR [facility] Left: Iliac [employer] 09/14/2020 [id number] / / [id number] Graft Iliac Leg Spirlz 05s84is - [id number] Implanted:Qty: 1 on 04/15/2018 by Evens Hoyt MD at OR [facility] Right: Iliac [employer] 11/09/2020 [id number] / / [id number] Transfixation Pin 6mm 294.950 - [id number] Implanted:Qty: 1 on 11/14/2019 by Mayank Friedman MD at OR [facility] Right: Ankle SYNTHES 294.950 / / Description:transfixation pi n Screw Schanz 5.1pqb763tm - [id number] Implanted:Qty: 2 on 11/14/2019 by Mayank Friedman MD at OR [facility] Right: Leg Lower SYNTHES 294.786SH A / / Description:self drilling sh antz screws 5.0mm x 200mm Esthela Trauma 2.7 Lock Screw 16mm Implanted:Qty: 2 on 11/27/2019 by Donavan Ramirez Jr., MD at OR [facility] Right: Ankle ESTHELA : TRAUMA [id number] / / Description:hardware set Esthela Trauma 2.7 Lock Screw 14mm Implanted:Qty: 1 on 11/27/2019 by Donavan Ramirez Jr., MD at OR [facility] Right: Ankle ESTHELA : TRAUMA [id number] / / Esthela Trauma 3.5 Screw 14mm Implanted:Qty: 1 on 11/27/2019 by Donavan Ramirez Jr., MD at OR [facility] Right: Ankle ESTHELA : TRAUMA [id number] / / Description:hardware set [place] Trauma 3.5 Screw 18mm Implanted:Qty: 1 on 11/27/2019 by Donavan Ramirez Jr., MD at OR [facility] Right: Ankle ESTHELA : TRAUMA [id number] / / Description:hardware set Esthela 3.5 Lockscrew 16mm Implanted:Qty: 1 on 11/27/2019 by Donavan Ramirez Jr., MD at [facility] Right: Ankle [id number] / / [place] 2.0 Plate Implanted:Qty: 1 on 11/27/2019 by Donavan Ramirez Jr., MD at [facility] Right: Ankle [id number] / / [place] 2.0 Lock Screw Implanted:Qty: 2 on 11/27/2019 by Donavan Ramirez Jr., MD at [facility] Right: Ankle [id number] / / Esthela 2.0 Lock Screw Implanted:Qty: 1 on 11/27/2019 by Donavan Ramirez Jr., MD at [facility] Right: Ankle [id number] / / [place] 2.0 Lock Screw Implanted:Qty: 1 on 11/27/2019 by Donavan Ramirez Jr., MD at OR [facility] Right: Ankle [id number] / / Plate Fib 5h 40- - [id number] Implanted:Qty: 1 on 11/27/2019 by Donavan Ramirez Jr., MD at [facility] Right: Ankle ESTHELA : TRAUMA / / Description:hardware set documented as of this encounter Visit Diagnoses Diagnosis Nodule of right lung- Primary Solitary pulmonary nodule COPD, group D, by GOLD 2017 classification (HCC) Inflammation of sacroiliac joint (HCC) Sacroiliitis, not [...] the patient have Health Care Power of Passenger Service Agent? No Full Code 02/17/2019 12:06 PM 02/18/2019 1:09 PM This order reflects the patients wishes and were consensually agreed upon. Question Answer Comments Discussion of Advance Directives occurred with: Not Discussed Does the patient have a Living Will? No Does the patient have Health Care Power of Passenger Service Agent? No Full Code 04/15/2018 12:43 PM 04/16/2018 2:43 PM This order reflects the patients wishes and were consensually agreed upon. Care Teams Special Tax Auditor Relationship Specialty Start Date End Date Buster Jessica MD [address] [place] [address] PCP - General Family Medicine 09/11/22 documented as of this encounter
--- OUTSIDE RECORDS SUMMARY | 2023-12-11 18:50 | External Medical Summary | Summary of Care ---
Author Name Unknown Organization [facility] Address [address] [place] [address] Phone [phone] Care Team Providers Care Propulsion Machinery Service Engineer Name Role Phone Buster Jessica MD Primary Care P rovider Reason for Visit * Reason Comments Outpatient Testing Encounter Details Date Type Department Care Team (Late st Contact Info) Description 10/30/2023 11:10 AM EDT Laboratory Laboratory Patient Service [address] [phone] [address] Ischemic cardiomyopathy Allergies Active Allergy Reactions Criticality [...] due to CAD ([facility]) Take 1 tablet by mouth [...] ReleaseIndications:H TN, goal below 140/90,Paroxysmal atrial fibrillation ([facility]),LBBB (left bundle branch block) TAKE 2 TABLETS [...] [facility]),Coronary artery disease involving [place] coronary artery of [place] heart without angina pectoris TAKE ONE TABLET BY MOUTH ONCE DAILY 90 Tablet 3 03/13/2023 Active Famotidine 20 MG Oral Tablet (Pepcid) TAKE 1 TABLET BY MOUTH TWICE DAILY (MORNING AND AT BEDTIME) 180 Tablet 3 04/30/2023 Active Spironolactone 25 MG Oral Tablet (Aldactone)Indicatio ns:Coronary artery disease involving [place] coronary artery of [place] heart without angina pectoris,Heart failure, systolic, due to CAD ([facility]),Chronic ischemic heart disease,HTN, goal below 140/90 TAKE ONE TABLET BY MOUTH ONCE DAILY 90 Tablet 3 05/14/2023 Active Losartan Potassium 25 MG Oral Tablet (Cozaar)Indications: PAD (peripheral artery disease) ([facility]),Coronary artery disease involving [place] coronary artery of [place] heart without angina pectoris TAKE ONE [...] heart disease,Tobacco use disorder,Coronary artery disease involving [place] coronary artery of [place] heart without angina pectoris Inject 140 [...] OPD, group D, by GOLD 2017 classification ([facility]) Take 1 Capsule by mouth [...] overdose. Seek immediate medical attention. [email or web address]://[email or web address]/[email or web address]?v=v26c [email or web address] 1 Each 3 09/15/2023 Active Tamsulosin HCl [...] emphysema 09/22/2021 Atherosclerotic heart diseas e of [place] coronary artery with other forms of [...] untreated, BMI 43.71 kg/m, NECK: 21 inches, [place] 6/24, sent for bipap titration study 01/11/11 case per [facility] completed ICD-10 update of inactive term BMI [...] 11/22/2020 10/12/2023 Coronary artery disease invo lving [place] coronary artery of [place] heart without angina pectoris 07/06/2020 10/12/2023 [...] 09/23/201305/17 Claudication 05/13/2013 10/12/2023 [employer] Other*[id number] 04/23/2012 09/12/2016 Overview: Study Title: Genomic Markers for Patients with Cardiovascular Disease Project # [id number] Shuttle Hand: Comfort Aviles MD [phone] Impotence of organic origin 02/16/2011 01/10/2018 Shortness [...] 10/31/2023 11:10 AM EDT Office Visit [facility] [address] [place] [address] Buster Jessica MD [address] [place] [address] 11/01/2023 1:30 PM EDT Telemedicine [facility], [facility] [address] [place] [address] Grisel Richter CRNP [address] [place] [address] Clary Eastman, Community Health Environmental Auditor [address] [place] [address] 11/21/2023 10:55 AM EDT Hospital Encounter [facility], Operating Room [facility] [address] [place] [phone] Freeman Beaulieu, [address] [place] [phone] 11/21/2023 10:55 AM EDT - 11/21/2023 11:20 AM EDT Surgery OR [facility], Operating Room [facility] [address] [place] [phone] Freeman Beaulieu, [address] [place] [phone] INJECTION SACROILIAC JOINT 11/22/2023 10:00 AM EDT Home Visit [facility], [facility] [address] [place] [address] Lisa Tenorio RN [address] [place] [address] 01/15/2024 10:40 AM EDT Office Visit Sleep Disorders Ctr [facility] [address] [place] [phone] Clair Quarles, [address] [place] [address] 04/22/2024 9:30 AM EDT Cardiac Studies Cardiology, [facility] [address] [place] [address] [place] [address] [place] [address] 05/19/2024 9:30 AM EDT Appointment Radiology, [address] [phone] Pending Results Name Type Priority [...] 09/10/2008 LUNG CANCER SCREENING - USE SMARTSET [id number] Completed 08/22/2022, 05/22/2022, 02/21/2021, Additional history exists [...] this encounter Medical Devices Implanted Type Area Wool Spotter Device Identifier Shelf Expiration Date Model / Serial / Lot 32mm X 109mm, Zenith Fenestrated Aaa Endovascular Proximal Body Graft, Two Proximal Internal Stent Implanted:Qty: 1 on 04/15/2018 by Evens Hoyt MD at OR [facility] N/A: Aorta [facility] 03/20/2021 ZFEN-P-2- 32-109-R / / [id number] Stent Graft [id number] - [id number] - [id number] Implanted:Qty: 1 on 04/15/2018 by Evens Hoyt MD at OR [facility] Right: Renal Artery GETINGE : [employer]EMERITAT 11/30/2020 86752 / [id number] / [id number] Stent Graft [id number] 03913 - [id number] - [id number] Implanted:Qty: 1 on 04/15/2018 by Evens Hoyt MD at OR [facility] Right: Renal Artery GETINGE : MAQUET 11/30/2020 42975 / [id number] / [id number] 28mm X 76mm Distal, 12mm Ipsilateral Leg, Zenith Fenestrated Aaa Endovascular Distal Bifurcated Body Graft Implanted:Qty: 1 on 04/15/2018 by Evens Hoyt MD at OR [facility] N/A: Aorta [employer] 03/20/2021 ZFEN-D-12 -28-76-C / / [id number] Graft Iliac Leg Spirlz 25o33eh - [id number] Implanted:Qty: 1 on 04/15/2018 by Evens Hoyt MD at OR [facility] Left: Iliac [employer] 09/14/2020 [id number] / / [id number] Graft Iliac Leg Spirlz 75h01zp - [id number] Implanted:Qty: 1 on 04/15/2018 by Evens Hoyt MD at OR [facility] Right: Iliac [employer] 11/09/2020 [id number] / / [id number] Transfixation Pin 6mm 294.950 - [id number] Implanted:Qty: 1 on 11/14/2019 by Mayank Friedman MD at OR [facility] Right: Ankle SYNTHES 294.950 / / Description:transfixation pi n Screw Schanz 5.8cyr484jm - [id number] Implanted:Qty: 2 on 11/14/2019 by Mayank Friedman MD at OR [facility] Right: Leg Lower SYNTHES 294.786SH A / / Description:self drilling sh antz screws 5.0mm x 200mm Esthela Trauma 2.7 Lock Screw 16mm Implanted:Qty: 2 on 11/27/2019 by Donavan Ramirez Jr., MD at [facility] Right: Ankle ESTHELA : TRAUMA [id number] / / Description:hardware set Esthela Trauma 2.7 Lock Screw 14mm Implanted:Qty: 1 on 11/27/2019 by Donavan Ramirez Jr., MD at OR [facility] Right: Ankle ESTHELA : TRAUMA [id number] / / [place] Trauma 3.5 Screw 14mm Implanted:Qty: 1 on 11/27/2019 by Donavan Ramirez Jr., MD at OR [facility] Right: Ankle ESTHELA : TRAUMA [id number] / / Description:hardware set [place] Trauma 3.5 Screw 18mm Implanted:Qty: 1 on 11/27/2019 by Donavan Ramirez Jr., MD at [facility] Right: Ankle ESTHELA : TRAUMA [id number] / / Description:hardware set [place] 3.5 Lockscrew 16mm Implanted:Qty: 1 on 11/27/2019 by Donavan Ramirez Jr., MD at OR [facility] Right: Ankle [id number] / / [place] 2.0 Plate Implanted:Qty: 1 on 11/27/2019 by Donavan Ramirez Jr., MD at OR [facility] Right: Ankle [id number] / / Esthela 2.0 Lock Screw Implanted:Qty: 2 on 11/27/2019 by Donavan Ramirez Jr., MD at OR [facility] Right: Ankle [id number] / / [place] 2.0 Lock Screw Implanted:Qty: 1 on 11/27/2019 by Donavan Ramirez Jr., MD at OR [facility] Right: Ankle [id number] / / [place] 2.0 Lock Screw Implanted:Qty: 1 on 11/27/2019 by Donavan Ramirez Jr., MD at OR [facility] Right: Ankle 006571 / / Plate Fib 5h 40-43566 - [id number] Implanted:Qty: 1 on 11/27/2019 by Donavan Ramirez [...] patient have Health Care Power of Supervisor Special Effects? No Full Code 02/17/2019 12:06 PM 02/18/2019 1:09 PM This order reflects the patients wishes and were consensually agreed upon. Question Answer Comments Discussion of Advance Directives occurred with: Not Discussed Does the patient have a Living Will? No Does the patient have Health Care Power of Supervisor Special Effects? No Full Code 04/15/2018 12:43 PM 04/16/2018 2:43 PM This order reflects the patients wishes and were consensually agreed upon. Care Teams Propulsion Machinery Service Engineer Relationship Specialty Start Date End Date Buster Jessica MD [address] [place] [phone] PCP - General Family Medicine 09/11/22 documented as of this encounter
--- OUTSIDE RECORDS SUMMARY | 2023-12-11 18:50 | External Medical Summary | Summary of Care ---
Author Name Unknown Organization [facility] Address [address] [place] [address] Phone [phone] Care Team Providers Care Layer Out Plate Glass Name Role Phone Buster Jessica MD Primary Care P rovider Reason for Referral * Medication Prior Authorization - Denied Specialty Diagnoses / Procedures Referred By Contac t Referred To Contact Diagnoses Chronic bilateral low back pain without sciatica Buster Jessica MD [address] [place] [id number] Referral ID Status Reason Start Date Expiration Date Visits Re quested Visits Authorized [id number] Denied [phone] Reason for Visit * Reason Onset Date Comments Medication Refill 10/25/2023 Encounter Details Date Type Department Care Team ([facility] Contact Info) Description 10/25/2023 Telephone Family Practice [facility] [address] [place] [address] Buster Jessica MD [address] [place] [phone] Medication Refill Allergies Active Allergy Reactions [...] (Demadex)Indication s:Heart failure, systolic, due to CAD ([facility]) Take 1 tablet by mouth every morning. [...] Oral Tablet (pLAVix)Indications :PAD (peripheral artery disease) ([facility]),Coronary artery disease involving three affiliated coronary artery of three affiliated heart without angina pectoris TAKE ONE TABLET BY MOUTH ONCE DAILY 90 Tablet 3 03/13/2023 Active Famotidine 20 MG Oral Tablet (Pepcid) TAKE 1 TABLET BY MOUTH TWICE DAILY (MORNING AND AT BEDTIME) 180 Tablet 3 04/30/2023 Active Spironolactone 25 MG Oral Tablet (Aldactone)Indicati ons:Coronary artery disease involving three affiliated coronary artery of three affiliated heart without angina pectoris,Heart failure, systolic, due to CAD ([facility]),Chronic ischemic heart disease,HTN, goal below 140/90 TAKE ONE TABLET BY MOUTH ONCE DAILY 90 Tablet 3 05/14/2023 Active Losartan Potassium 25 MG Oral Tablet (Cozaar)Indications :PAD (peripheral artery disease) ([facility]),Coronary artery disease involving three affiliated coronary artery of three affiliated heart without angina pectoris TAKE ONE TABLET BY MOUTH ONCE DAILY 90 Tablet 3 06/04/2023 Active Baclofen 20 MG Oral TabletIndications:C hronic bilateral low back pain without sciatica Take 1 Tablet by mouth 3 times a day as needed for Muscle spasms. 90 Tablet 5 06/06/2023 Active Repatha SureClick 140 MG/ML Subcutaneous Solution Auto-injector (evolocumab)Indicat ions:Obstructive sleep apnea,Heart failure, systolic, due to CAD ([facility]),Dyslipidemia, goal LDL below 70,Chronic ischemic heart disease,Tobacco use disorder,Coronary artery disease involving three affiliated coronary artery of three affiliated heart without angina pectoris Inject 140 mg (1 pen) under the skin every 14 days. 6 mL 3 07/02/2023 Active Metoprolol Succinate ER 50 MG Oral Tablet Extended Release 24 Hour (Toprol XL)Indications:Pers istent atrial fibrillation ([facility]),Acute on chronic systolic (congestive) heart failure ([facility]) One tablet by mouth daily at bedtime, this is in addition to the previous prescription for 100 milligrams daily in the morning. 90 Tablet 3 08/23/2023 Active Digoxin 125 MCG Oral Tablet (Lanoxin) Take 1 Tablet by mouth in the morning. 90 Tablet 3 08/23/2023 Active Benzonatate 100 MG Oral CapsuleIndications: COPD, group D, by GOLD 2017 classification ([facility]) Take 1 Capsule by mouth 3 times a day as needed for Cough. 30 Capsule 3 08/29/2023 Active ARIPiprazole 2 MG Oral Tablet (Abilify)Indication s:Moderate episode of recurrent major depressive disorder ([facility]) Take 1 Tablet by mouth in the morning. 30 Tablet 1 09/06/2023 Active Naloxone HCl 4 MG/0.1ML Nasal Liquid (Narcan Nasal) Administer 1 spray into 1 nostril for suspected opioid overdose. Seek immediate medical attention. [email or web address] 1 Each 3 09/15/2023 Active Tamsulosin HCl [...] Pain, Severe. 30 Tablet 0 10/25/2023 Active Albuterol Sulfate (2.5 MG/3ML) 0.083% Inhalation Nebulization Solution (Proventil)Indicati ons:COPD, group D, by GOLD 2017 classification ([facility]) Inhale 1 Vial via nebulizer every 4 hours as needed for Wheezing. 75 mL 1 04/23/2023 10/29/19 24 Discontinu ed(Refill) Fluticasone-Salmete rol 250-50 MCG/ACT Inhalation Aerosol Powder Breath Activated (Wixela Inhub)Indications:C OPD, group D, by GOLD 2017 classification ([facility]) Inhale 1 Puff by mouth in the morning and 1 Puff before bedtime. 60 Each 12 09/06/2023 10/29/19 24 Discontinu ed(Refill) oxyCODONE HCl 7.5 MG Oral TabletIndications:C hronic bilateral low back pain without sciatica Take 1 Tablet by mouth every 6 hours as needed for Pain, Severe. 28 Tablet 0 10/19/2023 10/25/19 24 Discontinu ed(Formula ry/Cost) documented as of this encounter (statuses as [...] emphysema 09/22/2021 Atherosclerotic heart diseas e of three affiliated coronary artery with other forms of angina [...] untreated, BMI 43.71 kg/m, NECK: 21 inches, [place] 6/24, sent for bipap titration study 01/11/11 case per [facility] completed ICD-10 update of inactive term BMI [...] 11/22/2020 10/12/2023 Coronary artery disease invo lving three affiliated coronary artery of three affiliated heart without angina pectoris 07/06/2020 10/12/2023 Chronic [...] 09/23/201305/17 Claudication 05/13/2013 10/12/2023 [employer] Other*[id number] 04/23/2012 09/12/2016 Overview: Study Title: Genomic Markers for Patients with Cardiovascular Disease Project # [id number] Dough Brake Machine Operator: Comfort Aviles MD [phone] Impotence of organic origin 02/16/2011 01/10/2018 Shortness [...] do you have serious difficulty h earing? No-KAKE 11/14/2019 Are you blind or do you [...] Notes * Telephone Encounter - Mary Anne Pierce LPN - 10/29/2023 3:38 PM EDT Please see message below. Insurance is rejecting [place] on oxycodone * Telephone Encounter - Erika Harris truck loader - 10/29/2023 2:35 PM EDT Pharmacy calling stating the insurance is rejecting the authorization for OXYCODONE-ACETAMINOPHEN 10-325mg because pt is above the maximum morphine equivalent. Thank you, Erika Harris, [place] Shade Ring Coverer [facility] (Formerly [facility]) 10/29/2023,2:36 PM * Telephone Encounter - Mi Dai CCMA - 10/26/2023 9:37 AM EDT Questions answered through [facility] saved. PRISCILLA attached. Please verify that all information you needis correct. * Telephone Encounter - Ham Mondragon CPhT - 10/26/2023 8:41 AM EDT Patients insurance would like to inform the office that OXYCODONE-ACETAMINOPHEN 10-325 is requiringadditional information: SUPPORTING CLINICAL NOTES. Prior authorization entered in [facility] at [facility]. EOC# [id number] Please fax to [phone] before 2pm today 10/25. Thank you, Oh Mondragon ([facility]) Paperback Machine Operator III [facility] ([facility] ([facility]) 10/26/2023, 8:41 AM * Telephone Encounter - Buster Jessica MD - 10/25/2023 7:54 PM EDT Received communication from [facility] at home regarding patient complaining of pain and requesting prescription for pain medication. Oxycodone 10 mg electronically prescribed with instructions. documented in this encounter Plan of Treatment Upcoming Encounters Date Type Department Care Team ([facility] st Contact Info) Description 10/31/2023 11:10 AM EDT Office Visit [address] [phone] Buster Jessica MD [address] [place] [address] 11/01/2023 1:30 PM EDT Telemedicine ising at [place], [place] [address] [place] [address] Grisel Richter CRNP [address] [place] [address] Clary Eastman, [facility] Gunner [address] [place] [address] 11/21/2023 10:55 AM EDT Hospital Encounter OR [facility], Operating Room [facility] [address] [place] [address] Freeman Beauliue, DO [address] [place] [phone] 11/21/2023 10:55 AM EDT - 11/21/2023 11:20 AM EDT Surgery OR [facility], Operating Room [facility] [address] [place] [phone] Freeman Beaulieu, DO [address] [place] [address] INJECTION SACROILIAC JOINT 11/22/2023 10:00 AM EDT Home Visit [facility] at [place], [facility] [address] [place] [address] Lisa Tenorio RN [address] [place] [address] 01/15/2024 10:40 AM EDT Office Visit [facility] [address] [place] [phone] lCair Quarles, DO [address] [place] [address] 04/22/2024 9:30 AM EDT Cardiac Studies Cardiology, [facility] [address] [place] [address] [facility] [address] [place] [address] 05/19/2024 9:30 AM EDT Appointment Radiology, [address] [address] Scheduled Procedures Name Priority Associated [...] exists DISCUSS TOBACCO CESSATION (REFER TO SMARTSET #7185) 06/02/2023 06/02/2022, 07/21/2020 Depression, Most Recent Score [...] 09/10/2008 LUNG CANCER SCREENING - USE SMARTSET 89611 Completed 08/22/2022, 05/22/2022, 02/21/2021, Additional history exists [...] this encounter Medical Devices Implanted Type Area Surgery Scheduler Device Identifier Shelf Expiration Date Model / Serial / Lot 32mm X 109mm, Zenith Fenestrated Aaa Endovascular Proximal Body Graft, Two Proximal Internal Stent Implanted:Qty: 1 on 04/15/2018 by Evens Hoyt MD at OR [facility] N/A: Aorta [employer] 03/20/2021 ZFEN-P-2- [id number] / / [id number] Stent Graft [id number] - [id number] - [id number] Implanted:Qty: 1 on 04/15/2018 by Evens Hoyt MD at OR [facility] Right: Renal Artery GETINGE : MAQUET 11/30/2020 [id number] / [id number] / [id number] Stent Graft [id number] - [id number] - [id number] Implanted:Qty: 1 on 04/15/2018 by Evens Hoyt MD at OR [facility] Right: Renal Artery GETINGE : MAQUET 11/30/2020 [id number] / [id number] / [id number] 28mm X 76mm Distal, 12mm Ipsilateral Leg, Zenith Fenestrated Aaa Endovascular Distal Bifurcated Body Graft Implanted:Qty: 1 on 04/15/2018 by Evens Hoyt MD at OR [facility] N/A: Aorta [employer] 03/20/2021 LISA-D-12 -28-76-C / / [id number] Graft Iliac Leg Spirlz [id number] - [id number] Implanted:Qty: 1 on 04/15/2018 by Evens Hoyt MD at OR [facility] Left: Iliac [employer] 09/14/2020 [id number] / / [id number] Graft Iliac Leg Spirlz 40n62rd - [id number] Implanted:Qty: 1 on 04/15/2018 by Evens Hoyt MD at OR [facility] Right: Iliac [employer] 11/09/2020 [id number] / / [id number] Transfixation Pin 6mm 294.950 - [id number] Implanted:Qty: 1 on 11/14/2019 by Mayank Friedman MD at OR [facility] Right: Ankle SYNTHES 294.950 / / Description:transfixation pi n Screw Schanz 5.2rov287ir - [id number] Implanted:Qty: 2 on 11/14/2019 by Mayank Friedman MD at OR [facility] Right: Leg Lower SYNTHES 294.786SH A / / Description:self drilling sh antz screws 5.0mm x 200mm Hartly Trauma 2.7 Lock Screw 16mm Implanted:Qty: 2 on 11/27/2019 by Donavan Rmairez Jr., MD at OR [facility] Right: Ankle ESTHELA : TRAUMA [id number] / / Description:hardware set Hartly Trauma 2.7 Lock Screw 14mm Implanted:Qty: 1 on 11/27/2019 by Donavan Ramirez Jr., MD at OR [facility] Right: Ankle ESTHELA : TRAUMA [id number] / / Esthela Trauma 3.5 Screw 14mm Implanted:Qty: 1 on 11/27/2019 by Donavan Ramirez Jr., MD at OR [facility] Right: Ankle ESTHELA : TRAUMA [id number] / / Description:hardware set Hartly Trauma 3.5 Screw 18mm Implanted:Qty: 1 on 11/27/2019 by Donavan Ramirez Jr., MD at OR [facility] Right: Ankle ESTHELA : TRAUMA [id number] / / Description:hardware set Hartly 3.5 Lockscrew 16mm Implanted:Qty: 1 on 11/27/2019 by Donavan Ramirez Jr., MD at OR [facility] Right: Ankle [id number] / / Esthela 2.0 Plate Implanted:Qty: 1 on 11/27/2019 by Donavan Ramirez Jr., MD at OR [facility] Right: Ankle [id number] / / Hartly 2.0 Lock Screw Implanted:Qty: 2 on 11/27/2019 by Donavan Ramirez Jr., MD at OR [facility] Right: Ankle [id number] / / Esthela 2.0 Lock Screw Implanted:Qty: 1 on 11/27/2019 by Donavan Ramirez Jr., MD at OR [facility] Right: Ankle [id number] / / Esthela 2.0 Lock Screw Implanted:Qty: 1 on 11/27/2019 by Donavan Ramirez Jr., MD at OR [facility] Right: Ankle [id number] / / Plate [facility] [id number] - [id number] Implanted:Qty: 1 on 11/27/2019 by Donavan Ramirez Jr., MD at [facility] Right: Ankle ESTHELA : TRAUMA [id number] / / Description:hardware set documented as of [...] the patient have Health Care Power of Water Resources Engineer? No Full Code 02/17/2019 12:06 PM 02/18/2019 1:09 PM This order reflects the patients wishes and were consensually agreed upon. Question Answer Comments Discussion of Advance Directives occurred with: Not Discussed Does the patient have a Living Will? No Does the patient have Health Care Power of Water Resources Engineer? No Full Code 04/15/2018 12:43 PM 04/16/2018 2:43 PM This order reflects the patients wishes and were consensually agreed upon. Care Teams Layer Out Plate Glass Relationship Specialty Start Date End Date Buster Jessica MD [address] [place] [phone] PCP - General Family Medicine 09/11/22 documented as of this encounter
--- OUTSIDE RECORDS SUMMARY | 2023-12-11 18:51 | External Medical Summary | Summary of Care ---
Author Name Unknown Organization [facility] Address [address] [place] [address] Phone [phone] Care Team Providers Care Sustainability Coordinator Name Role Phone Buster Jessica MD Primary Care P [facility] Reason for Visit * Reason Onset Date Comments STAIR 05/24/2022 Encounter Details Date Type Department Care Team (Late st Contact Info) Description 05/24/2022 Telephone STAIR LUNG NODULE [address] [place] [address] Program, Stair [address] [place] [address] STAIR Allergies Active Allergy Reactions Criticality Noted Date Comments Atorvastatin Muscle pain,Unknown 01/18/2015 Medication intolerance, not an allergy Sacubitril-Valsartan Other (Please comment) 09/17/2020 Throat swelled Sacubitril High 07/20/2023 Other Reaction(s): THROAT SWELLING Simvastatin Low 06/23/2022 Other reaction(s): MUSCLE ACHES Valsartan High 07/20/2023 Other Reaction(s): THROAT SWELLING documented as of this encounter (statuses as of 10/28/2023) Medications Medication Sig Dispensed Refills Start Date End Date Status albuterol sulfate (PROVENTIL) (2.5 MG/3ML) 0.083% nebulizer solutionIndication s:Acute bronchitis, antibiotics not indicated,Cough Inhale 1 Vial via nebulizer every 4 hours as needed for Wheezing. 120 Vial 5 0 09/11/19 23 Discontinued(Re fill) Mometasone Furoate 50 MCG/ACT Nasal Suspension (Nasonex)Indicatio ns:Rhinosinusitis Administer 2 Sprays into each nostril daily. 17 g 0 1 05/10/20 23 Discontinued ProAir HFA 108 (90 Base) MCG/ACT Inhalation Aerosol SolutionIndication s:COPD, group D, by GOLD 2017 classification ([facility]) Inhale 2 Puffs by mouth every 4 hours as needed for Cough, Shortness of Breath or Wheezing. 18 g 11 1 11/17/19 23 Discontinued(Re fill) Ipratropium-Albute rol 0.5-2.5 (3) MG/3ML Inhalation Solution (Duoneb) Inhale 3 mL by mouth every 6 hours as needed. 0 05/10/20 23 Discontinued Excedrin Extra Strength 250-250-65 MG Oral Tablet (Aspirin-Acetamino phen-Caffeine) Take 1 Tablet by mouth every 6 hours as needed for Other (Arthritis). 0 07/12/20 22 Discontinued(En d of Procedure) Ipratropium [place] 0.06 % Nasal Solution (Atrovent) Administer 2 Sprays into each nostril 4 times a day as needed for Rhinitis. for runny nose 15 mL 5 1 09/11/19 23 Discontinued(Re fill) Spironolactone 25 MG Oral Tablet (Aldactone) TAKE ONE TABLET BY MOUTH ONCE DAILY 90 Tab 3 1 05/26/20 22 Discontinued Losartan Potassium 25 MG Oral Tablet (Cozaar) TAKE ONE TABLET BY MOUTH ONCE DAILY 90 Tab 3 1 06/13/20 22 Discontinued Clopidogrel Bisulfate 75 MG Oral Tablet (pLAVix)Indication s:PAD (peripheral artery disease) ([facility]) TAKE ONE TABLET BY MOUTH ONCE DAILY 90 Tablet 3 1 06/13/20 22 Discontinued Methocarbamol 500 MG Oral Tablet (Robamol)Indicatio ns:PAD (peripheral artery disease) ([facility]),Closed fracture of right ankle with routine healing Take by mouth 1 Tablet as needed in the morning AND 1 Tablet as needed at noon AND 1 Tablet as needed in the evening AND 1 Tablet as needed before bedtime for Muscle spasms. 60 Tablet 2 2 07/12/20 22 Discontinued(En d of Procedure) BiPAP every night at bedtime. 0 05/10/20 23 Discontinued Tamsulosin HCl 0.4 MG Oral Capsule (Flomax) Take by mouth 1 Capsule in the morning. 30 Capsule 11 2 09/23/19 23 Discontinued Eliquis 5 MG Oral Tablet (Apixaban) TAKE 1 TABLET BY MOUTH TWICE DAILY 60 Tablet 11 2 10/18/19 23 Discontinued traZODone HCl 50 MG Oral Tablet (Desyrel) Take by mouth 1 Tablet before bedtime. 30 Tablet 5 2 07/12/20 22 Discontinued(En d of Procedure) Silver sulfADIAZINE 1 % External Cream (Silvadene)Indicat ions:Open wound of lower extremity, unspecified laterality, initial encounter,Obesity with serious comorbidity, unspecified classification, unspecified obesity type,PAD (peripheral artery disease) ([facility]),Tobacco use disorder Apply topically to affected area daily . Apply to wound daily with dressing 50 g 1 2 07/12/20 22 Discontinued Famotidine 20 MG Oral Tablet (Pepcid) Take by mouth 1 Tablet in the morning AND 1 Tablet before bedtime. 180 Tablet 1 2 06/16/20 22 Discontinued Silver sulfADIAZINE 1 % External Cream (Silvadene) Apply to a burn twice daily as needed 1000 g 1 2 07/12/20 22 Discontinued(En d of Procedure) Torsemide 100 MG Oral Tablet (Demadex)Indicatio ns:Heart failure, systolic, due to CAD ([facility]) Take 1 tablet by mouth every morning. Take 1/2 tab on Sunday, Sunday and Sunday afternoon. May take an additional 1/2 tab as needed for weight gain, increased shortness of breath 150 Tablet 3 2 08/28/19 23 Discontinued(Re fill) Montelukast Sodium 10 MG Oral Tablet (Singulair)Indicat ions:Allergic rhinitis, unspecified seasonality, unspecified trigger TAKE ONE TABLET BY MOUTH ONCE DAILY 90 Tablet 3 2 07/12/20 22 Discontinued(En d of Procedure) Potassium Chloride ER 10 MEQ Oral Tablet Extended Release TAKE 2 TABLETS BY MOUTH ONCE DAILY IN THE MORNING AND TAKE 1 TABLET BY MOUTH ONCE DAILY IN THE EVENING 270 Tablet 3 2 02/08/20 23 Discontinued hydrOXYzine HCl 25 MG Oral TabletIndications: Rash and nonspecific skin eruption Take by mouth 1 Tablet as needed in the morning AND 1 Tablet as needed at noon AND 1 Tablet as needed in the evening for Itching. 20 Tablet 1 2 07/12/20 22 Discontinued(En d of Procedure) Betamethasone Dipropionate 0.05 % External Cream (Diprosone) Apply to the arms/legs/back twice daily as needed 90 g 2 2 05/10/20 23 Discontinued DULoxetine HCl 30 MG Oral Capsule Delayed Release Particles (Cymbalta) TAKE 1 CAPSULE BY MOUTH ONCE DAILY IN THE MORNING. DO NOT CUT, CRUSH,OR CHEW. 30 Capsule 11 2 07/12/20 22 Discontinued(Lennox david preference/disc ontinuation) Metoprolol Succinate ER 100 MG Oral Tablet Extended Release 24 Hour (toPROL XL) TAKE ONE TABLET BY MOUTH ONCE DAILY 90 Tablet 1 2 09/13/19 23 Discontinued Repatha SureClick 140 MG/ML Subcutaneous Solution Auto-injector (evolocumab)Indica tions:Obstructive sleep apnea,Heart failure, systolic, due to CAD ([facility]),Dyslipidemia , goal LDL below 70,Chronic ischemic heart disease,Tobacco use disorder,Coronary artery disease involving bad [place] coronary artery of bad river [place] heart without angina pectoris Inject under the skin 140 mg every 14 days . 6 mL 3 2 04/04/20 22 Discontinued(Araceli waterman prescription brought in as discontinued) Polyethylene Glycol 3350 17 GM/SCOOP Oral Powder (MiraLax) Take by mouth 17 g as needed for Constipation. Dissolve one heaping tablespoon in 8 ounces of water or juice. 225 g 1 2 07/12/20 22 Discontinued Trelegy Ellipta 100-62.5-25 MCG/INH Aerosol Powder Breath Activated (Fluticasone-Umecl idinium-Vilanterol )Indications:COPD, group D, by GOLD 2017 classification ([facility]) Inhale by mouth 1 Puff in the morning. 180 Each 3 2 05/31/20 22 Discontinued(Fo rmulary/Cost) Benzonatate 100 MG Oral Capsule (Garry Bishop)Indications :COPD, group D, by GOLD 2017 classification ([facility]) 1-2 capsules every 6 hours as needed for cough. Do not cut, crush, or chew. 45 Capsule 1 2 11/17/19 23 Discontinued(Pa tient preference/disc ontinuation) HYDROcodone-Acetam inophen 7.5-325 MG Oral TabletIndications: Chronic bilateral low back pain without sciatica Take by mouth 1 Tablet every 6 hours as needed for Pain, Severe. 30 Tablet 0 2 06/23/20 22 Discontinued(Re fill) traMADol HCl 50 MG Oral Tablet (Ultram)Indication s:Chronic bilateral low back pain without sciatica Take by mouth 1 Tablet every 6 hours as needed for Pain, Moderate. 30 Tablet 0 2 07/12/20 22 Discontinued(En d of Procedure) documented as of this encounter (statuses as of 10/28/2023) Active Problems Problem Noted Date Diagnosed Date [...] emphysema 09/22/2021 Atherosclerotic heart diseas e of bad river band coronary artery with other forms of [...] untreated, BMI 43.71 kg/m, NECK: 21 inches, [place] 6/24, sent for bipap titration study 01/11/11 case per P completed ICD-10 update of inactive term BMI 35-39 ISOLATED (SEE ACTUAL BMI) 01/17/2010 Overview: Per Obesity Protocol, #19 BPH without obstruction/lower urinary tract symp toms 08/19/2009 Dyslipidemia, goal LDL below 70 07/21/2009 Overview: Per Lipid Taxonomy. documented as of this encounter (statuses as of 10/28/2023) Resolved Problems Problem Noted Date Diagnosed Date [...] 11/22/2020 10/12/2023 Coronary artery disease invo lving bad river band coronary artery of bad river band heart without angina pectoris 07/06/2020 10/12/2023 [...] 09/23/201305/17 Claudication 05/13/2013 10/12/2023 [employer] Other*[id number] 04/23/2012 09/12/2016 Overview: Study Title: Genomic Markers for Patients with Cardiovascular Disease Project # [id number] Appliance Servicer: Comfort Aviles MD [phone] Impotence of organic origin 02/16/2011 01/10/2018 Shortness [...] as of this encounter (statuses as of 10/28/2023) Immunizations Name Administration Dates Next Due COVID-19 [...] do you have serious difficulty h earing? No-GRINDSTONE 11/14/2019 Are you blind or do you [...] Miscellaneous Notes * Telephone Encounter - María Crooks LPN - 10/28/2023 12:31 PM EDT Patient managed in STAIR Program for Pulmonary Nodule - banner added * Telephone Encounter - Poly John LPN - 05/26/2022 10:34 AM EDT Buster Anguiano MD - for your review. An important pulmonary nodule finding was noted. No action needed - the STAIR Team will manage. Lung Nodule Referral Triaging - Communication to Patient Patient contacted, recommendations reviewed, patient agrees, appointments scheduled/coordinated. CTChest scheduled 08/22/22~ [facility] Time spent: 10 minutes Poly John LPN Coordinator STAIR (System to Track Abnormalities of Importance Reliably) [phone] * Addendum Note - Bradley Honeycutt CRNP - 05/25/2022 5:22 PM EDTAddended by: BRADLEY HONEYCUTT on: 05/25/2022 05:22 PM Modules accepted: Orders * Telephone Encounter - Bradley Honeycutt CRNP - 05/25/2022 12:32 PM EDT Lung Nodule Provider Review - [facility] referred Initial Clinical Summary: current smoker Reviewed below Imaging Interpretation: LDCT dated 05/22/22 Lung nodules: single Location: RLL Characteristics: Growth since 2018, now 9 x 10 mm Co-morbidity : findings of emphysema 1. Pulmonary Nodule Care Plan: Lung RADs Follow-up Imaging ordered ("CT Chest Lung Cancer Screen 3 or 6 Month Follow Up") Details: Review of measurements by radiologist from previous scans shows slow but steady growth: 7.6 mm 2019 8.2 mm 2019 7.5 x 9 mm 2020 9 x 9.[address] Golden: The nodules are still relatively small and would be difficult to biopsy. There is nota bronchus leading to the largest nodule in the RLL so I would continue surveillance. Recommend [address] chest. 2. Non-Pulmonary Nodule Incidental Finding: coronary calcification, thyroid cyst/nodule/mass and other incidental finding(s) as listed on radiology report 3. Patient contacted to review recommendations and next steps: Yes, important pulmonary nodule finding discussed. He hs been aware of nodule for years. 4. Message forwarded to [employer]. Care Plan developed after reviewing the case with Jayesh Golden MD. Asked him if able to biopsy atthis point. Time spent: 35 minutes MAYRA Stone (System to Track Abnormalities of Importance Reliably) * Telephone Encounter - Cynthia Yap LPN - 05/25/2022 9:33 AM EDT Lung Cancer Screening Program ([facility]) Results Call Summary 05/25/2022 Patient aware of results No outside imaging per patient Established with Pulmonology Verified current smoker 1 ppd for [address] Lung-RADS Scoring: Lung-RADS Score 4A (suspicious) - care transferred to [facility] for clinical review, setting care plan, and tracking. (STAIR Team: Patient Identified by Lung Cancer Screening Program. If CT Scan needed, order CT Chest Lung Cancer Screen 3 or 6 Month Follow Up). I have contacted the patient to review the low dose CT results, discuss next steps per Lung Cancer Screening Program Protocol, and address any questions. Cynthia Yap LPN Lung Cancer Screening Physician Practice Consultant [phone] ([phone]) * Telephone Encounter - Cynthia Yap LPN - 05/25/2022 9:17 AM EDT Lung Cancer Screening Program ([facility]) Results Call Summary 05/25/2022 Left message on patient's voice mail to return call Low Dose CT Lung-RADS Scoring: Lung-RADS Score 4A (suspicious) - care transferred to [facility] program for clinical review, setting care plan, and tracking. (STAIR Team: Patient Identified by Lung Cancer Screening Program. If CT Scan needed, order CT Chest Lung Cancer Screen 3 or 6 Month Follow Up). Cynthia Yap LPN Lung Cancer Screening Physician Practice Consultant [phone] ([phone]) * Telephone Encounter - Cynthia Yap LPN - 05/24/2022 2:24 PM EDT Lung Cancer Screening Program ([facility]) Results Call Summary 05/24/2022 Tried to call patient on home phone-phone rang several times but unable to leave a message Patient had appointment today at [facility] Low Dose CT Lung-RADS Scoring: Lung-RADS Score 4A (suspicious) - care transferred to STAIR program for clinical review, setting care plan, and tracking. (STAIR Team: Patient Identified by Lung Cancer Screening Program. If CT Scan needed, order CT Chest Lung Cancer Screen 3 or 6 Month Follow Up). Cynthia Yap LPN Lung Cancer Screening Physician Practice Consultant [phone] ([phone]) documented in this encounter Plan of Treatment Upcoming Encounters Date Type Department Care Team (Late st Contact Info) Description 10/29/2023 2:30 PM EDT Imaging Radiology [address] [place] [address] 10/29/2023 3:00 PM EDT Office Visit Pulmonary Medicine, [facility] [address] [place] [address] Ej Noble MD [address] [place] [facility] [place] [address] 10/31/2023 11:10 AM EDT Office Visit Family [address] [phone] Buster Jessica MD [address] [place] [address] 11/01/2023 1:30 PM EDT Telemedicine [facility] at [place] [place] [address] [place] [address] Grisel Richter CRNP [address] [place] [address] Clary Eastman, Community Health Transit Planning Manager [address] [place] [address] 11/21/2023 10:55 AM EDT Hospital Encounter [facility], Operating Room [facility] [address] [place] [phone] Freeman Beaulieu, DO [address] [place] [phone] 11/21/2023 10:55 AM EDT - 11/21/2023 11:20 AM EDT Surgery OR [facility], Operating Room [facility] [address] [place] [phone] Freeman Beaulieu, DO [address] [place] [phone] INJECTION SACROILIAC JOINT 11/22/2023 10:00 AM EDT Home Visit [facility] [place] [place] [address] [place] [address] Lisa Tenorio RN [address] [place] [address] 01/15/2024 10:40 AM EDT Office Visit Sleep Disorders [facility] [address] [place] [phone] Clair Quarles, DO [address] [place] [address] 04/22/2024 9:30 AM EDT Cardiac Studies Cardiology, [facility] [address] [place] [address] [facility] [address] [place] [address] 05/19/2024 9:30 AM EDT Appointment Radiology, [facility] [place] [id number] [place] [address] Scheduled Procedures Name Priority Associated [...] exists DISCUSS TOBACCO CESSATION (REFER TO SMARTSET #5622) 06/02/2023 06/02/2022, 07/21/2020 Depression, Most Recent Score >= 10 (will fire each visit until score < 10) 08/30/2023 08/29/2023 GFR 10/18/2024 10/19/2023, 0311/2023, 09/27/2023, Additional history exists O2 ASSESSMENT COMPLETED IN PAST YEAR FOR COPD 10/23/2024 10/24/2023 Albumin/Creatinine Ratio 06/06/2026 06/06/2023 COLONOSCOPY-EVERY 5 YRS AGES 18-100 10/28/2027 10/27/2022, 04/21/2014, 04/21/2014, Additional history exists DTaP,Tdap,and Td Vaccines (3 - Td or Tdap) 04/13/2030 04/13/2020 (Declined), 08/19/2009 Alpha-1 Antitrypsin Completed 02/19/2020 Pneumococcal Vaccine: 65+ Years Completed 05/27/2020, 12/02/2018, 09/10/2008 LUNG CANCER SCREENING - USE SMARTSET 78492 Completed 08/22/2022, 05/22/2022, 02/21/2021, Additional history exists [...] this encounter Medical Devices Implanted Type Area Occupational Medicine Physician Device Identifier Shelf Expiration Date Model / Serial / Lot 32mm X 109mm, Zenith Fenestrated Aaa Endovascular Proximal Body Graft, Two Proximal Internal Stent Implanted:Qty: 1 on 04/15/2018 by Evens Hoyt MD at OR [facility] N/A: Aorta [employer] 03/20/2021 ZFEN-P-2- [id number] / / [id number] Stent Graft [id number] - [id number] - [id number] Implanted:Qty: 1 on 04/15/2018 by Evens Hoyt MD at OR [facility] Right: Renal Artery GETINGE : MAQUET 11/30/2020 [id number] / [id number] / [id number] Stent Graft [id number] - [id number] - [id number] Implanted:Qty: 1 on 04/15/2018 by Evens Hoyt MD at OR [facility] Right: Renal Artery GETINGE : MAQUET 11/30/2020 [id number] / [id number] / [id number] 28mm X 76mm Distal, 12mm Ipsilateral Leg, Zenith Fenestrated Aaa Endovascular Distal Bifurcated Body Graft Implanted:Qty: 1 on 04/15/2018 by Evens Hoyt MD at OR [facility] N/A: Aorta [employer] 03/20/2021 ZFEN-D-12 -28-76-C / / [id number] Graft Iliac Leg Spirlz [id number] - [id number] Implanted:Qty: 1 on 04/15/2018 by Evens Hoyt MD at OR [facility] Left: Iliac [employer] 09/14/2020 [id number] / / [id number] Graft Iliac Leg Spirlz [id number] - [id number] Implanted:Qty: 1 on 04/15/2018 by Evens Hoyt MD at OR [facility] Right: Iliac [employer] 11/09/2020 [id number] / / [id number] Transfixation Pin 6mm 294.950 - [id number] Implanted:Qty: 1 on 11/14/2019 by Mayank Friedman MD at OR [facility] Right: Ankle SYNTHES 294.950 / / Description:transfixation pi n Screw Schanz [id number] - [id number] Implanted:Qty: 2 on 11/14/2019 by Mayank Friedman MD at OR [facility] Right: Leg Lower SYNTHES 294.786SH A / / Description:self drilling sh antz screws 5.0mm x 200mm Mccracken Trauma 2.7 Lock Screw 16mm Implanted:Qty: 2 on 11/27/2019 by Donavan Ramirez Jr., MD at OR [facility] Right: Ankle ESTHELA : TRAUMA [id number] / / Description:hardware set Mccracken Trauma 2.7 Lock Screw 14mm Implanted:Qty: 1 on 11/27/2019 by Donavan Ramirez Jr., MD at OR [facility] Right: Ankle ESTHELA : TRAUMA [id number] / / Mccracken Trauma 3.5 Screw 14mm Implanted:Qty: 1 on 11/27/2019 by Donavan Ramirez Jr., MD at OR [facility] Right: Ankle ESTHELA : TRAUMA [id number] / / Description:hardware set Esthela Trauma 3.5 Screw 18mm Implanted:Qty: 1 on 11/27/2019 by Donavan Ramirez Jr., MD at OR [facility] Right: Ankle ESTHELA : TRAUMA [id number] / / Description:hardware set Esthela 3.5 Lockscrew 16mm Implanted:Qty: 1 on 11/27/2019 by Donavan Ramirez Jr., MD at OR [facility] Right: Ankle [id number] / / Esthela 2.0 Plate Implanted:Qty: 1 on 11/27/2019 by Donavan Ramirez Jr., MD at OR [facility] Right: Ankle [id number] / / Esthela 2.0 Lock Screw Implanted:Qty: 2 on 11/27/2019 by Donavan Ramirez Jr., MD at OR [facility] Right: Ankle [id number] / / Esthela 2.0 Lock Screw Implanted:Qty: 1 on 11/27/2019 by Donavan Ramirez Jr., MD at OR [facility] Right: Ankle [id number] / / Esthela 2.0 Lock Screw Implanted:Qty: 1 on 11/27/2019 by Donavan Ramirez Jr., MD at OR [facility] Right: Ankle [id number] / / Plate Fib 5h - [id number] Implanted:Qty: 1 on 11/27/2019 by Donavan Ramirez Jr., MD at OR [facility] Right: Ankle ESTHELA : TRAUMA / / Description:hardware set documented as of this encounter Visit Diagnoses Diagnosis Nodule of lower lobe of right lung- Primary Tobacco use disorder Inflammation of sacroiliac joint [...] the patient have Health Care Power of Senior Firmware Engineer? No Full Code 02/17/2019 12:06 PM 02/18/2019 1:09 PM This order reflects the patients wishes and were consensually agreed upon. Question Answer Comments Discussion of Advance Directives occurred with: Not Discussed Does the patient have a Living Will? No Does the patient have Health Care Power of Senior Firmware Engineer? No Full Code 04/15/2018 12:43 PM 04/16/2018 2:43 PM This order reflects the patients wishes and were consensually agreed upon. Care Teams Sustainability Coordinator Relationship Specialty Start Date End Date Buster Jessica MD [address] [place] [address] PCP - General Family Medicine 09/11/22 documented as of this encounter
--- OUTSIDE RECORDS SUMMARY | 2023-12-11 18:51 | External Medical Summary | Summary of Care ---
Author Name Unknown Organization [facility] Address [address] [place] [address] Phone [phone] Care Team Providers Care Out And Out Cigar Maker Hand Name Role Phone Buster Jessica MD Primary Care [facility] Reason for Visit * Reason Onset Date Comments [facility]: Maintenance 10/26/2023 Encounter Details Date Type Department Care Team (Late st Contact Info) Description 10/26/2023 11:30 AM EDT Scheduled Telephone [facility], [place] [address] [place] [address] Coordinator, [facility] [address] [place] [address] Allergies Active Allergy Reactions Criticality Noted Date Comments Atorvastatin Muscle pain,Unknown 01/18/2015 Medication intolerance, not an allergy Sacubitril-Valsartan Other (Please comment) 09/17/2020 Throat swelled Sacubitril High 07/20/2023 Other Reaction(s): THROAT SWELLING Simvastatin Low 06/23/2022 Other reaction(s): MUSCLE ACHES Valsartan High 07/20/2023 Other Reaction(s): THROAT SWELLING documented as of this encounter (statuses as of 10/26/2023) Medications Medication Sig Dispensed Refills Start Date End Date Status Torsemide 100 MG Oral Tablet (Demadex)Indications :Heart failure, systolic, due to CAD ([facility]) Take 1 tablet by mouth [...] ReleaseIndications:H TN, goal below 140/90,Paroxysmal atrial fibrillation ([facility]),LBBB (left bundle branch block) TAKE 2 TABLETS BY MOUTH ONCE DAILY IN THE MORNING AND ONE TAB IN THE EVENING 270 Tablet 3 02/07/2023 Active Metoprolol Succinate ER 100 MG Oral Tablet Extended Release 24 Hour (toPROL XL) TAKE ONE TABLET BY MOUTH ONCE DAILY 90 Tablet 3 03/08/2023 Active Clopidogrel Bisulfate 75 MG Oral Tablet (pLAVix)Indications: PAD (peripheral artery disease) ([facility]),Coronary artery disease involving tonto apache coronary artery of t[place] apache heart without angina pectoris TAKE ONE TABLET BY MOUTH ONCE DAILY 90 Tablet 3 03/13/2023 Active Albuterol Sulfate (2.5 MG/3ML) 0.083% Inhalation Nebulization Solution (Proventil)Indicatio ns:COPD, group D, by GOLD 2017 classification ([facility]) Inhale 1 Vial via nebulizer every 4 hours as needed for Wheezing. 75 mL 1 04/23/2023 Active Famotidine 20 MG Oral Tablet (Pepcid) TAKE 1 TABLET BY MOUTH TWICE DAILY (MORNING AND AT BEDTIME) 180 Tablet 3 04/30/2023 Active Spironolactone 25 MG Oral Tablet (Aldactone)Indicatio ns:Coronary artery disease involving t[place] apache coronary artery of t[place] apache heart without angina pectoris,Heart failure, systolic, due to CAD ([facility]),Chronic ischemic heart disease,HTN, goal below 140/90 TAKE ONE TABLET BY MOUTH ONCE DAILY 90 Tablet 3 05/14/2023 Active Losartan Potassium 25 MG Oral Tablet (Cozaar)Indications: PAD (peripheral artery disease) ([facility]),Coronary artery disease involving t[place] apache coronary artery of t[place] apache heart without angina pectoris TAKE ONE TABLET BY MOUTH ONCE DAILY 90 Tablet 3 06/04/2023 Active Baclofen 20 MG Oral TabletIndications:Ch ronic bilateral low back pain without sciatica Take 1 Tablet by mouth 3 times a day as needed for Muscle spasms. 90 Tablet 5 06/06/2023 Active Repatha SureClick 140 MG/ML Subcutaneous Solution Auto-injector (evolocumab)Indicati ons:Obstructive sleep apnea,Heart failure, systolic, due to CAD ([facility]),Dyslipidemia, goal LDL below 70,Chronic ischemic heart disease,Tobacco use disorder,Coronary artery disease involving t[place] apache coronary artery of t[place] apache heart without angina pectoris Inject 140 mg (1 pen) under the skin every 14 days. 6 mL 3 07/02/2023 Active Metoprolol Succinate ER 50 MG Oral Tablet Extended Release 24 Hour (Toprol XL)Indications:Persi stent atrial fibrillation ([facility]),Acute on chronic systolic (congestive) heart failure ([facility]) One tablet by mouth daily at bedtime, this is in addition to the previous prescription for 100 milligrams daily in the morning. 90 Tablet 3 08/23/2023 Active Digoxin 125 MCG Oral Tablet (Lanoxin) Take 1 Tablet by mouth in the morning. 90 Tablet 3 08/23/2023 Active Benzonatate 100 MG Oral CapsuleIndications:C OPD, group D, by GOLD 2017 classification ([facility]) Take 1 Capsule by mouth 3 times a day as needed for Cough. 30 Capsule 3 08/29/2023 Active ARIPiprazole 2 MG Oral Tablet (Abilify)Indications :Moderate episode of recurrent major depressive disorder ([facility]) Take 1 Tablet by mouth in the morning. 30 Tablet 1 09/06/2023 Active Fluticasone-Salmeter ol 250-50 MCG/ACT Inhalation Aerosol Powder Breath Activated (Wixela Inhub)Indications:CO PD, group D, by GOLD 2017 classification ([facility]) Inhale 1 Puff by mouth in the morning and 1 Puff before bedtime. 60 Each 12 09/06/2023 Active Naloxone HCl 4 MG/0.1ML Nasal Liquid (Narcan Nasal) Administer 1 spray into 1 nostril for suspected opioid overdose. Seek immediate medical attention. [email or web address]://[email or web address]/[email or web address]?v=[email or web address] 1 Each 3 09/15/2023 Active Tamsulosin HCl [...] Active Additional Information Patient not taking.Reported on 10/24/2023 Allopurinol 100 MG Oral Tablet (Zyloprim)Indication s:Acute [...] Pain, Severe. 30 Tablet 0 10/25/2023 Active documented as of this encounter (statuses as of 10/26/2023) Active Problems Problem Noted Date Diagnosed Date [...] emphysema 09/22/2021 Atherosclerotic heart diseas e of tonto apache coronary artery with other forms of angina [...] untreated, BMI 43.71 kg/m, NECK: 21 inches, [place] 6/24, sent for bipap titration study 01/11/11 case per P completed ICD-10 update of inactive term BMI 35-39 ISOLATED (SEE ACTUAL BMI) 01/17/2010 Overview: Per Obesity Protocol, #19 BPH without obstruction/lower urinary tract symp toms 08/19/2009 Dyslipidemia, goal LDL below 70 07/21/2009 Overview: Per Lipid Taxonomy. documented as of this encounter (statuses as of 10/26/2023) Resolved Problems Problem Noted Date Diagnosed Date [...] 11/22/2020 10/12/2023 Coronary artery disease invo lving tonto apache coronary artery of t[place] apache heart without angina pectoris 07/06/2020 10/12/2023 Chronic [...] 09/23/201305/17 Claudication 05/13/2013 10/12/2023 [employer] Other*[id number] 04/23/2012 09/12/2016 Overview: Study Title: Genomic Markers for Patients with Cardiovascular Disease Project # [id number] Packing And Wrapping Supervisor: Comfort Aviles MD [phone] Impotence of organic origin 02/16/2011 01/10/2018 Shortness [...] as of this encounter (statuses as of 10/26/2023) Immunizations Name Administration Dates Next Due COVID-19 [...] do you have serious difficulty h earing? No-[place] 11/14/2019 Are you blind or do you [...] encounter Miscellaneous Notes * Telephone Encounter - Ev Lubin MARTIN Posada - 10/26/2023 1:03 PM EDT [facility] Telephonic Nurse Follow-Up Call [facility] Subprogram: Focused Care Management (3-9 months) Follow Up Call Type: 24 hour follow up Acute issue requiring follow-up call: Other: R knee pain and redness ? Gout flair Objective: 10/24/2023 1:59 PM 10/19/2023 3:16 PM 10/12/2023 3:19 PM 10/12/2023 3:17 PM 10/08/2023 9:37 AM VITALS ACROSS ENCOUNTERS BP 128/62 108/58 102/64 92/54 120/86 Pulse 90 54 60 80 Weight 119.8 kg 118.2 kg 126.3 kg BMI 37.39 BMI 37.88 kg/m2 37.39 kg/m2 39.95 kg/m2 Remote Patient Monitoring: NONE Oxygen Needs: NO supplemental oxygen needs identified DME Needs: NO DME needs identified Medications: methylPREDNISolone 4 MG Oral Tablet Therapy Pack (Medrol Dosepack LM requesting return call Future Visits Scheduled: Future Appointments-next 60 days Date/Time Provider Specialty Dept Phone 10/27/2023 9:30 AM [facility], Nurse [facility] [phone] 10/29/2023 2:30 PM (Arrive by 2:15 PM) [facility] Radiology [phone] 10/29/2023 3:00 PM (Arrive by 2:45 PM) Ej Noble MD Pulmonary [phone] 10/31/2023 11:10 AM (Arrive by 10:55 AM) Buster Jessica MD Family Medicine [phone] 11/01/2023 1:30 PM Clary Eastman, Community [facility] Rooming House Inspector; Grisel Richter CRNP [facility] [phone] 11/22/2023 10:00 AM Lisa Tenorio RN [facility] [phone] 01/15/2024 10:40 AM (Arrive by 10:25 AM) Clair Quarles DO Sleep Disorders [phone] 04/22/2024 9:30 AM (Arrive by 9:15 AM) [facility] Cardiology [phone] 05/19/2024 9:30 AM [facility] Radiology [phone] Ev Lubin LPN documented in this encounter Plan of Treatment Upcoming Encounters Date Type Department Care Team (Late st Contact Info) Description 10/27/2023 9:30 AM EDT Scheduled Telephone [facility], [facility] [address] [address] [facility], Nurse [facility] [address] [place] [address] 10/29/2023 2:30 PM EDT Imaging Radiology [facility] 1st [facility] [address] [facility] [place] [address] 10/29/2023 3:00 PM EDT Office Visit Pulmonary Medicine, [address] [place] [address] Ej Noble MD [address] [facility] [place] [address] 10/31/2023 11:10 AM EDT Office Visit [address] [phone] Buster Jessica MD [address] [place] [address] 11/01/2023 1:30 PM EDT Telemedicine [facility], [facility] [address] [place] [address] Grisel Richter CRNP [address] [place] [address] Clary Eastman, Community Health Rooming House Inspector [address] [place] [address] 11/21/2023 10:55 AM EDT Hospital Encounter [facility], Operating Room [facility] [address] [place] [phone] Freeman Beaulieu, DO [address] [place] [phone] 11/21/2023 10:55 AM EDT - 11/21/2023 11:20 AM EDT Surgery [facility], Operating Room [facility] [address] [place] [phone] Freeman Beaulieu, DO [address] [place] [phone] INJECTION SACROILIAC JOINT 11/22/2023 10:00 AM EDT Home Visit [facility] [address] [place] [address] Lisa Tenorio RN [address] [place] [address] 01/15/2024 10:40 AM EDT Office Visit Sleep Disorders [facility] [address] [place] [phone] Clair Quarles, DO [address] [place] [address] 04/22/2024 9:30 AM EDT Cardiac Studies Cardiology, [facility] [address] [place] [address] [facility] [address] [place] [address] 05/19/2024 9:30 AM EDT Appointment Radiology, [id number] [place] [address] Scheduled Procedures Name Priority Associated [...] exists DISCUSS TOBACCO CESSATION (REFER TO SMARTSET #9752) 06/02/2023 06/02/2022, 07/21/2020 Depression, Most Recent Score [...] 09/10/2008 LUNG CANCER SCREENING - USE SMARTSET 22557 Completed 08/22/2022, 05/22/2022, 02/21/2021, Additional history exists [...] this encounter Medical Devices Implanted Type Area Gas Combustion Engineer Device Identifier Shelf Expiration Date Model / Serial / Lot 32mm X 109mm, Zenith Fenestrated Aaa Endovascular Proximal Body Graft, Two Proximal Internal Stent Implanted:Qty: 1 on 04/15/2018 [place] Evens Hoy[place] [facility] [place]: Aorta [employer] 03/20/2021 ZFEN-P-2- 32-109-R / / [id number] Stent Graft [id number] - [id number] - [id number] Implanted:Qty: 1 on 04/15/2018 by Evens Hoyt [place] [facility] [place]: Renal Artery GETINGE : MAQUET 11/30/2020 [id number] / [id number] / [id number] Stent Graft [id number] - [id number] - [id number] Implanted:Qty: 1 on 04/15/2018 by Evens Hoyt [place] [facility] [place]: Renal Artery GETINGE : MAQUET 11/30/2020 28707 / [id number] / [id number] 28mm X 76mm Distal, 12mm Ipsilateral Leg, Zenith Fenestrated Aaa Endovascular Distal Bifurcated Body Graft Implanted:Qty: 1 on 04/15/2018 by Evens Hoyt [place] [facility] [place]A: Aorta [employer] 03/20/2021 ZFEN-D-12 -28-76-C / / [id number] Graft Iliac Leg Spirlz 92e33sl - [id number] Implanted:Qty: 1 on 04/15/2018 by Evens Hoyt [place] [facility] [place] Left: Iliac [employer] 09/14/2020 [id number] / / [id number] Graft Iliac Leg Spirlz 90t99ek - [id number] Implanted:Qty: 1 on 04/15/2018 by Evens Hoyt [place] [facility] [place]: Iliac [employer] 11/09/2020 [id number] / / [id number] Transfixation Pin 6mm 294.950 - [id number] Implanted:Qty: 1 on 11/14/2019 by Mayank Friedman MD at OR [facility] Right: Ankle SYNTHES 294.950 / / Description:transfixation pi n Screw Schanz [id number] - [id number] Implanted:Qty: 2 on 11/14/2019 by Mayank Friedman MD at OR [facility] Right: Leg Lower SYNTHES 294.786SH A / / Description:self drilling sh antz screws 5.0mm x 200mm [employer] Tra[employer] 2.7 Lock Screw 16mm Implanted:Qty: 2 on 11/27/2019 by Donavan Ramirez Jr., [place] [facility] [place]: Ankle ESTHELA : TRAUMA [id number] / / Description:hardware set [employer] Trauma 2.7 Lock Screw 14mm Implanted:Qty: 1 on 11/27/2019 by Donavan Ramirez Jr., [place] [facility] [place]: Ankle ESTHELA : TRAUMA [id number] / / Esthela Trauma 3.5 Screw 14mm Implanted:Qty: 1 on 11/27/2019 by Donavan Ramirez Jr., [place] [facility] [place]: Ankle ESTHELA : TRAUMA [id number] / / Description:hardware set [employer] Trauma 3.5 Screw 18mm Implanted:Qty: 1 on 11/27/2019 by Donavan Ramirez Jr., [place] [facility] [place]: Ankle ESTHELA : TRAUMA [id number] / / Description:hardware set Esthela 3.5 Lockscrew 16mm Implanted:Qty: 1 on 11/27/2019 by Donavan Ramirez Jr., [place] [facility] [place]: Ankle [id number] / / Esthela 2.0 Plate Implanted:Qty: 1 on 11/27/2019 by Donavan Ramirez Jr., [place] [facility] [place]: Ankle [id number] / / Esthela 2.0 Lock Screw Implanted:Qty: 2 on 11/27/2019 by Donavan Ramirez Jr., [place] [facility] [place]: Ankle [id number] / / [place] 2.0 Lock Screw Implanted:Qty: 1 on 11/27/2019 by Donavan Ramirez Jr., [place] [facility] [place]: Ankle [id number] / / [place] 2.0 Lock Screw Implanted:Qty: 1 on 11/27/2019 by Donavan Ramirez Jr., [place] [facility] [place]: Ankle 199650 / / Plate Fib - [id number] Implanted:Qty: 1 on 11/27/2019 by Donavan Ramirez [...] the patient have Health Care Power of Analytical Chemistry Teacher? No Full Code 02/17/2019 12:06 PM 02/18/2019 1:09 PM This order reflects the patients wishes and were consensually agreed upon. Question Answer Comments Discussion of Advance Directives occurred with: Not Discussed Does the patient have a Living Will? No Does the patient have Health Care Power of Analytical Chemistry Teacher? No Full Code 04/15/2018 12:43 PM 04/16/2018 2:43 PM This order reflects the patients wishes and were consensually agreed upon. Care Teams Out And Out Cigar Maker Hand Relationship Specialty Start Date End Date Buster Jessica MD [address] [place] [id number] PCP - General Family Medicine 09/11/22 documented as of this encounter
--- OUTSIDE RECORDS SUMMARY | 2023-12-11 18:51 | External Medical Summary | Summary of Care ---
Author Name Unknown Organization [facility] Address [address] [place] [address] Phone [phone] Care Team Providers Care Oven Loader Name Role Phone Buster Jessica MD Primary Care P [facility] Reason for Visit * Reason Onset Date Comments [facility]: Maintenance 10/27/2023 Encounter Details Date Type Department Care Team (Late st Contact Info) Description 10/27/2023 9:30 AM EDT Scheduled Telephone [facility], [facility] [address] [place] [address] [facility], Nurse [facility] [address] [place] [address] Allergies Active Allergy Reactions Criticality Noted Date Comments Atorvastatin Muscle pain,Unknown 01/18/2015 Medication intolerance, not an allergy Sacubitril-Valsartan Other (Please comment) 09/17/2020 Throat swelled Sacubitril High 07/20/2023 Other Reaction(s): THROAT SWELLING Simvastatin Low 06/23/2022 Other reaction(s): MUSCLE ACHES Valsartan High 07/20/2023 Other Reaction(s): THROAT SWELLING documented as of this encounter (statuses as of 10/27/2023) Medications Medication Sig Dispensed Refills Start Date [...] ReleaseIndications:H TN, goal below 140/90,Paroxysmal atrial fibrillation ([facility]),LBBB (left bundle branch block) TAKE [...] (pLAVix)Indications: PAD (peripheral artery disease) ([facility]),Coronary artery disease involving [place] coronary artery of [place] heart without angina pectoris TAKE [...] Oral Tablet (Aldactone)Indicatio ns:Coronary artery disease involving [place] coronary artery of [place] heart without angina pectoris,Heart failure, systolic, due to CAD ([facility]),Chronic ischemic heart disease,HTN, goal below 140/90 TAKE ONE TABLET BY MOUTH ONCE DAILY 90 Tablet 3 05/14/2023 Active Losartan Potassium 25 MG Oral Tablet (Cozaar)Indications: PAD (peripheral artery disease) ([facility]),Coronary artery disease involving [place] coronary artery of [place] heart without angina pectoris TAKE [...] heart disease,Tobacco use disorder,Coronary artery disease involving [place] coronary artery of [place] heart without angina pectoris Inject 140 mg (1 pen) under the skin every 14 days. 6 mL 3 07/02/2023 Active Metoprolol Succinate ER 50 MG Oral Tablet Extended Release 24 Hour (Toprol XL)Indications:Persi stent atrial fibrillation ([facility]),Acute on chronic [...] :Moderate episode of recurrent major depressive disorder ([facility] [...] overdose. Seek immediate medical attention. [email or web address]?v=[email or web address] 1 Each 3 09/15/2023 Active Tamsulosin HCl [...] as of this encounter (statuses as of 10/27/2023) Active Problems Problem Noted Date Diagnosed Date [...] emphysema 09/22/2021 Atherosclerotic heart diseas e of [place] coronary artery with other forms [...] untreated, BMI 43.71 kg/m, NECK: 21 inches, [place] 6/24, sent for bipap titration study 01/11/11 case per P completed ICD-10 update of inactive term BMI 35-39 ISOLATED (SEE ACTUAL BMI) 01/17/2010 Overview: Per Obesity Protocol, #19 BPH without obstruction/lower urinary tract symp toms 08/19/2009 Dyslipidemia, goal LDL below 70 07/21/2009 Overview: Per Lipid Taxonomy. documented as of this encounter (statuses as of 10/27/2023) Resolved Problems Problem Noted Date Diagnosed Date [...] 11/22/2020 10/12/2023 Coronary artery disease invo lving [place] coronary artery of [place] heart without angina pectoris 07/06/2020 [...] 09/23/201305/17 Claudication 05/13/2013 10/12/2023 [employer] Other*[id number] 04/23/2012 09/12/2016 Overview: Study Title: Genomic Markers for Patients with Cardiovascular Disease Project # [id number] Postal Worker: Comfort Aviles MD [phone] Impotence of organic origin 02/16/2011 01/10/2018 Shortness [...] as of this encounter (statuses as of 10/27/2023) Immunizations Name Administration Dates Next Due COVID-19 [...] do you have serious difficulty h earing? No-NEWHALEN 11/14/2019 Are you blind or do you [...] encounter Miscellaneous Notes * Telephone Encounter - Long, Sandra Evans RN - 10/27/2023 10:44 AM EDT [facility] Telephonic Nurse Follow-Up Call [facility] Subprogram: Focused Care Management (3-9 months) Follow Up Call Type: 48 hour follow up 1339:PC to M # No answer. LMOM w/ [facility] [phone] # provided for call back. Acute issue requiring follow-up call: Other: R knee pain & redness, gout Objective: 10/24/2023 1:59 PM 10/19/2023 3:16 PM [...] DME needs identified Medications: New medication(s) added: medrol dose pack Subjective: Condition Status: Unknown - [facility] Current Concerns: Unknown - [facility] Disposition: Issue resolved. All appropriate follow up scheduled. Has Pulmonary mdicine appointment 10/29/23, PCP - 10/31/23, [facility] telemedicine 10/31/23 Future Visits Scheduled: Future Appointments-next 60 days Date/Time Provider Specialty Dept Phone 10/29/2023 2:30 PM (Arrive by 2:15 PM) [facility] Radiology [phone] 10/29/2023 3:00 PM (Arrive by 2:45 PM) Ej Noble MD Pulmonary [phone] 10/31/2023 11:10 AM (Arrive by 10:55 AM) Buster Jessica MD Family Medicine [phone] 11/01/2023 1:30 PM Clary Eastman [facility]; Grisel Richter CRNP [facility] [phone] 11/22/2023 10:00 AM Lisa Tenorio RN [facility] [phone] 01/15/2024 10:40 AM (Arrive by 10:25 AM) Clair Quarles, Sleep Disorders [phone] 04/22/2024 9:30 AM (Arrive by 9:15 AM) Fredy Shaw [facility] Cardiology [phone] 05/19/2024 9:[address] Radiology [phone] Cecille Davidson RN [facility] Key Ringer/ [facility] Toll Free Number: documented in this encounter Plan of Treatment Upcoming Encounters Date Type Department Care Team (Late st Contact Info) Description 10/29/2023 2:30 PM EDT Imaging Radiology [facility]st [facility] [address] [facility] [place] [address] 10/29/2023 3:00 PM EDT Office Visit Pulmonary Medicine, [facility] [address] [facility] [address] Ej Noble MD [address] [place] [address] 10/31/2023 11:10 AM EDT Office Visit Family [address] [phone] Buster Jessica MD [address] [place] [address] 11/01/2023 1:30 PM EDT Telemedicine [facility], [facility] [address] [place] [address] Grisel Richter CRNP [address] [place] [address] Clary Eastman, [facility]ister [address] [facility], [place] [address] 11/21/2023 10:55 AM EDT Hospital Encounter [facility], Operating Room [facility] [address] [place] [phone] Freeman Beaulieu, DO [address] [place] [phone] 11/21/2023 10:55 AM EDT - 11/21/2023 11:20 AM EDT Surgery OR [facility], Operating Room [facility] [address] [place] [phone] Freeman Beaulieu, DO [address] [place] [phone] INJECTION SACROILIAC JOINT 11/22/2023 10:00 AM EDT Home Visit [facility], [facility] [address] [place] [address] Lisa Tenorio RN [address] [place] [address] 01/15/2024 10:40 AM EDT Office Visit Sleep Disorders C[facility] [address] [place] [phone] Clair Quarles, DO [address] [place] [address] 04/22/2024 9:30 AM EDT Cardiac Studies Cardiology, [facility] [address] [place] [address] [facility] [address] [place] [address] 05/19/2024 9:30 AM EDT Appointment Radiology, [facility] [address] [place] [address] Scheduled Procedures Name Priority Associated [...] exists DISCUSS TOBACCO CESSATION (REFER TO SMARTSET #3731) 06/02/2023 06/02/2022, 07/21/2020 Depression, Most Recent Score [...] 09/10/2008 LUNG CANCER SCREENING - USE SMARTSET 61197 Completed 08/22/2022, 05/22/2022, 02/21/2021, Additional history exists [...] this encounter Medical Devices Implanted Type Area Tableau Developer Device Identifier Shelf Expiration Date Model / Serial / Lot 32mm X 109mm, Zenith Fenestrated Aaa Endovascular Proximal Body Graft, Two Proximal Internal Stent Implanted:Qty: 1 on 04/15/2018 by Evens Hoyt MD at [place] [facility] N/A: Aorta [employer] 03/20/2021 ZFEN-P-2- [id number] / / [id number] Stent Graft [id number] - [id number] - [id number] Implanted:Qty: 1 on 04/15/2018 by Evens Hoyt MD at OR [facility] Right: Renal Artery GETINGE : MAQUET 11/30/2020 45562 / [id number] / [id number] Stent Graft [id number] 48083 - [id number] - [id number] Implanted:Qty: 1 on 04/15/2018 by Evens Hoyt MD at OR [facility] Right: Renal Artery GETINGE : MAQUET 11/30/2020 80691 / [id number] / [id number] 28mm X 76mm Distal, 12mm Ipsilateral Leg, Zenith Fenestrated Aaa Endovascular Distal Bifurcated Body Graft Implanted:Qty: 1 on 04/15/2018 by Evens Hoyt MD at OR [facility] N/A: Aorta [employer] 03/20/2021 ZFEN-D-12 -28-76-C / / [id number] Graft Iliac Leg Spirlz 19m16yy - [id number] Implanted:Qty: 1 on 04/15/2018 by Evens Hoyt MD at OR [facility] Left: Iliac [employer] 09/14/2020 [id number] / / [id number] Graft Iliac Leg Spirlz [id number] - [id number] Implanted:Qty: 1 on 04/15/2018 by Evens Hoyt MD at OR [facility] Right: Iliac [employer] 11/09/2020 [id number] / / [id number] Transfixation Pin 6mm 294.950 - [id number] Implanted:Qty: 1 on 11/14/2019 by Mayank Friedman MD at OR [facility] Right: Ankle SYNTHES 294.950 / / Description:transfixation pi n Screw Schanz [id number] - [id number] Implanted:Qty: 2 on 11/14/2019 by Mayank Friedman MD at OR [facility] Right: Leg Lower SYNTHES 294.786SH A / / Description:self drilling sh antz screws 5.0mm x 200mm Webster Trauma 2.7 Lock Screw 16mm Implanted:Qty: 2 on 11/27/2019 by Donavan Ramirez Jr., MD at OR [facility] Right: Ankle ESTHELA : TRAUMA [id number] / / Description:hardware set Webster Trauma 2.7 Lock Screw 14mm Implanted:Qty: 1 on 11/27/2019 by Donavan Ramirez Jr., MD at OR [facility] Right: Ankle ESTHELA : TRAUMA [id number] / / Esthela Trauma 3.5 Screw 14mm Implanted:Qty: 1 on 11/27/2019 by Donavan Ramirez Jr., MD at OR [facility] Right: Ankle ESTHELA : TRAUMA [id number] / / Description:hardware set Webster Trauma 3.5 Screw 18mm Implanted:Qty: 1 on 11/27/2019 by Donavan Ramirez Jr., MD at OR [facility] Right: Ankle ESTHELA : TRAUMA [id number] / / Description:hardware set Webster 3.5 Lockscrew 16mm Implanted:Qty: 1 on 11/27/2019 by Donavan Ramirez Jr., MD at OR [facility] Right: Ankle [id number] / / Esthela 2.0 Plate Implanted:Qty: 1 on 11/27/2019 by Donavan Ramirez Jr., MD at OR [facility] Right: Ankle [id number] / / Webster 2.0 Lock Screw Implanted:Qty: 2 on 11/27/2019 by Donavan Ramirez Jr., MD at OR [facility] Right: Ankle [id number] / / Webster 2.0 Lock Screw Implanted:Qty: 1 on 11/27/2019 by Donavan Ramirez Jr., MD at [facility] Right: Ankle [id number] / / Webster 2.0 Lock Screw Implanted:Qty: 1 on 11/27/2019 by Donavan Ramirez Jr., MD at OR [facility] Right: Ankle [id number] / / Plate Fib - [id number] Implanted:Qty: 1 on 11/27/2019 by Donavan Ramirez Jr., MD at OR [facility] Right: Ankle ESTHELA : TRAUMA / / [...] patient have Health Care Power of Chief Technician X Ray? No Full Code 02/17/2019 12:06 PM 02/18/2019 1:09 PM This order reflects the patients wishes and were consensually agreed upon. Question Answer Comments Discussion of Advance Directives occurred with: Not Discussed Does the patient have a Living Will? No Does the patient have Health Care Power of Chief Technician X Ray? No Full Code 04/15/2018 12:43 PM 04/16/2018 2:43 PM This order reflects the patients wishes and were consensually agreed upon. Care Teams Oven Loader Relationship Specialty Start Date End Date Buster Jessica MD [address] [place] [address] PCP - General Family Medicine 09/11/22 documented as of this encounter
--- OUTSIDE RECORDS SUMMARY | 2023-12-11 18:51 | External Medical Summary | Summary of Care ---
Author Name Unknown Organization [facility] Address [address] [place] [address] Phone [phone] Care Team Providers Care Truck Engine Assembler Name Role Phone Buster Jessica MD Primary Care P [facility] Reason for Visit * Reason Onset Date Comments [facility]: Maintenance 10/26/2023 Encounter Details Date Type Department Care Team (Late st Contact Info) Description 10/26/2023 11:30 AM EDT Scheduled Telephone [facility], [place] [address] [place] [address] Coordinator, [facility] [address] [place] [address] Allergies Active Allergy Reactions Criticality Noted Date [...] ReleaseIndications:H TN, goal below 140/90,Paroxysmal atrial fibrillation ([facility]),LBBB (left bundle branch block) TAKE 2 [...] ([facility]),Coronary artery disease involving kotlik coronary artery of kotlik heart without angina pectoris TAKE ONE TABLET [...] Oral Tablet (Aldactone)Indicatio ns:Coronary artery disease involving kotlik coronary artery of kotlik heart without angina pectoris,Heart failure, systolic, due to CAD ([facility]),Chronic ischemic heart disease,HTN, goal below 140/90 TAKE ONE TABLET BY MOUTH ONCE DAILY 90 Tablet 3 05/14/2023 Active Losartan Potassium 25 MG Oral Tablet (Cozaar)Indications: PAD (peripheral artery disease) ([facility]),Coronary artery disease involving kotlik coronary artery of kotlik heart without angina pectoris TAKE ONE TABLET [...] heart disease,Tobacco use disorder,Coronary artery disease involving kotlik coronary artery of kotlik heart without angina pectoris Inject 140 mg (1 pen) under the skin every 14 days. 6 mL 3 07/02/2023 Active Metoprolol Succinate ER 50 MG Oral Tablet Extended Release 24 Hour (Toprol XL)Indications:Persi stent atrial fibrillation ([facility]),Acute on chronic systolic (congestive) heart failure ([facility]) One tablet by mouth daily at bedtime, this is in addition to the previous prescription for 100 milligrams daily in the morning. 90 Tablet 3 08/23/2023 Active Digoxin 125 MCG Oral Tablet (Lanoxin) Take 1 Tablet by mouth in the morning. 90 Tablet 3 08/23/2023 Active Benzonatate 100 MG Oral CapsuleIndications:C OPD, group D, by GOLD 2017 classification ([facility]) Take 1 Capsule by mouth 3 times a day as needed for Cough. 30 Capsule 3 08/29/2023 Active ARIPiprazole 2 MG Oral Tablet (Abilify)Indications :Moderate episode of recurrent major depressive disorder ([facility]) Take 1 Tablet by mouth in [...] overdose. Seek immediate medical attention. [email or web address] [email or web address]/[email or web address]?v=v26c [email or web address] 1 Each 3 09/15/2023 Active Tamsulosin HCl [...] emphysema 09/22/2021 Atherosclerotic heart diseas e of kotlik coronary artery with other forms of angina [...] untreated, BMI 43.71 kg/m, NECK: 21 inches, [place] 6/24, sent for bipap titration study 01/11/11 [...] 11/22/2020 10/12/2023 Coronary artery disease invo lving kotlik coronary artery of kotlik heart without angina pectoris 07/06/2020 10/12/2023 Chronic [...] 09/23/201305/17 Claudication 05/13/2013 10/12/2023 [employer] Other*[id number] 04/23/2012 09/12/2016 Overview: Study Title: Genomic Markers for Patients with Cardiovascular Disease Project # [id number] Grinder Brake Lining: Comfort Aviles MD [phone] Impotence of organic origin 02/16/2011 01/10/2018 Shortness [...] you have serious difficulty h earing? No-[place] 11/14/2019 Are you blind or do [...] Telephone Encounter - Miryam Patel RN - 10/26/2023 2:28 PM EDT Return call from patient He is taking the Medrol dose pack, " it is making a big difference", knee feels " a lot better, andnot as warm to touch today like it was yesterday" Aware of follow up call on for tomorrow, but he can call [facility] with any new or worsening symptoms before that call Sabi Patel RN, BSN [facility] Intake Triage Coordinator [phone] * Telephone Encounter - Ev Lubin LPN - 10/26/2023 1:03 PM EDT [facility] Telephonic Nurse Follow-Up Call [facility] Subprogram: Focused Care Management (3-9 months) Follow [...] Provider Specialty Dept Phone 10/27/2023 9:30 AM Region, Nurse [facility] [phone] 10/29/2023 2:30 PM (Arrive by 2:15 PM) [facility] Radiology [phone] 10/29/2023 3:00 PM (Arrive by 2:45 PM) Real, Ej Marek, MD Pulmonary [phone] 10/31/2023 11:10 AM (Arrive by 10:55 AM) Buster Jessica MD Family Medicine [phone] 11/01/2023 1:30 PM Clary Eastman, [facility] Computer Game Programmer; Grisel Richter CRNP [facility] [phone] 11/22/2023 10:00 AM Lisa Tenorio RN [facility] [phone] 01/15/2024 10:40 AM (Arrive by 10:25 AM) Clair Quarles DO Sleep Disorders [phone] 04/22/2024 9:30 AM (Arrive by 9:15 AM) Fredy Shaw [facility] Cardiology [phone] 05/19/2024 9:[address] [place] [address] Radiology [phone] Ev Lubin LPN documented in this encounter Plan of Treatment Upcoming Encounters Date Type Department Care Team (Late st Contact Info) Description 10/27/2023 9:30 AM EDT Scheduled Telephone [facility] [place] [address] [place] [address] Region, Nurse [facility] [address] [place] [address] 10/29/2023 2:30 PM EDT Imaging [facility] [address] [facility] [place] [address] 10/29/2023 3:00 PM EDT Office Visit Pulmonary Medicine, [facility] [address] [facility] [place] [address] Ej Noble [facility] [address] [facility] [place] [address] 10/31/2023 11:10 AM EDT Office Visit Family [facility] [address] [place] [address] Buster Jessica MD [address] [place] [address] 11/01/2023 1:30 PM EDT Telemedicine [facility], [facility] [address] [place] [address] Grisel Richter CRNP [address] [place] [address] Clary Eastman, [facility] Computer Game Programmer [address] [place] [address] 11/21/2023 10:55 AM EDT Hospital Encounter [facility], Operating Room [facility] [address] [place] [phone] Freeman Beaulieu, DO [address] [place] [address] 11/21/2023 10:55 AM EDT - 11/21/2023 11:20 AM EDT Surgery OR [facility], Operating Room [facility] [address] [place] [phone] Freeman Beaulieu, DO [address] [place] [address] INJECTION SACROILIAC JOINT 11/22/2023 10:00 AM EDT Home Visit [facility], [facility] [address] [place] [address] Lisa Tenorio RN [address] [place] [address] 01/15/2024 10:40 AM EDT Office Visit Sleep Disorders Ctr [facility] [address] [place] [phone] Clair Quarles DO [address] [place] [address] 04/22/2024 9:30 AM EDT Cardiac Studies Cardiology, [facility] [address] [facility] [place] [address] [place], [facility] [place] [address] 05/19/2024 9:30 AM EDT Appointment Radiology, [place] [id number] [place] [address] Scheduled Procedures Name Priority Associated [...] 09/10/2008 LUNG CANCER SCREENING - USE SMARTSET [id number] Completed 08/22/2022, 05/22/2022, 02/21/2021, Additional history exists [...] this encounter Medical Devices Implanted Type Area Astrophysics Professor Device Identifier Shelf Expiration Date Model / Serial / Lot 32mm X 109mm, Zenith Fenestrated Aaa Endovascular Proximal Body Graft, Two Proximal Internal Stent Implanted:Qty: 1 on 04/15/2018 by Evens Hoyt MD at OR [facility] N/A: Aorta [facility] 03/20/2021 LISA-P-2- 32-109-R / / [id number] Stent Graft [id number] - [id number] - [id number] Implanted:Qty: 1 on 04/15/2018 by Evens Hoyt MD at OR [facility] Right: Renal Artery GETINGE : MAQUET 11/30/2020 28858 / [id number] / [id number] Stent Graft [id number] - [id number] - [id number] Implanted:Qty: 1 on 04/15/2018 by Evens Hoyt MD at OR [facility] Right: Renal Artery GETINGE : MAQUET 11/30/2020 49529 / [id number] / [id number] 28mm X 76mm Distal, 12mm Ipsilateral Leg, Zenith Fenestrated Aaa Endovascular Distal Bifurcated Body Graft Implanted:Qty: 1 on 04/15/2018 by Evens Hoyt MD at OR [facility] N/A: Aorta [employer] 03/20/2021 LISA-D-12 -28-76-C / / [id number] Graft Iliac Leg Spirlz [id number] - [id number] Implanted:Qty: 1 on 04/15/2018 by Evens Hoyt MD at OR [facility] Left: Iliac [employer] 09/14/2020 [id number] / / [id number] Graft Iliac Leg Spirlz 07q97pe - [id number] Implanted:Qty: 1 on 04/15/2018 by Evens Hoyt MD at OR [facility] Right: Iliac [employer] 11/09/2020 [id number] / / [id number] Transfixation Pin 6mm 294.950 - [id number] Implanted:Qty: 1 on 11/14/2019 by Mayank Friedman MD at OR [facility] Right: Ankle SYNTHES 294.950 / / Description:transfixation pi n Screw Schanz [id number] - [id number] Implanted:Qty: 2 on 11/14/2019 by Mayank Friedman MD at OR [facility] Right: Leg Lower SYNTHES 294.786SH A / / Description:self drilling sh antz screws 5.0mm x 200mm Esthela Trauma 2.7 Lock Screw 16mm Implanted:Qty: 2 on 11/27/2019 by Donavan Ramirez Jr., MD at OR [facility] Right: Ankle ESTHELA : TRAUMA [id number] / / Description:hardware set [place] Trauma 2.7 Lock Screw 14mm Implanted:Qty: 1 on 11/27/2019 by Donavan Ramirez Jr., MD at OR [facility] Right: Ankle ESTHELA : TRAUMA [id number] / / [place] Trauma 3.5 Screw 14mm Implanted:Qty: 1 on 11/27/2019 by Donavan Ramirez Jr., MD at OR [facility] Right: Ankle ESTHELA : TRAUMA [id number] / / Description:hardware set [place]hela Trauma 3.5 Screw 18mm Implanted:Qty: 1 on 11/27/2019 by Donavan Ramirez Jr., MD at OR [facility] Right: Ankle ESTHELA : TRAUMA [id number] / / Description:hardware set [place] 3.5 Lockscrew 16mm Implanted:Qty: 1 on 11/27/2019 by Donavan Ramirez Jr., MD at OR [facility] Right: Ankle [id number] / / [place] 2.0 Plate Implanted:Qty: 1 on 11/27/2019 by Donavan Ramirez Jr., MD at OR [facility] Right: Ankle [id number] / / [place] 2.0 Lock Screw Implanted:Qty: 2 on 11/27/2019 by Donavan Ramirez Jr., MD at OR [facility] Right: Ankle [id number] / / [place]hela 2.0 Lock Screw Implanted:Qty: 1 on 11/27/2019 by Donavan Ramirez Jr., MD at OR [facility] Right: Ankle [id number] / / [place] 2.0 Lock Screw Implanted:Qty: 1 on 11/27/2019 by Donavan Ramirez Jr., MD at OR [facility] Right: Ankle [id number] / / Plate Fib 5h - - [id number] Implanted:Qty: 1 on 11/27/2019 by Donavan Ramirez Jr., MD at OR [facility] Right: Ankle ESTHELA [...] the patient have Health Care Power of English Lecturer? No Full Code 02/17/2019 12:06 PM 02/18/2019 1:09 PM This order reflects the patients wishes and were consensually agreed upon. Question Answer Comments Discussion of Advance Directives occurred with: Not Discussed Does the patient have a Living Will? No Does the patient have Health Care Power of English Lecturer? No Full Code 04/15/2018 12:43 PM 04/16/2018 2:43 PM This order reflects the patients wishes and were consensually agreed upon. Care Teams Truck Engine Assembler Relationship Specialty Start Date End Date Buster Jessica MD [address] [place] [id number] PCP - General Family Medicine 09/11/22 documented as of this encounter
--- OUTSIDE RECORDS SUMMARY | 2023-12-11 18:51 | External Medical Summary | Summary of Care ---
Author Name Unknown Organization [facility] Address [address] [place] [address] Phone [phone] Care Team Providers Care Motor Racer Name Role Phone Buster Jessica MD Primary Care P rovider Reason for Referral * Medication Prior Authorization - Pending Review Specialty Diagnoses / Procedures Referred By Contac t Referred To Contact Diagnoses Chronic bilateral low back pain without sciatica Buster Jessica MD [address] [place] [id number] Referral ID Status Reason Start Date Expiration Date V isits Requested Visits Authorized [id number] Pending Review [id number] Reason for Visit * Reason Onset Date Comments Medication Refill 10/25/2023 Encounter Details Date Type Department Care Team ([facility] Contact Info) Description 10/25/2023 Telephone Family Practice [facility] [address] [place] [address] Buster Jessica MD [address] [place] [phone] Medication Refill Allergies Active Allergy Reactions [...] (Demadex)Indication s:Heart failure, systolic, due to CAD ([facility]) Take 1 tablet by mouth every morning. [...] ReleaseIndications: HTN, goal below 140/90,Paroxysmal atrial fibrillation ([facility]),LBBB (left bundle branch block) TAKE 2 TABLETS BY MOUTH ONCE DAILY IN THE MORNING AND ONE TAB IN THE EVENING 270 Tablet 3 02/07/2023 Active Metoprolol Succinate ER 100 MG Oral Tablet Extended Release 24 Hour (toPROL XL) TAKE ONE TABLET BY MOUTH ONCE DAILY 90 Tablet 3 03/08/2023 Active Clopidogrel Bisulfate 75 MG Oral Tablet (pLAVix)Indications :PAD (peripheral artery disease) ([facility]),Coronary artery disease involving [place] coronary artery of [place] heart without angina pectoris TAKE ONE TABLET BY MOUTH ONCE DAILY 90 Tablet 3 03/13/2023 Active Albuterol Sulfate (2.5 MG/3ML) 0.083% Inhalation Nebulization Solution (Proventil)Indicati ons:COPD, group D, by GOLD 2017 classification ([facility]) Inhale 1 Vial via nebulizer every 4 hours as needed for Wheezing. 75 mL 1 04/23/2023 Active Famotidine 20 MG Oral Tablet (Pepcid) TAKE 1 TABLET BY MOUTH TWICE DAILY (MORNING AND AT BEDTIME) 180 Tablet 3 04/30/2023 Active Spironolactone 25 MG Oral Tablet (Aldactone)Indicati ons:Coronary artery disease involving [place] coronary artery of [place] heart without angina pectoris,Heart failure, systolic, due to CAD ([facility]),Chronic ischemic heart disease,HTN, goal below 140/90 TAKE ONE TABLET BY MOUTH ONCE DAILY 90 Tablet 3 05/14/2023 Active Losartan Potassium 25 MG Oral Tablet (Cozaar)Indications :PAD (peripheral artery disease) ([facility]),Coronary artery disease involving [place] coronary artery of [place] heart without angina pectoris TAKE ONE TABLET [...] failure, systolic, due to CAD ([facility]),Dyslipidemia, goal LDL below 70,Chronic ischemic heart disease,Tobacco use disorder,Coronary artery disease involving [place] coronary artery of [place] heart without angina pectoris Inject 140 mg (1 pen) under the skin every 14 days. 6 mL 3 07/02/2023 Active Metoprolol Succinate ER 50 MG Oral Tablet Extended Release 24 Hour (Toprol XL)Indications:Pers istent atrial fibrillation ([facility]),Acute on chronic systolic (congestive) heart failure ([facility]) One tablet by mouth daily at bedtime, this is in addition to the previous prescription for 100 milligrams daily in the morning. 90 Tablet 3 08/23/2023 Active Digoxin 125 MCG Oral Tablet (Lanoxin) Take 1 Tablet by mouth in the morning. 90 Tablet 3 08/23/2023 Active Benzonatate 100 MG Oral CapsuleIndications: COPD, group D, by GOLD 2017 classification ([facility]) Take 1 Capsule by mouth 3 times a day as needed for Cough. 30 Capsule 3 08/29/2023 Active ARIPiprazole 2 MG Oral Tablet (Abilify)Indication s:Moderate episode of recurrent major depressive disorder ([facility]) Take 1 Tablet by mouth in the morning. 30 Tablet 1 09/06/2023 Active Fluticasone-Salmete rol 250-50 MCG/ACT Inhalation Aerosol Powder Breath Activated (Wixela Inhub)Indications:C OPD, group D, by GOLD 2017 classification ([facility]) Inhale 1 Puff by mouth in the morning and 1 Puff before bedtime. 60 Each 12 09/06/2023 Active Naloxone HCl 4 MG/0.1ML Nasal Liquid (Narcan Nasal) Administer 1 spray into 1 nostril for suspected opioid overdose. Seek immediate medical attention. [email or web address] 1 Each 3 09/15/2023 Active Tamsulosin HCl [...] on 10/24/2023 Allopurinol 100 MG Oral Tablet (Zyloprim)Indicatio ns:Acute [...] Pain, Severe. 30 Tablet 0 10/25/2023 Active oxyCODONE HCl 7.5 MG Oral TabletIndications:C hronic [...] emphysema 09/22/2021 Atherosclerotic heart diseas e of [place] coronary artery with other forms of angina [...] untreated, BMI 43.71 kg/m, NECK: 21 inches, [place] 6/24, sent for bipap titration study 01/11/11 [...] 11/22/2020 10/12/2023 Coronary artery disease invo lving [place] coronary artery of [place] heart without angina pectoris 07/06/2020 10/12/2023 Chronic [...] 09/23/201305/17 Claudication 05/13/2013 10/12/2023 [employer] Other*[id number] 04/23/2012 09/12/2016 Overview: Study Title: Genomic Markers for Patients with Cardiovascular Disease Project # [id number] Pole Framer Machine: Comfort Aviles MD [phone] Impotence of organic origin 02/16/2011 01/10/2018 Shortness [...] do you have serious difficulty h earing? No-NAKNEK 11/14/2019 Are you blind or do you [...] encounter Miscellaneous Notes * Telephone Encounter - Mi Dai CCMA - 10/26/2023 9:37 AM EDT Questions answered through [employer]. PRISCILLA attached. Please verify that all information you needis correct. * Telephone Encounter - Ham Mondragon CPhT - 10/26/2023 8:41 AM EDT Patients insurance would like to inform the office that OXYCODONE-ACETAMINOPHEN 10-325 is requiringadditional information: SUPPORTING CLINICAL NOTES. Prior authorization entered in [employer] at [facility]. [facility]# [id number] Please fax to [phone] before 2pm today 10/25. Thank you, Oh Mondragon ([facility]) Acquisition Lead III [facility] ([facility]) (formerly Telepharmacy) 10/26/2023, 8:41 AM * Telephone Encounter - Buster Jessica MD - 10/25/2023 7:54 PM EDT Received communication from [employer] at home regarding patient complaining of pain and requesting prescription for pain medication. Oxycodone 10 mg electronically prescribed with instructions. documented in this encounter Plan of Treatment Upcoming Encounters Date Type Department Care Team ([facility] st Contact Info) Description 10/26/2023 11:30 AM EDT Scheduled Telephone [facility], [facility] [address] [place] [address] Coordinator, [facility] [address] [facility] [place] [address] 10/27/2023 9:30 AM EDT Scheduled Telephone [facility], [facility] [address] [place] [address] Region, Nurse [facility] [address] [facility] [place] [address] 10/29/2023 2:30 PM EDT Imaging Radiology [facility] [address] [facility] [address] 10/29/2023 3:00 PM EDT Office Visit Pulmonary Medicine, [address] [place] [address] Ej Noble [facility] [address] [facility] [address] 10/31/2023 11:10 AM EDT Office Visit Family [address] [phone] Buster Jessica MD [address] [place] [address] 11/01/2023 1:30 PM EDT Telemedicine [facility], [facility] [address] [place] [address] Grisel Richter CRNP [address] [place] [address] Clary Eastman, Community Health Life Support Technician [address] [facility] [place] [address] 11/21/2023 10:55 AM EDT Hospital Encounter [facility], Operating Room [facility] [address] [place] [phone] Freeman Beaulieu, DO [address] [place] [phone] 11/21/2023 10:55 AM EDT - 11/21/2023 11:20 AM EDT Surgery OR [facility], Operating Room [facility] [address] [place] [phone] Freeman Beaulieu, DO [address] [place] [phone] INJECTION SACROILIAC JOINT 11/22/2023 10:00 AM EDT Home Visit [facility], [place] [address] [place] [address] Lisa Tenorio RN [address] [place] [address] 01/15/2024 10:40 AM EDT Office Visit Sleep Disorders [facility] [address] [place] [phone] Clair Quarles, DO [address] [place] [address] 04/22/2024 9:30 AM EDT Cardiac Studies Cardiology, [facility] [address] [place] [address] [facility] [address] [place] [address] 05/19/2024 9:30 AM EDT Appointment Radiology, [place] [address] [address] [facility] [phone] Scheduled Procedures Name Priority Associated Diagnoses [...] exists DISCUSS TOBACCO CESSATION (REFER TO SMARTSET #7665) 06/02/2023 06/02/2022, 07/21/2020 Depression, Most Recent Score >= 10 (will fire each visit until score < 10) 08/30/2023 08/29/2023 GFR 10/18/2024 10/19/2023, 03/0 11/2023, 09/27/2023, Additional history exists O2 ASSESSMENT COMPLETED IN PAST YEAR FOR COPD 10/23/2024 10/24/2023 Albumin/Creatinine Ratio 06/06/2026 06/06/2023 COLONOSCOPY-EVERY 5 YRS AGES 18-100 10/28/2027 10/27/2022, 04/21/2014, 04/21/2014, Additional history exists DTaP,Tdap,and Td Vaccines (3 - Td or Tdap) 04/13/2030 04/13/2020 (Declined), 08/19/2009 Alpha-1 Antitrypsin Completed 02/19/2020 Pneumococcal Vaccine: 65+ Years Completed 05/27/2020, 12/02/2018, 09/10/2008 LUNG CANCER SCREENING - USE SMARTSET 83180 Completed 08/22/2022, 05/22/2022, 02/21/2021, Additional history exists [...] this encounter Medical Devices Implanted Type Area Cable Former Device Identifier Shelf Expiration Date Model / Serial / Lot 32mm X 109mm, Zenith Fenestrated Aaa Endovascular Proximal Body Graft, Two Proximal Internal Stent Implanted:Qty: 1 on 04/15/2018 by Evens Hoyt MD at OR [facility] N/A: Aorta [employer] 03/20/2021 LISA-P-2- 32-109-R / / [id number] Stent Graft [id number] - [id number] - [id number] Implanted:Qty: 1 on 04/15/2018 by Evens Hoyt MD at OR [facility] Right: Renal Artery GETINGE : MAQUET 11/30/2020 37459 / [id number] / [id number] Stent Graft [id number] - [id number] - [id number] Implanted:Qty: 1 on 04/15/2018 by Evens Hoyt MD at OR [facility] Right: Renal Artery GETINGE : MAQUET 11/30/2020 48658 / [id number] / [id number] 28mm X 76mm Distal, 12mm Ipsilateral Leg, Zenith Fenestrated Aaa Endovascular Distal Bifurcated Body Graft Implanted:Qty: 1 on 04/15/2018 by Evens Hoyt MD at OR [facility] N/A: Aorta [employer] 03/20/2021 LISA-D-12 -28-76-C / / [id number] Graft Iliac Leg Spirlz [id number] - [id number] Implanted:Qty: 1 on 04/15/2018 by Evens Hoyt MD at OR [facility] Left: Iliac [employer] 09/14/2020 [id number] / / [id number] Graft Iliac Leg Spirlz 33e05ng - [id number] Implanted:Qty: 1 on 04/15/2018 by Evens Hoyt MD at OR [facility] Right: Iliac [employer] 11/09/2020 [id number] / / [id number] Transfixation Pin 6mm 294.950 - [id number] Implanted:Qty: 1 on 11/14/2019 by Mayank Friedman MD at OR [facility] Right: Ankle SYNTHES 294.950 / / Description:transfixation pi n Screw Schanz 5.8pce042wf - [id number] Implanted:Qty: 2 on 11/14/2019 by Mayank Friedman MD at OR [facility] Right: Leg Lower SYNTHES 294.786SH A / / Description:self drilling sh antz screws 5.0mm x 200mm North Pole Trauma 2.7 Lock Screw 16mm Implanted:Qty: 2 on 11/27/2019 by Donavan Ramirez Jr., MD at OR [facility] Right: Ankle ESTHELA : TRAUMA [id number] / / Description:hardware set North Pole Trauma 2.7 Lock Screw 14mm Implanted:Qty: 1 on 11/27/2019 by Donavan Ramirez Jr., MD at OR [facility] Right: Ankle ESTHELA : TRAUMA [id number] / / Esthela Trauma 3.5 Screw 14mm Implanted:Qty: 1 on 11/27/2019 by Donavan Ramirez Jr., MD at OR [facility] Right: Ankle ESTHELA : TRAUMA [id number] / / Description:hardware set Esthela Trauma 3.5 Screw 18mm Implanted:Qty: 1 on 11/27/2019 by Donavan Ramirez Jr., MD at OR [facility] Right: Ankle ESTHELA : TRAUMA [id number] / / Description:hardware set Esthela 3.5 Lockscrew 16mm Implanted:Qty: 1 on 11/27/2019 by Donavan Ramirez Jr., MD at OR [facility] Right: Ankle [id number] / / North Pole 2.0 Plate Implanted:Qty: 1 on 11/27/2019 by Donavan Ramirez Jr., MD at OR [facility] Right: Ankle [id number] / / Esthela 2.0 Lock Screw Implanted:Qty: 2 on 11/27/2019 by Donavan Ramirez Jr., MD at OR [facility] Right: Ankle [id number] / / Esthela 2.0 Lock Screw Implanted:Qty: 1 on 11/27/2019 by Donavan Ramirez Jr., MD at OR [facility] Right: Ankle [id number] / / Esthela 2.0 Lock Screw Implanted:Qty: 1 on 11/27/2019 by Donavan Ramirez Jr., MD at OR [facility] Right: Ankle [id number] / / Plate Fib 5h - [id number] Implanted:Qty: 1 on 11/27/2019 by Donavan Ramirez [...] the patient have Health Care Power of Salon Stylist? No Full Code 02/17/2019 12:06 PM 02/18/2019 1:09 PM This order reflects the patients wishes and were consensually agreed upon. Question Answer Comments Discussion of Advance Directives occurred with: Not Discussed Does the patient have a Living Will? No Does the patient have Health Care Power of Salon Stylist? No Full Code 04/15/2018 12:43 PM 04/16/2018 2:43 PM This order reflects the patients wishes and were consensually agreed upon. Care Teams Motor Racer Relationship Specialty Start Date End Date Buster Jessica MD [address] [place] [phone] PCP - General Family Medicine 09/11/22 documented as of this encounter
--- OUTSIDE RECORDS SUMMARY | 2023-12-11 18:51 | External Medical Summary | Summary of Care ---
Author Name Unknown Organization [facility] Address [address] [place] [address] Phone [phone] Care Team Providers Care Remote Sensing Surveyor Name Role Phone Buster Jessica MD Primary Care P rovider Reason for Referral * Medication Prior Authorization - Denied Specialty Diagnoses / Procedures Referred By Contac t Referred To Contact Diagnoses Chronic bilateral low back pain without sciatica Buster Jessica MD [address] [place] [id number] Referral ID Status Reason Start Date Expiration Date Visits Re quested Visits Authorized [id number] Denied 999 045 Reason for Visit * Reason Onset Date Comments Medication Refill 10/25/2023 Encounter Details Date Type Department Care Team ([facility] Contact Info) Description 10/25/2023 Telephone Family Practice [facility] [address] [place] [address] Buster Jessica MD [address] [place] [phone] Medication Refill Allergies Active Allergy Reactions [...] (Demadex)Indication s:Heart failure, systolic, due to CAD ([facility]) Take 1 tablet by mouth [...] ReleaseIndications: HTN, goal below 140/90,Paroxysmal atrial fibrillation ([facility]),LBBB (left bundle branch block) TAKE 2 TABLETS BY MOUTH ONCE DAILY IN THE MORNING AND ONE TAB IN THE EVENING 270 Tablet 3 02/07/2023 Active Metoprolol Succinate ER 100 MG Oral Tablet Extended Release 24 Hour (toPROL XL) TAKE ONE TABLET BY MOUTH ONCE DAILY 90 Tablet 3 03/08/2023 Active Clopidogrel Bisulfate 75 MG Oral Tablet (pLAVix)Indications :PAD (peripheral artery disease) ([facility]),Coronary artery disease involving takotna coronary artery of takotna heart without angina pectoris TAKE ONE TABLET BY MOUTH ONCE DAILY 90 Tablet 3 03/13/2023 Active Albuterol Sulfate (2.5 MG/3ML) 0.083% Inhalation Nebulization Solution (Proventil)Indicati ons:COPD, group D, by GOLD 2017 classification ([facility]) Inhale 1 Vial via nebulizer every 4 hours as needed for Wheezing. 75 mL 1 04/23/2023 Active Famotidine 20 MG Oral Tablet (Pepcid) TAKE 1 TABLET BY MOUTH TWICE DAILY (MORNING AND AT BEDTIME) 180 Tablet 3 04/30/2023 Active Spironolactone 25 MG Oral Tablet (Aldactone)Indicati ons:Coronary artery disease involving takotna coronary artery of [place] heart without angina pectoris,Heart failure, systolic, due to CAD ([facility]),Chronic ischemic heart disease,HTN, goal below 140/90 TAKE ONE TABLET BY MOUTH ONCE DAILY 90 Tablet 3 05/14/2023 Active Losartan Potassium 25 MG Oral Tablet (Cozaar)Indications :PAD (peripheral artery disease) ([facility]),Coronary artery disease involving takotna coronary artery of takotna heart without angina pectoris TAKE ONE TABLET BY MOUTH ONCE DAILY 90 Tablet 3 06/04/2023 Active Baclofen 20 MG Oral TabletIndications:C hronic bilateral low back pain without sciatica Take 1 Tablet by mouth 3 times a day as needed for Muscle spasms. 90 Tablet 5 06/06/2023 Active Repatha SureClick 140 MG/ML Subcutaneous Solution Auto-injector (evolocumab)Indicat ions:Obstructive sleep apnea,Heart failure, systolic, due to CAD ([facility]),Dyslipidemia, goal LDL below 70,Chronic ischemic heart disease,Tobacco use disorder,Coronary artery disease involving takotna coronary artery of takotna heart without angina pectoris Inject 140 mg (1 pen) under the skin every 14 days. 6 mL 3 07/02/2023 Active Metoprolol Succinate ER 50 MG Oral Tablet Extended Release 24 Hour (Toprol XL)Indications:Pers istent atrial fibrillation ([facility]),Acute on chronic systolic (congestive) heart failure ([facility]) One tablet by mouth daily at bedtime, this is in addition to the previous prescription for 100 milligrams daily in the morning. 90 Tablet 3 08/23/2023 Active Digoxin 125 MCG Oral Tablet (Lanoxin) Take 1 Tablet by mouth in the morning. 90 Tablet 3 08/23/2023 Active Benzonatate 100 MG Oral CapsuleIndications: COPD, group D, by GOLD 2017 classification ([facility]) Take 1 Capsule by mouth 3 times a day as needed for Cough. 30 Capsule 3 08/29/2023 Active ARIPiprazole 2 MG Oral Tablet (Abilify)Indication s:Moderate episode of recurrent major depressive disorder ([facility]) Take 1 Tablet by mouth in the morning. 30 Tablet 1 09/06/2023 Active Fluticasone-Salmete rol 250-50 MCG/ACT Inhalation Aerosol Powder Breath Activated (Wixela Inhub)Indications:C OPD, group D, by GOLD 2017 classification ([facility]) Inhale 1 Puff by mouth in the morning and 1 Puff before bedtime. 60 Each 12 09/06/2023 Active Naloxone HCl 4 MG/0.1ML Nasal Liquid (Narcan Nasal) Administer 1 spray into 1 nostril for suspected opioid overdose. Seek immediate medical attention. [email or web address] 1 Each 3 09/15/2023 Active Tamsulosin HCl [...] emphysema 09/22/2021 Atherosclerotic heart diseas e of takotna coronary artery with other forms of angina [...] untreated, BMI 43.71 kg/m, NECK: 21 inches, [place] 01/27, sent for bipap titration study 01/11/11 [...] 11/22/2020 10/12/2023 Coronary artery disease invo lving takotna coronary artery of takotna heart without angina pectoris 07/06/2020 10/12/2023 Chronic [...] 09/23/201305/17 Claudication 05/13/2013 10/12/2023 [employer] Other*[id number] 04/23/2012 09/12/2016 Overview: Study Title: Genomic Markers for Patients with Cardiovascular Disease Project # [id number] Video Engineer: Comfort Aviles MD [phone] Impotence of organic origin 02/16/2011 01/10/2018 Shortness [...] do you have serious difficulty h earing? No-[place] 11/14/2019 Are you blind or do you [...] encounter Miscellaneous Notes * Telephone Encounter - Erika Harris PHARM Tech - 10/29/2023 2:35 PM EDT Pharmacy calling stating the insurance is rejecting the authorization for OXYCODONE-ACETAMINOPHEN 10-325mg because pt is above the maximum morphine equivalent. Thank you, Erika Harris, Commercial Green Building Designer [facility] ([facility] (Formerly Telepharmacy) 10/29/2023,2:36 PM * Telephone Encounter - Mi Dai CCMA - 10/26/2023 9:37 AM EDT Questions answered through [employer] saved. PRISCLILA attached. Please verify that all information you needis correct. * Telephone Encounter - Ham Mondragon CPhT - 10/26/2023 8:41 AM EDT Patients insurance would like to inform the office that OXYCODONE-ACETAMINOPHEN 10-325 is requiringadditional information: SUPPORTING CLINICAL NOTES. Prior authorization entered in [facility] at [facility]. [facility]# [id number] Please fax to [phone] before 2pm today 10/25. Thank you, Oh Mondragon ([facility]) Canceling And Cutting Control Clerk III [facility] ([facility]) (formerly Telepharmacy) 10/26/2023, 8:41 AM * Telephone Encounter - Buster Jessica MD - 10/25/2023 7:54 PM EDT Received communication from [facility] at home regarding patient complaining of pain and requesting prescription for pain medication. Oxycodone 10 mg electronically prescribed with instructions. documented in this encounter Plan of Treatment Upcoming Encounters Date Type Department Care Team (Late st Contact Info) Description 10/29/2023 3:00 PM EDT Office Visit Pulmonary Medicine, [facility] [address] [place] [address] Ej Noble MD [facility] [place] [address] Arrived 10/31/2023 11:10 AM EDT Office Visit [address] [phone] Buster Jessica MD [address] [place] [address] 11/01/2023 1:30 PM EDT Telemedicine [facility], [place] [address] [place] [address] Grisel Richter CRNP [address] [place] [address] Clary Eastman, Community Health Assembler Production Line [address] [place] [address] 11/21/2023 10:55 AM EDT Hospital Encounter [facility] [address] [facility] [phone] Freeman Beaulieu, DO [address] [place] [phone] 11/21/2023 10:55 AM EDT - 11/21/2023 11:20 AM EDT Surgery OR [facility], Operating Room [facility] [address] [place] [phone] Freeman Beaulieu, DO [address] [place] [phone] INJECTION SACROILIAC JOINT 11/22/2023 10:00 AM EDT Home Visit [facility], [facility] [address] [place] [address] Lisa Tenorio RN [address] [place] [address] 01/15/2024 10:40 AM EDT Office Visit [facility] [address] [place] [phone] Clair Quarles, DO [address] [place] [address] 04/22/2024 9:30 AM EDT Cardiac Studies Cardiology, [facility] [address] [place] [address] [place], [facility] [address] [place] [address] 05/19/2024 9:30 AM EDT Appointment Radiology, Matt [address] [phone] Scheduled Procedures Name Priority Associated [...] exists DISCUSS TOBACCO CESSATION (REFER TO SMARTSET #7969) 06/02/2023 06/02/2022, 07/21/2020 Depression, Most Recent Score [...] 09/10/2008 LUNG CANCER SCREENING - USE SMARTSET 01353 Completed 08/22/2022, 05/22/2022, 02/21/2021, Additional history exists [...] this encounter Medical Devices Implanted Type Area Solder Deposit Operator Device Identifier Shelf Expiration Date Model / Serial / Lot 32mm X 109mm, Zenith Fenestrated Aaa Endovascular Proximal Body Graft, Two Proximal Internal Stent Implanted:Qty: 1 on 04/15/2018 by Evens Hoyt MD at [place] [facility] N/A: Aorta [employer] 03/20/2021 ZFEN-P-2- [id number] / / [id number] Stent Graft [id number] - [id number] - [id number] Implanted:Qty: 1 on 04/15/2018 by Evens Hoyt MD at OR [facility] Right: Renal Artery GETINGE : MAQUET 11/30/2020 15098 / [id number] / [id number] Stent Graft [id number] - [id number] - [id number] Implanted:Qty: 1 on 04/15/2018 by Evens Hoyt MD at OR [facility] Right: Renal Artery GETINGE : MAQUET 11/30/2020 19127 / [id number] / [id number] 28mm X 76mm Distal, 12mm Ipsilateral Leg, Zenith Fenestrated Aaa Endovascular Distal Bifurcated Body Graft Implanted:Qty: 1 on 04/15/2018 by Evens Hoyt MD at OR [facility] N/A: Aorta [employer] 03/20/2021 ZFEN-D-12 -28-76-C / / [id number] Graft Iliac Leg Spirlz 00u54ox - [id number] Implanted:Qty: 1 on 04/15/2018 by Evens Hoyt MD at OR [facility] Left: Iliac [employer] 09/14/2020 [id number] / / [id number] Graft Iliac Leg Spirlz 95u40ty - [id number] Implanted:Qty: 1 on 04/15/2018 by Evens Hoyt MD at OR [facility] Right: Iliac [employer] 11/09/2020 [id number] / / [id number] Transfixation Pin 6mm 294.950 - [id number] Implanted:Qty: 1 on 11/14/2019 by Mayank Friedman MD at OR [facility] Right: Ankle SYNTHES 294.950 / / Description:transfixation pi n Screw Schanz 5.6ctx971hg - [id number] Implanted:Qty: 2 on 11/14/2019 by Mayank Friedman MD at OR [facility] Right: Leg Lower SYNTHES 294.786SH A / / Description:self drilling sh antz screws 5.0mm x 200mm Esthela Trauma 2.7 Lock Screw 16mm Implanted:Qty: 2 on 11/27/2019 by Donavan Ramirez Jr., MD at OR [facility] Right: Ankle ESTHELA : TRAUMA [id number] / / Description:hardware set [place] Trauma 2.7 Lock Screw 14mm Implanted:Qty: 1 on 11/27/2019 by Donavan Ramirez Jr., MD at OR [facility] Right: Ankle ESTHELA : TRAUMA [id number] / / [place] Trauma 3.5 Screw 14mm Implanted:Qty: 1 on 11/27/2019 by Donavan Ramirez Jr., MD at OR [facility] Right: Ankle ESTHELA : TRAUMA [id number] / / Description:hardware set Esthela Trauma 3.5 Screw 18mm Implanted:Qty: 1 on 11/27/2019 by Donavan Ramirez Jr., MD at OR [facility] Right: Ankle ESTHELA : TRAUMA [id number] / / Description:hardware set Esthela 3.5 Lockscrew 16mm Implanted:Qty: 1 on 11/27/2019 by Donavan Ramirez Jr., MD at OR [facility] Right: Ankle [id number] / / [place] 2.0 Plate Implanted:Qty: 1 on 11/27/2019 by Donavan Ramirez Jr., MD at OR [facility] Right: Ankle [id number] / / Esthela 2.0 Lock Screw Implanted:Qty: 2 on 11/27/2019 by Donavan Ramirez Jr., MD at OR [facility] Right: Ankle [id number] / / Esthela 2.0 Lock Screw Implanted:Qty: 1 on 11/27/2019 by Donavan Ramirez Jr., MD at OR [facility] Right: Ankle [id number] / / Esthela 2.0 Lock Screw Implanted:Qty: 1 on 11/27/2019 by Donavan Ramirez Jr., MD at OR [facility] Right: Ankle [id number] / / Plate Fib [id number] - [id number] Implanted:Qty: 1 on 11/27/2019 by Donavan Ramirez Jr., MD at OR [facility] Right: Ankle ESTHELA : TRAUMA [id number] / / Description:hardware set documented as of [...] the patient have Health Care Power of Tube Turner? No Full Code 02/17/2019 12:06 PM 02/18/2019 1:09 PM This order reflects the patients wishes and were consensually agreed upon. Question Answer Comments Discussion of Advance Directives occurred with: Not Discussed Does the patient have a Living Will? No Does the patient have Health Care Power of Tube Turner? No Full Code 04/15/2018 12:43 PM 04/16/2018 2:43 PM This order reflects the patients wishes and were consensually agreed upon. Care Teams Remote Sensing Surveyor Relationship Specialty Start Date End Date Buster Jessica MD [address] [place] [phone] PCP - General Family Medicine 09/11/22 documented as of this encounter
--- OUTSIDE RECORDS SUMMARY | 2023-12-11 18:52 | External Medical Summary | Summary of Care ---
Author Name Unknown Organization [facility] Address [address] [place] [address] Phone [phone] Care Team Providers Care Area Sales Manager Name Role Phone Buster Jessica MD Primary Care P rovider Reason for Referral * Medication Prior Authorization - Pending Review Specialty Diagnoses / Procedures Referred By Contac t Referred To Contact Diagnoses Chronic bilateral low back pain without sciatica Buster Jessica MD [address] [place] [address] Referral ID Status Reason Start Date Expiration Date V isits Requested Visits Authorized [id number] Pending Review [id number] Reason for Visit * Reason Onset Date Comments Medication Refill 10/25/2023 Encounter Details Date Type Department Care Team ([facility] Contact Info) Description 10/25/2023 Telephone Family Practice [facility] [address] [place] [address] Buster Jessica MD [address] [place] [phone] Medication Refill Allergies Active Allergy Reactions [...] (Demadex)Indication s:Heart failure, systolic, due to CAD ([facility]) Take 1 tablet by mouth every morning. [...] ReleaseIndications: HTN, goal below 140/90,Paroxysmal atrial fibrillation ([facility]),LBBB (left bundle branch block) TAKE 2 TABLETS BY MOUTH ONCE DAILY IN THE MORNING AND ONE TAB IN THE EVENING 270 Tablet 3 02/07/2023 Active Metoprolol Succinate ER 100 MG Oral Tablet Extended Release 24 Hour (toPROL XL) TAKE ONE TABLET BY MOUTH ONCE DAILY 90 Tablet 3 03/08/2023 Active Clopidogrel Bisulfate 75 MG Oral Tablet (pLAVix)Indications :PAD (peripheral artery disease) ([facility]),Coronary artery disease involving [place] coronary artery of [place] heart without angina pectoris TAKE ONE TABLET BY MOUTH ONCE DAILY 90 Tablet 3 03/13/2023 Active Albuterol Sulfate (2.5 MG/3ML) 0.083% Inhalation Nebulization Solution (Proventil)Indicati ons:COPD, group D, by GOLD 2017 classification ([facility]) Inhale 1 Vial via nebulizer every 4 hours as needed for Wheezing. 75 mL 1 04/23/2023 Active Famotidine 20 MG Oral Tablet (Pepcid) TAKE 1 TABLET BY MOUTH TWICE DAILY (MORNING AND AT BEDTIME) 180 Tablet 3 04/30/2023 Active Spironolactone 25 MG Oral Tablet (Aldactone)Indicati ons:Coronary artery disease involving [place] coronary artery of [place] heart without angina pectoris,Heart failure, systolic, due to CAD ([facility]),Chronic ischemic heart disease,HTN, goal below 140/90 TAKE ONE TABLET BY MOUTH ONCE DAILY 90 Tablet 3 05/14/2023 Active Losartan Potassium 25 MG Oral Tablet (Cozaar)Indications :PAD (peripheral artery disease) ([facility]),Coronary artery disease involving [place] coronary artery of [place] heart without angina pectoris TAKE ONE TABLET BY MOUTH ONCE DAILY 90 Tablet 3 06/04/2023 Active Baclofen 20 MG Oral TabletIndications:C hronic bilateral low back pain without sciatica Take 1 Tablet by mouth 3 times a day as needed for Muscle spasms. 90 Tablet 5 06/06/2023 Active Repatha SureClick 140 MG/ML Subcutaneous Solution Auto-injector (evolocumab)Indicat ions:Obstructive sleep apnea,Heart failure, systolic, due to CAD ([facility]),Dyslipidemia, goal LDL below 70,Chronic ischemic heart disease,Tobacco use disorder,Coronary artery disease involving [place] coronary artery of [place] heart without angina pectoris Inject 140 mg (1 pen) under the skin every 14 days. 6 mL 3 07/02/2023 Active Metoprolol Succinate ER 50 MG Oral Tablet Extended Release 24 Hour (Toprol XL)Indications:Pers istent atrial fibrillation ([facility]),Acute on chronic systolic (congestive) heart failure ([facility]) One tablet by mouth daily at bedtime, this is in addition to the previous prescription for 100 milligrams daily in the morning. 90 Tablet 3 08/23/2023 Active Digoxin 125 MCG Oral Tablet (Lanoxin) Take 1 Tablet by mouth in the morning. 90 Tablet 3 08/23/2023 Active Benzonatate 100 MG Oral CapsuleIndications: COPD, group D, by GOLD 2017 classification ([facility]) Take 1 Capsule by mouth 3 times a day as needed for Cough. 30 Capsule 3 08/29/2023 Active ARIPiprazole 2 MG Oral Tablet (Abilify)Indication s:Moderate episode of recurrent major depressive disorder ([facility]) Take 1 Tablet by mouth in the morning. 30 Tablet 1 09/06/2023 Active Fluticasone-Salmete rol 250-50 MCG/ACT Inhalation Aerosol Powder Breath Activated (Wixela Inhub)Indications:C OPD, group D, by GOLD 2017 classification ([facility]) Inhale 1 Puff by mouth in the morning and 1 Puff before bedtime. 60 Each 12 09/06/2023 Active Naloxone HCl 4 MG/0.1ML Nasal Liquid (Narcan Nasal) Administer 1 spray into 1 nostril for suspected opioid overdose. Seek immediate medical attention. [email or web address] 1 Each 3 09/15/2023 Active Tamsulosin HCl [...] emphysema 09/22/2021 Atherosclerotic heart diseas e of [place] coronary artery with other forms of angina [...] untreated, BMI 43.71 kg/m, NECK: 21 inches, [place] 6/24, sent for bipap titration study 01/11/11 [...] 11/22/2020 10/12/2023 Coronary artery disease invo lving [place] coronary artery of [place] heart without angina pectoris 07/06/2020 10/12/2023 Chronic [...] 09/23/201305/17 Claudication 05/13/2013 10/12/2023 [employer] Other*[id number] 04/23/2012 09/12/2016 Overview: Study Title: Genomic Markers for Patients with Cardiovascular Disease Project # [id number] Auto Body Repair Estimator: Comfort Aviles MD [phone] Impotence of organic origin 02/16/2011 01/10/2018 Shortness [...] do you have serious difficulty h earing? No-EYAK 11/14/2019 Are you blind or do you [...] NOTES. Prior authorization entered in [employer] at [facility]# [id number] Please fax to [phone] before 2pm today 10/25. Thank you, Oh Mondragon ([facility]) Supply Aide III [facility] ([facility]) (formerly Telepharmacy) 10/26/2023, 8:41 AM * Telephone Encounter - Buster Jessica MD - 10/25/2023 7:54 PM EDT Received communication from [facility] regarding patient complaining of pain and requesting prescription for pain medication. Oxycodone 10 mg electronically prescribed with instructions. documented in this encounter Plan of Treatment Upcoming Encounters Date Type Department Care Team (Late st Contact Info) Description 10/26/2023 11:30 AM EDT Scheduled Telephone [facility], [address] [place] [address] Coordinator, [facility] [address] [place] [address] 10/27/2023 9:30 AM EDT Scheduled Telephone [facility], [facility] [address] [place] [address] Region, Nurse [facility] [address] [place] [address] 10/29/2023 2:30 PM EDT Imaging Radiology [facility] [address] [facility] [place] [address] 10/29/2023 3:00 PM EDT Office Visit Pulmonary Medicine, [address] [place] [address] Ej Noble MD [address] [place] [address] 10/31/2023 11:10 AM EDT Office Visit [address] [address] Buster Jessica MD [address] [place] [address] 11/01/2023 1:30 PM EDT Telemedicine [facility], [facility] [address] [place] [address] Grisel Richter CRNP [address] [facility] [address] Clary Eastman, [facility] [place] [address] 11/21/2023 10:55 AM EDT Hospital Encounter [facility], Operating Room [facility] [address] [place] [address] Freeman Beaulieu, DO [address] [place] [phone] 11/21/2023 10:55 AM EDT - 11/21/2023 11:20 AM EDT Surgery OR [facility] [address], Operating Room [facility] [address] [place] [phone] Freeman Beaulieu, DO [address] [place] [phone] INJECTION SACROILIAC JOINT 11/22/2023 10:00 AM EDT Home Visit [facility], [facility] [address] [place] [address] Lisa Tenorio RN [address] [place] [address] 01/15/2024 10:40 AM EDT Office Visit [facility] [address] [place] [phone] Clair Quarles, [address] [place] [address] 04/22/2024 9:30 AM EDT [facility] [address] [place] [address] [address] [facility] [address] [place] [address] 05/19/2024 9:30 AM EDT Appointment Radiology, [address] [address] Scheduled Procedures Name Priority Associated [...] exists DISCUSS TOBACCO CESSATION (REFER TO SMARTSET #1180) 06/02/2023 06/02/2022, 07/21/2020 Depression, Most Recent Score [...] 09/10/2008 LUNG CANCER SCREENING - USE SMARTSET 50532 Completed 08/22/2022, 05/22/2022, 02/21/2021, Additional history exists [...] this encounter Medical Devices Implanted Type Area Water Ski Assembler Device Identifier Shelf Expiration Date Model / Serial / Lot 32mm X 109mm, Zenith Fenestrated Aaa Endovascular Proximal Body Graft, Two Proximal Internal Stent Implanted:Qty: 1 on 04/15/2018 by Evens Hoyt MD at OR [facility] N/A: Aorta [employer] 03/20/2021 ZFEN-P-2- 32-109-R / / [id number] Stent Graft [id number] - [id number] - [id number] Implanted:Qty: 1 on 04/15/2018 by Evens Hoyt MD at OR [facility] Right: Renal Artery GETINGE : MAQUET 11/30/2020 [id number] / [id number] / [id number] Stent Graft [id number] - [id number] - [id number] Implanted:Qty: 1 on 04/15/2018 by Evens Hoyt MD at OR [facility] Right: Renal Artery GETINGE : MAQUET 11/30/2020 [id number] / [id number] / [id number] 28mm X 76mm Distal, 12mm Ipsilateral Leg, Zenith Fenestrated Aaa Endovascular Distal Bifurcated Body Graft Implanted:Qty: 1 on 04/15/2018 by Evens Hoyt MD at OR [facility] N/A: Aorta [employer] 03/20/2021 ZFEN-D-12 -28-76-C / / [id number] Graft Iliac Leg Spirlz [id number] - [id number] Implanted:Qty: 1 on 04/15/2018 by Evens Hoyt MD at OR [facility] Left: Iliac [employer] 09/14/2020 [id number] / / [id number] Graft Iliac Leg Spirlz [id number] - [id number] Implanted:Qty: 1 on 04/15/2018 by Evens Hoyt MD at OR [facility] Right: Iliac [employer] 11/09/2020 [id number] / / [id number] Transfixation Pin 6mm 294.950 - [id number] Implanted:Qty: 1 on 11/14/2019 by Mayank Friedman MD at OR [facility] Right: Ankle SYNTHES 294.950 / / Description:transfixation pi n Screw Schanz [id number] - [id number] Implanted:Qty: 2 on 11/14/2019 by Mayank Friedman MD at OR [facility] Right: Leg Lower SYNTHES 294.786SH A / / Description:self drilling sh antz screws 5.0mm x 200mm [place] Trauma 2.7 Lock Screw 16mm Implanted:Qty: 2 on 11/27/2019 by Donavan Ramirez Jr., MD at OR [facility] Right: Ankle ESTHELA : TRAUMA [id number] / / Description:hardware set [place] Trauma 2.7 Lock Screw 14mm Implanted:Qty: 1 on 11/27/2019 by Donavan Ramirez Jr., MD at OR [facility] Right: Ankle ESTHELA : TRAUMA [id number] / / [place] Trauma 3.5 Screw 14mm Implanted:Qty: 1 on 11/27/2019 by Donavan Ramirez Jr., MD at OR [facility] Right: Ankle ESTHELA : TRAUMA [id number] / / Description:hardware set [place] Trauma 3.5 Screw 18mm Implanted:Qty: 1 on 11/27/2019 by Donavan Ramirez Jr., MD at OR [facility] Right: Ankle ESTHELA : TRAUMA [id number] / / Description:hardware set [place] 3.5 Lockscrew 16mm Implanted:Qty: 1 on 11/27/2019 by Donavan Ramirez Jr., MD at OR [facility] Right: Ankle [id number] / / [place] 2.0 Plate Implanted:Qty: 1 on 11/27/2019 by Donavan Ramirez Jr., MD at OR [facility] Right: Ankle [id number] / / [place] 2.0 Lock Screw Implanted:Qty: 2 on 11/27/2019 by Donavan Ramirez Jr., MD at OR [facility] Right: Ankle [id number] / / [place] 2.0 Lock Screw Implanted:Qty: 1 on 11/27/2019 by Donavan Ramirez Jr., MD at OR [facility] Right: Ankle [id number] / / [place] 2.0 Lock Screw Implanted:Qty: 1 on 11/27/2019 by Donavan Ramirez Jr., MD at OR [facility] Right: Ankle [id number] / / Plate [facility] [id number] - [id number] Implanted:Qty: 1 on 11/27/2019 by Donavan Ramirez Jr., MD at [facility] Right: Ankle ESTHELA : TRAUMA [id number] / / Description:hardware set documented as of [...] patient have Health Care Power of Emergency Room Orderly? No Full Code 02/17/2019 12:06 PM 02/18/2019 1:09 PM This order reflects the patients wishes and were consensually agreed upon. Question Answer Comments Discussion of Advance Directives occurred with: Not Discussed Does the patient have a Living Will? No Does the patient have Health Care Power of Emergency Room Orderly? No Full Code 04/15/2018 12:43 PM 04/16/2018 2:43 PM This order reflects the patients wishes and were consensually agreed upon. Care Teams Area Sales Manager Relationship Specialty Start Date End Date Buster Jessica MD [address] [place] [phone] PCP - General Family Medicine 09/11/22 documented as of this encounter
--- OUTSIDE RECORDS SUMMARY | 2023-12-11 18:52 | External Medical Summary | Summary of Care ---
Author Name Unknown Organization [facility] Address [address] [place] [address] Phone [phone] Care Team Providers Care After School Program Assistant Name Role Phone Buster Jessica MD Primary Care [facility] Reason for Visit * Reason Comments [facility]: Enrollment Encounter Details Date Type Department Care Team (Late st Contact Info) Description 10/24/2023 12:30 PM EDT Home Visit [facility] [place] [address] [place] [address] Lisa Tenorio RN [address] [place] [address] Depression, major* Allergies Active Allergy Reactions Criticality Noted Date Comments Atorvastatin Muscle pain,Unknown 01/18/2015 Medication intolerance, not an allergy Sacubitril-Valsartan Other (Please comment) 09/17/2020 Throat swelled Sacubitril High 07/20/2023 Other Reaction(s): THROAT SWELLING Simvastatin Low 06/23/2022 Other reaction(s): MUSCLE ACHES Valsartan High 07/20/2023 Other Reaction(s): THROAT SWELLING documented as of this encounter (statuses as of 10/25/2023) Medications Medication Sig Dispensed Refills Start Date End Date Status Torsemide 100 MG Oral Tablet (Demadex)Indications :Heart failure, systolic, due to CAD ([facility]) Take 1 tablet by [...] ReleaseIndications:H TN, goal below 140/90,Paroxysmal atrial fibrillation ([facility]),LBBB (left bundle branch block) TAKE [...] Tablet (pLAVix)Indications: PAD (peripheral artery disease) ([facility]),Coronary artery disease involving [place] coronary artery of [place] heart without angina pectoris TAKE ONE TABLET [...] artery disease involving [place] coronary artery of [place] heart without angina pectoris,Heart failure, systolic, due to CAD ([facility]),Chronic ischemic heart disease,HTN, goal below 140/90 TAKE ONE TABLET BY MOUTH ONCE DAILY 90 Tablet 3 05/14/2023 Active Losartan Potassium 25 MG Oral Tablet (Cozaar)Indications: PAD (peripheral artery disease) ([facility]),Coronary artery disease involving [place] coronary artery of [place] heart without angina pectoris TAKE ONE TABLET [...] apnea,Heart failure, systolic, due to CAD ([facility]),Dyslipidemia, goal LDL below 70,Chronic ischemic heart disease,Tobacco use disorder,Coronary artery disease involving [place] coronary artery of [place] heart without angina pectoris Inject 140 mg (1 pen) under the skin every 14 days. 6 mL 3 07/02/2023 Active Metoprolol Succinate ER 50 MG Oral Tablet Extended Release 24 Hour (Toprol XL)Indications:Persi stent atrial fibrillation ([facility]),Acute on [...] :Moderate episode of recurrent major depressive disorder ([facility]) Take 1 Tablet by mouth [...] suspected opioid overdose. Seek immediate medical attention. https://[email or web address].com/watch?v=v26c [email or web address] 1 Each 3 09/15/2023 Active Tamsulosin HCl [...] Additional Information Patient not taking.Reported on 10/24/2023 oxyCODONE HCl 7.5 MG Oral TabletIndications:Ch ronic bilateral low back pain without sciatica Take 1 Tablet by mouth every 6 hours as needed for Pain, Severe. 28 Tablet 0 10/19/2023 Active Allopurinol 100 MG Oral Tablet (Zyloprim)Indication s:Acute gout of right hand, unspecified cause Take 1 Tablet by mouth in the morning. 30 Tablet 11 10/19/2023 Active metOLazone 2.5 MG Oral Tablet (Zaroxolyn)Indicatio ns:Ischemic cardiomyopathy Take 1 Tablet by mouth once a week. take 30 minutes prior to torsemide 4 Tablet 5 10/22/2023 Active documented as of this encounter (statuses as of 10/25/2023) Active Problems Problem Noted Date Diagnosed Date [...] emphysema 09/22/2021 Atherosclerotic heart diseas e of [place] coronary artery with other forms of angina [...] untreated, BMI 43.71 kg/m, NECK: 21 inches, [place] 6/24, sent for bipap titration study 01/11/11 case per [facility] completed ICD-10 update of inactive term BMI 35-39 ISOLATED (SEE ACTUAL BMI) 01/17/2010 Overview: Per Obesity Protocol, #19 BPH without obstruction/lower urinary tract symp toms 08/19/2009 Dyslipidemia, goal LDL below 70 07/21/2009 Overview: Per Lipid Taxonomy. documented as of this encounter (statuses as of 10/25/2023) Resolved Problems Problem Noted Date Diagnosed Date [...] disease invo lving [place] coronary artery of [place] heart without angina pectoris 07/06/2020 10/12/2023 Chronic [...] 09/23/201305/17 Claudication 05/13/2013 10/12/2023 [employer] Other*[id number] 04/23/2012 09/12/2016 Overview: Study Title: Genomic Markers for Patients with Cardiovascular Disease Project # [id number] Tooth Cutter Clutch: Comfort Aviles MD [phone] Impotence of organic origin 02/16/2011 01/10/2018 Shortness [...] as of this encounter (statuses as of 10/25/2023) Immunizations Name Administration Dates Next Due COVID-19 [...] Sign Reading Time Taken Comments Blood Pressure 128/62 10/24/2023 1:59 PM EDT 140/68 left arm Pulse 90 10/24/2023 1:59 PM EDT Temperature 37.3 C (99.1 F) 10/24/2023 1 :59 PM EDT Respiratory Rate - - Oxygen Saturation 96% 10/24/2023 1:5 9 PM EDT room air Inhaled Oxygen Concentration - - Weight 119.7 kg (264 lb) 10/24/2023 1:5 9 PM EDT Height - - Body Mass Index 37.88 10/19/2023 3:16 PM EDT documented in this encounter Functional Status Functional Status Response Date of Assess ment Are you deaf or do you have serious difficulty h earing? No-[place] 11/14/2019 Are you blind or do [...] Progress Notes * Lisa Tenorio RN - 10/24/2023 12:30 PM EDT [facility] Labor Arbitrator Monthly Visit Date: 10/24/2023 Time: 1:00 PM Name: Dago Gunter : 1950 Current Concerns: 73 yo male being seen for [facility] enrollment visit. PMHX: thoracic aortic aneurysm, PVD, LBBB, biventricular ICD, coronary implant & graft, AAA, a-fib, HF, cardiomyopathy, HTN, COPD, BRIAN, RLL pulmonary nodule, chronic back pain, basal cell carcinoma, squamous cell carcinoma of ala n[place], BPH, neuropathic pain in both feet, tobacco dependence, anxiety, alcohol use PC placed to pt, LMOM to call NCM back. Pt called Nurse back. Pt agreeable for visit. Physical address - [address] [place] [address] [address] in [address] between [employer] [place] [employer] Use either entrance on porch (side of building you pull in at) Arrived at [employer] / bar / restaurant. Family member directed nurse into the bar area where pt is at. Pt sitting at bar watching TV. Bar currently closed. Family is present in kitchen &spouse came into bar area during visit. Currently living at [facility] until home is remodeled. Pt [place] & has a hard time understanding staff with mask on. He engages in conversations. Pt voices to nurse that he has been feeling depressed & has lost interest in most things. During visit pt smokes several cigarettes. smoking 1 pack of cigarettes daily. Voiced no interest in quitting smoking. Voices occasional alcohol consumption. Reports on 10.19.23 PCP just placed on allopurinol for enlarged knuckles of right hand & left elbow. Spouse manages appointments & meds. She reports pt does not take meds & inhalers like he issuppose to. He reports he does not like BIPAP r/t feeling claustrophobic when he tries to wear it. He wakes up with BIPAP apart. PCP ordered new BIPAP on 10.18.22 & sleep med referral. BIPAP - [facility] is his DME provider. Concerned with balance / gait. During visit he did ambulate to bathroom & back without difficulty. A little unsteady when he first gets up. Discussed therapy - Declines therapy Weighs daily at home 2 days ago weight was 255lbs Today weight is 264lbs Physical Exam: BP 128/62 (BP Site: Right Arm, BP Position: Sitting) Comment: 140/68 left arm | Pulse 90 | Temp 37.3 C (99.1 F) (Tympanic) | Wt 119.7 kg (264 lb) | SpO2 96% Comment: room air | BMI 37.88 kg/m |BSA 2.43 m Pain 0 Physical Exam Constitutional: General: He is awake. HENT: Mouth/Throat: Mouth: Mucous membranes are moist. Cardiovascular: Rate and Rhythm: Normal rate. Pulmonary: Effort: Pulmonary effort is normal. Breath sounds: Wheezing (RLL) present. Abdominal: General: Abdomen is flat. Bowel sounds are normal. Musculoskeletal: General: Swelling (right hand knuckles - PCP placed on allpurinol) and deformity (right hand knuckles - PCP placed on allpurinol) present. Normal range of motion. Cervical back: [...] of Systems HENT: Positive for hearing loss (spouse reports he is to hearing aides but he will no wear them). Respiratory: Positive for cough (NPC - chronic - smoker). Gastrointestinal: LBM today Endocrine: Positive for cold intolerance. Musculoskeletal: Positive for arthralgias, back pain (chronic - takes oxy) and joint swelling (reports has recently having some joint pain & enlarged Knuckles of right hand & left elbow - wasjust placed on allpurinol by PCP on 10.19.23). Psychiatric/Behavioral: Negative for self-injury and suicidal ideas. Admits to depression. States he has no interest in anything any more. Denies SI or plan for self harm. Medication Reconciliation: (See medication list) Does patient take medications as ordered: No Patient is forgetting to take medication(s). and does not take meds as directed (inhalers) &forgets to take some of his meds.has missed last 2 afternoon doses of diuretics BOTTLE OUT MEDS REVIEW WITH SPOUSE & PT Patient Well Being: PHQ2/9: No questionnaires available. Has cane & walker - doesn't use Has nebulizer - only uses when absolutely uses when needed Has inhaler - hagan no use. BIPAP - does not use - PCP ordered valium - denies trying. PCP placed order on 10.19.23. 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 [facility] Completed this Visit: Yes. [facility]: Reason Completed: Enrollment [facility] Interventions: DME ordered: has cane & walker he does not use Confirmed current care and supervision in home: lives with spoouse Advanced Care Planning: No documentation, not discussed today. Patient's Goals of Care: Live at least [...] medication regimen. Timing., Dosing., and Purspose. Treatment/Plan: HF / weight gain -pt missed last 2 afternoon doses of diuretics -during visit had him take his afternoon 100 mg torsemide. -TT sent to Erlinda Clark PA-C; made aware. No additional changes. Reinforce medication / diuretic compliance -f/u PC to check weight in ~2 days Reviewed HF symptom monitoring: -Weigh self daily [...] if at night -increased fatigue or vertigo -routed chart to scheduling as high priority to schedule provider enrollment visit. -reviewed recent labs with pt & spouse Depressed no interest in things [facility] referral placed - pt agreeable Discussed goals of [facility] program- -focus on disease management and collaboration w/ all providers -Interdisciplinary [facility] team approach -use of [facility] 24/7 intake line for acute issues/concerns -monthly and PRN NCM/JESSICA provider visits w/ length of time to be determined depending on recovery and needs. -reduction of ER visits and hospitalizations -education on self-management and red flags -SMAP completed & left with pt -assigned sub group -updated graduation form --Tobacco: Assess readiness to quit - not [...] not want to quit Home Interventions Provided: Oral Medications: Other; had pt take afternoon dose 100 mg torsemide Consulted PCP/Specialist Reinforced current Plan of Care, including self-management and medication regimen Updated Exacerbation Plan Patient's 'Red Flags': Weight gain 2-3lbs in one day & 5lbs in one week Increased trouble breathing Swelling in feet or legs - shoes get tight Patient Needs to Remember: Call [facility] or PCP with red flags or urgent medical needs Referrals Needed: SW - depression - loss of interest in daily things Instrument Checker Follow Up: Is there cellular connectivity/connectivity in the home? Yes Does the patient have internet in the home? Yes Patient encouraged to call the intake phone number for all urgent but not emergent issues. Is the patient new to [facility] within the last 30 days? Yes, Is this a Transitions of Care visit? Yes, this is the 1st visit. Provider is in agreement with Plan of Care: Yes Scheduled to follow up with patient in ~4-6 weeks. Lisa Tenorio RN 10/24/2023 1:00 PM documented in this encounter Plan of Treatment Upcoming Encounters Date Type Department Care Team (Late st Contact Info) Description 10/26/2023 11:30 AM EDT Scheduled [facility]phone [facility] [place] [place] [address] [place] [address] Coordinator, [facility] [address] [place] [address] 10/29/2023 2:30 PM EDT Imaging Radiology [facility] [address] [place] [address] 10/29/2023 3:00 PM EDT Office Visit Pulmonary Medicine, [facility] [address] [place] [address] Ej Noble MD [address] [place] [address] 10/31/2023 11:10 AM EDT Office Visit [facility] [address] [place] [phone] Buster Jessica MD [address] [place] [address] 11/01/2023 1:30 PM EDT Telemedicine [facility] [place] [address] [place] [address] Grisel Richter CRNP [address] [place] [address] Clary Eastman, Community Health Information Security Risk Analyst [address] [place] [address] 11/21/2023 10:55 AM EDT Hospital Encounter [facility], Operating Room [facility] [address] [place] [phone] Freeman Beaulieu, [address] [place] [phone] 11/21/2023 10:55 AM EDT - 11/21/2023 11:20 AM EDT Surgery [facility], Operating Room [facility] [address] [place] [phone] Freeman Beaulieu, DO [address] [place] [address] INJECTION SACROILIAC JOINT 11/22/2023 10:00 AM EDT Home Visit [facility] [place] [address] [place] [address] Lisa Tenorio RN [address] [place] [address] 01/15/2024 10:40 AM EDT Office Visit [facility] [address] [place] [phone] Clair Quarles, DO [address] [place] [address] 04/22/2024 9:30 AM EDT Cardiac Studies Cardiology, [facility] [address] [place] [address] [place], [facility] [address] [place] [address] 05/19/2024 9:30 AM EDT Appointment Radiology, [address] [address] Scheduled Procedures Name Priority Associated [...] exists DISCUSS TOBACCO CESSATION (REFER TO SMARTSET #3851) 06/02/2023 06/02/2022, 07/21/2020 Depression, Most Recent Score [...] 09/10/2008 LUNG CANCER SCREENING - USE SMARTSET 07225 Completed 08/22/2022, 05/22/2022, 02/21/2021, Additional history exists [...] this encounter Medical Devices Implanted Type Area Cold Roll Inspector Device Identifier Shelf Expiration Date Model / Serial / Lot 32mm X 109mm, Zenith Fenestrated Aaa Endovascular Proximal Body Graft, Two Proximal Internal Stent Implanted:Qty: 1 on 04/15/2018 by Evens Hoyt MD at OR [facility] N/A: Aorta [employer] 03/20/2021 ZFEN-P-2- [id number] / / [id number] Stent Graft [id number] - [id number] - [id number] Implanted:Qty: 1 on 04/15/2018 by Evens Hoyt MD at OR [facility] Right: Renal Artery GETINGE : MAQUET 11/30/2020 12357 / [id number] / [id number] Stent Graft [id number] - [id number] - [id number] Implanted:Qty: 1 on 04/15/2018 by Evens Hoyt MD at OR [facility] Right: Renal Artery GETINGE : HELIOQUET 11/30/2020 [id number] / [id number] / [id number] 28mm X 76mm Distal, 12mm Ipsilateral Leg, Zenith Fenestrated Aaa Endovascular Distal Bifurcated Body Graft Implanted:Qty: 1 on 04/15/2018 by Evens Hoyt MD at OR [facility] N/A: Aorta [employer] 03/20/2021 ZFEN-D-12 -28-76-C / / [id number] Graft Iliac Leg Spirlz 37g44rs - [id number] Implanted:Qty: 1 on 04/15/2018 by Evens Hoyt MD at OR [facility] Left: Iliac [employer] 09/14/2020 [id number] / / [id number] Graft Iliac Leg Spirlz [id number] - [id number] Implanted:Qty: 1 on 04/15/2018 by Evens Hoyt MD at OR [facility] Right: Iliac [employer] 11/09/2020 [id number] / / [id number] Transfixation Pin 6mm 294.950 - [id number] Implanted:Qty: 1 on 11/14/2019 by Mayank Friedman MD at OR [facility] Right: Ankle SYNTHES 294.950 / / Description:transfixation pi n Screw Schanz [id number] - [id number] Implanted:Qty: 2 on 11/14/2019 by Mayank Friedman MD at OR [facility] Right: Leg Lower SYNTHES 294.786SH A / / Description:self drilling sh antz screws 5.0mm x 200mm Esthela Trauma 2.7 Lock Screw 16mm Implanted:Qty: 2 on 11/27/2019 by Donavan Ramirez Jr., MD at OR [facility] Right: Ankle ESTHELA : TRAUMA [id number] / / Description:hardware set Esthela Trauma 2.7 Lock Screw 14mm Implanted:Qty: 1 on 11/27/2019 by Donavan Ramirez Jr., MD at OR [facility] Right: Ankle ESTHELA : TRAUMA [id number] / / Atlas Trauma 3.5 Screw 14mm Implanted:Qty: 1 on 11/27/2019 by Donavan Ramirez Jr., MD at OR [facility] Right: Ankle ESTHELA : TRAUMA [id number] / / Description:hardware set Esthela Trauma 3.5 Screw 18mm Implanted:Qty: 1 on 11/27/2019 by Donavan Ramirez Jr., MD at OR [facility] Right: Ankle ESTHELA : TRAUMA [id number] / / Description:hardware set Atlas 3.5 Lockscrew 16mm Implanted:Qty: 1 on 11/27/2019 by Donavan Ramirez Jr., MD at OR [facility] Right: Ankle [id number] / / Atlas 2.0 Plate Implanted:Qty: 1 on 11/27/2019 by Donavan Ramirez Jr., MD at OR [facility] Right: Ankle [id number] / / Atlas 2.0 Lock Screw Implanted:Qty: 2 on 11/27/2019 by Donavan Ramirez Jr., MD at OR [facility] Right: Ankle [id number] / / Atlas 2.0 Lock Screw Implanted:Qty: 1 on 11/27/2019 by Donavan Ramirez Jr., MD at OR [facility] Right: Ankle [id number] / / Atlas 2.0 Lock Screw Implanted:Qty: 1 on 11/27/2019 by Donavan Ramirez Jr., MD at OR [facility] Right: Ankle [id number] / / Plate Fib 5h [id number] - [id number] Implanted:Qty: 1 on 11/27/2019 by Donavan Ramirez Jr., MD at OR [facility] Right: Ankle ESTHELA : TRAUMA 40 / / Description:hardware set documented as of this encounter Visit Diagnoses Diagnosis Depression, major- Primary Major depressive disorder, single episode, unspecified Inflammation of sacroiliac joint (HCC) Sacroiliitis, not [...] the patient have Health Care Power of Supervising Producer? No Full Code 02/17/2019 12:06 PM 02/18/2019 1:09 PM This order reflects the patients wishes and were consensually agreed upon. Question Answer Comments Discussion of Advance Directives occurred with: Not Discussed Does the patient have a Living Will? No Does the patient have Health Care Power of Supervising Producer? No Full Code 04/15/2018 12:43 PM 04/16/2018 2:43 PM This order reflects the patients wishes and were consensually agreed upon. Care Teams After School Program Assistant Relationship Specialty Start Date End Date Buster Jessica MD [address] [place] [id number] PCP - General Family Medicine 09/11/22 documented as of this encounter"
--- OUTSIDE RECORDS SUMMARY | 2023-12-11 18:52 | External Medical Summary | Summary of Care ---
Author Name Unknown Organization [facility] Address [address] [place] [address] Phone [phone] Care Team Providers Care Benefits Manager Name Role Phone Buster Jessica MD Primary Care P [facility] Reason for Visit * Reason Onset Date Comments [facility]: Acute 10/25/2023 Encounter Details Date Type Department Care Team (Late st Contact Info) Description 10/25/2023 Telephone [facility], [facility] [address] [facility] [place] [address] Region, Nurse [address] [address] [facility]: Acute Allergies Active [...] disease) ([facility]),Coronary artery disease involving [place] coronary artery of [place] heart without angina pectoris TAKE ONE TABLET [...] Oral Tablet (Aldactone)Indicatio ns:Coronary artery disease involving [place] coronary artery of [place] heart without angina pectoris,Heart failure, systolic, due to CAD ([facility]),Chronic ischemic heart disease,HTN, goal below 140/90 TAKE ONE TABLET BY MOUTH ONCE DAILY 90 Tablet 3 05/14/2023 Active Losartan Potassium 25 MG Oral Tablet (Cozaar)Indications: PAD (peripheral artery disease) ([facility]),Coronary artery disease involving [place] coronary artery of [place] heart without angina pectoris TAKE ONE TABLET [...] heart disease,Tobacco use disorder,Coronary artery disease involving [place] coronary artery of [place] heart without angina pectoris Inject 140 mg [...] overdose. Seek immediate medical attention. https://www.youtub [email or web address]/watch?v=v26c [email or web address] 1 Each 3 09/15/2023 Active Tamsulosin HCl [...] on package. 21 Each 0 10/25/2023 Active documented as of this [...] emphysema 09/22/2021 Atherosclerotic heart diseas e of [place] coronary artery with other forms of angina [...] untreated, BMI 43.71 kg/m, NECK: 21 inches, Apollo 6/24, sent for bipap titration study 01/11/11 [...] 11/22/2020 10/12/2023 Coronary artery disease invo lving [place] coronary artery of [place] heart without angina pectoris 07/06/2020 10/12/2023 Chronic [...] 09/23/201305/17 Claudication 05/13/2013 10/12/2023 [employer] Other*[id number] 04/23/2012 09/12/2016 Overview: Study Title: Genomic Markers for Patients with Cardiovascular Disease Project # [id number] Tool Grinder Operator Surface: Comfort Aviles MD [phone] Impotence of organic origin 02/16/2011 01/10/2018 Shortness [...] do you have serious difficulty h earing? No-LOWER BRULE 11/14/2019 Are you blind or do you [...] encounter Miscellaneous Notes * Addendum Note - Triny Melendez DO - 10/25/2023 9:10 AM EDTAddended by: TRINY MELENDEZ on: 10/25/2023 09:10 AM Modules accepted: Orders * Telephone Encounter - Triny Melendez DO - 10/25/2023 9:07 AM EDT [facility] Subprogram: Focused Care Management (3-9 months) Recommendations: Sounds compatible with gout (which he does have) I sent in a Medrol dose pack to [facility] - one wasn't selected and this was at the top ofthe list Orders: Plan methylPREDNISolone 4 MG Oral Tablet Therapy Pack (Medrol Dosepack) To Do: Please see below for follow up items to be completed and correspondence: labor representative Pool please work on the following: contact the caller with advice and orders as above andplease let me know if it needs sent to a different pharmacy Triny Melendez DO [facility] - [facility] 10/25/2023 Scheduled appointments in the next 60 days: Future Appointments-next 60 days Date/Time Provider Specialty Dept Phone 10/26[facility]2023 11:30 [facility] [phone] 10/29/2023 2:30 PM (Arrive by 2:15 PM) [facility] Radiology [phone] 10/29/2023 3:00 PM (Arrive by 2:45 PM) Ej Noble MD Pulmonary [phone] 10/31/2023 11:10 AM (Arrive by 10:55 AM) Buster Jessica MD Family Medicine [phone] 11/01/2023 1:30 PM Clary Eastman, Community Health Play Therapist; Grisel Richter CRNP [facility] [phone] 11/22/2023 10:00 AM Lisa Tenorio RN [facility] [phone] 01/15/2024 10:40 AM (Arrive by 10:25 AM) Clair Quarles DO Sleep Disorders [phone] 04/22/2024 9:30 AM (Arrive by 9:15 AM) Fredy Shaw [facility] Cardiology [phone] 05/19/2024 9:[address] [place] [address] Radiology [phone] * Telephone Encounter - Yen Bell RN - 10/25/2023 8:28 AM EDT [employer] [facility] labor representative Acute Call Date: 10/25/2023 Time: 8:28 AM Name: Dago Gunter : 1950 Caller: Dago Relationship to pt- self Chief Complaint Patient presents with [facility]: Acute HPI: Dago Gunter is a 73 year old male that is calling [facility] to report right knee pain with redness and swelling, heat. Nursing Assessment: Patient's chief complaint for this call: Edema Integumentary The pt called into material requirements worker this morning. labor representative called to to follow up and triage. The pt states that he awoke at 1am today with right knee pain and states by 2:30am he was screaming. He had a little bit of pain prior to going to bed but not much. He states that the top, front and upper right knee is red, warm, swollen and painful. He does not report that the sides or the back ofthe knee is affected. He can flex and extend the right knee but it is painful. He did not have an injury. He states 2 weeks ago he had this same thing in his left thumb, last week in the right thumb,and had had in his elbow too. He has been on Allopurinol since PCP prescribed it on 10/19/23. He states that they are not sure if he has gout or not. He denies fever, denies chills. The pt does have a hearing aide appt this morning at 10am, plans to leave the house by 9:30am. He can gingerly walk on his RLE so he plans to try to get to this appt. Pain Has pain Pain level: 6 Location: right knee Quality of Pain: intense Does the pain radiate: No Baseline Assessment Able to performing ADLs at baseline (walking, daily tasks, etc.): No Chief Complaint is related to a chronic condition: Unknown Patient prescribed oxygen? No Patient has been ordered DME equipment (assistive devices, respiratory equipment, etc.): Yes Describe DME devices: has a cane and walker Patient is using DME device as directed: Unknown Medication Reconciliation: (See medication list) Received flu shot this season: Unknown Taking medication as ordered: Yes Medications ordered/taking to treat reason for call: Yes, PRN medication(s) Pt had 2 Keflex left over in his house so he took those today as well as some Tramadol Heart failure symptoms: No COPD exacerbation symptoms: No Reinforcement Education: Continue to take all medications as prescribed Rest and elevate the right leg on a soft surface Safety- use cane or walker for all ambulation Maintain hydration- especially water, adhere to fluid restriction Monitor for worsening symptoms to report: fever, chills, increased redness or warmth or swelling toright knee/leg, increased pain, inability to stand or walk Treatment/Plan: (need to report) Level of call: Acute Appointment scheduled for same day: TBD Provider Name: TBD Treatment plan until appointment: as above Will send to [facility] for recommendations Call back instructions provided to patient. Yen RAVI RN [facility] Intake Triage Coordinator [phone] * Telephone Encounter - Yen Bell RN - 10/25/2023 8:08 AM EDT Received in basket message from material requirements worker. Outgoing call to pt and LMOM requesting return call to [facility], 83# provided. Yen RAVI RN [facility] Intake Triage Coordinator [phone] documented in this encounter Plan of Treatment Upcoming Encounters Date Type Department Care Team (Late st Contact Info) Description 10/26/2023 11:30 AM EDT Scheduled Telephone [facility], [facility] [address] [place] [address] Coordinator, [facility] [address] [place] [address] 10/29/2023 2:30 PM EDT Imaging Radiology [facility] [address] [facility] [place] [address] 10/29/2023 3:00 PM EDT Office Visit Pulmonary Medicine, [facility] [address] [facility] [place] [address] Ej Noble MD [address] [place] [address] 10/31/2023 11:10 AM EDT Office Visit [address] [address] Buster Jessica MD [address] [place] [address] 11/01/2023 1:30 PM EDT Telemedicine [facility], [facility] [address] [place] [address] Grisel Richter CRNP [address] [place] [address] Clary Eastman, Community Health Play Therapist [address] [place] [address] 11/21/2023 10:55 AM EDT Hospital Encounter [facility], Operating Room [facility] [address] [facility] [place] [address] Freeman Beaulieu DO [address] [place] [phone] 11/21/2023 10:55 AM EDT - 11/21/2023 11:20 AM EDT Surgery OR [facility], Operating Room [facility] [address] [place] [phone] Freeman Beaulieu, DO [address] [place] [phone] INJECTION SACROILIAC JOINT 11/22/2023 10:00 AM EDT Home Visit [facility] [place], [facility] [address] [place] [address] Lisa Tenorio RN [address] [place] [address] 01/15/2024 10:40 AM EDT Office Visit Sleep Disorders [facility] [address] [place] [phone] Clair Quarles, DO [address] [place] [address] 04/22/2024 9:30 AM EDT Cardiac Studies Cardiology, [facility] [address] [place] [address] [facility] [address] [place] [address] 05/19/2024 9:30 AM EDT Appointment Radiology, [place] [address] [place] [address] Scheduled Procedures Name Priority Associated [...] exists DISCUSS TOBACCO CESSATION (REFER TO SMARTSET #7275) 06/02/2023 06/02/2022, 07/21/2020 Depression, Most Recent Score [...] 09/10/2008 LUNG CANCER SCREENING - USE SMARTSET 14704 Completed 08/22/2022, 05/22/2022, 02/21/2021, Additional history exists [...] this encounter Medical Devices Implanted Type Area Snack Bar Cook Device Identifier Shelf Expiration Date Model / Serial / Lot 32mm X 109mm, Zenith Fenestrated Aaa Endovascular Proximal Body Graft, Two Proximal Internal Stent Implanted:Qty: 1 on 04/15/2018 by Evens Hoyt MD at OR [facility] N/A: Aorta [employer] 03/20/2021 ZFEN-P-2- [id number] / / [id number] Stent Graft [id number] - [id number] - [id number] Implanted:Qty: 1 on 04/15/2018 by Evens Hoyt MD at OR [facility] Right: Renal Artery GETINGE : GENET 11/30/2020 [id number] / [id number] / [id number] Stent Graft [id number] - [id number] - [id number] Implanted:Qty: 1 on 04/15/2018 by Evens Hoyt MD at OR [facility] Right: Renal Artery GETINGE : HELIOQUET 11/30/2020 34362 / [id number] / [id number] 28mm X 76mm Distal, 12mm Ipsilateral Leg, Zenith Fenestrated Aaa Endovascular Distal Bifurcated Body Graft Implanted:Qty: 1 on 04/15/2018 by Evens Hoyt MD at OR [facility] N/A: Aorta [employer] 03/20/2021 [id number]-D-12 -28-76-C / / [id number] Graft Iliac Leg Spirlz [id number] - [id number] Implanted:Qty: 1 on 04/15/2018 by Evens Hoyt MD at OR [facility] Left: Iliac [employer] 09/14/2020 [id number] / / [id number] Graft Iliac Leg Spirlz [id number] - [id number] Implanted:Qty: 1 on 04/15/2018 by Evens Hoyt MD at OR [facility] Right: Iliac [employer] 11/09/2020 [id number] / / [id number] Transfixation Pin 6mm 294.950 - [id number] Implanted:Qty: 1 on 11/14/2019 by Mayank Friedman MD [facility] Right: Ankle SYNTHES 294.950 / / Description:transfixation pi n Screw Schanz [id number] - [id number] Implanted:Qty: 2 on 11/14/2019 by Mayank Friedman MD [facility] Right: Leg Lower SYNTHES 294.786SH A / / Description:self drilling sh antz screws 5.0mm x 200mm [place] Trauma 2.7 Lock Screw 16mm Implanted:Qty: 2 on 11/27/2019 by Donavan Ramirez Jr., MD at OR [facility] Right: Ankle ESTHELA : TRAUMA [id number] / / Description:hardware set [place] Trauma 2.7 Lock Screw 14mm Implanted:Qty: 1 on 11/27/2019 by Donavan Ramirez Jr., MD at [facility] Right: Ankle ESTHELA : TRAUMA [id number] / / [place] Trauma 3.5 Screw 14mm Implanted:Qty: 1 on 11/27/2019 by Donavan Ramirez Jr., MD at OR [facility] Right: Ankle ESTHELA : TRAUMA [id number] / / Description:hardware set [place] Trauma 3.5 Screw 18mm Implanted:Qty: 1 on 11/27/2019 by Donavan Ramirez Jr., MD at [facility] Right: Ankle ESTHELA : TRAUMA [id number] / / Description:hardware set Esthela 3.5 Lockscrew 16mm Implanted:Qty: 1 on 11/27/2019 by Donavan Ramirez Jr., MD at OR [facility] Right: Ankle [id number] / / [place] 2.0 Plate Implanted:Qty: 1 on 11/27/2019 by Donavan Ramirez Jr., MD at OR [facility] Right: Ankle [id number] / / Esthela 2.0 Lock Screw Implanted:Qty: 2 on 11/27/2019 by Donavan Ramirez Jr., MD at [facility] Right: Ankle [id number] / / Esthela 2.0 Lock Screw Implanted:Qty: 1 on 11/27/2019 by Donavan Ramirez Jr., MD at OR [facility] Right: Ankle [id number] / / [place] 2.0 Lock Screw Implanted:Qty: 1 on 11/27/2019 by Donavan Ramirez Jr., MD at OR [facility] Right: Ankle [id number] / / Plate Fib 5h - - [id number] Implanted:Qty: 1 on 11/27/2019 by Donavan Ramirez Jr., MD at [facility] Right: Ankle ESTHELA : TRAUMA / [...] the patient have Health Care Power of [place]? No Full Code 02/17/2019 12:06 PM 02/18/2019 1:09 PM This order reflects the patients wishes and were consensually agreed upon. Question Answer Comments Discussion of Advance Directives occurred with: Not Discussed Does the patient have a Living Will? No Does the patient have Health Care Power of [place]? No Full Code 04/15/2018 12:43 PM 04/16/2018 2:43 PM This order reflects the patients wishes and were consensually agreed upon. Care Teams Benefits Manager Relationship Specialty Start Date End Date Buster Jessica MD [address] [place] [id number] PCP - General Family Medicine 09/11/22 documented as of this encounter
--- OUTSIDE RECORDS SUMMARY | 2023-12-11 18:52 | External Medical Summary | Summary of Care ---
Author Name Unknown Organization [facility] Address [address] [place] [address] Phone [phone] Care Team Providers Care Grinder Operator External Tool Name Role Phone Buster Jessica MD Primary Care P rovider Reason for Referral * Medication Prior Authorization - Pending Review Specialty Diagnoses / Procedures Referred By Contac t Referred To Contact Diagnoses Chronic bilateral low back pain without sciatica Buster eJssica MD [address] [place] [phone] Referral ID Status Reason Start Date Expiration Date V isits Requested Visits Authorized [id number] Pending Review [id number] Reason for Visit * Reason Onset Date Comments Medication Refill 10/25/2023 Encounter Details Date Type Department Care Team ([facility] Contact Info) Description 10/25/2023 Telephone Family Practice [facility] [address] [place] [address] Buster Jessica MD [address] [place] [phone] Medication Refill Allergies Active Allergy Reactions [...] s:Heart failure, systolic, due to CAD ([facility]) Take 1 tablet by [...] ReleaseIndications: HTN, goal below 140/90,Paroxysmal atrial fibrillation ([facility]),LBBB (left bundle branch block) [...] Tablet (pLAVix)Indications :PAD (peripheral artery disease) ([facility]),Coronary artery disease involving [place] coronary artery of [place] heart without angina pectoris TAKE ONE TABLET BY MOUTH ONCE DAILY 90 Tablet 3 03/13/2023 Active Albuterol Sulfate (2.5 MG/3ML) 0.083% Inhalation Nebulization Solution (Proventil)Indicati ons:COPD, group D, by GOLD 2017 classification ([facility]) Inhale 1 Vial via nebulizer every 4 hours as needed for Wheezing. 75 mL 1 04/23/2023 Active Famotidine 20 MG Oral Tablet (Pepcid) TAKE 1 TABLET BY MOUTH TWICE DAILY (MORNING AND AT BEDTIME) 180 Tablet 3 04/30/2023 Active Spironolactone 25 MG Oral Tablet (Aldactone)Indicati ons:Coronary artery disease involving [place] coronary artery of [place] heart without angina pectoris,Heart failure, systolic, due to CAD ([facility]),Chronic ischemic heart disease,HTN, goal below 140/90 TAKE ONE TABLET BY MOUTH ONCE DAILY 90 Tablet 3 05/14/2023 Active Losartan Potassium 25 MG Oral Tablet (Cozaar)Indications :PAD (peripheral artery disease) ([facility]),Coronary artery disease involving [place] coronary artery of [place] heart without angina pectoris [...] apnea,Heart failure, systolic, due to CAD ([facility]),Dyslipidemia, goal LDL below 70,Chronic ischemic heart disease,Tobacco use disorder,Coronary artery disease involving [place] coronary artery of [place] heart without angina pectoris Inject 140 mg (1 pen) under the skin every 14 days. 6 mL 3 07/02/2023 Active Metoprolol Succinate ER 50 MG Oral Tablet Extended Release 24 Hour (Toprol XL)Indications:Pers istent atrial fibrillation ([facility]),Acute on chronic systolic (congestive) heart failure ([facility]) One tablet by mouth daily at bedtime, this is in addition to the previous prescription for 100 milligrams daily in the morning. 90 Tablet 3 08/23/2023 Active Digoxin 125 MCG Oral Tablet (Lanoxin) Take 1 Tablet by mouth in the morning. 90 Tablet 3 08/23/2023 Active Benzonatate 100 MG Oral CapsuleIndications: COPD, group D, by GOLD 2017 classification ([facility]) Take 1 Capsule by mouth 3 times a day as needed for Cough. 30 Capsule 3 08/29/2023 Active ARIPiprazole 2 MG Oral Tablet (Abilify)Indication s:Moderate episode of recurrent major depressive disorder ([facility]) Take 1 Tablet by mouth in the morning. 30 Tablet 1 09/06/2023 Active Fluticasone-Salmete rol 250-50 MCG/ACT Inhalation Aerosol Powder Breath Activated (Wixela Inhub)Indications:C OPD, group D, by GOLD 2017 classification ([facility]) Inhale 1 Puff by mouth in the morning and 1 Puff before bedtime. 60 Each 12 09/06/2023 Active Naloxone HCl 4 MG/0.1ML Nasal Liquid (Narcan Nasal) Administer 1 spray into 1 nostril for suspected opioid overdose. Seek immediate medical attention. [email or web address] 1 Each 3 09/15/2023 Active Tamsulosin HCl [...] emphysema 09/22/2021 Atherosclerotic heart diseas e of [place] coronary artery with other [...] untreated, BMI 43.71 kg/m, NECK: 21 inches, Amelia 6/24, sent for bipap titration study 01/11/11 [...] 10/12/2023 Coronary artery disease invo lving [place] coronary artery of [place] heart without angina pectoris [...] 09/23/201305/17 Claudication 05/13/2013 10/12/2023 [employer] Other*[id number] 04/23/2012 09/12/2016 Overview: Study Title: Genomic Markers for Patients with Cardiovascular Disease Project # [id number] Air Traffic Control Specialist: Comfort Aviles MD [phone] Impotence of organic origin 02/16/2011 01/10/2018 Shortness [...] do you have serious difficulty h earing? No[place] 11/14/2019 Are you blind or do [...] 10/25/2023 7:54 PM EDT Received communication from [facility] regarding patient complaining of pain and requesting prescription for pain medication. Oxycodone 10 mg electronically prescribed with instructions. documented in this encounter Plan of Treatment Upcoming Encounters Date Type Department Care Team (Late st Contact Info) Description 10/26/2023 11:30 AM EDT Scheduled Telephone [facility] [address] [place] [address] Coordinator, [facility] [address] [place] [address] 10/27/2023 9:30 AM EDT Scheduled Telephone [facility] [address] [place] [address] Region, Nurse [facility] [address] [place] [address] 10/29/2023 2:30 PM EDT Imaging Radiology [address], [address] [place] [address] 10/29/2023 3:00 PM EDT Office Visit Pulmonary Medicine, [facility] [address] [place] [address] Ej Noble MD [address] [place] [address] 10/31/2023 11:10 AM EDT Office Visit [facility] [address] [place] [phone] Buster Jessica MD [address] [place] [address] 11/01/2023 1:30 PM EDT Telemedicine [facility] [place] [address] [place] [address] Grisel Richter CRNP [address] [place] [address] Clary Eastman, Community Health Tower Technician [address] [place] [address] 11/21/2023 10:55 AM EDT Hospital Encounter [facility], Operating [facility] [address] [place] [phone] Freeman Beaulieu, DO [address] [place] [phone] 11/21/2023 10:55 AM EDT - 11/21/2023 11:20 AM EDT Surgery [facility], Operating Room [facility] [address] [place] [phone] Freeman Beaulieu, DO [address] [place] [phone] INJECTION SACROILIAC JOINT 11/22/2023 10:00 AM EDT Home Visit [facility] [place] [address] [place] [address] Lisa Tenorio RN [address] [place] [address] 01/15/2024 10:40 AM EDT Office Visit [facility] [address] [place] [address] Clair Quarles DO [address] [facility] [place] [address] 04/22/2024 9:30 AM EDT Cardiac Studies Cardiology, [facility] [address] [facility] [place] [address] [facility] [address] [place] [address] 05/19/2024 9:30 AM EDT Appointment Radiology, [address] [address] Scheduled Procedures Name Priority Associated [...] exists DISCUSS TOBACCO CESSATION (REFER TO SMARTSET #8151) 06/02/2023 06/02/2022, 07/21/2020 Depression, Most Recent Score [...] 09/10/2008 LUNG CANCER SCREENING - USE SMARTSET 63656 Completed 08/22/2022, 05/22/2022, 02/21/2021, Additional history exists [...] this encounter Medical Devices Implanted Type Area Pourer Metal Device Identifier Shelf Expiration Date Model / Serial / Lot 32mm X 109mm, Zenith Fenestrated Aaa Endovascular Proximal Body Graft, Two Proximal Internal Stent Implanted:Qty: 1 on 04/15/2018 by Evens Hoyt MD at OR [facility] N/A: Aorta [employer] 03/20/2021 ZFEN-P-2- [id number] / / [id number] Stent Graft [id number] - [id number] - [id number] Implanted:Qty: 1 on 04/15/2018 by Evens Hoyt MD at OR [facility] Right: Renal Artery GETINGE : JULIANNE 11/30/2020 57008 / [id number] / [id number] Stent Graft [id number] - [id number] - [id number] Implanted:Qty: 1 on 04/15/2018 by Evens Hoyt MD at OR [facility] Right: Renal Artery GETINGE : GENET 11/30/2020 61050 / [id number] / [id number] 28mm X 76mm Distal, 12mm Ipsilateral Leg, Zenith Fenestrated Aaa Endovascular Distal Bifurcated Body Graft Implanted:Qty: 1 on 04/15/2018 by Evens Hoyt MD at OR [facility] N/A: Aorta [employer] 03/20/2021 [id number]-D-12 -28-76-C / / [id number] Graft Iliac Leg Spirlz 26q52zl - [id number] Implanted:Qty: 1 on 04/15/2018 by Evens Hoyt MD at OR [facility] Left: Iliac [employer] 09/14/2020 [id number] / / [id number] Graft Iliac Leg Spirlz 10k80jp - [id number] Implanted:Qty: 1 on 04/15/2018 by Evens Hoyt MD at OR [facility] Right: Iliac [employer] 11/09/2020 [id number] / / [id number] Transfixation Pin 6mm 294.950 - [id number] Implanted:Qty: 1 on 11/14/2019 by Mayank Friedman MD at OR [facility] Right: Ankle SYNTHES 294.950 / / Description:transfixation pi n Screw Schanz 5.5obp307st - [id number] Implanted:Qty: 2 on 11/14/2019 by Mayank Friedman MD at OR [facility] Right: Leg Lower SYNTHES 294.786SH A / / Description:self drilling sh antz screws 5.0mm x 200mm Esthela Trauma 2.7 Lock Screw 16mm Implanted:Qty: 2 on 11/27/2019 by Donavan Ramirez Jr., MD at OR [facility] Right: Ankle ESTHELA : TRAUMA [id number] / / Description:hardware set Esthela Trauma 2.7 Lock Screw 14mm Implanted:Qty: 1 on 11/27/2019 by Donavan Ramirez Jr., MD at OR [facility] Right: Ankle ESTHELA : TRAUMA [id number] / / Esthela Trauma 3.5 Screw 14mm Implanted:Qty: 1 on 11/27/2019 by Donavan Ramirez Jr., MD at OR [facility] Right: Ankle ESTHELA : TRAUMA [id number] / / Description:hardware set Esthela Trauma 3.5 Screw 18mm Implanted:Qty: 1 on 11/27/2019 by Donavan Ramirez Jr., MD at OR [facility] Right: Ankle ESTHELA : TRAUMA [id number] / / Description:hardware set [place] 3.5 Lockscrew 16mm Implanted:Qty: 1 on 11/27/2019 by Donavan Ramirez Jr., MD at OR [facility] Right: Ankle [id number] / / Esthela 2.0 Plate Implanted:Qty: 1 on 11/27/2019 by Donavan Ramirez Jr., MD at OR [facility] Right: Ankle [id number] / / Esthela 2.0 Lock Screw Implanted:Qty: 2 on 11/27/2019 by Donavan Ramirez Jr., MD at [facility] Right: Ankle 196540 / / Esthela 2.0 Lock Screw Implanted:Qty: 1 on 11/27/2019 by Donavan Ramirez Jr., MD at [facility] Right: Ankle [id number] / / [place] 2.0 Lock Screw Implanted:Qty: 1 on 11/27/2019 by Donavan Ramirez Jr., MD at OR [facility] Right: Ankle 135799 / / Plate Fib 5h - [id number] Implanted:Qty: 1 on 11/27/2019 by Donavan Ramirez [...] the patient have Health Care Power of Liquid Compounder? No Full Code 02/17/2019 12:06 PM 02/18/2019 1:09 PM This order reflects the patients wishes and were consensually agreed upon. Question Answer Comments Discussion of Advance Directives occurred with: Not Discussed Does the patient have a Living Will? No Does the patient have Health Care Power of Liquid Compounder? No Full Code 04/15/2018 12:43 PM 04/16/2018 2:43 PM This order reflects the patients wishes and were consensually agreed upon. Care Teams Grinder Operator External Tool Relationship Specialty Start Date End Date Buster Jessica MD [address] [place] [phone] PCP - General Family Medicine 09/11/22 documented as of this encounter
--- OUTSIDE RECORDS SUMMARY | 2023-12-11 18:52 | External Medical Summary | Summary of Care ---
Author Name Unknown Organization [facility] Address [address] [place] [address] Phone [phone] Care Team Providers Care Watch Technician Name Role Phone Buster Jessica MD Primary Care P [facility] Reason for Visit * Reason Onset Date Comments [facility]: Acute 10/25/2023 Encounter Details Date Type Department Care Team (Late st Contact Info) Description 10/25/2023 Telephone [facility], [facility] [address] [facility] [place] [address] Region, Nurse [address] [address] [facility]: Acute Allergies [...] due to CAD ([facility]) Take 1 tablet by mouth [...] goal below 140/90,Paroxysmal atrial fibrillation ([facility]),LBBB (left bundle branch block) TAKE [...] (pLAVix)Indications: PAD (peripheral artery disease) ([facility]),Coronary artery disease involving makah coronary artery of makah heart without angina pectoris TAKE ONE TABLET [...] Oral Tablet (Aldactone)Indicatio ns:Coronary artery disease involving makah coronary artery of makah heart without angina pectoris,Heart failure, systolic, due to CAD ([facility]),Chronic ischemic heart disease,HTN, goal below 140/90 TAKE ONE TABLET BY MOUTH ONCE DAILY 90 Tablet 3 05/14/2023 Active Losartan Potassium 25 MG Oral Tablet (Cozaar)Indications: PAD (peripheral artery disease) ([facility]),Coronary artery disease involving makah coronary artery of makah heart without angina pectoris TAKE ONE TABLET [...] due to CAD ([facility]),Dyslipidemia, goal LDL below 70,Chronic ischemic heart disease,Tobacco use disorder,Coronary artery disease involving makah coronary artery of makah heart without angina pectoris Inject 140 mg (1 pen) under the skin every 14 days. 6 mL 3 07/02/2023 Active Metoprolol Succinate ER 50 MG Oral Tablet Extended Release 24 Hour (Toprol XL)Indications:Persi stent atrial fibrillation ([facility]),Acute on chronic systolic (congestive) heart failure ([facility]) One tablet by mouth daily [...] 2017 classification ([facility]) Take 1 Capsule by mouth 3 times a day as needed for Cough. 30 Capsule 3 08/29/2023 Active ARIPiprazole 2 MG Oral Tablet (Abilify)Indications :Moderate episode of recurrent major depressive disorder ([facility]) Take 1 Tablet by mouth [...] overdose. Seek immediate medical attention. [email or web address]?v=[email or web address] 1 Each 3 09/15/2023 Active Tamsulosin HCl [...] emphysema 09/22/2021 Atherosclerotic heart diseas e of makah coronary artery with other forms of angina [...] untreated, BMI 43.71 kg/m, NECK: 21 inches, [place] 6/24, sent for bipap titration study 01/11/11 case per [facility] completed ICD-10 update of inactive term BMI [...] 11/22/2020 10/12/2023 Coronary artery disease invo lving makah coronary artery of makah heart without angina pectoris 07/06/2020 10/12/2023 Chronic [...] 09/23/201305/17 Claudication 05/13/2013 10/12/2023 [employer] Other*[id number] 04/23/2012 09/12/2016 Overview: Study Title: Genomic Markers for Patients with Cardiovascular Disease Project # [id number] Vb Net Programmer: Comfort Aviles MD [phone] Impotence of organic origin 02/16/2011 01/10/2018 Shortness [...] do you have serious difficulty h earing? 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 Nursing Assessment: Patient's chief complaint for this call: Edema Integumentary The pt called into trial manager this morning. tank truck engine mechanic called to to follow up and triage. [...] until appointment: as above [place] [facility] [place] Call back instructions provided to patient. Yen RAVI RN [facility] Intake Triage Coordinator [phone] * Telephone Encounter - Yen Bell RN - 10/25/2023 8:08 AM EDT Received in basket message from trial manager. Outgoing call to pt and LMOM requesting return call to [facility], [phone]# provided. Yen RAVI RN [facility] Intake Triage Coordinator [phone] documented in this encounter Plan of Treatment Upcoming Encounters Date Type Department Care Team ([facility] st Contact Info) Description 10/29/2023 2:30 PM EDT Imaging Radiology [facility] [address] [facility] [place] [address] 10/29/2023 3:00 PM EDT Office Visit Pulmonary Medicine, [facility] [address] [facility] [place] [address] Ej Noble MD [address] [place] [address] 10/31/2023 11:10 AM EDT Office Visit [address] [phone] Buster Jessica MD [address] [place] [address] 11/01/2023 1:30 PM EDT Telemedicine [facility], [facility] [address] [place] [address] Grisel Richter CRNP [address] [place] [address] Clary Eastman, Community Health Director Of Patient Care [address] [place] [address] 11/21/2023 10:55 AM EDT Hospital Encounter [facility], Operating Room [facility] [address] [place] [phone] Freeman Beaulieu, [address] [place] [address] 11/21/2023 10:55 AM EDT - 11/21/2023 11:20 AM EDT Surgery [facility], Operating Room [facility] [address] [place] [phone] Freeman Beaulieu, DO [address] [place] [address] INJECTION SACROILIAC JOINT 11/22/2023 10:00 AM EDT Home Visit [facility], [facility] [address] [place] [address] Lisa Tenorio RN [address] [place] [address] 01/15/2024 10:40 AM EDT Office Visit Sleep Disorders Ctr [facility] [address] [place] [phone] Clair Quarles, DO [address] [place] [address] 04/22/2024 9:30 AM EDT Cardiac Studies Cardiology, [facility] [address] [place] [address] [place], [facility] [address] [place] [address] 05/19/2024 9:30 AM EDT Appointment Radiology, [id number] [place] [address] Scheduled Procedures Name Priority Associated [...] exists DISCUSS TOBACCO CESSATION (REFER TO SMARTSET #3474) 06/02/2023 06/02/2022, 07/21/2020 Depression, Most Recent Score [...] 09/10/2008 LUNG CANCER SCREENING - USE SMARTSET 80452 Completed 08/22/2022, 05/22/2022, 02/21/2021, Additional history exists [...] this encounter Medical Devices Implanted Type Area Component Assembler Device Identifier Shelf Expiration Date Model / Serial / Lot 32mm X 109mm, Zenith Fenestrated Aaa Endovascular Proximal Body Graft, Two Proximal Internal Stent Implanted:Qty: 1 on 04/15/2018 [place] Evens Hoty [place] [facility] [place]A: Aorta [facility] 03/20/2021 LISA-P-2- 32-109-R / / [id number] Stent Graft [id number] - [id number] - [id number] Implanted:Qty: 1 on 04/15/2018 by Evens Hoyt [place] [facility] [place] Right: Renal Artery GETINGE : MAQUET 11/30/2020 [id number] / [id number] / [id number] Stent Graft [id number] - [id number] - [id number] Implanted:Qty: 1 on 04/15/2018 by Evens Hoyt MD [place] [facility] [place]: Renal Artery GETINGE : MAQUET 11/30/2020 13493 / [id number] / [id number] 28mm X 76mm Distal, 12mm Ipsilateral Leg, Zenith Fenestrated Aaa Endovascular Distal Bifurcated Body Graft Implanted:Qty: 1 on 04/15/2018 by Evens Hoyt MD [place] [facility] [place]/A: Aorta [employer] 03/20/2021 ZFKEDAR-D-12 -28-76-C / / [id number] Graft Iliac Leg Spirlz 19w04hz - [id number] Implanted:Qty: 1 on 04/15/2018 by Evens Hoyt MD [place] [facility] [place] Left: Iliac [employer] 09/14/2020 [id number] / / [id number] Graft Iliac Leg Spirlz 32b14rx - [id number] Implanted:Qty: 1 on 04/15/2018 by Evens Hoyt MD [place] [facility] [place] Right: Iliac [employer] 11/09/2020 [id number] / / [id number] Transfixation Pin 6mm 294.950 - [id number] Implanted:Qty: 1 on 11/14/2019 by Mayank Friedman MD at OR [facility] Right: Ankle SYNTHES 294.950 / / Description:transfixation pi n Screw Schanz 5.1oez637ub - [id number] Implanted:Qty: 2 on 11/14/2019 by Mayank Friedman MD at OR [facility] Right: Leg Lower SYNTHES 294.786SH A / / Description:self drilling sh antz screws 5.0mm x 200mm [employer] Trauma 2.7 Lock Screw 16mm Implanted:Qty: 2 on 11/27/2019 by Donavan Ramirez Jr., [place] [facility] [place]: Ankle ESTHELA : TRAUMA [id number] / / Description:hardware set [employer] Trauma 2.7 Lock Screw 14mm Implanted:Qty: 1 on 11/27/2019 by Donavan Ramirez Jr., [place] [facility] [place]: Ankle ESTHELA : TRAUMA [id number] / / Esthela Trauma 3.5 Screw 14mm Implanted:Qty: 1 on 11/27/2019 by Donavan Ramirez Jr., [place] [facility] [place]: Ankle ESTHELA : TRAUMA [id number] / / Description:hardware set [employer] Trauma 3.5 Screw 18mm Implanted:Qty: 1 on 11/27/2019 by Donavan Ramirez Jr., [place] [facility] [place]: Ankle ESTHELA : TRAUMA [id number] / / Description:hardware set [employer] 3.5 Lockscrew 16mm Implanted:Qty: 1 on 11/27/2019 by Donavan Ramirez Jr., [place] [facility] [place]: Ankle [id number] / / Esthela 2.0 Plate Implanted:Qty: 1 on 11/27/2019 by Donavan Ramirez Jr., MD [place] [facility] [place]: Ankle [id number] / / Esthela 2.0 Lock Screw Implanted:Qty: 2 on 11/27/2019 by Donavan Ramirez Jr., MD [place] [facility] [place]: Ankle [id number] / / Esthela 2.0 Lock Screw Implanted:Qty: 1 on 11/27/2019 by Donavan Ramirez Jr., MD [place] [facility] [place]: Ankle [id number] / / Esthela 2.0 Lock Screw Implanted:Qty: 1 on 11/27/2019 by Donavan Ramirez Jr., MD [place] [facility] [place]: Ankle [id number] / / Plate Fib 5h - [id number] Implanted:Qty: 1 on 11/27/2019 by Donavan Ramirez Jr., [place] [facility] [place]: Ankle [...] patient have Health Care Power of Director Of Mechanical Engineering? No Full Code 02/17/2019 12:06 PM 02/18/2019 1:09 PM This order reflects the patients wishes and were consensually agreed upon. Question Answer Comments Discussion of Advance Directives occurred with: Not Discussed Does the patient have a Living Will? No Does the patient have Health Care Power of Director Of Mechanical Engineering? No Full Code 04/15/2018 12:43 PM 04/16/2018 2:43 PM This order reflects the patients wishes and were consensually agreed upon. Care Teams Watch Technician Relationship Specialty Start Date End Date Aracely, Buster Jason, [place] [address] PCP - General Family Medicine 09/11/22 documented as of this encounter
--- OUTSIDE RECORDS SUMMARY | 2023-12-11 18:52 | External Medical Summary | Summary of Care ---
Author Name Unknown Organization [facility] Address [address] [place] [address] Phone [phone] Care Team Providers Care Program Counselor Name Role Phone Buster Jessica MD Primary Care P [facility] Reason for Visit * Reason Onset Date Comments [facility]: Acute 10/25/2023 Encounter Details Date Type Department Care Team (Late st Contact Info) Description 10/25/2023 Telephone [facility], [facility] Region [address] [facility] [place] [address] Region, Nurse [address] [address] [facility]: Acute Allergies [...] :Heart failure, systolic, due to CAD ([facility] [...] ReleaseIndications:H TN, goal below 140/90,Paroxysmal atrial fibrillation ([facility] [...] Tablet (pLAVix)Indications: PAD (peripheral artery disease) ([facility]),Coronary artery disease involving lone pine coronary artery of lone pine heart without angina pectoris TAKE ONE TABLET [...] Oral Tablet (Aldactone)Indicatio ns:Coronary artery disease involving lone pine coronary artery of lone pine heart without angina pectoris,Heart failure, systolic, due to CAD ([facility]),Chronic ischemic heart disease,HTN, goal below 140/90 TAKE ONE TABLET BY MOUTH ONCE DAILY 90 Tablet 3 05/14/2023 Active Losartan Potassium 25 MG Oral Tablet (Cozaar)Indications: PAD (peripheral artery disease) ([facility]),Coronary artery disease involving lone pine coronary artery of lone pine heart without angina pectoris TAKE ONE TABLET [...] heart disease,Tobacco use disorder,Coronary artery disease involving lone pine coronary artery of lone pine heart without angina pectoris Inject 140 mg (1 pen) under the skin every 14 days. 6 mL 3 07/02/2023 Active Metoprolol Succinate ER 50 MG Oral Tablet Extended Release 24 Hour (Toprol XL)Indications:Persi stent atrial fibrillation ([facility]),Acute on [...] :Moderate episode of recurrent major depressive disorder (FORMERLY [...] overdose. Seek immediate medical attention. [email or web address]?v=[email or web address] 1 Each 3 09/15/2023 Active Tamsulosin HCl [...] emphysema 09/22/2021 Atherosclerotic heart diseas e of lone pine coronary artery with other forms of angina [...] untreated, BMI 43.71 kg/m, NECK: 21 inches, [place] 6/24, sent for bipap titration study 01/11/11 [...] 11/22/2020 10/12/2023 Coronary artery disease invo lving lone pine coronary artery of lone pine heart without angina pectoris 07/06/2020 10/12/2023 Chronic [...] 09/23/201305/17 Claudication 05/13/2013 10/12/2023 [employer] Other*[id number] 04/23/2012 09/12/2016 Overview: Study Title: Genomic Markers for Patients with Cardiovascular Disease Project # [id number] [employer]iaison [employer] Special Staff: Comfort Aviles MD [phone] Impotence of organic origin 02/16/2011 01/10/2018 Shortness [...] do you have serious difficulty h earing? No-RESIGHINI 11/14/2019 Are you blind or do you [...] Encounter - Yen Bell RN - 10/25/2023 9:29 AM EDT Received message with orders from Dr Melendez. Outgoing call to pt and left detailed message on machine re: rx ordered. Outgoing call to the house phone number and spoke with the pt's and notified her of the order for the medrol dose pack. She verbalized understanding of same and will tell the pt who is taking a nap. Scheduled 24/ 48 hr f/u calls. Yen RAVI, RN [facility] Intake Triage Coordinator [phone] * Addendum Note - Triny Melendez DO - 10/25/2023 9:10 AM EDTAddended by: TRINY MELENDEZ on: 10/25/2023 09:10 AM Modules accepted: Orders * Telephone Encounter - Triny Melendez DO - 10/25/2023 9:07 AM EDT [facility] [place] [facility] Gonsalo Oswald Subprogram: Focused Care Management (3-9 months) Recommendations: Sounds compatible with gout (which he does have) I sent in a Medrol dose pack to [facility] - one wasn't selected and this was at the top ofthe list Orders: Plan methylPREDNISolone 4 MG Oral Tablet Therapy Pack (Medrol Dosepack) To Do: Please see below for follow up items to be completed and correspondence: booster pump oiler Pool please work on the following: contact the caller with advice and orders as above andplease let me know if it needs sent to a different pharmacy Triny Melendez DO [facility] 10/25/2023 Scheduled appointments in the next 60 days: Future Appointments-next 60 days Date/Time Provider Specialty Dept Phone 10/26/2023 11:30 AM Coordinator [facility] [phone] 10/29/2023 2:30 PM (Arrive by 2:15 PM) [facility] Radiology [phone] 10/29/2023 3:00 PM (Arrive by 2:45 PM) Ej Noble MD Pulmonary [phone] 10/31/2023 11:10 AM (Arrive by 10:55 AM) Buster Jessica MD Family Medicine [phone] 11/01/2023 1:30 PM Clary Eastman, [facility] Health Community Service Coordinator; Grisel Richter CRNP [facility] [phone] 11/22/2023 10:00 AM Lisa Tenorio RN [facility] [phone] 01/15/2024 10:40 AM (Arrive by 10:25 AM) Clair Quarles DO Sleep Disorders [phone] 04/22/2024 9:30 AM (Arrive by 9:15 AM) [facility] Cardiology [phone] 05/19/2024 9:30 AM [facility] Radiology [phone] * Telephone Encounter - Yen Bell RN - 10/25/2023 8:28 AM EDT [facility] booster pump oiler Acute Call Date: 10/25/2023 Time: 8:28 AM Name: Dago Gunter : 1950 Caller: Dago Relationship to pt- self Chief Complaint Patient presents with [facility]: Acute HPI: Dago Gunter is a 73 year old male that is calling [facility] to report right knee pain with redness and swelling, heat. Nursing Assessment: Patient's chief complaint for this call: Edema Integumentary The pt called into [facility] this morning. booster pump oiler called to to follow up and triage. [...] until appointment: as above Will send to [facility] for recommendations Call back instructions provided to patient. Yen RAVI, RN [facility] Intake Triage Coordinator [phone] * Telephone Encounter - Yen Bell RN - 10/25/2023 8:08 AM EDT Received in basket message from [facility] [employer]. Outgoing call to pt and LMOM requesting return call to [facility], [phone]# provided. Yen Bell BSN, RN [facility] Intake Triage Coordinator [phone] documented in this encounter Plan of Treatment Upcoming Encounters Date Type Department Care Team (Late st Contact Info) Description 10/26/2023 11:30 AM EDT Scheduled Telephone [facility], [place] [address] [address] Coordinator, [facility] [address] [place] [address] 10/27/2023 9:30 AM EDT Scheduled Telephone [facility], [facility] [address] [place] [address] Region, Nurse [facility] [address] [facility] [place] [address] 10/29/2023 2:30 PM EDT Imaging Radiology [facility] 1st [facility] [address] [facility] [place] [address] 10/29/2023 3:00 PM EDT Office Visit Pulmonary Medicine, [address] [place] [address] Ej Noble MD [address] [place] [address] 10/31/2023 11:10 AM EDT [address] [address] Buster Jessica MD [address] [place] [address] 11/01/2023 1:30 PM EDT Telemedicine [facility], [facility] [address] [place] [address] Grisel Richter CRNP [address] [place] [address] Clary Eastman, Community Health Community Service Coordinator [address] [place] [address] 11/21/2023 10:55 AM EDT Hospital Encounter [facility], Operating Room [facility] [address] [place] [phone] Freeman Beaulieu, DO [address] [place] [address] 11/21/2023 10:55 AM EDT - 11/21/2023 11:20 AM EDT Surgery OR [facility], Operating Room [facility] [address] [place] [phone] Freeman Beaulieu, DO [address] [place] [address] INJECTION SACROILIAC JOINT 11/22/2023 10:00 AM EDT Home Visit [facility], [facility] [address] [place] [address] Lisa Tenorio RN [address] [place] [address] 01/15/2024 10:40 AM EDT Office Visit Sleep Disorders Ctr [facility] [address] [place] [phone] Clair Quarles, DO [address] [place] [address] 04/22/2024 9:30 AM EDT Cardiac Studies Cardiology, [facility] [address] [place] [address] [place], Pacer Clinic [facility] [address] [place] [address] 05/19/2024 9:30 AM EDT Appointment Radiology, [address] [place] [address] [place] [address] Scheduled Procedures Name Priority Associated [...] exists DISCUSS TOBACCO CESSATION (REFER TO SMARTSET #5517) 06/02/2023 06/02/2022, 07/21/2020 Depression, Most Recent Score [...] 09/10/2008 LUNG CANCER SCREENING - USE SMARTSET 94296 Completed 08/22/2022, 05/22/2022, 02/21/2021, Additional history exists [...] encounter Medical Devices Implanted Type Area Sheet Manager Device Identifier Shelf Expiration Date Model / Serial / Lot 32mm X 109mm, Zenith Fenestrated Aaa Endovascular Proximal Body Graft, Two Proximal Internal Stent Implanted:Qty: 1 on 04/15/2018 by Evens Hoyt MD at [place] [facility] N/A: Aorta [employer] 03/20/2021 ZFKEDAR-P-2- 32-109-R / / [id number] Stent Graft [id number] - [id number] - [id number] Implanted:Qty: 1 on 04/15/2018 by Evens Hoyt MD at OR [facility] Right: Renal Artery GETINGE : MAQUET 11/30/2020 75083 / [id number] / [id number] Stent Graft [id number] - [id number] - [id number] Implanted:Qty: 1 on 04/15/2018 by Evens Hoyt MD at OR [facility] Right: Renal Artery GETINGE : MAQUET 11/30/2020 26480 / [id number] / [id number] 28mm X 76mm Distal, 12mm Ipsilateral Leg, Zenith Fenestrated Aaa Endovascular Distal Bifurcated Body Graft Implanted:Qty: 1 on 04/15/2018 by Evens Hoyt MD at OR [facility] N/A: Aorta [employer] 03/20/2021 ZFKEDAR-D-12 -28-76-C / / [id number] Graft Iliac Leg Spirlz 90u18kd - [id number] Implanted:Qty: 1 on 04/15/2018 by Evens Hoyt MD at OR [facility] Left: Iliac [employer] 09/14/2020 [id number] / / [id number] Graft Iliac Leg Spirlz 02d02sl - [id number] Implanted:Qty: 1 on 04/15/2018 by Evens Hoyt MD at OR [facility] Right: Iliac [employer] 11/09/2020 [id number] / / [id number] Transfixation Pin 6mm 294.950 - [id number] Implanted:Qty: 1 on 11/14/2019 by Mayank Friedman MD at OR [facility] Right: Ankle SYNTHES 294.950 / / Description:transfixation pi n Screw Schanz 5.5teg266mv - [id number] Implanted:Qty: 2 on 11/14/2019 by Mayank Friedman MD at OR [facility] Right: Leg Lower SYNTHES 294.786SH A / / Description:self drilling sh antz screws 5.0mm x 200mm Esthela Trauma 2.7 Lock Screw 16mm Implanted:Qty: 2 on 11/27/2019 by Donavan Ramirez Jr., MD at [place] [facility] Right: Ankle ESTHELA : TRAUMA [id number] / / Description:hardware set Grenola Trauma 2.7 Lock Screw 14mm Implanted:Qty: 1 on 11/27/2019 by Donavan Ramirez Jr., MD at [place] [facility] Right: Ankle ESTHELA : TRAUMA [id number] / / Grenola Trauma 3.5 Screw 14mm Implanted:Qty: 1 on 11/27/2019 by Donavan Ramirez Jr., MD at OR [facility] Right: Ankle ESTHELA : TRAUMA [id number] / / Description:hardware set Esthela Trauma 3.5 Screw 18mm Implanted:Qty: 1 on 11/27/2019 by Donavan Ramirez Jr., MD at [place] [facility] Right: Ankle ESTHELA : TRAUMA [id number] / / Description:hardware set Grenola 3.5 Lockscrew 16mm Implanted:Qty: 1 on 11/27/2019 by Donavan Ramirez Jr., MD at [place] [facility] Right: Ankle [id number] / / Esthela 2.0 Plate Implanted:Qty: 1 on 11/27/2019 by Donavan Ramirez Jr., MD at [place] [facility] Right: Ankle [id number] / / Grenola 2.0 Lock Screw Implanted:Qty: 2 on 11/27/2019 by Donavan Ramirez Jr., MD at [facility] Right: Ankle [id number] / / Esthela 2.0 Lock Screw Implanted:Qty: 1 on 11/27/2019 by Donavan Ramirez Jr., MD at [facility] Right: Ankle [id number] / / Esthela 2.0 Lock Screw Implanted:Qty: 1 on 11/27/2019 by Donavan Ramirez Jr., MD at [place] [facility] Right: Ankle [id number] / / Plate Fib 5h - [id number] Implanted:Qty: 1 on 11/27/2019 by Donavan Ramirez Jr., MD at [place] [facility] Right: Ankle ESTHELA : TRAUMA / / [...] the patient have Health Care Power of Software Integrator? No Full Code 02/17/2019 12:06 PM 02/18/2019 1:09 PM This order reflects the patients wishes and were consensually agreed upon. Question Answer Comments Discussion of Advance Directives occurred with: Not Discussed Does the patient have a Living Will? No Does the patient have Health Care Power of Software Integrator? No Full Code 04/15/2018 12:43 PM 04/16/2018 2:43 PM This order reflects the patients wishes and were consensually agreed upon. Care Teams Program Counselor Relationship Specialty Start Date End Date Buster Jessica MD [address] [place] [address] PCP - General Family Medicine 09/11/22 documented as of this encounter
--- OUTSIDE RECORDS SUMMARY | 2023-12-11 18:52 | External Medical Summary | Summary of Care ---
Author Name Unknown Organization [facility] Address [address] [place] [address] Phone [phone] Care Team Providers Care Drill Press Operator Numerical Control Name Role Phone Buster Jessica MD Primary Care P [facility] Reason for Visit * Reason Comments [facility]: Enrollment Encounter Details Date Type Department Care Team (Late st Contact Info) Description 10/24/2023 12:30 PM EDT Home Visit [facility] [place] [address] [place] [address] Lisa Tenorio RN [address] [place] [address] Depression, major* Allergies Active Allergy Reactions Criticality [...] (Demadex)Indications :Heart failure, systolic, due to CAD ([facility]) Take 1 tablet by mouth every [...] ReleaseIndications:H TN, goal below 140/90,Paroxysmal atrial fibrillation ([facility]),LBBB (left bundle branch block) TAKE 2 TABLETS BY MOUTH ONCE DAILY IN THE MORNING AND ONE TAB IN THE EVENING 270 Tablet 3 02/07/2023 Active Metoprolol Succinate ER 100 MG Oral Tablet Extended Release 24 Hour (toPROL XL) TAKE ONE TABLET BY MOUTH ONCE DAILY 90 Tablet 3 03/08/2023 Active Clopidogrel Bisulfate 75 MG Oral Tablet (pLAVix)Indications: PAD (peripheral artery disease) ([facility]),Coronary artery disease involving paskenta coronary artery of paskenta heart without angina pectoris TAKE ONE TABLET BY MOUTH ONCE DAILY 90 Tablet 3 03/13/2023 Active Albuterol Sulfate (2.5 MG/3ML) 0.083% Inhalation Nebulization Solution (Proventil)Indicatio ns:COPD, group D, by GOLD 2017 classification ([facility]) Inhale 1 Vial via nebulizer every 4 hours as needed for Wheezing. 75 mL 1 04/23/2023 Active Famotidine 20 MG Oral Tablet (Pepcid) TAKE 1 TABLET BY MOUTH TWICE DAILY (MORNING AND AT BEDTIME) 180 Tablet 3 04/30/2023 Active Spironolactone 25 MG Oral Tablet (Aldactone)Indicatio ns:Coronary artery disease involving paskenta coronary artery of paskenta heart without angina pectoris,Heart failure, systolic, due to CAD ([facility]),Chronic ischemic heart disease,HTN, goal below 140/90 TAKE ONE TABLET BY MOUTH ONCE DAILY 90 Tablet 3 05/14/2023 Active Losartan Potassium 25 MG Oral Tablet (Cozaar)Indications: PAD (peripheral artery disease) ([facility]),Coronary artery disease involving paskenta coronary artery of paskenta heart without angina pectoris TAKE ONE TABLET [...] apnea,Heart failure, systolic, due to CAD ([facility]),Dyslipidemia, goal LDL below 70,Chronic ischemic heart disease,Tobacco use disorder,Coronary artery disease involving paskenta coronary artery of paskenta heart without angina pectoris Inject 140 mg (1 pen) under the skin every 14 days. 6 mL 3 07/02/2023 Active Metoprolol Succinate ER 50 MG Oral Tablet Extended Release 24 Hour (Toprol XL)Indications:Persi stent atrial fibrillation ([facility]),Acute on chronic systolic (congestive) heart failure ([facility]) One tablet by mouth daily at bedtime, this is in addition to the previous prescription for 100 milligrams daily in the morning. 90 Tablet 3 08/23/2023 Active Digoxin 125 MCG Oral Tablet (Lanoxin) Take 1 Tablet by mouth in the morning. 90 Tablet 3 08/23/2023 Active Benzonatate 100 MG Oral CapsuleIndications:C OPD, group D, by GOLD 2017 classification ([facility]) Take 1 Capsule by mouth 3 times a day as needed for Cough. 30 Capsule 3 08/29/2023 Active ARIPiprazole 2 MG Oral Tablet (Abilify)Indications :Moderate episode of recurrent major depressive disorder ([facility]) Take 1 Tablet by mouth in the morning. 30 Tablet 1 09/06/2023 Active Fluticasone-Salmeter ol 250-50 MCG/ACT Inhalation Aerosol Powder Breath Activated (Wixela Inhub)Indications:CO PD, group D, by GOLD 2017 classification ([facility]) Inhale 1 Puff by mouth in the morning and 1 Puff before bedtime. 60 Each 12 09/06/2023 Active Naloxone HCl 4 MG/0.1ML Nasal Liquid (Narcan Nasal) Administer 1 spray into 1 nostril for suspected opioid overdose. Seek immediate medical attention. https://www.Divided.com/watch?v=v26c [email or web address] 1 Each 3 09/15/2023 Active Tamsulosin HCl [...] emphysema 09/22/2021 Atherosclerotic heart diseas e of paskenta coronary artery with other forms of angina [...] untreated, BMI 43.71 kg/m, NECK: 21 inches, Muir 6/24, sent for bipap titration study 01/11/11 case per [facility] completed ICD-10 update of [...] 11/22/2020 10/12/2023 Coronary artery disease invo lving paskenta coronary artery of paskenta heart without angina pectoris 07/06/2020 10/12/2023 Chronic [...] 09/23/201305/17 Claudication 05/13/2013 10/12/2023 [employer] Other*[id number] 04/23/2012 09/12/2016 Overview: Study Title: Genomic Markers for Patients with Cardiovascular Disease Project # [id number] Door Technician: Comfort Aviles MD [phone] Impotence of organic origin 02/16/2011 01/10/2018 Shortness [...] do you have serious difficulty h earing? No-SNOQUALMIE 11/14/2019 Are you blind or do you [...] 10/24/2023 12:30 PM EDT [facility] Human Service Technician Monthly Visit Date: 10/24/2023 Time: 1:00 PM Name: Dago Gunter : 1950 Current Concerns: 73 yo male being seen for [facility] enrollment visit. PMHX: thoracic aortic aneurysm, PVD, [...] Pt agreeable for visit. Physical address - [address] [place] [address] in [address] between [employer] Use either entrance on porch (side of building you pull in at) [facility] / bar / restaurant. Family member directed nurse into the bar area where pt is at. Pt sitting at bar watching TV. Bar currently closed. Family is present in kitchen &spouse came into bar area during visit. Currently living at [employer] [place] until home is remodeled. Pt SNOQUALMIE & has a hard time understanding staff [...] 10.18.22 & sleep med referral. BIPAP - [facility] is his DME provider. [...] years Independent Has good family support [employer]s [employer] [place] [place] / bar / restaurant Has a [place] house in [place] Currently living at [facility] until home is remodeled. [facility] Completed this Visit: Yes. [facility]: Reason Completed: Enrollment [facility] Interventions: DME ordered: has cane & walker [...] high priority to schedule provider enrollment visit. Depressed no interest in things [facility] referral placed - pt agreeable Discussed goals of [facility] program- -focus on disease management and collaboration w/ all providers -Interdisciplinary [facility] team approach -use of [facility] 24/ intake line for acute issues/concerns -monthly and [...] get tight Patient Needs to Remember: Call [facility] or PCP with red flags or urgent medical needs Referrals Needed: SW - depression - loss of interest in daily things Supervisor Steno Pool Follow Up: Is there cellular connectivity/connectivity in the home? Yes Does the patient have internet in the home? Yes Patient encouraged to call the intake phone number for all urgent but not emergent issues. Is the patient new to [facility] within the last 30 days? [...] Description 10/26/2023 11:30 AM EDT Scheduled Telephone [facility] [place], [place] [address] [place] [address] Coordinator, [facility] [address] [place] [address] 10/29/2023 2:30 PM EDT Imaging Radiology [facility] [address] [place] [address] 10/29/2023 3:00 PM EDT Office Visit Pulmonary Medicine, [facility] [address] [place] [address] Ej Noble [facility] [address] [facility] [address] 10/31/2023 11:10 AM EDT Office Visit [facility] [address] [place] [address] Buster Jessica MD [address] [place] [address] 11/01/2023 1:30 PM EDT Telemedicine [facility] [place] [place] [address] [place] [address] Grisel Richter CRNP [address] [place] [address] Clary Eastman, [facility] Financial Accounting Analyst [address] [place] [address] 11/21/2023 10:55 AM EDT Hospital Encounter [facility], Operating Room [facility] [address] [place] [phone] Freeman Beaulieu, DO [address] [place] [address] 11/21/2023 10:55 AM EDT - 11/21/2023 11:20 AM EDT Surgery OR [facility], Operating Room [facility] [address] [place] [phone] Freeman Beaulieu, [address] [place] [phone] INJECTION SACROILIAC JOINT 11/22/2023 10:00 AM EDT Home Visit [facility] [place] [place] [address] [place] [address] Lisa Tenorio RN [address] [place] [address] 01/15/2024 10:40 AM EDT Office Visit [facility] [address] [facility] [place] [phone] Clair Quarles DO [address] [place] [address] 04/22/2024 9:30 AM EDT Cardiac Studies Cardiology, [facility] [address] [facility] [place] [address] [facility] [address] [place] [address] 05/19/2024 9:30 AM EDT Appointment Radiology, [address] [address] Scheduled Procedures Name Priority Associated [...] exists DISCUSS TOBACCO CESSATION (REFER TO SMARTSET #9001) 06/02/2023 06/02/2022, 07/21/2020 Depression, Most Recent Score [...] 09/10/2008 LUNG CANCER SCREENING - USE SMARTSET 15126 Completed 08/22/2022, 05/22/2022, 02/21/2021, Additional history exists [...] this encounter Medical Devices Implanted Type Area Material Handling Equipment [employer]ore Device Identifier Shelf Expiration Date Model / Serial / Lot 32mm X 109mm, Zenith Fenestrated Aaa Endovascular Proximal Body Graft, Two Proximal Internal Stent Implanted:Qty: 1 on 04/15/2018 by Evens Hoyt MD at OR [facility] N/A: Aorta [employer] 03/20/2021 ZFEN-P-2- 32-109-R / / [id number] Stent Graft [id number] - [id number] - [id number] Implanted:Qty: 1 on 04/15/2018 by Evens Hoyt MD at OR [facility] Right: Renal Artery GETINGE : MAQUET 11/30/2020 [id number] / [id number] / [id number] Stent Graft [id number] - [id number] - [id number] Implanted:Qty: 1 on 04/15/2018 by Evens Hoyt MD at OR [facility] Right: Renal Artery GETINGE : MAQUET 11/30/2020 [id number] / [id number] / [id number] 28mm X 76mm Distal, 12mm Ipsilateral Leg, Zenith Fenestrated Aaa Endovascular Distal Bifurcated Body Graft Implanted:Qty: 1 on 04/15/2018 by Evens Hoyt MD at OR [facility] N/A: Aorta [employer] 03/20/2021 ZFEN-D-12 -28-76-C / / [id number] Graft Iliac Leg Spirlz [id number] - [id number] Implanted:Qty: 1 on 04/15/2018 by Evens Hoyt MD at OR [facility] Left: Iliac [employer] 09/14/2020 [id number] / / [id number] Graft Iliac Leg Spirlz [id number] - [id number] Implanted:Qty: 1 on 04/15/2018 by Evens Hoyt MD at OR [facility] Right: Iliac [employer] 11/09/2020 [id number] / / [id number] Transfixation Pin 6mm 294.950 - [id number] Implanted:Qty: 1 on 11/14/2019 by Mayank Friedman MD at OR [facility] Right: Ankle SYNTHES 294.950 / / Description:transfixation pi n Screw Schanz [id number] - [id number] Implanted:Qty: 2 on 11/14/2019 by Mayank Friedman MD at OR [facility] Right: Leg Lower SYNTHES 294.786SH A / / Description:self drilling sh antz screws 5.0mm x 200mm Esthela Trauma 2.7 Lock Screw 16mm Implanted:Qty: 2 on 11/27/2019 by Donavan Ramirez Jr., MD at OR [facility] Right: Ankle ESTHELA : TRAUMA [id number] / / Description:hardware set Milmay Trauma 2.7 Lock Screw 14mm Implanted:Qty: 1 on 11/27/2019 by Donavan Ramirez Jr., MD at OR [facility] Right: Ankle ESTHELA : TRAUMA [id number] / / Esthela Trauma 3.5 Screw 14mm Implanted:Qty: 1 on 11/27/2019 by Donavan Ramirez Jr., MD at OR [facility] Right: Ankle ESTHELA : TRAUMA [id number] / / Description:hardware set Milmay Trauma 3.5 Screw 18mm Implanted:Qty: 1 on 11/27/2019 by Donavan Ramirez Jr., MD at OR [facility] Right: Ankle ESTHELA : TRAUMA [id number] / / Description:hardware set Milmay 3.5 Lockscrew 16mm Implanted:Qty: 1 on 11/27/2019 by Donavan Ramirez Jr., MD at OR [facility] Right: Ankle [id number] / / Esthela 2.0 Plate Implanted:Qty: 1 on 11/27/2019 by Donavan Ramirez Jr., MD at OR [facility] Right: Ankle [id number] / / Milmay 2.0 Lock Screw Implanted:Qty: 2 on 11/27/2019 by Donavan Ramirez Jr., MD at OR [facility] Right: Ankle [id number] / / Esthela 2.0 Lock Screw Implanted:Qty: 1 on 11/27/2019 by Donavan Ramirez Jr., MD at OR [facility] Right: Ankle [id number] / / Milmay 2.0 Lock Screw Implanted:Qty: 1 on 11/27/2019 by Donavan Ramirez Jr., MD at OR [facility] Right: Ankle [id number] / / Plate Fib 5h [id number] - [id number] Implanted:Qty: 1 on 11/27/2019 by Donavan Ramirez [...] the patient have Health Care Power of Pattern Molder? No Full Code 02/17/2019 12:06 PM 02/18/2019 1:09 PM This order reflects the patients wishes and were consensually agreed upon. Question Answer Comments Discussion of Advance Directives occurred with: Not Discussed Does the patient have a Living Will? No Does the patient have Health Care Power of Pattern Molder? No Full Code 04/15/2018 12:43 PM 04/16/2018 2:43 PM This order reflects the patients wishes and were consensually agreed upon. Care Teams Drill Press Operator Numerical Control Relationship Specialty Start Date End Date Buster Jessica MD [address] [place] [address] PCP - General Family Medicine 09/11/22 documented as of this encounter"
--- OUTSIDE RECORDS SUMMARY | 2023-12-11 18:53 | External Medical Summary | Summary of Care ---
Author Name Unknown Organization [facility] Address [address] [place] [address] Phone [phone] Care Team Providers Care Redipper Name Role Phone Buster Jessica MD Primary Care P rovider Reason for Visit * Reason Onset Date Comments Medication Problem 10/13/2023 Encounter Details Date Type Department Care Team ([facility] st Contact Info) Description 10/13/[address] [phone] Buster Jessica MD [address] [place] [phone] Medication Problem Allergies Active Allergy Reactions Criticality Noted Date Comments Atorvastatin Muscle pain,Unknown 01/18/2015 Medication intolerance, not an allergy Sacubitril-Valsartan Other (Please comment) 09/17/2020 Throat swelled Sacubitril High 07/20/2023 Other Reaction(s): THROAT SWELLING Simvastatin Low 06/23/2022 Other reaction(s): MUSCLE ACHES Valsartan High 07/20/2023 Other Reaction(s): THROAT SWELLING documented as of this encounter (statuses as of 10/19/2023) Medications Medication Sig Dispensed Refills Start Date End Date Status Torsemide 100 MG Oral Tablet (Demadex)Indication s:Heart failure, systolic, due to CAD ([facility]) Take 1 tablet by mouth every [...] ReleaseIndications: HTN, goal below 140/90,Paroxysmal atrial fibrillation ([facility]),LBBB (left bundle branch block) TAKE 2 TABLETS BY MOUTH ONCE DAILY IN THE MORNING AND ONE TAB IN THE EVENING 270 Tablet 3 02/07/2023 Active Metoprolol Succinate ER 100 MG Oral Tablet Extended Release 24 Hour (toPROL XL) TAKE ONE TABLET BY MOUTH ONCE DAILY 90 Tablet 3 03/08/2023 Active Clopidogrel Bisulfate 75 MG Oral Tablet (pLAVix)Indications :PAD (peripheral artery disease) ([facility]),Coronary artery disease involving k[place] coronary artery of [place] heart without angina pectoris TAKE ONE TABLET BY MOUTH ONCE DAILY 90 Tablet 3 03/13/2023 Active Albuterol Sulfate (2.5 MG/3ML) 0.083% Inhalation Nebulization Solution (Proventil)Indicati ons:COPD, group D, by GOLD 2017 classification ([facility]) Inhale 1 Vial via nebulizer every 4 hours as needed for Wheezing. 75 mL 1 04/23/2023 Active Famotidine 20 MG Oral Tablet (Pepcid) TAKE 1 TABLET BY MOUTH TWICE DAILY (MORNING AND AT BEDTIME) 180 Tablet 3 04/30/2023 Active Spironolactone 25 MG Oral Tablet (Aldactone)Indicati ons:Coronary artery disease involving [place] coronary artery of [place] heart without angina pectoris,Heart failure, systolic, due to CAD ([facility]),Chronic ischemic heart disease,HTN, goal below 140/90 TAKE ONE TABLET BY MOUTH ONCE DAILY 90 Tablet 3 05/14/2023 Active Losartan Potassium 25 MG Oral Tablet (Cozaar)Indications :PAD (peripheral artery disease) ([facility]),Coronary artery disease involving k[place] coronary artery of [place] heart without angina pectoris TAKE ONE TABLET BY MOUTH ONCE DAILY 90 Tablet 3 06/04/2023 Active Baclofen 20 MG Oral TabletIndications:C hronic bilateral low back pain without sciatica Take 1 Tablet by mouth 3 times a day as needed for Muscle spasms. 90 Tablet 5 06/06/2023 Active Repatha SureClick 140 MG/ML Subcutaneous Solution Auto-injector (evolocumab)Indicat ions:Obstructive sleep apnea,Heart failure, systolic, due to CAD ([facility]),Dyslipidemia, goal LDL below 70,Chronic ischemic heart disease,Tobacco use disorder,Coronary artery disease involving karl[place] coronary artery of [place] heart without angina pectoris Inject 140 mg (1 pen) under the skin every 14 days. 6 mL 3 07/02/2023 Active Metoprolol Succinate ER 50 MG Oral Tablet Extended Release 24 Hour (Toprol XL)Indications:Pers istent atrial fibrillation ([facility]),Acute on chronic systolic (congestive) heart failure ([facility]) One tablet by mouth daily at bedtime, this is in addition to the previous prescription for 100 milligrams daily in the morning. 90 Tablet 3 08/23/2023 Active Digoxin 125 MCG Oral Tablet (Lanoxin) Take 1 Tablet by mouth in the morning. 90 Tablet 3 08/23/2023 Active Benzonatate 100 MG Oral CapsuleIndications: COPD, group D, by GOLD 2017 classification ([facility]) Take 1 Capsule by mouth 3 times a day as needed for Cough. 30 Capsule 3 08/29/2023 Active ARIPiprazole 2 MG Oral Tablet (Abilify)Indication s:Moderate episode of recurrent major depressive disorder ([facility]) Take 1 Tablet by mouth in the morning. 30 Tablet 1 09/06/2023 Active Fluticasone-Salmete rol 250-50 MCG/ACT Inhalation Aerosol Powder Breath Activated (Wixela Inhub)Indications:C OPD, group D, by GOLD 2017 classification ([facility]) Inhale 1 Puff by mouth in the morning and 1 Puff before bedtime. 60 Each 12 09/06/2023 Active Naloxone HCl 4 MG/0.1ML Nasal Liquid (Narcan Nasal) Administer 1 spray into 1 nostril for suspected opioid overdose. Seek immediate medical attention. [email or web address] - how to [email or web address] [email or web address]/[email or web address]?v=[email or web address] 1 Each 3 09/15/2023 Active Tamsulosin HCl [...] Other (sleep). 30 Tablet 1 10/12/2023 Active metOLazone 2.5 MG Oral Tablet (Zaroxolyn) One tablet by oral route 3 days a week on Sunday, Sunday and for 7 days, take 30 minutes prior to torsemide with extra doses as directed 0 10/12/2023 10/19/19 24 Discontinu ed(Patient preference /discontin uation) oxyCODONE HCl 7.5 MG Oral TabletIndications:C hronic bilateral low back pain without sciatica Take 1 Tablet by mouth every 6 hours as needed for Pain, Severe. 28 Tablet 0 10/12/2023 10/16/19 24 Discontinu ed(Refill) documented as of this encounter (statuses as of 10/19/2023) Active Problems Problem Noted Date Diagnosed Date [...] emphysema 09/22/2021 Atherosclerotic heart diseas e of karluk coronary artery with other forms of angina [...] untreated, BMI 43.71 kg/m, NECK: 21 inches, [place] 6/24, sent for bipap titration study 01/11/11 case per [facility] completed ICD-10 update of inactive term BMI 35-39 ISOLATED (SEE ACTUAL BMI) 01/17/2010 Overview: Per Obesity Protocol, #19 BPH without obstruction/lower urinary tract symp toms 08/19/2009 Dyslipidemia, goal LDL below 70 07/21/2009 Overview: Per Lipid Taxonomy. documented as of this encounter (statuses as of 10/19/2023) Resolved Problems Problem Noted Date Diagnosed Date [...] 11/22/2020 10/12/2023 Coronary artery disease invo lving karluk coronary artery of [place] heart without angina pectoris 07/06/2020 10/12/2023 Chronic [...] 09/23/201305/17 Claudication 05/13/2013 10/12/2023 [employer] Other*[id number] 04/23/2012 09/12/2016 Overview: Study Title: Genomic Markers for Patients with Cardiovascular Disease Project # [id number] Staff Accountant: Comfort Aviles MD [phone] Impotence of organic origin 02/16/2011 01/10/2018 Shortness [...] as of this encounter (statuses as of 10/19/2023) Immunizations Name Administration Dates Next Due COVID-19 [...] do you have serious difficulty h earing? No-FALSE PASS 11/14/2019 Are you blind or do you [...] Telephone Encounter - Ham Mondragon CPhT - 10/19/2023 4:36 PM EDT Patients insurance would like to inform the office that OXAYDO 7.5 MG TABLET is denied because Thismedication is Obsolete. Unable to review.. They will fax this info to the office, [facility]. FYI: I did advise [facility] medication was order as regular Oxycodone 7.5mg Thank you, Oh Mondragon ([facility]) Roof Bolter Helper III [facility] ([facility] (formerly Telepharmacy) 10/19/2023, 4:36 PM * Telephone Encounter - Sarita Huerta LPN - 10/13/2023 12:41 PM EST Prior auth questions answered for Oxycodone rx. CAGE aid may need completed for approval. * Telephone Encounter - Emmy Keys CPhT - 10/13/2023 11:30 AM EST I did verify the name of the medication when [facility] reached out and the caller did verify the name as Oxaydo. Any questions or concerns caller can be reached at [phone]. Thank you, Rehana Keys CPhT Sponge Maker II [facility] ([facility]) (Formerly Telepharmacy) 10/13/2023,11:31 AM * Telephone Encounter - Sarita Huerta LPN - 10/13/2023 10:41 AM EST Do you mean Oxycodone? The Oxycodone was not d/c'd. * Telephone Encounter - Emmy Keys CPhT - 10/13/2023 8:56 AM EST [facility] calling stating they had received a PA for a medication Oxaydo. Caller states they are unable to review the PA as that medication has been discontinued. Please advise. Thank you, Rehana Keys CPhT [employer] [employer] [facility] ([facility] (Formerly Telepharmacy) 10/13/2023,8:56 AM documented in this encounter Plan of Treatment Upcoming Encounters Date Type Department Care Team (Late st Contact Info) Description 10/24/2023 12:30 PM EDT Home Visit [facility] [address] [place] [address] Lisa Tenorio RN [address] [place] [address] 10/29/2023 2:30 PM EDT Imaging Radiology [address] [place] [address] 10/29/2023 3:00 PM EDT Office Visit Pulmonary Medicine, [facility] [address] [place] [address] Ej Noble MD [address] [place] [address] 10/31/2023 11:10 AM EDT Office Visit [address] [phone] Buster Jessica MD [address] [place] [address] 11/01/2023 1:30 PM EDT Telemedicine [facility] [address] [place] [address] Grisel Richter CRNP [address] [place] [address] Clary Eastman, [facility] Sat Math Tutor [address] [place] [address] 11/21/2023 10:55 AM EDT Hospital Encounter [facility], Operating Room [facility] [address] [place] [phone] Freeman Beaulieu, DO [address] [place] [phone] 11/21/2023 10:55 AM EDT - 11/21/2023 11:20 AM EDT Surgery OR [facility], Operating Room [facility] [address] [place] [phone] Freeman Beaulieu, DO [address] [place] [phone] INJECTION SACROILIAC JOINT 01/15/2024 10:40 AM EDT Office Visit Sleep Disorders Ctr [facility] [address] [place] [phone] Clair Quarles, DO [address] [place] [address] 04/22/2024 9:30 AM EDT Cardiac Studies Cardiology, [facility] [address] [place] [address] [facility] [address] [place] [address] 05/19/2024 9:30 AM EDT Appointment Radiology, [address] [phone] Scheduled Procedures Name Priority Associated Diagnoses Date/Ti me INJECTION SACROILIAC JOINT Inflammation of sacroiliac joint (HCC) 11/21/2023 10:55 AM EDT COLONOSCOPY FLEXIBLE PROXIMAL DIAGNOSTIC Recall History of colon polyps Health Maintenance Due Date Last Done Comments *ADVANCE DIRECTIVE NOT ON FILE 05/28/2019 COVID-19 Vaccine (3 - 2022- season) 2023 11/08/2020, 10/08/2020 Influenza Vaccine (FLU shot) (#1) 2023 05/11/2022, 06/09/2021, 04/13/2020, Additional history exists DISCUSS TOBACCO CESSATION (REFER TO SMARTSET #2773) 06/02/2023 06/02/2022, 07/21/2020 Depression, Most Recent Score >= 10 (will fire each visit until score < 10) 08/30/2023 08/29/2023 GFR 10/07/2024 10/08/2023, 09/07, 09/18/2023, Additional history exists O2 ASSESSMENT COMPLETED IN PAST YEAR FOR COPD 10/18/2024 10/19/2023 Albumin/Creatinine Ratio 06/06/2026 06/06/2023 COLONOSCOPY-EVERY 5 YRS AGES 18-100 10/28/2027 10/27/2022, 04/21/2014, 04/21/2014, Additional history exists DTaP,Tdap,and Td Vaccines (3 - Td or Tdap) 04/13/2030 04/13/2020 (Declined), 08/19/2009 Alpha-1 Antitrypsin Completed 02/19/2020 Pneumococcal Vaccine: 65+ Years Completed 05/27/2020, 12/02/2018, 09/10/2008 LUNG CANCER SCREENING - USE SMARTSET 10987 Completed 08/22/2022, 05/22/2022, 02/21/2021, Additional history exists [...] this encounter Medical Devices Implanted Type Area Marketing Automation Analyst Device Identifier Shelf Expiration Date Model / Serial / Lot 32mm X 109mm, Zenith Fenestrated Aaa Endovascular Proximal Body Graft, Two Proximal Internal Stent Implanted:Qty: 1 on 04/15/2018 by Evens Hoyt MD at OR [facility] [place] [facility] N/A: Aorta [employer] 03/20/2021 ZFEN-P-2- 32-109-R / / [id number] Stent Graft [id number] - [id number] - [id number] Implanted:Qty: 1 on 04/15/2018 by Evens Hoyt MD at OR [facility] [place] Right: Renal Artery GETINGE : MAQUET 11/30/2020 73146 / [id number] / [id number] Stent Graft [id number] - [id number] - [id number] Implanted:Qty: 1 on 04/15/2018 by Evens Hoyt MD at OR [facility] [place] Right: Renal Artery GETINGE : MAQUET 11/30/2020 36117 / [id number] / [id number] 28mm X 76mm Distal, 12mm Ipsilateral Leg, Zenith Fenestrated Aaa Endovascular Distal Bifurcated Body Graft Implanted:Qty: 1 on 04/15/2018 by Evens Hoyt MD at OR [facility] [place] N/A: Aorta [employer] 03/20/2021 ZFEN-D-12 -28-76-C / / [id number] Graft Iliac Leg Spirlz [id number] - [id number] Implanted:Qty: 1 on 04/15/2018 by Evens Hoyt MD at OR [facility] [place] Left: Iliac [employer] 09/14/2020 [id number] / / [id number] Graft Iliac Leg Spirlz [id number] - [id number] Implanted:Qty: 1 on 04/15/2018 by Evens Hoyt MD at OR [facility] [place] Right: Iliac [employer] 11/09/2020 [id number] / / [id number] Transfixation Pin 6mm 294.950 - [id number] Implanted:Qty: 1 on 11/14/2019 by Mayank Friedman MD at OR [facility] Right: Ankle SYNTHES 294.950 / / Description:transfixation pi n Screw Schanz 5.3elc102pf - [id number] Implanted:Qty: 2 on 11/14/2019 by Mayank Friedman MD at OR [facility] Right: Leg Lower SYNTHES 294.786SH A / / Description:self drilling sh antz screws 5.0mm x 200mm [place] Trauma 2.7 Lock Screw 16mm Implanted:Qty: 2 on 11/27/2019 by Donavan Ramirez Jr., MD at OR [facility] [place] Right: Ankle ESTHELA : TRAUMA [id number] / / Description:hardware set Esthela Trauma 2.7 Lock Screw 14mm Implanted:Qty: 1 on 11/27/2019 by Donavan Ramirez Jr., MD at OR [facility] [place] Right: Ankle ESTHELA : TRAUMA [id number] / / [employer] Trauma 3.5 Screw 14mm Implanted:Qty: 1 on 11/27/2019 by Donavan Ramirez Jr., MD at OR [facility] [place] Right: Ankle ESTHELA : TRAUMA [id number] / / Description:hardware set Esthela Trauma 3.5 Screw 18mm Implanted:Qty: 1 on 11/27/2019 by Donavan Ramirez Jr., MD at OR [facility] [place] [facility] Right: Ankle ESTHELA : TRAUMA [id number] / / Description:hardware set Esthela 3.5 Lockscrew 16mm Implanted:Qty: 1 on 11/27/2019 by Donavan Ramirez Jr., MD at OR [facility] [place] Right: Ankle [id number] / / [place] 2.0 Plate Implanted:Qty: 1 on 11/27/2019 by Donavan Ramirez Jr., MD at OR [facility] [place] Right: Ankle [id number] / / [place] 2.0 Lock Screw Implanted:Qty: 2 on 11/27/2019 by Donavan Ramirez Jr., MD at OR [facility] [place] Right: Ankle [id number] / / [place] 2.0 Lock Screw Implanted:Qty: 1 on 11/27/2019 by Donavan Ramirez Jr., MD at OR [facility] [place] Right: Ankle [id number] / / [place] 2.0 Lock Screw Implanted:Qty: 1 on 11/27/2019 by Donavan Ramirez Jr., MD at OR [facility] [place] Right: Ankle [id number] / / Plate Fib 5h - [id number] Implanted:Qty: 1 on 11/27/2019 by Donavan Ramirez Jr., MD at OR [facility] [place] Right: Ankle ESTHELA [...] the patient have Health Care Power of Geography Professor? No Full Code 02/17/2019 12:06 PM 02/18/2019 1:09 PM This order reflects the patients wishes and were consensually agreed upon. Question Answer Comments Discussion of Advance Directives occurred with: Not Discussed Does the patient have a Living Will? No Does the patient have Health Care Power of Geography Professor? No Full Code 04/15/2018 12:43 PM 04/16/2018 2:43 PM This order reflects the patients wishes and were consensually agreed upon. Care Teams Redipper Relationship Specialty Start Date End Date Buster Jessica MD [address] [place] [id number] PCP - General Family Medicine 09/11/22 documented as of this encounter
--- OUTSIDE RECORDS SUMMARY | 2023-12-11 18:53 | External Medical Summary | Summary of Care ---
Author Name Unknown Organization [facility] Address [address] [place] [address] Phone [phone] Care Team Providers Care Packaging Clerk Name Role Phone Buster Jessica MD Primary [facility] Reason for Referral * Medication Prior Authorization - Pending Review Specialty Diagnoses / Procedures Referred By Satinder t Referred To Contact Diagnoses Chronic bilateral low back pain without sciatica Buster Jessica MD [address] [phone] Referral ID Status Reason Start Date Expiration Date V isits Requested Visits Authorized [id number] Pending Review 999 999 * Evaluate & Treat - Unlimited Visits (Within 10 days (routine)) - Authorized Specialty Diagnoses / Procedures Referred By Contjose roberto t Referred To Contact Sleep Medicine / Sleep Disorders Diagnoses Obstructive sleep apnea Buster Jessica MD [address] [place] [address] Referral ID Status Reason Start Date Expiration Date Visits Requested Visits Authorized [id number] Authorized Specialty Services Required 10/19/2023 2 2 Question Answer Referral Priority Within 10 days (routine) Where should this appointment be scheduled? [facility] Sleep Apnea Testing and Management Does the patient snore and/or gasp at night or has been told they stop breathing at night? Yes Reason for Visit * Reason Comments Follow Up Encounter Details Date Type Department Care Team ([facility] Contact Info) Description 10/19/2023 2:50 PM EDT Office Visit [address] [phone] Buster Jessica MD [address] [place] [phone] Ischemic cardiomyopathy*; COPD exacerbation (HCC); Tobacco dependence; Obstructive sleep apnea; Chronic bilateral low back pain without sciatica; Acute gout of right hand, unspecified cause Allergies Active Allergy Reactions Criticality Noted Date [...] disease) ([facility]),Coronary artery disease involving washoe coronary artery of [...] Oral Tablet (Aldactone)Indicati ons:Coronary artery disease involving washoe coronary artery of washoe heart without angina pectoris,Heart failure, systolic, due to CAD ([facility]),Chronic ischemic heart disease,HTN, goal below 140/90 TAKE ONE TABLET BY MOUTH ONCE DAILY 90 Tablet 3 05/14/2023 Active Losartan Potassium 25 MG Oral Tablet (Cozaar)Indications :PAD (peripheral artery disease) ([facility]),Coronary artery disease involving washoe coronary artery of [...] overdose. Seek immediate medical attention. [email or web address]?[email or web address] 1 Each 3 09/15/2023 Active Tamsulosin HCl 0.4 MG Oral Capsule (Flomax) TAKE 1 CAPSULE BY MOUTH ONCE DAILY IN THE MORNING 90 Capsule 09/21/2023 Active Desvenlafaxine Succinate ER 100 MG [...] 10/12/2023 Active metOLazone 2.5 MG Oral Tablet (Zaroxolyn)Indicati ons:Ischemic cardiomyopathy Take 1 Tablet by mouth once a week. One tablet by oral route 3 days a week on Sunday, Sunday and for 7 days, take 30 minutes prior to torsemide with extra doses as directed 4 Tablet 5 10/19/2023 Active oxyCODONE HCl 7.5 MG Oral TabletIndications:C hronic bilateral low back pain without sciatica Take 1 Tablet by mouth every 6 hours as needed for Pain, Severe. 28 Tablet 0 10/19/2023 Active Allopurinol 100 MG Oral Tablet (Zyloprim)Indicatio ns:Acute gout of right hand, unspecified cause Take 1 Tablet by mouth in the morning. 30 Tablet 11 10/19/2023 Active metOLazone 2.5 MG Oral Tablet (Zaroxolyn) [...] needed for Pain, Severe. 28 Tablet 0 10/16/2023 10/19/19 24 Discontinu ed(Refill) documented as of this [...] emphysema 09/22/2021 Atherosclerotic heart diseas e of washoe [...] untreated, BMI 43.71 kg/m, NECK: 21 inches, [place] 6/24, sent for bipap titration study 01/11/11 case per [facility] completed ICD-10 update of inactive term BMI [...] 09/23/201305/17 Claudication 05/13/2013 10/12/2023 [employer] Other*[id number] 04/23/2012 09/12/2016 Overview: Study Title: Genomic Markers for Patients with Cardiovascular Disease Project # [id number] Cutter Operator Tile: Comfort Aviles MD [phone] Impotence of organic origin 02/16/2011 01/10/2018 Shortness [...] Sign Reading Time Taken Comments Blood Pressure 108/58 10/19/2023 3:16 PM EDT Pulse 54 10/19/2023 3:16 PM EDT Temperature 35.6 C (96.1 F) 10/19/2023 3:16 PM ED T Respiratory Rate 16 10/19/2023 3:16 PM EDT Oxygen Saturation 94% 10/19/2023 3:16 PM EDT Inhaled Oxygen Concentration - - Weight 118.2 kg (260 lb 9.6 oz) 10/19/2023 3:16 PM EDT Height 177.8 cm (5' 10") 10/19/2023 3:16 PM EDT Body Mass Index 37.39 10/19/2023 3:16 PM EDT documented in this encounter Functional Status Functional Status Response Date of Assess ment Are you deaf or do you have serious difficulty h earing? No-SILETZ TRIBE 11/14/2019 Are you blind or do you [...] Progress Notes * Buster Jessica MD - 10/19/2023 3:32 PM EDT Subjective: Dago Gunter is a 73 year old male. Chief Complaint Patient presents with Follow Up HPI: Sleeping often still off and on. Today he needed a wheelchair to come back to the room. Got very dizzy at the scale. Denies CP, still has WAY Feels "like shit" Needs labs today BIPAP PMH: Patient Active Problem List Diagnosis Code Dyslipidemia, goal LDL below 70 E78.5 BPH without obstruction/lower urinary tract symptoms N40.0 BMI 35-39 ISOLATED (SEE ACTUAL BMI) E66.9 Obstructive sleep apnea G47.33 Hx of nonmelanoma skin cancer Z85.828 H/O dysplastic nevus Z86.018 Thoracic aortic aneurysm without rupture ([facility]) I71.20 Basal cell carcinoma (BCC) of right ala nasi C44.311 Squamous cell carcinoma of ala nasi C44.321 COPD, group D, by GOLD 2017 classification ([facility]) J44.9 Basal cell carcinoma (BCC) of right nasal tip C44.311 Closed fracture of right ankle with routine healing S82.891D PVD (peripheral vascular disease) ([facility]) I73.9 Controlled substance agreement signed Z79.899 LBBB (left bundle branch block) I44.7 Biventricular ICD (implantable cardioverter-defibrillator) in place Z95.810 Tobacco dependence F17.200 Adjustment disorder with anxious mood F43.22 Pulmonary emphysema ([facility]) J43.9 Atherosclerotic heart disease of washoe coronary artery with other forms of angina pectoris ([facility]) I25.118 Moderate episode of recurrent major depressive disorder ([facility]) F33.1 Elevated uric acid in blood E79.0 Right lower lobe pulmonary nodule R91.1 Presence of coronary angioplasty implant and graft Z95.5 Chronic bilateral low back pain without sciatica M54.50, G89.29 Juxtarenal abdominal aortic aneurysm (AAA) without rupture (HCC) I71.42 Other persistent atrial fibrillation (HCC) I48.19 [...] and Sunday afternoon only.) 150 Tablet 3 Eliquis 5 MG Oral Tablet (Apixaban) TAKE 1 TABLET BY MOUTH TWICE DAILY 60 Tablet 11 Vitamin C 1000 MG Oral Tablet Take 1 Tablet by mouth in the morning. Potassium Chloride ER 10 MEQ Oral Tablet Extended Release TAKE 2 TABLETS BY MOUTH ONCE DAILY IN THEMORNING AND ONE TAB IN THE EVENING 270 Tablet 3 Metoprolol Succinate ER 100 MG Oral Tablet Extended Release 24 Hour (toPROL XL) TAKE ONE TABLET BY MOUTH ONCE DAILY 90 Tablet 3 Clopidogrel Bisulfate 75 MG Oral Tablet (pLAVix) TAKE ONE TABLET BY MOUTH ONCE DAILY 90 Tablet 3 Albuterol Sulfate (2.5 MG/3ML) 0.083% Inhalation Nebulization Solution (Proventil) Inhale 1 Vial via nebulizer every 4 hours as needed for Wheezing. 75 mL 1 Famotidine 20 MG Oral Tablet (Pepcid) TAKE [...] mouth in the morning. 30 Tablet 1 Fluticasone-Salmeterol 250-50 MCG/ACT Inhalation Aerosol Powder Breath Activated (Wixela Inhub) Inhale 1 Puff by mouth in the morning and 1 Puff before bedtime. 60 Each 12 Naloxone HCl 4 MG/0.1ML Nasal Liquid (Narcan Nasal) Administer 1 spray into 1 nostril for suspectedopioid overdose. Seek immediate medical attention. [email or web address] 1 Each 3 Tamsulosin HCl 0.4 MG Oral Capsule (Flomax) TAKE 1 CAPSULE BY MOUTH ONCE DAILY IN THE MORNING 90 Capsule 3 Desvenlafaxine Succinate ER 100 MG Oral Tablet Extended Release 24 Hour (Pristiq) Take 1 Tablet by mouth in the morning. 30 Tablet 11 hydrOXYzine HCl 25 MG Oral Tablet Take 0.5 Tablets by mouth at bedtime as needed for Other (sleep).30 Tablet 1 metOLazone 2.5 MG Oral Tablet (Zaroxolyn) Take 1 Tablet by mouth once a week. One tablet by oral route 3 days a week on Sunday, Sunday and for 7 days, take 30 minutes prior to torsemide with extra doses as directed 4 Tablet 5 oxyCODONE HCl 7.5 MG Oral Tablet Take 1 Tablet by mouth every 6 hours as needed for Pain, Severe. 28 Tablet 0 Allopurinol 100 MG Oral Tablet (Zyloprim) Take 1 Tablet by mouth in the morning. 30 Tablet 11 No current facility-administered medications for this visit. [...] performed by Mayank Friedman MD at OR [facility] BIMALLEOLAR ANKLE FX W/ FIXATION Right 11/27/2019 OPEN TREATMENT BIMALLEOLAR ANKLE FRACTURE performed by Donavan Ramirez Jr., MD at [place] [facility] COLONOSCOPY THRU STOMA, W/BIOPSY 03/06/2011 fair prep, polyps x4, path shows adenomatous tissue repeat in 3 years COLONOSCOPY, DIAGNOSTIC (RECTUM) 04/21/2014 hyperplastic polyp, multiple cecal AVM's, repeat 5 yrs/COLONOSCOPY FLEXIBLE PROXIMAL DIAGNOSTIC performed by Jake Montoya MD at ENDOSCOPY [facility] COLONOSCOPY, DIAGNOSTIC (RECTUM) N/A 10/27/2022 [facility], Colonoscopy, multi polyps in cecum, transverse, recto-sigmoid / biopsies benign adenomatous polyp and serrated adenomatous polyps / 3 year recall CORONARY ANGIOGRAPHY W/LEFT HEART CATH Right 02/17/2019 CORONARY ANGIOGRAPHY W/LEFT HEART CATH performed by Winston Mckeon MD at [facility] CORONARY ANGIOGRAPHY W/LEFT HEART CATH Right 10/20/2020 CORONARY ANGIOGRAPHY W/LEFT HEART CATH performed by Winston Mckeon MD at [facility] CORONARY ANGIOGRAPHY W/LEFT HEART CATH Right 10/08/2023 CORONARY ANGIOGRAPHY W/LEFT HEART CATH performed by Thea Wilkes MD at [facility] CORONARY ANGIOGRAPHY W/RIGHT+LEFT CATH 04/23/2012 CORONARY ANGIOGRAPHY W/RIGHT+LEFT CATH performed by Donavan Egan MD at [facility] ENDOVASCULAR REPAIR AORTA/INFRARENAL 2 PROSTHESES N/A 04/15/2018 fenestrated endovascular aortic aneurysm repair, 2 vessel fenestrations (bilateral renal) and SMA scallop performed by Evens Hoyt MD at [facility] INTRAVASCULAR STENT, PERC, FIRST VESSEL OPEN FEMORAL ARTERY EXPOSURE FOR ENDOVASCULAR PROSTHESIS, UNILAT Bilateral 04/15/2018 bilateral femoral artery cutdowns performed by Evens Hoyt MD at [facility] REMOVE BONE FIXATION DEVICE Right 11/27/2019 REMOVAL OF EXTERNAL FIXATION performed by Donavan Ramirez Jr., MD at [facility] SACROILIAC JOINT INJECT W/GUIDANCE 02/14/2023 INJECTION SACROILIAC JOINT performed by Rajinder Corado DO at OR [facility] SACROILIAC JOINT INJECT W/GUIDANCE 07/11/2023 INJECTION SACROILIAC JOINT performed by Rajinder Corado DO at OR [facility] Review of patient's allergies indicates: Allergen Reactions Sacubitril Other Reaction(s): THROAT SWELLING Valsartan Other Reaction(s): THROAT SWELLING Atorvastatin Muscle pain and Unknown Medication intolerance, not an allergy Entresto [Sacubitril-Valsartan] Other (Please comment) Throat swelled Simvastatin Other reaction(s): MUSCLE ACHES Family History Problem Relation Age of Onset Cancer Father throat Cancer Mother basal cell Other (SLEEP) Sister BRIAN Family Status Relation Status Fa at age 67 Mo Sis (Not Specified) Social History Socioeconomic History Marital status: Spouse name: Ganesh Number of children: 2 Years of education: Not on file Highest education level: Not on file Occupational History 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: [employer] 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 Tobacco Use Smoking status: Every Day Current packs/day: 1.00 Average packs/day: 1 pack/day for 52.0 years (52.0 ttl pk-yrs) Types: Cigarettes Smokeless tobacco: Never Tobacco comments: pack per day Vaping Use Vaping Use: Never used Substance and Sexual Activity Alcohol use: Yes Comment: rare Drug use: No Sexual activity: Yes Partners: Female Other Topics Concern Not on file Social History Narrative [employer] 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 Constitutional: General: He is not in acute distress. Appearance: He is obese. He is not ill-appearing or toxic-appearing. HENT: Right Ear: Tympanic membrane normal. Left Ear: Tympanic membrane normal. Nose: No congestion. Eyes: Conjunctiva/sclera: Conjunctivae normal. Cardiovascular: Rate and Rhythm: Normal rate and regular rhythm. Pulmonary: Effort: Pulmonary effort is normal. Breath sounds: Normal breath sounds. Musculoskeletal: Right lower leg: No edema. Left lower leg: No edema. Lymphadenopathy: Cervical: No cervical adenopathy. Neurological: Mental Status: He is alert. ASSESSMENT: Ischemic cardiomyopathy (Primary) - metOLazone 2.5 MG Oral Tablet (Zaroxolyn); Take 1 Tablet by mouth once a week. One tablet by oralroute 3 days a week on Sunday, Sunday and for 7 days, take 30 minutes prior to torsemide with extra doses as directed - RENAL FUNCTION PANEL COPD exacerbation (HCC) Tobacco dependence Obstructive sleep apnea - DURABLE MEDICAL EQUIPMENT - SLEEP MEDICINE REFERRAL OP Chronic bilateral low back pain without sciatica - oxyCODONE HCl 7.5 MG Oral Tablet; Take 1 Tablet by mouth every 6 hours as needed for Pain, Severe. Acute gout of right hand, unspecified cause - Allopurinol 100 MG Oral Tablet (Zyloprim); Take 1 Tablet by mouth in the morning. Has lost 18 pounds. Continue current dose of torsemide 100 mg in the morning daily and 100 mg in the afternoon on Sunday, Sunday and Fridays. He is also on spironolactone 25 mg daily. Continue metolazone 2.5 mg once a week on Mondays. Check labs today. Start allopurinol 100 mg daily. Appropriate medication use and potential medication side effects discussed with patient. New prescription for BiPAP provided today with a prior settings from 2019. Will refer to sleep Medicine for follow-up on sleep apnea and BiPAP use. Patient refuses to try to quit or decrease the amount of tobacco that he uses. Follow Up: Return in about 2 weeks (around 11/02/2023), or if symptoms worsen or fail to improve, for f/u chronic problems, schedule labs before next OV. | For: f/u chronic problems, schedule labs before next OV Buster Anguiano MDThis patient is suspected to have obstructive sleep apnea given snoring,witnessed apneas and significant daytime sleepiness. A sleep study was therefore ordered. We discussed treatment modalities for BRIAN including PAP. documented in this encounter Nursing Notes * Jada Perez LPN - 10/19/2023 3:15 PM EDT The patient has been properly identified by confirmation of name and date of . Chief Complaint Patient presents with Follow Up Pt here for 1 week follow up with . Sleeping often still off and on. Today he needed a wheelchair to come back to the room. Got very dizzy at the scale. documented in this encounter Plan of Treatment Upcoming Encounters Date Type Department Care Team (Late st Contact Info) Description 10/24/2023 12:30 PM EDT Home Visit [facility] [place] [facility] [address] [place] [address] Lisa Tenorio, RN [address] [facility] [place] [address] 10/29/2023 2:30 PM EDT Imaging Radiology [facility] [facility] [address] [facility] [place] [address] 10/29/2023 3:00 PM EDT Office Visit Pulmonary Medicine, [facility] [address] [facility] [place] [address] Ej Noble MD [address] [place] [address] 10/31/2023 11:10 AM EDT Office Visit [address] [phone] Buster Jessica MD [address] [place] [address] 11/01/2023 1:30 PM EDT Telemedicine [facility] [address] [place] [address] Grisel Richter CRNP [address] [place] [address] Clary Eastman, [facility] [employer] [address] [place] [address] 11/21/2023 10:55 AM EDT Hospital Encounter [facility] Operating [facility] [address] [place] [phone] Freeman Beaulieu, DO [address] [place] [phone] 11/21/2023 10:55 AM EDT - 11/21/2023 11:20 AM EDT Surgery [facility], Operating Room [facility] [address] [place] [phone] Freeman Beaulieu, [address] [place] [phone] INJECTION SACROILIAC JOINT 01/15/2024 10:40 AM EDT Office Visit [facility] [address] [place] [phone] Clair Quarles, DO [address] [place] [address] 04/22/2024 9:30 AM EDT Cardiac Studies Cardiology, [facility] [address] [place] [address] [facility] [address] [address] 05/19/2024 9:30 AM EDT [address]ointment [address] [phone] [facility] [phone] Pending Results Name Type Priority Associated Diagnoses Date /Time RENAL FUNCTION PANEL Lab Routine Ischemic cardiomyopathy 10/19/2023 4:01 PM EDT Scheduled Procedures Name Priority Associated Diagnoses Date/Ti me INJECTION SACROILIAC JOINT Inflammation of sacroiliac joint (HCC) 11/21/2023 10:55 AM EDT COLONOSCOPY FLEXIBLE PROXIMAL DIAGNOSTIC Recall History of colon polyps Scheduled Referrals Name Type Priority Associated Diagnoses Orde r Schedule SLEEP MEDICINE REFERRAL OP Referral Within 10 days (routine) Obstructive sleep apnea Ordered: 10/19/2023 Health Maintenance Due Date Last Done Comments [...] 09/10/2008 LUNG CANCER SCREENING - USE SMARTSET 52345 Completed 08/22/2022, 05/22/2022, 02/21/2021, Additional history exists [...] this encounter Medical Devices Implanted Type Area Hog Handler Device Identifier Shelf Expiration Date Model / Serial / Lot 32mm X 109mm, Zenith Fenestrated Aaa Endovascular Proximal Body Graft, Two Proximal Internal Stent Implanted:Qty: 1 on 04/15/2018 by Evens Hoyt MD at [facility] N/A: Aorta [employer] 03/20/2021 [id number]-[id number] / / [id number] Stent Graft [id number] - [id number] - [id number] Implanted:Qty: 1 on 04/15/2018 by Evens Hoyt MD at [facility] Right: Renal Artery GETINGE : MAQUET 11/30/2020 [id number] / [id number] / [id number] Stent Graft [id number] - [id number] - [id number] Implanted:Qty: 1 on 04/15/2018 by Evens Hoyt MD at [facility] Right: Renal Artery GETINGE : MAQUET 11/30/2020 34493 / [id number] / [id number] 28mm X 76mm Distal, 12mm Ipsilateral Leg, Zenith Fenestrated Aaa Endovascular Distal Bifurcated Body Graft Implanted:Qty: 1 on 04/15/2018 by Evens Hoyt MD at [facility] N/A: Aorta [employer] 03/20/2021 [id number]-D-12 -28-76-[id number] / / [id number] Graft Iliac Leg Spirlz [id number] - [id number] Implanted:Qty: 1 on 04/15/2018 by Evens Hoyt MD at [facility] Left: Iliac [employer] 09/14/2020 [id number] / / [id number] Graft Iliac Leg Spirlz 76f39wx - [id number] Implanted:Qty: 1 on 04/15/2018 by Evens Hoyt MD at [facility] Right: Iliac [employer] 11/09/2020 [id number] / / [id number] Transfixation Pin 6mm 294.950 - [id number] Implanted:Qty: 1 on 11/14/2019 by Mayank Friedman MD at OR [facility] Right: Ankle SYNTHES 294.950 / / Description:transfixation pi n Screw Schanz 5.7rsn293vh - [id number] Implanted:Qty: 2 on 11/14/2019 by Mayank Friedman MD at OR [facility] Right: Leg Lower SYNTHES 294.786SH A / / Description:self drilling sh antz screws 5.0mm x 200mm [place] Trauma 2.7 Lock Screw 16mm Implanted:Qty: 2 on 11/27/2019 by Donavan Ramirez Jr., MD at [facility] Right: Ankle ESTHELA : TRAUMA [id number] / / Description:hardware set [place]hel[place] Trauma 2.7 Lock Screw 14mm Implanted:Qty: 1 on 11/27/2019 by Donavan Ramirez Jr., MD at [facility] Right: Ankle ESTHELA : TRAUMA [id number] / / [place] Trauma 3.5 Screw 14mm Implanted:Qty: 1 on 11/27/2019 by Donavan Ramirez Jr., MD at [facility] Right: Ankle ESTHELA : TRAUMA [id number] / / Description:hardware set [place]hela Trauma 3.5 Screw 18mm Implanted:Qty: 1 on 11/27/2019 by Donavan Ramirez Jr., MD at [facility] Right: Ankle ESTHELA : TRAUMA [id number] / / Description:hardware set [place] 3.5 Lockscrew 16mm Implanted:Qty: 1 on 11/27/2019 by Donavan Ramirez Jr., MD at [facility] Right: Ankle [id number] / / Esthela 2.0 Plate Implanted:Qty: 1 on 11/27/2019 by Donavan Ramirez Jr., MD at [facility] Right: Ankle [id number] / / [place] 2.0 Lock Screw Implanted:Qty: 2 on 11/27/2019 by Donavan Ramirez Jr., MD at [facility] Right: Ankle [id number] / / [place] 2.0 Lock Screw Implanted:Qty: 1 on 11/27/2019 by Donavan Ramirez Jr., MD at [facility] Right: Ankle [id number] / / [place] 2.0 Lock Screw Implanted:Qty: 1 on 11/27/2019 by Donavan Ramirez Jr., MD at [facility] Right: Ankle [id number] / / Plate Fib 5h - [id number] Implanted:Qty: 1 on 11/27/2019 by Donavan Ramirez Jr., MD at [facility] Right: Ankle ESTHELA : TRAUMA / / Description:hardware set documented as of this encounter Visit Diagnoses Diagnosis Ischemic cardiomyopathy- Primary Other specified forms of chronic ischemic heart disease COPD exacerbation (HCC) Obstructive chronic bronchitis with exacerbation Tobacco dependence Tobacco use disorder Obstructive sleep apnea Obstructive sleep apnea (adult) (pediatric) Chronic bilateral low back pain without sciatica Acute gout of right hand, unspecified cause Inflammation of sacroiliac joint (HCC) Sacroiliitis, not [...] the patient have Health Care Power of Multiple Pressure Riveter Operator? No Full Code 02/17/2019 12:06 PM 02/18/2019 1:09 PM This order reflects the patients wishes and were consensually agreed upon. Question Answer Comments Discussion of Advance Directives occurred with: Not Discussed Does the patient have a Living Will? No Does the patient have Health Care Power of Multiple Pressure Riveter Operator? No Full Code 04/15/2018 12:43 PM 04/16/2018 2:43 PM This order reflects the patients wishes and were consensually agreed upon. Care Teams Packaging Clerk Relationship Specialty Start Date End Date Buster Jessica MD [address] [place] [address] [phone] PCP - General Family Medicine 09/11/22 documented as of this encounter
--- OUTSIDE RECORDS SUMMARY | 2023-12-11 18:53 | External Medical Summary | Summary of Care ---
Author Name Unknown Organization [facility] Address [address] [place] [address] Phone [phone] Care Team Providers Care Annual Giving Manager Name Role Phone Buster Jessica MD Primary Care [facility] Reason for Visit * Reason Onset Date Comments Medication Problem 10/19/2023 LMOM 10/22 Advice 10/19/2023 Encounter Details Date Type Department Care Team ([facility] Contact Info) Description 10/19/2023 Telephone Family [address] [phone] Buster Jessica MD [address] [place] [address] [phone] Medication Problem (LMOM 10/22); Advice Allergies Active Allergy Reactions Criticality Noted Date Comments Atorvastatin Muscle pain,Unknown 01/18/2015 Medication intolerance, not an allergy Sacubitril-Valsartan Other (Please comment) 09/17/2020 Throat swelled Sacubitril High 07/20/2023 Other Reaction(s): THROAT SWELLING Simvastatin Low 06/23/2022 Other reaction(s): MUSCLE ACHES Valsartan High 07/20/2023 Other Reaction(s): THROAT SWELLING documented as of this encounter (statuses as of 10/24/2023) Medications Medication Sig Dispensed Refills Start Date End Date Status Torsemide 100 MG Oral Tablet (Demadex)Indication s:Heart failure, systolic, due to CAD ([facility]) Take 1 tablet by mouth every [...] ReleaseIndications: HTN, goal below 140/90,Paroxysmal atrial fibrillation ([facility]),LBBB (left bundle branch block) TAKE 2 TABLETS BY MOUTH ONCE DAILY IN THE MORNING AND ONE TAB IN THE EVENING 270 Tablet 3 02/07/2023 Active Metoprolol Succinate ER 100 MG Oral Tablet Extended Release 24 Hour (toPROL XL) TAKE ONE TABLET BY MOUTH ONCE DAILY 90 Tablet 3 03/08/2023 Active Clopidogrel Bisulfate 75 MG Oral Tablet (pLAVix)Indications :PAD (peripheral artery disease) ([facility]),Coronary artery disease involving [place] coronary artery of [place] heart without angina pectoris TAKE ONE TABLET BY MOUTH ONCE DAILY 90 Tablet 3 03/13/2023 Active Albuterol Sulfate (2.5 MG/3ML) 0.083% Inhalation Nebulization Solution (Proventil)Indicati ons:COPD, group D, by GOLD 2017 classification ([facility]) Inhale 1 Vial via nebulizer every 4 hours as needed for Wheezing. 75 mL 1 04/23/2023 Active Famotidine 20 MG Oral Tablet (Pepcid) TAKE 1 TABLET BY MOUTH TWICE DAILY (MORNING AND AT BEDTIME) 180 Tablet 3 04/30/2023 Active Spironolactone 25 MG Oral Tablet (Aldactone)Indicati ons:Coronary artery disease involving [place] coronary artery of [place] heart without angina pectoris,Heart failure, systolic, due to CAD ([facility]),Chronic ischemic heart disease,HTN, goal below 140/90 TAKE ONE TABLET BY MOUTH ONCE DAILY 90 Tablet 3 05/14/2023 Active Losartan Potassium 25 MG Oral Tablet (Cozaar)Indications :PAD (peripheral artery disease) ([facility]),Coronary artery disease involving [place] coronary artery of [place] heart without angina pectoris TAKE ONE [...] apnea,Heart failure, systolic, due to CAD ([facility]),Dyslipidemia, goal LDL below 70,Chronic ischemic heart disease,Tobacco use disorder,Coronary artery disease involving [place] coronary artery of [place] heart without angina pectoris Inject 140 mg (1 pen) under the skin every 14 days. 6 mL 3 07/02/2023 Active Metoprolol Succinate ER 50 MG Oral Tablet Extended Release 24 Hour (Toprol XL)Indications:Pers istent atrial fibrillation ([facility]),Acute on chronic systolic (congestive) heart failure ([facility]) One tablet by mouth daily at bedtime, this is in addition to the previous prescription for 100 milligrams daily in the morning. 90 Tablet 3 08/23/2023 Active Digoxin 125 MCG Oral Tablet (Lanoxin) Take 1 Tablet by mouth in the morning. 90 Tablet 3 08/23/2023 Active Benzonatate 100 MG Oral CapsuleIndications: COPD, group D, by GOLD 2017 classification ([facility]) Take 1 Capsule by mouth 3 times a day as needed for Cough. 30 Capsule 3 08/29/2023 Active ARIPiprazole 2 MG Oral Tablet (Abilify)Indication s:Moderate episode of recurrent major depressive disorder ([facility]) Take 1 Tablet by mouth in the morning. 30 Tablet 1 09/06/2023 Active Fluticasone-Salmete rol 250-50 MCG/ACT Inhalation Aerosol Powder Breath Activated (Wixela Inhub)Indications:C OPD, group D, by GOLD 2017 classification ([facility]) Inhale 1 Puff by mouth in the morning and 1 Puff before bedtime. 60 Each 12 09/06/2023 Active Naloxone HCl 4 MG/0.1ML Nasal Liquid (Narcan Nasal) Administer 1 spray into 1 nostril for suspected opioid overdose. Seek immediate medical attention. [email or web address] 1 Each 3 09/15/2023 Active Tamsulosin HCl [...] on 10/24/2023 oxyCODONE HCl 7.5 MG Oral TabletIndications:C hronic [...] to torsemide 4 Tablet 5 10/22/2023 Active metOLazone 2.5 MG Oral Tablet (Zaroxolyn)Indicati ons:Ischemic cardiomyopathy Take 1 Tablet by mouth once a week. One tablet by oral route 3 days a week on Sunday, Sunday and for 7 days, take 30 minutes prior to torsemide with extra doses as directed 4 Tablet 5 10/19/2023 10/22/19 24 Discontinu ed(Refill) documented as of this encounter (statuses as of 10/24/2023) Active Problems Problem Noted Date Diagnosed Date [...] emphysema 09/22/2021 Atherosclerotic heart diseas e of [place] coronary artery with other forms of [...] untreated, BMI 43.71 kg/m, NECK: 21 inches, [place] 6/24, sent for bipap titration study 01/11/11 case per P completed ICD-10 update of inactive term BMI 35-39 ISOLATED (SEE ACTUAL BMI) 01/17/2010 Overview: Per Obesity Protocol, #19 BPH without obstruction/lower urinary tract symp toms 08/19/2009 Dyslipidemia, goal LDL below 70 07/21/2009 Overview: Per Lipid Taxonomy. documented as of this encounter (statuses as of 10/24/2023) Resolved Problems Problem Noted Date Diagnosed Date [...] 11/22/2020 10/12/2023 Coronary artery disease invo lving [place] coronary artery of [place] heart without angina pectoris 07/06/2020 10/12/2023 [...] 09/23/201305/17 Claudication 05/13/2013 10/12/2023 [employer] Other*[id number] 04/23/2012 09/12/2016 Overview: Study Title: Genomic Markers for Patients with Cardiovascular Disease Project # [id number] Driver Recruiter: Comfort Aviles MD [phone] Impotence of organic origin 02/16/2011 01/10/2018 Shortness [...] as of this encounter (statuses as of 10/24/2023) Immunizations Name Administration Dates Next Due COVID-19 [...] do you have serious difficulty h earing? No-[place] 11/14/2019 Are you blind or do you [...] Telephone Encounter - Queta Moore LPN - 10/24/2023 4:00 PM EDT Spoke with pt and made aware of lab results below from Dr. Hdz. * Telephone Encounter - Lili Weiss OSA - 10/24/2023 8:00 AM EDT Reason for patient's call: patient returned the call before 8am. I read Dr Wilder Diaz message,but patient would like to talk to a nurse. Please call his cell [phone]. Thank you. * Telephone Encounter - Mauricio Messina LPN - 10/23/2023 9:16 AM EDT LMOM for return call. Please give below message. * Telephone Encounter - Buster Jessica MD - 10/22/2023 12:22 PM EDT Metolazone prescription corrected and electronically prescribed. Please advise patient kidney function is a little bit worse from the recent diuresis and weight loss. Potassium level low at 3.1. Thisis expected after the increase dose of metolazone last week. Continue current potassium supplementation to in the morning and 1 in the evening. He is also on spironolactone. Check labs on Sunday10/30/2023. * Telephone Encounter - Bernal, VIOLETA Valdez - 10/22/2023 10:39 AM EDT Please advise. * Telephone Encounter - Erika Martin CPhT - 10/19/2023 4:01 PM EDT Pharmacy is calling because pt's prescription for metOLazone 2.5 MG Oral Tablet (Zaroxolyn) was sent with unclear directions stating "Take 1 Tablet by mouth once a week. One tablet by oral route 3 days a week on Sunday, Sunday and for 7 days, take 30 minutes prior to torsemide with extra doses as directed ". Please clarify the directions for this medication and send a new prescriptionto [facility] Pharmacy stating there are 2 sets of directions, asking to clarify. Thank you, Aimee Martin E Learning Specialist I [facility] (Formerly Telepharmacy) 10/19/2023,4:02 PM documented in this encounter Plan of Treatment Upcoming Encounters Date Type Department Care Team (Late st Contact Info) Description 10/29/2023 2:30 PM EDT Imaging Radiology [address] [address] 10/29/2023 3:00 PM EDT Office Visit Pulmonary Medicine, [address] [address] Ej Noble MD [address] [facility] [place] [address] 10/31/2023 11:10 AM EDT Office Visit [address] [phone] Buster Jessica MD [address] [place] [address] 11/01/2023 1:30 PM EDT Telemedicine [facility], [facility] [address] [place] [address] Grisel Richter CRNP [address] [place] [address] Clary Eastman, [facility] Online Marketing Analyst [address] [place] [address] 11/21/2023 10:55 AM EDT Hospital Encounter [facility], Operating Room [facility] [address] [place] [address] Freeman Beaulieu, DO [address] [place] [phone] 11/21/2023 10:55 AM EDT - 11/21/2023 11:20 AM EDT Surgery OR [facility], Operating Room [facility] [address] [place] [phone] Freeman Beaulieu, DO [address] [place] [phone] INJECTION SACROILIAC JOINT 11/22/2023 10:00 AM EDT Home Visit [facility], [facility] [address] [place] [address] Lisa Tenorio RN [address] [place] [address] 01/15/2024 10:40 AM EDT [facility] [address] [place] [phone] Clair Quarles, DO [address] [place] [address] 04/22/2024 9:30 AM EDT Cardiac Studies Cardiology, [facility] [address] [facility] [place] [address] [facility] [address] [place] [address] 05/19/2024 9:30 AM EDT Appointment Radiology, [place] [address] [facility] [place] [phone] Scheduled Orders Name Type Priority Associated Diagnoses Orde r Schedule RENAL FUNCTION PANEL Lab Routine Ischemic cardiomyopathy Expected: 10/30/2023 (Approximate), Expires: 10/21/2024 Scheduled Procedures Name Priority Associated Diagnoses Date/Ti [...] exists DISCUSS TOBACCO CESSATION (REFER TO SMARTSET #4149) 06/02/2023 06/02/2022, 07/21/2020 Depression, Most Recent Score [...] 09/10/2008 LUNG CANCER SCREENING - USE SMARTSET 51287 Completed 08/22/2022, 05/22/2022, 02/21/2021, Additional history exists [...] this encounter Medical Devices Implanted Type Area C Programmer Device Identifier Shelf Expiration Date Model / Serial / Lot 32mm X 109mm, Zenith Fenestrated Aaa Endovascular Proximal Body Graft, Two Proximal Internal Stent Implanted:Qty: 1 on 04/15/2018 by Evens Hoyt MD at OR [facility] N/A: Aorta [facility] 03/20/2021 LISA-P-2- 32-109-R / / [id number] Stent Graft [id number] - [id number] - [id number] Implanted:Qty: 1 on 04/15/2018 by Evens Hoyt MD at OR [facility] Right: Renal Artery GETINGE : JULIANNE 11/30/2020 [id number] / [id number] / [id number] Stent Graft [id number] - [id number] - [id number] Implanted:Qty: 1 on 04/15/2018 by Evens Hoyt MD at OR [facility] Right: Renal Artery GETINGE : MAQUET 11/30/2020 [id number] / [id number] / [id number] 28mm X 76mm Distal, 12mm Ipsilateral Leg, Zenith Fenestrated Aaa Endovascular Distal Bifurcated Body Graft Implanted:Qty: 1 on 04/15/2018 by Evens Hoyt MD at OR [facility] [place] N/A: Aorta [employer] 03/20/2021 ZFEN-D-12 -28-76-C / / [id number] Graft Iliac Leg Spirlz 77m64mz - [id number] Implanted:Qty: 1 on 04/15/2018 by Evens Hoyt MD at OR [facility] Left: Iliac [employer] 09/14/2020 [id number] / / [id number] Graft Iliac Leg Spirlz 27p40ii - [id number] Implanted:Qty: 1 on 04/15/2018 by Evens Hoyt MD at OR [facility] Right: Iliac [employer] 11/09/2020 [id number] / / [id number] Transfixation Pin 6mm 294.950 - [id number] Implanted:Qty: 1 on 11/14/2019 by Mayank Friedman MD at OR [facility] Right: Ankle SYNTHES 294.950 / / Description:transfixation pi n Screw Schanz 5.3mhq256og - [id number] Implanted:Qty: 2 on 11/14/2019 by Mayank Friedman MD at OR [facility] Right: Leg Lower SYNTHES 294.786SH A / / Description:self drilling sh antz screws 5.0mm x 200mm Brewster Trauma 2.7 Lock Screw 16mm Implanted:Qty: 2 on 11/27/2019 by Donavan Ramirez Jr., MD at OR [facility] Right: Ankle ESTHELA : TRAUMA [id number] / / Description:hardware set Esthela Trauma 2.7 Lock Screw 14mm Implanted:Qty: 1 on 11/27/2019 by Donavan Ramirez Jr., MD at OR [facility] Right: Ankle ESTHELA : TRAUMA [id number] / / Esthela Trauma 3.5 Screw 14mm Implanted:Qty: 1 on 11/27/2019 by Donavan Ramirez Jr., MD at OR [facility] Right: Ankle ESTHELA : TRAUMA [id number] / / Description:hardware set Brewster Trauma 3.5 Screw 18mm Implanted:Qty: 1 on 11/27/2019 by Donavan Ramirez Jr., MD at OR [facility] Right: Ankle ESTHELA : TRAUMA [id number] / / Description:hardware set Esthela 3.5 Lockscrew 16mm Implanted:Qty: 1 on 11/27/2019 by Donavan Ramirez Jr., MD at OR [facility] Right: Ankle [id number] / / Brewster 2.0 Plate Implanted:Qty: 1 on 11/27/2019 by Donavan Ramirez Jr., MD at OR [facility] Right: Ankle [id number] / / Esthela 2.0 Lock Screw Implanted:Qty: 2 on 11/27/2019 by Donavan Ramirez Jr., MD at [facility] Right: Ankle [id number] / / Brewster 2.0 Lock Screw Implanted:Qty: 1 on 11/27/2019 by Donavan Ramirez Jr., MD at [facility] Right: Ankle [id number] / / Brewster 2.0 Lock Screw Implanted:Qty: 1 on 11/27/2019 by Donavan Ramirez Jr., MD at OR [facility] Right: Ankle [id number] / / Plate Fib 5h - [id number] Implanted:Qty: 1 on 11/27/2019 by Donavan Ramirez Jr., MD at OR [facility] Right: Ankle ESTHELA [...] the patient have Health Care Power of Risk Specialist? No Full Code 02/17/2019 12:06 PM 02/18/2019 1:09 PM This order reflects the patients wishes and were consensually agreed upon. Question Answer Comments Discussion of Advance Directives occurred with: Not Discussed Does the patient have a Living Will? No Does the patient have Health Care Power of Risk Specialist? No Full Code 04/15/2018 12:43 PM 04/16/2018 2:43 PM This order reflects the patients wishes and were consensually agreed upon. Care Teams Annual Giving Manager Relationship Specialty Start Date End Date Buster Jessica MD [address] [place] [id number] PCP - General Family Medicine 09/11/22 documented as of this encounter
--- OUTSIDE RECORDS SUMMARY | 2023-12-11 18:53 | External Medical Summary | Summary of Care ---
Author Name Unknown Organization [facility] Address [address] [place] [address] Phone [phone] Care Team Providers Care Civil Engineer Helper Name Role Phone Buster Jessica MD Primary Care P rovider Reason for Visit * Reason Comments Outpatient Testing Encounter Details Date Type Department Care Team (Late st Contact Info) Description 10/19/2023 4:10 PM EDT Laboratory Laboratory Patient Service [address] [phone] [address] Arrived Allergies Active Allergy Reactions Criticality Noted Date [...] (Demadex)Indications :Heart failure, systolic, due to CAD ([facility]) Take 1 tablet by mouth [...] ReleaseIndications:H TN, goal below 140/90,Paroxysmal atrial fibrillation ([facility]),LBBB (left bundle branch block) TAKE 2 TABLETS BY MOUTH ONCE DAILY IN THE MORNING AND ONE TAB IN THE EVENING 270 Tablet 3 02/07/2023 Active Metoprolol Succinate ER 100 MG Oral Tablet Extended Release 24 Hour (toPROL XL) TAKE ONE TABLET BY MOUTH ONCE DAILY 90 Tablet 3 03/08/2023 Active Clopidogrel Bisulfate 75 MG Oral Tablet (pLAVix)Indications: PAD (peripheral artery disease) ([facility]),Coronary artery disease involving huslia coronary artery of huslia heart without angina pectoris TAKE ONE TABLET BY MOUTH ONCE DAILY 90 Tablet 3 03/13/2023 Active Albuterol Sulfate (2.5 MG/3ML) 0.083% Inhalation Nebulization Solution (Proventil)Indicatio ns:COPD, group D, by GOLD 2017 classification ([facility]) Inhale 1 Vial via nebulizer every 4 hours as needed for Wheezing. 75 mL 1 04/23/2023 Active Famotidine 20 MG Oral Tablet (Pepcid) TAKE 1 TABLET BY MOUTH TWICE DAILY (MORNING AND AT BEDTIME) 180 Tablet 3 04/30/2023 Active Spironolactone 25 MG Oral Tablet (Aldactone)Indicatio ns:Coronary artery disease involving huslia coronary artery of huslia heart without angina pectoris,Heart failure, systolic, due to CAD ([facility]),Chronic ischemic heart disease,HTN, goal below 140/90 TAKE ONE TABLET BY MOUTH ONCE DAILY 90 Tablet 3 05/14/2023 Active Losartan Potassium 25 MG Oral Tablet (Cozaar)Indications: PAD (peripheral artery disease) ([facility]),Coronary artery disease involving huslia coronary artery of huslia heart without angina pectoris TAKE ONE TABLET BY MOUTH ONCE DAILY 90 Tablet 3 06/04/2023 Active Baclofen 20 MG Oral TabletIndications:Ch ronic bilateral low back pain without sciatica Take 1 Tablet by mouth 3 times a day as needed for Muscle spasms. 90 Tablet 5 06/06/2023 Active Repatha SureClick 140 MG/ML Subcutaneous Solution Auto-injector (evolocumab)Indicati ons:Obstructive sleep apnea,Heart failure, systolic, due to CAD ([facility]),Dyslipidemia, goal LDL below 70,Chronic ischemic heart disease,Tobacco use disorder,Coronary artery disease involving huslia coronary artery of huslia heart without angina pectoris Inject 140 mg (1 pen) under the skin every 14 days. 6 mL 3 07/02/2023 Active Metoprolol Succinate ER 50 MG Oral Tablet Extended Release 24 Hour (Toprol XL)Indications:Persi stent atrial fibrillation ([facility]),Acute on chronic systolic (congestive) heart failure ([facility]) One tablet by mouth daily at bedtime, this is in addition to the previous prescription for 100 milligrams daily in the morning. 90 Tablet 3 08/23/2023 Active Digoxin 125 MCG Oral Tablet (Lanoxin) Take 1 Tablet by mouth in the morning. 90 Tablet 3 08/23/2023 Active Benzonatate 100 MG Oral CapsuleIndications:C OPD, group D, by GOLD 2017 classification ([facility]) Take 1 Capsule by mouth 3 times a day as needed for Cough. 30 Capsule 3 08/29/2023 Active ARIPiprazole 2 MG Oral Tablet (Abilify)Indications :Moderate episode of recurrent major depressive disorder ([facility]) Take 1 Tablet by mouth in the morning. 30 Tablet 1 09/06/2023 Active Fluticasone-Salmeter ol 250-50 MCG/ACT Inhalation Aerosol Powder Breath Activated (Wixela Inhub)Indications:CO PD, group D, by GOLD 2017 classification ([facility]) Inhale 1 Puff by mouth in the morning and 1 Puff before bedtime. 60 Each 12 09/06/2023 Active Naloxone HCl 4 MG/0.1ML Nasal Liquid (Narcan Nasal) Administer 1 spray into 1 nostril for suspected opioid overdose. Seek immediate medical attention. https://www.[email or web address]/watch?v=v26c [email or web address] 1 Each 3 09/15/2023 Active Tamsulosin HCl [...] 10/12/2023 Active metOLazone 2.5 MG Oral Tablet (Zaroxolyn)Indicatio ns:Ischemic cardiomyopathy Take 1 Tablet by mouth once a week. One tablet by oral route 3 days a week on Sunday, Sunday and for 7 days, take 30 minutes prior to torsemide with extra doses as directed 4 Tablet 5 10/19/2023 Active oxyCODONE HCl 7.5 MG Oral TabletIndications:Ch ronic bilateral low back pain without sciatica Take 1 Tablet by mouth every 6 hours as needed for Pain, Severe. 28 Tablet 0 10/19/2023 Active Allopurinol 100 MG Oral Tablet (Zyloprim)Indication s:Acute gout of right hand, unspecified cause Take 1 Tablet by mouth in the morning. 30 Tablet 11 10/19/2023 Active documented as of this encounter (statuses [...] emphysema 09/22/2021 Atherosclerotic heart diseas e of huslia coronary artery with other forms of angina [...] untreated, BMI 43.71 kg/m, NECK: 21 inches, [place] 6/24, sent for bipap titration study 01/11/11 [...] 11/22/2020 10/12/2023 Coronary artery disease invo lving huslia coronary artery of huslia heart without angina pectoris 07/06/2020 10/12/2023 Chronic [...] 09/23/201305/17 Claudication 05/13/2013 10/12/2023 [employer] Other*[id number] 04/23/2012 09/12/2016 Overview: Study Title: Genomic Markers for Patients with Cardiovascular Disease Project # [id number] Electrical Sign Wirer: Comfort Aviles MD [phone] Impotence of organic origin 02/16/2011 01/10/2018 Shortness [...] do you have serious difficulty h earing? No-[place] 11/14/2019 Are you blind or do [...] Description 10/24/2023 12:30 PM EDT Home Visit [facility] [place] [address] [place] [address], [place] [address] Lisa Tenorio, RN [address] [place] [address] 10/29/2023 2:30 PM EDT Imaging Radiology [facility] [address] [facility] [place] [address] 10/29/2023 3:00 PM EDT Office Visit Pulmonary Medicine, Health system [address] [facility] [place] [address] Ej Noble MD [address] [facility] [place] [address] 10/31/2023 11:10 AM EDT Office Visit [facility] [address] [place] [phone] Buster Jessica MD [address] [place] [address] 11/01/2023 1:30 PM EDT Telemedicine [facility] [place] [address] [place] [address] Grisel Richter CRNP [address] [place] [address] Clary Eastman, Community [facility] Salon Sales Consultant [facility] [place] [address] 11/21/2023 10:55 AM EDT Hospital Encounter [facility], Operating Room [facility] [address] [facility] [place] [phone] Freeman Beaulieu DO [address] [facility] [place] [phone] 11/21/2023 10:55 AM EDT - 11/21/2023 11:20 AM EDT Surgery [facility], Operating Room [facility] [address] [place] [phone] Freeman Beaulieu, DO [address] [place] [phone] INJECTION SACROILIAC JOINT 01/15/2024 10:40 AM EDT Office Visit [facility] [address] [place] [phone] Clair Quarles, DO [address] [place] [address] 04/22/2024 9:30 AM EDT Cardiac Studies Cardiology, Health system [address] [place] [address] [facility] [address] [place] [address] 05/19/2024 9:30 AM EDT Appointment Radiology, [address] [address] Scheduled Procedures Name Priority Associated [...] exists DISCUSS TOBACCO CESSATION (REFER TO SMARTSET #9267) 06/02/2023 06/02/2022, 07/21/2020 Depression, Most Recent Score [...] 09/10/2008 LUNG CANCER SCREENING - USE SMARTSET 99935 Completed 08/22/2022, 05/22/2022, 02/21/2021, Additional history exists [...] encounter Medical Devices Implanted Type Area [employer] Consultant Device Identifier Shelf Expiration Date Model / Serial / Lot 32mm X 109mm, Zenith Fenestrated Aaa Endovascular Proximal Body Graft, Two Proximal Internal Stent Implanted:Qty: 1 on 04/15/2018 by Evens Hoyt MD at [place] [facility] N/A: Aorta [employer] 03/20/2021 ZFEN-P-2- [id number] / / [id number] Stent Graft [id number] - [id number] - [id number] Implanted:Qty: 1 on 04/15/2018 by Evens Hoyt MD at OR [facility] Right: Renal Artery GETINGE : GENET 11/30/2020 78129 / [id number] / [id number] Stent Graft [id number] - [id number] - [id number] Implanted:Qty: 1 on 04/15/2018 by Evens Hoyt MD at OR [facility] Right: Renal Artery GETINGE : MAQUET 11/30/2020 45000 / [id number] / [id number] 28mm X 76mm Distal, 12mm Ipsilateral Leg, Zenith Fenestrated Aaa Endovascular Distal Bifurcated Body Graft Implanted:Qty: 1 on 04/15/2018 by Evens Hoyt MD at OR [facility] N/A: Aorta [employer] 03/20/2021 ZFEN-D-12 -28-76-C / / [id number] Graft Iliac Leg Spirlz 42l58ua - [id number] Implanted:Qty: 1 on 04/15/2018 by Evens Hoyt MD at OR [facility] Left: Iliac [employer] 09/14/2020 [id number] / / [id number] Graft Iliac Leg Spirlz [id number] - [id number] Implanted:Qty: 1 on 04/15/2018 by Evens Hoyt MD at OR [facility] Right: Iliac [employer] 11/09/2020 [id number] / / [id number] Transfixation Pin 6mm 294.950 - [id number] Implanted:Qty: 1 on 11/14/2019 by Mayank Friedman MD at OR [facility] Right: Ankle SYNTHES 294.950 / / Description:transfixation pi n Screw Schanz 5.3eee059um - [id number] Implanted:Qty: 2 on 11/14/2019 by Mayank Friedman MD at OR [facility] Right: Leg Lower SYNTHES 294.786SH A / / Description:self drilling sh antz screws 5.0mm x 200mm Esthela Trauma 2.7 Lock Screw 16mm Implanted:Qty: 2 on 11/27/2019 by Donavan Ramirez Jr., MD at OR [facility] Right: Ankle ESTHELA : TRAUMA [id number] / / Description:hardware set Delano Trauma 2.7 Lock Screw 14mm Implanted:Qty: 1 on 11/27/2019 by Donavan Ramirez Jr., MD at OR [facility] Right: Ankle ESTHELA : TRAUMA [id number] / / Delano Trauma 3.5 Screw 14mm Implanted:Qty: 1 on 11/27/2019 by Donavan Ramirez Jr., MD at OR [facility] Right: Ankle ESTHELA : TRAUMA [id number] / / Description:hardware set Delano Trauma 3.5 Screw 18mm Implanted:Qty: 1 on 11/27/2019 by Donavan Ramirez Jr., MD at OR [facility] Right: Ankle ESTHELA : TRAUMA [id number] / / Description:hardware set Delano 3.5 Lockscrew 16mm Implanted:Qty: 1 on 11/27/2019 by Donavan Ramirez Jr., MD at OR [facility] Right: Ankle [id number] / / Esthela 2.0 Plate Implanted:Qty: 1 on 11/27/2019 by Donavan Ramirez Jr., MD at OR [facility] Right: Ankle [id number] / / Esthela 2.0 Lock Screw Implanted:Qty: 2 on 11/27/2019 by Donavan Ramirez Jr., MD at [facility] Right: Ankle [id number] / / Delano 2.0 Lock Screw Implanted:Qty: 1 on 11/27/2019 by Donavan Ramirez Jr., MD at OR [facility] Right: Ankle [id number] / / Esthela 2.0 Lock Screw Implanted:Qty: 1 on 11/27/2019 by Donavan Ramirez Jr., MD at OR [facility] Right: Ankle [id number] / / Plate Fib 5h - [id number] Implanted:Qty: 1 on 11/27/2019 by Donavan Ramirez Jr., MD at OR [facility] Right: Ankle ESTHELA : [...] the patient have Health Care Power of Gutter Installer? No Full Code 02/17/2019 12:06 PM 02/18/2019 1:09 PM This order reflects the patients wishes and were consensually agreed upon. Question Answer Comments Discussion of Advance Directives occurred with: Not Discussed Does the patient have a Living Will? No Does the patient have Health Care Power of Gutter Installer? No Full Code 04/15/2018 12:43 PM 04/16/2018 2:43 PM This order reflects the patients wishes and were consensually agreed upon. Care Teams Civil Engineer Helper Relationship Specialty Start Date End Date Buster Jessica MD [address] [place] [address] PCP - General Family Medicine 09/11/22 documented as of this encounter
--- OUTSIDE RECORDS SUMMARY | 2023-12-11 18:53 | External Medical Summary | Summary of Care ---
Author Name Unknown Organization [facility] Address [address] [place] [address] Phone [phone] Care Team Providers Care Radiology Tech Name Role Phone Buster Jessica MD Primary Care P [facility] Reason for Visit * Reason Onset Date Comments [facility]: Acute 10/25/2023 Encounter Details Date Type Department Care Team (Late st Contact Info) Description 10/25/2023 Telephone [facility] [address] [facility] [place] [address] Region, Nurse [address] [address] [facility]: Acute Allergies [...] (Demadex)Indications :Heart failure, systolic, due to CAD ([facility] [...] ReleaseIndications:H TN, goal below 140/90,Paroxysmal atrial fibrillation ([facility]),LBBB (left bundle branch block) [...] Oral Tablet (pLAVix)Indications: PAD (peripheral artery disease) ([facility]),Coronary artery disease involving [place] coronary artery of [place] heart without angina pectoris TAKE ONE TABLET BY MOUTH ONCE DAILY 90 Tablet 3 03/13/2023 Active Albuterol Sulfate (2.5 MG/3ML) 0.083% Inhalation Nebulization Solution (Proventil)Indicatio ns:COPD, group D, by GOLD 2017 classification ([facility]) Inhale 1 Vial via nebulizer every 4 hours as needed for Wheezing. 75 mL 1 04/23/2023 Active Famotidine 20 MG Oral Tablet (Pepcid) TAKE 1 TABLET BY MOUTH TWICE DAILY (MORNING AND AT BEDTIME) 180 Tablet 3 04/30/2023 Active Spironolactone 25 MG Oral Tablet (Aldactone)Indicatio ns:Coronary artery disease involving [place] coronary artery of [place] heart without angina pectoris,Heart failure, systolic, due to CAD ([facility]),Chronic ischemic heart disease,HTN, goal below 140/90 TAKE ONE TABLET BY MOUTH ONCE DAILY 90 Tablet 3 05/14/2023 Active Losartan Potassium 25 MG Oral Tablet (Cozaar)Indications: PAD (peripheral artery disease) ([facility]),Coronary artery disease involving [place] coronary artery of [place] heart without angina pectoris TAKE ONE TABLET [...] systolic, due to CAD ([facility]),Dyslipidemia, goal LDL below 70,Chronic ischemic heart disease,Tobacco use disorder,Coronary artery disease involving [place] coronary artery of [place] heart without angina pectoris Inject 140 mg (1 pen) under the skin every 14 days. 6 mL 3 07/02/2023 Active Metoprolol Succinate ER 50 MG Oral Tablet Extended Release 24 Hour (Toprol XL)Indications:Persi stent atrial fibrillation ([facility]),Acute on chronic systolic (congestive) heart failure ([facility] [...] OPD, group D, by GOLD 2017 classification ([facility]) Take 1 Capsule by mouth 3 times a day as needed for Cough. 30 Capsule 3 08/29/2023 Active ARIPiprazole 2 MG Oral Tablet (Abilify)Indications :Moderate episode of recurrent major depressive disorder ([facility]) Take 1 Tablet by mouth in the morning. 30 Tablet 1 09/06/2023 Active Fluticasone-Salmeter ol 250-50 MCG/ACT Inhalation Aerosol Powder Breath Activated (Wixela Inhub)Indications:CO PD, group D, by GOLD 2017 classification ([facility]) Inhale 1 Puff by mouth in the morning and 1 Puff before bedtime. 60 Each 12 09/06/2023 Active Naloxone HCl 4 MG/0.1ML Nasal Liquid (Narcan Nasal) Administer 1 spray into 1 nostril for suspected opioid overdose. Seek immediate medical attention. [email or web address]://[email or web address]/[email or web address]?v=v26c [email or web address] 1 Each 3 09/15/2023 Active Tamsulosin HCl [...] emphysema 09/22/2021 Atherosclerotic heart diseas e of [place] coronary artery with other forms of angina [...] untreated, BMI 43.71 kg/m, NECK: 21 inches, [place] 6/24, sent for bipap titration study 01/11/11 case [address] [facility] completed ICD-10 update of inactive [...] 11/22/2020 10/12/2023 Coronary artery disease invo lving [place] coronary artery of [place] heart without angina pectoris 07/06/2020 10/12/2023 Chronic [...] 09/23/201305/17 Claudication 05/13/2013 10/12/2023 [employer] Other*[id number] 04/23/2012 09/12/2016 Overview: Study Title: Genomic Markers for Patients with Cardiovascular Disease Project # [id number] [employer]: Comfort Aviles MD [phone] Impotence of organic origin 02/16/2011 01/10/2018 Shortness [...] do you have serious difficulty h earing? No-[place] 11/14/2019 Are you blind or do you [...] AM EDT Received in basket message from coal sampler. Outgoing call to pt and LMOM requesting return call to [facility], [phone] provided. Yen RAVI, RN [facility] Intake Triage Coordinator [phone] documented in this encounter Plan of Treatment Upcoming Encounters Date Type Department Care Team (Late st Contact Info) Description 10/29/2023 2:30 PM EDT Imaging Radiology [facility] [address] [facility] [facility] [place] [address] 10/29/2023 3:00 PM EDT Office Visit Pulmonary Medicine, [facility] [address] [facility] [place] [address] Ej Noble MD [address] [place] [address] 10/31/2023 11:10 AM EDT Office Visit [facility] [address] [place] [phone] Buster Jessica MD [address] [place] [address] 11/01/2023 1:30 PM EDT Telemedicine [facility] [place], [place] [address] [place] [address] Grisel Richter CRNP [address] [place] [address] Clary Eastman, [facility] Machine Operator [address] [place] [address] 11/21/2023 10:55 AM EDT Hospital Encounter [facility], Operating [facility] [address] [place] [phone] Freeman Beaulieu DO [address] [place] [address] 11/21/2023 10:55 AM EDT - 11/21/2023 11:20 AM EDT Surgery [facility], Operating Room [facility] [address] [place] [phone] Freeman Beaulieu, DO [address] [place] [phone] INJECTION SACROILIAC JOINT 11/22/2023 10:00 AM EDT Home Visit [facility] [address] [place] [address] Lisa Tenorio RN [address] [facility] [place] [address] 01/15/2024 10:40 AM EDT Office Visit [facility] [address] [place] [phone] Clair Quarles DO [address] [place] [address] 04/22/2024 9:30 AM EDT Cardiac Studies Cardiology, [facility] [address] [place] [address] [facility] [address] [place] [address] 05/19/2024 9:30 AM EDT Appointment Radiology, [place] [id number] [place] [address] Scheduled Procedures Name Priority Associated Diagnoses Date/Ti me INJECTION SACROILIAC JOINT Inflammation of sacroiliac joint (HCC) 11/21/2023 10:55 AM EDT COLONOSCOPY FLEXIBLE PROXIMAL DIAGNOSTIC Recall History of colon polyps Health Maintenance Due Date Last Done Comments *ADVANCE DIRECTIVE NOT ON FILE 05/28/2019 COVID-19 Vaccine (3 - season) 2023 11/08/2020, 10/08/2020 Influenza Vaccine (FLU shot) (#1) 2023 05/11/2022, 06/09/2021, 04/13/2020, Additional history exists DISCUSS TOBACCO CESSATION (REFER TO SMARTSET #7356) 06/02/2023 06/02/2022, 07/21/2020 Depression, Most Recent Score [...] 09/10/2008 LUNG CANCER SCREENING - USE SMARTSET 49669 Completed 08/22/2022, 05/22/2022, 02/21/2021, Additional history exists [...] this encounter Medical Devices Implanted Type Area Product Manager Financial Services Device Identifier Shelf Expiration Date Model / Serial / Lot 32mm X 109mm, Zenith Fenestrated Aaa Endovascular Proximal Body Graft, Two Proximal Internal Stent Implanted:Qty: 1 on 04/15/2018 by Evens Hoyt MD at OR [facility] N/A: Aorta [employer] 03/20/2021 ZFEN-P-2- [id number] / / [id number] Stent Graft [id number] - [id number] - [id number] Implanted:Qty: 1 on 04/15/2018 by Evens Hoyt MD at OR [facility] Right: Renal Artery GETINGE : MAQUET 11/30/2020 [id number] / [id number] / [id number] Stent Graft [id number] - [id number] - [id number] Implanted:Qty: 1 on 04/15/2018 by Evens Hoyt MD at OR [facility] Right: Renal Artery GETINGE : MAQUET 11/30/2020 33722 / [id number] / [id number] 28mm X 76mm Distal, 12mm Ipsilateral Leg, Zenith Fenestrated Aaa Endovascular Distal Bifurcated Body Graft Implanted:Qty: 1 on 04/15/2018 by Evens Hoyt MD at OR [facility] N/A: Aorta [employer] 03/20/2021 [id number]-D-12 -28-76-[id number] / / [id number] Graft Iliac Leg Spirlz [id number] - [id number] Implanted:Qty: 1 on 04/15/2018 by Evens Hoyt MD at OR [facility] Left: Iliac [employer] 09/14/2020 [id number] / / [id number] Graft Iliac Leg Spirlz 62g41yl - [id number] Implanted:Qty: 1 on 04/15/2018 by Evens Hoyt MD at OR [facility] Right: Iliac [employer] 11/09/2020 [id number] / / [id number] Transfixation Pin 6mm 294.950 - [id number] Implanted:Qty: 1 on 11/14/2019 by Mayank Friedman MD at OR [facility] Right: Ankle SYNTHES 294.950 / / Description:transfixation pi n Screw Schanz 5.5yes375ak - [id number] Implanted:Qty: 2 on 11/14/2019 by Mayank Friedman MD at OR [facility] Right: Leg Lower SYNTHES 294.786SH A / / Description:self drilling sh antz screws 5.0mm x 200mm Esthela Trauma 2.7 Lock Screw 16mm Implanted:Qty: 2 on 11/27/2019 by Donavan Ramirez Jr., MD at OR [facility] Right: Ankle ESTHELA : TRAUMA [id number] / / Description:hardware set Esthela Trauma 2.7 Lock Screw 14mm Implanted:Qty: 1 on 11/27/2019 by Donavan Ramirez Jr., MD at OR [facility] Right: Ankle ESTHELA : TRAUMA [id number] / / [place]wood Trauma 3.5 Screw 14mm Implanted:Qty: 1 on 11/27/2019 by Donavan Ramirez Jr., MD at OR [facility] Right: Ankle ESTHELA : TRAUMA [id number] / / Description:hardware set [place] Trauma 3.5 Screw 18mm Implanted:Qty: 1 on 11/27/2019 by Donavan Ramirez Jr., MD at OR [facility] Right: Ankle ESTHELA : TRAUMA [id number] / / Description:hardware set Esthela 3.5 Lockscrew 16mm Implanted:Qty: 1 on 11/27/2019 by Donavan Ramirez Jr., MD at OR [facility] Right: Ankle [id number] / / [place] 2.0 Plate Implanted:Qty: 1 on 11/27/2019 by Donavan Ramirez Jr., MD at OR [facility] Right: Ankle [id number] / / Esthela 2.0 Lock Screw Implanted:Qty: 2 on 11/27/2019 by Donavan Ramirez Jr., MD at OR [facility] Right: Ankle [id number] / / Esthela 2.0 Lock Screw Implanted:Qty: 1 on 11/27/2019 by Donavan Ramirez Jr., MD at OR [facility] Right: Ankle [id number] / / [place] 2.0 Lock Screw Implanted:Qty: 1 on 11/27/2019 by Donavan Ramirez Jr., MD at OR [facility] Right: Ankle [id number] / / Plate Fib 5h - - [id number] Implanted:Qty: 1 on 11/27/2019 by Donavan Ramirez Jr., MD at [facility] Right: Ankle ESTHELA : TRAUMA [...] the patient have Health Care Power of Brick Molder Hand? No Full Code 02/17/2019 12:06 PM 02/18/2019 1:09 PM This order reflects the patients wishes and were consensually agreed upon. Question Answer Comments Discussion of Advance Directives occurred with: Not Discussed Does the patient have a Living Will? No Does the patient have Health Care Power of Brick Molder Hand? No Full Code 04/15/2018 12:43 PM 04/16/2018 2:43 PM This order reflects the patients wishes and were consensually agreed upon. Care Teams Radiology Tech Relationship Specialty Start Date End Date Buster Jessica MD [address] [place] [address] PCP - General Family Medicine 09/11/22 documented as of this encounter
--- OUTSIDE RECORDS SUMMARY | 2023-12-11 18:54 | External Medical Summary | Summary of Care ---
Author Name Unknown Organization [facility] Address [address] [place] [address] Phone [phone] Care Team Providers Care Report Manager Name Role Phone Buster Jessica MD Primary Care [facility] Reason for Visit * Reason Onset Date Comments Appointment 10/17/2023 Encounter Details Date Type Department Care Team (Late st Contact Info) Description 10/17/2023 Telephone [facility] [place] [facility] [address] [place] [phone] Services, Scheduling [address] [place] [address] Appointment (/) Allergies Active Allergy Reactions Criticality Noted Date Comments Atorvastatin Muscle pain,Unknown 01/18/2015 Medication intolerance, not an allergy Sacubitril-Valsartan Other (Please comment) 09/17/2020 Throat swelled Sacubitril High 07/20/2023 Other Reaction(s): THROAT SWELLING Simvastatin Low 06/23/2022 Other reaction(s): MUSCLE ACHES Valsartan High 07/20/2023 Other Reaction(s): THROAT SWELLING documented as of this encounter (statuses as of 10/17/2023) Medications Medication Sig Dispensed Refills Start Date End Date Status Torsemide 100 MG Oral Tablet (Demadex)Indications :Heart failure, systolic, due to CAD ([facility]) Take 1 tablet by mouth every morning. [...] goal below 140/90,Paroxysmal atrial fibrillation ([facility]),LBBB (left bundle branch block) TAKE 2 TABLETS BY MOUTH ONCE DAILY IN THE MORNING AND ONE TAB IN THE EVENING 270 Tablet 3 02/07/2023 Active Metoprolol Succinate ER 100 MG Oral Tablet Extended Release 24 Hour (toPROL XL) TAKE ONE TABLET BY MOUTH ONCE DAILY 90 Tablet 3 03/08/2023 Active Clopidogrel Bisulfate 75 MG Oral Tablet (pLAVix)Indications: PAD (peripheral artery disease) ([facility]),Coronary artery disease involving [place] coronary artery of [place] heart without angina pectoris TAKE ONE TABLET [...] Oral Tablet (Aldactone)Indicatio ns:Coronary artery disease involving [place] coronary artery of [place] heart without angina pectoris,Heart failure, systolic, due to CAD ([facility]),Chronic ischemic heart disease,HTN, goal below 140/90 TAKE ONE TABLET BY MOUTH ONCE DAILY 90 Tablet 3 05/14/2023 Active Losartan Potassium 25 MG Oral Tablet (Cozaar)Indications: PAD (peripheral artery disease) ([facility]),Coronary artery disease involving [place] coronary artery of [place] heart without angina pectoris TAKE ONE TABLET [...] heart disease,Tobacco use disorder,Coronary artery disease involving [place] coronary artery of [place] heart without angina pectoris Inject 140 mg (1 pen) under the skin every 14 days. 6 mL 3 07/02/2023 Active Metoprolol Succinate ER 50 MG Oral Tablet Extended Release 24 Hour (Toprol XL)Indications:Persi stent atrial fibrillation ([facility]),Acute on chronic systolic (congestive) heart failure ([facility]) One tablet by mouth daily at bedtime, [...] classification ([facility]) Take 1 Capsule by mouth 3 times a day as needed for Cough. 30 Capsule 3 08/29/2023 Active ARIPiprazole 2 MG Oral Tablet (Abilify)Indications :Moderate episode of recurrent major depressive disorder ([facility]) Take 1 Tablet by mouth in the [...] suspected opioid overdose. Seek immediate medical attention. [email or web address] 1 Each 3 09/15/2023 Active Additional Information Patient not taking.Reported on 10/12/2023 Tamsulosin HCl 0.4 MG Oral Capsule (Flomax) TAKE 1 CAPSULE BY MOUTH ONCE DAILY IN THE MORNING 90 Capsule 3 09/21/2023 Active Desvenlafaxine Succinate ER 100 MG Oral Tablet Extended Release 24 Hour (Pristiq)Indications :Moderate episode of recurrent major depressive disorder (HCC) Take 1 Tablet by mouth in the morning. 30 Tablet 11 09/21/2023 Active metOLazone 2.5 MG Oral Tablet (Zaroxolyn) One tablet by oral route 3 days a week on Sunday, Sunday and for 7 days, take 30 minutes prior to torsemide with extra doses as directed 0 10/12/2023 Active hydrOXYzine HCl 25 MG Oral TabletIndications:In somnia due to medical condition Take 0.5 Tablets by mouth at bedtime as needed for Other (sleep). 30 Tablet 1 10/12/2023 Active oxyCODONE HCl 7.5 MG Oral TabletIndications:Ch ronic bilateral low back pain without sciatica Take 1 Tablet by mouth every 6 hours as needed for Pain, Severe. 28 Tablet 0 10/16/2023 Active documented as of this encounter (statuses as of 10/17/2023) Active Problems Problem Noted Date Diagnosed Date [...] emphysema 09/22/2021 Atherosclerotic heart diseas e of [place] coronary artery with other forms of angina [...] untreated, BMI 43.71 kg/m, NECK: 21 inches, [place] 6/24, sent for bipap titration study 01/11/11 case per [facility] completed ICD-10 update of inactive term BMI 35-39 ISOLATED (SEE ACTUAL BMI) 01/17/2010 Overview: Per Obesity Protocol, #19 BPH without obstruction/lower urinary tract symp toms 08/19/2009 Dyslipidemia, goal LDL below 70 07/21/2009 Overview: Per Lipid Taxonomy. documented as of this encounter (statuses as of 10/17/2023) Resolved Problems Problem Noted Date Diagnosed Date [...] 11/22/2020 10/12/2023 Coronary artery disease invo lving [place] coronary artery of [place] heart without angina pectoris 07/06/2020 10/12/2023 Chronic [...] 09/23/201305/17 Claudication 05/13/2013 10/12/2023 [employer] Other*[id number] 04/23/2012 09/12/2016 Overview: Study Title: Genomic Markers for Patients with Cardiovascular Disease Project # [id number] Director Of Housing And Energy Services: Comfort Aviles MD [phone] Impotence of organic origin 02/16/2011 01/10/2018 Shortness [...] as of this encounter (statuses as of 10/17/2023) Immunizations Name Administration Dates Next Due COVID-19 [...] do you have serious difficulty h earing? No-[facility] 11/14/2019 Are you blind or do you [...] Telephone Encounter - María Ghotra OSA - 10/17/2023 9:37 AM EDT Moved João off due to distance, appt set for 10/23 pt agreeable. documented in this encounter Plan of Treatment Upcoming Encounters Date Type Department Care Team (Late st Contact Info) Description 10/19/2023 9:15 AM EDT Office Visit Podiatry [facility] [address] [facility] [address] [place] [address] Willard Mejia, DPM [address] [place] [address] 10/19/2023 2:50 PM EDT Office Visit Family Practice [facility] [address] [place] [phone] Buster Jessica MD [address] [place] [address] 10/24/2023 12:30 PM EDT Home Visit [facility] [address] [place] [address] Lisa Tenorio RN [address] [place] [address] 10/29/2023 2:30 PM EDT Imaging Radiology [facility] [address] [facility] [address] [place] [address] 10/29/2023 3:00 PM EDT Office Visit Pulmonary Medicine, [facility] [address] [place] [address] Ej Noble MD [address] [place] [address] 11/01/2023 1:30 PM EDT Telemedicine [facility] [address] [place] [address] Grisel Richter CRNP [address] [place] [address] Clary Eastman, Community Health Distribution Lineman [address] [place] [address] 11/21/2023 10:55 AM EDT Hospital Encounter [facility] Operating [facility] [address] [place] [phone] Freeman Beaulieu, DO [address] [place] [address] 11/21/2023 10:55 AM EDT - 11/21/2023 11:20 AM EDT Surgery [facility], Operating Room [facility] [address] [place] [address] Freeman Beaulieu, DO [address] [place] [phone] INJECTION SACROILIAC JOINT 04/22/2024 9:30 AM EDT Cardiac Studies Cardiology, [facility] [address] [place] [address] [place], [facility] [address] [place] [address] 05/19/2024 9:30 AM EDT Appointment Radiology, [address] [address] Scheduled Procedures Name Priority Associated [...] ASSESSMENT COMPLETED IN PAST YEAR FOR COPD 10/11/2024 10/12/2023 Albumin/Creatinine Ratio 06/06/2026 06/06/2023 COLONOSCOPY-EVERY 5 YRS AGES 18-100 10/28/2027 10/27/2022, 04/21/2014, 04/21/2014, Additional history exists DTaP,Tdap,and Td Vaccines (3 - Td or Tdap) 04/13/2030 04/13/2020 (Declined), 08/19/2009 Alpha-1 Antitrypsin Completed 02/19/2020 Pneumococcal Vaccine: 65+ Years Completed 05/27/2020, 12/02/2018, 09/10/2008 LUNG CANCER SCREENING - USE SMARTSET 19567 Completed 08/22/2022, 05/22/2022, 02/21/2021, Additional history exists [...] this encounter Medical Devices Implanted Type Area Take Up Supervisor Device Identifier Shelf Expiration Date Model / Serial / Lot 32mm X 109mm, Zenith Fenestrated Aaa Endovascular Proximal Body Graft, Two Proximal Internal Stent Implanted:Qty: 1 on 04/15/2018 by Evens Hoyt MD [place] [facility] N/A: Aorta [employer] 03/20/2021 ZFEN-P-2- 32-109-R / / [id number] Stent Graft [id number] - [id number] - [id number] Implanted:Qty: 1 on 04/15/2018 by Evens Hoyt MD [place] [facility] Right: Renal Artery GETINGE : MAQUET 11/30/2020 56536 / [id number] / [id number] Stent Graft [id number] - [id number] - [id number] Implanted:Qty: 1 on 04/15/2018 by Evens Hoyt MD [place] [facility] Right: Renal Artery GETINGE : MAQUET 11/30/2020 [id number] / [id number] / [id number] 28mm X 76mm Distal, 12mm Ipsilateral Leg, Zenith Fenestrated Aaa Endovascular Distal Bifurcated Body Graft Implanted:Qty: 1 on 04/15/2018 by Evens Hoyt MD [place] [facility] N/A: Aorta [employer] 03/20/2021 ZFEN-D-12 -28-76-C / / [id number] Graft Iliac Leg Spirlz [id number] - [id number] Implanted:Qty: 1 on 04/15/2018 by Evens Hoyt MD [place] [facility] Left: Iliac [employer] 09/14/2020 [id number] / / [id number] Graft Iliac Leg Spirlz [id number] - [id number] Implanted:Qty: 1 on 04/15/2018 by Evens Hoyt MD [place] [facility] Right: Iliac [employer] 11/09/2020 [id number] / / [id number] Transfixation Pin 6mm 294.950 - [id number] Implanted:Qty: 1 on 11/14/2019 by Mayank Friedman MD at OR [facility] Right: Ankle SYNTHES 294.950 / / Description:transfixation pi n Screw Schanz [id number] - [id number] Implanted:Qty: 2 on 11/14/2019 by Mayank Friedman MD at OR [facility] Right: Leg Lower SYNTHES 294.786SH A / / Description:self drilling sh antz screws 5.0mm x 200mm [place] Trauma 2.7 Lock Screw 16mm Implanted:Qty: 2 on 11/27/2019 by Donavan Ramirez Jr., MD [place] [facility] Right: Ankle ESTHELA : TRAUMA [id number] / / Description:hardware set Esthela Trauma 2.7 Lock Screw 14mm Implanted:Qty: 1 on 11/27/2019 by Donavan Ramirez Jr., MD [place] [facility] Right: Ankle ESTHELA : TRAUMA [id number] / / Esthela Trauma 3.5 Screw 14mm Implanted:Qty: 1 on 11/27/2019 by Donavan Ramirez Jr., MD at [place] [facility] Right: Ankle ESTHELA : TRAUMA [id number] / / Description:hardware set Esthela Trauma 3.5 Screw 18mm Implanted:Qty: 1 on 11/27/2019 by Donavan Ramirez Jr., MD at [place] [facility] Right: Ankle ESTHELA : TRAUMA [id number] / / Description:hardware set Esthela 3.5 Lockscrew 16mm Implanted:Qty: 1 on 11/27/2019 by Donavan Ramirez Jr., MD at [place] [facility] Right: Ankle [id number] / / [place] 2.0 Plate Implanted:Qty: 1 on 11/27/2019 by Donavan Ramirez Jr., MD at [place] [facility] Right: Ankle [id number] / / [place] 2.0 Lock Screw Implanted:Qty: 2 on 11/27/2019 by Donavan Ramirez Jr., MD [place] [facility] Right: Ankle [id number] / / Esthela 2.0 Lock Screw Implanted:Qty: 1 on 11/27/2019 by Donavan Ramirez Jr., MD [place] [facility] Right: Ankle [id number] / / Esthela 2.0 Lock Screw Implanted:Qty: 1 on 11/27/2019 by Donavan Ramirez Jr., MD [place] [facility] Right: Ankle [id number] / / Plate Fib 5h 40- - [id number] Implanted:Qty: 1 on 11/27/2019 by Donavan Ramirez Jr., MD [place] [facility] Right: Ankle ESTHELA : TRAUMA / / [...] the patient have Health Care Power of Title I Instructional Assistant? No Full Code 02/17/2019 12:06 PM 02/18/2019 1:09 PM This order reflects the patients wishes and were consensually agreed upon. Question Answer Comments Discussion of Advance Directives occurred with: Not Discussed Does the patient have a Living Will? No Does the patient have Health Care Power of Title I Instructional Assistant? No Full Code 04/15/2018 12:43 PM 04/16/2018 2:43 PM This order reflects the patients wishes and were consensually agreed upon. Care Teams Report Manager Relationship Specialty Start Date End Date Buster Jessica MD [address] [place] [phone] PCP - General Family Medicine 09/11/22 documented as of this encounter
--- OUTSIDE RECORDS SUMMARY | 2023-12-11 18:54 | External Medical Summary | Summary of Care ---
Author Name Unknown Organization [facility] Address [address] [place] [address] Phone [phone] Care Team Providers Care Dust Collector Treater Name Role Phone Buster Jessica MD Primary Care P rovider Reason for Visit * Reason Onset Date Comments Other 10/13/2023 Encounter Details Date Type Department Care Team ([facility] st Contact Info) Description 10/13/[address] [phone] Buster Jessica MD [address] [place] [phone] Other Allergies Active Allergy Reactions Criticality Noted Date Comments Atorvastatin Muscle pain,Unknown 01/18/2015 Medication intolerance, not an allergy Sacubitril-Valsartan Other (Please comment) 09/17/2020 Throat swelled Sacubitril High 07/20/2023 Other Reaction(s): THROAT SWELLING Simvastatin Low 06/23/2022 Other reaction(s): MUSCLE ACHES Valsartan High 07/20/2023 Other Reaction(s): THROAT SWELLING documented as of this encounter (statuses as of 10/13/2023) Medications Medication Sig Dispensed Refills Start Date End Date Status Torsemide 100 MG Oral Tablet (Demadex)Indications :Heart failure, systolic, due to CAD ([facility] ReleaseIndications:H TN, goal below 140/90,Paroxysmal atrial fibrillation ([facility] [...] Oral Tablet (pLAVix)Indications: PAD (peripheral artery disease) ([facility]),Coronary artery disease involving [place] coronary artery of [place] heart without angina pectoris TAKE ONE TABLET BY MOUTH ONCE DAILY 90 Tablet 3 03/13/2023 Active Albuterol Sulfate (2.5 MG/3ML) 0.083% Inhalation Nebulization Solution (Proventil)Indicatio ns:COPD, group D, by GOLD 2017 classification ([facility] [...] Oral Tablet (Cozaar)Indications: PAD (peripheral artery disease) ([facility]),Coronary artery disease involving [place] coronary [...] 24 Hour (Toprol XL)Indications:Persi stent atrial fibrillation ([facility]),Acute on chronic [...] :Moderate episode of recurrent major depressive disorder ([facility]) Take 1 Tablet by mouth in the morning. 30 Tablet 1 09/06/2023 Active Fluticasone-Salmeter ol 250-50 MCG/ACT Inhalation Aerosol Powder Breath Activated (Wixela Inhub)Indications:CO PD, group D, by GOLD 2017 classification ([facility]) Inhale 1 Puff by mouth in the morning and 1 Puff before bedtime. 60 Each 12 09/06/2023 Active Naloxone HCl 4 MG/0.1ML Nasal Liquid (Narcan Nasal) Administer 1 spray into 1 nostril for suspected opioid overdose. Seek immediate medical attention. [email or web address]?[email or web address] 1 Each 3 09/15/2023 Active Additional Information [...] extra doses as directed 0 10/12/2023 Active oxyCODONE HCl 7.5 MG Oral TabletIndications:Ch ronic bilateral low back pain without sciatica Take 1 Tablet by mouth every 6 hours as needed for Pain, Severe. 28 Tablet 0 10/12/2023 Active hydrOXYzine HCl 25 MG Oral TabletIndications:In somnia due to medical condition Take 0.5 Tablets by mouth at bedtime as needed for Other (sleep). 30 Tablet 1 10/12/2023 Active documented as of this encounter (statuses as of 10/13/2023) Active Problems Problem Noted Date Diagnosed Date [...] emphysema 09/22/2021 Atherosclerotic heart diseas e of [place] [...] untreated, BMI 43.71 kg/m, NECK: 21 inches, [place] 6/24, sent for bipap titration study 01/11/11 case per [facility] completed ICD-10 update of inactive term BMI 35-39 ISOLATED (SEE ACTUAL BMI) 01/17/2010 Overview: Per Obesity Protocol, #19 BPH without obstruction/lower urinary tract symp toms 08/19/2009 Dyslipidemia, goal LDL below 70 07/21/2009 Overview: Per Lipid Taxonomy. documented as of this encounter (statuses as of 10/13/2023) Resolved Problems Problem Noted Date Diagnosed Date [...] 09/23/201305/17 Claudication 05/13/2013 10/12/2023 [employer] Other*[id number] 04/23/2012 09/12/2016 Overview: Study Title: Genomic Markers for Patients with Cardiovascular Disease Project # [id number] Sizing Machine Operator: Comfort Aviles MD [phone] Impotence of organic origin 02/16/2011 01/10/2018 Shortness [...] as of this encounter (statuses as of 10/13/2023) Immunizations Name Administration Dates Next Due COVID-19 [...] do you have serious difficulty h earing? No-KNIK 11/14/2019 Are you blind or do you [...] encounter Miscellaneous Notes * Telephone Encounter - Sarita Huerta LPN [...] Please advise. Thank you, Rehana Keys CPhT Miller Supervisor II [facility] ([facility]) (Formerly Telepharmacy) 10/13/2023,8:56 AM documented in this encounter Plan of Treatment Upcoming Encounters Date Type Department Care Team ([facility] Contact Info) Description 10/16/2023 11:30 AM EDT Office Visit Podiatry [address] [place] [phone] Willard Mejia, SLIM [address] [place] [address] 10/19/2023 12:30 PM EDT Home Visit [facility] [address] [place] [address] Mayra Moyer, CLARENCE [address] [place] [address] 10/19/2023 2:50 PM EDT Office Visit [address] [phone] Buster Jessica MD [address] [place] [address] 10/26/2023 1:30 PM EDT Office Visit [address] [phone] Buster Jessica MD [address] [place] [address] 10/29/2023 2:30 PM EDT Imaging Radiology [facility]st [facility] [address] [place] [address] 10/29/2023 3:00 PM EDT Office Visit Pulmonary Medicine, [facility] [address] [place] [address] Ej Noble MD [address] [place] [address] 11/01/2023 1:30 PM EDT Telemedicine [facility] [place] [facility] [address] [place] [address] Grisel Richter CRNP [address] [place] [address] Clary Eastman, Community Health Irrigator [employer] [address] [place] [address] 11/21/2023 10:55 AM EDT Hospital Encounter [facility], Operating Room [facility] [address] [place] [phone] Freeman Beaulieu, [address] [place] [address] 11/21/2023 10:55 AM EDT - 11/21/2023 11:20 AM EDT Surgery [facility], Operating Room [facility] [address] [place] [phone] Freeman Beaulieu DO [address] [place] [phone] INJECTION SACROILIAC JOINT 04/22/2024 9:30 AM EDT Cardiac Studies Cardiology, [facility] [address] [place] [address] Fredy Shaw [address] [place] [address] 05/19/2024 9:30 AM EDT Appointment Radiology, [facility] [address] [place] [address] Scheduled Procedures Name Priority Associated [...] exists DISCUSS TOBACCO CESSATION (REFER TO SMARTSET #4005) 06/02/2023 06/02/2022, 07/21/2020 Depression, Most Recent Score [...] 09/10/2008 LUNG CANCER SCREENING - USE SMARTSET 00679 Completed 08/22/2022, 05/22/2022, 02/21/2021, Additional history exists [...] this encounter Medical Devices Implanted Type Area Principal Administrative Clerk Device Identifier Shelf Expiration Date Model / Serial / Lot 32mm X 109mm, Zenith Fenestrated Aaa Endovascular Proximal Body Graft, Two Proximal Internal Stent Implanted:Qty: 1 on 04/15/2018 by Evens Hoyt MD [place] [facility] [place]/A: Aorta [employer] [employer] 03/20/2021 ZFEN-P-2- 32-109-R / / [id number] Stent Graft [id number] - [id number] - [id number] Implanted:Qty: 1 on 04/15/2018 by Evens Hoyt MD [place] [facility] Right: Renal Artery GETINGE : MAQUET 11/30/2020 37120 / [id number] / [id number] Stent Graft [id number] - [id number] - [id number] Implanted:Qty: 1 on 04/15/2018 by Evens Hoyt MD [place] [facility] Right: Renal Artery GETINGE : MAQUET 11/30/2020 58463 / [id number] / [id number] 28mm X 76mm Distal, 12mm Ipsilateral Leg, Zenith Fenestrated Aaa Endovascular Distal Bifurcated Body Graft Implanted:Qty: 1 on 04/15/2018 by Evens Hoyt MD [place] [facility] N/A: Aorta [employer] 03/20/2021 ZFKEDAR-D-12 -28-76-C / / [id number] Graft Iliac Leg Spirlz [id number] - [id number] Implanted:Qty: 1 on 04/15/2018 by Evens Hoyt MD [place] [facility] Left: Iliac [employer] 09/14/2020 [id number] / / [id number] Graft Iliac Leg Spirlz 96l80qm - [id number] Implanted:Qty: 1 on 04/15/2018 by Evens Hoyt MD [place] [facility] Right: Iliac [employer] 11/09/2020 [id number] / / [id number] Transfixation Pin 6mm 294.950 - [id number] Implanted:Qty: 1 on 11/14/2019 by Mayank Friedman MD at OR [facility] Right: Ankle SYNTHES 294.950 / / Description:transfixation pi n Screw Schanz 5.0qpo668zq - [id number] Implanted:Qty: 2 on 11/14/2019 by Mayank Friedman MD at OR [facility] Right: Leg Lower SYNTHES 294.786SH A / / Description:self drilling sh antz screws 5.0mm x 200mm Esthela Trauma 2.7 Lock Screw 16mm Implanted:Qty: 2 on 11/27/2019 by Donavan Ramirez Jr., MD [place] [facility] Right: Ankle ESTHELA : TRAUMA [id number] / / Description:hardware set [place]hela Trauma 2.7 Lock Screw 14mm Implanted:Qty: 1 on 11/27/2019 by Donavan Ramirez Jr., MD [place] [facility] Right: Ankle ESTHELA : TRAUMA [id number] / / [place] Trauma 3.5 Screw 14mm Implanted:Qty: 1 on 11/27/2019 by Donavan Ramirez Jr., MD [place] [facility] Right: Ankle ESTHELA : TRAUMA [id number] / / Description:hardware set Esthela Trauma 3.5 Screw 18mm Implanted:Qty: 1 on 11/27/2019 by Donavan Ramirez Jr., MD [place] [facility] Right: Ankle ESTHELA : TRAUMA [id number] / / Description:hardware set Esthela 3.5 Lockscrew 16mm Implanted:Qty: 1 on 11/27/2019 by Donavan Ramirez Jr., MD [place] [facility] Right: Ankle 240960 / / [place] 2.0 Plate Implanted:Qty: 1 on 11/27/2019 by Donavan Ramirez Jr., MD at [facility] Right: Ankle [id number] / / [place]hela 2.0 Lock Screw Implanted:Qty: 2 on 11/27/2019 by Donavan Ramirez Jr., MD [place] [facility] Right: Ankle [id number] / / [place]a 2.0 Lock Screw Implanted:Qty: 1 on 11/27/2019 by Donavan Ramirez Jr., MD [place] [facility] Right: Ankle [id number] / / [place] 2.0 Lock Screw Implanted:Qty: 1 on 11/27/2019 by Donavan Ramirez Jr., MD [place] [facility] Right: Ankle 494999 / / Plate Fib 5h - [id number] Implanted:Qty: 1 on 11/27/2019 by Donavan Ramirez Jr., MD [place] [facility] Right: Ankle ESTHELA : TRAUMA / / [...] the patient have Health Care Power of Shorthand Teacher? No Full Code 02/17/2019 12:06 PM 02/18/2019 1:09 PM This order reflects the patients wishes and were consensually agreed upon. Question Answer Comments Discussion of Advance Directives occurred with: Not Discussed Does the patient have a Living Will? No Does the patient have Health Care Power of Shorthand Teacher? No Full Code 04/15/2018 12:43 PM 04/16/2018 2:43 PM This order reflects the patients wishes and were consensually agreed upon. Care Teams Dust Collector Treater Relationship Specialty Start Date End Date Buster Jessica MD [address] [place] [address] PCP - General Family Medicine 09/11/22 documented as of this encounter
--- OUTSIDE RECORDS SUMMARY | 2023-12-11 18:54 | External Medical Summary | Summary of Care ---
Author Name Unknown Organization [facility] Address [address] [place] [address] Phone [phone] Care Team Providers Care Assembler Deck And Hull Name Role Phone Buster Jessica MD Primary Care P rovider Reason for Visit * Reason Comments Outpatient Testing Encounter Details Date Type Department Care Team (Late st Contact Info) Description 10/19/2023 4:10 PM EDT Laboratory Laboratory Patient Service [address] [phone] [address] Arrived Allergies Active Allergy Reactions Criticality Noted [...] due to CAD ([facility]) Take 1 tablet by mouth [...] goal below 140/90,Paroxysmal atrial fibrillation ([facility]),LBBB (left bundle branch block) TAKE [...] (pLAVix)Indications: PAD (peripheral artery disease) ([facility]),Coronary artery disease involving shoshone-bannock coronary artery of shoshone-bannock heart without angina pectoris TAKE ONE TABLET [...] Oral Tablet (Aldactone)Indicatio ns:Coronary artery disease involving shoshone-bannock coronary artery of shoshone-bannock heart without angina pectoris,Heart failure, systolic, due to CAD ([facility]),Chronic ischemic heart disease,HTN, goal below 140/90 TAKE ONE TABLET BY MOUTH ONCE DAILY 90 Tablet 3 05/14/2023 Active Losartan Potassium 25 MG Oral Tablet (Cozaar)Indications: PAD (peripheral artery disease) ([facility]),Coronary artery disease involving shoshone-bannock coronary artery of shoshone-bannock heart without angina pectoris TAKE ONE TABLET [...] due to CAD ([facility]),Dyslipidemia, goal LDL below 70,Chronic ischemic heart disease,Tobacco use disorder,Coronary artery disease involving shoshone-bannock coronary artery of shoshone-bannock heart without angina pectoris Inject 140 mg (1 pen) under the skin every 14 days. 6 mL 3 07/02/2023 Active Metoprolol Succinate ER 50 MG Oral Tablet Extended Release 24 Hour (Toprol XL)Indications:Persi stent atrial fibrillation ([facility]),Acute on chronic systolic (congestive) heart failure ([facility]) One tablet by mouth daily [...] 2017 classification ([facility]) Take 1 Capsule by mouth 3 times a day as needed for Cough. 30 Capsule 3 08/29/2023 Active ARIPiprazole 2 MG Oral Tablet (Abilify)Indications :Moderate episode of recurrent major depressive disorder ([facility]) Take 1 Tablet by mouth [...] suspected opioid overdose. Seek immediate medical attention. [email or web address] 1 Each 3 09/15/2023 Active Tamsulosin HCl [...] emphysema 09/22/2021 Atherosclerotic heart diseas e of shoshone-bannock coronary artery with other forms of angina [...] untreated, BMI 43.71 kg/m, NECK: 21 inches, [place] 6/24, sent for bipap titration study 01/11/11 case per [facility] completed ICD-10 update of inactive [...] 11/22/2020 10/12/2023 Coronary artery disease invo lving shoshone-bannock coronary artery of shoshone-bannock heart without angina pectoris 07/06/2020 10/12/2023 Chronic [...] 09/23/201305/17 Claudication 05/13/2013 10/12/2023 [employer] Other*[id number] 04/23/2012 09/12/2016 Overview: Study Title: Genomic Markers for Patients with Cardiovascular Disease Project # [id number] Manager Ed: Comfort Aviles MD [phone] Impotence of organic origin 02/16/2011 01/10/2018 Shortness [...] do you have serious difficulty h earing? No-[place] 11/14/2019 Are you blind or do you [...] Description 10/24/2023 12:30 PM EDT Home Visit [facility] [place] [address] [place] [address], [place] [address] Lisa Tenorio, RN [address] [place] [address] 10/29/2023 2:30 PM EDT Imaging Radiology [facility] 1st [facility] [address] [facility] [place] [address] 10/29/2023 3:00 PM EDT Office Visit Pulmonary Medicine, [facility] [address] [facility] [place] [address] Ej Noble MD [address] [facility] [place] [address] 10/31/2023 11:10 AM EDT Office Visit [facility] [address] [place] [phone] Buster Jessica MD [address] [place] [address] 11/01/2023 1:30 PM EDT Telemedicine [facility] [place] [address] [place] [address] Grisel Richter CRNP [address] [place] [address] Clary Eastman, Community Health Antenna Design Engineer [facility] [place] [address] 11/21/2023 10:55 AM EDT Hospital Encounter [facility], Operating Room [facility] [address] [facility] [place] [phone] Freeman Beaulieu DO 132 [facility] [place] [phone] 11/21/2023 10:55 AM EDT - 11/21/2023 11:20 AM EDT Surgery [facility], Operating Room [facility] [address] [place] [phone] Freeman Beaulieu, DO [address] [place] [phone] INJECTION SACROILIAC JOINT 01/15/2024 10:40 AM EDT Office Visit [facility] [address] [place] [phone] Clair Quarles, DO [address] [place] [address] 04/22/2024 9:30 AM EDT Cardiac Studies Cardiology, [facility] [address] [place] [address] [facility] [address] [place] [address] 05/19/2024 9:30 AM EDT Appointment Radiology, [address] [address] Scheduled Procedures Name Priority Associated [...] exists DISCUSS TOBACCO CESSATION (REFER TO SMARTSET #5722) 06/02/2023 06/02/2022, 07/21/2020 Depression, Most Recent Score [...] 09/10/2008 LUNG CANCER SCREENING - USE SMARTSET 84731 Completed 08/22/2022, 05/22/2022, 02/21/2021, Additional history exists [...] this encounter Medical Devices Implanted Type Area Sql Engineer Device Identifier Shelf Expiration Date Model / Serial / Lot 32mm X 109mm, Zenith Fenestrated Aaa Endovascular Proximal Body Graft, Two Proximal Internal Stent Implanted:Qty: 1 on 04/15/2018 by Evens Hoyt MD at OR [facility] N/A: Aorta [employer] 03/20/2021 ZFEN-P-2- 32-109-R / / [id number] Stent Graft [id number] - [id number] - [id number] Implanted:Qty: 1 on 04/15/2018 by Evens Hoyt MD at OR [facility] Right: Renal Artery GETINGE : GENET 11/30/2020 93317 / [id number] / [id number] Stent Graft [id number] [id number] - [id number] - [id number] Implanted:Qty: 1 on 04/15/2018 by Evens Hoyt MD at OR [facility] Right: Renal Artery GETINGE : MAQUET 11/30/2020 54013 / [id number] / [id number] 28mm X 76mm Distal, 12mm Ipsilateral Leg, Zenith Fenestrated Aaa Endovascular Distal Bifurcated Body Graft Implanted:Qty: 1 on 04/15/2018 by Evens Hoyt MD at OR [facility] N/A: Aorta [employer] 03/20/2021 ZFEN-D-12 -28-76-C / / [id number] Graft Iliac Leg Spirlz 44q36kg - [id number] Implanted:Qty: 1 on 04/15/2018 by Evens Hoyt MD at OR [facility] Left: Iliac [employer] 09/14/2020 [id number] / / [id number] Graft Iliac Leg Spirlz [id number] - [id number] Implanted:Qty: 1 on 04/15/2018 by Evens Hoyt MD at OR [facility] Right: Iliac [employer] 11/09/2020 [id number] / / [id number] Transfixation Pin 6mm 294.950 - [id number] Implanted:Qty: 1 on 11/14/2019 by Mayank Friedman MD at OR [facility] Right: Ankle SYNTHES 294.950 / / Description:transfixation pi n Screw Schanz 5.0uav591su - [id number] Implanted:Qty: 2 on 11/14/2019 by Mayank Friedman MD at OR [facility] Right: Leg Lower SYNTHES 294.786SH A / / Description:self drilling sh antz screws 5.0mm x 200mm Esthela Trauma 2.7 Lock Screw 16mm Implanted:Qty: 2 on 11/27/2019 by Donavan Ramirez Jr., MD at OR [facility] Right: Ankle ESTHELA : TRAUMA [id number] / / Description:hardware set [place] Trauma 2.7 Lock Screw 14mm Implanted:Qty: 1 on 11/27/2019 by Donavan Ramirez Jr., MD at OR [facility] Right: Ankle ESTHELA : TRAUMA [id number] / / [place] Trauma 3.5 Screw 14mm Implanted:Qty: 1 on 11/27/2019 by Donavan Ramirez Jr., MD at OR [facility] Right: Ankle ESTHELA : TRAUMA [id number] / / Description:hardware set [place] Trauma 3.5 Screw 18mm Implanted:Qty: 1 on 11/27/2019 by Donavan Ramirez Jr., MD at OR [facility] Right: Ankle ESTHELA : TRAUMA [id number] / / Description:hardware set [place] 3.5 Lockscrew 16mm Implanted:Qty: 1 on 11/27/2019 by Donavan Ramirez Jr., MD at OR [facility] Right: Ankle [id number] / / [place]hela 2.0 Plate Implanted:Qty: 1 on 11/27/2019 by Donavan Ramirez Jr., MD at OR [facility] Right: Ankle [id number] / / [place]hel[place] 2.0 Lock Screw Implanted:Qty: 2 on 11/27/2019 by Donavan Ramirez Jr., MD at [facility] Right: Ankle [id number] / / [place] 2.0 Lock Screw Implanted:Qty: 1 on 11/27/2019 by Donavan Ramirez Jr., MD at OR [facility] Right: Ankle [id number] / / [place]hela 2.0 Lock Screw Implanted:Qty: 1 on 11/27/2019 by Donavan Ramirez Jr., MD at OR [facility] Right: Ankle 229348 / / Plate Fib 5h - [id number] Implanted:Qty: 1 on 11/27/2019 by Donavan Ramirez Jr., MD at OR [facility] Right: Ankle ESTHELA : TRAUMA / / [...] patient have Health Care Power of Supervisor Cigar Processing? No Full Code 02/17/2019 12:06 PM 02/18/2019 1:09 PM This order reflects the patients wishes and were consensually agreed upon. Question Answer Comments Discussion of Advance Directives occurred with: Not Discussed Does the patient have a Living Will? No Does the patient have Health Care Power of Supervisor Cigar Processing? No Full Code 04/15/2018 12:43 PM 04/16/2018 2:43 PM This order reflects the patients wishes and were consensually agreed upon. Care Teams Assembler Deck And Hull Relationship Specialty Start Date End Date Buster Jessica MD [address] [place] [address] PCP - General Family Medicine 09/11/22 documented as of this encounter
--- OUTSIDE RECORDS SUMMARY | 2023-12-11 18:54 | External Medical Summary | Summary of Care ---
Author Name Unknown Organization [facility] Address [address] [place] [address] Phone [phone] Care Team Providers Care Pest Control Service Technician Name Role Phone Buster Jessica MD Primary Care P rovider Reason for Visit * Reason Onset Date Comments Other 10/13/2023 Encounter Details Date Type Department Care Team ([facility] st Contact Info) Description 10/13/[address] [phone] Buster Jessica MD [address] [place] [phone] Other Allergies Active Allergy Reactions Criticality [...] :Heart failure, systolic, due to CAD ([facility]) Take 1 tablet by mouth [...] [place], goal below 140/90,Paroxysmal atrial fibrillation ([facility]),LBBB (left bundle branch block) TAKE [...] ([facility]),Coronary artery disease involving [place] coronary artery [...] ([facility]),Coronary artery disease involving [place] coronary artery [...] GOLD 2017 classification ([facility]) Take 1 Capsule by mouth [...] suspected opioid overdose. Seek immediate medical attention. [email or web address] 1 Each 3 09/15/2023 Active Additional Information [...] emphysema 09/22/2021 Atherosclerotic heart diseas e of crooked [...] for bipap titration study 01/11/11 case per [facility] completed ICD-10 update of inactive [...] 09/23/201305/17 Claudication 05/13/2013 10/12/2023 [employer] Other*[id number] 04/23/2012 09/12/2016 Overview: Study Title: Genomic Markers for Patients with Cardiovascular Disease Project # [id number] Laboratory Director: Comfort Aviles MD [phone] Impotence of organic origin 02/16/2011 01/10/2018 Shortness [...] do you have serious difficulty h earing? No-METLAKATLA 11/14/2019 Are you blind or do you [...] Miscellaneous Notes * Telephone Encounter - Emmy Keys, [facility] - 10/13/2023 11:30 AM EST I did verify the name of the medication when [facility] reached out and the caller did verify the name as Oxaydo. Any questions or concerns caller can be reached at [phone]. Thank you, Rehana Keys CPhT Accreditation Manager II [facility] ([facility]) (Formerly [...] Please advise. Thank you, Rehana Keys CPhT Accreditation Manager II [facility] ([facility]) (Formerly Telepharmacy) 10/13/2023,8:56 AM documented in this encounter Plan of Treatment Upcoming Encounters Date Type Department Care Team (Late st Contact Info) Description 10/16/2023 11:30 AM EDT Office Visit Podiatry [address] [place] [phone] Willard Mejia, SLIM [address] [place] [address] 10/19/2023 12:30 PM EDT Home Visit [facility], [facility] [address] [place] [address] Mayra Moyer, [place] [address] [place] [address] 10/19/2023 2:50 PM EDT Office Visit [facility] [address] [place] [phone] Buster Jessica MD [address] [place] [address] 10/26/2023 1:30 PM EDT Office Visit [facility] [address] [place] [phone] Buster Jessica MD [address] [place] [address] 10/29/2023 2:30 PM EDT Imaging Radiology [address] [place] [address] 10/29/2023 3:00 PM EDT Office Visit Pulmonary Medicine, [facility] 132 [place] [address] Ej Noble MD [address] [place] [address] 11/01/2023 1:30 PM EDT Telemedicine [facility] [place] [address] [place] [address] Grisel Richter CRNP [address] [place] [address] Clary Eastman, Community Health Blind Teacher [address] [place] [address] 11/21/2023 10:55 AM EDT Hospital Encounter [facility], Operating Room [facility] 132 [facility] [place] [phone] Freeman Beaulieu DO 132 [facility] [place] [phone] 11/21/2023 10:55 AM EDT - 11/21/2023 11:20 AM EDT Surgery OR [facility], Operating Room [facility] [address] [place] [address] Freeman Beaulieu DO [address] [place] [phone] INJECTION SACROILIAC JOINT 04/22/2024 9:30 AM EDT Cardiac Studies Cardiology, [facility] [address] [place] [address] Moveliezer Pacer [facility] [address] [place] [address] 05/19/2024 9:30 AM EDT Appointment Radiology, [address] [address] Scheduled Procedures Name Priority Associated [...] exists DISCUSS TOBACCO CESSATION (REFER TO SMARTSET #5601) 06/02/2023 06/02/2022, 07/21/2020 Depression, Most Recent Score [...] 09/10/2008 LUNG CANCER SCREENING - USE SMARTSET 08488 Completed 08/22/2022, 05/22/2022, 02/21/2021, Additional history exists [...] this encounter Medical Devices Implanted Type Area Paint Striping Machine Operator Device Identifier Shelf Expiration Date Model / Serial / Lot 32mm X 109mm, Zenith Fenestrated Aaa Endovascular Proximal Body Graft, Two Proximal Internal Stent Implanted:Qty: 1 on 04/15/2018 by Evens Hoyt MD at OR [facility] N/A: Aorta [employer] 03/20/2021 ZFEN-P-2- 32-109-R / / [id number] Stent Graft [id number] - [id number] - [id number] Implanted:Qty: 1 on 04/15/2018 by Evens Hoyt MD at OR [facility] Right: Renal Artery GETINGE : JULIANNE 11/30/2020 87877 / [id number] / [id number] Stent Graft [id number] - [id number] - [id number] Implanted:Qty: 1 on 04/15/2018 by Evens Hoyt MD at OR [facility] Right: Renal Artery GETINGE : JULIANNE 11/30/2020 68516 / [id number] / [id number] 28mm X 76mm Distal, 12mm Ipsilateral Leg, Zenith Fenestrated Aaa Endovascular Distal Bifurcated Body Graft Implanted:Qty: 1 on 04/15/2018 by Evens Hoyt MD at OR [facility] N/A: Aorta [employer] 03/20/2021 ZFEN-D-12 -28-76-C / / [id number] Graft Iliac Leg Spirlz 68e78oz - [id number] Implanted:Qty: 1 on 04/15/2018 by Evens Hoyt MD at OR [facility] Left: Iliac [employer] 09/14/2020 [id number] / / [id number] Graft Iliac Leg Spirlz 84z70ut - [id number] Implanted:Qty: 1 on 04/15/2018 by Evens Hoyt MD at OR [facility] Right: Iliac [employer] 11/09/2020 [id number] / / [id number] Transfixation Pin 6mm 294.950 - [id number] Implanted:Qty: 1 on 11/14/2019 by Mayank Friedman MD at OR [facility] Right: Ankle SYNTHES 294.950 / / Description:transfixation pi n Screw Schanz 5.7ipd485df - [id number] Implanted:Qty: 2 on 11/14/2019 by Mayank Friedman MD at OR [facility] Right: Leg Lower SYNTHES 294.786SH A / / Description:self drilling sh antz screws 5.0mm x 200mm [place] Trauma 2.7 Lock Screw 16mm Implanted:Qty: 2 on 11/27/2019 by Donavan Ramirez Jr., MD at OR [facility] Right: Ankle ESTHELA : TRAUMA [id number] / / Description:hardware set [place] Trauma 2.7 Lock Screw 14mm Implanted:Qty: 1 on 11/27/2019 by oDnavan Ramirez Jr., MD at OR [facility] Right: Ankle ESTHELA : TRAUMA [id number] / / [place] Trauma 3.5 Screw 14mm Implanted:Qty: 1 on 11/27/2019 by Donavan Ramirez Jr., MD at OR [facility] Right: Ankle ESTHELA : TRAUMA [id number] / / Description:hardware set [place] Trauma 3.5 Screw 18mm Implanted:Qty: 1 on 11/27/2019 by Donavan Ramirez Jr., MD at OR [facility] Right: Ankle ESTHELA : TRAUMA [id number] / / Description:hardware set [place] 3.5 Lockscrew 16mm Implanted:Qty: 1 on 11/27/2019 by Donavan Ramirez Jr., MD at OR [facility] Right: Ankle [id number] / / [place] 2.0 Plate Implanted:Qty: 1 on 11/27/2019 by Donavan Ramirez Jr., MD at OR [facility] Right: Ankle [id number] / / [place] 2.0 Lock Screw Implanted:Qty: 2 on 11/27/2019 by Donavan Ramirez Jr., MD at OR [facility] Right: Ankle [id number] / / [place] 2.0 Lock Screw Implanted:Qty: 1 on 11/27/2019 by Donavan Ramirez Jr., MD at OR [facility] Right: Ankle [id number] / / [place] 2.0 Lock Screw Implanted:Qty: 1 on 11/27/2019 by Donavan Ramirez Jr., MD at OR [facility] Right: Ankle 609854 / / Plate Fib 5h - - [id number] Implanted:Qty: 1 on 11/27/2019 by Donavan Ramirez Jr., MD at OR [facility] Right: Ankle ESTHELA : TRAUMA [...] the patient have Health Care Power of School Superintendent? No Full Code 02/17/2019 12:06 PM 02/18/2019 1:09 PM This order reflects the patients wishes and were consensually agreed upon. Question Answer Comments Discussion of Advance Directives occurred with: Not Discussed Does the patient have a Living Will? No Does the patient have Health Care Power of School Superintendent? No Full Code 04/15/2018 12:43 PM 04/16/2018 2:43 PM This order reflects the patients wishes and were consensually agreed upon. Care Teams Pest Control Service Technician Relationship Specialty Start Date End Date Buster Jessica MD [address] [place] [address] PCP - General Family Medicine 09/11/22 documented as of this encounter
--- OUTSIDE RECORDS SUMMARY | 2023-12-11 18:54 | External Medical Summary | Summary of Care ---
Author Name Unknown Organization [facility] Address [address] [place] [address] Phone [phone] Care Team Providers Care Multi Disciplined Language Analyst Name Role Phone Buster Jessica MD Primary Care P rovider Reason for Visit * Reason Onset Date Comments Other 10/13/2023 Encounter Details Date Type Department Care Team ([facility] st Contact Info) Description 10/13/[address] [phone] Buster Jessica MD [address] [place] [phone] Other Allergies Active Allergy Reactions Criticality [...] :Heart failure, systolic, due to CAD ([facility] [...] [place], goal below 140/90,Paroxysmal atrial fibrillation ([facility]),LBBB (left bundle branch block) TAKE 2 TABLETS BY MOUTH ONCE DAILY IN THE MORNING AND ONE TAB IN THE EVENING 270 Tablet 3 02/07/2023 Active Metoprolol Succinate ER 100 MG Oral Tablet Extended Release 24 Hour (toPROL XL) TAKE ONE TABLET BY MOUTH ONCE DAILY 90 Tablet 3 03/08/2023 Active Clopidogrel Bisulfate 75 MG Oral Tablet (pLAVix)Indications: PAD (peripheral artery disease) ([facility]),Coronary artery disease involving circle coronary artery of circle heart without angina pectoris TAKE ONE TABLET [...] Oral Tablet (Aldactone)Indicatio ns:Coronary artery disease involving circle coronary artery of circle heart without angina pectoris,Heart failure, systolic, due to CAD ([facility]),Chronic ischemic heart disease,HTN, goal below 140/90 TAKE ONE TABLET BY MOUTH ONCE DAILY 90 Tablet 3 05/14/2023 Active Losartan Potassium 25 MG Oral Tablet (Cozaar)Indications: PAD (peripheral artery disease) ([facility]),Coronary artery disease involving circle coronary artery of circle heart without angina pectoris TAKE ONE TABLET [...] apnea,Heart failure, systolic, due to CAD ([facility]),Dyslipidemia, goal LDL below 70,Chronic ischemic heart disease,Tobacco use disorder,Coronary artery disease involving circle coronary artery of circle heart without angina pectoris Inject 140 mg (1 pen) under the skin every 14 days. 6 mL 3 07/02/2023 Active Metoprolol Succinate ER 50 MG Oral Tablet Extended Release 24 Hour (Toprol XL)Indications:Persi stent atrial fibrillation ([facility]),Acute on chronic systolic (congestive) heart failure ([facility]) One tablet by mouth daily at bedtime, this is in addition to the previous prescription for 100 milligrams daily in the morning. 90 Tablet 3 08/23/2023 Active Digoxin 125 MCG Oral Tablet (Lanoxin) Take 1 Tablet by mouth in the morning. 90 Tablet 3 08/23/2023 Active Benzonatate 100 MG Oral CapsuleIndications:C OPD, group D, by GOLD 2017 classification ([facility]) Take 1 Capsule by mouth 3 times a day as needed for Cough. 30 Capsule 3 08/29/2023 Active ARIPiprazole 2 MG Oral Tablet (Abilify)Indications :Moderate episode of recurrent major depressive disorder ([facility]) Take 1 Tablet by mouth in the [...] suspected opioid overdose. Seek immediate medical attention. [email or web address]?v=v26c [email or web address] 1 Each 3 09/15/2023 Active Additional Information [...] emphysema 09/22/2021 Atherosclerotic heart diseas e of circle coronary artery with other forms of angina [...] untreated, BMI 43.71 kg/m, NECK: 21 inches, [facility] 6/24, sent for bipap titration study 01/11/11 case per [facility] completed ICD-10 update of inactive [...] 11/22/2020 10/12/2023 Coronary artery disease invo lving circle coronary artery of circle heart without angina pectoris 07/06/2020 10/12/2023 Chronic [...] 09/23/201305/17 Claudication 05/13/2013 10/12/2023 [employer] Other*[id number] 04/23/2012 09/12/2016 Overview: Study Title: Genomic Markers for Patients with Cardiovascular Disease Project # [id number] Green Ware Caster: Comfort Aviles MD [phone] Impotence of organic origin 02/16/2011 01/10/2018 Shortness [...] do you have serious difficulty h earing? No-[place] 11/14/2019 Are you blind or do you [...] or concerns caller can be reached at [phone]. Thank you, Rehana Keys CPhT [employer] ([facility]) (Formerly [...] Please advise. Thank you, Rehana Keys CPhT [employer] [facility] (Formerly Telepharmacy) 10/13/2023,8:56 AM documented in this encounter Plan of Treatment Upcoming Encounters Date Type Department Care Team (Late st Contact Info) Description 10/16/2023 11:30 AM EDT Office Visit Podiatry [facility], [address] [place] [address] Willard Mejia, SLIM [address] [place] [address] 10/19/2023 12:30 PM EDT Home Visit [facility], [facility] [address] [place] [address] Mayra Moyer, CLARENCE [address] [place] [address] 10/19/2023 2:50 PM EDT Office Visit [facility] [address] [place] [phone] Buster Jessica MD [address] [place] [address] 10/26/2023 1:30 PM EDT Office Visit [address] [phone] Buster Jessica MD [address] [place] [phone] 10/29/2023 2:30 PM EDT Imaging Radiology [facility] [address] [address] 10/29/2023 3:00 PM EDT Office Visit Pulmonary Medicine, [address] [address] Ej Noble MD [address] [place] [address] 11/01/2023 1:30 PM EDT Telemedicine [facility], [facility] [address] [place] [address] Grisel Richter CRNP [address] [place] [address] Clary Eastman, Community Health Work Measurement Engineer [address] [place] [address] 11/21/2023 10:55 AM EDT Hospital Encounter OR [facility], Operating Room [facility] [address] [place] [address] Freeman Beaulieu, DO [address] [place] [address] 11/21/2023 10:55 AM EDT - 11/21/2023 11:20 AM EDT Surgery OR [facility], Operating Room [facility] [address] [place] [address] Freeman Beaulieu, DO [address] [place] [phone] INJECTION SACROILIAC JOINT 04/22/2024 9:30 AM EDT Cardiac Studies Cardiology, [facility] [address] [place] [address] [facility] [address] [place] [address] 05/19/2024 9:30 AM EDT Appointment Radiology, [id number] [place] [address] Scheduled Procedures Name Priority Associated [...] exists DISCUSS TOBACCO CESSATION (REFER TO SMARTSET #7143) 06/02/2023 06/02/2022, 07/21/2020 Depression, Most Recent Score [...] 09/10/2008 LUNG CANCER SCREENING - USE SMARTSET 01330 Completed 08/22/2022, 05/22/2022, 02/21/2021, Additional history exists [...] this encounter Medical Devices Implanted Type Area School Office Assistant Device Identifier Shelf Expiration Date Model / Serial / Lot 32mm X 109mm, Zenith Fenestrated Aaa Endovascular Proximal Body Graft, Two Proximal Internal Stent Implanted:Qty: 1 on 04/15/2018 by Evens Hoyt MD at OR [facility] [place] N/A: Aorta [employer] 03/20/2021 ZFEN-P-2- 32-109-R / / [id number] Stent Graft [id number] - [id number] - [id number] Implanted:Qty: 1 on 04/15/2018 by Evens Hoyt MD at OR [facility] Right: Renal Artery GETINGE : GENET 11/30/2020 09205 / [id number] / [id number] Stent Graft [id number] - [id number] - [id number] Implanted:Qty: 1 on 04/15/2018 by Evens Hoyt MD at OR [facility] [place] Right: Renal Artery GETINGE : MAQUET 11/30/2020 93952 / [id number] / [id number] 28mm X 76mm Distal, 12mm Ipsilateral Leg, Zenith Fenestrated Aaa Endovascular Distal Bifurcated Body Graft Implanted:Qty: 1 on 04/15/2018 by Evens Hoyt MD at OR [facility] [place] N/A: Aorta [employer] 03/20/2021 ZFEN-D-12 -28-76-C / / [id number] Graft Iliac Leg Spirlz 60m41mm - [id number] Implanted:Qty: 1 on 04/15/2018 by Evens Hoyt MD at OR [facility] [place] Left: Iliac [employer] 09/14/2020 [id number] / / [id number] Graft Iliac Leg Spirlz 60q78zc - [id number] Implanted:Qty: 1 on 04/15/2018 by Evens Hoyt MD at OR [facility] Right: Iliac [employer] 11/09/2020 [id number] / / [id number] Transfixation Pin 6mm 294.950 - [id number] Implanted:Qty: 1 on 11/14/2019 by Mayank Friedman MD at OR [facility] Right: Ankle SYNTHES 294.950 / / Description:transfixation pi n Screw Schanz [id number] - [id number] Implanted:Qty: 2 on 11/14/2019 by Mayank Friedman MD at OR [facility] Right: Leg Lower SYNTHES 294.786SH A / / Description:self drilling sh antz screws 5.0mm x 200mm Esthela Trauma 2.7 Lock Screw 16mm Implanted:Qty: 2 on 11/27/2019 by Donavan Ramirez Jr., MD at OR [facility] Right: Ankle ESTHELA : TRAUMA [id number] / / Description:hardware set Esthela Trauma 2.7 Lock Screw 14mm Implanted:Qty: 1 on 11/27/2019 by oDnavan Ramirez Jr., MD at OR [facility] [place] Right: Ankle ESTHELA : TRAUMA [id number] / / Esthela Trauma 3.5 Screw 14mm Implanted:Qty: 1 on 11/27/2019 by Donavan Ramirez Jr., MD at OR [facility] Right: Ankle ESTHELA : TRAUMA [id number] / / Description:hardware set Pearl Trauma 3.5 Screw 18mm Implanted:Qty: 1 on 11/27/2019 by Donavan Ramirez Jr., MD at OR [facility] Right: Ankle ESTHELA : TRAUMA [id number] / / Description:hardware set Pearl 3.5 Lockscrew 16mm Implanted:Qty: 1 on 11/27/2019 by Donavan Ramirez Jr., MD at OR [facility] Right: Ankle 111559 / / Pearl 2.0 Plate Implanted:Qty: 1 on 11/27/2019 by Donavan Ramirez Jr., MD at OR [facility] [place] Right: Ankle [id number] / / Pearl 2.0 Lock Screw Implanted:Qty: 2 on 11/27/2019 by Donavan Ramirez Jr., MD at OR [facility] [place] Right: Ankle [id number] / / Pearl 2.0 Lock Screw Implanted:Qty: 1 on 11/27/2019 by Donavan Raimrez Jr., MD at OR [facility] Right: Ankle [id number] / / Pearl 2.0 Lock Screw Implanted:Qty: 1 on 11/27/2019 by Donavan Ramirez Jr., MD at OR [facility] Right: Ankle 994858 / / Plate Fib 5h - [id number] Implanted:Qty: 1 on 11/27/2019 by Donavan Ramirez Jr., MD at OR [facility] [place] Right: Ankle [...] the patient have Health Care Power of Hospital Unit Clerk? No Full Code 02/17/2019 12:06 PM 02/18/2019 1:09 PM This order reflects the patients wishes and were consensually agreed upon. Question Answer Comments Discussion of Advance Directives occurred with: Not Discussed Does the patient have a Living Will? No Does the patient have Health Care Power of Hospital Unit Clerk? No Full Code 04/15/2018 12:43 PM 04/16/2018 2:43 PM This order reflects the patients wishes and were consensually agreed upon. Care Teams Multi Disciplined Language Analyst Relationship Specialty Start Date End Date Buster Jessica MD [address] [place] [phone] PCP - General Family Medicine 09/11/22 documented as of this encounter
--- OUTSIDE RECORDS SUMMARY | 2023-12-11 18:54 | External Medical Summary ---
Author Name Unknown Address Unknown Organization K01:LABORATORY [facility] - [facility] [place] [address] [place] [address] Laboratory Report Ordering Provider Test Date Status HUMERA PATINO 10/19/2023 16:01:52 Final Observation Date Value Abnormality Reference (Units ) Status BUN 10/19/2023 16:01:52 45 Above high normal 6-20 (mg/dL) Final Creatinine 10/19/2023 16:01:52 1.6 Above high normal 0.6-1.2 (mg/dL) Final Glomerular filtration rate/1.73 sq M.predicted [Volume Rate/Area] in Serum, Plasma or Blood by Creatinine-based formula (CKD-EPI) 10/19/2023 16:01:52 44 Below low normal >=60 (mL/min) Final eGFR is calculated based on the CKD-EPI 2020 equation SODIUM 10/19/2023 16:01:52 138 135-146 (m mol/L) Final Potassium 10/19/2023 16:01:52 3.1 Below low normal 3.5 -5.1 (mmol/L) Final Cl 10/19/2023 16:01:52 91 Below low normal 98- 107 (mmol/L) Final CO2 10/19/2023 16:01:52 31 22-32 (mmo l/L) Final Anion gap 10/19/2023 16:01:52 16 Above high normal 7- 15 (mmol/L) Final Glucose 10/19/2023 16:01:52 157 Above high normal 70 -120 (mg/dL) Final Calcium 10/19/2023 16:01:52 9.3 8.4-10.2 ( mg/dL) Final Albumin 10/19/2023 16:01:52 4.3 3.8-5.0 (g /dL) Final Phosphate 10/19/2023 16:01:52 2.7 2.5-4.8 (m g/dL) Final Performing Location LAB[facility]ATORY [facility] - [address] [facility] [address]
--- OUTSIDE RECORDS SUMMARY | 2023-12-11 18:54 | External Medical Summary | Summary of Care ---
Author Name Unknown Organization [facility] Address [address] [place] [address] Phone [phone] Care Team Providers Care Form Carpenter Name Role Phone Buster Jessica MD Primary Care P rovider Reason for Visit * Reason Onset Date Comments Medication Problem 10/13/2023 Encounter Details Date Type Department Care Team ([facility] st Contact Info) Description 10/13/[address] [address] Buster Jessica MD [address] [place] [phone] Medication Problem Allergies Active Allergy Reactions [...] failure, systolic, due to CAD ([facility]) Take 1 tablet by mouth every [...] goal below 140/90,Paroxysmal atrial fibrillation ([facility]),LBBB (left bundle branch block) TAKE 2 [...] (pLAVix)Indications: PAD (peripheral artery disease) ([facility]),Coronary artery disease involving saxman coronary artery of saxman heart without angina pectoris TAKE ONE TABLET BY MOUTH ONCE DAILY 90 Tablet 3 03/13/2023 Active Albuterol Sulfate (2.5 MG/3ML) 0.083% Inhalation Nebulization Solution (Proventil)Indicatio ns:COPD, group D, by GOLD 2017 classification ([facility]) Inhale 1 Vial via nebulizer every 4 hours as needed for Wheezing. 75 mL 1 04/23/2023 Active Famotidine 20 MG Oral Tablet (Pepcid) TAKE 1 TABLET BY MOUTH TWICE DAILY (MORNING AND AT BEDTIME) 180 Tablet 3 04/30/2023 Active Spironolactone 25 MG Oral Tablet (Aldactone)Indicatio ns:Coronary artery disease involving saxman coronary artery of saxman heart without angina pectoris,Heart failure, systolic, due to CAD ([facility]),Chronic ischemic heart disease,HTN, goal below 140/90 TAKE ONE TABLET BY MOUTH ONCE DAILY 90 Tablet 3 05/14/2023 Active Losartan Potassium 25 MG Oral Tablet (Cozaar)Indications: PAD (peripheral artery disease) ([facility]),Coronary artery disease involving saxman coronary artery of saxman heart without angina pectoris TAKE ONE TABLET [...] failure, systolic, due to CAD ([facility]),Dyslipidemia, goal LDL below 70,Chronic ischemic heart disease,Tobacco use disorder,Coronary artery disease involving saxman coronary artery of saxman heart without angina pectoris Inject 140 mg (1 pen) under the skin every 14 days. 6 mL 3 07/02/2023 Active Metoprolol Succinate ER 50 MG Oral Tablet Extended Release 24 Hour (Toprol XL)Indications:Persi stent atrial fibrillation ([facility]),Acute on chronic systolic (congestive) heart failure ([facility]) One tablet by mouth daily at bedtime, this is in addition to the previous prescription for 100 milligrams daily in the morning. 90 Tablet 3 08/23/2023 Active Digoxin 125 MCG Oral Tablet (Lanoxin) Take 1 Tablet by mouth in the morning. 90 Tablet 3 08/23/2023 Active Benzonatate 100 MG Oral CapsuleIndications:C OPD, group D, by GOLD 2017 classification ([facility]) Take 1 Capsule by mouth 3 times a day as needed for Cough. 30 Capsule 3 08/29/2023 Active ARIPiprazole 2 MG Oral Tablet (Abilify)Indications :Moderate episode of recurrent major depressive disorder ([facility]) Take 1 Tablet by mouth in the morning. 30 Tablet 1 09/06/2023 Active Fluticasone-Salmeter ol 250-50 MCG/ACT Inhalation Aerosol Powder Breath Activated (Wixela Inhub)Indications:CO PD, group D, by GOLD 2017 classification ([facility]) Inhale 1 Puff by mouth in the morning and 1 Puff before bedtime. 60 Each 12 09/06/2023 Active Naloxone HCl 4 MG/0.1ML Nasal Liquid (Narcan Nasal) Administer 1 spray into 1 nostril for suspected opioid overdose. Seek immediate medical attention. [email or web address] 1 Each 3 09/15/2023 Active Additional Information [...] emphysema 09/22/2021 Atherosclerotic heart diseas e of saxman coronary artery with other forms of angina [...] untreated, BMI 43.71 kg/m, NECK: 21 inches, [place] 6/24, sent for bipap titration study 01/11/11 case per [facility] completed ICD-10 update of inactive [...] 11/22/2020 10/12/2023 Coronary artery disease invo lving saxman coronary artery of saxman heart without angina pectoris 07/06/2020 10/12/2023 Chronic [...] 09/23/201305/17 Claudication 05/13/2013 10/12/2023 [employer] Other*[id number] 04/23/2012 09/12/2016 Overview: Study Title: Genomic Markers for Patients with Cardiovascular Disease Project # [id number] Carpet Or Rug Layer Helper: Comfort Aviles MD [phone] Impotence of organic origin 02/16/2011 01/10/2018 Shortness [...] do you have serious difficulty h earing? No-AKIACHAK 11/14/2019 Are you blind or do you [...] or concerns caller can be reached at [phone]. Thank you, Rehana Keys CPhT Slat Basket Maker Helper Machine [facility] ([facility]) (Formerly [...] Please advise. Thank you, Rehana Keys CPhT Slat Basket Maker Helper [employer] [facility] ([facility]) (Formerly Telepharmacy) 10/13/2023,8:56 AM documented in this encounter Plan of Treatment Upcoming Encounters Date Type Department Care Team (Late st Contact Info) Description 10/16/2023 11:30 AM EDT Office Visit Podiatry [facility], [address] [place] [address] Willard Mejia, DPShereen [address] [place], [place] [phone] 10/19/2023 12:30 PM EDT Home Visit [facility] [address] [place] [address] Mayra Moyer, CLARENCE [address] [place] [address] 10/19/2023 2:50 PM EDT Office Visit [facility] [address] [place] [phone] Buster Jessica MD [address] [place] [address] 10/26/2023 1:30 PM EDT Office Visit [address] [phone] Buster Jessica MD [address] [place] [id number] 10/29/2023 2:30 PM EDT Imaging Radiology [facility] [address] [place] [address] 10/29/2023 3:00 PM EDT Office Visit Pulmonary Medicine, [address] [address] Ej Noble MD [address] [place] [address] 11/01/2023 1:30 PM EDT Telemedicine [facility] [address] [place] [address] Grisel Richter CRNP [address] [place] [address] Clary Eastman, [facility] Farm Equipment Mechanic [address] [place] [address] 11/21/2023 10:55 AM EDT Hospital Encounter [facility], Operating Room [facility] [address] [place] [address] Freeman Beaulieu, DO [address] [place] [address] 11/21/2023 10:55 AM EDT - 11/21/2023 11:20 AM EDT Surgery OR [facility], Operating Room [facility] [address] [place] [address] Freeman Beaulieu, DO [address] [place] [address] INJECTION SACROILIAC JOINT 04/22/2024 9:30 AM EDT Cardiac Studies Cardiology, [facility] [address] [place] [address] [facility] [address] [place] [address] 05/19/2024 9:30 AM EDT Appointment Radiology, [address] [address] Scheduled Procedures Name Priority Associated [...] exists DISCUSS TOBACCO CESSATION (REFER TO SMARTSET #2927) 06/02/2023 06/02/2022, 07/21/2020 Depression, Most Recent Score [...] 09/10/2008 LUNG CANCER SCREENING - USE SMARTSET 27978 Completed 08/22/2022, 05/22/2022, 02/21/2021, Additional history exists [...] this encounter Medical Devices Implanted Type Area Club Steward Device Identifier Shelf Expiration Date Model / Serial / Lot 32mm X 109mm, Zenith Fenestrated Aaa Endovascular Proximal Body Graft, Two Proximal Internal Stent Implanted:Qty: 1 on 04/15/2018 by Evens Hoyt MD at [place] [facility] N/A: Aorta [employer] 03/20/2021 ZFEN-P-2- [id number] / / [id number] Stent Graft [id number] - [id number] - [id number] Implanted:Qty: 1 on 04/15/2018 by Evens Hoyt MD at OR [facility] Right: Renal Artery GETINGE : MAQUET 11/30/2020 [id number] / [id number] / [id number] Stent Graft [id number] - [id number] - [id number] Implanted:Qty: 1 on 04/15/2018 by Evens Hoyt MD at OR [facility] Right: Renal Artery GETINGE : MAQUET 11/30/2020 25437 / [id number] / [id number] 28mm X 76mm Distal, 12mm Ipsilateral Leg, Zenith Fenestrated Aaa Endovascular Distal Bifurcated Body Graft Implanted:Qty: 1 on 04/15/2018 by Evens Hoyt MD at OR [facility] N/A: Aorta [employer] 03/20/2021 ZFEN-D-12 -28-76-C / / [id number] Graft Iliac Leg Spirlz [id number] - [id number] Implanted:Qty: 1 on 04/15/2018 by Evens Hoyt MD at OR [facility] Left: Iliac [employer] 09/14/2020 [id number] / / [id number] Graft Iliac Leg Spirlz 64a96cc - [id number] Implanted:Qty: 1 on 04/15/2018 by Evens Hoyt MD at OR [facility] Right: Iliac [employer] 11/09/2020 [id number] / / [id number] Transfixation Pin 6mm 294.950 - [id number] Implanted:Qty: 1 on 11/14/2019 by Mayank Friedman MD at OR [facility] Right: Ankle SYNTHES 294.950 / / Description:transfixation pi n Screw Schanz [id number] - [id number] Implanted:Qty: 2 on 11/14/2019 by Mayank Friedman MD at OR [facility] Right: Leg Lower SYNTHES 294.786SH A / / Description:self drilling sh antz screws 5.0mm x 200mm Esthela Trauma 2.7 Lock Screw 16mm Implanted:Qty: 2 on 11/27/2019 by Donavan Ramirez Jr., MD at OR [facility] Right: Ankle ESTHELA : TRAUMA [id number] / / Description:hardware set Bryan Trauma 2.7 Lock Screw 14mm Implanted:Qty: 1 on 11/27/2019 by Donavan Ramirez Jr., MD at OR [facility] Right: Ankle ESTHELA : TRAUMA [id number] / / Bryan Trauma 3.5 Screw 14mm Implanted:Qty: 1 on 11/27/2019 by Donavan Ramirez Jr., MD at OR [facility] Right: Ankle ESTHELA : TRAUMA [id number] / / Description:hardware set Esthela Trauma 3.5 Screw 18mm Implanted:Qty: 1 on 11/27/2019 by Donavan Ramirez Jr., MD at OR [facility] Right: Ankle ESTHELA : TRAUMA [id number] / / Description:hardware set Bryan 3.5 Lockscrew 16mm Implanted:Qty: 1 on 11/27/2019 by Donavan Ramirez Jr., MD at OR [facility] Right: Ankle [id number] / / Bryan 2.0 Plate Implanted:Qty: 1 on 11/27/2019 by Donavan Ramirez Jr., MD at OR [facility] Right: Ankle [id number] / / Bryan 2.0 Lock Screw Implanted:Qty: 2 on 11/27/2019 by Donavan Rmairez Jr., MD at OR [facility] Right: Ankle [id number] / / Esthela 2.0 Lock Screw Implanted:Qty: 1 on 11/27/2019 by Donavan Ramirez Jr., MD at OR [facility] Right: Ankle [id number] / / Bryan 2.0 Lock Screw Implanted:Qty: 1 on 11/27/2019 by Donavan Ramirez Jr., MD at OR [facility] Right: Ankle [id number] / / Plate Fib 5h [id number] - [id number] Implanted:Qty: 1 on 11/27/2019 by Donavan Ramirez [...] the patient have Health Care Power of Officer Captain? No Full Code 02/17/2019 12:06 PM 02/18/2019 1:09 PM This order reflects the patients wishes and were consensually agreed upon. Question Answer Comments Discussion of Advance Directives occurred with: Not Discussed Does the patient have a Living Will? No Does the patient have Health Care Power of Officer Captain? No Full Code 04/15/2018 12:43 PM 04/16/2018 2:43 PM This order reflects the patients wishes and were consensually agreed upon. Care Teams Form Carpenter Relationship Specialty Start Date End Date Buster Jessica MD [address] [place] [phone] PCP - General Family Medicine 09/11/22 documented as of this encounter
--- OUTSIDE RECORDS SUMMARY | 2023-12-11 18:55 | External Medical Summary | Summary of Care ---
Author Name Unknown Organization [facility] Address [address] [place] [address] Phone [phone] Care Team Providers Care Public Health Informatician Name Role Phone Buster Jessica MD Primary Care P [facility] Reason for Visit * Reason Onset Date Comments Appointment 10/10/2023 Encounter Details Date Type Department Care Team (Late st Contact Info) Description 10/10/2023 Telephone [facility] [address] [place] [address] Services, Scheduling [address] [place] [address] Appointment (/) Allergies Active Allergy Reactions Criticality Noted Date Comments Atorvastatin Muscle pain,Unknown 01/18/2015 Medication intolerance, not an allergy Sacubitril-Valsartan Other (Please comment) 09/17/2020 Throat swelled Sacubitril High 07/20/2023 Other Reaction(s): THROAT SWELLING Simvastatin Low 06/23/2022 Other reaction(s): MUSCLE ACHES Valsartan High 07/20/2023 Other Reaction(s): THROAT SWELLING documented as of this encounter (statuses as of 10/10/2023) Medications Medication Sig Dispensed Refills Start Date [...] disease) ([facility]),Coronary artery disease involving [place] coronary artery [...] Oral Tablet (Aldactone)Indicatio ns:Coronary artery disease involving [place] coronary artery of [place] heart without angina pectoris,Heart failure, systolic, due to CAD ([facility]),Chronic ischemic heart disease,HTN, goal below 140/90 TAKE ONE TABLET BY MOUTH ONCE DAILY 90 Tablet 3 05/14/2023 Active Losartan Potassium 25 MG Oral Tablet (Cozaar)Indications: PAD (peripheral artery disease) ([facility]),Coronary artery disease involving [place] coronary artery [...] 14 days. 6 mL 3 07/02/2023 Active HYDROcodone-Acetamin ophen 7.5-325 MG Oral TabletIndications:Ch ronic bilateral low back pain without sciatica Take 1 Tablet by mouth every 6 hours as needed for Pain, Severe. 60 Tablet 0 08/14/2023 Active Metoprolol Succinate ER 50 MG Oral [...] the morning. 30 Tablet 1 09/06/2023 Active Gabapentin 300 MG Oral Capsule (Neurontin)Indicatio ns:Neuropathic pain of both feet Take 1 Capsule by mouth every evening. 30 Capsule 1 09/06/2023 Active Fluticasone-Salmeter ol 250-50 MCG/ACT [...] suspected opioid overdose. Seek immediate medical attention. https://[email or web address].com/watch?v=[email or web address] 1 Each 3 09/15/2023 Active Tamsulosin HCl [...] 2.5 MG Oral Tablet (Zaroxolyn) One tablet one day per week 30 minutes prior to torsemide with extra doses as directed 8 Tablet 5 09/27/2023 Active documented as of this encounter (statuses as of 10/10/2023) Active Problems Problem Noted Date Diagnosed Date Chronic systolic congestive heart failure 2023 Cardiomyopathy 09/06/2023 Acute on chronic systolic (congestive) heart kaela lure 09/06/2023 Neuropathic pain of both feet 09/06/2023 Atrial fibrillation 08/14/2023 Positive colorectal cancer screening using Colog uard [...] acid in blood 09/26/2021 Pulmonary emphysema 09/22/2021 Paroxysmal atrial fibrillation 09/22/2021 Atherosclerotic heart diseas e of [place] coronary artery with other forms of angina pectoris 09/22/2021 Tobacco dependence 03/07/2021 Adjustment disorder with anxious mood 03/07/2021 Biventricular ICD (implantab le cardioverter-defibrillator) in place 12/23/2020 LBBB (left bundle branch block) 11/22/2020 Chronic systolic HF (heart failure) 11/22/2020 Controlled substance agreement signed 09/02/2020 Coronary artery disease invo lving [place] coronary artery of [place] heart without angina pectoris 07/06/2020 Chronic systolic heart failure 07/06/2020 PAD (peripheral artery disease) 12/16/2019 Closed fracture of right ankle with routine heal ing 11/15/2019 Basal cell carcinoma (BCC) of right nasal tip Heart failure, systolic, due to CAD 06/04/2019 COPD, group D, by GOLD 2017 classification 01/13 Overview: Per COPD GOLD Classification Basal cell carcinoma (BCC) of right ala nasi Squamous cell carcinoma of ala nasi 08/29/2018 Thoracic aortic aneurysm without rupture 018 Abdominal aortic aneurysm (AAA) without rupture 03/07/2018 Hx of nonmelanoma skin cancer 09/14/2016 Overview: basal cell carcinoma (R sideburn, L side of nose, R upper abdomen) H/O dysplastic nevus 09/14/2016 Overview: atypical nevus (L upper back) Claudication 05/13/2013 Obstructive sleep apnea 05/31/2010 Overview: 05/31/10 - untreated, BMI 43.71 kg/m, NECK: 21 inches, Valentine 6/24, sent for bipap titration study 01/11/11 case per [facility] completed ICD-10 update of inactive term BMI 35-39 ISOLATED (SEE ACTUAL BMI) 01/17/2010 Overview: Per Obesity Protocol, #19 BPH without obstruction/lower urinary tract symp toms 08/19/2009 Dyslipidemia, goal LDL below 70 07/21/2009 Overview: Per Lipid Taxonomy. CHR ISCHEMIC HRT DIS NOS documented as of this encounter (statuses as of 10/10/2023) Resolved Problems Problem Noted Date Diagnosed Date Resolved Date Body mass index (BMI) of 40. 0 to 44.9 in adult 02/12/2023 03/14/2023 Overview: Per Obesity protocol Class 2 severe obesity due t o excess calories with serious comorbidity and body mass index (BMI) of 38.0 to 38.9 in adult 08/28/2022 Overview: Per Obesity protocol Prediabetes 10/17/2021 08/16/2023 Overview: Per Prediabetes protocol Depression with anxiety 01/10/201809/07 Morbid (severe) obesity due to excess calories 05/17/2017 03/14/2023 Sacroiliitis, not elsewhere classified 05/17/2017 01/10/2018 Essential hypertension with goal blood pressure less than 140/90 01/05/2016 05/17/2017 COPD, severity to be determined 08/18/2015 01/15/2019 Overview: Per COPD GOLD Classification Encounter for surveillance of abnormal nevi 04/06/2015 05/17/2017 Osteoarthritis of knee 09/23/201305/17 [employer] Other*[id number] 04/23/2012 09/12/2016 Overview: Study Title: Genomic Markers for Patients with Cardiovascular Disease Project # [id number] Commercial Cleaner: Comfort Aviles MD [phone] Impotence of organic origin 02/16/2011 01/10/2018 Shortness of breath 08/09/2010 05/17/20 17 Sleep apnea 05/24/2010 05/31/2010 Displacement of lumbar inter vertebral disc without myelopathy 08/19/2009 05/17/2017 HTN, goal below 140/90 06/24/200901/04 Overview: Modified per HTN protocol #16. Tobacco use disorder 10/02/2007 023 Benign prostatic [...] be determined 07/21/2009 Overview: Per Lipid Taxonomy. HYPERTENSION NOS 06/28/2009 Overview: Modified per HTN protocol #16. Major depressive disorder Overview: ICD-10 update of inactive term MALIG MELANOMA SKIN NEC 05/06 documented as of this encounter (statuses as of 10/10/2023) Immunizations Name Administration Dates Next Due COVID-19 [...] do you have serious difficulty h earing? No-NULATO 11/14/2019 Are you blind or do you [...] encounter Miscellaneous Notes * Telephone Encounter - Malgorzata Sol OSA - 10/10/2023 11:53 AM EST Per Request via TT Julien Lui he advised Clary pate a message from Miryam Patel pt called in to reschedule appt.. Called s/w pt he advised 10/31 at 1:30pm is a good date and time. documented in this encounter Plan of Treatment Upcoming Encounters Date Type Department Care Team ([facility] st Contact Info) Description 10/12/2023 2:50 PM EST Office Visit [facility] [address] [place] [phone] Buster Jessica MD [address] [place] [phone] 10/16/2023 11:30 AM EDT Office Visit Podiatry [address] [place] [phone] Willard Mejia, SLIM [address] [place] [address] 10/19/2023 12:30 PM EDT Home Visit [facility], [facility] [address] [place] [address] Lisa Tenorio RN [address] [place] [address] 10/26/2023 1:30 PM EDT Office Visit [address] [phone] Buster Jessica MD [address] [place] [address] 10/29/2023 2:30 PM EDT Imaging Radiology [facility]st [facility] [address] [facility] [place] [address] 10/29/2023 3:00 PM EDT Office Visit Pulmonary Medicine, [facility] [address] [facility] [place] [address] Ej Noble MD [address] [place] [address] 11/01/2023 1:30 PM EDT Telemedicine [facility], [facility] [address] [place] [address] Grisel Richter CRNP [address] [place] [address] Clary Eastman, [facility] [employer] [address] [place] [address] 11/21/2023 10:55 AM EDT Hospital Encounter [facility], Operating Room [facility] [address] [place] [address] Freeman Beaulieu, DO [address] [place] [address] 11/21/2023 10:55 AM EDT - 11/21/2023 11:20 AM EDT Surgery [facility], Operating Room [facility] [address] [place] [address] Freeman Beaulieu, DO [address] [place] [phone] INJECTION SACROILIAC JOINT 04/22/2024 9:30 AM EDT Cardiac Studies Cardiology, [facility] [address] [place] [address] [facility] [address] [place] [address] 05/19/2024 9:30 AM EDT Appointment Radiology, [place] [id number] [place] [address] Scheduled Procedures Name Priority Associated [...] exists DISCUSS TOBACCO CESSATION (REFER TO SMARTSET #3997) 06/02/2023 06/02/2022, 07/21/2020 Depression, Most Recent Score >= 10 (will fire each visit until score < 10) 08/30/2023 08/29/2023 O2 ASSESSMENT COMPLETED IN PAST YEAR FOR COPD 10/07/2024 10/08/2023 COLONOSCOPY-EVERY 5 YRS AGES 18-100 10/28/2027 10/27/2022, 04/21/2014, 04/21/2014, Additional history exists DTaP,Tdap,and Td Vaccines (3 - Td or Tdap) 04/13/2030 04/13/2020 (Declined), 08/19/2009 Alpha-1 Antitrypsin Completed 02/19/2020 Pneumococcal Vaccine: 65+ Years Completed 05/27/2020, 12/02/2018, 09/10/2008 LUNG CANCER SCREENING - USE SMARTSET 80693 Completed 08/22/2022, 05/22/2022, 02/21/2021, Additional history exists [...] this encounter Medical Devices Implanted Type Area Software Development Project Manager Device Identifier Shelf Expiration Date Model / Serial / Lot 32mm X 109mm, Zenith Fenestrated Aaa Endovascular Proximal Body Graft, Two Proximal Internal Stent Implanted:Qty: 1 on 04/15/2018 by Evens Hoyt MD at OR [facility] N/A: Aorta [employer] 03/20/2021 ZFEN-P-2- [id number] / / [id number] Stent Graft [id number] - [id number] - [id number] Implanted:Qty: 1 on 04/15/2018 by Evens Hoyt MD at OR [facility] Right: Renal Artery GETINGE : MAQUET 11/30/2020 26858 / [id number] / [id number] Stent Graft [id number] 31889 - [id number] - [id number] Implanted:Qty: 1 on 04/15/2018 by Evens Hoyt MD at OR [facility] Right: Renal Artery GETINGE : MAQUET 11/30/2020 73607 / [id number] / [id number] 28mm X 76mm Distal, 12mm Ipsilateral Leg, Zenith Fenestrated Aaa Endovascular Distal Bifurcated Body Graft Implanted:Qty: 1 on 04/15/2018 by Evens Hoyt MD at OR [facility] N/A: Aorta [employer] 03/20/2021 ZFEN-D-12 -28-76-C / / [id number] Graft Iliac Leg Spirlz 27h08md - [id number] Implanted:Qty: 1 on 04/15/2018 by Evens Hoyt MD at OR [facility] Left: Iliac [employer] 09/14/2020 [id number] / / [id number] Graft Iliac Leg Spirlz [id number] - [id number] Implanted:Qty: 1 on 04/15/2018 by Evens Hoyt MD at OR [facility] Right: Iliac [employer] 11/09/2020 [id number] / / [id number] Transfixation Pin 6mm 294.950 - [id number] Implanted:Qty: 1 on 11/14/2019 by Mayank Friedman MD at OR [facility] Right: Ankle SYNTHES 294.950 / / Description:transfixation pi n Screw Schanz [id number] - [id number] Implanted:Qty: 2 on 11/14/2019 by Mayank Friedman MD at OR [facility] Right: Leg Lower SYNTHES 294.786SH A / / Description:self drilling sh antz screws 5.0mm x 200mm Enterprise Trauma 2.7 Lock Screw 16mm Implanted:Qty: 2 on 11/27/2019 by Donavan Ramirez Jr., MD at OR [facility] Right: Ankle ESTHELA : TRAUMA [id number] / / Description:hardware set Enterprise Trauma 2.7 Lock Screw 14mm Implanted:Qty: 1 on 11/27/2019 by Donavan Ramirez Jr., MD at OR [facility] Right: Ankle ESTHELA : TRAUMA [id number] / / Esthela Trauma 3.5 Screw 14mm Implanted:Qty: 1 on 11/27/2019 by Donavan Ramirez Jr., MD at OR [facility] Right: Ankle ESTHELA : TRAUMA [id number] / / Description:hardware set Esthela Trauma 3.5 Screw 18mm Implanted:Qty: 1 on 11/27/2019 by Donavan Ramirez Jr., MD at OR [facility] Right: Ankle ESTHELA : TRAUMA [id number] / / Description:hardware set Enterprise 3.5 Lockscrew 16mm Implanted:Qty: 1 on 11/27/2019 by Donavan Ramirez Jr., MD at OR [facility] Right: Ankle [id number] / / Esthela 2.0 Plate Implanted:Qty: 1 on 11/27/2019 by Donavan Ramirez Jr., MD at OR [facility] Right: Ankle [id number] / / Enterprise 2.0 Lock Screw Implanted:Qty: 2 on 11/27/2019 by Donavan Ramirez Jr., MD at OR [facility] Right: Ankle [id number] / / Enterprise 2.0 Lock Screw Implanted:Qty: 1 on 11/27/2019 by Donavan Ramirez Jr., MD at OR [facility] Right: Ankle [id number] / / Esthela 2.0 Lock Screw Implanted:Qty: 1 on 11/27/2019 by Donavan Ramirez Jr., MD at OR [facility] Right: Ankle [id number] / / Plate Fib 5h 40- - [id number] Implanted:Qty: 1 on 11/27/2019 by Donavan Ramirez Jr., MD at OR [facility] Right: Ankle ESTHELA : TRAUMA / / [...] have Health Care Power of Director Of Strategic Programs? No Full Code 02/17/2019 12:06 PM 02/18/2019 1:09 PM This order reflects the patients wishes and were consensually agreed upon. Question Answer Comments Discussion of Advance Directives occurred with: Not Discussed Does the patient have a Living Will? No Does the patient have Health Care Power of Director Of Strategic Programs? No Full Code 04/15/2018 12:43 PM 04/16/2018 2:43 PM This order reflects the patients wishes and were consensually agreed upon. Care Teams Public Health Informatician Relationship Specialty Start Date End Date Buster Jessica MD [address] [place] [phone] PCP - General Family Medicine 09/11/22 documented as of this encounter
--- OUTSIDE RECORDS SUMMARY | 2023-12-11 18:55 | External Medical Summary | Summary of Care ---
Author Name Unknown Organization [facility] Address [address] [place] [address] Phone [phone] Care Team Providers Care Requirements Manager Name Role Phone Bsuter Jessica MD Primary Care P rovider Reason for Referral * Medication Prior Authorization - Pending Review Specialty Diagnoses / Procedures Referred By Contac t Referred To Contact Diagnoses Chronic bilateral low back pain without sciatica Buster Jessica MD [address] [place] [phone] Referral ID Status Reason Start Date Expiration Date V isits Requested Visits Authorized [id number] Pending Review 999 999 Reason for Visit * Reason Onset Date Comments Hospital Follow-Up Patient is he re today for a hospital discharge today.Not sure what time appointment is for.Please review the note given from patients Main concern is how patient can't stay awake.Also concerned about patients confusion Patient has a cough today and complains of SOB when coughing Feet are swollen today please discuss Hospital Follow-Up 10/12/2023 Encounter Details Date Type Department Care Team ([facility] Contact Info) Description 10/12/2023 2:50 PM EST Office Visit [address] [phone] Buster Jessica MD [address] [place] [address] Hospital discharge follow-up*; COPD exacerbation (HCC); Tobacco dependence; Ischemic cardiomyopathy; Insomnia due to medical condition; Chronic bilateral low back pain without sciatica; 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; Chronic systolic congestive heart failure (HCC); Permanent atrial fibrillation (HCC); Presence of coronary angioplasty implant and graft; Biventricular ICD (implantable cardioverter-defibril lator) in place; Difficulty using continuous positive airway pressure (CPAP) device; Obstructive sleep apnea Allergies Active Allergy Reactions Criticality Noted Date Comments Atorvastatin Muscle pain,Unknown 01/18/2015 Medication intolerance, not an allergy Sacubitril-Valsartan Other (Please comment) 09/17/2020 Throat swelled Sacubitril High 07/20/2023 Other Reaction(s): THROAT SWELLING Simvastatin Low 06/23/2022 Other reaction(s): MUSCLE ACHES Valsartan High 07/20/2023 Other Reaction(s): THROAT SWELLING documented as of this encounter (statuses as of 10/12/2023) Medications Medication Sig Dispensed Refills Start Date [...] Oral Tablet (pLAVix)Indications :PAD (peripheral artery disease) ([facility]),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,Heart failure, systolic, due to CAD ([facility]),Chronic ischemic heart disease,HTN, goal below 140/90 TAKE ONE TABLET BY MOUTH ONCE DAILY 90 Tablet 3 05/14/2023 Active Losartan Potassium 25 MG Oral Tablet (Cozaar)Indications :PAD (peripheral artery disease) ([facility]),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 30 Capsule 3 08/29/2023 Active ARIPiprazole 2 MG Oral Tablet (Abilify)Indication s:Moderate episode of recurrent major depressive disorder ([facility]) Take 1 Tablet by mouth in the morning. 30 Tablet 1 09/06/2023 Active Fluticasone-Salmete rol 250-50 MCG/ACT Inhalation Aerosol Powder Breath Activated (Wixela Inhub)Indications:C OPD, group D, by GOLD 2017 classification ([facility]) Inhale 1 Puff by mouth in the morning and 1 Puff before bedtime. 60 Each 09/06/2023 Active Naloxone HCl 4 MG/0.1ML Nasal Liquid (Narcan Nasal) Administer 1 spray into 1 nostril for suspected opioid overdose. Seek immediate medical attention. [email or web address] 1 Each 3 09/15/2023 Active Additional Information [...] 10/12/2023 Active oxyCODONE HCl 7.5 MG Oral TabletIndications:C hronic bilateral low back pain without sciatica Take 1 Tablet by mouth every 6 hours as needed for Pain, Severe. 28 Tablet 0 10/12/2023 Active hydrOXYzine HCl 25 MG Oral TabletIndications:I nsomnia due to medical condition Take 0.5 Tablets by mouth at bedtime as needed for Other (sleep). 30 Tablet 1 10/12/2023 Active HYDROcodone-Acetami nophen 7.5-325 MG Oral TabletIndications:C hronic bilateral low back pain without sciatica Take 1 Tablet by mouth every 6 hours as needed for Pain, Severe. 60 Tablet 0 08/14/2023 10/12/19 24 Discontinu ed(Medicat ion/Dose Changed) Gabapentin 300 MG Oral Capsule (Neurontin)Indicati ons:Neuropathic pain of both feet Take 1 Capsule by mouth every evening. 30 Capsule 1 09/06/2023 10/12/19 24 Discontinu ed(Patient preference /discontin uation) predniSONE 20 MG Oral Tablet (Deltasone) Take 2 Tablets by mouth in the morning for 5 days. 10 Tablet 0 09/15/2023 10/12/19 24 Discontinu ed(Patient preference /discontin uation) oxyCODONE HCl 5 MG Oral Tablet (Oxy IR) Take 1 Tablet by mouth every 4 hours as needed for Pain, Breakthrough or Pain, Severe for up to 3 days. 15 Tablet 0 09/15/2023 10/12/19 24 Discontinu ed(Patient preference /discontin uation) predniSONE 20 MG Oral Tablet (Deltasone)Indicati ons:Chronic joint pain Take 2 Tablets by mouth in the morning for 5 days. 10 Tablet 0 09/27/2023 10/12/19 24 Discontinu ed(Patient preference /discontin uation) metOLazone 2.5 MG Oral Tablet (Zaroxolyn) One tablet one day per week 30 minutes prior to torsemide with extra doses as directed 8 Tablet 5 09/27/2023 10/12/19 24 Discontinu ed(Refill) documented as of this encounter (statuses as of 10/12/2023) Active Problems Problem Noted Date Diagnosed Date [...] emphysema 09/22/2021 Atherosclerotic heart diseas e of houlton coronary artery with other forms of angina [...] untreated, BMI 43.71 kg/m, NECK: 21 inches, [place] 6/24, sent for bipap titration study 01/11/11 case per P completed ICD-10 update of inactive term BMI 35-39 ISOLATED (SEE ACTUAL BMI) 01/17/2010 Overview: Per Obesity Protocol, #19 BPH without obstruction/lower urinary tract symp toms 08/19/2009 Dyslipidemia, goal LDL below 70 07/21/2009 Overview: Per Lipid Taxonomy. documented as of this encounter (statuses as of 10/12/2023) Resolved Problems Problem Noted Date Diagnosed Date [...] 11/22/2020 10/12/2023 Coronary artery disease invo lving houlton coronary artery of houlton heart without angina pectoris 07/06/2020 10/12/2023 Chronic [...] 09/23/201305/17 Claudication 05/13/2013 10/12/2023 [employer] Other*[id number] 04/23/2012 09/12/2016 Overview: Study Title: Genomic Markers for Patients with Cardiovascular Disease Project # [id number] Vp Of Technology: Comfort Aviles MD [phone] Impotence of organic origin 02/16/2011 01/10/2018 Shortness [...] as of this encounter (statuses as of 10/12/2023) Immunizations Name Administration Dates Next Due COVID-19 [...] Sign Reading Time Taken Comments Blood Pressure 102/64 10/12/2023 3:19 PM EST Pulse 60 10/12/2023 3:17 PM EST Temperature 36.4 C (97.6 F) 10/12/2023 3:17 PM ES T Respiratory Rate 20 10/12/2023 3:17 PM EST Oxygen Saturation 98% 10/12/2023 3:17 PM EST Inhaled Oxygen Concentration - - Weight 126.3 kg (278 lb 6.4 oz) 10/12/2023 3:17 PM EST Height - - Body Mass Index 39.95 10/08/2023 7:09 AM EST documented in this encounter Functional Status Functional [...] No 11/14/2019 documented as of this encounter Patient Instructions * Patient Instructions* Buster Jessica MD - 10/12/2023 3:56 PM EST Discontinue Gabapentin. Use Metolazone 2.5 mg on Sunday, Sunday and for 7 days. Check labs Renal function in 1 week. documented in this encounter Progress Notes * Buster Jessica MD - 10/12/2023 3:24 PM EST SUBJECTIVE: Dago Gunter is a 73 year old male. Chief Complaint Patient presents with Hospital Follow-Up Patient is here today for a hospital discharge today. Not sure what time appointment is for. Please review the note given from patients Main concern is how patient can't stay awake. Also concerned about patients confusion Patient has a cough today and complains of SOB when coughing Feet are swollen today please discuss Hospital Follow-Up Recent Admission: Patient was recently admitted to [facility] on 10/03/2023. The date of discharge was 10/05/23. Discharge report received and reviewed. He was having shortness of breath question of COPD exacerbation versus exacerbation of heart failure with reduced ejection fraction versus CAD. There were plans for cardiac catheterization on 10/08/2023 at [facility]. Cardiac catheterization revealed coronary artery disease that is hemodynamically insignificant. Prior stents patent. Mild luminal irregularities. Known SCRAPER TENDER of RCA with L-R collaterals. HPI: On discharge she was prescribed doxycycline for 5 days and prednisone for 9 days. Continues anticoagulation with Eliquis and Plavix. 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 Will see Dr Graff from Pulmonary Medicine next month. He claims he is still taking his Advair 250/51 inhalation twice daily. Admits occasional wheezing. Refers cough at night. Denies phlegm production. Denies fevers or chills. Appetite is still decreased. At home he reports he is not feeling any better. Continues to have difficulty breathing. Complains of lower extremity swelling and weight gain. Has gained 9 lb in 1 week. Feels very frustrated because he can not do anything that he used to do before. He is trying to renovate a new house for his and even though he has helped he feels frustrated. Denies chest pain or palpitations. His is trying to services all BiPAP so he can restart using BiPAP at night. He feels desperatebut he does have claustrophobia and in the past that has been the main problem. He is planning restarting BiPAP soon, [facility] is his DME provider. He has not able to sleep at night. Has problems falling asleep and staying asleep. Refers constant pain in the low back. Oxycodone 5 mg does not seem to be enough to control his pain. He also has prescription for hydrocodone 7.5 mg but hydrocodone does not seem to help his lower back as much per his report. He asked for a higher dose of oxycodone today. He is still smoking 1 pack of cigarettes daily. He does not want to quit. His reports that since being at home he has been falling asleep very easy while talking and eating. He is dropping cigarettes from his and occasionally. His weight is up. He has been confused. Has been angry and short fuse. He has ask his if Sunday was father's day. He thought his woke him up this morning. Patient Active Problem List Diagnosis Code Dyslipidemia, goal LDL below 70 E78.5 BPH without obstruction/lower urinary tract symptoms N40.0 BMI 35-39 ISOLATED (SEE ACTUAL BMI) E66.9 Obstructive sleep apnea G47.33 Hx of nonmelanoma skin cancer Z85.828 H/O dysplastic nevus Z86.018 Thoracic aortic aneurysm without rupture ([facility]) I71.20 Basal cell carcinoma (BCC) of right ala nasi C44.311 Squamous cell carcinoma of ala nasi C44.321 COPD, group D, by GOLD 2017 classification ([facility]) J44.9 Basal cell carcinoma (BCC) of right nasal tip C44.311 Closed fracture of right ankle with routine healing S82.891D PVD (peripheral vascular disease) ([facility]) I73.9 Controlled substance agreement signed Z79.899 LBBB (left bundle branch block) I44.7 Biventricular ICD (implantable cardioverter-defibrillator) in place Z95.810 Tobacco dependence F17.200 Adjustment disorder with anxious mood F43.22 Pulmonary emphysema ([facility]) J43.9 Atherosclerotic heart disease of houlton coronary artery with other forms of angina pectoris ([facility]) I25.118 Moderate episode of recurrent major depressive disorder ([facility]) F33.1 Elevated uric acid in blood E79.0 Right lower lobe pulmonary nodule R91.1 Presence of coronary angioplasty implant and graft Z95.5 Chronic bilateral low back pain without sciatica M54.50, G89.29 Juxtarenal abdominal aortic aneurysm (AAA) without rupture ([facility]) I71.42 Other persistent atrial fibrillation ([facility]) I48.19 Alcohol consumption binge drinking F10.10 Claustrophobia F40.240 Positive colorectal cancer screening using Cologuard test R19.5 Chronic systolic congestive heart failure (HCC) I50.22 Cardiomyopathy ([facility]) I42.9 Neuropathic pain of both [...] skin every 14 days. 6 mL 3 HYDROcodone-Acetaminophen 7.5-325 MG Oral Tablet Take 1 Tablet by mouth every 6 hours as needed forPain, Severe. 60 Tablet 0 Metoprolol Succinate ER 50 MG Oral Tablet [...] 1 Puff before bedtime. 60 Each 12 Tamsulosin HCl 0.4 MG Oral Capsule (Flomax) TAKE 1 CAPSULE BY MOUTH ONCE DAILY IN THE MORNING 90 Capsule 3 Desvenlafaxine Succinate ER 100 MG Oral Tablet Extended Release 24 Hour (Pristiq) Take 1 Tablet by mouth in the morning. 30 Tablet 11 metOLazone 2.5 MG Oral Tablet (Zaroxolyn) One tablet by oral route 3 days a week on Sunday, Sunday and for 7 days, take 30 minutes prior to torsemide with extra doses as directed oxyCODONE HCl 7.5 MG Oral Tablet Take 1 Tablet by mouth every 6 hours as needed for Pain, Severe. 28 Tablet 0 hydrOXYzine HCl 25 MG Oral Tablet Take 0.5 Tablets by mouth at bedtime as needed for Other (sleep).30 Tablet 1 Naloxone HCl 4 MG/0.1ML Nasal Liquid (Narcan Nasal) Administer 1 spray into 1 nostril for suspectedopioid overdose. Seek immediate medical attention. [email or web address] (Patient not taking: Reported on 10/12/2023) 1 Each 3 No current facility-administered medications for this visit. Current and discharge medications have been reconciled. Review of patient's allergies indicates: Allergen Reactions Sacubitril Other Reaction(s): THROAT SWELLING Valsartan Other Reaction(s): THROAT SWELLING Atorvastatin Muscle pain and Unknown Medication intolerance, not an allergy Entresto [Sacubitril-Valsartan] Other (Please comment) Throat swelled Simvastatin Other reaction(s): MUSCLE ACHES OBJECTIVE: BP 102/64 (BP Site: Left Arm) | Pulse 60 | Temp 36.4 C (97.6 F) (Tympanic) | Resp 20 | Wt 126.3kg (278 lb 6.4 oz) | SpO2 98% | BMI 39.95 kg/m | BSA 2.5 m REVIEW OF SYSTEMS: PHYSICAL EXAM: BP 102/64 (BP Site: Left Arm) | Pulse 60 | Temp 36.4 C (97.6 F) (Tympanic) | Resp 20 | Wt 126.3kg (278 lb 6.4 oz) | SpO2 98% | BMI 39.95 kg/m | BSA 2.5 m Physical Exam Vitals and nursing note reviewed. Constitutional: General: He is not in acute distress. Appearance: He is obese. He is ill-appearing. He is not toxic-appearing. HENT: Head: Normocephalic and atraumatic. Jaw: There is normal jaw occlusion. Right Ear: Tympanic membrane and ear canal normal. Left Ear: Tympanic membrane and ear canal normal. Nose: Nose normal. Mouth/Throat: Lips: Tice. Mouth: Mucous membranes are moist. Pharynx: Oropharynx is clear. No oropharyngeal exudate or posterior oropharyngeal erythema. Eyes: General: No scleral icterus. Conjunctiva/sclera: Conjunctivae normal. Pupils: Pupils are equal, round, and reactive to light. Cardiovascular: Rate and Rhythm: Normal rate and regular rhythm. Pulses: Normal pulses. Heart sounds: No murmur heard. Pulmonary: Effort: Pulmonary effort is normal. Prolonged expiration present. Breath sounds: Wheezing present. No rhonchi or rales. Comments: Scattered wheezes at end of expiration. Abdominal: General: Abdomen is flat. There is no distension. Palpations: Abdomen is soft. Tenderness: There is no abdominal tenderness. Musculoskeletal: General: No swelling or tenderness. Cervical back: Normal range of motion and neck supple. No rigidity. No muscular tenderness. Right lower leg: No edema. Left lower leg: No edema. Lymphadenopathy: Cervical: No cervical adenopathy. Skin: General: Skin is warm and dry. Capillary Refill: Capillary refill takes less than 2 seconds. Findings: No rash. Neurological: General: No focal deficit present. Mental Status: He is alert and oriented to person, place, and time. Psychiatric: Attention and Perception: He does not perceive auditory or visual hallucinations. Mood and Affect: Mood normal. Affect is blunt and angry. Affect is not inappropriate. Speech: Speech normal. Behavior: Behavior is cooperative. Thought Content: Thought content normal. Cognition and Memory: He does not exhibit impaired recent memory. Judgment: Judgment is not impulsive or inappropriate. ASSESSMENT: Hospital discharge follow-up (Primary) - DISCH MED RECON CUR MED LIS COPD exacerbation (HCC) Tobacco dependence Ischemic cardiomyopathy - RENAL FUNCTION PANEL; Future; Expected date: 10/19/2023 Insomnia due to medical condition - hydrOXYzine HCl 25 MG Oral Tablet; Take 0.5 Tablets by mouth at bedtime as needed for Other (sleep). Chronic bilateral low back pain without sciatica - oxyCODONE HCl 7.5 MG Oral Tablet; Take 1 Tablet by mouth every 6 hours as needed for Pain, Severe. 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 Finish steroids as prescribed for COPD exacerbation. Recommend to increase metolazone to 2.5 mg starting tomorrow morning and take 3 times this week forthe next 7 days. Continue current dose of torsemide 100 mg in the morning daily and 100 mg in the afternoon on Sunday, Sunday and Fridays. He is also on spironolactone 25 mg daily. Check renal function panel in 7 days. Will recheck in clinic in 7 days. Will increase oxycodone to 7.5 mg every 6 hours as needed for severe pain. Discontinue hydrocodone. Encouraged to restart BiPAP treatment. is taking machine to local DME supplier for service. Advised to keep follow-up with Pulmonary Medicine later this month. CAD appears stable. Continue follow-up with Dr. Barker. Continue other medications. Follow Up: Return in 1 week (on 10/19/2023), or if symptoms worsen or fail to improve, for Keep appointment October 25. | For: Keep appointment October 25 I spent a total of 40-54 minutes (exact time 54 mins) minutes on the date of service in preparation, delivery, and documentation of the care provided to Dago Gunter excluding any time spent inperformance of separately billed services. Buster Anguiano MD documented in this encounter Nursing Notes * Faith Villalba, [facility] - 10/12/2023 3:24 PM EST The patient has been properly identified by confirmation of name and date of . Chief Complaint Patient presents with Hospital Follow-Up Patient is here today for a hospital discharge today. Not sure what time appointment is for. Please review the note given from patients Main concern is how patient can't stay awake. Also concerned about patients confusion Patient has a cough today and complains of SOB when coughing Feet are swollen today please discuss documented in this encounter Plan of Treatment Upcoming Encounters Date Type Department Care Team ([facility] st Contact Info) Description 10/16/2023 11:30 AM EDT Office Visit Podiatry [facility] [address] [place] [address] Willard Mejia, SLIM [address] [place] [address] 10/19/2023 12:30 PM EDT Home Visit [facility] [address] [place] [address] Mayra Moyer, CLARENCE [address] [place] [address] 10/19/2023 2:50 PM EDT Office Visit [facility] [address] [place] [address] Buster Jessica MD [address] [place] [address] 10/26/2023 1:30 PM EDT Office Visit [facility] [address] [place] [address] Buster Jessica MD [address] [place] [address] 10/29/2023 2:30 PM EDT Imaging Radiology [facility] [address] [place] [address] 10/29/2023 3:00 PM EDT Office Visit Pulmonary Medicine, [facility] [address] [place] [address] Ej Noble MD [address] [facility] [place] [address] 11/01/2023 1:30 PM EDT Telemedicine [facility] [place] [address] [place] [address] Grisel Richter CRNP [address] [place] [address] Clary Eastman, Community Health Residential Living Assistant [address] [facility] [place] [address] 11/21/2023 10:55 AM EDT Hospital Encounter [facility], Operating Room [facility] [address] [place] [phone] Freeman Beaulieu, DO [address] [place] [phone] 11/21/2023 10:55 AM EDT - 11/21/2023 11:20 AM EDT Surgery OR [facility], Operating Room [facility] [address] [place] [phone] Freeman Beaulieu, [address] [place] [phone] INJECTION SACROILIAC JOINT 04/22/2024 9:30 AM EDT Cardiac Studies Cardiology, [facility] [address] [place] [address] [facility] [address] [place] [address] 05/19/2024 9:30 AM EDT Appointment Radiology, Matt [address] [address] Scheduled Orders Name Type Priority Associated Diagnoses Orde r Schedule RENAL FUNCTION PANEL Lab Routine Ischemic cardiomyopathy Expected: 10/19/2023 (Approximate), Expires: 10/11/2024 Scheduled Procedures Name Priority Associated Diagnoses Date/Ti [...] exists DISCUSS TOBACCO CESSATION (REFER TO SMARTSET #5819) 06/02/2023 06/02/2022, 07/21/2020 Depression, Most Recent Score [...] 09/10/2008 LUNG CANCER SCREENING - USE SMARTSET 33220 Completed 08/22/2022, 05/22/2022, 02/21/2021, Additional history exists [...] this encounter Medical Devices Implanted Type Area Transcribing Operator Head Device Identifier Shelf Expiration Date Model / Serial / Lot 32mm X 109mm, Zenith Fenestrated Aaa Endovascular Proximal Body Graft, Two Proximal Internal Stent Implanted:Qty: 1 on 04/15/2018 by Evens Hoyt [place] [facility] [place]A: Aorta [employer] 03/20/2021 ZFKEDAR-P-2- [id number] / / [id number] Stent Graft [id number] - [id number] - [id number] Implanted:Qty: 1 on 04/15/2018 by Evens Hoyt MD at [place] [facility] [place] Right: Renal Artery GETINGE : MAQUET 11/30/2020 [id number] / [id number] / [id number] Stent Graft [id number] - [id number] - [id number] Implanted:Qty: 1 on 04/15/2018 by Evens Hoyt MD at [place] [facility] [place] Right: Renal Artery GETINGE : MAQUET 11/30/2020 [id number] / [id number] / [id number] 28mm X 76mm Distal, 12mm Ipsilateral Leg, Zenith Fenestrated Aaa Endovascular Distal Bifurcated Body Graft Implanted:Qty: 1 on 04/15/2018 by Evens Hoyt MD at [place] [facility] [place] N/A: Aorta [employer] 03/20/2021 ZFKEDAR-D-12 -28-76-C / / [id number] Graft Iliac Leg Spirlz [id number] - [id number] Implanted:Qty: 1 on 04/15/2018 by Evens Hoyt MD at [place] [facility] [place] Left: Iliac [employer] GROUP 09/14/2020 [id number] / / [id number] Graft Iliac Leg Spirlz 81k62sf - [id number] Implanted:Qty: 1 on 04/15/2018 by Evens Hoyt [place] [facility] [place] Iliac [place] [employer] 11/09/2020 [id number] / / [id number] Transfixation Pin 6mm 294.950 - [id number] Implanted:Qty: 1 on 11/14/2019 by Mayank Friedman MD at OR [facility] Right: Ankle SYNTHES 294.950 / / Description:transfixation pi n Screw Schanz 5.2opl999un - [id number] Implanted:Qty: 2 on 11/14/2019 by Mayank Friedman MD at OR [facility] Right: Leg Lower SYNTHES 294.786SH A / / Description:self drilling sh antz screws 5.0mm x 200mm [place] Trauma 2.7 Lock Screw 16mm Implanted:Qty: 2 on 11/27/2019 by Donavan Ramirez Jr., MD [place] [facility] [place]: Ankle ESTHELA : TRAUMA [id number] / / Description:hardware set [place] Trauma 2.7 Lock Screw 14mm Implanted:Qty: 1 on 11/27/2019 by Donavan Ramirez Jr., MD [place] [facility] [place]: Ankle ESTHELA : TRAUMA [id number] / / [place] Trauma 3.5 Screw 14mm Implanted:Qty: 1 on 11/27/2019 by Donavan Ramirez Jr., MD [place] [facility] [place]: Ankle ESTHELA : TRAUMA [id number] / / Description:hardware set [place] Trauma 3.5 Screw 18mm Implanted:Qty: 1 on 11/27/2019 by Donavan Ramirez Jr., MD [place] [facility] [place]: Ankle ESTHELA : TRAUMA [id number] / / Description:hardware set [place] 3.5 Lockscrew 16mm Implanted:Qty: 1 on 11/27/2019 by Donavan Ramirez Jr., MD [place] [facility] [place]: Ankle [id number] / / [place] 2.0 Plate Implanted:Qty: 1 on 11/27/2019 by Donavan Ramirez Jr., MD [place] [facility] [place]: Ankle [id number] / / [place] 2.0 Lock Screw Implanted:Qty: 2 on 11/27/2019 by Donavan Ramirez Jr., MD [place] [facility] [place]: Ankle [id number] / / [place] 2.0 Lock Screw Implanted:Qty: 1 on 11/27/2019 by Donavan Ramirez Jr., MD [place] [facility] [place]: Ankle [id number] / / [place] 2.0 Lock Screw Implanted:Qty: 1 on 11/27/2019 by Donavan Ramirez Jr., MD [place] [facility] [place]: Ankle [id number] / / Plate Fib 40- - [id number] Implanted:Qty: 1 on 11/27/2019 by Donavan Ramirez Jr., MD [place] [facility] [place]: Ankle ESTHELA : TRAUMA / / Description:hardware set documented as of this encounter Visit Diagnoses Diagnosis Hospital discharge follow-up- Primary Other follow-up examination COPD exacerbation (HCC) Obstructive chronic bronchitis with exacerbation Tobacco dependence Tobacco use disorder Ischemic cardiomyopathy Other specified forms of chronic ischemic heart disease Insomnia due to medical condition Insomnia due to medical condition classified elsewhere Chronic bilateral low back pain without sciatica 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 Chronic systolic congestive heart failure (HCC) Chronic systolic heart failure Permanent atrial fibrillation (HCC) Atrial fibrillation Presence of coronary angioplasty implant and graft Postsurgical percutaneous transluminal coronary angioplasty status Biventricular ICD (implantable cardioverter-defibrillator) in place Difficulty using continuous positive airway pressure (CPAP) device Obstructive sleep apnea Obstructive sleep apnea (adult) (pediatric) Inflammation of sacroiliac joint (HCC) Sacroiliitis, not [...] the patient have Health Care Power of Health Equipment Servicer? No Full Code 02/17/2019 12:06 PM 02/18/2019 1:09 PM This order reflects the patients wishes and were consensually agreed upon. Question Answer Comments Discussion of Advance Directives occurred with: Not Discussed Does the patient have a Living Will? No Does the patient have Health Care Power of Health Equipment Servicer? No Full Code 04/15/2018 12:43 PM 04/16/2018 2:43 PM This order reflects the patients wishes and were consensually agreed upon. Care Teams Requirements Manager Relationship Specialty Start Date End [place] [address] PCP - General Family Medicine 09/11/22 documented as of this encounter"
--- OUTSIDE RECORDS SUMMARY | 2023-12-11 18:55 | External Medical Summary | Summary of Care ---
Author Name Unknown Organization [facility] Address [address] [place] [address] Phone [phone] Care Team Providers Care Door To Door Lead Generation Name Role Phone Buster Jessica MD Primary Care P [facility] Reason for Visit * Reason Onset Date Comments Information 10/12/2023 Encounter Details Date Type Department Care Team (Late st Contact Info) Description 10/12/2023 Telephone [facility], [place] [address] [place] [phone] Services, Scheduling [address] [place] [address] Information Allergies Active Allergy Reactions Criticality Noted Date [...] ([facility]),Coronary artery disease involving [place] coronary artery of [place] heart without angina pectoris TAKE ONE [...] Oral Tablet (Aldactone)Indicatio ns:Coronary artery disease involving [place] coronary artery of [place] heart without angina pectoris,Heart failure, systolic, due to CAD ([facility]),Chronic ischemic heart disease,HTN, goal below 140/90 TAKE ONE TABLET BY MOUTH ONCE DAILY 90 Tablet 3 05/14/2023 Active Losartan Potassium 25 MG Oral Tablet (Cozaar)Indications: PAD (peripheral artery disease) ([facility]),Coronary artery disease involving [place] coronary artery of [place] heart without angina pectoris TAKE ONE [...] heart disease,Tobacco use disorder,Coronary artery disease involving [place] coronary artery of [place] heart without angina pectoris Inject 140 [...] suspected opioid overdose. Seek immediate medical attention. [email or web address] Each 3 09/15/2023 Active Tamsulosin HCl [...] fibrillation 09/22/2021 Atherosclerotic heart diseas e of [place] coronary artery with other forms of angina pectoris 09/22/2021 Tobacco dependence 03/07/2021 Adjustment disorder with anxious mood 03/07/2021 Biventricular ICD (implantab le cardioverter-defibrillator) in place 12/23/2020 LBBB (left bundle branch block) 11/22/2020 Chronic systolic HF (heart failure) 11/22/2020 Controlled substance agreement signed 09/02/2020 Coronary artery disease invo lving [place] coronary artery of [place] heart without angina pectoris 07/06/2020 Chronic systolic [...] untreated, BMI 43.71 kg/m, NECK: 21 inches, [place] 6/24, sent for bipap titration study 01/11/11 case per [facility] completed ICD-10 update of inactive [...] Osteoarthritis of knee 09/23/201305/17 [employer] Other*[id number] 04/23/2012 09/12/2016 Overview: Study Title: Genomic Markers for Patients with Cardiovascular Disease Project # [id number] Contact Lens Blocker And Cutter: Comfort Aviles MD [phone] Impotence of organic origin 02/16/2011 01/10/2018 Shortness [...] do you have serious difficulty h earing? No-DEERING 11/14/2019 Are you blind or do you [...] Telephone Encounter - María Ghotra OSA - 10/12/2023 12:11 PM EST Request RN PTO, moved to different RN documented in this encounter Plan of Treatment Upcoming Encounters Date Type Department Care Team ([facility] st Contact Info) Description 10/12/2023 2:50 PM EST Office Visit [facility] [address] [place] [address] Buster Jessica MD [address] [place] [address] 10/16/2023 11:30 AM EDT Office Visit Podiatry [facility] [address] [place] [phone] Willard Mejia, DPShereen [address] [place] [address] 10/19/2023 12:30 PM EDT Home Visit [facility], [facility] [address] [place] [address] Mayra Moyer RN [address] [place] [address] 10/26/2023 1:30 PM EDT Office Visit [facility] [address] [place] [phone] Buster Jessica MD [address] [place] [address] 10/29/2023 2:30 PM EDT Imaging Radiology [facility] [address] [facility] [address] [facility] [place] [address] 10/29/2023 3:00 PM EDT Office Visit Pulmonary Medicine, [facility] [address] [facility] [place] [address] Ej Noble MD [address] [place] [address] 11/01/2023 1:30 PM EDT Telemedicine [facility], [facility] [address] [place] [address] Grisel Richter CRNP [address] [place] [address] Clary Eastman, Community Health Appeals Representative [address] [place] [address] 11/21/2023 10:55 AM EDT Hospital Encounter [facility], Operating Room [facility] [address] [place] [phone] Freeman Beaulieu, DO [address] [place] [phone] 11/21/2023 10:55 AM EDT - 11/21/2023 11:20 AM EDT Surgery OR [facility], Operating Room [facility] [address] [place] [id number] Freeman Beaulieu, DO [address] [place] [phone] INJECTION SACROILIAC JOINT 04/22/2024 9:30 AM EDT Cardiac Studies Cardiology, [facility] [address] [place] [address] [place], Pac[facility] [address] [place] [address] 05/19/2024 9:30 AM EDT Appointment Radiology, [facility] [address] [place] [address] Scheduled Procedures Name Priority Associated [...] exists DISCUSS TOBACCO CESSATION (REFER TO SMARTSET #8749) 06/02/2023 06/02/2022, 07/21/2020 Depression, Most Recent Score [...] 09/10/2008 LUNG CANCER SCREENING - USE SMARTSET 28545 Completed 08/22/2022, 05/22/2022, 02/21/2021, Additional history exists [...] this encounter Medical Devices Implanted Type Area [employer] Footballer Device Identifier Shelf Expiration Date Model / Serial / Lot 32mm X 109mm, Zenith Fenestrated Aaa Endovascular Proximal Body Graft, Two Proximal Internal Stent Implanted:Qty: 1 on 04/15/2018 by Evens Hoyt MD [place] [facility] [place] N/A: Aorta [employer] 03/20/2021 ZFEN-P-2- [id number] / / [id number] Stent Graft [id number] [id number] - [id number] - [id number] Implanted:Qty: 1 on 04/15/2018 by Evens Hoyt MD [place] [facility] [place]: Renal Artery GET[place]E : MAQUET 11/30/2020 13031 / [id number] / [id number] Stent Graft [id number] 24289 - [id number] - [id number] Implanted:Qty: 1 on 04/15/2018 by Evens Hoyt MD [place] [facility] [place]: Renal Artery GETINGE : HELIOQUET 11/30/2020 46044 / [id number] / [id number] 28mm X 76mm Distal, 12mm Ipsilateral Leg, Zenith Fenestrated Aaa Endovascular Distal Bifurcated Body Graft Implanted:Qty: 1 on 04/15/2018 by Evens Hoyt MD [place] [facility] [place] N/A: Aorta [employer] 03/20/2021 ZFEN-D-12 -28-76-C / / [id number] Graft Iliac Leg Spirlz 86t70av - [id number] Implanted:Qty: 1 on 04/15/2018 by Evens Hoyt MD [place] [facility] [place] Left: Iliac [employer] 09/14/2020 [id number] / / [id number] Graft Iliac Leg Spirlz 89k66zp - [id number] Implanted:Qty: 1 on 04/15/2018 by Evens Hoyt MD [place] [facility] [place]: Iliac [employer] 11/09/2020 [id number] / / [id number] Transfixation Pin 6mm 294.950 - [id number] Implanted:Qty: 1 on 11/14/2019 by Mayank Friedman MD at OR [facility] Right: Ankle SYNTHES 294.950 / / Description:transfixation pi n Screw Schanz 5.7qdd105ex - [id number] Implanted:Qty: 2 on 11/14/2019 by Mayank Friedman MD at OR [facility] Right: Leg Lower SYNTHES 294.786SH A / / Description:self drilling sh antz screws 5.0mm x 200mm [place] Trauma 2.7 Lock Screw 16mm Implanted:Qty: 2 on 11/27/2019 by Donavan Ramirez Jr., MD [place] [facility] [place]: Ankle ESTHELA : TRAUMA [id number] / / Description:hardware set [place] Trauma 2.7 Lock Screw 14mm Implanted:Qty: 1 on 11/27/2019 by Donavan Ramirez Jr., MD [place] [facility] [place]: Ankle ESTHELA : TRAUMA [id number] / / [place] Trauma 3.5 Screw 14mm Implanted:Qty: 1 on 11/27/2019 by Donavan Ramirez Jr., MD [place] [facility] [place]: Ankle ESTHELA : TRAUMA [id number] / / Description:hardware set [place] Trauma 3.5 Screw 18mm Implanted:Qty: 1 on 11/27/2019 by Donavan Ramirez Jr., MD [place] [facility] [place]: Ankle ESTHELA : TRAUMA [id number] / / Description:hardware set [place] 3.5 Lockscrew 16mm Implanted:Qty: 1 on 11/27/2019 by Donavan Ramirez Jr., MD [place] [facility] [place]: Ankle [id number] / / [place] 2.0 Plate Implanted:Qty: 1 on 11/27/2019 by Donavan Ramirez Jr., MD [place] [facility] [place] Right: Ankle [id number] / / [place] 2.0 Lock Screw Implanted:Qty: 2 on 11/27/2019 by Donavan Ramirez Jr., MD [place] [facility] [place] Right: Ankle [id number] / / [place] 2.0 Lock Screw Implanted:Qty: 1 on 11/27/2019 by Donavan Ramirez Jr., MD [place] [facility] [place] Right: Ankle [id number] / / [place] 2.0 Lock Screw Implanted:Qty: 1 on 11/27/2019 by Donavan Ramirez Jr., MD [place] [facility] [place] Right: Ankle [id number] / / Plate Fib 5h 40- - [id number] Implanted:Qty: 1 on 11/27/2019 by Donavan Ramirez Jr., MD [place] [facility] [place]: Ankle ESTHELA : TRAUMA / / [...] the patient have Health Care Power of Shift Production Associate? No Full Code 02/17/2019 12:06 PM 02/18/2019 1:09 PM This order reflects the patients wishes and were consensually agreed upon. Question Answer Comments Discussion of Advance Directives occurred with: Not Discussed Does the patient have a Living Will? No Does the patient have Health Care Power of Shift Production Associate? No Full Code 04/15/2018 12:43 PM 04/16/2018 2:43 PM This order reflects the patients wishes and were consensually agreed upon. Care Teams Door To Door Lead Generation Relationship Specialty Start Date End Date Buster Jessica MD [address] [place] [id number] PCP - General Family Medicine 09/11/22 documented as of this encounter
--- OUTSIDE RECORDS SUMMARY | 2023-12-11 18:55 | External Medical Summary | Summary of Care ---
Author Name Unknown Organization [facility] Address [address] [place] [address] Phone [phone] Care Team Providers Care Drafting Clerk Name Role Phone Buster Jessica MD Primary Care P rovider Reason for Visit * Reason Onset Date Comments Other 10/13/2023 Encounter Details Date Type Department Care Team ([facility] st Contact Info) Description 10/13/[address] [phone] Buster Jessica MD [address] [place] [phone] Other Allergies Active Allergy Reactions Criticality [...] :Heart failure, systolic, due to CAD ([facility]) Take 1 tablet by mouth [...] TN, goal below 140/90,Paroxysmal atrial fibrillation ([facility]),LBBB (left bundle branch block) TAKE [...] Tablet (pLAVix)Indications: PAD (peripheral artery disease) ([facility]),Coronary artery disease involving twin hills coronary artery of twin hills heart without angina pectoris TAKE ONE TABLET BY MOUTH ONCE DAILY 90 Tablet 3 03/13/2023 Active Albuterol Sulfate (2.5 MG/3ML) 0.083% Inhalation Nebulization Solution (Proventil)Indicatio ns:COPD, group D, by GOLD 2017 classification ([facility]) Inhale 1 Vial via nebulizer every 4 hours as needed for Wheezing. 75 mL 1 04/23/2023 Active Famotidine 20 MG Oral Tablet (Pepcid) TAKE 1 TABLET BY MOUTH TWICE DAILY (MORNING AND AT BEDTIME) 180 Tablet 3 04/30/2023 Active Spironolactone 25 MG Oral Tablet (Aldactone)Indicatio ns:Coronary artery disease involving twin hills coronary artery of [place] heart without angina pectoris,Heart failure, systolic, due to CAD ([facility]),Chronic ischemic heart disease,HTN, goal below 140/90 TAKE ONE TABLET BY MOUTH ONCE DAILY 90 Tablet 3 05/14/2023 Active Losartan Potassium 25 MG Oral Tablet (Cozaar)Indications: PAD (peripheral artery disease) ([facility]),Coronary artery disease involving [place] hills coronary artery of twin [place] heart without angina pectoris TAKE ONE TABLET [...] apnea,Heart failure, systolic, due to CAD ([facility]),Dyslipidemia, goal LDL below 70,Chronic ischemic heart disease,Tobacco use disorder,Coronary artery disease involving twin hills coronary artery of twin hills heart without angina pectoris Inject 140 mg (1 pen) under the skin every 14 days. 6 mL 3 07/02/2023 Active Metoprolol Succinate ER 50 MG Oral Tablet Extended Release 24 Hour (Toprol XL)Indications:Persi stent atrial fibrillation ([facility]),Acute on chronic systolic (congestive) heart failure ([facility]) One tablet by mouth daily at bedtime, this is in addition to the previous prescription for 100 milligrams daily in the morning. 90 Tablet 3 08/23/2023 Active Digoxin 125 MCG Oral Tablet (Lanoxin) Take 1 Tablet by mouth in the morning. 90 Tablet 3 08/23/2023 Active Benzonatate 100 MG Oral CapsuleIndications:C OPD, group D, by GOLD 2017 classification ([facility]) Take 1 Capsule by mouth 3 times a day as needed for Cough. 30 Capsule 3 08/29/2023 Active ARIPiprazole 2 MG Oral Tablet (Abilify)Indications :Moderate episode of recurrent major depressive disorder ([facility]) Take 1 Tablet by mouth in the morning. 30 Tablet 1 09/06/2023 Active Fluticasone-Salmeter ol 250-50 MCG/ACT Inhalation Aerosol Powder Breath Activated (Wixela Inhub)Indications:CO PD, group D, by GOLD 2017 classification ([facility]) Inhale 1 Puff by mouth in the morning and 1 Puff before bedtime. 60 Each 12 09/06/2023 Active Naloxone HCl 4 MG/0.1ML Nasal Liquid (Narcan Nasal) Administer 1 spray into 1 nostril for suspected opioid overdose. Seek immediate medical attention. [email or web address]?[email or web address] 1 Each 3 09/15/2023 Active Additional Information [...] emphysema 09/22/2021 Atherosclerotic heart diseas e of twin hills coronary artery with other forms of angina [...] untreated, BMI 43.71 kg/m, NECK: 21 inches, [place] 6/24, sent for bipap titration study 01/11/11 case per [facility] completed ICD-10 update of inactive term [...] 11/22/2020 10/12/2023 Coronary artery disease invo lving twin hills coronary artery of [place] heart without angina pectoris 07/06/2020 10/12/2023 Chronic [...] 09/23/201305/17 Claudication 05/13/2013 10/12/2023 [employer] Other*[id number] 04/23/2012 09/12/2016 Overview: Study Title: Genomic Markers for Patients with Cardiovascular Disease Project # [id number] Small Machine Bindery Operator: Comfort Aviles MD [phone] Impotence of organic origin 02/16/2011 01/10/2018 Shortness [...] 10:41 AM EST Do you mean Oxycodone? * Telephone Encounter - Emmy Keys CPhT - 10/13/2023 8:56 AM EST [facility] calling stating they had received a PA for a medication Oxaydo. Caller states they are unable to review the PA as that medication has been discontinued. Please advise. Thank you, Rehana Keys CPhT Packing Room Worker II Centralized Clinical Pharmacy Services (CCPS) (Formerly Telepharmacy) 10/13/2023,8:56 AM documented in this encounter Plan of Treatment Upcoming Encounters Date Type Department Care Team ([facility] Contact Info) Description 10/16/2023 11:30 AM EDT Office Visit Podiatry [address] [place] [phone] Willard Mejia, SLIM [address] [place] [address] 10/19/2023 12:30 PM EDT [facility] [place] [address] [place] [address] Mayra Moyer, CLARENCE [address] [place] [address] 10/19/2023 2:50 PM EDT Office Visit [address] [address] Buster Jessica MD [address] [place] [address] 10/26/2023 1:30 PM EDT Office Visit [address] [address] Buster Jessica MD [address] [place] [address] 10/29/2023 2:30 PM EDT Imaging Radiology [facility] [address] [place] [address] 10/29/2023 3:00 PM EDT Office Visit Pulmonary Medicine, [facility] [address] [place] [address] Ej Noble MD [address] [place] [facility] [place] [address] 11/01/2023 1:30 PM EDT Telemedicine [facility] [place] [address] [place] [address] Grisel Richter CRNP [address] [place] [address] Clary Eastman, Community Health Senior Clerk [address] [place] [address] 11/21/2023 10:55 AM EDT Hospital Encounter [facility], Operating Room [facility] [address] [place] [phone] Freeman Beaulieu, [address] [place] [phone] 11/21/2023 10:55 AM EDT - 11/21/2023 11:20 AM EDT Surgery OR [facility], Operating Room [facility] [address] [place] [phone] Freeman Beaulieu, [address] [place] [address] INJECTION SACROILIAC JOINT 04/22/2024 9:30 AM EDT Cardiac Studies Cardiology, [facility] [address] [place] [address] Fredy Shaw [address] [place] [address] 05/19/2024 9:30 AM EDT [facility] [address] [facility] [address] Scheduled Procedures Name Priority Associated Diagnoses [...] exists DISCUSS TOBACCO CESSATION (REFER TO SMARTSET #9873) 06/02/2023 06/02/2022, 07/21/2020 Depression, Most Recent Score [...] 09/10/2008 LUNG CANCER SCREENING - USE SMARTSET 19132 Completed 08/22/2022, 05/22/2022, 02/21/2021, Additional history exists [...] this encounter Medical Devices Implanted Type Area Neuro Intensivist Physician Device Identifier Shelf Expiration Date Model / Serial / Lot 32mm X 109mm, Zenith Fenestrated Aaa Endovascular Proximal Body Graft, Two Proximal Internal Stent Implanted:Qty: 1 on 04/15/2018 by Evens Hoyt MD at OR [facility] N/A: Aorta [employer] 03/20/2021 ZFKEDAR-P-2- 32-109-R / / [id number] Stent Graft [id number] 85828 - [id number] - [id number] Implanted:Qty: 1 on 04/15/2018 by Evens Hoyt MD at OR [facility] Right: Renal Artery GETINGE : MAQUET 11/30/2020 50847 / [id number] / [id number] Stent Graft [id number] 63268 - [id number] - [id number] Implanted:Qty: 1 on 04/15/2018 by Evens Hoyt MD at OR [facility] Right: Renal Artery GETINGE : MAQUET 11/30/2020 17079 / [id number] / [id number] 28mm X 76mm Distal, 12mm Ipsilateral Leg, Zenith Fenestrated Aaa Endovascular Distal Bifurcated Body Graft Implanted:Qty: 1 on 04/15/2018 by Evens Hoyt MD at OR [facility] N/A: Aorta [employer] 03/20/2021 LISA-D-12 -28-76-C / / [id number] Graft Iliac Leg Spirlz 93v02nb - [id number] Implanted:Qty: 1 on 04/15/2018 by Evens Hoyt MD at OR [facility] Left: Iliac [place] GROUP 09/14/2020 [id number] / / [id number] Graft Iliac Leg Spirlz [id number] - [id number] Implanted:Qty: 1 on 04/15/2018 by Evens Hoyt MD at OR [facility] Right: Iliac [place] GROUP 11/09/2020 [id number] / / [id number] Transfixation Pin 6mm 294.950 - [id number] Implanted:Qty: 1 on 11/14/2019 by Mayank Friedman MD at OR [facility] Right: Ankle SYNTHES 294.950 / / Description:transfixation pi n Screw Schanz 5.5mrx481vy - [id number] Implanted:Qty: 2 on 11/14/2019 by Mayank Friedman MD at OR [facility] Right: Leg Lower SYNTHES 294.786SH A / / Description:self drilling sh antz screws 5.0mm x 200mm Esthela Trauma 2.7 Lock Screw 16mm Implanted:Qty: 2 on 11/27/2019 by Donavan Ramirez Jr., MD at OR [facility] Right: Ankle ESTHELA : TRAUMA [id number] / / Description:hardware set Esthela Trauma 2.7 Lock Screw 14mm Implanted:Qty: 1 on 11/27/2019 by Donavan Ramirez Jr., MD at OR [facility] Right: Ankle ESTHELA : TRAUMA [id number] / / Esthela Trauma 3.5 Screw 14mm Implanted:Qty: 1 on 11/27/2019 by Donavan Ramirez Jr., MD at OR [facility] Right: Ankle ESTHELA : TRAUMA [id number] / / Description:hardware set [place] Trauma 3.5 Screw 18mm Implanted:Qty: 1 on 11/27/2019 by Donavan Ramirez Jr., MD at OR [facility] Right: Ankle ESTHELA : TRAUMA [id number] / / Description:hardware set [place] 3.5 Lockscrew 16mm Implanted:Qty: 1 on 11/27/2019 by Donavan Ramirez Jr., MD at OR [facility] Right: Ankle [id number] / / Esthela 2.0 Plate Implanted:Qty: 1 on 11/27/2019 by Donavan Ramirez Jr., MD at OR [facility] Right: Ankle [id number] / / Esthela 2.0 Lock Screw Implanted:Qty: 2 on 11/27/2019 by Donavan Ramirez Jr., MD at OR [facility] Right: Ankle [id number] / / [place] 2.0 Lock Screw Implanted:Qty: 1 on 11/27/2019 by Donavan Ramirez Jr., MD at OR [facility] Right: Ankle [id number] / / Esthela 2.0 Lock Screw Implanted:Qty: 1 on 11/27/2019 by Donavan Ramirez Jr., MD at OR [facility] Right: Ankle [id number] / / Plate Fib 5h - [id number] Implanted:Qty: 1 on 11/27/2019 by Donavan Ramirez Jr., MD at OR [facility] Right: Ankle ESTHELA : TRAUMA [...] the patient have Health Care Power of High School Learning Support Teacher? No Full Code 02/17/2019 12:06 PM 02/18/2019 1:09 PM This order reflects the patients wishes and were consensually agreed upon. Question Answer Comments Discussion of Advance Directives occurred with: Not Discussed Does the patient have a Living Will? No Does the patient have Health Care Power of High School Learning Support Teacher? No Full Code 04/15/2018 12:43 PM 04/16/2018 2:43 PM This order reflects the patients wishes and were consensually agreed upon. Care Teams Drafting Clerk Relationship Specialty Start Date End Date Buster Jessica MD [address] [place] [address] PCP - General Family Medicine 09/11/22 documented as of this encounter
--- OUTSIDE RECORDS SUMMARY | 2023-12-11 18:55 | External Medical Summary | Summary of Care ---
Author Name Unknown Organization [facility] Address [address] [place] [address] Phone [phone] Care Team Providers Care Product Safety Consultant Name Role Phone Buster Jessica MD Primary Care P rovider Reason for Visit * Reason Onset Date Comments Other 10/13/2023 Encounter Details Date Type Department Care Team ([facility] st Contact Info) Description 10/13/[address] [phone] Buster Jessica MD [address] [place] [address] Other Allergies Active Allergy Reactions Criticality [...] TN, goal below 140/90,Paroxysmal atrial fibrillation ([facility]),LBBB (left bundle branch block) TAKE 2 TABLETS BY MOUTH ONCE DAILY IN THE MORNING AND ONE TAB IN THE EVENING 270 Tablet 3 02/07/2023 Active Metoprolol Succinate ER 100 MG Oral Tablet Extended Release 24 Hour (toPROL XL) TAKE ONE TABLET BY MOUTH ONCE DAILY 90 Tablet 3 03/08/2023 Active Clopidogrel Bisulfate 75 MG Oral Tablet (pLAVix)Indications: PAD (peripheral artery disease) ([facility]),Coronary artery disease involving kaibab coronary artery of kaibab heart without angina pectoris TAKE ONE TABLET [...] Oral Tablet (Aldactone)Indicatio ns:Coronary artery disease involving kaibab coronary artery of kaibab heart without angina pectoris,Heart failure, systolic, due to CAD ([facility]),Chronic ischemic heart disease,HTN, goal below 140/90 TAKE ONE TABLET BY MOUTH ONCE DAILY 90 Tablet 3 05/14/2023 Active Losartan Potassium 25 MG Oral Tablet (Cozaar)Indications: PAD (peripheral artery disease) ([facility]),Coronary artery disease involving kaibab coronary artery of kaibab heart without angina pectoris TAKE ONE TABLET [...] heart disease,Tobacco use disorder,Coronary artery disease involving kaibab coronary artery of kaibab heart without angina pectoris Inject 140 mg (1 pen) under the skin every 14 days. 6 mL 3 07/02/2023 Active Metoprolol Succinate ER 50 MG Oral Tablet Extended Release 24 Hour (Toprol XL)Indications:Persi stent atrial fibrillation ([facility]),Acute on chronic systolic (congestive) heart failure ([facility]) One tablet by mouth daily at bedtime, this is in addition to the previous prescription for 100 milligrams daily in the morning. 90 Tablet 3 08/23/2023 Active Digoxin 125 MCG Oral Tablet (Lanoxin) Take 1 Tablet by mouth in the morning. 90 Tablet 3 08/23/2023 Active Benzonatate 100 MG Oral CapsuleIndications:C OPD, group D, by GOLD 2017 classification ([facility]) Take 1 Capsule by mouth 3 times a day as needed for Cough. 30 Capsule 3 08/29/2023 Active ARIPiprazole 2 MG Oral Tablet (Abilify)Indications :Moderate episode of recurrent major depressive disorder ([facility]) Take 1 Tablet by mouth in the [...] suspected opioid overdose. Seek immediate medical attention. [email or web address]?[email or web address] 1 Each 3 09/15/2023 Active Additional Information [...] emphysema 09/22/2021 Atherosclerotic heart diseas e of kaibab coronary artery with other forms of angina [...] untreated, BMI 43.71 kg/m, NECK: 21 inches, [place] 6/24, sent for bipap titration study 01/11/11 case per [facility] completed ICD-10 update of inactive term [...] 11/22/2020 10/12/2023 Coronary artery disease invo lving kaibab coronary artery of kaibab heart without angina pectoris 07/06/2020 10/12/2023 Chronic [...] 09/23/201305/17 Claudication 05/13/2013 10/12/2023 [employer] Other*[id number] 04/23/2012 09/12/2016 Overview: Study Title: Genomic Markers for Patients with Cardiovascular Disease Project # [id number] Box Hinge And Lock Attacher: Comfort Aviles MD [phone] Impotence of organic origin 02/16/2011 01/10/2018 Shortness [...] do you have serious difficulty h earing? No-[place] 11/14/2019 Are you blind or do [...] Please advise. Thank you, Rehana Keys CPhT Wildlife Enforcement Major II Centralized Clinical Pharmacy Services (CCPS) (Formerly Telepharmacy) 10/13/2023,8:56 AM documented in this encounter Plan of Treatment Upcoming Encounters Date Type Department Care Team ([facility] Contact Info) Description 10/16/2023 11:30 AM EDT Office Visit Podiatry [address] [place] [phone] Willard Mejia, SLIM [address] [place] [address] 10/19/2023 12:30 PM EDT [facility] [place] [address] [place] [address] Mayra Moyer, CLARENCE [address] [place] [address] 10/19/2023 2:50 PM EDT Office Visit [address] [address] Buster Jessica MD [address] [place] [address] 10/26/2023 1:30 PM EDT Office Visit [address] [address] Buster Jessica MD [address] [place] [address] 10/29/2023 2:30 PM EDT Imaging Radiology [facility] [address] [place] [address] 10/29/2023 3:00 PM EDT Office Visit Pulmonary Medicine, [facility] [address] [place] [address] Ej Noble MD [address] [place] [facility] [place] [address] 11/01/2023 1:30 PM EDT Telemedicine [facility] [place] [address] [place] [address] Grisel Richter CRNP [address] [place] [address] Clary Eastman, Community Health Metallurgical Technician [address] [place] [address] 11/21/2023 10:55 AM EDT Hospital Encounter [facility], Operating Room [facility] [address] [place] [address] Freeman Beaulieu, [address] [place] [phone] 11/21/2023 10:55 AM EDT - 11/21/2023 11:20 AM EDT Surgery [facility], Operating Room [facility] [address] [place] [phone] Freeman Beaulieu, [address] [place] [phone] INJECTION SACROILIAC JOINT 04/22/2024 9:30 AM EDT Cardiac Studies Cardiology, [facility] [address] [place] [address] Fredy Shaw [address] [place] [address] 05/19/2024 9:30 AM EDT [facility] [address] [facility] [address] Scheduled Procedures Name Priority Associated Diagnoses [...] exists DISCUSS TOBACCO CESSATION (REFER TO SMARTSET #2684) 06/02/2023 06/02/2022, 07/21/2020 Depression, Most Recent Score [...] 09/10/2008 LUNG CANCER SCREENING - USE SMARTSET 92928 Completed 08/22/2022, 05/22/2022, 02/21/2021, Additional history exists [...] this encounter Medical Devices Implanted Type Area Station Engineer Main Line Device Identifier Shelf Expiration Date Model / Serial / Lot 32mm X 109mm, Zenith Fenestrated Aaa Endovascular Proximal Body Graft, Two Proximal Internal Stent Implanted:Qty: 1 on 04/15/2018 by Evens Hoyt MD at OR [facility] N/A: Aorta [employer] 03/20/2021 ZFKEDAR-P-2- 32-109-R / / [id number] Stent Graft [id number] - [id number] - [id number] Implanted:Qty: 1 on 04/15/2018 by Evens Hoyt MD at OR [facility] Right: Renal Artery GETINGE : MAQUET 11/30/2020 84943 / [id number] / [id number] Stent Graft [id number] 79669 - [id number] - [id number] Implanted:Qty: 1 on 04/15/2018 by Evens Hoyt MD at OR [facility] Right: Renal Artery GETINGE : MAQUET 11/30/2020 61634 / [id number] / [id number] 28mm X 76mm Distal, 12mm Ipsilateral Leg, Zenith Fenestrated Aaa Endovascular Distal Bifurcated Body Graft Implanted:Qty: 1 on 04/15/2018 by Evens Hoyt MD at OR [facility] N/A: Aorta [employer] 03/20/2021 LISA-D-12 -28-76-C / / [id number] Graft Iliac Leg Spirlz [id number] - [id number] Implanted:Qty: 1 on 04/15/2018 by Evens Hoyt MD at OR [facility] Left: Iliac [employer] 09/14/2020 [id number] / / [id number] Graft Iliac Leg Spirlz 30b93bf - [id number] Implanted:Qty: 1 on 04/15/2018 by Evens Hoyt MD at OR [facility] Right: Iliac [employer] 11/09/2020 [id number] / / [id number] Transfixation Pin 6mm 294.950 - [id number] Implanted:Qty: 1 on 11/14/2019 by Mayank Friedman MD at OR [facility] Right: Ankle SYNTHES 294.950 / / Description:transfixation pi n Screw Schanz 5.4nrg297vk - [id number] Implanted:Qty: 2 on 11/14/2019 by Mayank Friedman MD at OR [facility] Right: Leg Lower SYNTHES 294.786SH A / / Description:self drilling sh antz screws 5.0mm x 200mm Esthela Trauma 2.7 Lock Screw 16mm Implanted:Qty: 2 on 11/27/2019 by Donavan Ramirez Jr., MD at OR [facility] Right: Ankle ESTHELA : TRAUMA [id number] / / Description:hardware set [place]hela Trauma 2.7 Lock Screw 14mm Implanted:Qty: 1 on 11/27/2019 by Donavan Ramirez Jr., MD at OR [facility] Right: Ankle ESTHELA : TRAUMA [id number] / / Esthela Trauma 3.5 Screw 14mm Implanted:Qty: 1 on 11/27/2019 by Donavan Ramirez Jr., MD at OR [facility] Right: Ankle ESTHELA : TRAUMA [id number] / / Description:hardware set [place] Trauma 3.5 Screw 18mm Implanted:Qty: 1 on 11/27/2019 by Donavan Ramirez Jr., MD at OR [facility] Right: Ankle ESTHELA : TRAUMA [id number] / / Description:hardware set [place] 3.5 Lockscrew 16mm Implanted:Qty: 1 on 11/27/2019 by Donavan Ramirez Jr., MD at OR [facility] Right: Ankle [id number] / / [place]hel[place] 2.0 Plate Implanted:Qty: 1 on 11/27/2019 by Donavan Ramirez Jr., MD at OR [facility] Right: Ankle [id number] / / [place] 2.0 Lock Screw Implanted:Qty: 2 on 11/27/2019 by Donavan Ramirez Jr., MD at OR [facility] Right: Ankle [id number] / / [place] 2.0 Lock Screw Implanted:Qty: 1 on 11/27/2019 by Donavan Ramirez Jr., MD at OR [facility] Right: Ankle [id number] / / [place] 2.0 Lock Screw Implanted:Qty: 1 on 11/27/2019 by Donavan Ramirez Jr., MD at OR [facility] Right: Ankle [id number] / / Plate Fib 5h - [id number] Implanted:Qty: 1 on 11/27/2019 by Donavan Ramirez Jr., MD at OR [facility] Right: Ankle ESTHELA [...] the patient have Health Care Power of Hand Or Machine Paster? No Full Code 02/17/2019 12:06 PM 02/18/2019 1:09 PM This order reflects the patients wishes and were consensually agreed upon. Question Answer Comments Discussion of Advance Directives occurred with: Not Discussed Does the patient have a Living Will? No Does the patient have Health Care Power of Hand Or Machine Paster? No Full Code 04/15/2018 12:43 PM 04/16/2018 2:43 PM This order reflects the patients wishes and were consensually agreed upon. Care Teams Product Safety Consultant Relationship Specialty Start Date End Date Buster Jessica MD [address] [place] [address] PCP - General Family Medicine 09/11/22 documented as of this encounter
--- OUTSIDE RECORDS SUMMARY | 2023-12-11 18:55 | External Medical Summary | Summary of Care ---
Author Name Unknown Organization [facility] Address [address] [place] [address] Phone [phone] Care Team Providers Care Pipe Layer Name Role Phone Buster Jessica MD Primary Care P rovider Reason for Referral * Medication Prior Authorization - Pending Review Specialty Diagnoses / Procedures Referred By Contac t Referred To Contact Diagnoses Chronic bilateral low back pain without sciatica Buster Jessica MD [address] [place] [address] Referral ID Status Reason Start Date Expiration Date V isits Requested Visits Authorized [id number] Pending Review 999 999 Reason for Visit [...] Encounter Details Date Type Department Care Team ([facility] Contact Info) Description 10/12/2023 2:50 PM EST Office Visit [address] [address] Buster Jessica MD [address] [place] [address] Hospital discharge follow-up*; COPD exacerbation (HCC); Tobacco dependence; Ischemic cardiomyopathy; Insomnia due to medical condition; Chronic bilateral low back pain without sciatica; Coronary artery disease involving koi coronary artery of koi heart without angina pectoris; Chronic systolic congestive [...] (pLAVix)Indications :PAD (peripheral artery disease) ([facility]),Coronary artery disease involving koi coronary artery of koi heart without angina pectoris TAKE ONE TABLET BY MOUTH ONCE DAILY 90 Tablet 3 03/13/2023 Active Albuterol Sulfate (2.5 MG/3ML) 0.083% Inhalation Nebulization Solution (Proventil)Indicati ons:COPD, group D, by GOLD 2017 classification ([facility]) Inhale 1 Vial via nebulizer every 4 hours as needed for Wheezing. 75 mL 1 04/23/2023 Active Famotidine 20 MG Oral Tablet (Pepcid) TAKE 1 TABLET BY MOUTH TWICE DAILY (MORNING AND AT BEDTIME) 180 Tablet 3 04/30/2023 Active Spironolactone 25 MG Oral Tablet (Aldactone)Indicati ons:Coronary artery disease involving koi coronary artery of koi heart without angina pectoris,Heart failure, systolic, due to CAD ([facility]),Chronic ischemic heart disease,HTN, goal below 140/90 TAKE ONE TABLET BY MOUTH ONCE DAILY 90 Tablet 3 05/14/2023 Active Losartan Potassium 25 MG Oral Tablet (Cozaar)Indications :PAD (peripheral artery disease) ([facility]),Coronary artery disease involving koi coronary artery of koi heart without angina pectoris TAKE ONE TABLET [...] due to CAD ([facility]),Dyslipidemia, goal LDL below 70,Chronic ischemic heart disease,Tobacco use disorder,Coronary artery disease involving koi coronary artery of koi heart without angina pectoris Inject 140 mg [...] GOLD 2017 classification ([facility]) Take 1 Capsule by mouth 3 times a day as needed for Cough. 30 Capsule 3 08/29/2023 Active ARIPiprazole 2 MG Oral Tablet (Abilify)Indication s:Moderate episode of recurrent major depressive disorder ([facility]) Take 1 Tablet by mouth in the morning. 30 Tablet 1 09/06/2023 Active Fluticasone-Salmete rol 250-50 MCG/ACT Inhalation Aerosol Powder Breath Activated (Wixela Inhub)Indications:C OPD, group D, by GOLD 2017 classification ([facility]) Inhale 1 Puff by mouth in the morning and 1 Puff before bedtime. 60 Each 09/06/2023 Active Naloxone HCl 4 MG/0.1ML Nasal Liquid (Narcan Nasal) Administer 1 spray into 1 nostril for suspected opioid overdose. Seek immediate medical attention. [email or web address] 1 Each 3 09/15/2023 Active Additional Information [...] emphysema 09/22/2021 Atherosclerotic heart diseas e of koi coronary artery with other forms of angina [...] untreated, BMI 43.71 kg/m, NECK: 21 inches, [place] 6/24, sent for bipap titration study 01/11/11 [...] 11/22/2020 10/12/2023 Coronary artery disease invo lving koi coronary artery of koi heart without angina pectoris 07/06/2020 10/12/2023 Chronic [...] 09/23/201305/17 Claudication 05/13/2013 10/12/2023 [employer] Other*[id number] 04/23/2012 09/12/2016 Overview: Study Title: Genomic Markers for Patients with Cardiovascular Disease Project # [id number] Lens Gauger: Comfort Aviles MD [phone] Impotence of organic origin 02/16/2011 01/10/2018 Shortness [...] do you have serious difficulty h earing? No-[place] 11/14/2019 Are you blind or do you [...] Recent Admission: Patient was recently admitted to [facility] on 10/03/2023. The date of discharge was 10/05/23. Discharge report received and reviewed. He was having shortness of breath question of COPD exacerbation versus exacerbation of heart failure with reduced ejection fraction versus CAD. There were plans for cardiac catheterization on 10/08/2023 at [facility]. Cardiac catheterization revealed coronary artery disease that is hemodynamically insignificant. Prior stents patent. Mild luminal irregularities. 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 HPI: On discharge she was prescribed doxycycline for 5 days and prednisone for 9 days. Continues anticoagulation with Eliquis and Plavix. Potassium, spironolactone, torsemide, losartan and metolazone wereheld upon discharge, nonetheless he was started back on torsemide by his gunite mixer. Will see Dr Graff from Pulmonary Medicine [...] problem. He is planning restarting BiPAP soon, [facility] is his DME provider. [...] Thoracic aortic aneurysm without rupture ([facility]) I71.20 Basal cell carcinoma (BCC) of right ala nasi C44.311 Squamous cell carcinoma of ala nasi C44.321 COPD, group D, by GOLD 2017 classification ([facility]) J44.9 Basal cell carcinoma (BCC) of right nasal tip C44.311 Closed fracture of right ankle with routine healing S82.891D PVD (peripheral vascular disease) ([facility]) I73.9 Controlled substance agreement signed Z79.899 LBBB (left bundle branch block) I44.7 Biventricular ICD (implantable cardioverter-defibrillator) in place Z95.810 Tobacco dependence F17.200 Adjustment disorder with anxious mood F43.22 Pulmonary emphysema ([facility]) J43.9 Atherosclerotic heart disease of koi coronary artery with other forms of angina pectoris ([facility]) I25.118 Moderate episode of recurrent major depressive disorder ([facility]) F33.1 Elevated uric acid in blood E79.0 Right lower lobe pulmonary nodule R91.1 Presence of coronary angioplasty implant and graft Z95.5 Chronic bilateral low back pain without sciatica M54.50, G89.29 Juxtarenal abdominal aortic aneurysm (AAA) without rupture ([facility]) I71.42 Other persistent atrial fibrillation ([facility]) I48.19 Alcohol consumption binge drinking F10.10 Claustrophobia F40.240 Positive colorectal cancer screening using Cologuard test R19.5 Chronic systolic congestive heart failure (HCC) I50.22 Cardiomyopathy ([facility]) I42.9 Neuropathic pain of both feet G57.93 [...] for suspectedopioid overdose. Seek immediate medical attention. [email or web address] (Patient not taking: Reported on 10/12/2023) 1 [...] canal normal. Nose: Nose normal. Mouth/Throat: Lips: [place]. Mouth: Mucous membranes are moist. Pharynx: Oropharynx [...] for Pain, Severe. Coronary artery disease involving koi coronary artery of koi heart without angina pectoris Chronic systolic congestive [...] this encounter Nursing Notes * Faith Villalba, [facility] - 10/12/2023 3:24 PM EST The [...] Upcoming Encounters Date Type Department Care Team ([facility] st Contact Info) Description 10/16/2023 11:30 AM EDT Office Visit Podiatry [facility] [address] [facility] [address] [place] [address] Willard Mejia, SLIM [address] [place] [address] 10/19/2023 12:30 PM EDT Home Visit [facility] [address] [place] [address] aMyra Moyer, CLARENCE [address] [place] [address] 10/19/2023 2:50 PM EDT Office Visit [facility] [address] [place] [address] Buster Jessica MD [address] [place] [address] 10/26/2023 1:30 PM EDT Office Visit [facility] [address] [place] [address] Buster Jessica MD [address] [place] [address] 10/29/2023 2:30 PM EDT Imaging Radiology [facility] [address] [facility] [address] [facility] [place] [address] 10/29/2023 3:00 PM EDT Office Visit Pulmonary Medicine, [facility] [address] [facility] [place] [address] Ej Noble MD [address] [facility] [place] [address] 11/01/2023 1:30 PM EDT Telemedicine [facility] [address] [place] [address] Grisel Richter CRNP [address] [place] [address] Clary Eastman, Community [facility] Protective Signal Repairer [address] [facility] [place] [address] 11/21/2023 10:55 AM EDT Hospital Encounter [facility], Operating Room [facility] [address] [place] [phone] Freeman Beaulieu, DO [address] [place] [phone] 11/21/2023 10:55 AM EDT - 11/21/2023 11:20 AM EDT Surgery OR [facility], Operating Room [facility] [address] [place] [phone] Freeman Beaulieu, [address] [place] [phone] INJECTION SACROILIAC JOINT 04/22/2024 9:30 AM EDT Cardiac Studies Cardiology, [facility] [address] [place] [address] [facility] [address] [place] [address] 05/19/2024 9:30 AM EDT Appointment Radiology, Matt [address] [address] Scheduled Orders Name Type Priority [...] exists DISCUSS TOBACCO CESSATION (REFER TO SMARTSET #3564) 06/02/2023 06/02/2022, 07/21/2020 Depression, Most Recent Score [...] 09/10/2008 LUNG CANCER SCREENING - USE SMARTSET 58785 Completed 08/22/2022, 05/22/2022, 02/21/2021, Additional history exists [...] this encounter Medical Devices Implanted Type Area Cotton Agent Device Identifier Shelf Expiration Date Model / Serial / Lot 32mm X 109mm, Zenith Fenestrated Aaa Endovascular Proximal Body Graft, Two Proximal Internal Stent Implanted:Qty: 1 on 04/15/2018 by Evens Hoyt MD at [place] [facility] N/A: Aorta [employer] 03/20/2021 ZFKEDAR-P-2- 32-109-R / / [id number] Stent Graft [id number] - [id number] - [id number] Implanted:Qty: 1 on 04/15/2018 by Evens Hoyt MD at OR [facility] Right: Renal Artery GETINGE : MAQUET 11/30/2020 03339 / [id number] / [id number] Stent Graft [id number] - [id number] - [id number] Implanted:Qty: 1 on 04/15/2018 by Evens Hoyt MD at OR [facility] Right: Renal Artery GETINGE : MAQUET 11/30/2020 87488 / [id number] / [id number] 28mm X 76mm Distal, 12mm Ipsilateral Leg, Zenith Fenestrated Aaa Endovascular Distal Bifurcated Body Graft Implanted:Qty: 1 on 04/15/2018 by Evens Hoyt MD at OR [facility] N/A: Aorta [employer] 03/20/2021 ZFKEDAR-D-12 -28-76-C / / [id number] Graft Iliac Leg Spirlz 87g43ol - [id number] Implanted:Qty: 1 on 04/15/2018 by Evens Hoyt MD at OR [facility] Left: Iliac [employer] 09/14/2020 [id number] / / [id number] Graft Iliac Leg Spirlz 99m35im - [id number] Implanted:Qty: 1 on 04/15/2018 by Evens Hoyt MD at OR [facility] Right: Iliac [employer] 11/09/2020 [id number] / / [id number] Transfixation Pin 6mm 294.950 - [id number] Implanted:Qty: 1 on 11/14/2019 by Mayank Friedman MD at OR [facility] Right: Ankle SYNTHES 294.950 / / Description:transfixation pi n Screw Schanz 5.8mji333kk - [id number] Implanted:Qty: 2 on 11/14/2019 by Mayank Friedman MD at OR [facility] Right: Leg Lower SYNTHES 294.786SH A / / Description:self drilling sh antz screws 5.0mm x 200mm Esthela Trauma 2.7 Lock Screw 16mm Implanted:Qty: 2 on 11/27/2019 by Donavan Ramirez Jr., MD at OR [facility] Right: Ankle ESTHELA : TRAUMA [id number] / / Description:hardware set Esthela Trauma 2.7 Lock Screw 14mm Implanted:Qty: 1 on 11/27/2019 by Donavan Ramirez Jr., MD at OR [facility] Right: Ankle ESTHELA : TRAUMA [id number] / / Esthela Trauma 3.5 Screw 14mm Implanted:Qty: 1 on 11/27/2019 by Donaavn Ramirez Jr., MD at OR [facility] Right: Ankle ESTHELA : TRAUMA [id number] / / Description:hardware set [place] Trauma 3.5 Screw 18mm Implanted:Qty: 1 on 11/27/2019 by Donavan Ramirez Jr., MD at OR [facility] Right: Ankle ESTHELA : TRAUMA [id number] / / Description:hardware set [place] 3.5 Lockscrew 16mm Implanted:Qty: 1 on 11/27/2019 by Donavan Ramirez Jr., MD at OR [facility] Right: Ankle [id number] / / Esthela 2.0 Plate Implanted:Qty: 1 on 11/27/2019 by Donavan Ramirez Jr., MD at OR [facility] Right: Ankle [id number] / / [place] 2.0 Lock Screw Implanted:Qty: 2 on 11/27/2019 by Donavan Ramirez Jr., MD at OR [facility] Right: Ankle [id number] / / Esthela 2.0 Lock Screw Implanted:Qty: 1 on 11/27/2019 by Donavan Ramirez Jr., MD at OR [facility] Right: Ankle [id number] / / Esthela 2.0 Lock Screw Implanted:Qty: 1 on 11/27/2019 by Donavan Ramirez Jr., MD at OR [facility] Right: Ankle [id number] / / Plate Fib 40- - [id number] Implanted:Qty: 1 on 11/27/2019 by Donavan Ramirez Jr., MD at OR [facility] Right: Ankle ESTHELA : TRAUMA / / [...] pain without sciatica Coronary artery disease involving koi coronary artery of koi heart without angina pectoris Chronic systolic congestive [...] the patient have Health Care Power of Spray Gun Striper? No Full Code 02/17/2019 12:06 PM 02/18/2019 1:09 PM This order reflects the patients wishes and were consensually agreed upon. Question Answer Comments Discussion of Advance Directives occurred with: Not Discussed Does the patient have a Living Will? No Does the patient have Health Care Power of Spray Gun Striper? No Full Code 04/15/2018 12:43 PM 04/16/2018 2:43 PM This order reflects the patients wishes and were consensually agreed upon. Care Teams Pipe Layer Relationship Specialty Start Date End [place] [address] PCP - General Family Medicine 09/11/22 documented as of this encounter"
--- OUTSIDE RECORDS SUMMARY | 2023-12-11 18:56 | External Medical Summary ---
Author Name Unknown Address Unknown Organization K01:[facility] [place] [address] [place] [address] Laboratory Report Ordering Provider Test Date Status YOHAN CARNEY 10/08/2023 07:39:41 Final Observation Date Value Abnormality Reference (Units ) Status BUN 10/08/2023 07:39:41 44 Above high normal 6-20 (mg/dL) Final Creatinine 10/08/2023 07:39:41 1.3 Above high normal 0.6-1.2 (mg/dL) Final Glomerular filtration rate/1.73 sq M.predicted [Volume Rate/Area] in Serum, Plasma or Blood by Creatinine-based formula (CKD-EPI) 10/08/2023 07:39:41 59 Below low normal >=60 (mL/min) Final eGFR is calculated based on the CKD-EPI 2020 equation SODIUM 10/08/2023 07:39:41 137 135-146 (m mol/L) Final Potassium 10/08/2023 07:39:41 3.9 3.5-5.1 (m mol/L) Final Cl 10/08/2023 07:39:41 98 98-107 (mm ol/L) Final CO2 10/08/2023 07:39:41 28 22-32 (mmo l/L) Final Anion gap 10/08/2023 07:39:41 11 7-15 (mmol /L) Final Glucose 10/08/2023 07:39:41 147 Above high normal 70 -120 (mg/dL) Final Calcium 10/08/2023 07:39:41 8.9 8.4-10.2 ( mg/dL) Final Albumin 10/08/2023 07:39:41 4.1 3.8-5.0 (g /dL) Final Phosphate 10/08/2023 07:39:41 2.7 2.5-4.8 (m g/dL) Final Performing Location LABORATORY [facility] - [address] [place] [address]
--- OUTSIDE RECORDS SUMMARY | 2023-12-11 18:56 | External Medical Summary | Summary of Care ---
Author Name Unknown Organization [facility] Address [address] [place] [address] Phone [phone] Care Team Providers Care Repairer Engine Production Name Role Phone Buster Jessica MD Primary Care P [facility] Reason for Visit * Reason Onset Date Comments [facility]: Screening 10/09/2023 Encounter Details Date Type Department Care Team (Late st Contact Info) Description 10/09/2023 Telephone [facility], [facility] [address] [facility] [place] [id number] [facility], Nurse [facility] [address] [place] [address] [facility]: Screening Allergies Active Allergy Reactions Criticality Noted Date Comments Atorvastatin Muscle pain,Unknown 01/18/2015 Medication intolerance, not an allergy Sacubitril-Valsartan Other (Please comment) 09/17/2020 Throat swelled Sacubitril High 07/20/2023 Other Reaction(s): THROAT SWELLING Simvastatin Low 06/23/2022 Other reaction(s): MUSCLE ACHES Valsartan High 07/20/2023 Other Reaction(s): THROAT SWELLING documented as of this encounter (statuses as of 10/09/2023) Medications Medication Sig Dispensed Refills Start Date End Date Status Torsemide 100 MG Oral Tablet (Demadex)Indications :Heart failure, systolic, due to CAD ([facility]) Take 1 tablet by mouth every [...] TN, goal below 140/90,Paroxysmal atrial fibrillation ([facility]),LBBB (left bundle branch block) TAKE 2 TABLETS BY MOUTH ONCE DAILY IN THE MORNING AND ONE TAB IN THE EVENING 270 Tablet 3 02/07/2023 Active Metoprolol Succinate ER 100 MG Oral Tablet Extended Release 24 Hour (toPROL XL) TAKE ONE TABLET BY MOUTH ONCE DAILY 90 Tablet 3 03/08/2023 Active Clopidogrel Bisulfate 75 MG Oral Tablet (pLAVix)Indications: PAD (peripheral artery disease) ([facility]),Coronary artery disease involving samish coronary artery of samish heart without angina pectoris TAKE ONE TABLET BY MOUTH ONCE DAILY 90 Tablet 3 03/13/2023 Active Albuterol Sulfate (2.5 MG/3ML) 0.083% Inhalation Nebulization Solution (Proventil)Indicatio ns:COPD, group D, by GOLD 2017 classification ([facility]) Inhale 1 Vial via nebulizer every 4 hours as needed for Wheezing. 75 mL 1 04/23/2023 Active Famotidine 20 MG Oral Tablet (Pepcid) TAKE 1 TABLET BY MOUTH TWICE DAILY (MORNING AND AT BEDTIME) 180 Tablet 3 04/30/2023 Active Spironolactone 25 MG Oral Tablet (Aldactone)Indicatio ns:Coronary artery disease involving samish coronary artery of samish heart without angina pectoris,Heart failure, systolic, due to CAD ([facility]),Chronic ischemic heart disease,HTN, goal below 140/90 TAKE ONE TABLET BY MOUTH ONCE DAILY 90 Tablet 3 05/14/2023 Active Losartan Potassium 25 MG Oral Tablet (Cozaar)Indications: PAD (peripheral artery disease) ([facility]),Coronary artery disease involving samish coronary artery of samish heart without angina pectoris TAKE ONE TABLET [...] apnea,Heart failure, systolic, due to CAD ([facility]),Dyslipidemia, goal LDL below 70,Chronic ischemic heart disease,Tobacco use disorder,Coronary artery disease involving samish coronary artery of samish heart without angina pectoris Inject 140 mg [...] Hour (Toprol XL)Indications:Persi stent atrial fibrillation ([facility]),Acute on chronic systolic (congestive) heart failure ([facility]) One tablet by mouth daily at bedtime, this is in addition to the previous prescription for 100 milligrams daily in the morning. 90 Tablet 3 08/23/2023 Active Digoxin 125 MCG Oral Tablet (Lanoxin) Take 1 Tablet by mouth in the morning. 90 Tablet 3 08/23/2023 Active Benzonatate 100 MG Oral CapsuleIndications:C OPD, group D, by GOLD 2017 classification ([facility]) Take 1 Capsule by mouth 3 times a day as needed for Cough. 30 Capsule 3 08/29/2023 Active ARIPiprazole 2 MG Oral Tablet (Abilify)Indications :Moderate episode of recurrent major depressive disorder ([facility]) Take 1 Tablet by mouth in the morning. 30 Tablet 1 09/06/2023 Active Gabapentin 300 MG Oral Capsule (Neurontin)Indicatio ns:Neuropathic pain of both feet Take 1 Capsule by mouth every evening. 30 Capsule 1 09/06/2023 Active Fluticasone-Salmeter ol 250-50 MCG/ACT Inhalation Aerosol Powder Breath Activated (Wixela Inhub)Indications:CO PD, group D, by GOLD 2017 classification (HCC) Inhale 1 Puff by mouth in the morning and 1 Puff before bedtime. 60 Each 12 09/06/2023 Active Naloxone HCl 4 MG/0.1ML Nasal Liquid (Narcan Nasal) Administer 1 spray into 1 nostril for suspected opioid overdose. Seek immediate medical attention. [email or web address]?v=[email or web address] 1 Each 3 09/15/2023 Active Tamsulosin HCl [...] as of this encounter (statuses as of 10/09/2023) Active Problems Problem Noted Date Diagnosed Date [...] fibrillation 09/22/2021 Atherosclerotic heart diseas e of samish coronary artery with other forms of angina pectoris 09/22/2021 Tobacco dependence 03/07/2021 Adjustment disorder with anxious mood 03/07/2021 Biventricular ICD (implantab le cardioverter-defibrillator) in place 12/23/2020 LBBB (left bundle branch block) 11/22/2020 Chronic systolic HF (heart failure) 11/22/2020 Controlled substance agreement signed 09/02/2020 Coronary artery disease invo lving samish coronary artery of samish heart without angina pectoris 07/06/2020 Chronic systolic [...] untreated, BMI 43.71 kg/m, NECK: 21 inches, [place] 6/24, sent for bipap titration study 01/11/11 case per P completed ICD-10 update of inactive term BMI 35-39 ISOLATED (SEE ACTUAL BMI) 01/17/2010 Overview: Per Obesity Protocol, #19 BPH without obstruction/lower urinary tract symp toms 08/19/2009 Dyslipidemia, goal LDL below 70 07/21/2009 Overview: Per Lipid Taxonomy. CHR ISCHEMIC HRT DIS NOS documented as of this encounter (statuses as of 10/09/2023) Resolved Problems Problem Noted Date Diagnosed Date [...] Osteoarthritis of knee 09/23/201305/17 [employer] Other*[id number] 04/23/2012 09/12/2016 Overview: Study Title: Genomic Markers for Patients with Cardiovascular Disease Project # [id number] Epidemiology Internship: Comfort Aviles MD [phone] Impotence of organic origin 02/16/2011 01/10/2018 Shortness [...] as of this encounter (statuses as of 10/09/2023) Immunizations Name Administration Dates Next Due COVID-19 [...] do you have serious difficulty h earing? No-NORTHWAY 11/14/2019 Are you blind or do you [...] encounter Miscellaneous Notes * Telephone Encounter - Mag Moore LPN - 10/09/2023 12:38 PM EST Dago Gunter was referred as a potential candidate for enrollment for [facility]. A review of this chart was completed and: Dago meets criteria for [facility]. Jump to Initiation Referring care team was notified via : Epic communication documented in this encounter Plan of Treatment Upcoming Encounters Date Type Department Care Team ([facility] Contact Info) Description 10/11/2023 3:00 PM EST Telemedicine [facility], [facility] [address] [place] [address] Grisel Rcihter CRNP [address] [place] [address] Clary Eastamn, [facility] Fiber Optic Central Office Installer [address] [place] [address] 10/12/2023 2:50 PM EST Office Visit [address] [phone] Buster Jessica MD [address] [place] [address] 10/16/2023 11:30 AM EDT Office Visit Podiatry [address] [place] [phone] Willard Mejia, DPM [address] [place] [address] 10/19/2023 12:30 PM EDT Home Visit [facility], [facility] [address] [place] [address] Lisa Tenorio, RN [address] [place] [address] 10/26/2023 1:30 PM EDT Office Visit [address] [phone] Buster Jessica MD [address] [place] [address] 10/29/2023 2:30 PM EDT Imaging Radiology [facility] 1st [facility] [address] [place] [address] 10/29/2023 3:00 PM EDT Office Visit Pulmonary Medicine, [facility] [address] [place] [address] Ej Noble MD [address] [place] [address] 11/21/2023 10:55 AM EDT Hospital Encounter [facility], Operating Room [facility] [address] [place] [address] Freeman Beaulieu, DO [address] [place] [address] 11/21/2023 10:55 AM EDT - 11/21/2023 11:20 AM EDT Surgery OR [facility], Operating Room [facility] [address] [place] [phone] Freeman Beaulieu, [address] [place] [address] INJECTION SACROILIAC JOINT 04/22/2024 9:30 AM EDT Cardiac Studies Cardiology, [facility] [place] [address] [place] [address] [place] [address] 05/19/2024 9:30 AM EDT Appointment Radiology, [address], [place] [address] Scheduled Procedures Name Priority Associated Diagnoses [...] exists DISCUSS TOBACCO CESSATION (REFER TO SMARTSET #3879) 06/02/2023 06/02/2022, 07/21/2020 Depression, Most Recent Score [...] 09/10/2008 LUNG CANCER SCREENING - USE SMARTSET 76028 Completed 08/22/2022, 05/22/2022, 02/21/2021, Additional history exists [...] this encounter Medical Devices Implanted Type Area Operations Research Manager Device Identifier Shelf Expiration Date Model / Serial / Lot 32mm X 109mm, Zenith Fenestrated Aaa Endovascular Proximal Body Graft, Two Proximal Internal Stent Implanted:Qty: 1 on 04/15/2018 by Evens Hoyt MD at [place] [facility] N/A: Aorta [employer] 03/20/2021 ZFEN-P-2- 32-109-R / / [id number] Stent Graft [id number] - [id number] - [id number] Implanted:Qty: 1 on 04/15/2018 by Evens Hoyt MD at OR [facility] Right: Renal Artery GETINGE : JULIANNE 11/30/2020 27302 / [id number] / [id number] Stent Graft [id number] - [id number] - [id number] Implanted:Qty: 1 on 04/15/2018 by Evens Hoyt MD at OR [facility] Right: Renal Artery GETINGE : JULIANNE 11/30/2020 [id number] / [id number] / [id number] 28mm X 76mm Distal, 12mm Ipsilateral Leg, Zenith Fenestrated Aaa Endovascular Distal Bifurcated Body Graft Implanted:Qty: 1 on 04/15/2018 by Evens Hoyt MD at OR [facility] N/A: Aorta [employer] 03/20/2021 ZFEN-D-12 -28-76-C / / [id number] Graft Iliac Leg Spirlz 37i98tz - [id number] Implanted:Qty: 1 on 04/15/2018 by Evens Hoyt MD at OR [facility] Left: Iliac [employer] 09/14/2020 [id number] / / [id number] Graft Iliac Leg Spirlz 20r97tz - [id number] Implanted:Qty: 1 on 04/15/2018 by Evens Hoyt MD at [place] [facility] Right: Iliac [employer] 11/09/2020 [id number] / / [id number] Transfixation Pin 6mm 294.950 - [id number] Implanted:Qty: 1 on 11/14/2019 by Mayank Friedman MD at OR [facility] Right: Ankle SYNTHES 294.950 / / Description:transfixation pi n Screw Schanz 5.8adk358qf - [id number] Implanted:Qty: 2 on 11/14/2019 by Mayank Friedman MD at OR [facility] Right: Leg Lower SYNTHES 294.786SH A / / Description:self drilling sh antz screws 5.0mm x 200mm [place] Trauma 2.7 Lock Screw 16mm Implanted:Qty: 2 on 11/27/2019 by Donavan Ramirez Jr., MD at [place] [facility] Right: Ankle ESTHELA : TRAUMA [id number] / / Description:hardware set [place] Trauma 2.7 Lock Screw 14mm Implanted:Qty: 1 on 11/27/2019 by Donavan Ramirez Jr., MD at OR [facility] Right: Ankle ESTHELA : TRAUMA [id number] / / Esthela Trauma 3.5 Screw 14mm Implanted:Qty: 1 on 11/27/2019 by Donavan Ramirez Jr., MD at OR [facility] Right: Ankle ESTHELA : TRAUMA [id number] / / Description:hardware set [place] Trauma 3.5 Screw 18mm Implanted:Qty: 1 on 11/27/2019 by Donavan Ramirez Jr., MD at OR [facility] Right: Ankle ESTHELA : TRAUMA [id number] / / Description:hardware set [place] 3.5 Lockscrew 16mm Implanted:Qty: 1 on 11/27/2019 by Donavan Ramirez Jr., MD at OR [facility] Right: Ankle [id number] / / Esthela 2.0 Plate Implanted:Qty: 1 on 11/27/2019 by Donavan Ramirez Jr., MD at OR [facility] Right: Ankle [id number] / / Esthela 2.0 Lock Screw Implanted:Qty: 2 on 11/27/2019 by Donavan Ramirez Jr., MD at OR [facility] Right: Ankle [id number] / / [place] 2.0 Lock Screw Implanted:Qty: 1 on 11/27/2019 by Donavan Ramirez Jr., MD at OR [facility] Right: Ankle [id number] / / Esthela 2.0 Lock Screw Implanted:Qty: 1 on 11/27/2019 by Donavan Ramirez Jr., MD at OR [facility] Right: Ankle [id number] / / Plate Fib - [id number] Implanted:Qty: 1 on 11/27/2019 by Donavan Ramirez Jr., MD at [facility] Right: Ankle ESTHELA : TRAUMA / / [...] the patient have Health Care Power of Wax Pourer? No Full Code 02/17/2019 12:06 PM 02/18/2019 1:09 PM This order reflects the patients wishes and were consensually agreed upon. Question Answer Comments Discussion of Advance Directives occurred with: Not Discussed Does the patient have a Living Will? No Does the patient have Health Care Power of Wax Pourer? No Full Code 04/15/2018 12:43 PM 04/16/2018 2:43 PM This order reflects the patients wishes and were consensually agreed upon. Care Teams Repairer Engine Production Relationship Specialty Start Date End Date Buster Jessica MD [address] [place] [address] PCP - General Family Medicine 09/11/22 documented as of this encounter
--- OUTSIDE RECORDS SUMMARY | 2023-12-11 18:56 | External Medical Summary | Summary of Care ---
Author Name Unknown Organization [facility] Address [address] [place] [address] Phone [phone] Care Team Providers Care Burring Wheel Operator Name Role Phone Buster Jessica MD Primary Care P [facility] Reason for Visit * Reason Onset Date Comments [facility]: Screening 10/09/2023 Encounter Details Date Type Department Care Team (Late st Contact Info) Description 10/09/2023 Telephone [facility], [facility] [address] [facility] [place] [id number] [facility], Nurse [facility] [address] [facility] [place] [address] [facility]: Screening Allergies Active Allergy [...] ReleaseIndications:H TN, goal below 140/90,Paroxysmal atrial fibrillation ([facility]),LBBB (left bundle branch block) TAKE 2 TABLETS BY MOUTH ONCE DAILY IN THE MORNING AND ONE TAB IN THE EVENING 270 Tablet 3 02/07/2023 Active Metoprolol Succinate ER 100 MG Oral Tablet Extended Release 24 Hour (toPROL XL) TAKE ONE TABLET BY MOUTH ONCE DAILY 90 Tablet 3 03/08/2023 Active Clopidogrel Bisulfate 75 MG Oral Tablet (pLAVix)Indications: PAD (peripheral artery disease) ([facility]),Coronary artery disease involving [place] coronary artery of [place] heart without angina pectoris TAKE ONE TABLET [...] Tablet (Aldactone)Indicatio ns:Coronary artery disease involving [place] coronary artery of [place] heart without angina pectoris,Heart failure, systolic, due to CAD ([facility]),Chronic ischemic heart disease,HTN, goal below 140/90 TAKE ONE TABLET BY MOUTH ONCE DAILY 90 Tablet 3 05/14/2023 Active Losartan Potassium 25 MG Oral Tablet (Cozaar)Indications: PAD (peripheral artery disease) ([facility]),Coronary artery disease involving [place] coronary artery of [place] heart without angina pectoris TAKE ONE TABLET [...] disease,Tobacco use disorder,Coronary artery disease involving [place] coronary artery of [place] heart without angina pectoris Inject 140 mg [...] 24 Hour (Toprol XL)Indications:Persi stent atrial fibrillation ([facility]),Acute on chronic systolic (congestive) heart failure ([facility]) One tablet by mouth daily at bedtime, this is in addition to the previous prescription for 100 milligrams daily in the morning. 90 Tablet 3 08/23/2023 Active Digoxin 125 MCG Oral Tablet (Lanoxin) Take 1 Tablet by mouth in the morning. 90 Tablet 3 08/23/2023 Active Benzonatate 100 MG Oral CapsuleIndications:C OPD, group D, by GOLD 2017 classification ([facility]) Take 1 Capsule by mouth 3 times a day as needed for Cough. 30 Capsule 3 08/29/2023 Active ARIPiprazole 2 MG Oral Tablet (Abilify)Indications :Moderate episode of recurrent major depressive disorder ([facility]) Take 1 Tablet by mouth in the [...] suspected opioid overdose. Seek immediate medical attention. [email or web address]?v=[email or web address] 1 Each 3 09/15/2023 Active Tamsulosin HCl [...] fibrillation 09/22/2021 Atherosclerotic heart diseas e of [place] coronary artery with other forms of angina pectoris 09/22/2021 Tobacco dependence 03/07/2021 Adjustment disorder with anxious mood 03/07/2021 Biventricular ICD (implantab le cardioverter-defibrillator) in place 12/23/2020 LBBB (left bundle branch block) 11/22/2020 Chronic systolic HF (heart failure) 11/22/2020 Controlled substance agreement signed 09/02/2020 Coronary artery disease invo lving [place] coronary artery of [place] heart without angina pectoris 07/06/2020 Chronic systolic [...] untreated, BMI 43.71 kg/m, NECK: 21 inches, [place] 6/24, sent for bipap titration study 01/11/11 [...] Osteoarthritis of knee 09/23/201305/17 [employer] Other*[id number] 04/23/2012 09/12/2016 Overview: Study Title: Genomic Markers for Patients with Cardiovascular Disease Project # [id number] Residential Real Estate Appraiser: Comfort Aviles MD [phone] Impotence of organic origin 02/16/2011 01/10/2018 Shortness [...] do you have serious difficulty h earing? No-VENETIE 11/14/2019 Are you blind or do you [...] Department Care Team (Latest Contact Info) Description 10/12/2023 2:50 PM EST Office Visit [facility] [address] [place] [phone] Buster Jessica MD [address] [place] [address] 10/16/2023 11:30 AM EDT Office Visit Podiatry [address] [place] [address] Willard Mejia, DPM [address] [place] [address] 10/26/2023 1:30 PM EDT Office Visit [facility] [address] [place] [phone] Buster Jessica MD [address] [place] [address] 10/29/2023 2:30 PM EDT Imaging Radiology [facility] 1st [facility] [address] [facility] [place] [address] 10/29/2023 3:00 PM EDT Office Visit Pulmonary Medicine, [facility] [address] [facility] [place] [address] Ej Noble MD [address] [place] [address] 11/21/2023 10:55 AM EDT Hospital Encounter [facility] [place] [address] Freeman Beaulieu DO [address] [place] [address] 11/21/2023 10:55 AM EDT - 11/21/2023 11:20 AM EDT Surgery OR [facility], Operating Room [facility] [address] [place] [address] Freeman Beaulieu DO [address] [place] [address] INJECTION SACROILIAC JOINT 04/22/2024 9:30 AM EDT Cardiac Studies Cardiology, [facility] [address] [place] [address] Fredy Shaw [facility] [address] [place] [address] 05/19/2024 9:30 AM EDT Appointment Radiology, [place] [id number] [place] [address] Scheduled Procedures Name Priority Associated [...] 09/10/2008 LUNG CANCER SCREENING - USE SMARTSET 38392 Completed 08/22/2022, 05/22/2022, 02/21/2021, Additional history exists [...] encounter Medical Devices Implanted Type Area Wood Hacker Device Identifier Shelf Expiration Date Model / Serial / Lot 32mm X 109mm, Zenith Fenestrated Aaa Endovascular Proximal Body Graft, Two Proximal Internal Stent Implanted:Qty: 1 on 04/15/2018 by Evens Hoyt MD at OR [facility] N/A: Aorta [facility] 03/20/2021 ZFEN-P-2- 32-109-R / / [id number] Stent Graft [id number] - [id number] - [id number] Implanted:Qty: 1 on 04/15/2018 by Evens Hoyt MD at OR [facility] Right: Renal Artery GETINGE : MAQUET 11/30/2020 12570 / [id number] / [id number] Stent Graft [id number] - [id number] - [id number] Implanted:Qty: 1 on 04/15/2018 by Evens Hoyt MD at OR [facility] Right: Renal Artery GETINGE : MAQUET 11/30/2020 97321 / [id number] / [id number] 28mm X 76mm Distal, 12mm Ipsilateral Leg, Zenith Fenestrated Aaa Endovascular Distal Bifurcated Body Graft Implanted:Qty: 1 on 04/15/2018 by Evens Hoyt MD at OR [facility] N/A: Aorta [employer] 03/20/2021 SARAD-12 -28-76-C / / [id number] Graft Iliac Leg Spirlz [id number] - [id number] Implanted:Qty: 1 on 04/15/2018 by Evens Hoyt MD at OR [facility] Left: Iliac [employer] 09/14/2020 [id number] / / [id number] Graft Iliac Leg Spirlz [id number] - [id number] Implanted:Qty: 1 on 04/15/2018 by Evens Hoyt MD at OR [facility] Right: Iliac [employer] 11/09/2020 [id number] / / [id number] Transfixation Pin 6mm 294.950 - [id number] Implanted:Qty: 1 on 11/14/2019 by Mayank Friedman MD at OR [facility] Right: Ankle SYNTHES 294.950 / / Description:transfixation pi n Screw Schanz [id number] - [id number] Implanted:Qty: 2 on 11/14/2019 by Mayank Friedman MD at OR [facility] Right: Leg Lower SYNTHES 294.786SH A / / Description:self drilling sh antz screws 5.0mm x 200mm Esthela Trauma 2.7 Lock Screw 16mm Implanted:Qty: 2 on 11/27/2019 by Donavan Ramirez Jr., MD at OR [facility] Right: Ankle ESTHELA : TRAUMA [id number] / / Description:hardware set [place] Trauma 2.7 Lock Screw 14mm Implanted:Qty: 1 on 11/27/2019 by Donavan Ramirez Jr., MD at OR [facility] Right: Ankle ESTHELA : TRAUMA [id number] / / Esthela Trauma 3.5 Screw 14mm Implanted:Qty: 1 on 11/27/2019 by Donavan Ramirez Jr., MD at OR [facility] Right: Ankle ESTHELA : TRAUMA [id number] / / Description:hardware set [place] Trauma 3.5 Screw 18mm Implanted:Qty: 1 on 11/27/2019 by Donavan Ramirez Jr., MD at OR [facility] Right: Ankle ESTHELA : TRAUMA [id number] / / Description:hardware set [place]hel[place] 3.5 Lockscrew 16mm Implanted:Qty: 1 on 11/27/2019 by Donavan Ramirez Jr., MD at OR [facility] Right: Ankle [id number] / / [place] 2.0 Plate Implanted:Qty: 1 on 11/27/2019 by Donavan Ramirez Jr., MD at OR [facility] Right: Ankle [id number] / / Esthela 2.0 Lock Screw Implanted:Qty: 2 on 11/27/2019 by Donavan Ramirez Jr., MD at OR [facility] Right: Ankle [id number] / / [place] 2.0 Lock Screw Implanted:Qty: 1 on 11/27/2019 by Donavan Ramirez Jr., MD at OR [facility] Right: Ankle 189962 / / Esthela 2.0 Lock Screw Implanted:Qty: 1 on 11/27/2019 by Donavan Ramirez Jr., MD at OR [facility] Right: Ankle [id number] / / Plate Fib 5h - - [id number] Implanted:Qty: 1 on 11/27/2019 by Donavan Ramirez [...] the patient have Health Care Power of Slot Tag Inserter? No Full Code 02/17/2019 12:06 PM 02/18/2019 1:09 PM This order reflects the patients wishes and were consensually agreed upon. Question Answer Comments Discussion of Advance Directives occurred with: Not Discussed Does the patient have a Living Will? No Does the patient have Health Care Power of Slot Tag Inserter? No Full Code 04/15/2018 12:43 PM 04/16/2018 2:43 PM This order reflects the patients wishes and were consensually agreed upon. Care Teams Burring Wheel Operator Relationship Specialty Start Date End Date Buster Jessica MD [address] [place] [address] [phone] PCP - General Family Medicine 09/11/22 documented as of this encounter
--- OUTSIDE RECORDS SUMMARY | 2023-12-11 18:56 | External Medical Summary ---
Author Name Unknown Address Unknown Organization [id number]:[facility] [place] [facility] [place] [address] [facility] [address] [place] [address] Laboratory Report Ordering Provider Test Date Status YOHAN CARNEY 10/08/2023 07:39:41 Final Observation Date Value Abnormality Reference (Units ) Status WBC, Total 10/08/2023 07:39:41 11.59 Above high normal 4.00-10.80 (K/uL) Final RBC 10/08/2023 07:39:41 4.08 4.50-5.25 (M/uL) Final Hemoglobin 10/08/2023 07:39:41 12.0 Below low normal 14.0-16.8 (g/dL) Final HCT 10/08/2023 07:39:41 37.6 Below low normal 40.0-48.4 (%) Final MCV 10/08/2023 07:39:41 92.2 82.0-99.5 (fL) Final MCH 10/08/2023 07:39:41 29.4 27.0-34.0 (pg) Final MCHC 10/08/2023 07:39:41 31.9 32.0-36.0 (g/dL) Final RDW 10/08/2023 07:39:41 15.9 11.5-15.5 (%) Final Platelets 10/08/2023 07:39:41 228 140-400 (K/uL) Final MPV 10/08/2023 07:39:41 11.4 6.6-11.1 (fL) Final Nucleated erythrocytes/100 leukocytes [Ratio] in Blood by Automated count 10/08/2023 07:39:41 0 <=0 (/100 WBCs) Final Performing Location [facility] [place] [address] [place] [address]
--- OUTSIDE RECORDS SUMMARY | 2023-12-11 18:56 | External Medical Summary | Summary of Care ---
Author Name Unknown Organization [facility] Address [address] [place] [address] Phone [phone] Care Team Providers Care Belly Dancer Name Role Phone Buster Jessica MD Primary [facility] Reason for Visit * Auth/Cert Specialty Diagnoses / Procedures Referred By Contac t Referred To Contact Diagnoses Acute systolic heart failure (HCC) Acute systolic heart failure (HCC) [I50.21] Procedures CORONARY ANGIOGRAPHY W/LEFT HEART CATH CORONARY ANGIOGRAPHY W/LEFT HEART CATH Referral ID Status Reason Start Date Expiration Date Visits Re quested Visits Authorized [id number] Encounter Details Date Type Department Care Team (Latest Contact Info) Description 10/08/2023 7:02 AM EST - 10/08/2023 11:17 AM EST Hospital Encounter CRS Waiting [facility] [place], Cardiac Recovery Suite Waiting Unit, [address] [place] [address] Thea Wilkes MD [address], [place] [id number] Discharge Disposition: Home - Self Care Allergies Active Allergy Reactions Criticality Noted Date Comments Atorvastatin Muscle pain,Unknown 01/18/2015 Medication intolerance, not an allergy Sacubitril-Valsartan Other (Please comment) 09/17/2020 Throat swelled Sacubitril High 07/20/2023 Other Reaction(s): THROAT SWELLING Simvastatin Low 06/23/2022 Other reaction(s): MUSCLE ACHES Valsartan High 07/20/2023 Other Reaction(s): THROAT SWELLING documented as of this encounter (statuses as of 10/08/2023) Medications Medication Sig Dispensed Refills Start Date [...] ([facility]),Coronary artery disease involving [place] coronary artery [...] ([facility]),Coronary artery disease involving [place] coronary artery [...] suspected opioid overdose. Seek immediate medical attention. [email or web address] 1 Each 3 09/15/2023 Active Tamsulosin HCl 0.4 MG Oral Capsule (Flomax) TAKE 1 CAPSULE BY MOUTH ONCE DAILY IN THE MORNING 90 Capsule 3 09/21/2023 Active Desvenlafaxine Succinate ER 100 MG Oral Tablet Extended Release 24 Hour (Pristiq)Indications :Moderate episode of recurrent major depressive disorder (HCC) Take 1 Tablet by mouth in the morning. 30 Tablet 11 09/21/2023 Active documented as of this encounter (statuses as of 10/08/2023) Active Problems Problem Noted Date Diagnosed Date [...] fibrillation 09/22/2021 Atherosclerotic heart diseas e of [place] coronary artery with other forms of angina pectoris 09/22/2021 Tobacco dependence 03/07/2021 Adjustment disorder with anxious mood 03/07/2021 Biventricular ICD (implantab le cardioverter-defibrillator) in place 12/23/2020 LBBB (left bundle branch block) 11/22/2020 Chronic systolic HF (heart failure) 11/22/2020 Controlled substance agreement signed 09/02/2020 Coronary artery disease invo lving [place] coronary artery of [place] heart without angina pectoris 07/06/2020 Chronic systolic [...] untreated, BMI 43.71 kg/m, NECK: 21 inches, [place] 6/24, sent for bipap titration study 01/11/11 case per P completed ICD-10 update of inactive term BMI 35-39 ISOLATED (SEE ACTUAL BMI) 01/17/2010 Overview: Per Obesity Protocol, #19 BPH without obstruction/lower urinary tract symp toms 08/19/2009 Dyslipidemia, goal LDL below 70 07/21/2009 Overview: Per Lipid Taxonomy. CHR ISCHEMIC HRT DIS NOS documented as of this encounter (statuses as of 10/08/2023) Resolved Problems Problem Noted Date Diagnosed Date [...] Osteoarthritis of knee 09/23/201305/17 [employer] Other*[id number] 04/23/2012 09/12/2016 Overview: Study Title: Genomic Markers for Patients with Cardiovascular Disease Project # [id number] Special Education Director: Comfort Aviles MD [phone] Impotence of organic origin 02/16/2011 01/10/2018 Shortness [...] as of this encounter (statuses as of 10/08/2023) Immunizations Name Administration Dates Next Due COVID-19 [...] Sign Reading Time Taken Comments Blood Pressure 120/86 10/08/2023 9:37 AM EST Pulse 80 10/08/2023 9:37 AM EST Temperature 36.2 C (97.2 F) 10/08/2023 8:52 AM ES T Respiratory Rate 18 10/08/2023 9:37 AM EST Oxygen Saturation 92% 10/08/2023 10: 07 AM EST Inhaled Oxygen Concentration - - Weight 126.2 kg (278 lb 3.5 oz) 10/08/2023 7:09 AM EST Height 177.8 cm (5' 10") 10/08/2023 7:09 AM EST Body Mass Index 39.92 10/08/2023 7:09 AM EST documented in this encounter Functional Status Functional Status Response Date of Assess ment Are you deaf or do you have serious difficulty h earing? No-CHILKAT 11/14/2019 Are you blind or do you [...] No 11/14/2019 documented as of this encounter Discharge Instructions * Discharge Instr - AVS* Poly Avendaño CRNP - 10/08/2023 10:07 AM EST CARDIAC RECOVERY SUITE Discharge Date: 10/08/2023 Check your Patient Education Brochure for further information. Please contact your physician, Dr. Wilkes of the Department of Cardiology at [phone], during business hours for any questions or test results. For after-hour emergencies call [phone] and have your doctor paged. Scheduling Services is available daily between the hours of 8:00 a.m and 9:00 p.m. by calling . The information below provides you with the instructions and the list of medications you need to betaking following discharge from the hospital. If you have any questions, please ask before leaving.Please carry this letter with you when you see your doctor in the clinic. If you have questions, you can reach us at the numbers above. Diet: calorie controlled diet, heart healthy diet, 2 gram sodium diet Progress to prescribed diet as tolerated. If nausea should occur, have clear liquids only until soft foods can be tolerated. Activity: No strenuous activity for 24 hours No lifting or pushing or pulling more than 10 lbs for 3 days with arm used for procedure. A responsible adult must be with the patient for 24 hours after surgery. Rest today and tomorrow, and then increase activity as tolerated. DO NOT operate any appliances and/or machinery or sign legal documents for 24 hours. You may resumedriving in 24 hours. Special Instructions: HOLD Eliquis today. Resume Eliquis tomorrow morning. Radial Artery Catheterization Instructions for Post Care Activity: Do not use the arm we used for your procedure today. Do not lift more than 10 lbs for 3 days with arm used for procedure. A responsible adult must be with the patient for 24 hours after your procedure. Rest today but you may resume your usual activity tomorrow. Do not drive, operate any appliances and/or machinery or sign legal documents for 24 hours due to the anesthesia. You may return to work in 24 hours. You may wash the wrist with soap and water and you may shower. Do not soak the wrist in water without a waterproof bandage until the small incision is healed. If you notice bleeding, increased swelling, tingling in the fingers or pain in your forearm that is not relieved by Tylenol, please seek medical attention. If you develop a fever over 101 degrees F you should contact your strap stitcher. It is normal to have a small amount of discomfort for up to one week following your procedure but this should continue to improve with time, not worsen. If you have any questions or are concerned with how your arm is healing, call the doctor who did your procedure at . Keep the puncture site covered with a dry bandage for 24 hours, then remove the bandage. You shouldreplace it every 24 hours or if it gets wet. This should be done until the puncture site has completely healed. Date you may return to work or school: N/A See your strap stitcher (Dr. Nunez) and your primary care physician (Buster Anguiano MD) as previously scheduled. documented in this encounter H&P Notes * Poly Avendaño CRNP - 10/08/2023 8:12 AM EST HISTORY & PHYSICAL INTERVAL NOTE - Cardiology Service [facility] [place]-[address] [address] History and Physical Update: Name: Dago Gunter Location: CATH/Cath Date: 10/08/2023 Time: 8:12 AM DATE OF HISTORY AND PHYSICAL: 09/18/2023 REFERRED BY: Dr. Nunez Chief Complaint: CHF, known CAD, A-fib I have reviewed the H&P previously performed and examined the patient today. There are no new findings noted. Physical Examination: BP: 106 mmHg/56 mmHg (10/08/23708) Pulse: 62 (10/08/23708) Temp: 36.39 C (10/08/23708) Temp Summary: Temp Min: 36.4 C (97.5 F) Max: 36.4 C (97.5 F) SpO2: 97 % (10/08/23708) O2 flow rate: Supplemental O2 Delivery: Room Air, None (10/08/23708) Cardiac: normal rate and rhythm, no murmur, gallops or rub Lungs: normal respiratory effort, breath sounds normal Right Radial pulse 2+ Allens test normal Right Femoral pulse 1+ Right Femoral Bruit no Right DP pulse 1+ Right PT pulse 1+ IV Contrast Allergy: no Contraindications to dual anti-platelet therapy: No History of anemia: No ASA: 325 mg of ASA given if not on chronic daily ASA (ASA TO BE CHEWED IF GIVEN JUST PRIOR TO CATH) Anticoagulation: Yes - Eliquis: Last Dose 10/05/23 Labs reviewed as indicated below: Latest Reference Range & Units 10/08/23 07:39 Sodium 135 - 146 mmol/L 137 Potassium 3.5 - 5.1 mmol/L 3.9 Chloride 98 - 107 mmol/L 98 CO2 22 - 32 mmol/L 28 BUN 6 - 20 mg/dL 44 (H) Creatinine 0.6 - 1.2 mg/dL 1.3 (H) Estimated Glomerular Filtration Rate >=60 mL/min 59 (L) Anion Gap 7 - 15 mmol/L 11 Glucose 70 - 120 mg/dL 147 (H) Calcium 8.4 - 10.2 mg/dL 8.9 Phosphorus 2.5 - 4.8 mg/dL 2.7 CBC Rpt ! WBC 4.00 - 10.80 K/uL 11.59 (H) HGB 14.0 - 16.8 g/dL 12.0 (L) HCT 40.0 - 48.4 % 37.6 (L) MCV 82.0 - 99.5 fL 92.2 PLT 140 - 400 K/uL 228 Albumin 3.8 - 5.0 g/dL 4.1 (H): Data is abnormally high (L): Data is abnormally low !: Data is abnormal Rpt: View report in Results Review for more information This procedure has been explained to the patient. All questions have been answered. MAYRA Sheets Cardiology 10/08/2023 8:18 AM * Latosha Celeste PA-C - 10/05/2023 7:10 AM EST NOTE COPIED AND PASTED FROM OFFICE NOTE 09/18/23 DR NUNEZ 09/27/23 telephone visit Wt Readings from Last 3 Encounters: 09/27/23 126.2 kg (278 lb 3.2 oz) 09/18/23 122.2 kg (269 lb 4.8 oz) 09/06/23 120.2 kg (265 lb) Wt up 9 lbs at time of primary care visit with worsening shortness of breath. I called and spoke to pt's spouse as he was napping. Plan: For 09/28/23 Take new medication, metolazone 2.5 mg 30 mg prior to torsemide 100 mg in the morning. No afternoon torsemide. Take extra 20 me of potassium chloride. -proceed with usual diuretics for weekend. -repeat bmp on Sunday10/01/22. DO Mj Rojas James J, DO (Physician) Cardiovascular Medicine Pre cardiac catheterization chest x-ray with mild interstitial edema. Continue current dose of diuretic therapy. Proceed with planned for cardiac catheterization. Invasive left ventricular pressure measurements will be helpful with regards to managing the patient's fluid status as well the results of the upcoming echocardiogram. Donavan Nunez DO Progress Notes Donavan Nunez DO (Physician) Cardiovascular Medicine Expand All Collapse All 09/18/2023 Cardiology Follow Up CHIEF COMPLAINT: Generalized fatigue, follow-up of CAD, ischemic cardiomyopathy, chronic congestiveheart failure, persistent atrial fibrillation SUBJECTIVE: Dago "Maira Gunter is a 73 year old male who presents today in follow-up of the above concerns. He was accompanied by his spouse,Ganesh, as per his usual routine. Pieter presents today with ongoing complaint of debilitating fatigue. He states he just does not have any energy. They recently moved into a new home and he has no energy to do the projects that he is interested in and spends his day napping frequently. Denies worsening lower extremity edema or neil chest discomfort. He continues to smoke about one pack of cigarettes per day. At the time his most recent echocardiogram in February, his ejection fraction was graded to be 45%which was relatively stable compared to the previous study performed in 2020 after implantation of his biventricular pacemaker AICD. Prior to cardiac resynchronization therapy his ejection fraction was less than 20% with noted grade III diastolic dysfunction. I had seen the patient as an acute visit in July,. And at that time he described debilitating fatigue. He would attempted to go hunting in [place] as per his usual routine in June and he had to rest and sleep the entire time. At the July visit he was noted to have reverted to a rate controlled atrial fibrillation prompting subsequent direct current cardioversion on 07/24/2023. Sh ortly thereafter however he reverted back to a rate controlled atrial fibrillation. Cardiac history: In 2011, he was noted to have a chronic occlusion of the right coronary artery as well as branch vessel CAD for which medical management was recommended. In December 2018, he underwent evaluation for progressive shortness of breath with interval decline in the ejection fraction of 30%. Medical therapy for systolic heart failure was initiated. In February 2019 he underwent cardiac catheterization at [facility] via right radial artery approach receiving drug-eluting stents to the obtuse marginal branch of the circumflex as well asthe first diagonal branch of the LAD. His LVEDP was elevated at that time 25 millimeters Hg. Repeat cardiac catheterization October, revealed patent stents, known chronic total occlusion ofthe RCA with [id number]-asads collaterals that was unchanged -severe left ventricular systolic dysfunction, LV ejection fraction 20%, in setting of Afib, bundlebranch block, patient underwent Bi V AICD 12/08/2020, proceeded by cardioversion to sinus rhythm inApril, 2020. With subsequent improvement in his ejection fraction as noted on echocardiogram June,. -In 2018 patient underwent FEVAR due to AAA. Followed by vascular surgery -DCCVs performed in 2020, 06/2022, 07/2023 Review of Systems: See HPI for pertinent positives. All others negative, other than those noted in HPI. Problem List Patient Active Problem List Diagnosis Code CHR ISCHEMIC HRT DIS NOS I25.9 Dyslipidemia, goal LDL below 70 E78.5 BPH without obstruction/lower urinary tract symptoms N40.0 BMI 35-39 ISOLATED (SEE ACTUAL BMI) E66.9 Obstructive sleep apnea G47.33 Claudication (HCC) I73.9 Hx of nonmelanoma skin cancer Z85.828 H/O dysplastic nevus Z86.018 Abdominal aortic aneurysm (AAA) without rupture (HCC) I71.40 Thoracic aortic aneurysm without rupture (HCC) I71.20 Basal cell carcinoma (BCC) of right ala nasi C44.311 Squamous cell carcinoma of ala nasi C44.321 COPD, group D, by GOLD 2017 classification ([facility]) J44.9 Heart failure, systolic, due to CAD (HCC) I50.20, I25.10 Basal cell carcinoma (BCC) of right nasal tip C44.311 Closed fracture of right ankle with routine healing S82.891D PAD (peripheral artery disease) ([facility]) I73.9 Coronary artery disease involving [place] coronary artery of [place] heart without angina pectoris I25.10 Chronic systolic heart failure (HCC) I50.22 Controlled substance agreement signed Z79.899 LBBB (left bundle branch block) I44.7 Chronic systolic HF (heart failure) ([facility]) I50.22 Biventricular ICD (implantable cardioverter-defibrillator) in place Z95.810 Tobacco dependence F17.200 Adjustment disorder with anxious mood F43.22 Pulmonary emphysema (HCC) J43.9 Paroxysmal atrial fibrillation (HCC) I48.0 Atherosclerotic heart disease of [place] coronary artery with other forms of angina pectoris (HCC) I25.118 Moderate episode of recurrent major depressive disorder (HCC) F33.1 Elevated uric acid in blood E79.0 Right lower lobe pulmonary nodule R91.1 Presence of coronary angioplasty implant and graft Z95.5 Chronic bilateral low back pain without sciatica M54.50, G89.29 Juxtarenal abdominal aortic aneurysm (AAA) without rupture (HCC) I71.42 Other persistent atrial fibrillation (HCC) I48.19 Alcohol consumption binge drinking F10.10 Claustrophobia F40.240 Positive colorectal cancer screening using Cologuard test R19.5 Atrial fibrillation (HCC) I48.91 Chronic systolic congestive heart failure (HCC) I50.22 Cardiomyopathy (HCC) I42.9 Acute on chronic systolic (congestive) heart failure (HCC) I50.23 Neuropathic pain of both feet G57.93 Social History Tobacco Use Smoking status: Every Day Packs/day: 1.00 Years: 52.00 Additional pack years: 0.00 Total pack years: 52.00 Types: Cigarettes Smokeless tobacco: Never Tobacco comments: pack per day Vaping Use Vaping Use: Never used Substance Use Topics Alcohol use: Yes Comment: rare Drug use: No Allergies Review of patient's allergies indicates: Allergen Reactions Sacubitril Other Reaction(s): THROAT SWELLING Valsartan Other Reaction(s): THROAT SWELLING Atorvastatin Muscle pain and Unknown Medication intolerance, not an allergy Entresto [Sacubitril-Valsartan] Other (Please comment) Throat swelled Simvastatin Other reaction(s): MUSCLE ACHES Current Medications Current Outpatient Medications Medication Sig Dispense Refill Torsemide 100 MG Oral Tablet (Demadex) Take 1 tablet by mouth every morning. Take 1 tab on Sunday, Sunday and Sunday afternoon. (Patient taking differently: Take 1 tablet by mouth every morning. Take an additional tablet on Sunday, Sunday and Sunday afternoon only.) 150 Tablet 3 Tamsulosin HCl 0.4 MG Oral Capsule (Flomax) TAKE 1 CAPSULE BY MOUTH ONCE DAILY IN THE MORNING 30 Capsule 11 Eliquis 5 MG Oral Tablet (Apixaban) TAKE [...] BY MOUTH ONCE DAILY 90 Tablet 3 Repatha SureClick 140 MG/ML Subcutaneous Solution Auto-injector [...] as needed for Cough. 30 Capsule 3 Desvenlafaxine Succinate ER 100 MG Oral Tablet Extended Release 24 Hour (Pristiq) Take 1 Tablet by mouth in the morning. 30 Tablet 11 ARIPiprazole 2 MG Oral Tablet (Abilify) Take 1 Tablet by mouth in the morning. 30 Tablet 1 Gabapentin 300 MG Oral Capsule (Neurontin) Take 1 Capsule by mouth every evening. 30 Capsule 1 Fluticasone-Salmeterol 250-50 MCG/ACT Inhalation Aerosol Powder Breath Activated (Wixela Inhub) Inhale 1 Puff by mouth in the morning and 1 Puff before bedtime. 60 Each 12 predniSONE 20 MG Oral Tablet (Deltasone) Take 2 Tablets by mouth in the morning for 5 days. 10 Tablet 0 oxyCODONE HCl 5 MG Oral Tablet (Oxy IR) Take 1 Tablet by mouth every 4 hours as needed for Pain, Breakthrough or Pain, Severe for up to 3 days. 15 Tablet 0 Baclofen 20 MG Oral Tablet Take 1 Tablet by mouth 3 times a day as needed for Muscle spasms. 90 Tablet 5 Naloxone HCl 4 MG/0.1ML Nasal Liquid (Narcan Nasal) Administer 1 spray into 1 nostril for suspectedopioid overdose. Seek immediate medical attention. [email or web address] (Patient not taking: Reported on 09/18/2023) 1 Each 3 No current facility-administered medications for this visit. OBJECTIVE/PHYSICAL EXAMINATION: BP 126/68 | Pulse 84 | Resp 17 | Wt 122.2 kg (269 lb 4.8 oz) | BMI 38.64 kg/m | BSA 2.46 m Blood pressure my repeat 110/64 Wt Readings from Last 3 Encounters: 09/18/23 122.2 kg (269 lb 4.8 oz) 09/06/23 120.2 kg (265 lb) 08/27/23 122 kg (269 lb) In clinic weight, 09/25/2022 273 pounds General: no acute distress and stated age Eyes: conjunctiva are pink and non-injected, sclera clear Neck: normal jugular venous pulse, no hepatojugular reflux Chest: normal shape and normal respiratory effort Lungs: Mild apical wheezing, no rales rhonchi, cough noted Cardiac Exam: - regular heart sounds, no murmurs, rubs, or gallops Musculoskeletal: no gait disturbance, no weakness Extremities: no edema and no cyanosis -pedal pulses well as posterior tibial pulses detected by Doppler today in the left foot, 09/12/2021 Neuro: grossly normal exam Psych: appropriate affect and insight. Data: Repeat device interrogation performed at time of visit today with the assistance of Dr. Avila of EP. Patient had noted to have an audible alert recently daily 9:00 a.m. this was found to be relatedto a manual download that had been unsuccessful. The other was reset. Generator longevity found to be stable today at 4 years. Underlying atrial fibrillation which has been present for 45 days. Effective VEHICLE WASHER pacing felt to be around 86% based on his data. EKG performed 07/17/2023 and interpreted independently: Underlying atrial fibrillation with ventricular paced QRS complexes at 90 beats per minute. Summary of ttecho performed 02/07/2023: The ultrasound enhancement agent Definity was administered to improve delineation of the endocardial border with adequate technical results. The left ventricular cavity size is normal. The LV wall thickness is mildly increased (concentric). The septal motion is abnormal consistent with right ventricular pacemaker. There is hypokinesis of the infero posterior wall and infero septum with all other wall segments mildly hypokinetic The qualitative LV ejection fraction is 45-49% (mildly reduced). The left atrium is moderately enlarged. ASSESSMENT / PLAN: 73 year old male ICD-10-CM 1. Acute on chronic systolic (congestive) heart failure (HCC) with underlying ischemic cardiomyopathy I50.23 2. Persistent atrial fibrillation (HCC) I48.19 3. LBBB (left bundle branch block) I44.7 4. Hyperlipemia, mixed E78.2 PLAN: I am not certain how much of his symptoms can be attributed to development of persistent atrial fibrillation with loss of atrioventricular resynchronization. He is severe underlying COPD and has had multiple courses of prednisone recently. The most recent of which was started 3 days ago for a tenosynovitis of his right thumb. He has not wheezing today. He was not clinically volume overloaded and his weight is relatively unchanged compared to when I had seen him at the time of the July visithaving weighed 267 pounds at that time and weighing 269 pounds today. The thoracic impedance measurements on his AICD did not suggest recent volume overload. I question if occult progression of his CAD may be playing a role with potential for a reversible cause of his symptoms. Will plan proceeding with repeat coronary angiography and intervention if culprit found. I do not think a rhythm control strategy will be effective from atrial fibrillation standpoint. He has not a candidate for amiodarone given his underlying lung disease. Future considerations include proceeding with an AV junction ablation, but his ventricular rates are not running very high right no w. One advantages that would allow us to lighten up on his beta-norm therapy as he was currentlyon metoprolol succinate 150 milligrams daily and this may be contributing to his fatigue. As noted his ejection fraction had been stable in February, but he was feeling well then. Will plan on a repeat echocardiogram in advance of cardiac catheterization for reassessment of his ejection fraction. It was noted that he had taken any of his cardiac medications prior to his 11:30 a.m. appointment today in his blood pressure was 126/68. At this time I favor ongoing treatment with clopidogrel, Eliquis, metoprolol succinate 100 milligrams in the morning, 50 milligrams in the evening, digoxin 0.125milligrams daily, losartan 25 milligrams daily, spironolactone 25 milligrams daily, torsemide 100 milligrams daily in the morning with an extra 100 milligram dose on Mondays, Wednesdays and Fridays in the afternoon. With regards to his history of dyslipidemia, his most recent LDL cholesterol was down to 92 milligrams/deciliter having been 21 milligrams/deciliter in 2021. Patient has not been tolerant of statin therapy, he was currently on Repatha monotherapy and is tolerating it well. I do not think he has much in the way of blood pressure to add an SGLT2 inhibitor or to transition to Entresto. The patient has significant concerns with regards to how many medications he was on, atthis point I think it is prudent to not make any additions. Echocardiogram tentatively scheduled for 09/20/2023 with cardiac catheterization on 10/08/2023. Preprocedure lab work and chest x-ray obtained today, results are pending at present. Patient with acute symptoms of progressive fatigue, cardiac issues as outlined above likely a cause, and he was followed on a chronic basis for atrial fibrillation which was previously paroxysmal andnow felt to be persistent and likely permanent, chronic conditions of congestive heart failure, chronic coronary heart disease and dyslipidemia. I spent a total of Greater than 55 mins (exact time 65 mins) on the date of service in preparation,delivery, and documentation of the care provided to Dago Gunter excluding any time spent in the performance of separately billed services. Donavan Nunez DO Department of Cardiology documented in this encounter Procedure Notes * Clair Mayorga DO - 10/08/2023 8:43 AM EST [facility] [place] [address] [address] CARDIAC COMMUNICATION LECTURER BRIEF PROCEDURE NOTE Name: Dago Gunter Date: 10/08/2023 Time: 8:44 AM Location: CARDIAC LABS [facility] [place] Date of Procedure: 10/08/2023 Pre-op Diagnosis: fatigue Post-op Diagnosis: No or minimal coronary artery disease Procedure: Coronary angiography Industrial Gas Servicer: Dr. Wilkes Parking Lot Supervisor(s): Dr. Mayorga Anesthesia: Monitored local anesthesia with sedation Additional Findings: Coronary disease - hemodynamically insignificant Known DIGITAL ARCHIVIST of RCA with L-R collaterals (no pictures were taken of [place] RCA ostium given this history) Prior stents patent Mild luminal irregularities Right radial access s//p radial band Complications: none Condition of patient: Good Post Sedation Evaluation: Cardiovascular status: acceptable, BP returned to baseline, and hemodynamically stable Level of consciousness: confused Airway patency: patent Distress - NAD Hydration status - well hydrated Nausea/vomiting - not present Recommendations: Medical management of nonobstructive CAD. Patient clearly has significant BRIAN and needs definitive management. documented in this encounter Miscellaneous Notes * Ancillary Progress Note - Moisés Velázquez RCIS - 10/08/2023 8:56 AM EST [facility] [place] [address] Ancillary Progress Note Patient Name: Dago Gunter Date: 10/08/2023 Patient will be escorted to Cardiac Recovery Suite. We performed a diagnostic cardiac catheterization procedure on this patient. The right radial artery was used for access with a 6 [place] sheath. A Radial Band was applied at 9 mL. of air to close the site. There is no hematoma and no ooze from thecath site noted. No sterile dressing applied to site. Radial band applied. Distal pulses were palpated and instructions to patient were given. There were no complications during the case. Please see the MAR for the medications that were given. See Cath Procedure Log for patient vitals during the case. * Communication - Clair Mayorga DO - 10/08/2023 7:57 AM EST INFORMED CONSENT FOR CARDIAC CATH AND INTERVENTIONAL PROCEDURES: Dr. Wilkes discussed with patient the alternatives to cardiac cath including medical therapy and if appropriate exercise testing. Dr. Wilkes discussed the risks of cath including 10/999 , CO, CVA and 2/100 risk of allergic reaction, bleeding, infection, arrhythmia requiring shock, damage to artery requiring surgery or amputation, radiation skin schwarz. Dr. Wilkes discussed technique of catheterization. The patient indicated understanding and a preference for proceeding with catheterization considering these factors. Dr. Wlikes discussed with the patient coronary intervention and alternatives i ncluding bypass surgery and medical therapy. Dr. Wilkes discussed the risks of intervention including 5-10% risk of CO, 5% risk of bleeding possibly requiring transfusion, 1% risk of , 1% risk ofemergency CABG, and 20- 30% risk of restenosis, and the chance that even a successful procedure will not relieve symptoms if they are not due to cardiac ischemia. The patient would like to have ad hoc intervention done at the time of the catheterization if it seems appropriate. * Progress Notes - Non-Billable - Clair Mayorga, DO - 10/08/2023 7:13 AM EST PROGRESS NOTE - Interventional Cardiology [facility] [place]-[address] [address] Name: Dago Gunter Date: 10/08/2023 Time: 7:13 AM Name: Dago Gunter Referring Provider: Dr. Nunez [facility] [place]: [phone] Referring Roller Repairer: same as above Procedure Requested: Left heart cath, Coronary angiography Indication for Cath: CAD Medical History Medication List (-) DM Prior to Admission medications Medication Sig Last Dose Discont. metOLazone 2.5 MG Oral Tablet (Zaroxolyn) One tablet one day per week 30 minutes prior to torsemidewith extra doses as directed predniSONE 20 MG Oral Tablet (Deltasone) Take 2 Tablets by mouth in the morning for 5 days. Desvenlafaxine Succinate ER 100 MG Oral Tablet Extended Release 24 Hour (Pristiq) Take 1 Tablet by mouth in the morning. Tamsulosin HCl 0.4 MG Oral Capsule (Flomax) TAKE 1 CAPSULE BY MOUTH ONCE DAILY IN THE MORNING Naloxone HCl 4 MG/0.1ML Nasal Liquid (Narcan Nasal) Administer 1 spray into 1 nostril for suspectedopioid overdose. Seek immediate medical attention. [email or web address] Patient not taking: Reported on 09/18/2023 oxyCODONE HCl 5 MG Oral Tablet (Oxy IR) Take 1 Tablet by mouth every 4 hours as needed for Pain, Breakthrough or Pain, Severe for up to 3 days. predniSONE 20 MG Oral Tablet (Deltasone) Take 2 Tablets by mouth in the morning for 5 days. ARIPiprazole 2 MG Oral Tablet (Abilify) Take 1 Tablet by mouth in the morning. Fluticasone-Salmeterol 250-50 MCG/ACT Inhalation Aerosol Powder Breath Activated (Wixela Inhub) Inhale 1 Puff by mouth in the morning and 1 Puff before bedtime. Gabapentin 300 MG Oral Capsule (Neurontin) Take 1 Capsule by mouth every evening. Benzonatate 100 MG Oral Capsule Take 1 Capsule by mouth 3 times a day as needed for Cough. Digoxin 125 MCG Oral Tablet (Lanoxin) Take 1 Tablet by mouth in the morning. Metoprolol Succinate ER 50 MG Oral Tablet Extended Release 24 Hour (Toprol XL) One tablet by mouth daily at bedtime, this is in addition to the previous prescription for 100 milligrams daily in the morning. HYDROcodone-Acetaminophen 7.5-325 MG Oral Tablet Take 1 Tablet by mouth every 6 hours as needed forPain, Severe. Repatha SureClick 140 MG/ML Subcutaneous Solution Auto-injector (evolocumab) Inject 140 mg (1 pen) under the skin every 14 days. Baclofen 20 MG Oral Tablet Take 1 Tablet by mouth 3 times a day as needed for Muscle spasms. Losartan Potassium 25 MG Oral Tablet (Cozaar) TAKE ONE TABLET BY MOUTH ONCE DAILY Spironolactone 25 MG Oral Tablet (Aldactone) TAKE ONE TABLET BY MOUTH ONCE DAILY Famotidine 20 MG Oral Tablet (Pepcid) TAKE 1 TABLET BY MOUTH TWICE DAILY (MORNING AND AT BEDTIME) Albuterol Sulfate (2.5 MG/3ML) 0.083% Inhalation Nebulization Solution (Proventil) Inhale 1 Vial via nebulizer every 4 hours as needed for Wheezing. Clopidogrel Bisulfate 75 MG Oral Tablet (pLAVix) TAKE ONE TABLET BY MOUTH ONCE DAILY Metoprolol Succinate ER 100 MG Oral Tablet Extended Release 24 Hour (toPROL XL) TAKE ONE TABLET BY MOUTH ONCE DAILY Potassium Chloride ER 10 MEQ Oral Tablet Extended Release TAKE 2 TABLETS BY MOUTH ONCE DAILY IN THEMORNING AND ONE TAB IN THE EVENING Vitamin C 1000 MG Oral Tablet Take 1 Tablet by mouth in the morning. Eliquis 5 MG Oral Tablet (Apixaban) TAKE 1 TABLET BY MOUTH TWICE DAILY Torsemide 100 MG Oral Tablet (Demadex) Take 1 tablet by mouth every morning. Take 1 tab on Sunday, Sunday and Sunday afternoon. Patient taking differently: Take 1 tablet by mouth every morning. Take an additional tablet on Sunday, Sunday and Sunday afternoon only. (+) HTN (+) Prior CHF in last 2 weeks, NYHA Class: 2 (+) PVD (-) Dialysis (-) Smoked in the past year (+) HLD (-) Family heart disease (male<55, female<65) (+) Prior CO (+) Prior PCI, if yes, when: SAMANTHA to OM 2019 (-) Valve Surgery (-) CABG (-) Stroke/TIA (+) COPD/Emphysema (-) ASA in the last 24 hours (+) Dual Anti-platelet Therapy, if yes, what med: plavix (-) History of HIT (-) Allergic to Dye Review of patient's allergies indicates: Allergen Reactions Sacubitril Other Reaction(s): THROAT SWELLING Valsartan Other Reaction(s): THROAT SWELLING Atorvastatin Muscle pain and Unknown Medication intolerance, not an allergy Entresto [Sacubitril-Valsartan] Other (Please comment) Throat swelled Simvastatin Other reaction(s): MUSCLE ACHES [facility] Frailty Score: 3 Very Fit - 1 Well - 2 Managing Well - 3 Vulnerable - 4 Mildly Frail - 5 Moderately Frail - 6 Severely Frail - 7 Very Severely Frail - 8 Terminally Ill - 9 Current Presentation Admission Date: 10/08/2023 | Admission Time: 0700 CAD Presentation: (None, Unlikely to be ischemic, Stable, Unstable): stable Anginal Class: 2 Anti-Anginals in the last 2 weeks: + Beta Blockers | - Calcium Channel | - Long Acting Nitrates LV Dysfunction/ Cardiomyopathy: Yes EF in last 6 months: 45 % Stress Test (Last 6 months): no | Type of stress test: NA Result (No test, Low Risk, Intermediate Risk, High Risk, Negative, Indeterminate): no test Labs Last Creatinine: Lab Results Component Value Date/Time CREATININE - [facility] 1.0 09/27/2023 11:54 AM CREATININE - [facility] 1.2 08/26/2020 04:19 PM CREATININE CJ - [facility] 36 06/06/2023 10:12 AM CREATININE ISTAT 1.0 12/16/2019 08:15 AM CREATININE, RANDOM URINE - [facility] 34 06/06/2023 10:12 AM Last GFR: No components found for: "E GLOM FILT RATE" Last INR: INR Date Value 09/18/2023 1.1 05/22/2020 1.07 Last Hb/Hct: HGB (g/dL) Date Value 09/18/2023 12.3 (L) 08/18/2020 14.1 HCT (%) Date Value 09/18/2023 38.1 (L) 08/18/2020 44.5 Misc. Notes 73 year old male with PMHx CAD s/p multiple PCI with known RCA DIGITAL ARCHIVIST, ischemic cardiomyopathy/HFimpEF(45%) s/p VEHICLE WASHER-D, afib on eliquis, AAA s/p FEVAR presenting with fatigue referred for LHC/cors TTE 02/07/23: The left ventricular cavity size is normal. The LV wall thickness is mildly increased (concentric). The septal motion is abnormal consistent with right ventricular pacemaker. There is hypokinesis of the infero posterior wall and infero septum with all other wall segments mildly hypokinetic The qualitative LV ejection fraction is 45-49% (mildly reduced). The left atrium is moderately enlarged. Cath 10/20/20: Coronary angiogram shows patent OM2 and Diagonal stents. The OM1 is jailed with a proximal 50-60% stenosis, unchanged since prior catheterization. Mild diffuse disease in mid LAD. The RCA is known tohave a 100% proximal DIGITAL ARCHIVIST with good collaterals and was not engaged today. We did not find a culpritlesion to explain worsening LV dysfunction. Cath 02/17/2019: There is a 80% stenosis of proximal OM2 s/p a 2.75 x 24 mm Synergy. Post dilated to 3.0 mm.There celia 90% stenosis of D1 inferior division s/p a 2.25 x 16 mm Synergy.Post intervention stenosis is 0% with UMANG III flow.The patient was given furosemide 40 mg IV in chemistry lab instructor.There is a 100% chronic total occlusion of proximal RCA with good left to right collaterals.The left ventricular end diastolic pressure was 25 mmHg (high). Cath 04/23/12: Hemodynamics Right Heart: The right heart catheterization shows normal heart pressures. - Hemodynamics Outputs/Resistances: The output/resistance had normal cardiac output. PVR and SVR are also within high normal limit. - Left Ventricle: Left ventricular systolic function is normal: 50% to 70%. Left ventricular segmental wall motion isabnormal (as described). - Coronary Arteries: Chronic total occlusion in proximal RCA and 80% lesion in proximal portionof 1st OM. No dye allergy +Eliquis Normal renal function (Cr 1.0) documented in this encounter Plan of Treatment Upcoming Encounters Date Type Department Care Team (Latest Contact Info) Description 10/12/2023 2:50 PM EST Office Visit [facility] [address] [place] [phone] Buster Jessica MD [address] [place] [address] 10/16/2023 11:30 AM EDT Office Visit Podiatry [facility] [address] [facility] [address] [place] [address] Willard Mejia, DPM [address] [place] [address] 10/26/2023 1:30 PM EDT Office Visit [facility] [address] [place] [phone] Buster Jessica MD [address] [place] [address] 10/29/2023 2:30 PM EDT Imaging Radiology [facility] 1st [facility] [address] [place] [address] 10/29/2023 3:00 PM EDT Office Visit Pulmonary Medicine, [facility] [address] [place] [address] Ej Noble MD [address] [place] [facility] [place] [address] 11/21/2023 10:55 AM EDT Hospital Encounter [facility] Operating [facility] [address] [place] [phone] Freeman Beaulieu DO [address] [place] [phone] 11/21/2023 10:55 AM EDT - 11/21/2023 11:20 AM EDT Surgery [facility], Operating [facility] [address] [place] [address] Freeman Beaulieu, DO [address] [place] [address] INJECTION SACROILIAC JOINT 04/22/2024 9:30 AM EDT Cardiac Studies Cardiology, [facility] [address] [place] [address] [place], Pacer Clinic [facility] [address] [place] [address] 05/19/2024 9:30 AM EDT Appointment Radiology, [address] [address] Scheduled Orders Name Type Priority Associated Diagnoses Orde r Schedule EKG EKG Routine SOB (shortness of breath) One Time for 1 Occurrences starting 10/08/2023 until 10/08/2023 Scheduled Procedures Name Priority Associated Diagnoses Date/Ti me CORONARY ANGIOGRAPHY W/LEFT HEART CATH Acute systolic heart failure (HCC) 10/08/2023 8:14 AM EST INJECTION SACROILIAC JOINT Inflammation of sacroiliac joint [...] 09/10/2008 LUNG CANCER SCREENING - USE SMARTSET [id number] Completed 08/22/2022, 05/22/2022, 02/21/2021, Additional history exists [...] this encounter Medical Devices Implanted Type Area Special Programs Director Device Identifier Shelf Expiration Date Model / Serial / Lot 32mm X 109mm, Zenith Fenestrated Aaa Endovascular Proximal Body Graft, Two Proximal Internal Stent Implanted:Qty: 1 on 04/15/2018 by Evens Hoyt MD at OR [facility] [place] N/A: Aorta [facility] 03/20/2021 ZFEN-P-2- [id number] / / [id number] Stent Graft [id number] - [id number] - [id number] Implanted:Qty: 1 on 04/15/2018 by Evens Hoyt MD at OR [facility] [place] Right: Renal Artery GETINGE : MAQUET 11/30/2020 23475 / [id number] / [id number] Stent Graft [id number] - [id number] - [id number] Implanted:Qty: 1 on 04/15/2018 by Evens Hoyt MD at OR [facility] [place] Right: Renal Artery GETINGE : MAQUET 11/30/2020 47057 / [id number] / [id number] 28mm X 76mm Distal, 12mm Ipsilateral Leg, Zenith Fenestrated Aaa Endovascular Distal Bifurcated Body Graft Implanted:Qty: 1 on 04/15/2018 by Evens Hoyt MD at OR [facility] [place] N/A: Aorta [employer] 03/20/2021 LISA-D-12 -28-76-C / / [id number] Graft Iliac Leg Spirlz 98m16gm - [id number] Implanted:Qty: 1 on 04/15/2018 by Evens Hoyt MD at OR [facility] [place] Left: Iliac [employer] 09/14/2020 [id number] / / [id number] Graft Iliac Leg Spirlz 12q69oo - [id number] Implanted:Qty: 1 on 04/15/2018 by Evens Hoyt MD at OR [facility] [place] Right: Iliac [employer] 11/09/2020 [id number] / / [id number] Transfixation Pin 6mm 294.950 - [id number] Implanted:Qty: 1 on 11/14/2019 by Mayank Friedman MD at OR [facility] Right: Ankle SYNTHES 294.950 / / Description:transfixation pi n Screw Schanz [id number] - [id number] Implanted:Qty: 2 on 11/14/2019 by Mayank Friedman MD at OR [facility] Right: Leg Lower SYNTHES 294.786SH A / / Description:self drilling sh antz screws 5.0mm x 200mm Esthela Trauma 2.7 Lock Screw 16mm Implanted:Qty: 2 on 11/27/2019 by Donavan Ramirez Jr., MD at OR [facility] [place] Right: Ankle ESTHELA : TRAUMA [id number] / / Description:hardware set Esthela Trauma 2.7 Lock Screw 14mm Implanted:Qty: 1 on 11/27/2019 by Donavan Ramirez Jr., MD at OR [facility] [place] Right: Ankle ESTHELA : TRAUMA [id number] / / [place] Trauma 3.5 Screw 14mm Implanted:Qty: 1 on 11/27/2019 by Donavan Ramirez Jr., MD at OR [facility] [place] Right: Ankle ESTHELA : TRAUMA [id number] / / Description:hardware set Esthela Trauma 3.5 Screw 18mm Implanted:Qty: 1 on 11/27/2019 by Donavan Ramirez Jr., MD at [facility] Right: Ankle ESTHELA : TRAUMA [id number] / / Description:hardware set Esthela 3.5 Lockscrew 16mm Implanted:Qty: 1 on 11/27/2019 by Donavan Ramirez Jr., MD at OR [facility] [place] Right: Ankle [id number] / / Esthela 2.0 Plate Implanted:Qty: 1 on 11/27/2019 by Donavan Ramirez Jr., MD at [facility] Right: Ankle [id number] / / Esthela 2.0 Lock Screw Implanted:Qty: 2 on 11/27/2019 by Donavan Ramirez Jr., MD at [facility] Right: Ankle [id number] / / Esthela 2.0 Lock Screw Implanted:Qty: 1 on 11/27/2019 by Donavan Ramirez Jr., MD at [facility] Right: Ankle [id number] / / [place] 2.0 Lock Screw Implanted:Qty: 1 on 11/27/2019 by Donavan Ramirez Jr., MD at OR [facility] [place] Right: Ankle [id number] / / Plate Fib 5h - [id number] Implanted:Qty: 1 on 11/27/2019 by Donavan Ramirez Jr., MD at OR [facility] [place] Right: Ankle ESTHELA : TRAUMA / / Description:hardware set documented as of this encounter Procedures Procedure Name Priority Date/Time Associated Diagnosis Comments RENAL FUNCTION PANEL STAT 10/08/2023 7:39 AM EST CBC STAT 10/08/2023 7:39 AM EST documented in this encounter Results * (ABNORMAL) RENAL FUNCTION PANEL (10/08/2023 7:39 AM EST) BUN 44(H) 6 - 20 mg/dL 10/08/2023 8:14 AM EST LABORATORY [facility] [place] Creatinine 1.3(H) 0.6 - 1.2 mg/dL 10/08/2023 8:14 AM EST LABORATORY [facility] [place] Estimated Glomerular Filtration Rate 59(L) >=60 mL/min 10/08/2023 8:14 AM EST LABORATORY [facility] [place] Comment:eGFR is calculated b ased on the CKD-EPI 2020 equation Sodium 137 135 - 146 mmol/L 10/08/2023 8:14 AM EST LABORATORY [facility] [place] Potassium 3.9 3.5 - 5.1 mmol/L 10/08/2023 8:14 AM EST LAB[facility]ATORY [facility] Chloride 98 98 - 107 mmol/L 10/08/2023 8:14 AM EST [facility] CO2 28 22 - 32 mmol/L 10/08/2023 8:14 AM EST [facility] Anion Gap 11 7 - 15 mmol/L 10/08/2023 8:14 AM EST [facility] Glucose 147(H) 70 - 120 mg/dL 10/08/2023 8:14 AM EST [facility] Calcium 8.9 8.4 - 10.2 mg/dL 10/08/2023 8:14 AM EST [facility] Albumin 4.1 3.8 - 5.0 g/dL 10/08/2023 8:14 AM EST [facility] Phosphorus 2.7 2.5 - 4.8 mg/dL 10/08/2023 8:14 AM EST [facility] Blood Venous blood specimen / Unknown Venipuncture / Unknown 10/08/2023 7:39 AM EST 10/08/2023 7:47 AM EST Latosha Celeste PA-C LAB BLOOD ORDERABL ES LABORATORY [facility] [address] [place] [address] * (ABNORMAL) CBC (10/08/2023 7:39 AM EST) WBC 11.59(H) 4.00 - 10.80 K/uL 10/08/2023 7:57 AM EST [facility] RBC 4.08 4.50 - 5.25 M/uL 10/08/2023 7:57 AM EST [facility] HGB 12.0(L) 14.0 - 16.8 g/dL 10/08/2023 7:57 AM EST [facility] HCT 37.6(L) 40.0 - 48.4 % 10/08/2023 7:57 AM EST [facility] MCV 92.2 82.0 - 99.5 fL 10/08/2023 7:57 AM EST [facility] MCH 29.4 27.0 - 34.0 pg 10/08/2023 7:57 AM EST [facility] MCHC 31.9 32.0 - 36.0 g/dL 10/08/2023 7:57 AM EST LAB[facility] RDW 15.9 11.5 - 15.5 % 10/08/2023 7:57 AM EST LAB[facility]ATORY [facility] PLT 228 140 - 400 K/uL 10/08/2023 7:57 AM EST [facility] MPV 11.4 6.6 - 11.1 fL 10/08/2023 7:57 AM EST [facility] nRBCs 0 <=0 /100 WBCs 10/08/2023 7:57 AM EST LABORATORY GM Blood Venous blood specimen / Unknown Venipuncture / Unknown 10/08/2023 7:39 AM EST 10/08/2023 7:47 AM EST Latosha Celeste PA-C LAB BLOOD ORDERABL ES LABORATORY [facility] [address] [place] [address] documented in this encounter Visit Diagnoses Diagnosis SOB (shortness of breath) Shortness of breath Inflammation of sacroiliac joint (HCC) Sacroiliitis, not elsewhere classified documented in this encounter Administered Medications Inactive Administered Medications - up to 3 most recent administrations Medication Order MAR Action Action Date Dose Rate Site Acetaminophen (Tylenol) tab 650 mg 650 mg, Oral, Q6H PRN Pain, Mild, Other, non cardiac pain, Starting on Sun10/08/23 at 0846, Until Sun10/08/23 at 1517, Maximum of 4 grams (4000 mg) per day., Post-op fentaNYL (PF) inj 25 mcg 25 mcg, IV Push, PRN Pain, Severe, Starting on Sun10/08/23 at 0817, Until Sun10/08/23 at 1016, For 2 hours, To be administered in Cardiac Padder intra-procedure only When given IV Push its recommended that the dose be given over 3 to 5 minutes., Intra-Op Given 10/08/2023 8:23 AM EST 25 mcg hEParin inj 5,000 Units 5,000 Units, Intra-Arterial, PRN Other, Inadequate anticoagulation, Starting on Sun10/08/23 at 0818, Until Sun10/08/23 at 0831, For 1 dose, To be administered in Cardiac Padder intra-procedure only , Intra-Op Given By 10/08/2023 8:31 AM EST 5,000 Units Ioversol (Optiray 350) 74 % inj 55 mL 55 mL, Intracoronary, ONCE, On Sun10/08/23 at 0930, For 1 dose, Intra-Op Given 10/08/2023 8:45 AM EST 55 mL midazolam (Versed) 2 MG/2ML inj 1 mg 1 mg, IV Push, PRN Anxiety, Starting on Sun10/08/23 at 0817, Until Sun10/08/23 at 1016, For 2 hours, To be administered in Cardiac Padder intra-procedure only, Intra-Op Given 10/08/2023 8:23 AM EST 1 mg NSS infusion Intravenous, at 100 mL/hr, CONTINUOUS, Starting on Sun10/08/23 at 0745, Until Sun10/08/23 at 1517, Pre-Op New Bag 10/08/2023 7:46 AM EST 100 mL/hr verapamil (Isoptin) inj 2.5 mg 2.5 mg, Intra-Arterial, PRN Other, arterial spasm, Starting on Sun10/08/23 at 0818, Until Sun10/08/23 at 0917, For 1 hour, To be administered in Cardiac Padder intra-procedure only, Intra-Op Given By 10/08/2023 8:31 AM EST 2.5 mg documented in this encounter Active and Recently Administered Medications Times are shown in EST. Scheduled Medication Order 10/06/2023 10/07/2023 10/08/2023 aspirin chew tab 81 mg 81 mg, Oral, ONCE, On Sun10/08/23 at 0745, For 1 dose, Pre-Op 0745 (Not Given - Pr ovider: Hugh Pimentel RN - Reason: Parameter(s) Not Met - Comment: aspirin at home) atorvaSTATin (Lipitor) tab 80 mg 80 mg, Oral, ONCE, On Sun10/08/23 at 0745, For 1 dose, Pre-Op 0745 (Not Given - Pr ovider: Hugh Pimentel RN - Reason: Parameter(s) Not Met) Ioversol (Optiray 350) 74 % inj 55 mL (COMPLETED) 55 mL, Intracoronary, ONCE, On Sun10/08/23 at 0930, For 1 dose, Intra-Op 0845 (Given - Provid er: Kal Haque, RT) Continuous Medication Order 10/06/2023 10/07/2023 10/08/2023 NSS infusion Intravenous, at 100 mL/hr, CONTINUOUS, Starting on Sun10/08/23 at 0745, Until Sun10/08/23 at 1517, Pre-Op 0746 (New Bag - Prov ider: Hugh Pimentel RN)1517 (Due: Stopped) PRN Medication Order 10/06/2023 10/07/2023 10/08/2023 Acetaminophen (Tylenol) tab 650 mg 650 mg, Oral, Q6H PRN Pain, Mild, Other, non cardiac pain, Starting on Sun10/08/23 at 0846, Until Sun10/08/23 at 1517, Maximum of 4 grams (4000 mg) per day., Post-op fentaNYL (PF) inj 25 mcg 25 mcg, IV Push, PRN Pain, Severe, Starting on Sun10/08/23 at 0817, Until Sun10/08/23 at 1016, For 2 hours, To be administered in Cardiac Padder intra-procedure only When given IV Push its recommended that the dose be given over 3 to 5 minutes., Intra-Op 0823 (Given - Provid er: Jena Phoenix RN) hEParin inj 5,000 Units (COMPLETED) 5,000 Units, Intra-Arterial, PRN Other, Inadequate anticoagulation, Starting on Sun10/08/23 at 0818, Until Sun10/08/23 at 0831, For 1 dose, To be administered in Cardiac Padder intra-procedure only , Intra-Op 0831 (Given By - Pro vider: Jena Phoenix RN - Comment: administered by Dr Mayorga at bedside) midazolam (Versed) 2 MG/2ML inj 1 mg 1 mg, IV Push, PRN Anxiety, Starting on Sun10/08/23 at 0817, Until Sun10/08/23 at 1016, For 2 hours, To be administered in Cardiac Padder intra-procedure only, Intra-Op 08 (Given - Provid er: Jena Phoenix RN) verapamil (Isoptin) inj 2.5 mg 2.5 mg, Intra-Arterial, PRN Other, arterial spasm, Starting on Sun10/08/23 at 0818, Until Sun10/08/23 at 0917, For 1 hour, To be administered in Cardiac Padder intra-procedure only, Intra-Op 0831 (Given By - Pro vider: Jena Phoenix RN - Comment: administered by Dr Mayorga at bedside) documented in this encounter Advance Directives Latest [...] the patient have Health Care Power of Recoating Machine Operator? No Full Code 02/17/2019 12:06 PM 02/18/2019 1:09 PM This order reflects the patients wishes and were consensually agreed upon. Question Answer Comments Discussion of Advance Directives occurred with: Not Discussed Does the patient have a Living Will? No Does the patient have Health Care Power of Recoating Machine Operator? No Full Code 04/15/2018 12:43 PM 04/16/2018 2:43 PM This order reflects the patients wishes and were consensually agreed upon. Care Teams Belly Dancer Relationship Specialty Start Date End Date Buster Jessica MD [address] [place] [address] PCP - General Family Medicine 09/11/22 documented as of this encounter
--- OUTSIDE RECORDS SUMMARY | 2023-12-11 18:56 | External Medical Summary | Summary of Care ---
Author Name Unknown Organization [facility] Address [address] [place] [address] Phone [phone] Care Team Providers Care Service Coordinator Name Role Phone Buster Jessica MD Primary Care P [facility] Reason for Visit * Reason Onset Date Comments Follow Up 07/18/2023 Encounter Details Date Type Department Care Team (Late st Contact Info) Description 07/18/2023 Telephone Cardiology, [facility] [address] [facility] [place] [address] Donavan Barker, [address] [facility] [place] [address] Follow Up Allergies Active Allergy Reactions Criticality Noted Date [...] (Demadex)Indicatio ns:Heart failure, systolic, due to CAD ([facility] [...] MOUTH TWICE DAILY 60 Tablet 11 3 Active Vitamin C 1000 MG Oral Tablet Take 1 Tablet by mouth in the morning. 0 Active Potassium Chloride ER 10 MEQ Oral Tablet Extended ReleaseIndications :HTN, goal below 140/90,Paroxysmal atrial fibrillation ([facility] [...] Oral Tablet (pLAVix)Indication s:PAD (peripheral artery disease) ([facility]),Coronary artery disease involving craig coronary artery of craig heart without angina pectoris TAKE ONE TABLET BY MOUTH ONCE DAILY 90 Tablet 3 3 Active Albuterol Sulfate (2.5 MG/3ML) 0.083% Inhalation Nebulization Solution (Proventil)Indicat ions:COPD, group D, by GOLD 2017 classification ([facility]) Inhale 1 Vial via nebulizer every 4 hours as needed for Wheezing. 75 mL 1 3 Active Famotidine 20 MG Oral Tablet (Pepcid) TAKE 1 TABLET BY MOUTH TWICE DAILY (MORNING AND AT BEDTIME) 180 Tablet 3 3 Active Spironolactone 25 MG Oral Tablet (Aldactone)Indicat ions:Coronary artery disease involving craig coronary artery of craig heart without angina pectoris,Heart failure, systolic, due to CAD ([facility]),Chronic ischemic heart disease,HTN, goal below 140/90 TAKE ONE TABLET BY MOUTH ONCE DAILY 90 Tablet 3 3 Active Losartan Potassium 25 MG Oral Tablet (Cozaar)Indication s:PAD (peripheral artery disease) ([facility]),Coronary artery disease involving craig coronary artery of craig heart without angina pectoris TAKE ONE TABLET [...] failure, systolic, due to CAD ([facility]),Dyslipidemia , goal LDL below 70,Chronic ischemic heart disease,Tobacco use disorder,Coronary artery disease involving craig coronary artery of craig heart without angina pectoris Inject 140 mg (1 pen) under the skin every 14 days. 6 mL 3 3 Active Tamsulosin HCl 0.4 MG Oral Capsule (Flomax) TAKE 1 CAPSULE BY MOUTH ONCE DAILY IN THE MORNING 30 Capsule 11 3 024 Discontinued Desvenlafaxine Succinate ER 50 MG Oral Tablet Extended Release 24 Hour (Pristiq)Indicatio ns:Chronic bilateral low back pain without sciatica,Moderate episode of recurrent major depressive disorder ([facility]) TAKE 1 TABLET BY MOUTH ONCE DAILY IN THE MORNING 30 Tablet 5 3 024 Discontinued(Me dication/Dose Changed) Fluticasone-Salmet sixto 250-50 MCG/ACT Inhalation Aerosol Powder Breath Activated (Wixela Inhub)Indications: COPD, group D, by GOLD 2017 classification ([facility]) Inhale 1 Puff by mouth in the morning and 1 Puff before bedtime. 60 Each 12 3 024 Discontinued(Re fill) HYDROcodone-Acetam inophen 7.5-325 MG Oral TabletIndications: Chronic bilateral low back pain without sciatica Take 1-2 Tablets by mouth every 6 hours as needed for Pain, Severe. 60 Tablet 0 3 024 Discontinued(Re fill) predniSONE 10 MG Oral Tablet (Deltasone)Indicat ions:Acute gout of right knee, unspecified cause Take 5 tabs for 2 days, 4 tabs for 2 days, 3 tabs for 2 days, 2 tabs for 2 days 1 tab for 2 days 30 Tablet 0 3 024 Discontinued(Re fill) Amoxicillin-Pot Clavulanate 875-125 MG Oral Tablet (Augmentin)Indicat ions:Sinobronchiti s Take 1 Tablet by mouth in the morning and 1 Tablet before bedtime. Do all this for 10 days. 20 Tablet 0 3 024 Discontinued documented as of this encounter (statuses [...] fibrillation 09/22/2021 Atherosclerotic heart diseas e of craig coronary artery with other forms of angina pectoris 09/22/2021 Tobacco dependence 03/07/2021 Adjustment disorder with anxious mood 03/07/2021 Biventricular ICD (implantab le cardioverter-defibrillator) in place 12/23/2020 LBBB (left bundle branch block) 11/22/2020 Chronic systolic HF (heart failure) 11/22/2020 Controlled substance agreement signed 09/02/2020 Coronary artery disease invo lving craig coronary artery of craig heart without angina pectoris 07/06/2020 Chronic systolic [...] untreated, BMI 43.71 kg/m, NECK: 21 inches, [place] 6/24, sent for bipap titration study [...] Overview: Per Prediabetes protocol Depression with anxiety 01/10/2018 02/2 08/2021 Morbid (severe) obesity due to excess calories 05/17/2017 03/14/2023 Sacroiliitis, not elsewhere classified 05/17/2017 01/10/2018 Essential hypertension with goal blood pressure less than 140/90 01/05/2016 05/17/2017 COPD, severity to be determined 08/18/2015 01/15/2019 Overview: Per COPD GOLD Classification Encounter for surveillance of abnormal nevi 04/06/2015 05/17/2017 Osteoarthritis of knee 09/23/201305/17 [employer] Other*[id number] 04/23/2012 09/12/2016 Overview: Study Title: Genomic Markers for Patients with Cardiovascular Disease Project # [id number] Reheater Helper: Comfort Aviles MD [phone] Impotence of organic origin 02/16/2011 01/10/2018 Shortness [...] Miscellaneous Notes * Telephone Encounter - Donavan Barker DO - 07/18/2023 11:43 AM EST Labs reviewed. BNP elevated, but similar to 11/2020 measurement. WALDEMAR noted with Creat 1.4 up from 1 mg/dl on 06/06/23. Stable mild anemia, Hgb 13.3. CXR reviewed , radiology report pending. Mild CHF. Plan: Continue same meds. Proceed with plans for cardioversion. Donavan Barker DO documented in this encounter Plan of Treatment Upcoming Encounters Date Type Department Care Team (Late st Contact Info) Description 10/11/2023 3:00 PM EST [facility]icine [facility] [place] [address] [place] [address] Grisel Richter CRNP [address] [place] [address] Clary Eastman, [facility] Drum Tanner [address] [place] [address] 10/12/2023 2:50 PM EST Office Visit [facility] [address] [place] [phone] Buster Jessica MD [address] [place] [address] 10/16/2023 11:30 AM EDT Office Visit Podiatry [facility] 68 [facility] [address] [place] [address] Willard Mejia, SLIM [address] [place] [address] 10/19/2023 12:30 PM EDT Home Visit [facility], [place] [address] [place] [address] Lisa Tenorio, RN [address] [place] [address] 10/26/2023 1:30 PM EDT Office Visit [facility] [address] [place] [phone] Buster Jessica MD [address] [place] [address] 10/29/2023 2:30 PM EDT Imaging Radiology [facility] 132 [facility] [place] [address] 10/29/2023 3:00 PM EDT Office Visit Pulmonary Medicine, [facility] [address] [facility] [place] [address] Ej Noble MD [address] [facility] [place] [address] 11/21/2023 10:55 AM EDT Hospital Encounter [facility], Operating Room [facility] [address] [place] [address] Freeman Beaulieu, DO [address] [place] [address] 11/21/2023 10:55 AM EDT - 11/21/2023 11:20 AM EDT Surgery OR [facility], Operating Room [facility] [address] [place] [address] Freeman Beaulieu, DO [address] [place] [address] INJECTION SACROILIAC JOINT 04/22/2024 9:30 AM EDT Cardiac Studies Cardiology, [facility] [address] [place] [address] [place], [facility] [address] [place] [address] 05/19/2024 9:30 AM EDT Appointment Radiology, [address] [address] Scheduled Procedures Name Priority Associated [...] 09/10/2008 LUNG CANCER SCREENING - USE SMARTSET 20101 Completed 08/22/2022, 05/22/2022, 02/21/2021, Additional history exists [...] this encounter Medical Devices Implanted Type Area Structural Steel Erection Supervisor Device Identifier Shelf Expiration Date Model / Serial / Lot 32mm X 109mm, Zenith Fenestrated Aaa Endovascular Proximal Body Graft, Two Proximal Internal Stent Implanted:Qty: 1 on 04/15/2018 by Evens Hoyt MD at OR [facility] N/A: Aorta [employer] 03/20/2021 ZFEN-P-2- 32-109-R / / [id number] Stent Graft [id number] - [id number] - [id number] Implanted:Qty: 1 on 04/15/2018 by Evens Hoyt MD at OR [facility] Right: Renal Artery GETINGE : JULIANNE 11/30/2020 30530 / [id number] / [id number] Stent Graft [id number] - [id number] - [id number] Implanted:Qty: 1 on 04/15/2018 by Evens Hoyt MD at OR [facility] Right: Renal Artery GETINGE : MAQUET 11/30/2020 18808 / [id number] / [id number] 28mm X 76mm Distal, 12mm Ipsilateral Leg, Zenith Fenestrated Aaa Endovascular Distal Bifurcated Body Graft Implanted:Qty: 1 on 04/15/2018 by Evens Hoyt MD at OR [facility] N/A: Aorta [employer] 03/20/2021 ZFEN-D-12 -28-76-C / / [id number] Graft Iliac Leg Spirlz 98i98zh - [id number] Implanted:Qty: 1 on 04/15/2018 by Evens Hoyt MD at OR [facility] Left: Iliac [employer] 09/14/2020 [id number] / / [id number] Graft Iliac Leg Spirlz 55h89sg - [id number] Implanted:Qty: 1 on 04/15/2018 by Evens Hoyt MD at OR [facility] Right: Iliac [employer] 11/09/2020 [id number] / / [id number] Transfixation Pin 6mm 294.950 - [id number] Implanted:Qty: 1 on 11/14/2019 by Mayank Friedman MD at OR [facility] Right: Ankle SYNTHES 294.950 / / Description:transfixation pi n Screw Schanz 5.4wek610mp - [id number] Implanted:Qty: 2 on 11/14/2019 by Mayank Friedman MD at OR [facility] Right: Leg Lower SYNTHES 294.786SH A / / Description:self drilling sh antz screws 5.0mm x 200mm [place] Trauma 2.7 Lock Screw 16mm Implanted:Qty: 2 on 11/27/2019 by Donavan Ramirez Jr., MD at OR [facility] Right: Ankle ESTHELA : TRAUMA [id number] / / Description:hardware set Esthela Trauma 2.7 Lock Screw 14mm Implanted:Qty: 1 on 11/27/2019 by Donavan Ramirez Jr., MD at OR [facility] Right: Ankle ESTHELA : TRAUMA [id number] / / [place] Trauma 3.5 Screw 14mm Implanted:Qty: 1 on 11/27/2019 by Donavan Ramirez Jr., MD at OR [facility] Right: Ankle ESTHELA : TRAUMA [id number] / / Description:hardware set [place] Trauma 3.5 Screw 18mm Implanted:Qty: 1 on 11/27/2019 by Donavan Ramirez Jr., MD at OR [facility] Right: Ankle ESTHELA : TRAUMA [id number] / / Description:hardware set [place] 3.5 Lockscrew 16mm Implanted:Qty: 1 on 11/27/2019 by Donavan Ramirez Jr., MD at OR [facility] Right: Ankle [id number] / / [place]osh[place] 2.0 Plate Implanted:Qty: 1 on 11/27/2019 by Donavan Ramirez Jr., MD at OR [facility] Right: Ankle [id number] / / Esthela 2.0 Lock Screw Implanted:Qty: 2 on 11/27/2019 by oDnavan Ramirez Jr., MD at [facility] Right: Ankle [id number] / / [place] 2.0 Lock Screw Implanted:Qty: 1 on 11/27/2019 by Donavan Ramirez Jr., MD at OR [facility] Right: Ankle [id number] / / Esthela 2.0 Lock Screw Implanted:Qty: 1 on 11/27/2019 by Donavan Ramirez Jr., MD at OR [facility] Right: Ankle [id number] / / Plate Fib 5h - [id number] Implanted:Qty: 1 on 11/27/2019 by Donavan Ramirez [...] the patient have Health Care Power of Solderer Assembler? No Full Code 02/17/2019 12:06 PM 02/18/2019 1:09 PM This order reflects the patients wishes and were consensually agreed upon. Question Answer Comments Discussion of Advance Directives occurred with: Not Discussed Does the patient have a Living Will? No Does the patient have Health Care Power of Solderer Assembler? No Full Code 04/15/2018 12:43 PM 04/16/2018 2:43 PM This order reflects the patients wishes and were consensually agreed upon. Care Teams Service Coordinator Relationship Specialty Start Date End Date Buster Jessica MD [address] [place] [address] PCP - General Family Medicine 09/11/22 documented as of this encounter
--- OUTSIDE RECORDS SUMMARY | 2023-12-11 18:56 | External Medical Summary | Summary of Care ---
Author Name Unknown Organization [facility] Address [address] [place] [address] Phone [phone] Care Team Providers Care Housing And Residence Life Director Name Role Phone Buster Jessica MD Primary Care P [facility] Reason for Visit * Reason Onset Date Comments Appointment 10/09/2023 Encounter Details Date Type Department Care Team (Late st Contact Info) Description 10/09/2023 Telephone [facility] [place] [address] [place] [address] Services, Scheduling [address] [place] [address] Appointment (//) Allergies Active Allergy Reactions Criticality [...] ([facility]),Coronary artery disease involving [place] coronary artery of [place] heart without angina pectoris TAKE ONE TABLET [...] Oral Tablet (Aldactone)Indicatio ns:Coronary artery disease involving [place] coronary artery of [place] heart without angina pectoris,Heart failure, systolic, due to CAD ([facility]),Chronic ischemic heart disease,HTN, goal below 140/90 TAKE ONE TABLET BY MOUTH ONCE DAILY 90 Tablet 3 05/14/2023 Active Losartan Potassium 25 MG Oral Tablet (Cozaar)Indications: PAD (peripheral artery disease) ([facility]),Coronary artery disease involving [place] coronary artery of [place] heart without angina pectoris TAKE ONE TABLET [...] heart disease,Tobacco use disorder,Coronary artery disease involving [place] coronary artery of [place] heart without angina pectoris Inject 140 mg [...] suspected opioid overdose. Seek immediate medical attention. [email or web address] 1 Each 3 09/15/2023 Active Tamsulosin HCl [...] fibrillation 09/22/2021 Atherosclerotic heart diseas e of [place] coronary artery with other forms of angina pectoris 09/22/2021 Tobacco dependence 03/07/2021 Adjustment disorder with anxious mood 03/07/2021 Biventricular ICD (implantab le cardioverter-defibrillator) in place 12/23/2020 LBBB (left bundle branch block) 11/22/2020 Chronic systolic HF (heart failure) 11/22/2020 Controlled substance agreement signed 09/02/2020 Coronary artery disease invo lving [place]han[place] coronary artery of [place] heart without angina pectoris 07/06/2020 Chronic systolic [...] untreated, BMI 43.71 kg/m, NECK: 21 inches, [place] 6/24, sent for bipap titration study 01/11/11 case per [facility] completed ICD-10 update of inactive term [...] Osteoarthritis of knee 09/23/201305/17 [employer] Other*[id number] 04/23/2012 09/12/2016 Overview: Study Title: Genomic Markers for Patients with Cardiovascular Disease Project # [id number] Metalizer Field Operation: Comfort Aviles MD [phone] Impotence of organic origin 02/16/2011 01/10/2018 Shortness [...] do you have serious difficulty h earing? No-[place] 11/14/2019 Are you blind or do you [...] encounter Miscellaneous Notes * Telephone Encounter - Julien Lui OSA - 10/09/2023 12:55 PM EST [facility] Engagement Attempt Engagement: Engagement Attempt 1: Contacted - Agreed to home-based services 10/08-scheduled AP with availability for new appt Scheduled appointment information: No data was found Home Information: No data was found Advance Care Planning (ACP): No data was found Has Living Will or Advance Directive: No data was found Anticipated Sub-Program: Short-Term Management (less than 3 months) Confirmation of Sub-Program Type (by care team psychologist): No data was found Handoff Information: Current care team notified via: No data was found Current telemonitoring equipment: No data was found documented in this encounter Plan of Treatment Upcoming Encounters Date Type Department Care Team ([facility] st Contact Info) Description 10/11/2023 3:00 PM EST Telemedicine [facility] [address] [place] [address] Grisel Richter CRNP [address] [place] [address] Clary Eastman, [facility] Mail Weigher [address] [place] [address] 10/12/2023 2:50 PM EST Office Visit [address] [phone] Buster Jessica MD [address] [place] [address] 10/16/2023 11:30 AM EDT Office Visit Podiatry [address] [place] [phone] Willard Mejia, SLIM [address] [place] [address] 10/19/2023 12:30 PM EDT Home Visit [facility] [address] [place] [address] Lisa Tenorio RN [address] [place] [address] 10/26/2023 1:30 PM EDT Office Visit [address] [address] Buster Jessica [facility] [place] [address] 10/29/2023 2:30 PM EDT Imaging Radiology [address] [place] [address] 10/29/2023 3:00 PM EDT Office Visit Pulmonary Medicine, [facility] [address] [place] [address] Ej Noble MD [address] [place] [address] 11/21/2023 10:55 AM EDT Hospital Encounter [facility], Operating Room [facility] [address] [place] [phone] Freeman Beaulieu, [address] [place] [address] 11/21/2023 10:55 AM EDT - 11/21/2023 11:20 AM EDT Surgery OR [facility], Operating Room [facility] [address] [place] [phone] Freeman Beaulieu, DO [address] [place] [address] INJECTION SACROILIAC JOINT 04/22/2024 9:30 AM EDT Cardiac Studies Cardiology, [facility] [address] [place] [address] Fredy Shaw [facility] [address] [place] [address] 05/19/2024 9:30 AM EDT Appointment Radiology, [facility] [address] [place] [address] Scheduled Procedures Name Priority Associated [...] exists DISCUSS TOBACCO CESSATION (REFER TO SMARTSET #1642) 06/02/2023 06/02/2022, 07/21/2020 Depression, Most Recent Score [...] 09/10/2008 LUNG CANCER SCREENING - USE SMARTSET 69241 Completed 08/22/2022, 05/22/2022, 02/21/2021, Additional history exists [...] this encounter Medical Devices Implanted Type Area Mobile Marketing Specialist Device Identifier Shelf Expiration Date Model / Serial / Lot 32mm X 109mm, Zenith Fenestrated Aaa Endovascular Proximal Body Graft, Two Proximal Internal Stent Implanted:Qty: 1 on 04/15/2018 by Evens Hoyt MD at [place] [facility] N/A: Aorta [employer] 03/20/2021 ZFEN-P-2- 32-109-R / / [id number] Stent Graft [id number] - [id number] - [id number] Implanted:Qty: 1 on 04/15/2018 by Evens Hoyt MD at OR [facility] Right: Renal Artery GETINGE : MAQUET 11/30/2020 66192 / [id number] / [id number] Stent Graft [id number] - [id number] - [id number] Implanted:Qty: 1 on 04/15/2018 by Evens Hoyt MD at OR [facility] Right: Renal Artery GETINGE : MAQUET 11/30/2020 86277 / [id number] / [id number] 28mm X 76mm Distal, 12mm Ipsilateral Leg, Zenith Fenestrated Aaa Endovascular Distal Bifurcated Body Graft Implanted:Qty: 1 on 04/15/2018 by Evens Hoyt MD at OR [facility] N/A: Aorta [employer]OOK GROUP 03/20/2021 EZIOEN-D-12 -28-76-C / / [id number] Graft Iliac Leg Spirlz 01z19ro - [id number] Implanted:Qty: 1 on 04/15/2018 by Evens Hoyt MD at OR [facility] Left: Iliac COOK GROUP 09/14/2020 [id number] / / [id number] Graft Iliac Leg Spirlz 32w04hf - [id number] Implanted:Qty: 1 on 04/15/2018 by Evens Hoyt MD at [place] [facility] Right: Iliac [employer] 11/09/2020 [id number] / / [id number] Transfixation Pin 6mm 294.950 - [id number] Implanted:Qty: 1 on 11/14/2019 by Mayank Friedman MD at OR [facility] Right: Ankle SYNTHES 294.950 / / Description:transfixation pi n Screw Schanz 5.0dri372uw - [id number] Implanted:Qty: 2 on 11/14/2019 by Mayank Friedman MD at OR [facility] Right: Leg Lower SYNTHES 294.786SH A / / Description:self drilling sh antz screws 5.0mm x 200mm [place] Trauma 2.7 Lock Screw 16mm Implanted:Qty: 2 on 11/27/2019 by Donavan Ramirez Jr., MD at [place] [facility] Right: Ankle ESTHELA : TRAUMA [id number] / / Description:hardware set Esthela Trauma 2.7 Lock Screw 14mm Implanted:Qty: 1 on 11/27/2019 by Donavan Ramirez Jr., MD at OR [facility] Right: Ankle ESTHELA : TRAUMA [id number] / / [place] Trauma 3.5 Screw 14mm Implanted:Qty: 1 on 11/27/2019 by Donavan Ramirez Jr., MD at OR [facility] Right: Ankle ESTHELA : TRAUMA [id number] / / Description:hardware set [place] Trauma 3.5 Screw 18mm Implanted:Qty: 1 on 11/27/2019 by Donavan Ramirez Jr., MD at OR [facility] Right: Ankle ESTHELA : TRAUMA [id number] / / Description:hardware set [place] 3.5 Lockscrew 16mm Implanted:Qty: 1 on 11/27/2019 by Donavan Ramirez Jr., MD at OR [facility] Right: Ankle [id number] / / Esthela 2.0 Plate Implanted:Qty: 1 on 11/27/2019 by Donavan Ramirez Jr., MD at OR [facility] Right: Ankle [id number] / / [place] 2.0 Lock Screw Implanted:Qty: 2 on 11/27/2019 by Donavan Ramirez Jr., MD at OR [facility] Right: Ankle [id number] / / [place] 2.0 Lock Screw Implanted:Qty: 1 on 11/27/2019 by Donavan Ramirez Jr., MD at OR [facility] Right: Ankle [id number] / / Esthela 2.0 Lock Screw Implanted:Qty: 1 on 11/27/2019 by Donavan Ramirez Jr., MD at OR [facility] Right: Ankle [id number] / / Plate Fib 5h - - [id number] Implanted:Qty: 1 on 11/27/2019 by Donavan Ramirez Jr., MD at [place] [facility] Right: Ankle ESTHELA : TRAUMA / / [...] the patient have Health Care Power of Glue Spreading Machine Operator? No Full Code 02/17/2019 12:06 PM 02/18/2019 1:09 PM This order reflects the patients wishes and were consensually agreed upon. Question Answer Comments Discussion of Advance Directives occurred with: Not Discussed Does the patient have a Living Will? No Does the patient have Health Care Power of Glue Spreading Machine Operator? No Full Code 04/15/2018 12:43 PM 04/16/2018 2:43 PM This order reflects the patients wishes and were consensually agreed upon. Care Teams Housing And Residence Life Director Relationship Specialty Start Date End Date Buster Jessica MD [address] [place] [address] PCP - General Family Medicine 09/11/22 documented as of this encounter
--- OUTSIDE RECORDS SUMMARY | 2023-12-11 18:56 | External Medical Summary | Summary of Care ---
Author Name Unknown Organization [facility] Address [address] [place] [address] Phone [phone] Care Team Providers Care Concrete Craftsman Name Role Phone Buster Jessica MD Primary Care P rovider Encounter Details Date Type Department Care Team (Late st Contact Info) Description 10/05/2023 Result Scan Unspecified Department Donavan Barker, DO [address] [place] [address] <No scans attached> Allergies Active Allergy Reactions Criticality Noted Date Comments Atorvastatin Muscle pain,Unknown 01/18/2015 Medication intolerance, not an allergy Sacubitril-Valsartan Other (Please comment) 09/17/2020 Throat swelled Sacubitril High 07/20/2023 Other Reaction(s): THROAT SWELLING Simvastatin Low 06/23/2022 Other reaction(s): MUSCLE ACHES Valsartan High 07/20/2023 Other Reaction(s): THROAT SWELLING documented as of this encounter (statuses as of 10/05/2023) Medications Medication Sig Dispensed Refills Start Date [...] Oral Tablet (pLAVix)Indications: PAD (peripheral artery disease) ([facility]),Coronary artery disease involving [place] coronary artery of [place] heart without angina pectoris TAKE ONE TABLET BY MOUTH ONCE DAILY 90 Tablet 3 03/13/2023 Active Albuterol Sulfate (2.5 MG/3ML) 0.083% Inhalation Nebulization Solution (Proventil)Indicatio ns:COPD, group D, by GOLD 2017 classification ([facility]) Inhale 1 Vial via nebulizer every 4 hours as needed for Wheezing. 75 mL 1 04/23/2023 Active Famotidine 20 MG Oral Tablet (Pepcid) TAKE 1 TABLET BY MOUTH TWICE DAILY (MORNING AND AT BEDTIME) 180 Tablet 3 04/30/2023 Active Spironolactone 25 MG Oral Tablet (Aldactone)Indicatio ns:Coronary artery disease involving [place] coronary artery of [place] heart without angina pectoris,Heart failure, systolic, due to CAD ([facility]),Chronic ischemic heart disease,HTN, goal below 140/90 TAKE ONE TABLET BY MOUTH ONCE DAILY 90 Tablet 3 05/14/2023 Active Losartan Potassium 25 MG Oral Tablet (Cozaar)Indications: PAD (peripheral artery disease) ([facility]),Coronary artery disease involving [place] coronary artery of [place] heart without angina pectoris TAKE ONE TABLET [...] use disorder,Coronary artery disease involving [place] coronary artery of [place] heart without angina pectoris Inject 140 mg [...] OPD, group D, by GOLD 2017 classification ([facility]) Take 1 Capsule by mouth [...] PD, group D, by GOLD 2017 classification ([facility]) Inhale 1 Puff by mouth in the morning and 1 Puff before bedtime. 60 Each 12 09/06/2023 Active Naloxone HCl 4 MG/0.1ML Nasal Liquid (Narcan Nasal) Administer 1 spray into 1 nostril for suspected opioid overdose. Seek immediate medical attention. [email or web address] 1 Each 3 09/15/2023 Active Additional Information Patient not taking.Reported on 09/18/2023 Tamsulosin HCl 0.4 MG Oral Capsule (Flomax) [...] as of this encounter (statuses as of 10/05/2023) Active Problems Problem Noted Date Diagnosed Date [...] fibrillation 09/22/2021 Atherosclerotic heart diseas e of [place] coronary artery with other forms of angina pectoris 09/22/2021 Tobacco dependence 03/07/2021 Adjustment disorder with anxious mood 03/07/2021 Biventricular ICD (implantab le cardioverter-defibrillator) in place 12/23/2020 LBBB (left bundle branch block) 11/22/2020 Chronic systolic HF (heart failure) 11/22/2020 Controlled substance agreement signed 09/02/2020 Coronary artery disease invo lving [place] coronary artery of [place] heart without angina pectoris 07/06/2020 Chronic systolic [...] untreated, BMI 43.71 kg/m, NECK: 21 inches, [place] 6/24, sent for bipap titration study 01/11/11 case per [facility] completed ICD-10 update of inactive term BMI 35-39 ISOLATED (SEE ACTUAL BMI) 01/17/2010 Overview: Per Obesity Protocol, #19 BPH without obstruction/lower urinary tract symp toms 08/19/2009 Dyslipidemia, goal LDL below 70 07/21/2009 Overview: Per Lipid Taxonomy. CHR ISCHEMIC HRT DIS NOS documented as of this encounter (statuses as of 10/05/2023) Resolved Problems Problem Noted Date Diagnosed Date [...] Osteoarthritis of knee 09/23/201305/17 [employer] Other*[id number] 04/23/2012 09/12/2016 Overview: Study Title: Genomic Markers for Patients with Cardiovascular Disease Project # [id number] Financial Compliance Manager: Comfort Aviles MD [phone] Impotence of organic origin 02/16/2011 01/10/2018 Shortness [...] as of this encounter (statuses as of 10/05/2023) Immunizations Name Administration Dates Next Due COVID-19 [...] do you have serious difficulty h earing? No-GRAYL[place] 11/14/2019 Are you blind or do you [...] Care Team (Latest Contact Info) Description 10/08/2023 7:00 AM EST Hospital Encounter [facility]S Waiting [facility], Cardiac Recovery Suite Waiting Unit, [address] [facility] [place] [address] The[facility] Wilkes [facility] [address] [facility] [address] 10/08/2023 7:00 AM EST - 10/08/2023 8:00 AM EST Surgery CRS Waiting [facility], Cardiac Recovery Suite Waiting Unit, [address] [place] [address] Thea Wilkes MD [address] [place] [address] CORONARY ANGIOGRAPHY W/LEFT HEART CATH 10/08/2023 7:00 AM EST Office Visit Cardiology [facility], [place] [address] [place] [address] [facility] Cardiac Recovery [facility] [address] [place] [address] 10/12/2023 2:50 PM EST Office Visit [facility] [address] [place] [address] Buster Jessica MD [address] [place] [phone] 10/16/2023 11:30 AM EDT Office Visit Podiatry [address] [place] [phone] Willard Mejia, DPM [address] [place], [place] [phone] 10/26/2023 1:30 PM EDT Office Visit [address] [phone] Buster Jessica MD [address] [place] [address] 10/29/2023 2:30 PM EDT Imaging Radiology [facility] [address] [facility] [place] [address] 10/29/2023 3:00 PM EDT Office Visit Pulmonary Medicine, [facility] [address] [facility] [place] [address] Ej Noble MD [address] [place] [address] 11/21/2023 10:55 AM EDT Hospital Encounter OR [facility], Operating Room [facility] [address] [place] [phone] Freeman Beaulieu, DO [address] [place] [phone] 11/21/2023 10:55 AM EDT - 11/21/2023 11:20 AM EDT Surgery OR [facility], Operating Room [facility] [address] [place] [phone] Freeman Beaulieu, DO [address] [place] [phone] INJECTION SACROILIAC JOINT 04/22/2024 9:30 AM EDT Cardiac Studies Cardiology, [facility] [address] [place] [address] [employer] [facility] [facility] [address] [place] [address] 05/19/2024 9:30 AM EDT Appointment Radiology, [address] [phone] Scheduled Procedures Name Priority Associated Diagnoses Date/Ti me CORONARY ANGIOGRAPHY W/LEFT HEART CATH Acute systolic heart failure (HCC) 10/08/2023 7:00 AM EST INJECTION SACROILIAC JOINT Inflammation of sacroiliac joint (HCC) 11/21/2023 10:55 AM EDT COLONOSCOPY FLEXIBLE PROXIMAL DIAGNOSTIC Recall History of colon polyps Health Maintenance Due Date Last Done Comments *ADVANCE DIRECTIVE NOT ON FILE 05/28/2019 COVID-19 Vaccine ( season) 2023 11/08/2020, 10/08/2020 Influenza Vaccine (FLU shot) (#1) 2023 05/11/2022, 06/09/2021, 04/13/2020, Additional history exists DISCUSS TOBACCO CESSATION (REFER TO SMARTSET #3139) 06/02/2023 06/02/2022, 07/21/2020 Depression, Most Recent Score >= 10 (will fire each visit until score < 10) 08/30/2023 08/29/2023 O2 ASSESSMENT COMPLETED IN PAST YEAR FOR COPD 09/27/2024 09/27/2023 COLONOSCOPY-EVERY 5 YRS AGES 18-100 10/28/2027 10/27/2022, 04/21/2014, 04/21/2014, Additional history exists DTaP,Tdap,and Td Vaccines (3 - Td or Tdap) 04/13/2030 04/13/2020 (Declined), 08/19/2009 Alpha-1 Antitrypsin Completed 02/19/2020 Pneumococcal Vaccine: 65+ Years Completed 05/27/2020, 12/02/2018, 09/10/2008 LUNG CANCER SCREENING - USE SMARTSET 22461 Completed 08/22/2022, 05/22/2022, 02/21/2021, Additional history exists [...] encounter Medical Devices Implanted Type Area Computer Animator Device Identifier Shelf Expiration Date Model / Serial / Lot 32mm X 109mm, Zenith Fenestrated Aaa Endovascular Proximal Body Graft, Two Proximal Internal Stent Implanted:Qty: 1 on 04/15/2018 by Evens Hoyt MD at OR [facility] N/A: Aorta COOK [employer] 03/20/2021 ZFEN-P-2- [id number] / / [id number] Stent Graft [id number] - [id number] - [id number] Implanted:Qty: 1 on 04/15/2018 by Evens Hoyt MD at OR [facility] Right: Renal Artery GETINGE : MAQUET 11/30/2020 [id number] / [id number] / [id number] Stent Graft [id number] - [id number] - [id number] Implanted:Qty: 1 on 04/15/2018 by Evens Hoyt MD at OR [facility] Right: Renal Artery GETINGE : MAQUET 11/30/2020 [id number] / [id number] / [id number] 28mm X 76mm Distal, 12mm Ipsilateral Leg, Zenith Fenestrated Aaa Endovascular Distal Bifurcated Body Graft Implanted:Qty: 1 on 04/15/2018 by Evens Hoyt MD at OR [facility] N/A: Aorta [employer] 03/20/2021 ZFEN-D-12 -[id number] / / [id number] Graft Iliac Leg Spirlz 26a64pc - [id number] Implanted:Qty: 1 on 04/15/2018 by Evens Hoyt MD at OR [facility] Left: Iliac [employer]OOK [employer] 09/14/2020 [id number] / / [id number] Graft Iliac Leg Spirlz [id number] - [id number] Implanted:Qty: 1 on 04/15/2018 by Evens Hoyt MD at OR [facility] Right: Iliac [employer]OOK [employer] 11/09/2020 [id number] / / [id number] Transfixation Pin 6mm 294.950 - [id number] Implanted:Qty: 1 on 11/14/2019 by Mayank Friedman MD at OR [facility] Right: Ankle SYNTHES 294.950 / / Description:transfixation pi n Screw Schanz [id number] - [id number] Implanted:Qty: 2 on 11/14/2019 by Mayank Friedman MD at OR [facility] Right: Leg Lower SYNTHES 294.786SH A / / Description:self drilling sh antz screws 5.0mm x 200mm [place] Trauma 2.7 Lock Screw 16mm Implanted:Qty: 2 on 11/27/2019 by Donavan Ramirez Jr., MD at OR [facility] Right: Ankle ESTHELA : TRAUMA [id number] / / Description:hardware set [place] Trauma 2.7 Lock Screw 14mm Implanted:Qty: 1 on 11/27/2019 by Donavan Ramirez Jr., MD at OR [facility] Right: Ankle ESTHELA : TRAUMA [id number] / / [place]hela Trauma 3.5 Screw 14mm Implanted:Qty: 1 on 11/27/2019 by Donavan Ramirez Jr., MD at OR [facility] Right: Ankle ESTHELA : TRAUMA [id number] / / Description:hardware set [place] Trauma 3.5 Screw 18mm Implanted:Qty: 1 on 11/27/2019 by Donavan Ramirez Jr., MD at OR [facility] Right: Ankle ESTHELA : TRAUMA [id number] / / Description:hardware set [place]hela 3.5 Lockscrew 16mm Implanted:Qty: 1 on 11/27/2019 by Donavan Ramirez Jr., MD at OR [facility] Right: Ankle [id number] / / Esthela 2.0 Plate Implanted:Qty: 1 on 11/27/2019 by Donavan Ramirez Jr., MD at OR [facility] Right: Ankle [id number] / / [place] 2.0 Lock Screw Implanted:Qty: 2 on 11/27/2019 by Donavan Ramirez Jr., MD at OR [facility] Right: Ankle [id number] / / [place] 2.0 Lock Screw Implanted:Qty: 1 on 11/27/2019 by Donavan Ramirez Jr., MD at OR [facility] Right: Ankle [id number] / / [place] 2.0 Lock Screw Implanted:Qty: 1 on 11/27/2019 by Donavan Ramirez Jr., MD at OR [facility] Right: Ankle [id number] / / Plate Fib 5h 40- - [id number] Implanted:Qty: 1 on 11/27/2019 by Donavan Ramirez Jr., MD at OR [facility] Right: Ankle ESTHELA : TRAUMA / / Description:hardware set documented as of this encounter Procedures Procedure Name Priority Date/Time Associated Diagnosis Comments CARDIOLOGY SCANNED RESULT 10/05/2023 documented in this encounter Results * CARDIOLOGY SCANNED RESULT (10/05/2023) 10/05/2023 Donavan GALLOWAY documented in this encounter Advance Directives Latest [...] patient have Health Care Power of Senior Network Engineer? No Full Code 02/17/2019 12:06 PM 02/18/2019 1:09 PM This order reflects the patients wishes and were consensually agreed upon. Question Answer Comments Discussion of Advance Directives occurred with: Not Discussed Does the patient have a Living Will? No Does the patient have Health Care Power of Senior Network Engineer? No Full Code 04/15/2018 12:43 PM 04/16/2018 2:43 PM This order reflects the patients wishes and were consensually agreed upon. Care Teams Concrete Craftsman Relationship Specialty Start Date End Date Buster Jessica MD [address] [place] [phone] PCP - General Family Medicine 09/11/22 documented as of this encounter
[2023-12-11] MEDS: TAMSULOSIN HCL 0.4 MG CAP PO SCH (20:47)
--- NOTE | 2023-12-12 04:56 | Electrocardiogram Report ---
Test Reason : Blood Pressure : / mmHG Vent. Rate : 091 BPM Atrial Rate : 094 BPM P-R Int : 000 ms QRS Dur : 138 ms QT Int : 400 ms P-R-T Axes : 000 -61 104 degrees QTc Int : 492 ms Ventricular-paced rhythm Abnormal ECG When compared with ECG of 04-OCT-2023 06:31, Vent. rate has increased BY 10 BPM Confirmed by Oliver Rebolledo ([id number]) on 12/12/2023 4:56:00 AM Referred By: REFERRED SELF Confirmed By:Oliver Rebolledo
[2023-12-12 06:18] LABS: Basophils # (auto) 0.01 K/uL (0.00-0.20); Basophils % (auto) 0.1 %; Eosinophils # (auto) 0.01 K/uL (0.00-0.50); Eosinophils % (auto) 0.1 %; Hematocrit (blood only) 27.4 % (42.0-52.0); Immature Granulocytes # (auto) 0.06 K/uL (0.01-0.20); Immature Granulocytes % (auto) 0.6 %; Lymphocytes % (auto) 10.2 %; Mean Corpuscular Hemoglobin 28.8 pg (25.0-34.0); Mean Corpuscular Hgb Conc 32.8 g/dL (32.0-36.0); Mean Corpuscular Volume 87.8 fL (80.0-100.0); Mean Platelet Volume 11.1 fL (9.4-12.4); Monocytes # (auto) 0.56 K/uL (0.11-0.59); Monocytes % (auto) 5.2 %; Neutrophils # (auto) 9.01 K/uL (1.40-6.50); Neutrophils % (auto) 83.8 %; Platelet Count 249 K/uL (130-400); RDW Coefficient of Variation 15.9 % (11.5-14.5); RDW Standard Deviation 50.1 fL (36.4-46.3); Red Blood Count 3.12 M/uL (4.70-6.10); White Blood Count 10.75 K/ul (4.8-10.8)
[2023-12-12 06:43] LABS: BUN Creatinine Ratio 18.9 (10-20); Calcium 8.4 mg/dl (8.6-10.3); Creatinine Clr Calc Pharmacy 72.7 ml/min; Est GFR (African American) 75.4 ml/min; Est GFR (Non-African American) 65.1 ml/min; Potassium 4.1 mmol/L (3.5-5.1)
[2023-12-12] MEDS: CLOPIDOGREL BISULFATE 75 MG TAB PO SCH (08:56)
--- NOTE | 2023-12-12 12:19 | Cardiology Progress Note ---
Date of Service December 12, 2023 Assessment & Plan (1) Acute alteration in mental status: (2) Acute hypotension: (3) Ischemic cardiomyopathy with implantable cardioverter-defibrillator (ICD): (4) Persistent atrial fibrillation: (5) Hypotension: Plan Stable cardiac signs and symptoms. No angina/evidence of ischemia. Volume status is euvolemic. Heart rates acceptably controlled on metoprolol succinate 25 mg twice per day raising concern for compliance with medications prior to arrival. Recommendations: Continue metoprolol succinate at 25 mg twice per day If additional heart rate control is needed would consider gradual up titration of metoprolol, or resumption of digoxin if hypotensive Resume Eliquis anticoagulation, 5 mg twice per day, when able Continue clopidogrel. Hold torsemide, spironolactone, and losartan; these will likely need to be gradually reintroduced at lower lower doses initially post discharge Please contact with any questions or concerns Recommend close follow-up postdischarge I spent a total of 35 minutes on the date of service in preparation, delivery, and documentation of the care provided to this patient excluding any time spent in the performance of separately billed services. This visit was a split-shared visit with the substantive portion of the medical decision making performed by the supervising circuit judge/billing provider. Admission and Anticipated Discharge Date Admission Date: December 11, 2023 Supervising Physician Co-Signing Physician Notes Patient was seen and personally examined. Chart inpatient and outpatient reviewed. Full assessment and plan as outlined by advanced provider above. Agree and endorse with plans and recommendations Patient now awake and oriented today. Little recollection of the day prior Multiple drug overlap and interactions with resultant symptoms Hypotension resolved Plan and recommendations as above. Contact with question I spent a total of 15 minutes on the date of service in preparation, delivery, and documentation of the care provided to this patient excluding any time spent in the performance of separately billed se Subjective Patient seen and examined. Chart, medications, telemetry reviewed. Much more alert, alert and oriented x 3. Patient attributes presenting issues to pain medicine as this has happened in the past on multiple occasions. No chest pain. No palpitations. No unusual shortness of breath. Telemetry: Ventricular paced rhythm in the 80s, underlying atrial fibrillation, controlled ventricular response. Occasional PVCs. Device interrogation on December 11, 2023 demonstrated appropriate function, 3.7 years remaining longevity. BiV pacing 86% of the time. Persistent atrial fibrillation observed since August 2023, with mildly elevated ventricular rates. OptiVol currently below threshold. Review of Systems Review of Systems: Complete review of systems is as stated above, negative, or noncontributory. Physical Exam Physical Exam: General: A&Ox3. NAD. HENT: Normocephalic. Atraumatic. Eyes: PER. Conjunctiva pink, sclera clear. Neck: No JVD. Heart: Regular, paced. Lungs: Clear to auscultation. Abdomen: +BS. Soft. Nontender. No masses or organomegaly. Extremities: No significant edema. Limited neurological examination is without focal deficits. Results & Data Vital Signs (Past 12 Hours) Vital Signs Temp Pulse Pulse Resp BP Pulse Ox Pulse Ox 12/12/23 11:42 36.7 C 94 H 22 123/85 97 12/12/23 08:03 36.8 C 97 H 20 130/81 97 12/12/23 07:00 66 12/12/23 03:29 36.7 C 83 20 98/62 L 98 12/12/23 03:25 96 O2 Del Method O2 Del Method 12/12/23 11:42 Room Air 12/12/23 08:03 Room Air 12/12/23 07:00 12/12/23 03:29 Room Air 12/12/23 03:25 Room Air Laboratory Results CBC 12/12/23 Range/Units 05:20 WBC 10.75 (4.8-10.8) K/ul RBC 3.12 L (4.70-6.10) M/uL Hgb 9.0 L (14.0-18.0) g/dl Hct 27.4 L (42.0-52.0) % Plt Count 249 (130-400) K/uL Neut # (Auto) 9.01 H (1.40-6.50) K/uL Lymph # (Auto) 1.10 L (1.20-3.40) K/uL Dukes # (Auto) 0.56 (0.11-0.59) K/uL Eos # (Auto) 0.01 (0.00-0.50) K/uL Baso # (Auto) 0.01 (0.00-0.20) K/uL Comprehensive Metabolic Panel 12/12/23 Range/Units 05:20 Sodium 136 (136-145) mmol/L Potassium 4.1 (3.5-5.1) mmol/L Chloride 98 (98-107) mmol/L Carbon Dioxide 28 (21-32) mmol/L BUN 21 (6-23) mg/dl Creatinine 1.11 (0.6-1.4) mg/dl Glucose 137 H (70-99(Fasting)) mg/dl Calcium 8.4 L (8.6-10.3) mg/dl Intake and Output 12/11/23 12/12/23 12/12/23 22:59 06:59 14:59 Intake Total 700 / 1100 300 / 1100 Output Total 300 / 1150 250 / 1150 Balance 400 / -50 50 / -50 Intake: Oral 700 / 1100 300 / 1100 Output: Urine 300 / 1150 250 / 1150 Other: Weight 120.854 kg Weight Measurement Method Built in [facility]
--- NOTE | 2023-12-12 15:07 | Discharge Summary ---
Date of Service December 12, 2023 Admission HPI Per Admitting Provider History obtained from patient, family, and records. Limited history from patient secondary to lethargy and hearing impairment. Medical history significant for chronic systolic heart failure secondary to ischemic cardiomyopathy (EF 35%, TTE 2023) status post ICD, CAD status post stent, trace TR, history LBBB, PVD status post surgery, A. fib on Eliquis, COPD, BRIAN (BiPAP intolerance as per records), chronic anemia (baseline hemoglobin of 11), anxiety/mood disorder, gout, sacroiliitis, skin cancer as per records, ongoing tobacco abuse Multiple admissions in the last 3 months. 10/03-10/04 [facility] confinement for COPD exacerbation, finger gout status post steroid Rx. 11/01-11/02 [facility] admission for gout attack. Patient discharged on steroid course. 12/04 -12/06 [facility] admission for hypotension, diarrhea, and weakness, and ARF. Serum creatinine on admission noted to be 2. Blood pressure and kidney function improved with IVF. Patient prednisone and Zaroxolyn discontinued on discharge. Patient discharged on new torsemide prescription. Patient intermittently sleepy and spacing out at home as per . Noted to be weak and pale by family. No witnessed seizures. Patient denies headache, chest pain, SOB, abdominal pain. Denies black/bloody stools. Chronic back pain for which patient takes baclofen. Fall from bed resulting in bruising on the left forearm. Patient taking leftover Vicodin and baclofen at home for left forearm pain as per . Patient combines medications without checking with the physicians as per . Intermittently sleepy and spacing out at home as per family. Patient still hypotensive at home as per home nurse account. Patient brought to ER for evaluation. SBP 70s upon arrival at the ER. 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 Admission Exam Per Admitting Provider GENERAL: Slightly uncomfortable, lethargic, restless, hard of hearing, morbidly obese SKIN: Pallor, warm HEENT: Alopecia, pale palpebral conjunctivae, no ptosis, dry buccal mucosa NECK : Supple, short neck, no tenderness CHEST : Decreased breath sounds, no tenderness HEART : Diminished S1-S2, RRR, no obvious murmurs ABDOMEN: Some distention, nontender RECTAL : Intact sphincter, dark stool (FOBT negative) EXTREMITIES : Bilateral l LE swelling, no LE tenderness, tender ecchymosis left forearm NEUROLOGIC : Lethargic, no facial asymmetry, hard of hearing, gait and stance not assessed Principal Diagnosis Hypotension Likely polypharmacy Discharge Exam Constitutional: AOX 3; comfortable Respiratory: normal respiratory effort, lungs clear to auscultation, no wheeze, rales, rhonchi. Normal insp/exp effort, no accessory muscle use Cardiovascular: RRR, no murmur, no edema Vessels: no JVD or carotid bruit Chest: normal inspection of chest Abdomen: normal bowel sounds, soft, nontender, no hepatosplenomegaly Musculoskeletal: no cyanosis or clubbing, extremities motor strength 5/5 Skin: no rashes, warm and dry normal turgor Neurologic: PERRL, EOMI, accommodation nl, no face palsy, no dysarthria CN's II- XI intact bilaterally and moves all extremities Psychiatric: A+Ox3, euthymic affect Discharge Data Allergies Allergy/AdvReac Type Severity Reaction Status Date / Time sacubitril [From Entresto] Allergy Severe THROAT Verified 12/10/23 23:28 SWELLING valsartan [From Entresto] Allergy Severe THROAT Verified 12/10/23 23:28 SWELLING atorvastatin [From Lipitor] AdvReac Intermediate Muscle Pain Verified 12/10/23 23:28 simvastatin AdvReac Intermediate Muscle Pain Verified 12/10/23 23:28 Consultations 12/11/23 01:36 ED Decision to Admit Stat 12/11/23 03:35 Consult Cardiology Routine Ordered Studies 12/10/23 22:45 CT abd pelvis IV con only Stat CT head/brain wo con Stat US venous doppler UE LT Stat 12/11/23 02:40 CT forearm LT wo con Stat Hospital Course (1) Hypotension: (2) Acute kidney injury: Plan 73-year-old male with PMH of CAD status post stent, ischemic cardiomyopathy[EF 35% TTE 2023] status post ICD, chronic systolic congestive heart failure, persistent atrial fibrillation on Eliquis, LBBB, HLD, COPD, ongoing tobacco use, obesity, BRIAN [BiPAP intolerance as per records], PAD status post surgery, anxiety/mood disorder, gout, sacroiliitis, skin cancer presented to the ED 12/10 with complaint of intermittently sleepy and is spacing out at home as per patient's at presentation. Noted to be weak and pale by the family. No witnessed seizure. No bloody or black stools noted. Had fall from the bed resulting in bruising on the left forearm. Patient noted to be hypotensive at home. On presentation to the ED, he was found to be hypotensive. He was started on IV fluids. Random cortisol was obtained which was within normal limits. Cardiology was consulted for comanagement. Patient was on multiple antihypertensive medication including metoprolol, losartan, spironolactone, torsemide. He was also taking baclofen and opioids for the knee pain. The hypotensive episode was thought likely secondary to multiple medications that he was on. WALDEMAR improved with IV hydration. Metoprolol was continued at a lower dose of 25 mg twice a day. Other antihypertensives were discontinued at discharge. The goal is to resume the medication gradually as outpatient. Patient was able to walk on the hallways independently without any issue. Patient was discharged home with instruction to follow-up with PCP and cardiology. Please note the above document was generated using voice recognition software. It may contain grammatical, syntax or spelling errors. Any formal questions or concerns about the content, text or information contained within the body of this dictation should be directly addressed to the provider for clarification Total Time Total Time Spent Total Time Spent (In Minutes): 35 Total Time Includes: Examination of the Patient, Discharge Planning, Medication Reconciliation, Communication With Other Providers and Other Discharge Plan Discharge Items Patient Disposition: Home - Self-Care Reason For Visit: HYPOTENSION Discharge Diagnosis: Hypotension Polypharmacy Activity: Resume your previous activity Non-emergency contact: Primary Care Provider Call non-emergency contact if: you have any medication questions and your symptoms worsen Follow-up/Referrals: Buster Anguiano MD [Primary Care Provider] - (Date & Time 12/13/2023 9:50 AM Provider Buster Jessica MD Department [facility] ) Diet: Regular Addtl Attending Provider Instructions: You were admitted to the hospital due to low blood pressure. You were evaluated by gas treater during the hospitalization. They recommend following medication to be on hold for now: Digoxin Losartan Spironolactone Torsemide Baclofen Vicodin The dose of metoprolol has been decreased to 25 mg twice a day. The reduced dose medication is sent to your pharmacy. If your blood pressure started to rise up; reintroduction of the medication should be done by your primary care doctor or gas treater. A follow-up has been set up with your primary care doctor Pending Studies at Discharge: No Stand-Alone Forms: My [facility] Lexy, Smoking Cessation Medications and DC Order Prescriptions: New metoprolol succinate 25 mg Tablet Extended Release 24 Hr 25 mg PO BID Qty: 60 0RF Continued tamsulosin [Flomax] 0.4 mg capsule 0.8 mg PO QPM Patient Comments: QAM clopidogrel [Plavix] 75 mg tablet 75 mg PO QAM famotidine 20 mg Tablet 20 mg PO BID Repatha SureClick 140 mg/mL Pen Injector 140 mg SUBCUT UD Rx Instructions: every 14 days fluticasone propion-salmeterol 250-50 mcg/dose blister with device 1 inh INHALATION Q12H potassium chloride 10 mEq tablet extended release 20 meq PO QAM Hold Instructions: Resume on 10/09/23. Resume after cardio or PCP evaluation on Sunday or Sunday Patient Comments: HS Eliquis 5 mg tablet 5 mg PO BID aripiprazole 2 mg tablet 2 mg PO QAM desvenlafaxine succinate 100 mg tablet extended release 24 hr 100 mg PO QAM ascorbic acid (vitamin C) [Vitamin C] 1,000 mg Tablet 1 g PO QAM albuterol sulfate 2.5 mg /3 mL (0.083 %) solution for nebulization 2.5 mg inhalation Q4H PRN (Reason: Wheezing) allopurinol 100 mg tablet 200 mg PO QAM omega-3 acid ethyl esters 1 gram Capsule 2 cap PO BID naloxone 4 mg/actuation [place],Non-Aerosol 4 mg INTRANASAL DIRECTED PRN (Reason: Opioid Overdose) Discontinued metoprolol succinate 100 mg tablet extended release 24 hr 100 mg PO QAM Patient Comments: TAKES QAM spironolactone 25 mg tablet 25 mg PO QAM Hold Instructions: Resume on 10/09/23. Resume after cardio or PCP evaluation on Sunday or Sunday Patient Comments: QAM losartan 25 mg tablet 25 mg PO QAM Hold Instructions: Resume on 10/09/23. Resume after cardio or PCP evaluation on Sunday or Sunday Rx Instructions: PER PT'S SPOUSE "WILL STOP 12/11/23, NO LONGER TO TAKE". metoprolol succinate 50 mg tablet extended release 24 hr 50 mg PO HS digoxin 125 mcg (0.125 mg) tablet 125 mcg PO QAM torsemide 10 mg tablet 50 mg PO QAM baclofen 20 mg Tablet 20 mg PO TID PRN (Reason: MUSCLE SPASMS) hydrocodone-acetaminophen 7.5-325 mg tablet 1 tab PO Q6H PRN (Reason: Pain) Admission Data Admit Date/Time: 12/11/23 02:44 Attending Provider: Nicholas No Admit Provider: Armando San Primary Care Provider: Buster Anguiano Other Providers: Armando San; Iman Palmer; Donavan Barker; Dustin Frankel; Mayank Saldaña; Jayesh Youngblood; Yaakov Garner; Mahi Albright; Ev Avila; Gladys Chavez; Iman Lui; Kiran Aranda; David Solano; Dorinda Ortiz; Gretel Hedrick; Sheila Kuhn; Isrrael Hall; Harvinder Schofield; Merlene Courtney
--- NOTE | 2023-12-13 16:16 | Communication Note ---
Date of Service: December 13, 2023 Code 44 attestation: By CMS guidelines, a determination that the admission or continued stay is not medically necessary has been made by a member of the UR committee and a physician for this hospital stay, therefore a Code 44 will be completed and the Inpatient admission will be changed to outpatient. Dr Shereen Chang member UR Committee
== END 2023-12-12 17:26 | disposition home or self-care (01) ==
LOC: ED 21:56 → SUATTDRO 12-11 02:44 → INTOOBSV 12-11 02:44 → EDINP 12-11 02:44 → 2E 12-11 15:00